=== PATIENT | female | born 1955 | race Caucasian/White ===

== ENCOUNTER 2020-03-07 13:30 | Outpatient (CLI) | payer OTHER, SELFPAY ==
--- NOTE | ~2020-03-07 | XR_ITS ---
EXAMINATION: XR chest 2V 03/07/2020 15:03 INDICATION: Shortness of breath. Hypertension. PROCEDURE: 2 view chest COMPARISON: 10/31/2005 FINDINGS: The lungs are clear. The cardiomediastinal silhouette is within normal limits. There are no pleural effusions. There is no pneumothorax suspected. IMPRESSION: 1: NO ACUTE CARDIOPULMONARY DISEASE. Reviewed, dictated and finalized at location A.
--- NOTE | ~2020-03-07 | US_ITS ---
EXAMINATION:US venous doppler LE BI INDICATION:Leg edema TECHNIQUE: Multiple grayscale, color flow and Doppler images of the lower extremity deep venous syste ms were obtained and reviewed. COMPARISON:No prior studies for comparison. FINDINGS: The common femoral, superficial femoral and popliteal veins demonstrate normal respiratory variation, augmentation and compressibility. Color flow is also seen within the posterior tibial, pe roneal, greater saphenous and profunda veins. IMPRESSION: 1: No lower extremity deep venous thrombosis. Reviewed, dictated and finalized at location A.
== END 2020-03-07 13:31 | disposition home or self-care (01) ==
PROVIDERS: Visit Provider Registered Nurse
DX: R06.02 Shortness of breath (principal); I10 Essential (primary) hypertension; R60.0 Localized edema
CPT/HCPCS: 71046; 93970

== ENCOUNTER 2021-05-19 13:01 | Emergency (ER) | payer OTHER, SELFPAY ==
--- NOTE | ~2021-05-19 | XR_ITS ---
EXAMINATION: XR chest 2V DATE: 05/19/2021 14:03 INDICATION: Shortness of breath. TECHNIQUE: Frontal and lateral views of the chest were obtained. COMPARISON: Chest 2 views 03/07/2020 FINDINGS: There is no pneumonia, pleural effusion, or pneumothorax. Cardiomegaly is noted. IMPRESSION: 1. Cardiomegaly. Reviewed, dictated and finalized at location B. IMPRESSION: 1. Cardiomegaly.
[2021-05-19 12:59] VITALS: BP 150/50; PULSE 57; RESP 20; TEMP 36.8; O2SAT 100
--- NOTE | 2021-05-19 13:07 | ECG_ITS ---
Measurements Intervals [place] Rate: 54 P: [place]: 0 QRS: 34 QRSD: 98 T: -3 QT: 477 QTc: 455 Interpretive Statements SINUS BRADYCARDIA MINIMAL Q WAVES- INFERIOR LEADS BASELINE ARTIFACT- I, II, III, AVR, AVL, AVF, V1-V6 BORDERLINE ECG Electronically Signed On 05-19-2021 13:58:55 CDT by Harsha Leblanc D.O.
--- NOTE | 2021-05-19 13:30 | ED.SOB ---
HPI - SOB/Dyspnea General Chief Complaint: Shortness of Breath/Dyspnea Stated Complaint: SOB/CHEST PRESSURE Time Seen by Provider: 05/19/21 13:28 Source: patient and EMS Mode of arrival: EMS Limitations: no limitations History of Present Illness HPI Narrative: The patient is a 66 yo male who presents for evaluation of dyspnea and leg swelling. Patient reports a history of hypertension, hyperlipidemia, states she has been diagnosed with double pneumonia and has recovered from that, did not require hospitalization. States that this was never diagnosed as Covid, was managed outpatient by her primary care physician. Patient states that she has had epigastric chest pain over the past 3 months as well as worsening shortness of breath over the past few days. She reports bilateral leg swelling without redness or bruising. She is not on any current anticoagulation. She denies recent fever, chills or rhinorrhea. Patient is not vaccinated for Covid. She states that she recently had an abnormal ALLYSON titer drawn her primary care physician and is waiting to follow-up with rheumatology. Related Data Home Medications Medication Instructions Recorded Confirmed atorvastatin 10 mg PO DAILY 05/19/21 05/19/21 escitalopram oxalate 20 mg PO DAILY 05/19/21 05/19/21 furosemide 20 mg PO DAILY 05/19/21 05/19/21 metoprolol succinate 50 mg PO DAILY 05/19/21 05/19/21 oxybutynin chloride 5 mg PO DAILY 05/19/21 05/19/21 potassium chloride 10 meq PO DAILY 05/19/21 05/19/21 Allergies Allergy/AdvReac Type Severity Reaction Status Date / Time Sulfa (Sulfonamide Allergy Mild RASH ALL Verified 05/19/21 13:16 Antibiotics) OVER Penicillins Allergy Unknown RASH ALL Verified 05/19/21 13:16 OVER Review of Systems Review of Systems: CONSTITUTIONAL: Denies fever, chills, or sweats. EYES: Denies visual changes, redness, or discharge. ENT: Denies rhinorrhea, congestion, sore throat, or otalgia. CARDIOVASCULAR: Reports lower chest pain, epigastric pain, denies palpitations, reports bilateral lower extremity edema RESPIRATORY: Denies cough, reports shortness of breath, worse with exertion GASTROINTESTINAL: Denies abdominal pain, nausea, vomiting, or diarrhea. GENITOURINARY: Denies dysuria or hematuria. SKIN: Denies rash or itching. MUSCULOSKELETAL: Denies back pain, joint pain, or myalgia. NEUROLOGIC: Denies headache, numbness, or weakness. [facility] Social History Social History Gender identity (if verbalized by the patient): Female Exam Narrative: GENERAL: Awake, alert, conversant HEAD: Normocephalic, atraumatic. EYES: PERRLA and EOMI. ENT: Nares clear, no rhinorrhea or epistaxis. Mucous membranes moist. NECK: Supple. CHEST: No respiratory distress, breathing even and non labored, no crackles HEART: Regular rate, sinus rhythm ABDOMEN:Non distended, non tender EXTREMITIES: Normal range of motion. Bilateral pitting edema, 1+ to the mid shins, no calf pain or erythema bilaterally SKIN: Warm, dry, no rash. NEURO:No focal deficits. Alert and oriented x3 Course Vital Signs Vital signs: Vital Signs Temperature 36.8 C 05/19/21 12:59 Pulse Rate 57 L 05/19/21 12:59 Respiratory Rate 20 05/19/21 12:59 Blood Pressure 150/50 H 05/19/21 12:59 Pulse Oximetry 100 05/19/21 12:59 Temperature 36.8 C 05/19/21 12:59 Pulse Rate 52 L 05/19/21 15:42 Respiratory Rate 20 05/19/21 15:42 Blood Pressure 150/50 H 05/19/21 12:59 Pulse Oximetry 96 05/19/21 15:42 MDM - SOB/Dyspnea MDM Narrative Medical decision making narrative: Patient presenting for evaluation of shortness of breath that is resolved at the time of assessment. Patient also reporting bilateral edema and she was seen at a primary care physician's office and referred to our facility for DVT rule out. At this point, D-dimer is negative. BNP is mildly elevated but no pleural effusions or evidence of significant pulmonary edema on chest x-ray. No consolidating process or
[2021-05-19 14:15] LABS: INR 0.9; Prothrombin Time 12.5 Seconds (11.1-14.7)
[2021-05-19 14:32] LABS: Anion Gap 6 mmol/L (8-16); Blood Urea Nitrogen 19 mg/dL (7-17); Calcium 9.6 mg/dL (8.4-10.2); Carbon Dioxide 25 mmol/L (22-30); Chloride 106 mmol/L (98-107); Estimated CRCL calculation 60 ml/min; Estimated Glomerular Filt Rate > 60; Glucose 100 mg/dL (65-110); Potassium 3.3 mmol/L (3.4-5.0); Sodium 137 mmol/L (137-145)
[2021-05-19 14:33] VITALS: PULSE 50; RESP 10; O2SAT 97
[2021-05-19 14:41] LABS: Troponin I < 0.012 ng/mL (0.000-0.034)
[2021-05-19 14:56] LABS: NT Pro B Type Natriuretic Pept 713 pg/mL (5-100)
[2021-05-19 15:08] LABS: D Dimer 0.47 ug/mL (<0.48)
[2021-05-19 15:31] LABS: Basophils Absolute Auto 0.1 K/mm3 (0.0-0.1); Basophils Percent Auto 0.5 % (0.2-1.2); Eosinophils Absolute Auto 0.2 K/mm3 (0-0.3); Eosinophils Percent Auto 1.6 % (0-4.4); Hematocrit 34.8 % (37.0-47.0); Hemoglobin 10.9 g/dL (12.0-15.0); Immature Granulocyte Absolute 0.04 K/mm3 (0.00-0.031); Immature Granulocyte Percent A 0.3 % (0-0.5); Lymphocytes Absolute Auto 3.37 K/mm3 (0.9-3.2); Mean Corpuscular HGB Conc 31.3 g/dl (32-36); Mean Corpuscular Hemoglobin 27.9 pg (26-34); Mean Corpuscular Volume 89.2 fl (80-100); Monocytes Absolute Auto 0.8 K/mm3 (0.1-0.6); Monocytes Percent Auto 6.7 % (2.6-8.5); Neutrophils Absolute Auto 7.6 K/mm3 (1.3-6.7); Neutrophils Percent Auto 62.9 % (45.5-73.1); Platelet Count Result 223 k/mm3 (150-375); Red Cell Distribution Width 13.6 % (11.5-14.5); White Blood Count 12.1 K/mm3 (4.5-10.0)
[2021-05-19 15:42] VITALS: PULSE 52; RESP 20; O2SAT 96
== END 2021-05-19 16:33 | disposition home or self-care (01) ==
PROVIDERS: Emergency Medicine; Emergency Provider Emergency Medicine
DX: R60.9 Edema, unspecified (principal); R06.00 Dyspnea, unspecified
CPT/HCPCS: 36415; 71046; 80048; 83880; 84484; 85025; 85380; 85610; 85730; 93005; 99284

== ENCOUNTER 2021-10-11 14:36 | Emergency (ER) | payer MEDICARE, SELFPAY ==
[2021-10-11] VITALS (9 sets, daily range): BP systolic 117–148; BP diastolic 52–86; PULSE 64–77; RESP 18–24; TEMP 37; O2SAT 95–98
--- NOTE | ~2021-10-11 | XR_ITS ---
EXAMINATION: XR chest 1V portable INDICATION: Shortness of breath, COVID 19 positive TECHNIQUE: Portable AP chest at 1520 hours COMPARISON: 05/19/2021 FINDINGS: There are airspace opacities throughout all lung zones. Cardiomegaly is noted. There is no pleural effusion or pneumothorax. IMPRESSION: 1. Diffuse lung disease, consistent with COVID 19 pneumonia. 2. Cardiomegaly. 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
--- NOTE | ~2021-10-11 | CT_ITS ---
EXAMINATION: CTA chest PE protocol DATE: 10/11/2021 18:16 INDICATION: Shortness of breath TECHNIQUE: Computed tomography angiography (CTA) of the chest was performed with 100 mL Omnipaque-350 intravenous contrast timed to evaluate the pulmonary arteries. Coronal maximum intensity projection 3D-reconstructions were created by the technologist. The dose-length product (DLP) was 718.53 mGy-cm. Automated exposure control and iterative reconstruction technique were employed. COMPARISON: None. FINDINGS: The pulmonary arteries are moderately well-opacified. No pulmonary embolus is identified. T here are groundglass opacities scattered throughout all lung zones. No pleural effusion or pneumothor ax is identified. There is mild mediastinal and bilateral hilar lymphadenopathy. Cardiomegaly is note d. There is calcified coronary artery atherosclerosis. There is a small sliding hiatal hernia. There is moderate thoracic spondylosis. IMPRESSION: 1. No pulmonary embolus identified. 2. Diffuse lung disease, consistent with COVID 19 pneumonia. 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
[2021-10-11 15:25] LABS: Basophils Percent Auto 0.2 % (0.2-1.2); Hematocrit 35.7 % (37.0-47.0); Hemoglobin 11.6 g/dL (12.0-15.0); Immature Granulocyte Absolute 0.02 K/mm3 (0.00-0.031); Immature Granulocyte Percent A 0.4 % (0-0.5); Lymphocytes Percent Auto 37.8 % (18.3-44.2); Mean Corpuscular HGB Conc 32.5 g/dl (32-36); Mean Corpuscular Hemoglobin 27.9 pg (26-34); Mean Corpuscular Volume 85.8 fl (80-100); Mean Platelet Volume 9.4 fl (7.4-10.4); Monocytes Absolute Auto 0.5 K/mm3 (0.1-0.6); Monocytes Percent Auto 9.4 % (2.6-8.5); Neutrophils Absolute Auto 2.6 K/mm3 (1.3-6.7); Neutrophils Percent Auto 52.2 % (45.5-73.1); Platelet Count Result 157 k/mm3 (150-375); Red Blood Count 4.16 M/mm3 (4.2-5.4); Red Cell Distribution Width 14.8 % (11.5-14.5)
[2021-10-11 15:35] LABS: Alanine Aminotransferase 19 U/L (4-35); Albumin Level 4.1 g/dL (3.5-5.1); Alkaline Phosphatase 69 U/L (38-126); Anion Gap 8 mmol/L (8-16); Aspartate Amino Transferase 34 U/L (14-36); Bilirubin,Total 1.3 mg/dL (0.2-1.3); Blood Urea Nitrogen 24 mg/dL (7-17); Calcium 8.8 mg/dL (8.4-10.2); Carbon Dioxide 23 mmol/L (22-30); Chloride 101 mmol/L (98-107); Estimated CRCL calculation 46 ml/min; Estimated Glomerular Filt Rate 45; Glucose 111 mg/dL (65-110); Potassium 4.3 mmol/L (3.4-5.0); Sodium 132 mmol/L (137-145)
[2021-10-11] MEDS: SODIUM CHLORIDE 0.9% IV 1,000 ML 999 ML IV CONT ×2 (15:50→18:30)
[2021-10-11 17:03] LABS: Add Urine Microscopic? NO; Appearance Urine Clear (Clear); Bilirubin Urine Negative (Negative); Blood Urine Negative (Negative); Color Urine Yellow (Yellow); Glucose Urine UA Negative (Negative); Ketones Urine Negative (Negative); Leukocyte Esterase Ur Negative LEU/UL (Negative); Nitrate Urine Negative (Negative); Protein Urine Negative (Negative); Specific Grav Ur 1.016 (1.001-1.035); Urobilinogen Urine Negative mg/dL (<2.0)
[2021-10-11 17:08] LABS: Lactic Acid Reflex 0.7 mmol/L (0.7-2.1)
[2021-10-11 17:30] LABS: D Dimer 0.49 ug/mL (<0.48)
[2021-10-11 18:11] LABS: Procalcitonin 0.2 ng/mL
--- NOTE | 2021-10-11 19:20 | PC.NURSE ---
Assumed care of pt at this time. Pt ambulated to bathroom in no obvious distress. Updated on POC.
--- NOTE | 2021-10-11 19:20 | PC.NURSE ---
Report given to ARTEMIO Ribeiro
--- NOTE | 2021-10-11 20:01 | ED.GENADULT ---
HPI - General Adult General Chief complaint: Upper Respiratory Infection Stated complaint: COVID Time Seen by Provider: 10/11/21 14:57 Source: patient and RN notes reviewed Mode of arrival: ambulatory Limitations: no limitations History of Present Illness HPI narrative: Patient is a 66-year-old female sent over from primary care PE mask for COVID symptoms patient was diagnosed with COVID the prior day was having follow-up today had repeat chest radiograph showing pneumonia was referred to the emergency department given that she kept falling asleep and there was concern for hypoxemia on arrival patient is not hypoxemic on room air she complains of fatigue and COVID symptoms denies chest pain notes short of breath lives at home with family. Patient was not vaccinated Related Data Home Medications Medication Instructions Recorded Confirmed atorvastatin 10 mg PO DAILY 05/19/21 05/19/21 escitalopram oxalate 20 mg PO DAILY 05/19/21 05/19/21 furosemide 20 mg PO DAILY 05/19/21 05/19/21 metoprolol succinate 50 mg PO DAILY 05/19/21 05/19/21 oxybutynin chloride 5 mg PO DAILY 05/19/21 05/19/21 potassium chloride 10 meq PO DAILY 05/19/21 05/19/21 Allergies Allergy/AdvReac Type Severity Reaction Status Date / Time Sulfa (Sulfonamide Allergy Mild RASH ALL Verified 10/11/21 14:42 Antibiotics) OVER Penicillins Allergy Unknown RASH ALL Verified 10/11/21 14:42 OVER Review of Systems Review of Systems: All systems reviewed & are unremarkable except as noted in HPI and below PMFSH Past Medical History Medical History (Updated 10/11/21 @ 20:39 by Misha Bloom PA-C) Hypertension Social History Social History (Updated 10/11/21 @ 20:36 by Misha Bloom PA-C) Smoking status: Never smoker Gender identity (if verbalized by the patient): Female Exam Narrative: GENERAL: ill-appearing, well-nourished, and in no acute distress. HEAD: Normocephalic, atraumatic. EYES: PERRLA and EOMI. ENT: Nares clear, no rhinorrhea or epistaxis. Mucous membranes moist. Oropharynx without tonsillar hypertrophy exudate or other lesions. NECK: Supple. No adenopathy or masses. CHEST: Clear to auscultation. No respiratory distress. Slight crackles in the lung bases no wheezing HEART: Regular rate and rhythm. No murmur heard. Normal peripheral pulses. ABDOMEN: Soft, nontender, nondistended, normal active bowel sounds. EXTREMITIES: Normal range of motion. No edema. SKIN: Warm, dry, no rash. NEURO: No focal deficits. Alert and oriented x3. Cranial nerves II through XII grossly intact. Normal speech and gait PSYCH: Normal mood and affect. Course Course Emergency Course: Patient was able to ambulate without becoming hypoxic she upon return to the room also maintains an oxygenation of 95% on room air there is no tachycardia she is afebrile nontoxic-appearing without emesis she will be discharged home with outpatient follow-up given strict indications for return she is aware of case findings treatment plan and diagnosis Vital Signs Vital signs: Vital Signs Temperature 98.6 F 10/11/21 14:46 Pulse Rate 77 10/11/21 14:46 Respiratory Rate 22 H 10/11/21 14:46 Blood Pressure 148/60 H 10/11/21 14:46 Pulse Oximetry 98 10/11/21 14:46 Temperature 98.6 F 10/11/21 14:46 Pulse Rate 71 10/11/21 19:25 Respiratory Rate 20 10/11/21 19:25 Blood Pressure 128/66 10/11/21 19:25 Pulse Oximetry 97 10/11/21 19:25 Medical Decision Making MDM Narrative Medical decision making narrative: Patient in the room nondistressed aware of case findings treatment plan diagnosis CTA did not reveal any pulmonary embolism there was some COVID-pneumonia she otherwise does not have other high risk changes she was hydrated she has been able to maintain normal oxygenation and will be discharged home given strict indications for return Vital Signs Vital Signs: Vital Signs Temperature 98.6 F 10/11/21 14:46 Pulse Rate 77 10/11
--- NOTE | 2021-10-11 20:20 | PC.NURSE ---
Pt walked in virgen with pulse ox. Pt Spo2 96% during walk. Pt did have coughing fit where pt Spo2 dropped to 90%. Pt was able to recover to 96% after sitting down on bed. EDP made aware.
== END 2021-10-11 21:40 | disposition home or self-care (01) ==
PROVIDERS: Emergency Medicine Emergency Medical Services; Emergency Provider Emergency Medicine
DX: U07.1 COVID-19 (principal); J12.82 Pneumonia due to coronavirus disease 2019; I10 Essential (primary) hypertension
CPT/HCPCS: 36415; 71045; 71275; 80053; 81003; 83605; 84145; 85025; 85380; 96361; 96374; 99284; J1100; J7030; Q9967

== ENCOUNTER 2022-02-14 17:22 | Emergency (ER) | payer MEDICARE, SELFPAY ==
[2022-02-14 17:31] VITALS: BP 142/93; PULSE 91; RESP 20; TEMP 37; O2SAT 100
[2022-02-14 18:53] LABS: Appearance Urine Clear (Clear); Bilirubin Urine Negative (Negative); Blood Urine 1+ (Negative); Color Urine Yellow (Yellow); Glucose Urine UA Negative (Negative); Ketones Urine Negative (Negative); Leukocyte Esterase Ur 1+ LEU/UL (Negative); Nitrate Urine Negative (Negative); Protein Urine Negative (Negative); Specific Grav Ur 1.015 (1.001-1.035); Urobilinogen Urine 0.2 mg/dL (<2.0)
[2022-02-14 18:57] LABS: Bacteria Urine Trace /hpf; Mucus Urine Rare /lpf; RBC Urine 0-2 /hpf (0-2); Squamous Epithelial Cell Urine Few /hpf (Few)
[2022-02-14 19:00] LABS: Add Urine Microscopic? YES
--- NOTE | 2022-02-14 19:19 | ED.FEMALEGU ---
HPI - Female Genitourinary General Chief complaint: Vaginal Bleeding <Lore Zafar PA-C - Last Filed: 02/15/22 02:21> Stated complaint: vaginal bleeding <Lore Zafar PA-C - Last Filed: 02/15/22 02:21> Time Seen by Provider: 02/14/22 18:27 <Lore Zafar PA-C - Last Filed: 02/15/22 02:21> History of Present Illness HPI Narrative: Patient is a 67-year-old female with a history of hysterectomy 70s here for evaluation of bleeding in the toilet tissue when she wipes. Patient states for the past 2 days she has noted bright red blood per tissue, and noted drips in the toilet bowl. Patient denies any blood mixed in her stool, pain with defecation, constipation, diarrhea, abdominal pain, dysuria, hematuria. She did not she has some very mild left low back pain that resolved with Tylenol. Patient has never had a colonoscopy, she has taken two FOBT screening tests in the past decade, one of which has resulted positive, but she did not have follow-up on this test. Does note an intentional 20 pound weight loss with the keto diet, but denies night sweats, history of malignancy. <ED Veliz Last Filed: 02/15/22 02:21> Related Data Home medications: Home Medications Medication Instructions Recorded Confirmed atorvastatin 10 mg PO DAILY 05/19/21 05/19/21 escitalopram oxalate 20 mg PO DAILY 05/19/21 05/19/21 furosemide 20 mg PO DAILY 05/19/21 05/19/21 metoprolol succinate 50 mg PO DAILY 05/19/21 05/19/21 oxybutynin chloride 5 mg PO DAILY 05/19/21 05/19/21 potassium chloride 10 meq PO DAILY 05/19/21 05/19/21 <Lore Zafar PA-C - Last Filed: 02/15/22 02:21> Allergies/Adverse reactions: Allergies Allergy/AdvReac Type Severity Reaction Status Date / Time Sulfa (Sulfonamide Allergy Mild RASH ALL Verified 02/14/22 18:30 Antibiotics) OVER Penicillins Allergy Unknown RASH ALL Verified 02/14/22 18:30 OVER <Lore Zafar PA-C - Last Filed: 02/15/22 02:21> Review of Systems Review of Systems: Gen: Denies fevers or chills Eyes: Denies eye pain or visual change ENT: Denies congestion Respiratory: Denies shortness of breath or cough CV: Denies chest pain or palpitations GI: Denies abdominal pain nausea, emesis or diarrhea : Reports bleeding on toilet tissue. Denies burning, urgency, frequency or hematuria Musculoskeletal: Denies back pain or muscle pain Neuro: Denies numbness, tingling, weakness or focal weakness Skin: Denies rash Except as documented, all other systems reviewed and negative <Lore Zafar PA-C - Last Filed: 02/15/22 02:21> All systems reviewed & are unremarkable except as noted in HPI and below <Lore Zafar PA-C - Last Filed: 02/15/22 02:21> [facility] Past Medical History Medical History: Medical History Hypertension <Lore Zafar PA-C - Last Filed: 02/15/22 02:21> Social History Social History: Social History Smoking status: Never smoker Gender identity (if verbalized by the patient): Female <Lore Zafar PA-C - Last Filed: 02/15/22 02:21> Exam Narrative: APPEARANCE: No acute distress, nontoxic, resting in bed EYES: EOMI HEENT: Normocephalic, atraumatic, OMM RESPIRATORY: No respiratory distress Clear to auscultation bilaterally with no rhonchi wheezing or rales. CARDIOVASCULAR: Regular rate and rhythm without murmurs rubs or gallops. ABDOMINAL: Soft, nontender, nondistended, no rebound or guarding MUSCULOSKELETAl: No midline tenderness to palpation along CT or L-spine. No paraspinal muscle tenderness. No CVA tenderness. Moves all extremities. No clubbing, cyanosis or edema. 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 Hemoccult negative. No external hemorrhoid. No blood noted in vaginal vault. NEURO: Awake and alert. Following commands, speech
[2022-02-14 19:32] LABS: Basophils Absolute Auto 0.1 K/mm3 (0.0-0.1); Basophils Percent Auto 0.6 % (0.2-1.2); Eosinophils Absolute Auto 0.3 K/mm3 (0-0.3); Eosinophils Percent Auto 2.2 % (0-4.4); Hematocrit 35.9 % (37.0-47.0); Hemoglobin 11.3 g/dL (12.0-15.0); Immature Granulocyte Absolute 0.03 K/mm3 (0.00-0.031); Immature Granulocyte Percent A 0.3 % (0-0.5); Lymphocytes Absolute Auto 3.68 K/mm3 (0.9-3.2); Lymphocytes Percent Auto 32.7 % (18.3-44.2); Mean Corpuscular HGB Conc 31.5 g/dl (32-36); Mean Corpuscular Hemoglobin 28.3 pg (26-34); Mean Corpuscular Volume 89.8 fl (80-100); Mean Platelet Volume 9.6 fl (7.4-10.4); Monocytes Absolute Auto 0.9 K/mm3 (0.1-0.6); Monocytes Percent Auto 7.8 % (2.6-8.5); Neutrophils Absolute Auto 6.3 K/mm3 (1.3-6.7); Neutrophils Percent Auto 56.4 % (45.5-73.1); Platelet Count Result 235 k/mm3 (150-375); Red Cell Distribution Width 13.9 % (11.5-14.5); White Blood Count 11.3 K/mm3 (4.5-10.0)
[2022-02-14 19:49] LABS: INR 1.1
[2022-02-14 20:25] LABS: Alanine Aminotransferase 16 U/L (6-35); Albumin Level 4.3 g/dL (3.5-5.1); Alkaline Phosphatase 81 U/L (38-126); Anion Gap 10 mmol/L (8-16); Aspartate Amino Transferase 30 U/L (14-36); Bilirubin,Total 0.8 mg/dL (0.2-1.3); Blood Urea Nitrogen 44 mg/dL (7-17); Calcium 9.5 mg/dL (8.4-10.2); Carbon Dioxide 25 mmol/L (22-30); Chloride 104 mmol/L (98-107); Estimated CRCL calculation 34 ml/min; Estimated Glomerular Filt Rate 32; Glucose 110 mg/dL (65-110); Potassium 4.9 mmol/L (3.4-5.0); Sodium 139 mmol/L (137-145)
[2022-02-14 21:34] VITALS: BP 137/73; PULSE 72; RESP 18; O2SAT 99
== END 2022-02-14 21:38 | disposition home or self-care (01) ==
PROVIDERS: Emergency Medicine; Physician Assistant; Emergency Provider Emergency Medicine; PCP Student in an Organized Health Care Education/Training Program
DX: N39.0 Urinary tract infection, site not specified (principal); I10 Essential (primary) hypertension; Z90.710 Acquired absence of both cervix and uterus
CPT/HCPCS: 36415; 80053; 81001; 85025; 85610; 85730; 87077; 87086; 87186; 99283

== ENCOUNTER → 2023-09-24 12:21 | Outpatient (CLI) | payer OTHER, SELFPAY ==
--- NOTE | ~2023-09-24 | MM_ITS ---
EXAMINATION: MM screening hong BI w karen HISTORY: Screening mammogram TECHNIQUE: Craniocaudal and mediolateral oblique 3-D tomosynthesis images were obtained and synthetic 2-D images were generated. CAD analysis was submitted and interpreted. COMPARISON: No prior mammogram is available for comparison at this institution. BREAST PARENCHYMAL COMPOSITION: The breasts are almost entirely fatty. FINDINGS: Occasional bilateral benign calcifications. There is no evidence of suspicious mass, calcif ication, or architectural distortion to suggest malignancy in either breast. There has been no suspic ious interval change. IMPRESSION: 1. No mammographic evidence of malignancy. 2. Recommend routine screening mammography in one year. 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
== END ==
PROVIDERS: PCP Student in an Organized Health Care Education/Training Program; Visit Provider Student in an Organized Health Care Education/Training Program
DX: Z12.31 Encounter for screening mammogram for malignant neoplasm of breast (principal)
CPT/HCPCS: 77063; 77067

== ENCOUNTER 2024-01-03 10:36 | Emergency (ER) | payer MEDICARE, SELFPAY ==
[2024-01-03] VITALS (11 sets, daily range): BP systolic 141–176; BP diastolic 75–92; PULSE 72–105; RESP 14–19; TEMP 36.7–36.8; O2SAT 97–100
--- NOTE | ~2024-01-03 | CT_ITS ---
EXAMINATION: CT brain wo con DATE: 01/03/2024 13:36 INDICATION: Headache with confusion TECHNIQUE: Computed tomography (CT) of the head was performed without intravenous contrast. Sagittal and coronal reconstructions were performed. The mA was adjusted according to patient size. Iterative reconstruction technique was employed. The dose-length product was 681.00 mGy-cm. COMPARISON: None FINDINGS: No acute intracranial hemorrhage, acute infarction or abnormal extra axial fluid collection. There is mild scattered white matter hypoattenuation consistent with chronic small vessel ischemic disease. S ymmetric prominence of the sulci and and subarachnoid spaces overlying the convexities consistent wit h mild age-appropriate diffuse cerebral volume loss. Ventricles are normal and symmetric. No mass/mas s effect. Right mastoid effusion. Changes of bilateral intraocular lens replacement. Mild mucosal thi ckening the left ethmoid sinus and small mucous retention cyst in the right sphenoid sinus. IMPRESSION: 1. No acute intracranial process. 2. Right mastoid effusion. Reviewed, dictated and finalized at location A.
--- NOTE | ~2024-01-03 | XR_ITS ---
XR chest 2V DATE: 01/03/2024 11:01 INDICATION: Shortness of breath and cough for several weeks TECHNIQUE: 2 views COMPARISON: 10/11/2021 CTA chest and 10/11/2021 portable AP chest and not available from the archive at this time FINDINGS: Heart size is within normal range. Is aortic calcification and unfolding. No hilar or media stinal enlargement. No pulmonary infiltrate or consolidation, pleural effusion or pulmonary vascular congestion or pneumo thorax is detected. Included skeletal structures are unremarkable. IMPRESSION: No active cardiac pulmonary disease Aortic atherosclerosis Reviewed, dictated and finalized at location B.
--- NOTE | 2024-01-03 10:39 | ECG_ITS ---
Measurements Intervals [place] Rate: 87 P: 22 MI: 205 QRS: 45 QRSD: 96 T: 70 QT: 385 QTc: 466 Interpretive Statements SINUS RHYTHM NONSPECIFIC ST & T-WAVE ABNORMALITY ABNORMAL ECG COMPARED TO ECG 05/19/2021 13:13:45 INCREASED HEART RATE, NO OTHER SIGNIFICANT DIFFERENCE Electronically Signed On 01-03-2024 12:34:16 CDT by Moo Longo M.D.
[2024-01-03] MEDS: ASPIRIN 81 MG CHEWABLE TABLET 324 MG PO (10:49)
[2024-01-03 10:57] LABS: Basophils Absolute Auto 0.1 K/mm3 (0.0-0.1); Basophils Percent Auto 0.4 % (0.2-1.2); Eosinophils Absolute Auto 0.2 K/mm3 (0-0.3); Eosinophils Percent Auto 1.5 % (0-4.4); Hematocrit 37.8 % (37.0-47.0); Hemoglobin 11.8 g/dL (12.0-15.0); Immature Granulocyte Absolute 0.05 K/mm3 (0.00-0.031); Immature Granulocyte Percent A 0.4 % (0-0.5); Lymphocytes Absolute Auto 2.98 K/mm3 (0.9-3.2); Lymphocytes Percent Auto 24.9 % (18.3-44.2); Mean Corpuscular HGB Conc 31.2 g/dl (32-36); Mean Corpuscular Hemoglobin 27.2 pg (26-34); Mean Corpuscular Volume 87.1 fl (80-100); Mean Platelet Volume 9.7 fl (7.4-10.4); Monocytes Absolute Auto 0.6 K/mm3 (0.1-0.6); Monocytes Percent Auto 5.2 % (2.6-8.5); Neutrophils Absolute Auto 8.1 K/mm3 (1.3-6.7); Neutrophils Percent Auto 67.6 % (45.5-73.1); Platelet Count Result 210 k/mm3 (150-375); Red Blood Count 4.34 M/mm3 (4.2-5.4); Red Cell Distribution Width 14.4 % (11.5-14.5)
[2024-01-03 11:07] LABS: INR 0.9; Prothrombin Time 12.7 Seconds (11.1-14.7)
[2024-01-03 11:10] LABS: Lipase 86 U/L (23-300)
[2024-01-03 11:11] LABS: Partial Thromboplastin Time 28.4 Seconds (22.3-36.8)
[2024-01-03 11:15] LABS: Alanine Aminotransferase 20 U/L (6-35); Albumin Level 4.1 g/dL (3.5-5.1); Alkaline Phosphatase 86 U/L (38-126); Anion Gap 9 mmol/L (4-12); Aspartate Amino Transferase 23 U/L (14-36); Blood Urea Nitrogen 22 mg/dL (7-17); Calcium 9.2 mg/dL (8.4-10.2); Carbon Dioxide 25 mmol/L (22-30); Chloride 105 mmol/L (98-107); Estimated CRCL calculation 58 ml/min; Estimated Glomerular Filt Rate > 60; Glucose 128 mg/dL (65-110); Potassium 3.8 mmol/L (3.4-5.0); Sodium 139 mmol/L (137-145)
[2024-01-03 11:23] LABS: Troponin I < 0.012 ng/mL (0.000-0.034)
[2024-01-03] MEDS: IPRATROPIUM 0.5 MG/ALBUTEROL SULFATE 2.5 MG AMPUL.NEB 3 ML 12 ML INHALATION (13:40)
[2024-01-03] MEDS: dexAMETHasone SOD PHOS INJ 10 MG/ML 1 ML VIAL IV PUSH (13:55)
[2024-01-03] MEDS: MAGNESIUM SULF 2 GM/WATER 50ML 2 GM/50 ML BAG IVPB (13:55)
--- NOTE | 2024-01-03 13:56 | ED.GENADULT ---
HPI - General Adult General Chief complaint: Shortness of Breath/Dyspnea Stated complaint: sob Time Seen by Provider: 01/03/24 12:56 Limitations: intoxication History of Present Illness HPI narrative: This is a 68-year-old female presenting with shortness of breath. She says she has had a cough for about 9 weeks. her primary care physician is treated with a course of antibiotics and started her on breathing treatments which she believes has started to help. Today while she was at work, she started eating lunch and she developed a headache in the back her head. She then became very flushed, anxious, and had shortness breath, and sharp chest pain. this all resolved without intervention. All symptoms have since resolved she is resting comfortably in bed. She is concerned she may have had a stroke Related Data Home Medications Medication Instructions Recorded Confirmed atorvastatin 10 mg tablet 10 mg PO DAILY 05/19/21 05/19/21 escitalopram oxalate 20 mg tablet 20 mg PO DAILY 05/19/21 05/19/21 furosemide 20 mg tablet 20 mg PO DAILY 05/19/21 05/19/21 metoprolol succinate 50 mg 50 mg PO DAILY 05/19/21 05/19/21 tablet,extended release 24 hr oxybutynin chloride 5 mg 5 mg PO DAILY 05/19/21 05/19/21 tablet,extended release 24 hr potassium chloride 10 mEq 10 meq PO DAILY 05/19/21 05/19/21 tablet,extended release Allergies Allergy/AdvReac Type Severity Reaction Status Date / Time Sulfa (Sulfonamide Allergy Mild RASH ALL Verified 02/14/22 18:30 Antibiotics) OVER Penicillins Allergy Unknown RASH ALL Verified 02/14/22 18:30 OVER [facility] Past Medical History Medical History Asthma Hypertension Social History Social History Smoking status: Never smoker Gender identity (if verbalized by the patient): Female Exam Narrative: APPEARANCE: No apparent distress. Head: atraumatic. EYES: EOMI, NOSE: Atraumatic NECK: Trachea midline RESPIRATORY: speaking in full sentences, scattered wheezing in all cristobal CARDIOVASCULAR: RRR, no peripheral edema ABDOMINAL: Non-distended MUSCULOSKELETAl: No obvious deformities NEURO: Alert. Cranial nerves 2-12 grossly intact. Sensation light touch, motor function cerebellar function intact for 4 extremities. Gait exam was normal. NIH 0 SKIN:: Warm, dry. Normal color PSYCHIATRIC: Normal affect Course Vital Signs Vital signs: Vital Signs Temperature 98.1 F 01/03/24 10:39 Pulse Rate 94 01/03/24 10:39 Respiratory Rate 18 01/03/24 10:39 Blood Pressure 167/78 H 01/03/24 10:39 Pulse Oximetry 97 01/03/24 10:39 Oxygen Delivery Room Air 01/03/24 10:39 Temperature 98.1 F 01/03/24 10:39 Pulse Rate 79 01/03/24 15:00 Respiratory Rate 14 01/03/24 15:00 Blood Pressure 176/92 H 01/03/24 13:15 Pulse Oximetry 100 01/03/24 15:00 Oxygen Delivery Room Air 01/03/24 13:06 Medical Decision Making MDM Narrative Medical decision making narrative: -Course: This is a 68-year-old female presenting with shortness of breath and then a short period of blurry vision/flushing/chest pain/ shortness of breath that resolved without intervention. On exam the patient was wheezy and was given a breathing treatment. Her neurologic exam is normal and she has an NIH of 0. No vision changes. Patient's workup here including CT head, laboratory studies troponin EKG and chest x-ray were unremarkable. On re-evaluation the patient feels better And is asymptomatic. At this time there is an unknown etiology of her episode. Presentation is not consistent with TIA/CVA. We discussed admission versus discharge patient is comfortable being discharged to follow up with her primary care physician. patient would like a note stating she can return to work. Given return precautions. -DDX includes but is not limited to: asthma exacerbation, anxiety attack, TIA,
--- NOTE | 2024-01-03 14:06 | ECG_ITS ---
Measurements Intervals [place] Rate: 83 P: 16 MS: 198 QRS: 32 QRSD: 98 T: 53 QT: 410 QTc: 482 Interpretive Statements SINUS RHYTHM WITH OCCASIONAL SUPRAVENTRICULAR PREMATURE COMPLEXES NONSPECIFIC T-WAVE ABNORMALITY COMPARED TO ECG 01/03/2024 10:42:09 NO SIGNIFICANT CHANGES Electronically Signed On 01-04-2024 13:18:55 CDT by Antonella Arellano M.D.
[2024-01-03 14:29] LABS: Troponin I < 0.012 ng/mL (0.000-0.034)
[2024-01-03 14:44] LABS: Influenza A QL RT-PCR Negative (Negative); Influenza B QL RT-PCR Negative (Negative); RSV RNA, RT-PCR Negative (Negative); SARS-CoV-2 RNA PCR Negative (Negative)
== END 2024-01-03 16:23 | disposition home or self-care (01) ==
PROVIDERS: Emergency Medicine; Emergency Provider Emergency Medicine; PCP Student in an Organized Health Care Education/Training Program
DX: R07.89 Other chest pain (principal); R23.2 Flushing; R06.00 Dyspnea, unspecified; I10 Essential (primary) hypertension; J45.909 Unspecified asthma, uncomplicated; Z20.822 Contact with and (suspected) exposure to COVID-19
CPT/HCPCS: 36415; 70450; 71046; 80053; 83690; 84484; 85025; 85610; 85730; 87637; 93005; 94640; 96365; 96366; 96375; 99284; A9270; J1100; J3475

== ENCOUNTER 2024-09-14 05:39 | Emergency (ER) | payer MEDICARE, SELFPAY ==
--- NOTE | ~2024-09-14 | XR_ITS ---
XR chest 2V Ordering provider: Carlos Alberto Ching III, DO History: 69 years Female with . cough . Comparison: January 03, 2024 FINDINGS: MEDIASTINUM: The cardiac silhouette is not enlarged. LUNGS: No infiltrates, effusions or pneumothorax. OTHER: No free air under the diaphragm. Degenerative changes of the spine. IMPRESSION: No acute cardiopulmonary pathology. Reviewed, dictated and finalized at location [facility]
[2024-09-14 05:48] VITALS: BP 170/55; PULSE 73; RESP 16; TEMP 36.6; O2SAT 96
[2024-09-14 05:57] VITALS: RESP 18; O2SAT 98
[2024-09-14 06:54] VITALS: BP 154/62; PULSE 63; RESP 18; O2SAT 98
--- NOTE | 2024-09-14 07:28 | ED_ITS ---
HPI - General Adult General Chief complaint: Unspecified Stated complaint: I hurt everywhere i feel sick Time Seen by Provider: 09/14/24 07:11 History of Present Illness HPI narrative: Pt presents with aches all over and tightness in neck and mild cough. Pt denies fever. Pt has some dysuria. Pt deniew vomiting. Pt has mild MACHUCA. Related Data Home Medications ?Medication ?Instructions ?Recorded ?Confirmed ?Last Taken ?Type atorvastatin 10 mg tablet 10 mg PO DAILY 05/19/21 05/19/21 Unknown History escitalopram oxalate 20 mg tablet 20 mg PO DAILY 05/19/21 05/19/21 Unknown History furosemide 20 mg tablet 20 mg PO DAILY 05/19/21 05/19/21 Unknown History metoprolol succinate 50 mg 50 mg PO DAILY 05/19/21 05/19/21 Unknown History tablet,extended release 24 hr oxybutynin chloride 5 mg 5 mg PO DAILY 05/19/21 05/19/21 Unknown History tablet,extended release 24 hr potassium chloride 10 mEq 10 meq PO DAILY 05/19/21 05/19/21 Unknown History tablet,extended release Allergies Allergy/AdvReac Type Severity Reaction Status Date / Time Sulfa (Sulfonamide Allergy Mild RASH ALL Verified 09/14/24 08:20 Antibiotics) OVER Penicillins Allergy Unknown RASH ALL Verified 09/14/24 08:20 OVER Review of Systems 2 Review of Systems: All systems reviewed & are unremarkable except as noted in HPI and below PMFSH Past Medical History Medical History Asthma Hypertension Social History Social History Smoking status: Never smoker Gender identity (if verbalized by the patient): Female Exam 2 Const: General: cooperative, healthy appearing and no acute distress HENMT: Head: normal to inspection Mouth: Yes Normal oral and palatal mucosa present Throat: posterior oropharynx normal Neck: Neck: normal visual inspection, no lymphadenopathy and no meningeal signs Resp: Effort & Inspection: normal respiratory effort Auscultation: clear to auscultation bilaterally Cardio: Rate: regular rate Rhythm: regular rhythm GI: GI Palp: No abdominal tenderness Auscultation: normal bowel sounds Skin: General skin exam: normal color and no rashes or lesions noted Neuro: General: patient oriented x3, moves all extremities and no focal motor deficits Cranial nerves: Yes CN's II-XII intact bilaterally Extrem: General: normal to inspection and full ROM Psych: Appearance: grossly normal Mental Status: mental status grossly normal Speech and movement: Normal speech and movement present Affect: n ormal affect Attitude: cooperative Thought process: Normal thought process present Course Vital Signs Vital signs: Vital Signs Temperature 97.8 F 09/14/24 05:48 Pulse Rate 73 09/14/24 05:48 Respiratory Rate 16 09/14/24 05:48 Blood Pressure 170/55 H 09/14/24 05:48 Pulse Oximetry 96 09/14/24 05:48 Oxygen Delivery Room Air 09/14/24 05:48 Temperature 97.8 F 09/14/24 05:48 Pulse Rate 60 09/14/24 09:15 Respiratory Rate 15 09/14/24 09:15 Blood Pressure 140/67 09/14/24 09:15 Pulse Oximetry 97 09/14/24 09:15 Oxygen Delivery Room Air 09/14/24 05:48 Medical Decision Making [facility] Narrative Medical decision making narrative: Pt presents with body aches and some neck tightness. will check some labs and covid flu and cxr and ua. pt has uti swabs and labs ok. home on antibiotics. Vital Signs Vital Signs: Vital Signs Temperature 97.8 F 09/14/24 05:48 Pulse Rate 73 09/14/24 05:48 Respiratory Rate 16 09/14/24 05:48 Blood Pressure 170/55 H 09/14/24 05:48 Pulse Oximetry 96 09/14/24 05:48 Oxygen Delivery Room Air 09/14/24 05:48 Temperature 97.8 F 09/14/24 05:48 Pulse Rate 60 09/14/24 09:15 Respiratory Rate 15 09/14/24 09:15 Blood Pressure 140/67 09/14/24 09:15 Pulse Oximetry 97 09/14/24 09:15 Oxygen Delivery Room Air 09/14/24 05:48 Lab Data 09/14/24 07:40 09/14/24 07:39 Labs: Lab Results 09/14/24 09/14/24 09/14/24 Range/Units 07:39 07:40 08:59 WBC 8.1 (4.5-10.0) K/mm3 RBC 4.11 L (4.2-5.4) M/mm3 Hgb 11.5 L (12.0-15.0) g/dL Hct 36.0 L (37.0-47.0) % MCV 87.6 (80-100) fl MCH 28.0 (26-34) pg MCHC 31.9 L (32-36) g/dl RDW 14.2 (11.5-14.5) % Plt Count 194 (150-375) k/mm3 MPV 9.7 (7.4-10.4) fl Immature Gran % (Auto) 0.1 (0-0.5) % Neut % (Auto) 52.4 (45.5-73.1) % Lymph % (Auto) 34.6 (18.3-44.2) % Rush % (Auto) 9.8 H (2.6-8.5) % Eos % (Auto) 2.5 (0-4.4) % Baso % (Auto) 0.6 (0.2-1.2) % Lymph # (Auto) 2.79 (0.9-3.2) K/mm3 Rush # (Auto) 0.8 H (0.1-0.6) K/mm3 Eos # (Auto) 0.2 (0-0.3) K/mm3 Baso # (Auto) 0.1 (0.0-0.1) K/mm3 Abs Immat Gran (auto) 0.01 (0.00-0.031) K/mm3 Absolute Neuts (auto) 4.2 (1.3-6.7) K/mm3 Absolute Nucleated RBC 0.000 (0.0-0.012) K/mm3 Nucleated RBC % 0.0 (0.0-0.2) % PT 14.6 (11.1-14.7) Seconds INR 1.1 APTT 25.7 (22.3-36.8) Seconds Sodium 142 (137-145) mmol/L Potassium 4.4 (3.4-5.0) mmol/L Chloride 110 H (98-107) mmol/L Carbon Dioxide 27 (22-30) mmol/L Anion Gap 5 (4-12) mmol/L BUN 17 (7-17) mg/dL Creatinine 1.10 H (0.7-1.0) mg/dL Estim Creat Clear Calc 47 ml/min Estimated GFR 49 L (59 - ) Glucose 102 (65-110) mg/dL Lactic Acid 0.7 (0.7-2.0) mmol/L Calcium 9.5 (8.4-10.2) mg/dL Total Bilirubin 1.3 (0.2-1.3) mg/dL AST 31 (14-36) U/L ALT 22 (6-35) U/L Alkaline Phosphatase 77 (38-126) U/L C-Reactive Protein 2.0 H (<1.0) mg/dL Total Protein 7.0 (6.3-8.2) g/dL Albumin 4.2 (3.5-5.1) g/dL Urine Color Dark yellow (Yellow) Urine Appearance Cloudy H (Clear) Urine pH 5.5 (5.0-9.0) Ur Specific [place] 1.034 (1.001-1.035) Urine Protein Trace (Negative) mg/dL Urine Glucose (UA) Negative (Negative) mg/dL Urine Ketones Trace H (Negative) mg/dL Ur Blood (Man) Negative (Negative) Urine Nitrate Negative (Negative) Urine Bilirubin Negative (Negative) Urine Urobilinogen 1.0 (<2.0) mg/dL Add Ur Microanalysis Reviewed Leukocyte Esterase Rfl 2+ H (Negative) MAILE/UL Urine RBC 0-2 (0-2) /hpf Urine WBC 21-50 H (0-3) /hpf Ur Squamous Epith Cells Moderate (Few) /hpf Ur Transition Epith Cell Few H (None Seen) /hpf Urine Bacteria Rare /hpf Urine Casts 6-10 Hyaline Casts Present (None) /lpf Urine Mucus Present /lpf Influenza A (RT-PCR) Negative (Negative) Influenza B (RT-PCR) Negative (Negative) SARS-CoV-2 RNA (RT-PCR) Negative (Negative) Discharge Plan Discharge Clinical Impression: Acute UTI Patient Disposition: Home, Self-Care Condition: Stable Instructions: Antibiotic Form, Urinary Tract Infection in Women (DC) Patient Language: Slovenian Prescriptions: New nitrofurantoin monohyd/m-cryst [Macrobid] 100 mg capsule 100 mg PO Q12H 5 Days Qty: 10 0RF Rx Instructions: must administer with a meal/food No Action albuterol sulfate 90 mcg/actuation HFA aerosol inhaler 2 puff inhalation QID PRN (Reason: shortness of breath or wheezing) Qty: 8.5 0RF benzonatate 200 mg capsule 200 mg PO ONCE Qty: 7 0RF nitrofurantoin monohyd/m-cryst [Macrobid] 100 mg capsule 100 mg PO Q12H 5 Days Qty: 10 0RF Rx Instructions: must administer with a meal/food metoprolol succinate 50 mg tablet extended release 24 hr 50 mg PO DAILY furosemide 20 mg tablet 20 mg PO DAILY escitalopram oxalate 20 mg tablet 20 mg PO DAILY atorvastatin 10 mg tablet 10 mg PO DAILY potassium chloride 10 mEq tablet extended release 10 meq PO DAILY oxybutynin chloride 5 mg tablet extended release 24hr 5 mg PO DAILY Follow-up/Referrals: Heri,DO Sami [Primary Care Provider] -
[2024-09-14 07:48] LABS: Basophils Absolute Auto 0.1 K/mm3 (0.0-0.1); Basophils Percent Auto 0.6 % (0.2-1.2); Eosinophils Absolute Auto 0.2 K/mm3 (0-0.3); Eosinophils Percent Auto 2.5 % (0-4.4); Hemoglobin 11.5 g/dL (12.0-15.0); Immature Granulocyte Absolute 0.01 K/mm3 (0.00-0.031); Immature Granulocyte Percent A 0.1 % (0-0.5); Lymphocytes Absolute Auto 2.79 K/mm3 (0.9-3.2); Lymphocytes Percent Auto 34.6 % (18.3-44.2); Mean Corpuscular HGB Conc 31.9 g/dl (32-36); Mean Corpuscular Volume 87.6 fl (80-100); Mean Platelet Volume 9.7 fl (7.4-10.4); Monocytes Absolute Auto 0.8 K/mm3 (0.1-0.6); Monocytes Percent Auto 9.8 % (2.6-8.5); Neutrophils Absolute Auto 4.2 K/mm3 (1.3-6.7); Neutrophils Percent Auto 52.4 % (45.5-73.1); Platelet Count Result 194 k/mm3 (150-375); Red Blood Count 4.11 M/mm3 (4.2-5.4); Red Cell Distribution Width 14.2 % (11.5-14.5); White Blood Count 8.1 K/mm3 (4.5-10.0)
[2024-09-14 07:57] LABS: Lactic Acid Reflex 0.7 mmol/L (0.7-2.0)
[2024-09-14 08:01] LABS: Alanine Aminotransferase 22 U/L (6-35); Albumin Level 4.2 g/dL (3.5-5.1); Alkaline Phosphatase 77 U/L (38-126); Anion Gap 5 mmol/L (4-12); Aspartate Amino Transferase 31 U/L (14-36); Bilirubin,Total 1.3 mg/dL (0.2-1.3); Blood Urea Nitrogen 17 mg/dL (7-17); Calcium 9.5 mg/dL (8.4-10.2); Carbon Dioxide 27 mmol/L (22-30); Chloride 110 mmol/L (98-107); Estimated CRCL calculation 47 ml/min; Estimated Glomerular Filt Rate 49; Glucose 102 mg/dL (65-110); Potassium 4.4 mmol/L (3.4-5.0); Sodium 142 mmol/L (137-145)
[2024-09-14 08:24] LABS: Influenza A QL RT-PCR Negative (Negative); Influenza B QL RT-PCR Negative (Negative); SARS-CoV-2 RNA PCR Negative (Negative)
[2024-09-14 08:26] LABS: INR 1.1; Prothrombin Time 14.6 Seconds (11.1-14.7)
[2024-09-14 08:29] LABS: Partial Thromboplastin Time 25.7 Seconds (22.3-36.8)
[2024-09-14 09:15] VITALS: BP 140/67; PULSE 60; RESP 15; O2SAT 97
[2024-09-14 09:15] LABS: Add Urine Microscopic? YES; Appearance Urine Cloudy (Clear); Bacteria Urine Rare /hpf; Bilirubin Urine Negative (Negative); Blood Urine Negative (Negative); Color Urine Dark Yellow (Yellow); Glucose Urine UA Negative (Negative); Hyaline Casts Urine Present /lpf; Ketones Urine Trace mg/dL (Negative); Leukocyte Esterase Ur 2+ LEU/UL (Negative); Mucus Urine Present /lpf; Need Manual Microscopic Reviewed; Nitrate Urine Negative (Negative); Protein Urine Trace mg/dL (Negative); RBC Urine 0-2 /hpf (0-2); Specific Grav Ur 1.034 (1.001-1.035); Squamous Epithelial Cell Urine Moderate /hpf (Few); WBC Urine 21-50 /hpf (0-3); pH Urine 5.5 (5.0-9.0)
[2024-09-14 09:16] LABS: Transitional Epi Cells Urine Few /hpf (None Seen)
--- OUTSIDE RECORDS SUMMARY | 2024-09-19 12:12 | XMS_ITS | Encounter Summary ---
Author Organization [facility] Address [facility]. [place], [place] [address] [place] [id number] Care Team Providers Care Anodizing Line Operator Name Role Phone Sami Gimenez DO Primary Care Provider + Reason for Visit * Reason Onset Date Comments Information 07/27/2024 Encounter Details Date Type Department Care Team (Late st Contact Info) Description 07/27/2024 Telephone [facility] Family & Internal Medicine [facility] [address] [place] [address] Sami Gimenez DO [address] [place] [id number] Information Social History Tobacco Use Types Packs/Day Years Used Date Smoking Tobacco: Former Cigarettes 0.5 12 0 09/30/1964 - 09/30/1976 Passive Smoke Exposure: Never Smokeless Tobacco: Never Alcohol Use Standard Drinks/Week Comments Not Currently 0 (1 standard drink = 0.6 oz pur e alcohol) [address] on some Sundays [facility] Utilities Answer Date Recorded In the past 12 months has e electric, gas, oil, or water company threatened to shut off services in your home? No 02/08/2024 Humiliation, Afraid, Rape, and Kick questionnair e Answer Date Recorded Within the last year, have y ou been afraid of your partner or ex-partner? No 02/08/2024 Within the last year, have y ou been humiliated or emotionally abused in other ways by your partner or ex-partner? No Within the last year, have y ou been kicked, hit, slapped, or otherwise physically hurt by your partner or ex-partner? No 02/08/2024 Within the last year, have y ou been raped or forced to have any kind of sexual activity by your partner or ex-partner? No 02/08/2024 AUDIT-C Answer Date Recorded Frequency of Alcohol Consumption 2-3 times a wee k 10/29/2019 Average Number of Drinks 1 or 2 020 Frequency of Binge Drinking Never 10/02 Overall Financial Resource Strain (CARDIA) Answe r Date Recorded How hard is it for you to pa y for the very basics like food, housing, medical care, and heating? Not hard at all 02/08/2024 PHQ-2 Answer Date Recorded Patient Health Questionnaire-2 Score 1 11/18/2023 Hunger Vital Sign Answer Date Recorded Within the past 12 months, y ou worried that your food would run out before you got the money to buy more. Never true 02/08/20 24 Within the past 12 months, t he food you bought just didn't last and you didn't have money to get more. Never true 02/08/2024 PRAPARE - Transportation Answer Date Re corded In the past 12 months, has l ack of transportation kept you from medical appointments or from getting medications? No 01/28 In the past 12 months, has l ack of transportation kept you from meetings, work, or from getting things needed for daily living? No 02/08/2024 Housing Stability Vital Sign Answer Sen e Recorded In the last 12 months, was t here a time when you were not able to pay the mortgage or rent on time? No 02/08/2024 In the past 12 months, how m any times have you moved where you were living? 1 02/08/2024 At any time in the past 12 m [facility], were you homeless or living in a prison (including now)? 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 Answer Date of Assessment Author Status No 02/08/2024 12:30 AM CDT Christa Hodgson RN Active * Do you have serious difficulty walking or climbing stairs? Answer Date of Assessment Author Status No 02/08/2024 12:30 AM CDT Christa Hodgson RN Active * Do you have difficulty dressing or bathing? Answer Date of Assessment Author Status No 02/08/2024 12:30 AM CDT Christa Hodgson RN Active * Because of a physical, mental, or emotional condition, do you have difficulty doing errands alone such as visiting a doctor's office or shopping? Answer Date of Assessment Author Status No 02/08/2024 12:30 AM CDT Christa Hodgson RN Active documented as of this encounter Mental Status * Because of a physical, mental, or emotional condition, do you have serious difficulty concentrating, remembering, or making decisions? Answer Entry Date Author Status No 02/08/2024 12:30 AM CDT Christa Hodgson RN Active documented in this encounter Progress Notes * Saloni Nguyen MA - 07/27/2024 4:33 PM CDT Pt is aware, and thanks Dr. Gimenez. * Sami Gimenez DO - 07/27/2024 4:28 PM CDTAddended by: SAMI GIMENEZ on: 07/27/2024 04:28 PM Modules accepted: Orders * Sami Gimenez DO - 07/27/2024 4:28 PM CDT Sent medication; keep scheduled appointment. * Saloni Nguyen MA - 07/27/2024 4:17 PM CDT Pt began experiencing onset of cough on Saturday, which worsened and she developed chills. She went to [facility] today. Negative for COVID, flu and strep. She c/o continued SOB and barking cough, but she is using her nebulizer and inhaler. She was prescribed tesslon perles, nasal spray and a codeine cough syrup. [facility] is backordered on the cough syrup. Pt called the Urgent Care back and asked them to resend the rx toanother pharmacy-they told her they cannot because it is controlled. [facility] cannot transfer original prescription. [facility]. She called and they said they have it in stock. Codeine/Guaifenesin 10-100mg/5mL q4h PRN x 3 days * Winter Espinosa - 07/27/2024 1:16 PM CDT Pt called in stating went to due to sickness. Pt asking for call back. Please advise. documented in this encounter Plan of Treatment Upcoming Encounters Date Type Department Care Team (Late st Contact Info) Description 10/09/2024 9:30 AM INSTRUMENT REPAIR SUPERVISOR Office Visit [facility] [phone] Carlos Farris MD [facility] [address] [place] [address] 11/02/2024 10:20 AM INSTRUMENT REPAIR SUPERVISOR Office Visit [facility] Family & Internal Medicine - [address] [phone] Sami Gimenez DO [address] [place] [id number] documented as of this encounter Goals Goal Patient Goal Type Associated Problems Recent Progress Patient-Stated? Author Patient will return to prior living situation and remain independent in ADLs upon discharge from hospital Lifestyle Sylvia Carvajal RN documented as of this encounter Visit Diagnoses Diagnosis Acute sinusitis, recurrence not specified, unspecified location- Primary documented in this encounter Additional Health Concerns Assessment Noted Time PHQ-9 Depression Total Score: 0 10/11/19 10:50 AM INSTRUMENT REPAIR SUPERVISOR documented as of this encounter Care Teams Anodizing Line Operator Relationship Specialty Start Date End Date Sami Gimenez DO [address] [place] [id number] PCP - General FAMILY PRACTICE 12/24/19 documented as of this encounter
--- OUTSIDE RECORDS SUMMARY | 2024-09-19 12:12 | XMS_ITS | Clinical Summary ---
Author Organization [facility] Address [facility]. [place], [place] [address] [place] [id number] Care Team Providers Care Scheduler Conveyor Name Role Phone Sami Liriano Nicole AGUIAR Primary Care Provider + Allergies Active Allergy Reactions Criticality Noted Date Comments Chocolate Hives 11/20/2023 Penicillins Rash Low 10/29/2019 Sulfa Antibiotics Rash Low 10/29/2019 Medications acetaminophen 325 MG tablet Take 2 tablets (650 mg total) by mouth every 6 (six) hours as needed for Pain. Active albuterol sulfate HFA 108 (90 Base) MCG/ACT inhalerIndication s:Wheezing Inhale 2 puffs into the lungs every 4 (four) hours as needed for Wheezing or Shortness of breath. 18 g 2 023 Active escitalopram (LEXAPRO) 20 MG tabletIndications :Current mild episode of major depressive disorder without prior episode ([facility]) TAKE 1 TABLET BY MOUTH EVERY DAY 90 tablet 1 023 Active Additional Information Patient taking differently: 20 mg Oral Daily, Reported on 07/30/2024 atorvastatin (LIPITOR) 10 MG tabletIndications :Mixed hyperlipidemia take 1 tablet by mouth every day at night 90 tablet 024 Active Additional Information Patient taking differently: 10 mg Oral Daily, Reported on 07/30/2024 albuterol (PROVENTIL) (2.5 MG/3ML) 0.083% nebulizer solutionIndicatio ns:Mucopurulent chronic bronchitis ([facility]),Chronic bronchitis, unspecified chronic bronchitis type ([facility]),Bronchit is,Wheezing Take 3 mLs (2.5 mg total) by nebulization every 6 (six) hours as needed for Wheezing. 360 mL 024 Active ipratropium-albut quyen (DUONEB) 0.5-2.5 (3) MG/3ML Solution Take 3 mLs by nebulization. Active magnesium oxide (MAG-OX) 400 (240 Mg) MG tablet Take 1 tablet (400 mg total) by mouth 2 (two) times daily. Active potassium chloride CR (K-TAB) 10 MEQ Tab CR tabletIndications :Bilateral lower extremity edema Take 1 tablet (10 mEq total) by mouth daily. 90 tablet 024 Active tiZANidine (ZANAFLEX) 2 MG tabletIndications :Muscle spasm TAKE 1 TABLET(2 MG) BY MOUTH EVERY 6 HOURS NEEDED 20 tablet 024 Active traMADol (ULTRAM) 50 MG tabletIndications :Acute Pain < 7 Day Supply,Chronic Pain Take 1 tablet (50 mg total) by mouth every 6 (six) hours as needed for Pain. Indications: Acute Pain < 7 Day Supply, Chronic Pain 28 tablet 024 Active hydrOXYzine (ATARAX) 25 MG tabletIndications :Itching Take 1 tablet (25 mg total) by mouth 3 (three) times daily as needed for Itching. 90 tablet 2 024 Active metFORMIN ER (GLUCOPHAGE-XR) 500 MG 24 hr tabletIndications :Type 2 diabetes mellitus without complication, without long-term current use of insulin ([facility]) take 1 tablet by mouth every day with breakfast 90 tablet 024 Active spironolactone (ALDACTONE) 25 MG tabletIndications :Hypertension associated with type 2 diabetes mellitus ([facility]),Chronic diastolic congestive heart failure ([facility]) Take 1 tablet (25 mg total) by mouth daily. Active COMPRESSION STOCKINGS, DME,Indications:L ocalized edema APPLY IN THE MORNING AND REMOVE IN THE EVENING. KNEE HIGH MEDIUM COMPRESSION DX: EDEMA 1 Package 1 Active torsemide (DEMADEX) 20 MG tabletIndications :Acute on chronic heart failure with preserved ejection fraction ([facility]CC) Take 2 tablets (40 mg total) by mouth 2 (two) times daily. 120 tablet 3 Active lisinopril (PRINIVIL) 20 MG tabletIndications :Hypertension TAKE 1 TABLET(20 MG) BY MOUTH DAILY 90 tablet Active guaiFENesin-codei ne (GUAIFENESIN AC) 100-10 MG/5ML syrupIndications: Cough Take 5-10 mLs by mouth every 6 (six) hours as needed for Cough. Indications: Cough Can cause drowsiness. 180 mL Active benzonatate (TESSALON) 100 MG capsule take 1 capsule by mouth every 8 hours as needed Active Fluticasone-Umecl idin-Vilant (TRELEGY ELLIPTA) 200-62.5-25 MCG/ACT AEROSOL POWDER, BREATH ACTIVATEDIndicati ons:Mucopurulent chronic bronchitis ([facility]) Inhale 1 puff into the lungs daily. 60 each 2 Active azithromycin (ZITHROMAX) 250 MG tabletIndications :Mucopurulent chronic bronchitis ([facility]CC) Take 2 tabs daily for one day, then take 1 tab daily 6 tablet Active tirzepatide (MOUNJARO) 2.5 MG/0.5ML injectionIndicati ons:Type 2 diabetes mellitus without complication, without long-term current use of insulin ([facility]),Stage 3a chronic kidney disease ([facility]),Hyperten dandre associated with type 2 diabetes mellitus ([facility]),Chronic heart failure with preserved ejection fraction ([facility]) ADMINISTER 2.5 MG UNDER THE SKIN EVERY 7 DAYS FOR DIABETES 2 mL 1 Active tirzepatide (MOUNJARO) 2.5 MG/0.5ML injectionIndicati ons:Diabetes Mellitus Inject 2.5 mg into the skin every 7 days. Indications: Diabetes 2 mL 024 2023 Discontinued Active Problems Problem Noted Date Diagnosed Date CHF (congestive heart failure) ([facility]) 02/07/2024 Body mass index (BMI) 45.0-49.9, adult ([facility]) 11/18/2023 Current moderate episode of major depressive disorder without prior episode ([facility]) 11/18/2023 Hx of adenomatous colonic polyps 10/03/2023 Family hx of colon cancer 10/03/2023 Morbid (severe) obesity due to excess calories ([facility]) 11/30/2022 Generalized osteoarthritis of multiple sites Inflammatory arthritis 04/19/2022 Urinary tract infection 04/19/2022 BMI 45.0-49.9, adult ([facility]) 2 Hyperlipidemia associated wi th type 2 diabetes mellitus ([facility]) 07/31/2021 [place] positive 06/16/2021 Stage 3a chronic kidney disease ([facility] ) 06/16/2021 Severe obstructive sleep apnea 06/16/2021 Pharyngoesophageal dysphagia 04/19/2020 Overview (04/19/2020): Added automatically from request for surgery [id number] Overactive bladder 03/03/2020 Depression 03/03/2020 Hypertension associated with type 2 diabetes mellitus ([facility]) 11/08/2019 Arthritis of left knee 11/08/2019 Resolved Problems Problem Noted Date Diagnosed Date Resolved Date Screening for colon cancer 10/03/2023 0 10/07/2023 Screening for colon cancer 10/03/2023 0 11/25/2023 Counseling on health promoti on and disease prevention 04/19/2022 04/23/2022 Positive colorectal cancer s creening using Cologuard test 04/19/2020 01/28/2024 Overview (04/19/2020): Added automatically from request for surgery [id number] Alopecia 11/08/2019 04/30/2024 Encounters Date Type Department Care Team Description 08/12/2024 Telephone [facility], [address] [address] Mikayla Casarez RN Results 07/30/2024 10:20 AM CDT Office Visit [facility] [address] [phone] Sami Liriano DO Diabetes (3 month ); Cough (The patient has had a congestion for 6 days.) 07/30/2024 Travel 07/27/2024 Telephone [facility] [address] [phone] Sami Liriano DO Information 07/06/2024 12:30 PM CDT Office Visit [facility], [address] [address] Carlos Farris MD Follow Up (2 month) 07/06/2024 Telephone [facility], [address] [address] Ashley Gaitan CMA Medication Information ([facility] 07/06/2024 Telephone [facility], [address] [address] Carlos Farris MD Orders 07/06/2024 Orders Only [facility], [address] [address] Carlos Farris MD 07/06/2024 Travel from Last 3 Months Immunizations Name Administration Dates Next Due Dtap 06/30/2011 Dtap (Acel-Immune) 06/30/2011 Pneumococcal (Pneumovax 23) 09/19/2021 Pneumococcal (Prevnar 13) 09/05/2020 Family History Medical History Relation Comments Alcohol Abuse Brother Cancer Brother prostate Prostate Cancer Brother Alcohol Abuse Father Alzheimers Father Heart Attack Father Heart Disease Father Alzheimers Maternal Grandmother Alzheimers Mother Colon Cancer Paternal Aunt Heart Disease Paternal Grandfather Alcohol Abuse Sister 1 Mental Health Sister 2 Diabetes Son Hypertension Son Stroke Son Relation Status Comments Brother Father Maternal Grandmother Mother Paternal Aunt Paternal Grandfather Sister 1 Sister 2 Son Social History Tobacco Use Types Packs/Day Years Used Date Smoking Tobacco: Former Cigarettes 0.5 12 0 09/30/1964 - 09/30/1976 Passive Smoke Exposure: Never Smokeless Tobacco: Never Tobacco Cessation:Counseling Given: Not Answered Alcohol Use Standard Drinks/Week Comments Not Currently 0 (1 standard drink = 0.6 oz pur e alcohol) 2 cocktails on some Sundays [facility] Utilities Answer Date Recorded In the past 12 months has e [employer], gas, oil, or water [employer] threatened to shut off services in your [...] any time in the past 12 m [facility], were you homeless or living in a long-term (including now)? 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 Not on file Not on file Not on franck e Last Filed Vital Signs Vital Sign Reading Time Taken Comments Blood Pressure 138/88 07/30/2024 10:29 AM CDT Pulse 89 07/30/2024 10:29 AM CDT Temperature 36.6 ??C (97.9 ??F) 07/30/2024 1 0:29 AM CDT Respiratory Rate 16 07/30/2024 10:2 9 AM CDT Oxygen Saturation 96% 07/30/2024 10: 29 AM CDT Inhaled Oxygen Concentration - - Weight 112.3 kg (247 lb 9.6 oz) 024 10:29 AM CDT Height 152.4 cm (5') 07/30/2024 10:29 AM CDT Body Mass Index 48.36 07/30/2024 10:29 AM CDT Plan of Treatment Upcoming Encounters Date Type Department Care Team (Late st Contact Info) Description 10/09/2024 9:30 AM SPECIMEN ACCESSIONER Office Visit [facility] [phone] Carlos Farris MD [facility] [address] [place] [address] 11/02/2024 10:20 AM SPECIMEN ACCESSIONER Office Visit [facility] - [place] [address] [place] [phone] Sami Liriano DO [facility] [place] [address] Health Maintenance Due Date Last Done Comments Annual Medicare Wellness Visit 06/23/2022 06/22/2021 Diabetes: Retinopathy Eye Exam 04/26/2023 04/26/2022 Colorectal Cancer Screening Colonoscopy (10 Years) 11/20/2024 11/20/2023, 04/27/2020, 04/27/2020 Lipid Panel 11/27/2024 11/28/2023, 03/0 11/2022, 08/07/2021, Additional history exists Hemoglobin A1C 01/27/2025 07/30/2024, 10/31, 07/26/2023, Additional history exists Zoster Vaccines (1 of 2) 02/02/2025 Pos tponed from 2003 (Going to Outside Clinic) COVID-19 Vaccine ( - 2023- season) 2025 Postponed from 05/31/2024 (Patient Refused) RSV Immunization or 60+ Years (1 - Risk 60-74 years 1-dose series) 07/30/2025 Postponed fro m 2013 (Patient Refused) Mammogram Screening 09/24/2025 09/24/2023, DTaP, Tdap and Td Vaccines (3 - Tdap) 10/29/2028 06/30/2011, 06/30/2011 Postponed from 06/30/2021 (Per Provider Recommendation) Influenza Adult (#1) 2099 Postpon ed from 06/30/2024 (Patient Refused) Dexa Scan (General) Completed 02/28/2021 Pneumococcal Vaccine: 65+ Years Completed 09/19/2021, 09/05/2020 Hepatitis C Completed 04/19/2022 Meningococcal Vaccine Aged Out No brandon flex eligible based on patient's age to complete this topic RSV Immunizations Under 20 Months Aged Out No longer eligible based on patient's age to complete this topic Goals Goal Patient Goal Type Associated Problems Recent Progress Patient-Stated? Author Patient will return to prior living situation and remain independent in ADLs upon discharge from hospital Sylvia Chávez RN Medical Devices Implanted Type Area Candy Vendor Device Identifier Shelf Expiration Date Model / Serial / Lot Knee Shoulder Procedures Procedure Name Priority Date/Time Associated Diagnosis Comments BASIC METABOLIC PANEL Routine 07/30/2024 11:49 AM CDT Type 2 diabetes mellitus without complication, without long-term current use of insulin ([facility]/HCC HHS/HCC) VENIPUNC ARM DRAW Routine 07/30/2024 10: 57 AM CDT Type 2 diabetes mellitus without complication, without long-term current use of insulin (CMS/HCC HHS/HCC) COLLECT.CAPILLARY (FNGR,HEEL,EAR) Routine 07/30/2024 10:30 AM CDT Type 2 diabetes mellitus without complication, without long-term current use of insulin (CMS/HCC HHS/HCC) HEMOGLOBIN, GLYCOSYLATED Routine 07/30/2024 Type 2 diabetes mellitus without complication, without long-term current use of insulin (CMS/HCC HHS/HCC) LIPID PANEL Routine 11/28/2023 3:02 PM SPECIMEN ACCESSIONER Type 2 diabetes mellitus with other circulatory complication, without long-term current use of insulin (CMS/HCC HHS/HCC) Stage 3a chronic kidney disease (CMS/HCC HHS/HCC) Hyperlipidemia associated with type 2 diabetes mellitus (CMS/HCC HHS/HCC) Hypertension associated with type 2 diabetes mellitus (CMS/HCC HHS/HCC) MAMMOGRAM GENERIC (SCAN ORDER) 09/24/2023 DIABETIC RETINOPATHY EXAM (NEGATIVE)(SCAN ORDER) Routine 04/26/2022 HEPATITIS C ANTIBODY Routine 04/19/2022 9:39 AM CDT Need for hepatitis C screening test BONE DENSITY GENERIC (SCAN ORDER) 02/28/2021 COLONOSCOPY/EGD GENERIC (SCAN ORDER) Routine 04/27/2020 from Last 3 Months or Most Recently Relevant to Health Maintenance Results * (ABNORMAL) BASIC METABOLIC PANEL (07/30/2024 11:49 AM CDT) SODIUM S/P/B 143 136 - 145 MMOL/L 07/30/2024 7:[address] [facility] POTASSIUM S/P/B 3.9 3.5 - 5.1 MMOL/L 07/30/2024 7:38 PM [facility], DEPUTY CHLORIDE S/P/B 104 98 - 107 MMOL/L 07/30/2024 7:38 PM T [facility] CO2 29.6 21 - 32 MMOL/L 07/30/2024 7:38 PM T [facility], DEPUTY GLUCOSE 109(H) 70 - 99 MG/DL 07/30/2024 7:[address] [facility] BUN 22(H) 7 - 18 MG/DL 07/30/2024 7:[address] [facility] CREATININE S/P/B 1.21(H) 0.55 - 1.02 MG/DL 07/30/2024 7:38 PM [facility], DEPUTY CALCIUM S/P/B 9.4 8.4 - 10.5 MG/DL 07/30/2024 7:[address] [facility] ANION GAP 9.4 5 - 15 MMOL/L 07/30/2024 7:[address] [facility] Comment:REFERENCE RANGE NOT ESTABLISHED OSMOLALITY (CALC) 300 MOSM/KG 024 7:38 PM T [facility] Comment:REFERENCE RANGE NOT ESTABLISHED GFR ESTIMATE 48(L) >90 ML/MIN/1. 73 M2 07/30/2024 7:[address] [facility] GFR NOTES GFR REFERENCE S: 07/30/2024 7:[address] [facility] Comment: THE ESTIMATED GFR IS CALCULATED USING THE 2020 CKD-EPI EQUATION. THE FOLLOWING CATEGORIES FOR GRADING RENAL FUNCTION ARE RECOMMENDED BY THE INTERNATIONAL SOCIETY OF NEPHROLOGY (KDIGO 2012 CLINICAL PRACTICE GUIDELINE). G1,NORMAL OR HIGH: >89 ml/min/1.73 m2 G2,MILDLY DECREASED: 60-89 ml/min/1.73 m2 G3A,MILDLY TO MODERATELY DECREASED: 45-59 ml/min/1.73 m2 G3B,MODERATELY TO SEVERELY DECREASED: 30-44 ml/min/1.73 m2 G4,SEVERELY DECREASED: 15-29 ml/min/1.73 m2 G5,KIDNEY FAILURE: <15 ml/min/1.73 m2 07/30/2024 11:4 9 AM CDT Sami Liriano DO LABORATORY Final Re sult [facility] [address] [place] [address], * HEMOGLOBIN, GLYCOSYLATED (07/30/2024) HGB A1C 6.1 % [facility] 07/30/2024 Sami Liriano DO LABORATORY Final Re sult Performing Organization Address City/[facility]/ZIP Co de Phone Number [facility] [address] [place] [address], * LIPID PANEL (11/28/2023 3:02 PM SPECIMEN ACCESSIONER) CHOLESTEROL 164 <200 MG/DL 11/28/2023 8:19 PM SPECIMEN ACCESSIONER [facility] TRIGLYCERIDES 115 <150 MG/DL 11/28/2023 8:19 PM SPECIMEN ACCESSIONER [facility] HDL 67 >40 MG/DL 11/28/2023 8:19 PM SPECIMEN ACCESSIONER [facility] LDL-C 74 <100 MG/DL 11/28/2023 8:19 PM SPECIMEN ACCESSIONER [facility] VLDL CALCULATION 23 5 - 28 MG/DL 11/28/2023 8:19 PM SPECIMEN ACCESSIONER [facility] CHOL/HDL RATIO 2.4 0.0 - 4.0 11/28/2023 8:19 PM SPECIMEN ACCESSIONER [facility] LDL/HDL 1.1 0.41 - 2.13 11/28/2023 8:19 PM SPECIMEN ACCESSIONER [facility] NON HDL CHOLESTEROL 97 <140 MG/DL 11/28/2023 8:19 PM SPECIMEN ACCESSIONER [facility] 11/28/2023 3:02 PM SPECIMEN ACCESSIONER Sami Liriano DO LABORATORY Final Re sult Performing Organization Address City/[facility]/ZIP Co de Phone Number [facility] [address] [place] [address], [place] [phone] * MAMMOGRAM GENERIC (09/24/2023) Anatomical Region Laterality Modality Other 09/24/2023 [facility] Scanned SCANNING Final Resu lt * DIABETIC RETINOPATHY EXAM (NEGATIVE)(SCAN) (04/26/2022) Documents Scanned SCANNING Final Result Performing Organization Address [facility] de Phone Number [facility] ON[facility] * HEPATITIS C AB ([facility] ONLY) (04/19/2022 9:39 AM CDT) HEPATITIS C AB NON-REACTI VE NON-REACT CHELE 04/19/2022 6:57 PM CDT [facility] Comment: ANTIBODIES TO HCV NOT DETECTED. DOES NOT EXCLUDE THE POSSIBILITY OF EXPOSURE TO HCV. 04/19/2022 9:39 AM CDT Sami Liriano DO LABORATORY Final Re sult Performing Organization Address City/[facility] Co de Phone Number [facility] [address] [place] [address], [place] [phone] * BONE DENSITY GENERIC (02/28/2021) Anatomical Region Laterality Modality Other 02/28/2021 Narrative 02/28/2021 Ordered by an unspecified provider. us Documents Scanned SCANNING Final Result * COLONOSCOPY/EGD (04/27/2020) us Documents Scanned SCANNING Final Result [facility] from Last 3 Months or Most Recently Relevant to Health Maintenance Insurance Advance Directives * Full Code (Latest Code Status on File) Date Activated Date Inactivated Comments 02/07/2024 11:19 PM 02/12/2024 4:08 PM Care Teams Scheduler Conveyor Relationship Specialty Start Date End Date Sami Liriano DO [address] [place] [address] PCP - General FAMILY PRACTICE 12/24/19
--- OUTSIDE RECORDS SUMMARY | 2024-09-19 12:12 | XMS_ITS | Encounter Summary ---
Author Organization [facility] Address [facility]. [place], [place] [address] [place] [id number] Care Team Providers Care Milk Pickup Driver Name Role Phone Sami Liriano DO Primary Care Provider + Reason for Referral * Procedure (Routine) - Authorized Specialty Diagnoses / Procedures Referred By Shereen t Referred To Contact Diagnoses Mucopurulent chronic bronchitis ([facility]) Procedures Complete PFT (pre/post Matheus, Lung Vol, Diff Capacity) (42411, 56384, 01887, 29134) Sami Liriano DO [address] [place] [address] Phone: tel: fax: [address] [address] Phone: tel: fax: Referral ID Status Reason Start Date Expiration Date V isits Requested Visits Authorized [id number] Authorized 07/30/2024 08/30/2025 1 1 Reason for Visit * Reason Comments Diabetes 3 month Cough The patient has had a congestion for 6 days. Encounter Details Date Type Department Care Team (Late st Contact Info) Description 07/30/2024 10:20 AM CDT Office Visit [facility] Family & Internal Medicine [id number] [place] [address] Sami Liriano, [address] [place] [address] Diabetes (3 month ); Cough (The patient has had a congestion for 6 days.) Social History Tobacco Use Types Packs/Day Years Used Date Smoking Tobacco: Former Cigarettes 0.5 12 0 09/30/1964 - 09/30/1976 Passive Smoke Exposure: Never Smokeless Tobacco: Never Alcohol Use Standard Drinks/Week Comments Not Currently 0 (1 standard drink = 0.6 oz pur e alcohol) 2 cocktails on some Sundays [facility] [employer] Answer Date Recorded In the past 12 months has e [employer], gas, oil, or water Poken threatened to shut off services in your [...] the money to buy more. Never true 05/11/20 24 Within the past 12 months, t [...] any time in the past 12 m [facility], were you homeless or living in a fci (including now)? 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 Answer Date of Assessment Author Status No 02/08/2024 12:30 AM Christa Jensen RN Active * Do you have serious difficulty walking or climbing stairs? Answer Date of Assessment Author Status No 02/08/2024 12:30 AM Christa Jensen RN Active * Do you have difficulty dressing or bathing? Answer Date of Assessment Author Status No 02/08/2024 12:30 AM Christa Jensen RN Active * Because of a physical, mental, or emotional condition, do you have difficulty doing errands alone such as visiting a doctor's office or shopping? Answer Date of Assessment Author Status No 02/08/2024 12:30 AM Christa Jensen RN Active documented as of this encounter Mental Status * Because of a physical, mental, or emotional condition, do you have serious difficulty concentrating, remembering, or making decisions? Answer Entry Date Author Status No 02/08/2024 12:30 AM Christa Jensen RN Active documented in this encounter Progress Notes * Sami Liriano, DO - 07/30/2024 10:20 AM CDT Images from the original note were not included. GENERAL OFFICE VISIT Encounter Date: 07/30/2024 Chief Complaint: 69-year-old female presents for Diabetes (3 month ) and Cough (The patient has had a congestion for6 days.) HPI: Pt presents for cough. Patient states symptoms have been present for 6 days. Symptoms include cough, fatigue, SOB, & chills for one night. Pertinent negatives include Fevers and Myalgias. We prescribed pt albuterol & Duoneb previously as well as Tessalon perles and Cheratussin. Pt is using Breztri twice daily. Patient has Type 2 Diabetes. Patient has had diabetes for less than 1 year. Medications include metformin ER. BS logs range: 100-120. Pt's last eye exam was 04/26/22. Pt's weight is not improving. Current symptoms include none. HGB A1C Date Value Ref Range Status 07/30/2024 6.1 % Final 11/18/2023 6.1 % Final 07/26/2023 6.1 % Final 11/30/2022 5.9 % Final MICROALBUMIN (U) Date Value Ref Range Status 11/28/2023 15.8 <20 MG/L Final 11/30/2022 3.8 <20 MG/L Final Patient presents for follow-up on HLD. Patient has had HLD for multiple years. Current medications include atorvastatin. Current side effects include none. Patient does not need labs drawn today, butwill in the near future. Patient presents for follow-up on essential hypertension. Patient has had hypertension for multipleyears. Current medications include Lisinopril and torsemide and spironolactone. Patient's blood pressure is not well controlled at this time. No side effects noted from medications. Concurrent conditions include Diabetes Mellitus, Hyperlipidemia and Chronic Kidney Disease 3a. Review of Systems Constitutional: Negative for fever. Respiratory: See HPI Cardiovascular: Negative for chest pain. Gastrointestinal: Negative for abdominal pain. Musculoskeletal: Negative for myalgias. Psychiatric/Behavioral: Stable Patient Active Problem List Diagnosis Hypertension associated with type 2 diabetes mellitus ([facility]) Arthritis of left knee Overactive bladder Depression Pharyngoesophageal dysphagia ALLYSON positive Stage 3a chronic kidney disease ([facility]) Severe obstructive sleep apnea Hyperlipidemia associated with type 2 diabetes mellitus ([facility]) BMI 45.0-49.9, adult ([facility]) Generalized osteoarthritis of multiple sites Inflammatory arthritis Urinary tract infection Morbid (severe) obesity due to excess calories ([facility]) Hx of adenomatous colonic polyps Family hx of colon cancer Body mass index (BMI) 45.0-49.9, adult ([facility]) Current moderate episode of major depressive disorder without prior episode ([facility]) CHF (congestive heart failure) ([facility]) Past Medical History: Diagnosis Date Anxiety disorder, unspecified Arthritis Arthritis of left knee 11/08/2019 Depression Diabetes mellitus ([facility]) GERD (gastroesophageal reflux disease) Hypertension Overactive bladder Positive colorectal cancer screening using Cologuard test 04/19/2020 Added automatically from request for surgery [id number] Past Surgical History: Procedure Laterality Date ANKLE SURGERY left SECTION COLONOSCOPY N/A 04/27/2020 COLONOSCOPY WITH BIOPSY X 3 performed by Joel Keenan MD at [facility] OR COLONOSCOPY N/A 11/20/2023 Colonoscopy with Polypectomies performed by Joel Keenan MD at [facility] OR EGD EYE SURGERY FRACTURE SURGERY HERNIA REPAIR HYSTERECTOMY JOINT REPLACEMENT SHOULDER SURG PROC UNLISTED right TONSILLECTOMY TOTAL KNEE ARTHROPLASTY right Family History Problem Relation Name Age of Onset Alzheimers Mother Heart Attack Father Elvin Sargent Heart Disease Father Elvin Sargent Alzheimers Father Elvin Sargent Alcohol Abuse Father Elvin Sargent Prostate Cancer Brother Joel Sargent Alcohol Abuse Brother Joel Sargent Cancer Brother Joel Sargent prostate Colon Cancer Paternal Aunt Alzheimers Maternal Grandmother Heart Disease Paternal Grandfather Alcohol Abuse Sister Isabel Sargent Diabetes Son Crispin Sargent Hypertension Son Crispin Sargent Stroke Son Crispin Sargent Mental Health Sister Myah Sargent Social History Socioeconomic History Marital status: Spouse name: Not on file Number of children: 2 Years of education: Not on file Highest education level: Not on file Occupational History 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 Tobacco Use Smoking status: Former Current packs/day: 0.00 Average packs/day: 0.5 packs/day for 12.0 years (6.0 ttl pk-yrs) Types: Cigarettes Start date: 09/30/1964 Quit date: 09/30/1976 Years since quittin.8 Passive exposure: Never Smokeless tobacco: Never Vaping Use Vaping status: Never Used Substance and Sexual Activity Alcohol use: Not Currently Comment: 2 cocktails on some Sundays Drug use: Never Sexual activity: Not Currently Other Topics Concern Service No Blood Transfusions No Caffeine Concern Yes Comment: 2 cups Occupational Exposure Not Asked Hobby Hazards Not Asked Sleep Concern Not Asked Stress Concern Not Asked Weight Concern Not Asked Special Diet Yes Comment: low nithin and low carb Back Care Not Asked Exercise No Bike Helmet Not Asked Seat Belt Not Asked Self-Exams Not Asked Wheelchair Not Asked Walker Not Asked Upper extremity braces/slings Not Asked Lower extermity braces/slings Not Asked Self Care Not Asked Social History Narrative Not on file Social Drivers of Health Financial Resource Strain: Low Risk (02/08/2024) Overall Financial Resource Strain (CARDIA) Difficulty of Paying Living Expenses: Not hard at all Food Insecurity: No Food Insecurity (02/08/2024) Hunger Vital Sign Worried About Running Out of Food in the Last Year: Never true Ran Out of Food in the Last Year: Never true Transportation Needs: No Transportation Needs (02/08/2024) PRAPARE - Transportation Lack of Transportation (Medical): No Lack of Transportation (Non-Medical): No Physical Activity: Not on file Stress: Not on file Social Connections: Not on file Intimate Partner Violence: Not At Risk (02/08/2024) Humiliation, Afraid, Rape, and Kick questionnaire Fear of Current or Ex-Partner: No Emotionally Abused: No Physically Abused: No Sexually Abused: No Housing Stability: Low Risk (02/08/2024) Housing Stability Vital Sign Unable to Pay for Housing in the Last Year: No Number of Times Moved in the Last Year: 1 Homeless in the Last Year: No Immunization History Administered Date(s) Administered Dtap 06/30/2011 Dtap (Acel-Immune) 06/30/2011 Pneumococcal (Pneumovax 23) 09/19/2021 Pneumococcal (Prevnar 13) 09/05/2020 Current Outpatient Medications Medication Sig Dispense Refill acetaminophen 325 MG tablet Take 2 tablets (650 mg total) by mouth every 6 (six) hours as needed for Pain. albuterol (PROVENTIL) (2.5 MG/3ML) 0.083% nebulizer solution Take 3 mLs (2.5 mg total) by nebulization every 6 (six) hours as needed for Wheezing. 360 mL 0 albuterol sulfate HFA 108 (90 Base) MCG/ACT inhaler Inhale 2 puffs into the lungs every 4 (four) hours as needed for Wheezing or Shortness of breath. 18 g 2 atorvastatin (LIPITOR) 10 MG tablet take 1 tablet by mouth every day at night (Patient taking differently: Take 1 tablet (10 mg total) by mouth daily.) 90 tablet 0 azithromycin (ZITHROMAX) 250 MG tablet Take 2 tabs daily for one day, then take 1 tab daily 6 tablet 0 benzonatate (TESSALON) 100 MG capsule take 1 capsule by mouth every 8 hours as needed COMPRESSION STOCKINGS, DME, APPLY IN THE MORNING AND REMOVE IN THE EVENING. KNEE HIGH MEDIUM COMPRESSION DX: EDEMA 1 Package 1 escitalopram (LEXAPRO) 20 MG tablet TAKE 1 TABLET BY MOUTH EVERY DAY (Patient taking differently: Take 1 tablet (20 mg total) by mouth daily.) 90 tablet 1 Tjxkibsguhg-Umbjjeccl-Efgwhf (TRELEGY ELLIPTA) 200-62.5-25 MCG/ACT AEROSOL POWDER, BREATH ACTIVATEDInhale 1 puff into the lungs daily. 60 each 2 guaiFENesin-codeine (GUAIFENESIN AC) 100-10 MG/5ML syrup Take 5-10 mLs by mouth every 6 (six) hoursas needed for Cough. Indications: Cough Can cause drowsiness. 180 mL 0 hydrOXYzine (ATARAX) 25 MG tablet Take 1 tablet (25 mg total) by mouth 3 (three) times daily as needed for Itching. 90 tablet 2 ipratropium-albuterol (DUONEB) 0.5-2.5 (3) MG/3ML Solution Take 3 mLs by nebulization. lisinopril (PRINIVIL) 20 MG tablet TAKE 1 TABLET(20 MG) BY MOUTH DAILY 90 tablet 0 magnesium oxide (MAG-OX) 400 (240 Mg) MG tablet Take 1 tablet (400 mg total) by mouth 2 (two) timesdaily. metFORMIN ER (GLUCOPHAGE-XR) 500 MG 24 hr tablet take 1 tablet by mouth every day with breakfast 90tablet 0 potassium chloride CR (K-TAB) 10 MEQ Tab CR tablet Take 1 tablet (10 mEq total) by mouth daily. 90 tablet 0 spironolactone (ALDACTONE) 25 MG tablet Take 1 tablet (25 mg total) by mouth daily. tirzepatide (MOUNJARO) 2.5 MG/0.5ML injection Inject 2.5 mg into the skin every 7 days. Indications: Diabetes 2 mL 0 tiZANidine (ZANAFLEX) 2 MG tablet TAKE 1 TABLET(2 MG) BY MOUTH EVERY 6 HOURS NEEDED 20 tablet 0 torsemide (DEMADEX) 20 MG tablet Take 2 tablets (40 mg total) by mouth 2 (two) times daily. 120 tablet 3 traMADol (ULTRAM) 50 MG tablet Take 1 tablet (50 mg total) by mouth every 6 (six) hours as needed for Pain. Indications: Acute Pain < 7 Day Supply, Chronic Pain 28 tablet 0 No current facility-administered medications for this visit. Current Outpatient Medications on File Prior to Visit Medication Sig acetaminophen 325 MG tablet Take 2 tablets (650 mg total) by mouth every 6 (six) hours as needed for Pain. albuterol (PROVENTIL) (2.5 MG/3ML) 0.083% nebulizer solution Take 3 mLs (2.5 mg total) by nebulization every 6 (six) hours as needed for Wheezing. albuterol sulfate HFA 108 (90 Base) MCG/ACT inhaler Inhale 2 puffs into the lungs every 4 (four) hours as needed for Wheezing or Shortness of breath. atorvastatin (LIPITOR) 10 MG tablet take 1 tablet by mouth every day at night (Patient taking differently: Take 1 tablet (10 mg total) by mouth daily.) benzonatate (TESSALON) 100 MG capsule take 1 capsule by mouth every 8 hours as needed COMPRESSION STOCKINGS, DME, APPLY IN THE MORNING AND REMOVE IN THE EVENING. KNEE HIGH MEDIUM COMPRESSION DX: EDEMA escitalopram (LEXAPRO) 20 MG tablet TAKE 1 TABLET BY MOUTH EVERY DAY (Patient taking differently: Take 1 tablet (20 mg total) by mouth daily.) guaiFENesin-codeine (GUAIFENESIN AC) 100-10 MG/5ML syrup Take 5-10 mLs by mouth every 6 (six) hoursas needed for Cough. Indications: Cough Can cause drowsiness. hydrOXYzine (ATARAX) 25 MG tablet Take 1 tablet (25 mg total) by mouth 3 (three) times daily as needed for Itching. ipratropium-albuterol (DUONEB) 0.5-2.5 (3) MG/3ML Solution Take 3 mLs by nebulization. lisinopril (PRINIVIL) 20 MG tablet TAKE 1 TABLET(20 MG) BY MOUTH DAILY magnesium oxide (MAG-OX) 400 (240 Mg) MG tablet Take 1 tablet (400 mg total) by mouth 2 (two) timesdaily. metFORMIN ER (GLUCOPHAGE-XR) 500 MG 24 hr tablet take 1 tablet by mouth every day with breakfast potassium chloride CR (K-TAB) 10 MEQ Tab CR tablet Take 1 tablet (10 mEq total) by mouth daily. spironolactone (ALDACTONE) 25 MG tablet Take 1 tablet (25 mg total) by mouth daily. tiZANidine (ZANAFLEX) 2 MG tablet TAKE 1 TABLET(2 MG) BY MOUTH EVERY 6 HOURS NEEDED torsemide (DEMADEX) 20 MG tablet Take 2 tablets (40 mg total) by mouth 2 (two) times daily. traMADol (ULTRAM) 50 MG tablet Take 1 tablet (50 mg total) by mouth every 6 (six) hours as needed for Pain. Indications: Acute Pain < 7 Day Supply, Chronic Pain No current facility-administered medications on file prior to visit. Review of patient's allergies indicates: Allergen Reactions Chocolate Hives Penicillins Rash Sulfa Antibiotics Rash Objective: Filed Vitals: 07/30/24 1029 BP: 138/88 Pulse: 89 Resp: 16 Temp: 97.9 ??F (36.6 ??C) TempSrc: Skin SpO2: 96% Weight: 112.3 kg (247 lb 9.6 oz) Height: 1.524 m (5') Physical Exam Vitals and nursing note reviewed. HENT: Head: Normocephalic and atraumatic. Right Ear: External ear normal. Left Ear: External ear normal. Eyes: General: No scleral icterus. Conjunctiva/sclera: Conjunctivae normal. Cardiovascular: Rate and Rhythm: Normal rate and regular rhythm. Heart sounds: Normal heart sounds. No murmur heard. No friction rub. No gallop. Pulmonary: Effort: Pulmonary effort is normal. Breath sounds: Wheezing present. Abdominal: Palpations: Abdomen is soft. Tenderness: There is no abdominal tenderness. Musculoskeletal: Cervical back: Neck supple. Lymphadenopathy: Cervical: No cervical adenopathy. Skin: General: Skin is warm and dry. Findings: No rash. Neurological: Mental Status: She is alert. Mental status is at baseline. Psychiatric: Mood and Affect: Mood and affect normal. Assessment & Plan: Jolly Deal was seen today for diabetes and cough. Diagnoses and all orders for this visit: Type 2 diabetes mellitus without complication, without long-term current use of insulin ([facility]) - HEMOGLOBIN, GLYCOSYLATED - COLLECT.CAPILLARY (FNGR,HEEL,EAR) - BASIC METABOLIC PANEL; Future - VENIPUNC ARM DRAW - tirzepatide (MOUNJARO) 2.5 MG/0.5ML injection; Inject 2.5 mg into the skin every 7 days. Indications: Diabetes Mucopurulent chronic bronchitis ([facility]) - Complete PFT (pre/post [place], Lung Vol, Diff Capacity) (90863, 52572, 23661, 06131); Future - Ghddnolpesn-Wdqjrcqzy-Sxvlxw (TRELEGY ELLIPTA) 200-62.5-25 MCG/ACT AEROSOL POWDER, BREATH ACTIVATED; Inhale 1 puff into the lungs daily. - azithromycin (ZITHROMAX) 250 MG tablet; Take 2 tabs daily for one day, then take 1 tab daily Stage 3a chronic kidney disease ([facility] HHS/HCC) - tirzepatide (MOUNJARO) 2.5 MG/0.5ML injection; Inject 2.5 mg into the skin every 7 days. Indications: Diabetes Hypertension associated with type 2 diabetes mellitus ([facility] HHS/HCC) - tirzepatide (MOUNJARO) 2.5 MG/0.5ML injection; Inject 2.5 mg into the skin every 7 days. Indications: Diabetes Chronic heart failure with preserved ejection fraction ([facility]) - tirzepatide (MOUNJARO) 2.5 MG/0.5ML injection; Inject 2.5 mg into the skin every 7 days. Indications: Diabetes Discussion/Summary: Will send out Mounjaro; discussed side effect profile. Pt has multiple co- morbidities that would benefit from use of Mounjaro and is limited on metformin dosing due to CKD. No FH MEN2 or medullary thyroid carcinoma. Will change Breztri to Trelegy; will order PFT and recommend f/u with pulmonology with this (is already scheduled for sleep medicine issue). Will also send out z-pack. Will courtesy order BMP for pt for cardiology. Will have pt f/u in 3 months or sooner if needed. Pt v/u. Sami Liriano DO [employer] documented in this encounter Plan of Treatment Upcoming Encounters Date Type Department Care Team (Late st Contact Info) Description 10/09/2024 9:30 AM MANAGER [employer]ING Office Visit [facility] [address] Carlos Farris MD [facility] [address] [place] [address] 11/02/2024 10:20 AM MANAGER [employer]ING Office Visit [facility] Family & Internal Medicine - [id number] [place] [address] Sami Liriano DO [address] [place] [address] Scheduled Orders Name Type Priority Associated Diagnoses Orde r Schedule Complete PFT (pre/post Matheus, Lung Vol, Diff Capacity) (74414, 06139, 78262, 46128) PFT Routine Mucopurulent chronic bronchitis ([facility]) Expected: 07/30/2024, Expires: 07/30/2025 documented as of this encounter Goals Goal Patient Goal Type Associated Problems Recent Progress Patient-Stated? Author Patient will return to prior living situation and remain independent in ADLs upon discharge from hospital Lifestyle No Sylvia Ventura RN documented as of this encounter Procedures Procedure Name Priority Date/Time Associated Diagnosis Comments BASIC METABOLIC PANEL Routine 07/30/2024 11:49 AM CDT Type 2 diabetes mellitus without complication, without long-term current use of insulin ([facility]) VENIPUNC ARM DRAW Routine 07/30/2024 10: 57 AM CDT Type 2 diabetes mellitus without complication, without long-term current use of insulin ([facility] HHS/HCC) COLLECT.CAPILLARY (FNGR,HEEL,EAR) Routine 07/30/2024 10:30 AM CDT Type 2 diabetes mellitus without complication, without long-term current use of insulin ([facility]/HCC) HEMOGLOBIN, GLYCOSYLATED Routine 07/30/2024 Type 2 diabetes mellitus without complication, without long-term current use of insulin ([facility]) documented in this encounter Results * (ABNORMAL) BASIC METABOLIC PANEL (07/30/2024 11:49 AM CDT) SODIUM S/P/B 143 136 - 145 MMOL/L 07/30/2024 7:38 PM CDT -[facility] POTASSIUM S/P/B 3.9 3.5 - 5.1 MMOL/L 07/30/2024 7:38 PM T [facility] CHLORIDE S/P/B 104 98 - 107 MMOL/L 07/30/2024 7:38 PM [facility] CO2 29.6 21 - 32 MMOL/L 07/30/2024 7:38 PM [facility] GLUCOSE 109(H) 70 - 99 MG/DL 07/30/2024 7:38 PM T [facility] BUN 22(H) 7 - 18 MG/DL 07/30/2024 7:38 PM [facility] CREATININE S/P/B 1.21(H) 0.55 - 1.02 MG/DL 07/30/2024 7:38 PM [facility] CALCIUM S/P/B 9.4 8.4 - 10.5 MG/DL 07/30/2024 7:38 PM [facility] ANION GAP 9.4 5 - 15 MMOL/L 07/30/2024 7:38 PM [facility] Comment:REFERENCE RANGE NOT ESTABLISHED OSMOLALITY (CALC) 300 MOSM/KG 024 7:38 PM [facility] Comment:REFERENCE RANGE NOT ESTABLISHED GFR ESTIMATE 48(L) >90 ML/MIN/1. 73 M2 07/30/2024 7:38 PM [facility] GFR NOTES GFR REFERENCE S: 07/30/2024 7:38 PM T [facility] Comment: THE ESTIMATED GFR IS CALCULATED [...] ml/min/1.73 m2 07/30/2024 11:4 9 AM CDT us Sami Liriano DO LABORATORY Final Re sult Performing Organization Address City/[facility] Co de Phone Number [facility] [address] [place] [address], [place] [phone] * HEMOGLOBIN, GLYCOSYLATED (07/30/2024) HGB A1C 6.1 % [facility] 07/30/2024 us Sami Liriano DO LABORATORY Final Re sult Performing Organization Address [facility] de Phone Number [facility] [address] [place] [address], [place] documented in this encounter Visit Diagnoses Diagnosis Type 2 diabetes mellitus without complication, without long-term current use of insulin ([facility])- Primary Mucopurulent chronic bronchitis ([facility]) Mucopurulent chronic bronchitis Stage 3a chronic kidney disease ([facility]) Hypertension associated with type 2 diabetes mellitus ([facility]) Chronic heart failure with preserved ejection fraction ([facility]) documented in this encounter Additional Health Concerns Assessment Noted Time PHQ-9 Depression Total Score: 0 10/11/19 22 10:50 AM MANAGER [employer] documented as of this encounter Care Teams Milk Pickup Driver Relationship Specialty Start Date End Date Sami Liriano DO [address] [place] [address] PCP - General FAMILY PRACTICE 12/24/19 documented as of this encounter
--- OUTSIDE RECORDS SUMMARY | 2024-09-19 12:12 | XMS_ITS | Encounter Summary ---
Author Organization [facility] Address [facility]. [place], [place] [address] [place] [id number] Care Team Providers Care Assembler For Puller Over Hand Name Role Phone Sami Liriano Nicole AGUIAR Primary Care Provider + Encounter Details Date Type Department Care Team (Latest Contact Info) Description 07/30/2024 Travel Social History Tobacco Use Types Packs/Day Years Used Date Smoking Tobacco: Former Cigarettes 0.5 12 0 09/30/1964 - 09/30/1976 Passive Smoke Exposure: Never Smokeless Tobacco: Never Alcohol Use Standard Drinks/Week Comments Not Currently 0 (1 standard drink = 0.6 oz pur e alcohol) 2 cocktails on some Sundays [facility] Utilities Answer Date Recorded In the past 12 months has e electric, gas, oil, or water [employer] threatened to shut off services in your [...] any time in the past [address] [facility], were you homeless or living in a half-way (including now)? 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 Not on file Not on franck e documented as of this encounter Functional Status * Are you deaf or do you have serious difficulty hearing Answer Date of Assessment Author Status No 02/08/2024 12:30 AM CDT TreversinChrista cagle RN Active * Are you blind or [...] Jensen RN Active documented in this encounter Plan of Treatment Upcoming Encounters Date Type Department Care Team (Late st Contact Info) Description 10/09/2024 9:30 AM CURRICULUM DIRECTOR Office Visit [facility] [phone] Carlos Farris MD [facility] [address] [facility] [place] [address] 11/02/2024 10:20 AM CURRICULUM DIRECTOR Office Visit [facility] Family & Internal Medicine - [address] [phone] Sami Liriano DO [address] [place] [address] documented as of this encounter Goals Goal Patient Goal Type Associated Problems Recent Progress Patient-Stated? Author Patient will return to prior living situation and remain independent in ADLs upon discharge from hospital Lifestyle No Sylvia Ventura RN documented as of this encounter Visit Diagnoses Not on filedocumented in this encounter Additional Health Concerns Assessment Noted Time PHQ-9 Depression Total Score: 0 10/11/19 22 10:50 AM CURRICULUM DIRECTOR documented as of this encounter Care Teams Assembler For Puller Over Hand Relationship Specialty Start Date End Date Sami Liriano DO [address] [place] [id number] PCP - General FAMILY PRACTICE 12/24/19 documented as of this encounter
--- OUTSIDE RECORDS SUMMARY | 2024-09-19 12:12 | XMS_ITS | Encounter Summary ---
Author Organization [facility] Address [facility] [place] [address] [place] [address] Care Team Providers Care Flight Kitchen Manager Name Role Phone Sami Liriano Primary Care Provider + Reason for Visit * Reason Onset Date Comments Results 08/12/2024 Encounter Details Date Type Department Care Team (Late st Contact Info) Description 08/12/[address] [phone] Mikayla aCsarez, [place] [address] Results Social History Tobacco Use Types Packs/Day Years Used Date Smoking Tobacco: Former Cigarettes 0.5 12 0 09/30/1964 - 09/30/1976 Passive Smoke Exposure: Never Smokeless Tobacco: Never Alcohol Use Standard Drinks/Week Comments Not Currently 0 (1 standard drink = 0.6 oz pur e alcohol) 2 cocktails on some Sundays [facility] Utilities Answer Date Recorded In [...] any time in the past 12 m [facility], were you homeless or living in a detention (including now)? 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 Answer Date of Assessment Author Status No 02/08/2024 12:30 AM Christa Jensen RN Active * Do you have serious difficulty walking or climbing stairs? Answer Date of Assessment Author Status No 02/08/2024 12:30 AM CDChrista Montaño RN Active * Do you have difficulty [...] documented in this encounter Progress Notes * Mikayla Casarez RN - 09/01/2024 10:52 AM CST Received a VM from patient. She state she is unable to answer her [tarun during the day. But states she has lost 12 pounds on her own. She states she is doing Great. That the diuretics are working. KER DUMP GROUNDS * Mikayla Casarez RN - 08/20/2024 9:31 AM CST Called patient. Left message for pt to return my call. Office number and extension provided. KER DUMP GROUNDS * Mikayla Casarez RN - 08/18/2024 2:03 PM CST Received a return call from pt. Urinating frequently. Swelling unchanged. She states some days, sheloses wt. But states other days, she gains it back. Today swelling is not bad. She states she has not gained any wt. In the last couple of days. Overall pt thinks the increased dose is working. KER DUMP GROUNDS * Mikayla Casarez RN - 08/18/2024 12:19 PM CST Called pt. Left messages for her to return my call. Office number and extension provided. KER DUMP GROUNDS * Mikayla Casarez RN - 08/13/2024 1:36 PM CST Called pt. Left message for pt to return my call. Office number and extension provided. KER DUMP GROUNDS * Mikayla Casarez RN - 08/12/2024 3:22 PM CST Images from the original note were not included. MD Mikayla Austin RN Labs have been reviewed. Can you ask her how her swelling is doing on the higher dose of torsemide. Called pt. Left message for pt to return my call. Office number and extension provided. KER DUMP GROUNDS documented in this encounter Plan of Treatment Upcoming Encounters Date Type Department Care Team (Late st Contact Info) Description 10/09/2024 9:30 AM CHECKER DUMP GROUNDS Office Visit [facility] [phone] Carlos Farris [facility] [address] [place] [address] 11/02/2024 10:20 AM CHECKER DUMP GROUNDS Office Visit [facility] Family & Internal Medicine - [address] [place] [phone] Sami Liriano DO [address] [place] [address] documented as of this encounter Goals Goal [...] Total Score: 0 10/11/19 22 10:50 AM CHECKER DUMP GROUNDS documented as of this encounter Care Teams Flight Kitchen Manager Relationship Specialty Start Date End Date Sami Liriano DO [address] [place] [id number] PCP - General FAMILY PRACTICE 12/24/19 documented as of this encounter
--- OUTSIDE RECORDS SUMMARY | 2024-09-19 12:13 | XMS_ITS | Encounter Summary ---
Author Organization [facility] Address [facility]. [place], [place] [id number] [place] [id number] Care Team Providers Care Vp Of Marketing Name Role Phone Sami Liriano DO Primary Care Provider + Reason for Visit * Reason Comments TCM The patient presents for tcm visit. The patient is c/o itching and decreased urine output. Encounter Details Date Type Department Care Team (Late st Contact Info) Description 02/17/2024 10:40 AM CDT Office Visit [facility] Family & Internal Medicine [address] [address] Sami Liriano DO [address] [place] [address] [id number] TCM (The patient presents for tcm visit. The patient is c/o itching and decreased urine output. ) Social History Tobacco Use Types Packs/Day Years Used Date Smoking Tobacco: Former Cigarettes 0.5 12 0 09/30/1964 - 09/30/1976 Passive Smoke Exposure: Never Smokeless Tobacco: Never Alcohol Use Standard Drinks/Week Comments Not Currently 0 (1 standard drink = 0.6 oz pur e alcohol) 2 cocktails on some Sundays [facility] Utilities Answer Date Recorded In the past 12 months has th e electric, gas, oil, or water company [...] any time in the past 12 m [facility], were you homeless or living in a care home (including now)? 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 Not on file Not on franck e documented as of this encounter Last Filed Vital Signs Vital Sign Reading Time Taken Comments Blood Pressure 118/52 02/17/2024 11:04 AM CDT Pulse 54 02/17/2024 11:04 AM CDT Temperature 36.4 ??C (97.5 ??F) 02/17/2024 1 1:04 AM CDT Respiratory Rate 16 02/17/2024 11:0 4 AM CDT Oxygen Saturation 97% 02/17/2024 11: 04 AM CDT Inhaled Oxygen Concentration - - Weight 112.1 kg (247 lb 1.6 oz) 024 11:04 AM CDT Height 152.4 cm (5') 02/17/2024 11:04 AM CDT Body Mass Index 48.26 02/17/2024 11:04 AM CDT documented in this encounter Functional [...] in this encounter Progress Notes * Sami Liriano DO - 02/17/2024 10:40 AM CDT Images from the original note were not included. GENERAL OFFICE VISIT Encounter Date: 02/17/2024 Chief Complaint: 69-year-old female presents for TCM (The patient presents for tcm visit. The patient is c/o itchingand decreased urine output. ) History of Present Illness: Transitional Care Note: Pt was admitted on: 02/07/24 Pt was discharged on: 02/12/24 Admit Diagnosis: HFpEF exacerbation, rash Discharge Diagnosis: See above Initial Nursing contact: See telephone encounter on: not performed Discharge note from Vianey Yang DO was reviewed Per their summary: Jolly Sargent is a 68-year-old female with past medical history of HFpEF, diabetes, hypertension, presents to the ER with shortness of breath and lower extremity edema. Patient was seen by her footwear machinery instructor today and directed to the ER. She has been taking 80 mg of Lasix in the morning, 80 mg in the afternoon, and 40 mg at night recently but still has shortness of breath and edema and low urine output. She has had some left-sided chest pain near her breast that lasted 20 minutes. No other chest pain. No fevers, chills, nausea, vomiting, dizziness etc. She has lower extremity edema in bothlegs. She was given 20 mg IV Lasix in the ER and I was asked to admit her. O2 sats currently stableon room air. Hospital Course: CHF exacerbation proBNP 141 Had preserved EF in 2020 Repeat echo EF 60-65%, mild LVH Worsening symptoms despite uptitrating outpatient Lasix IV Lasix 40 mg twice daily Telemetry Cardiology consulted Monitor weight/intake/output/labs Received IV lasix Switched to PO torsemide Clinically improved. Ok for discharge per cardiology Lower extremity swelling Suspect from CHF Dopplers negative for DVT Stopped amlodipine in case this is contributing to edema Improving with diuretics Lower extremity rash Appears somewhat eczematous/psoriatic in nature May need outpatient Derm workup Started on levaquin for possible cellulitis, will switch to keflex Suspect dermatitis more so than infectious etiology. Trial more potent steroid ointment. Advised patient to not scratch her legs as it will likely worsen the rash Outpatient follow up with PCP, recommend dermatology eval as well Hypokalemia Replete and monitor BOONE versus CKD 3 Creatinine 1.14 Was 1.09-1.2 earlier this year Cr trended up to 1.4. IV lasix held Monitor BMP. Switched to PO diuretic, will need outpatient BMP after d/c with PCP or card Mild normocytic anemia Hb 11.7 Monitor Transfuse as needed to keep hemoglobin greater than 7 Type II NIDDM With dyslipidemia Hold metformin Continue statin SSI/hypoglycemic protocol Hypertension BP up to 194/85 in ER Monitor with diuresis Amlodipine and HCTZ discontinued per card Lisinopril dose increased Spironolactone added Anxiety/depression No acute issues Resume home meds Since Discharge: Jolly has been doing adequate. Pt has diffuse itching and has redness on both legs. Pt does not appear to be taking Keflex anymore. Pt is also urinating less and noting increased swelling in both legs. No other new symptoms. Weight is improved by 5 lbs from exam on 02/07/24. No other new symptoms. ROS: Review of Systems Constitutional: Negative for fever and malaise/fatigue. Respiratory: Negative for shortness of breath. Cardiovascular: Positive for leg swelling. Negative for chest pain. Medications: Current Outpatient Medications: acetaminophen 325 MG tablet, Take 2 tablets (650 mg total) by mouth every 6 (six) hours as needed for Pain., Disp: , Rfl: albuterol (PROVENTIL) (2.5 MG/3ML) 0.083% nebulizer solution, Take 3 mLs (2.5 mg total) by nebulization every 6 (six) hours as needed for Wheezing., Disp: 360 mL, Rfl: 0 albuterol sulfate HFA 108 (90 Base) MCG/ACT inhaler, Inhale 2 puffs into the lungs every 4 (four) hours as needed for Wheezing or Shortness of breath., Disp: 18 g, Rfl: 2 atorvastatin (LIPITOR) 10 MG tablet, take 1 tablet by mouth every day at night (Patient taking differently: Take 1 tablet (10 mg total) by mouth daily.), Disp: 90 tablet, Rfl: 0 Mhuqtnv-Nnhcwijapmg-Ddcrvmysvh (BREZTRI AEROSPHERE) 160-9-4.8 MCG/ACT Aerosol, Inhale 2 Inhalationsinto the lungs 2 (two) times a day., Disp: 10.7 g, Rfl: 2 escitalopram (LEXAPRO) 20 MG tablet, TAKE 1 TABLET BY MOUTH EVERY DAY (Patient taking differently: Take 1 tablet (20 mg total) by mouth daily.), Disp: 90 tablet, Rfl: 1 hydrOXYzine (ATARAX) 25 MG tablet, Take 1 tablet (25 mg total) by mouth 3 (three) times daily as needed for Itching. Do not take with Benadryl., Disp: 30 tablet, Rfl: 0 ipratropium-albuterol (DUONEB) 0.5-2.5 (3) MG/3ML Solution, Take 3 mLs by nebulization., Disp: , Rfl: lisinopril (PRINIVIL) 20 MG tablet, Take 1 tablet (20 mg total) by mouth daily for 30 days., Disp: 30 tablet, Rfl: 0 magnesium oxide (MAG-OX) 400 (240 Mg) MG tablet, Take 1 tablet (400 mg total) by mouth 2 (two) times daily., Disp: , Rfl: metFORMIN ER (GLUCOPHAGE-XR) 500 MG 24 hr tablet, take 1 tablet by mouth every day with breakfast, Disp: 90 tablet, Rfl: 0 NEBULIZER DEVICE, DME,, Take 1 Device by nebulization every 6 (six) hours as needed., Disp: 1 Device, Rfl: 0 NEBULIZER/TUBING/MOUTHPIECE KIT, DME,, 1 kit by Other route every 6 (six) hours as needed., Disp: 1kit, Rfl: 0 potassium chloride CR (K-TAB) 10 MEQ Tab CR tablet, TAKE ONE TABLET DAILY Patient must be seen for further refills (Patient taking differently: Take 1 tablet (10 mEq total) by mouth daily.), Disp: 30tablet, Rfl: 0 predniSONE (DELTASONE) 20 MG tablet, Take 3 tablets for three days, then take 2 tablets for three days, then take 1 tablet for three days, Disp: 18 tablet, Rfl: 0 spironolactone (ALDACTONE) 25 MG tablet, Take 0.5 tablets (12.5 mg total) by mouth daily for 30 days., Disp: 15 tablet, Rfl: 0 tiZANidine (ZANAFLEX) 2 MG tablet, TAKE 1 TABLET(2 MG) BY MOUTH EVERY 6 HOURS NEEDED (Patient taking differently: Take 1 tablet (2 mg total) by mouth every 6 (six) hours as needed (spasms).), Disp: 20 tablet, Rfl: 0 torsemide (DEMADEX) 20 MG tablet, Take 2 tablets (40 mg total) by mouth daily., Disp: 60 tablet, Rfl: 2 traMADol (ULTRAM) 50 MG tablet, Take 1 tablet (50 mg total) by mouth every 6 (six) hours as needed for Pain. Indications: Chronic Pain, Disp: 60 tablet, Rfl: 0 triamcinolone (KENALOG) 0.5 % ointment, Apply topically 2 (two) times daily for 7 days., Disp: 15 g, Rfl: 0 Current Outpatient Medications on File Prior to [...] tablet (10 mg total) by mouth daily.) Jbymvwm-Jdbsqpotgzv-Cmohhjvwld (BREZTRI AEROSPHERE) 160-9-4.8 MCG/ACT Aerosol Inhale 2 Inhalations into the lungs 2 (two) times a day. escitalopram (LEXAPRO) 20 MG tablet TAKE 1 TABLET BY MOUTH EVERY DAY (Patient taking differently: Take 1 tablet (20 mg total) by mouth daily.) ipratropium-albuterol (DUONEB) 0.5-2.5 (3) MG/3ML Solution Take 3 mLs by nebulization. lisinopril (PRINIVIL) 20 MG tablet Take 1 tablet (20 mg total) by mouth daily for 30 days. magnesium oxide (MAG-OX) 400 (240 Mg) MG tablet Take 1 tablet (400 mg total) by mouth 2 (two) timesdaily. metFORMIN ER (GLUCOPHAGE-XR) 500 MG 24 hr tablet take 1 tablet by mouth every day with breakfast NEBULIZER DEVICE, DME, Take 1 Device by nebulization every 6 (six) hours as needed. NEBULIZER/TUBING/MOUTHPIECE KIT, DME, 1 kit by Other route every 6 (six) hours as needed. potassium chloride CR (K-TAB) 10 MEQ Tab CR tablet TAKE ONE TABLET DAILY Patient must be seen for further refills (Patient taking differently: Take 1 tablet (10 mEq total) by mouth daily.) spironolactone (ALDACTONE) 25 MG tablet Take 0.5 tablets (12.5 mg total) by mouth daily for 30 days. tiZANidine (ZANAFLEX) 2 MG tablet TAKE 1 TABLET(2 MG) BY MOUTH EVERY 6 HOURS NEEDED (Patient taking differently: Take 1 tablet (2 mg total) by mouth every 6 (six) hours as needed (spasms).) traMADol (ULTRAM) 50 MG tablet Take 1 tablet (50 mg total) by mouth every 6 (six) hours as needed for Pain. Indications: Chronic Pain triamcinolone (KENALOG) 0.5 % ointment Apply topically 2 (two) times daily for 7 days. No current facility-administered medications on file prior to visit. Review of patient's allergies indicates: Allergen Reactions Chocolate Hives Penicillins Rash Sulfa Antibiotics Rash Patient Active Problem List Diagnosis Alopecia Hypertension associated with type 2 diabetes mellitus ([facility]) Arthritis of left knee Overactive bladder Depression Pharyngoesophageal dysphagia ALLYSON positive Stage 3a chronic kidney disease ([facility]) Severe obstructive sleep apnea Hyperlipidemia associated with type 2 diabetes mellitus ([facility]) BMI 45.0-49.9, adult ([facility]) Generalized osteoarthritis of multiple sites Inflammatory arthritis Urinary tract infection Morbid (severe) obesity due to excess calories ([facility]) Hx of adenomatous colonic polyps Family hx of colon cancer Body mass index (BMI) 45.0-49.9, adult ([facility]) Current moderate episode of major depressive disorder without prior episode ([facility]) CHF (congestive heart failure) ([facility]) Past Medical History: Diagnosis Date Anxiety disorder, unspecified Arthritis Arthritis of left knee 11/08/2019 Depression Diabetes mellitus ([facility]) GERD (gastroesophageal reflux disease) Hypertension Overactive bladder Positive colorectal cancer screening using Cologuard test 04/19/2020 Added automatically from request for surgery [id number] Past Surgical History: Procedure Laterality Date ANKLE SURGERY left SECTION COLONOSCOPY N/A 04/27/2020 COLONOSCOPY WITH BIOPSY X 3 performed by Joel Keenan MD at [facility] OR COLONOSCOPY N/A 11/20/2023 Colonoscopy with Polypectomies performed by Joel Keenan MD at 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 Tobacco Use Smoking status: Former Current packs/day: 0.00 Average packs/day: 0.5 packs/day for 12.0 years (6.0 ttl pk-yrs) Types: Cigarettes Start date: 09/30/1964 Quit date: 09/30/1976 Years since quittin.4 Passive exposure: Never Smokeless tobacco: Never Vaping Use Vaping status: Never Used Substance and Sexual Activity Alcohol use: Not Currently Comment: 2 cocktails on some Sundays Drug use: Never Sexual activity: Not Currently Other Topics Concern Service No Blood Transfusions No Caffeine Concern Yes Comment: 2 cups Special Diet Yes Comment: low nithin and low carb Exercise No Social Determinants of Health Financial Resource Strain: Low Risk [...] (Medical): No Lack of Transportation (Non-Medical): No Intimate Partner Violence: Not At Risk (02/08/2024) Humiliation, Afraid, Rape, and Kick questionnaire Fear of Current or Ex-Partner: No Emotionally Abused: No Physically Abused: No Sexually Abused: No Housing Stability: Low Risk (02/08/2024) Housing Stability Vital Sign Unable to Pay for Housing in the Last Year: No Number of Times Moved in the Last Year: 1 Homeless in the Last Year: No Family History Problem Relation Name Age of [...] Crispin Sargent Mental Health Sister Myah Sargent Family Status Relation Name Status Mother Father Elvin Sargent Brother Joel Sargent (Not Specified) PAunt (Not Specified) MGM (Not Specified) PGF (Not Specified) Sister Isabel Sargent (Not Specified) Son Crispin Sargent (Not Specified) Sister Myah Sargent (Not Specified) No partnership data on file Objective: Filed Vitals: 02/17/24 1104 BP: 118/52 Pulse: (!) 54 Resp: 16 Temp: 97.5 ??F (36.4 ??C) TempSrc: Skin SpO2: 97% Weight: 112.1 kg (247 lb 1.6 oz) Height: 1.524 m (5') Physical Exam Vitals and nursing note reviewed. Constitutional: Appearance: She is well-developed. HENT: Head: Normocephalic and atraumatic. Right Ear: External ear normal. Left Ear: External ear normal. Eyes: Conjunctiva/sclera: Conjunctivae normal. Cardiovascular: Rate and Rhythm: Normal rate and regular rhythm. Heart sounds: Normal heart sounds. No murmur heard. No friction rub. No gallop. Pulmonary: Effort: Pulmonary effort is normal. Breath sounds: Normal breath sounds. Abdominal: Palpations: Abdomen is soft. Tenderness: There is no abdominal tenderness. Musculoskeletal: Cervical back: Neck supple. Right lower leg: Edema present. Left lower leg: Edema present. Comments: 1+ pitting edema B/L Skin: General: Skin is warm and dry. Comments: Notable erythema of the B/L LE's, no significant warmth, more consistent with dermatitis than cellulitis Neurological: General: No focal deficit present. Mental Status: She is alert. Psychiatric: Mood and Affect: Mood normal. Assessment & Plan: Jolly Deal was seen today for tcm. Diagnoses and all orders for this visit: Acute on chronic heart failure with preserved ejection fraction ([facility]) - COMPREHENSIVE METABOLIC PANEL; Future - CBC W/DIFF AUTOMATED; Future - VENIPUNC ARM DRAW - MAGNESIUM; Future - torsemide (DEMADEX) 20 MG tablet; Take 2 tablets (40 mg total) by mouth daily. - MAGNESIUM - CBC W/DIFF AUTOMATED - COMPREHENSIVE METABOLIC PANEL Contact dermatitis, unspecified contact dermatitis type, unspecified trigger - hydrOXYzine (ATARAX) 25 MG tablet; Take 1 tablet (25 mg total) by mouth 3 (three) times daily as needed for Itching. Do not take with Benadryl. - predniSONE (DELTASONE) 20 MG tablet; Take 3 tablets for three days, then take 2 tablets for threedays, then take 1 tablet for three days BOONE (acute kidney injury) ([facility]) Hypertension associated with type 2 diabetes mellitus ([facility]) Discussion & Summary: 1. Medications/DME - See orders. Recommended decreased Benadryl use. Monitor for HF symptoms closely. Call back sooner if worsening. 2. Lab/Diagnostics - See orders. 3. Education - Current treatment discussed and patient education given as appropriate. 4. Referrals - F/u with cardiology as scheduled later this week 5. RTC - 9 day(s) I personally spent a total of 37 minutes on the day of the encounter. This includes rjca-ze-rimw and ity-bury-rj-face time I provided on the day of the encounter & excludes time spent performing separately reportable services. Sami Liriano DO documented in this encounter Plan of Treatment Upcoming Encounters Date Type Department Care Team (Late st Contact Info) Description 10/09/2024 9:30 AM PURSE SEINER Office Visit [facility] [address] Carlos Farris MD [facility] [address] [place] [address] 11/02/2024 10:20 AM PURSE SEINER Office Visit [facility] Family & Internal Medicine - [place] [address] [place] [address] Sami Liriano DO [address] [place] [address] documented as of this encounter Goals Goal Patient Goal Type Associated Problems Recent Progress Patient-Stated? Author Patient will return to prior living situation and remain independent in ADLs upon discharge from hospital Lifestyle Sylvia Carvajal RN documented as of this encounter Procedures Procedure Name Priority Date/Time Associated Diagnosis Comments COMPREHENSIVE METABOLIC PANEL Routine 02/17/2024 11:48 AM CDT Acute on chronic heart failure with preserved ejection fraction (CMS/HCC HHS/HCC) CBC W/DIFF AUTOMATED Routine 02/17/2024 11:48 AM CDT Acute on chronic heart failure with preserved ejection fraction (CMS/HCC HHS/HCC) MAGNESIUM Routine 02/17/2024 11:48 AM CDT Acute on chronic heart failure with preserved ejection fraction (CMS/HCC HHS/HCC) VENIPUNC ARM DRAW Routine 02/17/2024 11: 35 AM CDT Acute on chronic heart failure with preserved ejection fraction (CMS/HCC HHS/HCC) documented in this encounter Results * (ABNORMAL) MAGNESIUM (02/17/2024 11:48 AM CDT) MAGNESIUM 2.5(H) 1.8 - 2.4 MG/DL 02/17/2024 7:42 PM CDT [facility] 02/17/2024 11:4 8 AM CDT Sami Liriano DO LABORATORY Final Re sult -[facility] [address] [place] [address], * (ABNORMAL) CBC W/DIFF AUTOMATED (02/17/2024 11:48 AM CDT) [facility] WBC 13.12(H) 4.00 - 10.80 x10'3/uL 02/17/2024 7:28 PM CDT [facility] RBC 4.43 4.10 - 5.40 x10'6/uL 02/17/2024 7:28 PM CDT [facility] HGB 12.2 12.0 - 16.0 G/DL 02/17/2024 7:28 PM CDT [facility] HCT 38.4 36.0 - 47.0 % 02/17/2024 7:28 PM CDT [facility] MCV 86.7 78.0 - 100.0 FL 02/17/2024 7:28 PM CDT [facility] MCH 27.5 27.0 - 31.0 PG 02/17/2024 7:28 PM CDT [facility] MCHC 31.8(L) 33.0 - 36.0 G/DL 02/17/2024 7:28 PM CDT [facility] RDW 14.7(H) 11.5 - 14.5 % 02/17/2024 7:28 PM CDT [facility] PLT 293 150 - 350 x10'3/uL 02/17/2024 7:28 PM CDT [facility] MPV 10.8(H) 7.4 - 10.4 FL 02/17/2024 7:28 PM T [facility] DIFFERENTIAL TYPE AUTOMATED DIFFERENTIAL 02/17/2024 7:29 PM T [facility] NEUTROPHILS % 56.7 % 02/17/2024 7:29 PM CDT [facility] LYMPHOCYTES % 28.3 % 02/17/2024 7:29 PM CDT [facility] MONOCYTES % 8.2 % 02/17/2024 7:29 PM CDT [facility] EOSINOPHILS % 6.0 % 02/17/2024 7:29 PM CDT [facility] BASOPHILS % 0.6 % 02/17/2024 7:29 PM CDT [facility] IMMATURE GRANS % 0.2 % 02/17/2024 7:29 PM CDT [facility] ABS. NEUTROPHILS 7.43 1.60 - 8.30 x10'3/uL 02/17/2024 7:29 PM CDT [facility] ABS. LYMPHOCYTES 3.71 0.80 - 4.70 x10'3/uL 02/17/2024 7:29 PM CDT [facility] ABS. MONOCYTES 1.08 0.00 - 1.50 x10'3/uL 02/17/2024 7:29 PM CDT [facility] ABS. EOSINOPHILS 0.79(H) 0.00 - 0.40 x10'3/uL 02/17/2024 7:29 PM CDT [facility] ABS. BASOPHILS 0.08 0.00 - 0.20 x10'3/uL 02/17/2024 7:29 PM CDT [facility] ABS. IMMATURE GRANULOCYTES 0.03 0.00 - 0.03 x10'3/uL 02/17/2024 7:29 PM CDT [facility] 02/17/2024 11:4 8 AM CDT us Sami Liriano DO LABORATORY Final Re sult [facility] [address] [place] [address], [place] [phone] * (ABNORMAL) COMPREHENSIVE METABOLIC PANEL (02/17/2024 11:48 AM CDT) SODIUM S/P/B 138 136 - 145 MMOL/L 02/17/2024 7:42 PM CDT [facility] POTASSIUM S/P/B 5.0 3.5 - 5.1 MMOL/L 02/17/2024 7:42 PM CDT [facility] CHLORIDE S/P/B 101 98 - 107 MMOL/L 02/17/2024 7:42 PM CDT [facility] CO2 25.9 21 - 32 MMOL/L 02/17/2024 7:42 PM CDT [facility] GLUCOSE 122(H) 70 - 99 MG/DL 02/17/2024 7:42 PM CDT [facility] BUN 47(H) 7 - 18 MG/DL 02/17/2024 7:42 PM T [facility] CREATININE S/P/B 2.24(H) 0.55 - 1.02 MG/DL 02/17/2024 7:42 PM T [facility] CALCIUM S/P/B 9.8 8.4 - 10.5 MG/DL 02/17/2024 7:42 PM CDT [facility] BILIRUBIN TOTAL S/P/B 1.0 0.2 - 1.0 MG/DL 02/17/2024 7:42 PM T [facility] ALKALINE PHOSPHATASE S/P/B 90 55 - 142 U/L 02/17/2024 7:42 PM CDT [facility] AST 24 15 - 37 U/L 02/17/2024 7:42 PM CDT [facility] ALT 28 14 - 59 U/L 02/17/2024 7:42 PM CDT [facility] TOTAL PROTEIN S/P/B 7.5 6.4 - 8.2 G/DL 02/17/2024 7:42 PM T [facility] ALBUMIN S/P/B 4.3 3.4 - 5.0 G/DL 02/17/2024 7:42 PM T [facility] ANION GAP 11.1 5 - 15 MMOL/L 02/17/2024 7:42 PM CDT [facility] Comment:REFERENCE RANGE NOT ESTABLISHED OSMOLALITY (CALC) 300 MOSM/KG 024 7:42 PM CDT [facility] Comment:REFERENCE RANGE NOT ESTABLISHED GFR ESTIMATE 23(L) >90 ML/MIN/1. 73 M2 02/17/2024 7:42 PM CDT [facility] GFR NOTES GFR REFERENCE S: 02/17/2024 7:42 PM CDT [facility] Comment: THE ESTIMATED GFR [...] ml/min/1.73 m2 G5,KIDNEY FAILURE: <15 ml/min/1.73 m2 02/17/2024 11:4 8 AM CDT us Sami Liriano DO LABORATORY Final Re sult [facility] [address] [place] [address], [place] [phone] documented in this encounter Visit Diagnoses Diagnosis Acute on chronic heart failure with preserved ejection fraction ([facility] HHS/HCC)- Primary Contact dermatitis, unspecified contact dermatitis type, unspecified trigger BOONE (acute kidney injury) ([facility]) Acute kidney failure, unspecified Hypertension associated with type 2 diabetes mellitus ([facility]) documented in this encounter Additional Health Concerns Assessment Noted Time PHQ-9 Depression Total Score: 0 10/11/19 22 10:50 AM PURSE SEINER documented as of this encounter Care Teams Vp Of Marketing Relationship Specialty Start Date End Date Sami Liriano DO [facility] [place] [address] PCP - General FAMILY PRACTICE 12/24/19 documented as of this encounter
--- OUTSIDE RECORDS SUMMARY | 2024-09-19 12:13 | XMS_ITS | Encounter Summary ---
Author Organization [facility] Address [facility]. [place], [place] [address] [place] [address] Care Team Providers Care Lube Man Name Role Phone Sami Liriano DO Primary Care Provider + Encounter Details Date Type Department Care Team (Late st Contact Info) Description 2024 MyChart Message Enc [facility] Medical Group Family & Internal Medicine [id number] [place] [address] Sami Liriano DO [facility] [place] [address] Return to work. Social History Tobacco Use Types Packs/Day Years Used Date Smoking Tobacco: Former Cigarettes 0.5 12 0 09/30/1964 - 09/30/1976 Passive Smoke Exposure: Never Smokeless Tobacco: Never Alcohol Use Standard Drinks/Week Comments Not Currently 0 (1 standard drink = 0.6 oz pur e alcohol) 2 cocktails on some Sundays [facility] Utilities Answer Date Recorded In the past [...] any time in the past 12 m [facility], were you homeless or living in a correction (including now)? 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 documented in this encounter Plan of Treatment Upcoming Encounters Date Type Department Care Team (Late st Contact Info) Description 10/09/2024 9:30 AM CLERICAL METHODS ANALYST Office Visit [facility] [phone] Carlos Farris MD [facility] [address] [place] [address] 11/02/2024 10:20 AM CLERICAL METHODS ANALYST Office Visit [facility] Medical Group Family & Internal Medicine - [address] [phone] Sami Liriano DO [address] [place] [address] documented as of this encounter Goals Goal [...] Total Score: 0 10/11/19 22 10:50 AM CLERICAL METHODS ANALYST documented as of this encounter Care Teams Lube Man Relationship Specialty Start Date End Date Sami Liriano DO [address] [place] [address] PCP - General FAMILY PRACTICE 12/24/19 documented as of this encounter
--- OUTSIDE RECORDS SUMMARY | 2024-09-19 12:13 | XMS_ITS | Encounter Summary ---
Author Organization [facility] Address [facility]. [place], [place] [id number] [place] [address] Care Team Providers Care Moisture Tester Name Role Phone Sami Liriaon DO Primary Care Provider + Reason for Visit * Reason Onset Date Comments Medication 03/31/2024 Encounter Details Date Type Department Care Team (Late st Contact Info) Description 03/31/2024 Telephone [facility] Medical Group Family & Internal Medicine [facility] [address] [place] [address] Sami Liriano DO [address] [place] [address] Medication Social History Tobacco Use Types Packs/Day Years Used Date Smoking Tobacco: Former Cigarettes 0.5 12 0 09/30/1964 - 09/30/1976 Passive Smoke Exposure: Never Smokeless Tobacco: Never Alcohol Use Standard Drinks/Week Comments Not Currently 0 (1 standard drink = 0.6 oz pur e alcohol) 2 cocktails on some Sundays [facility] Utilities Answer Date Recorded In the [...] any time in the past 12 m [facility], were you homeless or living in a usp (including now)? No 02/08/2024 Comments No Sex and Gender Information Value Date Recorded Sex Assigned at Not on file Legal Sex Female 12:43 PM MISSILE CONTROL PILOT Gender Identity Female 12/18/2021 6:31 AM CDT [...] Progress Notes * Sami Liriano DO - 03/31/2024 3:09 PM CDT Will try prednisone this time; don't suspect allergy to medication. Will need to further assess at next OV. * Sami Liriano DO - 03/31/2024 3:09 PM CDT ----- Message from Brooke Romeo sent at 03/31/2024 2:56 PM CDT ----- Regarding: FW: itching Contact: Please advise. ----- Message ----- From: Jolly Sargent Sent: 03/31/2024 2:49 PM CDT To: John Vera Nurse Subject: itching Good afternoon I do not understand why I continue to have this inching. First it was my leg when they were red and swollen, then a few weeks ago it went to my hands and arms, they did not turn red. The meds you sent me took it away. Now 2 weeks later my hands are inching again. I am scratching again. Could I be allergic to one of my meds? Why would it start now? Could you please order the same as last time. Or whatever because it's getting worst again and my appointment on Thank You for your time. Toyin Sargent documented in this encounter Plan of Treatment Upcoming Encounters Date Type Department Care Team (Late st Contact Info) Description 10/09/2024 9:30 AM MISSILE CONTROL PILOT Office Visit [facility]-[address] [phone] Carlos Farris MD [facility] [address] [place] [address] 11/02/2024 10:20 AM MISSILE CONTROL PILOT Office Visit [facility] Medical Group Family & Internal Medicine - [address] [phone] Sami Liriano DO [address] [place] [address] documented as of this encounter Goals Goal Patient Goal Type Associated Problems Recent Progress Patient-Stated? Author Patient will return to prior living situation and remain independent in ADLs upon discharge from hospital Lifestyle Sylvia Carvajal, RN documented as of this encounter Visit Diagnoses Diagnosis Itching of both hands- Primary documented in this encounter Additional Health Concerns Assessment Noted Time PHQ-9 Depression Total Score: 0 10/11/19 22 10:50 AM MISSILE CONTROL PILOT documented as of this encounter Care Teams Moisture Tester Relationship Specialty Start Date End Date Sami Lirinao DO [address] [place] [address] PCP - General FAMILY PRACTICE 12/24/19 documented as of this encounter
--- OUTSIDE RECORDS SUMMARY | 2024-09-19 12:13 | XMS_ITS | Encounter Summary ---
Author Organization [facility] Address [facility] [address] [place] [address] Care Team Providers Care Field Assessor Name Role Phone Sami Liriano Primary Care Provider + Reason for Visit * Reason Onset Date Comments Called To Cancel Office Appt. 03/06/2024 Encounter Details Date Type Department Care Team (Late st Contact Info) Description 03/06/2024 Telephone [facility] Medical [facility] Orthopedic & Sports Medicine - [place] [address] [place], [place] [address] [phone] Manuelito Marcelino PA [address] [place] [address] Called To Cancel Office Appt. Social History Tobacco Use Types Packs/Day Years Used Date Smoking Tobacco: Former Cigarettes 0.5 12 0 09/30/1964 - 09/30/1976 Passive Smoke Exposure: Never Smokeless Tobacco: Never Alcohol Use Standard Drinks/Week Comments Not Currently 0 (1 standard drink = 0.6 oz pur e alcohol) 2 cocktails on some Sundays [facility] Utilities Answer Date Recorded In the [...] time in the past [address] [facility], were you homeless or living in a long-term (including now)? No 02/08/2024 Comments No Sex and Gender Information Value Date Recorded Sex Assigned at Not on file Legal Sex Female 12:43 PM LINE STAKER Gender Identity Female 12/18/2021 6:31 AM CDT [...] documented in this encounter Progress Notes * Smita Arechiga RN - 03/06/2024 9:20 AM CDT Thank you for the information. * Cherelle Paz MA - 03/06/2024 9:03 AM CDT Patient called in and stated she had an appointment with Manuelito this morning and her sister (who is handicapped) had just fallen, and would not be able to make the appointment in time and needs to takecare of this situation first. I offered to reschedule appointment, however, patient wanted to call back in. I informed her she can call when she is ready and hoped her and her sister well. She thanked me and we ended phone call. Appointment has been cancelled. documented in this encounter Plan of Treatment Upcoming Encounters Date Type Department Care Team (Late st Contact Info) Description 10/09/2024 9:30 AM LINE STAKER Office Visit [facility]-[address] [phone] Carlos Farris MD [address] [facility] [address] [facility] [place] [address] 11/02/2024 10:20 AM LINE STAKER Office Visit [facility] Medical Group Family & Internal Medicine - [address] [phone] Sami Liriano DO [address] [place] [address] documented as of this encounter Goals Goal Patient Goal Type Associated Problems Recent Progress Patient-Stated? Author Patient will return to prior living situation and remain independent in ADLs upon discharge from hospital Lifestyle No Sylvia Ventura, RN documented as of this encounter Visit Diagnoses Not on filedocumented in this encounter Additional Health Concerns Assessment Noted Time PHQ-9 Depression Total Score: 0 10/11/19 22 10:50 AM LINE STAKER documented as of this encounter Care Teams Field Assessor Relationship Specialty Start Date End Date Sami Liriano DO [address] [place] [address] PCP - General FAMILY PRACTICE 12/24/19 documented as of this encounter
--- OUTSIDE RECORDS SUMMARY | 2024-09-19 12:13 | XMS_ITS | Encounter Summary ---
Author Organization [facility] Address [facility] [place], [place] [address] [place] [address] Care Team Providers Care Planning Supervisor Name Role Phone Sami Liriano Nicole AGUIAR Primary Care Provider + Encounter Details Date Type Department Care Team (Latest Contact Info) Description 02/17/2024 Travel Social History Tobacco Use Types Packs/Day Years Used Date Smoking Tobacco: Former Cigarettes 0.5 12 0 09/30/1964 - 09/30/1976 Passive Smoke Exposure: Never Smokeless Tobacco: Never Alcohol Use Standard Drinks/Week Comments Not Currently 0 (1 standard drink = 0.6 oz pur e alcohol) 2 cocktails on some Sundays [facility] Utilities Answer Date Recorded In the past 12 months has e electric, gas, oil, or water [employer] threatened to shut off services in your [...] were you homeless or living in a chcf (including now)? 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 Not on [...] st Contact Info) Description 10/09/2024 9:30 AM MEDICAL TRANSCRIPTION SUPERVISOR Office Visit [facility]-[address] [phone] Carlos Farris MD [facility] Suite [facility] [place] [address] 11/02/2024 10:20 AM MEDICAL TRANSCRIPTION SUPERVISOR Office Visit [facility] Medical Group Family & Internal Medicine - [address] [phone] Sami Liriano DO [address] [place] [address] documented as of this encounter Goals Goal [...] Total Score: 0 10/11/19 22 10:50 AM MEDICAL TRANSCRIPTION SUPERVISOR documented as of this encounter Care Teams Planning Supervisor Relationship Specialty Start Date End Date Sami Liriano DO [address] [place] [address] PCP - General FAMILY PRACTICE 12/24/19 documented as of this encounter
--- OUTSIDE RECORDS SUMMARY | 2024-09-19 12:13 | XMS_ITS | Encounter Summary ---
Author Organization [facility] Address [facility] [facility]. [place], [place] [address] [place] [address] Care Team Providers Care Fire Investigation Manager Name Role Phone Sami Liriano DO Primary Care Provider + Reason for Visit * Reason Onset Date Comments Results 03/09/2024 Encounter Details Date Type Department Care Team (Late st Contact Info) Description 03/09/2024 Telephone [facility] Medical Group Family & Internal Medicine [facility] [address] [place] [address] Sami Liriano DO [address] [place] [address] Results Social History Tobacco Use Types Packs/Day Years Used Date Smoking Tobacco: Former Cigarettes 0.5 12 0 09/30/1964 - 09/30/1976 Passive Smoke Exposure: Never Smokeless Tobacco: Never Alcohol Use Standard Drinks/Week Comments Not Currently 0 (1 standard drink = 0.6 oz pur e alcohol) 2 cocktails on some Sundays [facility] Utilities Answer Date Recorded In the past [...] any time in the past 12 m [facility], were you homeless or living in a nursing home (including now)? 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 The patient v/u. Lab orders placed. ----- Message from Sami Liriano DO sent at 03/05/2024 3:42 PM CDT ----- Kidney function stable. Recommend repeat CBC, CMP, and magnesium in 2 weeks to ensure stability. Can likely decrease checks after this assuming continued stability. documented in this encounter Plan of Treatment Upcoming Encounters Date Type Department Care Team (Late st Contact Info) Description 10/09/2024 9:30 AM LABOR CREW SUPERVISOR Office Visit [facility]-[address] [phone] Carlos Farris MD Three [facility] [address] [place] [address] 11/02/2024 10:20 AM LABOR CREW SUPERVISOR Office Visit [facility] Medical Group Family & Internal Medicine - [address] [phone] Sami Liriano DO [address] [place] [phone] documented as of this encounter Goals Goal Patient Goal Type Associated Problems Recent Progress Patient-Stated? Author Patient will return to prior living situation and remain independent in ADLs upon discharge from hospital Lifestyle No Sylvia Ventura, RN documented as of this encounter Results * MAGNESIUM (03/24/2024 10:56 AM CDT) MAGNESIUM 2.0 1.8 - 2.4 MG/DL 03/24/2024 3:47 PM CDT [facility] 03/24/2024 10:5 6 AM CDT Sami Liriano DO LABORATORY Final Re sult [facility] [address] [place] [address], [place] [phone] * (ABNORMAL) COMPREHENSIVE METABOLIC PANEL (03/24/2024 10:56 AM CDT) SODIUM S/P/B 142 136 - 145 MMOL/L 03/24/2024 3:47 PM CDT [facility] POTASSIUM S/P/B 4.6 3.5 - 5.1 MMOL/L 03/24/2024 3:47 PM CDT [facility] CHLORIDE S/P/B 105 98 - 107 MMOL/L 03/24/2024 3:47 PM CDT [facility] CO2 28.0 21 - 32 MMOL/L 03/24/2024 3:47 PM CDT [facility] GLUCOSE 118(H) 70 - 99 MG/DL 03/24/2024 3:47 PM CDT [facility] BUN 34(H) 7 - 18 MG/DL 03/24/2024 3:47 PM CDT [facility] CREATININE S/P/B 1.35(H) 0.55 - 1.02 MG/DL 03/24/2024 3:47 PM T [facility] CALCIUM S/P/B 9.3 8.4 - 10.5 MG/DL 03/24/2024 3:47 PM CDT [facility] BILIRUBIN TOTAL S/P/B 1.7(H) 0.2 - 1.0 MG/DL 03/24/2024 3:47 PM CDT [facility] ALKALINE PHOSPHATASE S/P/B 85 55 - 142 U/L 03/24/2024 3:47 PM CDT [facility] AST 15 15 - 37 U/L 03/24/2024 3:47 PM CDT [facility] ALT 21 14 - 59 U/L 03/24/2024 3:47 PM CDT [facility] TOTAL PROTEIN S/P/B 7.3 6.4 - 8.2 G/DL 03/24/2024 3:47 PM CDT [facility] ALBUMIN S/P/B 4.0 3.4 - 5.0 G/DL 03/24/2024 3:47 PM T [facility] ANION GAP 9.0 5 - 15 MMOL/L 03/24/2024 3:47 PM CDT [facility] Comment:REFERENCE RANGE NOT ESTABLISHED OSMOLALITY (CALC) 303 MOSM/KG 024 3:47 PM CDT [facility] Comment:REFERENCE RANGE NOT ESTABLISHED GFR ESTIMATE 42(L) >90 ML/MIN/1. 73 M2 03/24/2024 3:47 PM CDT [facility] GFR NOTES GFR REFERENCE S: 03/24/2024 3:47 PM CDT [facility] Comment: THE ESTIMATED GFR IS CALCULATED [...] ml/min/1.73 m2 G5,KIDNEY FAILURE: <15 ml/min/1.73 m2 03/24/2024 10:5 6 AM CDT Sami Liriano DO LABORATORY Final Re sult [facility] [address] [place] [address], * (ABNORMAL) CBC W/DIFF AUTOMATED (03/24/2024 10:56 AM CDT) WBC 10.07 4.00 - 10.80 x10'3/uL 03/24/2024 3:00 PM CDT [facility] RBC 4.55 4.10 - 5.40 x10'6/uL 03/24/2024 3:00 PM CDT [facility] HGB 12.8 12.0 - 16.0 G/DL 03/24/2024 3:00 PM CDT [facility] HCT 39.0 36.0 - 47.0 % 03/24/2024 3:00 PM CDT [facility] MCV 85.7 78.0 - 100.0 FL 03/24/2024 3:00 PM CDT -[facility] MCH 28.1 27.0 - 31.0 PG 03/24/2024 3:00 PM CDT [facility] MCHC 32.8(L) 33.0 - 36.0 G/DL 03/24/2024 3:00 PM CDT [facility] RDW 14.5 11.5 - 14.5 % 03/24/2024 3:00 PM CDT [facility] 274 150 - 350 x10'3/uL 03/24/2024 3:00 PM CDT [facility] MPV 10.0 7.4 - 10.4 FL 03/24/2024 3:00 PM CDT [facility] DIFFERENTIAL TYPE AUTOMATED DIFFERENTIAL 03/24/2024 3:00 PM CDT [facility] NEUTROPHILS % 54.7 % 03/24/2024 3:00 PM CDT [facility] LYMPHOCYTES % 35.0 % 03/24/2024 3:00 PM CDT [facility] MONOCYTES % 8.2 % 03/24/2024 3:00 PM CDT [facility] EOSINOPHILS % 1.6 % 03/24/2024 3:00 PM CDT [facility] BASOPHILS % 0.3 % 03/24/2024 3:00 PM CDT [facility] IMMATURE GRANS % 0.2 % 03/24/2024 3:00 PM CDT [facility] ABS. NEUTROPHILS 5.51 1.60 - 8.30 x10'3/uL 03/24/2024 3:00 PM CDT [facility] ABS. LYMPHOCYTES 3.52 0.80 - 4.70 x10'3/uL 03/24/2024 3:00 PM CDT [facility] ABS. MONOCYTES 0.83 0.00 - 1.50 x10'3/uL 03/24/2024 3:00 PM CDT [facility] ABS. EOSINOPHILS 0.16 0.00 - 0.40 x10'3/uL 03/24/2024 3:00 PM CDT [facility] ABS. BASOPHILS 0.03 0.00 - 0.20 x10'3/uL 03/24/2024 3:00 PM CDT [facility] ABS. IMMATURE GRANULOCYTES 0.02 0.00 - 0.03 x10'3/uL 03/24/2024 3:00 PM CDT -[facility] 03/24/2024 10:5 6 AM CDT Sami Liriano DO LABORATORY Final Re sult [facility] [address] [place] [address], documented in this encounter Visit Diagnoses Diagnosis Renal failure- Primary Renal failure, unspecified Acute on chronic heart failure with preserved ejection fraction ([facility] HHS/HCC) Acute heart failure, unspecified heart failure type ([facility] HHS/[facility]) documented in this encounter Additional Health Concerns Assessment Noted Time PHQ-9 Depression Total Score: 0 10/11/19 22 10:50 AM LABOR CREW SUPERVISOR documented as of this encounter Care Teams Fire Investigation Manager Relationship Specialty Start Date End Date Sami Liriano DO [address] [place] [address] PCP - General FAMILY PRACTICE 12/24/19 documented as of this encounter
--- OUTSIDE RECORDS SUMMARY | 2024-09-19 12:13 | XMS_ITS | Encounter Summary ---
Author Organization [facility] Address [facility]. [place], [place] [address] [place] [id number] Care Team Providers Care Freelance Graphic Designer Name Role Phone Sami Liriano Primary Care Provider + Reason for Visit * Reason Comments Lipids 2 month follow up Encounter Details Date Type Department Care Team (Late st Contact Info) Description 05/04/2024 12:00 PM CDT [facility] [address] [facility] [place] [address] [place], [place] [phone] Blaire Obrien FNP 3 [facility] [address] [place], [place] [phone] Lipids (2 month follow up) Social History Tobacco Use Types Packs/Day Years Used Date Smoking Tobacco: Former Cigarettes 0.5 12 0 09/30/1964 - 09/30/1976 Passive Smoke Exposure: Never Smokeless Tobacco: Never Alcohol Use Standard Drinks/Week Comments Not Currently 0 (1 standard drink = 0.6 oz pur e alcohol) 2 cocktails on some Sundays [facility] Utilities Answer Date Recorded In the [...] any time in the past 12 m [facility], were you homeless or living in a snf (including now)? 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 on file Not on file Not on franck e documented as of this encounter Last Filed Vital Signs Vital Sign Reading Time Taken Comments Blood Pressure 154/68 05/04/2024 11:52 AM CDT Pulse 87 05/04/2024 11:52 AM CDT Temperature - - Respiratory Rate - - Oxygen Saturation 95% 05/04/2024 11:52 AM CDT Inhaled Oxygen Concentration - - Weight 109.8 kg (242 lb) 05/04/2024 11:52 AM CDT Height 152.4 cm (5') 05/04/2024 11:52 AM CDT Body Mass Index 47.26 05/04/2024 11:52 AM CDT documented in this encounter Functional [...] Assessment Author Status No 02/08/2024 12:30 AM SEANT Christa Hodgson RN Active * Do you [...] Date Author Status No 02/08/2024 12:30 AM SEANT Christa Hodgson RN Active documented in this encounter Progress Notes * QUETA Ramos - 05/04/2024 12:00 PM CDT Images from the original note were not included. [place], [place] [address] Cardiology Consult PCP: Sami Liriano DO Cardiac Problem List HTN HFpEF HLD Former Smoker Interval History She is presenting today for 2-month follow up. She continues to report dyspnea on exertion and lower extremity edema worse as the day goes on. She gets short of breath walking less than 300 feet. Sheonly occasionally uses inhalers and has not had PFTs as previously ordered by PCP. She states she is no longer using the Breztri daily. She denies any chest discomfort dizziness, lightheadedness, sync ope, near syncope, PND, orthopnea. Blood pressures at home running 140s to 150s/60s. Her primary complaints in addition to shortness of breath include tremors that started after hospitalization in January as well as itchy rash bilateral anterior shins left greater than right and bilateral fingertips. This started during her hospitalization in January 2024. History Ms. Jolly Sargent is a pleasant 69-year-old female w/ aforementioned PMH. Patient was seen in clinic for initial evaluation on 02/07/2024. Patient presents for evaluation of heart failure. She has been seeing her primary care physician for lower extremity edema and shortness of breath. She has been titrated on Lasix with some improvement initially. However since she has noticed worsening lower extremity edema shortness of breath and weight gain. She has also noticed decreased urine output. States in the past she has been incontinent for many years and has to change her diapers 4-7 times per day. She late December noticed that she was no longer urinating. She went to the ER. They gave her IV Lasix with good output. They did check a postvoid residual and she had postvoid residual 150. They put in Natarajan catheter and had her follow-up with urology. She saw urology and was told that her bladder was emptying fine. Her Natarajan was taken out. She her Lasix was increased to80 in the morning 80 in the afternoon 40 in the evening. Despite this higher dose urine output remains poor. She has not urinated since 4 this morning. Only urinates about once a day. Weight is up abo ut 4 pounds in the past 5 days. She was sent to the ER for admission for HF exacerbation. 02/21/24 patient was last in the office to see Dr. Farris posthospitalization. Since discharge her weight increased by 5 mg and her UOP decreased. Her torsemide was increased to 40 mg QD. She had labwork completed, which showed a Cr up to 2.24. States that since then she continues to have some lower extremity edema. Her weight is stable at 247 lbs. She does say that she is dizzy if she takes all her medication at once. Plan was to repeat her labs. Past Medical History: Diagnosis Date Anxiety disorder, unspecified Arthritis Arthritis of left knee 11/08/2019 Depression Diabetes mellitus ([facility]) GERD (gastroesophageal reflux disease) Hypertension Overactive bladder Positive colorectal cancer screening using Cologuard test 04/19/2020 Added automatically from request for surgery [id number] Past Surgical History: Procedure Laterality Date ANKLE SURGERY left SECTION COLONOSCOPY N/A 04/27/2020 COLONOSCOPY WITH BIOPSY X 3 performed by Joel Keenan MD at [facility] OR COLONOSCOPY N/A 11/20/2023 Colonoscopy with Polypectomies performed by Joel Keenan MD at [facility] OR EGD EYE SURGERY FRACTURE SURGERY HERNIA REPAIR HYSTERECTOMY JOINT REPLACEMENT SHOULDER SURG PROC UNLISTED right TONSILLECTOMY TOTAL KNEE ARTHROPLASTY right Social History Tobacco Use Smoking status: Former Current packs/day: 0.00 Average packs/day: 0.5 packs/day for 12.0 years (6.0 ttl pk-yrs) Types: Cigarettes Start date: 09/30/1964 Quit date: 09/30/1976 Years since quittin.6 Passive exposure: Never Smokeless tobacco: Never Vaping Use Vaping status: Never Used Substance Use Topics Alcohol use: Not Currently Comment: 2 cocktails on some Sundays Drug use: Never Family History Problem Relation Name Age of Onset Alzheimers Mother Heart Attack Father Elvin Sargent Heart Disease Father Elvin Sargent Alzheimers Father Elivn Sargent Alcohol Abuse Father Elvin Sargent Prostate Cancer Brother Joel Sargent Alcohol Abuse Brother Joel Sargent Cancer Brother Joel Sargent prostate Colon Cancer Paternal Aunt Alzheimers Maternal Grandmother Heart Disease Paternal Grandfather Alcohol Abuse Sister Isabel Sargent Diabetes Son Crispin Sargent Hypertension Son Crispin Sargent Stroke Son Crispin Sargent Mental Health Sister Myah Sargent Prior to Admission medications Medication Sig Start Date End Date Taking? Authorizing Provider acetaminophen 325 MG tablet Take 2 tablets (650 mg total) by mouth every 6 (six) hours as needed for Pain. Doc Pre[facility] Abstract albuterol (PROVENTIL) (2.5 MG/3ML) 0.083% nebulizer solution Take 3 mLs (2.5 mg total) by nebulization every 6 (six) hours as needed for Wheezing. 12/06/23 Sami Liriano DO albuterol sulfate HFA 108 (90 Base) MCG/ACT inhaler Inhale 2 puffs into the lungs every 4 (four) hours as needed for Wheezing or Shortness of breath. 07/26/23 Sami Liriano DO atorvastatin (LIPITOR) 10 MG tablet take 1 tablet by mouth every day at night Patient taking differently: Take 1 tablet (10 mg total) by mouth daily. 10/21/23 Sami Liriano DO Dppjxci-Rrgqgcokgpg-Ylibrzvrlm (BREZTRI AEROSPHERE) 160-9-4.8 MCG/ACT Aerosol Inhale 2 Inhalations into the lungs 2 (two) times a day. 12/12/23 JENNIFER Davila escitalopram (LEXAPRO) 20 MG tablet TAKE 1 TABLET BY MOUTH EVERY DAY Patient taking differently: Take 1 tablet (20 mg total) by mouth daily. 08/28/23 Sami Liriano DO hydrOXYzine (ATARAX) 25 MG tablet Take 1 tablet (25 mg total) by mouth 3 (three) times daily as needed for Itching. 04/22/24 Sami Liriano DO ipratropium-albuterol (DUONEB) 0.5-2.5 (3) MG/3ML Solution Take 3 mLs by nebulization. 12/06/23 Default History Genericprovider lisinopril (PRINIVIL) 20 MG tablet TAKE 1 TABLET(20 MG) BY MOUTH DAILY 03/25/24 Vianey Yang, magnesium oxide (MAG-OX) 400 (240 Mg) MG tablet Take 1 tablet (400 mg total) by mouth 2 (two) timesdaily. Default History Genericprovider metFORMIN ER (GLUCOPHAGE-XR) 500 MG 24 hr tablet take 1 tablet by mouth every day with breakfast 04/30/24 Sami Liriano, DO NEBULIZER DEVICE, DME, Take 1 Device by nebulization every 6 (six) hours as needed. 11/18/23 Margarita Liriano, DO NEBULIZER/TUBING/MOUTHPIECE KIT, DME, 1 kit by Other route every 6 (six) hours as needed. 11/18/23 Sami Liriano, DO potassium chloride CR (K-TAB) 10 MEQ Tab CR tablet Take 1 tablet (10 mEq total) by mouth daily. 03/02/24 Sami Liriano, DO predniSONE (DELTASONE) 20 MG tablet Take 3 tablets for three days, then take 2 tablets for three days, then take 1 tablet for three days 03/31/24 Sami Liriano, DO spironolactone (ALDACTONE) 25 MG tablet TAKE 1/2 TABLET(12.5 MG) BY MOUTH DAILY 03/11/24 Sami Liriano, DO tiZANidine (ZANAFLEX) 2 MG tablet TAKE 1 TABLET(2 MG) BY MOUTH EVERY 6 HOURS NEEDED 04/06/24 Sami Liriano, DO torsemide (DEMADEX) 20 MG tablet Take 2 tablets (40 mg total) by mouth daily. 02/17/24 Sami Liriano, DO traMADol (ULTRAM) 50 MG tablet Take 1 tablet (50 mg total) by mouth every 6 (six) hours as needed for Pain. Indications: Acute Pain < 7 Day Supply, Chronic Pain 04/22/24 Sami Liriano DO Review of patient's allergies indicates: Allergen Reactions Chocolate Hives Penicillins Rash Sulfa Antibiotics Rash Review of Systems: A 14 point ROS was completed and was negative except as per HPI. Physical Exam Filed Vitals: 05/04/24 1152 BP: (!) 154/68 Pulse: 87 SpO2: 95% Weight: 109.8 kg (242 lb) Height: 1.524 m (5') Body mass index is 47.26 kg/m??. Physical Exam: General: NAD, Appears Normal Stated Age,morbidly obese HEENT: PEERL, EOMI, MMM NECK: No JVD CVS: RRR, no MRG Resp: CTAB ABD: Soft, NT, ND, +BS Ext: No CC ,Trace edema, rash b/l anterior shins w/ scratch devlin. Neuro: Bilateral Upper and lower extremity tremors Psych: Normal Affect Diagnostic Data Lab Results Component Value Date/Time WBC 10.07 03/24/2024 10:56 AM HGB 12.8 03/24/2024 10:56 AM HCT 39.0 03/24/2024 10:56 AM PLT 274 03/24/2024 10:56 AM NA 142 03/24/2024 10:56 AM CL 105 03/24/2024 10:56 AM K 4.6 03/24/2024 10:56 AM GLU 118 (H) 03/24/2024 10:56 AM BUN 34 (H) 03/24/2024 10:56 AM CR 1.35 (H) 03/24/2024 10:56 AM CA 9.3 03/24/2024 10:56 AM MAGNESIUM 2.0 03/24/2024 10:56 AM AST 15 03/24/2024 10:56 AM ALT 21 03/24/2024 10:56 AM ALB 4.0 03/24/2024 10:56 AM Lab Results Component Value Date CHOL 164 11/28/2023 TRI 115 11/28/2023 HDL 67 11/28/2023 LDL 150 (H) 09/05/2020 HGBA1C 6.1 11/18/2023 TSH 0.947 11/28/2023 EK01/28/2024: Sr, PVC, nonspecific T wave changes Transthoracic Echocardiogram TTE 01/2024 Left ventricle is normal in size and systolic function Estimated EF of 60-65% Right ventricle is normal in size and systolic function Mild to moderate pulmonic regurgitation Unable to reliably quantitate pulmonary systolic pressure. TTE 2020 The left ventricular size is normal. Estimated left ventricular ejection fraction is 65-70%. Mild concentric left ventricular hypertrophy. Left ventricular diastolic function is normal. Wall motion appears normal in all segments. The right ventricular size is normal. The left atrial size is mildly enlarged. Right atrial size is normal. Unable to reliably quantitate pulmonary systolic pressure. Systemic veins are normal. No evidence of aortic valve stenosis. No evidence of aortic valve regurgitation. Mild mitral regurgitation. Mild pulmonic regurgitation. A trace of tricuspid regurgitation. Stress Test RegSpect 2020: Clinically negative. Electrocardiographically negative treadmill test for ischemia. Normal myocardial perfusion SPECT imaging. Stress images only. Normal wall motion with an ejection fraction of 76%. Holter Left Heart Catherization Assessment/Plan HFpEF HLD HTN BOONE Former Smoker HFpEF: hospitalized in January 2024, Echocardiogram with EF 60 to 65%. She is on Aldactone 12.5 mg oncedaily for goal-directed medical therapy. She will continue torsemide 40 mg QD. Continue with low-sodium diet, daily weight and educated her on signs and symptoms for which to call. Continues to have SORTO/swelling. Lungs clear on exam. Plan as below. Hyperlipidemia she will continue her atorvastatin 10 mg QD. 11/28/2023 3:02 PM LIPID PANEL FLOWSHEET CHOLESTEROL 164 TRIGLYCERIDES 115 HDL 67 NON HDL CHOLESTEROL 97 LDL 74. BOONE on CKD: 01/2024 creatinine up to 2.24 improved. Last labs 03/24/24Creatinine 1.35 (around he baseline) BUN 34, GFR 42, potassium 4.6. CTM Hypertension: BP running high at home 140-160/60s. Goal < 130/80 or below. she is on Aldactone 12.5 mg daily, and lisinopril 20 mg daily. We may have to adjust her antihypertensive regimen if her Cr remains elevated. Plan as below. Rash: she had allergy to sulfa. Timing starting when lasix/torsemide started. She is volume up right now so will try to increase her spironolactone. May have to consider ethacrynic acid if the futureif persists. Follow with PCP for rash treatments. Consider derm referral to confirm drug reaction as source. Tremors: will defer to PCP on work up/treatment. Could consider propranolol which would also help with BP control. Excessive sweating: w/o exertional symptoms. Could be side effect of SSRI. Will defer to primary. Increase spironolactone to 25 mg daily for BP control and edema/SORTO. Repeat BMP in 1 week as she has hx of BOONE/borderline high K+. Recommend completing the PFTs ordered by PCP for pulm work up as shedoes have some response to SOB w/ albuterol. If BP better control and swelling improves w/ increasespironlactone consider de-escalating torsemide dose. Follow-up: 1 month, unless otherwise needed sooner. Thank you for allowing me to participate in the care of this patient. Please reach out with any questions. QUETA Ramos I personally spent a total of 45 minutes on the day of the encounter. This includes qrrn-dx-gfpr and fvm-hbhk-oa-face time I provided on the day of the encounter & excludes time spent performing separately reportable services. Portions of this note were dictated using [employer] speech recognition software. Occasional wrong wordor sound-alike substitutions may have occurred due to the inherent limitations of voice recognition software. Please read the chart carefully and recognize, using context, where the substitutions may have occurred. documented in this encounter Plan of Treatment Upcoming Encounters Date Type Department Care Team (Late st Contact Info) Description 10/09/2024 9:30 AM MED CARE MANAGER Office Visit [facility] [phone] Carlos Farris MD [facility] [address] [place] [address] 11/02/2024 10:20 AM MED CARE MANAGER Office Visit [facility] Family & Internal Medicine - [address] [phone] Sami Liriano DO [address] [place] [phone] documented as of this encounter Goals Goal Patient Goal Type Associated Problems Recent Progress Patient-Stated? Author Patient will return to prior living situation and remain independent in ADLs upon discharge from hospital Lifestyle Sylvia Carvajal, RN documented as of this encounter Visit Diagnoses Diagnosis Chronic diastolic congestive heart failure ([facility])- Primary Chronic diastolic heart failure Acute heart failure, unspecified heart failure type ([facility]) Essential (primary) hypertension Unspecified essential hypertension Dyslipidemia Other and unspecified hyperlipidemia Morbid obesity ([facility]) Morbid obesity Rash Rash and other nonspecific skin eruption documented in this encounter Additional Health Concerns Assessment Noted Time PHQ-9 Depression Total Score: 0 10/11/19 22 10:50 AM MED CARE MANAGER documented as of this encounter Care Teams Freelance Graphic Designer Relationship Specialty Start Date End Date Sami Liriano DO [address] [place] [phone] PCP - General FAMILY PRACTICE 12/24/19 documented as of this encounter
--- OUTSIDE RECORDS SUMMARY | 2024-09-19 12:13 | XMS_ITS | Encounter Summary ---
Author Organization [facility] Address [facility]. [place], [place] [address] [place] [id number] Care Team Providers Care Underwater Roboticist Name Role Phone Sami Liriano Primary Care Provider + Reason for Visit * Reason Onset Date Comments Orders 07/06/2024 Encounter Details Date Type Department Care Team (Late st Contact Info) Description 07/06/2024 Telephone [facility] [place] [address] [place], [place] [phone] Carlos Farris MD [facility] [address] [place] [address] Orders Social History Tobacco Use Types Packs/Day Years [...] any time in the past [address] [facility], were you homeless or living in a alf (including now)? 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 Not on file Not [...] Date Author Status No 02/08/2024 12:30 AM CDChrista Montaño RN Active documented in this encounter Plan of Treatment Upcoming Encounters Date Type Department Care Team (Late st Contact Info) Description 10/09/2024 9:30 AM BUSINESS DEVELOPMENT SPECIALIST Office Visit [facility] [phone] Carlos Farris MD [facility] [address] [place] [address] 11/02/2024 10:20 AM BUSINESS DEVELOPMENT SPECIALIST Office Visit [facility] Family & Internal Medicine - [address] [phone] Sami Liriano DO [address] [place] [address] documented as of this encounter Goals Goal [...] Total Score: 0 10/11/19 22 10:50 AM BUSINESS DEVELOPMENT SPECIALIST documented as of this encounter Care Teams Underwater Roboticist Relationship Specialty Start Date End Date Sami Liriano DO [address] [place] [phone] PCP - General FAMILY PRACTICE 12/24/19 documented as of this encounter
--- OUTSIDE RECORDS SUMMARY | 2024-09-19 12:13 | XMS_ITS | Encounter Summary ---
Author Organization [facility] Address [facility]. [place], [place] [address] [place] [address] Care Team Providers Care Bobbin Doffer Name Role Phone Sami Liriano DO Primary Care Provider + Reason for Visit * Reason Comments CHF The patient is feeli ng so much better. BLE swelling is better. Rash is resolving. Encounter Details Date Type Department Care Team (Late st Contact Info) Description 02/27/2024 8:20 AM CDT Office Visit [facility] Family & Internal Medicine [id number] [place] [address] Sami Liriano DO [facility] [place] [address] CHF (The patient is feeling so much better. BLE swelling is better. Rash is resolving. ) Social History Tobacco Use Types Packs/Day Years Used Date Smoking Tobacco: Former Cigarettes 0.5 12 0 09/30/1964 - 09/30/1976 Passive Smoke Exposure: Never Smokeless Tobacco: Never Tobacco Cessation:Counseling Given: Not Answered Alcohol Use Standard Drinks/Week Comments Not Currently 0 (1 standard drink = 0.6 oz pur e alcohol) 2 cocktails on some Sundays [facility] Utilities Answer Date Recorded [...] any time in the past 12 m [facility], were you homeless or living in a halfway (including now)? 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 Not on file Not on franck e documented as of this encounter Last Filed Vital Signs Vital Sign Reading Time Taken Comments Blood Pressure 128/76 02/27/2024 8:35 AM CDT Pulse 89 02/27/2024 8:35 AM CDT Temperature 36.3 ??C (97.3 ??F) 02/27/2024 8:35 AM CD T Respiratory Rate 16 02/27/2024 8:35 AM CDT Oxygen Saturation 98% 02/27/2024 8:35 AM CDT Inhaled Oxygen Concentration - - Weight 109.6 kg (241 lb 9.6 oz) 02/27/2024 8:35 AM CDT Height 152.4 cm (5') 02/27/2024 8:35 AM CDT Body Mass Index 47.18 02/27/2024 8:35 AM CDT documented in this encounter Functional [...] Hodgson RN Active documented in this encounter Patient Instructions * Patient Instructions* Sami Liriano DO - 02/27/2024 8:20 AM CDT Try lisinopril in the evening to see if this helps with side effects. If this does not, you can tryspironolactone as well. If that doesn't work, you can try torsemide in the evening as well. documented in this encounter Progress Notes * Sami Liriano DO - 02/27/2024 8:20 AM CDT Images from the original note were not included. GENERAL OFFICE VISIT Encounter Date: 02/27/2024 Chief Complaint: 69-year-old female presents for CHF (The patient is feeling so much better. BLE swelling is better.Rash is resolving. ) History of Present Illness: Pt presents for f/u on CHF and rash. Rash is resolving. Swelling in both legs are improved, although improved notably since last OV. Pt is asking if she is able to take her medications at different times. She notes some issues with focus. Pt has had issues with her kidney function on our previous check, but this improved with further diuresis when it was repeated 4 days later on 02/21/24. Pt needs to repeat labs today. No other issues today. ROS: Review of Systems Constitutional: Negative for fever and malaise/fatigue. Respiratory: Negative for shortness of breath. Cardiovascular: Positive for leg swelling. Negative for chest pain. Genitourinary: Negative for dysuria. Musculoskeletal: Negative for falls. Medications: Current Outpatient Medications on File Prior to [...] tablet (10 mg total) by mouth daily.) Bimqskq-Zobwronnrhr-Unytlkprck (BREZTRI AEROSPHERE) 160-9-4.8 MCG/ACT Aerosol Inhale 2 [...] every 6 (six) hours as needed (spasms).) torsemide (DEMADEX) 20 MG tablet Take 2 tablets (40 mg total) by mouth daily. traMADol (ULTRAM) 50 MG tablet Take 1 tablet (50 mg total) by mouth every 6 (six) hours as needed for Pain. Indications: Chronic Pain No current facility-administered medications on file prior to visit. Review of patient's allergies indicates: Allergen Reactions Chocolate Hives Penicillins Rash Sulfa Antibiotics Rash Patient Active Problem List Diagnosis Alopecia Hypertension associated with type 2 diabetes mellitus ([facility]) Arthritis of left knee Overactive bladder Depression Pharyngoesophageal dysphagia ALLYSON positive Stage 3a chronic kidney disease ([facility]) Severe obstructive sleep apnea Hyperlipidemia associated with type 2 diabetes mellitus ([facility]) BMI 45.0-49.9, adult ([facility]) Generalized osteoarthritis of multiple sites Inflammatory arthritis Urinary tract infection Morbid (severe) obesity due to excess calories ([facility]) Hx of adenomatous colonic polyps Family hx of colon cancer Body mass index (BMI) 45.0-49.9, adult ([facility]) Current moderate episode of major depressive disorder without prior episode ([facility]) CHF (congestive heart failure) ([facility]) Past Medical History: Diagnosis Date Anxiety disorder, unspecified Arthritis Arthritis of left knee 11/08/2019 Depression Diabetes mellitus ([facility]) GERD (gastroesophageal reflux disease) Hypertension Overactive bladder Positive colorectal cancer screening using Cologuard test 04/19/2020 Added automatically from request for surgery [id number] Past Surgical History: Procedure Laterality Date ANKLE SURGERY left SECTION COLONOSCOPY N/A 04/27/2020 COLONOSCOPY WITH BIOPSY X 3 performed by Joel Keenan MD at [facility] OR COLONOSCOPY N/A 11/20/2023 Colonoscopy with Polypectomies performed by Joel Keenan MD at [facility] OR EGD EYE SURGERY FRACTURE SURGERY HERNIA REPAIR HYSTERECTOMY JOINT REPLACEMENT SHOULDER SURG PROC UNLISTED right TONSILLECTOMY TOTAL KNEE ARTHROPLASTY right Social History Socioeconomic History Marital status: Number of children: 2 Occupational History 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 Right lower leg: No edema. Comments: Mild, non-pitting edema in RLE Skin: General: Skin is warm and dry. Comments: Erythema resolved Neurological: General: No focal deficit present. Mental Status: She is alert. Psychiatric: Mood and Affect: Mood normal. Assessment & Plan: Jolly Deal was seen today for chf. Diagnoses and all orders for this visit: BOONE (acute kidney injury) ([facility]) - MAGNESIUM; Future - COMPREHENSIVE METABOLIC PANEL; Future - VENIPUNC ARM DRAW Acute on chronic heart failure with preserved ejection fraction ([facility]) - CBC W/DIFF AUTOMATED; Future Contact dermatitis, unspecified contact dermatitis type, unspecified trigger - CBC W/DIFF AUTOMATED; Future Discussion & Summary: Repeat labs as per above today. Continue on current doses of all chronic meds as prescribed. Continue f/u with cardiology as recommended. Will have pt f/u in 1 month or sooner if needed. Pt v/u. Sami Liriano DO documented in this encounter Plan of Treatment Upcoming Encounters Date Type Department Care Team (Late st Contact Info) Description 10/09/2024 9:30 AM DIE DRAWING CHECKER Office Visit [facility] [address] Carlos Farris MD [facility] [address] [place] [address] 11/02/2024 10:20 AM DIE DRAWING CHECKER Office Visit [facility] Family & Internal Medicine - [id number] [place] [address] Heri Sami [address] [place] [address] documented as of this encounter Goals Goal Patient Goal Type Associated Problems Recent Progress Patient-Stated? Author Patient will return to prior living situation and remain independent in ADLs upon discharge from hospital Lifestyle Sylvia Carvajal RN documented as of this encounter Procedures Procedure Name Priority Date/Time Associated Diagnosis Comments COMPREHENSIVE METABOLIC PANEL Routine 02/27/2024 9:25 AM CDT BOONE (acute kidney injury) ([facility]) CBC W/DIFF AUTOMATED Routine 02/27/2024 9:25 AM CDT Acute on chronic heart failure with preserved ejection fraction ([facility]) Contact dermatitis, unspecified contact dermatitis type, unspecified trigger MAGNESIUM Routine 02/27/2024 9:25 AM CDT BOONE (acute kidney injury) ([facility]) VENIPUNC ARM DRAW Routine 02/27/2024 9:0 6 AM CDT BOONE (acute kidney injury) ([facility]) documented in this encounter Results * (ABNORMAL) CBC W/DIFF AUTOMATED (02/27/2024 9:25 AM CDT) WBC 14.60(H) 4.00 - 10.80 x10'3/uL 02/27/2024 2:15 PM CDT [facility] RBC 4.76 4.10 - 5.40 x10'6/uL 02/27/2024 2:15 PM CDT [facility] HGB 13.1 12.0 - 16.0 G/DL 02/27/2024 2:15 PM CDT [facility] HCT 41.3 36.0 - 47.0 % 02/27/2024 2:15 PM CDT [facility] MCV 86.8 78.0 - 100.0 FL 02/27/2024 2:15 PM CDT [facility] MCH 27.5 27.0 - 31.0 PG 02/27/2024 2:15 PM CDT [facility] MCHC 31.7(L) 33.0 - 36.0 G/DL 02/27/2024 2:15 PM CDT [facility] RDW 14.3 11.5 - 14.5 % 02/27/2024 2:15 PM CDT [facility] PLT 257 150 - 350 x10'3/uL 02/27/2024 2:15 PM CDT [facility] MPV 10.3 7.4 - 10.4 FL 02/27/2024 2:15 PM CDT [facility] DIFFERENTIAL TYPE AUTOMATED DIFFERENTIAL 02/27/2024 2:15 PM CDT [facility] NEUTROPHILS % 60.9 % 02/27/2024 2:15 PM CDT [facility] LYMPHOCYTES % 30.3 % 02/27/2024 2:15 PM CDT [facility] MONOCYTES % 7.1 % 02/27/2024 2:15 PM CDT [facility] EOSINOPHILS % 1.2 % 02/27/2024 2:15 PM CDT [facility] BASOPHILS % 0.3 % 02/27/2024 2:15 PM CDT [facility] IMMATURE GRANS % 0.2 % 02/27/2024 2:15 PM CDT [facility] ABS. NEUTROPHILS 8.89(H) 1.60 - 8.30 x10'3/uL 02/27/2024 2:15 PM CDT [facility] ABS. LYMPHOCYTES 4.43 0.80 - 4.70 x10'3/uL 02/27/2024 2:15 PM CDT [facility] ABS. MONOCYTES 1.04 0.00 - 1.50 x10'3/uL 02/27/2024 2:15 PM CDT [facility] ABS. EOSINOPHILS 0.17 0.00 - 0.40 x10'3/uL 02/27/2024 2:15 PM CDT [facility] ABS. BASOPHILS 0.04 0.00 - 0.20 x10'3/uL 02/27/2024 2:15 PM CDT [facility] ABS. IMMATURE GRANULOCYTES 0.03 0.00 - 0.03 x10'3/uL 02/27/2024 2:15 PM CDT [facility] 02/27/2024 9:25 AM CDT us Sami Liriano DO LABORATORY Final Re sult [facility] [address] [place] [address], * (ABNORMAL) COMPREHENSIVE METABOLIC PANEL (02/27/2024 9:25 AM CDT) SODIUM S/P/B 142 136 - 145 MMOL/L 02/27/2024 5:33 PM CDT [facility] POTASSIUM S/P/B 4.4 3.5 - 5.1 MMOL/L 02/27/2024 5:33 PM CDT [facility] CHLORIDE S/P/B 103 98 - 107 MMOL/L 02/27/2024 5:33 PM CDT [facility] CO2 31.1 21 - 32 MMOL/L 02/27/2024 5:33 PM CDT [facility] GLUCOSE 119(H) 70 - 99 MG/DL 02/27/2024 5:33 PM CDT [facility] BUN 43(H) 7 - 18 MG/DL 02/27/2024 5:33 PM CDT [facility] CREATININE S/P/B 1.37(H) 0.55 - 1.02 MG/DL 02/27/2024 5:33 PM CDT [facility] CALCIUM S/P/B 9.9 8.4 - 10.5 MG/DL 02/27/2024 5:33 PM CDT -[facility] BILIRUBIN TOTAL S/P/B 1.1(H) 0.2 - 1.0 MG/DL 02/27/2024 5:33 PM CDT [facility] ALKALINE PHOSPHATASE S/P/B 97 55 - 142 U/L 02/27/2024 5:33 PM CDT [facility] AST 17 15 - 37 U/L 02/27/2024 5:33 PM T [facility] ALT 26 14 - 59 U/L 02/27/2024 5:33 PM T [facility] TOTAL PROTEIN S/P/B 7.8 6.4 - 8.2 G/DL 02/27/2024 5:33 PM T [facility] ALBUMIN S/P/B 4.4 3.4 - 5.0 G/DL 02/27/2024 5:33 PM CDT [facility] ANION GAP 7.9 5 - 15 MMOL/L 02/27/2024 5:33 PM T [facility] Comment:REFERENCE RANGE NOT ESTABLISHED OSMOLALITY (CALC) 306 MOSM/KG 024 5:33 PM T [facility] Comment:REFERENCE RANGE NOT ESTABLISHED GFR ESTIMATE 41(L) >90 ML/MIN/1. 73 M2 02/27/2024 5:33 PM T [facility] GFR NOTES GFR REFERENCE S: 02/27/2024 5:33 PM T [facility] Comment: THE ESTIMATED GFR IS CALCULATED [...] ml/min/1.73 m2 G5,KIDNEY FAILURE: <15 ml/min/1.73 m2 02/27/2024 9:25 AM CDT Sami Liriano DO LABORATORY Final Re sult Performing Organization Address City/[facility]/ZIP Co de Phone Number [facility] [address] [place] [address], [place] [phone] * MAGNESIUM (02/27/2024 9:25 AM CDT) MAGNESIUM 2.4 1.8 - 2.4 MG/DL 02/27/2024 5:33 PM CDT [facility] 02/27/2024 9:25 AM CDT Sami Liriano DO LABORATORY Final Re sult Performing Organization Address City/[facility] Co de Phone Number [address] [place] [address], [place] [phone] documented in this encounter Visit Diagnoses Diagnosis BOONE (acute kidney injury) ([facility])- Primary Acute kidney failure, unspecified Acute on chronic heart failure with preserved ejection fraction ([facility]) Contact dermatitis, unspecified contact dermatitis type, unspecified trigger documented in this encounter Additional Health Concerns Assessment Noted Time PHQ-9 Depression Total Score: 0 10/11/19 22 10:50 AM DIE DRAWING CHECKER documented as of this encounter Care Teams Bobbin Doffer Relationship Specialty Start Date End Date Sami Liriano DO [address] [place] [address] PCP - General FAMILY PRACTICE 12/24/19 documented as of this encounter
--- OUTSIDE RECORDS SUMMARY | 2024-09-19 12:13 | XMS_ITS | Encounter Summary ---
Author Organization [facility] Address [facility]. [place], [place] [address] [place] [address] Care Team Providers Care Senior Product Development Engineer Name Role Phone Sami Liriano Nicole AGUIAR Primary Care Provider + Encounter Details Date Type Department Care Team (Late st Contact Info) Description 05/04/2024 Orders Only [place] [facility] [facility] [address] [place], [place] [phone] Blaire Obrien FNP [address] [facility] [address] [place], [place] [id number] Social History Tobacco Use Types Packs/Day Years Used Date Smoking Tobacco: Former Cigarettes 0.5 12 0 09/30/1964 - 09/30/1976 Passive Smoke Exposure: Never Smokeless Tobacco: Never Alcohol Use Standard Drinks/Week Comments Not Currently 0 (1 standard drink = 0.6 oz pur e alcohol) 2 cocktails on some Sundays [facility] Utilities Answer Date Recorded In the past [...] any time in the past 12 m [facility], were you homeless or living in a retirement (including now)? 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 file Not [...] Hodgson RN Active documented in this encounter Plan of Treatment Upcoming Encounters Date Type Department Care Team (Late st Contact Info) Description 10/09/2024 9:30 AM BALANCE WHEEL FACER Office Visit [facility] [phone] Carlos Farris MD [facility] [address] [facility] [place] [address] 11/02/2024 10:20 AM BALANCE WHEEL FACER Office Visit [facility] Family & Internal Medicine - [address] [phone] Sami Liriano DO [address] [place] [address] Scheduled Orders Name Type Priority Associated Diagnoses Orde r Schedule BASIC METABOLIC PANEL Lab Routine Hypertension associated with type 2 diabetes mellitus ([facility]) Expected: 05/04/2024, Expires: 05/04/2025 documented as of this encounter Goals Goal Patient Goal Type Associated Problems Recent Progress Patient-Stated? Author Patient will return to prior living situation and remain independent in ADLs upon discharge from hospital Lifestyle No Sylvia Ventura, RN documented as of this encounter Visit Diagnoses Diagnosis Hypertension associated with type 2 diabetes mellitus ([facility] Primary documented in this encounter Additional Health Concerns Assessment Noted Time PHQ-9 Depression Total Score: 0 10/11/19 22 10:50 AM BALANCE WHEEL FACER documented as of this encounter Care Teams Senior Product Development Engineer Relationship Specialty Start Date End Date Sami Liriano DO [address] [place] [address] PCP - General FAMILY PRACTICE 12/24/19 documented as of this encounter
--- OUTSIDE RECORDS SUMMARY | 2024-09-19 12:13 | XMS_ITS | Encounter Summary ---
Author Organization [facility] Address [facility]. [place], [place] [id number] [place] [id number] Care Team Providers Care Heavy Line Technician Name Role Phone Sami Liriano Nicole AGUIAR Primary Care Provider + Reason for Referral * (Routine) - New Request Specialty Diagnoses / Procedures Referred By Shereen benton Referred To Contact Procedures PT eval and treat Vianey Yang DO [address] [place] [address] Phone: tel: fax: Referral ID Status Reason Start Date Expiration Date V isits Requested Visits Authorized [id number] New Request 02/11/2024 02/10/2025 1 1 * Imaging (Urgent) - Pending Review Specialty Diagnoses / Procedures Referred By Shereen benton Referred To Contact RADIOLOGY Procedures USE ECHOCARDIOGRAM W CON USE ECHOCARDIOGRAM [place] [address] Phone: tel: [phone] fax: Referral ID Status Reason Start Date Expiration Date V isits Requested Visits Authorized [id number] Pending Review 02/07/2024 02/06/2025 1 1 * Imaging (Emergency) - New Request Specialty Diagnoses / Procedures Referred By Contac t Referred To Contact RADIOLOGY Procedures USV COLETTE DUPLEX LOW EXT HAN Dillon Her MD,PHD [address] [place] [id number] Phone: tel: fax: Referral ID Status Reason Start Date Expiration Date V isits Requested Visits Authorized [id number] New Request 02/07/2024 02/06/2025 1 1 * Imaging (Emergency) - New Request Specialty Diagnoses / Procedures Referred By Contac t Referred To Contact RADIOLOGY Procedures CTA CHEST PE PROTOCOL Dillon Her MD,PHD [address] [place] [address] Phone: tel: fax: Referral ID Status Reason Start Date Expiration Date V isits Requested Visits Authorized [id number] New Request 02/07/2024 02/06/2025 1 1 Reason for Visit * Reason Comments Shortness Of Breath Edema * Auth/Cert (Routine) Specialty Diagnoses / Procedures Referred By Contac t Referred To Contact Diagnoses Shortness of breath CHF (congestive heart failure) ([facility]/HCC HHS/HCC) Dependent edema Procedures NONE [place] [address] Phone: tel: [phone] fax: Referral ID Status Reason Start Date Expiration Date Visits Re quested Visits Authorized [id number] 1 1 Encounter Details Date Type Department Care Team (Late st Contact Info) Description 02/07/2024 3:16 PM CDT - 02/12/2024 2:08 PM CDT Hospital Encounter [facility] Telemetry [address] [place], [place] [id number] Dillon Her MD,PHD [address] [place] [phone] Winter Ch MD [address] [place], [place] [address] [phone] (Work) Sury Finch, DO 1 [facility] [place] [address] Vianey Yang, DO [address] [place] [id number] Shortness Of Breath ; Edema Discharge Disposition: Home or Self Care (Routine Discharge) Social History Tobacco Use Types Packs/Day Years Used Date Smoking Tobacco: Former Cigarettes 0.5 12 0 09/30/1964 - 09/30/1976 Passive Smoke Exposure: Never Smokeless Tobacco: Never Alcohol Use Standard Drinks/Week Comments Not Currently 0 (1 standard drink = 0.6 oz pur e alcohol) 2 cocktails on some Sundays [facility] [employer] Answer Date Recorded In the past 12 [...] any time in the past 12 m [facility], were you homeless or living in a assisted (including now)? 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6 oz) 02/12/2024 3:36 AM CDT Height 152.4 cm (5') 02/08/2024 12:36 AM CDT Body Mass Index 47.97 02/08/2024 12:36 AM CDT documented in this encounter Functional Status * Question Answer Date of Assessment Author Status Do you have serious difficulty walking or climbing stairs? No 02/08/2024 12:30 AM CDT Christa Hodgson RN Act julia * Question Answer Date of Assessment Author Status Do you have difficulty dressing or bathing? No 02/08/2024 12:30 AM CDT Christa Hodgson RN Active Because of a physical, mental, or emotional condition, do you have difficulty doing errands alone such as visiting a doctor's office or shopping? No 02/08/2024 12:30 AM CDT Christa Hodgson RN Acti ve * Are you deaf or do you [...] AM SEANT Christa Hodgson RN Active documented as of this encounter Mental Status * Question Answer Entry Date Author Status Because of a physical, mental, or emotional condition, do you have serious difficulty concentrating, remembering, or making decisions? No 02/08/2024 12:30 AM CDT Christa Hodgson RN Active * Because of a physical, mental, or emotional condition, do you have serious difficulty concentrating, remembering, or making decisions? Answer Entry Date Author Status No 02/08/2024 12:30 AM CDT Christa Hodgson RN Active documented in this encounter Discharge Summaries * Vianey Romeo DO Trey - 02/12/2024 12:54 PM CDT Images from the original note were not included. Hospitalist Discharge Summary Patient ID: Hair Sargent. female. 1955. Admit date: 02/07/2024 3:16 PM Discharge date: 02/12/2024 Admitting Physician: Winter Ch MD Primary Care Physician: Sami Liriano DO Discharge Physician: Vianey Yang DO Primary Diagnoses: CHF exacerbation Lower extremity rash Admission Condition: fair Discharged Condition: Stable Code Status: Full Code Chief Complaint: Chief Complaint Patient presents with Shortness Of Breath Edema Reason for hospitalization: CHF HPI per admitting physician: Hair Sargent is a 68-year-old female with past medical history of HFpEF, diabetes, hypertension, presents to the ER with shortness of breath and lower extremity edema. Patient was seen by her signal operator linguist today and directed to the ER. She has been taking 80 mg of Lasix in the morning, 80 mg inthe afternoon, and 40 mg at night recently but still has shortness of breath and edema and low urine output. She has had some left-sided chest pain near her breast that lasted 20 minutes. No other chest pain. No fevers, chills, nausea, vomiting, dizziness etc. She has lower extremity edema in both legs. She was given 20 mg IV Lasix in the ER and I was asked to admit her. O2 sats currently stable on room air. Hospital Course: CHF exacerbation proBNP [...] Anxiety/depression No acute issues Resume home meds DVT prophylaxis: Heparin subq Code status: Full code Discharge plan discussed with patient Discharge Exam: Filed Vitals: 02/11/24 2310 02/12/24 0336 02/12/24 0752 02/12/24 1147 BP: 120/49 111/56 126/52 120/52 Pulse: 71 68 71 72 Resp: 18 20 18 Temp: 97.9 ??F (36.6 ??C) 98.2 ??F (36.8 ??C) 98.2 ??F (36.8 ??C) TempSrc: Oral Oral Oral Oral SpO2: 94% 93% 95% 92% Weight: 111.4 kg (245 lb 9.6 oz) Height: -GENERAL: No acute distress, Well nourished -HEAD: Normocephalic, Atraumatic -EYES: Extraocular movements intact -LUNGS: Effort normal. Clear to auscultation bilaterally -CVS: Regular rate and rhythm, S1 and S2 normal -ABDOMEN: Soft, Non tender, Non distended -EXT: + Trace LE edema, CLAUDIA wraps in place -NEURO: Awake, alert, oriented, No gross neuro deficits Consults: cardiology Significant Diagnostic Studies: Recent Labs Lab 02/07/24 1526 02/08/24 0957 02/10/24 1001 02/11/24 0646 02/12/24 0529 WBC 10.71 8.87 10.75 8.91 9.61 RBC 4.33 4.82 4.70 4.22 4.55 HGB 11.7* 13.0 12.7 11.5* 12.2 HCT 36.9* 41.2 40.9 35.9* 38.1 MCV 85.2 85.5 87.0 85.1 83.7 MCH 27.0 27.0 27.0 27.3 26.8* MCHC 31.7* 31.6* 31.1* 32.0 32.0 PLT 239 249 266 236 262 RDW 14.1 14.2 14.6* 14.5 14.6* MPV 9.8 10.0 9.9 9.8 10.1 PERNEU 62.6 58.7 56.8 50.5 49.9 PERLYM 26.3 30.9 31.5 35.6 36.8 PERMON 8.1 7.0 8.7 10.0 8.1 NEUC 6.71 5.21 6.11 4.50 4.79 L[facility] 2.82 2.74 3.39 3.17 3.54 MONOC 0.87* 0.62 0.94* 0.89* 0.78 EOSC 0.20 0.20 0.21 0.28 0.39* BASOC 0.07 0.07 0.06 0.05 0.08 DTYPE AUTOMATED DIFFERENTIAL AUTOMATED DIFFERENTIAL AUTOMATED DIFFERENTIAL AUTOMATED DIFFERENTIAL AUTOMATED DIFFERENTIAL Recent Labs Lab 02/07/24 1526 02/08/24 0957 02/09/24 1205 02/10/24 1001 02/11/24 0646 02/12/24 0529 NA 139 138 138 136 137 137 K 3.3* 3.8 3.3* 4.0 3.8 4.0 CL 106 104 102 103 104 103 CO2 29.9 28.2 29.2 26.3 27.5 27.4 AGAP 3.1* 5.8 6.8 6.7 5.5 6.6 BUN 25* 18 20* 28* 31* 34* CR 1.14* 1.15* 1.20* 1.40* 1.36* 1.41* BUNCREATININ 21.9 15.7 16.7 20.0 22.8 24.1 GLU 131* 158* 122* 133* 122* 126* CA 9.4 9.6 9.8 10.0 9.6 10.0 TP 7.5 -- -- -- -- -- ALB 3.7 -- -- -- -- -- TBIL 0.9 -- -- -- -- -- ALKP 93 -- -- -- -- -- AST 23 -- -- -- -- -- ALT 25 -- -- -- -- -- No results for input(s): CHOL , TRI , HDL , LDL , HGBA1C , TSH in the last 168 hours. No results for input(s): APTT , INR , PTT in the last 168 hours. Recent Labs Lab 02/07/24 1526 02/07/24 1801 TROP 9 10 No results for input(s): LACTICACID , PROCT in the last 168 hours. No results for input(s): PH , PCO2 , PO2 , E5OCSVMAIPKQ , BICARBWB , BASEDEFICIT , BASEEXCESS in the last 168 hours. No results found for this or any previous visit. Radiology Reports : USV COLETTE DUPLEX LOW EXT HAN Result Date: 02/10/2024 VENOUS DUPLEX IMAGING BILATERAL LOWER EXTREMITY VASCULAR LAB Pat.Name: HAIR SARGENT Pat.ID: [id number] .Date: 02/08/2024 : [id number], Colten wing Exam Time: 6:02:00 PM Study Type:KATIE VS Venous Duplex Legs HAN Height: 60 in Age: 5 1955,68Y Sex: F Sonogrphr: Moo Briceno RVT Pat. Stat.:Inpatient History / Clinical:Evaluate for DVT. Hypertension, GERD, Sleep Apnea, Renal Insufficiency Procedures: Horan scale, Color Doppler imaging, Doppler Spectral Analysis Race:W ++++++++++++++++++++++++++++++++++++ SUMMARY: ++++++++++++++++++++++++++++++++++++ Right leg: There are NO apparent, deep or superficial vein, ACUTE character venous filling defects visualized in the femoral, popliteal, deep calf or proximal saphenous veins. Resting venous flow is normal phasic proximally. No valve reflux with compression maneuvers is detected in the femoral and popliteal veins. Left leg: There are NO apparent, deep or superficial vein, ACUTE character venous filling defectsvisualized in the femoral, popliteal, deep calf or proximal saphenous veins. Resting venous flow isnormal phasic proximally. No valve reflux with compression maneuvers is detected in the femoral andpopliteal veins. CONCLUSION: Normal study bilateral lower extremity, with no evidence of acute deepor superficial vein thrombosis. There is no significant reflux detected. <Electronic Signature> 02/10/2024 08:36 PM Gordo Rodriguez M.D. USE ECHOCARDIOGRAM W CON Result Date: 02/09/2024 Echocardiography Report Pat.Name: HAIR SARGENT Pat.ID: [id number] St.Date: 02/08/2024 Refer.MD: WINTER CH H Exam Time: 12:54:00 PM Study Type:ECHO WITH CARDIAC DOPPLER COMP Height: 60 in Weight: 250 lb BSA: 2.05 m2 Age: 5 1955,68Y Sex: F BP: 140/63 HR: 77 bpm Sonogrphr: Karen Fisher [facility] Pat. Stat.:Inpatient Room: [facility] Reason for Study:CHF History / Clinical:Hypertension, GERD, Sleep Apnea, Renal Insufficiency, LE edma; PMH- Obese, HTN, xtob, CKD3, MOR-CPAP, Le edema- ondiuretics, prior BLEV @ [facility] 03/07/20 negative Procedures: 2D, M-mode, Doppler, Color Flow, Definity was used to enhance endocardial definition. Race: W ++++++++++++++++++++++++++++++++++++ SUMMARY: ++++++++++++++++++++++++++++++++++++ Left ventricle is normal in size and systolic function Estimated EF of 60-65% Right ventricle is normal in size and systolic function Mild to moderate pulmonic regurgitation Unable to reliably quantitate pulmonary systolic pressure. ++++++++++++++++++++++++++++++++++++ FINDINGS: ++++++++++++++++++++++++++++++++++++ LV: The left ventricular size is normal. Theleft ventricular systolic function is normal. Estimated left ventricular ejection fraction is 60-65%. Mild concentric left ventricular hypertrophy. Left ventricular diastolic function is normal. WM: Wall motion appears normal in all segments. LVOT: The left ventricular outflow tract size is normal.RV: The right ventricular size is normal. Right ventricular systolic function is normal. IVS: No evidence of ventricular septal defect. LA: The left atrial volume is normal ( less than 34 ml/M2). RA:Right atrial size is normal. IAS: Atrial septum appears intact. MIGUEL: No evidence of pericardial effusion. Prominent pericardial fat pad visualized. AO: Normal aortic root. PA: Estimated right atrialpressure of 3 mmHg. Unable to reliably quantitate pulmonary systolic pressure. SVn: Systemic veinsare normal. AV: The aortic valve is trileaflet. No evidence of aortic valve stenosis. No evidence of aortic valve regurgitation. MV: Structurally normal mitral valve. Mild mitral regurgitation. No evidence of mitral stenosis. PV: No evidence of pulmonic valve stenosis. Mild to moderate pulmonic regurgitation. TV: Structurally normal tricuspid valve. A trace of tricuspid regurgitation. No evidenceof tricuspid valve stenosis. ++++++++++++++++++++++++++++++++++++ MEASUREMENTS: ++++++++++++++++++++ ++++++++++++++++ DOPPLER LVOT LVOTpkPG 4 mmHg LVOTmnPG 2 mmHg LVOTpkVel 106 cm/s (70-110)+ LVOT SV 71 ml LVOT TVI 22.6 cm Pulmonary Veins PVnpkVeld 28.7 cm/s PVnVs/Vd 1.5 PVnpkVels 43.1 cm/s PVn A Dur 144 msec AV Forward Flow AV TVI 25.6 cm AV pkPG 7 mmHg AV pkVel 130 cm/s (100-170)+ Area (TVI) 2.77 cm2 (3-5)* AV mnPG 4 mmHg Area (Kurtis) 2.56 cm2 (3-5)* MV Forward Flow MV DeTm 225 msec MV pkE 70.2cm/s (60-130) MV E/A 0.7 MV pkA 94.3 cm/s PV Forward Flow PV pkVel 142 cm/s (60-90)+* PV AC 79 msec PV pkPG 8 mmHg PV Regurg Flow PV pkVel 107 cm/s TV Forward Flow TV pkE 35.6 cm/s Lat E' Lat e 8.49 cm/s Lat E/E' Lat E/e 8.3 Med E' Med e 5.98 cm/s Med E/E' Med E/e 11.7 Aortic Valve Aortic Valve Ar 1.35 Aortic Valve Ve 0.82 PV Antegrade Flow Acceleration Sl 1363 cm/s2 PV Regurgitant Flow Peak Gradient ( 5 mmHg Right Atrium Yang's Disk 20 Right Ventricle Right Ventricle 14.8 cm/s 2D Left Ventricle LVIDd 4.37 cm (3.6-5.2) LV ESV 22.7 ml LVIDs 2.65 cm (2.3-3.9) LV ESV 22.4 ml LngAxd 7.21 cmLVESV BP 22.8 ml LngAxd 7.17 cm LV EF 59.4 % LV EDV 55.9 ml LV EF 70 % LV EDV 74.5 ml LV EF BP 64.8% LVEDV BP 64.7 ml LV SV 33.2 ml LngAxs 5.77 cm LV SV 52.2 ml LngAxs 5.96 cm LV SV BP 41.9 ml LVPWLVPWd 1.26 cm Right Ventricle RVIDd 3.33 cm (2.6-4.3) Right Ventricle 34.6 mm Right Ventricle 35.6 mm Right and Left 0.762 Major [place] 64.5 mm Ventricular Septum IVSd 1.18 cm Left Atrium LA VOLBP 37.1 ml Aorta Ao Rtd 3.6 cm LVOT LVOT 2 cm LVOTArea 3.14 cm2 Ratios IVS LA Biplane LAVol I BP 18.1 ml/m2 RA Single Plane Right Atrium MO 16 mm Right Atrium Sy 41.3 ml Right Atrium Sy 48.6 mm Right AtriumSy 20.1 ml/m2 Right Atrium Sy 15.8 cm2 MMODE Ratios LA/Ao 1.14 (0.87-1.1)* Left Atrium LAIDs 4.1 cmTA Tricuspid Annul 21.9 mm <Electronic Signature> 02/09/2024 10:47 AM Ismael Lincoln M.D. CTA CHEST PE PROTOCOL Result Date: 02/07/2024 EXAMINATION: CTA chest pulmonary embolism HISTORY: Shortness of breath. Lower extremity swelling. Concern for pulmonary embolus. COMPARISON: Chest x-ray 02/07/2024. TECHNIQUE: Axial CT images of the chest after the uneventful intravenous administration of 80 mL of Isovue-370 given through the right a ntecubital fossa. Sagittal and coronal reformatted image sets with thick section reformatted post processed 3-D/MIP images according to the pulmonary embolus protocol. A dose lowering technique was used for this procedure, which may include, but is not limited to, dose reduction technique, automated exposure control, the use of degenerative reconstruction, and ALARA/image gently techniques. FINDINGS: Vascular: The main pulmonary artery is normal caliber. There is slightly suboptimal opacification of the pulmonary arteries. No definite pulmonary thromboembolic disease is identified. No evidence of right heart strain. There is atherosclerotic vascular disease. The aorta is normal caliber. There are coronary artery calcifications. Chest: The heart size is borderline. No pericardial effusion.There is no mediastinal or hilar lymphadenopathy. There is a small sliding hiatal hernia. No axillary lymphadenopathy. No acute appearing extrathoracic soft tissue abnormalities. There is mild bilateral dependent atelectasis within the lungs. No evidence of pneumonia, pleural effusion, or pneumothorax. No visible acute pulmonary abnormalities. Upper abdomen: No visible acute findings within the partially imaged upper abdomen. There is a small splenule. Osseous: There are multilevel degenerativechanges within the spine. No acute osseous abnormalities are identified. IMPRESSION: 1. No evidence of pulmonary thromboembolic disease. 2. No acute findings. 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: [id number] : 1955 Requested By: XOCHILT GEIGER Order Number: [id number] Reading MD: Kj Abel Measurements Intervals [place] Rate: 79 P: 75 HI: 193 QRS: 28 QRSD: 96 T: 56 QT: 398 QTc: 458 Interpretive Statements SINUS RHYTHM NONSPECIFIC T-WAVE ABNORMALITY Compared to ECG 01/28/2024 12:24:58 Ventricular premature complex(es) no longer present T- wave abnormality still present Other ischemic changes, notSTEMI Preliminary EKG Interpretation by QUETA Callaway XR CHEST PORTABLE Result Date: 02/07/2024 EXAM: XR CHEST PORTABLE DATE: 02/07/2024 1531 hours Comparison 01/28/2024 INDICATION: Dyspnea TECHNIQUE: One view FINDINGS: Upper normal heart size. Normal pulmonary vessel size. The lungs are clear. No pleural effusion. Normal appearance of the bones. IMPRESSION: Borderline heart size and clear lungs. Referred By: Interpreted By: Florin Cobos MD, 02/07/2024 4:15 PM ECG 12 lead Result Date: 01/30/2024 [facility] 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 Comparison: November 18, 2023 Technique: Upright AP view of the chest Findings: Heart size normal. Proximal airways unremarkable. No suspicious pulmonary lesion, pneumothorax, or pleural effusion. =====IMPRESSION:===== No acute findings.. Poor inspiration limits exam. Ordered By: NATALY ESPINOSA Interpreted By: [place], 01/28/2024 1:44 PM Discharge Medications: Medication List START taking these medications Morning Afternoon Evening Bedtime As Needed lisinopril 20 MG tablet Commonly known as: PRINIVIL Take 1 tablet (20 mg total) by mouth daily for 30 days. Last time this was given: 20 mg on February 12, 2024 9:49 AM Signed by: Dr. Vianey Yang Last time this was given: February 12, 2024 9:49 AM spironolactone 25 MG tablet Commonly known as: ALDACTONE Take 0.5 tablets (12.5 mg total) by mouth daily for 30 days. Last time this was given: 12.5 mg on February 12, 2024 9:49 AM Signed by: Dr. Vianey Yang Last time this was given: February 12, 2024 9:49 AM torsemide 20 MG tablet Commonly known as: DEMADEX Start taking on: February 13, 2024 Take 1 tablet (20 mg total) by mouth daily for 30 days. Last time this was given: 20 mg on February 12, 2024 9:49 AM Signed by: Dr. Vianey Yang Last time this was given: February 12, 2024 9:49 AM triamcinolone 0.5 % ointment Commonly known as: KENALOG Apply topically 2 (two) times daily for 7 days. Last time this was given: February 12, 2024 9:51 AM Signed by: Dr. Vianey Yang Last time this was given: February 12, 2024 9:51 AM CONTINUE taking these medications Morning Afternoon Evening Bedtime As Needed acetaminophen 325 MG tablet Commonly known as: TYLENOL Take 2 tablets (650 mg total) by mouth every 6 (six) hours as needed for Pain. atorvastatin 10 MG tablet Commonly known as: LIPITOR take 1 tablet by mouth every day at night Last time this was given: 10 mg on February 12, 2024 9:49 AM Signed by: Dr. Sami Liriano Last time this was given: February 12, 2024 9:49 AM escitalopram 20 MG tablet Commonly known as: LEXAPRO TAKE 1 TABLET BY MOUTH EVERY DAY Last time this was given: 20 mg on February 12, 2024 9:49 AM Signed by: Dr. Sami Liriano Last time this was given: February 12, 2024 9:49 AM magnesium oxide 400 (240 Mg) MG tablet Commonly known as: MAG-OX Take 1 tablet (400 mg total) by mouth 2 (two) times daily. Last time this was given: 400 mg on February 12, 2024 9:49 AM Last time this was given: February 12, 2024 9:49 AM metFORMIN ER 500 MG 24 hr tablet Commonly known as: GLUCOPHAGE-XR take 1 tablet by mouth every day with breakfast Signed by: Dr. Sami Liriano NEBULIZER DEVICE (DME) Take 1 Device by nebulization every 6 (six) hours as needed. Signed by: Dr. Sami Liriano NEBULIZER/TUBING/MOUTHPIECE KIT (DME) 1 kit by Other route every 6 (six) hours as needed. Signed by: Dr. Sami Liriano potassium chloride CR 10 MEQ Tbcr tablet Commonly known as: K-TAB TAKE ONE TABLET DAILY Patient must be seen for further refills Last time this was given: 10 mEq on February 12, 2024 9:49 AM Signed by: Dr. Sami Liriano Last time this was given: February 12, 2024 9:49 AM tiZANidine 2 MG tablet Commonly known as: ZANAFLEX TAKE 1 TABLET(2 MG) BY MOUTH EVERY 6 HOURS NEEDED Signed by: Dr. Sami Liriano traMADol 50 MG tablet Commonly known as: ULTRAM Take 1 tablet (50 mg total) by mouth every 6 (six) hours as needed for Pain. Indications: Chronic Pain Last time this was given: 50 mg on February 09, 2024 1:35 AM Signed by: Dr. Sami Liriano Last time this was given: February 09, 2024 1:35 AM STOP taking these medications amLODIPine 5 MG tablet Commonly known as: NORVASC furosemide 40 MG tablet Commonly known as: LASIX hydroCHLOROthiazide 25 MG tablet Commonly known as: HYDRODIURIL ASK your doctor about these medications Morning Afternoon Evening Bedtime As Needed * albuterol sulfate HFA 108 (90 Base) MCG/ACT inhaler Inhale 2 puffs into the lungs every 4 (four) hours as needed for Wheezing or Shortness of breath. You are not taking this medication. If you have questions about this medication, ask the prescribing provider: Dr. Sami Liriano. Signed by: Dr. Sami Liriano * albuterol (2.5 MG/3ML) 0.083% nebulizer solution Commonly known as: PROVENTIL Take 3 mLs (2.5 mg total) by nebulization every 6 (six) hours as needed for Wheezing. You are not taking this medication. If you have questions about this medication, ask the prescribing provider: Dr. Sami Liriano. Signed by: Dr. Sami Liriano Breztri Aerosphere 160-9-4.8 MCG/ACT Aero Inhale 2 Inhalations into the lungs 2 (two) times a day. You are not taking this medication. If you have questions about this medication, ask the prescribing provider: Barb Sexton. Signed by: Barb Sexton Generic drug: Zgiospf-Kgikrqmvgpk-Tcuzorjghb ipratropium-albuterol 0.5-2.5 (3) MG/3ML Soln Commonly known as: DUONEB Take 3 mLs by nebulization. You are not taking this medication. If you have questions about this medication, ask the prescribing provider. * This list has 2 medication(s) that are the same as other medications prescribed for you. Read thedirections carefully, and ask your doctor or other care provider to review them with you. Disposition: Home with self care Patient Instructions: Follow-up appointments: PCP, card Time Spent on Discharge: more than 30 minutes Signed: VIANEY YANG DO documented in this encounter Medications at Time of Discharge acetaminophen 325 MG tablet Take 2 tablets (650 mg total) by mouth every 6 (six) hours as needed for Pain. albuterol (PROVENTIL) (2.5 MG/3ML) 0.083% nebulizer solutionIndications :Mucopurulent chronic bronchitis ([facility]),Chronic bronchitis, unspecified chronic bronchitis type ([facility]),Bronchitis ,Wheezing Take 3 mLs (2.5 mg total) by nebulization every 6 (six) hours as needed for Wheezing. 360 mL 4 albuterol sulfate HFA 108 (90 Base) MCG/ACT inhalerIndications: Wheezing Inhale 2 puffs into the lungs every 4 (four) hours as needed for Wheezing or Shortness of breath. 18 g 2 3 atorvastatin (LIPITOR) 10 MG tabletIndications:M ixed hyperlipidemia take 1 tablet by mouth every day at night 90 tablet 4 escitalopram (LEXAPRO) 20 MG tabletIndications:C urrent mild episode of major depressive disorder without prior episode ([facility]) TAKE 1 TABLET BY MOUTH EVERY DAY 90 tablet 1 3 ipratropium-albuter ol (DUONEB) 0.5-2.5 (3) MG/3ML Solution Take 3 mLs by nebulization. 4 magnesium oxide (MAG-OX) 400 (240 Mg) MG tablet Take 1 tablet (400 mg total) by mouth 2 (two) times daily. Budeson-Glycopyrrol -Formoterol (BREZTRI AEROSPHERE) 160-9-4.8 MCG/ACT AerosolIndications: Mucopurulent chronic bronchitis ([facility]) Inhale 2 Inhalations into the lungs 2 (two) times a day. 10.7 g 2 4 07/30/20 24 lisinopril (PRINIVIL) 20 MG tablet Take 1 tablet (20 mg total) by mouth daily for 30 days. 30 tablet 4 03/18/20 24 metFORMIN ER (GLUCOPHAGE-XR) 500 MG 24 hr tabletIndications:T ype 2 diabetes mellitus without complication, without long-term current use of insulin ([facility]) take 1 tablet by mouth every day with breakfast 90 tablet 4 04/30/20 24 NEBULIZER DEVICE, DME,Indications:Muc opurulent chronic bronchitis ([facility]) Take 1 Device by nebulization every 6 (six) hours as needed. 1 Device 4 07/06/20 24 NEBULIZER/TUBING/MO UTHPIECE KIT, DME,Indications:Muc opurulent chronic bronchitis ([facility]) 1 kit by Other route every 6 (six) hours as needed. 1 kit 4 07/06/20 24 potassium chloride CR (K-TAB) 10 MEQ Tab CR tabletIndications:B ilateral lower extremity edema TAKE ONE TABLET DAILY Patient must be seen for further refills 30 tablet 2 03/02/20 24 spironolactone (ALDACTONE) 25 MG tablet Take 0.5 tablets (12.5 mg total) by mouth daily for 30 days. 15 tablet 4 03/11/20 24 tiZANidine (ZANAFLEX) 2 MG tabletIndications:M uscle spasm TAKE 1 TABLET(2 MG) BY MOUTH EVERY 6 HOURS NEEDED 20 tablet 4 04/06/20 24 torsemide (DEMADEX) 20 MG tablet Take 1 tablet (20 mg total) by mouth daily for 30 days. 30 tablet 4 02/17/20 24 traMADol (ULTRAM) 50 MG tabletIndications:C hronic Pain Take 1 tablet (50 mg total) by mouth every 6 (six) hours as needed for Pain. Indications: Chronic Pain 60 tablet 2 04/22/20 24 triamcinolone (KENALOG) 0.5 % ointment Apply topically 2 (two) times daily for 7 days. 15 g 4 02/19/20 documented as of this encounter Progress Notes * Vianey Yang DO - 02/12/2024 2:08 PM CDT Request for Documentation Clarification Hair Arredondo ; VISIT [id number] Query Response Sent: 02/14/24 11:14 CDT From: Vianey Yang DO Query question: Please clarify the diagnosis of ACUTE KIDNEY INJURY (BOONE) as documented in this record Provider response: Clinically undetermined Original Query Sent: 02/14/24 09:18 CDT From: aDvid Bob RN, CCDS To: Vianey Yang DO By submitting this query, we are seeking further clarification of documentation to accurately reflect all conditions that you monitored, evaluated, treated, or that may have extended the hospitalization or utilization of additional resources for care. Chart review has indicated your clinical opinion is needed regarding the following diagnosis. Your response serves as your authenticated entry to the Legal Medical Record. The fact that a question isasked does not imply that any particular diagnosis is desired or expected. Please clarify the diagnosis of ACUTE KIDNEY INJURY (BOONE) as documented in this record * ACUTE KIDNEY INJURY (BOONE), as evidenced by * ACUTE KIDNEY INJURY (BOONE), Ruled Out * Clinically undetermined * Other Clinical Information H&P by Winter James at 02/08/2024 00:05 68-year-old female with past medical history of HFpEF, diabetes, hypertension, presents to the ER with shortness of breath and lower extremity edema She has been taking 80 mg of Lasix in the morning, 80 mg in the afternoon, and 40 mg at night BOONE versus CKD 3 Creatinine 1.14. Was 1.09-1.2 earlier this year Monitor with diuresis PROGRESS by Vianey Camilo at 02/10/2024 12:25 Monitor with diuresis, trending up possible transition to PO lasix tomorrow Disch Summ by Vianey Camilo at 02/12/2024 12:54 BOONE versus CKD 3 Monitor BMP. Switched to PO diuretic, will need outpatient BMP after d/c with PCP or card CREATININE: 02/06 1.14, 02/08 1.20, 02/09 1.40, 02/11 1.41 GFR's: 02/06 52, 02/08 49, 02/09 40, 02/11 40 * Sylvia Ventura RN - 02/12/2024 1:04 PM CDT 02/12/24 1304 Discharge Planning Living Arrangements Family members Support Systems Family members Type of Residence Private residence Assistance Needed No Patient expects to be discharged to: Home or Self care no new needs IV Infusion at discharge No DME Needed at Discharge No Patient to discharge to home today, family member will provide transportation home, no further discharge needs. * Ricky Rosales RN - 02/12/2024 12:38 AM CDT Problem: Fluid Volume - Imbalance Goal: Absence of imbalanced fluid volume signs and symptoms Outcome: Progressing Problem: Venous Thromboembolism - Risk of Goal: Absence of venous thromboembolism Outcome: Progressing Problem: Safety Goal: Patient will be injury free during hospitalization Description: Assess and monitor vitals signs, neurological status including level of consciousness and orientation. Assess patient's risk for falls and implement fall prevention plan of care and interventions per hospital policy. Ensure arm band on, uncluttered walking paths in room, adequate room lighting, call light and overbed table within reach, bed in low position, wheels locked, side rails up per policy, and non-skid footwear provided. Outcome: Progressing Problem: Daily Care Goal: Daily care needs are met Description: Assess and monitor ability to perform self care and identify potential discharge needs. Outcome: Progressing Problem: Reduced risk for falls/injury Goal: Reduced Risk of Dizziness/Vertigo/Balance Outcome: Progressing Goal: Reduced Risk of Polypharmacy Outcome: Progressing Problem: Discharge Planning Goal: Knowledge of discharge plan Outcome: Progressing Problem: Activity Intolerance Goal: Improved activity tolerance Outcome: Progressing Goal: Able to participate in acute rehabilitation Outcome: Progressing Goal: Able to perform prescribed physical activity Outcome: Progressing Problem: Pain - Acute Goal: Achieve acceptable pain level Outcome: Progressing Problem: Tissue Perfusion - Cardiopulmonary, Altered Goal: Absence of chest pain Outcome: Progressing Problem: Venous Thromboembolism - Risk of Goal: Absence of venous thromboembolism Outcome: Progressing Problem: Discharge Planning Goal: Knowledge of discharge instructions Outcome: Progressing Problem: Cardiac Output - Decreased Goal: Cardiac output within specified parameters Outcome: Progressing Problem: Fluid Volume - Excess Goal: Absence of fluid overload signs and symptoms Outcome: Progressing Goal: Electrolytes within specified parameters Outcome: Progressing Problem: Gas Exchange - Impaired Goal: Adequate oxygenation Outcome: Progressing Problem: Reduced risk for falls/injury Goal: Reduced Risk for Falls/Injury Outcome: Progressing Goal: Reduced Risk of Confusion (Acute vs Chronic) Outcome: Progressing Goal: Reduced Risk of Symptomatic Depression Outcome: Progressing Goal: Reduced Risk of Altered Elimination Outcome: Progressing Goal: Reduced Risk of Dizziness/Vertigo/Balance Outcome: Progressing Goal: Reduced Risk of Polypharmacy Outcome: Progressing Problem: Pain Goal: Patient's pain/discomfort is manageable Description: Assess and monitor patient's pain using appropriate pain scale. Collaborate with interdisciplinary team and initiate plan and interventions as ordered. Re-assess patient's pain level 30 - 60 minutes after pain management intervention. Outcome: Progressing Problem: Safety Goal: Patient will be injury free during hospitalization Description: Assess and monitor vitals signs, neurological status including level of consciousness and orientation. Assess patient's risk for falls and implement fall prevention plan of care and interventions per hospital policy. Ensure arm band on, uncluttered walking paths in room, adequate room lighting, call light and overbed table within reach, bed in low position, wheels locked, side rails up per policy, and non-skid footwear provided. Outcome: Progressing Problem: Daily Care Goal: Daily care needs are met Description: Assess and monitor ability to perform self care and identify potential discharge needs. Outcome: Progressing Problem: Psychosocial Needs Goal: Demonstrates ability to cope with hospitalization/illness Description: Assess and monitor patients ability to cope with his/her illness. Outcome: Progressing Goal: Collaborate with patient/family/caregiver to identify patient specific goals for this hospitalization Outcome: Progressing Problem: Discharge Barriers Goal: Patient's discharge needs are met Description: Collaborate with interdisciplinary team and initiate plans and interventions as needed. Outcome: Progressing * Niya Mario RN-LP - 02/11/2024 1:49 PM CDTSummary: Patient Care Plan Problem: Fluid Volume - Imbalance Goal: Absence of imbalanced fluid volume signs and symptoms Outcome: Progressing Problem: Venous Thromboembolism - Risk of Goal: Absence of venous thromboembolism Outcome: Progressing Problem: Safety Goal: Patient will be injury free during hospitalization Description: Assess and monitor vitals signs, neurological status including level of consciousness and orientation. Assess patient's risk for falls and implement fall prevention plan of care and interventions per hospital policy. Ensure arm band on, uncluttered walking paths in room, adequate room lighting, call light and overbed table within reach, bed in low position, wheels locked, side rails up per policy, and non-skid footwear provided. Outcome: Progressing Problem: Daily Care Goal: Daily care needs are met Description: Assess and monitor ability to perform self care and identify potential discharge needs. Outcome: Progressing Problem: Reduced risk for falls/injury Goal: Reduced Risk of Polypharmacy Outcome: Progressing Problem: Discharge Planning Goal: Knowledge of discharge plan Outcome: Progressing Problem: Activity Intolerance Goal: Improved activity tolerance Outcome: Progressing Goal: Able to participate in acute rehabilitation Outcome: Progressing Goal: Able to perform prescribed physical activity Outcome: Progressing Problem: Pain - Acute Goal: Achieve acceptable pain level Outcome: Progressing Problem: Venous Thromboembolism - Risk of Goal: Absence of venous thromboembolism Outcome: Progressing Problem: Reduced risk for falls/injury Goal: Reduced Risk for Falls/Injury Outcome: Progressing Problem: Pain Goal: Patient's pain/discomfort is manageable Description: Assess and monitor patient's pain using appropriate pain scale. Collaborate with interdisciplinary team and initiate plan and interventions as ordered. Re-assess patient's pain level 30 - 60 minutes after pain management intervention. Outcome: Progressing Problem: Safety Goal: Patient will be injury free during hospitalization Description: Assess and monitor vitals signs, neurological status including level of consciousness and orientation. Assess patient's risk for falls and implement fall prevention plan of care and interventions per hospital policy. Ensure arm band on, uncluttered walking paths in room, adequate room lighting, call light and overbed table within reach, bed in low position, wheels locked, side rails up per policy, and non-skid footwear provided. Outcome: Progressing Problem: Daily Care Goal: Daily care needs are met Description: Assess and monitor ability to perform self care and identify potential discharge needs. Outcome: Progressing Problem: Psychosocial Needs Goal: Demonstrates ability to cope with hospitalization/illness Description: Assess and monitor patients ability to cope with his/her illness. Outcome: Progressing Goal: Collaborate with patient/family/caregiver to identify patient specific goals for this hospitalization Outcome: Progressing Problem: Discharge Barriers Goal: Patient's discharge needs are met Description: Collaborate with interdisciplinary team and initiate plans and interventions as needed. Outcome: Progressing * Tessa Rainey, PT - 02/11/2024 11:14 AM CDT 02/11/24 1000 Therapy Visit Ordering Provider Trey PT Evaluation Completed on 02/11/24 Subjective Room 454: RN cleared pt for PT eval. Pt is in chair, agreeable. Denies pain at this time. Reason for admission CHF Relevant Comorbidities/ Personal Factors to PT OA, GERD, HTN, anx/dep, DM Verified Two Patient Identifiers Yes Patient consents to therapy Yes Acute Inpatient PT Time Calculation PT Start Time 1005 PT Stop Time 1016 PT Time Calculation (min) 11 min Precautions Weight Bearing Status Full weight bearing General Precautions Fall Risk PPE Used Gloves Instructed on Precautions Yes;Verbalizes understanding Home Living Type of Home House Home Layout Two level Home Accessibility 5+ Steps to enter;Unilateral rail Home Equipment Straight cane (stair lift) Home Living Comments sister has walkers Prior Function Level of [place] Independent with ADLs;Independent with functional transfers;Independent with ambulation;Independent with homemaking with ambulation Device used at baseline None Baseline Ambulation Distance/Assistance limited community Fall History Yes Reason for fall slipped Most recent fall last week How many falls in the past year? 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 Pain Pain No Activity Tolerance Endurance Tolerates 10 - 20 min activity with rests Endurance Quality Fair Limiting Factors to Endurance Shortness of breath Cognition Overall Cognitive Status WFL Orientation Level Oriented X4 Overall Extremity Assessment Lower Extremity good to fair strength bilateral LEs TRANSFERS Stand Pivot Transfers Independent Sit to Stand Independent Gait Gait Assistance Independent Assistive Device None Distance Ambulated (ft) 125 ft Pattern WFL Weight Bearing Status Weight bearing as tolerated Stairs Stair Management Assistance Modified independence Stair Management Technique One rail R;Alternating pattern;Step to pattern;Forward;Sideways Number of Stairs 6 Balance Sitting - Static Independent Sitting - Dynamic Independent Standing - Static Independent Standing - Dynamic Independent Assessment Personal Factors/Comorbidities Impacting Care 3-4 personal factors/comorbidities Examination of Body Systems Moderate (3 or more Elements) Objectives of Body Systems Decreased LE strength;Decreased endurance Clinical Presentation of Patient Evolving and changing characteristics Complexity Level of Evaluation Moderate Prognosis Fair;Good PT Assess/Eval Other (Comment) Pt is a 68 YO female admitted d/t CHF. Prior to admission and today in therapy, pt is indep with mobility without a device. Feel that pt is at or near baseline LOF and does not require skilled PT services at this time. Pt is safe to DC to home. Patient/Family Training Transfer Training x Gait Training x Stair Climbing x Precautions x Other (Comment) good insight Discharge Recommendation PT Recommendation Home independently;No skilled PT PT Equipment Recommended No DME Needed No Skilled PT At baseline function Plan Progress Discontinue PT If this is the last treatment note,it will serve as the discharge summary Yes End of Session End of Session Safety Call light within reach;Nursing aware of session Interdisciplinary Collaboration RN, OT, RNCM * Sylvia Ventura RN - 02/11/2024 8:55 AM CDT 02/11/24 0855 Forms First Important Message from Medicare ([facility]) Signed Copy delivered * Carlos Farris MD - 02/11/2024 8:31 AM CDT Images from the original note were not included. [place], [place] [address] Cardiology Consult PCP: Sami Liriano, Cardiac Problem List HTN HF HLD Former Smoker Interval History This morning she says she is having a lot of itching on her legs. Weight is down to 240 [address] Cr. Downtrending. History Ms. Hair Sargent is a 68-year-old female. Patient was seen in clinic for initial [...] the ER for admission for HF exacerbation. Past Medical History: Diagnosis Date Anxiety disorder, unspecified Arthritis Arthritis of left knee 11/08/2019 Depression Diabetes mellitus ([facility]) GERD (gastroesophageal reflux disease) Hypertension Overactive bladder Positive colorectal cancer screening using Cologuard test 04/19/2020 Added automatically from request for surgery [id number] Past Surgical History: Procedure Laterality Date ANKLE SURGERY left SECTION COLONOSCOPY N/A 04/27/2020 COLONOSCOPY WITH BIOPSY X 3 performed by Joel Keenan MD at [facility] OR COLONOSCOPY N/A 11/20/2023 Colonoscopy with Polypectomies performed by Joel Keenan MD at [facility] OR EGD EYE SURGERY FRACTURE SURGERY HERNIA REPAIR HYSTERECTOMY JOINT REPLACEMENT SHOULDER SURG PROC UNLISTED right TONSILLECTOMY TOTAL KNEE ARTHROPLASTY right Social History Tobacco Use Smoking status: Former Current packs/day: 0.00 Average packs/day: 0.5 packs/day for 12.0 years (6.0 ttl pk-yrs) Types: Cigarettes Start date: 09/30/1964 Quit date: 09/30/1976 Years since quittin.3 Passive exposure: Never Smokeless tobacco: Never Vaping [...] Crispin Sargent [facility] Sister Myah Sargent atorvastatin 10 mg Oral Daily cephALEXin 500 mg Oral 4 times per day escitalopram 20 mg Oral Daily heparin (porcine) 5,000 Units Subcutaneous 2 times per day hydrocortisone Topical BID insulin lispro 0-14 Units Subcutaneous TID AC And insulin lispro 0-7 Units Subcutaneous Nightly at bedtime lisinopril 20 mg Oral Daily magnesium oxide 400 mg Oral BID potassium chloride CR 10 mEq Oral Daily spironolactone 12.5 mg Oral Daily acetaminophen, dextrose 10 % bolus, diphenhydrAMINE, docusate sodium, glucagon, glucose, HYDROmorphone, ipratropium-albuterol, naLOXone, ondansetron, polyethylene glycol, tiZANidine, traMADol Prior to Admission medications Medication Sig Start Date End Date Taking? Authorizing Provider amLODIPine (NORVASC) 5 MG tablet TAKE 1 TABLET(5 MG) BY MOUTH DAILY 12/12/23 Yes JENNIFER Davila atorvastatin (LIPITOR) 10 MG tablet take 1 tablet by mouth every day at night Patient taking differently: Take 1 tablet (10 mg total) by mouth daily. 10/21/23 Yes Sami Liriano DO escitalopram (LEXAPRO) 20 MG tablet TAKE 1 TABLET BY MOUTH EVERY DAY Patient taking differently: Take 1 tablet (20 mg total) by mouth daily. 08/28/23 Yes Sami Liriano DO furosemide (LASIX) 40 MG tablet Take 2 tabs in the AM and 1 tab in the PM Patient taking differently: Take 1-2 tablets (40-80 mg total) by mouth 3 (three) times daily. Takes80 mg by mouth in the morning, 80 mg by mouth in the afternoon, and 40 mg by mouth in the evening. 02/03/24 Yes Sami Liriano DO hydroCHLOROthiazide (HYDRODIURIL) 25 MG tablet take 1 tablet by mouth every day in the morning Patient taking differently: Take 1 tablet (25 mg total) by mouth every morning. 10/21/23 Yes Margarita Liriano DO magnesium oxide (MAG-OX) 400 (240 Mg) MG tablet Take 1 tablet (400 mg total) by mouth 2 (two) timesdaily. Yes Default History Genericprovider metFORMIN ER (GLUCOPHAGE-XR) 500 MG 24 hr tablet take 1 tablet by mouth every day with breakfast 01/28/24 Yes Sami Liriano DO potassium chloride CR (K-TAB) 10 MEQ Tab CR tablet TAKE ONE TABLET DAILY Patient must be seen for further refills Patient taking differently: Take 1 tablet (10 mEq total) by mouth daily. 09/25/22 Yes Sami Liriano DO acetaminophen 325 MG tablet Take 2 tablets (650 mg total) by mouth every 6 (six) hours as needed for Pain. Doc [facility] Abstract albuterol (PROVENTIL) (2.5 MG/3ML) 0.083% nebulizer solution Take 3 mLs (2.5 mg total) by nebulization every 6 (six) hours as needed for Wheezing. Patient not taking: Reported on 02/07/2024 12/06/23 Sami Liriano DO albuterol sulfate HFA 108 (90 Base) MCG/ACT inhaler Inhale 2 puffs into the lungs every 4 (four) hours as needed for Wheezing or Shortness of breath. Patient not taking: Reported on 02/07/2024 07/26/23 Sami Liriano DO Gawjlax-Vetwrrfnrso-Ocuspnqbev (BREZTRI AEROSPHERE) 160-9-4.8 MCG/ACT Aerosol Inhale 2 Inhalations into the lungs 2 (two) times a day. Patient not taking: Reported on 02/07/2024 12/12/23 JENNIFER Davila ipratropium-albuterol (DUONEB) 0.5-2.5 (3) MG/3ML Solution Take 3 mLs by nebulization. Patient not taking: Reported on 02/07/2024 12/06/23 Default History Genericprovider NEBULIZER DEVICE, DME, Take 1 Device by nebulization every 6 (six) hours as needed. 11/18/23 Margarita Liriano, DO NEBULIZER/TUBING/MOUTHPIECE KIT, DME, 1 kit by Other route every 6 (six) hours as needed. 11/18/23 Sami Liriano, DO tiZANidine (ZANAFLEX) 2 MG tablet TAKE 1 TABLET(2 MG) BY MOUTH EVERY 6 HOURS NEEDED Patient taking differently: Take 1 tablet (2 mg total) by mouth every 6 (six) hours as needed (spasms). 01/21/24 Sami Liriano DO traMADol (ULTRAM) 50 MG tablet Take 1 tablet (50 mg total) by mouth every 6 (six) hours as needed for Pain. Indications: Chronic Pain 07/03/22 Sami Liriano DO Review of patient's allergies indicates: Allergen Reactions Chocolate Hives Penicillins Rash Sulfa Antibiotics Rash Review of Systems: A 14 point ROS was completed and was negative except as per HPI. Physical Exam Filed Vitals: 02/10/24 1927 02/10/24 2319 02/11/24 0356 02/11/24 0743 BP: (!) 140/61 97/73 105/41 122/57 Pulse: 74 70 62 63 Resp: 18 20 18 Temp: 98.1 ??F (36.7 ??C) 97.9 ??F (36.6 ??C) 97.3 ??F (36.3 ??C) 97.9 ??F (36.6 ??C) TempSrc: Oral Oral Oral Oral SpO2: 93% 100% 98% 98% Weight: 109.2 kg (240 lb 11.9 oz) Height: Body mass index is 47.02 kg/m??. Physical Exam: General: NAD, Appears Normal Stated Age HEENT: PEERL, EOMI, MMM NECK: No JVD CVS: RRR, no MRG Resp: CTAB ABD: Soft, NT, ND, +BS Ext: No CC ,Trace edema Neuro: Non Focal Psych: Normal Affect Diagnostic Data Lab Results Component Value Date/Time WBC 8.91 02/11/2024 06:46 AM HGB 11.5 (L) 02/11/2024 06:46 AM HCT 35.9 (L) 02/11/2024 06:46 AM PLT 236 02/11/2024 06:46 AM NA 137 02/11/2024 06:46 AM CL 104 02/11/2024 06:46 AM K 3.8 02/11/2024 06:46 AM GLU 122 (H) 02/11/2024 06:46 AM BUN 31 (H) 02/11/2024 06:46 AM CR 1.36 (H) 02/11/2024 06:46 AM CA 9.6 02/11/2024 06:46 AM MAGNESIUM 2.4 02/07/2024 06:01 PM AST 23 02/07/2024 03:26 PM ALT 25 02/07/2024 03:26 PM ALB 3.7 02/07/2024 03:26 PM Lab Results Component Value Date CHOL 164 [...] of tricuspid regurgitation. Stress Test RegSpect 2020: Stress conclusion: 1. Clinically negative. 2. Electrocardiographically negative treadmill test for ischemia. 3. Fair exercise capacity. 4. [place]o Treadmill Score is not applicable, which indicates indeterminate risk. 5. Blood pressure response was normal. 6. Scintigraphic images to follow. 7. As patient complained of shortness of breath, treadmill speed was lowered , lexican injected. Then treadmill stopped due to dyspnea,weakness. Perfusion conclusion: 1. Good study quality. No motion correction was applied to images. Breast attenuation is noted. Prone imaging was performed. 2. Normal myocardial perfusion SPECT imaging. Stress images only . 3. Normal wall motion with an ejection fraction of 76%. 4. Stress test with myocardial perfusion imaging shows overall low risk for a cardiac event. Holter Left Heart Catherization Assessment/Plan HFpEF HLD HTN Former Smoker In regards to her HFpEF she is reaching euvolemia. Weight is down from 250 to 240 pounds. Echocardiogram this admission with EF 60 to 65%. She is on Aldactone 12.5 mg once daily for goal-directed medical therapy. Will start torsdemide 20 mg Po QD. In regards to her hyperlipidemia she will continue her atorvastatin. Regards to her hypertension she is on Aldactone 12.5 mg daily, and lisinopril 20 mg daily. Dispo: recommend monitoring on orals for one day, can likely dc tomorrow. Thank you for allowing me to participate in the care of this patient. Please reach out with any questions. Carlos Farris MD Portions of this note were dictated using [employer] speech recognition software. Occasional wrong wordor sound-alike substitutions may have occurred due to the inherent limitations of voice recognition software. Please read the chart carefully and recognize, using context, where the substitutions may have occurred. * Vianey Yang, DO - 02/11/2024 7:53 AM CDT Hospitalist Daily Progress Note Subjective No acute events overnight. Patient having persistent itching bilateral lower legs. She tried putting warm water on it with no improvement. VSS. Objective Filed Vitals: 02/10/24 1927 02/10/24 2319 02/11/24 0356 02/11/24 0743 BP: (!) 140/61 97/73 105/41 122/57 Pulse: 74 70 62 63 Resp: 18 20 18 Temp: 98.1 ??F (36.7 ??C) 97.9 ??F (36.6 ??C) 97.3 ??F (36.3 ??C) 97.9 ??F (36.6 ??C) TempSrc: Oral Oral Oral Oral SpO2: 93% 100% 98% 98% Weight: 109.2 kg (240 lb 11.9 oz) Height: Intake/Output 24H Total: Intake/Output Summary (Last 24 hours) at 02/11/2024 0757 Last data filed at 02/11/2024 0356 Gross per 24 hour Intake -- Output 1700 ml Net -1700 ml Physical Exam: General: No acute distress, breathing comfortably on room air. Eyes: Extraocular movements intact ENT: Neck supple, Septum is midline. Lungs: Diminished breath sounds Cardiovascular: Regular rate rhythm Abdomen: Soft, nondistended, Nontender Extremities: + lower extremity edema. Neurological: Alert, awake, oriented Skin: Macupapular rash bilateral lower extremities > left Medications atorvastatin 10 mg Oral Daily cephALEXin 500 mg Oral 4 times per day escitalopram 20 mg Oral Daily heparin (porcine) 5,000 Units Subcutaneous 2 times per day hydrocortisone Topical BID insulin lispro 0-14 Units Subcutaneous TID AC And insulin lispro 0-7 Units Subcutaneous Nightly at bedtime lisinopril 20 mg Oral Daily magnesium oxide 400 mg Oral BID potassium chloride CR 10 mEq Oral Daily spironolactone 12.5 mg Oral Daily acetaminophen, dextrose 10 % bolus, diphenhydrAMINE, docusate sodium, glucagon, glucose, HYDROmorphone, ipratropium-albuterol, naLOXone, ondansetron, polyethylene glycol, tiZANidine, traMADol Labs, Imaging, Other Studies Recent Labs Lab 02/07/24 1526 02/08/24 0957 02/10/24 1001 02/11/24 0646 WBC 10.71 8.87 10.75 8.91 RBC 4.33 4.82 4.70 4.22 HGB 11.7* 13.0 12.7 11.5* HCT 36.9* 41.2 40.9 35.9* MCV 85.2 85.5 87.0 85.1 MCH 27.0 27.0 27.0 27.3 MCHC 31.7* 31.6* 31.1* 32.0 PLT 239 249 266 236 RDW 14.1 14.2 14.6* 14.5 MPV 9.8 10.0 9.9 9.8 PERNEU 62.6 58.7 56.8 50.5 PERLYM 26.3 30.9 31.5 35.6 PERMON 8.1 7.0 8.7 10.0 NEUC 6.71 5.21 6.11 4.50 LYMC 2.82 2.74 3.39 3.17 MONOC 0.87* 0.62 0.94* 0.89* EOSC 0.20 0.20 0.21 0.28 BASOC 0.07 0.07 0.06 0.05 DTYPE AUTOMATED DIFFERENTIAL AUTOMATED DIFFERENTIAL AUTOMATED DIFFERENTIAL AUTOMATED DIFFERENTIAL Recent Labs Lab 02/07/24 1526 02/08/24 0957 02/09/24 1205 02/10/24 1001 02/11/24 0646 NA 139 138 138 136 137 K 3.3* 3.8 3.3* 4.0 3.8 CL 106 104 102 103 104 CO2 29.9 28.2 29.2 26.3 27.5 AGAP 3.1* 5.8 6.8 6.7 5.5 BUN 25* 18 20* 28* 31* CR 1.14* 1.15* 1.20* 1.40* 1.36* BUNCREATININ 21.9 15.7 16.7 20.0 22.8 GLU 131* 158* 122* 133* 122* CA 9.4 9.6 9.8 10.0 9.6 TP 7.5 -- -- -- -- ALB 3.7 -- -- -- -- TBIL 0.9 -- -- -- -- ALKP 93 -- -- -- -- AST 23 -- -- -- -- ALT 25 -- -- -- -- No results for input(s): CHOL , TRI , HDL , LDL , HGBA1C , TSH in the last 168 hours. No results for input(s): APTT , INR , PTT in the last 168 hours. Recent Labs Lab 02/07/24 1526 02/07/24 1801 TROP 9 10 No results for input(s): LACTICACID , PROCT in the last 168 hours. No results for input(s): PH , PCO2 , PO2 , [id number] , BICARBWB , BASEDEFICIT , BASEEXCESS in the last 168 hours. No results found for this or any previous visit. Imaging USE ECHOCARDIOGRAM W CON Result Date: 02/09/2024 Echocardiography Report Pat.Name: HAIR SARGENT Pat.ID: [id number] St.Date: 02/08/2024 Refer.MD: WINTER CH H Exam Time: 12:54:00 PM Study Type:ECHO WITH CARDIAC DOPPLER COMP Height: 60 in Weight: 250 lb BSA: 2.05 m2 Age: 5 1955,68Y Sex: F BP: 140/63 HR: 77 bpm Sonogrphr: Karen Fisher RDCS Pat. Stat.:Inpatient Room: [facility] Reason for Study:CHF History / Clinical:Hypertension, GERD, Sleep Apnea, Renal Insufficiency, LE edma; PMH- Obese, HTN, xtob, CKD3, MOR-CPAP, Le edema- ondiuretics, prior BLEV @ [facility] 03/07/20 negative Procedures: 2D, M-mode, Doppler, Color Flow, Definity was used to enhance endocardial definition. Race: W ++++++++++++++++++++++++++++++++++++ SUMMARY: ++++++++++++++++++++++++++++++++++++ Left ventricle is normal in size and systolic function Estimated EF of 60-65% Right ventricle is normal in size and systolic function Mild to moderate pulmonic regurgitation Unable to reliably quantitate pulmonary systolic pressure. ++++++++++++++++++++++++++++++++++++ FINDINGS: ++++++++++++++++++++++++++++++++++++ LV: The left ventricular size is normal. Theleft ventricular systolic function is normal. Estimated left ventricular ejection fraction is 60-65%. Mild concentric left ventricular hypertrophy. Left ventricular diastolic function is normal. WM:Wall motion appears normal in all segments. LVOT: The left ventricular outflow tract size is normal. RV: The right ventricular size is normal. Right ventricular systolic function is normal. IVS: No evidence of ventricular septal defect. LA: The left atrial volume is normal ( less than 34 ml/M2). RA: Right atrial size is normal. IAS: Atrial septum appears intact. MIGUEL: No evidence of pericardial effusion. Prominent pericardial fat pad visualized. AO: Normal aortic root. PA: Estimated right atrial pressure of 3 mmHg. Unable to reliably quantitate pulmonary systolic pressure. SVn: Systemic veinsare normal. AV: The aortic valve is trileaflet. No evidence of aortic valve stenosis. No evidence of aortic valve regurgitation. MV: Structurally normal mitral valve. Mild mitral regurgitation. No evidence of mitral stenosis. PV: No evidence of pulmonic valve stenosis. Mild to moderate pulmonic regurgitation. TV: Structurally normal tricuspid valve. A trace of tricuspid regurgitation. No evidenceof tricuspid valve stenosis. ++++++++++++++++++++++++++++++++++++ MEASUREMENTS: ++++++++++++++++++++ ++++++++++++++++ DOPPLER LVOT LVOTpkPG 4 mmHg LVOTmnPG 2 mmHg LVOTpkVel 106 cm/s (70-110)+ LVOT SV 71 ml LVOT TVI 22.6 cm Pulmonary Veins PVnpkVeld 28.7 cm/s PVnVs/Vd 1.5 PVnpkVels 43.1 cm/s PVn A Dur 144 msec AV Forward Flow AV TVI 25.6 cm AV pkPG 7 mmHg AV pkVel 130 cm/s (100-170)+ Area (TVI) 2.77 cm2 (3-5)* AV mnPG 4 mmHg Area (Kurtis) 2.56 cm2 (3-5)* MV Forward Flow MV DeTm 225 msec MV pkE 70.2cm/s (60-130) MV E/A 0.7 MV pkA 94.3 cm/s PV Forward Flow PV pkVel 142 cm/s (60-90)+* PV AC 79 msec PV pkPG 8 mmHg PV Regurg Flow PV pkVel 107 cm/s TV Forward Flow TV pkE 35.6 cm/s Lat E' Lat e 8.49cm/s Lat E/E' Lat E/e 8.3 Med E' Med e 5.98 cm/s Med E/E' Med E/e 11.7 Aortic Valve Aortic Valve Ar1.35 Aortic Valve Ve 0.82 PV Antegrade Flow Acceleration Sl 1363 cm/s2 PV Regurgitant Flow Peak Gradient ( 5 mmHg Right Atrium Yang's Disk 20 Right Ventricle Right Ventricle 14.8 cm/s 2D Left Ventricle LVIDd 4.37 cm (3.6-5.2) LV ESV 22.7 ml LVIDs 2.65 cm (2.3-3.9) LV ESV 22.4 ml LngAxd 7.21 cmLVESV BP 22.8 ml LngAxd 7.17 cm LV EF 59.4 % LV EDV 55.9 ml LV EF 70 % LV EDV 74.5 ml LV EF BP 64.8 % LVEDV BP 64.7 ml LV SV 33.2 ml LngAxs 5.77 cm LV SV 52.2 ml LngAxs 5.96 cm LV SV BP 41.9 ml LVPWLVPWd 1.26 cm Right Ventricle RVIDd 3.33 cm (2.6-4.3) Right Ventricle 34.6 mm Right Ventricle 35.6 mm Right and Left 0.762 Major [place] 64.5 mm Ventricular Septum IVSd 1.18 cm Left Atrium LA VOLBP 37.1 ml Aorta Ao Rtd 3.6 cm LVOT LVOT 2 cm LVOTArea 3.14 cm2 Ratios IVS LA Biplane LAVol I BP 18.1 ml/m2 RA Single Plane Right Atrium MO 16 mm Right Atrium Sy 41.3 ml Right Atrium Sy 48.6 mm Right Atrium Sy 20.1 ml/m2 Right Atrium Sy 15.8 cm2 MMODE Ratios LA/Ao 1.14 (0.87-1.1)* Left Atrium LAIDs 4.1 cm TA Tricuspid Annul 21.9 mm <Electronic Signature> 02/09/2024 10:47 AM Ismael Lincoln M.D. USV COLETTE DUPLEX LOW EXT HAN Result Date: 02/08/2024 VENOUS DUPLEX IMAGING BILATERAL LOWER EXTREMITY VASCULAR LAB Pat.Name: HAIR SARGENT Pat.ID: [id number] St.Date: 02/08/2024 Refer.: [id number], Colten wing Exam Time: 6:02:00 PM Study Type:KATIE VS Venous Duplex Legs HAN Height: 60 in Age: 5 1955,68Y Sex: F Sonogrphr: Moo Briceno RVT Pat. Stat.:Inpatient History / Clinical:Evaluate for DVT. Hypertension, GERD, Sleep Apnea, Renal Insufficiency Procedures: Horan scale, Color Doppler imaging, Doppler Spectral Analysis Race:W ++++++++++++++++++++++++++++++++++++ SUMMARY: ++++++++++++++++++++++++++++++++++++ Right leg: There are NO apparent, deep or superficial vein, ACUTE character venous filling defects visualized in the femoral, popliteal, deep calf or proximal saphenous veins. Resting venous flow is normal phasic proximally. No valve reflux with compression maneuvers is detected in the femoral and popliteal veins. Left leg: There are NO apparent, deep or superficial vein, ACUTE character venous filling defectsvisualized in the femoral, popliteal, deep calf or proximal saphenous veins. Resting venous flow isnormal phasic proximally. No valve reflux with compression maneuvers is detected in the femoral andpopliteal veins. CONCLUSION: Unsigned Gordo Rodriguez M.D. CTA CHEST PE PROTOCOL Result Date: 02/07/2024 EXAMINATION: CTA chest pulmonary embolism HISTORY: Shortness of breath. Lower extremity swelling. Concern for pulmonary embolus. COMPARISON: Chest x-ray 02/07/2024. TECHNIQUE: Axial CT images of the chest after the uneventful intravenous administration of 80 mL of Isovue-370 given through the right a ntecubital fossa. Sagittal and coronal reformatted image sets with thick section reformatted post processed 3-D/MIP images according to the pulmonary embolus protocol. A dose lowering technique was used for this procedure, which may include, but is not limited to, dose reduction technique, automated exposure control, the use of degenerative reconstruction, and ALARA/image gently techniques. FINDINGS: Vascular: The main pulmonary artery is normal caliber. There is slightly suboptimal opacification of the pulmonary arteries. No definite pulmonary thromboembolic disease is identified. No evidence of right heart strain. There is atherosclerotic vascular disease. The aorta is normal caliber. There are coronary artery calcifications. Chest: The heart size is borderline. No pericardial effusion.There is no mediastinal or hilar lymphadenopathy. There is a small sliding hiatal hernia. No axillary lymphadenopathy. No acute appearing extrathoracic soft tissue abnormalities. There is mild bilateral dependent atelectasis within the lungs. No evidence of pneumonia, pleural effusion, or pneumothorax. No visible acute pulmonary abnormalities. Upper abdomen: No visible acute findings within the partially imaged upper abdomen. There is a small splenule. Osseous: There are multilevel degenerativechanges within the spine. No acute osseous abnormalities are identified. IMPRESSION: 1. No evidence of pulmonary thromboembolic disease. 2. No acute findings. 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1955 Requested By: CASSANDRA HUBBARD Order Number: [id number] Reading MD: Kj Abel Measurements Intervals [place] Rate: 67 P: 73 HI: 202 QRS: 26 QRSD: 97 T: 65 QT: 428 QTc: 453 Interpretive Statements SINUSRHYTHM NONSPECIFIC T-WAVE ABNORMALITY Compared to ECG 02/07/2024 15:32:15 No significant changes Other ischemic changes, not STEMI Preliminary EKG Interpretation by Xochilt BROWN Electronicallysigned by Kj Abel at 02-07-2024 18:59:20 CDT ECG 12 lead Result Date: 02/07/2024 [facility] [address] Test Date: 2024-02-07 Pat Name: HAIR SARGENT Department: 41 Room: INPR Gender: Female 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: [id number] : 1955 Requested By: XOCHILT Pinto Number: [id number] Reading MD: Kj Abel Measurements Intervals [place] Rate: 79 P: 75 HI: 193 QRS: 28 QRSD: 96 T: 56 QT: 398 QTc: 458 Interpretive Statements SINUS RHYTHM NONSPECIFIC T-WAVE ABNORMALITY Compared to ECG 01/28/2024 12:24:58 Ventricular premature complex(es) no longer present T- wave abnormality still present Other ischemic changes, notSTEMI Preliminary EKG Interpretation by QUETA Callaway XR CHEST PORTABLE Result Date: 02/07/2024 EXAM: XR CHEST PORTABLE DATE: 02/07/2024 1531 hours Comparison 01/28/2024 INDICATION: Dyspnea TECHNIQUE: One view FINDINGS: Upper normal heart size. Normal pulmonary vessel size. The lungs are clear. No pleural effusion. Normal appearance of the bones. IMPRESSION: Borderline heart size and clear lungs. 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 Comparison: November 18, 2023 Technique: Upright AP view of the chest Findings: Heart size normal. Proximal airways unremarkable. No suspicious pulmonary lesion, pneumothorax, or pleural effusion. =====IMPRESSION:===== No acute findings.. Poor inspiration limits exam. 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: [id number] : 1955 Requested By: XOCHILT GEIGER Order Number: [id number] Reading MD: Kj Abel Measurements Intervals [place] Rate: 79 P: 75 HI: 193 QRS: 28 QRSD: 96 T: 56 QT: 398 QTc: 458 Interpretive Statements SINUS RHYTHM NONSPECIFIC T-WAVE ABNORMALITY Compared to ECG 01/28/2024 12:24:58 Ventricular premature complex(es) no longer present T-wave abnormality still present Other ischemic changes, not STEMI Preliminary EKG Interpretation by QUETA Callaway ECG 12 lead Narrative [facility] [place] [address] [facility] Test Date: 2024-02-07 Pat Name: HAIR [facility] Department: 41 Room: INPR 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: Female 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1955 Requested By: CASSANDRA HUBBARD Order Number: [id number] Reading MD: Kj Abel Measurements Intervals [place] Rate: 67 P: 73 HI: 202 QRS: 26 QRSD: 97 T: 65 QT: 428 QTc: 453 Interpretive Statements SINUS RHYTHM NONSPECIFIC T-WAVE ABNORMALITY Compared to ECG 02/07/2024 15:32:15 No significant changes Other ischemic changes, not STEMI Preliminary EKG Interpretation by Xochilt Geiger PA Assessment & Plan CHF exacerbation proBNP 141 Had preserved EF in 2020 Repeat echo pending Worsening symptoms despite uptitrating outpatient Lasix IV Lasix 40 mg twice daily Telemetry Cardiology consulted Monitor weight/intake/output/labs Cr trending up, IV lasix stopped Switched to PO torsemide, possible discharge in 24 hours Lower extremity swelling Suspect from CHF Dopplers [...] as it will likely worsen the rash Hypokalemia Replete and monitor BOONE versus CKD 3 Creatinine 1.14 Was 1.09-1.2 earlier this year Cr trended up to 1.4. IV lasix held Monitor BMP Mild normocytic anemia Hb 11.7 Monitor Transfuse as needed to keep hemoglobin greater than 7 Type II NIDDM With dyslipidemia Hold metformin Continue statin SSI/hypoglycemic protocol Hypertension BP up to 194/85 in ER Monitor with diuresis Hold home HCTZ with IV lasix Amlodipine discontinued Lisinopril dose increased Coreg and spironolactone added Anxiety/depression No acute issues Resume home meds DVT prophylaxis: Heparin subq Code status: Full code VIANEY YANG DO 02/11/2024 7:53 AM * Ricky Rosales RN - 02/11/2024 3:26 AM CDTSummary: PO benadryl given as available Problem: Fluid Volume - Imbalance Goal: Absence of imbalanced fluid volume signs and symptoms Outcome: Progressing Problem: Venous Thromboembolism - Risk of Goal: Absence of venous thromboembolism Outcome: Progressing Problem: Safety Goal: Patient will be injury free during hospitalization Description: Assess and monitor vitals signs, neurological status including level of consciousness and orientation. Assess patient's risk for falls and implement fall prevention plan of care and interventions per hospital policy. Ensure arm band on, uncluttered walking paths in room, adequate room lighting, call light and overbed table within reach, bed in low position, wheels locked, side rails up per policy, and non-skid footwear provided. Outcome: Progressing Problem: Daily Care Goal: Daily care needs are met Description: Assess and monitor ability to perform self care and identify potential discharge needs. Outcome: Progressing Problem: Reduced risk for falls/injury Goal: Reduced Risk of Dizziness/Vertigo/Balance Outcome: Progressing Goal: Reduced Risk of Polypharmacy Outcome: Progressing Problem: Discharge Planning Goal: Knowledge of discharge plan Outcome: Progressing Problem: Activity Intolerance Goal: Improved activity tolerance Outcome: Progressing Goal: Able to participate in acute rehabilitation Outcome: Progressing Goal: Able to perform prescribed physical activity Outcome: Progressing Problem: Pain - Acute Goal: Achieve acceptable pain level Outcome: Progressing Problem: Tissue Perfusion - Cardiopulmonary, Altered Goal: Absence of chest pain Outcome: Progressing Problem: Venous Thromboembolism - Risk of Goal: Absence of venous thromboembolism Outcome: Progressing Problem: Discharge Planning Goal: Knowledge of discharge instructions Outcome: Progressing Problem: Cardiac Output - Decreased Goal: Cardiac output within specified parameters Outcome: Progressing Problem: Fluid Volume - Excess Goal: Absence of fluid overload signs and symptoms Outcome: Progressing Goal: Electrolytes within specified parameters Outcome: Progressing Problem: Gas Exchange - Impaired Goal: Adequate oxygenation Outcome: Progressing Problem: Reduced risk for falls/injury Goal: Reduced Risk for Falls/Injury Outcome: Progressing Goal: Reduced Risk of Confusion (Acute vs Chronic) Outcome: Progressing Goal: Reduced Risk of Symptomatic Depression Outcome: Progressing Goal: Reduced Risk of Altered Elimination Outcome: Progressing Goal: Reduced Risk of Dizziness/Vertigo/Balance Outcome: Progressing Goal: Reduced Risk of Polypharmacy Outcome: Progressing Problem: Pain Goal: Patient's pain/discomfort is manageable Description: Assess and monitor patient's pain using appropriate pain scale. Collaborate with interdisciplinary team and initiate plan and interventions as ordered. Re-assess patient's pain level 30 - 60 minutes after pain management intervention. Outcome: Progressing Problem: Safety Goal: Patient will be injury free during hospitalization Description: Assess and monitor vitals signs, neurological status including level of consciousness and orientation. Assess patient's risk for falls and implement fall prevention plan of care and interventions per hospital policy. Ensure arm band on, uncluttered walking paths in room, adequate room lighting, call light and overbed table within reach, bed in low position, wheels locked, side rails up per policy, and non-skid footwear provided. Outcome: Progressing Problem: Daily Care Goal: Daily care needs are met Description: Assess and monitor ability to perform self care and identify potential discharge needs. Outcome: Progressing Problem: Psychosocial Needs Goal: Demonstrates ability to cope with hospitalization/illness Description: Assess and monitor patients ability to cope with his/her illness. Outcome: Progressing Goal: Collaborate with patient/family/caregiver to identify patient specific goals for this hospitalization Outcome: Progressing Problem: Discharge Barriers Goal: Patient's discharge needs are met Description: Collaborate with interdisciplinary team and initiate plans and interventions as needed. Outcome: Progressing * Tenzin Orozco RN - 02/10/2024 6:20 PM CDT Problem: Fluid Volume - Imbalance Goal: Absence of imbalanced fluid volume signs and symptoms Outcome: Progressing Problem: Venous Thromboembolism - Risk of Goal: Absence of venous thromboembolism Outcome: Progressing Problem: Safety Goal: Patient will be injury free during hospitalization Description: Assess and monitor vitals signs, neurological status including level of consciousness and orientation. Assess patient's risk for falls and implement fall prevention plan of care and interventions per hospital policy. Ensure arm band on, uncluttered walking paths in room, adequate room lighting, call light and overbed table within reach, bed in low position, wheels locked, side rails up per policy, and non-skid footwear provided. Outcome: Progressing Problem: Daily Care Goal: Daily care needs are met Description: Assess and monitor ability to perform self care and identify potential discharge needs. Outcome: Progressing Problem: Reduced risk for falls/injury Goal: Reduced Risk of Dizziness/Vertigo/Balance Outcome: Progressing Goal: Reduced Risk of Polypharmacy Outcome: Progressing * Alfonzo Godinez MD - 02/10/2024 11:28 AM CDT Medical Necessity Recommendation Patient Name: Hair Sargent Admit Date:02/07/2024 Age/Gender: 68-year-old/female Attending Physician: Vianey Yang DO Physician Advisor: ALFONZO GODINEZ MD Current admit order: Observation Type of review: SLR Recommendation Summary 02/10/2024 : inpatient Recommendations for 02/10/2024 ?? Supporting Clinical Factors: See rationale ?? The Attending Physician Concern: 68 yo with acute chf exarcerbation ?? Rationale: ??? Pt with acute CHF exarc and Tachypnea??that persists despite observation care ( RR more than 18) ??? Pt failed OP up titration of oral lasix ??? Creat slowly increasing daily with diuresis ?? Plan of Care Includes: Iv lasix 4 bid Echo Doppler Cardio consult Monitor labs * Sylvia Ventura RN - 02/10/2024 11:09 AM CDT 02/10/24 1105 Referral Data Source of Information Patient Patient Information Primary Caregiver Self Current living Situation Family members Type of Residence Private residence Support System Immediate family Are you employed? Not Employed Baseline ADL's Functional Status Independent Behavior Oriented;Cooperative Communication Talks;Understands speaking;Understands Latvian DC screening tool This is a screening tool it does not take the place of a physical or occupational therapy evaluation. The screening is to screen the patient for what services and destination would be beneficial for patient for next level of care Conversation with the patient/family Will the patient be returning to prior living situation with no new identified needs? Yes Based on the screening the DC plan for consideration is: Patient expects to be discharged to: Home or Self care no new needs NCM performed bedside interview: spoke with patient, verified and address Support: family Home: lives with mentally handicapped sister, plans to return home after discharge, various other family members are caring for sister while patient is hospitalized Ambulation: Independent prior to admission DME products: none Medical Devices: none ADLs: Independent prior to admission. Transport Home: family Skin/Bladder/Bowel: No deficits A/O: A&O x4 Communication: No deficits Home Health: none Occupation: none Pharmacy: [facility] Concerns: none PCP/Insurance [facility] Discharge needs: Care Coordination Team will provide discharge planning as needed, and will re-evaluate based on recommendations and treatment course. * Carlos Farris MD - 02/10/2024 8:36 AM CDT Images from the original note were not included. [place], [place] [address] Cardiology Consult PCP: Sami Liriano, Cardiac Problem List HTN HF HLD Former Smoker Interval History This morning she says she is doing very well. Her edema has improved. Shortness of breath has improved. Labs pending. Weight 242 lbs. History Ms. Hair Sargent is a 68-year-old female. Patient was seen in clinic for initial [...] the ER for admission for HF exacerbation. Past Medical History: Diagnosis Date Anxiety disorder, unspecified Arthritis Arthritis of left knee 11/08/2019 Depression Diabetes mellitus ([facility]/HCC HHS/HCC) GERD (gastroesophageal reflux disease) Hypertension Overactive bladder Positive colorectal cancer screening using Cologuard test 04/19/2020 Added automatically from request for surgery [id number] Past Surgical History: Procedure Laterality Date ANKLE SURGERY left SECTION COLONOSCOPY N/A 04/27/2020 COLONOSCOPY WITH BIOPSY X 3 performed by Joel Keenan MD at [facility] OR COLONOSCOPY N/A 11/20/2023 Colonoscopy with Polypectomies performed by Joel Keenan MD at [facility] OR EGD EYE SURGERY FRACTURE SURGERY HERNIA REPAIR HYSTERECTOMY JOINT REPLACEMENT SHOULDER SURG PROC UNLISTED right TONSILLECTOMY TOTAL KNEE ARTHROPLASTY right Social History Tobacco Use Smoking status: Former Current packs/day: 0.00 Average packs/day: 0.5 packs/day for 12.0 years (6.0 ttl pk-yrs) Types: Cigarettes Start date: 09/30/1964 Quit date: 09/30/1976 Years since quittin.3 Passive exposure: Never Smokeless tobacco: Never Vaping [...] [facility] Sister Myah Sargent atorvastatin 10 mg Oral Daily carvedilol 3.125 mg Oral BID escitalopram 20 mg Oral Daily furosemide 40 mg Intravenous BID heparin (porcine) 5,000 Units Subcutaneous 2 times per day hydrocortisone Topical BID insulin lispro 0-14 Units Subcutaneous TID AC And insulin lispro 0-7 Units Subcutaneous Nightly at bedtime levoFLOXacin 500 mg Oral Daily lisinopril 20 mg Oral Daily magnesium oxide 400 mg Oral BID potassium chloride CR 10 mEq Oral Daily acetaminophen, dextrose 10 % bolus, diphenhydrAMINE, docusate sodium, glucagon, glucose, HYDROmorphone, ipratropium-albuterol, naLOXone, ondansetron, polyethylene glycol, tiZANidine, traMADol Prior to Admission medications Medication Sig Start Date End Date Taking? Authorizing Provider amLODIPine (NORVASC) 5 MG tablet TAKE 1 TABLET(5 MG) BY MOUTH DAILY 12/12/23 Yes JENNIFER Davila atorvastatin (LIPITOR) 10 MG tablet take 1 tablet by mouth every day at night Patient taking differently: Take 1 tablet (10 mg total) by mouth daily. 10/21/23 Yes Sami Liriano DO escitalopram (LEXAPRO) 20 MG tablet TAKE 1 TABLET BY MOUTH EVERY DAY Patient taking differently: Take 1 tablet (20 mg total) by mouth daily. 08/28/23 Yes Sami Liriano DO furosemide (LASIX) 40 MG tablet Take 2 tabs in the AM and 1 tab in the PM Patient taking differently: Take 1-2 tablets (40-80 mg total) by mouth 3 (three) times daily. Takes80 mg by mouth in the morning, 80 mg by mouth in the afternoon, and 40 mg by mouth in the evening. 02/03/24 Yes Sami Liriano DO hydroCHLOROthiazide (HYDRODIURIL) 25 MG tablet take 1 tablet by mouth every day in the morning Patient taking differently: Take 1 tablet (25 mg total) by mouth every morning. 10/21/23 Yes Margarita Liriano DO magnesium oxide (MAG-OX) 400 (240 Mg) MG tablet Take 1 tablet (400 mg total) by mouth 2 (two) timesdaily. Yes Default History Genericprovider metFORMIN ER (GLUCOPHAGE-XR) 500 MG 24 hr tablet take 1 tablet by mouth every day with breakfast 01/28/24 Yes Sami Liriano DO potassium chloride CR (K-TAB) 10 MEQ Tab CR tablet TAKE ONE TABLET DAILY Patient must be seen for further refills Patient taking differently: Take 1 tablet (10 mEq total) by mouth daily. 09/25/22 Yes Sami Liriano DO acetaminophen 325 MG tablet Take 2 tablets (650 mg total) by mouth every 6 (six) hours as needed for Pain. Doc Prevea Abstract albuterol (PROVENTIL) (2.5 MG/3ML) 0.083% nebulizer solution Take 3 mLs (2.5 mg total) by nebulization every 6 (six) hours as needed for Wheezing. Patient not taking: Reported on 02/07/2024 12/06/23 Sami Liriano DO albuterol sulfate HFA 108 (90 Base) MCG/ACT inhaler Inhale 2 puffs into the lungs every 4 (four) hours as needed for Wheezing or Shortness of breath. Patient not taking: Reported on 02/07/2024 07/26/23 Sami Liriano DO Ifawgpj-Tqkgbyatfhd-Ncatlaqhof (BREZTRI AEROSPHERE) 160-9-4.8 MCG/ACT Aerosol Inhale 2 Inhalations into the lungs 2 (two) times a day. Patient not taking: Reported on 02/07/2024 12/12/23 JENNIFER Davila ipratropium-albuterol (DUONEB) 0.5-2.5 (3) MG/3ML Solution Take 3 mLs by nebulization. Patient not taking: Reported on 02/07/2024 12/06/23 Default History Genericprovider NEBULIZER DEVICE, DME, Take 1 Device by nebulization every 6 (six) hours as needed. 11/18/23 Margarita Liriano DO NEBULIZER/TUBING/MOUTHPIECE KIT, DME, 1 kit by Other route every 6 (six) hours as needed. 11/18/23 Sami Liriano DO tiZANidine (ZANAFLEX) 2 MG tablet TAKE 1 TABLET(2 MG) BY MOUTH EVERY 6 HOURS NEEDED Patient taking differently: Take 1 tablet (2 mg total) by mouth every 6 (six) hours as needed (spasms). 01/21/24 Sami Liriano DO traMADol (ULTRAM) 50 MG tablet Take 1 tablet (50 mg total) by mouth every 6 (six) hours as needed for Pain. Indications: Chronic Pain 07/03/22 Sami Liriano DO Review of patient's allergies indicates: Allergen Reactions Chocolate Hives Penicillins Rash Sulfa Antibiotics Rash Review of Systems: A 14 point ROS was completed and was negative except as per HPI. Physical Exam Filed Vitals: 02/09/24 1547 02/09/24202802/09/24 2300 02/10/24 0421 BP: 127/54 (!) 104/35 132/53 (!) 148/84 Pulse: 76 71 67 88 Resp: 20 16 18 18 Temp: 97.9 ??F (36.6 ??C) 98 ??F (36.7 ??C) 97.8 ??F (36.6 ??C) 98 ??F (36.7 ??C) TempSrc: Oral Oral Oral Oral SpO2: 98% 100% 100% 99% Weight: 110 kg (242 lb 8.1 oz) Height: Body mass index is 47.36 kg/m??. Physical Exam: General: NAD, Appears Normal Stated Age HEENT: PEERL, EOMI, MMM NECK: No JVD CVS: RRR, no MRG Resp: CTAB ABD: Soft, NT, ND, +BS Ext: No CC ,Trace edema Neuro: Non Focal Psych: Normal Affect Diagnostic Data Lab Results Component Value Date/Time WBC 8.87 02/08/2024 09:57 AM HGB 13.0 02/08/2024 09:57 AM HCT 41.2 02/08/2024 09:57 AM PLT 249 02/08/2024 09:57 AM NA 138 02/09/2024 12:05 PM CL 102 02/09/2024 12:05 PM K 3.3 (L) 02/09/2024 12:05 PM GLU 122 (H) 02/09/2024 12:05 PM BUN 20 (H) 02/09/2024 12:05 PM CR 1.20 (H) 02/09/2024 12:05 PM CA 9.8 02/09/2024 12:05 PM MAGNESIUM 2.4 02/07/2024 06:01 PM AST 23 02/07/2024 03:26 PM ALT 25 02/07/2024 03:26 PM ALB 3.7 02/07/2024 03:26 PM Lab Results Component Value Date CHOL 164 [...] of tricuspid regurgitation. Stress Test RegSpect 2020: Stress conclusion: 1. Clinically negative. 2. Electrocardiographically negative treadmill test for ischemia. 3. Fair exercise capacity. 4. [place] Treadmill Score is not applicable, which indicates indeterminate risk. 5. Blood pressure response was normal. 6. Scintigraphic images to follow. 7. As patient complained of shortness of breath, treadmill speed was lowered , lexican injected. Then treadmill stopped due to dyspnea,weakness. Perfusion conclusion: 1. Good study quality. No motion correction was applied to images. Breast attenuation is noted. Prone imaging was performed. 2. Normal myocardial perfusion SPECT imaging. Stress images only . 3. Normal wall motion with an ejection fraction of 76%. 4. Stress test with myocardial perfusion imaging shows overall low risk for a cardiac event. Holter Left Heart Catherization Assessment/Plan HFpEF HLD HTN Former Smoker In regards to her HFpEF she is reaching euvolemia. Weight is down from 250 to 242 pounds. Echocardiogram this admission with EF 60 to 65%. She is currently on IV diuretics. Awaiting labs from today for medication titration. Likely can be transition to orals tomorrow. Will add Aldactone 12.5 mg oncedaily for goal- directed medical therapy In regards to her hyperlipidemia she will continue her atorvastatin. Regards to her hypertension she will start Aldactone 12.5 mg daily. She will continue lisinopril 20mg daily. We will go ahead and discontinue Coreg. Thank you for allowing me to participate in the care of this patient. Please reach out with any questions. Carlos Farris MD Portions of this note were dictated using [employer] speech recognition software. Occasional wrong wordor sound-alike substitutions may have occurred due to the inherent limitations of voice recognition software. Please read the chart carefully and recognize, using context, where the substitutions may have occurred. * Vianey Yang, - 02/10/2024 8:34 AM CDT Hospitalist Daily Progress Note Subjective No acute events overnight. Sitting up the chair. She is feeling a lot better. Breathing and leg swelling improving. Having worsening itching/redness to her left leg Objective Filed Vitals: 02/09/24 1547 02/09/24202802/09/24 2300 02/10/24 0421 BP: 127/54 (!) 104/35 132/53 (!) 148/84 Pulse: 76 71 67 88 Resp: 20 16 18 18 Temp: 97.9 ??F (36.6 ??C) 98 ??F (36.7 ??C) 97.8 ??F (36.6 ??C) 98 ??F (36.7 ??C) TempSrc: Oral Oral Oral Oral SpO2: 98% 100% 100% 99% Weight: 110 kg (242 lb 8.1 oz) Height: Intake/Output 24H Total: Intake/Output Summary (Last 24 hours) at 02/10/2024 0834 Last data filed at 02/10/2024 0248 Gross per 24 hour Intake 240 ml Output 1400 ml Net -1160 ml Physical Exam: General: No acute distress, breathing comfortably on room air. Eyes: Extraocular movements intact ENT: Neck supple, Septum is midline. Lungs: Diminished breath sounds Cardiovascular: Regular rate rhythm Abdomen: Soft, nondistended, Nontender Extremities: + lower extremity edema. Neurological: Alert, awake, oriented Skin: Macupapular rash bilateral lower extremities > left Medications atorvastatin 10 mg Oral Daily carvedilol 3.125 mg Oral BID escitalopram 20 mg Oral Daily furosemide 40 mg Intravenous BID heparin (porcine) 5,000 Units Subcutaneous 2 times per day hydrocortisone Topical BID insulin lispro 0-14 Units Subcutaneous TID AC And insulin lispro 0-7 Units Subcutaneous Nightly at bedtime levoFLOXacin 500 mg Oral Daily lisinopril 20 mg Oral Daily magnesium oxide 400 mg Oral BID potassium chloride CR 10 mEq Oral Daily acetaminophen, dextrose 10 % bolus, diphenhydrAMINE, docusate sodium, glucagon, glucose, HYDROmorphone, ipratropium-albuterol, naLOXone, ondansetron, polyethylene glycol, tiZANidine, traMADol Labs, Imaging, Other Studies Recent Labs Lab 02/07/24 1526 02/08/24 0957 WBC 10.71 8.87 RBC 4.33 4.82 HGB 11.7* 13.0 HCT 36.9* 41.2 MCV 85.2 85.5 MCH 27.0 27.0 MCHC 31.7* 31.6* PLT 239 249 RDW 14.1 14.2 MPV 9.8 10.0 PERNEU 62.6 58.7 PERLYM 26.3 30.9 PERMON 8.1 7.0 NEUC 6.71 5.21 LYMC 2.82 2.74 MONOC 0.87* 0.62 EOSC 0.20 0.20 BASOC 0.07 0.07 DTYPE AUTOMATED DIFFERENTIAL AUTOMATED DIFFERENTIAL Recent Labs Lab 02/07/24 1526 02/08/24 0957 02/09/24 1205 NA 139 138 138 K 3.3* 3.8 3.3* CL 106 104 102 CO2 29.9 28.2 29.2 AGAP 3.1* 5.8 6.8 BUN 25* 18 20* CR 1.14* 1.15* 1.20* BUNCREATININ 21.9 15.7 16.7 GLU 131* 158* 122* CA 9.4 9.6 9.8 TP 7.5 -- -- ALB 3.7 -- -- TBIL 0.9 -- -- ALKP 93 -- -- AST 23 -- -- ALT 25 -- -- No results for input(s): CHOL , TRI , HDL , LDL , HGBA1C , TSH in the last 168 hours. No results for input(s): APTT , INR , PTT in the last 168 hours. Recent Labs Lab 02/07/24 1526 02/07/24 1801 TROP 9 10 No results for input(s): LACTICACID , PROCT in the last 168 hours. No results for input(s): PH , PCO2 , PO2 , J4AEREHOWMYE , BICARBWB , BASEDEFICIT , BASEEXCESS in the last 168 hours. No results found for this or any previous visit. Imaging USE ECHOCARDIOGRAM W CON Result Date: 02/09/2024 Echocardiography Report Pat.Name: DAYAN HAIR L Pat.ID: [id number] St.Date: 02/08/2024 Refer.MD: WINTER CH H Exam Time: 12:54:00 PM Study Type:ECHO WITH CARDIAC DOPPLER COMP Height: 60 in Weight: 250 lb BSA: 2.05 m2 Age: 5 1955,68Y Sex: F BP: 140/63 HR: 77 bpm Sonogrphr: Karen Fisher [facility] Pat. Stat.:Inpatient Room: [facility] Reason for Study:CHF History / Clinical:Hypertension,GERD, Sleep Apnea, Renal Insufficiency, LE edma; PMH- Obese, HTN, xtob, CKD3, MOR-CPAP, Le edema- on diuretics, prior BLEV @ [facility] 03/07/20 negative Procedures: 2D, M-mode, Doppler, Color Flow, Definity was used to enhance endocardial definition. Race: W ++++++++++++++++++++++++++++++++++++ SUMMARY: ++++++++++++++++++++++++++++++++++++ Left ventricle is normal in size and systolic function Estimated EF of 60-65% Right ventricle is normal in size and systolic function Mild to moderate pulmonic regurgitation Unable to reliably quantitate pulmonary systolic pressure. ++++++++++++++++++++++++++++++++++++ FINDINGS: ++++++++++++++++++++++++++++++++++++ LV: The left ventricular size is normal. The left ventricular systolic function is normal. Estimated left ventricular ejection fraction is 60-65%. Mild concentric left ventricular hypertrophy. Left ventricular diastolic function is normal. WM:Wall motion appears normal in all segments. LVOT: The left ventricular outflow tract size is normal. RV: The right ventricular size is normal. Right ventricular systolic function is normal. IVS: No evidence of ventricular septal defect. LA: The left atrial volume is normal ( less than 34 ml/M2). RA: Right atrial size is normal. IAS: Atrial septum appears intact. MIGUEL: No evidence of pericardial effusion. Prominent pericardial fat pad visualized. AO: Normal aortic root. PA: Estimated right atrial pressure of 3 mmHg. Unable to reliably quantitate pulmonary systolic pressure. SVn: Systemic veinsare normal. AV: The aortic valve is trileaflet. No evidence of aortic valve stenosis. No evidence of aortic valve regurgitation. MV: Structurally normal mitral valve. Mild mitral regurgitation. No evidence of mitral stenosis. PV: No evidence of pulmonic valve stenosis. Mild to moderate pulmonic regurgitation. TV: Structurally normal tricuspid valve. A trace of tricuspid regurgitation. No evidenceof tricuspid valve stenosis. ++++++++++++++++++++++++++++++++++++ MEASUREMENTS: ++++++++++++++++++++ ++++++++++++++++ DOPPLER LVOT LVOTpkPG 4 mmHg LVOTmnPG 2 mmHg LVOTpkVel 106 cm/s (70-110)+ LVOT SV71 ml LVOT TVI 22.6 cm Pulmonary Veins PVnpkVeld 28.7 cm/s PVnVs/Vd 1.5 PVnpkVels 43.1 cm/s PVn A Dur 144 msec AV Forward Flow AV TVI 25.6 cm AV pkPG 7 mmHg AV pkVel 130 cm/s (100-170)+ Area (TVI) 2.77 cm2 (3-5)* AV mnPG 4 mmHg Area (Kurtis) 2.56 cm2 (3-5)* MV Forward Flow MV DeTm 225 msec MV pkE 70.2cm/s (60-130) MV E/A 0.7 MV pkA 94.3 cm/s PV Forward Flow PV pkVel 142 cm/s (60-90)+* PV AC 79 msecPV pkPG 8 mmHg PV Regurg Flow PV pkVel 107 cm/s TV Forward Flow TV pkE 35.6 cm/s Lat E' Lat e 8.49cm/s Lat E/E' Lat E/e 8.3 Med E' Med e 5.98 cm/s Med E/E' Med E/e 11.7 Aortic Valve Aortic Valve Ar1.35 Aortic Valve Ve 0.82 PV Antegrade Flow Acceleration Sl 1363 cm/s2 PV Regurgitant Flow Peak Gradient ( 5 mmHg Right Atrium Yang's Disk 20 Right Ventricle Right Ventricle 14.8 cm/s 2D Left Ventricle LVIDd 4.37 cm (3.6-5.2) LV ESV 22.7 ml LVIDs 2.65 cm (2.3-3.9) LV ESV 22.4 ml LngAxd 7.21 cmLVESV BP 22.8 ml LngAxd 7.17 cm LV EF 59.4 % LV EDV 55.9 ml LV EF 70 % LV EDV 74.5 ml LV EF BP 64.8 % LVEDV BP 64.7 ml LV SV 33.2 ml LngAxs 5.77 cm LV SV 52.2 ml LngAxs 5.96 cm LV SV BP 41.9 ml LVPW LVPWd 1.26 cm Right Ventricle RVIDd 3.33 cm (2.6-4.3) Right Ventricle 34.6 mm Right Ventricle 35.6mm Right and Left 0.762 Major [place] 64.5 mm Ventricular Septum IVSd 1.18 cm Left Atrium LA VOLBP 37.1 ml Aorta Ao Rtd 3.6 cm LVOT LVOT 2 cm LVOTArea 3.14 cm2 Ratios IVS LA Biplane LAVol I BP 18.1 ml/m2 RA Single Plane Right Atrium MO 16 mm Right Atrium Sy 41.3 ml Right Atrium Sy 48.6 mm Right Atrium Sy 20.1 ml/m2 Right Atrium Sy 15.8 cm2 MMODE Ratios LA/Ao 1.14 (0.87-1.1)* Left Atrium LAIDs 4.1 cm TA Tricuspid Annul 21.9 mm <Electronic Signature> 02/09/2024 10:47 AM Ismael Lincoln M.D. USV COLETTE DUPLEX LOW EXT HAN Result Date: 02/08/2024 VENOUS DUPLEX IMAGING BILATERAL LOWER EXTREMITY VASCULAR LAB Pat.Name: HAIR SARGENT Pat.ID: [id number] St.Date: 02/08/2024 Refer.: [id number], Colten wing Exam Time: 6:02:00 PM Study Type:KATIE VS Venous Duplex Legs HAN Height: 60 in Age: 5 1955,68Y Sex: F Sonogrphr: Moo Briceno RVT Pat. Stat.:Inpatient History / Clinical:Evaluate for DVT. Hypertension, GERD, Sleep Apnea,Renal Insufficiency Procedures: Horan scale, Color Doppler imaging, Doppler Spectral Analysis Race: W ++++++++++++++++++++++++++++++++++++ SUMMARY: ++++++++++++++++++++++++++++++++++++ Right leg: There are NO apparent, deep or superficial vein, ACUTE character venous filling defects visualized in the femoral, popliteal, deep calf or proximal saphenous veins. Resting venous flow is normal phasic proximally. No valve reflux with compression maneuvers is detected in the femoral and popliteal veins.Left leg: There are NO apparent, deep or superficial vein, ACUTE character venous filling defects visualized in the femoral, popliteal, deep calf or proximal saphenous veins. Resting venous flow is normal phasic proximally. No valve reflux with compression maneuvers is detected in the femoral and popliteal veins. CONCLUSION: Unsigned Gordo Rodriguez M.D. CTA CHEST PE PROTOCOL Result Date: 02/07/2024 EXAMINATION: CTA chest pulmonary embolism HISTORY: Shortness of breath. Lower extremity swelling. Concern for pulmonary embolus. COMPARISON: Chest x-ray 02/07/2024. TECHNIQUE: Axial CT images of the chest after the uneventful intravenous administration of 80 mL of Isovue-370 given through the right a ntecubital fossa. Sagittal and coronal reformatted image sets with thick section reformatted post processed 3-D/MIP images according to the pulmonary embolus protocol. A dose lowering technique was used for this procedure, which may include, but is not limited to, dose reduction technique, automated exposure control, the use of degenerative reconstruction, and ALARA/image gently techniques. FINDINGS: Vascular: The main pulmonary artery is normal caliber. There is slightly suboptimal opacification of the pulmonary arteries. No definite pulmonary thromboembolic disease is identified. No evidence of right heart strain. There is atherosclerotic vascular disease. The aorta is normal caliber. There are coronary artery calcifications. Chest: The heart size is borderline. No pericardial effusion.There is no mediastinal or hilar lymphadenopathy. There is a small sliding hiatal hernia. No axillary lymphadenopathy. No acute appearing extrathoracic soft tissue abnormalities. There is mild bilateral dependent atelectasis within the lungs. No evidence of pneumonia, pleural effusion, or pneumothorax. No visible acute pulmonary abnormalities. Upper abdomen: No visible acute findings within the partially imaged upper abdomen. There is a small splenule. Osseous: There are multilevel degenerativechanges within the spine. No acute osseous abnormalities are identified. IMPRESSION: 1. No evidence of pulmonary thromboembolic disease. 2. No acute findings. 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1955 Requested By: CASSANDRA HUBBARD Order Number: [id number] Reading MD: Kj Abel Measurements Intervals [place] Rate: 67 P: 73 HI: 202 QRS: 26 QRSD: 97 T: 65 QT: 428 QTc: 453 Interpretive Statements SINUS RHYTHM NONSPECIFIC T-WAVE ABNORMALITY Compared to ECG 02/07/2024 15:32:15 No significant changes Other ischemic changes, not STEMI Preliminary EKG Interpretation by Xochilt BROWN ECG 12 lead Result Date: 02/07/2024 [facility] [address] Test Date: 2024-02-07 [facility] Department: 41 Room: INHI Gender: Female 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: [id number] : 1955 Requested By: XOCHILT GEIGER Order Number: [id number] Reading MD: Kj Abel Measurements Intervals [place] Rate: 79 P: 75 HI: 193 QRS: 28 QRSD: 96 T: 56 QT: 398 QTc: 458 Interpretive Statements SINUS RHYTHM NONSPECIFIC T-WAVE ABNORMALITY Compared to ECG 01/28/2024 12:24:58 Ventricular premature complex(es) no longer present T- wave abnormality still present Other ischemic changes, not STEMI Preliminary EKG Interpretation by QUETA Callaway Electronically signed by Kj Fox 02-07-2024 16:37:15 CDT XR CHEST PORTABLE Result Date: 02/07/2024 EXAM: XR CHEST PORTABLE DATE: 02/07/2024 1531 hours Comparison 01/28/2024 INDICATION: Dyspnea TECHNIQUE: One view FINDINGS: Upper normal heart size. Normal pulmonary vessel size. The lungs are clear. No pleural effusion. Normal appearance of the bones. IMPRESSION: Borderline heart size and clear lungs. Referred By: Interpreted By: Florin Cobos MD, 02/07/2024 4:15 PM ECG 12 lead Result Date: 01/30/2024 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 Comparison: November 18, 2023 Technique: Upright AP view of the chest Findings: Heart size normal. Proximal airways unremarkable. No suspicious pulmonary lesion, pneumothorax, or pleural effusion. =====IMPRESSION:===== No acute findings.. Poor inspiration limits exam. Ordered By: NATALY ESPINOSA Interpreted By: [place], 01/28/2024 1:44 PM EKG: Results for orders placed or performed during the hospital encounter of 02/07/24 [address] 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1955 Requested By: CASSANDRA HUBBARD Order Number: [id number] Reading MD: Kj Abel Measurements Intervals [place] Rate: 67 P: 73 HI: 202 QRS: 26 QRSD: 97 T: 65 QT: 428 QTc: 453 Interpretive Statements SINUS RHYTHM NONSPECIFIC T-WAVE ABNORMALITY Compared to ECG 02/07/2024 15:32:15 No significant changes Other ischemic changes, not STEMI Preliminary EKG Interpretation by Xochilt Geiger PA Assessment & Plan CHF exacerbation proBNP 141 Had preserved EF in 2020 Repeat echo pending Worsening symptoms despite uptitrating outpatient Lasix IV Lasix 40 mg twice daily Telemetry Cardiology consulted Monitor weight/intake/output/labs Possible transition to PO lasix tomorrow Lower extremity swelling Suspect from CHF but cannot rule out DVT Dopplers pending Consider stopping amlodipine in case this is contributing to edema Lower extremity rash Appears somewhat eczematous/psoriatic in nature Topical hydrocortisone Might improve with diuresis and improved leg edema May need outpatient Derm workup Started on levaquin for possible cellulitis, will switch to keflex. Suspect dermatitis more so thaninfectious etiology Hypokalemia Replete and monitor BOONE versus CKD 3 Creatinine 1.14 Was 1.09-1.2 earlier this year Monitor with diuresis, trending up possible transition to PO lasix tomorrow Mild normocytic anemia Hb 11.7 Monitor Transfuse as needed to keep hemoglobin greater than 7 Type II NIDDM With dyslipidemia Hold metformin Continue statin SSI/hypoglycemic protocol Hypertension BP up to 194/85 in ER Monitor with diuresis Hold home HCTZ with IV lasix Amlodipine discontinued Lisinopril dose increased Coreg and spironolactone added Anxiety/depression No acute issues Resume home meds DVT prophylaxis: Heparin subq Code status: Full code VIANEY YANG DO 02/10/2024 8:34 AM * Jina Ayala RN - 02/10/2024 4:06 AM CDT Problem: Fluid Volume - Imbalance Goal: Absence of imbalanced fluid volume signs and symptoms Outcome: Progressing Problem: Venous Thromboembolism - Risk of Goal: Absence of venous thromboembolism Outcome: Progressing Problem: Safety Goal: Patient will be injury free during hospitalization Description: Assess and monitor vitals signs, neurological status including level of consciousness and orientation. Assess patient's risk for falls and implement fall prevention plan of care and interventions per hospital policy. Ensure arm band on, uncluttered walking paths in room, adequate room lighting, call light and overbed table within reach, bed in low position, wheels locked, side rails up per policy, and non-skid footwear provided. Outcome: Progressing Problem: Daily Care Goal: Daily care needs are met Description: Assess and monitor ability to perform self care and identify potential discharge needs. Outcome: Progressing Problem: Reduced risk for falls/injury Goal: Reduced Risk of Dizziness/Vertigo/Balance Outcome: Progressing Goal: Reduced Risk of Polypharmacy Outcome: Progressing * Fanny Gonzalez RN - 02/09/2024 4:53 PM CDT Problem: Fluid Volume - Imbalance Goal: Absence of imbalanced fluid volume signs and symptoms Outcome: Progressing Problem: Venous Thromboembolism - Risk of Goal: Absence of venous thromboembolism Outcome: Progressing Problem: Safety Goal: Patient will be injury free during hospitalization Description: Assess and monitor vitals signs, neurological status including level of consciousness and orientation. Assess patient's risk for falls and implement fall prevention plan of care and interventions per hospital policy. Ensure arm band on, uncluttered walking paths in room, adequate room lighting, call light and overbed table within reach, bed in low position, wheels locked, side rails up per policy, and non-skid footwear provided. Outcome: Progressing Problem: Safety Goal: Patient will be injury free during hospitalization Description: Assess and monitor vitals signs, neurological status including level of consciousness and orientation. Assess patient's risk for falls and implement fall prevention plan of care and interventions per hospital policy. Ensure arm band on, uncluttered walking paths in room, adequate room lighting, call light and overbed table within reach, bed in low position, wheels locked, side rails up per policy, and non-skid footwear provided. Outcome: Progressing Problem: Daily Care Goal: Daily care needs are met Description: Assess and monitor ability to perform self care and identify potential discharge needs. Outcome: Progressing Problem: Reduced risk for falls/injury Goal: Reduced Risk of Dizziness/Vertigo/Balance Outcome: Progressing Goal: Reduced Risk of Polypharmacy Outcome: Progressing * Sury Finch DO - 02/09/2024 2:51 PM CDT Hospitalist Daily Progress Note Subjective Feeling better today, getting diuressed. Objective Filed Vitals: 02/09/24 0028 02/09/24 0506 02/09/24 0826 02/09/24 1208 BP: 128/60 (!) 143/90 (!) 153/63 (!) 142/64 Pulse: 77 80 77 78 Resp: Temp: 98.2 ??F (36.8 ??C) 98.4 ??F (36.9 ??C) 98.1 ??F (36.7 ??C) 98.4 ??F (36.9 ??C) TempSrc: Oral Oral Oral Oral SpO2: 95% 98% 98% 94% Weight: 110.3 kg (243 lb 2.7 oz) Height: Physical Exam: -GENERAL: No acute distress, Well nourished -HEAD: Normocephalic, Atraumatic -EYES: Extraocular movements intact -LUNGS: Effort normal, Clear to auscultation bilaterally, No wheezes, No crackles, No ronchi -CVS: Regular rate and rhythm, S1 and S2 normal -ABDOMEN: Soft, Non tender, Non distended -EXT: No edema -NEURO: Awake, alert, oriented, No gross neuro deficits -SKIN: No significant rashes Intake/Output 24H Total: Intake/Output Summary (Last 24 hours) at 02/09/2024 1451 Last data filed at 02/09/2024 0500 Gross per 24 hour Intake 480 ml Output 2400 ml Net -1920 ml Medication atorvastatin 10 mg Oral Daily carvedilol 3.125 mg Oral BID escitalopram 20 mg Oral Daily furosemide 40 mg Intravenous BID heparin (porcine) 5,000 Units Subcutaneous 2 times per day hydrocortisone Topical BID insulin lispro 0-14 Units Subcutaneous TID AC And insulin lispro 0-7 Units Subcutaneous Nightly at bedtime levoFLOXacin 500 mg Oral Daily [START ON 02/10/2024] lisinopril 20 mg Oral Daily magnesium oxide 400 mg Oral BID potassium chloride CR 10 mEq Oral Daily PRN Meds: acetaminophen, dextrose 10 % bolus, diphenhydrAMINE, docusate sodium, glucagon, glucose, HYDROmorphone, ipratropium-albuterol, naLOXone, ondansetron, polyethylene glycol, tiZANidine, traMADol Labs: Recent Labs Lab 02/07/24 1526 02/08/24 0957 WBC 10.71 8.87 RBC 4.33 4.82 HGB 11.7* 13.0 HCT 36.9* 41.2 MCV 85.2 85.5 MCH 27.0 27.0 MCHC 31.7* 31.6* PLT 239 249 RDW 14.1 14.2 MPV 9.8 10.0 PERNEU 62.6 58.7 PERLYM 26.3 30.9 PERMON 8.1 7.0 NEUC 6.71 5.21 LYMC 2.82 2.74 MONOC 0.87* 0.62 EOSC 0.20 0.20 BASOC 0.07 0.07 DTYPE AUTOMATED DIFFERENTIAL AUTOMATED DIFFERENTIAL Recent Labs Lab 02/07/24 1526 02/08/24 0957 02/09/24 1205 NA 139 138 138 K 3.3* 3.8 3.3* CL 106 104 102 CO2 29.9 28.2 29.2 AGAP 3.1* 5.8 6.8 BUN 25* 18 20* CR 1.14* 1.15* 1.20* BUNCREATININ 21.9 15.7 16.7 GLU 131* 158* 122* CA 9.4 9.6 9.8 TP 7.5 -- -- ALB 3.7 -- -- TBIL 0.9 -- -- ALKP 93 -- -- AST 23 -- -- ALT 25 -- -- No results for input(s): CHOL , TRI , HDL , LDL , HGBA1C , TSH in the last 168 hours. No results for input(s): APTT , INR , PTT in the last 168 hours. Recent Labs Lab 02/07/24 1526 02/07/24 1801 TROP 9 10 No results for input(s): LACTICACID , PROCT in the last 168 hours. No results for input(s): PH , PCO2 , PO2 , [id number] , BICARBWB , BASEDEFICIT , BASEEXCESS in the last 168 hours. No results found for this or any previous visit. X-Ray No results found. Assessment/Plan: CHF (congestive heart failure) ([facility]) CHF exacerbation proBNP 141 Had preserved EF in 2020 Repeat echo pending Worsening symptoms despite uptitrating outpatient Lasix IV Lasix 40 mg twice daily Telemetry Cardiology consult appreciated Monitor weight/intake/output/labs Lower extremity swelling Suspect from CHF but cannot rule out DVT Dopplers pending Consider stopping amlodipine in case this is contributing to edema Lower extremity rash Appears somewhat eczematous/psoriatic in nature Topical hydrocortisone Might improve with diuresis and improved leg edema Monitor May need outpatient Derm workup Hypokalemia K3.3 Replaced in ER Check mag Monitor Telemetry BOONE versus CKD 3 Creatinine 1.14 Was 1.09-1.2 earlier this year Monitor with diuresis Mild normocytic anemia Hb 11.7 Monitor Transfuse as needed to keep hemoglobin greater than 7 Type II NIDDM With dyslipidemia Hold metformin Continue statin SSI/hypoglycemic protocol Hypertension BP up to 194/85 in ER Monitor with diuresis Continue amlodipine for now-consider DC if lower extremity edema persists Hold home HCTZ with IV lasix Sury Finch DO 02/09/2024 2:51 PM * Koki Anaya PA-C - 02/09/2024 11:49 AM CDT Cardiology Progress Note Reason for follow up: CHF Primary Log Grader: Brenton Tele:SR 80s Assessment/Plan: SNOMED CT(R) 1. Shortness of breath DYSPNEA 2. Dependent edema DEPENDENT EDEMA 1. Acute HFpEF: Echo with normal LV systolic function. Good response to IV diuresis. Continue for now. Add Coreg for BP control. Increase lisinopril. 2. Essential hypertension: elevated today. Add Coreg today. Increase lisinopril 3. Cellulitis: Management per others Plan: -Start Coreg, increase lisinopril -Continue IV diuresis Subjective: Feeling better. Notes legs itch. Swelling improving. No CP. SOB improved. Review of Systems Constitutional: Negative for malaise/fatigue. Respiratory: Negative for cough, sputum production and shortness of breath. Cardiovascular: Positive for leg swelling. Negative for chest pain and palpitations. Skin: Positive for rash. Endo/Heme/Allergies: Does not bruise/bleed easily. atorvastatin 10 mg Oral Daily carvedilol 3.125 mg Oral BID escitalopram 20 mg Oral Daily furosemide 40 mg Intravenous BID heparin (porcine) 5,000 Units Subcutaneous 2 times per day hydrocortisone Topical BID insulin lispro 0-14 Units Subcutaneous TID AC And insulin lispro 0-7 Units Subcutaneous Nightly at bedtime levoFLOXacin 500 mg Oral Daily [START ON 02/10/2024] lisinopril 20 mg Oral Daily magnesium oxide 400 mg Oral BID potassium chloride CR 10 mEq Oral Daily acetaminophen, dextrose 10 % bolus, docusate sodium, glucagon, glucose, HYDROmorphone, ipratropium-albuterol, naLOXone, ondansetron, polyethylene glycol, tiZANidine, traMADol Allergies Allergen Reactions Chocolate Hives Penicillins Rash Sulfa Antibiotics Rash Objective: Blood pressure (!) 153/63, pulse 77, temperature 98.1 ??F (36.7 ??C), temperature source Oral, resp. rate 24, height 1.524 m (5'), weight 110.3 kg (243 lb 2.7 oz), SpO2 98%. Physical Exam Constitutional: General: She is not in acute distress. Appearance: She is well-developed. She is not diaphoretic. HENT: Head: Normocephalic and atraumatic. Eyes: Conjunctiva/sclera: Conjunctivae normal. Pupils: Pupils are equal, round, and reactive to light. Neck: Vascular: No JVD. Cardiovascular: Rate and Rhythm: Normal rate and regular rhythm. Heart sounds: Normal heart sounds. No murmur heard. No friction rub. No gallop. Pulmonary: Effort: Pulmonary effort is normal. No respiratory distress. Breath sounds: Normal breath sounds. No rales. Abdominal: General: There is no distension. Musculoskeletal: General: No tenderness. Cervical back: Normal range of motion and neck supple. Right lower leg: Edema present. Left lower leg: Edema present. Skin: General: Skin is warm and dry. Findings: Erythema and rash present. Neurological: Mental Status: She is alert and oriented to person, place, and time. Psychiatric: Behavior: Behavior normal. Labs: Recent Labs Lab 02/07/24 1526 02/08/24 0957 WBC 10.71 8.87 RBC 4.33 4.82 HGB 11.7* 13.0 HCT 36.9* 41.2 MCV 85.2 85.5 MCH 27.0 27.0 MCHC 31.7* 31.6* PLT 239 249 RDW 14.1 14.2 MPV 9.8 10.0 PERNEU 62.6 58.7 PERLYM 26.3 30.9 PERMON 8.1 7.0 NEUC 6.71 5.21 LYMC 2.82 2.74 MONOC 0.87* 0.62 EOSC 0.20 0.20 BASOC 0.07 0.07 DTYPE AUTOMATED DIFFERENTIAL AUTOMATED DIFFERENTIAL Recent Labs Lab 02/07/24 1526 02/08/24 0957 NA 139 138 K 3.3* 3.8 CL 106 104 CO2 29.9 28.2 AGAP 3.1* 5.8 BUN 25* 18 CR 1.14* 1.15* BUNCREATININ 21.9 15.7 GLU 131* 158* CA 9.4 9.6 TP 7.5 -- ALB 3.7 -- TBIL 0.9 -- ALKP 93 -- AST 23 -- ALT 25 -- No results for input(s): APTT , INR , PTT in the last 168 hours. Recent Labs Lab 02/07/24 1526 02/08/24 0957 NA 139 138 K 3.3* 3.8 CL 106 104 CO2 29.9 28.2 BUN 25* 18 CR 1.14* 1.15* CA 9.4 9.6 GLU 131* 158* AGAP 3.1* 5.8 TP 7.5 -- ALB 3.7 -- ALT 25 -- WBC 10.71 8.87 HGB 11.7* 13.0 PLT 239 249 Invalid input(s): TROPONIN No results found for this visit on 02/07/24 (from the past 8736 hour(s)). No results found for this visit on 02/07/24 (from the past 8736 hour(s)). 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 : 1955 Requested By: XOCHILT GEIGER Order Number: [id number] Reading MD: Kj Abel Measurements Intervals [place] Rate: 79 P: 75 HI: 193 QRS: 28 QRSD: 96 T: 56 QT: 398 QTc: 458 Interpretive Statements SINUS RHYTHM NONSPECIFIC T-WAVE ABNORMALITY Compared to ECG 01/28/2024 12:24:58 Ventricular premature complex(es) no longer present T-wave abnormality still present Other ischemic changes, not STEMI Preliminary EKG Interpretation by QUETA Callaway ECG 12 lead Narrative [place] [place] [address] [facility] Test Date: 2024-02-07 Pat Name: HAIR SAREGNT Department: 41 Room: [facility] Gender: Female 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1955 Requested By: CASSANDRA HUBBARD Order Number: [id number] Reading MD: Kj Abel Measurements Intervals [place] Rate: 67 P: 73 HI: 202 QRS: 26 QRSD: 97 T: 65 QT: 428 QTc: 453 Interpretive Statements SINUS RHYTHM NONSPECIFIC T-WAVE ABNORMALITY Compared to ECG 02/07/2024 15:32:15 No significant changes Other ischemic changes, not STEMI Preliminary EKG Interpretation by Xochilt BROWN I spent 35 minutes today reviewing the patient's medical record, obtaining history, performing an exam, ordering medications, tests, and/or procedures, documenting in the medical record, referring and/or communicating with other health care providers, counseling and educating the patient and family, reviewing and communicating test results, and coordinating care. KOKI ANAYA PA-C Cosigned by Amanda Nicholson MD at 02/15/2024 7:30 AM CDT * Jina Ayala RN - 02/09/2024 3:48 AM CDT Problem: Fluid Volume - Imbalance Goal: Absence of imbalanced fluid volume signs and symptoms Outcome: Progressing Problem: Venous Thromboembolism - Risk of Goal: Absence of venous thromboembolism Outcome: Progressing * Sury Finch DO - 02/08/2024 10:47 PM CDT Hospitalist Daily Progress Note Subjective Has some sob this morning Objective Filed Vitals: 02/08/24 0737 02/08/24 1122 02/08/24 1715 02/08/24 1927 BP: (!) 146/66 (!) 140/63 133/57 134/57 Pulse: 68 73 73 75 Resp: 18 18 20 18 Temp: 98 ??F (36.7 ??C) 97.9 ??F (36.6 ??C) 98.6 ??F (37 ??C) 98.1 ??F (36.7 ??C) TempSrc: Oral Oral Oral SpO2: 90% 91% 90% 95% Weight: Height: Physical Exam: -GENERAL: No acute distress, Well nourished -HEAD: Normocephalic, Atraumatic -EYES: Extraocular movements intact -LUNGS: Effort normal, Clear to auscultation bilaterally, No wheezes, No crackles, No ronchi -CVS: Regular rate and rhythm, S1 and S2 normal -ABDOMEN: Soft, Non tender, Non distended -EXT: No edema -NEURO: Awake, alert, oriented, No gross neuro deficits -SKIN: No significant rashes Intake/Output 24H Total: Intake/Output Summary (Last 24 hours) at 02/08/2024 2247 Last data filed at 02/08/2024 2200 Gross per 24 hour Intake 240 ml Output 4000 ml Net -3760 ml Medication atorvastatin 10 mg Oral Daily escitalopram 20 mg Oral Daily furosemide 40 mg Intravenous BID heparin (porcine) 5,000 Units Subcutaneous 2 times per day hydrocortisone Topical BID insulin lispro 0-14 Units Subcutaneous TID AC And insulin lispro 0-7 Units Subcutaneous Nightly at bedtime levoFLOXacin 500 mg Oral Daily [START ON 02/09/2024] lisinopril 10 mg Oral Daily magnesium oxide 400 mg Oral BID potassium chloride CR 10 mEq Oral Daily PRN Meds: acetaminophen, dextrose 10 % bolus, docusate sodium, glucagon, glucose, HYDROmorphone, ipratropium-albuterol, naLOXone, ondansetron, polyethylene glycol, tiZANidine, traMADol Labs: Recent Labs Lab 02/07/24 1526 02/08/24 0957 WBC 10.71 8.87 RBC 4.33 4.82 HGB 11.7* 13.0 HCT 36.9* 41.2 MCV 85.2 85.5 MCH 27.0 27.0 MCHC 31.7* 31.6* PLT 239 249 RDW 14.1 14.2 MPV 9.8 10.0 PERNEU 62.6 58.7 PERLYM 26.3 30.9 PERMON 8.1 7.0 NEUC 6.71 5.21 LYMC 2.82 2.74 MONOC 0.87* 0.62 EOSC 0.20 0.20 BASOC 0.07 0.07 DTYPE AUTOMATED DIFFERENTIAL AUTOMATED DIFFERENTIAL Recent Labs Lab 02/07/24 1526 02/08/24 0957 NA 139 138 K 3.3* 3.8 CL 106 104 CO2 29.9 28.2 AGAP 3.1* 5.8 BUN 25* 18 CR 1.14* 1.15* BUNCREATININ 21.9 15.7 GLU 131* 158* CA 9.4 9.6 TP 7.5 -- ALB 3.7 -- TBIL 0.9 -- ALKP 93 -- AST 23 -- ALT 25 -- No results for input(s): CHOL , TRI , HDL , LDL , HGBA1C , TSH in the last 168 hours. No results for input(s): APTT , INR , PTT in the last 168 hours. Recent Labs Lab 02/07/24 1526 02/07/24 1801 TROP 9 10 No results for input(s): LACTICACID , PROCT in the last 168 hours. No results for input(s): PH , PCO2 , PO2 , [id number] , BICARBWB , BASEDEFICIT , BASEEXCESS in the last 168 hours. No results found for this or any previous visit. X-Ray No results found. Assessment/Plan: CHF (congestive heart failure) ([facility]) CHF exacerbation proBNP 141 Had preserved EF in 2020 Repeat echo pending Worsening symptoms despite uptitrating outpatient Lasix IV Lasix 40 mg twice daily Telemetry Cardiology consult appreciated Monitor weight/intake/output/labs Lower extremity swelling Suspect from CHF but cannot rule out DVT Dopplers pending Consider stopping amlodipine in case this is contributing to edema Lower extremity rash Appears somewhat eczematous/psoriatic in nature Topical hydrocortisone Might improve with diuresis and improved leg edema Monitor May need outpatient Derm workup Hypokalemia K3.3 Replaced in ER Check mag Monitor Telemetry BOONE versus CKD 3 Creatinine 1.14 Was 1.09-1.2 earlier this year Monitor with diuresis Mild normocytic anemia Hb 11.7 Monitor Transfuse as needed to keep hemoglobin greater than 7 Type II NIDDM With dyslipidemia Hold metformin Continue statin SSI/hypoglycemic protocol Hypertension BP up to 194/85 in ER Monitor with diuresis Continue amlodipine for now-consider DC if lower extremity edema persists Hold home HCTZ with IV lasix Sury Finch DO 02/08/2024 10:47 PM * Lenny Wadsworth RN - 02/08/2024 6:01 PM CDT Problem: Fluid Volume - Imbalance Goal: Absence of imbalanced fluid volume signs and symptoms Outcome: Progressing Problem: Venous Thromboembolism - Risk of Goal: Absence of venous thromboembolism Outcome: Progressing * Amanda Nicholson MD - 02/08/2024 1:38 PM CDT Subjective Patient admitted for weight gain and fluid retention. States that with all of the IV Lasix she is getting she is still does not appear to be having any diuretic response. Not in any distress. Denies shortness of breath. Objective Filed Vitals: 02/07/24 2031 02/08/24 0036 02/08/24 0737 02/08/24 1122 BP: (!) 188/77 (!) 165/64 (!) 146/66 (!) 140/63 Pulse: 92 69 68 73 Resp: 18 18 18 18 Temp: 97.9 ??F (36.6 ??C) 98 ??F (36.7 ??C) 97.9 ??F (36.6 ??C) TempSrc: Oral Oral Oral SpO2: 90% 91% Weight: 113.6 kg (250 lb 7.1 oz) Height: 1.524 m (5') Review of Systems Constitutional: Negative for fever, malaise/fatigue and weight loss. Weight gain may be 10 to 15 pounds. Eyes: Negative for blurred vision. Respiratory: Negative for cough and shortness of breath. Cardiovascular: Positive for leg swelling. Negative for chest pain and claudication. Gastrointestinal: Negative for heartburn. Genitourinary: Negative for frequency. Musculoskeletal: Positive for back pain and myalgias. Negative for joint pain. Skin: Negative for rash. Neurological: Negative for dizziness and headaches. Endo/Heme/Allergies: Does not bruise/bleed easily. Psychiatric/Behavioral: Negative for depression. Physical Exam: Physical Exam Constitutional: General: She is not in acute distress. Appearance: She is obese. Cardiovascular: Rate and Rhythm: Normal rate and regular rhythm. Heart sounds: No murmur heard. No friction rub. Pulmonary: Effort: Pulmonary effort is normal. No respiratory distress. Breath sounds: Normal breath sounds. No wheezing. Abdominal: General: Bowel sounds are normal. There is distension. Musculoskeletal: Right lower leg: Edema present. Left lower leg: Edema present. Skin: General: Skin is warm and dry. Neurological: Mental Status: She is oriented to person, place, and time. Recent Labs Lab 02/07/24 1526 02/08/24 0957 WBC 10.71 8.87 RBC 4.33 4.82 HGB 11.7* 13.0 HCT 36.9* 41.2 MCV 85.2 85.5 MCH 27.0 27.0 MCHC 31.7* 31.6* PLT 239 249 RDW 14.1 14.2 MPV 9.8 10.0 PERNEU 62.6 58.7 PERLYM 26.3 30.9 PERMON 8.1 7.0 NEUC 6.71 5.21 LYMC 2.82 2.74 MONOC 0.87* 0.62 EOSC 0.20 0.20 BASOC 0.07 0.07 DTYPE AUTOMATED DIFFERENTIAL AUTOMATED DIFFERENTIAL Recent Labs Lab 02/07/24 1526 02/08/24 0957 NA 139 138 K 3.3* 3.8 CL 106 104 CO2 29.9 28.2 AGAP 3.1* 5.8 BUN 25* 18 CR 1.14* 1.15* BUNCREATININ 21.9 15.7 GLU 131* 158* CA 9.4 9.6 TP 7.5 -- ALB 3.7 -- TBIL 0.9 -- ALKP 93 -- AST 23 -- ALT 25 -- EKG: Sinus rhythm. Imaging: Chest x-ray is clear. Assessment 1. Fluid overload. Etiology is unclear. Likely diastolic dysfunction though echo not completed yet. Not responding very well to IV Lasix yet. Patient does have swelling in both legs and abdominal distention. Patient is on amlodipine . 2. Essential hypertension. On amlodipine. 3. Cellulitis. Left lower extremity is Retter and warmer than the both lower extremities appear quite warm. Patient is being started on treatment for cellulitis today. Plan Discontinue amlodipine. Add patient will be started on lisinopril. Continue with IV Lasix . Waiting on echocardiogram. Further management will depend on findings of her echocardiogram. AMANDA NICHOLSON MD * Chirsta Hodgson RN - 02/08/2024 2:50 AM CDT Problem: Fluid Volume - Imbalance Goal: Absence of imbalanced fluid volume signs and symptoms Outcome: Progressing Problem: Venous Thromboembolism - Risk of Goal: Absence of venous thromboembolism Outcome: Progressing documented in this encounter H&P Notes * Winter Ch MD - 02/07/2024 11:10 PM CDT ATTENDING: WINTER CH MD PRIMARY CARE PROVIDER: Sami Liriano DO CC: SOB, leg swelling HPI: Patient seen and evaluated by this provider. History obtained via chart review, discussion with ER physician, patient, and review of outside records from cardiology notes, previous labs etc. Hair Sargent is a 68-year-old female with past medical history of HFpEF, diabetes, hypertension, presents to the ER with shortness of breath and lower extremity edema. Patient was seen by her signal operator linguist today and directed to the ER. She has been taking 80 mg of Lasix in the morning, 80 mg inthe afternoon, and 40 mg at night recently but still has shortness of breath and edema and low urine output. She has had some left-sided chest pain near her breast that lasted 20 minutes. No other chest pain. No fevers, chills, nausea, vomiting, dizziness etc. She has lower extremity edema in both legs. She was given 20 mg IV Lasix in the ER and I was asked to admit her. O2 sats currently stable on room air. Allergy Review of patient's allergies indicates: Allergen Reactions Chocolate Hives Penicillins Rash Sulfa Antibiotics Rash Medication list (Not in a hospital admission) No current facility-administered medications on file prior to encounter. Current Outpatient Medications on File Prior to Encounter Medication Sig Dispense Refill amLODIPine (NORVASC) 5 MG tablet TAKE 1 TABLET(5 MG) BY MOUTH DAILY 90 tablet 0 atorvastatin (LIPITOR) 10 MG tablet take 1 tablet by mouth every day at night (Patient taking differently: Take 1 tablet (10 mg total) by mouth daily.) 90 tablet 0 escitalopram (LEXAPRO) 20 MG tablet TAKE 1 TABLET BY MOUTH EVERY DAY (Patient taking differently: Take 1 tablet (20 mg total) by mouth daily.) 90 tablet 1 furosemide (LASIX) 40 MG tablet Take 2 tabs in the AM and 1 tab in the PM (Patient taking differently: Take 1-2 tablets (40-80 mg total) by mouth 3 (three) times daily. Takes 80 mg by mouth in the morning, 80 mg by mouth in the afternoon, and 40 mg by mouth in the evening.) 90 tablet 2 hydroCHLOROthiazide (HYDRODIURIL) 25 MG tablet take 1 tablet by mouth every day in the morning (Patient taking differently: Take 1 tablet (25 mg total) by mouth every morning.) 90 tablet 0 magnesium oxide (MAG-OX) 400 [...] tablet (10 mEq total) by mouth daily.) 30 tablet 0 acetaminophen 325 MG tablet Take 2 tablets (650 mg total) by mouth every 6 (six) hours as needed for Pain. albuterol (PROVENTIL) (2.5 MG/3ML) 0.083% nebulizer solution Take 3 mLs (2.5 mg total) by nebulization every 6 (six) hours as needed for Wheezing. (Patient not taking: Reported on 02/07/2024) 360 mL 0 albuterol sulfate HFA 108 (90 Base) MCG/ACT inhaler Inhale 2 puffs into the lungs every 4 (four) hours as needed for Wheezing or Shortness of breath. (Patient not taking: Reported on 02/07/2024) 18 g 2 Polsbov-Tvfobbjsmyt-Fglqbxsmcq (BREZTRI AEROSPHERE) 160-9-4.8 MCG/ACT Aerosol Inhale 2 Inhalations into the lungs 2 (two) times a day. (Patient not taking: Reported on 02/07/2024) 10.7 g 2 ipratropium-albuterol (DUONEB) 0.5-2.5 (3) MG/3ML Solution Take 3 mLs by nebulization. (Patient nottaking: Reported on 02/07/2024) NEBULIZER DEVICE, DME, Take 1 Device by nebulization every 6 (six) hours as needed. 1 Device 0 NEBULIZER/TUBING/MOUTHPIECE KIT, DME, 1 kit by Other route every 6 (six) hours as needed. 1 kit 0 tiZANidine (ZANAFLEX) 2 MG tablet TAKE 1 TABLET(2 MG) BY MOUTH EVERY 6 HOURS NEEDED (Patient taking differently: Take 1 tablet (2 mg total) by mouth every 6 (six) hours as needed (spasms).) 20 tablet 0 traMADol (ULTRAM) 50 MG tablet Take 1 tablet (50 mg total) by mouth every 6 (six) hours as needed for Pain. Indications: Chronic Pain 60 tablet 0 Past Medical History Past Medical History: Diagnosis Date Anxiety disorder, unspecified Arthritis Arthritis of left knee 11/08/2019 Depression Diabetes mellitus ([facility]) GERD (gastroesophageal reflux disease) Hypertension Overactive bladder Positive colorectal cancer screening using Cologuard test 04/19/2020 Added automatically from request for surgery [id number] Past Surgical History: Procedure Laterality Date ANKLE SURGERY left SECTION COLONOSCOPY N/A 04/27/2020 COLONOSCOPY WITH BIOPSY X 3 performed by Joel Keenan MD at [facility] OR COLONOSCOPY N/A 11/20/2023 Colonoscopy with Polypectomies performed by Joel Keenan MD at [facility] OR EGD EYE SURGERY FRACTURE SURGERY HERNIA REPAIR HYSTERECTOMY JOINT REPLACEMENT SHOULDER SURG PROC UNLISTED right TONSILLECTOMY TOTAL KNEE ARTHROPLASTY right Social History Social History Socioeconomic History Marital status: Number of children: 2 Occupational History 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 Tobacco Use Smoking status: Former Current packs/day: 0.00 Average packs/day: 0.5 packs/day for 12.0 years (6.0 ttl pk-yrs) Types: Cigarettes Start date: 09/30/1964 Quit date: 09/30/1976 Years since quittin.3 Passive exposure: Never Smokeless tobacco: Never Vaping Use Vaping status: Never Used Substance and Sexual Activity Alcohol use: Not Currently Comment: 2 cocktails on some Sundays Drug use: Never Sexual activity: Not Currently Other Topics Concern Service No Blood Transfusions No Caffeine Concern Yes Comment: 2 cups Special Diet Yes Comment: low nithin and low carb Exercise No Family History Family History Problem Relation Name Age of [...] Crispin Sargent Mental Health Sister Myah Sargent ROS: A 10 point review of systems was taken and pertinent positives and negatives as per HPI. All othersnegative save as noted in HPI. PHYSICAL EXAM: No intake or output data in the 24 hours ending 02/08/24 0002 Patient Vitals for the past 24 hrs: BP Temp Temp src Pulse Resp SpO2 Height 02/07/24 2031 (!) 188/77 -- -- 92 18 -- -- 02/07/24 1446 (!) 194/85 -- -- -- -- -- -- 02/07/24 1443 -- 97.5 ??F (36.4 ??C) Temporal 96 18 100 % 1.524 m (5') Intake/Output :[id number]@ Constitutional: Obese. Mildly ill-appearing. Breathing comfortably on room air HENT: Normocephalic, Atraumatic, Bilateral external ears normal, Oropharynx moist, No oral exudates, Nose normal. Eyes: PERRL, EOMI, Conjunctiva normal, No discharge. Neck- Normal range of motion, No stridor. Respiratory: Faint bibasilar crackles but mostly clear. Nonlabored at rest cardiovascular: S1, S2 present, regular rate and rhythm. No murmurs, rubs, or gallops. 2+ pedal edema. GI: Bowel sounds normal, Soft, No tenderness or guarding, No masses, No pulsatile masses. Musculoskeletal: Intact distal pulses, 2+ edema, No tenderness, No cyanosis, No clubbing. Integument: Scaly maculopapular rash scattered on legs Neurologic: Alert & oriented x 3, Cranial nerves II-XII grossly intact. Normal motor function, Normal sensory function, No focal deficits noted. Psychiatric: Affect normal, Judgment normal, Mood normal Labs: Recent Labs Lab 02/07/24 1526 WBC 10.71 RBC 4.33 HGB 11.7* HCT 36.9* MCV 85.2 MCH 27.0 MCHC 31.7* PLT 239 RDW 14.1 MPV 9.8 PERNEU 62.6 PERLYM 26.3 PERMON 8.1 NEUC 6.71 LYMC 2.82 MONOC 0.87* EOSC 0.20 BASOC 0.07 DTYPE AUTOMATED DIFFERENTIAL Recent Labs Lab 02/07/24 1526 NA 139 K 3.3* CL 106 CO2 29.9 AGAP 3.1* BUN 25* CR 1.14* BUNCREATININ 21.9 GLU 131* CA 9.4 TP 7.5 ALB 3.7 TBIL 0.9 ALKP 93 AST 23 ALT 25 No results for input(s): CHOL , TRI , HDL , LDL , HGBA1C , TSH in the last 168 hours. No results for input(s): APTT , INR , PTT in the last 168 hours. Recent Labs Lab 02/07/24 1526 02/07/24 1801 TROP 9 10 No results for input(s): LACTICACID , PROCT in the last 168 hours. No results for input(s): PH , PCO2 , PO2 , [id number] , BICARBWB , BASEDEFICIT , BASEEXCESS in the last 168 hours. No results found for this or any previous visit. 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: [id number] : 1955 Requested By: XOCHILT GEIGER Order Number: [id number] Reading MD: Kj Abel Measurements Intervals [place] Rate: 79 P: 75 HI: 193 QRS: 28 QRSD: 96 T: 56 QT: 398 QTc: 458 Interpretive Statements SINUS RHYTHM NONSPECIFIC T-WAVE ABNORMALITY Compared to ECG 01/28/2024 12:24:58 Ventricular premature complex(es) no longer present T-wave abnormality still present Other ischemic changes, not STEMI Preliminary EKG Interpretation by QUETA Callaway ECG 12 lead Narrative [place] Test Date: 2024-02-07 Pat Name: HAIR SARGENT Department: 41 Room: [facility] Gender: Female 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1955 Requested By: CASSANDRA HUBBARD Order Number: [id number] Reading MD: Kj Abel Measurements Intervals [place] Rate: 67 P: 73 HI: 202 QRS: 26 QRSD: 97 T: 65 QT: 428 QTc: 453 Interpretive Statements SINUS RHYTHM NONSPECIFIC T-WAVE ABNORMALITY Compared to ECG 02/07/2024 15:32:15 No significant changes Other ischemic changes, not STEMI Preliminary EKG Interpretation by Xochilt Geiger PA CTA chest 02/07/2024 Vascular: The main pulmonary artery is normal caliber. There is slightly suboptimal opacification of the pulmonary arteries. No definite pulmonary thromboembolic disease is identified. No evidence of right heart strain. There is atherosclerotic vascular disease. The aorta is normal caliber. There are coronary artery calcifications. Chest: The heart size is borderline. No pericardial effusion. There is no mediastinal or hilar lymphadenopathy. There is a small sliding hiatal hernia. No axillary lymphadenopathy. No acute appearingextrathoracic soft tissue abnormalities. There is mild bilateral dependent atelectasis within the lungs. No evidence of pneumonia, pleural effusion, or pneumothorax. No visible acute pulmonary abnormalities. Upper abdomen: No visible acute findings within the partially imaged upper abdomen. There is a small splenule. Osseous: There are multilevel degenerative changes within the spine. No acute osseous abnormalitiesare identified. Impression: IMPRESSION: 1. No evidence of pulmonary thromboembolic disease. 2. No acute findings. CXR 02/07/2024 Borderline heart size and clear lungs. ~~~~ Echo 06/2021 The left ventricular size is normal. Estimated [...] pulmonic regurgitation. A trace of tricuspid regurgitation. Assessment & Plan Hair Sargent is a 68-year-old female with PMH of anxiety/depression, diabetes, hypertension, GERD, is being admitted for CHF exacerbation . I am concerned patient will clinically deteriorate without hospitalization and intervention as described below. I will admit to provide appropriate level of care and treatment to patient as well ascontinued evaluation. CHF exacerbation proBNP 141 Had preserved EF in 2020 Repeat echo pending Worsening symptoms despite uptitrating outpatient Lasix IV Lasix 40 mg twice daily Telemetry Cardiology consult appreciated Monitor weight/intake/output/labs Lower extremity swelling Suspect from CHF but cannot rule out DVT Dopplers pending Consider stopping amlodipine in case this is contributing to edema Lower extremity rash Appears somewhat eczematous/psoriatic in nature Topical hydrocortisone Might improve with diuresis and improved leg edema Monitor May need outpatient Derm workup Hypokalemia K3.3 Replaced in ER Check mag Monitor Telemetry BOONE versus CKD 3 Creatinine 1.14 Was 1.09-1.2 earlier this year Monitor with diuresis Mild normocytic anemia Hb 11.7 Monitor Transfuse as needed to keep hemoglobin greater than 7 Type II NIDDM With dyslipidemia Hold metformin Continue statin SSI/hypoglycemic protocol Hypertension BP up to 194/85 in ER Monitor with diuresis Continue amlodipine for now-consider DC if lower extremity edema persists Hold home HCTZ with IV lasix Anxiety/depression No acute issues Resume home meds - DVT prophylaxis: sc heparin - Diet : diabetic -IVF: none - CODE:full -POA: none, Sons are points of contact The above plan of care was discussed with the patient in detail. An opportunity was provided for the patient/MPoA to ask questions regarding the hospital stay and plan of care. All questions were answered. The patient/MPoA understands and agrees. The patient was informed to ask the RN to contact meif any further questions or concerns. I have seen and examined the patient independently and anticipate patient will require a less than 2 midnight stay for observation. This note was dictated with the use of [employer] dictation software and was proofread to the best of my ability. If you have questions or find errors, please contact me via clinical communications. Thank you. ADVANCED CARE PLAN 02/07/24: 16 minutes was spent in advanced care planning. Patient told me she does not want to be kept alive long-term on life support. However short-term if there is hope she would like to undergo CPR, defibrillation, short-term intubation etc. She voices concern that she would never want to be a burden to her family. Will keep full code for now. WINTER CH MD 02/08/2024 12:02 AM documented in this encounter ED Notes * Dillon Her MD,PHD - 02/07/2024 9:01 PM CDT EMERGENCY DEPARTMENT ENCOUNTER Chief Complaint Chief Complaint Patient presents with Shortness Of Breath Edema History of Present Illness 68-year-old female presenting to the emergency department with shortness of breath and lower extremity swelling. Patient has had shortness of breath for approximately 1 year after an illness from COVID. She intermittently since then has lower extremity edema and fluctuating weight. Her edema has been more constant for the last 3 weeks. The left leg is worse than the right. She saw her signal operator linguist in clinic today who recommended she come to the emergency department to beadmitted to the hospital. This is the patient's third emergency department visit for similar symptoms. 3 weeks ago she was evaluated at [facility] and states she had a CT of her chest at that time. She was evaluated little joan 2 weeks ago at [facility] in [place]. She reports relatively unremarkable evaluations of both of those visits. Physical Exam Filed Vitals: 02/07/24 1443 02/07/24 1446 02/07/242030 BP: (!) 194/85 (!) 188/77 Pulse: 96 92 Resp: 18 18 Temp: 97.5 ??F (36.4 ??C) TempSrc: Temporal SpO2: 100% Height: 1.524 m (5') CONSTITUTIONAL: Patient is awake, alert, in no acute distress, conversant HEAD AND FACE: Normocephalic, atraumatic EYES: Normal sclera, extraocular motions grossly normal NECK: Supple, no obvious asymmetry CARDIOVASCULAR: Regular rate and rhythm RESPIRATORY: No respiratory distress or tachypnea, no wheezing or crackles ABDOMEN: Soft, nontender, nondistended, NEUROLOGIC: GCS 15, CN2-12 grossly intact, moves all extremities EXTREMITIES: Warm, pitting edema, left greater than right Diagnostic Studies / Procedures ELECTROCARDIOGRAMS: EKG, TIME 1753 Rate 67, normal sinus rhythm, no ectopy, normal intervals, normal axis, no ST elevations Interpretation by me: no acute ischemic changes Rhythm strip interpreted by me: Rate 67, normal sinus rhythm, no ectopy LABORATORY STUDIES: Results for orders placed or performed during the hospital encounter of 02/07/24 CBC W/DIFF AUTOMATED Result Value Ref Range WBC 10.71 4.5 - 11.0 x10'3/uL RBC 4.33 4.20 - 5.40 x10'6/uL HGB 11.7 (L) 12.0 - 16.0 G/DL HCT 36.9 (L) 38.0 - 48.0 % MCV 85.2 81.0 - 99.0 FL MCH 27.0 27.0 - 31.0 PG MCHC 31.7 (L) 32.0 - 36.0 G/DL RDW 14.1 11.5 - 14.5 % PLT 239 130 - 400 x10'3/uL MPV 9.8 9.3 - 12.2 FL DIFFERENTIAL TYPE AUTOMATED DIFFERENTIAL NEUTROPHILS 62.6 % LYMPHOCYTES 26.3 % MONOCYTES 8.1 % EOSINOPHILS 1.9 % BASOPHILS 0.7 % IMMATURE GRANS 0.4 % ABS. NEUTROPHILS 6.71 1.80 - 7.70 x10'3/uL ABS. LYMPHOCYTES 2.82 1.00 - 4.80 x10'3/uL ABS. MONOCYTES 0.87 (H) 0.24 - 0.86 x10'3/uL ABS. EOSINOPHILS 0.20 0.04 - 0.36 x10'3/uL ABS. BASOPHILS 0.07 0.01 - 0.08 x10'3/uL ABS. IMMATURE GRANULOCYTES 0.04 0.00 - 0.49 x10'3/uL COMPREHENSIVE METABOLIC PANEL Result Value Ref Range GLUCOSE 131 (H) 70 - 99 MG/DL BUN 25 (H) 7 - 18 MG/DL CREATININE S/P/B 1.14 (H) 0.55 - 1.02 MG/DL SODIUM S/P/B 139 136 - 145 MMOL/L POTASSIUM S/P/B 3.3 (L) 3.5 - 5.1 MMOL/L CHLORIDE S/P/B 106 100 - 108 MMOL/L CO2 29.9 21 - 32 MMOL/L CALCIUM S/P/B 9.4 8.5 - 10.1 MG/DL BILIRUBIN TOTAL S/P/B 0.9 0.2 - 1.2 MG/DL TOTAL PROTEIN S/P/B 7.5 6.4 - 8.2 G/DL ALBUMIN S/P/B 3.7 3.4 - 5.0 G/DL AST 23 15 - 37 U/L ALT 25 14 - 55 U/L ALKALINE PHOSPHATASE S/P/B 93 50 - 136 U/L ANION GAP 3.1 (L) 5 - 15 MMOL/L BUN CREATININE RATIO 21.9 6 - 26 A/G RATIO 1.0 1.0 - 2.0 RATIO GFR ESTIMATE 52 (L) >90 ML/MIN/1.73 M2 TROPONIN, QUANT Result Value Ref Range TROPONIN I HIGH SENSITIVITY 9 <54 ng/L TROPONIN, QUANT Result Value Ref Range TROPONIN I HIGH SENSITIVITY 10 <54 ng/L PRO-BRAIN NATRIURETIC PEPTIDE Result Value Ref Range PRO-B TYPE NATRIURETIC PEPTIDE 141 (H) <125 PG/ML IMAGING STUDIES XR CHEST PORTABLE Final Result by User, [id number] (02/06 325) EXAM: XR CHEST PORTABLE DATE: 02/07/2024 1531 hours Comparison 01/28/2024 INDICATION: Dyspnea TECHNIQUE: One view FINDINGS: Upper normal heart size. Normal pulmonary vessel size. The lungs are clear. No pleural effusion. Normal appearance of the bones. IMPRESSION: Borderline heart size and clear lungs. Referred By: Interpreted By: Florin Cobos MD, 02/07/2024 4:15 PM CTA CHEST PE PROTOCOL (Results Pending) USV COLETTE DUPLEX LOW EXT HAN (Results Pending) ED Course / Medical Decision Making Patient presenting with a chief complaint of shortness of breath and lower extremity edema The patient has multiple chronic illnesses impacting their care and general health, including hypertension, type 2 diabetes mellitus I reviewed the patient's labs, which are significant for borderline renal dysfunction and mild hypokalemia and hyperglycemia on CMP. A BNP is borderline elevated at 141. 2 high-sensitivity opponent 2hours apart not elevated without significant delta. A CBC is notable for borderline normocytic anemia. I reviewed the radiologist's interpretation of the patient's radiologic diagnostics which is significant for borderline heart size and clear lungs. I have additionally ordered a CTA of the chest to evaluate for pulmonary embolism and a venous duplex of the bilateral lower extremities to evaluate for deep venous thrombosis. I independently reviewed the patient's EKG, my interpretation is above. I additionally interpreted the patient's rhythm strip, as above I interpreted the patient's pulse oximeter at rest, which is 100% on room air, which is normal and determined that this patient is not hypoxic I reviewed old medical records. Dr. Farris indicated that she would like the patient admitted. Medication management: Potassium chloride is administered orally and intravenously for repletion of mild hypokalemia Lasix is administered as recommended by the patient's signal operator linguist and her clinic note for diuresisin the setting of suspected CHF I discussed the patient with the admitting provider, discussing the emergency department managementof the patient deciding to and requesting admission Clinical Impression Shortness of breath (Primary) Dependent edema Disposition: Admission to hospitalist for further evaluation and treatment Dillon Her MD,PHD 02/07/242114 * Terra Penaloza RN - 02/07/2024 2:45 PM CDT Pt arrives to the ER from signal operator linguist office for increase sob and swelling to lower extremities. Pt states doctor states I'm in heart failure . Pt reports already on 200mg of lasix at home. Denies any pain documented in this encounter Plan of Treatment Upcoming Encounters Date Type Department Care Team (Late st Contact Info) Description 10/09/2024 9:30 AM CUT IN STATION OPERATOR Office Visit [facility] [phone] Carlos Farris MD [address] [place] [address] 11/02/2024 10:20 AM CUT IN STATION OPERATOR Office Visit [facility] - [address] [phone] [place] [address] [place] [address] [phone] documented as of this encounter Goals Goal Patient Goal Type Associated Problems Recent Progress Patient-Stated? Author Patient will return to prior living situation and remain independent in ADLs upon discharge from hospital Lifestyle No Sylvia Ventura RN documented as of this encounter Procedures Procedure Name Priority Date/Time Associated Diagnosis Comments POCT GLUCOSE - KATZ DOCKED DEVICE Routine 02/12/2024 11:45 AM CDT POCT GLUCOSE - KATZ DOCKED DEVICE Routine 02/12/2024 5:32 AM CDT BASIC METABOLIC PANEL Routine 02/12/2024 5:29 AM CDT CBC W/DIFF AUTOMATED Routine 02/12/2024 5:29 AM CDT POCT GLUCOSE - KATZ DOCKED DEVICE Routine 02/11/2024 7:54 PM CDT POCT GLUCOSE - KATZ DOCKED DEVICE Routine 02/11/2024 3:08 PM CDT POCT GLUCOSE - KATZ DOCKED DEVICE Routine 02/11/2024 11:43 AM CDT BASIC METABOLIC PANEL Routine 02/11/2024 6:46 AM CDT CBC W/DIFF AUTOMATED Routine 02/11/2024 6:46 AM CDT POCT GLUCOSE - KATZ DOCKED DEVICE Routine 02/11/2024 5:49 AM CDT POCT GLUCOSE - KATZ DOCKED DEVICE Routine 02/10/2024 7:28 PM CDT POCT GLUCOSE - KATZ DOCKED DEVICE Routine 02/10/2024 4:16 PM CDT POCT GLUCOSE - KATZ DOCKED DEVICE Routine 02/10/2024 11:16 AM CDT BASIC METABOLIC PANEL Routine 02/10/2024 10:01 AM CDT CBC W/DIFF AUTOMATED Routine 02/10/2024 10:01 AM CDT POCT GLUCOSE - KATZ DOCKED DEVICE Routine 02/10/2024 6:33 AM CDT POCT GLUCOSE - KATZ DOCKED DEVICE Routine 02/09/2024 7:20 PM CDT POCT GLUCOSE - KATZ DOCKED DEVICE Routine 02/09/2024 3:50 PM CDT POCT GLUCOSE - KATZ DOCKED DEVICE Routine 02/09/2024 12:05 PM CDT BASIC METABOLIC PANEL Routine 02/09/2024 12:05 PM CDT POCT GLUCOSE - KATZ DOCKED DEVICE Routine 02/09/2024 6:14 AM CDT USV COLETTE DUPLEX LOW EXT HAN STAT 02/08/2024 8:17 PM CDT POCT GLUCOSE - KATZ DOCKED DEVICE Routine 02/08/2024 7:39 PM CDT POCT GLUCOSE - KATZ DOCKED DEVICE Routine 02/08/2024 5:17 PM CDT USE ECHOCARDIOGRAM W CON Today 02/08/2024 1:37 PM CDT POCT GLUCOSE - KATZ DOCKED DEVICE Routine 02/08/2024 11:22 AM CDT BASIC METABOLIC PANEL Routine 02/08/2024 9:57 AM CDT CBC W/DIFF AUTOMATED Routine 02/08/2024 9:57 AM CDT POCT GLUCOSE - KATZ DOCKED DEVICE Routine 02/08/2024 5:46 AM CDT POCT GLUCOSE - KATZ DOCKED DEVICE Routine 02/08/2024 12:26 AM CDT CTA CHEST PE PROTOCOL STAT 02/07/2024 9:33 PM CDT TROPONIN, QUANT STAT 02/07/2024 6:01 PM CDT MAGNESIUM Routine 02/07/2024 6:01 PM CDT ECG 12-LEAD STAT 02/07/2024 5:53 PM CDT XR CHEST PORTABLE STAT 02/07/2024 4:0 4 PM CDT ECG 12-LEAD STAT 02/07/2024 3:32 PM CDT PRO-BRAIN NATRIURETIC PEPTIDE STAT 02/07/2024 3:26 PM CDT COMPREHENSIVE METABOLIC PANEL STAT 02/07/2024 3:26 PM CDT CBC W/DIFF AUTOMATED STAT 02/07/2024 3:26 PM CDT TROPONIN, QUANT STAT 02/07/2024 3:26 PM CDT documented in this encounter Results * (ABNORMAL) POCT glucose (02/12/2024 11:45 AM CDT) GLUCOSE POC 112(H) 70 - 99 mg/dL 02/12/2024 12:08 PM CDT [facility] 02/12/2024 11:4 5 AM CDT Vianey Yang DO POCT ORDERABLES - DEVICE Final Result Performing Organization Address City/[facility]/ZIP Co de Phone Number [facility] [address] [place] [address], [place] [phone] * (ABNORMAL) POCT glucose (02/12/2024 5:32 AM CDT) GLUCOSE POC 134(H) 70 - 99 mg/dL 02/12/2024 5:43 AM CDT [facility] 02/12/2024 5:32 AM CDT Vianey Yang DO POCT ORDERABLES - DEVICE Final Result Performing Organization Address [facility] [[email or web address]] Co de Phone Number [facility] [address] [place] [address], [place] [phone] * (ABNORMAL) CBC W/DIFF AUTOMATED (02/12/2024 5:29 AM CDT) WBC 9.61 4.5 - 11.0 x10'3/uL 02/12/2024 6:35 AM CDT [facility] RBC 4.55 4.20 - 5.40 x10'6/uL 02/12/2024 6:35 AM CDT [facility] HGB 12.2 12.0 - 16.0 G/DL 02/12/2024 6:35 AM CDT [facility] HCT 38.1 38.0 - 48.0 % 02/12/2024 6:35 AM CDT [facility] MCV 83.7 81.0 - 99.0 FL 02/12/2024 6:35 AM CDT [facility] MCH 26.8(L) 27.0 - 31.0 PG 02/12/2024 6:35 AM CDT [facility] MCHC 32.0 32.0 - 36.0 G/DL 02/12/2024 6:35 AM CDT [facility] RDW 14.6(H) 11.5 - 14.5 % 02/12/2024 6:35 AM CDT [facility] PLT 262 130 - 400 x10'3/uL 02/12/2024 6:35 AM CDT [facility] MPV 10.1 9.3 - 12.2 FL 02/12/2024 6:35 AM CDT [facility] DIFFERENTIAL TYPE AUTOMATED DIFFERENTIAL 02/12/2024 6:35 AM CDT [facility] NEUTROPHILS % 49.9 % 02/12/2024 6:35 AM T [facility] LYMPHOCYTES % 36.8 % 02/12/2024 6:35 AM T [facility] MONOCYTES % 8.1 % 02/12/2024 6:35 AM CDT [facility] EOSINOPHILS 4.1 % 02/12/2024 6:35 AM CDT [facility] BASOPHILS 0.8 % 02/12/2024 6:35 AM CDT [facility] IMMATURE GRANS % 0.3 % 02/12/20 6:35 AM CDT [facility] ABS. NEUTROPHILS 4.79 1.80 - 7.70 x10'3/uL 02/12/2024 6:35 AM CDT [facility] ABS. LYMPHOCYTES 3.54 1.00 - 4.80 x10'3/uL 02/12/2024 6:35 AM CDT [facility] ABS. MONOCYTES 0.78 0.24 - 0.86 x10'3/uL 02/12/2024 6:35 AM CDT [facility] ABS. EOSINOPHILS 0.39(H) 0.04 - 0.36 x10'3/uL 02/12/2024 6:35 AM CDT [facility] ABS. BASOPHILS 0.08 0.01 - 0.08 x10'3/uL 02/12/2024 6:35 AM CDT [facility] ABS. IMMATURE GRANULOCYTES 0.03 0.00 - 0.49 x10'3/uL 02/12/2024 6:35 AM CDT [facility] 02/12/2024 5:29 AM CDT us Vianey Yang DO LABORATORY Final Res ult [facility] [address] [place] [address], [place] [phone] * (ABNORMAL) BASIC METABOLIC PANEL (02/12/2024 5:29 AM CDT) GLUCOSE 126(H) 70 - 99 MG/DL 02/12/2024 6:42 AM CDT [facility] BUN 34(H) 7 - 18 MG/DL 02/12/2024 6:42 AM CDT [facility] [facility] CREATININE S/P/B 1.41(H) 0.55 - 1.02 MG/DL 02/12/2024 6:42 AM CDT [facility] SODIUM S/P/B 137 136 - 145 MMOL/L 02/12/2024 6:42 AM CDT [facility] POTASSIUM S/P/B 4.0 3.5 - 5.1 MMOL/L 02/12/2024 6:42 AM CDT [facility] CHLORIDE S/P/B 103 100 - 108 MMOL/L 02/12/2024 6:42 AM CDT [facility] CO2 27.4 21 - 32 MMOL/L 02/12/2024 6:42 AM CDT [facility] CALCIUM S/P/B 10.0 8.5 - 10.1 MG/DL 02/12/2024 6:42 AM CDT [facility] ANION GAP 6.6 5 - 15 MMOL/L 02/12/2024 6:42 AM CDT [facility] BUN CREATININE RATIO 24.1 6 - 26 02/12/2024 6:42 AM T [facility] GFR ESTIMATE 40(L) >90 ML/MIN/1.7 3 M2 02/12/2024 6:42 AM CDT [facility] Comment: NOTE: eGFR is not calculated for patients <18 years of age. This is an estimated GFR calculation using the new CKD EPI creatinine equation without race and so does not require a correction factor for race. This estimated GFR should not be used for calculating drug doses. 02/12/2024 5:29 AM CDT Vianey Yang DO LABORATORY Final Res ult [facility] [address] [place] [address], * (ABNORMAL) POCT glucose (02/11/2024 7:54 PM CDT) [facility] Signature GLUCOSE POC 124(H) 70 - 99 mg/dL 02/11/2024 8:20 PM CDT [facility] 02/11/2024 7:54 PM CDT us Vianey Yang DO POCT ORDERABLES - DEVICE Final Result Performing Organization Address City/[facility]/ZIP Co de Phone Number [facility] [address] [place] [address], [place] [phone] * (ABNORMAL) POCT glucose (02/11/2024 3:08 PM CDT) GLUCOSE POC 160(H) 70 - 99 mg/dL 02/11/2024 4:12 PM CDT [facility] 02/11/2024 3:08 PM CDT us Vianey Yang DO POCT ORDERABLES - DEVICE Final Result Performing Organization Address [facility] [[email or web address]] Co de Phone Number [facility] [address] [place] [address], [place] [phone] * (ABNORMAL) POCT glucose (02/11/2024 11:43 AM CDT) GLUCOSE POC 130(H) 70 - 99 mg/dL 02/11/2024 12:01 PM CDT [facility] 02/11/2024 11:4 3 AM CDT us Vianey Yang DO POCT ORDERABLES - DEVICE Final Result Performing Organization Address City/[facility]/ZIP Co de Phone Number [facility] [address] [place] [address], [place] [phone] * (ABNORMAL) CBC W/DIFF AUTOMATED (02/11/2024 6:46 AM CDT) WBC 8.91 4.5 - 11.0 x10'3/uL 02/11/2024 7:18 AM CDT [facility] RBC 4.22 4.20 - 5.40 x10'6/uL 02/11/2024 7:18 AM CDT [facility] HGB 11.5(L) 12.0 - 16.0 G/DL 02/11/2024 7:18 AM CDT [facility] HCT 35.9(L) 38.0 - 48.0 % 02/11/2024 7:18 AM CDT [facility] MCV 85.1 81.0 - 99.0 FL 02/11/2024 7:18 AM CDT [facility] MCH 27.3 27.0 - 31.0 PG 02/11/2024 7:18 AM CDT [facility] MCHC 32.0 32.0 - 36.0 G/DL 02/11/2024 7:18 AM CDT [facility] RDW 14.5 11.5 - 14.5 % 02/11/2024 7:18 AM CDT [facility] PLT 236 130 - 400 x10'3/uL 02/11/2024 7:18 AM CDT [facility] MPV 9.8 9.3 - 12.2 FL 02/11/2024 7:18 AM CDT [facility] DIFFERENTIAL TYPE AUTOMATED DIFFERENTIAL 02/11/2024 7:18 AM CDT [facility] NEUTROPHILS % 50.5 % 02/11/2024 7:18 AM CDT [facility] LYMPHOCYTES % 35.6 % 02/11/2024 7:18 AM CDT [facility] MONOCYTES % 10.0 % 02/11/2024 7:18 AM CDT [facility] EOSINOPHILS 3.1 % 02/11/2024 7:18 AM CDT [facility] BASOPHILS 0.6 % 02/11/2024 7:18 AM CDT [facility] IMMATURE GRANS % 0.2 % 02/11/20 7:18 AM CDT [facility] ABS. NEUTROPHILS 4.50 1.80 - 7.70 x10'3/uL 02/11/2024 7:18 AM CDT [facility] ABS. LYMPHOCYTES 3.17 1.00 - 4.80 x10'3/uL 02/11/2024 7:18 AM CDT [facility] ABS. MONOCYTES 0.89(H) 0.24 - 0.86 x10'3/uL 02/11/2024 7:18 AM CDT [facility] ABS. EOSINOPHILS 0.28 0.04 - 0.36 x10'3/uL 02/11/2024 7:18 AM CDT [facility] ABS. BASOPHILS 0.05 0.01 - 0.08 x10'3/uL 02/11/2024 7:18 AM CDT [facility] ABS. IMMATURE GRANULOCYTES 0.02 0.00 - 0.49 x10'3/uL 02/11/2024 7:18 AM CDT [facility] 02/11/2024 6:46 AM CDT us Vianey Yang DO LABORATORY Final Res ult [facility] [address] [place] [address], * (ABNORMAL) BASIC METABOLIC PANEL (02/11/2024 6:46 AM CDT) Pathologist [facility] GLUCOSE 122(H) 70 - 99 MG/DL 02/11/2024 7:33 AM CDT [facility] BUN 31(H) 7 - 18 MG/DL 02/11/2024 7:33 AM T [facility] CREATININE S/P/B 1.36(H) 0.55 - 1.02 MG/DL 02/11/2024 7:33 AM T [facility] SODIUM S/P/B 137 136 - 145 MMOL/L 02/11/2024 7:33 AM T [facility] POTASSIUM S/P/B 3.8 3.5 - 5.1 MMOL/L 02/11/2024 7:33 AM T [facility] CHLORIDE S/P/B 104 100 - 108 MMOL/L 02/11/2024 7:33 AM T [facility] CO2 27.5 21 - 32 MMOL/L 02/11/2024 7:33 AM [facility] CALCIUM S/P/B 9.6 8.5 - 10.1 MG/DL 02/11/2024 7:33 AM T [facility] ANION GAP 5.5 5 - 15 MMOL/L 02/11/2024 7:33 AM T [facility] BUN CREATININE RATIO 22.8 6 - 26 02/11/2024 7:33 AM T [facility] GFR ESTIMATE 42(L) >90 ML/MIN/1.7 3 M2 02/11/2024 7:33 AM T [facility] Comment: NOTE: eGFR is not calculated for patients <18 years of age. This is an estimated GFR calculation using the new CKD EPI creatinine equation without race and so does not require a correction factor for race. This estimated GFR should not be used for calculating drug doses. 02/11/2024 6:46 AM CDT Vianey Yang DO LABORATORY Final Res ult Performing Organization Address [facility] [[email or web address]] Co de Phone Number [facility] [address] [place] [address], [place] [phone] * (ABNORMAL) POCT glucose (02/11/2024 5:49 AM CDT) GLUCOSE POC 134(H) 70 - 99 mg/dL 02/11/2024 5:50 AM CDT [facility] 02/11/2024 5:49 AM CDT us Vianey Yang DO POCT ORDERABLES - DEVICE Final Result Performing Organization Address [facility] [[email or web address]] Co de Phone Number [facility] [address] [place] [address], [place] [phone] * (ABNORMAL) POCT glucose (02/10/2024 7:28 PM CDT) GLUCOSE POC 147(H) 70 - 99 mg/dL 02/10/2024 8:07 PM CDT [facility] 02/10/2024 7:28 PM CDT us Vianey Yang DO POCT ORDERABLES - DEVICE Final Result Performing Organization Address City/[facility] [[email or web address]] Co de Phone Number [facility] [address] [place] [address], [place] [phone] * (ABNORMAL) POCT glucose (02/10/2024 4:16 PM CDT) GLUCOSE POC 117(H) 70 - 99 mg/dL 02/10/2024 4:20 PM CDT [facility] 02/10/2024 4:16 PM CDT Vianey Yang DO POCT ORDERABLES - DEVICE Final Result Performing Organization Address City/[facility]/ZIP Co de Phone Number [facility] [address] [place] [address], [place] [phone] * POCT glucose (02/10/2024 11:16 AM CDT) GLUCOSE POC 98 70 - 99 mg/dL 02/10/2024 12:05 PM CDT [facility] 02/10/2024 11:1 6 AM CDT Vianey Yang DO POCT ORDERABLES - DEVICE Final Result Performing Organization Address [facility]/ZIP Co de Phone Number [facility] [address] [place] [address], [place] [phone] * (ABNORMAL) CBC W/DIFF AUTOMATED (02/10/2024 10:01 AM CDT) WBC 10.75 4.5 - 11.0 x10'3/uL 02/10/2024 10:10 AM CDT [facility] RBC 4.70 4.20 - 5.40 x10'6/uL 02/10/2024 10:10 AM CDT [facility] HGB 12.7 12.0 - 16.0 G/DL 02/10/2024 10:10 AM CDT [facility] HCT 40.9 38.0 - 48.0 % 02/10/2024 10:10 AM CDT [facility] MCV 87.0 81.0 - 99.0 FL 02/10/2024 10:10 AM CDT [facility] MCH 27.0 27.0 - 31.0 PG 02/10/2024 10:10 AM CDT [facility] MCHC 31.1(L) 32.0 - 36.0 G/DL 02/10/2024 10:10 AM CDT [facility] RDW 14.6(H) 11.5 - 14.5 % 02/10/2024 10:10 AM CDT [facility] PLT 266 130 - 400 x10'3/uL 02/10/2024 10:10 AM T [facility] MPV 9.9 9.3 - 12.2 FL 02/10/2024 10:10 AM T [facility] DIFFERENTIAL TYPE AUTOMATED DIFFERENTIAL 02/10/2024 10:10 AM T [facility] NEUTROPHILS % 56.8 % 02/10/2024 10:10 AM T [facility] LYMPHOCYTES % 31.5 % 02/10/2024 10:10 AM T [facility] MONOCYTES % 8.7 % 02/10/2024 10:10 AM T [facility] EOSINOPHILS 2.0 % 02/10/2024 10:10 AM T [facility] BASOPHILS 0.6 % 02/10/2024 10:10 AM T [facility] IMMATURE GRANS % 0.4 % 02/10/20 10:10 AM T [facility] ABS. NEUTROPHILS 6.11 1.80 - 7.70 x10'3/uL 02/10/2024 10:10 AM T [facility] ABS. LYMPHOCYTES 3.39 1.00 - 4.80 x10'3/uL 02/10/2024 10:10 AM T [facility] ABS. MONOCYTES 0.94(H) 0.24 - 0.86 x10'3/uL 02/10/2024 10:10 AM CDT [facility] ABS. EOSINOPHILS 0.21 0.04 - 0.36 x10'3/uL 02/10/2024 10:10 AM CDT [facility] ABS. BASOPHILS 0.06 0.01 - 0.08 x10'3/uL 02/10/2024 10:10 AM CDT [facility] ABS. IMMATURE GRANULOCYTES 0.04 0.00 - 0.49 x10'3/uL 02/10/2024 10:10 AM CDT [facility] 02/10/2024 10:0 1 AM CDT us Vianey Yang DO LABORATORY Final Res ult [facility] [address] [place] [address], * (ABNORMAL) BASIC METABOLIC PANEL (02/10/2024 10:01 AM CDT) GLUCOSE 133(H) 70 - 99 MG/DL 02/10/2024 10:37 AM CDT [facility] BUN 28(H) 7 - 18 MG/DL 02/10/2024 10:37 AM CDT [facility] CREATININE S/P/B 1.40(H) 0.55 - 1.02 MG/DL 02/10/2024 10:37 AM CDT [facility] SODIUM S/P/B 136 136 - 145 MMOL/L 02/10/2024 10:37 AM CDT [facility] POTASSIUM S/P/B 4.0 3.5 - 5.1 MMOL/L 02/10/2024 10:37 AM CDT [facility] CHLORIDE S/P/B 103 100 - 108 MMOL/L 02/10/2024 10:37 AM CDT [facility] CO2 26.3 21 - 32 MMOL/L 02/10/2024 10:37 AM CDT [facility] CALCIUM S/P/B 10.0 8.5 - 10.1 MG/DL 02/10/2024 10:37 AM CDT [facility] ANION GAP 6.7 5 - 15 MMOL/L 02/10/2024 10:37 AM CDT [facility] BUN CREATININE RATIO 20.0 6 - 26 02/10/2024 10:37 AM CDT [facility] GFR ESTIMATE 40(L) >90 ML/MIN/1.7 3 M2 02/10/2024 10:37 AM CDT [facility] Comment: NOTE: eGFR is not calculated for patients <18 years of age. This is an estimated GFR calculation using the new CKD EPI creatinine equation without race and so does not require a correction factor for race. This estimated GFR should not be used for calculating drug doses. 02/10/2024 10:0 1 AM CDT Vianey Yang DO LABORATORY Final Res ult [facility] [address] [place] [address], [place] [phone] * (ABNORMAL) POCT glucose (02/10/2024 6:33 AM CDT) [facility] Signature GLUCOSE POC 124(H) 70 - 99 mg/dL 02/10/2024 6:52 AM CDT [facility] 02/10/2024 6:33 AM CDT us Vianey Yang DO POCT ORDERABLES - DEVICE Final Result [facility] [address] [place] [address], * (ABNORMAL) POCT glucose (02/09/2024 7:20 PM CDT) GLUCOSE POC 148(H) 70 - 99 mg/dL 02/09/2024 7:23 PM CDT [facility] 02/09/2024 7:20 PM CDT Saulkat Finch DO POCT ORDERABLES - DEVICE Final R esult Performing Organization Address City/[facility]/ZIP Co de Phone Number [address] [address], * (ABNORMAL) POCT glucose (02/09/2024 3:50 PM CDT) GLUCOSE POC 102(H) 70 - 99 mg/dL 02/09/2024 4:26 PM CDT [facility] 02/09/2024 3:50 PM CDT Saulkat Finch DO POCT ORDERABLES - DEVICE Final R esult Performing Organization Address City/[facility]/ZIP Co de Phone Number [address] [address], [place] [phone] * (ABNORMAL) POCT glucose (02/09/2024 12:05 PM CDT) GLUCOSE POC 117(H) 70 - 99 mg/dL 02/09/2024 12:53 PM CDT [facility] 02/09/2024 12:0 5 PM CDT Saulkat Finch DO POCT ORDERABLES - DEVICE Final R esult [facility] [address] [place] [address], * (ABNORMAL) BASIC METABOLIC PANEL (02/09/2024 12:05 PM CDT) [facility] GLUCOSE 122(H) 70 - 99 MG/DL 02/09/2024 12:32 PM CDT [facility] BUN 20(H) 7 - 18 MG/DL 02/09/2024 12:32 PM CDT [facility] CREATININE S/P/B 1.20(H) 0.55 - 1.02 MG/DL 02/09/2024 12:32 PM CDT [facility] SODIUM S/P/B 138 136 - 145 MMOL/L 02/09/2024 12:32 PM CDT [facility] POTASSIUM S/P/B 3.3(L) 3.5 - 5.1 MMOL/L 02/09/2024 12:32 PM CDT [facility] CHLORIDE S/P/B 102 100 - 108 MMOL/L 02/09/2024 12:32 PM CDT [facility] CO2 29.2 21 - 32 MMOL/L 02/09/2024 12:32 PM CDT [facility] CALCIUM S/P/B 9.8 8.5 - 10.1 MG/DL 02/09/2024 12:32 PM CDT [facility] ANION GAP 6.8 5 - 15 MMOL/L 02/09/2024 12:32 PM CDT [facility] BUN CREATININE RATIO 16.7 6 - 26 02/09/2024 12:32 PM CDT [facility] GFR ESTIMATE 49(L) >90 ML/MIN/1.7 3 M2 02/09/2024 12:32 PM CDT [facility] Comment: NOTE: eGFR is not calculated for patients <18 years of age. This is an estimated GFR calculation using the new CKD EPI creatinine equation without race and so does not require a correction factor for race. This estimated GFR should not be used for calculating drug doses. 02/09/2024 12:0 5 PM CDT Koki Anaya PA-C LABORATORY Final Res ult Performing Organization Address [facility] de Phone Number [facility] [address] [place] [address], * (ABNORMAL) POCT glucose (02/09/2024 6:14 AM CDT) [facility] GLUCOSE POC 131(H) 70 - 99 mg/dL 02/09/2024 6:17 AM CDT [facility] 02/09/2024 6:14 AM CDT Sury Finch DO POCT ORDERABLES - DEVICE Final R esult Performing Organization Address [facility] de Phone Number [address] [address], * USV COLETTE DUPLEX LOW EXT HAN (02/08/2024 8:17 PM CDT) Anatomical Region Laterality Modality Extremity Vascular Ultraso und 02/08/2024 6:02 PM CDT Narrative 02/10/2024 8:36 PM CDT ?VENOUS DUPLEX IMAGING ?BILATERAL LOWER EXTREMITY ? VASCULAR LAB Pat.Name: ??HAIR SARGENT ?Pat.ID: ?[id number] ? St.Date: ?? 02/08/2024 ? Refer.MD: ??[id number], Colten wing Exam Time: 6:02:00 PM ? Study Type:KATIE VS Venous Duplex Legs HAN Height: ?60 in ?Age: ??1955,68Y ? Sex: ? F ? Sonogrphr: Moo Briceno RVT ?? Pat. Stat.:Inpatient ? History / Clinical:Evaluate for DVT. Hypertension, GERD, Sleep Apnea, Renal Insufficiency Procedures: Horan scale, Color Doppler imaging, Doppler Spectral Analysis Race: ?W ? ++++++++++++++++++++++++++++++++++++ SUMMARY: ++++++++++++++++++++++++++++++++++++ Right leg: ??There are NO apparent, deep or superficial vein, ACUTE character venous filling defects visualized in the femoral, popliteal, deep calf or proximal saphenous veins. Resting venous flow is normal phasic proximally. ??No valve reflux with compression maneuvers is detected in the femoral and popliteal veins. Left leg: ??There are NO apparent, deep or superficial vein, ACUTE character ??venous filling defects visualized in the femoral, popliteal, deep calf or proximal saphenous veins. ? Resting venous flow is normal phasic proximally. ??No valve reflux with compression maneuvers is detected in the femoral and popliteal veins. CONCLUSION: Normal study bilateral lower extremity, with no evidence of acute deep or superficial vein thrombosis. ?? There is no significant reflux detected. ? <Electronic Signature> 02/10/2024 08:36 PM Gordo Rodriguez M.D. Procedure Note Gordo Rodriguez MD - 02/10/2024 VENOUS DUPLEX IMAGING BILATERAL LOWER EXTREMITY VASCULAR LAB Pat.Name: HAIR SARGENT Pat.ID: [id number] .Date: 02/08/2024 Lian.: [id number], Colten wing Exam Time: 6:02:00 PM Study Type:KATIE VS Venous Duplex Legs HAN Height: 60 in Age: 5 1955,68Y Sex: F Sonogrphr: Moo Briceno RVT Pat. Stat.:Inpatient History / Clinical:Evaluate for DVT. Hypertension, GERD, Sleep Apnea, Renal Insufficiency Procedures: Horan scale, Color Doppler imaging, Doppler Spectral Analysis Race: W ++++++++++++++++++++++++++++++++++++ SUMMARY: ++++++++++++++++++++++++++++++++++++ Right leg: There are NO apparent, deep or superficial vein, ACUTE character venous filling defects visualized in the femoral, popliteal, deep calf or proximal saphenous veins. Resting venous flow is normal phasic proximally. No valve reflux with compression maneuvers is detected in the femoral and popliteal veins. Left leg: There are NO apparent, deep or superficial vein, ACUTE character venous filling defects visualized in the femoral, popliteal, deep calf or proximal saphenous veins. Resting venous flow is normal phasic proximally. No valve reflux with compression maneuvers is detected in the femoral and popliteal veins. CONCLUSION: Normal study bilateral lower extremity, with no evidence of acute deep or superficial vein thrombosis. There is no significant reflux detected. <Electronic Signature> 02/10/2024 08:36 PM Gordo Rodriguez M.D. Dillon Her MD,PHD VAS Final Resu lt * (ABNORMAL) POCT glucose (02/08/2024 7:39 PM CDT) GLUCOSE POC 142(H) 70 - 99 mg/dL 02/08/2024 7:41 PM CDT [facility] 02/08/2024 7:39 PM CDT [facility] POCT ORDERABLES - DEVICE Final R esult Performing Organization Address City/[facility] [[email or web address]] [place] [address], * (ABNORMAL) POCT glucose (02/08/2024 5:17 PM CDT) GLUCOSE POC 138(H) 70 - 99 mg/dL 02/08/2024 5:47 PM CDT [facility] 02/08/2024 5:17 PM CDT Saulkat Sanfordan DO POCT ORDERABLES - DEVICE Final R esult Performing Organization Address City/[facility] [[email or web address]] Co de Phone Number [address] [address], * USE ECHOCARDIOGRAM W CON (02/08/2024 1:37 PM CDT) Anatomical Region Laterality Modality NA Echocardiogram 02/08/2024 12:5 4 PM CDT Narrative 02/09/2024 10:47 AM CDT ?Echocardiography Report Pat.Name: ??HAIR SARGENT L ?Pat.ID: ?[id number] ? St.Date: ?? 02/08/2024 ? Refer.MD: ??WINTER CH H ? Exam Time: 12:54:00 PM ? Study Type:ECHO WITH CARDIAC DOPPLER COMP Height: ?60 in ? Weight: ?250 lb ? BSA: ? 2.05 m2 ?Age: ??1955,68Y ? Sex: ? F ? BP: ?140/63 ? HR: ?77 bpm ?Sonogrphr: Karen Fisher RDCS ?? Pat. Stat.:Inpatient ? Room: ?454 ? Reason for Study:CHF ? History / Clinical:Hypertension, GERD, Sleep Apnea, Renal Insufficiency, LE edma; PMH- Obese, HTN, xtob, CKD3, MOR-CPAP, Le edema- on diuretics, prior BLEV @ [facility] 03/07/20 negative Procedures: 2D, M-mode, Doppler, Color Flow, Definity was used to enhance endocardial definition. Race: ?W ? ++++++++++++++++++++++++++++++++++++ SUMMARY: ++++++++++++++++++++++++++++++++++++ Left ventricle is normal in size and systolic function Estimated EF of 60-65% Right ventricle is normal in size and systolic function Mild to moderate pulmonic regurgitation Unable to reliably quantitate pulmonary systolic pressure. ++++++++++++++++++++++++++++++++++++ FINDINGS: ++++++++++++++++++++++++++++++++++++ LV: ? The left ventricular size is normal. The left ventricular ?systolic function is normal. Estimated left ventricular ?ejection fraction is 60-65%. Mild concentric left ?ventricular hypertrophy. Left ventricular diastolic function ?is normal. WM: ? Wall motion appears normal in all segments. LVOT: ? The left ventricular outflow tract size is normal. RV: ? The right ventricular size is normal. Right ventricular ?systolic function is normal. IVS: ?No evidence of ventricular septal defect. LA: ? The left atrial volume is normal ( less than 34 ml/M2). RA: ? Right atrial size is normal. IAS: ?Atrial septum appears intact. MIGUEL: ? No evidence of pericardial effusion. Prominent pericardial ?fat pad visualized. AO: ? Normal aortic root. PA: ? Estimated right atrial pressure of 3 mmHg. Unable to ?reliably quantitate pulmonary systolic pressure. SVn: ?Systemic veins are normal. AV: ? The aortic valve is trileaflet. No evidence of aortic valve ?stenosis. No evidence of aortic valve regurgitation. MV: ? Structurally normal mitral valve. Mild mitral regurgitation. ?No evidence of mitral stenosis. PV: ? No evidence of pulmonic valve stenosis. Mild to moderate ?pulmonic regurgitation. TV: ? Structurally normal tricuspid valve. A trace of tricuspid ?regurgitation. No evidence of tricuspid valve stenosis. ++++++++++++++++++++++++++++++++++++ MEASUREMENTS: ++++++++++++++++++++++++++++++++++++ ?DOPPLER LVOT ?? LVOTpkPG ? 4 mmHg ?LVOTmnPG ? 2 mmHg LVOTpkVel ?106 cm/s (70-110)+ LVOT SV ? 71 ml ?? LVOT TVI ?22.6 cm ? Pulmonary Veins ?? PVnpkVeld ? 28.7 cm/s ?PVnVs/Vd ? 1.5 ? PVnpkVels ? 43.1 cm/s ?PVn A Dur ?144 msec AV Forward Flow AV TVI ?25.6 cm ?AV pkPG ?7 mmHg AV pkVel ? 130 cm/s (100-170)+ Area (TVI) ?2.77 cm2 ??(3-5)* AV mnPG ?4 mmHg ?Area (Kurtis) ?2.56 cm2 ??(3- 5)* MV Forward Flow MV DeTm ?225 msec ?MV pkE ?70.2 cm/s (60- 130) MV E/A ? 0.7 ? MV pkA ?94.3 cm/s PV Forward Flow PV pkVel ? 142 cm/s (60-90)+* PV AC ? 79 msec PV pkPG ?8 mmHg ? PV Regurg Flow PV pkVel ? 107 cm/s ? TV Forward Flow TV pkE ?35.6 cm/s ? Lat E' ?? Lat e ? 8.49 cm/s ? Lat E/E' ?? Lat E/e ?8.3 ? Med E' ?? Med e ? 5.98 cm/s ? Med E/E' ?? Med E/e ? 11.7 ? Aortic Valve ?? Aortic Valve Ar ??1.35 ?Aortic Valve Ve ??0.82 ? PV Antegrade Flow Acceleration Sl ??1363 cm/s2 ? PV Regurgitant Flow Peak Gradient ( ? 5 mmHg ? Right Atrium ?? Yang's Disk ? 20 ? Right Ventricle ?? Right Ventricle ??14.8 cm/s ?2D Left Ventricle ?? LVIDd ? 4.37 cm ?? (3.6-5.2) LV ESV ?22.7 ml ?? LVIDs ? 2.65 cm ?? (2.3-3.9) LV ESV ?22.4 ml ?? LngAxd ?7.21 cm ?LVESV BP ?22.8 ml ?? LngAxd ?7.17 cm ?LV EF ? 59.4 % ?? LV EDV ?55.9 ml ?LV EF ? 70 % ?? LV EDV ?74.5 ml ?LV EF BP ?64.8 % ?? LVEDV BP ?64.7 ml ?LV SV ? 33.2 ml ?? LngAxs ?5.77 cm ?LV SV ? 52.2 ml ?? LngAxs ?5.96 cm ?LV SV BP ?41.9 ml ?? LVPW ?? LVPWd ? 1.26 cm ? Right Ventricle ?? RVIDd ? 3.33 cm ?? (2.6-4.3) Right Ventricle ??34.6 mm ?? Right Ventricle ??35.6 mm ? Right and Left ??0.762 ? [place] ?64.5 mm ? Ventricular Septum ?? IVSd ?1.18 cm ? Left Atrium ?? LA VOLBP ?37.1 ml ? Aorta ?? Ao Rtd ? 3.6 cm ? LVOT ?? LVOT ? 2 cm ?LVOTArea ?3.14 cm2 Ratios ?? IVS LA Biplane LAVol I BP ?18.1 ml/m2 ? RA Single Plane Right Atrium MO ?16 mm ? Right Atrium Sy ??41.3 ml ?? Right Atrium Sy ??48.6 mm ? Right Atrium Sy ??20.1 ml/m2 Right Atrium Sy ??15.8 cm2 ?MMODE Ratios ?? LA/Ao ? 1.14 ?(0.87-1.1)* Left Atrium ?? LAIDs ?4.1 cm ? TA ?? Tricuspid Annul ??21.9 mm ? <Electronic Signature> 02/09/2024 10:47 AM Ismael Lincoln M.D. Procedure Note Ismael Lincoln MD - 02/09/2024 Echocardiography Report Pat.Name: HAIR SARGENT Pat.ID: [id number] .Date: 02/08/2024 Refer.MD: WINTER CH H Exam Time: 12:54:00 PM Study Type:ECHO WITH CARDIAC DOPPLER COMP Height: 60 in Weight: 250 lb BSA: 2.05 m2 Age: 5 1955,68Y Sex: F BP: 140/63 HR: 77 bpm Sonogrphr: Karen Fisher JEAN Pat. Stat.:Inpatient Room: [facility] Reason for Study:CHF History / Clinical:Hypertension, GERD, Sleep Apnea, Renal Insufficiency, LE edma; PMH- Obese, HTN, xtob, CKD3, MOR-CPAP, Le edema- on diuretics, prior BLEV @ [facility] 03/07/20 negative Procedures: 2D, M-mode, Doppler, Color Flow, Definity was used to enhance endocardial definition. Race: W ++++++++++++++++++++++++++++++++++++ SUMMARY: ++++++++++++++++++++++++++++++++++++ Left ventricle is normal in size and systolic function Estimated EF of 60-65% Right ventricle is normal in size and systolic function Mild to moderate pulmonic regurgitation Unable to reliably quantitate pulmonary systolic pressure. ++++++++++++++++++++++++++++++++++++ FINDINGS: ++++++++++++++++++++++++++++++++++++ LV: The left ventricular size is normal. The left ventricular systolic function is normal. Estimated left ventricular ejection fraction is 60-65%. Mild concentric left ventricular hypertrophy. Left ventricular diastolic function is normal. WM: Wall motion appears normal in all segments. LVOT: The left ventricular outflow tract size is normal. RV: The right ventricular size is normal. Right ventricular systolic function is normal. IVS: No evidence of ventricular septal defect. LA: The left atrial volume is normal ( less than 34 ml/M2). RA: Right atrial size is normal. IAS: Atrial septum appears intact. MIGUEL: No evidence of pericardial effusion. Prominent pericardial fat pad visualized. AO: Normal aortic root. PA: Estimated right atrial pressure of 3 mmHg. Unable to reliably quantitate pulmonary systolic pressure. SVn: Systemic veins are normal. AV: The aortic valve is trileaflet. No evidence of aortic valve stenosis. No evidence of aortic valve regurgitation. MV: Structurally normal mitral valve. Mild mitral regurgitation. No evidence of mitral stenosis. PV: No evidence of pulmonic valve stenosis. Mild to moderate pulmonic regurgitation. TV: Structurally normal tricuspid valve. A trace of tricuspid regurgitation. No evidence of tricuspid valve stenosis. ++++++++++++++++++++++++++++++++++++ MEASUREMENTS: ++++++++++++++++++++++++++++++++++++ DOPPLER LVOT LVOTpkPG 4 mmHg LVOTmnPG 2 mmHg LVOTpkVel 106 cm/s (70-110)+ LVOT SV 71 ml LVOT TVI 22.6 cm Pulmonary Veins PVnpkVeld 28.7 cm/s PVnVs/Vd 1.5 PVnpkVels 43.1 cm/s PVn A Dur 144 msec AV Forward Flow AV TVI 25.6 cm AV pkPG 7 mmHg AV pkVel 130 cm/s (100-170)+ Area (TVI) 2.77 cm2 (3-5)* AV mnPG 4 mmHg Area (Kurtis) 2.56 cm2 (3-5)* MV Forward Flow MV DeTm 225 msec MV pkE 70.2 cm/s (60-130) MV E/A 0.7 MV pkA 94.3 cm/s PV Forward Flow PV pkVel 142 cm/s (60-90)+* PV AC 79 msec PV pkPG 8 mmHg PV Regurg Flow PV pkVel 107 cm/s TV Forward Flow TV pkE 35.6 cm/s Lat E' Lat e 8.49 cm/s Lat E/E' Lat E/e 8.3 Med E' Med e 5.98 cm/s Med E/E' Med E/e 11.7 Aortic Valve Aortic Valve Ar 1.35 Aortic Valve Ve 0.82 PV Antegrade Flow Acceleration Sl 1363 cm/s2 PV Regurgitant Flow Peak Gradient ( 5 mmHg Right Atrium Yang's Disk 20 Right Ventricle Right Ventricle 14.8 cm/s 2D Left Ventricle LVIDd 4.37 cm (3.6-5.2) LV ESV 22.7 ml LVIDs 2.65 cm (2.3-3.9) LV ESV 22.4 ml LngAxd 7.21 cm LVESV BP 22.8 ml LngAxd 7.17 cm LV EF 59.4 % LV EDV 55.9 ml LV EF 70 % LV EDV 74.5 ml LV EF BP 64.8 % LVEDV BP 64.7 ml LV SV 33.2 ml LngAxs 5.77 cm LV SV 52.2 ml LngAxs 5.96 cm LV SV BP 41.9 ml LVPW LVPWd 1.26 cm Right Ventricle RVIDd 3.33 cm (2.6-4.3) Right Ventricle 34.6 mm Right Ventricle 35.6 mm Right and Left 0.762 [place] 64.5 mm Ventricular Septum IVSd 1.18 cm Left Atrium LA VOLBP 37.1 ml Aorta Ao Rtd 3.6 cm LVOT LVOT 2 cm LVOTArea 3.14 cm2 Ratios IVS LA Biplane LAVol I BP 18.1 ml/m2 RA Single Plane Right Atrium MO 16 mm Right Atrium Sy 41.3 ml Right Atrium Sy 48.6 mm Right Atrium Sy 20.1 ml/m2 Right Atrium Sy 15.8 cm2 MMODE Ratios LA/Ao 1.14 (0.87-1.1)* Left Atrium LAIDs 4.1 cm TA Tricuspid Annul 21.9 mm <Electronic Signature> 02/09/2024 10:47 AM Ismael Lincoln M.D. Winter Ch MD ECHO Final Re sult * (ABNORMAL) POCT glucose (02/08/2024 11:22 AM CDT) GLUCOSE POC 131(H) 70 - 99 mg/dL 02/08/2024 12:09 PM CDT [facility] 02/08/2024 11:2 2 AM CDT Sury Finch DO POCT ORDERABLES - DEVICE Final R esult [facility] [address] [address], [place] [phone] * (ABNORMAL) BASIC METABOLIC PANEL (02/08/2024 9:57 AM CDT) GLUCOSE 158(H) 70 - 99 MG/DL 02/08/2024 10:54 AM CDT [facility] BUN 18 7 - 18 MG/DL 02/08/2024 10:54 AM CDT [facility] CREATININE S/P/B 1.15(H) 0.55 - 1.02 MG/DL 02/08/2024 10:54 AM CDT [facility] SODIUM S/P/B 138 136 - 145 MMOL/L 02/08/2024 10:54 AM CDT [facility] POTASSIUM S/P/B 3.8 3.5 - 5.1 MMOL/L 02/08/2024 10:54 AM CDT [facility] CHLORIDE S/P/B 104 100 - 108 MMOL/L 02/08/2024 10:54 AM CDT [facility] CO2 28.2 21 - 32 MMOL/L 02/08/2024 10:54 AM CDT [facility] CALCIUM S/P/B 9.6 8.5 - 10.1 MG/DL 02/08/2024 10:54 AM CDT [facility] ANION GAP 5.8 5 - 15 MMOL/L 02/08/2024 10:54 AM CDT [facility] BUN CREATININE RATIO 15.7 6 - 26 02/08/2024 10:54 AM CDT [facility] GFR ESTIMATE 51(L) >90 ML/MIN/1.7 3 M2 02/08/2024 10:54 AM CDT [facility] Comment: NOTE: eGFR is not calculated for patients <18 years of age. This is an estimated GFR calculation using the new CKD EPI creatinine equation without race and so does not require a correction factor for race. This estimated GFR should not be used for calculating drug doses. 02/08/2024 9:57 AM CDT Winter Ch MD LABORATORY Final Re sult [facility] [address] [place] [address], [place] [phone] * (ABNORMAL) CBC W/DIFF AUTOMATED (02/08/2024 9:57 AM CDT) WBC 8.87 4.5 - 11.0 x10'3/uL 02/08/2024 10:39 AM CDT [facility] RBC 4.82 4.20 - 5.40 x10'6/uL 02/08/2024 10:39 AM CDT [facility] HGB 13.0 12.0 - 16.0 G/DL 02/08/2024 10:39 AM CDT [facility] HCT 41.2 38.0 - 48.0 % 02/08/2024 10:39 AM CDT [facility] MCV 85.5 81.0 - 99.0 FL 02/08/2024 10:39 AM CDT [facility] MCH 27.0 27.0 - 31.0 PG 02/08/2024 10:39 AM CDT [facility] MCHC 31.6(L) 32.0 - 36.0 G/DL 02/08/2024 10:39 AM CDT [facility] RDW 14.2 11.5 - 14.5 % 02/08/2024 10:39 AM CDT [facility] PLT 249 130 - 400 x10'3/uL 02/08/2024 10:39 AM T [facility] MPV 10.0 9.3 - 12.2 FL 02/08/2024 10:39 AM [facility] DIFFERENTIAL TYPE AUTOMATED DIFFERENTIAL 02/08/2024 10:39 AM T [facility] NEUTROPHILS % 58.7 % 02/08/2024 10:39 AM T [facility] LYMPHOCYTES % 30.9 % 02/08/2024 10:39 AM CDT [facility] MONOCYTES % 7.0 % 02/08/2024 10:39 AM CDT [facility] EOSINOPHILS 2.3 % 02/08/2024 10:39 AM CDT [facility] BASOPHILS 0.8 % 02/08/2024 10:39 AM T [facility] IMMATURE GRANS % 0.3 % 02/08/20 10:39 AM CDT [facility] ABS. NEUTROPHILS 5.21 1.80 - 7.70 x10'3/uL 02/08/2024 10:39 AM CDT [facility] ABS. LYMPHOCYTES 2.74 1.00 - 4.80 x10'3/uL 02/08/2024 10:39 AM CDT [facility] ABS. MONOCYTES 0.62 0.24 - 0.86 x10'3/uL 02/08/2024 10:39 AM CDT [facility] ABS. EOSINOPHILS 0.20 0.04 - 0.36 x10'3/uL 02/08/2024 10:39 AM CDT [facility] ABS. BASOPHILS 0.07 0.01 - 0.08 x10'3/uL 02/08/2024 10:39 AM CDT [facility] ABS. IMMATURE GRANULOCYTES 0.03 0.00 - 0.49 x10'3/uL 02/08/2024 10:39 AM CDT [facility] 02/08/2024 9:57 AM CDT Winter Ch MD LABORATORY Final Re sult [facility] [address] [place] [address], [place] [phone] * (ABNORMAL) POCT glucose (02/08/2024 5:46 AM CDT) GLUCOSE POC 142(H) 70 - 99 mg/dL 02/08/2024 5:47 AM CDT [facility] 02/08/2024 5:46 AM CDT Sury Finch DO POCT ORDERABLES - DEVICE Final R esult Performing Organization Address City/[facility] [[email or web address]] Co de Phone Number [facility] [address] [place] [phone], * (ABNORMAL) POCT glucose (02/08/2024 12:26 AM CDT) GLUCOSE POC 146(H) 70 - 99 mg/dL 02/08/2024 1:08 AM CDT [facility] 02/08/2024 12:2 6 AM CDT Winter Ch MD POCT ORDERABLES - DEVICE Final Result Performing Organization Address [facility] [[email or web address]] Co de Phone Number [facility] [address] [place] [phone], * CTA CHEST PE PROTOCOL (02/07/2024 9:33 PM CDT) Anatomical Region Laterality Modality Chest Computed Tomogra phy 02/07/2024 9:44 PM CDT Impressions 02/07/2024 10:09 PM CDT IMPRESSION: 1. ??No evidence of pulmonary thromboembolic disease. 2. ??No acute findings. Referred By: ?? Interpreted By: Justin Gimenez DO, 02/07/2024 9:44 PM Narrative 02/07/2024 10:09 PM CDT EXAMINATION: CTA chest pulmonary embolism HISTORY: Shortness of breath. ??Lower extremity swelling. ??Concern for pulmonary embolus. COMPARISON: Chest x-ray 02/07/2024. TECHNIQUE: Axial CT images of the chest after the uneventful intravenous administration of 80 mL of Isovue-370 given through the right antecubital fossa. ??Sagittal and coronal reformatted image sets with thick section reformatted post processed 3-D/MIP images according to the pulmonary embolus protocol. A dose lowering technique was used for this procedure, which may include, but is not limited to, dose reduction technique, automated exposure control, the use of degenerative reconstruction, and ALARA/image gently techniques. FINDINGS: Vascular: The main pulmonary artery is normal caliber. ??There is slightly suboptimal opacification of the pulmonary arteries. ??No definite pulmonary thromboembolic disease is identified. ??No evidence of right heart strain. ??There is atherosclerotic vascular disease. ??The aorta is normal caliber. ??There are coronary artery calcifications. Chest: The heart size is borderline. ??No pericardial effusion. ??There is no mediastinal or hilar lymphadenopathy. ??There is a small sliding hiatal hernia. ??No axillary lymphadenopathy. ??No acute appearing extrathoracic soft tissue abnormalities. There is mild bilateral dependent atelectasis within the lungs. ??No evidence of pneumonia, pleural effusion, or pneumothorax. ??No visible acute pulmonary abnormalities. Upper abdomen: No visible acute findings within the partially imaged upper abdomen. ??There is a small splenule. Osseous: There are multilevel degenerative changes within the spine. ??No acute osseous abnormalities are identified. Procedure Note Justin Gimenez DO - 02/07/2024 EXAMINATION: CTA chest pulmonary embolism HISTORY: Shortness of breath. Lower extremity swelling. Concern for pulmonaryembolus. COMPARISON: Chest x-ray 02/07/2024. TECHNIQUE: Axial CT images of the chest after the uneventful intravenousadministration of 80 mL of Isovue-370 given through the right antecubitalfossa. Sagittal and coronal reformatted image sets with thick sectionreformatted post processed 3-D/MIP images according to the pulmonaryembolus protocol. A dose lowering technique was used for this procedure, which may include,but is not limited to, dose reduction technique, automated exposurecontrol, the use of degenerative reconstruction, and ALARA/image gentlytechniques. FINDINGS: Vascular: The main pulmonary artery is normal caliber. There is slightlysuboptimal opacification of the pulmonary arteries. No definite pulmonarythromboembolic disease is identified. No evidence of right heart strain.There is atherosclerotic vascular disease. The aorta is normal caliber.There are coronary artery calcifications. Chest: The heart size is borderline. No pericardial effusion. There isno mediastinal or hilar lymphadenopathy. There is a small sliding hiatalhernia. No axillary lymphadenopathy. No acute appearing extrathoracicsoft tissue abnormalities. There is mild bilateral dependent atelectasis within the lungs. Noevidence of pneumonia, pleural effusion, or pneumothorax. No visibleacute pulmonary abnormalities. Upper abdomen: No visible acute findings within the partially imaged upperabdomen. There is a small splenule. Osseous: There are multilevel degenerative changes within the spine. Noacute osseous abnormalities are identified. IMPRESSION: 1. No evidence of pulmonary thromboembolic disease. 2. No acute findings. Referred By: Interpreted By: Justin Gimenez DO, 02/07/2024 9:44 PM Dillon Her MD,PHD CT Final Resu lt * MAGNESIUM (02/07/2024 6:01 PM CDT) Pathologist [facility] MAGNESIUM 2.4 1.8 - 2.4 MG/DL 02/07/2024 11:35 PM CDT [facility] Comment:SLIGHT HEMOLYSIS, RE SULT MAY BE AFFECTED. 02/07/2024 6:01 PM CDT Winter Ch MD LABORATORY Final Re sult [facility] [address] [address], [place] [phone] * TROPONIN, QUANT (02/07/2024 6:01 PM CDT) Pathologist [facility] TROPONIN I HIGH SENSITIVITY 10 <54 ng/L 02/07/2024 6:50 PM CDT [facility] Comment: HIGH DOSES OF BIOTIN, TROPONIN-SPECIFIC AUTOANTIBODIES, AND ANTIBODY THERAPY CONTAINING HAMA MAY INTERFERE WITH THIS TEST RESULT. CORRELATION TO CLINICAL HISTORY AND PRESENTATION RECOMMENDED. 02/07/2024 6:01 PM CDT Xochilt BRONW LABORATORY Final Resu lt [facility] [address] [place] [address], * ECG 12 lead (02/07/2024 5:53 PM CDT) 02/07/2024 5:53 PM CDT Narrative [facility] ([place] - 02/07/2024 6:59 PM CDT [facility] ? [address] [place] ? Test Date: ?2024-02-07 Pat Name: ? HAIR SARGENT ?Department: ?? 41 ? Room: ? INPR Gender: ? Female ? 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 : ?1955 ? Requested By: CASSANDRA HUBBARD Order Number: [id number] ? Reading MD: ?? Kj Abel ? Measurements Intervals ?[place] ? Rate: ? 67 ? P: ?73 HI: ? 202 ?QRS: ?26 QRSD: ? 97 ? T: ?65 QT: ? 428 ? QTc: ?453 ? Interpretive Statements SINUS RHYTHM NONSPECIFIC T-WAVE ABNORMALITY Compared to ECG 02/07/2024 15:32:15 No significant changes Other ischemic changes, not STEMI Preliminary EKG Interpretation by Xochilt BROWN Procedure Note Kj Abel MD - 02/07/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1955 Requested By: CASSANDRA HUBBARD Order Number: [id number] Reading MD: Kj Abel Measurements Intervals [place] Rate: 67 P: 73 HI: 202 QRS: 26 QRSD: 97 T: 65 QT: 428 QTc: 453 Interpretive Statements SINUS RHYTHM NONSPECIFIC T-WAVE ABNORMALITY Compared to ECG 02/07/2024 15:32:15 No significant changes Other ischemic changes, not STEMI Preliminary EKG Interpretation by Xochilt BROWN us Dillon Her MD,PHD ECG ORDERABLES Final Resu lt [facility] * XR CHEST PORTABLE (02/07/2024 4:04 PM CDT) Anatomical Region Laterality Modality Chest Radiographic Jody ging 02/07/2024 4:15 PM CDT Impressions 02/07/2024 4:17 PM CDT IMPRESSION: Borderline heart size and clear lungs. Referred By: ?? Interpreted By: Florin Cobos MD, 02/07/2024 4:15 PM Narrative 02/07/2024 4:17 PM CDT EXAM: XR CHEST PORTABLE DATE: 02/07/2024 ?? 1531 hours Comparison 01/28/2024 INDICATION: Dyspnea TECHNIQUE: One view FINDINGS: Upper normal heart size. ??Normal pulmonary vessel size. ??The lungs are clear. ??No pleural effusion. ??Normal appearance of the bones. Procedure Note lForin Cobos MD - 02/07/2024 EXAM: XR CHEST PORTABLE DATE: 02/07/2024 1531 hours Comparison 01/28/2024 INDICATION: Dyspnea TECHNIQUE: One view FINDINGS: Upper normal heart size. Normal pulmonary vessel size. Thelungs are clear. No pleural effusion. Normal appearance of the bones. IMPRESSION: Borderline heart size and clear lungs. Referred By: Interpreted By: Florin Cobos MD, 02/07/2024 4:15 PM us Xochilt BROWN [facility] Final Resu lt * ECG 12 lead (02/07/2024 3:32 PM CDT) 02/07/2024 3:32 PM CDT Narrative [facility] ([place] - 02/07/2024 4:37 PM CDT ?[place] ? [address] [place] ? Test Date: ?2024-02-07 Pat Name: ? HAIR SARGENT ?Department: ?? 41 ? Room: ? INPR Gender: ? Female ? 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 [id number] : ?1955 ? Requested By: XOCHILT GEIGER Order Number: [id number] ? Reading MD: ?? Kj Abel ? Measurements Intervals ?[place] ? Rate: ? 79 ? P: ?75 HI: ? 193 ?QRS: ?28 QRSD: ? 96 ? T: ?56 QT: ? 398 ? QTc: ?458 ? Interpretive Statements SINUS RHYTHM NONSPECIFIC T-WAVE ABNORMALITY Compared to ECG 01/28/2024 12:24:58 Ventricular premature complex(es) no longer present T-wave abnormality still present Other ischemic changes, not STEMI Preliminary EKG Interpretation by QUETA Callaway Procedure Note Kj Abel MD - 02/07/[address] Test Date: 2024-02-07 Pat Name: HAIR SARGENT Department: 41 Room: [facility] Gender: Female 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: [id number] : 1955 Requested By: XOCHILT GEIGER Order Number: [id number] Reading MD: Kj Abel Measurements Intervals [place] Rate: 79 P: 75 HI: 193 QRS: 28 QRSD: 96 T: 56 QT: 398 QTc: 458 Interpretive Statements SINUS RHYTHM NONSPECIFIC T-WAVE ABNORMALITY Compared to ECG 01/28/2024 12:24:58 Ventricular premature complex(es) no longer present T-wave abnormality still present Other ischemic changes, not STEMI Preliminary EKG Interpretation by QUETA Callaway us Xochilt BROWN ECG ORDERABLES Final Resu lt [facility] ([place]) [place] * (ABNORMAL) PRO-BRAIN NATRIURETIC PEPTIDE (02/07/2024 3:26 PM CDT) PRO-B TYPE NATRIURETIC PEPTIDE 141(H) <125 PG/ML 02/07/2024 4:01 PM CDT [facility] Comment: CUT POINTS ESTABLISHED BY [employer] ON NT PROBNP (ICON) STUDY (2006). AGE INDEPENDENT: <300 PG/ML HAS A 99% NEGATIVE PREDICTIVE VALUE FOR EXCLUDING ACUTE CHF <50 YEARS: >450 PG/ML IS CONSISTENT WITH ACUTE CHF 50-75 YEARS: >900 PG/ML IS CONSISTENT WITH ACUTE CHF >75 YEARS: >1800 PG/ML IS CONSISTENT WITH ACUTE CHF IN PATIENTS WITH RENAL INSUFFICIENCY (GFR <60), >1200 PG/ML YIELDS A DIAGNOSTIC SENSITIVITY AND SPECIFICITY OF 89% AND 72% FOR ACUTE CHF. 02/07/2024 3:26 PM CDT Xochilt BROWN LABORATORY Final Resu lt Performing Organization Address [facility] [[email or web address]] Co de Phone Number [facility] [address] [place] [address], [place] [phone] * TROPONIN, QUANT (02/07/2024 3:26 PM CDT) TROPONIN I HIGH SENSITIVITY 9 <54 ng/L 02/07/2024 4:01 PM CDT [facility] Comment: HIGH DOSES OF BIOTIN, TROPONIN-SPECIFIC AUTOANTIBODIES, AND ANTIBODY THERAPY CONTAINING HAMA MAY INTERFERE WITH THIS TEST RESULT. CORRELATION TO CLINICAL HISTORY AND PRESENTATION RECOMMENDED. 02/07/2024 3:26 PM CDT Xochilt BROWN LABORATORY Final Resu lt Performing Organization Address City/[facility]/ZIP Co de Phone Number [facility] [address] [place] [address], [place] [phone] * (ABNORMAL) COMPREHENSIVE METABOLIC PANEL (02/07/2024 3:26 PM CDT) [facility] GLUCOSE 131(H) 70 - 99 MG/DL 02/07/2024 4:01 PM CDT [facility] BUN 25(H) 7 - 18 MG/DL 02/07/2024 4:01 PM CDT [facility] CREATININE S/P/B 1.14(H) 0.55 - 1.02 MG/DL 02/07/2024 4:01 PM CDT [facility] SODIUM S/P/B 139 136 - 145 MMOL/L 02/07/2024 4:01 PM CDT [facility] POTASSIUM S/P/B 3.3(L) 3.5 - 5.1 MMOL/L 02/07/2024 4:01 PM CDT [facility] CHLORIDE S/P/B 106 100 - 108 MMOL/L 02/07/2024 4:01 PM CDT [facility] CO2 29.9 21 - 32 MMOL/L 02/07/2024 4:01 PM CDT [facility] CALCIUM S/P/B 9.4 8.5 - 10.1 MG/DL 02/07/2024 4:01 PM T [facility] BILIRUBIN TOTAL S/P/B 0.9 0.2 - 1.2 MG/DL 02/07/2024 4:01 PM T [facility] Comment: THIS ASSAY IS NOT RECOMMENDED FOR PATIENTS UNDERGOING TREATMENT WITH ELTROMBOPAG DUE TO THE POTENTIAL FOR FALSELY ELEVATED RESULTS. TOTAL PROTEIN S/P/B 7.5 6.4 - 8.2 G/DL 02/07/2024 4:01 PM CDT [facility] ALBUMIN S/P/B 3.7 3.4 - 5.0 G/DL 02/07/2024 4:01 PM CDT [facility] AST 23 15 - 37 U/L 02/07/2024 4:01 PM CDT [facility] ALT 25 14 - 55 U/L 02/07/2024 4:01 PM CDT [facility] ALKALINE PHOSPHATASE S/P/B 93 50 - 136 U/L 02/07/2024 4:01 PM CDT [facility] ANION GAP 3.1(L) 5 - 15 MMOL/L 02/07/2024 4:01 PM CDT [facility] BUN CREATININE RATIO 21.9 6 - 26 02/07/2024 4:01 PM T [facility] A/G RATIO 1.0 1.0 - 2.0 RATIO 02/07/2024 4:01 PM T [facility] GFR ESTIMATE 52(L) >90 ML/MIN/1.7 3 M2 02/07/2024 4:01 PM CDT [facility] Comment: NOTE: eGFR is not calculated for patients <18 years of age. This is an estimated GFR calculation using the new CKD EPI creatinine equation without race and so does not require a correction factor for race. This estimated GFR should not be used for calculating drug doses. 02/07/2024 3:26 PM CDT us Xochilt BROWN LABORATORY Final Resu lt [facility] [address] [place] [address], [place] [phone] * (ABNORMAL) CBC W/DIFF AUTOMATED (02/07/2024 3:26 PM CDT) WBC 10.71 4.5 - 11.0 x10'3/uL 02/07/2024 3:44 PM CDT [facility] RBC 4.33 4.20 - 5.40 x10'6/uL 02/07/2024 3:44 PM CDT [facility] HGB 11.7(L) 12.0 - 16.0 G/DL 02/07/2024 3:44 PM CDT [facility] HCT 36.9(L) 38.0 - 48.0 % 02/07/2024 3:44 PM CDT [facility] MCV 85.2 81.0 - 99.0 FL 02/07/2024 3:44 PM CDT [facility] MCH 27.0 27.0 - 31.0 PG 02/07/2024 3:44 PM CDT [facility] MCHC 31.7(L) 32.0 - 36.0 G/DL 02/07/2024 3:44 PM CDT [facility] RDW 14.1 11.5 - 14.5 % 02/07/2024 3:44 PM CDT [facility] PLT 239 130 - 400 x10'3/uL 02/07/2024 3:44 PM CDT [facility] MPV 9.8 9.3 - 12.2 FL 02/07/2024 3:44 PM CDT [facility] DIFFERENTIAL TYPE AUTOMATED DIFFERENTIAL 02/07/2024 3:44 PM CDT [facility] NEUTROPHILS % 62.6 % 02/07/2024 3:44 PM CDT [facility] LYMPHOCYTES % 26.3 % 02/07/2024 3:44 PM CDT [facility] MONOCYTES % 8.1 % 02/07/2024 3:44 PM CDT [facility] EOSINOPHILS 1.9 % 02/07/2024 3:44 PM CDT [facility] BASOPHILS 0.7 % 02/07/2024 3:44 PM CDT [facility] IMMATURE GRANS % 0.4 % 02/07/20 3:44 PM CDT [facility] ABS. NEUTROPHILS 6.71 1.80 - 7.70 x10'3/uL 02/07/2024 3:44 PM CDT [facility] ABS. LYMPHOCYTES 2.82 1.00 - 4.80 x10'3/uL 02/07/2024 3:44 PM CDT [facility] ABS. MONOCYTES 0.87(H) 0.24 - 0.86 x10'3/uL 02/07/2024 3:44 PM CDT [facility] ABS. EOSINOPHILS 0.20 0.04 - 0.36 x10'3/uL 02/07/2024 3:44 PM CDT [facility] ABS. BASOPHILS 0.07 0.01 - 0.08 x10'3/uL 02/07/2024 3:44 PM CDT [facility] ABS. IMMATURE GRANULOCYTES 0.04 0.00 - 0.49 x10'3/uL 02/07/2024 3:44 PM CDT [facility] 02/07/2024 3:26 PM CDT us Xochilt BROWN LABORATORY Final Resu lt [facility] [address] [place] [address], documented in this encounter Visit Diagnoses Diagnosis CHF (congestive heart failure) ([facility])- Primary Congestive heart failure, unspecified Shortness of breath Dependent edema Edema documented in this encounter Admitting Diagnoses Diagnosis CHF (congestive heart failure) ([facility]) Congestive heart failure, unspecified documented in this encounter Administered Medications Inactive Administered Medications - up to 3 most recent administrations Medication Order MAR Action Action Date Dose Rate Site absorbase ointment Topical, As needed, Itching, Starting on Sat02/11/24 at 1158, Until Sat02/12/24 at 1608 Given 02/11/2024 5:38 PM CDT Given 02/11/2024 12:52 PM CDT acetaminophen (TYLENOL) tablet 650 mg 650 mg, Oral, Every 4 hours PRN, Mild pain (Scale 1 - 3), Headaches, Fever, Discomfort, Starting on Sat02/07/24 at 2318, Until Sat02/12/24 at 1608, Maximum dose of acetaminophen is 4000 mg from all sources in 24 hours. amLODIPine (NORVASC) tablet 5 mg 5 mg, Oral, Daily, First dose on Sat02/08/24 at 0900, Until Discontinued Given 02/08/2024 9:30 AM CDT 5 mg atorvastatin (LIPITOR) tablet 10 mg 10 mg, Oral, Daily, First dose on Sat02/08/24 at 0900, Until Discontinued Given 02/12/2024 9:49 AM CDT 10 mg Given 02/11/2024 9:25 AM CDT 10 mg Given 02/10/2024 8:12 AM CDT 10 mg carvedilol (COREG) tablet 3.125 mg 3.125 mg, Oral, 2 times daily, First dose on Sat02/09/24 at 1215, Until Discontinued, Take with meal or snack Given 02/10/2024 8:12 AM CDT 3.125 mg Given 02/09/2024 8:31 PM CDT 3.125 mg Given 02/09/2024 1:10 PM CDT 3.125 mg cephALEXin (KEFLEX) capsule 500 mg 500 mg, Oral, Every 6 hours scheduled (4 times per day), 8 doses, First dose on Sat02/11/24 at 0000, Last dose on Sat02/12/24 at 1800 Given 02/12/2024 11:53 AM CDT 500 mg Given 02/12/2024 6:04 AM CDT 500 mg Given 02/12/2024 12:04 AM CDT 500 mg dextrose 10 % bolus infusion 125-250 mL 125-250 mL, Intravenous, Administer over 15 Minutes, As needed, Low Blood Sugar, Starting on Sat02/07/24 at 2319, Until Sat02/12/24 at 1608, If patient is verbally responsive and NPO or unable to swallow: Blood glucose less than 50 mg/dL - give 250 mL (25 g) and repeat until blood glucose reaches 70 mg/dL Blood glucose 50-69 mg/dL - give 125 mL (12.5 g) and repeat until blood glucose reaches 70 mg/dL If patient is verbally Unresponsive and NPO or unable to swallow: Blood glucose less than 70 mg/dL - give 250 mL (25 g), repeat until blood glucose reaches 70 mg/dL diphenhydrAMINE (BENADRYL) capsule 25 mg 25 mg, Oral, Every 6 hours PRN, Itching, Starting on Sat02/09/24 at 1240, Until Sat02/11/24 at 0903 Given 02/11/2024 2:14 AM CDT 25 mg Given 02/10/2024 8:07 PM CDT 25 mg Given 02/10/2024 8:13 AM CDT 25 mg docusate sodium (COLACE) capsule 100 mg 100 mg, Oral, 2 times daily PRN, Constipation, Starting on Sat02/07/24 at 2318, Until Sat02/12/24 at 1608 escitalopram (LEXAPRO) tablet 20 mg 20 mg, Oral, Daily, First dose on Sat02/08/24 at 0900, Until Discontinued Given 02/12/2024 9:49 AM CDT 20 mg Given 02/11/2024 9:25 AM CDT 20 mg Given 02/10/2024 8:12 AM CDT 20 mg furosemide (LASIX) injection 20 mg 20 mg, Intravenous, Once, 1 dose, On Sat02/07/24 at 2115, Administer IV push 20-40mg/min. Given 02/07/2024 9:40 PM CDT 20 mg furosemide (LASIX) injection 40 mg 40 mg, Intravenous, 2 times daily, First dose on Sat02/07/24 at 2330, Until Discontinued, Administer IV push 20-40mg/min. Given 02/10/2024 8:12 AM CDT 40 mg Given 02/09/2024 8:31 PM CDT 40 mg Given 02/09/2024 8:34 AM CDT 40 mg glucagon injection 1 mg 1 mg, Intramuscular, Once as needed, Other, Low blood sugar, 1 dose, Starting on Sat02/07/24 at 2319, Until Sat02/12/24 at 1608, If patient is verbally UNresponsive and no IV access with blood glucose less than 70 mg/dL. Do NOT repeat administration. glucose oral gel 32-64 mL 32-64 mL (15-30 g of dextrose), Oral, As needed, Low blood sugar, Starting on Sat02/07/24 at 2319, Until Sat02/12/24 at 1608, If patient is verbally responsive and taking thickened liquids or oral medications: Blood glucose less than 50 mg/dL - give 30 g of dextrose; repeat until blood glucose reaches 70 mg/dL Blood glucose 50-69 mg/dL - give 15 g of dextrose; repeat until blood glucose reaches 70 mg/dL 32 mL of glucose gel = 15 g of dextrose heparin (porcine) injection 5,000 Units 5,000 Units, Subcutaneous, Every 12 hours scheduled (2 times per day), First dose on Sat02/07/24 at 2330, Until Discontinued Given 02/12/2024 9:50 AM CDT 5,000 Units Left Lower Abdomen Given 02/11/2024 8:13 PM CDT 5,000 Units L eft Lower Abdomen Given 02/11/2024 9:26 AM CDT 5,000 Units L eft Lower Abdomen hydrocortisone (CORTIZONE) 0.5 % cream Topical, 2 times daily, First dose on Sat02/08/24 at 0015, Until Discontinued, Apply topically to affected area(s) 2 times daily Given 02/10/2024 8:14 AM CDT Given 02/09/2024 7:27 PM CDT Given 02/09/2024 8:35 AM CDT HYDROmorphone (DILAUDID) injection 0.2 mg 0.2 mg, Intravenous, Every 2 hours PRN, Severe pain (Scale 8 - 10), Starting on Sat02/07/24 at 2319, Until Sat02/12/24 at 1608, Administer slowly over at least 2-3 minutes. hydrOXYzine (ATARAX) tablet 25 mg 25 mg, Oral, 3 times daily PRN, Itching, Starting on Sat02/11/24 at 0903, Until Sat02/12/24 at 1608 Given 02/12/2024 6:08 AM CDT 25 mg Given 02/11/2024 6:35 PM CDT 25 mg insulin lispro (HUMALOG) injection 0-14 Units 0-14 Units, Subcutaneous, 3 times daily before meals, First dose on Sat02/08/24 at 0700, Until Discontinued, Blood Glucose (SENSITIVE Dosing): [Less than 70:? Initiate Hypoglycemia Standing Orders] [71-140: 0 units] [141-180: 2 units] [181-220: 4 units] [221-260: 6 units] [261-300: 8 units] [301-350: 10 units] [351-400: 12 units] [Greater than 400: 14 units and Call Physician] Given 02/11/2024 4:06 PM CDT 2 Units Right Lower Abdomen Given 02/08/2024 6:44 AM CDT 2 Units Le ft Lower Abdomen insulin lispro (HUMALOG) injection 0-7 Units 0-7 Units, Subcutaneous, Nightly at bedtime, First dose on Sat02/07/24 at 2330, Until Discontinued, Blood Glucose (SENSITIVE Dosing): [Less than 70:? Initiate Hypoglycemia Standing Orders] [71-180: ? 0 units] [181-220:? 2 units] [221-260:? 3 units] [261-300:? 4 units] [301-350:? 5 units] [351-400:? 6 units] [Greater than 400:? 7 units and Call Physician] iopamidol (ISOVUE-370) 76 % injection 80 mL 80 mL, Intravenous, IMG once as needed, Contrast, 1 dose, Starting on Sat02/07/24 at 2133, Until Sat02/07/24 at 2134 Given 02/07/2024 9:34 PM CDT 80 mLs Ri ght Arm levoFLOXacin (LEVAQUIN) tablet 500 mg 500 mg, Oral, Daily, First dose on Sat02/08/24 at 1115, Until Discontinued Given 02/10/2024 8:16 AM CDT 500 mg Given 02/09/2024 8:34 AM CDT 500 mg Given 02/08/2024 12:00 PM CDT 500 mg lisinopril (PRINIVIL) tablet 10 mg 10 mg, Oral, Daily, First dose on Sat02/09/24 at 0900, Until Discontinued Given 02/09/2024 8:34 AM CDT 10 mg lisinopril (PRINIVIL) tablet 20 mg 20 mg, Oral, Daily, First dose (after last modification) on Sat02/10/24 at 0900, Until Discontinued Given 02/12/2024 9:49 AM CDT 20 mg Given 02/11/2024 9:25 AM CDT 20 mg Given 02/10/2024 8:13 AM CDT 20 mg magnesium oxide (MAG-OX) tablet 400 mg 400 mg, Oral, 2 times daily, First dose on Sat02/07/24 at 2330, Until Discontinued Given 02/12/2024 9:49 AM CDT 400 mg Given 02/11/2024 8:13 PM CDT 400 mg Given 02/11/2024 9:25 AM CDT 400 mg naLOXone (NARCAN) injection 0.4 mg 0.4 mg, Intravenous, As needed, Opioid reversal, Starting on Sat02/07/24 at 2318, Until Sat02/12/24 at 1608 ondansetron (ZOFRAN) injection 4 mg 4 mg, Intravenous, Every 6 hours PRN, Nausea, Vomiting, Starting on Sat02/07/24 at 2318, Until Sat02/12/24 at 1608, IV push over 2-5 minutes. perflutren lipid microsphere (DEFINITY) injection 2 mL 2 mL, Intravenous, IMG once as needed, Contrast, 1 dose, Starting on 02/08/24 at 1338, Until 02/08/24 at 1338, Administer over 30-60 seconds. Follow with 10 mL saline flush. Given 02/08/2024 1:38 PM CDT 2 mLs polyethylene glycol (GLYCOLAX) packet 17 g 17 g, Oral, Daily as needed, Constipation, Starting on Sat02/07/24 at 2318, Until Sat02/12/24 at 1608 potassium chloride 40 mEq in sodium chloride 0.9 % 500 mL IV Infusion 40 mEq, Intravenous, Administer over 240 Minutes, Once, 1 dose, On Sat02/07/24 at 2115, MAX rate in peripheral line of 10 mEq per hour. New Bag 02/07/2024 9:41 PM CDT 40 mE q 125 mL/hr potassium chloride CR (K-TAB) tablet 10 mEq 10 mEq, Oral, Daily, First dose on Sat02/08/24 at 0900, Until Discontinued, TAKE ONE TABLET DAILY Patient must be seen for further refills Do not break, chew, or crush. Given 02/12/2024 9:49 AM CDT 10 mEq Given 02/11/2024 9:27 AM CDT 10 mEq Given 02/10/2024 8:12 AM CDT 10 mEq potassium chloride CR (K-TAB) tablet 40 mEq 40 mEq, Oral, Once, 1 dose, On Sat02/07/24 at 2115, Do not break, chew, or crush. Given 02/07/2024 9:41 PM CDT 40 mE q potassium chloride CR (K-TAB) tablet 40 mEq 40 mEq, Oral, Once, 1 dose, On Sat02/09/24 at 1300, Do not break, chew, or crush. Given 02/09/2024 1:10 PM CDT 40 mE q spironolactone (ALDACTONE) Split tab 12.5 mg 12.5 mg, Oral, Daily, First dose on Sat02/10/24 at 0900, Until Discontinued, HAZARDOUS MEDICATION: wear single chemotherapy approved gloves. Do not open or split. If crushing, use approved closed-system crushing device for hazardous medications. Given 02/12/2024 9:49 AM CDT 12.5 mg Given 02/11/2024 9:25 AM CDT 12.5 mg Given 02/10/2024 9:43 AM CDT 12.5 mg torsemide (DEMADEX) tablet 20 mg 20 mg, Oral, Daily, First dose on Sat02/11/24 at 0900, Until Discontinued Given 02/12/2024 9:49 AM CDT 20 mg Given 02/11/2024 10:01 AM CDT 20 mg traMADol (ULTRAM) tablet 50 mg 50 mg, Oral, Every 6 hours PRN, Moderate pain (Scale 4 - 7), Starting on Sat02/07/24 at 2317, Until Sat02/12/24 at 1608Indications:Chronic Pain Given 02/09/2024 1:35 AM CDT 50 mg triamcinolone (KENALOG) 0.5 % ointment Topical, 2 times daily, First dose on Sat02/11/24 at 0930, Until Discontinued Given 02/12/2024 9:51 AM CDT Given 02/11/2024 8:13 PM CDT Given 02/11/2024 10:01 AM CDT documented in this encounter Active and Recently Administered Medications Times are shown in CDT. Scheduled Medication Order 02/10/2024 02/11/2024 02/12/2024 atorvastatin (LIPITOR) tablet 10 mg 10 mg, Oral, Daily, First dose on Sat02/08/24 at 0900, Until Discontinued 811 (Given - Provider: Tenzin Orozco RN) 0925 (Given - Provider: BORA Helton) 0949 (Given - Provider: BORA Helton) carvedilol (COREG) tablet 3.125 mg (CANCELED) 3.125 mg, Oral, 2 times daily, First dose on Sat02/09/24 at 1215, Until Discontinued, Take with meal or snack 811 (Given - Provider: Tenzin Orozco RN) cephALEXin (KEFLEX) capsule 500 mg 500 mg, Oral, Every 6 hours scheduled (4 times per day), 8 doses, First dose on Sat02/11/24 at 0000, Last dose on Sat02/12/24 at 1800 2355 (Given - Provider: Ricky Rosales RN) 0557 (Given - Provider: Ricky Rosales RN)1227 (Given - Provider: BORA Helton)1831 (Given - Provider: BORA Helton) 0004 (Given - Provider: Ricky Rosales RN)0604 (Given - Provider: Ricky Rosales RN)1153 (Given - Provider: BORA Helton) escitalopram (LEXAPRO) tablet 20 mg 20 mg, Oral, Daily, First dose on Sat02/08/24 at 0900, Until Discontinued 811 (Given - Provider: Tenzin Orozco RN) 0925 (Given - Provider: BORA Helton) 0949 (Given - Provider: Niya Mario RN-CHARANJIT) furosemide (LASIX) injection 40 mg (CANCELED) 40 mg, Intravenous, 2 times daily, First dose on Sat02/07/24 at 2330, Until Discontinued, Administer IV push 20-40mg/min. 0812 (Given - Provider: Tenzin Orozco RN) heparin (porcine) injection 5,000 Units(Linked Group 1) 5,000 Units, Subcutaneous, Every 12 hours scheduled (2 times per day), First dose on Sat02/07/24 at 2330, Until Discontinued 811 (Given - Provider: Tenzin Orozco RN)2006 (Given - Provider: Ricky Rosales RN) 925 (Given - Provider: Niya Mario RN-CHARANJIT)2012 (Given - Provider: Ricky Rosales RN) 09 (Given - Provider: BORA Helton) hydrocortisone (CORTIZONE) 0.5 % cream (CANCELED) Topical, 2 times daily, First dose on Sat02/08/24 at 0015, Until Discontinued, Apply topically to affected area(s) 2 times daily 813 (Given - Provider: Tenzin Orozco RN)2010 (Not Given - Provider: Ricky Rosales RN - Reason: Patient/family declined) 942 (Not Given - Provider: BORA Helton - Reason: Medication Discontinued) insulin lispro (HUMALOG) injection 0-14 Units(Linked Group 2) 0-14 Units, Subcutaneous, 3 times daily before meals, First dose on Sat02/08/24 at 0700, Until Discontinued, Blood Glucose (SENSITIVE Dosing): [Less than 70:? Initiate Hypoglycemia Standing Orders] [71-140: 0 units] [141-180: 2 units] [181-220: 4 units] [221-260: 6 units] [261-300: 8 units] [301-350: 10 units] [351-400: 12 units] [Greater than 400: 14 units and Call Physician] 0634 (Not Given - Provider: Jina Ayala RN - Reason: Order parameters not met - Comment: accucheck 124)1235 (Not Given - Provider: Tenizn Orozco RN - Reason: Order parameters not met)1642 (Not Given - Provider: Tenzin Orozco RN - Reason: Order parameters not met) 0557 (Not Given - Provider: Ricky Rosales RN - Reason: Order parameters not met)1214 (Not Given - Provider: BORA Helton - Reason: Order parameters not met - Comment: Blood glucose 130)1606 (Given - Provider: Niya Mario RN-CHARANJIT) 0604 (Not Given - Provider: Ricky Rosales RN - Reason: Order parameters not met)1153 (Not Given - Provider: BORA Helton - Reason: Order parameters not met - Comment: Blood glucose 112.)1600 (Canceled Entry - Provider: Automatic Discharge Provider - Comment: Automatically canceled at discontinue of medication order) insulin lispro (HUMALOG) injection 0-7 Units(Linked Group 2) 0-7 Units, Subcutaneous, Nightly at bedtime, First dose on Sat02/07/24 at 2330, Until Discontinued, Blood Glucose (SENSITIVE Dosing): [Less than 70:? Initiate Hypoglycemia Standing Orders] [71-180: ? 0 units] [181-220:? 2 units] [221-260:? 3 units] [261-300:? 4 units] [301-350:? 5 units] [351-400:? 6 units] [Greater than 400:? 7 units and Call Physician] 2010 (Not Given - Provider: Ricky Rosales RN - Reason: Order parameters not met) 2004 (Not Given - Provider: Ricky Rosales RN - Reason: Order parameters not met) levoFLOXacin (LEVAQUIN) tablet 500 mg (CANCELED) 500 mg, Oral, Daily, First dose on Sat02/08/24 at 1115, Until Discontinued 0816 (Given - Provider: Tenzin Orozco RN) lisinopril (PRINIVIL) tablet 20 mg 20 mg, Oral, Daily, First dose (after last modification) on Sat02/10/24 at 0900, Until Discontinued 0813 (Given - Provider: Tenzin Orozco RN) 924 (Given - Provider: BORA Helton) 0949 (Given - Provider: BORA Helton) magnesium oxide (MAG-OX) tablet 400 mg 400 mg, Oral, 2 times daily, First dose on Sat02/07/24 at 2330, Until Discontinued 811 (Given - Provider: Tenzin Orozco RN)2006 (Given - Provider: Ricky Rosales RN) 924 (Given - Provider: BORA Helton)2012 (Given - Provider: Ricky Rosales RN) 49 (Given - Provider: BORA Helton) potassium chloride CR (K-TAB) tablet 10 mEq 10 mEq, Oral, Daily, First dose on Sat02/08/24 at 0900, Until Discontinued, TAKE ONE TABLET DAILY Patient must be seen for further refills Do not break, chew, or crush. 811 (Given - Provider: Tenzin Orozco RN) 926 (Given - Provider: BORA Helton) 0949 (Given - Provider: BORA Helton) spironolactone (ALDACTONE) Split tab 12.5 mg 12.5 mg, Oral, Daily, First dose on Sat02/10/24 at 0900, Until Discontinued, HAZARDOUS MEDICATION: wear single chemotherapy approved gloves. Do not open or split. If crushing, use approved closed-system crushing device for hazardous medications. 0943 (Given - Provider: Tenzin Orozco RN) 924 (Given - Provider: BORA Helton) 0949 (Given - Provider: BORA Helton) torsemide (DEMADEX) tablet 20 mg 20 mg, Oral, Daily, First dose on Sat02/11/24 at 0900, Until Discontinued 100 (Given - Provider: BORA Helton) 0949 (Given - Provider: BORA Helton) triamcinolone (KENALOG) 0.5 % ointment Topical, 2 times daily, First dose on Sat02/11/24 at 0930, Until Discontinued 1001 (Given - Provider: BORA Helton)2012 (Given - Provider: Ricky Rosales RN) 0951 (Given - Provider: BORA Helton) PRN Medication Order 02/10/2024 02/11/2024 02/12/2024 absorbase ointment Topical, As needed, Itching, Starting on Sat02/11/24 at 1158, Until Sat02/12/24 at 1608 1252 (Given - Provider: BORA Helton)1738 (Given - Provider: BORA Helton) acetaminophen (TYLENOL) tablet 650 mg 650 mg, Oral, Every 4 hours PRN, Mild pain (Scale 1 - 3), Headaches, Fever, Discomfort, Starting on Sat02/07/24 at 2318, Until Sat02/12/24 at 1608, Maximum dose of acetaminophen is 4000 mg from all sources in 24 hours. dextrose 10 % bolus infusion 125-250 mL 125-250 mL, Intravenous, Administer over 15 Minutes, As needed, Low Blood Sugar, Starting on Sat02/07/24 at 2319, Until Sat02/12/24 at 1608, If patient is verbally responsive and NPO or unable to swallow: Blood glucose less than 50 mg/dL - give 250 mL (25 g) and repeat until blood glucose reaches 70 mg/dL Blood glucose 50-69 mg/dL - give 125 mL (12.5 g) and repeat until blood glucose reaches 70 mg/dL If patient is verbally Unresponsive and NPO or unable to swallow: Blood glucose less than 70 mg/dL - give 250 mL (25 g), repeat until blood glucose reaches 70 mg/dL diphenhydrAMINE (BENADRYL) capsule 25 mg (CANCELED) 25 mg, Oral, Every 6 hours PRN, Itching, Starting on Sat02/09/24 at 1240, Until Sat02/11/24 at 0903 0813 (Given - Provider: Tenzin Orozco RN)2006 (Given - Provider: Ricky Rosales RN) 0214 (Given - Provider: Ricky Rosales RN) docusate sodium (COLACE) capsule 100 mg 100 mg, Oral, 2 times daily PRN, Constipation, Starting on Sat02/07/24 at 2318, Until Sat02/12/24 at 1608 glucagon injection 1 mg 1 mg, Intramuscular, Once as needed, Other, Low blood sugar, 1 dose, Starting on Sat02/07/24 at 2319, Until Sat02/12/24 at 1608, If patient is verbally UNresponsive and no IV access with blood glucose less than 70 mg/dL. Do NOT repeat administration. glucose oral gel 32-64 mL 32-64 mL (15-30 g of dextrose), Oral, As needed, Low blood sugar, Starting on Sat02/07/24 at 2319, Until Sat02/12/24 at 1608, If patient is verbally responsive and taking thickened liquids or oral medications: Blood glucose less than 50 mg/dL - give 30 g of dextrose; repeat until blood glucose reaches 70 mg/dL Blood glucose 50-69 mg/dL - give 15 g of dextrose; repeat until blood glucose reaches 70 mg/dL 32 mL of glucose gel = 15 g of dextrose HYDROmorphone (DILAUDID) injection 0.2 mg 0.2 mg, Intravenous, Every 2 hours PRN, Severe pain (Scale 8 - 10), Starting on Sat02/07/24 at 2319, Until Sat02/12/24 at 1608, Administer slowly over at least 2-3 minutes. hydrOXYzine (ATARAX) tablet 25 mg 25 mg, Oral, 3 times daily PRN, Itching, Starting on Sat02/11/24 at 0903, Until Sat02/12/24 at 1608 1835 (Given - Provider: Niya Mario RN-) 0608 (Given - Provider: Ricky Rosales RN) ipratropium-albuterol (DUONEB) 0.5-2.5 (3) MG/3ML nebulizer solution 3 mL 3 mL, Nebulization, Every 6 hours PRN, Shortness of breath, Starting on Sat02/07/24 at 2318, Until Sat02/12/24 at 1608 naLOXone (NARCAN) injection 0.4 mg 0.4 mg, Intravenous, As needed, Opioid reversal, Starting on Sat02/07/24 at 2318, Until Sat02/12/24 at 1608 ondansetron (ZOFRAN) injection 4 mg 4 mg, Intravenous, Every 6 hours PRN, Nausea, Vomiting, Starting on Sat02/07/24 at 2318, Until Sat02/12/24 at 1608, IV push over 2-5 minutes. polyethylene glycol (GLYCOLAX) packet 17 g 17 g, Oral, Daily as needed, Constipation, Starting on Sat02/07/24 at 2318, Until Sat02/12/24 at 1608 tiZANidine (ZANAFLEX) tablet 2 mg 2 mg, Oral, Every 6 hours PRN, spasms, Starting on Sat02/07/24 at 2317, Until Sat02/12/24 at 1608 traMADol (ULTRAM) tablet 50 mg 50 mg, Oral, Every 6 hours PRN, Moderate pain (Scale 4 - 7), Starting on Sat02/07/24 at 2317, Until Sat02/12/24 at 1608 Linked Groups Order Group 1: heparin (porcine) injection 5,000 UnitsJump to med 5,000 Units, Subcutaneous, Every 12 hours scheduled (2 times per day), First dose on Sat02/07/24 at 2330, Until Discontinued And Moderate Risk for VTE (COMPLETED) Group 2: insulin lispro (HUMALOG) injection 0-14 UnitsJump to med 0-14 Units, Subcutaneous, 3 times daily before meals, First dose on Sat02/08/24 at 0700, Until Discontinued, Blood Glucose (SENSITIVE Dosing): [Less than 70:? Initiate Hypoglycemia Standing Orders] [71-140: 0 units] [141-180: 2 units] [181-220: 4 units] [221-260: 6 units] [261-300: 8 units] [301-350: 10 units] [351-400: 12 units] [Greater than 400: 14 units and Call Physician] And insulin lispro (HUMALOG) injection 0-7 UnitsJump to med 0-7 Units, Subcutaneous, Nightly at bedtime, First dose on Sat02/07/24 at 2330, Until Discontinued, Blood Glucose (SENSITIVE Dosing): [Less than 70:? Initiate Hypoglycemia Standing Orders] [71-180: ? 0 units] [181-220:? 2 units] [221-260:? 3 units] [261-300:? 4 units] [301-350:? 5 units] [351- 400:? 6 units] [Greater than 400:? 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
--- OUTSIDE RECORDS SUMMARY | 2024-09-19 12:13 | XMS_ITS | Encounter Summary ---
Author Organization [facility] Address [facility]. [place], [place] [id number] [place] [id number] Care Team Providers Care Adoption Agent Name Role Phone Sami Liriano DO Primary Care Provider + Reason for Visit * Reason Onset Date Comments Question 04/22/2024 Encounter Details Date Type Department Care Team (Late st Contact Info) Description 04/22/2024 Telephone [facility] Family & Internal Medicine [facility] [address] [place] [address] Sami Liriano DO [address] [place] [id number] Question Social History Tobacco Use Types Packs/Day Years Used Date Smoking Tobacco: Former Cigarettes 0.5 12 0 09/30/1964 - 09/30/1976 Passive Smoke Exposure: Never Smokeless Tobacco: Never Alcohol Use Standard Drinks/Week Comments Not Currently 0 (1 standard drink = 0.6 oz pur e alcohol) 2 cocktails on some Sundays [facility] Utilities Answer Date Recorded In the [...] any time in the past 12 m [facility], were you homeless or living in a [place] health care facility (including now)? 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 Sent. documented in this encounter Plan of Treatment Upcoming Encounters Date Type Department Care Team (Late st Contact Info) Description 10/09/2024 9:30 AM ASSEMBLY LINE LEADER Office Visit [facility] [phone] Carlos Farris MD [facility] [address] [place] [address] 11/02/2024 10:20 AM ASSEMBLY LINE LEADER Office Visit [facility] Family & Internal Medicine - [address] [phone] Sami Liriano DO [address] [place] [phone] documented as of this encounter Goals Goal Patient Goal Type Associated Problems Recent Progress Patient-Stated? 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
--- OUTSIDE RECORDS SUMMARY | 2024-09-19 12:13 | XMS_ITS | Encounter Summary ---
Author Organization [facility] Address Formerly [facility]. [place], [place] [id number] [place] [address] Care Team Providers Care Disaster Recovery Manager Name Role Phone Sami Liriano DO Primary Care Provider + Encounter Details Date Type Department Care Team (Late st Contact Info) Description 03/31/2024 [facility] Message Enc [facility] Medical Group Family & Internal Medicine [id number] [place] [phone] Sami Liriano DO [address] [place], [place] [phone] itching Social History Tobacco Use Types Packs/Day Years Used Date Smoking Tobacco: Former Cigarettes 0.5 12 0 09/30/1964 - 09/30/1976 Passive Smoke Exposure: Never Smokeless Tobacco: Never Alcohol Use Standard Drinks/Week Comments Not Currently 0 (1 standard drink = 0.6 oz pur e alcohol) 2 cocktails on some Sundays [facility] Utilities Answer Date Recorded In the [...] on file Legal Sex Female 12:43 PM CHECK AIRMAN Gender Identity Female 12/18/2021 6:31 AM CDT Sexual Orientation Straight 01/15/2022 6: 11 AM CDT 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 Not on file Not [...] st Contact Info) Description 10/09/2024 9:30 AM CHECK AIRMAN Office Visit [facility] [phone] Carlos Farris MD [facility] [address] [place] [address] 11/02/2024 10:20 AM CHECK AIRMAN Office Visit [facility] Medical Group Family & Internal Medicine - [address] [phone] Sami Liriano, [address] [place] [address] documented as of this encounter Goals Goal [...] Total Score: 0 10/11/19 22 10:50 AM CHECK AIRMAN documented as of this encounter Care Teams Disaster Recovery Manager Relationship Specialty Start Date End Date Sami Liriano DO [address] [place] [address] [phone] PCP - General FAMILY PRACTICE 12/24/19 documented as of this encounter
--- OUTSIDE RECORDS SUMMARY | 2024-09-19 12:13 | XMS_ITS | Encounter Summary ---
Author Organization [facility] Address [address] [place] [address]. [place], [place] [id number] [place] [address] Care Team Providers Care Beauty Culturist Name Role Phone Romeojen Sami Nicole AGUIAR Primary Care Provider + Reason for Referral * Consultation (Routine) - New Request Specialty Diagnoses / Procedures Referred By Shereen benton Referred To Contact SLEEP & RESPIRATORY CARE Diagnoses MOR (obstructive sleep apnea) Procedures OFFICE/OUTPATIENT NEW LOW MDM 30-44 MINUTES OFFICE/OUTPT VISIT,NEW,LEVL IV OFFICE/OUTPT VISIT,NEW,LEVL V OFFICE/OUTPT VISIT,EST,LEVL III OFFICE/OUTPT VISIT,EST,LEVL IV OFFICE/OUTPT VISIT,EST,LEVL V Carlos Farris MD [facility] [address] [place], [place] [address] Phone: tel: fax: Referral ID Status Reason Start Date Expiration Date Visits Requested Visits Authorized [id number] New Request Specialty Services 07/06/2024 07/06/2025 1 1 Scheduling Instructions Eli Olson MD [phone] (FAX) [facility] Reason for Visit * Reason Comments Follow Up 2 month Encounter Details Date Type Department Care Team ([facility] Contact Info) Description 07/06/2024 12:30 PM CDT [facility] [address] [place] [address] Carlos Farris MD [facility] [address] [place] [address] Follow Up (2 month) Social History Tobacco Use Types Packs/Day Years Used Date Smoking Tobacco: Former Cigarettes 0.5 12 0 09/30/1964 - 09/30/1976 Passive Smoke Exposure: Never Smokeless Tobacco: Never Alcohol Use Standard Drinks/Week Comments Not Currently 0 (1 standard drink = 0.6 oz pur e alcohol) 2 cocktails on some Sundays [facility] Utilities Answer Date Recorded In the past 12 months has e [employer], gas, oil, or water [employer] threatened to shut off services in your [...] any time in the past 12 m [facility], were you homeless or living in a [facility] (including now)? 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 Not on file Not on franck e documented as of this encounter Last Filed Vital Signs Vital Sign Reading Time Taken Comments Blood Pressure 142/66 07/06/2024 12:42 PM CDT Pulse 72 07/06/2024 12:42 PM CDT Temperature - - Respiratory Rate - - Oxygen Saturation 98% 07/06/2024 12:42 PM CDT Inhaled Oxygen Concentration - - Weight 113.9 kg (251 lb) 07/06/2024 12:42 PM CDT Height 152.4 cm (5') 07/06/2024 12:42 PM CDT Body Mass Index 49.02 07/06/2024 12:42 PM CDT documented in this encounter Functional Status [...] documented in this encounter Progress Notes * Carlos Farris MD - 07/06/2024 12:30 PM CDT Images from the original note were not included. [place], [place] [address] Cardiology Consult PCP: Sami Liriano DO Cardiac Problem List HTN HFpEF HLD Former Smoker Interval History Patient presents today 07/06/2024 for a follow-up. Since patient was last seen states she is doing well. She is tolerating her medication well. No hospitalizations. Patient denies any chest pain, pnd,orthopnea, fatigue,decreased appetite, palpitations, light headedness, dizziness, syncope. She continues to have ROSEMARY and SOB. Her weight is up almost 10 lbs. 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 History Ms. Jolly Sargent is a pleasant [...] once. Plan was to repeat her labs. She is presenting today 04/2024 for 2-month follow up. She continues to report dyspnea on exertion and lower extremity edema worse as the day goes on. She gets short of breath walking less than 300 feet. She only occasionally uses inhalers and has not had PFTs as previously ordered by PCP. She states she is no longer using the Breztri daily. She denies any chest discomfort dizziness, lightheadedness, syncope, near syncope, PND, orthopnea. Blood pressures at home running 140s to 150s/60s. Her primary complaints in addition to shortness of breath include tremors that started after hospitalization in January as well as itchy rash bilateral anterior shins left greater than right and bilateral fingertips. This started during her hospitalization in January 2024. Her aldactone was increased to 25 mg QD. Repeat BMP was ordered, but not completed. Past Medical History: Diagnosis Date Anxiety disorder, unspecified Arthritis Arthritis of left knee 11/08/2019 Depression Diabetes mellitus ([facility]) GERD (gastroesophageal reflux disease) Hypertension Overactive bladder Positive colorectal cancer screening using Cologuard test 04/19/2020 Added automatically from request for surgery [id number] Past Surgical History: Procedure Laterality Date ANKLE SURGERY left SECTION COLONOSCOPY N/A 04/27/2020 COLONOSCOPY WITH BIOPSY X 3 performed by Joel Keenan MD at [facility] OR COLONOSCOPY N/A 11/20/2023 Colonoscopy with Polypectomies performed by Joel Keenan MD at [facility] OR EGD EYE SURGERY FRACTURE SURGERY HERNIA REPAIR HYSTERECTOMY JOINT REPLACEMENT SHOULDER SURG PROC UNLISTED right TONSILLECTOMY TOTAL KNEE ARTHROPLASTY right Social History Tobacco Use Smoking status: Former Current packs/day: 0.00 Average packs/day: 0.5 packs/day for 12.0 years (6.0 ttl pk-yrs) Types: Cigarettes Start date: 09/30/1964 Quit date: 09/30/1976 Years since quittin.7 Passive exposure: Never Smokeless tobacco: Never Vaping [...] Start Date End Date Taking? Authorizing Provider spironolactone (ALDACTONE) 25 MG tablet Take 1 tablet (25 mg total) by mouth daily. 07/06/24 Yes Carlos Farris MD torsemide 40 MG Tab Take 40 mg by mouth 2 (two) times daily for 30 days. 07/06/24 08/05/24 Yes MD Adenike acetaminophen 325 MG tablet Take 2 tablets [...] by mouth daily. 10/21/23 Sami Liriano DO Igfnwmq-Yksekncyqsh-Lxnnsbmxrt (BREZTRI AEROSPHERE) 160-9-4.8 MCG/ACT Aerosol Inhale 2 [...] mouth every day with breakfast 04/30/24 Sami Liriano DO potassium chloride CR (K-TAB) 10 MEQ Tab CR tablet Take 1 tablet (10 mEq total) by mouth daily. 03/02/24 Sami Liriano DO tiZANidine (ZANAFLEX) 2 MG tablet TAKE 1 TABLET(2 MG) BY MOUTH EVERY 6 HOURS NEEDED 04/06/24 Sami Liriano DO traMADol (ULTRAM) 50 MG [...] as per HPI. Physical Exam Filed Vitals: 07/06/24 1242 BP: (!) 142/66 Pulse: 72 SpO2: 98% Weight: 113.9 kg (251 lb) Height: 1.524 m (5') Body mass index is 49.02 kg/m??. Physical Exam: General: NAD, Appears Normal Stated Age,morbidly obese HEENT: PEERL, EOMI, MMM NECK: No JVD CVS: RRR, no MRG Resp: CTAB ABD: Soft, NT, ND, +BS Ext: No CC ,1+ edema Neuro: Bilateral Upper and lower extremity tremors [...] mildly enlarged. Right atrial size is normal. Mild mitral regurgitation. Mild pulmonic regurgitation. A trace of tricuspid regurgitation. Unable to reliably quantitate pulmonary systolic pressure. Stress Test RegSpect 2020: Clinically negative. Electrocardiographically negative treadmill test for ischemia. Normal myocardial perfusion SPECT imaging. Stress images only. Normal wall motion with an ejection fraction of 76%. Holter Left Heart Catherization Assessment/Plan HFpEF HLD HTN BOONE Former Smoker OMR HFpEF: hospitalized in January 2024, Echocardiogram with EF 60 to 65%. She is on Aldactone 25 mg once daily for goal-directed medical therapy. Increase torsemide to 40 mg BID. BMP in 1 week. Consider farziga at our next visit. Prior ROSEMARY dopplers negative. Will prescribe compression stockings as a component of her ROSEMARY is likely 2/2 venous insufficiency. Hyperlipidemia she will continue her atorvastatin 10 mg QD. Most recent LDL was 74. Repeat lipid panel annually. Hypertension: Goal BP < 130/80 or below. She will continue Aldactone 25 mg daily, and nhzltpwuuq28 mg daily. Has h/o MOR. not on CPAP. Will refer to sleep medicine. Follow-up: 3 months Thank you for allowing me to participate in the care of this patient. Please reach out with any questions. Carlos Farris MD Portions of this note were dictated using Traity speech recognition software. Occasional wrong wordor sound-alike substitutions may have occurred due to the inherent limitations of voice recognition software. Please read the chart carefully and recognize, using context, where the substitutions may have occurred. documented in this encounter Plan of Treatment Upcoming Encounters Date Type Department Care Team (Late st Contact Info) Description 10/09/2024 9:30 AM CITIZENSHIP INSTRUCTOR Office Visit [facility] [address] Carlos Farris MD [facility] [address] [place] [address] 11/02/2024 10:20 AM CITIZENSHIP INSTRUCTOR Office Visit [facility] Medical Group Family & Internal Medicine - [address] [phone] Sami Liriano DO [address] [place] [address] Scheduled Orders Name Type Priority Associated Diagnoses Orde r Schedule BASIC METABOLIC PANEL Lab Routine Acute on chronic heart failure with preserved ejection fraction ([facility]) Expected: 07/06/2024, Expires: 07/06/2025 Scheduled Referrals Name Type Priority Associated Diagnoses Orde r Schedule Ambulatory referral to Pulmonology/Sleep and Respiratory Care Referral Routine MOR (obstructive sleep apnea) Ordered: 07/06/2024 documented as of this encounter Goals Goal Patient Goal Type Associated Problems Recent Progress Patient-Stated? Author Patient will return to prior living situation and remain independent in ADLs upon discharge from hospital Lifestyle Sylvia Carvajal, ARTEMIO documented as of this encounter Visit Diagnoses Diagnosis Localized edema- Primary Edema Acute on chronic heart failure with preserved ejection fraction ([facility]) Hypertension associated with type 2 diabetes mellitus ([facility]) Chronic diastolic congestive heart failure ([facility]) Chronic diastolic heart failure Dyslipidemia Other and unspecified hyperlipidemia MOR (obstructive sleep apnea) Obstructive sleep apnea (adult) (pediatric) documented in this encounter Additional Health Concerns Assessment Noted Time PHQ-9 Depression Total Score: 0 10/11/19 22 10:50 AM CITIZENSHIP INSTRUCTOR documented as of this encounter Care Teams Beauty Culturist Relationship Specialty Start Date End Date Sami Liriano DO [address] [place] [address] PCP - General FAMILY PRACTICE 12/24/19 documented as of this encounter
--- OUTSIDE RECORDS SUMMARY | 2024-09-19 12:13 | XMS_ITS | Encounter Summary ---
Author Organization [facility] Address [facility] [place], [place] [address] [place] [address] Care Team Providers Care Directional Bore Operator Name Role Phone Sami Liriano Primary Care Provider + Reason for Visit * Reason Onset Date Comments Lab Order 02/11/2024 Bmp Encounter Details Date Type Department Care Team (Late st Contact Info) Description 02/11/2024 Telephone [facility], [address] [place], [place] [phone] Carlos Farris MD [facility] [address] [place] [address] Lab Order (Bmp ) Social History Tobacco Use Types Packs/Day Years Used Date Smoking Tobacco: Former Cigarettes 0.5 12 0 09/30/1964 - 09/30/1976 Passive Smoke Exposure: Never Smokeless Tobacco: Never Alcohol Use Standard Drinks/Week Comments Not Currently 0 (1 standard drink = 0.6 oz pur e alcohol) 2 cocktails on some Sundays [facility] Utilities Answer Date Recorded In the [...] any time in the past 12 m [facility], were you homeless or living in a skilled nursing (including now)? 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 Not on file [...] Author Status No 02/08/2024 12:30 AM CDT Chritsa Hodgson RN Active * Do you have [...] documented in this encounter Progress Notes * Melita Tenorio - 02/11/2024 10:11 AM CDT ----- Message from Carlos Farris MD sent at 02/11/2024 9:23 AM CDT ----- BMP 1 week F/u in [place] next week documented in this encounter Plan of Treatment Upcoming Encounters Date Type Department Care Team (Late st Contact Info) Description 10/09/2024 9:30 AM CELL TOWER CLIMBER Office Visit [facility] [address] Carlos Farris MD [address] [facility] [address] [place] [address] 11/02/2024 10:20 AM CELL TOWER CLIMBER Office Visit [facility] Medical Group Family & Internal Medicine - [place] [address] [place] [address] Sami Liriano DO [address] [place] [address] documented as of this encounter Goals Goal [...] Total Score: 0 10/11/19 22 10:50 AM CELL TOWER CLIMBER documented as of this encounter Care Teams Directional Bore Operator Relationship Specialty Start Date End Date Sami Liriano DO [address] [place] [address] PCP - General FAMILY PRACTICE 12/24/19 documented as of this encounter
--- OUTSIDE RECORDS SUMMARY | 2024-09-19 12:13 | XMS_ITS | Encounter Summary ---
Author Organization [facility] Address [facility]. [place], [place] [address] [place] [address] Care Team Providers Care Pillow Agent Name Role Phone Sami Liriano DO Primary Care Provider + Encounter Details Date Type Department Care Team (Late st Contact Info) Description 03/24/2024 10:20 AM CDT Laboratory Only [facility] Family & Internal [facility] [address] [place] [address] Sami Liriano DO [facility] [place], [place] [id number] Social History Tobacco Use Types Packs/Day Years Used Date Smoking Tobacco: Former Cigarettes 0.5 12 0 09/30/1964 - 09/30/1976 Passive Smoke Exposure: Never Smokeless Tobacco: Never Alcohol Use Standard Drinks/Week Comments Not Currently 0 (1 standard drink = 0.6 oz pur e alcohol) 2 cocktails on some Sundays [facility] Utilities Answer Date Recorded In [...] any time in the past 12 m [facility], were you homeless or living in a skilled nursing (including now)? No 02/08/2024 Comments No Sex and Gender Information Value Date Recorded Sex Assigned at Not on file Legal Sex Female 12:43 PM COMMERCIAL LOAN COLLECTION OFFICER Gender Identity Female 12/18/2021 6:31 AM CDT [...] st Contact Info) Description 10/09/2024 9:30 AM COMMERCIAL LOAN COLLECTION OFFICER Office Visit [facility] [phone] Carlos Farris MD [facility] Suite [facility] [place] [address] 11/02/2024 10:20 AM COMMERCIAL LOAN COLLECTION OFFICER Office Visit [facility] Medical Group Family & Internal Medicine - [address] [phone] Sami Liriano, [address] [place] [address] documented as of this encounter Goals Goal Patient Goal Type Associated Problems Recent Progress Patient-Stated? Author Patient will return to prior living situation and remain independent in ADLs upon discharge from hospital Sylvia Chávez RN documented as of this encounter Procedures Procedure Name Priority Date/Time Associated Diagnosis Comments VENIPUNC ARM DRAW Routine 03/24/2024 10: 57 AM CDT Acute on chronic heart failure with preserved ejection fraction (CMS/HCC HHS/HCC) Acute heart failure, unspecified heart failure type (CMS/HCC HHS/HCC) Renal failure COMPREHENSIVE METABOLIC PANEL Routine 03/24/2024 10:56 AM CDT Acute on chronic heart failure with preserved ejection fraction (CMS/HCC HHS/HCC) Acute heart failure, unspecified heart failure type (CMS/HCC HHS/HCC) Renal failure CBC W/DIFF AUTOMATED Routine 03/24/2024 10:56 AM CDT Acute on chronic heart failure with preserved ejection fraction (CMS/HCC HHS/HCC) Acute heart failure, unspecified heart failure type (CMS/HCC HHS/HCC) Renal failure MAGNESIUM Routine 03/24/2024 10:56 AM CDT Acute on chronic heart failure with preserved ejection fraction (CMS/HCC HHS/HCC) Acute heart failure, unspecified heart failure type (CMS/HCC HHS/HCC) Renal failure documented in this encounter Results * (ABNORMAL) CBC W/DIFF AUTOMATED (03/24/2024 10:56 AM CDT) WBC 10.07 4.00 - 10.80 x10'3/uL 03/24/2024 3:00 PM CDT [facility] RBC 4.55 4.10 - 5.40 x10'6/uL 03/24/2024 3:00 PM CDT [facility] HGB 12.8 12.0 - 16.0 G/DL 03/24/2024 3:00 PM CDT [facility] HCT 39.0 36.0 - 47.0 % 03/24/2024 3:00 PM CDT [facility] MCV 85.7 78.0 - 100.0 FL 03/24/2024 3:00 PM CDT [facility] MCH 28.1 27.0 - 31.0 PG 03/24/2024 3:00 PM CDT [facility] MCHC 32.8(L) 33.0 - 36.0 G/DL 03/24/2024 3:00 PM CDT [facility] RDW 14.5 11.5 - 14.5 % 03/24/2024 3:00 PM CDT [facility] PLT 274 150 - 350 x10'3/uL 03/24/2024 3:00 PM CDT [facility] MPV 10.0 7.4 - 10.4 FL 03/24/2024 3:00 PM CDT [facility] DIFFERENTIAL TYPE AUTOMATED DIFFERENTIAL 03/24/2024 3:00 PM CDT [facility] NEUTROPHILS % 54.7 % 03/24/2024 3:00 PM CDT [facility] LYMPHOCYTES % 35.0 % 03/24/2024 3:00 PM CDT [facility] MONOCYTES % 8.2 % 03/24/2024 3:00 PM CDT [facility] EOSINOPHILS % 1.6 % 03/24/2024 3:00 PM CDT [facility] BASOPHILS % 0.3 % 03/24/2024 3:00 PM CDT [facility] IMMATURE GRANS % 0.2 % 03/24/2024 3:00 PM CDT [facility] ABS. NEUTROPHILS 5.51 1.60 - 8.30 x10'3/uL 03/24/2024 3:00 PM CDT [facility] ABS. LYMPHOCYTES 3.52 0.80 - 4.70 x10'3/uL 03/24/2024 3:00 PM CDT [facility] ABS. MONOCYTES 0.83 0.00 - 1.50 x10'3/uL 03/24/2024 3:00 PM CDT [facility] ABS. EOSINOPHILS 0.16 0.00 - 0.40 x10'3/uL 03/24/2024 3:00 PM CDT [facility] ABS. BASOPHILS 0.03 0.00 - 0.20 x10'3/uL 03/24/2024 3:00 PM CDT [facility] ABS. IMMATURE GRANULOCYTES 0.02 0.00 - 0.03 x10'3/uL 03/24/2024 3:00 PM CDT [facility] 03/24/2024 10:5 6 AM CDT Sami Liriano DO LABORATORY Final Re sult [facility] [address] [place] [address], * (ABNORMAL) COMPREHENSIVE METABOLIC PANEL (03/24/2024 10:56 AM CDT) Pathologist [facility] SODIUM S/P/B 142 136 - 145 MMOL/L 03/24/2024 3:47 PM CDT [facility] POTASSIUM S/P/B 4.6 3.5 - 5.1 MMOL/L 03/24/2024 3:47 PM CDT [facility] CHLORIDE S/P/B 105 98 - 107 MMOL/L 03/24/2024 3:47 PM CDT [facility] CO2 28.0 21 - 32 MMOL/L 03/24/2024 3:47 PM CDT [facility] GLUCOSE 118(H) 70 - 99 MG/DL 03/24/2024 3:47 PM CDT [facility] BUN 34(H) 7 - 18 MG/DL 03/24/2024 3:47 PM CDT [facility] CREATININE S/P/B 1.35(H) 0.55 - 1.02 MG/DL 03/24/2024 3:47 PM CDT [facility] CALCIUM S/P/B 9.3 8.4 - 10.5 MG/DL 03/24/2024 3:47 PM CDT [facility] BILIRUBIN TOTAL S/P/B 1.7(H) 0.2 - 1.0 MG/DL 03/24/2024 3:47 PM CDT [facility] ALKALINE PHOSPHATASE S/P/B 85 55 - 142 U/L 03/24/2024 3:47 PM CDT [facility] AST 15 15 - 37 U/L 03/24/2024 3:47 PM CDT [facility] ALT 21 14 - 59 U/L 03/24/2024 3:47 PM CDT [facility] TOTAL PROTEIN S/P/B 7.3 6.4 - 8.2 G/DL 03/24/2024 3:47 PM CDT [facility] ALBUMIN S/P/B 4.0 3.4 - 5.0 G/DL 03/24/2024 3:47 PM CDT [facility] ANION GAP 9.0 5 - 15 MMOL/L 03/24/2024 3:47 PM T [facility] Comment:REFERENCE RANGE NOT ESTABLISHED OSMOLALITY (CALC) 303 MOSM/KG 024 3:47 PM CDT [facility] Comment:REFERENCE RANGE NOT ESTABLISHED GFR ESTIMATE 42(L) >90 ML/MIN/1. 73 M2 03/24/2024 3:47 PM CDT [facility] GFR NOTES GFR REFERENCE S: 03/24/2024 3:47 PM T [facility] Comment: THE ESTIMATED GFR IS CALCULATED USING [...] LABORATORY Final Re sult Performing Organization Address City/[facility]/ZIP Co de Phone Number [facility] [address] [place] [address], [place] [phone] * MAGNESIUM (03/24/2024 10:56 AM CDT) MAGNESIUM 2.0 1.8 - 2.4 MG/DL 03/24/2024 3:47 PM CDT [facility] 03/24/2024 10:5 6 AM CDT Sami Liriano DO LABORATORY Final Re sult Performing Organization Address City/[facility]/ZIP Co de Phone Number [place] [id number] [place] [address], [place] [phone] documented in this encounter Visit Diagnoses Diagnosis Acute on chronic heart failure with preserved ejection fraction ([facility] HHS/HCC) Acute heart failure, unspecified heart failure type ([facility] HHS/[facility]) Renal failure Renal failure, unspecified documented in this encounter Additional Health Concerns Assessment Noted Time PHQ-9 Depression Total Score: 0 10/11/19 22 10:50 AM COMMERCIAL LOAN COLLECTION OFFICER documented as of this encounter Care Teams Pillow Agent Relationship Specialty Start Date End Date Sami Liriano DO [address] [place] [address] PCP - General FAMILY PRACTICE 12/24/19 documented as of this encounter
--- OUTSIDE RECORDS SUMMARY | 2024-09-19 12:13 | XMS_ITS | Encounter Summary ---
Author Organization [facility] Address [facility] [place] [address] [place] [address] Care Team Providers Care Damage Appraiser Name Role Phone Sami Liriano Primary Care Provider + Encounter Details Date Type Department Care Team (Latest Contact Info) Description 02/21/2024 7:54 AM T - 02/21/2024 11:59 PM [facility] Hospital Encounter [facility] [address] [place] [address] Carlos Farris MD [facility] Suite [facility] [place], [place] [phone] Discharge Disposition: Home or Self Care (Routine Discharge) Social History Tobacco Use Types Packs/Day Years Used Date Smoking Tobacco: Former Cigarettes 0.5 12 0 09/30/1964 - 09/30/1976 Passive Smoke Exposure: Never Smokeless Tobacco: Never Alcohol Use Standard Drinks/Week Comments Not Currently 0 (1 standard drink = 0.6 oz pur e alcohol) 2 cocktails on some Sundays [facility] Utilities Answer Date Recorded In the [...] any time in the past 12 m [facility], were you homeless or living in a fpc (including now)? 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 albuterol (PROVENTIL) (2.5 MG/3ML) 0.083% nebulizer solutionIndications :Mucopurulent chronic bronchitis ([facility]),Chronic bronchitis, unspecified chronic bronchitis type ([facility]),Bronchitis ,Wheezing Take 3 mLs (2.5 mg total) by nebulization every 6 (six) hours as needed for Wheezing. 360 mL albuterol sulfate HFA 108 (90 Base) MCG/ACT [...] of major depressive disorder without prior episode ([facility]) TAKE 1 TABLET BY MOUTH EVERY DAY 90 tablet 1 3 ipratropium-albuter ol (DUONEB) 0.5-2.5 (3) MG/3ML Solution Take 3 mLs by nebulization. 4 magnesium oxide (MAG-OX) 400 (240 Mg) MG tablet Take 1 tablet (400 mg total) by mouth 2 (two) times daily. Budeson-Glycopyrrol -Formoterol (BREZTRI AEROSPHERE) 160-9-4.8 MCG/ACT AerosolIndications: Mucopurulent chronic bronchitis ([facility]) Inhale 2 Inhalations into the lungs 2 (two) times a day. 10.7 g 2 4 07/30/20 24 hydrOXYzine (ATARAX) 25 MG tabletIndications:C ontact dermatitis, unspecified contact dermatitis type, unspecified trigger Take 1 tablet (25 mg total) by mouth 3 (three) times daily as needed for Itching. Do not take with Benadryl. 30 tablet 4 02/27/20 24 lisinopril (PRINIVIL) 20 MG tablet Take 1 tablet (20 mg total) by mouth daily for 30 days. 30 tablet 4 03/18/20 24 metFORMIN ER (GLUCOPHAGE-XR) 500 MG 24 hr tabletIndications:T ype 2 diabetes mellitus without complication, without long-term current use of insulin ([facility]) take 1 tablet by mouth every day with breakfast 90 tablet 4 04/30/20 24 NEBULIZER DEVICE, DME,Indications:Muc opurulent chronic bronchitis ([facility]) Take 1 Device by nebulization every 6 (six) hours as needed. 1 Device 4 07/06/20 24 NEBULIZER/TUBING/MO UTHPIECE KIT, DME,Indications:Muc opurulent chronic bronchitis ([facility] HHS/HCC) 1 kit by Other route every 6 (six) hours as needed. 1 kit 4 07/06/20 24 potassium chloride CR (K-TAB) 10 MEQ Tab CR tabletIndications:B ilateral lower extremity edema TAKE ONE TABLET DAILY Patient must be seen for further refills 30 tablet 2 03/02/20 24 predniSONE (DELTASONE) 20 MG tabletIndications:C ontact dermatitis, unspecified contact dermatitis type, unspecified trigger Take 3 tablets for three days, then take 2 tablets for three days, then take 1 tablet for three days 18 tablet 4 02/27/20 24 spironolactone (ALDACTONE) 25 MG tablet Take 0.5 tablets (12.5 mg total) by mouth daily for 30 days. 15 tablet 4 03/11/20 24 tiZANidine (ZANAFLEX) 2 MG tabletIndications:M uscle spasm TAKE 1 TABLET(2 MG) BY MOUTH EVERY 6 HOURS NEEDED 20 tablet 4 04/06/20 24 torsemide (DEMADEX) 20 MG tabletIndications:A cute on chronic heart failure with preserved ejection fraction ([facility] HHS/HCC) Take 2 tablets (40 mg total) by mouth daily. 60 tablet 2 4 07/06/20 24 traMADol (ULTRAM) 50 MG tabletIndications:C hronic Pain Take 1 tablet (50 mg total) by mouth every 6 (six) hours as needed for Pain. Indications: Chronic Pain 60 tablet 2 04/22/20 24 documented as of this encounter Plan of Treatment Upcoming Encounters Date Type Department Care Team (Late st Contact Info) Description 10/09/2024 9:30 AM SENIOR MANAGER ASSET PROTECTION Office Visit [facility] [phone] Carlos Farris MD [facility] [address] [place] [address] 11/02/2024 10:20 AM SENIOR MANAGER ASSET PROTECTION Office Visit [facility] Group Family & Internal Medicine [facility] [address] [place] [address] Sami Liriano DO [address] [place] [address] documented as of this encounter Goals Goal Patient Goal Type Associated Problems Recent Progress Patient-Stated? Author Patient will return to prior living situation and remain independent in ADLs upon discharge from hospital Lifestyle Sylvia Carvajal RN documented as of this encounter Procedures Procedure Name Priority Date/Time Associated Diagnosis Comments BASIC METABOLIC PANEL Routine 02/21/2024 2:55 PM CDT documented in this encounter Results * (ABNORMAL) BASIC METABOLIC PANEL (02/21/2024 2:55 PM CDT) SODIUM S/P/B 140 136 - 145 MMOL/L 02/22/2024 8:17 AM CDT [facility] POTASSIUM S/P/B 4.2 3.5 - 5.1 MMOL/L 02/22/2024 8:17 AM CDT [facility] CHLORIDE S/P/B 110(H) 98 - 107 MMOL/L 02/22/2024 8:17 AM CDT [facility] CO2 23.9 21.0 - 32.0 MMOL/L 02/22/2024 8:17 AM CDT [facility] GLUCOSE 146(H) 74 - 106 MG/DL 02/22/2024 8:17 AM CDT [facility] BUN 28(H) 7 - 18 MG/DL 02/22/2024 8:17 AM CDT [facility] CREATININE S/P/B 1.26(H) 0.55 - 1.02 MG/DL 02/22/2024 8:17 AM CDT [facility] CALCIUM S/P/B 9.2 8.5 - 10.1 MG/DL 02/22/2024 8:17 AM CDT [facility] ANION GAP 6.1 5.0 - 15.0 MMOL/L 02/22/2024 8:17 AM CDT [facility] OSMOLALITY (CALC) 298 MOSM/KG 024 8:17 AM CDT [facility] Comment:REFERENCE RANGE NOT ESTABLISHED GFR ESTIMATE 46(L) >90 ML/MIN/1. 73 M2 02/22/2024 8:17 AM CDT [facility] GFR NOTES GFR REFERENCE S: 02/22/2024 8:17 AM CDT [facility] Comment: THE ESTIMATED GFR IS CALCULATED USING [...] ml/min/1.73 m2 G5,KIDNEY FAILURE: <15 ml/min/1.73 m2 02/21/2024 2:55 PM CDT us Carlos Farris MD LABORATORY Final Resul t [facility] [address] [place] [address], [id number] documented in this encounter Visit Diagnoses Not on filedocumented in this encounter Additional Health Concerns Assessment Noted Time PHQ-9 Depression Total Score: 0 10/11/19 22 10:50 AM SENIOR MANAGER ASSET PROTECTION documented as of this encounter Care Teams Damage Appraiser Relationship Specialty Start Date End Date Sami Liriano DO [address] [place] [address] PCP - General FAMILY PRACTICE 12/24/19 documented as of this encounter
--- OUTSIDE RECORDS SUMMARY | 2024-09-19 12:13 | XMS_ITS | Encounter Summary ---
Author Organization [facility] Address [facility]. [place], [place] [address] [place] [address] Care Team Providers Care Nuclear Medicine Physician Name Role Phone Sami Liriano Primary Care Provider + Reason for Visit * Reason Onset Date Comments Medication Information 07/06/2024 Insurance will not cover soaan Encounter Details Date Type Department Care Team (Late st Contact Info) Description 07/06/2024 Telephone [facility] [address] Ashley Gaitan, DIRECTOR OF INFECTION CONTROL Medication Information (Insurance will not cover soaanz) Social History Tobacco Use Types Packs/Day Years Used Date Smoking Tobacco: Former Cigarettes 0.5 12 0 09/30/1964 - 09/30/1976 Passive Smoke Exposure: Never Smokeless Tobacco: Never Alcohol Use Standard Drinks/Week Comments Not Currently 0 (1 standard drink = 0.6 oz pur e alcohol) 2 cocktails on some Sundays [facility] Utilities Answer Date Recorded In the past [...] on file Legal Sex Female 12:43 PM BOILER REPAIR SUPERVISOR Gender Identity Female 12/18/2021 6:31 AM CDT Sexual Orientation Straight 01/15/2022 6: 11 AM CDT 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 Insurance ill not cover Medicine changed to torsemide 20mg 2 tablet twice a day for 90days, per provider. ki documented in this encounter Plan of Treatment Upcoming Encounters Date Type Department Care Team (Late st Contact Info) Description 10/09/2024 9:30 AM BOILER REPAIR SUPERVISOR Office Visit [facility] [phone] Carlos Farris MD [facility] [address] [place] [address] 11/02/2024 10:20 AM BOILER REPAIR SUPERVISOR Office Visit [facility] Group Family & Internal Medicine [address] [address] Sami Liriano DO [address] [place] [address] documented as of this encounter Goals Goal Patient Goal Type Associated Problems Recent Progress Patient-Stated? Author Patient will return to prior living situation and remain independent in ADLs upon discharge from hospital Lifestyle No Sylvia Ventura, RN documented as of this encounter Visit Diagnoses Diagnosis Acute on chronic heart failure with preserved ejection fraction (CMS/HCC HHS/HCC) documented in this encounter Additional Health Concerns Assessment Noted Time PHQ-9 Depression Total Score: 0 10/11/19 22 10:50 AM BOILER REPAIR SUPERVISOR documented as of this encounter Care Teams Nuclear Medicine Physician Relationship Specialty Start Date End Date Sami Liriano DO [address] [place] [address] PCP - General FAMILY PRACTICE 12/24/19 documented as of this encounter
--- OUTSIDE RECORDS SUMMARY | 2024-09-19 12:13 | XMS_ITS | Encounter Summary ---
Author Organization [facility] Address [facility]6 [facility]. [place], [place] [address] [place] [address] Care Team Providers Care Chucking Machine Operator Name Role Phone Sami Liriano Nicole AGUIAR Primary Care Provider + Encounter Details Date Type Department Care Team (Latest Contact Info) Description 02/21/2024 Travel Social History Tobacco Use Types Packs/Day Years Used Date Smoking Tobacco: Former Cigarettes 0.5 12 0 09/30/1964 - 09/30/1976 Passive Smoke Exposure: Never Smokeless Tobacco: Never Alcohol Use Standard Drinks/Week Comments Not Currently 0 (1 standard drink = 0.6 oz pur e alcohol) 2 cocktails on some Sundays [facility] Utilities Answer Date Recorded In the past 12 months has e electric, gas, oil, or water [employer] threatened to shut off services in your [...] were you homeless or living in a mcc (including now)? 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 on file Not [...] st Contact Info) Description 10/09/2024 9:30 AM CLIENT SERVICES SPECIALIST Office Visit [facility] [phone] Carlos Farris MD [facility] Suite [facility] [place] [address] 11/02/2024 10:20 AM CLIENT SERVICES SPECIALIST Office Visit [facility] Family & Internal Medicine - [address] [phone] Sami Liriano DO [address] [place] [address] documented as of this encounter Goals Goal [...] Total Score: 0 10/11/19 22 10:50 AM CLIENT SERVICES SPECIALIST documented as of this encounter Care Teams Chucking Machine Operator Relationship Specialty Start Date End Date Sami Liriano DO [address] [place] [address] PCP - General FAMILY PRACTICE 12/24/19 documented as of this encounter
--- OUTSIDE RECORDS SUMMARY | 2024-09-19 12:13 | XMS_ITS | Encounter Summary ---
Author Organization [facility] Address [facility]. [place], [place] [address] [place] [address] Care Team Providers Care Feather Mixer Name Role Phone Sami Liriano Nicole AGUIAR Primary Care Provider + Encounter Details Date Type Department Care Team (Latest Contact Info) Description 03/24/2024 Travel Social History Tobacco Use Types Packs/Day Years Used Date Smoking Tobacco: Former Cigarettes 0.5 12 0 09/30/1964 - 09/30/1976 Passive Smoke Exposure: Never Smokeless Tobacco: Never Alcohol Use Standard Drinks/Week Comments Not Currently 0 (1 standard drink = 0.6 oz pur e alcohol) 2 cocktails on some Sundays [facility] Utilities Answer Date Recorded In the past 12 months has e electric, gas, oil, or water [employer] threatened to shut off services in your [...] any time in the past 12 m [facility], were you homeless or living in a nursing home (including now)? No 02/08/2024 Comments No Sex and Gender Information Value Date Recorded Sex Assigned at Not on file Legal Sex Female 12:43 PM MILK TRUCK DRIVER Gender Identity Female 12/18/2021 6:31 AM CDT [...] st Contact Info) Description 10/09/2024 9:30 AM MILK TRUCK DRIVER Office Visit [facility]-[address] [phone] Carlos Farris MD [facility] Suite [facility] [place] [address] 11/02/2024 10:20 AM MILK TRUCK DRIVER Office Visit [facility] Family & Internal Medicine - [address] [phone] Sami Liriano DO [address] [place] [address] documented as of this encounter Goals Goal [...] Total Score: 0 10/11/19 22 10:50 AM MILK TRUCK DRIVER documented as of this encounter Care Teams Feather Mixer Relationship Specialty Start Date End Date Sami Liriano DO [address] [place] [address] PCP - General FAMILY PRACTICE 12/24/19 documented as of this encounter
--- OUTSIDE RECORDS SUMMARY | 2024-09-19 12:13 | XMS_ITS | Encounter Summary ---
Author Organization [facility] Address [facility]. [place], [place] [address] [place] [address] Care Team Providers Care Manager Equipment Name Role Phone Sami Liriano Primary Care Provider + Encounter Details Date Type Department Care Team (Late st Contact Info) Description 07/06/2024 Orders Only [facility], [place] [address] [place], [place] [phone] Carlos Farris MD Three [facility] [address] [place], [place] [phone] Social History Tobacco Use Types Packs/Day Years Used Date Smoking Tobacco: Former Cigarettes 0.5 12 0 09/30/1964 - 09/30/1976 Passive Smoke Exposure: Never Smokeless Tobacco: Never Alcohol Use Standard Drinks/Week Comments Not Currently 0 (1 standard drink = 0.6 oz pur e alcohol) 2 cocktails on some Sundays [facility] Utilities Answer Date Recorded In the [...] time in the past [address] [facility], were you homeless or living in a chcf (including now)? 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 Not on file [...] Contact Info) Description 10/09/2024 9:30 AM SENIOR BI ARCHITECT Office Visit [facility] [phone] Carlos Farris MD [facility] [address] [place] [address] 11/02/2024 10:20 AM SENIOR BI ARCHITECT Office Visit [facility] Medical Group Family & Internal Medicine - [address] [phone] Sami Liriano DO [address] [place] [address] documented as of this encounter Goals Goal [...] Score: 0 10/11/19 22 10:50 AM SENIOR BI ARCHITECT documented as of this encounter Care Teams Manager Equipment Relationship Specialty Start Date End Date Sami Liriano DO [address] [place] [address] PCP - General FAMILY PRACTICE 12/24/19 documented as of this encounter
--- OUTSIDE RECORDS SUMMARY | 2024-09-19 12:13 | XMS_ITS | Encounter Summary ---
Author Organization [facility] Address [facility]. [place], [place] [address] [place] [address] Care Team Providers Care Office Services Coordinator Name Role Phone Sami Liriano Primary Care Provider + Reason for Visit * Reason Comments CHF Hospital follow up Encounter Details Date Type Department Care Team (Latest Contact Info) Description 02/21/2024 2:30 PM CDT Office Visit [facility] [phone] Carlos Farris MD [facility] [address] [place] [address] CHF (Hospital follow up) Social History Tobacco Use Types Packs/Day Years Used Date Smoking Tobacco: Former Cigarettes 0.5 12 0 09/30/1964 - 09/30/1976 Passive Smoke Exposure: Never Smokeless Tobacco: Never Alcohol Use Standard Drinks/Week Comments Not Currently 0 (1 standard drink = 0.6 oz pur e alcohol) 2 cocktails on some Sundays [facility] Utilities Answer Date Recorded In the [...] in the past 12 m [facility], were you homeless or living in a halfway (including now)? 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 [facility] [place], [place] [address] Cardiology Consult PCP: Sami Liriano, Cardiac Problem List HTN HFpEF HLD Former Smoker Interval History Since discharge her weight increased by 5 [...] she takes all her medication at once. History Ms. Jolly Sargent is a 69-year-old female. Patient was seen in clinic for [...] of left knee 11/08/2019 Depression Diabetes mellitus ([facility]) GERD (gastroesophageal reflux disease) Hypertension Overactive bladder Positive colorectal cancer screening using Cologuard test 04/19/2020 Added automatically from request for surgery [id number] Past Surgical History: Procedure Laterality Date ANKLE SURGERY left SECTION COLONOSCOPY N/A 04/27/2020 COLONOSCOPY WITH BIOPSY X 3 performed by Joel Keenan MD at [facility] OR COLONOSCOPY N/A 11/20/2023 Colonoscopy with Polypectomies performed by Joel Keenan MD at [facility] OR EGD EYE SURGERY FRACTURE SURGERY HERNIA [...] hours as needed for Wheezing. 12/06/23 Sami Liriano, DO albuterol sulfate HFA 108 (90 Base) MCG/ACT inhaler Inhale 2 puffs into the lungs every 4 (four) hours as needed for Wheezing or Shortness of breath. 07/26/23 Sami Liriano DO atorvastatin (LIPITOR) 10 MG tablet take 1 tablet by mouth every day at night Patient taking differently: Take 1 tablet (10 mg total) by mouth daily. 10/21/23 Sami Liriano DO Sedajos-Lahrwoatcdy-Vhckrqqnfa (BREZTRI AEROSPHERE) 160-9-4.8 MCG/ACT Aerosol Inhale 2 [...] for Itching. Do not take with Benadryl. 02/17/24 02/27/24 Sami Liriano DO ipratropium-albuterol (DUONEB) 0.5-2.5 (3) MG/3ML Solution Take 3 mLs by nebulization. 12/06/23 Default History Genericprovider lisinopril (PRINIVIL) 20 MG tablet Take 1 tablet (20 mg total) by mouth daily for 30 days. 02/12/24 03/13/24 Vianey Yang, magnesium oxide (MAG-OX) 400 (240 Mg) MG tablet Take 1 tablet (400 mg total) by mouth 2 (two) timesdaily. Default History Genericprovider metFORMIN ER (GLUCOPHAGE-XR) 500 MG 24 hr tablet take 1 tablet by mouth every day with breakfast 01/28/24 Sami Liriano DO NEBULIZER DEVICE, DME, Take 1 Device by nebulization every 6 (six) hours as needed. 11/18/23 Margarita Liriano DO NEBULIZER/TUBING/MOUTHPIECE KIT, DME, 1 kit by Other route every 6 (six) hours as needed. 11/18/23 Sami Liriano DO potassium chloride CR (K-TAB) 10 MEQ Tab CR tablet TAKE ONE TABLET DAILY Patient must be seen for further refills Patient taking differently: Take 1 tablet (10 mEq total) by mouth daily. 09/25/22 Sami Liriano DO predniSONE (DELTASONE) 20 MG tablet Take 3 tablets for three days, then take 2 tablets for three days, then take 1 tablet for three days 02/17/24 Sami Liriano DO spironolactone (ALDACTONE) 25 MG tablet Take 0.5 tablets (12.5 mg total) by mouth daily for 30 days. 02/12/24 03/13/24 Vianey Yang DO tiZANidine (ZANAFLEX) 2 MG tablet TAKE 1 TABLET(2 MG) BY MOUTH EVERY 6 HOURS NEEDED Patient taking differently: Take 1 tablet (2 mg total) by mouth every 6 (six) hours as needed (spasms). 01/21/24 Sami Liriano DO torsemide (DEMADEX) 20 MG tablet Take 2 tablets (40 mg total) by mouth daily. 02/17/24 Sami Liriano DO traMADol (ULTRAM) 50 MG [...] as per HPI. Physical Exam Filed Vitals: 02/21/24 1432 BP: 138/70 Pulse: 72 SpO2: 95% Weight: 112 kg (247 lb) Height: 1.524 m (5') Body mass index is 48.24 kg/m??. Physical Exam: General: NAD, Appears Normal Stated Age HEENT: PEERL, EOMI, MMM NECK: No JVD CVS: RRR, no MRG Resp: CTAB ABD: Soft, NT, ND, +BS Ext: No CC ,Trace edema Neuro: Non Focal Psych: Normal Affect Diagnostic Data Lab Results Component Value Date/Time WBC 13.12 (H) 02/17/2024 11:48 AM HGB 12.2 02/17/2024 11:48 AM HCT 38.4 02/17/2024 11:48 AM PLT 293 02/17/2024 11:48 AM NA 138 02/17/2024 11:48 AM CL 101 02/17/2024 11:48 AM K 5.0 02/17/2024 11:48 AM GLU 122 (H) 02/17/2024 11:48 AM BUN 47 (H) 02/17/2024 11:48 AM CR 2.24 (H) 02/17/2024 11:48 AM CA 9.8 02/17/2024 11:48 AM MAGNESIUM 2.5 (H) 02/17/2024 11:48 AM AST 24 02/17/2024 11:48 AM ALT 28 02/17/2024 11:48 AM ALB 4.3 02/17/2024 11:48 AM Lab Results Component Value Date CHOL [...] Assessment/Plan HFpEF HLD HTN BOONE Former Smoker In regards to her HFpEF, she appears volume overloaded. Her Weight is up to 247, was 240 on discharge. Echocardiogram with EF 60 to 65%. She is on Aldactone 12.5 mg once daily for goal-directed medical therapy. She will continue torsemide 40 mg QD. Her labs from 02/16 showed a Cr of 2.24, which is asignificant increase. Her torsemide was increased on the same day her labs were done. We will repeat a BMP today prior to making any changes to her medication regimen. In regards to her hyperlipidemia she will continue her atorvastatin 10 mg QD. Regards to her hypertension she is on Aldactone 12.5 mg daily, and lisinopril 20 mg daily. We may have to adjust her antihypertensive regimen if her Cr remains elevated. Follow-up: 1 month Thank you for allowing me to participate in the care of this patient. Please reach out with any questions. Carlos Farris MD Portions of this note were dictated using [employer] speech recognition software. Occasional wrong wordor sound-alike substitutions may have occurred due to the inherent limitations of voice recognition software. Please read the chart carefully and recognize, using context, where the substitutions may have occurred. documented in this encounter Plan of Treatment Upcoming Encounters Date Type Department Care Team (Late st Contact Info) Description 10/09/2024 9:30 AM JOINT FILLER Office Visit [facility] [phone] Carlos Farris MD Three [facility] [address] [place] [address] 11/02/2024 10:20 AM JOINT FILLER Office Visit [facility] Medical Group Family & Internal Medicine - [address] [phone] Sami Liriano DO [address] [place] [address] documented as of this encounter Goals Goal Patient Goal Type Associated Problems Recent Progress Patient-Stated? Author Patient will return to prior living situation and remain independent in ADLs upon discharge from hospital Lifestyle Sylvia Carvajal RN documented as of this encounter Visit Diagnoses Diagnosis Acute heart failure, unspecified heart failure type ([facility]/HCC [facility])- Primary Essential (primary) hypertension Unspecified essential hypertension Dyslipidemia Other and unspecified hyperlipidemia documented in this encounter Additional Health Concerns Assessment Noted Time PHQ-9 Depression Total Score: 0 10/11/19 22 10:50 AM JOINT FILLER documented as of this encounter Care Teams Office Services Coordinator Relationship Specialty Start Date End Date Sami Liriano DO [address] [place] [address] PCP - General FAMILY PRACTICE 12/24/19 documented as of this encounter
--- OUTSIDE RECORDS SUMMARY | 2024-09-19 12:13 | XMS_ITS | Encounter Summary ---
Author Organization [facility] Address [facility]. [place], [place] [address] [place] [address] Care Team Providers Care Endoscope Technician Name Role Phone Sami Liriano DO Primary Care Provider + Reason for Visit * Reason Onset Date Comments Quality Gap Closure 06/15/2024 Record Request 06/15/2024 Encounter Details Date Type Department Care Team (Late st Contact Info) Description 06/15/2024 Telephone [facility] Medical [facility] Family & Internal Medicine [phone] [place] [address] Sami Liriano DO [address] [place] [phone] Quality Gap Closure; Record Request Social History Tobacco Use Types Packs/Day Years Used Date Smoking Tobacco: Former Cigarettes 0.5 12 0 09/30/1964 - 09/30/1976 Passive Smoke Exposure: Never Smokeless Tobacco: Never Alcohol Use Standard Drinks/Week Comments Not Currently 0 (1 standard drink = 0.6 oz pur e alcohol) 2 cocktails on some Sundays [facility] Utilities Answer Date Recorded In the [...] time in the past 12 m [facility], were you homeless or living in a fci (including now)? 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 on file Not [...] documented in this encounter Progress Notes * Yumiko Ayers MA - 06/15/2024 3:05 PM CDT Checking with [facility] for a recent DM eye exam report Requesting a 2nd time on 07/30/2024 Requesting a 3rd time on 08/31/2024 EMS DESIGN ENGINEER documented in this encounter Plan of Treatment Upcoming Encounters Date Type Department Care Team (Late st Contact Info) Description 10/09/2024 9:30 AM SYSTEMS DESIGN ENGINEER Office Visit [facility] [phone] Carlos Farris MD Three [facility] [address] [place] [address] 11/02/2024 10:20 AM SYSTEMS DESIGN ENGINEER Office Visit [facility] Medical Group Family & Internal Medicine - [address] [phone] Sami Liriano DO [address] [place] [address] documented as of this encounter Goals Goal [...] Total Score: 0 10/11/19 22 10:50 AM SYSTEMS DESIGN ENGINEER documented as of this encounter Care Teams Endoscope Technician Relationship Specialty Start Date End Date Sami Liriano DO [address] [place] [address] PCP - General FAMILY PRACTICE 12/24/19 documented as of this encounter
--- OUTSIDE RECORDS SUMMARY | 2024-09-19 12:13 | XMS_ITS | Encounter Summary ---
Author Organization [facility] Address [facility] [place], [place] [address] [place] [address] Care Team Providers Care Offset Lithographic Press Setter Name Role Phone Sami Liriano DO Primary Care Provider + Reason for Visit * Reason Onset Date Comments Results 02/20/2024 Encounter Details Date Type Department Care Team (Late st Contact Info) Description 02/20/2024 Telephone [facility] Medical Group Family & Internal Medicine [address] [place] [address] Sami Liriano DO [address] [place] [address] Results Social History Tobacco Use Types Packs/Day Years Used Date Smoking Tobacco: Former Cigarettes 0.5 12 0 09/30/1964 - 09/30/1976 Passive Smoke Exposure: Never Smokeless Tobacco: Never Alcohol Use Standard Drinks/Week Comments Not Currently 0 (1 standard drink = 0.6 oz pur e alcohol) 2 cocktails on some Sundays [facility] Utilities Answer Date Recorded In the [...] time in the past 12 m [facility], were you homeless or living in a long term (including now)? 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 * Brooke Lema MA - 02/20/2024 11:59 AM CDT LMOM for r/c ----- Message from Sami Liriano DO sent at 02/19/2024 4:24 PM CDT ----- Magnesium is mildly elevated; can stop any supplementation. Kidney function is decreased, may be related to diuretic. Has pt's symptoms improved at all since we saw her? WBC is elevated, but may be related to hospitalization. Inquire if pt has been having any fevers, body aches, or chills. documented in this encounter Plan of Treatment Upcoming Encounters Date Type Department Care Team (Late st Contact Info) Description 10/09/2024 9:30 AM QUALITY SYSTEMS SPECIALIST Office Visit [facility] [phone] Carlos Farris MD [facility] [address] [place] [address] 11/02/2024 10:20 AM QUALITY SYSTEMS SPECIALIST Office Visit [facility] Medical Group Family & Internal Medicine - [address] [phone] Sami Liriano DO [address] [place] [address] documented as of this encounter Goals Goal [...] Total Score: 0 10/11/19 22 10:50 AM QUALITY SYSTEMS SPECIALIST documented as of this encounter Care Teams Offset Lithographic Press Setter Relationship Specialty Start Date End Date Sami Liriano DO [address] [place] [address] [phone] PCP - General FAMILY PRACTICE 12/24/19 documented as of this encounter
--- OUTSIDE RECORDS SUMMARY | 2024-09-19 12:13 | XMS_ITS | Encounter Summary ---
Author Organization [facility] Address [facility]6 [facility]. [place], [place] [address] [place] [address] Care Team Providers Care Sand Shoveler Name Role Phone Sami Liriano Primary Care Provider + Reason for Visit * Reason Onset Date Comments Lab Results 02/27/2024 Encounter Details Date Type Department Care Team (Late st Contact Info) Description 02/27/[address] [phone] Shannan Moran turning sander operator Results Social History Tobacco Use Types Packs/Day [...] Recorded In the past 12 months has [employer], gas, oil, or water [employer] threatened to shut off services in your [...] on file Legal Sex Female 12:43 PM EDGING CATCHER Gender Identity Female 12/18/2021 6:31 AM CDT Sexual Orientation Straight 01/15/2022 6: 11 AM CDT 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 ARTEMIO Paris Secretary2 hours ago (2:33 PM) Please schedule follow up appt - 2 months. Thanks! Received above Scheduled for 05/04/24 with PREVENTIVE MEDICINE PHYSICIAN * Shannan Moran RN - 03/04/2024 2:33 PM CDT If her symptoms have improved can move out her appointment to [address] Above message from Dr. Farris. Message to the real estate legal secretary. * Shannan Moran RN - 02/27/2024 2:56 PM CDT Creatinine is better potassium is normal 4.2 chloride is a little elevated glucose is little elevated 146 recommend she discuss with her PCP. Please find out how her weight is doing as well as edema. Above message from Balire CABRERA. [employer] message sent to the patient with the above information. 03/04/24 - I informed the patient of the above information from Blaire CABRERA. The patient verbalized understanding. She is taking Torsemide 40mg daily and Spirfonolactone 12.5mg daily. The patient lost 12# and swelling is gone since her last appt with Dr. Ruano. The patient had no further questions. Message to Dr. Farris. documented in this encounter Plan of Treatment Upcoming Encounters Date Type Department Care Team (Late st Contact Info) Description 10/09/2024 9:30 AM EDGING CATCHER Office Visit [facility] [phone] Carlos Farris MD [facility] [address] [place] [address] 11/02/2024 10:20 AM EDGING CATCHER Office Visit [facility] Medical Group Family & Internal Medicine - [address] [phone] Sami Liriano DO [address] [place] [address] documented as of this encounter Goals Goal [...] Total Score: 0 10/11/19 22 10:50 AM EDGING CATCHER documented as of this encounter Care Teams Sand Shoveler Relationship Specialty Start Date End Date Sami Liriano DO [address] [place] [address] PCP - General FAMILY PRACTICE 12/24/19 documented as of this encounter
--- OUTSIDE RECORDS SUMMARY | 2024-09-19 12:13 | XMS_ITS | Encounter Summary ---
Author Organization [facility] Address [facility]. [place], [place] [address] [place] [address] Care Team Providers Care Information Systems Architect Name Role Phone Sami Liriano Primary Care Provider + Encounter Details Date Type Department Care Team (Late st Contact Info) Description 02/21/2024 10:40 AM CDT Laboratory Only [facility] Medical Group Family & Internal Medicine [address] [phone] Carlos Farris MD [facility] [address] [place] [phone] Social History Tobacco Use Types Packs/Day Years Used Date Smoking Tobacco: Former Cigarettes 0.5 12 0 09/30/1964 - 09/30/1976 Passive Smoke Exposure: Never Smokeless Tobacco: Never Alcohol Use Standard Drinks/Week Comments Not Currently 0 (1 standard drink = 0.6 oz pur e alcohol) 2 cocktails on some Sundays [facility] Utilities Answer Date Recorded In the [...] in the past 12 m [facility], were you homeless or living in a long term (including now)? 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 Farris for BMP documented in this encounter Plan of Treatment Upcoming Encounters Date Type Department Care Team (Late st Contact Info) Description 10/09/2024 9:30 AM LATIN AMERICAN STUDIES DIRECTOR Office Visit [facility] [phone] Carlos Fraris MD [facility] [address] [place] [address] 11/02/2024 10:20 AM LATIN AMERICAN STUDIES DIRECTOR Office Visit [facility] Medical Group Family & Internal Medicine [address] [phone] Sami Liriano DO [address] [place] [address] documented as of this encounter Goals Goal Patient Goal Type Associated Problems Recent Progress Patient-Stated? Author Patient will return to prior living situation and remain independent in ADLs upon discharge from hospital Lifestyle No Sylvia Ventura RN documented as of this encounter Procedures Procedure Name Priority Date/Time Associated Diagnosis Comments VENIPUNC ARM DRAW Routine 02/21/2024 3:05 PM CDT Acute heart failure, unspecified heart failure type (CMS/HCC HHS/HCC) documented in this encounter Visit Diagnoses Diagnosis Acute heart failure, unspecified heart failure type (CMS/[facility] HHS/HCC) documented in this encounter Additional Health Concerns Assessment Noted Time PHQ-9 Depression Total Score: 0 10/11/19 10:50 AM LATIN AMERICAN STUDIES DIRECTOR documented as of this encounter Care Teams Information Systems Architect Relationship Specialty Start Date End Date Sami Liriano DO [address] [place] [address] PCP - General FAMILY PRACTICE 12/24/19 documented as of this encounter
--- OUTSIDE RECORDS SUMMARY | 2024-09-19 12:13 | XMS_ITS | Encounter Summary ---
Author Organization [facility] Address [facility]6 [facility]. [place], [place] [address] [place] [address] Care Team Providers Care Motor Hotel Manager Name Role Phone Sami Liriano DO Primary Care Provider + Reason for Visit * Reason Onset Date Comments Medication Request 03/13/2024 Encounter Details Date Type Department Care Team (Late st Contact Info) Description 03/13/2024 Telephone [facility] Medical Group Family & Internal Medicine [facility] [address] [place] [address] Sami Liriano DO [address] [place] [address] Medication Request Social History Tobacco Use Types Packs/Day Years Used Date Smoking Tobacco: Former Cigarettes 0.5 12 0 09/30/1964 - 09/30/1976 Passive Smoke Exposure: Never Smokeless Tobacco: Never Alcohol Use Standard Drinks/Week Comments Not Currently 0 (1 standard drink = 0.6 oz pur e alcohol) 2 [address]tails on some Sundays [facility] Utilities Answer Date Recorded In [...] any time in the past 12 m [facility], were you homeless or living in a fci (including now)? 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 * Estephania Do MA - 03/13/2024 3:37 PM CDT Tried calling the patient to get more information about preferred cream however no answer. Looking further in the patients chart kenalog was prescribed 02/12/24 by Vianey Yang DO. Dose radha will be sent per pcp. * Sami Liriano DO - 03/13/2024 2:25 PM CDT If pt has been given Medrol dose pack, can send this. Pended. Let us know if this was a cream instead, and if she knows the cream what kind it is. * Brooke Hidalgo - 03/13/2024 1:00 PM CDT Patient has extreme itching on her arms and hands for 1 week now. In the past, you have given steroids. Can you send a new script to [facility] . documented in this encounter Plan of Treatment Upcoming Encounters Date Type Department Care Team (Late st Contact Info) Description 10/09/2024 9:30 AM INDIAN NANNY Office Visit [facility] [phone] Carlos Farris MD [facility] [address] [place] [address] 11/02/2024 10:20 AM INDIAN NANNY Office Visit [facility] Medical Group Family & Internal Medicine - [address] [phone] Sami Liriano DO [address] [place] [address] documented as of this encounter Goals Goal [...] Total Score: 0 10/11/19 22 10:50 AM INDIAN NANNY documented as of this encounter Care Teams Motor Hotel Manager Relationship Specialty Start Date End Date Sami Liriano DO [address] [place] [address] PCP - General FAMILY PRACTICE 12/24/19 documented as of this encounter
--- OUTSIDE RECORDS SUMMARY | 2024-09-19 12:13 | XMS_ITS | Encounter Summary ---
Author Organization [facility] Address [facility]. [place], [place] [address] [place] [address] Care Team Providers Care Auto Suspension And Steering Mechanic Name Role Phone Sami Liriano Primary Care Provider + Reason for Visit * Reason Onset Date Comments Follow Up Call 02/07/2024 HALIMA 02/06-02/12/24 Encounter Details Date Type Department Care Team (Latest Contact Info) Description 02/13/2024 Hospital Follow-up Call [facility] [place] [address] Alicia Elkins LPN Follow Up Call (HALIMA 02/06-02/12/24) Social History Tobacco Use Types Packs/Day Years Used Date Smoking Tobacco: Former Cigarettes 0.5 12 0 09/30/1964 - 09/30/1976 Passive Smoke Exposure: Never Smokeless Tobacco: Never Alcohol Use Standard Drinks/Week Comments Not Currently 0 (1 standard drink = 0.6 oz pur e alcohol) 2 cocktails on some Sundays [facility] Utilities Answer Date Recorded In the [...] any time in the past 12 m [facility], were you homeless or living in a residential (including now)? 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 file Not [...] st Contact Info) Description 10/09/2024 9:30 AM TELEPHONE CLAIMS REPRESENTATIVE Office Visit [facility] [phone] Carlos Farris MD [facility] Suite [facility] [place] [address] 11/02/2024 10:20 AM TELEPHONE CLAIMS REPRESENTATIVE Office Visit [facility] Medical Group Family & Internal Medicine - [address] [phone] Sami Liriano, [address] [place] [address] documented as of this encounter Goals [...] Total Score: 0 10/11/19 22 10:50 AM TELEPHONE CLAIMS REPRESENTATIVE documented as of this encounter Care Teams Auto Suspension And Steering Mechanic Relationship Specialty Start Date End Date Sami Liriano DO [address] [place] [address] PCP - General FAMILY PRACTICE 12/24/19 documented as of this encounter
--- OUTSIDE RECORDS SUMMARY | 2024-09-19 12:13 | XMS_ITS | Encounter Summary ---
Author Organization [facility] Address [facility] [place]6 [facility]. [place], [place] [address] [place] [address] Care Team Providers Care Special Education Supervisor Name Role Phone Sami Liriano Nicole AGUIAR Primary Care Provider + Encounter Details Date Type Department Care Team (Latest Contact Info) Description 07/06/2024 Travel Social History Tobacco Use Types Packs/Day Years Used Date Smoking Tobacco: Former Cigarettes 0.5 12 0 09/30/1964 - 09/30/1976 Passive Smoke Exposure: Never Smokeless Tobacco: Never Alcohol Use Standard Drinks/Week Comments Not Currently 0 (1 standard drink = 0.6 oz pur e alcohol) 2 cocktails on some Sundays [facility] Utilities Answer Date Recorded In the past 12 months has e electric, gas, oil, or water [employer] threatened to shut off services in your [...] time in the past 12 m [facility], were you homeless or living in a jail (including now)? 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 file [...] st Contact Info) Description 10/09/2024 9:30 AM ROUGH ROUNDER MACHINE Office Visit [facility]-[address] [phone] Carlos Farris MD [facility] Suite [facility] [place] [address] 11/02/2024 10:20 AM ROUGH ROUNDER MACHINE Office Visit [facility] Medical Group Family & Internal Medicine - [address] [phone] Sami Liriano DO [address] [place] [address] documented as of this encounter Goals Goal [...] Total Score: 0 10/11/19 22 10:50 AM ROUGH ROUNDER MACHINE documented as of this encounter Care Teams Special Education Supervisor Relationship Specialty Start Date End Date Sami Liriano DO [address] [place] [address] PCP - General FAMILY PRACTICE 12/24/19 documented as of this encounter
--- OUTSIDE RECORDS SUMMARY | 2024-09-19 12:13 | XMS_ITS | Encounter Summary ---
Author Organization [facility] Address [facility]6 [facility]. [place], [place] [address] [place] [address] Care Team Providers Care General Science Teacher Name Role Phone Sami Liriano Nicole AGUIAR Primary Care Provider + Encounter Details Date Type Department Care Team (Latest Contact Info) Description 02/27/2024 Travel Social History Tobacco Use Types Packs/Day Years Used Date Smoking Tobacco: Former Cigarettes 0.5 12 0 09/30/1964 - 09/30/1976 Passive Smoke Exposure: Never Smokeless Tobacco: Never Alcohol Use Standard Drinks/Week Comments Not Currently 0 (1 standard drink = 0.6 oz pur e alcohol) 2 cocktails on some Sundays [facility] Utilities Answer Date Recorded In the past 12 months has e electric, gas, oil, or water [employer] threatened to shut off services in your [...] any time in the past 12 m [facility], were you homeless or living in a jail (including now)? 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 file Not [...] st Contact Info) Description 10/09/2024 9:30 AM AREA DEVELOPMENT CONSULTANT Office Visit [facility]-[address] [phone] Carlos Farris MD [facility] Suite [facility] [place] [address] 11/02/2024 10:20 AM AREA DEVELOPMENT CONSULTANT Office Visit [facility] Medical Group Family & Internal Medicine - [address] [phone] Sami Liriano DO [address] [place] [address] documented as of this encounter Goals Goal [...] Total Score: 0 10/11/19 22 10:50 AM AREA DEVELOPMENT CONSULTANT documented as of this encounter Care Teams General Science Teacher Relationship Specialty Start Date End Date Sami Liriano DO [address] [place] [address] PCP - General FAMILY PRACTICE 12/24/19 documented as of this encounter
--- OUTSIDE RECORDS SUMMARY | 2024-09-19 12:13 | XMS_ITS | Encounter Summary ---
Author Organization [facility] Address [facility]6 [facility]. [place], [place] [address] [place] [address] Care Team Providers Care Company Truck Driver Name Role Phone Sami Liriano Nicole AGUIAR Primary Care Provider + Encounter Details Date Type Department Care Team (Latest Contact Info) Description 05/04/2024 Travel Social History Tobacco Use Types Packs/Day Years Used Date Smoking Tobacco: Former Cigarettes 0.5 12 0 09/30/1964 - 09/30/1976 Passive Smoke Exposure: Never Smokeless Tobacco: Never Alcohol Use Standard Drinks/Week Comments Not Currently 0 (1 standard drink = 0.6 oz pur e alcohol) 2 cocktails on some Sundays [facility] Utilities Answer Date Recorded In the past 12 months has e electric, gas, oil, or water [employer] threatened to shut off services in your [...] time in the past 12 m [facility], were you homeless or living in a intermediate (including now)? 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 Medical Group Family & Internal Medicine - [address] [phone] Sami Liriano DO [address] [place] [address] documented as of this encounter Goals Goal [...] Total Score: 0 10/11/19 22 10:50 AM ADVANCED QUALITY ENGINEER documented as of this encounter Care Teams Company Truck Driver Relationship Specialty Start Date End Date Sami Liriano DO [address] [place] [address] PCP - General FAMILY PRACTICE 12/24/19 documented as of this encounter
--- OUTSIDE RECORDS SUMMARY | 2024-09-19 12:13 | XMS_ITS | Encounter Summary ---
Author Organization [facility] Address [facility]6 [facility]. [place], [place] [address] [place] [address] Care Team Providers Care Tank Stave Assembler Name Role Phone Sami Liriano DO Primary Care Provider + Reason for Visit * Reason Onset Date Comments Medication 06/15/2024 Encounter Details Date Type Department Care Team (Late st Contact Info) Description 06/15/2024 Telephone [facility] Medical Group Family & Internal Medicine [facility] [address] [place] [address] Sami iLriano DO [address] [place] [address] Medication Social History Tobacco Use Types Packs/Day Years Used Date Smoking Tobacco: Former Cigarettes 0.5 12 0 09/30/1964 - 09/30/1976 Passive Smoke Exposure: Never Smokeless Tobacco: Never Alcohol Use Standard Drinks/Week Comments Not Currently 0 (1 standard drink = 0.6 oz pur e alcohol) 2 cocktails on some Sundays [facility] Utilities Answer Date Recorded In the [...] on file Legal Sex Female 12:43 PM CORPORATE COMPLIANCE OFFICER Gender Identity Female 12/18/2021 6:31 AM CDT Sexual Orientation Straight 01/15/2022 6: 11 AM CDT 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 Opportunity given for all questions to be answered, no further needs voiced at this time. LL-06/16/24 * Brooke Hidalgo - 06/16/2024 10:16 AM CDT Patient called to report a negative home COVID test. * Deb Varela RN - 06/15/2024 12:23 PM CDT Patient notified and verbalized understanding. She said she will go pick one up and call this office back with results. RX sent. Patient is aware to take the test first. Opportunity given for all questions to be answered, no further needs voiced at this time. LL-06/15/24 * Sami Liriano DO - 06/15/2024 12:03 PM CDT Can do a z-pack, but recommend doing a home COVID test as well. Needs to be seen if not improving. Pended. * Shabana Pendleton - 06/15/2024 9:25 AM CDT Pt says she has heavy cough again since last . No fever, patricia. Thinks this is a sinus infection, would like something called to pharmacy. Pharmacy [facility] in [place]. documented in this encounter Plan of Treatment Upcoming Encounters Date Type Department Care Team (Late st Contact Info) Description 10/09/2024 9:30 AM CORPORATE COMPLIANCE OFFICER Office Visit [facility]-[address] [phone] Carlos Farris MD Three [facility] Bl Suite [facility][note 2]0 [place] [address] 11/02/2024 10:20 AM CORPORATE COMPLIANCE OFFICER Office Visit [facility] Medical Group Family & Internal Medicine - [address] [phone] Sami Liriano DO [address] [place] [address] documented as of this encounter Goals Goal Patient Goal Type Associated Problems Recent Progress Patient-Stated? Author Patient will return to prior living situation and remain independent in ADLs upon discharge from hospital Lifestyle No Sylvia Ventura RN documented as of this encounter Visit Diagnoses Diagnosis Acute sinus infection- Primary Acute sinusitis, unspecified documented in this encounter Additional Health Concerns Assessment Noted Time PHQ-9 Depression Total Score: 0 10/11/19 22 10:50 AM CORPORATE COMPLIANCE OFFICER documented as of this encounter Care Teams Tank Stave Assembler Relationship Specialty Start Date End Date Sami Liriano DO [address] [place] [address] PCP - General FAMILY PRACTICE 12/24/19 documented as of this encounter
--- OUTSIDE RECORDS SUMMARY | 2024-09-19 12:13 | XMS_ITS | Encounter Summary ---
Author Organization [facility] Address [facility]6 [facility]. [place], [place] [address] [place] [address] Care Team Providers Care Vp Software Engineering Name Role Phone Tracy Gimenez DO Primary Care Provider + Reason for Visit * Reason Onset Date Comments Medication Request 03/02/2024 Encounter Details Date Type Department Care Team (Late st Contact Info) Description 03/02/2024 Telephone [facility] Medical Group Family & Internal Medicine [facility] [address] [place] [phone] Tracy Gimenez DO [address] [place] [address] Medication Request Social History Tobacco Use Types Packs/Day Years Used Date Smoking Tobacco: Former Cigarettes 0.5 12 0 09/30/1964 - 09/30/1976 Passive Smoke Exposure: Never Smokeless Tobacco: Never Alcohol Use Standard Drinks/Week Comments Not Currently 0 (1 standard drink = 0.6 oz pur e alcohol) 2 cocktails on some Sundays [facility] Utilities Answer Date Recorded In [...] on file Legal Sex Female 12:43 PM PYTHON WEB DEVELOPER Gender Identity Female 12/18/2021 6:31 AM CDT Sexual Orientation Straight 01/15/2022 6: 11 AM CDT 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 Not on file [...] in this encounter Progress Notes * Brooke Hernández MA - 03/02/2024 2:30 PM CDTAddended by: BROOKE HERNÁNDEZ on: 03/02/2024 02:30 PM Modules accepted: Orders * Winter Espinosa - 03/02/2024 12:21 PM CDT Refill request received from Patient Medication: potassium chloride CR (K-TAB) 10 MEQ Tab CR tablet Pharmacy: [id number] - [place] - [address] Last visit with TRACY GIMENEZ in FAMILY PRACTICE was on: 02/27/2024 in [place] Future Appointments Date Time Provider Department Center 03/06/2024 10:20 AM KEVIN Kat [facility] 04/22/2024 7:20 AM [id number] documented in this encounter Plan of Treatment Upcoming Encounters Date Type Department Care Team (Late st Contact Info) Description 10/09/2024 9:30 AM PYTHON WEB DEVELOPER Office Visit [facility]-[address] [phone] Carlos Farris MD [facility] [address] [place] [address] 11/02/2024 10:20 AM PYTHON WEB DEVELOPER Office Visit [facility] Medical Group Family & Internal Medicine - [address] [phone] Tracy Gimenez DO [address] [place] [address] documented as of this encounter Goals Goal Patient Goal Type Associated Problems Recent Progress Patient-Stated? Author Patient will return to prior living situation and remain independent in ADLs upon discharge from hospital Lifestyle No Sylvia Ventura RN documented as of this encounter Visit Diagnoses Diagnosis Bilateral lower extremity edema Edema documented in this encounter Additional Health Concerns Assessment Noted Time PHQ-9 Depression Total Score: 0 10/11/19 10:50 AM PYTHON WEB DEVELOPER documented as of this encounter Care Teams Vp Software Engineering Relationship Specialty Start Date End Date Tracy Gimenez DO [address] [place] [address] PCP - General FAMILY PRACTICE 12/24/19 documented as of this encounter
--- OUTSIDE RECORDS SUMMARY | 2024-09-19 12:14 | XMS_ITS | Encounter Summary ---
Author Organization [facility] Address [address] [place] [address]. [place], [place] [address] [place] [address] Care Team Providers Care Rug Dyer Name Role Phone Sami Liriano DO Primary Care Provider + Reason for Visit * Reason Onset Date Comments Information 01/28/2024 Encounter Details Date Type Department Care Team (Late st Contact Info) Description 01/28/2024 Telephone [facility] Medical Group Family & Internal Medicine [place] [address] [place] [phone] Sami Liriano DO [address] [place] [address] Information Social History Tobacco Use Types Packs/Day Years Used Date Smoking Tobacco: Former Cigarettes 0.5 12 0 09/30/1964 - 09/30/1976 Passive Smoke Exposure: Never Smokeless Tobacco: Never Alcohol Use Standard Drinks/Week Comments Not Currently 0 (1 standard drink = 0.6 oz pur e alcohol) 2 cocktails on some Sundays [facility] Answer Date Recorded Frequency of Alcohol Consumption 2-3 times a wee k 10/29/2019 Average Number of Drinks 1 or 2 020 Frequency of Binge Drinking Never 10/02 PHQ-2 Answer Date Recorded Patient Health Questionnaire-2 Score 1 11/18/2023 Comments No Sex and Gender Information Value Date Recorded Sex Assigned at Not on file Legal Sex Female 12:43 PM ACADEMIC HOSPITALIST Gender Identity Female 12/18/2021 6:31 AM CDT Sexual Orientation Straight 01/15/2022 6: 11 AM CDT 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 Made multiple calls to their office and to pt on 01/29/2024. Called patieient back on 01/30/2024 to verify she was scheduled. Had to LMOM. The patient is to make a f/u with pcp after seeing urology * Winter Espinosa - 01/28/2024 3:31 PM CDT PT called in stated went to [facility] and is being released. Pt states doctor in [place] is going to increase on her Lasix. documented in this encounter Plan of Treatment Upcoming Encounters Date Type Department Care Team (Late st Contact Info) Description 10/09/2024 9:30 AM ACADEMIC HOSPITALIST Office Visit [facility]-[address] [phone] Carlos Farris MD Three [facility] [address] [place] [address] 11/02/2024 10:20 AM ACADEMIC HOSPITALIST Office Visit [facility] Medical Group Family & Internal Medicine - [address] [phone] Sami Liriano DO [address] [place] [address] documented as of this encounter Visit Diagnoses Not on filedocumented in this encounter Additional Health Concerns Assessment Noted Time PHQ-9 Depression Total Score: 0 10/11/19 22 10:50 AM ACADEMIC HOSPITALIST documented as of this encounter Care Teams Rug Dyer Relationship Specialty Start Date End Date Sami Liriano DO [address] [place] [address] PCP - General FAMILY PRACTICE 12/24/19 documented as of this encounter
--- OUTSIDE RECORDS SUMMARY | 2024-09-19 12:14 | XMS_ITS | Encounter Summary ---
Author Organization [facility] Address [address] [place] [address]. [place], [place] [id number] [place] [address] Care Team Providers Care Psychologist Industrial Organizational Name Role Phone Sami Liriano DO Primary Care Provider + Reason for Visit * Reason Onset Date Comments Medication 12/09/2023 Encounter Details Date Type Department Care Team (Late st Contact Info) Description 12/09/2023 Telephone [facility] Family & Internal Medicine [id number] [place] [address] Sami Liriano DO [address] [place] [address] Medication Social History Tobacco Use Types [...] on file Legal Sex Female 12:43 PM DUMP TRUCK OPERATOR Gender Identity Female 12/18/2021 6:31 AM CDT Sexual Orientation Straight 01/15/2022 6: 11 AM CDT 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 Not on file Not on franck e documented as of this encounter Progress Notes * Janiya Walter, RTR - 12/09/2023 8:35 AM CDT PA not needed for Albuterol Neb-already covered by plan documented in this encounter Plan of Treatment Upcoming Encounters Date Type Department Care Team (Late st Contact Info) Description 10/09/2024 9:30 AM DUMP TRUCK OPERATOR Office Visit [facility] [phone] Carlos Farris MD Three [facility] [address] [place] [address] 11/02/2024 10:20 AM DUMP TRUCK OPERATOR Office Visit [facility] Family & Internal Medicine - [address] [phone] Sami Liriano DO [address] [place] [address] documented as of this encounter Visit Diagnoses Not on filedocumented in this encounter Additional Health Concerns Assessment Noted Time PHQ-9 Depression Total Score: 0 10/11/19 22 10:50 AM DUMP TRUCK OPERATOR documented as of this encounter Care Teams Psychologist Industrial Organizational Relationship Specialty Start Date End Date Sami Liriano DO [address] [place] [address] PCP - General FAMILY PRACTICE 12/24/19 documented as of this encounter
--- OUTSIDE RECORDS SUMMARY | 2024-09-19 12:14 | XMS_ITS | Encounter Summary ---
Author Organization [facility] Address [address] [place] [address]. [place], [place] [id number] [place] [address] Care Team Providers Care Tricot Knitter Name Role Phone Sami Liriano DO Primary Care Provider + Reason for Referral * Consultation/Treatment (Urgent) - Authorized Specialty Diagnoses / Procedures Referred By Shereen benton Referred To Contact UROLOGY Diagnoses Leg swelling Stage 3a chronic kidney disease (CMS/HCC HHS/HCC) Anuria Renal failure Procedures OFFICE/OUTPATIENT NEW LOW MDM 30-44 MINUTES OFFICE/OUTPT VISIT,NEW,LEVL IV OFFICE/OUTPT VISIT,NEW,LEVL V OFFICE/OUTPT VISIT,EST,LEVL III OFFICE/OUTPT VISIT,EST,LEVL IV OFFICE/OUTPT VISIT,EST,LEVL V Sami Liriano DO [address] [place] [address] Phone: tel: fax: Elvin Acuna MD [address] [place] [address] Phone: tel: fax: Referral ID Status Reason Start Date Expiration Date Visits Requested Visits Authorized [id number] Authorized Specialty Services 01/31/2024 02/28/2025 99 99 Reason for Visit * Reason Onset Date Comments ER F/U 01/29/2024 Encounter Details Date Type Department Care Team (Late st Contact Info) Description 01/29/2024 Telephone [facility] Family & Internal Medicine - [place] [address] [place] [address] JaeldarellSami DO [address] [place] [address] ER F/U Social History Tobacco Use Types Packs/Day Years [...] on file Legal Sex Female 12:43 PM DISASTER RECOVERY ANALYST Gender Identity Female 12/18/2021 6:31 AM CDT Sexual Orientation Straight 01/15/2022 6: 11 AM CDT 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 This is not acceptable per PCP given the patient's situation. I called [facility] of [facility] and spoke with Mayi who is able to schedule patient for 01/31/2024 at 10am at their [place] location. PCP wants to insure pt is not taking oxybutynin any more. Spoke with patient and she is not taking the medication at this time. The patient agreed to urologyappt and scheduled f/u with pcp on 02/03/2024. [facility] [place] [id number] * Winter Espinosa - 01/30/2024 9:32 AM CDT PT called in stated spoke with someone from urology but still would like a call back to discuss some things. * Brooke Lema MA - 01/29/2024 10:37 AM CDT The patient called and states the ER sent her home with a catheter. The patient called the office for a return to work note and follow up appt. PCP was advised and states patient need referral to urology stat. Call urology of [facility] and spoke to Hanna. Information was faxed to [phone]. The nursing staff at their office will triage and schedule patient today or tomorrow. The patient was advisedof this call and plan. The patient will return call to the office if she has not heard from them by2pm and if/when she is scheduled. documented in this encounter Plan of Treatment Upcoming Encounters Date Type Department Care Team (Late st Contact Info) Description 10/09/2024 9:30 AM DISASTER RECOVERY ANALYST Office Visit [facility] [phone] Carlos Farris MD Three [facility] [address] [facility] [address] [place] [address] 11/02/2024 10:20 AM DISASTER RECOVERY ANALYST Office Visit [facility] Family & Internal Medicine - [address] [phone] Sami Liriano DO [address] [place] [address] Scheduled Referrals Name Type Priority Associated Diagnoses Orde r Schedule Ambulatory referral to Urology (OTHER) Referral Routine Leg swelling Stage 3a chronic kidney disease ([facility]) Anuria Renal failure Ordered: 01/29/2024 documented as of this encounter Visit Diagnoses Diagnosis Leg swelling- Primary Swelling of limb Stage 3a chronic kidney disease ([facility]) Anuria Oliguria and anuria Renal failure Renal failure, unspecified documented in this encounter Additional Health Concerns Assessment Noted Time PHQ-9 Depression Total Score: 0 10/11/19 22 10:50 AM DISASTER RECOVERY ANALYST documented as of this encounter Care Teams Tricot Knitter Relationship Specialty Start Date End Date Sami Liriano DO [address] [place] [address] PCP - General FAMILY PRACTICE 12/24/19 documented as of this encounter
--- OUTSIDE RECORDS SUMMARY | 2024-09-19 12:14 | XMS_ITS | Encounter Summary ---
Author Organization [facility] Address [address] [place] [address]. [place], [place] [address] [place] [address] Care Team Providers Care Physical Therapy Assistant Name Role Phone Sami Liriano DO Primary Care Provider + Reason for Visit * Reason Comments Hypertension consult Shortness Of Breath Edema * Consultation (Urgent) - Authorized Specialty Diagnoses / Procedures Referred By Contact Referred To Contact CARDIOLOGY / Cardiology Diagnoses Leg swelling Shortness of breath Stage 3a chronic kidney disease ([facility]) Hypertension associated with type 2 diabetes mellitus ([facility]) Procedures OFFICE/OUTPATIENT NEW LOW MDM 30-44 MINUTES OFFICE/OUTPT VISIT,NEW,LEVL IV OFFICE/OUTPT VISIT,NEW,LEVL V OFFICE/OUTPT VISIT,EST,LEVL III OFFICE/OUTPT VISIT,EST,LEVL IV OFFICE/OUTPT VISIT,EST,LEVL V Sami Liriano DO [address] [place] [address] Phone: tel: fax: [facility] [address] Phone: tel: fax: Referral ID Status Reason Start Date Expiration Date Visits Requested Visits Authorized [id number] Authorized Specialty Services 02/03/2024 03/04/2025 99 99 Encounter Details Date Type Department Care Team (Latest Contact Info) Description 02/07/2024 1:45 PM CDT Office Visit [facility] [address] Carlos Farris MD Three [facility] [address] [place] [address] Hypertension (consult); Shortness Of Breath ; Edema Social History Tobacco Use Types Packs/Day Years Used Date Smoking Tobacco: Former Cigarettes 0.5 12 0 09/30/1964 - 09/30/1976 Passive Smoke Exposure: Never Smokeless Tobacco: Never Alcohol Use Standard Drinks/Week Comments Not Currently 0 (1 standard drink = 0.6 oz pur e alcohol) 2 cocktails on some Sundays [facility] Utilities Answer Date Recorded In the past 12 months has e [place], gas, oil, or water [employer] threatened to shut off services in your [...] time in the past 12 m [facility], were you homeless or living in a usp (including now)? 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 [place], [place] [address] Cardiology Consult PCP: Sami Liriano DO Cardiac Problem List HTN HF HLD Former Smoker Home Medications: atorvastatin 10 mg daily, Amlodipine 5 mg daily, hydrochlorothiazide 25 mg daily let, lisinopril 40 mg daily,Lasix 40 mg daily, K chlor 10 mill equivalents daily Consult Reason: HF History Ms. Jolly Sargent is a 68-year-old female. Patient presents for evaluation of heart failure. She has been seeing her primary care physician for lower extremity edema and shortness of breath. She has been titrated on Lasix with some improvement initially. However since she has noticed worsening lower extremity edema shortness of breath and weight gain. She has also noticed decreased urine output. States in the past she has been incontinentfor many years and has to change her diapers 4-7 times per day. She late December noticed that she wasno longer urinating. She went to the ER. They gave her IV Lasix with good output. They did check a postvoid residual and she had postvoid residual 150. They put in Natarajan catheter and had her follow-up with urology. She saw urology and was told that her bladder was emptying fine. Her Natarajan was takenout. She her Lasix was increased to 80 in the morning 80 in the afternoon 40 in the evening. Despite this higher dose urine output remains poor. She has not urinated since 4 this morning. Only urinates about once a day. Weight is up about 4 pounds in the past 5 days. Patient denies any chest pain, pnd, decreased appetite, palpitations, light headedness, dizziness, syncope. Past Medical History: Diagnosis Date Anxiety disorder, unspecified Arthritis Arthritis of left knee 11/08/2019 Depression Diabetes mellitus ([facility]) GERD (gastroesophageal reflux disease) Hypertension Overactive bladder Positive colorectal cancer screening using Cologuard test 04/19/2020 Added automatically from request for surgery [id number] Past Surgical History: Procedure Laterality Date ANKLE SURGERY left SECTION COLONOSCOPY N/A 04/27/2020 COLONOSCOPY WITH BIOPSY X 3 performed by Joel Keenan MD at [facility] OR COLONOSCOPY N/A 11/20/2023 Colonoscopy with Polypectomies performed by Joel Keenan MD at [facility] OR [facility] EYE SURGERY FRACTURE SURGERY HERNIA REPAIR HYSTERECTOMY [...] Authorizing Provider acetaminophen 325 MG tablet Take 1 tablet (325 mg total) by mouth. Take 2 in the am and 2 tabs in the pm and 1 PRN Yes Doc Prevea Abstract albuterol (PROVENTIL) (2.5 MG/3ML) 0.083% nebulizer solution Take 3 mLs (2.5 mg total) by nebulization every 6 (six) hours as needed for Wheezing. 12/06/23 Yes Sami Liriano DO albuterol sulfate HFA 108 (90 Base) MCG/ACT inhaler Inhale 2 puffs into the lungs every 4 (four) hours as needed for Wheezing or Shortness of breath. 07/26/23 Yes Sami Liriano DO amLODIPine (NORVASC) 5 MG tablet TAKE 1 TABLET(5 MG) BY MOUTH DAILY 12/12/23 Yes JENNIFER Davila atorvastatin (LIPITOR) 10 MG tablet take 1 tablet by mouth every day at night 10/21/23 Yes Sami PLuchtefeld, DO Yssvjrb-Eggqlyzwwpb-Cnhhxbgcsg (BREZTRI AEROSPHERE) 160-9-4.8 MCG/ACT Aerosol Inhale 2 Inhalations into the lungs 2 (two) times a day. 12/12/23 Yes JENNIFER Davila escitalopram (LEXAPRO) 20 MG tablet TAKE 1 TABLET BY MOUTH EVERY DAY 08/28/23 Yes Sami Liriano DO furosemide (LASIX) 40 MG tablet Take 2 tabs in the AM and 1 tab in the PM Patient taking differently: 80mg in AM 80mg in afternoon 80mg in the evening 02/03/24 Yes Sami Liriano DO hydroCHLOROthiazide (HYDRODIURIL) 25 MG tablet take 1 tablet by mouth every day in the morning 10/21/23 Yes Sami Liriano DO ipratropium-albuterol (DUONEB) 0.5-2.5 (3) MG/3ML Solution 12/06/23 Yes Default History Genericprovider lisinopril (PRINIVIL) 40 MG tablet TAKE ONE TABLET BY MOUTH DAILY AT 9AM 06/01/22 Yes Sami Liriano DO metFORMIN ER (GLUCOPHAGE-XR) 500 MG 24 hr tablet take 1 tablet by mouth every day with breakfast 01/28/24 Yes Sami Liriano, DO NEBULIZER DEVICE, DME, Take 1 Device by nebulization every 6 (six) hours as needed. 11/18/23 Yes Sami Liriano, DO NEBULIZER/TUBING/MOUTHPIECE KIT, DME, 1 kit by Other route every 6 (six) hours as needed. 11/18/23 Yes Sami Liriano DO potassium chloride CR (K-TAB) 10 MEQ Tab CR tablet TAKE ONE TABLET DAILY Patient must be seen for further refills 09/25/22 Yes Sami Liriano DO tiZANidine (ZANAFLEX) 2 MG tablet TAKE 1 TABLET(2 MG) BY MOUTH EVERY 6 HOURS NEEDED 01/21/24 Yes Sami Liriano DO traMADol (ULTRAM) 50 MG tablet Take 1 tablet (50 mg total) by mouth every 6 (six) hours as needed for Pain. Indications: Chronic Pain 07/03/22 Yes Sami Liriano DO Review of patient's allergies indicates: Allergen Reactions Chocolate Hives Penicillins Rash Sulfa Antibiotics Rash Review of Systems: A 14 point ROS was completed and was negative except as per HPI. Physical Exam Filed Vitals: 02/07/24 1356 Weight: 114.7 kg (252 lb 14.4 oz) Height: 1.524 m (5') Body mass index is 49.39 kg/m??. Physical Exam: General: NAD, Appears Normal Stated Age HEENT: PEERL, EOMI, MMM NECK: No JVD CVS: RRR, no MRG Resp: + rales ABD: Soft, NT, ND, +BS Ext: No CC ,2+ bilateral pitting edema Neuro: Non Focal Psych: Normal Affect Diagnostic Data Lab Results Component Value Date/Time WBC 11.14 (H) 01/28/2024 12:32 PM HGB 11.7 (L) 01/28/2024 12:32 PM HCT 36.1 01/28/2024 12:32 PM PLT 231 01/28/2024 12:32 PM NA 138 01/28/2024 12:32 PM CL 102 01/28/2024 12:32 PM K 3.7 01/28/2024 12:32 PM GLU 134 (H) 01/28/2024 12:32 PM BUN 15 01/28/2024 12:32 PM CR 1.09 (H) 01/28/2024 12:32 PM CA 9.2 01/28/2024 12:32 PM AST 23 01/28/2024 12:32 PM ALT 30 01/28/2024 12:32 PM ALB 3.7 01/28/2024 12:32 PM Lab Results Component Value Date CHOL 164 11/28/2023 TRI 115 11/28/2023 HDL 67 11/28/2023 LDL 150 (H) 09/05/2020 HGBA1C 6.1 11/18/2023 TSH 0.947 11/28/2023 EK01/28/2024: Sr, PVC, nonspecific T wave changes Transthoracic Echocardiogram TTE 2020 The left ventricular size is [...] cardiac event. Holter Left Heart Catherization Assessment/Plan HF HLD HTN Former Smoker Is presenting with heart failure and volume overload. She continues to gain weight despite escalating oral diuretics. Her UOP is also poor. Will admit her for IV diuretics and an echocardiogram. In regards to her hyperlipidemia she will continue her atorvastatin. Regards to her hypertension she will continue her current medications. Will medically optimize her while she is in the hospital. Follow-Up: 1 week post ED visit. Report given to HALIMA OSORIO Thank you for allowing me to participate in the care of this patient. Please reach out with any questions. Carlos Farris MD Portions of this note were dictated using [employer] speech recognition software. Occasional wrong wordor sound-alike substitutions may have occurred due to the inherent limitations of voice recognition software. Please read the chart carefully and recognize, using context, where the substitutions may have occurred. documented in this encounter Plan of Treatment Upcoming Encounters Date Type Department Care Team (Late st Contact Info) Description 10/09/2024 9:30 AM KITCHEN MANAGER Office Visit [facility] [address] Carlos Farris MD Three [facility] [address] [place] [address] 11/02/2024 10:20 AM KITCHEN MANAGER Office Visit [facility] Family & Internal Medicine - [phone] [place] [address] Sami Liriano DO [facility] [place] [address] documented as of this encounter Visit Diagnoses Diagnosis Dyslipidemia- Primary Other and unspecified hyperlipidemia Essential (primary) hypertension Unspecified essential hypertension Severe obstructive sleep apnea Obstructive sleep apnea (adult) (pediatric) Acute heart failure, unspecified heart failure type ([facility]/HCC) documented in this encounter Additional Health Concerns Assessment Noted Time PHQ-9 Depression Total Score: 0 10/11/19 22 10:50 AM KITCHEN MANAGER documented as of this encounter Care Teams Physical Therapy Assistant Relationship Specialty Start Date End Date Sami Liriano DO [address] [place] [address] PCP - General FAMILY PRACTICE 12/24/19 documented as of this encounter
--- OUTSIDE RECORDS SUMMARY | 2024-09-19 12:14 | XMS_ITS | Encounter Summary ---
Author Organization [facility] Address [address] [place] [address]. 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 Not on file Not on franck e documented as of this encounter Plan of Treatment Upcoming Encounters Date Type Department Care Team (Late st Contact Info) Description 10/09/2024 9:30 AM OXYGEN EQUIPMENT PREPARER Office Visit [facility] [address] Carlos Farris MD Three [facility] [address] [place] [address] 11/02/2024 10:20 AM OXYGEN EQUIPMENT PREPARER Office Visit [facility] Family & Internal Medicine - [address] [address] Sami Liriano DO [address] [place] [address] documented as of this encounter Visit Diagnoses Not on filedocumented in this encounter Additional Health Concerns Assessment Noted Time PHQ-9 Depression Total Score: 0 10/11/19 22 10:50 AM OXYGEN EQUIPMENT PREPARER documented as of this encounter Care Teams Production Control Clerk Relationship Specialty Start Date End Date Sami Liriano DO [address] [place] [address] PCP - General FAMILY PRACTICE 12/24/19 documented as of this encounter
--- OUTSIDE RECORDS SUMMARY | 2024-09-19 12:14 | XMS_ITS | Encounter Summary ---
Author Organization [facility] Address [facility]. [place], [place] [address] [place] [address] Care Team Providers Care Soils Technician Name Role Phone Sami Liriano DO Primary Care Provider + Reason for Visit * Reason Onset Date Comments Record Request 02/03/2024 Encounter Details Date Type Department Care Team (Late st Contact Info) Description 02/03/2024 Telephone [facility] Family & Internal Medicine [facility] [address] [place] [address] Sami Liriano DO [address] [place] [address] Record Request Social History Tobacco Use Types Packs/Day Years Used Date Smoking Tobacco: Former Cigarettes 0.5 12 0 09/30/1964 - 09/30/1976 Passive Smoke Exposure: Never Smokeless Tobacco: Never Alcohol Use Standard Drinks/Week Comments Not Currently 0 (1 standard drink = 0.6 oz pur e alcohol) 2 cocktails on some Sundays [facility] Utilities Answer Date Recorded In the [...] any time in the past 12 m [facility], were you homeless or living in a intermediate (including now)? 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 No 02/08/2024 12:30 AM CDT Christa Hodgson RN Active documented in this encounter Progress Notes * Andra Wells MA - 03/03/2024 9:56 AM CDT Office received and is in chart * Andra Wells MA - 02/03/2024 3:48 PM CDT I have faxed [facility] [place] [facility] for office note from last week documented in this encounter Plan of Treatment Upcoming Encounters Date Type Department Care Team (Late st Contact Info) Description 10/09/2024 9:30 AM FITTING ROOM ASSOCIATE Office Visit [facility] [phone] Carlos Farris MD Three [facility] [address] [facility] [place] [address] 11/02/2024 10:20 AM FITTING ROOM ASSOCIATE Office Visit [facility] Family & Internal Medicine - [address] [phone] [place] [address] [place] [address] documented as of this encounter Goals Goal [...] Total Score: 0 10/11/19 22 10:50 AM FITTING ROOM ASSOCIATE documented as of this encounter Care Teams Soils Technician Relationship Specialty Start Date End Date Sami Liriano DO [address] [place] [address] [phone] PCP - General FAMILY PRACTICE 12/24/19 documented as of this encounter
--- OUTSIDE RECORDS SUMMARY | 2024-09-19 12:14 | XMS_ITS | Encounter Summary ---
Author Organization [facility] Address [address] [place] [address]. [place], [place] [address] [place] [address] Care Team Providers Care Vehicle Mechanic Name Role Phone Sami Liriano Primary Care Provider + Reason for Visit * Reason Comments Cough Encounter Details Date Type Department Care Team (Late st Contact Info) Description 12/12/2023 10:20 AM CDT Office Visit [facility] Group Family & Internal Medicine [facility] [address] [place] [address] Barb Sexton APNP [facility] [place] [address] Cough Social History Tobacco Use Types Packs/Day Years [...] on file Legal Sex Female 12:43 PM LEASING MACHINE TENDER Gender Identity Female 12/18/2021 6:31 AM CDT Sexual Orientation Straight 01/15/2022 6: 11 AM CDT 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 Not on file Not on franck e documented as of this encounter Last Filed Vital Signs Vital Sign Reading Time Taken Comments Blood Pressure 158/76 12/12/2023 10:43 AM CDT Pulse 69 12/12/2023 10:22 AM CDT Temperature 36.7 ??C (98 ??F) 12/12/2023 10:22 AM CDT Respiratory Rate 18 12/12/2023 10:22 AM CDT Oxygen Saturation 96% 12/12/2023 10:22 AM CDT Inhaled Oxygen Concentration - - Weight 112.9 kg (249 lb) 12/12/2023 10:22 AM CDT Height 152.4 cm (5') 12/12/2023 10:22 AM CDT Body Mass Index 48.63 12/12/2023 10:22 AM CDT documented in this encounter Patient Instructions * Patient Instructions* JENNIFER Davila - 12/12/2023 10:20 AM CDT I want you to try to some over the counter either zyrtec or claritin for about 3-4 weeks If this is not helpful---try over the counter pepcid 20 mg twice daily. documented in this encounter Progress Notes * JENNIFER Davila - 12/12/2023 10:20 AM CDT Images from the original note were not included. [facility] FAMILY AND INTERNAL MEDICINE OFFICE VISIT Reason for Visit: Cough History of Present Illness: 68 yo female here today to follow up on her recent cough/bronchitis. Since her last visit with me 2weeks ago she states she is feeling better. She states that she is not coughing as much and she is for the most part breathing easier. She feels now that the congestion is centered more in her lower pharynx upper lung area. Cough is nonproductive. She does note that cough does worsen some at night as she lies down to go to bed. She does feel tired throughout the day. 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 Feels this is contributory to her fatigue. Denies any chest pain or shortness of breath. O2 sats today are 96 and she is not tachycardic. She is treated for hypertension, currently on lisinopril and hydrochlorothiazide both of which she has had today. She tolerates meds well, no bothersome side effects. ROS: Review of Systems Constitutional: Positive for malaise/fatigue. Negative for chills and fever. Respiratory: Positive for cough. Negative for shortness of breath. Cardiovascular: Negative for chest pain and palpitations. Gastrointestinal: Negative for abdominal pain, diarrhea, nausea and vomiting. Neurological: Negative for dizziness and headaches. Medications: Current Outpatient Medications: acetaminophen 325 MG tablet, Take 1 tablet (325 mg total) by mouth. Take 2 in the am and 2 tabs in the pm and 1 PRN, Disp: , Rfl: albuterol (PROVENTIL) (2.5 MG/3ML) 0.083% nebulizer solution, Take 3 mLs (2.5 mg total) by nebulization every 6 (six) hours as needed for Wheezing., Disp: 360 mL, Rfl: 0 albuterol sulfate HFA 108 (90 Base) MCG/ACT inhaler, Inhale 2 puffs into the lungs every 4 (four) hours as needed for Wheezing or Shortness of breath., Disp: 18 g, Rfl: 2 amLODIPine (NORVASC) 5 MG tablet, Take 1 tablet (5 mg total) by mouth daily., Disp: 30 tablet, Rfl:1 atorvastatin (LIPITOR) 10 MG tablet, take 1 tablet by mouth every day at night, Disp: 90 tablet, Rfl: 0 Ljjaowv-Gyvongiqpvx-Qhnzvdbfvm (BREZTRI AEROSPHERE) 160-9-4.8 MCG/ACT Aerosol, Inhale 2 Inhalationsinto the lungs 2 (two) times a day., Disp: 10.7 g, Rfl: 2 buPROPion XL (WELLBUTRIN XL) 150 MG 24 hr tablet, TAKE 2 TABLETS BY MOUTH EVERY DAY, Disp: 180 tablet, Rfl: 1 escitalopram (LEXAPRO) 20 MG tablet, TAKE 1 TABLET BY MOUTH EVERY DAY, Disp: 90 tablet, Rfl: 1 hydroCHLOROthiazide (HYDRODIURIL) 25 MG tablet, take 1 tablet by mouth every day in the morning, Disp: 90 tablet, Rfl: 0 ipratropium-albuterol (DUONEB) 0.5-2.5 (3) MG/3ML Solution, , Disp: , Rfl: lisinopril (PRINIVIL) 40 MG tablet, TAKE ONE TABLET BY MOUTH DAILY AT 9AM, Disp: 180 tablet, Rfl: 1 metFORMIN ER (GLUCOPHAGE-XR) 500 MG 24 hr tablet, TAKE 1 TABLET BY MOUTH EVERY DAY WITH BREAKFAST, Disp: 90 tablet, Rfl: 0 NEBULIZER DEVICE, DME,, Take 1 Device by nebulization every 6 (six) hours as needed., Disp: 1 Device, Rfl: 0 NEBULIZER/TUBING/MOUTHPIECE KIT, DME,, 1 kit by Other route every 6 (six) hours as needed., Disp: 1kit, Rfl: 0 oxybutynin XL (DITROPAN-XL) 5 MG 24 hr tablet, Take 1 tablet (5 mg total) by mouth daily., Disp: 90tablet, Rfl: 0 potassium chloride CR (K-TAB) 10 MEQ Tab CR tablet, TAKE ONE TABLET DAILY Patient must be seen for further refills, Disp: 30 tablet, Rfl: 0 traMADol (ULTRAM) 50 MG tablet, Take 1 tablet (50 mg total) by mouth every 6 (six) hours as needed for Pain. Indications: Chronic Pain, Disp: 60 tablet, Rfl: 0 guaiFENesin-codeine (CHERATUSSIN AC) 100-10 MG/5ML syrup, Take 5 mLs by mouth every 6 (six) hours as needed for Cough. Indications: Cough (Patient not taking: Reported on 12/12/2023), Disp: 118 mL, Rfl: 0 Allergies: Review of patient's allergies indicates: Allergen Reactions Chocolate Hives Penicillins Rash Sulfa Antibiotics Rash Medical History: Past Medical History: Diagnosis Date Anxiety disorder, unspecified Arthritis Arthritis of left knee 11/08/2019 Depression Diabetes mellitus ([facility]) GERD (gastroesophageal reflux disease) Hypertension Overactive bladder Surgical History: Past Surgical History: Procedure Laterality Date ANKLE SURGERY left SECTION COLONOSCOPY N/A 04/27/2020 COLONOSCOPY WITH BIOPSY X 3 performed by Joel Keenan MD at [facility] OR COLONOSCOPY N/A 11/20/2023 Colonoscopy with Polypectomies performed by Joel Keenan MD at [facility] OR [facility] EYE SURGERY FRACTURE SURGERY HERNIA REPAIR HYSTERECTOMY JOINT REPLACEMENT SHOULDER SURG PROC UNLISTED right TONSILLECTOMY TOTAL KNEE ARTHROPLASTY right Social History: Social History Socioeconomic History Marital status: Number of children: 2 Occupational History 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 Tobacco Use Smoking status: Former Packs/day: 0.50 Years: 12.00 Additional pack years: 0.00 Total pack years: 6.00 Types: Cigarettes Quit date: 09/30/1976 Years since quittin.2 Passive exposure: Never Smokeless tobacco: Never Vaping Use Vaping Use: Never used Substance and Sexual Activity Alcohol use: Not Currently Comment: 2 cocktails on some Sundays Drug use: Never Sexual activity: Not Currently Other Topics Concern Service No Blood Transfusions No Caffeine Concern Yes Comment: 2 cups Special Diet Yes Comment: low nithin and low carb Exercise No Family History: Family History Problem Relation Name Age of [...] Crispin Sargent Mental Health Sister Myah Sargent PE: Physical Exam Vitals and nursing note reviewed. HENT: Head: Normocephalic and atraumatic. Eyes: General: No scleral icterus. Conjunctiva/sclera: Conjunctivae normal. Neck: Trachea: No tracheal deviation. Cardiovascular: Rate and Rhythm: Normal rate and regular rhythm. Heart sounds: Normal heart sounds. Pulmonary: Effort: Pulmonary effort is normal. No respiratory distress. Breath sounds: No stridor. Rhonchi present. No wheezing. Comments: Rhonchi scattered over upper lungs Musculoskeletal: General: No deformity. Normal range of motion. Cervical back: Normal range of motion and neck supple. Skin: General: Skin is warm and dry. Findings: No erythema. Neurological: Mental Status: She is alert and oriented to person, place, and time. Gait: Gait is intact. Psychiatric: Mood and Affect: Mood and affect normal. Filed Vitals: 12/12/23 1022 12/12/23 1043 BP: (!) 160/78 (!) 158/76 Pulse: 69 Resp: 18 Temp: 98 ??F (36.7 ??C) TempSrc: Skin SpO2: 96% Weight: 112.9 kg (249 lb) Height: 1.524 m (5') Labs: Labs Reviewed Diagnoses/Impression: 1. Hypertension associated with type 2 diabetes mellitus (HHS/HCC) (CMS/HCC) amLODIPine (NORVASC) 5MG tablet 2. Mucopurulent chronic bronchitis (CMS/HCC HHS/HCC) Pahoykw-Xndlzbbkrzy-Teeiibtcrh (BREZTRI AEROSPHERE) 160-9-4.8 MCG/ACT Aerosol Recommendations and Plan: 1. Mucopurulent chronic bronchitis (CMS/HCC HHS/HCC) - Yqkxeue-Ssoglwluwey-Fokevhojvh (BREZTRI AEROSPHERE) 160-9-4.8 MCG/ACT Aerosol; Inhale 2 Inhalations into the lungs 2 (two) times a day. Dispense: 10.7 g; Refill: 2 Symptoms improving. Due to the ongoing drainage discussed with patient that I want her to try an antihistamine for 2 to 3 weeks and if this is not effective would like for her to try some bdbz-tri-eecehfr Pepcid 20 mg for couple of weeks. To see if maybe this helps with chronic cough. Would like tosee patient back in the office in about 4 to 6 weeks. 2. Hypertension associated with type 2 diabetes mellitus (HHS/HCC) (CMS/[facility]) - amLODIPine (NORVASC) 5 MG tablet; Take 1 tablet (5 mg total) by mouth daily. Dispense: 30 tablet;Refill: 1 Blood pressure has been elevated her last few visits in this office. I want her to monitor her blood pressure at home. In the meantime I did send over some amlodipine 5 mg for her to take once daily.Will reevaluate at follow-up appointment in 1 month. Orders Placed This Encounter ipratropium-albuterol (DUONEB) 0.5-2.5 (3) MG/3ML Solution Wunvbpc-Lfcmcijkpgy-Nxvtbdpmmi (BREZTRI AEROSPHERE) 160-9-4.8 MCG/ACT Aerosol amLODIPine (NORVASC) 5 MG tablet Cannot display discharge medications since this is not an admission. PCP: JENNIFER Davila 12/12/2023 documented in this encounter Plan of Treatment Upcoming Encounters Date Type Department Care Team (Late st Contact Info) Description 10/09/2024 9:30 AM LEASING MACHINE TENDER Office Visit [facility] [address] Carlos Farris MD [address] [facility] [address] [place] [address] 11/02/2024 10:20 AM LEASING MACHINE TENDER Office Visit [facility] Medical Group Family & Internal Medicine - [address] [phone] Sami Liriano DO [address] [place] [address] documented as of this encounter Visit Diagnoses Diagnosis Hypertension associated with type 2 diabetes mellitus ([facility] HHS/[facility])- Primary Mucopurulent chronic bronchitis ([facility]) Mucopurulent chronic bronchitis documented in this encounter Additional Health Concerns Assessment Noted Time PHQ-9 Depression Total Score: 0 10/11/19 22 10:50 AM LEASING MACHINE TENDER documented as of this encounter Care Teams Vehicle Mechanic Relationship Specialty Start Date End Date Sami Liriano DO [address] [place] [address] PCP - General FAMILY PRACTICE 12/24/19 documented as of this encounter
--- OUTSIDE RECORDS SUMMARY | 2024-09-19 12:14 | XMS_ITS | Encounter Summary ---
Author Organization [facility] Address [address] [place] [address]. [place], [place] [address] [place] [address] Care Team Providers Care Bender Machine Operator Name Role Phone Sami Liriano DO Primary Care Provider + Reason for Visit * Reason Onset Date Comments Lab Results 12/06/2023 Encounter Details Date Type Department Care Team (Late st Contact Info) Description 12/06/2023 Telephone [facility] Family & Internal Medicine [place] [id number] [place] [address] Sami Liriano DO [address] [place] [address] Lab Results Social History Tobacco Use Types Packs/Day [...] on file Legal Sex Female 12:43 PM BRICK BAKER Gender Identity Female 12/18/2021 6:31 AM CDT Sexual Orientation Straight 01/15/2022 6: 11 AM CDT 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 Will repeat in 1 month. K BAKER * Melanie Lance MA - 12/06/2023 10:29 AM CST ----- Message from Sami Liriano DO sent at 12/05/2023 9:32 PM BRICK BAKER ----- WBC is again mildly elevated, similar to previous but still elevated. However, if pt was still taking prednisone this may be why. If she was taking prednisone, we should recheck CBC in 1-2 months. Ifshe hadn't taken prednisone for over a week at that time, need to refer to hematology. Pt is low inVitamin D. Recommend 2000 IU supplementation daily. Other labs are still acceptable. Repeat other la bs in 1 year. K BAKER documented in this encounter Plan of Treatment Upcoming Encounters Date Type Department Care Team (Late st Contact Info) Description 10/09/2024 9:30 AM BRICK BAKER Office Visit [facility] [phone] Carlos Farris MD Three [facility] [address] [place] [address] 11/02/2024 10:20 AM BRICK BAKER Office Visit [facility] Group Family & Internal Medicine - [address] [phone] Sami Liriano DO [address] [place] [address] Scheduled Orders Name Type Priority Associated Diagnoses Orde r Schedule CBC W/DIFF AUTOMATED Lab Routine Elevated WBC count Expected: 01/06/2024, Expires: 12/05/2024 documented as of this encounter Visit Diagnoses Diagnosis Elevated WBC count- Primary Leukocytosis, unspecified Mucopurulent chronic bronchitis ([facility]/HCC [facility]/HCC) Mucopurulent chronic bronchitis documented in this encounter Additional Health Concerns Assessment Noted Time PHQ-9 Depression Total Score: 0 10/11/19 22 10:50 AM BRICK BAKER documented as of this encounter Care Teams Bender Machine Operator Relationship Specialty Start Date End Date Sami Liriano DO [address] [place] [address] PCP - General FAMILY PRACTICE 12/24/19 documented as of this encounter
--- OUTSIDE RECORDS SUMMARY | 2024-09-19 12:14 | XMS_ITS | Encounter Summary ---
Author Organization [facility] Address [address] [place] [address]. [place], [place] [address] [place] [address] Care Team Providers Care Onyx Chip Terrazzo Worker Name Role Phone Sami Liriano DO Primary Care Provider + Reason for Visit * Reason Onset Date Comments Health Maintenance Follow Up 02/06/2024 Encounter Details Date Type Department Care Team (Late st Contact Info) Description 02/06/[address] 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 She has not heard back from cardiology as of yet. This nurse called over to cardiology office and left message with Brooke Acosta at [phone] ext- [phone]. Will call patient back once this nurse speak to the office. Opportunity given forall questions to be answered, no further needs voiced at this time. LL-02/06/24 documented in this encounter Plan of Treatment Upcoming Encounters Date Type Department Care Team (Late st Contact Info) Description 10/09/2024 9:30 AM PITCHING COACH Office Visit [facility] [phone] Carlos Farris MD Three [facility] [address] [place] [address] 11/02/2024 10:20 AM PITCHING COACH Office Visit [facility] Family & Internal Medicine - [address] [phone] Sami Liriano DO [address] [place] [address] documented as of this encounter Visit Diagnoses Not on filedocumented in this encounter Additional Health Concerns Assessment Noted Time PHQ-9 Depression Total Score: 0 10/11/19 22 10:50 AM PITCHING COACH documented as of this encounter Care Teams Onyx Chip Terrazzo Worker Relationship Specialty Start Date End Date Sami Liriano DO [address] [place] [address] PCP - General FAMILY PRACTICE 12/24/19 documented as of this encounter
--- OUTSIDE RECORDS SUMMARY | 2024-09-19 12:14 | XMS_ITS | Encounter Summary ---
Author Organization [facility] Address [address] [place] [address]. [place], [place] [address] [place] [address] Care Team Providers Care Sales Closer Name Role Phone Sami Liriano DO Primary Care Provider + Reason for Visit * Reason Onset Date Comments Information 01/31/2024 Encounter Details Date Type Department Care Team (Late st Contact Info) Description 01/31/2024 Telephone [facility] Family & Internal Medicine [id number] [place] [address] Sami Liriano DO [address] [place] [address] Information Social History Tobacco Use Types [...] on file Legal Sex Female 12:43 PM MACHINE STUFFER AUTOMATIC Gender Identity Female 12/18/2021 6:31 AM CDT Sexual Orientation Straight 01/15/2022 6: 11 AM CDT 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 States was told to call and inform PCP after seeing them. documented in this encounter Plan of Treatment Upcoming Encounters Date Type Department Care Team (Late st Contact Info) Description 10/09/2024 9:30 AM MACHINE STUFFER AUTOMATIC Office Visit [facility] [phone] Carlos Farris MD Three [facility] [address] [place] [address] 11/02/2024 10:20 AM MACHINE STUFFER AUTOMATIC Office Visit [facility] Group Family & Internal Medicine - [address] [phone] Sami Liriano DO [address] [place] [address] documented as of this encounter Visit Diagnoses Not on filedocumented in this encounter Additional Health Concerns Assessment Noted Time PHQ-9 Depression Total Score: 0 10/11/19 22 10:50 AM MACHINE STUFFER AUTOMATIC documented as of this encounter Care Teams Sales Closer Relationship Specialty Start Date End Date Sami Liriano DO [address] [place] [address] PCP - General FAMILY PRACTICE 12/24/19 documented as of this encounter
--- OUTSIDE RECORDS SUMMARY | 2024-09-19 12:14 | XMS_ITS | Encounter Summary ---
Author Organization [facility] Address [facility]. [place], [place] [address] [place] [address] Care Team Providers Care Manufacturers Agent Name Role Phone Sami Liriano Nicole AGUIAR Primary Care Provider + Encounter Details Date Type Department Care Team (Latest Contact Info) Description 02/07/2024 Travel Social History Tobacco Use Types Packs/Day Years Used Date Smoking Tobacco: Former Cigarettes 0.5 12 0 09/30/1964 - 09/30/1976 Passive Smoke Exposure: Never Smokeless Tobacco: Never Alcohol Use Standard Drinks/Week Comments Not Currently 0 (1 standard drink = 0.6 oz pur e alcohol) 2 cocktails on some Sundays [facility] Utilities Answer Date Recorded In the past 12 months has e electric, gas, oil, or water [employer] threatened to shut off services in your [...] any time in the past 12 m [facility], were you homeless or living in a correction (including now)? 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 Not on file Not on franck e documented as of this encounter Plan of Treatment Upcoming Encounters Date Type Department Care Team (Late st Contact Info) Description 10/09/2024 9:30 AM ENTREPRENEURIAL FINANCE PROFESSOR Office Visit [facility] [phone] Carlos Farris MD [address] [facility] [address] [place] [address] 11/02/2024 10:20 AM ENTREPRENEURIAL FINANCE PROFESSOR Office Visit [facility] Group Family & Internal Medicine - [address] [phone] Sami Liriano DO [address] [place] [address] documented as of this encounter Visit Diagnoses Not on filedocumented in this encounter Additional Health Concerns Assessment Noted Time PHQ-9 Depression Total Score: 0 10/11/19 22 10:50 AM ENTREPRENEURIAL FINANCE PROFESSOR documented as of this encounter Care Teams Manufacturers Agent Relationship Specialty Start Date End Date Sami Liriano DO [address] [place] [address] PCP - General FAMILY PRACTICE 12/24/19 documented as of this encounter
--- OUTSIDE RECORDS SUMMARY | 2024-09-19 12:14 | XMS_ITS | Encounter Summary ---
Author Organization [facility] Address [address] [place] [address]. [place], [place] [address] [place] [address] Care Team Providers Care Pad Assembler Name Role Phone Sami Liriano Primary Care Provider + Encounter Details Date Type Department Care Team (Late st Contact Info) Description 12/20/2023 Orders Only [facility] Medical Group Orthopedic & Sports Medicine - [place] [address] [place] [address] Manuelito Marcelino PA [address] [place] [address] Social History Tobacco Use Types Packs/Day Years [...] on file Legal Sex Female 12:43 PM TRAINING ADMINISTRATOR Gender Identity Female 12/18/2021 6:31 AM CDT Sexual Orientation Straight 01/15/2022 6: 11 AM CDT 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 Not on file Not on franck e documented as of this encounter Plan of Treatment Upcoming Encounters Date Type Department Care Team (Late st Contact Info) Description 10/09/2024 9:30 AM TRAINING ADMINISTRATOR Office Visit [facility]-[address] [phone] Carlos Farris MD [address] [facility] [address] [place] [address] 11/02/2024 10:20 AM TRAINING ADMINISTRATOR Office Visit [facility] Medical Group Family & Internal Medicine - [address] [phone] Sami Liriano DO [address] [place] [address] Scheduled Orders Name Type Priority Associated Diagnoses Orde r Schedule XR KNEE RT 3V Imaging Routine Arthritis of knee Expected: 12/27/2023, Expires: 12/19/2024 documented as of this encounter Visit Diagnoses Diagnosis Arthritis of knee- Primary Unspecified arthropathy, lower leg documented in this encounter Additional Health Concerns Assessment Noted Time PHQ-9 Depression Total Score: 0 10/11/19 22 10:50 AM TRAINING ADMINISTRATOR documented as of this encounter Care Teams Pad Assembler Relationship Specialty Start Date End Date Sami Liriano DO [address] [place] [address] PCP - General FAMILY PRACTICE 12/24/19 documented as of this encounter
--- OUTSIDE RECORDS SUMMARY | 2024-09-19 12:14 | XMS_ITS | Encounter Summary ---
Author Organization [facility] Address [address] [place] [address]. 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 Gender Identity Female 12/18/2021 6:31 AM CDT Sexual Orientation Straight 01/15/2022 6: 11 AM CDT 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 Not on file Not on franck e documented as of this encounter Plan of Treatment Upcoming Encounters Date Type Department Care Team (Late st Contact Info) Description 10/09/2024 9:30 AM NUCLEAR DESIGN ENGINEER Office Visit [facility] [phone] Carlos Farris MD [address] [facility] [address] [place] [address] 11/02/2024 10:20 AM NUCLEAR DESIGN ENGINEER Office Visit [facility] Family & Internal Medicine - [address] [phone] Sami Liriano DO [address] [place] [address] documented as of this encounter Procedures Procedure Name Priority Date/Time Associated Diagnosis Comments CT GENERIC 01/03/2024 OUTSIDE PT/INR (SCAN ORDER) 01/03/2024 OUTSIDE LAB (SCAN ORDER) 01/03/2024 OUTSIDE LAB (SCAN ORDER) 01/03/2024 OUTSIDE LAB (SCAN ORDER) 01/03/2024 IMAGE GENERIC 01/03/2024 documented in this encounter Results * OUTSIDE PT/INR (SCAN ORDER) (01/03/2024) 01/03/2024 [facility] Scanned SCANNING Final Resu lt * OUTSIDE LAB (SCAN ORDER) (01/03/2024) 01/03/2024 [facility] Scanned SCANNING Final Resu lt * OUTSIDE LAB (SCAN ORDER) (01/03/2024) 01/03/2024 [facility] Scanned SCANNING Final Resu lt * OUTSIDE LAB (SCAN ORDER) (01/03/2024) 01/03/2024 [facility] Scanned SCANNING Final Resu lt * IMAGE GENERIC (01/03/2024) Anatomical Region Laterality Modality Other 01/03/2024 [facility] Scanned SCANNING Final Resu lt * CT GENERIC (01/03/2024) Anatomical Region Laterality Modality Other 01/03/2024 [facility] Scanned SCANNING Final Resu lt documented in this encounter Visit Diagnoses Not on filedocumented in this encounter Additional Health Concerns Assessment Noted Time PHQ-9 Depression Total Score: 0 10/11/19 22 10:50 AM NUCLEAR DESIGN ENGINEER documented as of this encounter Care Teams Typesetting Machine Tender Relationship Specialty Start Date End Date Sami Liriano DO [address] [place] [address] PCP - General FAMILY PRACTICE 12/24/19 documented as of this encounter
--- OUTSIDE RECORDS SUMMARY | 2024-09-19 12:14 | XMS_ITS | Encounter Summary ---
Author Organization [facility] Address [address] [place] [address]. [place], [place] [id number] [place] [address] Care Team Providers Care Life Enrichment Assistant Name Role Phone Sami Gimenez DO Primary Care Provider + Reason for Visit * Reason Onset Date Comments Medication Request 01/13/2024 Encounter Details Date Type Department Care Team (Late st Contact Info) Description 01/13/2024 Telephone [facility] Family & Internal Medicine [id number] [place] [phone] Sami Gimenez DO 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 * Brooke Hernández MA - 01/15/2024 11:12 AM CDT Ok to refill medication or would you like to eval in office? * Winter Espinosa - 01/13/2024 11:19 AM CDT Refill request received from Patient Medication: FUROSEMIDE 20 MG (pt states having swelling in legs recently did not have swelling over winter but came back as weather warmed up) Pharmacy: [id number] - [address] Last visit with SAMI GIMENEZ in FAMILY PRACTICE [facility] Future Appointments Date Time Provider Department Center 01/16/2024 10:20 AM Sami Gimenez DO [facility] [place] 03/06/2024 10:20 AM [facility] [place] [facility] documented in this encounter Plan of Treatment Upcoming Encounters Date Type Department Care Team (Late st Contact Info) Description 10/09/2024 9:30 AM ASSOCIATE BUYER Office Visit [facility] [phone] Carlos Farris MD [address] [facility] [address] [place] [address] 11/02/2024 10:20 AM ASSOCIATE BUYER Office Visit [facility] Family & Internal Medicine - [address] [phone] Sami Gimenez DO [address] [place] [address] documented as of this encounter Visit Diagnoses Diagnosis Localized swelling of both lower legs- Primary documented in this encounter Additional Health Concerns Assessment Noted Time PHQ-9 Depression Total Score: 0 10/11/19 10:50 AM ASSOCIATE BUYER documented as of this encounter Care Teams Life Enrichment Assistant Relationship Specialty Start Date End Date Sami Gimenez DO [address] [place] [address] PCP - General FAMILY PRACTICE 12/24/19 documented as of this encounter
--- OUTSIDE RECORDS SUMMARY | 2024-09-19 12:14 | XMS_ITS | Encounter Summary ---
Author Organization [facility] Address [address] [place] [address]. 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 She is having difficulty walking d/t heaviness in legs. She confirms she is still taking her furosemide and hctz, but hardly urinating at all despite drinking what pt states to be plenty of water. She denies any chest pain, but does have some SOB, but this is a chronic issue for her anyway. She reports approx 6 lbs weight gain since she last weighed herself 2 weeks ago. Discussed with Deb Varela RN. Pt is now scheduled tomorrow with PCP, but urged to go to ER if any worsening of sx. documented in this encounter Plan of Treatment Upcoming Encounters Date Type Department Care Team (Late st Contact Info) Description 10/09/2024 9:30 AM MINIBUS DRIVER Office Visit [facility] [phone] Carlos Farris MD [address] [facility] [address] [place] [address] 11/02/2024 10:20 AM MINIBUS DRIVER Office Visit [facility] Family & Internal Medicine - [place] [address] [place] [address] [place] [address] [place] [address] documented as of this encounter Visit Diagnoses Not on filedocumented in this encounter Additional Health Concerns Assessment Noted Time PHQ-9 Depression Total Score: 0 10/11/19 10:50 AM MINIBUS DRIVER documented as of this encounter Care Teams Vice President Of Product Marketing Relationship Specialty Start Date End Date Sami Liriano DO [address] [place] [address] PCP - General FAMILY PRACTICE 12/24/19 documented as of this encounter
--- OUTSIDE RECORDS SUMMARY | 2024-09-19 12:14 | XMS_ITS | Encounter Summary ---
Author Organization [facility] Address [address] [place] [address]. [place], [place] [id number] [place] [id number] Care Team Providers Care Physical Therapy Teacher Name Role Phone Sami Liriano Primary Care Provider + Reason for Visit * Reason Comments Leg Swelling Shortness Of Breath Encounter Details Date Type Department Care Team (Late st Contact Info) Description 01/28/2024 12:12 PM CDT - 01/28/2024 5:25 PM [address]T Emergency [facility] Emergency Room [address] [place] [address] Yousuf Urrutia MD [address] [place] [id number] Leg Swelling; Shortness Of Breath Discharge Disposition: Home or Self Care (Routine [...] on file Legal Sex Female 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 Gender Identity Female 12/18/2021 6:31 AM CDT Sexual Orientation Straight 01/15/2022 6: 11 AM CDT 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 Not on file Not on file Not on franck e documented as of this encounter Last Filed Vital Signs Vital Sign Reading Time Taken Comments Blood Pressure 171/85 01/28/2024 5:12 PM CDT Pulse 74 01/28/2024 1:00 PM CDT Temperature 36.4 ??C (97.6 ??F) 01/28/2024 1 2:15 PM CDT Respiratory Rate 18 01/28/2024 5:12 PM CDT Oxygen Saturation 96% 01/28/2024 1:00 PM CDT Inhaled Oxygen Concentration - - Weight 116.3 kg (256 lb 6.3 oz) 024 12:15 PM CDT Height 152.4 cm (5') 01/28/2024 12:15 PM CDT Body Mass Index 50.07 01/28/2024 12:15 PM CDT documented in this encounter Discharge Instructions * Attachments The following attachments cannot be sent through Care Everywhere. * Dependent Edema Discharge Instructions (Nigerien) documented in this encounter Medications at Time of Discharge acetaminophen 325 MG tablet Take 2 tablets (650 mg total) by mouth every 6 (six) hours as needed for Pain. albuterol (PROVENTIL) (2.5 MG/3ML) 0.083% nebulizer solutionIndications :Mucopurulent chronic bronchitis ([facility] HHS/HCC),Chronic bronchitis, unspecified chronic bronchitis type ([facility] HHS/[facility]),Bronchitis ,Wheezing Take 3 mLs (2.5 mg total) [...] of major depressive disorder without prior episode ([facility]/HCC) TAKE 1 TABLET BY MOUTH EVERY DAY 90 tablet 1 3 ipratropium-albuter ol (DUONEB) 0.5-2.5 (3) MG/3ML Solution Take 3 mLs by nebulization. 4 amLODIPine (NORVASC) 5 MG tabletIndications:H ypertension associated with type 2 diabetes mellitus (CMS/HCC HHS/HCC) TAKE 1 TABLET(5 MG) BY MOUTH DAILY 90 tablet 4 02/12/20 24 Budeson-Glycopyrrol -Formoterol (BREZTRI AEROSPHERE) 160-9-4.8 MCG/ACT AerosolIndications: Mucopurulent chronic bronchitis (CMS/HCC HHS/HCC) Inhale 2 Inhalations into the lungs 2 (two) times a day. 10.7 g 2 4 07/30/20 24 furosemide (LASIX) 20 MG tabletIndications:L ocalized swelling of both lower legs Take 2 tablets (40 mg total) by mouth daily for 30 days. 60 tablet 4 02/03/20 24 hydroCHLOROthiazide (HYDRODIURIL) 25 MG tabletIndications:H ypertension associated with type 2 diabetes mellitus (CMS/HCC HHS/HCC) take 1 tablet by mouth every day in the morning 90 tablet 4 02/12/20 24 lisinopril (PRINIVIL) 40 MG tabletIndications:E ssential hypertension TAKE ONE TABLET BY MOUTH DAILY AT 9AM 180 tablet 1 2 02/07/20 24 metFORMIN ER (GLUCOPHAGE-XR) 500 MG 24 hr tabletIndications:T ype 2 diabetes mellitus without complication, without long-term current use of insulin (CMS/HCC HHS/HCC) take 1 tablet by mouth every day with breakfast 90 tablet 4 04/30/20 24 NEBULIZER DEVICE, DME,Indications:Muc opurulent chronic bronchitis (CMS/[facility] HHS/HCC) Take 1 Device by nebulization every 6 (six) hours as needed. 1 Device 4 07/06/20 24 NEBULIZER/TUBING/MO UTHPIECE KIT, DME,Indications:Muc opurulent chronic bronchitis (CMS/HCC HHS/HCC) 1 kit by Other route every 6 (six) hours as needed. 1 kit 4 07/06/20 24 potassium chloride CR (K-TAB) 10 MEQ Tab CR tabletIndications:B ilateral lower extremity edema TAKE ONE TABLET DAILY Patient must be seen for further refills 30 tablet 2 03/02/20 24 tiZANidine (ZANAFLEX) 2 MG tabletIndications:M uscle spasm TAKE 1 TABLET(2 MG) BY MOUTH EVERY 6 HOURS NEEDED 20 tablet 4 04/06/20 24 traMADol (ULTRAM) 50 MG tabletIndications:C hronic Pain Take 1 tablet (50 mg total) by mouth every 6 (six) hours as needed for Pain. Indications: Chronic Pain 60 tablet 2 04/22/20 24 documented as of this encounter ED Notes * Yousuf Urrutia MD - 01/28/2024 12:42 PM CDTSummary: ED NOTE Chief Complaint Chief Complaint Patient presents with Leg Swelling Shortness Of Breath History of Present Illness Patient is a 68-year-old female with a past medical history of depression, diabetes, hypertension who presents with leg swelling and shortness of breath. Patient reports that she has had shortness ofbreath ever since 2021. Shortness of breath is no different today than any other day. Worse with ambulation. Present at rest. Has been present since 2021. Is not worse today than any other day she reports. Patient also reports leg swelling. She says that she has had leg swelling for the last few days. She says that over the last 24 hours she has gained 6 pounds. She has some pain in her legs uponambulation. Feels like a pressure in both legs. Nothing makes the symptoms better. Nothing makes them worse. She says that she has only had 1 episode of urination since 3 AM. She has no urge to urinate. Medical History ALLERGIES: Review of patient's allergies indicates: Allergen Reactions Chocolate Hives Penicillins Rash Sulfa Antibiotics Rash MEDICATIONS: Prior to Admission medications Medication Sig Start [...] every day at night 10/21/23 Yes Sami Montano DO Cbbmnbr-Uhgkbchhckg-Oipuzfoytl (BREZTRI AEROSPHERE) 160-9-4.8 MCG/ACT Aerosol Inhale 2 Inhalations into the lungs 2 (two) times a day. 12/12/23 Yes JENNIFER Davila escitalopram (LEXAPRO) 20 MG tablet TAKE 1 TABLET BY MOUTH EVERY DAY 08/28/23 Yes Sami Liriano DO furosemide (LASIX) 20 MG tablet Take 2 tablets (40 mg total) by mouth daily for 30 days. 01/28/24 02/27/24 Yes Yousuf Urrutia MD hydroCHLOROthiazide (HYDRODIURIL) 25 MG tablet take 1 tablet by mouth every day in the morning 10/21/23 Yes Sami Liriano DO ipratropium-albuterol (DUONEB) 0.5-2.5 (3) MG/3ML Solution 12/06/23 Yes Default History Genericprovider lisinopril (PRINIVIL) 40 MG tablet TAKE ONE TABLET BY MOUTH DAILY AT 9AM 06/01/22 Yes Sami Liriano DO potassium chloride CR (K-TAB) 10 MEQ Tab CR tablet TAKE ONE TABLET DAILY Patient must be seen for further refills 09/25/22 Yes Sami Liriano DO tiZANidine (ZANAFLEX) 2 MG tablet TAKE 1 TABLET(2 MG) BY MOUTH EVERY 6 HOURS NEEDED 01/21/24 Yes Sami Liriano DO metFORMIN ER (GLUCOPHAGE-XR) 500 MG 24 hr tablet take 1 tablet by mouth every day with breakfast 01/28/24 Sami Liriano, DO NEBULIZER DEVICE, DME, Take 1 Device by nebulization every 6 (six) hours as needed. 11/18/23 Margarita Liriano, DO NEBULIZER/TUBING/MOUTHPIECE KIT, DME, 1 kit by Other route every 6 (six) hours as needed. 11/18/23 Sami Liriano, DO traMADol (ULTRAM) 50 MG tablet Take 1 tablet (50 mg total) by mouth every 6 (six) hours as needed for Pain. Indications: Chronic Pain 07/03/22 Sami Liriano DO PAST MEDICAL HISTORY: Past Medical History: Diagnosis Date Anxiety disorder, unspecified Arthritis Arthritis of left knee 11/08/2019 Depression Diabetes mellitus ([facility]) GERD (gastroesophageal reflux disease) Hypertension Overactive bladder Positive colorectal cancer screening using Cologuard test 04/19/2020 Added automatically from request for surgery [id number] PAST SURGICAL HISTORY: Past Surgical History: Procedure Laterality Date ANKLE SURGERY left SECTION COLONOSCOPY N/A 04/27/2020 COLONOSCOPY WITH BIOPSY X 3 performed by Joel Keenan MD at [facility] OR COLONOSCOPY N/A 11/20/2023 Colonoscopy with Polypectomies performed by Joel Keenan MD at [facility] OR EGD EYE SURGERY FRACTURE SURGERY HERNIA REPAIR HYSTERECTOMY JOINT REPLACEMENT SHOULDER SURG PROC UNLISTED right TONSILLECTOMY TOTAL KNEE ARTHROPLASTY right FAMILY HISTORY: Family History Problem Relation Name Age of Onset Alzheimers Mother Heart Attack Father Elvin Roths Heart Disease Father Elvin Roths Alzheimers Father Elvin Roths Alcohol Abuse Father Elvin Roths Prostate Cancer Brother Joel Roths Alcohol Abuse Brother Joel Roths Cancer Brother Joel Sargent prostate Colon Cancer Paternal Aunt Alzheimers Maternal Grandmother Heart Disease Paternal Grandfather Alcohol Abuse Sister Isabel Sargent Diabetes Son Crispin Sargent Hypertension Son Crispin Sargent Stroke Son Crispin Sargent Mental Health Sister Myah Sargent SOCIAL HISTORY: Social History Tobacco Use Smoking status: Former Current packs/day: 0.00 Average packs/day: 0.5 packs/day for 12.0 years (6.0 ttl pk-yrs) Types: Cigarettes Start date: 09/30/1964 Quit date: 09/30/1976 Years since quittin.3 Passive exposure: Never Smokeless tobacco: Never Vaping Use Vaping status: Never Used Substance Use Topics Alcohol use: Not Currently Comment: 2 cocktails on some Sundays Drug use: Never Review of Systems Review of Systems Constitutional: Negative for activity change, chills and fever. HENT: Negative for congestion, rhinorrhea and sore throat. Eyes: Negative for redness. Respiratory: Positive for shortness of breath. Negative for cough. Cardiovascular: Negative for chest pain. Gastrointestinal: Negative for abdominal pain, diarrhea, nausea and vomiting. Endocrine: Negative for polyuria. Genitourinary: Negative for dysuria and frequency. Musculoskeletal: Negative for arthralgias. Skin: Negative for rash. Allergic/Immunologic: Negative for immunocompromised state. Neurological: Negative for dizziness and headaches. Hematological: Negative for adenopathy. Psychiatric/Behavioral: Negative for confusion. Physical Exam Filed Vitals: 01/28/24 1215 01/28/24 1300 01/28/24 1712 BP: (!) 143/77 (!) 171/85 Pulse: 83 74 Resp: 20 18 18 Temp: 97.6 ??F (36.4 ??C) TempSrc: Temporal SpO2: 95% 96% Weight: 116.3 kg (256 lb 6.3 oz) Height: 1.524 m (5') Physical Exam Constitutional: General: She is not in acute distress. Appearance: Normal appearance. HENT: Head: Normocephalic. Nose: Nose normal. Mouth/Throat: Mouth: Mucous membranes are moist. Pharynx: Oropharynx is clear. Eyes: Conjunctiva/sclera: Conjunctivae normal. Pupils: Pupils are equal, round, and reactive to light. Cardiovascular: Rate and Rhythm: Normal rate and regular rhythm. Heart sounds: No murmur heard. No gallop. Pulmonary: Effort: Pulmonary effort is normal. No respiratory distress. Breath sounds: No wheezing or rales. Abdominal: General: There is no distension. Tenderness: There is no abdominal tenderness. There is no guarding. Musculoskeletal: General: Swelling present. Cervical back: Neck supple. Comments: Bilateral lower extremity pitting edema that is mild Skin: General: Skin is warm and dry. Capillary Refill: Capillary refill takes less than 2 seconds. Neurological: Mental Status: She is alert and oriented to person, place, and time. Mental status is at baseline. Psychiatric: Mood and Affect: Mood normal. Diagnostic Studies / Procedures ELECTROCARDIOGRAMS: Results for orders placed or performed during the hospital encounter of 01/28/24 [address] 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 Rate 76. Rhythm normal sinus. [place] normal. Intervals DE 196. QRS 93. QTc 439.There are no clear ST segment changes concerning for DE. LABORATORY STUDIES: Results for orders placed or performed during the hospital encounter of 01/28/24 CBC W/DIFF AUTOMATED Result Value Ref Range WBC 11.14 (H) 4.4 - 11.0 x10'3/uL RBC 4.24 (L) 4.50 - 5.10 x10'6/uL HGB 11.7 (L) 12.3 - 15.3 G/DL HCT 36.1 35.9 - 44.6 % MCV 85.1 80.0 - 96.0 FL MCH 27.6 25.3 - 30.9 PG MCHC 32.4 31.0 - 34.1 G/DL RDW 14.4 12.4 - 15.1 % PLT 231 151 - 353 x10'3/uL MPV 9.9 9.6 - 12.0 FL RBC MORPHOLOGY NORMAL PLT MORPH. NORMAL WBC MORPHOLOGY NORMAL LYMPHOCYTES 27.7 15.8 - 45.0 % NEUTROPHILS 63.6 42.1 - 71.9 % MONOCYTES 6.2 5.7 - 12.5 % EOSINOPHILS 1.7 0.0 - 5.6 % BASOPHILS 0.4 0.0 - 1.3 % ABS. NEUTROPHILS 7.08 (H) 1.40 - 6.00 x10'3/uL IMMATURE GRANS 0.4 0.0 - 0.5 % ABS. LYMPHOCYTES 3.09 0.80 - 4.70 x10'3/uL COMPREHENSIVE METABOLIC PANEL Result Value Ref Range GLUCOSE 134 (H) 70 - 99 MG/DL BUN 15 7 - 18 MG/DL CREATININE S/P/B 1.09 (H) 0.55 - 1.02 MG/DL SODIUM S/P/B 138 136 - 145 MMOL/L POTASSIUM S/P/B 3.7 3.5 - 5.1 MMOL/L CHLORIDE S/P/B 102 100 - 108 MMOL/L CO2 28.1 21 - 32 MMOL/L CALCIUM S/P/B 9.2 8.5 - 10.1 MG/DL BILIRUBIN TOTAL S/P/B 1.1 0.2 - 1.2 MG/DL TOTAL PROTEIN S/P/B 7.2 6.4 - 8.2 G/DL ALBUMIN S/P/B 3.7 3.4 - 5.0 G/DL AST 23 15 - 37 U/L ALT 30 14 - 55 U/L ALKALINE PHOSPHATASE S/P/B 87 50 - 136 U/L ANION GAP 7.9 5 - 15 MMOL/L BUN CREATININE RATIO 13.8 6 - 26 A/G RATIO 1.1 1.0 - 2.0 RATIO GFR ESTIMATE 55 (L) >90 ML/MIN/1.73 M2 TROPONIN, QUANT Result Value Ref Range TROPONIN I HIGH SENSITIVITY 9 <51 ng/L PRO-BRAIN NATRIURETIC PEPTIDE Result Value Ref Range PRO-B TYPE NATRIURETIC PEPTIDE 176 (H) <125 PG/ML URINALYSIS WI REFLEX TO CULTURE Specimen: URINE, CLEAN CATCH Result Value Ref Range COLOR (U) YELLOW TRANSPARENCY CLEAR SPECIFIC GRAVITY (U) 1.015 1.000 - 1.030 U PH 5.5 5.0 - 9.0 LEUKOCYTES (U) NEGATIVE NEGATIVE NITRITES NEGATIVE NEGATIVE PROTEIN RANDOM (U) NEGATIVE NEGATIVE GLUCOSE (U) NEGATIVE NEGATIVE KETONES (U) NEGATIVE NEGATIVE BILIRUBIN (U) NEGATIVE NEGATIVE BLOOD (U) NEGATIVE NEGATIVE WBC/HPF NONE SEEN 0 - 5 /HPF RBC/HPF NONE SEEN 0 - 5 /HPF EPI/HPF FEW /HPF CULTURE & SENSITIVITY INDICATED? CULTURE IS NOT INDICATED IMAGING STUDIES XR CHEST PORTABLE Final Result by User, [id number] (01/27 0993) EXAMINATION: CHEST RADIOGRAPH SINGLE VIEW Exam date/time: 01/28/2024 12:56 PM Reason For Exam: shortness of breath Leg swelling. Comparison: November 18, 2023 Technique: Upright AP view of the chest Findings: Heart size normal. Proximal airways unremarkable. No suspicious pulmonary lesion, pneumothorax, or pleural effusion. =====IMPRESSION:===== No acute findings.. Poor inspiration limits exam. Ordered By: YOUSUF URRUTIA Interpreted By: [place], 01/28/2024 1:44 PM ED Course / Medical Decision Making Ddx: Heart failure, renal failure, liver failure, pneumonia, pneumothorax Patient is a 68-year-old female with a past medical history of depression, diabetes, hypertension who presents with leg swelling and shortness of breath. On arrival vitals remarkable for blood pressure of 143/77. On exam patient is mild bilateral lower extremity pitting edema. EKG was without ST segment changes concerning for DE. CBC was largely within norm limits. CMP was without BOONE. BUN was 15and creatinine of 1.09. Patient's troponin is negative. BNP is 176 which is indeterminate. It is unclear what is causing patient's swelling. She is on 20 mg of furosemide. She was given 20 mg IV and had good urine output. We will double her furosemide. Her postvoid residual is 150. For this reason Natarajan catheter was placed. Will start patient on tamsulosin. Urinalysis was sent UA was without findings of infection. Patient is on oxybutynin. We took her off oxybutynin and started her on tamsulosin. Patient was told to follow-up with urology for urinary retention. In the meantime we will go up on the Lasix for lower extremity swelling. We will have patient follow-up with PCP and return for new or worsening symptoms. Patient agreeable to plan and was discharged in good condition. Clinical Impression Urinary retention (Primary) Lower extremity edema Disposition: Discharge Yousuf Urrutia MD 01/31/24 0726 * Radha Christina RN - 01/28/2024 12:15 PM CDT Patient ambulatory to ED via self c/o increased bilateral leg swelling and shortness of breath since Tuesday 01/23. Hx CHF. Takes HCTZ and lasix. Patient reports decreased urine output as well. Was seen by PCP today and recommended to come to ED. PCP reports 6lb. Weight gain in last 2 weeks. Patient denies chest pain, cough, or other complaints. documented in this encounter Plan of Treatment Upcoming Encounters Date Type Department Care Team (Late st Contact Info) Description 10/09/2024 9:30 AM SOCIAL INSURANCE ANALYST Office Visit [facility]-[address] [phone] Carlos Farris MD [facility] [address] [place] [address] 11/02/2024 10:20 AM SOCIAL INSURANCE ANALYST Office Visit [facility] - [address] [phone] Sami Liriano DO [address] [place] [id number] documented as of this encounter Procedures Procedure Name Priority Date/Time Associated Diagnosis Comments URINALYSIS WI REFLEX TO CULTURE STAT 01/28/2024 4:20 PM CDT XR CHEST PORTABLE STAT 01/28/2024 1:0 2 PM CDT PRO-BRAIN NATRIURETIC PEPTIDE STAT 01/28/2024 12:32 PM CDT COMPREHENSIVE METABOLIC PANEL STAT 01/28/2024 12:32 PM CDT CBC W/DIFF AUTOMATED STAT 01/28/2024 12:32 PM CDT TROPONIN, QUANT STAT 01/28/2024 12:32 PM CDT ECG 12-LEAD Routine 01/28/2024 12:24 PM CDT documented in this encounter Results * URINALYSIS WI REFLEX TO CULTURE (01/28/2024 4:20 PM CDT) COLOR (U) YELLOW 01/28/2024 4:34 PM CDT [facility] TRANSPARENCY CLEAR 01/28/2024 4:34 PM CDT [facility] SPECIFIC GRAVITY (U) 1.015 1.000 - 1.030 01/28/2024 4:34 PM CDT [facility] U PH 5.5 5.0 - 9.0 01/28/2024 4:34 PM CDT [facility] LEUKOCYTES (U) NEGATIVE NEGATIVE 01/28/2024 4:34 PM CDT [facility] NITRITES NEGATIVE NEGATIVE 01/28/2024 4:34 PM CDT [facility] PROTEIN RANDOM (U) NEGATIVE NEGATIVE 01/28/2024 4:34 PM CDT [facility] GLUCOSE (U) NEGATIVE NEGATIVE 01/28/2024 4:34 PM CDT [facility] KETONES MG/DL (U) NEGATIVE NEGATIVE 01/28/2024 4:34 PM CDT [facility] BILIRUBIN (U) NEGATIVE NEGATIVE 01/28/2024 4:34 PM CDT [facility] BLOOD (U) NEGATIVE NEGATIVE 01/28/2024 4:34 PM CDT [facility] WBC/HPF NONE SEEN 0 - 5 /HPF 01/28/2024 4:34 PM CDT [facility] RBC/HPF NONE SEEN 0 - 5 /HPF 01/28/2024 4:34 PM CDT [facility] EPI/HPF FEW /HPF 01/28/2024 4:34 PM CDT [facility] CULTURE & SENSITIVITY INDICATED? CULTURE IS NOT INDICATED 01/28/2024 4:34 PM CDT [facility] URINE SPECIMEN OBTAINED BY CLEAN CATCH PROCEDURE / Unknown 01/28/2024 4:20 PM CDT Yousuf Urrutia MD URINE ORDERABLES Final Result [facility] [address] [place] [address], * XR CHEST PORTABLE (01/28/2024 1:02 PM CDT) Anatomical Region Laterality Modality Chest Radiographic Jody ging 01/28/2024 1:44 PM CDT Impressions 01/28/2024 1:45 PM CDT =====IMPRESSION:===== No acute findings.. Poor inspiration limits exam. Ordered By: YOUSUF URRUTIA Interpreted By: [place], 01/28/2024 1:44 PM Narrative 01/28/2024 1:45 PM CDT EXAMINATION: CHEST RADIOGRAPH SINGLE VIEW Exam date/time: 01/28/2024 12:56 PM Reason For Exam: ??shortness of breath ? Leg swelling. Comparison: November 18, 2023 Technique: Upright AP view of the chest Findings: ??Heart size normal. Proximal airways unremarkable. No suspicious pulmonary lesion, pneumothorax, or pleural effusion. Procedure Note Tereso Neves MD - 01/28/2024 EXAMINATION: CHEST RADIOGRAPH SINGLE VIEW Exam date/time: 01/28/2024 12:56 PM Reason For Exam: shortness of breath Leg swelling. Comparison: November 18, 2023 Technique: Upright AP view of the chest Findings: Heart size normal. Proximal airways unremarkable. No suspiciouspulmonary lesion, pneumothorax, or pleural effusion. =====IMPRESSION:===== No acute findings.. Poor inspiration limits exam. Ordered By: YOUSUF URRUTIA Interpreted By: [place], 01/28/2024 1:44 PM Yuosuf Urrutia MD GENERAL IMAGING Final R esult * (ABNORMAL) PRO-BRAIN NATRIURETIC PEPTIDE (01/28/2024 12:32 PM CDT) PRO-B TYPE NATRIURETIC PEPTIDE 176(H) <125 PG/ML 01/28/2024 1:05 PM CDT [facility] Comment: CUT POINTS ESTABLISHED BY [...] OF 89% AND 72% FOR ACUTE CHF. 01/28/2024 12:3 2 PM CDT Yousuf Urrutia MD LABORATORY Final R esult [facility] [address] [place] [address], * TROPONIN, QUANT (01/28/2024 12:32 PM CDT) TROPONIN I HIGH SENSITIVITY 9 <51 ng/L 01/28/2024 1:03 PM CDT [facility] Comment: HIGH DOSES OF BIOTIN, TROPONIN-SPECIFIC AUTOANTIBODIES, AND ANTIBODY THERAPY CONTAINING HAMA MAY INTERFERE WITH THIS TEST RESULT. CORRELATION TO CLINICAL HISTORY AND PRESENTATION RECOMMENDED. 01/28/2024 12:3 2 PM CDT us Yousuf Urrutia MD LABORATORY Final R esult [facility] [address] [place] [address], [place] [phone] * (ABNORMAL) COMPREHENSIVE METABOLIC PANEL (01/28/2024 12:32 PM CDT) Pathologist [facility] GLUCOSE 134(H) 70 - 99 MG/DL 01/28/2024 1:05 PM CDT [facility] BUN 15 7 - 18 MG/DL 01/28/2024 1:05 PM CDT [facility] CREATININE S/P/B 1.09(H) 0.55 - 1.02 MG/DL 01/28/2024 1:05 PM CDT [facility] SODIUM S/P/B 138 136 - 145 MMOL/L 01/28/2024 1:05 PM CDT [facility] POTASSIUM S/P/B 3.7 3.5 - 5.1 MMOL/L 01/28/2024 1:05 PM T [facility] CHLORIDE S/P/B 102 100 - 108 MMOL/L 01/28/2024 1:05 PM T [facility] CO2 28.1 21 - 32 MMOL/L 01/28/2024 1:05 PM T [facility] CALCIUM S/P/B 9.2 8.5 - 10.1 MG/DL 01/28/2024 1:05 PM CDT [facility] BILIRUBIN TOTAL S/P/B 1.1 0.2 - 1.2 MG/DL 01/28/2024 1:05 PM CDT [facility] TOTAL PROTEIN S/P/B 7.2 6.4 - 8.2 G/DL 01/28/2024 1:05 PM CDT [facility] ALBUMIN S/P/B 3.7 3.4 - 5.0 G/DL 01/28/2024 1:05 PM T [facility] AST 23 15 - 37 U/L 01/28/2024 1:05 PM T [facility] ALT 30 14 - 55 U/L 01/28/2024 1:05 PM T [facility] ALKALINE PHOSPHATASE S/P/B 87 50 - 136 U/L 01/28/2024 1:05 PM T [facility] ANION GAP 7.9 5 - 15 MMOL/L 01/28/2024 1:05 PM T [facility] BUN CREATININE RATIO 13.8 6 - 26 01/28/2024 1:05 PM T [facility] A/G RATIO 1.1 1.0 - 2.0 RATIO 01/28/2024 1:05 PM [facility] GFR ESTIMATE 55(L) >90 ML/MIN/1.7 3 M2 01/28/2024 1:05 PM T [facility] Comment: NOTE: eGFR is not calculated for patients <18 years of age. This is an estimated GFR calculation using the new CKD EPI creatinine equation without race and so does not require a correction factor for race. This estimated GFR should not be used for calculating drug doses. 01/28/2024 12:3 2 PM CDT us Yousuf Urrutia MD LABORATORY Final R esult [facility] [address] [place] [address], [place] [phone] * (ABNORMAL) CBC W/DIFF AUTOMATED (01/28/2024 12:32 PM CDT) WBC 11.14(H) 4.4 - 11.0 x10'3/uL 01/28/2024 12:50 PM CDT [facility] RBC 4.24(L) 4.50 - 5.10 x10'6/uL 01/28/2024 12:50 PM CDT [facility] HGB 11.7(L) 12.3 - 15.3 G/DL 01/28/2024 12:50 PM CDT [facility] HCT 36.1 35.9 - 44.6 % 01/28/2024 12:50 PM CDT [facility] MCV 85.1 80.0 - 96.0 FL 01/28/2024 12:50 PM CDT [facility] MCH 27.6 25.3 - 30.9 PG 01/28/2024 12:50 PM CDT [facility] MCHC 32.4 31.0 - 34.1 G/DL 01/28/2024 12:50 PM CDT [facility] RDW 14.4 12.4 - 15.1 % 01/28/2024 12:50 PM T [facility] PLT 231 151 - 353 x10'3/uL 01/28/2024 12:50 PM T [facility] MPV 9.9 9.6 - 12.0 FL 01/28/2024 12:50 PM CDT [facility] RBC MORPHOLOGY NORMAL 01/28/2024 12:50 PM CDT [facility] PLT MORPH. NORMAL 01/28/2024 12:50 PM T [facility] WBC MORPHOLOGY NORMAL 01/28/2024 12:50 PM CDT [facility] LYMPHOCYTES % 27.7 15.8 - 45.0 % 01/28/2024 12:50 PM CDT [facility] NEUTROPHILS % 63.6 42.1 - 71.9 % 01/28/2024 12:50 PM CDT [facility] MONOCYTES % 6.2 5.7 - 12.5 % 01/28/2024 12:50 PM CDT [facility] EOSINOPHILS 1.7 0.0 - 5.6 % 01/28/2024 12:50 PM CDT [facility] BASOPHILS 0.4 0.0 - 1.3 % 01/28/2024 12:50 PM CDT [facility] ABS. NEUTROPHILS 7.08(H) 1.40 - 6.00 x10'3/uL 01/28/2024 12:50 PM CDT [facility] IMMATURE GRANS % 0.4 0.0 - 0.5 % 01/28/2024 12:50 PM CDT [facility] ABS. LYMPHOCYTES 3.09 0.80 - 4.70 x10'3/uL 01/28/2024 12:50 PM CDT [facility] 01/28/2024 12:3 2 PM CDT Yousuf Urrutia MD LABORATORY Final R esult [facility] [address] [place] [address], * ECG 12 lead (01/28/2024 12:24 PM CDT) 01/28/2024 12:2 4 PM CDT Narrative [facility] RAD - 01/30/2024 9:51 PM CDT [facility] ? Test Date: ?2024-01-28 Pat Name: ? HAIR SHANDS ?Department: ?? 85 ? Room: ? EXAM 303 Gender: ? Female ? 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 TH : ?1955 ? Requested By: YOUSUF FRANCISCA Order Number: [id number] ? Reading MD: ?? Elvin Wood ? Measurements Intervals ?[place] ? Rate: ? 76 ? P: ?61 DE: ? 196 ?QRS: ?61 QRSD: ? 93 ? T: ?66 QT: ? 408 ? QTc: ?461 ? Interpretive Statements SINUS RHYTHM WITH OCCASIONAL VENTRICULAR PREMATURE COMPLEXES NONSPECIFIC T-WAVE ABNORMALITY No previous ECG available for comparison Procedure Note Elvin Wood MD - 01/30/2024 [facility] Test Date: 2024-01-28 Pat Name: HAIR SARGENT Department: 85 Room: EXAM 303 Gender: Female Supply Room Clerk: : 1955 Requested By: YOUSUF URRUTIA Order Number: [id number] Reading MD: Elvin Wood Measurements Intervals [place] Rate: 76 P: 61 DE: 196 QRS: 61 QRSD: 93 T: 66 QT: 408 QTc: 461 Interpretive Statements SINUS RHYTHM WITH OCCASIONAL VENTRICULAR PREMATURE COMPLEXES NONSPECIFIC T-WAVE ABNORMALITY No previous ECG available for comparison us Yousuf Urrutia MD ECG ORDERABLES Final R esult [facility] RAD documented in this encounter Visit Diagnoses Diagnosis Urinary retention- Primary Retention of urine, unspecified Lower extremity edema Edema Localized swelling of both lower legs documented in this encounter Administered Medications Inactive Administered Medications - up to 3 most recent administrations Medication Order MAR Action Action Date Dose Rate Site furosemide (LASIX) injection 20 mg 20 mg, Intravenous, Once, 1 dose, On Sat01/28/24 at 1345, Administer IV push 20-40mg/min. Given 01/28/2024 1:50 PM CDT 20 mg documented in this encounter Active and Recently Administered Medications Times are shown in CDT. Scheduled Medication Order 01/26/2024 01/27/2024 01/28/2024 furosemide (LASIX) injection 20 mg (COMPLETED) 20 mg, Intravenous, Once, 1 dose, On Sat01/28/24 at 1345, Administer IV push 20-40mg/min. 1350 (Given - Provid er: Kanwal Heath RN) documented in this encounter Additional Health Concerns Assessment Noted Time PHQ-9 Depression Total Score: 0 10/11/19 22 10:50 AM SOCIAL INSURANCE ANALYST documented as of this encounter Care Teams Physical Therapy Teacher Relationship Specialty Start Date End Date Sami Liriano DO [address] [place] [phone] PCP - General FAMILY PRACTICE 12/24/19 documented as of this encounter
--- OUTSIDE RECORDS SUMMARY | 2024-09-19 12:14 | XMS_ITS | Encounter Summary ---
Author Organization [facility] Address [facility] [place], [place] [address] [place] [address] Care Team Providers Care Sales Performance Analyst Name Role Phone Sami Liriano Primary Care Provider + Encounter Details Date Type Department Care Team (Latest Contact Info) Description 01/31/2024 Scan HEALTH INFO SRVCS Scanned, Doc Med Group Social History Tobacco Use Types Packs/Day Years Used Date Smoking Tobacco: Former Cigarettes 0.5 12 0 09/30/1964 - 09/30/1976 Passive Smoke Exposure: Never Smokeless Tobacco: Never Alcohol Use Standard Drinks/Week Comments Not Currently 0 (1 standard drink = 0.6 oz pur e alcohol) 2 cocktails on some Sundays [facility] deltamethodities Answer Date Recorded In the past [address] [facility] [employer], gas, oil, or water [place] threatened to shut off services in your [...] were you homeless or living in a senior living (including now)? 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 Not on file Not [...] st Contact Info) Description 10/09/2024 9:30 AM CIGARETTE AND FILTER CHIEF INSPECTOR Office Visit [facility] [phone] Carlos Farris MD [address] [facility] [address] [place] [address] 11/02/2024 10:20 AM CIGARETTE AND FILTER CHIEF INSPECTOR Office Visit [facility] Family & Internal Medicine - [address] [phone] Sami Liriano DO [address] [place] [address] documented as of this encounter Goals Goal Patient Goal Type Associated Problems Recent Progress Patient-Stated? Author Patient will return to prior living situation and remain independent in ADLs upon discharge from hospital Lifestyle No Sylvia Ventura, ARTEMIO documented as of this encounter Visit Diagnoses Not on filedocumented in this encounter Additional Health Concerns Assessment Noted Time PHQ-9 Depression Total Score: 0 10/11/19 22 10:50 AM CIGARETTE AND FILTER CHIEF INSPECTOR documented as of this encounter Care Teams Sales Performance Analyst Relationship Specialty Start Date End Date Sami Liriano DO [address] [place] [phone] PCP - General FAMILY PRACTICE 12/24/19 documented as of this encounter
--- OUTSIDE RECORDS SUMMARY | 2024-09-19 12:14 | XMS_ITS | Encounter Summary ---
Author Organization [facility] Address [address] [place] [address]. [place], [place] [address] [place] [address] Care Team Providers Care Junior Architect Name Role Phone Sami Liriano Primary Care Provider + Reason for Visit * Reason Onset Date Comments Medication 12/12/2023 Encounter Details Date Type Department Care Team (Late st Contact Info) Description 12/12/2023 Telephone [facility] Family & Internal Medicine [facility] [address] [place] [address] Barb Sexton APNP [facility] [place] [address] Medication Social History Tobacco Use Types [...] on file Legal Sex Female 12:43 PM DIGITAL MEDIA SALES CONSULTANT Gender Identity Female 12/18/2021 6:31 AM CDT Sexual Orientation Straight 01/15/2022 6: 11 AM CDT 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 * JENNIFER Davila - 12/12/2023 10:55 AM CDT Let patient know that I did review her blood pressure over the last couple of visits in office herewhich was noted to be elevated. I did send over 5 mg of amlodipine in addition to her lisinopril and hydrochlorothiazide. Would like for her to continue all 3 medications. Will reevaluate this in 1 month at her follow-up. documented in this encounter Plan of Treatment Upcoming Encounters Date Type Department Care Team (Late st Contact Info) Description 10/09/2024 9:30 AM DIGITAL MEDIA SALES CONSULTANT Office Visit [facility]-[address] [phone] Carlos Farris MD Three [facility] [address] [facility] [place] [address] 11/02/2024 10:20 AM DIGITAL MEDIA SALES CONSULTANT Office Visit [facility] Family & Internal Medicine - [address] [phone] Sami Liriano DO [address] [place] [address] documented as of this encounter Visit Diagnoses Not on filedocumented in this encounter Additional Health Concerns Assessment Noted Time PHQ-9 Depression Total Score: 0 10/11/19 10:50 AM DIGITAL MEDIA SALES CONSULTANT documented as of this encounter Care Teams Junior Architect Relationship Specialty Start Date End Date Sami Liriano DO [address] [place], [place] [phone] PCP - General FAMILY PRACTICE 12/24/19 documented as of this encounter
--- OUTSIDE RECORDS SUMMARY | 2024-09-19 12:14 | XMS_ITS | Encounter Summary ---
Author Organization [facility] Address [address] [place] [address]. 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 Not on file Not on franck e documented as of this encounter Plan of Treatment Upcoming Encounters Date Type Department Care Team (Late st Contact Info) Description 10/09/2024 9:30 AM MERCERIZING RANGE CONTROLLER Office Visit [facility] [phone] Carlos Farris MD Three [facility] [address] [place] [address] 11/02/2024 10:20 AM MERCERIZING RANGE CONTROLLER Office Visit [facility] Family & Internal Medicine - [address] [phone] Sami Liriano DO [address] [place] [address] documented as of this encounter Visit Diagnoses Not on filedocumented in this encounter Additional Health Concerns Assessment Noted Time PHQ-9 Depression Total Score: 0 10/11/19 22 10:50 AM MERCERIZING RANGE CONTROLLER documented as of this encounter Care Teams Waiver Analyst Relationship Specialty Start Date End Date Sami Liriano DO [address] [place] [phone] PCP - General FAMILY PRACTICE 12/24/19 documented as of this encounter
--- OUTSIDE RECORDS SUMMARY | 2024-09-19 12:14 | XMS_ITS | Encounter Summary ---
Author Organization [facility] Address [address] [place] [address]. 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 Not on file Not on franck e documented as of this encounter Plan of Treatment Upcoming Encounters Date Type Department Care Team (Late st Contact Info) Description 10/09/2024 9:30 AM COMMUNICATIONS BILLING ANALYST Office Visit [facility] [phone] Carlos Farris MD Three [facility] [address] [place] [address] 11/02/2024 10:20 AM COMMUNICATIONS BILLING ANALYST Office Visit [facility] Family & Internal Medicine - [address] [phone] Sami Liriano DO [address] [place] [address] documented as of this encounter Visit Diagnoses Not on filedocumented in this encounter Additional Health Concerns Assessment Noted Time PHQ-9 Depression Total Score: 0 10/11/19 22 10:50 AM COMMUNICATIONS BILLING ANALYST documented as of this encounter Care Teams Flask Carrier Relationship Specialty Start Date End Date Sami Liriano DO [address] [place] [phone] PCP - General FAMILY PRACTICE 12/24/19 documented as of this encounter
--- OUTSIDE RECORDS SUMMARY | 2024-09-19 12:14 | XMS_ITS | Encounter Summary ---
Author Organization [facility] Address [facility] [place] [address] [place] [address] Care Team Providers Care Community Health Director Name Role Phone Sami Liriano Primary Care Provider + Reason for Visit * Reason Onset Date Comments Results 12/03/2023 Encounter Details Date Type Department Care Team (Late st Contact Info) Description 12/03/2023 Telephone [facility] Multispecialty Care - [facility] [address] [facility] [place] [phone] Joel Keenan MD 3 [facility] [address] [place] [address] Results Social History Tobacco Use Types Packs/Day [...] on file Legal Sex Female 12:43 PM INSPECTOR METAL CAN Gender Identity Female 12/18/2021 6:31 AM CDT Sexual Orientation Straight 01/15/2022 6: 11 AM CDT 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 These have no cancer potential. Repeat colonoscopy in 7 to 10 years. ECTOR METAL CAN ECTOR METAL CAN documented in this encounter Plan of Treatment Upcoming Encounters Date Type Department Care Team (Late st Contact Info) Description 10/09/2024 9:30 AM INSPECTOR METAL CAN Office Visit [facility]-[address] [phone] Carlos Farris MD Three [facility] [address] [place] [address] 11/02/2024 10:20 AM INSPECTOR METAL CAN Office Visit [facility] Family & Internal Medicine - [address] [phone] Sami Liriano DO [address] [place] [address] documented as of this encounter Visit Diagnoses Not on filedocumented in this encounter Additional Health Concerns Assessment Noted Time PHQ-9 Depression Total Score: 0 10/11/19 22 10:50 AM INSPECTOR METAL CAN documented as of this encounter Care Teams Community Health Director Relationship Specialty Start Date End Date Sami Liriano DO [address] [place] [address] PCP - General FAMILY PRACTICE 12/24/19 documented as of this encounter
--- OUTSIDE RECORDS SUMMARY | 2024-09-19 12:14 | XMS_ITS | Encounter Summary ---
Author Organization [facility] Address [address] [place] [address]. [place] [id number] [place], [place] [id number] Care Team Providers Care Licensed Electrician Name Role Phone Sami Liriano DO Primary Care Provider + Reason for Visit * Reason Comments Edema Encounter Details Date Type Department Care Team (Late st Contact Info) Description 01/28/2024 10:40 AM CDT Office Visit [facility] Family & Internal Medicine [address] [phone] Sami Liriano DO [address] [place] [id number] Edema Social History Tobacco Use Types [...] on file Legal Sex Female 12:43 PM SOIL CHEMIST Gender Identity Female 12/18/2021 6:31 AM CDT Sexual Orientation Straight 01/15/2022 6: 11 AM CDT 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 Not on file Not on franck e documented as of this encounter Last Filed Vital Signs Vital Sign Reading Time Taken Comments Blood Pressure 144/72 01/28/2024 11:30 AM CDT Pulse 75 01/28/2024 10:52 AM CDT Temperature 36.2 ??C (97.2 ??F) 01/28/2024 10:52 AM C DT Respiratory Rate 20 01/28/2024 10:52 AM CDT Oxygen Saturation 97% 01/28/2024 10:52 AM CDT Inhaled Oxygen Concentration - - Weight 115.9 kg (255 lb 8 oz) 01/28/2024 10:52 A M CDT Height 152.4 cm (5') 01/28/2024 10:52 AM CDT Body Mass Index 49.9 01/28/2024 10:52 AM CDT documented in this encounter Progress Notes * Sami Liriano, - 01/28/2024 10:40 AM CDT Images from the original note were not included. GENERAL OFFICE VISIT Encounter Date: 01/28/2024 Chief Complaint: 68-year-old female presents for Edema HPI: Pt presents for edema. She noted swelling since Saturday, in her whole body. Pt has noted heaviness in legs with walking. She also is taking her HCTZ and furosemide but is not urinating frequently, maybe one time daily (she uses adult diapers). Pt has SOB and has gained about 6 lbs in the previous 2 weeks. She notes pain all over as well. Pt had been to ER on 01/03/24 at [place] and was found tohave hypomagnesemia, but she did not follow-up specifically for this issue. Review of Systems Constitutional: Negative for fever. Respiratory: Positive for shortness of breath. See HPI Cardiovascular: Positive for leg swelling. Negative for chest pain. Musculoskeletal: Positive for myalgias. Patient Active Problem List Diagnosis Alopecia Hypertension associated with type 2 diabetes mellitus ([facility]/HCC) Arthritis of left knee Overactive bladder Depression Pharyngoesophageal dysphagia ALLYSON positive Stage 3a chronic kidney disease ([facility]) Severe obstructive sleep apnea Hyperlipidemia associated with type 2 diabetes mellitus ([facility]) BMI 45.0-49.9, adult ([facility]) Generalized osteoarthritis of multiple sites Inflammatory arthritis Urinary tract infection Morbid (severe) obesity due to excess calories ([facility]) Hx of adenomatous colonic polyps Family hx of colon cancer Body mass index (BMI) 45.0-49.9, adult ([facility]) Current moderate episode of major depressive disorder without prior episode ([facility]) Past Medical History: Diagnosis Date Anxiety disorder, unspecified Arthritis Arthritis of left knee 11/08/2019 Depression Diabetes mellitus ([facility]) GERD (gastroesophageal reflux disease) Hypertension Overactive bladder Positive colorectal cancer screening using Cologuard test 04/19/2020 Added automatically from request for surgery [id number] Past Surgical History: Procedure Laterality Date ANKLE SURGERY left SECTION COLONOSCOPY N/A 04/27/2020 COLONOSCOPY WITH BIOPSY X 3 performed by Joel Keenan MD at [facility] OR COLONOSCOPY N/A 11/20/2023 Colonoscopy with Polypectomies performed by Joel Keenan MD at [facility] OR EGD EYE SURGERY FRACTURE SURGERY [...] Diabetes Son Crispin Sargent Hypertension Son Crispin Roths Stroke Son Crispin Sargent Mental Health Sister Myah Sargent Social History Socioeconomic History Marital status: Spouse name: Not on file Number of children: 2 Years of education: Not on file Highest education level: Not on file Occupational History 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 Tobacco Use Smoking status: Former Current packs/day: [...] Social History Narrative Not on file Social Determinants of Health Financial Resource Strain: Not on file Food Insecurity: Not on file Transportation Needs: Not on file Physical Activity: Not on file Stress: Not on file Social Connections: Not on file Intimate Partner Violence: Not on file Housing Stability: Not on file Immunization History Administered Date(s) Administered Dtap 06/30/2011 Dtap (Acel-Immune) 06/30/2011 Pneumococcal (Pneumovax 23) 09/19/2021 Pneumococcal (Prevnar 13) 09/05/2020 Current Outpatient Medications Medication Sig Dispense Refill acetaminophen 325 MG tablet Take 1 tablet (325 mg total) by mouth. Take 2 in the am and 2 tabs in the pm and 1 PRN albuterol (PROVENTIL) (2.5 MG/3ML) 0.083% nebulizer solution Take 3 mLs (2.5 mg total) by nebulization every 6 (six) hours as needed for Wheezing. 360 mL 0 albuterol sulfate HFA 108 (90 Base) MCG/ACT inhaler Inhale 2 puffs into the lungs every 4 (four) hours as needed for Wheezing or Shortness of breath. 18 g 2 amLODIPine (NORVASC) 5 MG tablet TAKE 1 TABLET(5 MG) BY MOUTH DAILY 90 tablet 0 atorvastatin (LIPITOR) 10 MG tablet take 1 tablet by mouth every day at night 90 tablet 0 Kktgory-Cexiftildcg-Moivqzdpzk (BREZTRI AEROSPHERE) 160-9-4.8 MCG/ACT Aerosol Inhale 2 Inhalations into the lungs 2 (two) times a day. 10.7 g 2 escitalopram (LEXAPRO) 20 MG tablet TAKE 1 TABLET BY MOUTH EVERY DAY 90 tablet 1 furosemide (LASIX) 20 MG tablet Take 1 tablet (20 mg total) by mouth daily. 90 tablet 0 hydroCHLOROthiazide (HYDRODIURIL) 25 MG tablet take 1 tablet by mouth every day in the morning 90 tablet 0 ipratropium-albuterol (DUONEB) 0.5-2.5 (3) MG/3ML Solution lisinopril (PRINIVIL) 40 MG tablet TAKE ONE TABLET BY MOUTH DAILY AT 9AM 180 tablet 1 metFORMIN ER (GLUCOPHAGE-XR) 500 MG 24 hr tablet TAKE 1 TABLET BY MOUTH EVERY DAY WITH BREAKFAST 90tablet 0 NEBULIZER DEVICE, DME, Take 1 Device by nebulization every 6 (six) hours as needed. 1 Device 0 NEBULIZER/TUBING/MOUTHPIECE KIT, DME, 1 kit by Other route every 6 (six) hours as needed. 1 kit 0 oxybutynin XL (DITROPAN-XL) 5 MG 24 hr tablet Take 1 tablet (5 mg total) by mouth daily. 90 tablet 0 potassium chloride CR (K-TAB) 10 MEQ Tab CR tablet TAKE ONE TABLET DAILY Patient must be seen for further refills 30 tablet 0 tiZANidine (ZANAFLEX) 2 MG tablet TAKE 1 TABLET(2 MG) BY MOUTH EVERY 6 HOURS NEEDED 20 tablet 0 traMADol (ULTRAM) 50 MG tablet Take 1 tablet (50 mg total) by mouth every 6 (six) hours as needed for Pain. Indications: Chronic Pain 60 tablet 0 buPROPion XL (WELLBUTRIN XL) 150 MG 24 hr tablet TAKE 2 TABLETS BY MOUTH EVERY DAY (Patient not taking: Reported on 01/28/2024) 180 tablet 1 guaiFENesin-codeine (CHERATUSSIN AC) 100-10 MG/5ML syrup Take 5 mLs by mouth every 6 (six) hours asneeded for Cough. Indications: Cough (Patient not taking: Reported on 12/12/2023) 118 mL 0 No current facility-administered medications for this visit. Current Outpatient Medications on File Prior to Visit Medication Sig acetaminophen 325 MG tablet Take 1 tablet (325 mg total) by mouth. Take 2 in the am and 2 tabs in the pm and 1 PRN albuterol (PROVENTIL) (2.5 MG/3ML) 0.083% nebulizer solution Take 3 mLs (2.5 mg total) by nebulization every 6 (six) hours as needed for Wheezing. albuterol sulfate HFA 108 (90 Base) MCG/ACT inhaler Inhale 2 puffs into the lungs every 4 (four) hours as needed for Wheezing or Shortness of breath. amLODIPine (NORVASC) 5 MG tablet TAKE 1 TABLET(5 MG) BY MOUTH DAILY atorvastatin (LIPITOR) 10 MG tablet take 1 tablet by mouth every day at night Ekrtueq-Dwdummfzbfq-Kivtqiavpi (BREZTRI AEROSPHERE) 160-9-4.8 MCG/ACT Aerosol Inhale 2 Inhalations into the lungs 2 (two) times a day. escitalopram (LEXAPRO) 20 MG tablet TAKE 1 TABLET BY MOUTH EVERY DAY furosemide (LASIX) 20 MG tablet Take 1 tablet (20 mg total) by mouth daily. hydroCHLOROthiazide (HYDRODIURIL) 25 MG tablet take 1 tablet by mouth every day in the morning ipratropium-albuterol (DUONEB) 0.5-2.5 (3) MG/3ML Solution lisinopril (PRINIVIL) 40 MG tablet TAKE ONE TABLET BY MOUTH DAILY AT 9AM metFORMIN ER (GLUCOPHAGE-XR) 500 MG 24 hr tablet TAKE 1 TABLET BY MOUTH EVERY DAY WITH BREAKFAST NEBULIZER DEVICE, DME, Take 1 Device by nebulization every 6 (six) hours as needed. NEBULIZER/TUBING/MOUTHPIECE KIT, DME, 1 kit by Other route every 6 (six) hours as needed. oxybutynin XL (DITROPAN-XL) 5 MG 24 hr tablet Take 1 tablet (5 mg total) by mouth daily. potassium chloride CR (K-TAB) 10 MEQ Tab CR tablet TAKE ONE TABLET DAILY Patient must be seen for further refills tiZANidine (ZANAFLEX) 2 MG tablet TAKE 1 TABLET(2 MG) BY MOUTH EVERY 6 HOURS NEEDED traMADol (ULTRAM) 50 MG tablet Take 1 tablet (50 mg total) by mouth every 6 (six) hours as needed for Pain. Indications: Chronic Pain buPROPion XL (WELLBUTRIN XL) 150 MG 24 hr tablet TAKE 2 TABLETS BY MOUTH EVERY DAY (Patient not taking: Reported on 01/28/2024) guaiFENesin-codeine (CHERATUSSIN AC) 100-10 MG/5ML syrup Take 5 mLs by mouth every 6 (six) hours asneeded for Cough. Indications: Cough (Patient not taking: Reported on 12/12/2023) No current facility-administered medications on file prior to visit. Review of patient's allergies indicates: Allergen Reactions Chocolate Hives Penicillins Rash Sulfa Antibiotics Rash Objective: Filed Vitals: 01/28/24 1052 01/28/24 1130 BP: (!) 169/71 (!) 144/72 Pulse: 75 Resp: 20 Temp: 97.2 ??F (36.2 ??C) SpO2: 97% Weight: 115.9 kg (255 lb 8 oz) Height: 1.524 m (5') Physical Exam Vitals and nursing note reviewed. HENT: Head: Normocephalic and atraumatic. Right Ear: External ear normal. Left Ear: External ear normal. Eyes: Conjunctiva/sclera: Conjunctivae normal. Cardiovascular: Rate and Rhythm: Normal rate and regular rhythm. Pulmonary: Effort: Pulmonary effort is normal. Musculoskeletal: Comments: Swelling noted in hands and B/L LE's with 2+ pitting edema Neurological: General: No focal deficit present. Mental Status: She is alert. Psychiatric: Comments: Anxious Assessment & Plan: Jolly Deal was seen today for edema. Diagnoses and all orders for this visit: Leg swelling Shortness of breath Discussion/Summary: Noted patient that given presentation of shortness of breath, swelling all over, notably decreased urination despite frequent hydration and diuretic use, and weight gain can be suggestive of acute renal failure and/or acute congestive heart failure. Discussed risk and benefits of different treatment approaches today. After discussion of risk and benefits, patient will go by her personal vehicle to [facility] for further evaluation. Report called over by Deb Varela RN. Will follow-up depending upon results of this evaluation and likely admission. Patient verbalized understanding. Sami Liriano DO documented in this encounter Plan of Treatment Upcoming Encounters Date Type Department Care Team (Late st Contact Info) Description 10/09/2024 9:30 AM SOIL CHEMIST Office Visit [facility] [phone] Carlos Farris MD [facility] [address] [place] [address] 11/02/2024 10:20 AM SOIL CHEMIST Office Visit [facility] Family & Internal Medicine - [address] [phone] Sami Liriano DO [address] [place] [id number] documented as of this encounter Visit Diagnoses Diagnosis Leg swelling- Primary Swelling of limb Shortness of breath documented in this encounter Additional Health Concerns Assessment Noted Time PHQ-9 Depression Total Score: 0 10/11/19 22 10:50 AM SOIL CHEMIST documented as of this encounter Care Teams Licensed Electrician Relationship Specialty Start Date End Date Sami Liriano DO [address] [place] [id number] PCP - General FAMILY PRACTICE 12/24/19 documented as of this encounter
--- OUTSIDE RECORDS SUMMARY | 2024-09-19 12:14 | XMS_ITS | Encounter Summary ---
Author Organization [facility] Address [address] [place] [address]. [place], [place] [address] [place] [address] Care Team Providers Care Cane Weigher Helper Name Role Phone Sami Liriano DO Primary Care Provider + Reason for Referral * Consultation (Urgent) - Authorized Specialty Diagnoses / Procedures Referred By Contact Referred To Contact CARDIOLOGY / Cardiology Diagnoses Leg swelling Shortness of breath Stage 3a chronic kidney disease ([facility]) Hypertension associated with type 2 diabetes mellitus ([facility]) Procedures OFFICE/OUTPATIENT NEW LOW MDM 30-44 MINUTES OFFICE/OUTPT VISIT,NEW,LEVL IV OFFICE/OUTPT VISIT,NEW,LEVL V OFFICE/OUTPT VISIT,EST,LEVL III OFFICE/OUTPT VISIT,EST,LEVL IV OFFICE/OUTPT VISIT,EST,LEVL V Sami Liriano DO [address] [place] [address] Phone: tel: fax: [facility] [address] Phone: tel: fax: Referral ID Status Reason Start Date Expiration Date Visits Requested Visits Authorized [id number] Authorized Specialty Services 02/03/2024 03/04/2025 99 99 Reason for Visit * Reason Comments Urinary Concern The patient saw Keiko olivera. The patient is not happy with the urologist she saw. The patient has MRI ordered. The patient is confused about her visit and what to do. Encounter Details Date Type Department Care Team (Late st Contact Info) Description 02/03/2024 10:40 AM CDT Office Visit [facility] Family & Internal Medicine [address] [phone] Sami Liriano, [address] [place] [address] Urinary Concern (The patient saw Urology. The patient is not happy with the urologist she saw. The patient has MRI ordered. The patient is confused about her visit and what to do. 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 Not on file Not on franck e documented as of this encounter Last Filed Vital Signs Vital Sign Reading Time Taken Comments Blood Pressure 154/70 02/03/2024 10:54 AM CDT Pulse 74 02/03/2024 10:54 AM CDT Temperature 36.6 ??C (97.9 ??F) 02/03/2024 1 0:54 AM CDT Respiratory Rate 16 02/03/2024 10:5 4 AM CDT Oxygen Saturation 98% 02/03/2024 10: 54 AM CDT Inhaled Oxygen Concentration - - Weight 113.2 kg (249 lb 9.6 oz) 024 10:54 AM CDT Height 152.4 cm (5') 02/03/2024 10:54 AM CDT Body Mass Index 48.75 02/03/2024 10:54 AM CDT documented in this encounter Progress Notes * Sami Liriano, DO - 02/03/2024 10:40 AM CDT Images from the original note were not included. GENERAL OFFICE VISIT Encounter Date: 02/03/2024 Chief Complaint: 68-year-old female presents for Urinary Concern (The patient saw Urology. The patient is not happy with the urologist she saw. The patient has MRI ordered. The patient is confused about her visit andwhat to do. ) HPI: Pt presents for ER follow-up. Pt was seen on 01/28/24 per our recommendation. Pt had labs drawn that were mostly unremarkable, showing better kidney function than typical for her and a BNP that was less than 300. Urine was negative for protein. She is currently taking 40 mg BID for her symptoms. Ptwas given a catheter and sent home. Pt did see urology since last OV. Per pt, they did not believe this was a bladder issue and removed her catheter. They referred to cardiology and order an MRI of either the pelvis or abdomen. Pt will see them again in 2 weeks. Pt is urinating more but not at her baseline. Her breathing and swelling have improved, although both are still present. Pt has lost 7 lbs since last OV. No other new symptoms. Review of Systems Constitutional: Negative for fever. Respiratory: Positive for shortness of breath. See HPI Cardiovascular: Positive for leg swelling. Negative for chest pain. Musculoskeletal: Positive for myalgias. Patient Active Problem List Diagnosis Alopecia Hypertension associated with type 2 diabetes mellitus ([facility]) Arthritis of left knee Overactive bladder Depression Pharyngoesophageal dysphagia ALLYSON positive Stage 3a chronic kidney disease ([facility]) Severe obstructive sleep apnea Hyperlipidemia associated with type 2 diabetes mellitus ([facility]) BMI 45.0-49.9, adult ([facility]) Generalized osteoarthritis of multiple sites Inflammatory arthritis Urinary tract infection Morbid (severe) obesity due to excess calories ([facility]) Hx of adenomatous colonic polyps Family hx of colon cancer Body mass index (BMI) 45.0-49.9, adult ([facility]) Current moderate episode of major depressive disorder without prior episode ([facility]) Past Medical History: Diagnosis Date Anxiety disorder, unspecified Arthritis Arthritis of left knee 11/08/2019 Depression Diabetes mellitus ([facility]) GERD (gastroesophageal reflux disease) Hypertension Overactive bladder Positive colorectal cancer screening using Cologuard test 04/19/2020 Added automatically from request for surgery [id number] Past Surgical History: Procedure Laterality Date ANKLE SURGERY left SECTION COLONOSCOPY N/A 04/27/2020 COLONOSCOPY WITH BIOPSY X 3 performed by Joel Keenan MD at [facility] OR COLONOSCOPY N/A 11/20/2023 Colonoscopy with Polypectomies performed by Joel Keenan MD at [facility] OR EGD EYE SURGERY FRACTURE SURGERY HERNIA REPAIR HYSTERECTOMY JOINT REPLACEMENT SHOULDER SURG PROC UNLISTED right TONSILLECTOMY TOTAL KNEE ARTHROPLASTY right Family History Problem Relation Name Age of Onset Alzheimers Mother Heart Attack Father Elvin Roths Heart Disease Father Elvin Roths Alzheimers Father Elvin Roths Alcohol Abuse Father Elvin Roths Prostate Cancer Brother Joel Shands Alcohol Abuse Brother Joel Shands Cancer Brother Joel Sargent prostate Colon Cancer [...] level: Not on file Occupational History 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 10.7 g 2 escitalopram (LEXAPRO) 20 MG tablet TAKE 1 TABLET BY MOUTH EVERY DAY 90 tablet 1 furosemide (LASIX) 40 MG tablet Take 2 tabs in the AM and 1 tab in the PM 90 tablet 2 hydroCHLOROthiazide (HYDRODIURIL) 25 MG tablet take 1 tablet by mouth every day in the morning 90 tablet 0 ipratropium-albuterol (DUONEB) 0.5-2.5 (3) MG/3ML Solution lisinopril (PRINIVIL) 40 MG tablet TAKE ONE TABLET BY MOUTH DAILY AT 9AM 180 tablet 1 metFORMIN ER (GLUCOPHAGE-XR) 500 MG 24 hr tablet take 1 tablet by mouth every day with breakfast 90tablet 0 NEBULIZER DEVICE, DME, Take 1 Device by nebulization every 6 (six) hours as needed. 1 Device 0 NEBULIZER/TUBING/MOUTHPIECE KIT, DME, 1 kit by Other route every 6 (six) hours as needed. 1 kit 0 potassium chloride CR (K-TAB) 10 MEQ [...] Pain. Indications: Chronic Pain 60 tablet 0 No current facility-administered medications for [...] tablet by mouth every day at night Ixhgogk-Slgydpakzdu-Lwpbrsypyn (BREZTRI AEROSPHERE) 160-9-4.8 MCG/ACT Aerosol Inhale 2 Inhalations into the lungs 2 (two) times a day. escitalopram (LEXAPRO) 20 MG tablet TAKE 1 TABLET BY MOUTH EVERY DAY hydroCHLOROthiazide (HYDRODIURIL) 25 MG tablet take 1 [...] Rash Sulfa Antibiotics Rash Objective: Filed Vitals: 02/03/24 1054 BP: (!) 154/70 Pulse: 74 Resp: 16 Temp: 97.9 ??F (36.6 ??C) TempSrc: Skin SpO2: 98% Weight: 113.2 kg (249 lb 9.6 oz) Height: 1.524 m (5') Physical Exam Vitals and nursing note reviewed. HENT: Head: Normocephalic and atraumatic. Right Ear: External ear normal. Left Ear: External ear normal. Eyes: Conjunctiva/sclera: Conjunctivae normal. Cardiovascular: Rate and Rhythm: Normal rate and regular rhythm. Pulmonary: Effort: Pulmonary effort is normal. Breath sounds: Normal breath sounds. Abdominal: Palpations: Abdomen is soft. Tenderness: There is no abdominal tenderness. Musculoskeletal: Comments: B/L LE swelling, improved from previous but still present Skin: General: Skin is warm and dry. Findings: No rash. Neurological: General: No focal deficit present. Mental Status: She is alert. Assessment & Plan: Jolly Deal was seen today for urinary concern. Diagnoses and all orders for this visit: Leg swelling - furosemide (LASIX) 40 MG tablet; Take 2 tabs in the AM and 1 tab in the PM - Ambulatory referral to Cardiology, Adult ([facility]) - USE ECHOCARDIOGRAM; Future - COMPREHENSIVE METABOLIC PANEL; Future - PRO-BRAIN NATRIURETIC PEPTIDE; Future - CBC W/DIFF AUTOMATED; Future - MAGNESIUM; Future Shortness of breath - Ambulatory referral to Cardiology, Adult ([facility]) - USE ECHOCARDIOGRAM; Future - COMPREHENSIVE METABOLIC PANEL; Future - PRO-BRAIN NATRIURETIC PEPTIDE; Future - CBC W/DIFF AUTOMATED; Future - MAGNESIUM; Future Stage 3a chronic kidney disease ([facility]) - Ambulatory referral to Cardiology, Adult ([facility]) - COMPREHENSIVE METABOLIC PANEL; Future - PRO-BRAIN NATRIURETIC PEPTIDE; Future - CBC W/DIFF AUTOMATED; Future - MAGNESIUM; Future Hypertension associated with type 2 diabetes mellitus ([facility]) - Ambulatory referral to Cardiology, Adult ([facility]) - COMPREHENSIVE METABOLIC PANEL; Future - PRO-BRAIN NATRIURETIC PEPTIDE; Future - CBC W/DIFF AUTOMATED; Future - MAGNESIUM; Future Discussion/Summary: Will increase furosemide again today. With urology ruling out urological etiology of symptoms and with stable kidney function without protein in urine, cardiac etiology is most likely of symptoms. Will request records from urology and follow-up with urology as requested. Will order labs to be done next week. Will order echocardiogram and place referral to cardiology. Will have patient follow-up later this month as scheduled and sooner if needed. Patient verbalized understanding. Sami Liriano DO documented in this encounter Plan of Treatment Upcoming Encounters Date Type Department Care Team (Late st Contact Info) Description 10/09/2024 9:30 AM INFANT CHILDCARE PROVIDER Office Visit [facility] [phone] Carlos Farris MD [facility] [address] [facility] [place] [address] 11/02/2024 10:20 AM INFANT CHILDCARE PROVIDER Office Visit [facility] Family & Internal Medicine - [address] [phone] Sami Liriano DO [address] [place] [address] Scheduled Orders Name Type Priority Associated Diagnoses Orde r Schedule COMPREHENSIVE METABOLIC PANEL Lab Routine Leg swelling Shortness of breath Stage 3a chronic kidney disease (CMS/HCC HHS/HCC) Hypertension associated with type 2 diabetes mellitus ([facility]) Expected: 02/03/2024, Expires: 02/02/2025 PRO-BRAIN NATRIURETIC PEPTIDE Lab Routine Leg swelling Shortness of breath Stage 3a chronic kidney disease (CMS/HCC HHS/HCC) Hypertension associated with type 2 diabetes mellitus (CMS/HCC HHS/HCC) Expected: 02/03/2024, Expires: 02/02/2025 CBC W/DIFF AUTOMATED Lab Routine Leg swelling Shortness of breath Stage 3a chronic kidney disease (CMS/HCC HHS/HCC) Hypertension associated with type 2 diabetes mellitus (CMS/HCC HHS/HCC) Expected: 02/03/2024, Expires: 02/02/2025 MAGNESIUM Lab Routine Leg swelling Shortness of breath Stage 3a chronic kidney disease (CMS/HCC HHS/HCC) Hypertension associated with type 2 diabetes mellitus (CMS/HCC HHS/HCC) Expected: 02/03/2024, Expires: 02/02/2025 Scheduled Referrals Name Type Priority Associated Diagnoses Orde r Schedule Ambulatory referral to Cardiology, Adult ([facility]) Referral Routine Leg swelling Shortness of breath Stage 3a chronic kidney disease ([facility]CC) Hypertension associated with type 2 diabetes mellitus ([facility]) Ordered: 02/03/2024 documented as of this encounter Visit Diagnoses Diagnosis Leg swelling- Primary Swelling of limb Shortness of breath Stage 3a chronic kidney disease ([facility]CC) Hypertension associated with type 2 diabetes mellitus ([facility]) documented in this encounter Additional Health Concerns Assessment Noted Time PHQ-9 Depression Total Score: 0 10/11/19 22 10:50 AM INFANT CHILDCARE PROVIDER documented as of this encounter Care Teams Cane Weigher Helper Relationship Specialty Start Date End Date Sami Liriano DO [address] [place] [address] PCP - General FAMILY PRACTICE 12/24/19 documented as of this encounter
--- OUTSIDE RECORDS SUMMARY | 2024-09-19 12:14 | XMS_ITS | Encounter Summary ---
Author Organization [facility] Address [facility]. 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 Not on file Not on franck e documented as of this encounter Progress Notes * TAN Jara - 02/04/2024 3:40 PM CDT Left message to schedule cardiology consult per Dr Liriano documented in this encounter Plan of Treatment Upcoming Encounters Date Type Department Care Team (Late st Contact Info) Description 10/09/2024 9:30 AM BRUSH LOADER AND HANDLE ATTACHER Office Visit [facility] [phone] Carlos Farris MD [facility] [address] [place] [address] 11/02/2024 10:20 AM BRUSH LOADER AND HANDLE ATTACHER Office Visit [facility] Family & Internal Medicine - [address] [phone] Sami Liriano DO [address] [place] [address] documented as of this encounter Visit Diagnoses Not on filedocumented in this encounter Additional Health Concerns Assessment Noted Time PHQ-9 Depression Total Score: 0 10/11/19 22 10:50 AM BRUSH LOADER AND HANDLE ATTACHER documented as of this encounter Care Teams Quality Supervisor Relationship Specialty Start Date End Date Sami Liriano DO [address] [place] [phone] PCP - General FAMILY PRACTICE 12/24/19 documented as of this encounter
--- OUTSIDE RECORDS SUMMARY | 2024-09-19 12:14 | XMS_ITS | Encounter Summary ---
Author Organization [facility] Address [address] [place] [address]. 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 Not on file Not on franck e documented as of this encounter Plan of Treatment Upcoming Encounters Date Type Department Care Team (Late st Contact Info) Description 10/09/2024 9:30 AM AFTER SCHOOL COUNSELOR Office Visit [facility] [address] [place] [address] Carlos Farris MD [address] [facility] [address] [place] [address] 11/02/2024 10:20 AM AFTER SCHOOL COUNSELOR Office Visit [facility] Family & Internal Medicine - [address] [phone] Sami Liriano DO [address] [place] [address] documented as of this encounter Procedures Procedure Name Priority Date/Time Associated Diagnosis Comments OUTSIDE LAB COVID-19 (SCAN ORDER) Routine 01/03/2024 documented in this encounter Results * OUTSIDE LAB COVID-19 (01/03/2024) CORONAVIRUS SARS COV 2 PCR (RESP) NOT DETECTED NOT DETECTED HS ONBASE 01/03/2024 us Doc Med Group Scanned SCANNING Final Resu lt HS ONBASE documented in this encounter Visit Diagnoses Not on filedocumented in this encounter Additional Health Concerns Assessment Noted Time PHQ-9 Depression Total Score: 0 10/11/19 22 10:50 AM AFTER SCHOOL COUNSELOR documented as of this encounter Care Teams Oil Sales And Service Rep Relationship Specialty Start Date End Date Sami Liriano DO [address] [place] [phone] PCP - General FAMILY PRACTICE 12/24/19 documented as of this encounter
--- OUTSIDE RECORDS SUMMARY | 2024-09-19 12:15 | XMS_ITS | Encounter Summary ---
Author Organization [facility] Address [facility] [place], [place] [address] [place] [address] Care Team Providers Care Manager Produce Name Role Phone Sami Liriano Primary Care Provider + Encounter Details Date Type Department Care Team (Latest Contact Info) Description 09/09/2023 Travel Social History Tobacco Use Types Packs/Day Years Used Date Smoking Tobacco: Former Cigarettes 1 1976 Passive Smoke Exposure: Never Smokeless Tobacco: Never Alcohol Use Standard Drinks/Week Comments Yes 0 (1 standard drink = 0.6 oz pur e alcohol) 2 cocktails on some Sundays AUDIT-C Answer Date Recorded Frequency of Alcohol Consumption 2-3 times a wee k 10/29/2019 Average Number of Drinks 1 or 2 020 Frequency of Binge Drinking Never 10/02 PHQ-2 Answer Date Recorded Patient Health Questionnaire-2 Score 0 12/19/2022 Comments No Sex and Gender Information Value Date Recorded Sex Assigned at Not on file Legal Sex Female 12:43 PM PHARMACEUTICAL PLANT OPERATOR Gender Identity Female 12/18/2021 6:31 AM CDT Sexual Orientation Straight 01/15/2022 6: 11 AM CDT 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 Not on file Not on franck e documented as of this encounter Plan of Treatment Upcoming Encounters Date Type Department Care Team (Late st Contact Info) Description 10/09/2024 9:30 AM PHARMACEUTICAL PLANT OPERATOR Office Visit [facility] [phone] Carlos Farris MD [address] [facility] [address] [place] [address] 11/02/2024 10:20 AM PHARMACEUTICAL PLANT OPERATOR Office Visit [facility] Family & Internal Medicine - [address] [phone] Sami Liriano DO [address] [place] [address] documented as of this encounter Visit Diagnoses Not on filedocumented in this encounter Additional Health Concerns Assessment Noted Time PHQ-9 Depression Total Score: 0 10/11/19 22 10:50 AM PHARMACEUTICAL PLANT OPERATOR documented as of this encounter Care Teams Manager Produce Relationship Specialty Start Date End Date Sami Liriano DO [address] [place] [address] PCP - General FAMILY PRACTICE 12/24/19 documented as of this encounter
--- OUTSIDE RECORDS SUMMARY | 2024-09-19 12:15 | XMS_ITS | Encounter Summary ---
Author Organization [facility] Address [address] [place] [address]. [place], [place] [phone] [place] [address] Care Team Providers Care Extension Worker Name Role Phone Sami Liriano DO Primary Care Provider + Encounter Details Date Type Department Care Team (Late st Contact Info) Description 09/26/2023 [id number] Message Enc 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 Family & Internal Medicine - [address] [phone] Sami Liriano DO [address] [place] [address] documented as of this encounter Visit Diagnoses Not on filedocumented in this encounter Additional Health Concerns Infection Onset Date Last Indicated Resolved Time COVID-19 Rule Out 11/01/2023 11/01/2023 11/01/2023 2:42 PM VISITOR SERVICES SPECIALIST Assessment Noted Time PHQ-9 Depression Total Score: 0 10/11/19 22 10:50 AM VISITOR SERVICES SPECIALIST documented as of this encounter Care Teams Extension Worker Relationship Specialty Start Date End Date Sami Liriano DO [address] [place] [phone] PCP - General FAMILY PRACTICE 12/24/19 documented as of this encounter
--- OUTSIDE RECORDS SUMMARY | 2024-09-19 12:15 | XMS_ITS | Encounter Summary ---
Author Organization [facility] Address [facility]6 [facility]. [place], [place] [address] [place] [address] Care Team Providers Care Tour Bus Driver Name Role Phone RomeofroylanNatalie lozoyachary Nicole AGUIAR Primary Care Provider + Reason for Visit * Reason Onset Date Comments Prior Authorization 10/18/2023 Colonoscopy- [id number] Encounter Details Date Type Department Care Team (Late st Contact Info) Description 10/18/2023 Telephone [facility] Medical Group Multispecialty Care - [facility] 3 [facility], [address] [place] [phone] Puma Keenan MD 3 [facility] [address] [place] [address] Prior Authorization (Colonoscopy-[id number]) Social History Tobacco Use Types Packs/Day Years [...] on file Legal Sex Female 12:43 PM FAMILY HELPER Gender Identity Female 12/18/2021 6:31 AM CDT Sexual Orientation Straight 01/15/2022 6: 11 AM CDT 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 Not on file Not on franck e documented as of this encounter Progress Notes * Yissel Hawk MA - 10/18/2023 11:42 AM CST Fri Oct 18, 2023 12:43:11 PM EST JOLLY SARGENT [address] [place] [place] [address] ID:[id number] Referring Provider: PUMA KEENAN 3 [facility] [address], [place] [id number] TIN:[id number] Servicing Facility: [address] [address] Ph:[phone] TIN:[id number] Servicing Provider: PUMA KEENAN 3 [facility] [address], [place] [address] Ph:[phone] TIN:[id number] Category: Health Services Review Service: Surgical Facility: Off [facility] Certification: Initial Requested Dates: Nov 20, 2023 - February 18, 2024 Diagnosis codes: 1. Z12.11 Encounter for screening for malignant neoplasm of colon 2. Z86.010 Personal history of colonic polyps Requested Services: 1. 24479: REMOVAL OF POLYPS OR GROWTHS OF LARGE BOWEL USING AN ENDOSCOPE WITH MECHANICAL SNARE Status: CERTIFIED Servicing Provider:PUMA KEENAN; TIN:[id number]; [place] [address] 1 2. 93017: BIOPSY OF LARGE BOWEL USING A FLEXIBLE ENDOSCOPE Status: CERTIFIED Servicing Provider:PUMA KEENAN; TIN:[id number]; [place] [address] 1 3. 56183: DIAGNOSTIC EXAM OF LARGE BOWEL USING A FLEXIBLE ENDOSCOPE Status: CERTIFIED Servicing Provider:PUMA KEENAN; TIN:[id number]; [place] [address] 1 Status: APPROVED Authorization #: [id number] Message: Payment is based on member eligibility, medical necessity review, where applicable and [facility] provider contractual agreement. Authorization does not guarantee payment. History 4. Certified3. Data Sent2. Data Requested1. LY HELPER documented in this encounter Plan of Treatment Upcoming Encounters Date Type Department Care Team (Late st Contact Info) Description 10/09/2024 9:30 AM FAMILY HELPER Office Visit [facility] [phone] Carlos Farris MD Three [facility] [address] [place] [address] 11/02/2024 10:20 AM FAMILY HELPER Office Visit [facility] Medical Group Family & Internal Medicine - [address] [phone] [place] [address] [place] [address] documented as of this encounter Visit Diagnoses Not on filedocumented in this encounter Additional Health Concerns Assessment Noted Time PHQ-9 Depression Total Score: 0 10/11/19 22 10:50 AM FAMILY HELPER documented as of this encounter Care Teams Tour Bus Driver Relationship Specialty Start Date End Date Sami Liriano DO [address] [place] [address] PCP - General FAMILY PRACTICE 12/24/19 documented as of this encounter
--- OUTSIDE RECORDS SUMMARY | 2024-09-19 12:15 | XMS_ITS | Encounter Summary ---
Author Organization [facility] Address [facility]6 [facility]. [place], [place] [address] [place] [address] Care Team Providers Care R[employer]her [employer]chant [employer] Name Role Phone Sami Liriano Primary Care Provider + Encounter Details Date Type Department Care Team (Late st Contact Info) Description 11/18/2023 Orders Only [facility] Day [facility] [address] [place] [address] Joel Keenan MD [address] [place] [phone] Social History Tobacco Use Types Packs/Day Years [...] on file Legal Sex Female 12:43 PM SPINNER FRAME Gender Identity Female 12/18/2021 6:31 AM CDT Sexual Orientation Straight 01/15/2022 6: 11 AM CDT 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 Not on file Not on franck e documented as of this encounter Plan of Treatment Upcoming Encounters Date Type Department Care Team (Late st Contact Info) Description 10/09/2024 9:30 AM SPINNER FRAME Office Visit [facility]-[address] [phone] Carlos Farris MD [address] [facility] [address] [place] [address] 11/02/2024 10:20 AM SPINNER FRAME Office Visit [facility] Medical Group Family & Internal Medicine - [address] [phone] Sami Liriano DO [address] [place] [address] documented as of this encounter Visit Diagnoses Not on filedocumented in this encounter Additional Health Concerns Assessment Noted Time PHQ-9 Depression Total Score: 0 10/11/19 10:50 AM SPINNER FRAME documented as of this encounter Care Teams [employer] Relationship Specialty Start Date End Date Sami Liriano DO [address] [place] [address] PCP - General FAMILY PRACTICE 12/24/19 documented as of this encounter
--- OUTSIDE RECORDS SUMMARY | 2024-09-19 12:15 | XMS_ITS | Encounter Summary ---
Author Organization [facility] Address [address] [place] [address]. [place], [place] [id number] [place] [address] Care Team Providers Care Hearing Impaired Teacher Name Role Phone Sami Liriano DO Primary Care Provider + Reason for Visit * Reason Comments Hypertension 3 months Encounter Details Date Type Department Care Team (Late st Contact Info) Description 07/26/2023 9:40 AM CDT Office Visit [facility] Medical Group Family & Internal Medicine [place] [id number] [place] [address] Sami Liriano DO [address] [place] [address] Hypertension (3 months) Social History Tobacco Use Types Packs/Day Years Used Date Smoking Tobacco: Former Cigarettes 1 1976 Passive Smoke Exposure: Never Smokeless Tobacco: Never Tobacco Cessation:Counseling Given: Not Answered Alcohol Use Standard Drinks/Week Comments Yes 0 [...] on file Legal Sex Female 12:43 PM CUSTOM DRESSMAKER Gender Identity Female 12/18/2021 6:31 AM CDT Sexual Orientation Straight 01/15/2022 6: 11 AM CDT 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 Not on file Not on franck e documented as of this encounter Last Filed Vital Signs Vital Sign Reading Time Taken Comments Blood Pressure 138/76 07/26/2023 10:00 AM CDT Pulse 90 07/26/2023 10:00 AM CDT Temperature 36.6 ??C (97.9 ??F) 07/26/2023 1 0:00 AM CDT Respiratory Rate 16 07/26/2023 10:0 0 AM CDT Oxygen Saturation 98% 07/26/2023 10: 00 AM CDT Inhaled Oxygen Concentration - - Weight 112.9 kg (248 lb 14.4 oz) 2022 10:00 AM CDT Height 152.4 cm (5') 07/26/2023 10:00 AM CDT Body Mass Index 48.61 07/26/2023 10:00 AM CDT documented in this encounter Progress Notes * Sami Liriano, - 07/26/2023 9:40 AM CDT Images from the original note were not included. GENERAL OFFICE VISIT Encounter Date: 07/26/2023 Chief Complaint: 68-year-old female presents for Hypertension (3 months) HPI: Pt presents for f/u on bronchitis. Pt was started on prednisone and doxycycline. She feels about the same but no worse. Pt will have a CT scan and PFT the same day in October. Patient presents for follow-up on essential hypertension. Patient has had hypertension for multipleyears. Current medications include Lisinopril and Chlorthalidone. Patient's blood pressure is well controlled at this time. No side effects noted from medications. Concurrent conditions include Diabetes Mellitus, Hyperlipidemia and Chronic Kidney Disease 3a. Patient has Type 2 Diabetes. Patient has had diabetes for less than 1 year. Medications include metformin ER. BS logs range: 100-120. Pt's last eye exam was 04/26/22. Patient's weight has gone down 7 lbs. Current symptoms include none. Patient presents for follow-up on HLD. Patient has had HLD for multiple years. Current medications include atorvastatin. Current side effects include none. Patient does not need labs drawn today. Pt has her colonoscopy scheduled for next year. Review of Systems Constitutional: Negative for fever. Respiratory: See HPI Cardiovascular: Negative for chest pain. Gastrointestinal: Negative for abdominal pain. Musculoskeletal: Negative for myalgias. Patient Active Problem List Diagnosis Alopecia Hypertension associated with type 2 diabetes mellitus ([facility]/HCC) ([facility]) Arthritis of left knee GERD (gastroesophageal reflux disease) Overactive bladder Depression Pharyngoesophageal dysphagia Positive colorectal cancer screening using Cologuard test ALLYSON positive Stage 3a chronic kidney disease ([facility]) Severe obstructive sleep apnea Hyperlipidemia associated with type 2 diabetes mellitus ([facility]/HCC) ([facility]) BMI 45.0-49.9, adult ([facility]) Current mild episode of major depressive disorder without prior episode ([facility]) Generalized osteoarthritis of multiple sites Inflammatory arthritis Urinary tract infection Morbid (severe) obesity due to excess calories ([facility]) Past Medical History: Diagnosis Date Arthritis Arthritis of left knee 11/08/2019 Depression GERD (gastroesophageal reflux disease) Hypertension Overactive bladder Past Surgical History: Procedure Laterality Date ANKLE SURGERY left SECTION COLONOSCOPY N/A 04/27/2020 COLONOSCOPY WITH BIOPSY X 3 performed by Joel Keenan MD at 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 18 g 2 acetaminophen 325 MG tablet Take 1 tablet (325 mg total) by mouth. Take 2 in the am and 2 tabs in the pm and 1 PRN atorvastatin (LIPITOR) 10 MG tablet TAKE 1 TABLET BY MOUTH EVERY DAY AT NIGHT 90 tablet 0 Blood Glucose Monitoring Suppl (ONE TOUCH ULTRA 2) w/Device Kit Check blood sugar once daily in AM when fasting 1 kit 0 buPROPion XL (WELLBUTRIN XL) 150 MG 24 hr tablet TAKE 2 TABLETS BY MOUTH EVERY DAY 180 tablet 0 doxycycline hyclate (VIBRAMYCIN) 100 MG capsule Take 1 capsule (100 mg total) by mouth 2 (two) times daily for 10 days. 20 capsule 0 escitalopram (LEXAPRO) 20 MG tablet TAKE 1 TABLET BY MOUTH EVERY DAY 90 tablet 1 Glucose Blood test strip Check blood sugar once daily in AM when fasting 100 strip 11 hydroCHLOROthiazide (HYDRODIURIL) 25 MG tablet TAKE 1 TABLET BY MOUTH EVERY DAY IN THE MORNING 90 tablet 0 Lancets (ONETOUCH ULTRASOFT) lancets Check blood sugar once daily in AM when fasting 1 each 11 lisinopril (PRINIVIL) 40 MG tablet TAKE ONE TABLET BY MOUTH DAILY AT 9AM 180 tablet 1 metFORMIN ER (GLUCOPHAGE-XR) 500 MG 24 hr tablet TAKE 1 TABLET BY MOUTH EVERY DAY WITH BREAKFAST 90tablet 0 OMEPRAZOLE 40 MG capsule TAKE ONE CAPSULE BY MOUTH DAILY AT 9AM 90 capsule 0 oxybutynin XL (DITROPAN-XL) 5 MG 24 hr tablet TAKE 1 TABLET BY MOUTH EVERY DAY 90 tablet 0 potassium chloride CR (K-TAB) 10 MEQ Tab CR tablet TAKE ONE TABLET DAILY Patient must be seen for further refills 30 tablet 0 predniSONE (DELTASONE) 20 MG tablet Take 3 tablets for three days, then take 2 tablets for three days, then take 1 tablet for three days 18 tablet 0 traMADol (ULTRAM) 50 MG tablet [...] tabs in the pm and 1 PRN atorvastatin (LIPITOR) 10 MG tablet TAKE 1 TABLET BY MOUTH EVERY DAY AT NIGHT Blood Glucose Monitoring Suppl (ONE TOUCH ULTRA 2) w/Device Kit Check blood sugar once daily in AM when fasting buPROPion XL (WELLBUTRIN XL) 150 MG 24 hr tablet TAKE 2 TABLETS BY MOUTH EVERY DAY doxycycline hyclate (VIBRAMYCIN) 100 MG capsule Take 1 capsule (100 mg total) by mouth 2 (two) times daily for 10 days. escitalopram (LEXAPRO) 20 MG tablet TAKE 1 TABLET BY MOUTH EVERY DAY Glucose Blood test strip Check blood sugar once daily in AM when fasting hydroCHLOROthiazide (HYDRODIURIL) 25 MG tablet TAKE 1 TABLET BY MOUTH EVERY DAY IN THE MORNING Lancets (ONETOUCH ULTRASOFT) lancets Check blood sugar once daily in AM when fasting lisinopril (PRINIVIL) 40 MG tablet TAKE ONE TABLET BY MOUTH DAILY AT 9AM metFORMIN ER (GLUCOPHAGE-XR) 500 MG 24 hr tablet TAKE 1 TABLET BY MOUTH EVERY DAY WITH BREAKFAST OMEPRAZOLE 40 MG capsule TAKE ONE CAPSULE BY MOUTH DAILY AT 9AM oxybutynin XL (DITROPAN-XL) 5 MG 24 hr tablet TAKE 1 TABLET BY MOUTH EVERY DAY potassium chloride CR (K-TAB) 10 MEQ Tab CR tablet TAKE ONE TABLET DAILY Patient must be seen for further refills predniSONE (DELTASONE) 20 MG tablet Take 3 tablets for three days, then take 2 tablets for three days, then take 1 tablet for three days traMADol (ULTRAM) 50 MG tablet Take 1 tablet (50 mg total) by mouth every 6 (six) hours as needed for Pain. Indications: Chronic Pain No current facility-administered medications on file prior to visit. Review of patient's allergies indicates: Allergen Reactions Penicillins Rash Sulfa Antibiotics Rash Objective: Filed Vitals: 07/26/23 1000 BP: 138/76 Pulse: 90 Resp: 16 Temp: 97.9 ??F (36.6 ??C) TempSrc: Skin SpO2: 98% Weight: 112.9 kg (248 lb 14.4 oz) Height: 1.524 m (5') Physical Exam Vitals and nursing note reviewed. HENT: Head: Normocephalic and atraumatic. Right Ear: External ear normal. Left Ear: External ear normal. Eyes: General: No scleral icterus. Conjunctiva/sclera: Conjunctivae normal. Cardiovascular: Rate and Rhythm: Normal rate and regular rhythm. Heart sounds: Normal heart sounds. No murmur heard. No friction rub. No gallop. Pulmonary: Effort: Pulmonary effort is normal. Comments: Breath sounds unchanged from last OV Abdominal: Palpations: Abdomen is soft. Tenderness: There is no abdominal tenderness. Musculoskeletal: Cervical back: Neck supple. Lymphadenopathy: Cervical: No cervical adenopathy. Skin: General: Skin is warm and dry. Findings: No rash. Neurological: Mental Status: She is alert. Mental status is at baseline. Psychiatric: Mood and Affect: Mood and affect normal. Assessment & Plan: Jolly was seen today for hypertension. Diagnoses and all orders for this visit: Type 2 diabetes mellitus with other circulatory complication, without long-term current use of insulin ([facility]) - HEMOGLOBIN, GLYCOSYLATED - COLLECT.CAPILLARY (FNGR,HEEL,EAR) Mucopurulent chronic bronchitis (HHS/HCC) ([facility]/HCC) Wheezing - albuterol sulfate HFA 108 (90 Base) MCG/ACT inhaler; Inhale 2 puffs into the lungs every 4 (four)hours as needed for Wheezing or Shortness of breath. Hypertension associated with type 2 diabetes mellitus ([facility]HS/HCC) (CMS/HCC) Hyperlipidemia associated with type 2 diabetes mellitus ([facility]HS/HCC) (CMS/HCC) Discussion/Summary: Continue chronic medications as prescribed; stable today. Obtain testing as scheduled. Call back ifnot improving. Obtain flu shot when improved. Will have pt f/u in 3 months or sooner if needed. Pt v/u. Sami Liriano, DO documented in this encounter Plan of Treatment Upcoming Encounters Date Type Department Care Team (Late st Contact Info) Description 10/09/2024 9:30 AM CUSTOM DRESSMAKER Office Visit [facility]-[address] [phone] Carlos Farris MD [address] [facility] [address] [place] [address] 11/02/2024 10:20 AM CUSTOM DRESSMAKER Office Visit [facility] Family & Internal Medicine - [address] [phone] Sami Liriano DO [address] [place] [phone] documented as of this encounter Procedures Procedure Name Priority Date/Time Associated Diagnosis Comments COLLECT.CAPILLARY (FNGR,HEEL,EAR) Routine 07/26/2023 9:56 AM CDT Type 2 diabetes mellitus with other circulatory complication, without long-term current use of insulin ([facility]) HEMOGLOBIN, GLYCOSYLATED Routine 07/26/2023 Type 2 diabetes mellitus with other circulatory complication, without long-term current use of insulin ([facility]) documented in this encounter Results * HEMOGLOBIN, GLYCOSYLATED (07/26/2023) HGB A1C 6.1 % [facility] 07/26/2023 us Sami Liriano DO LABORATORY Final Re sult [facility] [address] [place] [address], documented in this encounter Visit Diagnoses Diagnosis Type 2 diabetes mellitus with other circulatory complication, without long-term current use of insulin ([facility]/HCC HHS/HCC)- Primary Mucopurulent chronic bronchitis (CMS/HCC HHS/HCC) Mucopurulent chronic bronchitis Wheezing Hypertension associated with type 2 diabetes mellitus (CMS/HCC HHS/HCC) Hyperlipidemia associated with type 2 diabetes mellitus (CMS/HCC HHS/HCC) documented in this encounter Additional Health Concerns Assessment Noted Time PHQ-9 Depression Total Score: 0 10/11/19 22 10:50 AM CUSTOM DRESSMAKER documented as of this encounter Care Teams Hearing Impaired Teacher Relationship Specialty Start Date End Date Sami Liriano DO [address] [place] [id number] PCP - General FAMILY PRACTICE 12/24/19 documented as of this encounter
--- OUTSIDE RECORDS SUMMARY | 2024-09-19 12:15 | XMS_ITS | Encounter Summary ---
Author Organization [facility] Address [facility]. [place], [place] [address] [place] [address] Care Team Providers Care Ecology Professor Name Role Phone Sami Liriano DO Primary Care Provider + Reason for Visit * Reason Onset Date Comments Refill Request 11/04/2023 Request Note (Return To Work) 11/04/2023 Encounter Details Date Type Department Care Team (Late st Contact Info) Description 11/04/2023 Telephone [facility] Family & Internal Medicine [facility] [address] [place] [address] Sami Liriano DO [facility] [place] [address] Refill Request; Request Note (Return To Work) Social History Tobacco Use Types Packs/Day Years [...] on file Legal Sex Female 12:43 PM LABEL SEWER Gender Identity Female 12/18/2021 6:31 AM CDT Sexual Orientation Straight 01/15/2022 6: 11 AM CDT 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 Rounder also not to mix this with any other sedating medications. L SEWER * James Siddiqui MA - 11/12/2023 1:25 PM CST Pt updating on condition: she is still c/o of cough that won't let up. She says it has improved somewhat, SOB still present, still quacking when she coughs. Her PFT and CT that were scheduled for Saturday, but pt had to cancel d/t this heavy coughing. She is still using the codeine cough syrup, which has helped her to sleep at night. She has just a little bit left, probably around 3 nights left. [employer] do not work for her. Her rib pain has subsided, she is still getting muscle spasms in her back. MyChart response or detailed vm message will suffice if responding. L SEWER L SEWER * Melanie Lance MA - 11/12/2023 12:27 PM CST Lm 11/12/23 tn L SEWER * James Siddiqui MA - 11/07/2023 12:52 PM CSTAddended by: JAMES SIDDIQUI on: 11/07/2023 12:52 PM Modules accepted: Orders L SEWER * James Siddiqui MA - 11/07/2023 12:52 PM CST LMOM with this info. Also, work note printed. Sent [employer] message to pt with these details and asked if she needs me to send/fax this letter somewhere. L SEWER * JENNIFER Davila - 11/07/2023 11:27 AM CST Let's send over 2 mg of tizanidine to see if this is helpful, One PO TID PRN, #20, no refills Also---are the tessalon perles helpful and if so---does she need a refill. And let her know she is very welcome L SEWER * JENNIFER Davila - 11/06/2023 10:38 AM CST Does she feel ready to return I can send over a muscle relaxer, but she will only be able to take this at night as can cause drowsiness. Has she had a muscle relaxer and if so, which one? L SEWER * James Siddiqui MA - 11/06/2023 9:35 AM CST Pt called for update on the back spasms and ribcage pain she is having d/t the heavy coughing. Is there a muscle relaxer she could get to take at night so she can sleep? Latha cordero Pt returned to work 11/05/23. Her employer is requiring a doctor's note to be back at work. Can pt have note with return date 11/05/23 (yesterday) or does Nathan recommend she not be back at work yet? 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 L SEWER L SEWER * James Siddiqui MA - 11/04/2023 9:46 AM CST I called pt to see if she would be willing to use a [employer] or some other chain if I am able to find in stock. Pt requested [employer] in [place]. Will call to see if they have any, and pt is willing to drive somewhere else if she needs to. Pt c/o still heavy coughing, rib cage in front and both sides hurting and lower back muscle spasms from all the coughing. Pt said she did have a low-grade fever on Saturday (100 degrees) that resolved after taking Tylenol. Called [facility] in [place], they have in stock. Can you resend? L SEWER * James Siddiqui MA - 11/04/2023 9:41 AM CST I called pt's pharmacy to see if any other locations have in stock; pharmacist confirmed there is no local [facility] that has any in stock at current time. L SEWER * Janiya Walter RTSascha - 11/04/2023 9:22 AM CST Message from pharmacy: Guaidensin-codeune 100-10 mg/5 ml oral solution is on backorder L SEWER documented in this encounter Plan of Treatment Upcoming Encounters Date Type Department Care Team (Late st Contact Info) Description 10/09/2024 9:30 AM LABEL SEWER Office Visit [facility] [phone] Carlos Farris MD [address] [facility] [address] [place] [address] 11/02/2024 10:20 AM LABEL SEWER Office Visit [facility] Family & Internal Medicine - [address] [phone] Sami Liriano DO [address] [place] [address] documented as of this encounter Visit Diagnoses Diagnosis Muscle spasm- Primary Spasm of muscle Bronchitis Bronchitis, not specified as acute or chronic documented in this encounter Additional Health Concerns Assessment Noted Time PHQ-9 Depression Total Score: 0 10/11/19 22 10:50 AM LABEL SEWER documented as of this encounter Care Teams Ecology Professor Relationship Specialty Start Date End Date Sami Liriano DO [address] [place] [address] PCP - General FAMILY PRACTICE 12/24/19 documented as of this encounter
--- OUTSIDE RECORDS SUMMARY | 2024-09-19 12:15 | XMS_ITS | Encounter Summary ---
Author Organization [facility] Address [facility]. 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 file Not on franck e documented as of this encounter Plan of Treatment Upcoming Encounters Date Type Department Care Team (Late Contact Info) Description 10/09/2024 9:30 AM KENO WRITER / RUNNER Office Visit [facility] [address] Carlos Farris MD [address] [facility] [address] [place] [address] 11/02/2024 10:20 AM KENO WRITER / RUNNER Office Visit [facility] Family & Internal Medicine - [address] [phone] Sami Liriano DO [address] [place] [address] documented as of this encounter Visit Diagnoses Not on filedocumented in this encounter Additional Health Concerns Assessment Noted Time PHQ-9 Depression Total Score: 0 10/11/19 22 10:50 AM KENO WRITER / RUNNER documented as of this encounter Care Teams Rn Family Relationship Specialty Start Date End Date Sami Liriano DO [address] [place] [address] PCP - General FAMILY PRACTICE 12/24/19 documented as of this encounter
--- OUTSIDE RECORDS SUMMARY | 2024-09-19 12:15 | XMS_ITS | Encounter Summary ---
Author Organization [facility] Address [address] [place] [address]. [place], [place] [address] [place] [address] Care Team Providers Care Destination Sign Repairer Name Role Phone Sami Liriano DO Primary Care Provider + Reason for Visit * Reason Onset Date Comments Medication Request 10/22/2023 Encounter Details Date Type Department Care Team (Late st Contact Info) Description 10/22/2023 Telephone [facility] Family & Internal Medicine [facility] [address] [place] [address] Sami Liriano DO [facility] [place] [address] Medication Request Social History Tobacco [...] on file Legal Sex Female 12:43 PM EXCEPTIONAL CHILDREN TEACHER Gender Identity Female 12/18/2021 6:31 AM CDT Sexual Orientation Straight 01/15/2022 6: 11 AM CDT 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 The patient v/u and agreed to discuss at appt. PTIONAL CHILDREN TEACHER * Brooke Lema MA - 10/23/2023 3:08 PM CST LMOM for patient to return call. PTIONAL CHILDREN TEACHER * Sami Liriano DO - 10/22/2023 2:29 PM CST I'd recommend keeping OV and discussing then; her insurance would not cover a switch to Mounjaro without very specific criteria being met. These have to be documented in an OV to be covered. PTIONAL CHILDREN TEACHER * Winter Espinosa - 10/22/2023 11:51 AM CST Pt is asking if she can switch from metformin to mounjaro as she is not feeling improvement on metformin. Please advise. PTIONAL CHILDREN TEACHER documented in this encounter Plan of Treatment Upcoming Encounters Date Type Department Care Team (Late st Contact Info) Description 10/09/2024 9:30 AM EXCEPTIONAL CHILDREN TEACHER Office Visit [facility] [address] Carlos Farris MD [facility] [address] [facility] [place] [address] 11/02/2024 10:20 AM EXCEPTIONAL CHILDREN TEACHER Office Visit [facility] Medical Group Family & Internal Medicine - [place] [address] [place] [address] Sami Liriano DO [address] [place] [address] documented as of this encounter Visit Diagnoses Not on filedocumented in this encounter Additional Health Concerns Assessment Noted Time PHQ-9 Depression Total Score: 0 10/11/19 22 10:50 AM EXCEPTIONAL CHILDREN TEACHER documented as of this encounter Care Teams Destination Sign Repairer Relationship Specialty Start Date End Date Sami Liriano DO [address] [place] [address] PCP - General FAMILY PRACTICE 12/24/19 documented as of this encounter
--- OUTSIDE RECORDS SUMMARY | 2024-09-19 12:15 | XMS_ITS | Encounter Summary ---
Author Organization [facility] Address [address] [place] [address]. 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 Not on file Not on franck e documented as of this encounter Plan of Treatment Upcoming Encounters Date Type Department Care Team ([facility] Contact Info) Description 10/09/2024 9:30 AM CHEMIST INTERNSHIP Office Visit [facility] [address] [place] [address] Carlos Farris MD [address] [facility] [address] [place] [address] 11/02/2024 10:20 AM CHEMIST INTERNSHIP Office Visit [facility] Family & Internal Medicine - [place] [address] [place] [address] Sami iLriano DO [address] [place] [address] documented as of this encounter Procedures Procedure Name Priority Date/Time Associated Diagnosis Comments MAMMOGRAM GENERIC (SCAN ORDER) 09/24/2023 documented in this encounter Results * MAMMOGRAM GENERIC (09/24/2023) Anatomical Region Laterality Modality Other 09/24/2023 us Doc Med Group Scanned SCANNING Final Resu lt documented in this encounter Visit Diagnoses Not on filedocumented in this encounter Additional Health Concerns Infection Onset Date Last Indicated Resolved Time COVID-19 Rule Out 11/01/2023 11/01/2023 11/01/2023 2:42 PM CHEMIST INTERNSHIP Assessment Noted Time PHQ-9 Depression Total Score: 0 10/11/19 22 10:50 AM CHEMIST INTERNSHIP documented as of this encounter Care Teams Metal Fence Erector Relationship Specialty Start Date End Date Sami Liriano DO [address] [place] [address] PCP - General FAMILY PRACTICE 12/24/19 documented as of this encounter
--- OUTSIDE RECORDS SUMMARY | 2024-09-19 12:15 | XMS_ITS | Encounter Summary ---
Author Organization [facility] Address [facility]. [place], [place] [address] [place] [address] Care Team Providers Care Retail Sales Lead Name Role Phone Sami Liriano Nicole AGUIAR Primary Care Provider + Reason for Referral * Surgical (Routine) - New Request Specialty Diagnoses / Procedures Referred By Shereen benton Referred To Contact Diagnoses Gastroesophageal reflux disease without esophagitis Screening for colon cancer Hx of adenomatous colonic polyps Family hx of colon cancer Procedures Case request operating room: COLONOSCOPY DIAGNOSTIC WITH/WITHOUT SPECIMEN BRUSH/WASH Joel Keenan MD [address] [place] [address] [place] [address] Phone: tel: fax: Referral ID Status Reason Start Date Expiration Date V isits Requested Visits Authorized [id number] New Request 10/03/2023 10/03/2024 1 1 ARINE OPERATOR Encounter Details Date Type Department Care Team (Late st Contact Info) Description 10/03/2023 Orders Only [facility] Multispecialty Care - 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 Not on file Not on franck e documented as of this encounter Plan of Treatment Upcoming Encounters Date Type Department Care Team (Late st Contact Info) Description 10/09/2024 9:30 AM SUBMARINE OPERATOR Office Visit [facility]-[address] [address] aCrlos Farris MD [facility] [address] [place] [address] 11/02/2024 10:20 AM SUBMARINE OPERATOR Office Visit [facility] Group Family & Internal Medicine - [address] [address] Sami Liriano DO [address] [place] [address] Scheduled Orders Name Type Priority Associated Diagnoses Orde r Schedule Case request operating room: COLONOSCOPY DIAGNOSTIC WITH/WITHOUT SPECIMEN BRUSH/WASH Case Request Routine Gastroesophageal reflux disease without esophagitis Screening for colon cancer Hx of adenomatous colonic polyps Family hx of colon cancer Ordered: 10/03/2023 documented as of this encounter Visit Diagnoses Diagnosis Gastroesophageal reflux disease without esophagitis- Primary Esophageal reflux Screening for colon cancer Special screening for malignant neoplasms, colon Hx of adenomatous colonic polyps Personal history of colonic polyps Family hx of colon cancer Family history of malignant neoplasm of gastrointestinal tract documented in this encounter Additional Health Concerns Infection Onset Date Last Indicated Resolved Time COVID-19 Rule Out 11/01/2023 11/01/2023 11/01/2023 2:42 PM SUBMARINE OPERATOR Assessment Noted Time PHQ-9 Depression Total Score: 0 10/11/19 10:50 AM SUBMARINE OPERATOR documented as of this encounter Care Teams Retail Sales Lead Relationship Specialty Start Date End Date Sami Liriano DO [address] [place] [address] PCP - General FAMILY PRACTICE 12/24/19 documented as of this encounter
--- OUTSIDE RECORDS SUMMARY | 2024-09-19 12:15 | XMS_ITS | Encounter Summary ---
Author Organization [facility] Address [address] [facility]. [place], [place] [address] [place] [phone] Care Team Providers Care Alodize Machine Helper Name Role Phone Tracy Gimenez DO Primary Care Provider + Reason for Visit * Reason Comments Diabetes 3 month follow up. Cough The patient states s he is still coughing and wheezing. 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 Encounter Details Date Type Department Care Team (Late st Contact Info) Description 11/18/2023 11:40 AM MANAGED CARE SPECIALIST Office Visit [facility] Family & Internal Medicine [address] [phone] Tracy Gimenez DO [address] [place] [address] Diabetes (3 month follow up. ); Cough (The patient states she is still coughing and wheezing. 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 Not on file Not on file Not on franck e documented as of this encounter Last Filed Vital Signs Vital Sign Reading Time Taken Comments Blood Pressure 146/84 11/18/2023 11:44 AM MANAGED CARE SPECIALIST Pulse 97 11/18/2023 11:44 AM MANAGED CARE SPECIALIST Temperature 36.6 ??C (97.9 ??F) 11/18/2023 1 1:44 AM MANAGED CARE SPECIALIST Respiratory Rate 20 11/18/2023 11:4 4 AM MANAGED CARE SPECIALIST Oxygen Saturation 98% 11/18/2023 12: 11 PM MANAGED CARE SPECIALIST Inhaled Oxygen Concentration - - Weight 114.3 kg (251 lb 14.4 oz) 2023 11:44 AM MANAGED CARE SPECIALIST Height 152.4 cm (5') 11/18/2023 11:44 AM MANAGED CARE SPECIALIST Body Mass Index 49.2 11/18/2023 11:44 AM MANAGED CARE SPECIALIST documented in this encounter Progress Notes * Tracy Gimenez, DO - 11/18/2023 11:40 AM CST Images from the original note were not included. GENERAL OFFICE VISIT Encounter Date: 11/18/2023 Chief Complaint: 68-year-old female presents for Diabetes (3 month follow up. ) and Cough (The patient states she isstill coughing and wheezing. 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 ) HPI: Pt presents for f/u on bronchitis, this time from 11/01/23. This was evaluated by Barb Sexton PATIENT SERVICES COORDINATOR on that date. Pt was given prednisone and doxycycline. She feels has very notable cough today with O2 around 91% between frequent coughing on initial check. She is not on Advair as she ran out; she isunsure if albuterol is helping. We had already ordered CT and PFT but these were cancelled due to he r being acutely ill. Patient presents for follow-up on HLD. Patient has had HLD for multiple years. Current medications include atorvastatin. Current side effects include none. Patient does not need labs drawn today, butwill in the near future. Patient presents for follow-up on essential hypertension. Patient has had hypertension for multipleyears. Current medications include Lisinopril and HCTZ. Patient's blood pressure is not well controlled at this time. No side effects noted from medications. Concurrent conditions include Diabetes Mellitus, Hyperlipidemia and Chronic Kidney Disease 3a. Patient has Type 2 Diabetes. Patient has had diabetes for less than 1 year. Medications include metformin ER. BS logs range: 100-120. Pt's last eye exam was 04/26/22. Patient's weight has gone up 3 lbs. Current symptoms include none. HGB A1C Date Value Ref Range Status 11/18/2023 6.1 % Final 07/26/2023 6.1 % Final 11/30/2022 5.9 % Final 04/19/2022 5.8 % Final MICROALBUMIN (U) Date Value Ref Range Status 11/30/2022 3.8 <20 MG/L Final 08/07/2021 6.7 <20 MG/L Final Patient presents for major depressive disorder. Pt has had this for multiple years. Concurrent psychiatric conditions include none. Pt is currently taking Lexapro and Wellbutrin. Pt does not see counseling. Pt's symptoms are well controlled. Patient would like to continue current medications as prescribed. Review of Systems Constitutional: Negative for fever. Respiratory: See HPI Cardiovascular: Negative for chest pain. Gastrointestinal: Negative for abdominal pain. Musculoskeletal: Negative for myalgias. Psychiatric/Behavioral: See HPI Patient Active Problem List Diagnosis Alopecia Hypertension associated with type 2 diabetes mellitus (HHS/HCC) ([facility]) Arthritis of left knee GERD (gastroesophageal reflux disease) Overactive bladder Depression Pharyngoesophageal dysphagia Positive colorectal cancer screening using Cologuard test ALLYSON positive Stage 3a chronic kidney disease ([facility]) Severe obstructive sleep apnea Hyperlipidemia associated with type 2 diabetes mellitus (HHS/HCC) ([facility]) BMI 45.0-49.9, adult ([facility]) Current mild episode of major depressive disorder without prior episode ([facility]) Generalized osteoarthritis of multiple sites Inflammatory arthritis Urinary tract infection Morbid (severe) obesity due to excess calories ([facility]) Hx of adenomatous colonic polyps Family hx of colon cancer Body mass index (BMI) 45.0-49.9, adult ([facility]) Current moderate episode of major depressive disorder without prior episode ([facility]) Past Medical History: Diagnosis Date Anxiety disorder, unspecified Arthritis Arthritis of left knee 11/08/2019 Depression Diabetes mellitus ([facility]/HCC) ([facility]) GERD (gastroesophageal reflux disease) Hypertension Overactive bladder Past Surgical History: Procedure Laterality Date ANKLE SURGERY left SECTION COLONOSCOPY N/A 04/27/2020 COLONOSCOPY WITH BIOPSY X 3 performed by Joel Keenan MD at [facility] OR EGD EYE SURGERY FRACTURE SURGERY HERNIA [...] Not on file Occupational History 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 18 g 2 atorvastatin (LIPITOR) 10 MG tablet take 1 tablet by mouth every day at night 90 tablet 0 Aisjneo-Lobmxtobism-Klaygsyxtv (BREZTRI AEROSPHERE) 160-9-4.8 MCG/ACT Aerosol Inhale 2 Inhalations into the lungs 2 (two) times a day. 10.7 g 2 buPROPion XL (WELLBUTRIN XL) 150 MG 24 hr tablet TAKE 2 TABLETS BY MOUTH EVERY DAY 180 tablet 1 escitalopram (LEXAPRO) 20 MG tablet TAKE 1 TABLET BY MOUTH EVERY DAY 90 tablet 1 guaiFENesin-codeine (CHERATUSSIN AC) 100-10 MG/5ML syrup Take 5 mLs by mouth every 6 (six) hours asneeded for Cough. Indications: Cough 118 mL 0 hydroCHLOROthiazide (HYDRODIURIL) 25 MG tablet take 1 tablet by mouth every day in the morning 90 tablet 0 ipratropium-albuterol (DUONEB) 0.5-2.5 (3) MG/3ML Solution Take 3 mLs by nebulization every 6 (six)hours as needed. 360 mL 0 lisinopril (PRINIVIL) 40 MG tablet TAKE ONE [...] seen for further refills 30 tablet 0 [START ON 11/19/2023] predniSONE (DELTASONE) 20 MG tablet Take 3 tablets for three days, then take 2tablets for three days, then take 1 tablet [...] in the pm and 1 PRN albuterol sulfate HFA 108 (90 Base) MCG/ACT inhaler Inhale 2 puffs into the lungs every 4 (four) hours as needed for Wheezing or Shortness of breath. atorvastatin (LIPITOR) 10 MG tablet take 1 tablet by mouth every day at night buPROPion XL (WELLBUTRIN XL) 150 MG 24 hr tablet TAKE 2 TABLETS BY MOUTH EVERY DAY escitalopram (LEXAPRO) 20 MG tablet TAKE 1 TABLET BY MOUTH EVERY DAY guaiFENesin-codeine (CHERATUSSIN AC) 100-10 MG/5ML syrup Take 5 mLs by mouth every 6 (six) hours asneeded for Cough. Indications: Cough hydroCHLOROthiazide (HYDRODIURIL) 25 MG tablet take 1 tablet by mouth every day in the morning lisinopril (PRINIVIL) 40 MG tablet TAKE ONE TABLET BY MOUTH DAILY AT 9AM metFORMIN ER (GLUCOPHAGE-XR) 500 MG 24 hr tablet TAKE 1 TABLET BY MOUTH EVERY DAY WITH BREAKFAST oxybutynin XL (DITROPAN-XL) 5 MG 24 hr tablet Take 1 tablet (5 mg total) by mouth daily. potassium chloride CR (K-TAB) 10 MEQ Tab CR tablet TAKE ONE TABLET DAILY Patient must be seen for further refills traMADol (ULTRAM) 50 MG tablet Take 1 tablet (50 mg total) by mouth every 6 (six) hours as needed for Pain. Indications: Chronic Pain No current facility-administered medications on file prior to visit. Review of patient's allergies indicates: Allergen Reactions Penicillins Rash Sulfa Antibiotics Rash Objective: Filed Vitals: 11/18/23 1144 11/18/23 1211 BP: (!) 146/84 Pulse: 97 Resp: 20 Temp: 97.9 ??F (36.6 ??C) TempSrc: Skin SpO2: 91% 98% Weight: 114.3 kg (251 lb 14.4 oz) Height: 1.524 m (5') [...] Pulmonary: Effort: Pulmonary effort is normal. Comments: Inspiratory and expiratory wheezing noted in all cristobal, no other noted abnormalities Abdominal: Palpations: Abdomen is soft. Tenderness: There is no abdominal tenderness. Musculoskeletal: Cervical back: Neck supple. Lymphadenopathy: Cervical: No cervical adenopathy. Skin: General: Skin is warm and dry. Findings: No rash. Neurological: Mental Status: She is alert. Mental status is at baseline. Psychiatric: Mood and Affect: Mood and affect normal. Assessment & Plan: Jolly was seen today for diabetes and cough. Diagnoses and all orders for this visit: Mucopurulent chronic bronchitis (HHS/HCC) ([facility]/HCC) - Lfwjgog-Hfqugewyafx-Wjobpsyafa (BREZTRI AEROSPHERE) 160-9-4.8 MCG/ACT Aerosol; Inhale 2 Inhalations into the lungs 2 (two) times a day. - ipratropium-albuterol (DUONEB) 0.5-2.5 (3) MG/3ML Solution; Take 3 mLs by nebulization every 6 (six) hours as needed. - NEBULIZER DEVICE, DME,; Take 1 Device by nebulization every 6 (six) hours as needed. - NEBULIZER/TUBING/MOUTHPIECE KIT, DME,; 1 kit by Other route every 6 (six) hours as needed. Type 2 diabetes mellitus with other circulatory complication, without long-term current use of insulin ([facility] - HEMOGLOBIN, GLYCOSYLATED - COLLECT.CAPILLARY (FNGR,HEEL,EAR) - VITAMIN D, 25 OH; Future - ALBUMIN URINE RANDOM; Future - CBC W/DIFF AUTOMATED; Future - COMPREHENSIVE METABOLIC PANEL; Future - TSH W/REFLEX; Future - LIPID PANEL; Future Bronchitis - XR CHEST PA+LAT; Future - predniSONE (DELTASONE) 20 MG tablet; Take 3 tablets for three days, then take 2 tablets for threedays, then take 1 tablet for three days - methylPREDNISolone acetate (DEPO-Medrol) injection 80 mg Morbid (severe) obesity due to excess calories ([facility]) Body mass index (BMI) 45.0-49.9, adult ([facility]) Stage 3a chronic kidney disease ([facility]) - VITAMIN D, 25 OH; Future - ALBUMIN URINE RANDOM; Future - CBC W/DIFF AUTOMATED; Future - COMPREHENSIVE METABOLIC PANEL; Future - TSH W/REFLEX; Future - LIPID PANEL; Future Vitamin D deficiency - VITAMIN D, 25 OH; Future Hyperlipidemia associated with type 2 diabetes mellitus (HHS/HCC) ([facility] - VITAMIN D, 25 OH; Future - ALBUMIN URINE RANDOM; Future - CBC W/DIFF AUTOMATED; Future - COMPREHENSIVE METABOLIC PANEL; Future - TSH W/REFLEX; Future - LIPID PANEL; Future Hypertension associated with type 2 diabetes mellitus (HHS/HCC) ([facility] - VITAMIN D, 25 OH; Future - ALBUMIN URINE RANDOM; Future - CBC W/DIFF AUTOMATED; Future - COMPREHENSIVE METABOLIC PANEL; Future - TSH W/REFLEX; Future - LIPID PANEL; Future Current moderate episode of major depressive disorder without prior episode ([facility]) Discussion/Summary: Will order CXR today. Will give Depomedrol injection today and have pt start prednisone tomorrow. Will also increase Advair dual therapy to triple therapy with Breztri. Will also send out nebulizer and Duonebs given acute symptoms. Noted red flag symptoms and importance of going to ER if they present. Continue current meds for T2DM, HLD, and MDD; stable today. Recommend lifestyle changes for T2DM, obesity, HLD, and HTN; pt has associated obesity with T2DM, HLD, and HTN. Will recheck BP at next OV; may be elevated today due to very frequent coughing. Will order labs as per above to be done at next OV. Will have pt f/u in 1 week with one of my colleagues as I will be out of the office next week. Pt v/u. I personally spent a total of 48 minutes on the day of the encounter. This includes dfbg-ef-rnoi and hdj-apti-gx-face time I provided on the day of the encounter & excludes time spent performing separately reportable services. Tracy Gimenez DO GED CARE SPECIALIST documented in this encounter Plan of Treatment Upcoming Encounters Date Type Department Care Team (Late st Contact Info) Description 10/09/2024 9:30 AM MANAGED CARE SPECIALIST Office Visit [facility] [phone] Carlos Farris MD [facility] [address] [place] [phone] 11/02/2024 10:20 AM MANAGED CARE SPECIALIST Office Visit [facility] Family & Internal Medicine - [address] [phone] Tracy Gimenez DO [address] [place] [phone] documented as of this encounter Procedures Procedure Name Priority Date/Time Associated Diagnosis Comments COLLECT.CAPILLARY (FNGR,HEEL,EAR) Routine 11/18/2023 11:33 AM MANAGED CARE SPECIALIST Type 2 diabetes mellitus with other circulatory complication, without long-term current use of insulin ([facility]) HEMOGLOBIN, GLYCOSYLATED Routine 11/18/2023 Type 2 diabetes mellitus with other circulatory complication, without long-term current use of insulin ([facility]) documented in this encounter Results * LIPID PANEL (11/28/2023 3:02 PM MANAGED CARE SPECIALIST) CHOLESTEROL 164 <200 MG/DL 11/28/2023 8:19 PM MANAGED CARE SPECIALIST [facility] TRIGLYCERIDES 115 <150 MG/DL 11/28/2023 8:19 PM [facility] HDL 67 >40 MG/DL 11/28/2023 8:19 PM MANAGED CARE SPECIALIST [facility] LDL-C 74 <100 MG/DL 11/28/2023 8:19 PM MANAGED CARE SPECIALIST [facility] VLDL CALCULATION 23 5 - 28 MG/DL 11/28/2023 8:19 PM MANAGED CARE SPECIALIST [facility] CHOL/HDL RATIO 2.4 0.0 - 4.0 11/28/2023 8:19 PM MANAGED CARE SPECIALIST [facility] LDL/HDL 1.1 0.41 - 2.13 11/28/2023 8:19 PM MANAGED CARE SPECIALIST [facility] NON HDL CHOLESTEROL 97 <140 MG/DL 11/28/2023 8:19 PM MANAGED CARE SPECIALIST [facility] 11/28/2023 3:02 PM MANAGED CARE SPECIALIST Tracy Gimenez DO LABORATORY Final Re sult [facility] [address] [place] [address], [place] [phone] * TSH W/REFLEX (11/28/2023 3:02 PM MANAGED CARE SPECIALIST) TSH 0.947 0.358 - 3.740 uIU/ML 11/28/2023 8:19 PM MANAGED CARE SPECIALIST [facility] 11/28/2023 3:02 PM MANAGED CARE SPECIALIST Tracy Gimenez DO LABORATORY Final Re sult [facility] [address] [place] [address], [place] [phone] * (ABNORMAL) COMPREHENSIVE METABOLIC PANEL (11/28/2023 3:02 PM MANAGED CARE SPECIALIST) [facility] Signature SODIUM S/P/B 145 136 - 145 MMOL/L 11/28/2023 8:19 PM [facility] POTASSIUM S/P/B 4.0 3.5 - 5.1 MMOL/L 11/28/2023 8:19 PM [facility] CHLORIDE S/P/B 107 98 - 107 MMOL/L 11/28/2023 8:19 PM [facility] CO2 29.3 21 - 32 MMOL/L 11/28/2023 8:19 PM [facility] GLUCOSE 131(H) 70 - 99 MG/DL 11/28/2023 8:19 PM [facility] BUN 21(H) 7 - 18 MG/DL 11/28/2023 8:19 PM [facility] CREATININE S/P/B 1.24(H) 0.55 - 1.02 MG/DL 11/28/2023 8:19 PM [facility] CALCIUM S/P/B 9.1 8.4 - 10.5 MG/DL 11/28/2023 8:19 PM [facility] BILIRUBIN TOTAL S/P/B 0.7 0.2 - 1.0 MG/DL 11/28/2023 8:19 PM [facility] ALKALINE PHOSPHATASE S/P/B 90 55 - 142 U/L 11/28/2023 8:19 PM [facility] AST 12(L) 15 - 37 U/L 11/28/2023 8:19 PM [facility] ALT 20 14 - 59 U/L 11/28/2023 8:19 PM [facility] TOTAL PROTEIN S/P/B 7.0 6.4 - 8.2 G/DL 11/28/2023 8:19 PM [facility] ER MINE ALBUMIN S/P/B 3.9 3.4 - 5.0 G/DL 11/28/2023 8:19 PM MANAGED CARE SPECIALIST [facility] ANION GAP 8.7 5 - 15 MMOL/L 11/28/2023 8:19 PM MANAGED CARE SPECIALIST [facility] Comment:REFERENCE RANGE NOT ESTABLISHED OSMOLALITY (CALC) 305 MOSM/KG 024 8:19 PM MANAGED CARE SPECIALIST [facility] Comment:REFERENCE RANGE NOT ESTABLISHED GFR ESTIMATE 47(L) >90 ML/MIN/1. 73 M2 11/28/2023 8:19 PM MANAGED CARE SPECIALIST [facility] GFR NOTES GFR REFERENCE S: 11/28/2023 8:19 PM MANAGED CARE SPECIALIST [facility] Comment: THE ESTIMATED GFR IS CALCULATED USING [...] ml/min/1.73 m2 G5,KIDNEY FAILURE: <15 ml/min/1.73 m2 11/28/2023 3:02 PM MANAGED CARE SPECIALIST us Tracy Gimenez DO LABORATORY Final Re sult [facility] [address] [place] [address], * (ABNORMAL) CBC W/DIFF AUTOMATED (11/28/2023 3:02 PM MANAGED CARE SPECIALIST) WBC 13.65(H) 4.00 - 10.80 x10'3/uL 11/28/2023 7:34 PM MANAGED CARE SPECIALIST [facility] RBC 4.41 4.10 - 5.40 x10'6/uL 11/28/2023 7:34 PM [facility] HGB 11.9(L) 12.0 - 16.0 G/DL 11/28/2023 7:34 PM [facility] HCT 37.7 36.0 - 47.0 % 11/28/2023 7:34 PM [facility] MCV 85.5 78.0 - 100.0 FL 11/28/2023 7:34 PM [facility] MCH 27.0 27.0 - 31.0 PG 11/28/2023 7:34 PM [facility] MCHC 31.6(L) 33.0 - 36.0 G/DL 11/28/2023 7:34 PM [facility] RDW 14.1 11.5 - 14.5 % 11/28/2023 7:34 PM [facility] PLT 273 150 - 350 x10'3/uL 11/28/2023 7:34 PM [facility] MPV 9.8 7.4 - 10.4 FL 11/28/2023 7:34 PM [facility] DIFFERENTIAL TYPE AUTOMATED DIFFERENTIAL 11/28/2023 7:34 PM [facility] NEUTROPHILS % 71.8 % 11/28/2023 7:34 PM [facility] LYMPHOCYTES % 21.8 % 11/28/2023 7:34 PM [facility] MONOCYTES % 5.6 % 11/28/2023 7:34 PM [facility] EOSINOPHILS % 0.1 % 11/28/2023 7:34 PM [facility] BASOPHILS % 0.1 % 11/28/2023 7:34 PM [facility] IMMATURE GRANS % 0.6 % 11/28/2023 7:34 PM [facility] ABS. NEUTROPHILS 9.79(H) 1.60 - 8.30 x10'3/uL 11/28/2023 7:34 PM MANAGED CARE SPECIALIST [facility] ABS. LYMPHOCYTES 2.98 0.80 - 4.70 x10'3/uL 11/28/2023 7:34 PM MANAGED CARE SPECIALIST [facility] ABS. MONOCYTES 0.77 0.00 - 1.50 x10'3/uL 11/28/2023 7:34 PM MANAGED CARE SPECIALIST [facility] ABS. EOSINOPHILS 0.02 0.00 - 0.40 x10'3/uL 11/28/2023 7:34 PM MANAGED CARE SPECIALIST [facility] ABS. BASOPHILS 0.01 0.00 - 0.20 x10'3/uL 11/28/2023 7:34 PM MANAGED CARE SPECIALIST [facility] ABS. IMMATURE GRANULOCYTES 0.08(H) 0.00 - 0.03 x10'3/uL 11/28/2023 7:34 PM MANAGED CARE SPECIALIST [facility] 11/28/2023 3:02 PM MANAGED CARE SPECIALIST Tracy Gimenez DO LABORATORY Final Re sult [facility] [address] [place] [address], * ALBUMIN URINE RANDOM (11/28/2023 3:02 PM MANAGED CARE SPECIALIST) MICROALBUMIN (U) 15.8 <20 MG/L 11/28/19 7:44 PM MANAGED CARE SPECIALIST [facility] CREATININE RANDOM (U) 135.8 MG/DL 11/28/2023 7:44 PM MANAGED CARE SPECIALIST [facility] ALBUMIN/CREAT RATIO 11.6 <30 MG/G 11/28/2023 7:44 PM MANAGED CARE SPECIALIST [facility] URINE SPECIMEN / Unknown 11/28/2023 3:02 PM MANAGED CARE SPECIALIST Tracy Gimenez DO URINE ORDERABLES Final R esult Performing Organization Address [facility] de Phone Number [facility] [address] [place] [address], [place] [phone] * (ABNORMAL) VITAMIN D, 25 OH (11/28/2023 3:02 PM MANAGED CARE SPECIALIST) VITAMIN D 25 HYDROXY TOTAL S/P/B 26.0(L) 30 - 100 NG/ML 11/28/2023 8:19 PM MANAGED CARE SPECIALIST [facility] Comment: ? DEFICIENT ??<20 ?INSUFFICIENT 20-30 ?SUFFICIENT 30-100 11/28/2023 3:02 PM MANAGED CARE SPECIALIST Tracy Gimneez DO LABORATORY Final Re sult Performing Organization Address [facility] de Phone Number [address] [address], * XR CHEST PA+LAT (11/18/2023 12:05 PM MANAGED CARE SPECIALIST) Anatomical Region Laterality Modality Chest Radiographic Jody ging 11/18/2023 3:41 PM MANAGED CARE SPECIALIST Impressions 11/18/2023 3:41 PM MANAGED CARE SPECIALIST IMPRESSION: Negative chest Ordered By: TRACY GIMENEZ Interpreted By: Bola Hood MD, 11/18/2023 3:41 PM Narrative 11/18/2023 3:41 PM MANAGED CARE SPECIALIST 2 VIEWS OF THE CHEST Clinical history: Bronchitis Comparison: November 01, 2023 2 views of the chest demonstrate the cardiac silhouette to be normal in size and appears stable. The pulmonary vessels are normally distributed. The Lungs are clear. No consolidations or effusions are seen. Procedure Note Bola Hood MD - 11/18/2023 2 VIEWS OF THE CHEST Clinical history: Bronchitis Comparison: November 01, 2023 2 views of the chest demonstrate the cardiac silhouette to be normal insize and appears stable. The pulmonary vessels are normally distributed.The Lungs are clear. No consolidations or effusions are seen. IMPRESSION: Negative chest Ordered By: TRACY GIMENEZ Interpreted By: Bola Hood MD, 11/18/2023 3:41 PM Tracy Gimenez DO GENERAL IMAGING Final Re sult * HEMOGLOBIN, GLYCOSYLATED (11/18/2023) HGB A1C 6.1 % [facility] 11/18/2023 Tracy Gimenez DO LABORATORY Final Re sult [facility] [address] [place] [address], documented in this encounter Visit Diagnoses Diagnosis Mucopurulent chronic bronchitis ([facility])- Primary Mucopurulent chronic bronchitis Type 2 diabetes mellitus with other circulatory complication, without long-term current use of insulin ([facility]) Bronchitis Bronchitis, not specified as acute or chronic Morbid (severe) obesity due to excess calories ([facility]) Body mass index (BMI) 45.0-49.9, adult ([facility]) Stage 3a chronic kidney disease ([facility]) Vitamin D deficiency Unspecified vitamin D deficiency Hyperlipidemia associated with type 2 diabetes mellitus ([facility]) Hypertension associated with type 2 diabetes mellitus ([facility]) Current moderate episode of major depressive disorder without prior episode ([facility]) documented in this encounter Administered Medications Inactive Administered Medications - up to 3 most recent administrations Medication Order MAR Action Action Date Dose Rate Site methylPREDNISolone acetate (DEPO-Medrol) injection 80 mg 80 mg, Intramuscular, Once, 1 dose, On 11/18/23 at 1215, [place] WellIndications:Bronchit is Given 11/18/2023 1:29 PM MANAGED CARE SPECIALIST 80 mg Right Dorsal Gluteal documented in this encounter Additional Health Concerns Assessment Noted Time PHQ-9 Depression Total Score: 0 10/11/19 22 10:50 AM MANAGED CARE SPECIALIST documented as of this encounter Care Teams Alodize Machine Helper Relationship Specialty Start Date End Date Tracy Gimenez DO [address] [place] [address] PCP - General FAMILY PRACTICE 12/24/19 documented as of this encounter
--- OUTSIDE RECORDS SUMMARY | 2024-09-19 12:15 | XMS_ITS | Encounter Summary ---
Author Organization [facility] Address [facility]. [place], [place] [address] [place] [address] Care Team Providers Care Water Superintendent Name Role Phone RomeofroylanSami lozoya Nicole AGUIAR Primary Care Provider + Reason for Visit * Auth/Cert (Routine) Specialty Diagnoses / Procedures Referred By Shereen t Referred To Contact Diagnoses Gastroesophageal reflux disease without esophagitis Screening for colon cancer Hx of adenomatous colonic polyps Family hx of colon cancer Screening colonoscopy Procedures COLONOSCOPY,DIAGNOSTIC COLONOSCOPY DIAGNOSTIC WITH/WITHOUT SPECIMEN BRUSH/WASH Joel Keenan MD [address] [place] [address] Phone: tel: fax: Referral ID Status Reason Start Date Expiration Date Visits Re quested Visits Authorized [id number] 1 1 Encounter Details Date Type Department Care Team (Late st Contact Info) Description 11/20/2023 12:07 PM PIPING SUPERVISOR Anesthesia Event [facility] [address] [place] [address] Aga Holly CRNA [address] [facility], [address] [place] [address] Eliecer Mcginnis CRNA [address] [place] [address] Anesthesia Record Procedure Summary Procedure Name Responsible Anesthesiologist Anesthesia Start Time Anesthesia Stop Time Colonoscopy with Polypectomies Aga Holly CRNA 11/20/23 1207 11/20/23 1235 Events Date Time Event Comment 11/20/2023 1047 1047 AN DIRECTOR SALES Prepped 1207 An Start Patient ID and consent checked and patient reassessed. 1207 An Start Data 1207 AN Immediate Reassess The pa tient was reevaluated immediately before sedation or regional anesthesia. 1207 Face Mask Applied 1207 Anesthesia Ready 1208 An Start Data 1212 An Induction The patient was reevaluated immediately before moderate or deep sedation use and before anesthesia induction. 1234 Face Mask Removed 1234 an stop data 1235 Post Anesthetic Care Handoff I completed my handoff to the receiving nurse during which we: 1. Identified the patient 2. Identified the responsible provider 3. Reviewed the pertinent medical history 4. Discussed the surgical course 5. Reviewed intra-op anesthesia management and issues during anesthesia 6. Set expectations for post-procedure period 7. Allowed opportunity for questions and acknowledgement of understanding. 1235 An Stop Meds Name Total albuterol 108 mcg/act inhaler 4 puff lidocaine (PF) (XYLOCAINE) 1% injection 50 mg propofol (DIPRIVAN) 200 mg/20 mL injecti on 250 mg lactated ringers infusion 400 mL * Agents Name O2 * Blood No blood administrations on file. Lines, Drains, and Airways Type Details Placement Removal Peripheral IV Placement Date: 11/20/23; Placement Time: 1028; Placed Outside of This Facility?: No; Size: 22 G; Orientation: Right; Location: Antecubital; Site Prep: Chlorhexidine; Inserted By: Charu pool/Gabi; Insertion attempts: 2; Patient Tolerance: Tolerated well; Removal Date: 11/20/23; Removal Time: 1301; Removal Reason: Patient Discharged 11/20/23 1028 by Arlen Ashley RN 11/20/23 1301 by Jane Gudino RN Supraglottic Airway Placement Date: 11/20/23; Placement Time: 1047; Airway Device: Facemask; Removal Date: 11/20/23; Removal Time: 1234 11/20/23 1047 by Aga Holly CRNA 11/20/23 1234 by Aga Holly CRNA documented in this encounter Social History Tobacco Use Types Packs/Day Years [...] on file Legal Sex Female 12:43 PM PIPING SUPERVISOR Gender Identity Female 12/18/2021 6:31 AM CDT Sexual Orientation Straight 01/15/2022 6: 11 AM CDT 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 Not on file Not on franck e documented as of this encounter OR Notes * Anesthesia Postprocedure Evaluation - Aga Holly CRNA - 11/20/2023 12:36 PM CST Anesthesia Post-op Note Jolly Sargent Procedure(s): Colonoscopy with Polypectomies Anesthesia type: MAC Vitals: 11/20/23 1010 BP: (!) 187/78 Vitals: 11/20/23 1007 Pulse: 87 Vitals: 11/20/23 1007 Resp: 18 Vitals: 11/20/23 1007 Temp: 36.5 ??C Vitals: 11/20/23 1007 SpO2: 95% Patient Location: Phase II/Outpatient Level of Consciousness: awake, alert and oriented Pain Management: adequate analgesia Airway Patency: patent Respiratory Status: acceptable Cardiovascular Status: acceptable Post-Op Nausea: none Postoperative Hydration: euvolemic There were no known notable events for this encounter. NG SUPERVISOR * Anesthesia Preprocedure Evaluation - Aga Holly CRNA - 11/07/2023 9:38 AM CST Anesthesia ROS/MED History Reviewed: Patient summary , Nursing notes , Family history anesthesia, Anesthesia history , Medications , Images/Studies Pre-Anesthetic State: alert, awake and responds appropriately Pulmonary neg pulmonary ROS (+) recent URI (states bben treated for weeks for persistent URI. Dry productive cough) Cardiovascular (+) hypertension, hyperlipidemia Neuro/Psych (+) depression Substance Use (+) alcohol use GI/Hepatic/Renal (+) GERD Endo/Other (+) diabetes mellitus, (type 2), obese, (Morbid) GENERAL COMMENTS 07/17/21 The left ventricular size is normal. Estimated [...] pulmonic regurgitation. A trace of tricuspid regurgitation. Poor exersice tolerance. Does not climb stairs. Able to walk 1/2 block, but develops SOB with minimal exertion NPO Status: Physical Evaluation Airway Mallampati: III TM Distance: >3 FB Neck ROM: normal Dental No notable dental history Pulmonary Pulmonary exam normal (+) rhonchi (RUL), decreased breath sounds, (diminished bilaterally) Cardiovascular Rhythm: regular Rate: normal Cardiovascular exam normal STOP-Bang Assessment: Anesthesia Plan ASA 3 Intravenous Induction Anesthesia type: MAC Plan for Airway: nasal cannula/simple face mask Plan for Post-op Pain Plan: as per surgeon Informed Consent Anesthetic plan and risks discussed with patient of whom consent was obtained. Consent of blood products not discussed. . NG SUPERVISOR NG SUPERVISOR NG SUPERVISOR NG SUPERVISOR NG SUPERVISOR documented in this encounter Plan of Treatment Upcoming Encounters Date Type Department Care Team (Late st Contact Info) Description 10/09/2024 9:30 AM PIPING SUPERVISOR Office Visit [facility] [place] [phone] Carlos Farris MD [facility] [address] [place] [address] 11/02/2024 10:20 AM PIPING SUPERVISOR Office Visit [facility] Family & Internal Medicine - [place] [address] [place] [address] Sami Liriano, [address] [place] [address] documented as of this encounter Visit Diagnoses Not on filedocumented in this encounter Administered Medications Inactive Administered Medications - up to 3 most recent administrations Medication Order MAR Action Action Date Dose Rate Site albuterol sulfate HFA 108 (90 Base) MCG/ACT inhaler Inhalation, PRN, Starting on Sat11/20/23 at 1150, Until Sat11/20/23 at 1235, Anesthesia Intra-Op Given 11/20/2023 12:00 PM PIPING SUPERVISOR 2 puffs Given 11/20/2023 11:50 AM PIPING SUPERVISOR 2 puffs lactated ringers infusion at 10 mL/hr, Intravenous, Continuous, Starting on Sat11/20/23 at 1015, Until Sat11/20/23 at 1525, Infuse at TKO rate, Pre-Op Continued by Anesthesia 11/20/2023 12:07 PM PIPING SUPERVISOR 10 mL/hr New Bag 11/20/2023 10:29 AM PIPING SUPERVISOR 10 mL/hr lidocaine (PF) (XYLOCAINE) 1 % injection Intravenous, PRN, Starting on Sat11/20/23 at 1212, Until Sat11/20/23 at 1235, Anesthesia Intra-Op Given 11/20/2023 12:12 PM PIPING SUPERVISOR 50 mg propofol (DIPRIVAN) IV bolus Intravenous, PRN, Starting on Sat11/20/23 at 1212, Until Sat11/20/23 at 1235, Anesthesia Intra-Op Given 11/20/2023 12:28 PM PIPING SUPERVISOR 50 mg Given 11/20/2023 12:23 PM PIPING SUPERVISOR 50 mg Given 11/20/2023 12:20 PM PIPING SUPERVISOR 50 mg documented in this encounter Additional Health Concerns Assessment Noted Time PHQ-9 Depression Total Score: 0 10/11/19 22 10:50 AM PIPING SUPERVISOR documented as of this encounter Care Teams Water Superintendent Relationship Specialty Start Date End Date Sami Liriano DO [address] [place] [address] PCP - General FAMILY PRACTICE 12/24/19 documented as of this encounter
--- OUTSIDE RECORDS SUMMARY | 2024-09-19 12:15 | XMS_ITS | Encounter Summary ---
Author Organization [facility] Address [facility]. [place], [place] [address] [place] [address] Care Team Providers Care Beekeeper Name Role Phone Sami Liriano DO Primary Care Provider + Reason for Visit * Reason Comments New Patient Referral colon mohini morin * Consultation/Treatment (Routine) - Closed Specialty Diagnoses / Procedures Referred By Shereen benton Referred To Contact GASTROENTEROLOGY Diagnoses Screening for malignant neoplasm of colon Sami Liriano DO [address] [place] [address] Phone: tel: fax: [facility] - [address], [address] [place] [address] Phone: tel: fax: Referral ID Status Reason Start Date Expiration Date V isits Requested Visits Authorized [id number] Closed Consultation 09/17/2023 03/29/2024 6 6 Encounter Details Date Type Department Care Team (Latest Contact Info) Description 09/27/2023 3:00 PM BEEF BONER Office Visit [facility] Medical [facility] [address] [phone] Sami Liriano DO [address] [place] [address] Saloni Wood NP [address] [place] [address] New Patient (Referral colon screening ) Social History Tobacco Use Types Packs/Day Years Used Date Smoking Tobacco: Former Cigarettes 1 1976 Passive Smoke Exposure: Never Smokeless Tobacco: Never Tobacco Cessation:Counseling Given: No Alcohol Use Standard Drinks/Week Comments Yes 0 [...] on file Legal Sex Female 12:43 PM BEEF BONER Gender Identity Female 12/18/2021 6:31 AM CDT Sexual Orientation Straight 01/15/2022 6: 11 AM CDT 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 Not on file Not on franck e documented as of this encounter Last Filed Vital Signs Vital Sign Reading Time Taken Comments Blood Pressure 136/78 09/27/2023 2:42 PM BEEF BONER Pulse 70 09/27/2023 2:42 PM BEEF BONER Temperature 36.7 ??C (98 ??F) 09/27/2023 2:42 PM BEEF BONER Respiratory Rate 20 09/27/2023 2:42 PM BEEF BONER Oxygen Saturation 96% 09/27/2023 2:42 PM BEEF BONER Inhaled Oxygen Concentration - - Weight 112.5 kg (248 lb) 09/27/2023 2:42 PM BEEF BONER Height 152.4 cm (5') 09/27/2023 2:42 PM BEEF BONER Body Mass Index 48.43 09/27/2023 2:42 PM BEEF BONER documented in this encounter Patient Instructions * Attachments The following attachments cannot be sent through Care Everywhere. * Acid reflux and GERD in adults (Icelandic) documented in this encounter Progress Notes * Saloni Wood NP - 09/27/2023 3:00 PM CST Images from the original note were not included. GASTROENTEROLOGY CONSULT 09/27/2023 2:45 PM Reason for Visit: New Patient (Referral colon screening ) History of Present Illness: Jolly Sargent is a 68-year-old female who presents today for a screening colonoscopy consultation.H/O positive Cologurad in 2019, f/u colonoscopy revealed multiple colon polyps, one of which was adenomatous the remaining were hyperplastic. Due to the vol of colon polyps, was recommended repeating a colonoscopy in one yr, patient is overdue. PCP Dr. Liriano. Drinks Activia daily to promote bowel health. Has a BM 1-2 times daily, stool is soft and formed. Denies melena, hematochezia, diarrhea, constipation, abdominal pain, or N/V. H/O GERD, has weaned off prescribed Omeprazole. Reports infrequent heartburn, likely diet related but denies dysphagia or epigastric pain. Appetite appropriate. No unexplained weight loss No hx of hepatitis infection NSAID/Anticoagulant use: Tylenol daily for pain Past Medical History: Diagnosis Date Arthritis Arthritis of left knee 11/08/2019 Depression GERD (gastroesophageal reflux disease) Hypertension Overactive bladder Past Surgical History: Procedure Laterality Date ANKLE SURGERY left SECTION COLONOSCOPY N/A 04/27/2020 COLONOSCOPY WITH BIOPSY X 3 performed by Joel Keenan MD at [facility] OR EGD HERNIA REPAIR SHOULDER SURG PROC UNLISTED right TONSILLECTOMY TOTAL KNEE ARTHROPLASTY right Family History Problem Relation Name Age of Onset Alzheimers Mother Heart Attack Father Heart Disease Father Alzheimers Father Colon Cancer Paternal Aunt Alzheimers Maternal Grandmother Heart Disease Paternal Grandfather Social History Tobacco Use Smoking status: Former Packs/day: 1.00 Years: 12.00 Additional pack years: 0.00 Total pack years: 12.00 Types: Cigarettes Quit date: 1976 Years since quittin.0 Passive exposure: Never Smokeless tobacco: Never Vaping Use Vaping Use: Never used Substance Use Topics Alcohol use: Yes Comment: 2 cocktails on some Sundays Drug use: Never Outpatient Medications Marked as Taking for the 09/27/23 encounter (Office Visit) with Saloni Wood NP Medication Sig Dispense Refill acetaminophen 325 MG [...] g 2 atorvastatin (LIPITOR) 10 MG tablet TAKE 1 TABLET BY MOUTH EVERY DAY AT NIGHT 90 tablet 0 Blood Glucose Monitoring Suppl (ONE TOUCH ULTRA 2) w/Device Kit Check blood sugar once daily in AM when fasting 1 kit 0 buPROPion XL (WELLBUTRIN XL) 150 MG 24 hr tablet TAKE 2 TABLETS BY MOUTH EVERY DAY 180 tablet 1 cefdinir (OMNICEF) 300 MG Cap capsule Take 1 capsule (300 mg total) by mouth 2 (two) times daily. 20 capsule 0 escitalopram (LEXAPRO) 20 MG tablet TAKE 1 TABLET BY MOUTH EVERY DAY 90 tablet 1 fluticasone-salmeterol (ADVAIR DISKUS) 250-50 MCG/ACT inhaler Inhale 1 puff into the lungs 2 (two) times daily. 60 each 2 Glucose Blood test strip Check blood sugar [...] MOUTH EVERY DAY WITH BREAKFAST 90tablet 0 potassium chloride CR (K-TAB) 10 MEQ Tab CR tablet TAKE ONE TABLET DAILY Patient must be seen for further refills 30 tablet 0 Allergies Allergen Reactions Penicillins Rash Sulfa Antibiotics Rash REVIEW OF SYSTEMS: Review of Systems Constitutional: Negative for fatigue and fever. Respiratory: Negative for shortness of breath. Cardiovascular: Negative for leg swelling. Gastrointestinal: Per HPI Musculoskeletal: Negative for joint swelling. Skin: Negative for rash. Neurological: Negative for dizziness and headaches. Psychiatric/Behavioral: The patient is not nervous/anxious. PHYSICAL EXAM: There were no vitals filed for this visit. Wt Readings from Last 1 Encounters: 09/09/23 111.5 kg (245 lb 14.4 oz) Physical Exam Vitals reviewed. Constitutional: Appearance: Normal appearance. Cardiovascular: Rate and Rhythm: Normal rate and regular rhythm. Pulmonary: Breath sounds: Normal breath sounds. No wheezing. Abdominal: General: Bowel sounds are normal. There is no distension. Palpations: Abdomen is soft. There is no mass. Tenderness: There is no abdominal tenderness. There is no guarding or rebound. Hernia: No hernia is present. Musculoskeletal: Right lower leg: No edema. Left lower leg: No edema. Skin: General: Skin is warm and dry. Findings: No rash. Neurological: Mental Status: She is alert and oriented to person, place, and time. Psychiatric: Mood and Affect: Mood normal. Behavior: Behavior normal. Labs: Lab Results Component Value Date WBC 11.88 (H) 11/30/2022 RBC 4.12 11/30/2022 HGB 11.4 (L) 11/30/2022 HCT 36.3 11/30/2022 RDW 14.0 11/30/2022 PLT 224 11/30/2022 NA 139 11/30/2022 K 4.6 11/30/2022 CL 104 11/30/2022 AGAP 10.5 11/30/2022 GLU 93 11/30/2022 BUN 38 (H) 11/30/2022 CR 1.24 (H) 11/30/2022 GFRNON 32 (L) 01/17/2022 GFR 37 (L) 01/17/2022 CA 9.2 11/30/2022 ALB 4.3 11/30/2022 ALT 22 11/30/2022 AST 21 11/30/2022 ALKP 87 11/30/2022 Imaging: None Endoscopies: 04/27/2020 EGD and Colonoscopy by Dr. Keenan Essentially negative upper endoscopy but given symptoms patient was dilated to 54 Mal[place]ian Savary dilator. Multiple colon polyps removed (one serrated adenoma, remaining polyps were hyperplastic). Cecal polyp was very difficult to reach but was completely removed. Plan: Repeat colonoscopy is recommended in 1 year. Assessment There are no diagnoses linked to this encounter. Recommendations/Plan: Schedule Screening Colonoscopy with h/o colon polyps Golytely prep prescribed Recommend OTC famotidine 20 mg 1-2 times daily as needed for intermittent heartburn/GERD symptoms. May need to resume daily Omeprazole if symptoms become more persistent or not controlled with an H2 johana Anti-reflux measures discussed. Maintaining a healthy weight can reduce symptoms. Reviewed dietary modifications such as avoiding food triggers (often spicy foods, fatty or fried foods, chocolate, caffeine and/or carbonated beverages). Recommend patient elevate head of bed if experiencing nocturnal laryngeal symptoms. It is recommended to consume 20-35 grams of fiber per day and at least 64 ounces/2 liters of water per day. All questions answered More recommendations to follow endoscopic evaluation Risks/Benefits/Options: Risks, benefits and alternatives of the procedure(s) were discussed which can include but are not limited to: discomfort, missing lesions, allergic or adverse reaction to the sedation, perforation ofthe bowel or upper GI tract which may require hospitalization and surgery, bleeding, infection, aspiration. All questions were answered, patient is in agreement to proceed as planned. Orders placed this encounter: No orders of the defined types were placed in this encounter. Saloni Wood NP Gastroenterology BONER documented in this encounter Plan of Treatment Upcoming Encounters Date Type Department Care Team (Late st Contact Info) Description 10/09/2024 9:30 AM BEEF BONER Office Visit [facility] [phone] Carlos Farris MD Three [facility] [address] [place] [address] 11/02/2024 10:20 AM BEEF BONER Office Visit [facility] Family & Internal Medicine - [address] [phone] Sami Liriano DO [address] [place] [address] documented as of this encounter Visit Diagnoses [...] Total Score: 0 10/11/19 22 10:50 AM BEEF BONER documented as of this encounter Care Teams Beekeeper Relationship Specialty Start Date End Date Sami Liriano DO [address] [place] [address] PCP - General FAMILY PRACTICE 12/24/19 documented as of this encounter
--- OUTSIDE RECORDS SUMMARY | 2024-09-19 12:15 | XMS_ITS | Encounter Summary ---
Author Organization [facility] Address [address] [place] [address]. 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 Family & Internal Medicine - [address] [phone] Sami Liriano DO [address] [place] [address] documented as of this encounter Visit Diagnoses Not on filedocumented in this encounter Additional Health Concerns Assessment Noted Time PHQ-9 Depression Total Score: 0 10/11/19 22 10:50 AM DEMOLITION HAMMER OPERATOR documented as of this encounter Care Teams Fruit Receiver Relationship Specialty Start Date End Date Sami Liriano DO [address] [place] [address] PCP - General FAMILY PRACTICE 12/24/19 documented as of this encounter
--- OUTSIDE RECORDS SUMMARY | 2024-09-19 12:15 | XMS_ITS | Encounter Summary ---
Author Organization [facility] Address [facility] 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 Not on file Not on franck e documented as of this encounter Plan of Treatment Upcoming Encounters Date Type Department Care Team (Late st Contact Info) Description 10/09/2024 9:30 AM PLASTIC DUPLICATOR Office Visit [facility] [phone] Carlos Farris MD [address] [facility] [address] [place] [address] 11/02/2024 10:20 AM PLASTIC DUPLICATOR Office Visit [facility] Family & Internal Medicine - [address] [phone] Sami Liriano DO [address] [place] [address] documented as of this encounter Visit Diagnoses Not on filedocumented in this encounter Additional Health Concerns Assessment Noted Time PHQ-9 Depression Total Score: 0 10/11/19 22 10:50 AM PLASTIC DUPLICATOR documented as of this encounter Care Teams Emr Specialist Relationship Specialty Start Date End Date Sami Liriano DO [address] [place] [address] PCP - General FAMILY PRACTICE 12/24/19 documented as of this encounter
--- OUTSIDE RECORDS SUMMARY | 2024-09-19 12:15 | XMS_ITS | Encounter Summary ---
Author Organization [facility] Address [address] [place] [address]. [place], [place] [address] [place] [address] Care Team Providers Care Postbed Stitcher Name Role Phone Sami Liriano Primary Care Provider + Reason for Visit * Reason Comments Cough 1 week follow up Hypertension Encounter Details Date Type Department Care Team (Late st Contact Info) Description 11/28/2023 3:20 PM MICROSYSTEMS ENGINEER Office Visit [facility] Family & Internal Medicine [id number] [place] [address] Barb Sexton APNP [facility] [place], [place] [id number] Cough (1 week follow up ); Hypertension Social History Tobacco Use Types Packs/Day Years [...] on file Legal Sex Female 12:43 PM MICROSYSTEMS ENGINEER Gender Identity Female 12/18/2021 6:31 AM CDT Sexual Orientation Straight 01/15/2022 6: 11 AM CDT 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 Not on file Not on franck e documented as of this encounter Last Filed Vital Signs Vital Sign Reading Time Taken Comments Blood Pressure 144/80 11/28/2023 4:05 PM MICROSYSTEMS ENGINEER Pulse 77 11/28/2023 3:10 PM MICROSYSTEMS ENGINEER Temperature 35.9 ??C (96.7 ??F) 11/28/2023 3:10 PM CS T Respiratory Rate 18 11/28/2023 3:10 PM MICROSYSTEMS ENGINEER Oxygen Saturation 97% 11/28/2023 3:10 PM MICROSYSTEMS ENGINEER Inhaled Oxygen Concentration - - Weight 112.9 kg (248 lb 12.8 oz) 11/28/2023 3:10 PM MICROSYSTEMS ENGINEER Height 152.4 cm (5') 11/28/2023 3:10 PM MICROSYSTEMS ENGINEER Body Mass Index 48.59 11/28/2023 3:10 PM MICROSYSTEMS ENGINEER documented in this encounter Progress Notes * JENNIFER Davila - 11/28/2023 3:20 PM CST Images from the original note were not included. [facility] FAMILY AND INTERNAL MEDICINE OFFICE VISIT Reason for Visit: Cough (1 week follow up ) and Hypertension History of Present Illness: 68 yo female here today to follow up on her cough and HTN. Cough/bronchitis - She feels overall her symptoms are improving---she was started on a new inhaler (Breztri). She just picked this up from her pharmacy and started on it yesterday---she states just after one day---she states she feels her symptoms have improved. Her PCP ordered a nebulizer last week and she has not received this from her pharmacy last week. O2 Sat to day is 97% and she is not tachycardic. She is using OTC Mucinex. She has used Cheratussin at night for cough. She has 2 days of her current prescription of prednisone left. PFT's have been ordered but not performed yet. HTN - BP remains a little elevated---but improved from last week. She takes her meds as ordered. She is also here today for some routine labs (that have already been ordered per her PCP). She would like to have these done before leaving the office today. ROS: Review of Systems Constitutional: Negative for chills, fever and malaise/fatigue. Respiratory: Positive for cough and shortness of breath. Cardiovascular: Negative for chest pain and palpitations. Gastrointestinal: Negative for abdominal pain, diarrhea, nausea and vomiting. Neurological: Negative for dizziness and headaches. Medications: Current Outpatient Medications: acetaminophen 325 MG tablet, Take 1 tablet (325 mg total) by mouth. Take 2 in the am and 2 tabs in the pm and 1 PRN, Disp: , Rfl: albuterol sulfate HFA 108 (90 Base) MCG/ACT inhaler, Inhale 2 puffs into the lungs every 4 (four) hours as needed for Wheezing or Shortness of breath., Disp: 18 g, Rfl: 2 atorvastatin (LIPITOR) 10 MG tablet, take 1 tablet by mouth every day at night, Disp: 90 tablet, Rfl: 0 Mazkwzz-Vvxudeilbgz-Ayphwrfcez (BREZTRI AEROSPHERE) 160-9-4.8 MCG/ACT Aerosol, Inhale 2 Inhalationsinto the lungs 2 (two) times a day., Disp: 10.7 g, Rfl: 2 buPROPion XL (WELLBUTRIN XL) 150 MG 24 hr tablet, TAKE 2 TABLETS BY MOUTH EVERY DAY, Disp: 180 tablet, Rfl: 1 escitalopram (LEXAPRO) 20 MG tablet, TAKE 1 TABLET BY MOUTH EVERY DAY, Disp: 90 tablet, Rfl: 1 guaiFENesin-codeine (CHERATUSSIN AC) 100-10 MG/5ML syrup, Take 5 mLs by mouth every 6 (six) hours as needed for Cough. Indications: Cough, Disp: 118 mL, Rfl: 0 hydroCHLOROthiazide (HYDRODIURIL) 25 MG tablet, take 1 tablet by mouth every day in the morning, Disp: 90 tablet, Rfl: 0 ipratropium-albuterol (DUONEB) 0.5-2.5 (3) MG/3ML Solution, Take 3 mLs by nebulization every 6 (six) hours as needed., Disp: 360 mL, Rfl: 0 lisinopril (PRINIVIL) 40 MG tablet, TAKE ONE [...] further refills, Disp: 30 tablet, Rfl: 0 predniSONE (DELTASONE) 20 MG tablet, Take 3 tablets for three days, then take 2 tablets for three days, then take 1 tablet for three days, Disp: 18 tablet, Rfl: 0 traMADol (ULTRAM) 50 MG tablet, Take 1 tablet (50 mg total) by mouth every 6 (six) hours as needed for Pain. Indications: Chronic Pain, Disp: 60 tablet, Rfl: 0 Allergies: Review of patient's allergies indicates: Allergen Reactions Chocolate Hives Penicillins Rash Sulfa Antibiotics Rash Medical History: Past Medical History: Diagnosis Date Anxiety disorder, unspecified Arthritis Arthritis of left knee 11/08/2019 Depression Diabetes mellitus ([facility]/HCC) ([facility]/HCC) GERD (gastroesophageal reflux disease) Hypertension Overactive bladder Surgical History: Past Surgical History: Procedure Laterality Date ANKLE SURGERY left SECTION COLONOSCOPY N/A 04/27/2020 COLONOSCOPY WITH BIOPSY X 3 performed by Joel Keenan MD at [facility] OR COLONOSCOPY N/A 11/20/2023 Colonoscopy with Polypectomies performed by Joel Keenan MD at [facility] OR EGD EYE SURGERY FRACTURE SURGERY HERNIA REPAIR HYSTERECTOMY JOINT REPLACEMENT SHOULDER SURG PROC UNLISTED right TONSILLECTOMY TOTAL KNEE ARTHROPLASTY right Social History: Social History Socioeconomic History Marital status: Number of children: 2 Occupational History 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 Breath sounds: Normal breath sounds. No stridor. No wheezing. Comments: Coarse breath sounds and rhonchi noted bilaterally, upper lungs Musculoskeletal: General: No deformity. Normal range of motion. Cervical back: Normal range of motion and neck supple. Skin: General: Skin is warm and dry. Findings: No erythema. Neurological: Mental Status: She is alert and oriented to person, place, and time. Gait: Gait is intact. Psychiatric: Mood and Affect: Mood and affect normal. Filed Vitals: 11/28/23 1510 11/28/23 1605 BP: (!) 144/88 (!) 144/80 Pulse: 77 Resp: 18 Temp: 96.7 ??F (35.9 ??C) TempSrc: Skin SpO2: 97% Weight: 112.9 kg (248 lb 12.8 oz) Height: 1.524 m (5') Labs: Labs Reviewed Diagnoses/Impression: 1. Chronic bronchitis, unspecified chronic bronchitis type (HHS/HCC) (CMS/HCC) 2. Type 2 diabetes mellitus with other circulatory complication, without long- term current use of insulin (CMS/HCC) VENIPUNC ARM DRAW 3. Stage 3a chronic kidney disease ([facility]/HCC) VENIPUNC ARM DRAW 4. Hyperlipidemia associated with type 2 diabetes mellitus (HHS/HCC) ([facility]) VENIPUNC ARM DRAW 5. Hypertension associated with type 2 diabetes mellitus (HHS/HCC) ([facility]) VENIPUNC ARM DRAW 6. Vitamin D deficiency VENIPUNC ARM DRAW Recommendations and Plan: 1. Type 2 diabetes mellitus with other circulatory complication, without long- term current use of insulin ([facility]) - LIPID PANEL - TSH W/REFLEX - COMPREHENSIVE METABOLIC PANEL - CBC W/DIFF AUTOMATED - ALBUMIN URINE RANDOM - VITAMIN D, 25 OH - VENIPUNC ARM DRAW 2. Stage 3a chronic kidney disease ([facility]) - LIPID PANEL - TSH W/REFLEX - COMPREHENSIVE METABOLIC PANEL - CBC W/DIFF AUTOMATED - ALBUMIN URINE RANDOM - VITAMIN D, 25 OH - VENIPUNC ARM DRAW 3. Hyperlipidemia associated with type 2 diabetes mellitus (HHS/HCC) ([facility]) - LIPID PANEL - TSH W/REFLEX - COMPREHENSIVE METABOLIC PANEL - CBC W/DIFF AUTOMATED - ALBUMIN URINE RANDOM - VITAMIN D, 25 OH - VENIPUNC ARM DRAW 4. Hypertension associated with type 2 diabetes mellitus (HHS/HCC) ([facility]) - LIPID PANEL - TSH W/REFLEX - COMPREHENSIVE METABOLIC PANEL - CBC W/DIFF AUTOMATED - ALBUMIN URINE RANDOM - VITAMIN D, 25 OH - VENIPUNC ARM DRAW Blood pressure remains a little elevated but improved from last week. For now, we will have her to continue meds as ordered. Will have her follow-up in about 1 to 2 weeks and reeval at that time. 5. Vitamin D deficiency - VITAMIN D, 25 OH - VENIPUNC ARM DRAW 6. Chronic bronchitis, unspecified chronic bronchitis type ([facility]/HCC) ([facility]) Symptoms suggestive of chronic bronchitis. Given that she has only been on her new steroid inhaler for about 1 day, would like to see her back in about 1 to 2 weeks to see if her symptoms continue toimprove. Will check on nebulizer and get this ordered and sent to patient as well. Orders Placed This Encounter VENIPUNC ARM DRAW Cannot display discharge medications since this is not an admission. PCP: JENNIFER Davila 11/28/2023 Cosigned by Sami Liriano DO at 12/03/2023 1:16 PM MICROSYSTEMS ENGINEER OSYSTEMS ENGINEER OSYSTEMS ENGINEER documented in this encounter Plan of Treatment Upcoming Encounters Date Type Department Care Team (Late st Contact Info) Description 10/09/2024 9:30 AM MICROSYSTEMS ENGINEER Office Visit [facility] [phone] Carlos Farris MD [facility] [address] [place] [address] 11/02/2024 10:20 AM MICROSYSTEMS ENGINEER Office Visit [facility] Family & Internal Medicine - [address] [phone] Sami Liriano DO [address] [place] [address] documented as of this encounter Procedures Procedure Name Priority Date/Time Associated Diagnosis Comments VENIPUNC ARM DRAW Routine 11/28/2023 3:4 6 PM MICROSYSTEMS ENGINEER Type 2 diabetes mellitus with other circulatory complication, without long-term current use of insulin ([facility]/HCC HHS/HCC) Stage 3a chronic kidney disease ([facility]/HCC HHS/HCC) Hyperlipidemia associated with type 2 diabetes mellitus ([facility]/HCC HHS/HCC) Hypertension associated with type 2 diabetes mellitus ([facility]/HCC HHS/HCC) Vitamin D deficiency TSH W/REFLEX Routine 11/28/2023 3:02 PM MICROSYSTEMS ENGINEER Type 2 diabetes mellitus with other circulatory complication, without long-term current use of insulin (CMS/HCC HHS/HCC) Stage 3a chronic kidney disease (CMS/HCC HHS/HCC) Hyperlipidemia associated with type 2 diabetes mellitus (CMS/HCC HHS/HCC) Hypertension associated with type 2 diabetes mellitus (CMS/HCC HHS/HCC) ALBUMIN URINE RANDOM W/CREATININE Routine 11/28/2023 3:02 PM MICROSYSTEMS ENGINEER Type 2 diabetes mellitus with other circulatory complication, without long-term current use of insulin (CMS/HCC HHS/HCC) Stage 3a chronic kidney disease (CMS/HCC HHS/HCC) Hyperlipidemia associated with type 2 diabetes mellitus (CMS/HCC HHS/HCC) Hypertension associated with type 2 diabetes mellitus (CMS/HCC HHS/HCC) COMPREHENSIVE METABOLIC PANEL Routine 11/28/2023 3:02 PM MICROSYSTEMS ENGINEER Type 2 diabetes mellitus with other circulatory complication, without long-term current use of insulin (CMS/HCC HHS/HCC) Stage 3a chronic kidney disease (CMS/HCC HHS/HCC) Hyperlipidemia associated with type 2 diabetes mellitus (CMS/HCC HHS/HCC) Hypertension associated with type 2 diabetes mellitus (CMS/HCC HHS/HCC) LIPID PANEL Routine 11/28/2023 3:02 PM MICROSYSTEMS ENGINEER Type 2 diabetes mellitus with other circulatory complication, without long-term current use of insulin (CMS/HCC HHS/HCC) Stage 3a chronic kidney disease (CMS/HCC HHS/HCC) Hyperlipidemia associated with type 2 diabetes mellitus (CMS/HCC HHS/HCC) Hypertension associated with type 2 diabetes mellitus (CMS/HCC HHS/HCC) CBC W/DIFF AUTOMATED Routine 11/28/2023 3:02 PM MICROSYSTEMS ENGINEER Type 2 diabetes mellitus with other circulatory complication, without long-term current use of insulin (CMS/HCC HHS/HCC) Stage 3a chronic kidney disease (CMS/HCC HHS/HCC) Hyperlipidemia associated with type 2 diabetes mellitus (CMS/HCC HHS/HCC) Hypertension associated with type 2 diabetes mellitus (CMS/HCC HHS/HCC) VITAMIN D, 25 OH Routine 11/28/2023 3:02 PM MICROSYSTEMS ENGINEER Type 2 diabetes mellitus with other circulatory complication, without long-term current use of insulin (CMS/HCC HHS/HCC) Stage 3a chronic kidney disease (CMS/HCC HHS/HCC) Vitamin D deficiency Hyperlipidemia associated with type 2 diabetes mellitus (CMS/HCC HHS/HCC) Hypertension associated with type 2 diabetes mellitus (CMS/HCC HHS/HCC) documented in this encounter Results * (ABNORMAL) VITAMIN D, 25 OH (11/28/2023 3:02 PM MICROSYSTEMS ENGINEER) VITAMIN D 25 HYDROXY TOTAL S/P/B 26.0(L) 30 - 100 NG/ML 11/28/2023 8:19 PM MICROSYSTEMS ENGINEER [facility] Comment: ? DEFICIENT ??<20 ?INSUFFICIENT 20-30 ?SUFFICIENT 30-100 11/28/2023 3:02 PM MICROSYSTEMS ENGINEER Sami Liriano DO LABORATORY Final Re sult Performing Organization Address [facility] de Phone Number [facility] [address] [place] [address], * ALBUMIN URINE RANDOM (11/28/2023 3:02 PM MICROSYSTEMS ENGINEER) Pathologist [facility] MICROALBUMIN (U) 15.8 <20 MG/L 11/28/19 7:44 PM MICROSYSTEMS ENGINEER [facility] CREATININE RANDOM (U) 135.8 MG/DL 11/28/2023 7:44 PM MICROSYSTEMS ENGINEER [facility] ALBUMIN/CREAT RATIO 11.6 <30 MG/G 11/28/2023 7:44 PM MICROSYSTEMS ENGINEER [facility] URINE SPECIMEN / Unknown 11/28/2023 3:02 PM MICROSYSTEMS ENGINEER Sami Liriano DO URINE ORDERABLES Final R esult Performing Organization Address [facility] Co de Phone Number [address] [address], * (ABNORMAL) CBC W/DIFF AUTOMATED (11/28/2023 3:02 PM MICROSYSTEMS ENGINEER) Pathologist [facility] WBC 13.65(H) 4.00 - 10.80 x10'3/uL 11/28/2023 7:34 PM MICROSYSTEMS ENGINEER [facility] RBC 4.41 4.10 - 5.40 x10'6/uL 11/28/2023 7:34 PM [facility] HGB 11.9(L) 12.0 - 16.0 G/DL 11/28/2023 7:34 PM [facility] HCT 37.7 36.0 - 47.0 % 11/28/2023 7:34 PM [facility] MCV 85.5 78.0 - 100.0 FL 11/28/2023 7:34 PM [facility] MCH 27.0 27.0 - 31.0 PG 11/28/2023 7:34 PM [facility] MCHC 31.6(L) 33.0 - 36.0 G/DL 11/28/2023 7:34 PM [facility] RDW 14.1 11.5 - 14.5 % 11/28/2023 7:34 PM [facility] PLT 273 150 - 350 x10'3/uL 11/28/2023 7:34 PM [facility] MPV 9.8 7.4 - 10.4 FL 11/28/2023 7:34 PM [facility] DIFFERENTIAL TYPE AUTOMATED DIFFERENTIAL 11/28/2023 7:34 PM [facility] NEUTROPHILS % 71.8 % 11/28/2023 7:34 PM [facility] LYMPHOCYTES % 21.8 % 11/28/2023 7:34 PM [facility] MONOCYTES % 5.6 % 11/28/2023 7:34 PM [facility] EOSINOPHILS % 0.1 % 11/28/2023 7:34 PM [facility] BASOPHILS % 0.1 % 11/28/2023 7:34 PM [facility] IMMATURE GRANS % 0.6 % 11/28/2023 7:34 PM [facility] ABS. NEUTROPHILS 9.79(H) 1.60 - 8.30 x10'3/uL 11/28/2023 7:34 PM MICROSYSTEMS ENGINEER [facility] ABS. LYMPHOCYTES 2.98 0.80 - 4.70 x10'3/uL 11/28/2023 7:34 PM MICROSYSTEMS ENGINEER [facility] ABS. MONOCYTES 0.77 0.00 - 1.50 x10'3/uL 11/28/2023 7:34 PM MICROSYSTEMS ENGINEER [facility] ABS. EOSINOPHILS 0.02 0.00 - 0.40 x10'3/uL 11/28/2023 7:34 PM MICROSYSTEMS ENGINEER [facility] ABS. BASOPHILS 0.01 0.00 - 0.20 x10'3/uL 11/28/2023 7:34 PM MICROSYSTEMS ENGINEER [facility] ABS. IMMATURE GRANULOCYTES 0.08(H) 0.00 - 0.03 x10'3/uL 11/28/2023 7:34 PM MICROSYSTEMS ENGINEER [facility] 11/28/2023 3:02 PM MICROSYSTEMS ENGINEER us Sami Liriano DO LABORATORY Final Re sult [facility] [address] [place] [address], [place] [phone] * (ABNORMAL) COMPREHENSIVE METABOLIC PANEL (11/28/2023 3:02 PM MICROSYSTEMS ENGINEER) [facility] SODIUM S/P/B 145 136 - 145 MMOL/L 11/28/2023 8:19 PM MICROSYSTEMS ENGINEER [facility] POTASSIUM S/P/B 4.0 3.5 - 5.1 MMOL/L 11/28/2023 8:19 PM [facility] CHLORIDE S/P/B 107 98 - 107 MMOL/L 11/28/2023 8:19 PM MICROSYSTEMS ENGINEER [facility] CO2 29.3 21 - 32 MMOL/L 11/28/2023 8:19 PM [facility] GLUCOSE 131(H) 70 - 99 MG/DL 11/28/2023 8:19 PM [facility] BUN 21(H) 7 - 18 MG/DL 11/28/2023 8:19 PM [facility] CREATININE S/P/B 1.24(H) 0.55 - 1.02 MG/DL 11/28/2023 8:19 PM [facility] CALCIUM S/P/B 9.1 8.4 - 10.5 MG/DL 11/28/2023 8:19 PM [facility] BILIRUBIN TOTAL S/P/B 0.7 0.2 - 1.0 MG/DL 11/28/2023 8:19 PM [facility] ALKALINE PHOSPHATASE S/P/B 90 55 - 142 U/L 11/28/2023 8:19 PM [facility] AST 12(L) 15 - 37 U/L 11/28/2023 8:19 PM [facility] ALT 20 14 - 59 U/L 11/28/2023 8:19 PM [facility] TOTAL PROTEIN S/P/B 7.0 6.4 - 8.2 G/DL 11/28/2023 8:19 PM [facility] ALBUMIN S/P/B 3.9 3.4 - 5.0 G/DL 11/28/2023 8:19 PM [facility] ANION GAP 8.7 5 - 15 MMOL/L 11/28/2023 8:19 PM [facility] Comment:REFERENCE RANGE NOT ESTABLISHED OSMOLALITY (CALC) 305 MOSM/KG 024 8:19 PM [facility] Comment:REFERENCE RANGE NOT ESTABLISHED GFR ESTIMATE 47(L) >90 ML/MIN/1. 73 M2 11/28/2023 8:19 PM [facility] GFR NOTES GFR REFERENCE S: 11/28/2023 8:19 PM [facility] Comment: THE ESTIMATED GFR IS CALCULATED USING [...] FAILURE: <15 ml/min/1.73 m2 11/28/2023 3:02 PM MICROSYSTEMS ENGINEER Sami Liriano LABORATORY Final Re sult Performing Organization Address [facility]/ZIP Co de Phone Number [facility] [address] [place] [address], [place] [phone] * TSH W/REFLEX (11/28/2023 3:02 PM MICROSYSTEMS ENGINEER) TSH 0.947 0.358 - 3.740 uIU/ML 11/28/2023 8:19 PM MICROSYSTEMS ENGINEER [facility] 11/28/2023 3:02 PM MICROSYSTEMS ENGINEER Sami Nicole Liriano LABORATORY Final Re sult Performing Organization Address [facility] Co de Phone Number [facility] [address] [place] [address], [place] [phone] * LIPID PANEL (11/28/2023 3:02 PM MICROSYSTEMS ENGINEER) CHOLESTEROL 164 <200 MG/DL 11/28/2023 8:19 PM MICROSYSTEMS ENGINEER [facility] TRIGLYCERIDES 115 <150 MG/DL 11/28/2023 8:19 PM MICROSYSTEMS ENGINEER [facility] HDL 67 >40 MG/DL 11/28/2023 8:19 PM MICROSYSTEMS ENGINEER [facility] [place] LDL-C 74 <100 MG/DL 11/28/2023 8:19 PM MICROSYSTEMS ENGINEER [facility], [place] VLDL CALCULATION 23 5 - 28 MG/DL 11/28/2023 8:19 PM MICROSYSTEMS ENGINEER [facility] [place] CHOL/HDL RATIO 2.4 0.0 - 4.0 11/28/2023 8:19 PM MICROSYSTEMS ENGINEER [facility] [place] LDL/HDL 1.1 0.41 - 2.13 11/28/2023 8:19 PM MICROSYSTEMS ENGINEER [facility] [place] NON HDL CHOLESTEROL 97 <140 MG/DL 11/28/2023 8:19 PM MICROSYSTEMS ENGINEER [facility] [place] 11/28/2023 3:02 PM MICROSYSTEMS ENGINEER us Sami Liriano DO LABORATORY Final Re sult [facility] [place] [address] [facility] [place] [address], documented in this encounter Visit Diagnoses Diagnosis Chronic bronchitis, unspecified chronic bronchitis type ([facility]/HCC)- Primary Type 2 diabetes mellitus with other circulatory complication, without long-term current use of insulin ([facility]) Stage 3a chronic kidney disease ([facility]/HCC) Hyperlipidemia associated with type 2 diabetes mellitus ([facility]/HCC) Hypertension associated with type 2 diabetes mellitus ([facility]/HCC) Vitamin D deficiency Unspecified vitamin D deficiency documented in this encounter Additional Health Concerns Assessment Noted Time PHQ-9 Depression Total Score: 0 10/11/19 22 10:50 AM MICROSYSTEMS ENGINEER documented as of this encounter Care Teams Postbed Stitcher Relationship Specialty Start Date End Date Sami Liriano DO [address] [place] [phone] PCP - General FAMILY PRACTICE 12/24/19 documented as of this encounter
--- OUTSIDE RECORDS SUMMARY | 2024-09-19 12:15 | XMS_ITS | Encounter Summary ---
Author Organization [facility] Address [address] [place] [address]. [place], [place] [id number] [place] [id number] Care Team Providers Care Linux Systems Engineer Name Role Phone Sami Liriano DO Primary Care Provider + Reason for Visit * Reason Onset Date Comments Orders 09/09/2023 Encounter Details Date Type Department Care Team (Late st Contact Info) Description 09/09/2023 Telephone [facility] Family & Internal Medicine [place] [phone] [place] [phone] Sami Lirinao DO [address] [place] [phone] Orders Social History Tobacco Use Types Packs/Day [...] on file Legal Sex Female 12:43 PM JAVA DEVELOPER ARCHITECT Gender Identity Female 12/18/2021 6:31 AM CDT Sexual Orientation Straight 01/15/2022 6: 11 AM CDT 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 Opportunity given for all questions to be answered, no furtherneeds voiced at this time. LL-09/09/23 DEVELOPER ARCHITECT * Sami Liriano DO - 09/09/2023 1:03 PM CST We could do one of our visits for UTI's. DEVELOPER ARCHITECT * Winter Espinosa - 09/09/2023 12:17 PM CST Pt believes she has uti wanting to give a sample and have it tested. DEVELOPER ARCHITECT documented in this encounter Plan of Treatment Upcoming Encounters Date Type Department Care Team (Late st Contact Info) Description 10/09/2024 9:30 AM JAVA DEVELOPER ARCHITECT Office Visit [facility] [phone] Carlos Farris MD [address] [facility] [address] [place] [phone] 11/02/2024 10:20 AM JAVA DEVELOPER ARCHITECT Office Visit [facility] Family & Internal Medicine - [address] [phone] Sami Liriano DO [address] [place] [phone] documented as of this encounter Visit Diagnoses Not on filedocumented in this encounter Additional Health Concerns Assessment Noted Time PHQ-9 Depression Total Score: 0 10/11/19 22 10:50 AM JAVA DEVELOPER ARCHITECT documented as of this encounter Care Teams Linux Systems Engineer Relationship Specialty Start Date End Date Sami Liriano DO [address] [place] [phone] PCP - General FAMILY PRACTICE 12/24/19 documented as of this encounter
--- OUTSIDE RECORDS SUMMARY | 2024-09-19 12:15 | XMS_ITS | Encounter Summary ---
Author Organization [facility] Address [facility] [facility]. [place], [place] [id number] [place] [address] Care Team Providers Care Disintegrator Feeder Name Role Phone Sami Liriano DO Primary Care Provider + Reason for Visit * Reason Comments Urinary Frequency Also has very painfu l urination All symptoms started on Saturday Encounter Details Date Type Department Care Team (Late st Contact Info) Description 09/09/2023 3:20 PM MIDDLEWARE SOLUTIONS ARCHITECT Office Visit 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 Not on file Not on file Not on franck e documented as of this encounter Last Filed Vital Signs Vital Sign Reading Time Taken Comments Blood Pressure 138/82 09/09/2023 3:20 PM MIDDLEWARE SOLUTIONS ARCHITECT Pulse 72 09/09/2023 3:20 PM MIDDLEWARE SOLUTIONS ARCHITECT Temperature 36.7 ??C (98 ??F) 09/09/2023 3:20 PM MIDDLEWARE SOLUTIONS ARCHITECT Respiratory Rate 16 09/09/2023 3:20 PM MIDDLEWARE SOLUTIONS ARCHITECT Oxygen Saturation 98% 09/09/2023 3:20 PM MIDDLEWARE SOLUTIONS ARCHITECT Inhaled Oxygen Concentration - - Weight 111.5 kg (245 lb 14.4 oz) 09/09/2023 3:20 PM MIDDLEWARE SOLUTIONS ARCHITECT Height 152.4 cm (5') 09/09/2023 3:20 PM MIDDLEWARE SOLUTIONS ARCHITECT Body Mass Index 48.02 09/09/2023 3:20 PM MIDDLEWARE SOLUTIONS ARCHITECT documented in this encounter Progress Notes * Sami Liriano, DO - 09/09/2023 3:20 PM CST Images from the original note were not included. GENERAL OFFICE VISIT Encounter Date: 09/09/2023 Chief Complaint: 68-year-old female presents for Urinary Frequency (Also has very painful urination /All symptoms started on Saturday) HPI: Pt presents for dysuria. It has been going on for about 3 days. There is urgency, frequency, and pain with urination. No gross hematuria. No abdominal pain or fevers. She took Azo, which helped some.No other symptoms. Review of Systems Constitutional: Negative for fever. Respiratory: Negative for shortness of breath. Gastrointestinal: Negative for abdominal pain. See HPI Genitourinary: See HPI Patient Active Problem List Diagnosis Alopecia Hypertension associated with type 2 diabetes mellitus (HHS/HCC) (CMS/HCC) Arthritis of left knee GERD (gastroesophageal reflux disease) Overactive bladder Depression Pharyngoesophageal dysphagia Positive colorectal cancer screening using Cologuard test ALLYSON positive Stage 3a chronic kidney disease (CMS/HCC) Severe obstructive sleep apnea Hyperlipidemia associated with type 2 diabetes mellitus (HHS/HCC) (CMS/HCC) BMI 45.0-49.9, adult ([facility]) Current mild episode of major depressive disorder without prior episode ([facility]) Generalized osteoarthritis of multiple sites Inflammatory arthritis Urinary tract infection Morbid (severe) obesity due to excess calories ([facility]) Past Medical History: Diagnosis Date Arthritis Arthritis of left knee 11/08/2019 Depression GERD (gastroesophageal reflux disease) Hypertension Overactive bladder Past Surgical History: Procedure Laterality Date ANKLE SURGERY left SECTION COLONOSCOPY N/A 04/27/2020 COLONOSCOPY WITH BIOPSY X 3 performed by Joel Keenan MD at [facility] OR EGD HERNIA REPAIR SHOULDER SURG PROC [...] level: Not on file Occupational History 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 atorvastatin (LIPITOR) 10 MG tablet TAKE 1 TABLET BY MOUTH EVERY DAY AT NIGHT Blood Glucose Monitoring Suppl (ONE TOUCH ULTRA 2) w/Device Kit Check blood sugar once daily in AM when fasting buPROPion XL (WELLBUTRIN XL) 150 MG 24 hr tablet TAKE 2 TABLETS BY MOUTH EVERY DAY escitalopram (LEXAPRO) 20 MG tablet TAKE 1 TABLET BY MOUTH EVERY DAY fluticasone-salmeterol (ADVAIR DISKUS) 250-50 MCG/ACT inhaler Inhale 1 puff into the lungs 2 (two) times daily. Glucose Blood test strip Check blood sugar once daily in AM when fasting hydroCHLOROthiazide (HYDRODIURIL) 25 MG tablet TAKE 1 TABLET BY MOUTH EVERY DAY IN THE MORNING Lancets (IEMOTOUCH ULTRASOFT) lancets Check blood sugar once daily [...] Rash Sulfa Antibiotics Rash Objective: Filed Vitals: 09/09/23 1520 BP: 138/82 Pulse: 72 Resp: 16 Temp: 98 ??F (36.7 ??C) TempSrc: Skin SpO2: 98% Weight: 111.5 kg (245 lb 14.4 oz) Height: 1.524 m (5') Physical Exam Vitals and nursing note reviewed. Constitutional: Appearance: She is not ill-appearing. HENT: Head: Normocephalic and atraumatic. Right Ear: External ear normal. Left Ear: External ear normal. Eyes: Conjunctiva/sclera: Conjunctivae normal. Cardiovascular: Rate and Rhythm: Normal rate and regular rhythm. Heart sounds: Normal heart sounds. No murmur heard. No friction rub. No gallop. Pulmonary: Effort: Pulmonary effort is normal. No respiratory distress. Breath sounds: Normal breath sounds. No wheezing or rales. Abdominal: Palpations: Abdomen is soft. Tenderness: There is no abdominal tenderness. Skin: General: Skin is warm and dry. Findings: No rash. Neurological: Mental Status: She is alert. Mental status is at baseline. Office Visit on 09/09/2023 Component Date Value Ref Range Status COLOR (U) 09/09/2023 DARK YELLOW YELLOW Final TRANSPARENCY 09/09/2023 CLOUDY (A) CLEAR Final GLUCOSE (U) 09/09/2023 NEGATIVE NEGATIVE MG/DL Final BILIRUBIN (U) 09/09/2023 NEGATIVE NEGATIVE Final KETONES (U) 09/09/2023 NEGATIVE NEGATIVE MG/DL Final SPECIFIC GRAVITY (U) 09/09/2023 1.020 1.001 - 1.035 Final BLOOD (U) 09/09/2023 NEGATIVE NEGATIVE Final U PH 09/09/2023 5.5 5.0 - 9.0 Final PROTEIN (U) 09/09/2023 NEGATIVE NEGATIVE mg/dL Final UROBILINOGEN 09/09/2023 0.2 0.2 - 1.0 EU/dL = mg/dL Final NITRITES 09/09/2023 NEGATIVE NEGATIVE MG/DL Final LEUKOCYTES (U) 09/09/2023 1+ (SMALL) (A) NEGATIVE Final Assessment & Plan: Jolly was seen today for urinary frequency. Diagnoses and all orders for this visit: Acute cystitis without hematuria Dysuria - URINALYSIS AUTO DIP - cefdinir (OMNICEF) 300 MG Cap capsule; Take 1 capsule (300 mg total) by mouth 2 (two) times daily. - CULTURE URINE; Future - CULTURE URINE Discussion/Summary: Will treat as per above given chronic conditions and allergies. Discussed side effect profile. Callback if not improving or worsens. Will have pt f/u with regular visits otherwise. Pt v/u. Sami Liriano DO LEWARE SOLUTIONS ARCHITECT documented in this encounter Plan of Treatment Upcoming Encounters Date Type Department Care Team (Late st Contact Info) Description 10/09/2024 9:30 AM MIDDLEWARE SOLUTIONS ARCHITECT Office Visit [facility]-[address] [phone] Carlos Farris MD [address] [facility] [address] [place] [address] 11/02/2024 10:20 AM MIDDLEWARE SOLUTIONS ARCHITECT Office Visit [facility] Family & Internal Medicine - [address] [phone] Sami Liriano DO [address] [place] [address] documented as of this encounter Procedures Procedure Name Priority Date/Time Associated Diagnosis Comments URINE BACTERIA CULTURE Routine 09/09/2023 4:33 PM MIDDLEWARE SOLUTIONS ARCHITECT Dysuria URINALYSIS AUTO DIP Routine 09/09/2023 Dysuria documented in this encounter Results * (ABNORMAL) CULTURE URINE (09/09/2023 4:33 PM MIDDLEWARE SOLUTIONS ARCHITECT) CULTURE RESULT (A) [email or web address] [place] Comment: ??CULTURE, URINE, ROUTINE ?Micro Number: ?[id number] ??Test Status: ? Final ??Specimen Source: ?? Urine ??Specimen Quality: ??Adequate ??Result: ?Greater than 100,000 CFU/mL of Klebsiella pneumoniae ? Greater than 100,000 CFU/mL of ? Group B Streptococcus isolated ? Beta-hemolytic streptococci are predictably ? susceptible to Penicillin and other beta-lactams. ? Susceptibility testing not routinely performed. ? Please contact the laboratory within 3 days if ? susceptibility testing is desired. ??Comment: ? Erythromycin and clindamycin are not recommended ? for treatment of urinary tract infections, ? but clindamycin may be useful for treatment of ? rectovaginal colonization or infection. ?K.pneumoniae ?INT ?? ALENA ?? AMOX/CLAVULANATE ? S ? 8 ?? AMP/SULBACTAM ?R ? >=32 ?? CEFAZOLIN ?NR ?<=4 2 ?? CEFEPIME ? S ? <=0.12 ?? CEFTAZIDIME ?S ? <=1 ?? CEFTRIAXONE ?S ? <=0.25 ?? CIPROFLOXACIN ?S ? <=0.06 ?? GENTAMICIN ? S ? <=1 ?? IMIPENEM ? S ? <=0.25 ?? LEVOFLOXACIN ? S ? <=0.12 ?? MEROPENEM ?S ? <=0.25 ?? NITROFURANTOIN ? R ? 128 ?? PIP/TAZOBACTAM ? S ? 8 ?? TRIMETHOPRIM/SULFA ? S ? <=20 S=Susceptible ??I=Intermediate ??R=Resistant ??* = Not Tested NR = Not Reported ??NN = See Therapy Comments THERAPY COMMENTS ?Note 1: ?For infections other than uncomplicated UTI ?caused by E. coli, K. pneumoniae or P. mirabilis: ?Cefazolin is resistant if ALENA > or = 8 mcg/mL. ?(Distinguishing susceptible versus intermediate ?for isolates with ALENA < or = 4 mcg/mL requires ?additional testing.) ?Note 2: ?For uncomplicated UTI caused by E. coli, ?K. pneumoniae or P. mirabilis: Cefazolin is ?susceptible if ALENA <32 mcg/mL and predicts ?susceptible to the oral agents cefaclor, cefdinir, ?cefpodoxime, cefprozil, cefuroxime, cephalexin ?and loracarbef. URINE SPECIMEN OBTAINED BY CLEAN CATCH PROCEDURE / Unknown 09/09/2023 4:33 PM MIDDLEWARE SOLUTIONS ARCHITECT 09/10/2023 12:39 AM MIDDLEWARE SOLUTIONS ARCHITECT Narrative Resulting Agency Comment Performing Organization Information: ?Site ID: ?Name: [email or web address] ?Address: [facility] [place] [address] ?Director: Bang Person us Sami Liriano DO MICROBIOLOGY - GENERAL O RDERABLES Final Result Performing Organization Address [facility]/ZIP Co de Phone Number [facility]-[address] [phone], * (ABNORMAL) URINALYSIS AUTO DIP (09/09/2023) COLOR (U) DARK YELLOW YELLOW [facility] TRANSPARENCY CLOUDY(A) CLEAR [facility] GLUCOSE (U) NEGATIVE NEGATIVE MG/DL [facility] BILIRUBIN (U) NEGATIVE NEGATIVE [facility] KETONES MG/DL (U) NEGATIVE NEGATIVE MG/DL [facility] SPECIFIC GRAVITY (U) 1.020 1.001 - 1.035 [facility] BLOOD (U) NEGATIVE NEGATIVE [facility] U PH 5.5 5.0 - 9.0 [facility] PROTEIN (U) NEGATIVE NEGATIVE mg/dL [facility] UROBILINOGEN 0.2 0.2 - 1.0 EU/dL = mg/dL [facility] NITRITES NEGATIVE NEGATIVE MG/DL [facility] LEUKOCYTES (U) 1+ (SMALL)(A) NEGATIVE [facility] URINE SPECIMEN OBTAINED BY CLEAN CATCH PROCEDURE / Unknown 09/09/2023 us Sami Liriano DO URINE ORDERABLES Final R esult Performing Organization Address City/[facility] [place] [address], documented in this encounter Visit Diagnoses Diagnosis Acute cystitis without hematuria- Primary Acute cystitis Dysuria documented in this encounter Additional Health Concerns Assessment Noted Time PHQ-9 Depression Total Score: 0 10/11/19 22 10:50 AM MIDDLEWARE SOLUTIONS ARCHITECT documented as of this encounter Care Teams Disintegrator Feeder Relationship Specialty Start Date End Date Sami Liriano DO [address] [place] [address] PCP - General FAMILY PRACTICE 12/24/19 documented as of this encounter
--- OUTSIDE RECORDS SUMMARY | 2024-09-19 12:15 | XMS_ITS | Encounter Summary ---
Author Organization [facility] Address [facility]. [place], [place] [address] [place] [address] Care Team Providers Care Matrix Plater Name Role Phone Sami Liriano Nicole AGUIAR Primary Care Provider + Reason for Visit * Auth/Cert (Routine) Specialty Diagnoses / Procedures Referred By Shereen t Referred To Contact Diagnoses Gastroesophageal reflux disease without esophagitis Screening for colon cancer Hx of adenomatous colonic polyps Family hx of colon cancer Screening colonoscopy Procedures COLONOSCOPY,DIAGNOSTIC COLONOSCOPY DIAGNOSTIC WITH/WITHOUT SPECIMEN BRUSH/WASH Puma Keenan MD [address] [address] Phone: tel: fax: Referral ID Status Reason Start Date Expiration Date Visits Re quested Visits Authorized [id number] 1 1 Encounter Details Date Type Department Care Team (Latest Contact Info) Description 11/20/2023 9:37 AM CORE PILER - 11/20/2023 1:24 PM [facility] Hospital Encounter [facility] [address] [place] [address] Puma Keenan MD [address] [phone] Discharge Disposition: Home or Self Care (Routine [...] on file Legal Sex Female 12:43 PM CORE PILER Gender Identity Female 12/18/2021 6:31 AM CDT Sexual Orientation Straight 01/15/2022 6: 11 AM CDT 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 Not on file Not on franck e documented as of this encounter Last Filed Vital Signs Vital Sign Reading Time Taken Comments Blood Pressure 151/57 11/20/2023 1:01 PM CORE PILER Pulse 75 11/20/2023 1:01 PM CORE PILER Temperature 36.6 ??C (97.8 ??F) 11/20/2023 1:01 PM CS T Respiratory Rate 16 11/20/2023 1:01 PM CORE PILER Oxygen Saturation 98% 11/20/2023 1:01 PM CORE PILER Inhaled Oxygen Concentration - - Weight 113.4 kg (250 lb) 11/06/2023 2:00 PM CORE PILER Height 152.4 cm (5') 11/06/2023 2:00 PM CORE PILER Body Mass Index 48.82 11/06/2023 2:00 PM CORE PILER documented in this encounter Discharge Instructions * Attachments The following attachments cannot be sent through Care Everywhere. * Colonoscopy Discharge Instructions (Nicaraguan) * Colon Polypectomy Discharge Instructions ([place]icaraguan) * Moderate Sedation in Adults Discharge Instructions ([place]icaraguan) documented in this encounter Medications at Time of Discharge acetaminophen 325 MG tablet Take 2 tablets (650 mg total) by mouth every 6 (six) hours as needed for Pain. albuterol sulfate HFA 108 (90 Base) MCG/ACT [...] of major depressive disorder without prior episode ([facility]/HCC) TAKE 1 TABLET BY MOUTH EVERY DAY 90 tablet 1 3 Budeson-Glycopyrrol -Formoterol (BREZTRI AEROSPHERE) 160-9-4.8 MCG/ACT AerosolIndications: Mucopurulent chronic bronchitis (CMS/HCC HHS/HCC) Inhale 2 Inhalations into the lungs 2 (two) times a day. 10.7 g 2 4 12/12/19 24 buPROPion XL (WELLBUTRIN XL) 150 MG 24 hr tabletIndications:C urrent moderate episode of major depressive disorder without prior episode (CMS/HCC HHS/HCC) TAKE 2 TABLETS BY MOUTH EVERY DAY 180 tablet 1 3 01/28/20 24 guaiFENesin-codeine (CHERATUSSIN AC) 100-10 MG/5ML syrupIndications:Co ugh Take 5 mLs by mouth every 6 (six) hours as needed for Cough. Indications: Cough 118 mL 4 01/28/20 24 hydroCHLOROthiazide (HYDRODIURIL) 25 MG tabletIndications:H ypertension associated with type 2 diabetes mellitus ([facility]/HCC HHS/HCC) take 1 tablet by mouth every day in the morning 90 tablet 4 02/12/20 24 ipratropium-albuter ol (DUONEB) 0.5-2.5 (3) MG/3ML SolutionIndications :Mucopurulent chronic bronchitis (CMS/HCC HHS/HCC) Take 3 mLs by nebulization every 6 (six) hours as needed. 360 mL 4 12/06/19 24 lisinopril (PRINIVIL) 40 MG tabletIndications:E ssential hypertension TAKE ONE TABLET BY MOUTH DAILY AT 9AM 180 tablet 1 2 02/07/20 24 metFORMIN ER (GLUCOPHAGE-XR) 500 MG 24 hr tabletIndications:T ype 2 diabetes mellitus without complication, without long-term current use of insulin (CMS/HCC HHS/HCC) TAKE 1 TABLET BY MOUTH EVERY DAY WITH BREAKFAST 90 tablet 3 01/28/20 24 NEBULIZER DEVICE, DME,Indications:Muc opurulent chronic bronchitis (CMS/HCC HHS/HCC) Take 1 Device by nebulization every 6 (six) hours as needed. 1 Device 4 07/06/20 24 NEBULIZER/TUBING/MO UTHPIECE KIT, DME,Indications:Muc opurulent chronic bronchitis (CMS/HCC HHS/HCC) 1 kit by Other route every 6 (six) hours as needed. 1 kit 4 07/06/20 24 oxybutynin XL (DITROPAN-XL) 5 MG 24 hr tabletIndications:O veractive bladder Take 1 tablet (5 mg total) by mouth daily. 90 tablet 4 01/28/20 24 potassium chloride CR (K-TAB) 10 MEQ Tab CR tabletIndications:B ilateral lower extremity edema TAKE ONE TABLET DAILY Patient must be seen for further refills 30 tablet 2 03/02/20 24 predniSONE (DELTASONE) 20 MG tabletIndications:B ronchitis Take 3 tablets for three days, then take 2 tablets for three days, then take 1 tablet for three days 18 tablet 4 12/12/19 24 tiZANidine (ZANAFLEX) 2 MG tabletIndications:M uscle spasm Take 1 tablet (2 mg total) by mouth every 6 (six) hours as needed. 20 tablet 4 01/21/20 24 traMADol (ULTRAM) 50 MG tabletIndications:C hronic Pain Take 1 tablet (50 mg total) by mouth every 6 (six) hours as needed for Pain. Indications: Chronic Pain 60 tablet 2 04/22/20 24 documented as of this encounter Progress Notes * Puma Keenan MD - 11/20/2023 1:24 PM CST Your colon polyps are benign hyperplastic polyps. These have no cancer potential. Repeat colonoscopy in 7 to 10 years. PILER * Arlen Ashley RN - 11/20/2023 10:17 AM CST Pt received a steroid injection on Saturday and has not started her inhalers or po steroids. Loose cough noted. Anesthesia personnel made aware. Chest xray clear. PILER documented in this encounter H&P Notes * Puma Keenan MD - 11/20/2023 12:00 PM CST GASTROENTEROLOGY H&P 11/20/2023 12:00 PM Reason for Consult: Screening colonoscopy History of Present Illness: Hair Sargent is a 68-year-old screening colonoscopy for history of polyps Review of systems: General: no fever, chills, malaise, fatigue, weight loss or gain. HEENT: no acute changes in vision or hearing Respiratory: no shortness of breath, cough, sputum production, hemoptysis Cardiovascular: no chest pain, palpitations, orthopnea Gastrointestinal: as per HPI Genitourinary: no dysuria, hematuria, incontinence Musculoskeletal: no extremity edema, myalgia. Neuro: no dizziness, headache, seizures Hematology: no easy bruising, bleeding Skin: no new skin rashes or lesions. Patient Active Problem List Diagnosis Alopecia Hypertension associated with type 2 diabetes mellitus (HHS/HCC) ([facility]) Arthritis of left knee GERD (gastroesophageal reflux disease) Overactive bladder Depression Pharyngoesophageal dysphagia Positive colorectal cancer screening using Cologuard test [place] positive Stage 3a chronic kidney disease ([facility]) Severe obstructive sleep apnea Hyperlipidemia associated with type 2 diabetes mellitus ([facility]/HCC) ([facility]) BMI 45.0-49.9, adult ([facility]) Current mild episode of major depressive disorder without prior episode ([facility]/HCC) Generalized osteoarthritis of multiple sites Inflammatory arthritis Urinary tract infection Morbid (severe) obesity due to excess calories ([facility]) Hx of adenomatous colonic polyps Family hx of colon cancer Body mass index (BMI) 45.0-49.9, adult ([facility]) Current moderate episode of major depressive disorder without prior episode ([facility]) Screening for colon cancer Past Medical History: Diagnosis Date Anxiety disorder, unspecified Arthritis Arthritis of left knee 11/08/2019 Depression Diabetes mellitus (HHS/HCC) ([facility]) GERD (gastroesophageal reflux disease) Hypertension Overactive bladder Past Surgical History: Procedure Laterality Date ANKLE SURGERY left SECTION COLONOSCOPY N/A 04/27/2020 COLONOSCOPY WITH BIOPSY X 3 performed by Puma Keenan MD at [facility] OR EGD EYE SURGERY FRACTURE SURGERY [...] Not on file Occupational History 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 Tobacco Use Smoking status: Former Packs/day: 0.50 [...] on file Housing Stability: Not on file Allergies Allergen Reactions Penicillins Rash Sulfa Antibiotics Rash PHYSICAL EXAM: Filed Vitals: 11/06/23 1400 11/20/23 1007 11/20/23 1010 BP: (!) 175/79 (!) 187/78 Pulse: 87 Resp: 18 Temp: 97.7 ??F (36.5 ??C) TempSrc: Tympanic SpO2: 95% Weight: 113.4 kg (250 lb) Height: 1.524 m (5') Wt Readings from Last 3 Encounters: 11/06/23 113.4 kg (250 lb) 11/18/23 114.3 kg (251 lb 14.4 oz) 11/01/23 111.1 kg (245 lb) General: pleasant, no distress Lungs: clear to auscultation bilaterally Heart: regular rate and rhythm, normal s1-s2 Abdomen: soft, non-tender, non-distended, bowel sounds normal, no palpable masses Neuro: Alert, oriented, cooperative Labs: No results for input(s): WBC , HGB , MCV , PLT , INR in the last 168 hours. No results for input(s): NA , K , CL , CO2 , BUN in the last 168 hours. Invalid input(s): CREATININE No results for input(s): AST , ALT , ALB in the last 168 hours. Invalid input(s): ALKPHOS , TBILI ? Assessment and Plan: Screening colonoscopy for history of polyps The procedural risks, benefits, alternatives were discussed fully with the patient, including the risks of complications of bleeding, infection, bowel injury or perforation, anesthesia related risks but not limited to the above. Post complication remedies could include hospitalization, antibiotics,surgery or even the remote possibility of . The patient verbalized understanding of the risks and wishes to proceed. Thank you for this consult. Please do not hesitate to contact us with further questions. PUMA KEENAN MD Voice recognition software utilized PILER documented in this encounter OR Notes * Op Note - Puma Keenan MD - 11/20/2023 12:34 PM CST [facility] OpNote Colonoscopy with Polypectomies Procedure Note Hair Sargent 11/20/2023 1039 Procedure(s) (LRB): Colonoscopy with Polypectomies (N/A) Surgeon(s): Puma Keenan MD Staff: Circulating Nurse 1: Sherrill Harrison RN Scrub Person 1: L Schallenberg, RN Anesthesia: Monitor Anesthesia Care RN PEDIATRIC: Aga Holly CRNA Pre-Op Diagnosis: Screening colonoscopy Post-Op Diagnosis: Several polyps. Procedure Description: Informed consent was obtained earlier. Patient was brought to the OR and placed in supine lateral decubitus position and sedated under MAC anesthesia. PCF 190 colonoscope was lubricated inserted into the rectum and advanced to the cecum. Cecum was identified by the ileocecal valve and the appendiceal orifice. Cecum looked normal. Ascending colon looked normal. In the transverse colon there was a subcentimeter polyp that was cold snared but no specimen recovered. Rest of the transverse descending and looked normal. In the rectosigmoid 2 subcentimeter polyps were cold snared removed and recovered. Retroflexion at the anal verge revealed mild hemorrhoids and scope withdrawn. Findings: Several polyps removed by cold snare as above. Plan: Check pathology. Repeat colonoscopy in about 5 years. Complications: None Estimated Blood Loss: None Specimens: Order Name Source Comment Collection Info Order Time PATHOLOGY COLON Collected By: Puma Keenan MD 11/20/2023 12:33 PM Release to patient System release Voice recognition software utilized. PUMA KEENAN MD Date: 11/20/2023 Time: 12:34 PM Voice recognition software utilized. PILER documented in this encounter Plan of Treatment Upcoming Encounters Date Type Department Care Team (Late st Contact Info) Description 10/09/2024 9:30 AM CORE PILER Office Visit [facility] [phone] Carlos Farris MD [address] [facility] [address] [place] [address] 11/02/2024 10:20 AM CORE PILER Office Visit [facility] Medical Group Family & Internal Medicine - [address] [phone] Sami Liriano DO [address] [place] [address] documented as of this encounter Procedures Procedure Name Priority Date/Time Associated Diagnosis Comments COLONOSCOPY FLX DX W/COLLJ SPEC WHEN PFRMD 11/20/2023 12:06 PM CORE PILER Gastroesophageal reflux disease without esophagitis Screening for colon cancer Hx of adenomatous colonic polyps Family hx of colon cancer PATHOLOGY Routine 11/20/2023 12:00 AM CORE PILER documented in this encounter Results * Pathology (11/20/2023 12:00 AM CORE PILER) PATHOLOGY [facility] ? Department of Laboratory Medicine ?[address] ?[place] [address] ? , extension [phone] ? Pathology Report ? Surgical Pathology Report Name: HAIR SARGENT ?Specimen #: [id number] Age: 5 1955 (Age: 68) ?Location: [facility] Sex: F ?Procedure Date: 11/20/2023 Hospital #: [id number] ?Date Received: 11/21/2023 Date Reported: 11/22/2023 Provider: PUMA KEENAN MD Source: A: Colon, sigmoid, polyp B: Rectum sigmoid, polyp Clinical History: Screening colonoscopy, gastroesophageal reflux disease without esophagitis. History of adenomatous colonic polyp. ??Family history of colon cancer. Gross Description: Received in two parts: A) Received in formalin, labeled with a patient label and as sigmoid polyp are two pieces of gallardo polypoid tissue, 0.2 and 0.5 cm. ??The specimen is entirely submitted in cassette A1. B) Received in formalin, labeled with a patient label and as rectosigmoid polyp is a 0.3 cm piece of gallardo polypoid tissue. ??The specimen is entirely submitted in cassette B1. Gross examination (when applicable), was performed at [facility], [address] [place] [address], [facility]. This case was interpreted and signed out at [facility], [address] [place] [address]. FINAL DIAGNOSIS: A. Sigmoid colon polyp, biopsy: ? Hyperplastic polyp. ? B. Rectosigmoid colon polyp, biopsy: ? Hyperplastic polyp. ? Electronically Signed Out ? CRISTINA BRAND MD [facility] TISSUE COLON STRUCTURE / Unknown 11/20/2023 12:36 PM CORE PILER Tissue specimen (specimen) COLON STRUCTURE / Unknown 11/20/2023 12:36 PM CORE PILER us Puma Keenan MD PATHOLOGY/CYTOLOGY ORDERABLES Fi nal Result [facility] [address] [place] [address], [id number] documented in this encounter Visit Diagnoses Diagnosis GERD (gastroesophageal reflux disease) Esophageal reflux Hx of adenomatous colonic polyps Personal history of colonic polyps Family hx of colon cancer Family history of malignant neoplasm of gastrointestinal tract documented in this encounter Admitting Diagnoses Diagnosis GERD (gastroesophageal reflux disease) Esophageal reflux Screening for colon cancer Special screening for malignant neoplasms, colon Hx of adenomatous colonic polyps Personal history of colonic polyps Family hx of colon cancer Family history of malignant neoplasm of gastrointestinal tract documented in this encounter Administered Medications Inactive Administered Medications - up to 3 most recent administrations Medication Order MAR Action Action Date Dose Rate Site lactated ringers infusion at 10 mL/hr, Intravenous, Continuous, Starting on Sat11/20/23 at 1015, Until Sat11/20/23 at 1525, Infuse at TKO rate, Pre-Op Continued by Anesthesia 11/20/2023 12:07 PM CORE PILER 10 mL/hr New Bag 11/20/2023 10:29 AM CORE PILER 10 mL/hr documented in this encounter Active and Recently Administered Medications Times are shown in CORE PILER. Continuous Medication Order 11/18/2023 11/19/2023 11/20/2023 lactated ringers infusion at 10 mL/hr, Intravenous, Continuous, Starting on Sat11/20/23 at 1015, Until Sat11/20/23 at 1525, Infuse at TKO rate, Pre-Op 1029 (New Bag - Prov ider: Arlen Ashley RN)1207 (Continued by Anesthesia - Provider: Aga Holly CRNA)1235 (Anesthesia Volume Adjustment - Provider: Aga Holly CRNA)1301 (Infusion Stop Time - Provider: Jane Gudino RN) documented in this encounter Additional Health Concerns Assessment Noted Time PHQ-9 Depression Total Score: 0 10/11/19 10:50 AM CORE PILER documented as of this encounter Care Teams Matrix Plater Relationship Specialty Start Date End Date Sami Liriano DO [address] [place] [address] PCP - General FAMILY PRACTICE 12/24/19 documented as of this encounter
--- OUTSIDE RECORDS SUMMARY | 2024-09-19 12:15 | XMS_ITS | Encounter Summary ---
Author Organization [facility] Address [address] [place] [address]. [place], [place] [address] [place] [address] Care Team Providers Care Office Clerk Assistant Name Role Phone Sami Liriano DO Primary Care Provider + Reason for Visit * Reason Onset Date Comments Question 08/20/2023 Encounter Details Date Type Department Care Team (Late st Contact Info) Description 08/20/2023 Telephone [facility] Family & Internal Medicine [id number] [place] [address] Sami Liriano DO 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 The chart has been updated to reflect the a1c on 07/26/2023. It was 6.1. TTED ATTORNEYS * Radha De Oliveira MA - 08/20/2023 3:51 PM CST Called/LM for patient to return call. Need to know where last A1C blood draw was done so that we can request copy of result. TTED ATTORNEYS documented in this encounter Plan of Treatment Upcoming Encounters Date Type Department Care Team (Late st Contact Info) Description 10/09/2024 9:30 AM ADMITTED ATTORNEYS Office Visit [facility] [phone] Carlos Farris MD [facility] [address] [place] [address] 11/02/2024 10:20 AM ADMITTED ATTORNEYS Office Visit [facility] Family & Internal Medicine - [address] [phone] Sami Liriano DO [address] [place] [address] documented as of this encounter Visit Diagnoses Not on filedocumented in this encounter Additional Health Concerns Assessment Noted Time PHQ-9 Depression Total Score: 0 10/11/19 22 10:50 AM ADMITTED ATTORNEYS documented as of this encounter Care Teams Office Clerk Assistant Relationship Specialty Start Date End Date Sami Liriano DO [address] [place] [address] PCP - General FAMILY PRACTICE 12/24/19 documented as of this encounter
--- OUTSIDE RECORDS SUMMARY | 2024-09-19 12:15 | XMS_ITS | Encounter Summary ---
Author Organization [facility] Address [facility] 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 Family & Internal Medicine [address] [phone] Sami Liriano DO [address] [place] [address] documented as of this encounter Visit Diagnoses Not on filedocumented in this encounter Additional Health Concerns Infection Onset Date Last Indicated Resolved Time COVID-19 Rule Out 11/01/2023 11/01/2023 11/01/2023 2:42 PM MANUFACTURER REPRESENTATIVE Assessment Noted Time PHQ-9 Depression Total Score: 0 10/11/19 22 10:50 AM MANUFACTURER REPRESENTATIVE documented as of this encounter Care Teams Substitute Crossing Guard Relationship Specialty Start Date End Date Sami Liriano DO [address] [place] [address] PCP - General FAMILY PRACTICE 12/24/19 documented as of this encounter
--- OUTSIDE RECORDS SUMMARY | 2024-09-19 12:15 | XMS_ITS | Encounter Summary ---
Author Organization [facility] Address [address] [place] [address]. [place], [place] [phone] [place] [address] Care Team Providers Care Fisher Eel Spear Name Role Phone Sami Liriano DO Primary Care Provider + Reason for Visit * Reason Onset Date Comments Advice 08/05/2023 Encounter Details Date Type Department Care Team (Late st Contact Info) Description 08/05/2023 Telephone [facility] Medical Group Family & Internal Medicine [phone] [place] [address] Sami Liriano DO [address] [place] [address] Advice Social History Tobacco Use Types Packs/Day Years [...] file Legal Sex Female 12:43 PM BALANCE WEIGHER Gender Identity Female 12/18/2021 6:31 AM CDT Sexual Orientation Straight 01/15/2022 6: 11 AM CDT 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 Opportunity given for all questions to be answered, no further needs voiced at this time. -08/08/23 NCE WEIGHER * Brooke Hidalgo - 08/07/2023 1:21 PM CST Patient called the office back and would like a returned phone call to [phone]. NCE WEIGHER * Deb Varela RN - 08/07/2023 9:52 AM CST Attempted to call the patient, was unable to reach them at this time. Left a message requesting a call back. -08/07/23 NCE WEIGHER * Sami Liriano DO - 08/05/2023 1:10 PM CST Will send out cefdinir. Will also send out Advair to see if this helps; let her know about using mouthwash after use to avoid oral thrush. NCE WEIGHER * Radha Oglesby MA - 08/05/2023 10:08 AM CST Patient states she has finished her antibiotic this morning and states she still has a cough and she is still not well. She was told to call PCP if this happens Allergic to sulfa and kimberly cordero #[phone] NCE WEIGHER documented in this encounter Plan of Treatment Upcoming Encounters Date Type Department Care Team (Late st Contact Info) Description 10/09/2024 9:30 AM BALANCE WEIGHER Office Visit [facility] [phone] Carlos Farris MD [address] [facility] [address] [place] [address] 11/02/2024 10:20 AM BALANCE WEIGHER Office Visit [facility] Medical Group Family & Internal Medicine - [address] [phone] Sami Liriano DO [address] [place] [address] documented as of this encounter Visit Diagnoses Diagnosis Acute cough- Primary Mucopurulent chronic bronchitis ([facility]) Mucopurulent chronic bronchitis documented in this encounter Additional Health Concerns Assessment Noted Time PHQ-9 Depression Total Score: 0 10/11/19 22 10:50 AM BALANCE WEIGHER documented as of this encounter Care Teams Fisher Eel Spear Relationship Specialty Start Date End Date Sami Liriano DO [address] [place] [address] PCP - General FAMILY PRACTICE 12/24/19 documented as of this encounter
--- OUTSIDE RECORDS SUMMARY | 2024-09-19 12:15 | XMS_ITS | Encounter Summary ---
Author Organization [facility] Address Formerly [facility] [place], [place] [address] [place] [address] Care Team Providers Care Direct Support Professional Home Health Name Role Phone Sami Liriano Nicole AGUIAR Primary Care Provider + Reason for Visit * Auth/Cert (Routine) Specialty Diagnoses / Procedures Referred By Shereen t Referred To Contact Diagnoses Gastroesophageal reflux disease without esophagitis Screening for colon cancer Hx of adenomatous colonic polyps Family hx of colon cancer Screening colonoscopy Procedures COLONOSCOPY,DIAGNOSTIC COLONOSCOPY DIAGNOSTIC WITH/WITHOUT SPECIMEN BRUSH/WASH Puma Keenan MD [address] [place] [address] Phone: tel: fax: Referral ID Status Reason Start Date Expiration Date Visits Re quested Visits Authorized [id number] 1 1 Encounter Details Date Type Department Care Team (Late st Contact Info) Description 11/20/2023 10:39 AM STROKE COORDINATOR - 11/20/2023 11:00 AM STROKE COORDINATOR Surgery [facility] [address] [place] [address] Puma Keenan MD [address] [place] [address] [phone] Colonoscopy with Polypectomies Surgery Details Date/Time Status Location OR Service Patient Class Case Class Case Type Trauma Case? 11/20/2023 10:39 AM Posted [facility] OR Endo Gastroenterology Short Stay/Outpa tient Surgery No Panel 1 Procedure LRB Anes Op Region Wound Class Comments Colonoscopy with Polypectomies N/A Monitor Anesthesia Care Clean Contaminated Transverse Polyp (Cold Snare); Sigmoid Polyp (Cold Snare); Rectal-Sigmoid Polyp (Cold Snare) Surgeon Surgeon Role Service Panel Puma Keenan MD Primary Gastroenterology 1 documented in this encounter Social History Tobacco [...] on file Legal Sex Female 12:43 PM STROKE COORDINATOR Gender Identity Female 12/18/2021 6:31 AM CDT Sexual Orientation Straight 01/15/2022 6: 11 AM CDT 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 Not on file Not on franck e documented as of this encounter Last Filed Vital Signs Vital Sign Reading Time Taken Comments Blood Pressure 187/78 11/20/2023 10:10 AM STROKE COORDINATOR Pulse 87 11/20/2023 10:07 AM STROKE COORDINATOR Temperature 36.5 ??C (97.7 ??F) 11/20/2023 10:[address] Respiratory Rate 18 11/20/2023 10:07 AM STROKE COORDINATOR Oxygen Saturation 95% 11/20/2023 10:07 AM STROKE COORDINATOR Inhaled Oxygen Concentration - - Weight 113.4 kg (250 lb) 11/06/2023 2:00 PM STROKE COORDINATOR Height 152.4 cm (5') 11/06/2023 2:00 PM STROKE COORDINATOR Body Mass Index 48.82 11/06/2023 2:00 PM STROKE COORDINATOR documented in this encounter Discharge Instructions * Attachments The following attachments cannot be sent through Care Everywhere. * Colonoscopy Discharge Instructions (Gibraltarian) * Colon Polypectomy Discharge Instructions ([place]) * Moderate Sedation in Adults Discharge Instructions ([place]ralt[place]) documented in this encounter Medications at Time [...] of major depressive disorder without prior episode ([facility]/HCC) TAKE 1 TABLET BY MOUTH EVERY DAY 90 tablet 1 3 Budeson-Glycopyrrol -Formoterol (BREZTRI AEROSPHERE) 160-9-4.8 MCG/ACT AerosolIndications: Mucopurulent chronic bronchitis ([facility] HHS/HCC) Inhale 2 Inhalations into the lungs 2 (two) times a day. 10.7 g 2 4 12/12/19 24 buPROPion XL (WELLBUTRIN XL) 150 MG 24 hr tabletIndications:C urrent moderate episode of major depressive disorder without prior episode ([facility] HHS/HCC) TAKE 2 TABLETS BY MOUTH EVERY DAY 180 tablet 1 3 01/28/20 24 guaiFENesin-codeine (CHERATUSSIN AC) 100-10 MG/5ML syrupIndications:Co ugh Take 5 mLs by mouth every 6 (six) hours as needed for Cough. Indications: Cough 118 mL 4 01/28/20 24 hydroCHLOROthiazide (HYDRODIURIL) 25 MG tabletIndications:H ypertension associated with type 2 diabetes mellitus ([facility]/HCC HHS/HCC) take 1 tablet by mouth every day in the morning 90 tablet 4 02/12/20 24 ipratropium-albuter ol (DUONEB) 0.5-2.5 (3) MG/3ML SolutionIndications :Mucopurulent chronic bronchitis ([facility]/HCC HHS/HCC) Take 3 mLs by nebulization every 6 (six) hours as needed. 360 mL 4 12/06/19 24 lisinopril (PRINIVIL) 40 MG tabletIndications:E ssential hypertension TAKE ONE TABLET BY MOUTH DAILY AT 9AM 180 tablet 1 2 02/07/20 24 metFORMIN ER (GLUCOPHAGE-XR) 500 MG 24 hr tabletIndications:T ype 2 diabetes mellitus without complication, without long-term current use of insulin ([facility] HHS/HCC) TAKE 1 TABLET BY MOUTH EVERY DAY WITH BREAKFAST 90 tablet 3 01/28/20 24 NEBULIZER DEVICE, DME,Indications:Muc opurulent chronic bronchitis ([facility] HHS/HCC) Take 1 Device by nebulization every 6 (six) hours as needed. 1 Device 4 07/06/20 24 NEBULIZER/TUBING/MO UTHPIECE KIT, DME,Indications:Muc opurulent chronic bronchitis ([facility] HHS/HCC) 1 kit by Other route every [...] Repeat colonoscopy in 7 to 10 years. KE COORDINATOR * Arlen Ashley RN - 11/20/2023 10:17 AM CST Pt received a steroid injection on Saturday and has not started her inhalers or po steroids. Loose cough noted. Anesthesia personnel made aware. Chest xray clear. KE COORDINATOR documented in this encounter H&P Notes * [...] associated with type 2 diabetes mellitus (HHS/HCC) ([facility]) Arthritis of left knee GERD (gastroesophageal reflux disease) Overactive bladder Depression Pharyngoesophageal dysphagia Positive colorectal cancer screening using Cologuard test ALLYSON positive Stage 3a chronic kidney disease ([facility]) Severe obstructive sleep apnea Hyperlipidemia associated with type 2 diabetes mellitus (HHS/HCC) ([facility]) BMI 45.0-49.9, adult ([facility]) Current mild episode of major depressive disorder without prior episode ([facility]) Generalized osteoarthritis of multiple sites Inflammatory arthritis Urinary tract infection Morbid (severe) obesity due to excess calories ([facility]) Hx of adenomatous colonic polyps Family hx of colon cancer Body mass index (BMI) 45.0-49.9, adult ([facility]) Current moderate episode of major depressive disorder without prior episode ([facility]) Screening for colon cancer Past Medical History: Diagnosis Date Anxiety disorder, unspecified Arthritis Arthritis of left knee 11/08/2019 Depression Diabetes mellitus ([facility]/HCC) ([facility]) GERD (gastroesophageal reflux disease) Hypertension Overactive bladder Past Surgical History: Procedure Laterality Date ANKLE SURGERY left SECTION COLONOSCOPY N/A 04/27/2020 COLONOSCOPY WITH BIOPSY X 3 performed by Puma Keenan MD at [facility] OR D EYE SURGERY FRACTURE SURGERY HERNIA REPAIR HYSTERECTOMY [...] level: Not on file Occupational History 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 Tobacco Use Smoking status: Former Packs/day: 0.50 [...] PUMA KEENAN MD Voice recognition software utilized KE COORDINATOR documented in this encounter OR Notes * Op Note - Puma Keenan MD - 11/20/2023 12:34 PM CST [facility] OpNote Colonoscopy with Polypectomies Procedure Note Hair Sargent 11/20/2023 1039 Procedure(s) (LRB): Colonoscopy with Polypectomies (N/A) Surgeon(s): Puma Keenan MD Staff: Circulating Nurse 1: Sherrill Harrison RN Scrub Person 1: Amy Wheatley RN Anesthesia: Monitor Anesthesia Care PAYROLL BENEFITS CLERK: Aga Holly CRNA Pre-Op Diagnosis: Screening colonoscopy [...] Time: 12:34 PM Voice recognition software utilized. KE COORDINATOR documented in this encounter Plan of Treatment Upcoming Encounters Date Type Department Care Team (Late st Contact Info) Description 10/09/2024 9:30 AM STROKE COORDINATOR Office Visit [facility] [phone] [facility] [address] [place] [address] 11/02/2024 10:20 AM STROKE COORDINATOR Office Visit [facility] Medical Group Family & Internal Medicine [facility] [address] [place] [phone] Sami Liriano, [address] [place] [address] documented as of this encounter Procedures Procedure Name Priority Date/Time Associated Diagnosis Comments COLONOSCOPY FLX DX W/COLLJ SPEC WHEN PFRMD 11/20/2023 12:06 PM STROKE COORDINATOR Gastroesophageal reflux disease without esophagitis Screening for colon cancer Hx of adenomatous colonic polyps Family hx of colon cancer PATHOLOGY Routine 11/20/2023 12:00 AM STROKE COORDINATOR documented in this encounter Results * Pathology (11/20/2023 12:00 AM STROKE COORDINATOR) PATHOLOGY [facility] ? Department of Laboratory Medicine ?[address] [facility] ?[place] [address] ? , [facility] [id number] ? Pathology Report ? Surgical Pathology Report Name: SHANDS, HAIR L ?Specimen #: [id number] Age: 5 1955 (Age: 68) ?Location: [facility] Sex: F ?Procedure Date: 11/20/2023 Hospital #: [id number] ?Date Received: 11/21/2023 Date Reported: 11/22/2023 Provider: [...] Gross examination (when applicable), was performed at [facility], [address] [place] [address], [facility]. This case was interpreted and signed out at [facility], [address] [place] [address]. FINAL DIAGNOSIS: A. Sigmoid colon polyp, biopsy: ? Hyperplastic polyp. ? B. Rectosigmoid colon polyp, biopsy: ? Hyperplastic polyp. ? Electronically Signed Out ? CRISTINA BRAND MD [facility] TISSUE COLON STRUCTURE / Unknown 11/20/2023 12:36 PM STROKE COORDINATOR Tissue specimen (specimen) COLON STRUCTURE / Unknown 11/20/2023 12:36 PM STROKE COORDINATOR us Puma Keenan MD PATHOLOGY/CYTOLOGY ORDERABLES Fi nal Result [facility] [address] [place] [address], [place] [phone] [id number] documented in this encounter Visit Diagnoses Diagnosis GERD (gastroesophageal reflux disease) Esophageal reflux Hx of adenomatous colonic polyps Personal history of colonic polyps Family hx of colon cancer Family history of malignant neoplasm of gastrointestinal tract Gastroesophageal reflux disease without esophagitis Esophageal reflux Screening for colon cancer Special [...] Pre-Op Continued by Anesthesia 11/20/2023 12:07 PM STROKE COORDINATOR 10 mL/hr New Bag 11/20/2023 10:29 AM STROKE COORDINATOR 10 mL/hr documented in this encounter Active and Recently Administered Medications Times are shown in STROKE COORDINATOR. Continuous Medication Order 11/18/2023 11/19/2023 11/20/2023 lactated [...] Total Score: 0 10/11/19 22 10:50 AM STROKE COORDINATOR documented as of this encounter Care Teams Direct Support Professional Home Health Relationship Specialty Start Date End Date Sami Liriano DO [address] [place] [address] PCP - General FAMILY PRACTICE 12/24/19 documented as of this encounter
--- OUTSIDE RECORDS SUMMARY | 2024-09-19 12:15 | XMS_ITS | Encounter Summary ---
Author Organization [facility] Address [facility]. [place], [place] [id number] [place] [address] Care Team Providers Care Cloth Spreader Name Role Phone Sami Liriano Nicole AGUIAR Primary Care Provider + Encounter Details Date Type Department Care Team (Rach Contact Info) Description 08/30/2023 AB Tasty Message Enc [facility] Medical [facility] Family & Internal Medicine [address] [phone] [facility] A1C Social History Tobacco Use Types Packs/Day Years [...] on file Legal Sex Female 12:43 PM GATE SERVICES SUPERVISOR Gender Identity Female 12/18/2021 6:31 AM CDT Sexual Orientation Straight 01/15/2022 6: 11 AM CDT 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 Not on file Not on franck e documented as of this encounter Plan of Treatment Upcoming Encounters Date Type Department Care Team (Rach Contact Info) Description 10/09/2024 9:30 AM GATE SERVICES SUPERVISOR Office Visit [facility] [phone] Carlos Farris MD [facility] [address] [place] [address] 11/02/2024 10:20 AM GATE SERVICES SUPERVISOR Office Visit [facility] Medical Group Family & Internal Medicine - [address] [phone] Sami Liriano DO [address] [place] [address] documented as of this encounter Visit Diagnoses Not on filedocumented in this encounter Additional Health Concerns Infection Onset Date Last Indicated Resolved Time COVID-19 Rule Out 11/01/2023 11/01/2023 11/01/2023 2:42 PM GATE SERVICES SUPERVISOR Assessment Noted Time PHQ-9 Depression Total Score: 0 10/11/19 22 10:50 AM GATE SERVICES SUPERVISOR documented as of this encounter Care Teams Cloth Spreader Relationship Specialty Start Date End Date Sami Liriano DO [address] [place] [address] PCP - General FAMILY PRACTICE 12/24/19 documented as of this encounter
--- OUTSIDE RECORDS SUMMARY | 2024-09-19 12:15 | XMS_ITS | Encounter Summary ---
Author Organization [facility] Address [facility]. [place], [place] [address] [place] [address] Care Team Providers Care Barrel Rib Matting Machine Operator Name Role Phone Sami Liriano Primary Care Provider + Reason for Visit * Reason Comments URI/ENT Symptoms Dry cough, sore thro at, headache, fever, SOB, wheezing. Fever last night 101. Sx onset Saturday. At home COVID test negative today. Encounter Details Date Type Department Care Team (Late st Contact Info) Description 11/01/2023 1:20 PM EXECUTOR OF ESTATE Telemedicine [facility] Family & Internal Medicine - [address] [phone] Nathan Sexton APNP [facility] [place] [facility] [place], [place] [id number] URI/ENT Symptoms (Dry cough, sore throat, headache, fever, SOB, wheezing. Fever last night 101. Sx onset Saturday. 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 Not on file Not on franck e documented as of this encounter Last Filed Vital Signs Vital Sign Reading Time Taken Comments Blood Pressure - - Pulse 87 11/01/2023 2:50 PM EXECUTOR OF ESTATE Temperature 36.7 ??C (98 ??F) 11/01/2023 2:50 PM EXECUTOR OF ESTATE Respiratory Rate 24 11/01/2023 2:50 PM EXECUTOR OF ESTATE Oxygen Saturation 98% 11/01/2023 2:50 PM EXECUTOR OF ESTATE Inhaled Oxygen Concentration - - Weight 111.1 kg (245 lb) 11/01/2023 1:27 PM EXECUTOR OF ESTATE Height - - Body Mass Index 47.85 09/27/2023 2:42 PM EXECUTOR OF ESTATE documented in this encounter Progress Notes * JENNIFER Davila - 11/01/2023 1:20 PM CST Images from the original note were not included. [facility] FAMILY AND INTERNAL MEDICINE OFFICE VISIT I introduced and identified myself, received verbal consent from the patient to proceed with this video visit and made the patient aware that the same confidentiality and marketing information manager practices apply. The patient joined the video visit from Home. I completed the virtual visit from Office. The following clinical staff helped with this visit MA: Jayan . Total Time Spent in Minutes: 10 Reason for Visit: URI/ENT Symptoms (Dry cough, sore throat, headache, fever, SOB, wheezing. Fever last night 101. Sx onset Saturday. At home COVID test negative today.) History of Present Illness: 68 yo female presents today via VV with c/o cough, sore throat, fever (Tmax 101), wheezing. Symptoms started about 3 days ago. 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 She has treated at home with her inhaler but feels it is hard to breathe at times. She did take a home COVID test which returned negative. She denies any chest pain or GI symptoms. She has not specifically been exposed to COVID or flu she is aware of. I did have her come in for a CXR and was able to listen to her chest while in office. O2 Sat was 98% and no tachycardia noted. She was not afebrile in office today. ROS: Review of Systems Constitutional: Positive for chills, fever and malaise/fatigue. HENT: Positive for congestion, sinus pain and sore throat. Respiratory: Positive for cough and shortness of breath. Cardiovascular: Negative for chest pain and palpitations. Gastrointestinal: Negative for abdominal pain, diarrhea, nausea and vomiting. Musculoskeletal: Positive for myalgias. Neurological: Positive for headaches. Negative for dizziness. Medications: Current Outpatient Medications: acetaminophen 325 MG [...] at night, Disp: 90 tablet, Rfl: 0 benzonatate (TESSALON PERLES) 100 MG capsule, Take 1 capsule (100 mg total) by mouth 3 (three) times daily as needed for Cough., Disp: 20 capsule, Rfl: 0 Blood Glucose Monitoring Suppl (ONE TOUCH ULTRA 2) w/Device Kit, Check blood sugar once daily in AMwhen fasting, Disp: 1 kit, Rfl: 0 buPROPion XL (WELLBUTRIN XL) 150 MG 24 hr tablet, TAKE 2 TABLETS BY MOUTH EVERY DAY, Disp: 180 tablet, Rfl: 1 doxycycline hyclate (VIBRAMYCIN) 100 MG capsule, Take 1 capsule (100 mg total) by mouth 2 (two) times daily for 10 days., Disp: 20 capsule, Rfl: 0 escitalopram (LEXAPRO) 20 MG tablet, TAKE 1 TABLET BY MOUTH EVERY DAY, Disp: 90 tablet, Rfl: 1 fluticasone-salmeterol (ADVAIR DISKUS) 250-50 MCG/ACT inhaler, Inhale 1 puff into the lungs 2 (two)times daily., Disp: 60 each, Rfl: 2 Glucose Blood test strip, Check blood sugar once daily in AM when fasting, Disp: 100 strip, Rfl: 11 guaiFENesin-codeine (CHERATUSSIN AC) 100-10 MG/5ML syrup, Take 5 mLs by mouth every 6 (six) hours as needed for Cough. Indications: Cough, Disp: 118 mL, Rfl: 0 hydroCHLOROthiazide (HYDRODIURIL) 25 MG tablet, take 1 tablet by mouth every day in the morning, Disp: 90 tablet, Rfl: 0 Lancets (ONETOUCH ULTRASOFT) lancets, Check blood sugar once daily in AM when fasting, Disp: 1 each, Rfl: 11 lisinopril (PRINIVIL) 40 MG tablet, TAKE ONE TABLET BY MOUTH DAILY AT 9AM, Disp: 180 tablet, Rfl: 1 metFORMIN ER (GLUCOPHAGE-XR) 500 MG 24 hr tablet, TAKE 1 TABLET BY MOUTH EVERY DAY WITH BREAKFAST, Disp: 90 tablet, Rfl: 0 oxybutynin XL (DITROPAN-XL) 5 MG 24 hr tablet, Take 1 tablet (5 mg total) by mouth daily., Disp: 90tablet, Rfl: 0 potassium chloride CR (K-TAB) 10 MEQ Tab CR tablet, TAKE ONE TABLET DAILY Patient must be seen for further refills, Disp: 30 tablet, Rfl: 0 predniSONE (DELTASONE) 20 MG tablet, Take 1 tablet (20 mg total) by mouth daily for 10 days., Disp:10 tablet, Rfl: 0 traMADol (ULTRAM) 50 MG tablet, Take 1 tablet (50 mg total) by mouth every 6 (six) hours as needed for Pain. Indications: Chronic Pain, Disp: 60 tablet, Rfl: 0 Allergies: Review of patient's allergies indicates: Allergen Reactions Penicillins Rash Sulfa Antibiotics Rash Medical History: Past Medical History: Diagnosis Date Anxiety disorder, unspecified Arthritis Arthritis of left knee 11/08/2019 Depression GERD (gastroesophageal reflux disease) Hypertension Overactive bladder Surgical History: Past Surgical History: Procedure Laterality Date ANKLE SURGERY left SECTION COLONOSCOPY N/A 04/27/2020 COLONOSCOPY WITH BIOPSY X 3 performed by Joel Keenan MD at [facility] OR EGD HERNIA REPAIR SHOULDER SURG PROC UNLISTED right TONSILLECTOMY TOTAL KNEE ARTHROPLASTY right Social History: Social History Socioeconomic History Marital status: Number of children: 2 Occupational History 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 Neck: Trachea: No tracheal deviation. Pulmonary: Effort: Pulmonary effort is normal. Breath sounds: Wheezing and rhonchi present. Neurological: Mental Status: She is alert and oriented to person, place, and time. Gait: Gait is intact. Psychiatric: Mood and Affect: Mood and affect normal. Filed Vitals: 11/01/23 1327 11/01/23 1450 Pulse: 87 Resp: 24 Temp: 98 ??F (36.7 ??C) TempSrc: Skin SpO2: 98% Weight: 111.1 kg (245 lb) Labs: Labs Reviewed Diagnoses/Impression: 1. Acute cough CORONAVIRUS (COVID-19) INFLUENZA A & B ANTIGEN IA PANEL XR CHEST PA+LAT 2. Nonintractable headache, unspecified chronicity pattern, unspecified headache type CORONAVIRUS (COVID-19) INFLUENZA A & B ANTIGEN IA PANEL 3. Fever, unspecified fever cause CORONAVIRUS (COVID-19) INFLUENZA A & B ANTIGEN IA PANEL XR CHEST PA+LAT 4. Sore throat CORONAVIRUS (COVID-19) INFLUENZA A & B ANTIGEN IA PANEL 5. Bronchitis guaiFENesin-codeine (CHERATUSSIN AC) 100-10 MG/5ML syrup benzonatate (TESSALON PERLES) 100 MG capsule predniSONE (DELTASONE) 20 MG tablet doxycycline hyclate (VIBRAMYCIN) 100 MG capsule Recommendations and Plan: 1. Acute cough - CORONAVIRUS (COVID-19) INFLUENZA A & B ANTIGEN IA PANEL - XR CHEST PA+LAT; Future 2. Nonintractable headache, unspecified chronicity pattern, unspecified headache type - CORONAVIRUS (COVID-19) INFLUENZA A & B ANTIGEN IA PANEL 3. Fever, unspecified fever cause - CORONAVIRUS (COVID-19) INFLUENZA A & B ANTIGEN IA PANEL - XR CHEST PA+LAT; Future 4. Sore throat - CORONAVIRUS (COVID-19) INFLUENZA A & B ANTIGEN IA PANEL 5. Bronchitis - guaiFENesin-codeine (CHERATUSSIN AC) 100-10 MG/5ML syrup; Take 5 mLs by mouth every 6 (six) hoursas needed for Cough. Indications: Cough Dispense: 118 mL; Refill: 0 - benzonatate (TESSALON PERLES) 100 MG capsule; Take 1 capsule (100 mg total) by mouth 3 (three) times daily as needed for Cough. Dispense: 20 capsule; Refill: 0 - predniSONE (DELTASONE) 20 MG tablet; Take 1 tablet (20 mg total) by mouth daily for 10 days. Dispense: 10 tablet; Refill: 0 - doxycycline hyclate (VIBRAMYCIN) 100 MG capsule; Take 1 capsule (100 mg total) by mouth 2 (two) times daily for 10 days. Dispense: 20 capsule; Refill: 0 X-ray unremarkable. Patient noted to have scattered rhonchi upon auscultation in exam room today. Symptoms suggestive of bronchitis. Patient has an inhaler already at home she will use on an as-needed basis. I sent her over an antibiotic, cough meds as well as a steroid. We discussed the risk, benefits and side effects associated with these medications. She is reminded not to mix the Cheratussin with any other sedating medications. If no improvement in her symptoms by early next week she is to let us know. We discussed danger signs and when she is to seek emergency care over the weekend. I personally spent a total of 32 minutes on the day of the encounter. This includes ewcd-[id number]-aorn and svk-chvn-[id number]-face time I provided on the day of the encounter & excludes time spent performing separately reportable services. Orders Placed This Encounter XR CHEST PA+LAT guaiFENesin-codeine (CHERATUSSIN AC) 100-10 MG/5ML syrup benzonatate (TESSALON PERLES) 100 MG capsule predniSONE (DELTASONE) 20 MG tablet doxycycline hyclate (VIBRAMYCIN) 100 MG capsule CORONAVIRUS (COVID-19) INFLUENZA A & B ANTIGEN IA PANEL Cannot display discharge medications since this is not an admission. PCP: JENNIFER Davila 11/01/2023 UTOR OF ESTATE documented in this encounter Plan of Treatment Upcoming Encounters Date Type Department Care Team (Late st Contact Info) Description 10/09/2024 9:30 AM EXECUTOR OF ESTATE Office Visit [facility] [phone] Carlos Farris MD [facility] [address] [place] [address] 11/02/2024 10:20 AM EXECUTOR OF ESTATE Office Visit [facility] Family & Internal Medicine - [address] [phone] Sami Liriano DO [address] [place] [phone] documented as of this encounter Procedures Procedure Name Priority Date/Time Associated Diagnosis Comments CORONAVIRUS (COVID-19) INFLUENZA A & B ANTIGEN IA PANEL Routine 11/01/2023 Acute cough Nonintractable headache, unspecified chronicity pattern, unspecified headache type Fever, unspecified fever cause Sore throat documented in this encounter Results * XR CHEST PA+LAT (11/01/2023 2:57 PM EXECUTOR OF ESTATE) Anatomical Region Laterality Modality Chest Radiographic Jody ging 11/01/2023 3:09 PM EXECUTOR OF ESTATE Impressions 11/01/2023 3:10 PM EXECUTOR OF ESTATE IMPRESSION: Stable chest, no acute findings. Ordered By: NATHAN SEXTON Interpreted By: Bola Hood MD, 11/01/2023 3:09 PM Narrative 11/01/2023 3:10 PM EXECUTOR OF ESTATE 2 VIEWS OF THE CHEST Clinical history: Cough Comparison: April 25, 2023 2 views of the chest demonstrate the cardiac silhouette to be normal in size and appears stable. The pulmonary vessels are normally distributed. The Lungs are clear. No consolidations or effusions are seen. Procedure Note Bola Hood MD - 11/01/2023 2 VIEWS OF THE CHEST Clinical history: Cough Comparison: April 25, 2023 2 views of the chest demonstrate the cardiac silhouette to be normal insize and appears stable. The pulmonary vessels are normally distributed.The Lungs are clear. No consolidations or effusions are seen. IMPRESSION: Stable chest, no acute findings. Ordered By: NATHAN SEXTON Interpreted By: Bola Hood MD, 11/01/2023 3:09 PM [facility] Final Resul t * CORONAVIRUS (COVID-19) INFLUENZA A & B ANTIGEN IA PANEL (11/01/2023) CORONAVIRUS ANTIGEN IA NEGATIVE NEGATIVE [facility] INFLUENZA A NEGATIVE NEGATIVE [facility] INFLUENZA B NEGATIVE NEGATIVE [facility] Internal Control: VALID VALID [facility] NASAL STRUCTURE / Unknown 11/01/2023 [facility] - GENERAL ORDE RABLES Final Result [facility] [address] [place] [address], documented in this encounter Visit Diagnoses Diagnosis Acute cough- Primary Nonintractable headache, unspecified chronicity pattern, unspecified headache type Fever, unspecified fever cause Sore throat Acute pharyngitis Bronchitis Bronchitis, not specified as acute or chronic documented in this encounter Additional Health Concerns Infection Onset Date Last Indicated Resolved Time COVID-19 Rule Out 11/01/2023 11/01/2023 11/01/2023 2:42 PM EXECUTOR OF ESTATE Assessment Noted Time PHQ-9 Depression Total Score: 0 10/11/19 22 10:50 AM EXECUTOR OF ESTATE documented as of this encounter Care Teams Barrel Rib Matting Machine Operator Relationship Specialty Start Date End Date Sami Liriano DO [address] [place] [phone] PCP - General FAMILY PRACTICE 12/24/19 documented as of this encounter
--- OUTSIDE RECORDS SUMMARY | 2024-09-19 12:15 | XMS_ITS | Encounter Summary ---
Author Organization [facility] Address [address] [place] [address]. 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 Not on file Not on franck e documented as of this encounter Plan of Treatment Upcoming Encounters Date Type Department Care Team (Late st Contact Info) Description 10/09/2024 9:30 AM SUPERINTENDENT TRANSMISSION Office Visit [facility] [phone] Carlos Farris MD [facility] [address] [place] [address] 11/02/2024 10:20 AM SUPERINTENDENT TRANSMISSION Office Visit [facility] Family & Internal Medicine - [address] [phone] Sami Liriano DO [address] [place] [address] documented as of this encounter Visit Diagnoses Not on filedocumented in this encounter Additional Health Concerns Assessment Noted Time PHQ-9 Depression Total Score: 0 10/11/19 22 10:50 AM SUPERINTENDENT TRANSMISSION documented as of this encounter Care Teams Key Account Coordinator Relationship Specialty Start Date End Date Sami Liriano DO [address] [place] [address] PCP - General FAMILY PRACTICE 12/24/19 documented as of this encounter
--- OUTSIDE RECORDS SUMMARY | 2024-09-19 12:15 | XMS_ITS | Encounter Summary ---
Author Organization [facility] Address [address] [place] [address]. [place], [place] [address] [place] [address] Care Team Providers Care Gage Maker Name Role Phone Sami Liriano DO Primary Care Provider + Reason for Visit * Reason Onset Date Comments Quality Gap Closure 09/18/2023 Encounter Details Date Type Department Care Team (Late st Contact Info) Description 09/18/2023 Patient Outreach [facility] Family & Internal Medicine [phone] [place] [phone] Sami Liriano DO [address] [place] [address] [phone] Quality Gap Closure Social History Tobacco Use Types Packs/Day Years [...] on file Legal Sex Female 12:43 PM ABRASIVE WATER JET CUTTER OPERATOR Gender Identity Female 12/18/2021 6:31 AM CDT Sexual Orientation Straight 01/15/2022 6: 11 AM CDT 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 If you need to contact me directly- my number is [phone]. Preventive Screenings: Breast Cancer Screening: Pending Completion Notes: ordered Colorectal Cancer Screening: Pending Completion Notes: scheduled for 09/27/2023 Diabetic Eye Exam: Up to Date Notes: 04/26/2024 Falls Risk Screening: Up to Date Notes: Tobacco Cessation: N/A Notes: Labs: BMP/CMP: Up to Date Notes: Hemoglobin A1c: Up to Date Notes: Lipid: Up to Date Notes: Urine Albumin-Creatinine Ratio: Up to Date Notes: Immunizations: Influenza: Needs Follow Up Notes: Pneumococcal: Up to Date Notes: Shingles: Needs Follow Up Notes: SIVE WATER JET CUTTER OPERATOR documented in this encounter Plan of Treatment Upcoming Encounters Date Type Department Care Team (Late st Contact Info) Description 10/09/2024 9:30 AM ABRASIVE WATER JET CUTTER OPERATOR Office Visit [facility] [phone] Carlos Farris MD [address] [facility] [address] [place] [address] 11/02/2024 10:20 AM ABRASIVE WATER JET CUTTER OPERATOR Office Visit [facility] Family & Internal Medicine - [address] [phone] Sami Liriano DO [address] [place] [address] documented as of this encounter Visit Diagnoses Not on filedocumented in this encounter Additional Health Concerns Assessment Noted Time PHQ-9 Depression Total Score: 0 01/12/20 22 10:50 AM ABRASIVE WATER JET CUTTER OPERATOR documented as of this encounter Care Teams Gage Maker Relationship Specialty Start Date End Date Sami Liriano DO [address] [place] [phone] PCP - General FAMILY PRACTICE 12/24/19 documented as of this encounter
--- OUTSIDE RECORDS SUMMARY | 2024-09-19 12:15 | XMS_ITS | Encounter Summary ---
Author Organization [facility] Address [address] [place] [address]. 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 Not on file Not on franck e documented as of this encounter Plan of Treatment Upcoming Encounters Date Type Department Care Team (Late st Contact Info) Description 10/09/2024 9:30 AM DELI COOK Office Visit [facility] [phone] Carlos Farris MD [facility] [address] [place] [address] 11/02/2024 10:20 AM DELI COOK Office Visit [facility] Family & Internal Medicine - [address] [phone] [place] [address] [place] [address] documented as of this encounter Visit Diagnoses Not on filedocumented in this encounter Additional Health Concerns Assessment Noted Time PHQ-9 Depression Total Score: 0 10/11/19 22 10:50 AM DELI COOK documented as of this encounter Care Teams Fine Wire Drawer Relationship Specialty Start Date End Date Sami Liriano DO [address] [place] [address] PCP - General FAMILY PRACTICE 12/24/19 documented as of this encounter
--- OUTSIDE RECORDS SUMMARY | 2024-09-19 12:15 | XMS_ITS | Encounter Summary ---
Author Organization [facility] System Address [address] [place] [address]. [place], [place] [address] [place] [address] Care Team Providers Care Telecommunications Project Manager Name Role Phone Sami Liriano DO Primary Care Provider + Encounter Details Date Type Department Care Team (Latest Contact Info) Description 07/24/2023 - 07/24/2023 11:59 PM CDT Hospital Encounter [facility] [address] [facility] [place] [place] [address] Sami Liriano DO [address] [place] [address] Discharge Disposition: Home or Self Care (Routine [...] on file Legal Sex Female 12:43 PM CERTIFIED PUBLIC ACCOUNTANT Gender Identity Female 12/18/2021 6:31 AM CDT Sexual Orientation Straight 01/15/2022 6: 11 AM CDT 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 albuterol sulfate HFA 108 (90 Base) MCG/ACT inhalerIndications:W heezing Inhale 2 puffs into the lungs every 4 (four) hours as needed for Wheezing or Shortness of breath. 18 g 2 04/10/2023 3 atorvastatin (LIPITOR) 10 MG tabletIndications:Mi xed hyperlipidemia TAKE 1 TABLET BY MOUTH EVERY DAY AT NIGHT 90 tablet 02/11/2023 4 Blood Glucose Monitoring Suppl (ONE TOUCH ULTRA 2) w/Device KitIndications:Type 2 diabetes mellitus without complication, without long-term current use of insulin ([facility] HHS/HCC) Check blood sugar once daily in AM when fasting 1 kit 08/07/2021 4 buPROPion XL (WELLBUTRIN XL) 150 MG 24 hr tabletIndications:Cu rrent moderate episode of major depressive disorder without prior episode (CMS/HCC HHS/HCC) TAKE 2 TABLETS BY MOUTH EVERY DAY 180 tablet 02/11/2023 3 doxycycline hyclate (VIBRAMYCIN) 100 MG capsuleIndications:M ucopurulent chronic bronchitis (CMS/HCC HHS/HCC) Take 1 capsule (100 mg total) by mouth 2 (two) times daily for 10 days. 20 capsule 07/24/2023 3 escitalopram (LEXAPRO) 20 MG tabletIndications:Cu rrent mild episode of major depressive disorder without prior episode ([facility]/HCC) TAKE 1 TABLET BY MOUTH EVERY DAY 90 tablet 1 02/11/2023 3 Glucose Blood test stripIndications:Typ e 2 diabetes mellitus without complication, without long-term current use of insulin ([facility]/HCC HHS/HCC) Check blood sugar once daily in AM when fasting 100 strip 11 08/07/2021 4 hydroCHLOROthiazide (HYDRODIURIL) 25 MG tabletIndications:Hy pertension associated with type 2 diabetes mellitus (CMS/HCC HHS/HCC) TAKE 1 TABLET BY MOUTH EVERY DAY IN THE MORNING 90 tablet 02/11/2023 4 Lancets (ONETOUCH ULTRASOFT) lancetsIndications:T ype 2 diabetes mellitus without complication, without long-term current use of insulin ([facility]) Check blood sugar once daily in AM when fasting 1 each 11 08/07/2021 4 lisinopril (PRINIVIL) 40 MG tabletIndications:Es sential hypertension TAKE ONE TABLET BY MOUTH DAILY AT 9AM 180 tablet 1 06/01/2022 4 metFORMIN ER (GLUCOPHAGE-XR) 500 MG 24 hr tabletIndications:Ty pe 2 diabetes mellitus without complication, without long-term current use of insulin ([facility]) TAKE 1 TABLET BY MOUTH EVERY DAY WITH BREAKFAST 90 tablet 07/01/2023 4 OMEPRAZOLE 40 MG capsuleIndications:G astroesophageal reflux disease without esophagitis TAKE ONE CAPSULE BY MOUTH DAILY AT 9AM 90 capsule 02/15/2022 3 oxybutynin XL (DITROPAN-XL) 5 MG 24 hr tabletIndications:Ov eractive bladder TAKE 1 TABLET BY MOUTH EVERY DAY 90 tablet 12/31/2022 4 potassium chloride CR (K-TAB) 10 MEQ Tab CR tabletIndications:Bi lateral lower extremity edema TAKE ONE TABLET DAILY Patient must be seen for further refills 30 tablet 09/25/2022 4 predniSONE (DELTASONE) 20 MG tabletIndications:Mu copurulent chronic bronchitis ([facility]) Take 3 tablets for three days, then take 2 tablets for three days, then take 1 tablet for three days 18 tablet 07/24/2023 3 traMADol (ULTRAM) 50 MG tabletIndications:Ch ronic Pain Take 1 tablet (50 mg total) by mouth every 6 (six) hours as needed for Pain. Indications: Chronic Pain 60 tablet 07/03/2022 4 documented as of this encounter Plan of Treatment Upcoming Encounters Date Type Department Care Team (Late st Contact Info) Description 10/09/2024 9:30 AM CERTIFIED PUBLIC ACCOUNTANT Office Visit [facility] [address] Carlos Farris MD Three [facility] [address] [place] [address] 11/02/2024 10:20 AM CERTIFIED PUBLIC ACCOUNTANT Office Visit [facility] Family & Internal Medicine - [place] [address] [place] [address] Sami Liriano DO [address] [place] [address] documented as of this encounter Visit Diagnoses Not on filedocumented in this encounter Additional Health Concerns Infection Onset Date Last Indicated Resolved Time COVID-19 Rule Out 07/24/2023 07/24/2023 07/24/2023 11:49 AM CDT COVID-19 Rule Out 07/24/2023 07/24/2023 07/25/2023 4:22 PM CDT Assessment Noted Time PHQ-9 Depression Total Score: 0 10/11/19 10:50 AM CERTIFIED PUBLIC ACCOUNTANT documented as of this encounter Care Teams Telecommunications Project Manager Relationship Specialty Start Date End Date Sami Liriano DO [address] [place] [address] PCP - General FAMILY PRACTICE 12/24/19 documented as of this encounter
--- OUTSIDE RECORDS SUMMARY | 2024-09-19 12:15 | XMS_ITS | Encounter Summary ---
Author Organization [facility] Address [address] [place] [address]. [place], [place] [id number] [place] [address] Care Team Providers Care Stripping Machine Operator Name Role Phone Sami Gimenez DO Primary Care Provider + Reason for Visit * Reason Onset Date Comments Medication Request 07/25/2023 Encounter Details Date Type Department Care Team (Late st Contact Info) Description 07/25/2023 Telephone [facility] Family & Internal Medicine [facility] [address] [place] [address] Sami Gimenez DO [facility] [place] [address] Medication Request Social History Tobacco [...] on file Legal Sex Female 12:43 PM 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 * Winter Espinosa - 07/25/2023 10:42 AM CDT Refill request received from Patient Medication: albuterol sulfate HFA 108 (90 Base) MCG/ACT inhaler Pharmacy: [facility] [place], [place] Last visit with SAMI GIMENEZ in FAMILY PRACTICE was on: 07/24/2023 in [facility] Future Appointments Date Time Provider Department Center 07/26/2023 9:40 AM Sami Gimenez DO [facility]MRVL [facility] 09/27/2023 3:00 PM Saloni Wood [facility] documented in this encounter Plan of Treatment Upcoming Encounters Date Type Department Care Team (Late st Contact Info) Description 10/09/2024 9:30 AM VICE PRESIDENT OF NEWS Office Visit [facility] [phone] Carlos Farris MD [facility] [address] [place] [address] 11/02/2024 10:20 AM VICE PRESIDENT OF NEWS Office Visit [facility] Family & Internal Medicine - [address] [phone] Sami Gimenez DO [address] [place] [address] documented as of this encounter Visit Diagnoses Not on filedocumented in this encounter Additional Health Concerns Infection Onset Date Last Indicated Resolved Time COVID-19 Rule Out 07/24/2023 07/24/2023 07/25/2023 4:22 PM CDT Assessment Noted Time PHQ-9 Depression Total Score: 0 10/11/19 10:50 AM VICE PRESIDENT OF NEWS documented as of this encounter Care Teams Stripping Machine Operator Relationship Specialty Start Date End Date Sami Gimenez DO [address] [place] [address] PCP - General FAMILY PRACTICE 12/24/19 documented as of this encounter
--- OUTSIDE RECORDS SUMMARY | 2024-09-19 12:15 | XMS_ITS | Encounter Summary ---
Author Organization [facility] Address [address] [place] [address]. 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 [address] [place] [address] 11/02/2024 10:20 AM MANAGING DIRECTOR ATLAS Office Visit [facility] Family & Internal Medicine - [address] [address] Sami Liriano DO [address] [place] [address] documented as of this encounter Visit Diagnoses Not on filedocumented in this encounter Additional Health Concerns Assessment Noted Time PHQ-9 Depression Total Score: 0 10/11/19 22 10:50 AM MANAGING DIRECTOR ATLAS documented as of this encounter Care Teams Disaster Recovery Manager Relationship Specialty Start Date End Date Sami Liriano DO [address] [place] [address] PCP - General FAMILY PRACTICE 12/24/19 documented as of this encounter
--- OUTSIDE RECORDS SUMMARY | 2024-09-19 12:15 | XMS_ITS | Encounter Summary ---
Author Organization [facility] Address [address] [place] [address]. [place], [place] [address] [place] [address] Care Team Providers Care Major League Baseball Umpire Name Role Phone Sami Liriano DO Primary Care Provider + Reason for Visit * Reason Onset Date Comments Error 09/18/2023 Encounter Details Date Type Department Care Team (Late st Contact Info) Description 09/18/2023 Patient Outreach [facility] Family & Internal Medicine [place] [address] [place] [address] Sami Liriano DO [address] [place] [address] Error Social History Tobacco Use Types Packs/Day Years [...] on file Legal Sex Female 12:43 PM LEASE ANALYST Gender Identity Female 12/18/2021 6:31 AM CDT Sexual Orientation Straight 01/15/2022 6: 11 AM CDT 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 [address] [place] [address] 11/02/2024 10:20 AM LEASE ANALYST Office Visit [facility] Family & Internal Medicine - [address] [address] Sami Liriano DO [address] [place] [address] documented as of this encounter Visit Diagnoses Not on filedocumented in this encounter Additional Health Concerns Assessment Noted Time PHQ-9 Depression Total Score: 0 10/11/19 22 10:50 AM LEASE ANALYST documented as of this encounter Care Teams Major League Baseball Umpire Relationship Specialty Start Date End Date Sami Liriano DO [address] [place] [address] PCP - General FAMILY PRACTICE 12/24/19 documented as of this encounter
--- OUTSIDE RECORDS SUMMARY | 2024-09-19 12:16 | XMS_ITS | Encounter Summary ---
Author Organization [facility] Address [address] [place] [address]. [place], [place] [address] [place] [address] Care Team Providers Care Celluloid Trimmer Name Role Phone Sami Liriano DO Primary Care Provider + Reason for Visit * Reason Onset Date Comments Sinus Problem 04/18/2023 Advice 04/18/2023 Encounter Details Date Type Department Care Team (Late st Contact Info) Description 04/18/2023 Telephone [facility] Family & Internal Medicine [place] [id number] [place] [address] Sami Liriano DO [facility] [place] [place] [address] Sinus Problem; Advice Social History Tobacco Use Types Packs/Day [...] on file Legal Sex Female 12:43 PM TRANSLATIONAL SPECIALIST Gender Identity Female 12/18/2021 6:31 AM CDT Sexual Orientation Straight 01/15/2022 6: 11 AM CDT 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 Gave red flag s/s to monitor for. Opportunity given for all questions to be answered, no further needs voiced at this time. LL-04/18/23 * Iris Nicole - 04/18/2023 11:13 AM CDT Jolly called in, she is still having sinus issues after taking a z-radha, she is asking for someone to give her a call back for advice. documented in this encounter Plan of Treatment Upcoming Encounters Date Type Department Care Team (Late st Contact Info) Description 10/09/2024 9:30 AM TRANSLATIONAL SPECIALIST Office Visit [facility] [phone] Carlos Farris MD Three [facility] [address] [place] [address] 11/02/2024 10:20 AM TRANSLATIONAL SPECIALIST Office Visit [facility] Family & Internal Medicine - [address] [phone] Sami Liriano DO [address] [place] [address] documented as of this encounter Visit Diagnoses Not on filedocumented in this encounter Additional Health Concerns Assessment Noted Time PHQ-9 Depression Total Score: 0 10/11/19 10:50 AM TRANSLATIONAL SPECIALIST documented as of this encounter Care Teams Celluloid Trimmer Relationship Specialty Start Date End Date Sami Liriano DO [address] [place] [address] PCP - General FAMILY PRACTICE 12/24/19 documented as of this encounter
--- OUTSIDE RECORDS SUMMARY | 2024-09-19 12:16 | XMS_ITS | Encounter Summary ---
Author Organization [facility] Address [facility], [id number] [facility] 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 file Not on franck e documented as of this encounter Plan of Treatment Upcoming Encounters Date Type Department Care Team (Late st Contact Info) Description 10/09/2024 9:30 AM INDUSTRIAL TRAINER Office Visit [facility] [address] Carlos Farris MD [address] [facility] [address] [place] [address] 11/02/2024 10:20 AM INDUSTRIAL TRAINER Office Visit [facility] Family & Internal Medicine - [address] [phone] Sami Liriano DO [address] [place] [address] documented as of this encounter Visit Diagnoses Not on filedocumented in this encounter Additional Health Concerns Infection Onset Date Last Indicated Resolved Time COVID-19 Rule Out 07/24/2023 07/24/2023 07/24/2023 11:49 AM CDT COVID-19 Rule Out 07/24/2023 07/24/2023 07/25/2023 4:22 PM CDT Assessment Noted Time PHQ-9 Depression Total Score: 0 10/11/19 10:50 AM INDUSTRIAL TRAINER documented as of this encounter Care Teams Control Electrician Relationship Specialty Start Date End Date Sami Liriano DO [address] [place] [address] PCP - General FAMILY PRACTICE 12/24/19 documented as of this encounter
--- OUTSIDE RECORDS SUMMARY | 2024-09-19 12:16 | XMS_ITS | Encounter Summary ---
Author Organization [facility] Address [facility]. [place], [place] [id number] [place] [address] Care Team Providers Care Burlap Spreader Name Role Phone Sami Liriano DO Primary Care Provider + Reason for Visit * Reason Comments Cough Cough, fatigue and h eadache. The symptoms started on Saturday. Encounter Details Date Type Department Care Team (Late st Contact Info) Description 07/24/2023 10:40 AM CDT Office Visit [facility] Family & Internal Medicine [address] [phone] Sami Liriano DO [address] [place] [address] [phone] Cough (Cough, fatigue and headache. The symptoms started on Saturday. 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 Not on file Not on franck e documented as of this encounter Last Filed Vital Signs Vital Sign Reading Time Taken Comments Blood Pressure 124/74 07/24/2023 10:50 AM CDT Pulse 83 07/24/2023 10:50 AM CDT Temperature 36.2 ??C (97.2 ??F) 07/24/2023 10:50 AM C DT Respiratory Rate 24 07/24/2023 10:50 AM CDT Oxygen Saturation 98% 07/24/2023 10:50 AM CDT Inhaled Oxygen Concentration - - Weight 113 kg (249 lb 1.6 oz) 07/24/2023 10:50 A M CDT Height 152.4 cm (5') 07/24/2023 10:50 AM CDT Body Mass Index 48.65 07/24/2023 10:50 AM CDT documented in this encounter Progress Notes * Sami Liriano, - 07/24/2023 10:40 AM CDT Images from the original note were not included. GENERAL OFFICE VISIT Encounter Date: 07/24/2023 Chief Complaint: 68-year-old female presents for Cough (Cough, fatigue and headache. The symptoms started on Saturday.) HPI: Patient states symptoms have been present for 3 days. Symptoms include headache (notably severe initially but then improved), cough, wheezing, and fatigue. Pertinent negatives include Abdominal Pain,N/V, Fevers, Chills, Chest Pain, SOB, Myalgias, and Rash. Patient has no sick contacts. OTC medications tried include none. Pt has been using albuterol as prescribed. Pt has had multiple episodes of pneumonia and bronchitis since having COVID in 2021. Review of Systems Constitutional: Positive for fatigue. Negative for chills and fever. HENT: See HPI Respiratory: Positive for cough. Negative for shortness of breath. Cardiovascular: Negative for chest pain. Gastrointestinal: Negative for abdominal pain. Neurological: Positive for headaches. Patient Active Problem List Diagnosis Alopecia Hypertension associated with type 2 diabetes mellitus ([facility]) ([facility]) Arthritis of left knee GERD (gastroesophageal reflux disease) Overactive bladder Depression Pharyngoesophageal dysphagia Positive colorectal cancer screening using Cologuard test [place] positive Stage 3a chronic kidney disease ([facility]) Severe obstructive sleep apnea Hyperlipidemia associated with type 2 diabetes mellitus ([facility]/HCC) ([facility]) BMI 45.0-49.9, adult ([facility]) Current mild episode of major depressive disorder without prior episode ([facility]) Generalized osteoarthritis of multiple sites Inflammatory arthritis Urinary tract infection Morbid (severe) obesity due to excess calories ([facility]) Past Medical History: Diagnosis Date Arthritis Arthritis of left knee 11/08/2019 Depression GERD (gastroesophageal reflux disease) Hypertension Overactive bladder Past Surgical History: Procedure Laterality Date ANKLE SURGERY left SECTION COLONOSCOPY N/A 04/27/2020 COLONOSCOPY WITH BIOPSY X 3 performed by Joel Keenan MD at [facility] OR EGD HERNIA REPAIR SHOULDER SURG PROC [...] level: Not on file Occupational History 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 20 capsule 0 predniSONE (DELTASONE) 20 MG tablet Take 3 tablets for three days, then take 2 tablets for three days, then take 1 tablet for three days 18 tablet 0 acetaminophen 325 MG tablet Take 1 tablet [...] BY MOUTH EVERY DAY 180 tablet 0 escitalopram (LEXAPRO) 20 MG tablet [...] Rash Sulfa Antibiotics Rash Objective: Filed Vitals: 07/24/23 1050 BP: 124/74 Pulse: 83 Resp: 24 Temp: 97.2 ??F (36.2 ??C) TempSrc: Skin SpO2: 98% Weight: 113 kg (249 lb 1.6 oz) Height: 1.524 m (5') Physical Exam Vitals and nursing note reviewed. Constitutional: Comments: Coughing frequently during exam HENT: Head: Normocephalic and atraumatic. Right Ear: Tympanic membrane, ear canal and external ear normal. Left Ear: Ear canal and external ear normal. Ears: Comments: Possible left TM scarring Nose: Nose normal. Eyes: General: No scleral icterus. Conjunctiva/sclera: Conjunctivae normal. Cardiovascular: Rate and Rhythm: Normal rate and regular rhythm. Heart sounds: Normal heart sounds. No murmur heard. No friction rub. No gallop. Pulmonary: Effort: Pulmonary effort is normal. No respiratory distress. Breath sounds: No stridor. Wheezing present. No rales. Abdominal: Palpations: Abdomen is soft. Tenderness: There is no abdominal tenderness. Musculoskeletal: Cervical back: Neck supple. Lymphadenopathy: Cervical: No cervical adenopathy. Skin: General: Skin is warm and dry. Findings: No rash. Neurological: Mental Status: She is alert. Mental status is at baseline. Psychiatric: Mood and Affect: Mood and affect normal. Office Visit on 07/24/2023 Component Date Value Ref Range Status CORONAVIRUS ANTIGEN IA 07/24/2023 NEGATIVE NEGATIVE Final INFLUENZA A 07/24/2023 NEGATIVE NEGATIVE Final INFLUENZA B 07/24/2023 NEGATIVE NEGATIVE Final Internal Control: 07/24/2023 VALID (A) VALID Final Assessment & Plan: Jolly was seen today for cough. Diagnoses and all orders for this visit: Mucopurulent chronic bronchitis ([facility]/HCC) ([facility]) - Complete PFT (pre/post [place], Lung Vol, Diff Capacity) (37903, 41458, 15588, 02810); Future - CT CHEST WO CON; Future - doxycycline hyclate (VIBRAMYCIN) 100 MG capsule; Take 1 capsule (100 mg total) by mouth 2 (two) times daily for 10 days. - predniSONE (DELTASONE) 20 MG tablet; Take 3 tablets for three days, then take 2 tablets for threedays, then take 1 tablet for three days Acute cough - CORONAVIRUS (COVID 19) PCR; Future - CORONAVIRUS (COVID-19) INFLUENZA A & B ANTIGEN IA PANEL - CORONAVIRUS (COVID 19) PCR Discussion/Summary: For acute symptoms, will treat with doxycycline and prednisone. Discussed side effect profile. Given multiple episodes of similar symptoms since 2021, will order PFT and CT of chest to evaluate for chronic disease that was not noted on previous CXR from 04/25/23 when she had similar presentation. Pt is already scheduled for f/u in 2 days, so instructed her to keep this appointment. Pt v/u. Sami Liriano DO documented in this encounter Plan of Treatment Upcoming Encounters Date Type Department Care Team (Late st Contact Info) Description 10/09/2024 9:30 AM CABLE PULLER Office Visit [facility] [phone] Carlos Farris MD [facility] [address] [place] [address] 11/02/2024 10:20 AM CABLE PULLER Office Visit [facility] Family & Internal Medicine - [address] [phone] Sami Liriano DO [address] [place] [phone] documented as of this encounter Procedures Procedure Name Priority Date/Time Associated Diagnosis Comments CORONAVIRUS (COVID 19) PCR Routine 07/24/2023 1:54 PM CDT Acute cough CORONAVIRUS (COVID-19) INFLUENZA A & B ANTIGEN IA PANEL Routine 07/24/2023 Acute cough documented in this encounter Results * CORONAVIRUS (COVID 19) PCR (07/24/2023 1:54 PM CDT) SPEC DESCRIPTION NASAL 07/24/20 1:54 PM CDT [facility] ([facility] CORONAVIRUS SARS COV 2 PCR (RESP) NEGATIVE NEGATIVE 07/25/2023 4:22 PM CDT [facility] Comment: THE SARS-CoV-2 TEST HAS BEEN AUTHORIZED BY THE FDA UNDER AN EUA FOR USE BY AUTHORIZED LABORATORIES. PERFORMED BY NUCLEIC ACID AMPLIFICATION PCR NASOPHARYNGEAL SWAB / Unknown 07/24/2023 1:54 PM CDT us Sami Liriano DO MICROBIOLOGY - GENERAL O RDERABLES Final Result Performing Organization Address City/[facility]/ZIP Co de Phone Number [facility] [address] [facility] [place] [address], * (ABNORMAL) CORONAVIRUS (COVID-19) INFLUENZA A & B ANTIGEN IA PANEL (07/24/2023) CORONAVIRUS ANTIGEN IA NEGATIVE NEGATIVE [facility] INFLUENZA A NEGATIVE NEGATIVE [facility] INFLUENZA B NEGATIVE NEGATIVE [facility] Internal Control: VALID(A) VALID [facility] NASAL STRUCTURE / Unknown 07/24/2023 us Sami Liriano DO MICROBIOLOGY - GENERAL O RDERABLES Final Result Performing Organization Address [facility] Co de Phone Number [facility] [address] [place] [address], documented in this encounter Visit Diagnoses Diagnosis Mucopurulent chronic bronchitis ([facility])- Primary Mucopurulent chronic bronchitis Acute cough documented in this encounter Additional Health Concerns Infection Onset Date Last Indicated Resolved Time COVID-19 Rule Out 07/24/2023 07/24/2023 07/24/2023 11:49 AM CDT COVID-19 Rule Out 07/24/2023 07/24/2023 07/25/2023 4:22 PM CDT Assessment Noted Time PHQ-9 Depression Total Score: 0 10/11/19 10:50 AM CABLE PULLER documented as of this encounter Care Teams Burlap Spreader Relationship Specialty Start Date End Date Sami Liriano DO [address] [place] [address] PCP - General FAMILY PRACTICE 12/24/19 documented as of this encounter
--- OUTSIDE RECORDS SUMMARY | 2024-09-19 12:16 | XMS_ITS | Encounter Summary ---
Author Organization [facility] Address [address] [place] [address]. 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 Not on file Not on franck e documented as of this encounter Plan of Treatment Upcoming Encounters Date Type Department Care Team (Late Contact Info) Description 10/09/2024 9:30 AM WATER SYSTEM OPERATOR Office Visit [facility] [place] [phone] Carlos Farris MD [facility] [address] [place] [address] 11/02/2024 10:20 AM WATER SYSTEM OPERATOR Office Visit [facility] Family & Internal Medicine - [address] [phone] Sami Liriano DO [address] [place] [address] documented as of this encounter Visit Diagnoses Not on filedocumented in this encounter Additional Health Concerns Assessment Noted Time PHQ-9 Depression Total Score: 0 10/11/19 22 10:50 AM WATER SYSTEM OPERATOR documented as of this encounter Care Teams Biology Specialist Relationship Specialty Start Date End Date Sami Liriano DO [address] [place] [phone] PCP - General FAMILY PRACTICE 12/24/19 documented as of this encounter
--- OUTSIDE RECORDS SUMMARY | 2024-09-19 12:16 | XMS_ITS | Encounter Summary ---
Author Organization [facility] Address [address] [place] [address]. [place], [place] [phone] [place] [address] Care Team Providers Care Machine Sizer Name Role Phone Sami Liriano DO Primary Care Provider + Reason for Visit * Reason Onset Date Comments Pre-visit Gap Closure 04/17/2023 Encounter Details Date Type Department Care Team (Late st Contact Info) Description 04/17/2023 Patient Outreach [facility] Family & Internal Medicine [address] [phone] Sami Liriano DO [address] [place] [address] [phone] Pre-visit Gap Closure Social History Tobacco Use Types [...] on file Legal Sex Female 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 Gender Identity Female 12/18/2021 6:31 AM CDT Sexual Orientation Straight 01/15/2022 6: 11 AM CDT 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 Not on file Not on franck e documented as of this encounter Progress Notes * Rafael Garces - 04/17/2023 3:38 PM CDT Preventive Screenings: Breast Cancer Screening: MyChart Notes: Colorectal Cancer Screening: Up to Date Notes: 04/27/2020 Diabetic Eye Exam: N/A Notes: Falls Risk Screening: Up to Date Notes: 12/19/2022 Tobacco Cessation: N/A Notes: Labs: BMP/CMP: N/A Notes: Hemoglobin A1c: N/A Notes: Lipid: N/A Notes: Urine Albumin-Creatinine Ratio: N/A Notes: Immunizations: Pneumococcal: Up to Date Notes: Shingles: Needs Follow Up Notes: documented in this encounter Plan of Treatment Upcoming Encounters Date Type Department Care Team (Late st Contact Info) Description 10/09/2024 9:30 AM PIERCING 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 Office Visit [facility] [phone] Carlos Farris MD [facility] [address] [place] [address] 11/02/2024 10:20 AM PIERCING 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 Office Visit [facility] Family & Internal Medicine - [place] [address] [place] [phone] Sami Liriano DO [address] [place] [phone] documented as of this encounter Visit Diagnoses Not on filedocumented in this encounter Additional Health Concerns Assessment Noted Time PHQ-9 Depression Total Score: 0 10/11/19 10:50 AM PIERCING 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 documented as of this encounter Care Teams Machine Sizer Relationship Specialty Start Date End Date Sami Liriano DO NPI: [id number] [place] [address] PCP - General FAMILY PRACTICE 12/24/19 documented as of this encounter
--- OUTSIDE RECORDS SUMMARY | 2024-09-19 12:16 | XMS_ITS | Encounter Summary ---
Author Organization [facility] Address [address] [facility]. [place], [place] [address] [place] [id number] Care Team Providers Care Agency Sales Management Assistant Name Role Phone Sami Liriano DO Primary Care Provider + Reason for Visit * Reason Comments Respiratory Symptoms The patient states she has black mold in her house. She states her house has been spayed but not cleaned. She has had a cough, loss of voice, fatigue and shortness of breath. The patient has been on z-pack and albuterol which has not helped. Sleep Problem The patient states s he had a sleep study about 1 year ago and is wanting to have c-pap ordered. Encounter Details Date Type Department Care Team (Late st Contact Info) Description 04/19/2023 11:00 AM CDT Office Visit [facility] Family & Internal Medicine - [place] [address] [place] [address] Sami Liriano DO [address] [place] [address] Respiratory Symptoms (The patient states she has black mold in her house. She states her house has been spayed but not cleaned. She has had a cough, loss of voice, fatigue and shortness of breath. The patient has been on z-pack and albuterol which has not helped. ); Sleep Problem (The patient states she had a sleep study about 1 year ago and is wanting to have c-pap ordered. 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 Not on file Not on franck e documented as of this encounter Last Filed Vital Signs Vital Sign Reading Time Taken Comments Blood Pressure 136/74 04/19/2023 11:06 AM CDT Pulse 78 04/19/2023 11:06 AM CDT Temperature 36.2 ??C (97.1 ??F) 04/19/2023 11:06 AM C DT Respiratory Rate 20 04/19/2023 11:06 AM CDT Oxygen Saturation 97% 04/19/2023 11:06 AM CDT Inhaled Oxygen Concentration - - Weight 110 kg (242 lb 8 oz) 04/19/2023 11:06 AM CDT Height 152.4 cm (5') 04/19/2023 11:06 AM CDT Body Mass Index 47.36 04/19/2023 11:06 AM CDT documented in this encounter Progress Notes * Sami Liriano, - 04/19/2023 11:00 AM CDT GENERAL OFFICE VISIT Encounter Date: 04/19/2023 Chief Complaint: 68-year-old female presents for Respiratory Symptoms (The patient states she has black mold in her house. She states her house has been spayed but not cleaned. She has had a cough, loss of voice, fatigue and shortness of breath. The patient has been on z-pack and albuterol which has not helped. ) and Sleep Problem (The patient states she had a sleep study about 1 year ago and is wanting to have c- pap ordered. ) HPI: Patient states symptoms have been present for 14 days. Symptoms include fatigue, cough, loss of voice, and shortness of breath. Pertinent negatives include Fevers, Chills, and Myalgias. Patient has asister with a sore throat. OTC medications tried include Zyrtec. Pt was seen 9 days ago and given albuterol and azithromycin; albuterol has helped. Pt states she had black mold in her water system. Pt is needing a CPAP ordered. She has known MOR, but pt did not want it last year. She needs this again as she benefited from using someone else's CPAP. Pt's sleep study was done on 07/01/21 which was abnormal with AHI >40. . Review of Systems Constitutional: Negative for fever. HENT: See HPI Respiratory: See HPI Cardiovascular: Negative for chest pain. Musculoskeletal: Negative for myalgias. Patient Active Problem List Diagnosis Alopecia Hypertension associated with type 2 diabetes mellitus ([facility]) Arthritis of left knee GERD (gastroesophageal reflux disease) Overactive bladder Depression Pharyngoesophageal dysphagia Positive colorectal cancer screening using Cologuard test ALLYSON positive Stage 3a chronic kidney disease ([facility]) Severe obstructive sleep apnea Hyperlipidemia associated with type 2 diabetes mellitus ([facility]) BMI 45.0-49.9, adult ([facility]) Current mild episode of major depressive disorder without prior episode ([facility]) Generalized osteoarthritis of multiple sites Inflammatory arthritis Urinary tract infection Morbid (severe) obesity due to excess calories ([facility]) Past Medical History: Diagnosis Date Arthritis Arthritis of left knee 11/08/2019 Depression GERD (gastroesophageal reflux disease) Hypertension Overactive bladder Past Surgical History: Procedure Laterality Date ANKLE SURGERY left SECTION COLONOSCOPY N/A 04/27/2020 COLONOSCOPY WITH BIOPSY X 3 performed by Joel Keenan MD at [facility] OR EGD HERNIA REPAIR SHOULDER SURG [...] level: Not on file Occupational History 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 18 g 2 Blood Glucose Monitoring Suppl (ONE TOUCH ULTRA 2) w/Device Kit Check blood sugar once daily in AM when fasting 1 kit 0 buPROPion XL (WELLBUTRIN XL) 150 MG 24 hr tablet TAKE 2 TABLETS BY MOUTH EVERY DAY 180 tablet 0 cefdinir (OMNICEF) 300 MG Cap capsule Take [...] ER (GLUCOPHAGE-XR) 500 MG 24 hr tablet Take 1 tablet (500 mg total) by mouth daily with breakfast. 90 tablet 0 OMEPRAZOLE 40 MG capsule TAKE ONE [...] Pain. Indications: Chronic Pain 60 tablet 0 atorvastatin (LIPITOR) 10 MG tablet TAKE 1 TABLET BY MOUTH EVERY DAY AT NIGHT (Patient not taking: Reported on 04/19/2023) 90 tablet 0 No current facility-administered medications for [...] needed for Wheezing or Shortness of breath. Blood Glucose Monitoring Suppl (ONE TOUCH ULTRA [...] ER (GLUCOPHAGE-XR) 500 MG 24 hr tablet Take 1 tablet (500 mg total) by mouth daily with breakfast. OMEPRAZOLE 40 MG capsule TAKE ONE CAPSULE [...] as needed for Pain. Indications: Chronic Pain atorvastatin (LIPITOR) 10 MG tablet TAKE 1 TABLET BY MOUTH EVERY DAY AT NIGHT (Patient not taking: Reported on 04/19/2023) No current facility-administered medications on file prior to visit. Review of patient's allergies indicates: Allergen Reactions Penicillins Rash Sulfa Antibiotics Rash Objective: Filed Vitals: 04/19/23 1106 BP: 136/74 Pulse: 78 Resp: 20 Temp: 97.1 ??F (36.2 ??C) TempSrc: Skin SpO2: 97% Weight: 110 kg (242 lb 8 oz) Height: 5' (1.524 m) Physical Exam Vitals and nursing note reviewed. HENT: Head: Normocephalic and atraumatic. Right Ear: Tympanic membrane, ear canal and external ear normal. Left Ear: Tympanic membrane, ear canal and external ear normal. Mouth/Throat: Pharynx: No oropharyngeal exudate. Eyes: General: No scleral icterus. Conjunctiva/sclera: Conjunctivae normal. Cardiovascular: Rate and Rhythm: Normal rate and regular rhythm. Heart sounds: Normal heart sounds. No murmur heard. No friction rub. No gallop. Pulmonary: Effort: Pulmonary effort is normal. Comments: Breath sounds decreased but present Abdominal: Palpations: Abdomen is soft. Tenderness: There is no abdominal tenderness. Musculoskeletal: Cervical back: Neck supple. Lymphadenopathy: Cervical: No cervical adenopathy. Skin: General: Skin is warm and dry. Findings: No rash. Neurological: Mental Status: She is alert and oriented to person, place, and time. Psychiatric: Mood and Affect: Mood and affect normal. Assessment & Plan: Jolly was seen today for respiratory symptoms and sleep problem. Diagnoses and all orders for this visit: Bronchitis - predniSONE (DELTASONE) 20 MG tablet; Take 3 tablets for three days, then take 2 tablets for threedays, then take 1 tablet for three days - cefdinir (OMNICEF) 300 MG Cap capsule; Take 1 capsule (300 mg total) by mouth 2 (two) times daily. MOR (obstructive sleep apnea) Discussion/Summary: We will treat as per above; reactive bronchitis versus infectious etiology. Continue albuterol and other [id number] medications that she is already taking. Will order CPAP today; patient has MOR already noted on previous sleep study and is willing to use CPAP at this time. Follow-up with regularly scheduled appointment next week. Patient verbalized understanding. Sami Liriano DO documented in this encounter Plan of Treatment Upcoming Encounters Date Type Department Care Team (Late st Contact Info) Description 10/09/2024 9:30 AM GRAIN SCOOPER Office Visit [facility] [phone] Carlos Farris MD Three [facility] [address] [place] [address] 11/02/2024 10:20 AM GRAIN SCOOPER Office Visit [facility] Family & Internal Medicine - [address] [phone] Sami Liriano DO [address] [place] [address] documented as of this encounter Visit Diagnoses Diagnosis Bronchitis- Primary Bronchitis, not specified as acute or chronic MOR (obstructive sleep apnea) Obstructive sleep apnea (adult) (pediatric) documented in this encounter Additional Health Concerns Assessment Noted Time PHQ-9 Depression Total Score: 0 10/11/19 10:50 AM GRAIN SCOOPER documented as of this encounter Care Teams Agency Sales Management Assistant Relationship Specialty Start Date End Date Sami Liriano DO [address] [place] [address] PCP - General FAMILY PRACTICE 12/24/19 documented as of this encounter
--- OUTSIDE RECORDS SUMMARY | 2024-09-19 12:16 | XMS_ITS | Encounter Summary ---
Author Organization [facility] Address [facility] [facility]. [place], [place] [address] [place] [id number] Care Team Providers Care Special Education Math Teacher Name Role Phone Sami Liriano Primary Care Provider + Encounter Details Date Type Department Care Team (Late st Contact Info) Description 12/18/2022 Orders Only [facility] Orthopedic & Sports Medicine - [place] [address] [place] [address] Manuelito Marcelino PA [address] [place] [address] Social History Tobacco Use Types Packs/Day Years Used Date Smoking Tobacco: Former Cigarettes 1 1976 Smokeless Tobacco: Never Alcohol Use Standard Drinks/Week [...] on file Legal Sex Female 12:43 PM PHOTO OPTICS TECHNICIAN Gender Identity Female 12/18/2021 6:31 AM CDT Sexual Orientation Straight 01/15/2022 6: 11 AM CDT 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 Not on file Not on franck e documented as of this encounter Plan of Treatment Upcoming Encounters Date Type Department Care Team (Late st Contact Info) Description 10/09/2024 9:30 AM PHOTO OPTICS TECHNICIAN Office Visit [facility] [phone] Carlos Farris MD [address] [facility] [address] [place] [address] 11/02/2024 10:20 AM PHOTO OPTICS TECHNICIAN Office Visit [facility] Family & Internal Medicine - [address] [phone] [place] [address] [place] [phone] Scheduled Orders Name Type Priority Associated Diagnoses Orde r Schedule XR KNEE LT 3V Imaging Routine Left knee pain, unspecified chronicity Expected: 12/19/2022, Expires: 12/19/2023 documented as of this encounter Visit Diagnoses Diagnosis Left knee pain, unspecified chronicity- Primary documented in this encounter Additional Health Concerns Assessment Noted Time PHQ-9 Depression Total Score: 0 10/11/19 22 10:50 AM PHOTO OPTICS TECHNICIAN documented as of this encounter Care Teams Special Education Math Teacher Relationship Specialty Start Date End Date Sami Liriano DO [address] [place] [id number] PCP - General FAMILY PRACTICE 12/24/19 documented as of this encounter
--- OUTSIDE RECORDS SUMMARY | 2024-09-19 12:16 | XMS_ITS | Encounter Summary ---
Author Organization [facility] Address Pending sale to [facility] [facility]. 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 Not on file Not on franck e documented as of this encounter Plan of Treatment Upcoming Encounters Date Type Department Care Team (Late st Contact Info) Description 10/09/2024 9:30 AM INTERNAL COMMUNICATIONS MANAGER Office Visit [facility] [phone] Carlos Farris MD [address] [facility] [address] [place] [address] 11/02/2024 10:20 AM INTERNAL COMMUNICATIONS MANAGER Office Visit [facility] Family & Internal Medicine - [address] [phone] Sami Liriano DO [address] [place] [phone] documented as of this encounter Visit Diagnoses Not on filedocumented in this encounter Additional Health Concerns Assessment Noted Time PHQ-9 Depression Total Score: 0 10/11/19 22 10:50 AM INTERNAL COMMUNICATIONS MANAGER documented as of this encounter Care Teams Claims Manager Relationship Specialty Start Date End Date Sami Liriano DO [address] [place] [phone] PCP - General FAMILY PRACTICE 12/24/19 documented as of this encounter
--- OUTSIDE RECORDS SUMMARY | 2024-09-19 12:16 | XMS_ITS | Encounter Summary ---
Author Organization [facility] Address [facility]. [place], [place] [address] [place] [address] Care Team Providers Care Pharmacy Operations Coordinator Name Role Phone Sami Gimenez DO Primary Care Provider + Reason for Referral * Consultation/Treatment (Routine) - Closed Specialty Diagnoses / Procedures Referred By Shereen benton Referred To Contact GASTROENTEROLOGY Diagnoses Screening for malignant neoplasm of colon Sami Gimenez DO [address] [place] [address] Phone: tel: fax: [facility] - [address], [address] [place] [address] Phone: tel: fax: Referral ID Status Reason Start Date Expiration Date V isits Requested Visits Authorized [id number] Closed Consultation 09/17/2023 03/29/2024 6 6 Reason for Visit * Reason Comments Diabetes 6 month follow up Xray/ultrasound Order CXR Encounter Details Date Type Department Care Team (Late st Contact Info) Description 04/25/2023 11:40 AM CDT Office Visit [facility] Family & Internal Medicine - [place] [address] [place] [address] Sami Gimenez DO [address] [place] [address] Diabetes (6 month follow up ); Xray/ultrasound Order (CXR ) Social History Tobacco Use Types Packs/Day [...] on file Legal Sex Female 12:43 PM HOMICIDE SQUAD COMMANDING OFFICER Gender Identity Female 12/18/2021 6:31 AM CDT Sexual Orientation Straight 01/15/2022 6: 11 AM CDT 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 file Not on franck e documented as of this encounter Last Filed Vital Signs Vital Sign Reading Time Taken Comments Blood Pressure 122/70 04/25/2023 11:58 AM CDT Pulse 70 04/25/2023 11:58 AM CDT Temperature 36.3 ??C (97.4 ??F) 04/25/2023 1 1:58 AM CDT Respiratory Rate 16 04/25/2023 11:5 8 AM CDT Oxygen Saturation 97% 04/25/2023 11: 58 AM CDT Inhaled Oxygen Concentration - - Weight 109.2 kg (240 lb 12.8 oz) 2022 11:58 AM CDT Height 152.4 cm (5') 04/25/2023 11:58 AM CDT Body Mass Index 47.03 04/25/2023 11:58 AM CDT documented in this encounter Progress Notes * Sami Gimenez DO - 04/25/2023 11:40 AM CDT Images from the original note were not included. GENERAL OFFICE VISIT Encounter Date: 04/25/2023 Chief Complaint: 68-year-old female presents for Diabetes (6 month follow up ) and Xray/ultrasound Order (CXR ) HPI: Pt presents for f/u on bronchitis. Pt was started on prednisone and cefdinir. She feels she is about 75% better. She is finishing the medications at this time. Patient has Type 2 Diabetes. Patient has had diabetes for less than 1 year. Medications include metformin ER. BS logs range: 100-120. Pt's last eye exam was 04/26/22. Patient's weight has gone down 7 lbs. Current symptoms include none. Patient presents for follow-up on essential hypertension. Patient has had hypertension for multipleyears. Current medications include Lisinopril and Chlorthalidone. Patient's blood pressure is well controlled at this time. No side effects noted from medications. Concurrent conditions include Diabetes Mellitus, Hyperlipidemia and Chronic Kidney Disease 3a. Patient presents for follow-up on HLD. Patient has had HLD for multiple years. Current medications include atorvastatin. Current side effects include none. Patient does not need labs drawn today. Pt is due for colonoscopy; will refer today. Review of Systems Constitutional: Negative for fever and unexpected weight change. HENT: See HPI Respiratory: See HPI Cardiovascular: Negative for chest pain. Gastrointestinal: Negative for abdominal pain. Musculoskeletal: Negative for myalgias. Skin: Negative for rash. Psychiatric/Behavioral: Negative for depression. Patient Active Problem List Diagnosis Alopecia Hypertension associated with type 2 diabetes mellitus (HHS/HCC) ([facility]) Arthritis of left knee GERD (gastroesophageal reflux disease) Overactive bladder Depression Pharyngoesophageal dysphagia Positive colorectal cancer screening using Cologuard test ALLYSON positive Stage 3a chronic kidney disease ([facility]) Severe obstructive sleep apnea Hyperlipidemia associated with type 2 diabetes mellitus (HHS/HCC) ([facility]) BMI 45.0-49.9, adult ([facility]) Current mild episode of major depressive disorder without prior episode ([facility]) Generalized osteoarthritis of multiple sites Inflammatory arthritis Urinary tract infection Morbid (severe) obesity due to excess calories ([facility]) Past Medical History: Diagnosis Date Arthritis Arthritis of left knee 11/08/2019 Depression GERD (gastroesophageal reflux disease) Hypertension Overactive bladder Past Surgical History: Procedure Laterality Date ANKLE SURGERY left SECTION COLONOSCOPY N/A 04/27/2020 COLONOSCOPY WITH BIOPSY X 3 performed by Joel Keenan MD at [facility] OR [place] HERNIA REPAIR SHOULDER SURG PROC UNLISTED right [...] level: Not on file Occupational History 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 Comments: Breath sounds improved from last OV Abdominal: Palpations: Abdomen is [...] Jolly was seen today for diabetes and xray/ultrasound order. Diagnoses and all orders for this visit: Bronchitis - XR CHEST PA+LAT; Future Type 2 diabetes mellitus without complication, without long-term current use of insulin (HHS/HCC) ([facility]) - HEMOGLOBIN, GLYCOSYLATED - COLLECT.CAPILLARY (FNGR,HEEL,EAR) Encounter for screening mammogram for breast cancer - SCREENING W SHIN HAN DIGI; Future Screening for malignant neoplasm of colon - Ambulatory referral to Gastroenterology ( [place]) Hyperlipidemia associated with type 2 diabetes mellitus (HHS/HCC) ([facility]) Hypertension associated with type 2 diabetes mellitus (HHS/HCC) ([facility]) Stage 3a chronic kidney disease ([facility]) Discussion/Summary: Continue chronic medications as prescribed; stable today. Continue weight loss. Complete abx/prednisone as prescribed; improved from last OV. Will order CXR to rule out other pathology. Will refer for colonoscopy and mammogram today. Will have pt f/u in 3 months or sooner if needed. Pt v/u. Sami Gimenez DO documented in this encounter Plan of Treatment Upcoming Encounters Date Type Department Care Team (Late st Contact Info) Description 10/09/2024 9:30 AM HOMICIDE SQUAD COMMANDING OFFICER Office Visit [facility] [phone] Carlos Farris MD [address] [facility] [address] [facility] [place] [address] 11/02/2024 10:20 AM HOMICIDE SQUAD COMMANDING OFFICER Office Visit [facility] Family & Internal Medicine - [address] [phone] Sami Gimenez DO [address] [place] [address] Scheduled Orders Name Type Priority Associated Diagnoses Orde r Schedule HEMOGLOBIN, GLYCOSYLATED Lab Routine Type 2 diabetes mellitus without complication, without long-term current use of insulin ([facility]) Ordered: 04/25/2023 Scheduled Referrals Name Type Priority Associated Diagnoses Orde r Schedule Ambulatory referral to Gastroenterology ([facility] [place]) Referral Routine Screening for malignant neoplasm of colon Ordered: 04/25/2023 documented as of this encounter Procedures Procedure Name Priority Date/Time Associated Diagnosis Comments COLLECT.CAPILLARY (FNGR,HEEL,EAR) Routine 04/25/2023 11:47 AM CDT Type 2 diabetes mellitus without complication, without long-term current use of insulin ([facility]) documented in this encounter Results * XR CHEST PA+LAT (04/25/2023 12:29 PM CDT) Anatomical Region Laterality Modality Chest Radiographic Jody ging 04/25/2023 1:09 PM CDT Impressions 04/25/2023 1:10 PM CDT IMPRESSION: No radiographic evidence of active chest disease. Ordered By: SAMI GIMENEZ Interpreted By: Favian Day MD, 04/25/2023 1:09 PM Narrative 04/25/2023 1:10 PM CDT Examination: XR CHEST PA+LAT Exam time: 04/25/2023 12:20 PM Clinical history: Shortness of breath. Cough for 2 weeks. Comparison: 10/19/2021 PA and lateral chest Technique: Upright PA and lateral views Findings: Cardiac silhouette and pulmonary vasculature are within normal limits. Lungs appear clear. No evidence of pleural effusion. No evidence of significant bronchial wall thickening. Overall, no radiographic evidence of active chest disease. Procedure Note Favian Day MD - 04/25/2023 Examination: XR CHEST PA+LAT Exam time: 04/25/2023 12:20 PM Clinical history: Shortness of breath. Cough for 2 weeks. Comparison: 10/19/2021 PA and lateral chest Technique: Upright PA and lateral views Findings: Cardiac silhouette and pulmonary vasculature are within normallimits. Lungs appear clear. No evidence of pleural effusion. No evidenceof significant bronchial wall thickening. Overall, no radiographicevidence of active chest disease. IMPRESSION: No radiographic evidence of active chest disease. Ordered By: SAMI GIMENEZ Interpreted By: Favian Day MD, 04/25/2023 1:09 PM Sami Gimenez DO GENERAL IMAGING Final Re sult documented in this encounter Visit Diagnoses Diagnosis Bronchitis- Primary Bronchitis, not specified as acute or chronic Type 2 diabetes mellitus without complication, without long-term current use of insulin ([facility]) Encounter for screening mammogram for breast cancer Screening for malignant neoplasm of colon Hyperlipidemia associated with type 2 diabetes mellitus ([facility]) Hypertension associated with type 2 diabetes mellitus ([facility]) Stage 3a chronic kidney disease ([facility]) documented in this encounter Additional Health Concerns Assessment Noted Time PHQ-9 Depression Total Score: 0 10/11/19 22 10:50 AM HOMICIDE SQUAD COMMANDING OFFICER documented as of this encounter Care Teams Pharmacy Operations Coordinator Relationship Specialty Start Date End Date Sami Gimenez DO [address] [place] [address] PCP - General FAMILY PRACTICE 12/24/19 documented as of this encounter
--- OUTSIDE RECORDS SUMMARY | 2024-09-19 12:16 | XMS_ITS | Encounter Summary ---
Author Organization [facility] Address [address] [place] [address]. [place], [place] [address] [place] [address] Care Team Providers Care Rn Community Health Name Role Phone Sami Liriano DO Primary Care Provider + Reason for Referral * Consultation (Urgent) - Closed Specialty Diagnoses / Procedures Referred By Shereen t Referred To Contact PULMONARY DISEASE Diagnoses Obstructive sleep apnea Procedures OFFICE/OUTPT VISIT,NEW,LEVL III OFFICE/OUTPT VISIT,NEW,LEVL IV OFFICE/OUTPT VISIT,NEW,LEVL V OFFICE/OUTPT VISIT,EST,LEVL III OFFICE/OUTPT VISIT,EST,LEVL IV OFFICE/OUTPT VISIT,EST,LEVL V Sami Liriano DO [address] [place] [address] Phone: tel: fax: Sami Pinto MD [address] [place] [address] Phone: tel: fax: Referral ID Status Reason Start Date Expiration Date V isits Requested Visits Authorized [id number] Closed Specialty Services 02/26/2023 03/28/2024 1 1 Scheduling Instructions Pt. 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 No / Unsure 02/04/2023 8:48 AM CDT documented as of this encounter Progress Notes * Maria Elena Jackson MA - 02/26/2023 2:40 PM CDT ----- Message from Evelin Lakhani sent at 02/26/2023 1:41 PM CDT ----- Dr Millie Alvarez will be seeing Jolly on 03/08 and we are needing her Essence referral.Her diagnosiscode is G47.33. Please send me a message when completed. Jenn Nolan documented in this encounter Plan of Treatment Upcoming Encounters Date Type Department Care Team (Late st Contact Info) Description 10/09/2024 9:30 AM VEGETABLE FARMWORKER Office Visit [facility]-[address] [phone] Carlos Farris MD [address] [facility] [address] [place] [address] 11/02/2024 10:20 AM VEGETABLE FARMWORKER Office Visit [facility] Family & Internal Medicine - [address] [phone] Sami Liriano DO [address] [place] [address] Scheduled Referrals Name Type Priority Associated Diagnoses Orde r Schedule Ambulatory referral to Pulmonology (OTHER) Referral Routine Obstructive sleep apnea Ordered: 02/26/2023 documented as of this encounter Visit Diagnoses Diagnosis Obstructive sleep apnea- Primary Obstructive sleep apnea (adult) (pediatric) documented in this encounter Additional Health Concerns Assessment Noted Time PHQ-9 Depression Total Score: 0 10/11/19 10:50 AM VEGETABLE FARMWORKER documented as of this encounter Care Teams Rn Community Health Relationship Specialty Start Date End Date Sami Liriano DO [address] [place] [address] PCP - General FAMILY PRACTICE 12/24/19 documented as of this encounter
--- OUTSIDE RECORDS SUMMARY | 2024-09-19 12:16 | XMS_ITS | Encounter Summary ---
Author Organization [facility] Address [facility]. 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 No / Unsure 12/19/2022 2:23 PM CDT documented as of this encounter Plan of Treatment Upcoming Encounters Date Type Department Care Team (Late st Contact Info) Description 10/09/2024 9:30 AM BIOLOGY FACULTY MEMBER Office Visit [facility]-[address] [phone] Carlos Farris MD [address] [facility] [address] [place] [address] 11/02/2024 10:20 AM BIOLOGY FACULTY MEMBER Office Visit [facility] Family & Internal Medicine - [address] [phone] Sami Liriano DO [address] [place] [address] documented as of this encounter Visit Diagnoses Not on filedocumented in this encounter Additional Health Concerns Assessment Noted Time PHQ-9 Depression Total Score: 0 10/11/19 22 10:50 AM BIOLOGY FACULTY MEMBER documented as of this encounter Care Teams Clay Structure Builder And Servicer Relationship Specialty Start Date End Date Sami Liriano DO [address] [place] [address] PCP - General FAMILY PRACTICE 12/24/19 documented as of this encounter
--- OUTSIDE RECORDS SUMMARY | 2024-09-19 12:16 | XMS_ITS | Encounter Summary ---
Author Organization [facility] Address [facility] 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 No / Unsure 02/04/2023 8:48 AM CDT documented as of this encounter Plan of Treatment Upcoming Encounters Date Type Department Care Team (Late st Contact Info) Description 10/09/2024 9:30 AM PROCESSING TECHNICIAN Office Visit [facility]-[address] [phone] Carlos Farris MD [address] [facility] [address] [place] [address] 11/02/2024 10:20 AM PROCESSING TECHNICIAN Office Visit [facility] Family & Internal Medicine - [address] [phone] Sami Liriano DO [address] [place] [address] documented as of this encounter Visit Diagnoses Not on filedocumented in this encounter Additional Health Concerns Assessment Noted Time PHQ-9 Depression Total Score: 0 10/11/19 22 10:50 AM PROCESSING TECHNICIAN documented as of this encounter Care Teams Shactor Relationship Specialty Start Date End Date Sami Liriano DO [address] [place] [address] PCP - General FAMILY PRACTICE 12/24/19 documented as of this encounter
--- OUTSIDE RECORDS SUMMARY | 2024-09-19 12:16 | XMS_ITS | Encounter Summary ---
Author Organization [facility] Address [address] [place] [address]. [place], [place] [address] [place] [address] Care Team Providers Care Electronics Tech Name Role Phone Sami Liriano DO Primary Care Provider + Reason for Visit * Reason Onset Date Comments Results 12/04/2022 Encounter Details Date Type Department Care Team (Late st Contact Info) Description 12/04/2022 Telephone [facility] Family & Internal Medicine [place] [phone] [place] [phone] Sami Liriano DO [address] [place] [address] Results Social History Tobacco Use Types [...] Drinking Never 10/02 PHQ-2 Answer Date Recorded PHQ-2 Score - If the patient scores above 3, please move on to questions 3-9 0 10/11/2021 Comments No Sex and Gender Information Value Date Recorded Sex Assigned at Not on file Legal Sex Female 12:43 PM DIRECTOR OF BANDS Gender Identity Female 12/18/2021 6:31 AM CDT Sexual Orientation Straight 01/15/2022 6: 11 AM CDT 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 The patient v/u and did not have questions at this time. ----- Message from Sami Liriano DO sent at 12/02/2022 1:11 PM DIRECTOR OF BANDS ----- Pt is low in Vitamin D. Recommend 2000 IU supplementation daily. Pt's WBC count and Hgb are slightly off with other labs being WNL; would repeat at next OV to ensure resolution. Other labs are stableand can be repeated in 1 year. CTOR OF BANDS CTOR OF BANDS documented in this encounter Plan of Treatment Upcoming Encounters Date Type Department Care Team (Late st Contact Info) Description 10/09/2024 9:30 AM DIRECTOR OF BANDS Office Visit [facility]-[address] [phone] Carlos Farris MD [address] [facility] [address] [place] [address] 11/02/2024 10:20 AM DIRECTOR OF BANDS Office Visit [facility] Family & Internal Medicine - [address] [phone] Sami Liriano DO [address] [place] [address] documented as of this encounter Visit Diagnoses Not on filedocumented in this encounter Additional Health Concerns Assessment Noted Time PHQ-9 Depression Total Score: 0 10/11/19 10:50 AM DIRECTOR OF BANDS documented as of this encounter Care Teams Electronics Tech Relationship Specialty Start Date End Date Sami Liriano DO [address] [place] [address] PCP - General FAMILY PRACTICE 12/24/19 documented as of this encounter
--- OUTSIDE RECORDS SUMMARY | 2024-09-19 12:16 | XMS_ITS | Encounter Summary ---
Author Organization [facility] Address [facility]. [place], [place] [address] [place] [id number] Care Team Providers Care Zoology Technical Officer Name Role Phone Sami Liriano DO Primary Care Provider + Reason for Referral * Imaging (Routine) - Closed Specialty Diagnoses / Procedures Referred By Shereen benton Referred To Contact RADIOLOGY Diagnoses Arthritis of knee Procedures OUS GUIDE NEEDLE PLCMT ORTHO Manuelito Marcelino PA [address] [place] [address] Phone: tel: fax: Referral ID Status Reason Start Date Expiration Date Visits Re quested Visits Authorized [id number] Closed 12/19/2022 01/19/2024 1 1 Reason for Visit * Reason Comments New Patient Lt knee * Consultation (Routine) - Closed Specialty Diagnoses / Procedures Referred By Shereen benton Referred To Contact ORTHOPAEDICS Diagnoses Left knee pain Procedures OFFICE/OUTPT VISIT,NEW,LEVL III OFFICE/OUTPT VISIT,NEW,LEVL IV OFFICE/OUTPT VISIT,NEW,LEVL V OFFICE/OUTPT VISIT,EST,LEVL III OFFICE/OUTPT VISIT,EST,LEVL IV OFFICE/OUTPT VISIT,EST,LEVL V Sami Liriano DO [address] [place] [address] Phone: tel: fax: Manuelito Marcelino PA [address] [place] [address] Phone: tel: fax: Referral ID Status Reason Start Date Expiration Date V isits Requested Visits Authorized [id number] Closed Specialty Services 12/14/2022 07/30/2023 6 6 Encounter Details Date Type Department Care Team (Late st Contact Info) Description 12/19/2022 3:00 PM CDT Office Visit [facility] Orthopedic & Sports Medicine - [place] [address] [place] [address] Manuelito Marcelino PA [address] [place] [address] New Patient (Lt knee) Social History Tobacco Use Types Packs/Day Years Used Date Smoking Tobacco: Former Cigarettes 1 1976 Smokeless Tobacco: Never Tobacco Cessation:Counseling Given: No [...] on file Legal Sex Female 12:43 PM DETECTIVE Gender Identity Female 12/18/2021 6:31 AM CDT Sexual Orientation Straight 01/15/2022 6: 11 AM CDT 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 No / Unsure 12/19/2022 2:23 PM CDT documented as of this encounter Last Filed Vital Signs Vital Sign Reading Time Taken Comments Blood Pressure 147/64 12/19/2022 2:41 PM CDT Pulse 69 12/19/2022 2:39 PM CDT Temperature 36.9 ??C (98.5 ??F) 12/19/2022 2:39 PM CD T Respiratory Rate - - Oxygen Saturation 99% 12/19/2022 2:39 PM CDT Inhaled Oxygen Concentration - - Weight 112 kg (247 lb) 12/19/2022 2:39 PM CDT Height 152.4 cm (5') 12/19/2022 2:39 PM CDT Body Mass Index 48.24 12/19/2022 2:39 PM CDT documented in this encounter Progress Notes * KEVIN Kat - 12/19/2022 3:00 PM CDT Images from the original note were not included. Office Visit Reason for Visit: New Patient (Lt knee) History of Present Illness: ODIN Jolly Sargent presents for left knee pain. She is an extremely pleasant 67-year-old female. Shepresents today as follow-up from seeing Ree Granados few years ago. She tells me that since that time her left knee is steadily gotten worse. She has had increasing problems with her knee for a long time. She hurts predominantly medially in her knee. She says that long ambulation bothers her knee. She says that stairs bother her knee. She says that she has not able to do most of the activities that she would like to do because of her extensive knee pain. 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 She has had injections in the past which have 1 lasted a few days. Her BMI today is 48.24. She has worked on weight loss in the past though none of this has lasted. She has a medical history significant for GERD and hypertension. She does not smoke. She is most interested in a knee replacement today. Assessment: Left knee osteoarthritis BMI 48.24 Recommendations and Plan: New Patient (Lt knee) We discussed her x-ray images. We talked about treatment options for knee arthritis. We discussed her BMI as a barrier to knee replacement. High BMI predisposes her to multiple complications after knee replacement including periprosthetic joint infection. A BMI of under 40 is what is currently recom mended. We talked about that weight goal today. She inquired about corticosteroid injections. I am in agreement and we proceeded with this. F/u as needed. I injected the left knee through a superolateral approach today. Patient was positioned supine. 3 cc of 2% lidocaine and 40 mg of Kenalog was used. A 25- gauge needle was used. The ultrasound was usedfor imaging and guidance into the knee joint. Sterile technique was used. All images today were captured of the left knee. They have been counseled to look out for signs and symptoms of infection such as as significant pain, swelling, redness, fever over 100, and difficulty moving the affected area. They know to call if they develop these problems. ROS: ROS PE: Physical Exam Constitutional: she appears well-developed and well-nourished. HENT: Head: Normocephalic and atraumatic Eyes: EOM are normal. Neck: Neck Supple Skin: Warm and dry Pulmonary/Chest: Effort normal. No respiratory distress. Neurological: she is alert and attentive. Speech is clear, coherent, and not pressured. Psychiatric: she has a normal mood and affect. Ortho: They walk with a antalgic gait. She uses a cane. She is tender palpation at the medial aspect of her left knee joint line. Also somewhat tender at the right knee medial joint line. Her knee range of motion on the left side is full extension to about 100 degrees of flexion somewhat limited by pain. Her right knee range of motion is from 0 to extension to about 110-120 flexion that is somewhat limited by body habitus. She has 4 out of 5 strength knee flexion extension bilaterally. Ankles dorsiflexion and plantarflexion are intact distally. Imaging: OUS GUIDE NEEDLE PLCMT ORTHO This report does not contain a radiologist's interpretation. Please review associated procedure and/or operative report. Medications: Outpatient Medications Marked as Taking for the 12/19/22 encounter (Office Visit) with KEVIN Kat Medication Sig Dispense Refill ??? acetaminophen 325 MG tablet Take 1 tablet (325 mg total) by mouth. Take 2 in the am and 2 tabs in the pm and 1 PRN ??? atorvastatin (LIPITOR) 10 MG tablet TAKE 1 TABLET BY MOUTH EVERY DAY AT NIGHT 90 tablet 0 ??? Blood Glucose Monitoring Suppl (ONE TOUCH ULTRA 2) w/Device Kit Check blood sugar once daily Kassi when fasting 1 kit 0 ??? buPROPion XL (WELLBUTRIN XL) 150 MG 24 hr tablet Take 1 tablet daily for one week, then take 2 tablets daily 60 tablet 0 ??? escitalopram (LEXAPRO) 20 MG tablet Take 1 tablet (20 mg total) by mouth daily. 90 tablet 1 ??? Glucose Blood test strip Check blood sugar once daily in AM when fasting 100 strip 11 ??? hydroCHLOROthiazide (HYDRODIURIL) 25 MG tablet Take 1 tablet (25 mg total) by mouth every morning. 30 tablet 2 ??? Lancets (ONETOUCH ULTRASOFT) lancets Check blood sugar once daily in AM when fasting 1 each 11 ??? lisinopril (PRINIVIL) 40 MG tablet TAKE ONE TABLET BY MOUTH DAILY AT 9AM 180 tablet 1 ??? metFORMIN ER (GLUCOPHAGE-XR) 500 MG 24 hr tablet Take 1 tablet (500 mg total) by mouth daily with breakfast. 90 tablet 0 ??? OMEPRAZOLE 40 MG capsule TAKE ONE CAPSULE BY MOUTH DAILY AT 9AM 90 capsule 0 ??? oxybutynin XL (DITROPAN-XL) 5 MG 24 hr tablet TAKE 1 TABLET BY MOUTH EVERY DAY 30 tablet 0 ??? potassium chloride CR (K-TAB) 10 MEQ Tab CR tablet TAKE ONE TABLET DAILY Patient must be seen for further refills 30 tablet 0 ??? traMADol (ULTRAM) 50 MG tablet Take 1 tablet (50 mg total) by mouth every 6 (six) hours as needed for Pain. Indications: Chronic Pain 60 tablet 0 Allergies: Allergies Allergen Reactions ??? Penicillins Rash ??? Sulfa Antibiotics Rash Medical History: Past Medical History: Diagnosis Date ??? Arthritis ??? Arthritis of left knee 11/08/2019 ??? Depression ??? GERD (gastroesophageal reflux disease) ??? Hypertension ??? Overactive bladder Surgical History: Past Surgical History: Procedure Laterality Date ??? ANKLE SURGERY left ??? SECTION ??? COLONOSCOPY N/A 04/27/2020 COLONOSCOPY WITH BIOPSY X 3 performed by Joel Keenan MD at [facility] OR ??? EGD ??? HERNIA REPAIR ??? SHOULDER SURG PROC UNLISTED right ??? TONSILLECTOMY ??? TOTAL KNEE ARTHROPLASTY right Social History: Social History Tobacco Use ??? Smoking status: Former Packs/day: 1.00 Years: 12.00 Pack years: 12.00 Types: Cigarettes Quit date: 1976 Years since quittin.2 ??? Smokeless tobacco: Never Vaping Use ??? Vaping Use: Never used Substance Use Topics ??? Alcohol use: Yes Comment: 2 cocktails on some Sundays ??? Drug use: Never Family History: Family History Problem Relation Name Age of Onset ??? Alzheimers Mother ??? Heart Attack Father ??? Heart Disease Father ??? Alzheimers Father ??? Alzheimers Maternal Grandmother ??? Heart Disease Paternal Grandfather VITALS: Vitals: 12/19/22 1439 12/19/22 1441 Patient Position: Sitting Sitting BP Location: Right arm Right arm Cuff size: Adult Large Adult Large BP: (!) 148/75 (!) 147/64 Pulse: 69 Estimated BMI Today: Estimated body mass index is 48.24 kg/m?? as calculated from the following: Height as of this encounter: 5' (1.524 m). Weight as of this encounter: 112 kg (247 lb). Portions of this note were dictated using [employer] speech recognition software. Occasional wrong wordor sound-alike substitutions may have occurred due to the inherent limitations of voice recognition software. Please read the chart carefully and recognize, using context, where the substitutions may have occurred. Procedures KEVIN PATTON 12/19/2022 documented in this encounter Plan of Treatment Upcoming Encounters Date Type Department Care Team (Late st Contact Info) Description 10/09/2024 9:30 AM DETECTIVE Office Visit [facility] [phone] Carlos Farris MD [address] [facility] [address] [place] [address] 11/02/2024 10:20 AM DETECTIVE Office Visit [facility] Medical Group Family & Internal Medicine - [address] [phone] Sami Liriano DO [address] [place] [address] Scheduled Orders Name Type Priority Associated Diagnoses Orde r Schedule ARTHROCENTESIS MAJOR JOINT W/ ULTRASOUND GUIDANCE Procedures Routine Arthritis of knee Ordered: 12/21/2022 documented as of this encounter Results * OUS GUIDE NEEDLE PLCMT ORTHO (12/19/2022 3:15 PM CDT) Anatomical Region Laterality Modality Ultrasound 12/19/2022 3:13 PM CDT Narrative 12/19/2022 3:13 PM CDT This report does not contain a radiologist's interpretation. Please review associated procedure and/or operative report. Procedure Note , Generic Conversion, MD - 12/19/2022 This report does not contain a radiologist's interpretation. Please review associated procedure and/or operative report. Manuelito BROWN ULTRASOUND Final Result documented in this encounter Visit Diagnoses Diagnosis Arthritis of knee- Primary Unspecified arthropathy, lower leg documented in this encounter Administered Medications Inactive Administered Medications - up to 3 most recent administrations Medication Order MAR Action Action Date Dose Rate Site lidocaine (XYLOCAINE) 2 % injection 3 mL 3 mL, Intra-articular, Once, 1 dose, On Sat12/21/22 at 0815Indications:Arthritis of knee Given 12/21/2022 7:57 AM CDT 3 mLs Left Knee triamcinolone acetonide (KENALOG-40) injection 40 mg 40 mg, Intra-articular, Once, 1 dose, On Sat12/21/22 at 0815, Stephenke WellIndications:Arthritis of knee Given 12/21/2022 7:57 AM CDT 40 mg Left Knee documented in this encounter Additional Health Concerns Assessment Noted Time PHQ-9 Depression Total Score: 0 10/11/19 22 10:50 AM DETECTIVE documented as of this encounter Care Teams Zoology Technical Officer Relationship Specialty Start Date End Date Sami Liriano DO [address] [place] [address] PCP - General FAMILY PRACTICE 12/24/19 documented as of this encounter
--- OUTSIDE RECORDS SUMMARY | 2024-09-19 12:16 | XMS_ITS | Encounter Summary ---
Author Organization [facility] Address [address] [place] [address]. [place], [place] [address] [place] [address] Care Team Providers Care Drafter Geophysical Name Role Phone Sami Liriano DO Primary Care Provider + Reason for Visit * Reason Onset Date Comments Knee Pain 03/19/2023 Encounter Details Date Type Department Care Team (Late st Contact Info) Description 03/19/2023 Telephone [facility] Medical [facility] Family & Internal Medicine [facility] [address] [place] [phone] Sami Liriano DO [facility] [place] [address] Knee Pain Social History Tobacco Use Types Packs/Day Years [...] on file 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 * Martha Carrion MA - 03/22/2023 12:44 PM CDT Patient informed of options. She states her last knee injection was less than 3 months ago, so she is unable to do yet. She also declined the prednisone therapy because she has finally gotten her blood sugars under control and would rather deal with the pain than have her glucose uncontrolled. Patient thank you for the suggestions. * Sami Liriano DO - 03/20/2023 3:57 PM CDT Pt has seen orthopedics for this previously and had an injection; if they could get her in sooner to consider repeating that, she could go down that route. I could try sending out an oral steroid, but she will have to watch her blood sugars closely if we do that. Med pended if she wishes to go thatroute. * Brooke Lema MA - 03/20/2023 3:43 PM CDT Please advise if you would like to prescribe medication or evaluate in office. * Iris Nicole - 03/19/2023 1:21 PM CDT Toyin called in, she needs a knee replacement but hasn't been scheduled because she needs to lose weight. She has been taking Tylenol and when it gets bad she takes Toradol. She woke up today in a lot of pain and was in tears. She wants to know if there is anything stronger she can take? documented in this encounter Plan of Treatment Upcoming Encounters Date Type Department Care Team (Late st Contact Info) Description 10/09/2024 9:30 AM FLIGHT TEST SHOP MECHANIC Office Visit [facility] [phone] Carlos Farris MD [address] [facility] [address] [facility] [place] [address] 11/02/2024 10:20 AM FLIGHT TEST SHOP MECHANIC Office Visit [facility] Medical Group Family & Internal Medicine - [address] [phone] Sami Liriano DO [address] [place] [address] documented as of this encounter Visit Diagnoses Not on filedocumented in this encounter Additional Health Concerns Assessment Noted Time PHQ-9 Depression Total Score: 0 10/11/19 22 10:50 AM FLIGHT TEST SHOP MECHANIC documented as of this encounter Care Teams Drafter Geophysical Relationship Specialty Start Date End Date Sami Liriano DO [address] [place] [phone] PCP - General FAMILY PRACTICE 12/24/19 documented as of this encounter
--- OUTSIDE RECORDS SUMMARY | 2024-09-19 12:16 | XMS_ITS | Encounter Summary ---
Author Organization [facility] Address [facility]. [place], [place] [address] [place] [address] Care Team Providers Care Bioinformatics Support Specialist Name Role Phone Sami Liriano Primary Care Provider + Reason for Visit * Reason Comments Allergies The patient states s he has mold in her house and they are repairing the house and it is making her sick. Encounter Details Date Type Department Care Team (Late st Contact Info) Description 04/10/2023 11:00 AM CDT Telemedicine [facility] Medical [facility] Family & Internal Medicine - [id number] [place] [address] Koki Wilson FNP [address] [place] [address] Allergies (The patient states she has mold in her house and they are repairing the house and it is making her sick. 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 Not on file Not on franck e documented as of this encounter Patient Instructions * Patient Instructions* QUETA Houser - 04/10/2023 11:00 AM CDT Continue your current medications as prescribed and start the antibiotic as we discussed As we discussed, you can start a daily antihistamine to help with your congestion and allergy symptoms Make sure you keep yourself hydrated by drinking plenty of water Call for any questions or concerns Follow-up routinely or sooner if needed, especially if your symptoms worsen documented in this encounter Progress Notes * QUETA Houser - 04/10/2023 11:00 AM CDTSummary: URI sxs, mold exposure Office Progress Note Reason for Visit: Allergies (The patient states she has mold in her house and they are repairing the house and it is making her sick. ) I introduced and identified myself, received verbal consent from the patient to proceed with this video visit and made the patient aware that the same confidentiality and chief information security officer practices apply. The patient joined the video visit from Home. I completed the virtual visit from Home. [facility] helped with this visit MA: Brooke Lema . Total Time Spent in Minutes: 7 History of Present Illness: Toyin presents via virtual visit for URI symptoms She has had a cough, congestion, wheezing and hoarseness for over a week. She had water damage in her house and they are treating it for molds right now. She feels like this has caused an exacerbation of her symptoms. She denies any fever, body aches, or chills. She has been using Benadryl at nightto help with her symptoms and sleep. She would also like a refill of her albuterol inhaler that sheuses for her chronic shortness of breath and wheezing. Has had hx of multiple episodes of pneumonia and she does not want to get to that. ROS: Review of Systems Constitutional: Negative for chills, diaphoresis, fever, malaise/fatigue and weight loss. HENT: Positive for congestion. Negative for ear discharge, ear pain, hearing loss, nosebleeds, sinus pain, sore throat and tinnitus. Eyes: Negative for blurred vision, double vision, photophobia, pain, discharge and redness. Respiratory: Positive for cough, shortness of breath and wheezing. Negative for hemoptysis, sputum production and stridor. Cardiovascular: Negative for chest pain, palpitations, orthopnea, claudication, leg swelling and PND. Gastrointestinal: Negative for abdominal pain, blood in stool, constipation, diarrhea, heartburn, melena, nausea and vomiting. Genitourinary: Negative for dysuria, flank pain, frequency, hematuria and urgency. Musculoskeletal: Negative for back pain, falls, joint pain, myalgias and neck pain. Skin: Negative for itching and rash. Neurological: Negative for dizziness, tingling, tremors, sensory change, speech change, focal weakness, seizures, loss of consciousness, weakness and headaches. Endo/Heme/Allergies: Negative for environmental allergies and polydipsia. Does not bruise/bleed easily. Psychiatric/Behavioral: Negative for depression, hallucinations, memory loss, substance abuse and suicidal ideas. The patient is not nervous/anxious and does not have insomnia. Medications: Current Outpatient Medications on File Prior to Visit Medication Sig acetaminophen 325 MG tablet Take 1 tablet (325 mg total) by mouth. Take 2 in the am and 2 tabs in the pm and 1 PRN Blood Glucose Monitoring Suppl (ONE TOUCH ULTRA [...] AT NIGHT (Patient not taking: Reported on 04/10/2023) No current facility-administered medications on file prior to visit. Allergies: Review of patient's allergies indicates: Allergen Reactions Penicillins Rash Sulfa Antibiotics Rash Medical History: Past Medical History: Diagnosis Date Arthritis Arthritis of left knee 11/08/2019 Depression GERD (gastroesophageal reflux disease) Hypertension Overactive bladder Surgical History: Past Surgical History: Procedure Laterality Date ANKLE SURGERY left SECTION COLONOSCOPY N/A 04/27/2020 COLONOSCOPY WITH BIOPSY X 3 performed by Joel Keenan MD at [facility] OR EGD HERNIA REPAIR SHOULDER SURG PROC UNLISTED right TONSILLECTOMY TOTAL KNEE ARTHROPLASTY right Social History: Social History Socioeconomic History Marital status: Number of children: 2 Occupational History 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 Appearance: Normal appearance. She is well-developed and well-groomed. She is not ill-appearing. HENT: Head: Normocephalic and atraumatic. Right Ear: Hearing and external ear normal. Left Ear: Hearing and external ear normal. Nose: Nose normal. Mouth/Throat: Lips: [place]. Mouth: Mucous membranes are moist. Eyes: General: Lids are normal. Vision grossly intact. Gaze aligned appropriately. Extraocular Movements: Extraocular movements intact. Conjunctiva/sclera: Conjunctivae normal. Pulmonary: Effort: Pulmonary effort is normal. No tachypnea, bradypnea, accessory muscle usage, prolonged expiration, respiratory distress or retractions. Comments: Able to talk in complete, full sentences without any appearance of shortness of breath ordifficulty catching her breath Musculoskeletal: Cervical back: Full passive range of motion without pain and normal range of motion. Neurological: Mental Status: She is alert and oriented to person, place, and time. Psychiatric: Attention and Perception: Attention and perception normal. Mood and Affect: Mood and affect normal. Speech: Speech normal. Behavior: Behavior normal. Behavior is cooperative. Thought Content: Thought content normal. Cognition and Memory: Cognition and memory normal. Judgment: Judgment normal. There were no vitals filed for this visit. Diagnoses/Impression: 1. Acute non-recurrent frontal sinusitis azithromycin (ZITHROMAX Z-JAVY) 250 MG tablet 2. Wheezing albuterol sulfate HFA 108 (90 Base) MCG/ACT inhaler Recommendations and Plan: 1. Acute non-recurrent frontal sinusitis - azithromycin (ZITHROMAX Z-JAVY) 250 MG tablet; Take 2 tablets (500 mg total) by mouth daily for 1 day, THEN 1 tablet (250 mg total) daily for 4 days. Dispense: 6 tablet; Refill: 0 Advised to take medication as prescribed and to call for any issues or concerns We discussed starting a daily cknl-stc-[id number] antihistamine to help with her congestion Advised to follow-up routinely or sooner if needed, especially if her symptoms do not improve over the next 10 days, sooner for any new or worsening symptoms 2. Wheezing - albuterol sulfate HFA 108 (90 Base) MCG/ACT inhaler; Inhale 2 puffs into the lungs every 4 (four)hours as needed for Wheezing or Shortness of breath. Dispense: 18 g; Refill: 2 Advised to take medication as prescribed Routine follow-up advised, sooner if needed Orders Placed This Encounter albuterol sulfate HFA 108 (90 Base) MCG/ACT inhaler azithromycin (ZITHROMAX Z-JAVY) 250 MG tablet Cannot display discharge medications since this is not an admission. PCP: QUETA ZAYAS 04/10/2023 documented in this encounter Plan of Treatment Upcoming Encounters Date Type Department Care Team (Late st Contact Info) Description 10/09/2024 9:30 AM DRAINLAYER Office Visit [facility] [address] Carlos Farris MD [address] [facility] [address] [facility] [place] [address] 11/02/2024 10:20 AM DRAINLAYER Office Visit [facility] Medical Group Family & Internal Medicine - [address] [address] Sami Liriano DO [address] [place] [address] documented as of this encounter Visit Diagnoses Diagnosis Acute non-recurrent frontal sinusitis- Primary Wheezing documented in this encounter Additional Health Concerns Assessment Noted Time PHQ-9 Depression Total Score: 0 10/11/19 22 10:50 AM DRAINLAYER documented as of this encounter Care Teams Bioinformatics Support Specialist Relationship Specialty Start Date End Date Sami Liriano DO [address] [place] [phone] PCP - General FAMILY PRACTICE 12/24/19 documented as of this encounter
--- OUTSIDE RECORDS SUMMARY | 2024-09-19 12:16 | XMS_ITS | Encounter Summary ---
Author Organization [facility] Address [address] [place] [address]. [place], [place] [address] [place] [address] Care Team Providers Care Core Inspector Name Role Phone Sami Liriano Primary Care Provider + Reason for Visit * Reason Comments Vomiting For 4 days Fatigue 2 negative home covi d tests Encounter Details Date Type Department Care Team (Late st Contact Info) Description 02/04/2023 9:20 AM CDT Telemedicine [facility] Medical [facility] Family & Internal Medicine [id number] [place] [address] Barb Sexton APNP [facility] [place], [place] [phone] Vomiting (For 4 days ); Fatigue (2 negative home covid tests) Social History Tobacco Use Types Packs/Day Years [...] on file Legal Sex Female 12:43 PM SALES PERSON Gender Identity Female 12/18/2021 6:31 AM CDT [...] encounter Progress Notes * JENNIFER Davila - 02/04/2023 9:20 AM CDT Images from the original note were not included. [facility] FAMILY AND INTERNAL MEDICINE OFFICE VISIT I introduced and identified myself, received verbal consent from the patient to proceed with this video visit and made the patient aware that the same confidentiality and information broker practices apply. The patient joined the video visit from Home. I completed the virtual visit from Home. [facility] helped with this visit MA: Radha . Total Time Spent in Minutes: 20 Reason for Visit: Vomiting (For 4 days ) and Fatigue (2 negative home covid tests) History of Present Illness: 67 yo female presents today with c/o vomiting, diarrhea and fever that started last . Last episode of vomiting/diarrhea was Saturday evening. She developed a cough on Saturday. All of her symptoms started to improve yesterday and she states she feels much better this morning. 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 She took 2 COVID tests at home both negative. Sister liver with her and she does not have symptoms. She is needing a note to return to work. She did not feel like coming to office today for COVID testing and will take another COVID test at home today. ROS: Review of Systems Constitutional: Positive for chills, fever and malaise/fatigue. HENT: Negative for congestion, sinus pain and sore throat. Respiratory: Positive for cough. Negative for shortness of breath. Cardiovascular: Negative for chest pain and palpitations. Gastrointestinal: Positive for diarrhea, nausea and vomiting. Negative for abdominal pain. Neurological: Negative for dizziness and headaches. Medications: Current Outpatient Medications: acetaminophen 325 MG tablet, Take 1 tablet (325 mg total) by mouth. Take 2 in the am and 2 tabs in the pm and 1 PRN, Disp: , Rfl: albuterol sulfate HFA 108 (90 Base) MCG/ACT inhaler, , Disp: , Rfl: atorvastatin (LIPITOR) 10 MG tablet, TAKE 1 TABLET BY MOUTH EVERY DAY AT NIGHT, Disp: 90 tablet, Rfl: 0 benzonatate (TESSALON [...] MOUTH EVERY DAY, Disp: 180 tablet, Rfl: 0 escitalopram (LEXAPRO) 20 MG tablet, Take 1 tablet (20 mg total) by mouth daily., Disp: 90 tablet, Rfl: 1 Glucose Blood test strip, Check blood sugar once daily in AM when fasting, Disp: 100 strip, Rfl: 11 hydroCHLOROthiazide (HYDRODIURIL) 25 MG tablet, Take 1 tablet (25 mg total) by mouth every morning., Disp: 30 tablet, Rfl: 2 Lancets (ONETOUCH ULTRASOFT) lancets, Check blood sugar once daily in AM when fasting, Disp: 1 each, Rfl: 11 lisinopril (PRINIVIL) 40 MG tablet, TAKE ONE TABLET BY MOUTH DAILY AT 9AM, Disp: 180 tablet, Rfl: 1 metFORMIN ER (GLUCOPHAGE-XR) 500 MG 24 hr tablet, Take 1 tablet (500 mg total) by mouth daily with breakfast., Disp: 90 tablet, Rfl: 0 OMEPRAZOLE 40 MG capsule, TAKE ONE CAPSULE BY MOUTH DAILY AT 9AM, Disp: 90 capsule, Rfl: 0 oxybutynin XL (DITROPAN-XL) 5 MG 24 hr tablet, TAKE 1 TABLET BY MOUTH EVERY DAY, Disp: 90 tablet, Rfl: 0 potassium chloride CR (K-TAB) 10 [...] 3 performed by Joel Keenan MD at [facility] OR EGD HERNIA REPAIR SHOULDER SURG PROC UNLISTED right TONSILLECTOMY TOTAL KNEE ARTHROPLASTY right Social History: Social History Socioeconomic History Marital status: Number of children: 2 Occupational History 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 No respiratory distress. Neurological: Mental Status: She is alert and oriented to person, place, and time. There were no vitals filed for this visit. Labs: Labs Reviewed Diagnoses/Impression: 1. Acute cough benzonatate (TESSALON PERLES) 100 MG capsule 2. Viral gastroenteritis Recommendations and Plan: 1. Acute cough - benzonatate (TESSALON PERLES) 100 MG capsule; Take 1 capsule (100 mg total) by mouth 3 (three) times daily as needed for Cough. Dispense: 20 capsule; Refill: 0 Symptoms suggestive of a viral illness. Home COVID test x2 negative. Patient unable to come to the office today for COVID testing however will take a third COVID test at home today. We will let me know if results are positive. Suggested that she stay off of work today and again tomorrow with plansto return on Saturday. Advance diet as tolerated. No danger signs noted. She will let us know if symptoms do not continue to improve. 2. Viral gastroenteritis Symptoms resolved. She will advance diet as tolerated. She will let us know if symptoms change or worsen Orders Placed This Encounter benzonatate (TESSALON PERLES) 100 MG capsule Cannot display discharge medications since this is not an admission. PCP: JENNIFER Davila 02/04/2023 documented in this encounter Plan of Treatment Upcoming Encounters Date Type Department Care Team (Late st Contact Info) Description 10/09/2024 9:30 AM SALES PERSON Office Visit [facility]-[address] [phone] Carlos Farris MD [facility] [address] [place] [address] 11/02/2024 10:20 AM SALES PERSON Office Visit [facility] Family & Internal Medicine - [address] [address] Sami Liriano DO [address] [place] [address] documented as of this encounter Visit Diagnoses Diagnosis Acute cough- Primary Viral gastroenteritis Intestinal infection due to other organism, not elsewhere classified documented in this encounter Additional Health Concerns Assessment Noted Time PHQ-9 Depression Total Score: 0 10/11/19 22 10:50 AM SALES PERSON documented as of this encounter Care Teams Core Inspector Relationship Specialty Start Date End Date Sami Liriano DO [address] [place] [address] PCP - General FAMILY PRACTICE 12/24/19 documented as of this encounter
--- OUTSIDE RECORDS SUMMARY | 2024-09-19 12:16 | XMS_ITS | Encounter Summary ---
Author Organization [facility] Address [facility]. 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 Not on file Not on franck e documented as of this encounter Plan of Treatment Upcoming Encounters Date Type Department Care Team (Late st Contact Info) Description 10/09/2024 9:30 AM CARBIDE GRINDER Office Visit [facility] [phone] Carlos Farris MD [address] [facility] [address] [place] [address] 11/02/2024 10:20 AM CARBIDE GRINDER Office Visit [facility] Medical [facility] Family & Internal Medicine - [address] [phone] Sami Liriano DO [address] [place] [address] documented as of this encounter Visit Diagnoses Not on filedocumented in this encounter Additional Health Concerns Assessment Noted Time PHQ-9 Depression Total Score: 0 10/11/19 22 10:50 AM CARBIDE GRINDER documented as of this encounter Care Teams Director Software Quality Assurance Relationship Specialty Start Date End Date Sami Liriano DO [address] [place] [address] PCP - General FAMILY PRACTICE 12/24/19 documented as of this encounter
--- OUTSIDE RECORDS SUMMARY | 2024-09-19 12:16 | XMS_ITS | Encounter Summary ---
Author Organization [facility] Address [facility]. 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 Gender Identity Female 12/18/2021 6:31 AM CDT Sexual Orientation Straight 01/15/2022 6: 11 AM CDT 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 Not on file Not on franck e documented as of this encounter Plan of Treatment Upcoming Encounters Date Type Department Care Team (Late st Contact Info) Description 10/09/2024 9:30 AM OPTICAL ENGINEERING MANAGER Office Visit [facility]-[address] [address] Carlos Farris MD [address] [facility] [address] [place] [address] 11/02/2024 10:20 AM OPTICAL ENGINEERING MANAGER Office Visit [facility] Medical Group Family & Internal Medicine - [address] [address] Sami Liriano DO [address] [place] [address] documented as of this encounter Visit Diagnoses Not on filedocumented in this encounter Additional Health Concerns Infection Onset Date Last Indicated Resolved Time COVID-19 Rule Out 07/24/2023 07/24/2023 07/24/2023 11:49 AM CDT COVID-19 Rule Out 07/24/2023 07/24/2023 07/25/2023 4:22 PM CDT COVID-19 Rule Out 11/01/2023 11/01/2023 11/01/2023 2:42 PM OPTICAL ENGINEERING MANAGER Assessment Noted Time PHQ-9 Depression Total Score: 0 10/11/19 22 10:50 AM OPTICAL ENGINEERING MANAGER documented as of this encounter Care Teams Seed Analyst Relationship Specialty Start Date End Date Sami Liriano DO [address] [place] [address] PCP - General FAMILY PRACTICE 12/24/19 documented as of this encounter
--- OUTSIDE RECORDS SUMMARY | 2024-09-19 12:17 | XMS_ITS | Encounter Summary ---
Author Organization [facility] Address [address] [place] [address]. [place], [place] [address] [place] [address] Care Team Providers Care Maintenance Service Dispatcher Name Role Phone RomeoSami li Nicole AGUIAR Primary Care Provider + Encounter Details Date Type Department Care Team (Latest Contact Info) Description 06/27/2022 - 06/27/2022 11:59 PM CDT Hospital Encounter [facility] [address] [facility] [place] [place] [address] [place] [address] Koki Wilson, QUETA [address] [place] [address] Discharge Disposition: Home or Self [...] on file Legal Sex Female 12:43 PM STENOTYPE OPERATOR Gender Identity Female 12/18/2021 6:31 AM CDT Sexual Orientation Straight 01/15/2022 6: 11 AM CDT 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 Unable to assess 06/27/2022 9:19 AM CDT documented as of this encounter Medications at Time of Discharge acetaminophen 325 MG tablet Take 2 tablets (650 mg total) by mouth every 6 (six) hours as needed for Pain. albuterol sulfate HFA 108 (90 Base) MCG/ACT inhaler 10/11/2021 3 atorvastatin (LIPITOR) 10 MG tabletIndications:Mi xed hyperlipidemia Take 1 tablet (10 mg total) by mouth nightly. 90 tablet 1 06/01/2022 3 Blood Glucose Monitoring Suppl (ONE TOUCH ULTRA 2) w/Device KitIndications:Type 2 diabetes mellitus without complication, without long-term current use of insulin ([facility]) Check blood sugar once daily in AM when fasting 1 kit 08/07/2021 4 chlorthalidone (HYGROTEN) 25 MG tabletIndications:Es sential hypertension Take 1 tablet (25 mg total) by mouth daily. 90 tablet 1 04/19/2022 3 escitalopram (LEXAPRO) 20 MG tabletIndications:Cu rrent mild episode of major depressive disorder without prior episode ([facility]) Take 1 tablet (20 mg total) by mouth daily. 90 tablet 1 06/01/2022 3 Glucose Blood test stripIndications:Typ e 2 diabetes mellitus without complication, without long-term current use of insulin ([facility]) Check blood sugar once daily in AM when fasting 100 strip 11 08/07/2021 4 Lancets (ONETOUCH ULTRASOFT) lancetsIndications:T ype 2 diabetes mellitus without complication, without long-term current use of insulin ([facility]) Check blood sugar once daily in AM when fasting 1 each 11 08/07/2021 4 lisinopril (PRINIVIL) 40 MG tabletIndications:Es sential hypertension TAKE ONE TABLET BY MOUTH DAILY AT 9AM 180 tablet 1 06/01/2022 4 OMEPRAZOLE 40 MG capsuleIndications:G astroesophageal reflux disease without esophagitis TAKE ONE CAPSULE BY MOUTH DAILY AT 9AM 90 capsule 02/15/2022 3 oxybutynin XL (DITROPAN-XL) 5 MG 24 hr tabletIndications:Ov eractive bladder Take 1 tablet (5 mg total) by mouth daily. 90 tablet 1 06/05/2022 3 potassium chloride CR 10 MEQ Tab CR tabletIndications:Bi lateral lower extremity edema TAKE 2 TABLETS BY MOUTH DAILY FOR 2 WEEKS, THEN RESUME ONE TABLET DAILY 90 tablet 1 03/26/2022 2 traMADol 50 MG tabletIndications:Ch ronic Pain Take 1 tablet (50 mg total) by mouth every 6 (six) hours as needed for Pain. Indications: Chronic Pain 60 tablet 09/15/2021 2 documented as of this encounter Plan of Treatment Upcoming Encounters Date Type Department Care Team (Late st Contact Info) Description 10/09/2024 9:30 AM STENOTYPE OPERATOR Office Visit [facility] [phone] Carlos Farris MD [facility] [address] [place] [address] 11/02/2024 10:20 AM STENOTYPE OPERATOR Office Visit [facility] Family & Internal Medicine - [address] [phone] Sami Liriano DO [address] [place] [address] documented as of this encounter Visit Diagnoses Not on filedocumented in this encounter Additional Health Concerns Infection Onset Date Last Indicated Resolved Time COVID-19 Rule Out 06/27/2022 06/27/2022 06/27/2022 2:35 PM CDT Assessment Noted Time PHQ-9 Depression Total Score: 0 10/11/19 10:50 AM STENOTYPE OPERATOR documented as of this encounter Care Teams Maintenance Service Dispatcher Relationship Specialty Start Date End Date Sami Liriano DO [address] [place] [address] PCP - General FAMILY PRACTICE 12/24/19 documented as of this encounter
--- OUTSIDE RECORDS SUMMARY | 2024-09-19 12:17 | XMS_ITS | Encounter Summary ---
Author Organization [facility] Address [address] [place] [address]. [place], [place] [address] [place] [address] Care Team Providers Care Recovery Agent Name Role Phone Sami Liriano DO Primary Care Provider + Reason for Visit * Reason Onset Date Comments Strep Throat 10/26/2022 Encounter Details Date Type Department Care Team (Late st Contact Info) Description 10/26/2022 Telephone [facility] Family & Internal Medicine [facility] [address] [place] [address] Sami Liriano DO [facility] [place] [address] Strep Throat Social History Tobacco Use Types Packs/Day Years [...] on file Legal Sex Female 12:43 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 She states she is starting to feel better. This nurse explained thatif symptoms worsen, call this office back. Patient verbalized understanding. Opportunity given for all questions to be answered, no further needs voiced at this time. LL-11/01/22 ER ADJUSTER * Deb Varela RN - 10/29/2022 3:01 PM CST Patient stated that she is starting to feel better. Patient will call back to the office if anything changes. Opportunity given for all questions to be answered, no further needs voiced at this time. LL-10/29/22 ER ADJUSTER * Sami Liriano DO - 10/26/2022 9:56 AM CST Give it more time; that is an appropriate medication. ER ADJUSTER * Maria Del Rosario Bianchi - 10/26/2022 9:25 AM CST Patient went to [facility] on Saturday and is diagnosed with Strep. They prescribed her cephalexin. Patient states that she is not getting any better. She has no voice, he can not eat or drink. Does pt need to give the medication a few more days to start working or what is your recommendation. ER ADJUSTER documented in this encounter Plan of Treatment Upcoming Encounters Date Type Department Care Team (Late st Contact Info) Description 10/09/2024 9:30 AM HAMMER ADJUSTER Office Visit [facility] [phone] Carols Farris MD [address] [facility] [address] [place] [address] 11/02/2024 10:20 AM HAMMER ADJUSTER Office Visit [facility] Family & Internal Medicine - [address] [phone] Sami Liriano DO [address] [place] [address] documented as of this encounter Visit Diagnoses Not on filedocumented in this encounter Additional Health Concerns Assessment Noted Time PHQ-9 Depression Total Score: 0 10/11/19 22 10:50 AM HAMMER ADJUSTER documented as of this encounter Care Teams Recovery Agent Relationship Specialty Start Date End Date Sami Liriano DO [address] [place] [address] PCP - General FAMILY PRACTICE 12/24/19 documented as of this encounter
--- OUTSIDE RECORDS SUMMARY | 2024-09-19 12:17 | XMS_ITS | Encounter Summary ---
Author Organization [facility] Address [address] [place] [address]. [place], [place] [address] [place] [address] Care Team Providers Care Longwall Shearer Operator Name Role Phone Sami Liriano DO Primary Care Provider + Reason for Visit * Reason Onset Date Comments Question 11/30/2022 Encounter Details Date Type Department Care Team (Late st Contact Info) Description 11/30/2022 Telephone [facility] Family & Internal Medicine [address] [place] [address] Sami Liriano DO [facility] [place] [address] Question Social History Tobacco Use [...] file Legal Sex Female 12:43 PM NUCLEAR POWER REACTOR OPERATOR Gender Identity Female 12/18/2021 6:31 AM CDT Sexual Orientation Straight 01/15/2022 6: 11 AM CDT 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 No / Unsure 12/19/2022 2:23 PM CDT documented as of this encounter Progress Notes * Brooke Lema MA - 11/30/2022 11:23 AM CST Spoke with Gisell at [facility]. She informed me they have reached out to the patient 4 times and never vd call back. Called patient and LMOM informing her she can contact [place] [facility] at [phone]. Informed patient to r/c to our office with questions or concerns. EAR POWER REACTOR OPERATOR * Sami Liriano DO - 11/30/2022 11:08 AM CST Pt had a CPAP ordered around April 26, 2023 from [facility]. Pt states she has never heard back from them nor do I see any follow-up paperwork. Can we look into this further? EAR POWER REACTOR OPERATOR documented in this encounter Plan of Treatment Upcoming Encounters Date Type Department Care Team (Late st Contact Info) Description 10/09/2024 9:30 AM NUCLEAR POWER REACTOR OPERATOR Office Visit [facility] [phone] Carlos Farris MD [address] [facility] [address] [place] [address] 11/02/2024 10:20 AM NUCLEAR POWER REACTOR OPERATOR Office Visit [facility] Group Family & Internal Medicine - [address] [phone] Sami Liriano DO [address] [place] [address] documented as of this encounter Visit Diagnoses Not on filedocumented in this encounter Additional Health Concerns Assessment Noted Time PHQ-9 Depression Total Score: 0 10/11/19 22 10:50 AM NUCLEAR POWER REACTOR OPERATOR documented as of this encounter Care Teams Longwall Shearer Operator Relationship Specialty Start Date End Date Sami Liriano DO [address] [place] [address] PCP - General FAMILY PRACTICE 12/24/19 documented as of this encounter
--- OUTSIDE RECORDS SUMMARY | 2024-09-19 12:17 | XMS_ITS | Encounter Summary ---
Author Organization [facility] Address [address] [place] [address]. 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 No / Unsure 04/19/2022 7:46 AM CDT documented as of this encounter Plan of Treatment Upcoming Encounters Date Type Department Care Team (Late st Contact Info) Description 10/09/2024 9:30 AM ATTACHER Office Visit [facility] [phone] Carlos Farris MD [address] [facility] [address] [place] [address] 11/02/2024 10:20 AM ATTACHER Office Visit [facility] Family & Internal Medicine - [address] [phone] Sami Liriano DO [address] [place] [address] documented as of this encounter Procedures Procedure Name Priority Date/Time Associated Diagnosis Comments VASCULAR LAB GENERIC (SCAN ORDER) 04/30/2022 documented in this encounter Results * VASCULAR LAB GENERIC (04/30/2022) 04/30/2022 Narrative 04/30/2022 Ordered by an unspecified provider. us Documents Scanned SCANNING Final Result documented in this encounter Visit Diagnoses Not on filedocumented in this encounter Additional Health Concerns Assessment Noted Time PHQ-9 Depression Total Score: 0 10/11/19 22 10:50 AM ATTACHER documented as of this encounter Care Teams Grain Inspector Relationship Specialty Start Date End Date Sami Liriano DO [address] [place] [address] PCP - General FAMILY PRACTICE 12/24/19 documented as of this encounter
--- OUTSIDE RECORDS SUMMARY | 2024-09-19 12:17 | XMS_ITS | Encounter Summary ---
Author Organization [facility] Address [address] [place] [address]. [place], [place] [address] [place] [address] Care Team Providers Care Photolith Operator Name Role Phone Sami Liriano DO Primary Care Provider + Reason for Referral * Consultation (Routine) - Closed Specialty Diagnoses / Procedures Referred By Shereen benton Referred To Contact ORTHOPAEDICS Diagnoses Left knee pain Procedures OFFICE/OUTPT VISIT,NEW,LEVL III OFFICE/OUTPT VISIT,NEW,LEVL IV OFFICE/OUTPT VISIT,NEW,LEVL V OFFICE/OUTPT VISIT,EST,LEVL III OFFICE/OUTPT VISIT,EST,LEVL IV OFFICE/OUTPT VISIT,EST,LEVL V Sami Liriano DO [address] [place] [address] Phone: tel: fax: Manuelito Marcelino PA [address] [place] [address] Phone: tel: fax: Referral ID Status Reason Start Date Expiration Date V isits Requested Visits Authorized [id number] Closed Specialty Services 12/14/2022 07/30/2023 6 6 Scheduling Instructions Please send to [facility]. Patient would like to stay local. 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 Fax sent over to request ER records. Pt advised to get the disc imaging from [facility] BUMPER * Brooke Lema MA - 11/12/2022 10:04 AM CST Ortho referral placed for [facility] per previous task. Patient will need disc of images to take to ortho appt. Also LMOM to see which ER the patient went to to request records. BUMPER * Shabana Pendleton - 11/12/2022 9:03 AM CST She is asking about the referral that was suppose to be sent to Orthopedics. I do not see one. Please let her know, she went to ER yesterday for her knee. . BUMPER documented in this encounter Plan of Treatment Upcoming Encounters Date Type Department Care Team (Late st Contact Info) Description 10/09/2024 9:30 AM BODY BUMPER Office Visit [facility] [phone] Carlos Farris MD Three [facility] [address] [place] [address] 11/02/2024 10:20 AM BODY BUMPER Office Visit [facility] Medical Group Family & Internal Medicine - [address] [phone] Sami Liriano DO [address] [place] [address] Scheduled Referrals Name Type Priority Associated Diagnoses Orde r Schedule Ambulatory referral to Orthopedics (OTHER) Referral Routine Left knee pain Ordered: 11/12/2022 documented as of this encounter Visit Diagnoses Diagnosis Left knee pain- Primary Pain in joint, lower leg documented in this encounter Additional Health Concerns Assessment Noted Time PHQ-9 Depression Total Score: 0 10/11/19 22 10:50 AM BODY BUMPER documented as of this encounter Care Teams Photolith Operator Relationship Specialty Start Date End Date Sami Liriano DO [address] [place] [address] PCP - General FAMILY PRACTICE 12/24/19 documented as of this encounter
--- OUTSIDE RECORDS SUMMARY | 2024-09-19 12:17 | XMS_ITS | Encounter Summary ---
Author Organization [facility] Address [address] [facility]. [place], [place] [address] [place] [address] Care Team Providers Care Analysis Evaluator Name Role Phone Sami Liriano Primary Care Provider + Reason for Visit * Reason Comments URI Possible sinus infec tion x2 days. Patient states she had double pneumonia in September and january. Sx include drainage, dry cough, sinus cavitiy pain. Patient tested at home for covid and both were negative. The patient her upper teeth hurt as well Encounter Details Date Type Department Care Team (Late st Contact Info) Description 06/27/2022 12:20 PM CDT Telemedicine [facility] Medical Group Family & Internal Medicine - [address] [phone] Koki Wilson FNP [address] [place] [address] [phone] URI (Possible sinus infection x2 days. Patient states she had double pneumonia in September and january. Sx include drainage, dry cough, sinus cavitiy pain. Patient tested at home for covid and both were negative. 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 Unable to assess 06/27/2022 9:19 AM CDT documented as of this encounter Patient Instructions * Patient Instructions* QUETA Houser - 06/27/2022 12:20 PM CDT Come up to the office for influenza and COVID testing as we discussed. Continue to use your nwyk-emo-yiueogs medication as needed for symptom relief Increase your water intake and rest Maintain social isolation/quarantine for 5 days after your symptoms started, as we discussed Call for any further issues or concerns Follow-up in 1 week if your symptoms do not improve, sooner for any new or worsening symptoms documented in this encounter Progress Notes * QUETA Houser - 06/27/2022 12:20 PM CDTSummary: sinus symptoms Office Progress Note Reason for Visit: URI (Possible sinus infection x2 days. Patient states she had double pneumonia in September and january. Sx include drainage, dry cough, sinus cavitiy pain. Patient tested at home for covid and both were negative. The patient her upper teeth hurt as well ) I introduced and identified myself, received verbal consent from the patient to proceed with this video visit and made the patient aware that the same confidentiality and information systems security analyst practices apply. The patient joined the video visit from Home. I completed the virtual visit from Home. [facility] helped with this visit MA: pramod deng. Total Time Spent in Minutes: 10 History of Present Illness: Toyin presents via virtual visit for c/o URI symptoms. Has had non productive cough, sinus drainage, sinus pain, congestion, teeth pain for the last couple days. She did take two at home covid test that were negative, with the last one being done today. 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 She did not have any covid vaccines. ROS: Review of Systems Constitutional: Negative for chills, diaphoresis, fever, malaise/fatigue and weight loss. HENT: Positive for congestion and sinus pain. Negative for ear discharge, ear pain, hearing loss, nosebleeds, sore throat and tinnitus. Eyes: Negative for blurred vision, double vision, photophobia, pain, discharge and redness. Respiratory: Positive for cough. Negative for hemoptysis, sputum production, shortness of breath, wheezing and stridor. Cardiovascular: Negative for chest pain, [...] on File Prior to Visit Medication Sig ??? acetaminophen 325 MG tablet Take 325 mg by mouth. Take 2 in the am and 2 tabs in the pm and 1 PRN ??? albuterol sulfate HFA 108 (90 Base) MCG/ACT inhaler FOUR TIMES DAILY ??? atorvastatin (LIPITOR) 10 MG tablet Take 1 tablet (10 mg total) by mouth nightly. ??? Blood Glucose Monitoring Suppl (ONE TOUCH ULTRA 2) w/Device Kit Check blood sugar once daily Kassi when fasting ??? chlorthalidone (HYGROTEN) 25 MG tablet Take 1 tablet (25 mg total) by mouth daily. ??? escitalopram (LEXAPRO) 20 MG tablet Take 1 tablet (20 mg total) by mouth daily. ??? Glucose Blood test strip Check blood sugar once daily in AM when fasting ??? Lancets (ONETOUCH ULTRASOFT) lancets Check blood sugar once daily in AM when fasting ??? lisinopril (PRINIVIL) 40 MG tablet TAKE ONE TABLET BY MOUTH DAILY AT 9AM ??? OMEPRAZOLE 40 MG capsule TAKE ONE CAPSULE BY MOUTH DAILY AT 9AM ??? oxybutynin XL (DITROPAN-XL) 5 MG 24 hr tablet Take 1 tablet (5 mg total) by mouth daily. ??? potassium chloride CR 10 MEQ Tab CR tablet TAKE 2 TABLETS BY MOUTH DAILY FOR 2 WEEKS, THEN RESUME ONE TABLET DAILY ??? traMADol 50 MG tablet Take 1 tablet (50 mg total) by mouth every 6 (six) hours as needed for Pain. Indications: Chronic Pain No current facility-administered medications on file prior to visit. Allergies: Allergies Allergen Reactions ??? Penicillins Rash [...] 3 performed by Joel Keenan MD at [facility] OR ??? EGD ??? HERNIA REPAIR ??? SHOULDER SURG PROC UNLISTED right ??? TONSILLECTOMY ??? TOTAL KNEE ARTHROPLASTY right Social History: Social History Socioeconomic History ??? Marital status: ??? Number of children: 2 Occupational History ??? 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 Smoking status: Former Smoker Packs/day: 1.00 Years: 12.00 Pack years: 12.00 Types: Cigarettes Quit date: 1976 Years since quittin.7 ??? Smokeless tobacco: Never Used Vaping Use ??? Vaping Use: Never used Substance and Sexual Activity ??? Alcohol use: Yes Comment: 2 cocktails on some Sundays ??? Drug use: Never ??? Sexual activity: Not Currently Other Topics Concern ??? Service No ??? Blood Transfusions No ??? Caffeine Concern Yes Comment: 2 cups ??? Special Diet Yes Comment: low nithin and low carb ??? Exercise No Family History: Family History Problem Relation Name Age of Onset ??? Alzheimers Mother ??? Heart Attack Father ??? Heart Disease Father ??? Alzheimers Father ??? Alzheimers Maternal Grandmother ??? Heart Disease Paternal Grandfather PE: Physical Exam Constitutional: General: She is not in acute distress. Appearance: Normal appearance. She is well-developed and well-groomed. She is not ill-appearing. HENT: Head: Normocephalic and atraumatic. Right Ear: Hearing and external ear normal. Left Ear: Hearing and external ear normal. Nose: Nose normal. Mouth/Throat: Lips: [place]. Mouth: Mucous membranes are moist. Eyes: General: Lids are normal. Vision grossly intact. Gaze aligned appropriately. Extraocular Movements: Extraocular movements intact. Conjunctiva/sclera: Conjunctivae normal. Pulmonary: Effort: Pulmonary effort is normal. No tachypnea, bradypnea, accessory muscle usage, prolonged expiration, respiratory distress or retractions. Musculoskeletal: Cervical back: Full passive range of [...] Cognition and memory normal. Judgment: Judgment normal. Recent Results (from the past 168 hour(s)) CORONAVIRUS (COVID-19) INFLUENZA A & B ANTIGEN IA PANEL Collection Time: 06/27/22 12:00 AM Specimen: NASAL Result Value Ref Range CORONAVIRUS ANTIGEN IA NEGATIVE NEGATIVE INFLUENZA A NEGATIVE NEGATIVE INFLUENZA B NEGATIVE NEGATIVE Internal Control: VALID VALID CORONAVIRUS (COVID 19) PCR ([facility]) Collection Time: 06/27/22 2:34 PM Specimen: NASOPHARYNGEAL SWAB Result Value Ref Range Spec. Description NASAL CORONAVIRUS SARS COV 2 PCR (RESP) NEGATIVE NEGATIVE FIRST TEST NO EMPLOYED IN HEALTHCARE NO SYMPTOMATIC DEFINED BY CDC YES DATE OF SYMPTOM ONSET 20220625 HOSPITALIZATION STATUS NO PATIENT IN ICU NO RESIDENT OF [facility] NO There were no vitals filed for this visit. Diagnoses/Impression: 1. Sinus headache CORONAVIRUS (COVID-19) INFLUENZA A & B ANTIGEN IA PANEL CORONAVIRUS (COVID 19) PCR ([facility]) 2. Sinus congestion CORONAVIRUS (COVID-19) INFLUENZA A & B ANTIGEN IA PANEL CORONAVIRUS (COVID 19) PCR ([facility]) 3. COVID-19 vaccine series not completed CORONAVIRUS (COVID-19) INFLUENZA A & B ANTIGEN IA PANEL CORONAVIRUS (COVID 19) PCR ([facility]) 4. Acute cough CORONAVIRUS (COVID-19) INFLUENZA A & B ANTIGEN IA PANEL CORONAVIRUS (COVID 19) PCR ([facility]) Recommendations and Plan: 1. Sinus headache - CORONAVIRUS (COVID-19) INFLUENZA A & B ANTIGEN IA PANEL - CORONAVIRUS (COVID 19) PCR ([facility]); Future 2. Sinus congestion - CORONAVIRUS (COVID-19) INFLUENZA A & B ANTIGEN IA PANEL - CORONAVIRUS (COVID 19) PCR ([facility]); Future 3. COVID-19 vaccine series not completed - CORONAVIRUS (COVID-19) INFLUENZA A & B ANTIGEN IA PANEL - CORONAVIRUS (COVID 19) PCR ([facility]); Future 4. Acute cough - CORONAVIRUS (COVID-19) INFLUENZA A & B ANTIGEN IA PANEL - CORONAVIRUS (COVID 19) PCR ([facility]); Future - she is coming up for covid and influenza testing today. -Advised to maintain social isolation/quarantine for 5 just finished up with my last patient just finished up with my last patient days after symptoms started unless both her test come back negative. -Discussed maintaining hydration, rest and advised to continue to use over the counter medications for symptom relief. -If symptoms do not improve over the next week or if she develops any new or worsening symptoms, she was advised to call into the office. Orders Placed This Encounter ? ? CORONAVIRUS (COVID-19) INFLUENZA A & B ANTIGEN IA PANEL ??? CORONAVIRUS (COVID 19) PCR ([facility]) Cannot display discharge medications since this is not an admission. PCP: QUETA ZAYAS 06/27/2022 * QUETA Houser - 06/27/2022 12:20 PM CDT Covid pcr is negative. documented in this encounter Plan of Treatment Upcoming Encounters Date Type Department Care Team (Late st Contact Info) Description 10/09/2024 9:30 AM FINGERPRINT CLASSIFIER Office Visit [facility] [address] Carlos Farris MD Three [facility] [address] [place] [address] 11/02/2024 10:20 AM FINGERPRINT CLASSIFIER Office Visit [facility] Medical Group Family & Internal Medicine - [address] [phone] Sami Liriano DO [address] [place] [address] documented as of this encounter Procedures Procedure Name Priority Date/Time Associated Diagnosis Comments CORONAVIRUS (COVID 19) PCR Routine 06/27/2022 2:34 PM CDT Sinus headache Sinus congestion COVID-19 vaccine series not completed Acute cough CORONAVIRUS (COVID-19) INFLUENZA A & B ANTIGEN IA PANEL Routine 06/27/2022 Sinus headache Sinus congestion COVID-19 vaccine series not completed Acute cough documented in this encounter Results * CORONAVIRUS (COVID 19) PCR ([facility]) (06/27/2022 2:34 PM CDT) SPEC DESCRIPTION NASAL 06/27/20 2:34 PM CDT [facility] CORONAVIRUS SARS COV 2 PCR (RESP) NEGATIVE NEGATIVE 06/28/2022 3:41 PM CDT [facility] Comment: THE SARS-CoV-2 TEST HAS BEEN AUTHORIZED BY THE FDA UNDER AN EUA FOR USE BY AUTHORIZED LABORATORIES. PERFORMED BY NUCLEIC ACID AMPLIFICATION PCR FIRST TEST NO 06/27/2022 2:34 PM CDT [facility] EMPLOYED IN HEALTHCARE NO 06/27/2022 2:34 PM CDT [facility] SYMPTOMATIC DEFINED BY CDC YES 06/27/2022 2:34 PM CDT [facility] DATE OF SYMPTOM ONSET 2022062506/27/2022 2:34 PM CDT [facility] HOSPITALIZATION STATUS NO 06/27/2022 2:34 PM CDT [facility] PATIENT IN ICU NO 06/27/2022 2:34 PM CDT [facility] RESIDENT OF [facility] NO 06/27/2022 2:34 PM CDT [facility] NASOPHARYNGEAL SWAB / Unknown 06/27/2022 2:34 PM CDT Koki Wilson [facility] MICROBIOLOG[facility] - GENERAL ORDERAB LES Final Result [facility] [address] [place] [address], * CORONAVIRUS (COVID-19) INFLUENZA A & B ANTIGEN IA PANEL (06/27/2022) CORONAVIRUS ANTIGEN IA NEGATIVE NEGATIVE [facility] INFLUENZA A NEGATIVE NEGATIVE [facility] INFLUENZA B NEGATIVE NEGATIVE [facility] Internal Control: VALID VALID [facility] NASAL STRUCTURE / Unknown 06/27/2022 [facility] MICROBIOLOGY - GENERAL ORDERAB LES Final Result Performing Organization Address City/[facility]/ZIP Co de Phone Number [facility] [address] [place] [address], [place] documented in this encounter Visit Diagnoses Diagnosis Sinus headache- Primary Headache Sinus congestion Other diseases of nasal cavity and sinuses COVID-19 vaccine series not completed Acute cough documented in this encounter Additional Health Concerns Infection Onset Date Last Indicated Resolved Time COVID-19 Rule Out 06/27/2022 06/27/2022 06/27/2022 2:35 PM CDT Assessment Noted Time PHQ-9 Depression Total Score: 0 10/11/19 22 10:50 AM FINGERPRINT CLASSIFIER documented as of this encounter Care Teams Analysis Evaluator Relationship Specialty Start Date End Date Sami Liriano DO [address] [place] [phone] PCP - General FAMILY PRACTICE 12/24/19 documented as of this encounter
--- OUTSIDE RECORDS SUMMARY | 2024-09-19 12:17 | XMS_ITS | Encounter Summary ---
Author Organization [facility] Address [facility]. [place], [place] [address] [place] [address] Care Team Providers Care Fundraiser Name Role Phone Sami Liriano Primary Care Provider + Encounter Details Date Type Department Care Team (Latest Contact Info) Description 06/27/2022 Travel Social History Tobacco Use Types Packs/Day [...] on file Legal Sex Female 12:43 PM COOKING CASING AND DRYING SUPERVISOR Gender Identity Female 12/18/2021 6:31 AM [...] st Contact Info) Description 10/09/2024 9:30 AM COOKING CASING AND DRYING SUPERVISOR Office Visit [facility] [phone] Carlos Farris MD [address] [facility] [address] [place] [address] 11/02/2024 10:20 AM COOKING CASING AND DRYING SUPERVISOR Office Visit [facility] Medical Group Family & Internal Medicine - [address] [phone] Sami Liriano DO [address] [place] [address] documented as of this encounter Visit Diagnoses Not on filedocumented in this encounter Additional Health Concerns Infection Onset Date Last Indicated Resolved Time COVID-19 Rule Out 06/27/2022 06/27/2022 06/27/2022 2:35 PM CDT Assessment Noted Time PHQ-9 Depression Total Score: 0 10/11/19 22 10:50 AM COOKING CASING AND DRYING SUPERVISOR documented as of this encounter Care Teams Fundraiser Relationship Specialty Start Date End Date Sami Liriano DO [address] [place] [address] PCP - General FAMILY PRACTICE 12/24/19 documented as of this encounter
--- OUTSIDE RECORDS SUMMARY | 2024-09-19 12:17 | XMS_ITS | Encounter Summary ---
Author Organization [facility] Address [address] [place] [address]. 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 Not on file [...] st Contact Info) Description 10/09/2024 9:30 AM APPAREL MANAGER Office Visit [facility] [phone] Carlos Farris MD Three [facility] [address] [place] [address] 11/02/2024 10:20 AM APPAREL MANAGER Office Visit [facility] Medical Group Family & Internal Medicine - [address] [phone] Sami Liriano DO [address] [place] [address] documented as of this encounter Visit Diagnoses Not on filedocumented in this encounter Additional Health Concerns Infection Onset Date Last Indicated Resolved Time COVID-19 Rule Out 07/24/2023 07/24/2023 07/24/2023 11:49 AM CDT COVID-19 Rule Out 07/24/2023 07/24/2023 07/25/2023 4:22 PM CDT COVID-19 Rule Out 11/01/2023 11/01/2023 11/01/2023 2:42 PM APPAREL MANAGER Assessment Noted Time PHQ-9 Depression Total Score: 0 10/11/19 22 10:50 AM APPAREL MANAGER documented as of this encounter Care Teams Sales Property Manager Relationship Specialty Start Date End Date Sami Liriano DO [address] [place] [address] PCP - General FAMILY PRACTICE 12/24/19 documented as of this encounter
--- OUTSIDE RECORDS SUMMARY | 2024-09-19 12:17 | XMS_ITS | Encounter Summary ---
Author Organization [facility] Address [address] [place] [address]. [place], [place] [address] [place] [address] Care Team Providers Care Media Librarian Name Role Phone Sami Liriano DO Primary Care Provider + Reason for Visit * Reason Onset Date Comments Referral 10/22/2022 Encounter Details Date Type Department Care Team (Late st Contact Info) Description 10/22/2022 Telephone [facility] Medical Group Family & Internal Medicine [place] [phone] [place] [address] Sami Liriano DO [facility] [place] [address] Referral Social History Tobacco Use Types Packs/Day [...] on file Legal Sex Female 12:43 PM CALF SKINNER Gender Identity Female 12/18/2021 6:31 AM CDT Sexual Orientation Straight 01/15/2022 6: 11 AM CDT 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 SKINNER * Sami Liriano DO - 10/22/2022 11:45 AM CST None of them do that, so if pt needs somewhere near our office then can do [facility]. Pt should get her CD with the images from us if she does this so that way she can bring the CD with her to the consultation. . SKINNER * Radha Oglesby MA - 10/22/2022 10:38 AM CST Patient is asking for a orthopedic referral for left knee pain. Patient states it has been bone on bone for years and she fell over the holidays and has increased pain since then. If [facility] has an ortho that comes to the [place] or [place] office she would like that please, Cb#[phone] SKINNER documented in this encounter Plan of Treatment Upcoming Encounters Date Type Department Care Team (Late st Contact Info) Description 10/09/2024 9:30 AM CALF SKINNER Office Visit [facility] [phone] Carlos Farris MD [address] [facility] [address] [facility] [place] [address] 11/02/2024 10:20 AM CALF SKINNER Office Visit [facility] Medical Group Family & Internal Medicine - [place] [address] [place] [phone] Sami Liriano DO [address] [place] [address] documented as of this encounter Visit Diagnoses Not on filedocumented in this encounter Additional Health Concerns Assessment Noted Time PHQ-9 Depression Total Score: 0 10/11/19 22 10:50 AM CALF SKINNER documented as of this encounter Care Teams Media Librarian Relationship Specialty Start Date End Date Sami Liriano DO [address] [place] [address] PCP - General FAMILY PRACTICE 12/24/19 documented as of this encounter
--- OUTSIDE RECORDS SUMMARY | 2024-09-19 12:17 | XMS_ITS | Encounter Summary ---
Author Organization [facility] Address [address] [place] [address]. 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 Not on franck e documented as of this encounter Plan of Treatment Upcoming Encounters Date Type Department Care Team (Late st Contact Info) Description 10/09/2024 9:30 AM VETERINARIAN HELPER Office Visit [facility] [phone] Carlos Farris MD [facility] [address] [place] [address] 11/02/2024 10:20 AM VETERINARIAN HELPER Office Visit [facility] Medical Group Family & Internal Medicine - [address] [phone] Sami Liriano DO [address] [place] [address] documented as of this encounter Visit Diagnoses Not on filedocumented in this encounter Additional Health Concerns Assessment Noted Time PHQ-9 Depression Total Score: 0 10/11/19 22 10:50 AM VETERINARIAN HELPER documented as of this encounter Care Teams Light Coil Winder Relationship Specialty Start Date End Date Sami Liriano DO [address] [place] [address] PCP - General FAMILY PRACTICE 12/24/19 documented as of this encounter
--- OUTSIDE RECORDS SUMMARY | 2024-09-19 12:17 | XMS_ITS | Encounter Summary ---
Author Organization [facility] Address [address] [place] [address]. [place], [place] [phone] [place] [phone] Care Team Providers Care Publications Designer Name Role Phone Sami Liriano DO Primary Care Provider + Reason for Visit * Reason Comments Diabetes 3 month follow up. Encounter Details Date Type Department Care Team (Late st Contact Info) Description 11/30/2022 10:20 AM SPANISH INTERPRETER Office Visit [facility] Family & Internal Medicine [id number] [place] [address] Sami Liriano DO [address] [place] [address] [phone] Diabetes (3 month follow up. 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 Not on file Not on franck e documented as of this encounter Last Filed Vital Signs Vital Sign Reading Time Taken Comments Blood Pressure 160/86 11/30/2022 11:14 AM SPANISH INTERPRETER Pulse 71 11/30/2022 9:54 AM SPANISH INTERPRETER Temperature 36.5 ??C (97.7 ??F) 11/30/2022 9:54 AM CS T Respiratory Rate 16 11/30/2022 9:54 AM SPANISH INTERPRETER Oxygen Saturation 97% 11/30/2022 9:54 AM SPANISH INTERPRETER Inhaled Oxygen Concentration - - Weight 111.4 kg (245 lb 9.6 oz) 11/30/2022 9:54 AM SPANISH INTERPRETER Height 153.7 cm (5' 0.5 ) 11/30/2022 9:54 AM SPANISH INTERPRETER Body Mass Index 47.18 11/30/2022 9:54 AM SPANISH INTERPRETER documented in this encounter Patient Instructions * Patient Instructions* Sami Liriano DO - 11/30/2022 10:20 AM SPANISH INTERPRETER Hold atorvastatin for one week to see if this helps with your pain. ISH INTERPRETER documented in this encounter Progress Notes * Song Hayes MA - 11/30/2022 10:20 AM CSTAddended by: SONG HAYES on: 11/30/2022 01:44 PM Modules accepted: Orders ISH INTERPRETER * Sami Liriano DO - 11/30/2022 10:20 AM CST Images from the original note were not included. GENERAL OFFICE VISIT Encounter Date: 11/30/2022 Chief Complaint: 67-year-old female presents for Diabetes (3 month follow up. ) HPI: Patient presents for follow-up on HLD. Patient has had HLD for multiple years. Current medications include atorvastatin. Current side effects include none. Patient does need labs drawn today. Patient has Type 2 Diabetes. Patient has had diabetes for less than 1 year. Medications include metformin ER. BS logs range: 100-120. Pt's last eye exam was 04/26/22. Patient's weight has gone up 12 lbs. Current symptoms include none. Patient presents for follow-up on essential hypertension. Patient has had hypertension for multipleyears. Current medications include Lisinopril and Chlorthalidone. Patient's blood pressure is not well controlled at this time. No side effects noted from medications. Concurrent conditions include Diabetes Mellitus, Hyperlipidemia and Chronic Kidney Disease 3a. Pt has knee pain. She states she will wake up in the middle of the night screaming in pain. She will have kristin horses as well. Pt has been referred to pul for MOR. She still has not heard back from [facility] on her CPAP. The order was sent on 04/26/22. ?? Review of Systems Constitutional: Negative for fever. Respiratory: Negative for shortness of breath. See HPI Cardiovascular: Negative for chest pain. Gastrointestinal: Negative for abdominal pain, nausea and vomiting. Psychiatric/Behavioral: See HPI Patient Active Problem List Diagnosis ??? Alopecia ??? Hypertension associated with type 2 diabetes mellitus (CMS/HCC) ??? Arthritis of left knee ??? GERD (gastroesophageal reflux disease) ??? Overactive bladder ??? Depression ??? Pharyngoesophageal dysphagia ??? Positive colorectal cancer screening using Cologuard test ??? ALLYSON positive ??? Stage 3a chronic kidney disease (CMS/HCC) ??? Severe obstructive sleep apnea ??? Hyperlipidemia associated with type 2 diabetes mellitus (CMS/HCC) ??? BMI 45.0-49.9, adult (CMS/HCC) ??? Current mild episode of major depressive disorder without prior episode (CMS/HCC) ??? Generalized osteoarthritis of multiple sites ??? Inflammatory arthritis ??? Urinary tract infection ??? Morbid (severe) obesity due to excess calories (CMS/HCC) Past Medical History: Diagnosis Date ??? Arthritis ??? Arthritis of left knee 11/08/2019 ??? Depression ??? GERD (gastroesophageal reflux disease) ??? Hypertension ??? Overactive bladder Past Surgical History: Procedure Laterality Date ??? ANKLE SURGERY left ??? SECTION ??? COLONOSCOPY N/A 04/27/2020 COLONOSCOPY WITH BIOPSY X 3 performed by Joel Keenan MD at [facility] OR ??? EGD ??? HERNIA REPAIR ??? SHOULDER SURG PROC UNLISTED right ??? TONSILLECTOMY ??? TOTAL KNEE ARTHROPLASTY right Family History Problem Relation Name Age of Onset ??? Alzheimers Mother ??? Heart Attack Father ??? Heart Disease Father ??? Alzheimers Father ??? Alzheimers Maternal Grandmother ??? Heart Disease Paternal Grandfather Social History Socioeconomic History ??? Marital status: Spouse name: Not on file ??? Number of children: 2 ??? Years of education: Not on file ??? Highest education level: Not on file Occupational History ??? 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 Smoking status: Former Packs/day: 1.00 Years: 12.00 Pack years: 12.00 Types: Cigarettes Quit date: 1976 Years since quittin.1 ??? Smokeless tobacco: Never Vaping Use ??? Vaping Use: Never used Substance and Sexual Activity ??? Alcohol use: Yes Comment: 2 cocktails on some Sundays ??? Drug use: Never ??? Sexual activity: Not Currently Other Topics Concern ??? Service No ??? Blood Transfusions No ??? Caffeine Concern Yes Comment: 2 cups ??? Occupational Exposure Not Asked ??? Hobby Hazards Not Asked ??? Sleep Concern Not Asked ??? Stress Concern Not Asked ??? Weight Concern Not Asked ??? Special Diet Yes Comment: low nithin and low carb ??? Back Care Not Asked ??? Exercise No ??? Bike Helmet Not Asked ??? Seat Belt Not Asked ??? Self-Exams Not Asked ??? Wheelchair Not Asked ??? Walker Not Asked ??? Upper extremity braces/slings Not Asked ??? Lower extermity braces/slings Not Asked ??? Self Care Not Asked Social History Narrative ??? Not on file Social Determinants of Health Financial Resource Strain: Not on file Food Insecurity: Not on file Transportation Needs: Not on file Physical Activity: Not on file Stress: Not on file Social Connections: Not on file Intimate Partner Violence: Not on file Housing Stability: Not on file Immunization History Administered Date(s) Administered ??? Dtap 06/30/2011 ??? Dtap (Acel-Immune) 06/30/2011 ??? Pneumococcal (Pneumovax 23) 09/19/2021 ??? Pneumococcal (Prevnar 13) 09/05/2020 Current Outpatient Medications Medication Sig Dispense Refill ??? acetaminophen 325 MG tablet Take 325 mg by mouth. Take 2 in the am and 2 tabs in the pm and 1 PRN ??? albuterol sulfate HFA 108 (90 Base) MCG/ACT inhaler FOUR TIMES DAILY ??? atorvastatin (LIPITOR) 10 MG tablet Take 1 tablet (10 mg total) by mouth nightly. 90 tablet 1 ??? Blood Glucose Monitoring Suppl (ONE TOUCH [...] every morning. 30 tablet 2 ??? Lancets ([employer]TOUCH ULTRASOFT) lancets Check blood sugar once daily in AM when fasting 1 each 11 ??? lisinopril (PRINIVIL) 40 MG tablet TAKE ONE TABLET BY MOUTH DAILY AT 9AM 180 tablet 1 ??? metFORMIN ER (GLUCOPHAGE-XR) 500 MG 24 hr tablet TAKE 1 TABLET BY MOUTH DAILY WITH BREAKFAST. PATIENT MUST BE SEEN FOR FURTHER REFILLS 30 tablet 0 ??? OMEPRAZOLE 40 MG capsule [...] sugar once daily Kassi when fasting ??? escitalopram (LEXAPRO) 20 MG tablet Take 1 tablet (20 mg total) by mouth daily. ??? Glucose Blood test strip Check blood sugar once daily in AM when fasting ??? Lancets (ONETOUCH ULTRASOFT) lancets Check blood sugar once daily in AM when fasting ??? lisinopril (PRINIVIL) 40 MG tablet TAKE ONE TABLET BY MOUTH DAILY AT 9AM ??? metFORMIN ER (GLUCOPHAGE-XR) 500 MG 24 hr tablet TAKE 1 TABLET BY MOUTH DAILY WITH BREAKFAST. PATIENT MUST BE SEEN FOR FURTHER REFILLS ??? OMEPRAZOLE 40 MG capsule TAKE ONE CAPSULE BY MOUTH DAILY AT 9AM ??? oxybutynin XL (DITROPAN-XL) 5 MG 24 hr tablet TAKE 1 TABLET BY MOUTH EVERY DAY ??? potassium chloride CR (K-TAB) 10 MEQ Tab CR tablet TAKE ONE TABLET DAILY Patient must be seen for further refills ??? traMADol (ULTRAM) 50 MG tablet Take 1 tablet (50 mg total) by mouth every 6 (six) hours as needed for Pain. Indications: Chronic Pain No current facility-administered medications on file prior to visit. Allergies Allergen Reactions ??? Penicillins Rash ??? Sulfa Antibiotics Rash Objective: Filed Vitals: 11/30/22 0954 11/30/22 1114 BP: (!) 172/81 (!) 160/86 Pulse: 71 Resp: 16 Temp: 97.7 ??F (36.5 ??C) TempSrc: Skin SpO2: 97% Weight: 111.4 kg (245 lb 9.6 oz) Height: 5' 0.5 (1.537 m) Physical Exam Vitals and nursing note [...] oriented to person, place, and time. Psychiatric: Comments: Mood is down Assessment & Plan: Jolly was seen today for diabetes. Diagnoses and all orders for this visit: Type 2 diabetes mellitus with other circulatory complication, without long-term current use of insulin ([facility]) - A1C (BACK OFFICE) - COLLECT.CAPILLARY (FNGR,HEEL,EAR) - CBC W/DIFF AUTOMATED; Future - LIPID PANEL; Future - TSH W/REFLEX; Future - VITAMIN D, 25 OH; Future - COMPREHENSIVE METABOLIC PANEL; Future - ALBUMIN URINE RANDOM; Future - CK (CPK); Future Hypertension associated with type 2 diabetes mellitus ([facility]) - hydroCHLOROthiazide (HYDRODIURIL) 25 MG tablet; Take 1 tablet (25 mg total) by mouth every morning. Hyperlipidemia associated with type 2 diabetes mellitus ([facility]) Morbid (severe) obesity due to excess calories ([facility]) Current moderate episode of major depressive disorder without prior episode ([facility]) - buPROPion XL (WELLBUTRIN XL) 150 MG 24 hr tablet; Take 1 tablet daily for one week, then take 2 tablets daily Stage 3a chronic kidney disease ([facility]) Chronic pain of left knee MOR (obstructive sleep apnea) Screening for lipid disorders - CBC W/DIFF AUTOMATED; Future - LIPID PANEL; Future - TSH W/REFLEX; Future - VITAMIN D, 25 OH; Future - COMPREHENSIVE METABOLIC PANEL; Future - ALBUMIN URINE RANDOM; Future - CK (CPK); Future Screening for endocrine, metabolic and immunity disorder - CBC W/DIFF AUTOMATED; Future - LIPID PANEL; Future - TSH W/REFLEX; Future - VITAMIN D, 25 OH; Future - COMPREHENSIVE METABOLIC PANEL; Future - ALBUMIN URINE RANDOM; Future - CK (CPK); Future Annual physical exam - CBC W/DIFF AUTOMATED; Future - LIPID PANEL; Future - TSH W/REFLEX; Future - VITAMIN D, 25 OH; Future - COMPREHENSIVE METABOLIC PANEL; Future - ALBUMIN URINE RANDOM; Future - CK (CPK); Future Vitamin D deficiency - VITAMIN D, 25 OH; Future Discussion/Summary: Will switch chlorthalidone back to HCTZ to see if this helps her symptoms of BP and swelling. Recommend weight loss; pt has concomitant HTN, T2DM, and HLD. Continue metformin for diabetes and recommend lifestyle changes; A1c is stable. Will add Wellbutrin to help with depressive symptoms today; discussed side effects. No personal history of seizures. Hold atorvastatin for one week to see if this helps with pains and kristin horses. Will have pt f/u in 1.5-2 months for reassessment. Pt v/u. Sami Liriano DO ISH INTERPRETER documented in this encounter Plan of Treatment Upcoming Encounters Date Type Department Care Team (Late st Contact Info) Description 10/09/2024 9:30 AM SPANISH INTERPRETER Office Visit [facility] [phone] Carlos Farris MD [facility] [address] [place] [id number] 11/02/2024 10:20 AM SPANISH INTERPRETER Office Visit [facility] Family & Internal Medicine - [address] [phone] Sami Liriano DO [address] [place] [phone] documented as of this encounter Procedures Procedure Name Priority Date/Time Associated Diagnosis Comments VENIPUNC ARM DRAW Routine 11/30/2022 1:4 4 PM SPANISH INTERPRETER Type 2 diabetes mellitus with other circulatory complication, without long-term current use of insulin ([facility]) Screening for lipid disorders Screening for endocrine, metabolic and immunity disorder Vitamin D deficiency TSH W/REFLEX Routine 11/30/2022 1:42 PM SPANISH INTERPRETER Type 2 diabetes mellitus with other circulatory complication, without long-term current use of insulin ([facility]) Screening for lipid disorders Screening for endocrine, metabolic and immunity disorder Annual physical exam ALBUMIN URINE RANDOM W/CREATININE Routine 11/30/2022 1:42 PM SPANISH INTERPRETER Type 2 diabetes mellitus with other circulatory complication, without long-term current use of insulin ([facility]) Screening for lipid disorders Screening for endocrine, metabolic and immunity disorder Annual physical exam COMPREHENSIVE METABOLIC PANEL Routine 11/30/2022 1:42 PM SPANISH INTERPRETER Type 2 diabetes mellitus with other circulatory complication, without long-term current use of insulin ([facility]) Screening for lipid disorders Screening for endocrine, metabolic and immunity disorder Annual physical exam LIPID PANEL Routine 11/30/2022 1:42 PM SPANISH INTERPRETER Type 2 diabetes mellitus with other circulatory complication, without long-term current use of insulin ([facility]) Screening for lipid disorders Screening for endocrine, metabolic and immunity disorder Annual physical exam CBC W/DIFF AUTOMATED Routine 11/30/2022 1:42 PM SPANISH INTERPRETER Type 2 diabetes mellitus with other circulatory complication, without long-term current use of insulin ([facility]) Screening for lipid disorders Screening for endocrine, metabolic and immunity disorder Annual physical exam VITAMIN D, 25 OH Routine 11/30/2022 1:42 PM SPANISH INTERPRETER Type 2 diabetes mellitus with other circulatory complication, without long-term current use of insulin ([facility]) Screening for lipid disorders Screening for endocrine, metabolic and immunity disorder Annual physical exam Vitamin D deficiency CK (CPK) Routine 11/30/2022 1:42 PM SPANISH INTERPRETER Type 2 diabetes mellitus with other circulatory complication, without long-term current use of insulin ([facility]) Screening for lipid disorders Screening for endocrine, metabolic and immunity disorder Annual physical exam COLLECT.CAPILLARY (FNGR,HEEL,EAR) Routine 11/30/2022 9:56 AM SPANISH INTERPRETER Type 2 diabetes mellitus with other circulatory complication, without long-term current use of insulin ([facility] HHS/HCC) HEMOGLOBIN, GLYCOSYLATED Routine 11/30/2022 Type 2 diabetes mellitus with other circulatory complication, without long-term current use of insulin ([facility] HHS/HCC) documented in this encounter Results * CK (CPK) (11/30/2022 1:42 PM SPANISH INTERPRETER) Pathologist [facility] CPK 131 26 - 192 U/L 11/30/2022 8:01 PM SPANISH INTERPRETER [facility] 11/30/2022 1:42 PM SPANISH INTERPRETER Sami Liriano DO LABORATORY Final Re sult Performing Organization Address [facility] de Phone Number [facility] [address] [place] [address], [place] [phone] * ALBUMIN URINE RANDOM (11/30/2022 1:42 PM SPANISH INTERPRETER) [facility] MICROALBUMIN (U) 3.8 <20 MG/L 12/01/19 8:14 PM SPANISH INTERPRETER [facility] CREATININE RANDOM (U) 57.0 MG/DL 11/30/2022 8:14 PM SPANISH INTERPRETER [facility] MICROALB/CREAT 6.7 <30 MG/G 11/30/2022 8:14 PM SPANISH INTERPRETER [facility] URINE SPECIMEN / Unknown 11/30/2022 1:42 PM SPANISH INTERPRETER Sami Liriano DO URINE ORDERABLES Final R esult Performing Organization Address [facility]/ZIP Co de Phone Number [facility] [address] [place] [address], [place] [phone] * (ABNORMAL) COMPREHENSIVE METABOLIC PANEL (11/30/2022 1:42 PM SPANISH INTERPRETER) Pathologist [facility] SODIUM S/P/B 139 136 - 145 MMOL/L 11/30/2022 8:42 PM [facility] POTASSIUM S/P/B 4.6 3.5 - 5.1 MMOL/L 11/30/2022 8:42 PM [facility] CHLORIDE S/P/B 104 98 - 107 MMOL/L 11/30/2022 8:42 PM [facility] CO2 24.5 21 - 32 MMOL/L 11/30/2022 8:42 PM [facility] GLUCOSE 93 70 - 99 MG/DL 11/30/2022 8:42 PM [facility] BUN 38(H) 7 - 18 MG/DL 11/30/2022 8:42 PM [facility] CREATININE S/P/B 1.24(H) 0.55 - 1.02 MG/DL 11/30/2022 8:42 PM [facility] CALCIUM S/P/B 9.2 8.4 - 10.5 MG/DL 11/30/2022 8:42 PM [facility] BILIRUBIN TOTAL S/P/B 0.8 0.2 - 1.0 MG/DL 11/30/2022 8:42 PM [facility] ALKALINE PHOSPHATASE S/P/B 87 55 - 142 U/L 11/30/2022 8:42 PM [facility] AST 21 15 - 37 U/L 11/30/2022 8:42 PM [facility] ALT 22 14 - 59 U/L 11/30/2022 8:42 PM [facility] TOTAL PROTEIN S/P/B 7.6 6.4 - 8.2 G/DL 11/30/2022 8:42 PM [facility] ALBUMIN S/P/B 4.3 3.4 - 5.0 G/DL 11/30/2022 8:42 PM [facility] ANION GAP 10.5 5 - 15 MMOL/L 11/30/2022 8:42 PM SPANISH INTERPRETER [facility] Comment:REFERENCE RANGE NOT ESTABLISHED OSMOLALITY (CALC) 297 MOSM/KG 023 8:42 PM SPANISH INTERPRETER [facility] [place] Comment:REFERENCE RANGE NOT ESTABLISHED GFR ESTIMATE 47(L) >90 ML/MIN/1. 73 M2 11/30/2022 8:42 PM SPANISH INTERPRETER [facility] GFR NOTES GFR REFERENCE S: 11/30/2022 8:42 PM SPANISH INTERPRETER [facility] Comment: THE ESTIMATED GFR IS CALCULATED [...] ml/min/1.73 m2 G5,KIDNEY FAILURE: <15 ml/min/1.73 m2 11/30/2022 1:42 PM SPANISH INTERPRETER Sami Liriano DO LABORATORY Final Re sult [facility] [address] [place] [address], * (ABNORMAL) VITAMIN D, 25 OH (11/30/2022 1:42 PM SPANISH INTERPRETER) VITAMIN D 25 HYDROXY TOTAL S/P/B 29.1(L) 30 - 100 NG/ML 11/30/2022 8:42 PM SPANISH INTERPRETER [facility] [place] Comment: ? DEFICIENT ??<20 ?INSUFFICIENT 20-30 ?SUFFICIENT 30-100 11/30/2022 1:42 PM SPANISH INTERPRETER Sami Liriano DO LABORATORY Final Re sult Performing Organization Address [facility]/ZIP Co de Phone Number [facility] [place] [address] [place] [address], [place] [phone] * TSH W/REFLEX (11/30/2022 1:42 PM SPANISH INTERPRETER) TSH 2.998 0.358 - 3.740 uIU/ML 11/30/2022 8:42 PM SPANISH INTERPRETER [facility] 11/30/2022 1:42 PM SPANISH INTERPRETER Sami Liriano LABORATORY Final Re sult Performing Organization Address [facility] Co de Phone Number [facility] [address] [place] [address], [place] [phone] * LIPID PANEL (11/30/2022 1:42 PM SPANISH INTERPRETER) CHOLESTEROL 152 <200 MG/DL 11/30/2022 8:42 PM SPANISH INTERPRETER [facility] TRIGLYCERIDES 117 <150 MG/DL 11/30/2022 8:42 PM SPANISH INTERPRETER [facility] HDL 53 >40 MG/DL 11/30/2022 8:42 PM SPANISH INTERPRETER [facility] LDL-C 76 <100 MG/DL 11/30/2022 8:42 PM SPANISH INTERPRETER [facility] VLDL CALCULATION 23 5 - 28 MG/DL 11/30/2022 8:42 PM SPANISH INTERPRETER [facility] CHOL/HDL RATIO 2.9 0.0 - 4.0 11/30/2022 8:42 PM SPANISH INTERPRETER [facility] LDL/HDL 1.4 0.41 - 2.13 11/30/2022 8:42 PM SPANISH INTERPRETER [facility] NON HDL CHOLESTEROL 99 <140 MG/DL 11/30/2022 8:42 PM SPANISH INTERPRETER [facility] 11/30/2022 1:42 PM SPANISH INTERPRETER Sami Liriano DO LABORATORY Final Re sult [facility] [address] [place] [address], * (ABNORMAL) CBC W/DIFF AUTOMATED (11/30/2022 1:42 PM SPANISH INTERPRETER) WBC 11.88(H) 4.00 - 10.80 x10'3/uL 11/30/2022 7:37 PM SPANISH INTERPRETER [facility] RBC 4.12 4.10 - 5.40 x10'6/uL 11/30/2022 7:37 PM SPANISH INTERPRETER [facility] HGB 11.4(L) 12.0 - 16.0 G/DL 11/30/2022 7:37 PM [facility] HCT 36.3 36.0 - 47.0 % 11/30/2022 7:37 PM SPANISH INTERPRETER [facility] MCV 88.1 78.0 - 100.0 FL 11/30/2022 7:37 PM SPANISH INTERPRETER [facility] MCH 27.7 27.0 - 31.0 PG 11/30/2022 7:37 PM SPANISH INTERPRETER [facility] MCHC 31.4(L) 33.0 - 36.0 G/DL 11/30/2022 7:37 PM [facility] RDW 14.0 11.5 - 14.5 % 11/30/2022 7:37 PM SPANISH INTERPRETER [facility] PLT 224 150 - 350 x10'3/uL 11/30/2022 7:37 PM [facility] MPV 10.4 7.4 - 10.4 FL 11/30/2022 7:37 PM [facility] DIFFERENTIAL TYPE AUTOMATED DIFFERENTIAL 11/30/2022 7:38 PM [facility] NEUTROPHILS % 61.8 % 11/30/2022 7:38 PM [facility] LYMPHOCYTES % 29.8 % 11/30/2022 7:38 PM [facility] MONOCYTES % 5.9 % 11/30/2022 7:38 PM [facility] EOSINOPHILS % 2.1 % 11/30/2022 7:38 PM [facility] BASOPHILS % 0.3 % 11/30/2022 7:38 PM [facility] IMMATURE GRANS % 0.1 % 11/30/2022 7:38 PM [facility] ABS. NEUTROPHILS 7.34 1.60 - 8.30 x10'3/uL 11/30/2022 7:38 PM [facility] ABS. LYMPHOCYTES 3.54 0.80 - 4.70 x10'3/uL 11/30/2022 7:38 PM [facility] ABS. MONOCYTES 0.70 0.00 - 1.50 x10'3/uL 11/30/2022 7:38 PM [facility] ABS. EOSINOPHILS 0.25 0.00 - 0.40 x10'3/uL 11/30/2022 7:38 PM [facility] ABS. BASOPHILS 0.04 0.00 - 0.20 x10'3/uL 11/30/2022 7:38 PM [facility] ABS. IMMATURE GRANULOCYTES 0.01 0.00 - 0.03 x10'3/uL 11/30/2022 7:38 PM [facility] 11/30/2022 1:42 PM SPANISH INTERPRETER us Sami Liriano DO LABORATORY Final Re sult [facility] [place] [address] [facility] [place] [address], [place] [phone] * A1C (BACK OFFICE) (11/30/2022) HGB A1C 5.9 % [facility] 11/30/2022 us Sami Liriano DO LABORATORY Final Re sult Performing Organization Address City/[facility]/ZIP Co de Phone Number [place] [facility] [address] [place] [address], documented in this encounter Visit Diagnoses Diagnosis Type 2 diabetes mellitus with other circulatory complication, without long-term current use of insulin ([facility])- Primary Hypertension associated with type 2 diabetes mellitus ([facility]) Hyperlipidemia associated with type 2 diabetes mellitus ([facility]) Morbid (severe) obesity due to excess calories ([facility]) Current moderate episode of major depressive disorder without prior episode ([facility]) Stage 3a chronic kidney disease ([facility]) Chronic pain of left knee Pain in joint, lower leg MOR (obstructive sleep apnea) Obstructive sleep apnea (adult) (pediatric) Screening for lipid disorders Screening for endocrine, metabolic and immunity disorder Annual physical exam Routine general medical examination at a health care facility Vitamin D deficiency Unspecified vitamin D deficiency documented in this encounter Additional Health Concerns Assessment Noted Time PHQ-9 Depression Total Score: 0 10/11/19 22 10:50 AM SPANISH INTERPRETER documented as of this encounter Care Teams Publications Designer Relationship Specialty Start Date End Date Sami Liriano DO [address] [place] [address] PCP - General FAMILY PRACTICE 12/24/19 documented as of this encounter
--- OUTSIDE RECORDS SUMMARY | 2024-09-19 12:17 | XMS_ITS | Encounter Summary ---
Author Organization [facility] Address [address] [place] [address]. [place], [place] [address] [place] [address] Care Team Providers Care Mat Linker Name Role Phone Sami Liriano DO Primary Care Provider + Reason for Visit * Reason Onset Date Comments Results 06/28/2022 Encounter Details Date Type Department Care Team (Late st Contact Info) Description 06/28/2022 Telephone [facility] Family & Internal Medicine [place] [address] [place] [phone] Sami Liriano DO [address] [place] [address] Results Social History Tobacco Use Types [...] on file Legal Sex Female 12:43 PM GENERAL LABOR Gender Identity Female 12/18/2021 6:31 AM CDT Sexual Orientation Straight 01/15/2022 6: 11 AM CDT 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 Unable to assess 06/27/2022 9:19 AM CDT documented as of this encounter Progress Notes * Radha Oglesby MA - 06/28/2022 4:37 PM CDT Patient notified and v/u * Radha Oglesby MA - 06/28/2022 4:36 PM CDT ----- Message from QUETA Houser sent at 06/28/2022 11:16 AM CDT ----- Covid pcr is negative. documented in this encounter Plan of Treatment Upcoming Encounters Date Type Department Care Team (Late st Contact Info) Description 10/09/2024 9:30 AM GENERAL LABOR Office Visit [facility] [phone] Carlos Farris MD [facility] [address] [facility] [place] [address] 11/02/2024 10:20 AM GENERAL LABOR Office Visit [facility] Family & Internal Medicine - [address] [phone] Sami Liriano DO [address] [place] [address] documented as of this encounter Visit Diagnoses Not on filedocumented in this encounter Additional Health Concerns Assessment Noted Time PHQ-9 Depression Total Score: 0 10/11/19 10:50 AM GENERAL LABOR documented as of this encounter Care Teams Mat Linker Relationship Specialty Start Date End Date Sami Liriano DO [address] [place] [address] PCP - General FAMILY PRACTICE 12/24/19 documented as of this encounter
--- OUTSIDE RECORDS SUMMARY | 2024-09-19 12:17 | XMS_ITS | Encounter Summary ---
Author Organization [facility] Address [address] [place] [address]. [place], [place] [address] [place] [address] Care Team Providers Care Manager Art Name Role Phone Sami Liriano DO Primary Care Provider + Reason for Referral * Consultation (Routine) - Closed Specialty Diagnoses / Procedures Referred By Contac t Referred To Contact SLEEP & RESPIRATORY [facility]ARE Diagnoses Shortness of breath Procedures OFFICE/OUTPT VISIT,NEW,LEVL III OFFICE/OUTPT VISIT,NEW,LEVL IV OFFICE/OUTPT VISIT,NEW,LEVL V OFFICE/OUTPT VISIT,EST,LEVL III OFFICE/OUTPT VISIT,EST,LEVL IV OFFICE/OUTPT VISIT,EST,LEVL V Sami Liriano DO [address] [place] [address] Phone: tel: fax: Sami Pinto MD [address] [place], [place] [address] Phone: tel: fax: Referral ID Status Reason Start Date Expiration Date V isits Requested Visits Authorized [id number] Closed Specialty Services 08/03/2022 09/03/2023 1 1 Scheduling Instructions Pt would like to have a provider in the [place] location. She does not want to go to [place]. CTOR OF ANALYTICS Reason for Visit * Reason Onset Date Comments Referral 08/02/2022 Encounter Details Date Type Department Care Team (Late st Contact Info) Description 08/02/2022 Telephone [facility] Family & Internal Medicine - [place] [address] [place] [phone] Sami Liriano DO [address] [place] [address] Referral Social History Tobacco Use Types Packs/Day Years Used Date Smoking Tobacco: Former Cigarettes 1 12 5 1976 Smokeless Tobacco: Never Alcohol Use Standard [...] Legal Sex Female 12:43 PM DIRECTOR OF ANALYTICS Gender Identity Female 12/18/2021 6:31 AM CDT Sexual Orientation Straight 01/15/2022 6: 11 AM CDT 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 (mentioed that in the notes to the referral team.) BB 08/06/2022 CTOR OF ANALYTICS CTOR OF ANALYTICS CTOR OF ANALYTICS * Melanie Lance MA - 08/03/2022 3:24 PM CDT Referral placed lm 08/03/22 tn * Sami Liriano DO - 08/02/2022 5:22 PM CDT OK to refer. Pt was referred to Dr. Pinto previously for MOR; she can be referred to Dr. Pinto or oneof the other [facility] pulmonologists. * Maria Del Rosario Bianchi - 08/02/2022 1:58 PM CDT Patient called in stating that she we were referring her to a museum assistant for SOB since having covid in September. I do not see a referral in her chart. Patient is wanting to know if you are still wanting to refer her if so she would like us to start on the referral. States no one in particular. documented in this encounter Plan of Treatment Upcoming Encounters Date Type Department Care Team (Late st Contact Info) Description 10/09/2024 9:30 AM DIRECTOR OF ANALYTICS Office Visit [facility]-[address] [phone] Carlos Farris MD [facility] [address] [place] [address] 11/02/2024 10:20 AM DIRECTOR OF ANALYTICS Office Visit [facility] Family & Internal Medicine - [address] [phone] Sami Liriano DO [address] [place] [address] Scheduled Referrals Name Type Priority Associated Diagnoses Orde r Schedule Ambulatory referral to Pulmonology ([facility]) Referral Routine Shortness of breath Ordered: 08/06/2022 documented as of this encounter Visit Diagnoses Diagnosis Shortness of breath- Primary documented in this encounter Additional Health Concerns Assessment Noted Time PHQ-9 Depression Total Score: 0 10/11/19 22 10:50 AM DIRECTOR OF ANALYTICS documented as of this encounter Care Teams Manager Art Relationship Specialty Start Date End Date Sami Liriano DO [address] [place] [address] PCP - General FAMILY PRACTICE 12/24/19 documented as of this encounter
--- OUTSIDE RECORDS SUMMARY | 2024-09-19 12:17 | XMS_ITS | Encounter Summary ---
Author Organization [facility] Address [address] [place] [address]. [place], [place] [phone] [place] [address] Care Team Providers Care Scheduler Name Role Phone Sami Gimenez DO Primary Care Provider + Reason for Visit * Reason Onset Date Comments Refill Request 06/01/2022 Encounter Details Date Type Department Care Team (Late st Contact Info) Description 06/01/[address] [facility] Family & Internal Medicine [facility] [address] [place] [address] Sami Gimenez DO 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 If pt needs oxybutynin again, that is fine. I do not see why it was discontinued specifically, so check with patient first. * Radha Oglesby MA - 06/01/2022 7:40 AM CDT Refill request received from Patient also asking for refills of metformin and oxybutynin which are not active in patients chart. Ok to restart these? Last visit with SAMI GIMENEZ in FAMILY PRACTICE was on: 04/19/2022 in [facility] Future Appointments Date Time Provider Department Center 07/24/2022 9:40 AM Sami Gimenez DO [id number] 09/14/2022 10:20 AM Sami Pinto MD [facility] [id number] [id number] - [place], [place] - [address] [facility] [address] [facility] - KEVIN Velásquez [address] [facility] 100 [address] [facility] 100 [place] [address] Current Outpatient Medications: ??? acetaminophen 325 MG tablet, Take 325 mg by mouth. Take 2 in the am and 2 tabs in the pm and 1 PRN, Disp: , Rfl: ??? albuterol sulfate HFA 108 (90 Base) MCG/ACT inhaler, FOUR TIMES DAILY, Disp: , Rfl: ??? atorvastatin (LIPITOR) 10 MG tablet, Take 1 tablet by mouth nightly., Disp: , Rfl: ??? Blood Glucose Monitoring Suppl (ONE TOUCH ULTRA 2) w/Device Kit, Check blood sugar once daily in AM when fasting, Disp: 1 kit, Rfl: 0 ??? chlorthalidone (HYGROTEN) 25 MG tablet, Take 1 tablet (25 mg total) by mouth daily., Disp: 90 tablet, Rfl: 1 ??? ESCITALOPRAM 20 MG tablet, TAKE 1 TABLET BY MOUTH EVERY DAY, Disp: 90 tablet, Rfl: 1 ??? Glucose Blood test strip, Check blood sugar once daily in AM when fasting, Disp: 100 strip, Rfl: 11 ??? Lancets (ONETOUCH ULTRASOFT) lancets, Check blood sugar once daily in AM when fasting, Disp: 1 each, Rfl: 11 ??? lisinopril (PRINIVIL) 40 MG tablet, TAKE ONE TABLET BY MOUTH DAILY AT 9AM, Disp: 180 tablet, Rfl: 1 ??? OMEPRAZOLE 40 MG capsule, TAKE ONE CAPSULE BY MOUTH DAILY AT 9AM, Disp: 90 capsule, Rfl: 0 ??? potassium chloride CR 10 MEQ Tab CR tablet, TAKE 2 TABLETS BY MOUTH DAILY FOR 2 WEEKS, THEN RESUME ONE TABLET DAILY, Disp: 90 tablet, Rfl: 1 ??? traMADol 50 MG tablet, Take 1 tablet (50 mg total) by mouth every 6 (six) hours as needed for Pain. Indications: Chronic Pain, Disp: 60 tablet, Rfl: 0 documented in this encounter Plan of Treatment Upcoming Encounters Date Type Department Care Team (Late st Contact Info) Description 10/09/2024 9:30 AM VISITOR SERVICES REPRESENTATIVE Office Visit [facility]-[address] [phone] Carlos Farris MD [facility] [address] [place] [address] 11/02/2024 10:20 AM VISITOR SERVICES REPRESENTATIVE Office Visit [facility] Family & Internal Medicine - [address] [phone] Sami Gimenez DO [address] [place] [address] documented as of this encounter Visit Diagnoses Diagnosis Mixed hyperlipidemia- Primary Current mild episode of major depressive disorder without prior episode (CMS/HCC) Essential hypertension Unspecified essential hypertension Overactive bladder Hypertonicity of bladder documented in this encounter Additional Health Concerns Assessment Noted Time PHQ-9 Depression Total Score: 0 10/11/19 22 10:50 AM VISITOR SERVICES REPRESENTATIVE documented as of this encounter Care Teams Scheduler Relationship Specialty Start Date End Date Sami Gimenez DO [address] [place] [address] PCP - General FAMILY PRACTICE 12/24/19 documented as of this encounter
--- OUTSIDE RECORDS SUMMARY | 2024-09-19 12:17 | XMS_ITS | Encounter Summary ---
Author Organization [facility] Address [address] [place] [address]. [place], [place] [address] [place] [address] Care Team Providers Care Digital Account Supervisor Name Role Phone Sami Liriano DO Primary Care Provider + Reason for Visit * Reason Onset Date Comments UTI 09/04/2022 Encounter Details Date Type Department Care Team (Late st Contact Info) Description 09/04/2022 Telephone [facility] Family & Internal Medicine [place] [phone] [place] [phone] Sami Liriano DO [facility] [place] [address] UTI Social History Tobacco Use Types Packs/Day Years [...] on file Legal Sex Female 12:43 PM ACIDIZER Gender Identity Female 12/18/2021 6:31 AM CDT Sexual Orientation Straight 01/15/2022 6: 11 AM CDT 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 May need to obtain testing if not improving. IZER * Poppy Alas - 09/04/2022 3:23 PM CST Patient has had uti symptoms for about a week. Has been taking azo to help. She now has less pain but urine is really cloudy and has odor. Wondering if we can call out anything for her. She is unableto get into drop off a u/a for us soon IZER documented in this encounter Plan of Treatment Upcoming Encounters Date Type Department Care Team (Late st Contact Info) Description 10/09/2024 9:30 AM ACIDIZER Office Visit [facility]-[address] [phone] Carlos Farirs MD [address] [facility] [address] [facility] [place] [address] 11/02/2024 10:20 AM ACIDIZER Office Visit [facility] Family & Internal Medicine - [address] [phone] Sami Liriano DO [address] [place] [address] documented as of this encounter Visit Diagnoses Diagnosis UTI symptoms- Primary documented in this encounter Additional Health Concerns Assessment Noted Time PHQ-9 Depression Total Score: 0 10/11/19 22 10:50 AM ACIDIZER documented as of this encounter Care Teams Digital Account Supervisor Relationship Specialty Start Date End Date Sami Liriano DO [address] [place] [address] PCP - General FAMILY PRACTICE 12/24/19 documented as of this encounter
--- OUTSIDE RECORDS SUMMARY | 2024-09-19 12:18 | XMS_ITS | Encounter Summary ---
Author Organization [facility] Address [id number]. [place], [place] [id number] [place] [address] Care Team Providers Care Supervisor Shrimp Pond Name Role Phone Sami Liriano DO Primary Care Provider + Reason for Referral * Consultation (Urgent) - Closed Specialty Diagnoses / Procedures Referred By Sheeren benton Referred To Contact OTOLARYNGOLOGY Diagnoses Severe obstructive sleep apnea Sami Liriano DO [address] [place] [address] Phone: tel: fax: Varghese Roa MD [address] [place] [address] Phone: tel: fax: Referral ID Status Reason Start Date Expiration Date Visits Re quested Visits Authorized [id number] Closed 01/16/2022 07/15/2022 6 6 Reason for Visit * Reason Comments Diabetes follow up Encounter Details Date Type Department Care Team (Late st Contact Info) Description 01/17/2022 9:40 AM CDT Office Visit [facility] Family & Internal Medicine - [place] [address] [place] [address] Sami Liriano DO [address] [place] [address] Diabetes (follow up ) Social History Tobacco Use Types Packs/Day Years Used Date Smoking Tobacco: Former Cigarettes 1 12 1976 Smokeless Tobacco: Never Alcohol Use Standard [...] on file Legal Sex Female 12:43 PM DENTAL LABORATORY TECHNICIAN APPRENTICE Gender Identity Female 12/18/2021 6:31 AM CDT Sexual Orientation Straight 01/15/2022 6: 11 AM CDT 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 No / Unsure 01/17/2022 9:42 AM CDT documented as of this encounter Last Filed Vital Signs Vital Sign Reading Time Taken Comments Blood Pressure 118/57 01/17/2022 9:43 AM CDT Pulse 78 01/17/2022 9:43 AM CDT Temperature 36.5 ??C (97.7 ??F) 01/17/2022 9:43 AM CD T Respiratory Rate 16 01/17/2022 9:43 AM CDT Oxygen Saturation 97% 01/17/2022 9:43 AM CDT Inhaled Oxygen Concentration - - Weight 108.5 kg (239 lb 3.2 oz) 01/17/2022 9:43 AM CDT Height 153.7 cm (5' 0.5 ) 01/17/2022 9:43 AM CDT Body Mass Index 45.95 01/17/2022 9:43 AM CDT documented in this encounter Progress Notes * Sami Liriano DO - 01/17/2022 9:40 AM CDT Images from the original note were not included. GENERAL OFFICE VISIT Encounter Date: 01/17/2022 Chief Complaint: 66-year-old female presents for Diabetes (follow up ) HPI: Patient presents for Diabetes follow-up. Patient has Type 2 Diabetes. Patient has had diabetes for less than 1 year. Medications include metformin ER. BS logs range: 100-120. Patient's weight has gone down 4 lbs. Current symptoms include none. Pt notes fatigue. Pt states she has sleep apnea, but she doesn't have a CPAP. She has not seen pulmor ENT as she was recommended to do by cardiology. Pt has CKD stage 3a and hypokalemia; Cr was elevated on recent check and needs to be rechecked. Patient presents for follow-up on essential hypertension. Patient has had hypertension for many years. Current medications include lisinopril and chlorthalidone. Pt's BP is well controlled. No side effects noted from medications. ?? Patient present for major depressive disorder. Pt was first diagnosed with this multiple years ago.Concurrent psychiatric conditions include none. Pt is currently taking escitalopram. Pt does see counseling. Pt's symptoms are well controlled. Patient would like to continue current medications as prescribed. Review of Systems Constitutional: Negative for fever. Respiratory: Negative for shortness of breath. See HPI Cardiovascular: Negative for chest pain. Gastrointestinal: Negative for abdominal pain, nausea and vomiting. Psychiatric/Behavioral: See HPI Patient Active Problem List Diagnosis ??? Alopecia ??? Essential hypertension ??? Arthritis of left knee ??? GERD (gastroesophageal reflux disease) ??? Overactive bladder ??? Depression ??? Pharyngoesophageal dysphagia ??? Positive colorectal cancer screening using Cologuard test ??? ALLYSON positive ??? Stage 3a chronic kidney disease (CMS/HCC) ??? Severe obstructive sleep apnea ??? Mixed hyperlipidemia ??? BMI 45.0-49.9, adult (CMS/HCC) ??? Current mild episode of major depressive disorder without prior episode (CMS/HCC) Past Medical History: Diagnosis Date ??? Arthritis ??? Arthritis of left knee 11/08/2019 ??? Depression ??? GERD (gastroesophageal reflux disease) ??? Hypertension ??? Overactive bladder Past Surgical History: Procedure Laterality Date ??? ANKLE SURGERY left ??? SECTION ??? COLONOSCOPY N/A 04/27/2020 COLONOSCOPY WITH BIOPSY X 3 performed by Joel Keenan MD at [facility] ??? EGD ??? HERNIA REPAIR ??? [...] Not on file Occupational History ??? 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 Smoking status: Former Smoker Packs/day: 1.00 Years: 12.00 Pack years: 12.00 Types: Cigarettes Quit date: 1976 Years since quittin.3 ??? Smokeless tobacco: Never Used Vaping Use [...] file Intimate Partner Violence: Not on file Immunization History Administered Date(s) Administered ??? Dtap 06/30/2011 ??? Dtap (Acel-Immune) 06/30/2011 ??? Pneumococcal (Pneumovax 23) 09/19/2021 ??? Pneumococcal (Prevnar 13) 09/05/2020 Current Outpatient Medications Medication Sig Dispense Refill ??? acetaminophen 325 MG tablet Take 325 mg by mouth. Take 2 in the am and 2 tabs in the pm and 1 PRN ??? Blood Glucose Monitoring Suppl (ONE TOUCH ULTRA 2) w/Device Kit Check blood sugar once daily Kassi when fasting 1 kit 0 ??? CHLORTHALIDONE 25 MG tablet TAKE 1 TABLET BY MOUTH EVERY DAY 90 tablet 1 ??? ESCITALOPRAM 20 MG tablet TAKE 1 TABLET BY MOUTH EVERY DAY 90 tablet 1 ??? Glucose Blood test strip Check blood sugar once daily in AM when fasting 100 strip 11 ??? Lancets (eSoftUCH ULTRASOFT) lancets Check blood sugar once daily in AM when fasting 1 each 11 ??? LISINOPRIL 40 MG tablet TAKE 1 TABLET BY MOUTH EVERY DAY 90 tablet 1 ??? metFORMIN ER 500 MG 24 hr tablet Take 1 tablet (500 mg total) by mouth daily with breakfast. 180 tablet 1 ??? potassium chloride CR 10 MEQ Tab CR tablet T2T PO D9 FOR 2 WEEKS, THEN RESUME TAKE ONE TABLET BY MOUTH DAILY AT 9AM 60 tablet 0 ??? traMADol 50 MG tablet Take 1 [...] in the pm and 1 PRN ??? Blood Glucose Monitoring Suppl (ONE TOUCH ULTRA 2) w/Device Kit Check blood sugar once daily Kassi when fasting ??? CHLORTHALIDONE 25 MG tablet TAKE 1 TABLET BY MOUTH EVERY DAY ??? ESCITALOPRAM 20 MG tablet TAKE 1 TABLET BY MOUTH EVERY DAY ??? Glucose Blood test strip Check blood sugar once daily in AM when fasting ??? Lancets (Power.comTOUCH ULTRASOFT) lancets Check blood sugar once daily in AM when fasting ??? LISINOPRIL 40 MG tablet TAKE 1 TABLET BY MOUTH EVERY DAY ??? metFORMIN ER 500 MG 24 hr tablet Take 1 tablet (500 mg total) by mouth daily with breakfast. ??? potassium chloride CR 10 MEQ Tab CR tablet T2T PO D9 FOR 2 WEEKS, THEN RESUME TAKE ONE TABLET BY MOUTH DAILY AT 9AM ??? traMADol 50 MG tablet Take 1 tablet (50 mg total) by mouth every 6 (six) hours as needed for Pain. Indications: Chronic Pain No current facility-administered medications on file prior to visit. Allergies Allergen Reactions ??? Penicillins Rash ??? Sulfa Antibiotics Rash Objective: Filed Vitals: 01/17/22 0943 BP: 118/57 Pulse: 78 Resp: 16 Temp: 97.7 ??F (36.5 ??C) TempSrc: Skin SpO2: 97% Weight: 108.5 kg (239 lb 3.2 oz) Height: 5' 0.5 (1.537 m) Physical [...] Neck supple. Right lower leg: No edema. Left lower leg: No edema. Skin: General: Skin is warm and dry. Findings: No rash. Neurological: Mental Status: She is alert and oriented to person, place, and time. Assessment & Plan: Jolly was seen today for diabetes. Diagnoses and all orders for this visit: Type 2 diabetes mellitus with stage 3a chronic kidney disease, without long-term current use of insulin ([facility]) - A1C (BACK OFFICE) - COLLECT.CAPILLARY (FNGR,HEEL,EAR) - COMPREHENSIVE METABOLIC PANEL; Future - VENIPUNC ARM DRAW - COMPREHENSIVE METABOLIC PANEL Stage 3a chronic kidney disease ([facility]) - COMPREHENSIVE METABOLIC PANEL; Future - VENIPUNC ARM DRAW - COMPREHENSIVE METABOLIC PANEL Severe obstructive sleep apnea - Ambulatory referral to ENT Mixed hyperlipidemia Essential hypertension BMI 45.0-49.9, adult ([facility]) Current mild episode of major depressive disorder without prior episode ([facility]) Discussion/Summary: Continue current meds for T2DM, MDD, HTN, and HLD; stable today. Continue weight loss. Will refer to ENT and order CPAP for pt today for sleep apnea. Will recheck kidney function as per above. Will have pt f/u in 3 months for reassessment. Pt v/u. Sami Liriano DO documented in this encounter Plan of Treatment Upcoming Encounters Date Type Department Care Team (Late st Contact Info) Description 10/09/2024 9:30 AM DENTAL LABORATORY TECHNICIAN APPRENTICE Office Visit [facility] [address] Carlos Farris MD [facility] [address] [place] [address] 11/02/2024 10:20 AM DENTAL LABORATORY TECHNICIAN APPRENTICE Office Visit [facility] Family & Internal Medicine - [address] [phone] Sami Liriano DO [address] [place] [address] Scheduled Referrals Name Type Priority Associated Diagnoses Orde r Schedule Ambulatory referral to ENT Referral Routine Severe obstructive sleep apnea Ordered: 01/17/2022 documented as of this encounter Procedures Procedure Name Priority Date/Time Associated Diagnosis Comments COMPREHENSIVE METABOLIC PANEL Routine 01/17/2022 10:50 AM CDT Type 2 diabetes mellitus with stage 3a chronic kidney disease, without long-term current use of insulin ([facility] HHS/HCC) Stage 3a chronic kidney disease ([facility]/HCC HHS/HCC) VENIPUNC ARM DRAW Routine 01/17/2022 10: 23 AM CDT Type 2 diabetes mellitus with stage 3a chronic kidney disease, without long-term current use of insulin ([facility]/HCC HHS/HCC) Stage 3a chronic kidney disease ([facility]/HCC HHS/HCC) COLLECT.CAPILLARY (FNGR,HEEL,EAR) Routine 01/17/2022 9:43 AM CDT Type 2 diabetes mellitus with stage 3a chronic kidney disease, without long-term current use of insulin ([facility]) HEMOGLOBIN, GLYCOSYLATED Routine 01/17/2022 Type 2 diabetes mellitus with stage 3a chronic kidney disease, without long-term current use of insulin ([facility]) documented in this encounter Results * (ABNORMAL) COMPREHENSIVE METABOLIC PANEL (01/17/2022 10:50 AM CDT) [facility] SODIUM S/P/B 140 136 - 145 MMOL/L 01/17/2022 2:07 PM CDT [facility] POTASSIUM S/P/B 5.1 3.5 - 5.1 MMOL/L 01/17/2022 2:07 PM CDT -[facility] CHLORIDE S/P/B 102 98 - 107 MMOL/L 01/17/2022 2:07 PM CDT [facility] CO2 29.2 21 - 32 MMOL/L 01/17/2022 2:07 PM CDT [facility] GLUCOSE 114(H) 70 - 99 MG/DL 01/17/2022 2:07 PM CDT [facility] BUN 49(H) 6 - 24 MG/DL 01/17/2022 2:07 PM CDT [facility] CREATININE S/P/B 1.64(H) 0.55 - 1.02 MG/DL 01/17/2022 2:07 PM CDT -[facility] CALCIUM S/P/B 9.5 8.4 - 10.5 MG/DL 01/17/2022 2:07 PM CDT [facility] BILIRUBIN TOTAL S/P/B 0.7 0.2 - 1.0 MG/DL 01/17/2022 2:07 PM T [facility] ALKALINE PHOSPHATASE S/P/B 84 55 - 142 U/L 01/17/2022 2:07 PM CDT [facility] AST 18 15 - 37 U/L 01/17/2022 2:07 PM CDT [facility] ALT 28 14 - 59 U/L 01/17/2022 2:07 PM T [facility] TOTAL PROTEIN S/P/B 7.1 6.4 - 8.2 G/DL 01/17/2022 2:07 PM T [facility] ALBUMIN S/P/B 3.9 3.4 - 5.0 G/DL 01/17/2022 2:07 PM T [facility] ANION GAP 8.8 5 - 15 MMOL/L 01/17/2022 2:07 PM T [facility] Comment:REFERENCE RANGE NOT ESTABLISHED OSMOLALITY (CALC) 304 MOSM/KG 01/17/2022 2:07 PM T [facility] Comment:REFERENCE RANGE NOT ESTABLISHED EGFR NON-AFR. AMER. 32(L) >90 ML/MIN/1 .73 M2 01/17/2022 2:07 PM T [facility] EGFR AFR. AMER. 37(L) >90 ML/MIN/1 .73 M2 01/17/2022 2:07 PM T [facility] GFR NOTES THE ESTIMATED GFR IS CALCULATED USING THE 2009 CKD-EPI EQUATION. THE FOLLOWING CATEGORIES FOR GRADING RENAL FUNCTION ARE RECOMMENDED BY THE INTERNATIONAL SOCIETY OF NEPHROLOGY (KDIGO 2012 CLINICAL PRACTICE GUIDELINE). 01/17/2022 2:07 PM T [facility] Comment: G1,NORMAL OR HIGH: >89 ml/min/1.73 m2 G2,MILDLY DECREASED: 60-89 ml/min/1.73 m2 G3A,MILDLY TO MODERATELY DECREASED: 45-59 ml/min/1.73 m2 G3B,MODERATELY TO SEVERELY DECREASED: 30-44 ml/min/1.73 m2 G4,SEVERELY DECREASED: 15-29 ml/min/1.73 m2 G5,KIDNEY FAILURE: <15 ml/min/1.73 m2 01/17/2022 10:5 0 AM CDT us Smai Liriano DO LABORATORY Final Re sult Performing Organization Address City/[facility]/ZIP Co de Phone Number [facility] [place] [address] [facility] [place] [address], [place] [phone] * A1C (BACK OFFICE) (01/17/2022) HGB A1C 5.7 % [facility] 01/17/2022 us Sami Elderlowellbrooke DO LABORATORY Final Re sult Performing Organization Address City/[facility] Co de Phone Number [facility] [address] [place] [address], documented in this encounter Visit Diagnoses Diagnosis Type 2 diabetes mellitus with stage 3a chronic kidney disease, without long-term current use of insulin ([facility] HHS/[facility])- Primary Stage 3a chronic kidney disease ([facility] HHS/HCC) Severe obstructive sleep apnea Obstructive sleep apnea (adult) (pediatric) Mixed hyperlipidemia Essential hypertension Unspecified essential hypertension BMI 45.0-49.9, adult ([facility] HHS/HCC) Body Mass Index 45.0-49.9, adult Current mild episode of major depressive disorder without prior episode ([facility]) documented in this encounter Additional Health Concerns Assessment Noted Time PHQ-9 Depression Total Score: 0 10/11/19 22 10:50 AM DENTAL LABORATORY TECHNICIAN APPRENTICE documented as of this encounter Care Teams Supervisor [place] Relationship Specialty Start Date End Date Sami Liriano DO [address] [place] [phone] PCP - General FAMILY PRACTICE 12/24/19 documented as of this encounter
--- OUTSIDE RECORDS SUMMARY | 2024-09-19 12:18 | XMS_ITS | Encounter Summary ---
Author Organization [facility] Address [address] [place] [address]. [place], [place] [id number] [place] [id number] Care Team Providers Care Drying Can Worker Name Role Phone Sami Liriano DO Primary Care Provider + Reason for Visit * Reason Onset Date Comments Vaginal Bleeding 2022 Encounter Details Date Type Department Care Team (Late st Contact Info) Description 2022 Telephone [facility] Family & Internal Medicine [facility] [address] [place] [address] Sami Liriano DO [facility] [place] [address] Vaginal Bleeding Social History Tobacco Use Types Packs/Day Years [...] on file 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 No / Unsure 01/17/2022 9:42 AM CDT documented as of this encounter Progress Notes * Melanie Lance MA - 2022 3:24 PM CDT Patient informed and agreed to go to ER. States she will go to [place]. * Sami Liriano DO - 2022 3:08 PM CDT Yes, needs to go to ER. * Melanie Lance MA - 2022 2:44 PM CDT Patient is having vaginal bleeding that started 02/12/22. States about a table spoon and is on the toilet paper when she wipes. Having some cramping in her abdomen and LBP. Informed her that she will most likely need to go to ER for evaluation but I would run this by you. documented in this encounter Plan of Treatment Upcoming Encounters Date Type Department Care Team (Late st Contact Info) Description 10/09/2024 9:30 AM CUSTOMER SUCCESS ADVOCATE Office Visit [facility] [address] Carlos Farris MD [facility] [address] [place] [address] 11/02/2024 10:20 AM CUSTOMER SUCCESS ADVOCATE Office Visit [facility] Group Family & Internal Medicine - [place] [address] [place] [address] Sami Liriano DO [address] [place] [address] documented as of this encounter Visit Diagnoses Not on filedocumented in this encounter Additional Health Concerns Assessment Noted Time PHQ-9 Depression Total Score: 0 10/11/19 22 10:50 AM CUSTOMER SUCCESS ADVOCATE documented as of this encounter Care Teams Drying Can Worker Relationship Specialty Start Date End Date Sami Liriano DO [address] [place] [phone] PCP - General FAMILY PRACTICE 12/24/19 documented as of this encounter
--- OUTSIDE RECORDS SUMMARY | 2024-09-19 12:18 | XMS_ITS | Encounter Summary ---
Author Organization [facility] Address [facility] [facility]. 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 No / Unsure 12/22/2021 10:02 AM CDT documented as of this encounter Medications at Time of Discharge acetaminophen 325 MG tablet Take 2 tablets (650 mg total) by mouth every 6 (six) hours as needed for Pain. albuterol sulfate HFA 108 (90 Base) MCG/ACT inhaler 10/11/2021 2 albuterol sulfate HFA 108 (90 Base) MCG/ACT inhaler 10/11/2021 3 atorvastatin (LIPITOR) 10 MG tablet Take 1 tablet by mouth nightly. 05/19/2021 2 benzonatate 100 MG capsuleIndications :Cough Take 1-2 capsules by mouth tid prn 40 capsule 10/06/2021 2 Blood Glucose Monitoring Suppl (ONE TOUCH ULTRA 2) w/Device KitIndications:Typ e 2 diabetes mellitus without complication, without long-term current use of insulin ([facility]) Check blood sugar once daily in AM when fasting 1 kit 08/07/2021 4 CHLORTHALIDONE 25 MG tabletIndications: Essential hypertension TAKE 1 TABLET BY MOUTH EVERY DAY 90 tablet 1 09/20/2021 2 ESCITALOPRAM 20 MG tabletIndications: Current mild episode of major depressive disorder without prior episode ([facility]) TAKE 1 TABLET BY MOUTH EVERY DAY 90 tablet 1 09/20/2021 2 FUROSEMIDE 20 MG tabletIndications: Essential hypertension TAKE ONE TABLET BY MOUTH DAILY AT 9AM 60 tablet 12/22/2021 2 Glucose Blood test stripIndications:T ype 2 diabetes mellitus without complication, without long-term current use of insulin ([facility]) Check blood sugar once daily in AM when fasting 100 strip 11 08/07/2021 4 Lancets (ONETOUCH ULTRASOFT) lancetsIndications :Type 2 diabetes mellitus without complication, without long-term current use of insulin ([facility]) Check blood sugar once daily in AM when fasting 1 each 08/07/2021 4 LISINOPRIL 40 MG tabletIndications: Essential hypertension TAKE 1 TABLET BY MOUTH EVERY DAY 90 tablet 1 09/20/2021 2 metFORMIN ER 500 MG 24 hr tabletIndications: Type 2 diabetes mellitus without complication, without long-term current use of insulin ([facility]) Take 1 tablet (500 mg total) by mouth daily with breakfast. 180 tablet 1 08/08/2021 2 OMEPRAZOLE 40 MG capsuleIndications :Gastroesophageal reflux disease without esophagitis TAKE ONE CAPSULE BY MOUTH DAILY AT 9AM 60 capsule 12/22/2021 2 potassium chloride CR 10 MEQ Tab CR tabletIndications: Bilateral lower extremity edema T2T PO D9 FOR 2 WEEKS, THEN RESUME TAKE ONE TABLET BY MOUTH DAILY AT 9AM 60 tablet 12/22/2021 2 traMADol 50 MG tabletIndications: Chronic Pain Take 1 tablet (50 mg total) by mouth every 6 (six) hours as needed for Pain. Indications: Chronic Pain 60 tablet 09/15/2021 2 documented as of this encounter Plan of Treatment Upcoming Encounters Date Type Department Care Team (Late st Contact Info) Description 10/09/2024 9:30 AM ATG JAVA DEVELOPER Office Visit [facility] [phone] Carlos Farris MD [facility] [address] [place] [address] 11/02/2024 10:20 AM ATG JAVA DEVELOPER Office Visit [facility] Family & Internal Medicine - [address] [phone] Sami Liriano DO [address] [place] [address] documented as of this encounter Procedures Procedure Name Priority Date/Time Associated Diagnosis Comments HC PROTHROMBIN TIME (PT)-90 Routine 12/22/2021 12:00 PM CDT documented in this encounter Results * LUPUS ANTICOAGULANT (12/22/2021 12:00 PM CDT) CARDIOLIPIN AB IGG <2.0 <20.0 GPL 2021 7:01 AM CDT [facility] ANTONINA LIZARRAGA Comment: U/mL Value ?Interpretation ----- ? < 20.0 ? Antibody not detected > or = 20.0 ?Antibody detected CARDIOLIPIN AB IGM 4.4 <20.0 MPL 2021 7:01 AM CDT [facility] ANTONINA LIZARRAGA Comment: U/mL Value ?Interpretation ----- ? < 20.0 ? Antibody not detected > or = 20.0 ?Antibody detected The antiphospholipid antibody syndrome (APS) is a clinical-pathologic correlation that includes a clinical event (e.g. arterial or venous thrombosis, morbidity) and persistent positive antiphospholipid antibodies (IgM or IgG LIONEL >40 MPL/GPL-U/mL, IgM or IgG anti-b2GPI antibodies or a lupus anticoagulant). ??International consensus guidelines for APS suggest waiting at least 12 weeks before retesting to confirm antibody persistence. The Systemic Lupus International Collaborating [facility] immunological classification criteria for systemic lupus erythematosus (SLE) include testing for isotype IgA, which has yet to be incorporated into APS criteria. Low level antiphospholipid antibodies may sometimes be detected in the setting of infection, drug therapy or aging. For additional information, please refer to http://education.[employer]/faq/BFL564 (This link is being provided for informational/ educational purposes only.) Test Performed by Jesse Vidales, [employer] [place], [address] [place], [place] Grzegorz Gomez M.D., Ph.D., Director of Laboratories , CLIA [id number] CARDIOLIPIN AB IGA 3.6 <20.0 APL 2021 7:01 AM CDT [facility] ANTONINA LIZARRAGA Comment: U/mL Value ?Interpretation ----- ? < 20.0 ? Antibody not detected > or = 20.0 ?Antibody detected LUPUS ANTICOAGULANT REPORT 12/27 8:10 PM CDT [facility] ANTONINA LIZARRAGA Comment: A Lupus Anticoagulant is not detected. Reference Range: ??Not Detected For additional information, please refer to http://[employer]/faq/AXN38p7 (This link is being provided for informational/ educational purposes only.) This interpretation is based on the following test results. PTT (LUPUS ANTICOAGULANT) 38 <=40 sec 12/27/2021 8:10 PM CDT [facility] ANTONINA LLSacha HEXAGONAL PHASE CONF REPORT 11/30 8:10 PM CDT [facility] ANTONINA LIZARRAGA Comment: Not indicated ADDITIONAL TESTING REPORT 2021 8:10 PM CDT [facility] ANTONINA LIZARRAGA Comment: Not indicated Test Performed by Happy Cos[facility]se [employer] [place], [address] [place], [place] Grzegorz Gomez M.D., Ph.D., Director of Laboratories , CLIA [id number] DRVVT SCREEN 33 <=45 sec 12/27/2021 8:10 PM CDT [facility] ANTONINA LIZARRAGA DRVVT REPORT 12/27/2021 8:10 PM CDT [facility] ANTONINA MERRITTY Comment: Additional testing is not indicated. DRVVT MIX INTERPRETATION REPORT 12/27/2021 8:10 PM CDT [facility] POLO-CHANTI LLY Comment: Not Indicated 12/22/2021 12:0 0 PM CDT Chris Bowen MD LABORATORY Final Result Performing Organization Address City/State/[facility] Co de Phone Number [facility] [address] [place] [address], [place] [phone] documented in this encounter Visit Diagnoses Not on filedocumented in this encounter Additional Health Concerns Assessment Noted Time PHQ-9 Depression Total Score: 0 10/11/19 22 10:50 AM ATG JAVA DEVELOPER documented as of this encounter Care Teams Slasher Runner Relationship Specialty Start Date End Date Sami Liriano DO [address] [place] [address] PCP - General FAMILY PRACTICE 12/24/19 documented as of this encounter
--- OUTSIDE RECORDS SUMMARY | 2024-09-19 12:18 | XMS_ITS | Encounter Summary ---
Author Organization [facility] Address Critical access hospital6 [facility]. 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 Not on [...] st Contact Info) Description 10/09/2024 9:30 AM SCREENING TECHNICIAN Office Visit [facility] [phone] Carlos Farris MD [address] [facility] [address] [place] [address] 11/02/2024 10:20 AM SCREENING TECHNICIAN Office Visit [facility] Group Family & Internal Medicine - [address] [phone] Sami Liriano DO [address] [place] [address] documented as of this encounter Visit Diagnoses Not on filedocumented in this encounter Additional Health Concerns Assessment Noted Time PHQ-9 Depression Total Score: 0 10/11/19 10:50 AM SCREENING TECHNICIAN documented as of this encounter Care Teams Juvenile Probation Officer Relationship Specialty Start Date End Date Sami Liriano DO [address] [place] [address] PCP - General FAMILY PRACTICE 12/24/19 documented as of this encounter
--- OUTSIDE RECORDS SUMMARY | 2024-09-19 12:18 | XMS_ITS | Encounter Summary ---
Author Organization [facility] Address [address] [place] [address]. [place], [place] [address] [place] [address] Care Team Providers Care Wastewater Treatment Supervisor Name Role Phone Sami Liriano DO Primary Care Provider + Reason for Visit * Reason Onset Date Comments Results 01/19/2022 Encounter Details Date Type Department Care Team (Late st Contact Info) Description 01/19/2022 Telephone [facility] Family & Internal Medicine [phone] [place] [phone] Sami Liriano DO [facility] [place] [address] Results Social History Tobacco Use Types [...] on file Legal Sex Female 12:43 PM HOME HEALTH CLINICAL LIAISON Gender Identity Female 12/18/2021 6:31 AM CDT [...] as of this encounter Progress Notes * Poppy Alas - 01/23/2022 9:29 AM CDT Patient informed. * Radha Oglesby MA - 01/19/2022 3:10 PM CDT lmtc 01/19/22 * Radha Oglesby MA - 01/19/2022 2:59 PM CDT ----- Message from Sami Liriano DO sent at 01/19/2022 1:13 PM CDT ----- Kidney function is improved from previous check; will recheck at next OV. documented in this encounter Plan of Treatment Upcoming Encounters Date Type Department Care Team (Late st Contact Info) Description 10/09/2024 9:30 AM HOME HEALTH CLINICAL LIAISON Office Visit [facility]-[address] [phone] Carlos Farris MD [facility] [address] [place] [address] 11/02/2024 10:20 AM HOME HEALTH CLINICAL LIAISON Office Visit [facility] Family & Internal Medicine - [address] [phone] [place] [address] [place] [address] documented as of this encounter Visit Diagnoses Not on filedocumented in this encounter Additional Health Concerns Assessment Noted Time PHQ-9 Depression Total Score: 0 10/11/19 22 10:50 AM HOME HEALTH CLINICAL LIAISON documented as of this encounter Care Teams Wastewater Treatment Supervisor Relationship Specialty Start Date End Date Sami Liriano DO [address] [place] [phone] PCP - General FAMILY PRACTICE 12/24/19 documented as of this encounter
--- OUTSIDE RECORDS SUMMARY | 2024-09-19 12:18 | XMS_ITS | Encounter Summary ---
Author Organization [facility] Address [address] [place] [address]. 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 [...] st Contact Info) Description 10/09/2024 9:30 AM SAWMILL TALLY CLERK Office Visit [facility]-[address] [phone] Carlos Farris MD [address] [facility] [address] [place] [address] 11/02/2024 10:20 AM SAWMILL TALLY CLERK Office Visit [facility] Family & Internal Medicine - [address] [phone] Sami Liriano DO [address] [place] [address] documented as of this encounter Procedures Procedure Name Priority Date/Time Associated Diagnosis Comments OUTSIDE LAB (SCAN ORDER) 2022 OUTSIDE LAB (SCAN ORDER) 2022 documented in this encounter Results * OUTSIDE LAB (SCAN) (2022) 2022 Narrative 2022 Ordered by an unspecified provider. us Documents Scanned SCANNING Final Result * OUTSIDE LAB (SCAN) (2022) 2022 Narrative 2022 Ordered by an unspecified provider. us Documents Scanned SCANNING Final Result documented in this encounter Visit Diagnoses Not on filedocumented in this encounter Additional Health Concerns Assessment Noted Time PHQ-9 Depression Total Score: 0 10/11/19 10:50 AM SAWMILL TALLY CLERK documented as of this encounter Care Teams Dairy Cattle Farm Worker Relationship Specialty Start Date End Date Sami Liriano DO [address] [place] [address] PCP - General FAMILY PRACTICE 12/24/19 documented as of this encounter
--- OUTSIDE RECORDS SUMMARY | 2024-09-19 12:18 | XMS_ITS | Encounter Summary ---
Author Organization [facility] Address [address] [place] [address]. 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 [address] [place] [address] 11/02/2024 10:20 AM INFRASTRUCTURE CONSULTANT Office Visit [facility] Family & Internal Medicine - [address] [phone] Saim Liriano DO [address] [place] [address] documented as of this encounter Visit Diagnoses Not on filedocumented in this encounter Additional Health Concerns Assessment Noted Time PHQ-9 Depression Total Score: 0 10/11/19 22 10:50 AM INFRASTRUCTURE CONSULTANT documented as of this encounter Care Teams Desizing Pad Operator Relationship Specialty Start Date End Date Sami Liriano DO [address] [place] [address] PCP - General FAMILY PRACTICE 12/24/19 documented as of this encounter
--- OUTSIDE RECORDS SUMMARY | 2024-09-19 12:18 | XMS_ITS | Encounter Summary ---
Author Organization [facility] Address [facility]. [place], [place] [address] [place] [address] Care Team Providers Care Commercial Energy Rater Name Role Phone Sami Liriano DO Primary Care Provider + Encounter Details Date Type Department Care Team (Latest Contact Info) Description 04/19/2022 - 04/19/2022 11:59 PM CDT Hospital Encounter [facility] [address] [place] [address] Sami Liriano DO [facility] [place] [address] Discharge Disposition: Home or Self [...] on file Legal Sex Female 12:43 PM ASSISTANT QUALITY MANAGER Gender Identity Female 12/18/2021 6:31 AM CDT Sexual Orientation Straight 01/15/2022 6: 11 AM CDT 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 05/19/2021 2 Blood Glucose Monitoring Suppl (ONE TOUCH ULTRA 2) w/Device KitIndications:Typ e 2 diabetes mellitus without complication, without long-term current use of insulin ([facility]) Check blood sugar once daily in AM when fasting 1 kit 08/07/2021 4 chlorthalidone (HYGROTEN) 25 MG tabletIndications: Essential hypertension Take 1 tablet (25 mg total) by mouth daily. 90 tablet 1 04/19/2022 3 ESCITALOPRAM 20 MG tabletIndications: Current mild episode of major depressive disorder without prior episode ([facility]) TAKE 1 TABLET BY MOUTH EVERY DAY 90 tablet 1 03/26/2022 2 Glucose Blood test stripIndications:T ype 2 diabetes mellitus without complication, without long-term current use of insulin ([facility]) Check blood sugar once daily in AM when fasting 100 strip 11 08/07/2021 4 Lancets (ONETOUCH ULTRASOFT) lancetsIndications :Type 2 diabetes mellitus without complication, without long-term current use of insulin ([facility]) Check blood sugar once daily in AM when fasting 1 each 11 08/07/2021 4 lisinopril (PRINIVIL) 40 MG tabletIndications: Essential hypertension TAKE ONE TABLET BY MOUTH DAILY AT 9AM 180 tablet 1 04/19/2022 2 OMEPRAZOLE 40 MG capsuleIndications :Gastroesophageal reflux disease without esophagitis TAKE ONE CAPSULE BY MOUTH DAILY AT 9AM 90 capsule 02/15/2022 3 potassium chloride CR 10 MEQ Tab CR tabletIndications: Bilateral lower extremity edema TAKE 2 TABLETS BY MOUTH DAILY FOR 2 WEEKS, THEN RESUME ONE TABLET DAILY 90 tablet 1 03/26/2022 2 traMADol 50 MG tabletIndications: Chronic Pain Take 1 tablet (50 mg total) by mouth every 6 (six) hours as needed for Pain. Indications: Chronic Pain 60 tablet 09/15/2021 2 documented as of this encounter Plan of Treatment Upcoming Encounters Date Type Department Care Team (Late st Contact Info) Description 10/09/2024 9:30 AM ASSISTANT QUALITY MANAGER Office Visit [facility] [phone] Carlos Farris MD [facility] [address] [place] [address] 11/02/2024 10:20 AM ASSISTANT QUALITY MANAGER Office Visit [facility] Family & Internal Medicine - [address] [phone] Sami Liriano DO [address] [place] [address] documented as of this encounter Visit Diagnoses Not on filedocumented in this encounter Additional Health Concerns Assessment Noted Time PHQ-9 Depression Total Score: 0 10/11/19 22 10:50 AM ASSISTANT QUALITY MANAGER documented as of this encounter Care Teams Commercial Energy Rater Relationship Specialty Start Date End Date Sami Liriano DO [address] [place] [address] PCP - General FAMILY PRACTICE 12/24/19 documented as of this encounter
--- OUTSIDE RECORDS SUMMARY | 2024-09-19 12:18 | XMS_ITS | Encounter Summary ---
Author Organization [facility] Address [address] [place] [address]. [place], [place] [address] [place] [address] Care Team Providers Care Fiber Technologist Name Role Phone Sami Liriano Primary Care Provider + Reason for Visit * Reason Comments Dilated Eye Exam (SCAN) Encounter Details Date Type Department Care Team ([facility] Contact Info) Description 04/26/2022 Scan HEALTH INFO SRVCS Scanned, Documents Dilated Eye Exam (SCAN) Social History Tobacco Use Types Packs/Day [...] on file Legal Sex Female 12:43 PM BOX REPAIRER Gender Identity Female 12/18/2021 6:31 AM CDT Sexual Orientation Straight 01/15/2022 6: 11 AM CDT 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 Not [...] st Contact Info) Description 10/09/2024 9:30 AM BOX REPAIRER Office Visit [facility]-[address] [phone] Carlos Farris MD [address] [facility] [address] [place] [address] 11/02/2024 10:20 AM BOX REPAIRER Office Visit [facility] Family & Internal Medicine - [address] [phone] Sami Liriano DO [address] [place] [address] documented as of this encounter Procedures Procedure Name Priority Date/Time Associated Diagnosis Comments DIABETIC RETINOPATHY EXAM (NEGATIVE)(SCAN ORDER) Routine 04/26/2022 documented in this encounter Results * DIABETIC RETINOPATHY EXAM (NEGATIVE)(SCAN) (04/26/2022) us Documents Scanned SCANNING Final Result [facility] documented in this encounter Visit Diagnoses Not on filedocumented in this encounter Additional Health Concerns Assessment Noted Time PHQ-9 Depression Total Score: 0 10/11/19 22 10:50 AM BOX REPAIRER documented as of this encounter Care Teams Fiber Technologist Relationship Specialty Start Date End Date Sami Liriano DO [address] [place] [address] PCP - General FAMILY PRACTICE 12/24/19 documented as of this encounter
--- OUTSIDE RECORDS SUMMARY | 2024-09-19 12:18 | XMS_ITS | Encounter Summary ---
Author Organization [facility] Address [address] [place] [address]. [place], [place] [address] [place] [address] Care Team Providers Care Manufacturing Tech Name Role Phone Sami Liriano DO Primary Care Provider + Reason for Visit * Reason Onset Date Comments Lab Results 04/23/2022 Encounter Details Date Type Department Care Team (Late st Contact Info) Description 04/23/2022 Telephone [facility] Family & Internal Medicine [facility] [address] [place] [address] Sami Liriano DO [facility] [place] [address] Lab Results Social History Tobacco Use [...] on file Legal Sex Female 12:43 PM PANEL GLUER Gender Identity Female 12/18/2021 6:31 AM CDT [...] Progress Notes * Deb Varela RN - 04/27/2022 12:00 PM CDT Patient notified and verbalized understanding. Opportunity given for all questions to be answered, no further needs voiced at this time. LL-04/27/22 * Radha Oglesby MA - 04/25/2022 3:13 PM CDT lmtc 04/25/22 * Deb Varela RN - 04/23/2022 5:13 PM CDT Attempted to call the patient, was unable to reach them at this time. Left a message requesting a call back. LL-04/23/22 * Deb Varela RN - 04/23/2022 5:11 PM CDT ----- Message from Sami Liriano DO sent at 04/22/2022 10:53 AM CDT ----- Results are all stable; can repeat with regular labs. documented in this encounter Plan of Treatment Upcoming Encounters Date Type Department Care Team (Late st Contact Info) Description 10/09/2024 9:30 AM PANEL GLUER Office Visit [facility] [place] [address] Carlos Farris MD [facility] [address] [place] [address] 11/02/2024 10:20 AM PANEL GLUER Office Visit [facility] Family & Internal Medicine - [address] [phone] Sami Liriano DO [address] [place] [address] documented as of this encounter Visit Diagnoses Not on filedocumented in this encounter Additional Health Concerns Assessment Noted Time PHQ-9 Depression Total Score: 0 10/11/19 22 10:50 AM PANEL GLUER documented as of this encounter Care Teams Manufacturing Tech Relationship Specialty Start Date End Date Sami Liriano DO [address] [place] [address] PCP - General FAMILY PRACTICE 12/24/19 documented as of this encounter
--- OUTSIDE RECORDS SUMMARY | 2024-09-19 12:18 | XMS_ITS | Encounter Summary ---
Author Organization [facility] Address [address] [place] [address]. [place], [place] [id number] [place] [address] Care Team Providers Care Boilermaker'S Assistant Name Role Phone Sami Akins DO Primary Care Provider + Reason for Visit * Reason Onset Date Comments Question 02/15/2022 Encounter Details Date Type Department Care Team (Late st Contact Info) Description 02/15/2022 Telephone [facility] Family & Internal Medicine [address] [place] [address] Sami Akins DO [facility] [place] [address] Question Social History Tobacco Use [...] on file Legal Sex Female 12:43 PM GEM STONE CUTTER Gender Identity Female 12/18/2021 6:31 AM CDT [...] of this encounter Progress Notes * Sami Akins DO - 02/15/2022 11:35 AM CDT Noted; thank you. * RT VeronicaR - 02/15/2022 9:11 AM CDT Patient called to say she went to the ER yesterday as requested. She was discharged with an UTI andgiven antibiotics, wanted Dr. akins to be notified documented in this encounter Plan of Treatment Upcoming Encounters Date Type Department Care Team (Late st Contact Info) Description 10/09/2024 9:30 AM GEM STONE CUTTER Office Visit [facility] [phone] Carlos Farris MD [facility] [address] [place] [address] 11/02/2024 10:20 AM GEM STONE CUTTER Office Visit [facility] Family & Internal Medicine - [address] [phone] Sami Akins DO [address] [place] [address] documented as of this encounter Visit Diagnoses Not on filedocumented in this encounter Additional Health Concerns Assessment Noted Time PHQ-9 Depression Total Score: 0 10/11/19 22 10:50 AM GEM STONE CUTTER documented as of this encounter Care Teams Boilermaker'S Assistant Relationship Specialty Start Date End Date Sami Akins DO [address] [place] [address] PCP - General FAMILY PRACTICE 12/24/19 documented as of this encounter
--- OUTSIDE RECORDS SUMMARY | 2024-09-19 12:18 | XMS_ITS | Encounter Summary ---
Author Organization [facility] Address [address] [place] [address]. [place], [place] [address] [place] [address] Care Team Providers Care Aircraft General Repair Mechanic Name Role Phone Sami Liriano DO Primary Care Provider + Reason for Visit * Reason Comments Diabetes Follow up Encounter Details Date Type Department Care Team (Late st Contact Info) Description 04/19/2022 8:20 AM CDT Office Visit [facility] Family & Internal Medicine [phone] [place] [address] Sami Liriano DO [facility] [place] [address] Diabetes (Follow up ) Social History Tobacco Use Types [...] on file Legal Sex Female 12:43 PM SECURITY SYSTEMS SPECIALIST Gender Identity Female 12/18/2021 6:31 AM CDT Sexual Orientation Straight 01/15/2022 6: 11 AM CDT 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 No / Unsure 04/19/2022 7:46 AM CDT documented as of this encounter Last Filed Vital Signs Vital Sign Reading Time Taken Comments Blood Pressure 130/60 04/19/2022 8:20 AM CDT Pulse 73 04/19/2022 8:20 AM CDT Temperature 36.8 ??C (98.3 ??F) 04/19/2022 8:20 AM CD T Respiratory Rate 16 04/19/2022 8:20 AM CDT Oxygen Saturation 96% 04/19/2022 8:20 AM CDT Inhaled Oxygen Concentration - - Weight 105.7 kg (233 lb 1.6 oz) 04/19/2022 8:20 AM CDT Height 153.7 cm (5' 0.5 ) 04/19/2022 8:20 AM CDT Body Mass Index 44.77 04/19/2022 8:20 AM CDT documented in this encounter Patient Instructions * Patient Instructions* Sami Liriano DO - 04/19/2022 8:20 AM CDT [facility] [phone] documented in this encounter Progress Notes * Sami Liriano DO - 04/19/2022 8:20 AM CDT Images from the original note were not included. GENERAL OFFICE VISIT Encounter Date: 04/19/2022 Chief Complaint: 67-year-old female presents for Diabetes (Follow up ) HPI: Patient has Type 2 Diabetes. Patient has had diabetes for less than 1 year. Medications include metformin ER. BS logs range: 100-120. Patient's weight has gone down 4 lbs. Current symptoms include none. Pt is noting some kristin horses in her toes. Patient presents for follow-up on essential hypertension. Patient has had hypertension for many years. Current medications include lisinopril and chlorthalidone. Pt's BP is well controlled. No side effects noted from medications. Pt does have CKD Pt was referred to ENT and had a CPAP ordered at last OV. Pt states she hasn't heard from either ofthese. ?? Review of Systems Constitutional: Negative for [...] depressive disorder without prior episode (CMS/HCC) ??? Counseling on health promotion and disease prevention ??? Generalized osteoarthritis of multiple sites ??? Inflammatory arthritis ??? Urinary tract infection Past Medical History: Diagnosis Date ??? Arthritis ??? Arthritis of left knee 11/08/2019 ??? Depression ??? GERD (gastroesophageal reflux disease) ??? Hypertension ??? Overactive bladder Past Surgical History: Procedure Laterality Date ??? ANKLE SURGERY left ??? SECTION ??? COLONOSCOPY N/A 04/27/2020 COLONOSCOPY WITH BIOPSY X 3 performed by Joel Keenan MD at [facility] OR ??? EGD ??? HERNIA REPAIR ??? [...] Not on file Occupational History ??? 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 Smoking status: Former Smoker Packs/day: 1.00 Years: 12.00 Pack years: 12.00 Types: Cigarettes Quit date: 1976 Years since quittin.5 ??? Smokeless tobacco: Never Used Vaping Use [...] tablet Take 1 tablet by mouth nightly. ??? Blood Glucose Monitoring Suppl (Quantcast ULTRA 2) w/Device Kit Check blood sugar once daily Kassi when fasting 1 kit 0 ??? chlorthalidone (HYGROTEN) 25 MG tablet Take 1 tablet (25 mg total) by mouth daily. 90 tablet 1 ??? ESCITALOPRAM 20 MG tablet TAKE 1 TABLET BY MOUTH EVERY DAY 90 tablet 1 ??? Glucose Blood test strip Check blood sugar once daily in AM when fasting 100 strip 11 ??? Lancets (ONETOUCH ULTRASOFT) lancets Check blood sugar once daily in AM when fasting 1 each 11 ??? LISINOPRIL 40 MG tablet TAKE 1 TABLET BY MOUTH EVERY DAY 90 tablet 1 ??? OMEPRAZOLE 40 MG capsule TAKE ONE CAPSULE BY MOUTH DAILY AT 9AM 90 capsule 0 ??? potassium chloride CR 10 MEQ Tab CR tablet TAKE 2 TABLETS BY MOUTH DAILY FOR 2 WEEKS, THEN RESUME ONE TABLET DAILY 90 tablet 1 ??? traMADol 50 MG tablet Take 1 [...] tablet Take 1 tablet by mouth nightly. ??? Blood Glucose Monitoring Suppl (ONE TOUCH ULTRA 2) w/Device Kit Check blood sugar once daily Kassi when fasting ??? chlorthalidone (HYGROTEN) 25 MG tablet Take 1 tablet (25 mg total) by mouth daily. ??? ESCITALOPRAM 20 MG tablet TAKE 1 TABLET BY MOUTH EVERY DAY ??? Glucose Blood test strip Check blood sugar once daily in AM when fasting ??? Lancets (ONETOUCH ULTRASOFT) lancets Check blood sugar once daily in AM when fasting ??? LISINOPRIL 40 MG tablet TAKE 1 TABLET BY MOUTH EVERY DAY ??? OMEPRAZOLE 40 MG capsule TAKE ONE CAPSULE BY MOUTH DAILY AT 9AM ??? potassium chloride CR 10 MEQ Tab [...] ??? Sulfa Antibiotics Rash Objective: Filed Vitals: 04/19/22 0820 BP: 130/60 Pulse: 73 Resp: 16 Temp: 98.3 ??F (36.8 ??C) TempSrc: Skin SpO2: 96% Weight: 105.7 kg (233 lb 1.6 oz) Height: 5' 0.5 (1.537 m) Physical [...] disease, without long-term current use of insulin ([facility]) - A1C (BACK OFFICE) - COLLECT.CAPILLARY (FNGR,HEEL,EAR) Essential hypertension Body mass index (BMI) 40.0-44.9, adult (CMS/HCC) Stage 3a chronic kidney disease (CMS/HCC) - COMPREHENSIVE METABOLIC PANEL; Future - VENIPUNC ARM DRAW - COMPREHENSIVE METABOLIC PANEL Severe obstructive sleep apnea Need for hepatitis C screening test - HEPATITIS C AB ([facility] ONLY); Future - HEPATITIS C AB ([facility] ONLY) Discussion/Summary: Continue current meds for HTN and CKD; will recheck labs today. Continue weight loss and will do trial without metformin. Given info for ENT and will resend CPAP order. Will have pt f/u in 3 months for reassessment. Pt v/u. Sami Liriano, DO documented in this encounter Plan of Treatment Upcoming Encounters Date Type Department Care Team (Late st Contact Info) Description 10/09/2024 9:30 AM SECURITY SYSTEMS SPECIALIST Office Visit [facility] [phone] Carlos Farris MD [address] [facility] [address] [place] [address] 11/02/2024 10:20 AM SECURITY SYSTEMS SPECIALIST Office Visit [facility] Family & Internal Medicine - [address] [phone] Sami Liriano DO [address] [place] [address] documented as of this encounter Procedures Procedure Name Priority Date/Time Associated Diagnosis Comments COMPREHENSIVE METABOLIC PANEL Routine 04/19/2022 9:39 AM CDT Stage 3a chronic kidney disease (CMS/HCC HHS/HCC) HEPATITIS C ANTIBODY Routine 04/19/2022 9:39 AM CDT Need for hepatitis C screening test VENIPUNC ARM DRAW Routine 04/19/2022 9:1 8 AM CDT Stage 3a chronic kidney disease (CMS/HCC HHS/HCC) COLLECT.CAPILLARY (FNGR,HEEL,EAR) Routine 04/19/2022 8:30 AM CDT Type 2 diabetes mellitus with stage 3a chronic kidney disease, without long-term current use of insulin (CMS/HCC HHS/HCC) HEMOGLOBIN, GLYCOSYLATED Routine 04/19/2022 Type 2 diabetes mellitus with stage 3a chronic kidney disease, without long-term current use of insulin (CMS/HCC HHS/HCC) documented in this encounter Results * HEPATITIS C AB ([facility] ONLY) (04/19/2022 9:39 AM CDT) HEPATITIS C AB NON-REACTI VE NON-REACT CHELE 04/19/2022 6:57 PM CDT [facility] Comment: ANTIBODIES TO HCV NOT DETECTED. DOES NOT EXCLUDE THE POSSIBILITY OF EXPOSURE TO HCV. 04/19/2022 9:39 AM CDT Sami Liriano DO LABORATORY Final Re sult [facility] [address] [place] [address], [phone] * (ABNORMAL) COMPREHENSIVE METABOLIC PANEL (04/19/2022 9:39 AM CDT) Pathologist [facility] SODIUM S/P/B 141 136 - 145 MMOL/L 04/19/2022 3:15 PM CDT [facility] POTASSIUM S/P/B 5.0 3.5 - 5.1 MMOL/L 04/19/2022 3:15 PM CDT [facility] CHLORIDE S/P/B 107 98 - 107 MMOL/L 04/19/2022 3:15 PM CDT [facility] CO2 23.0 21 - 32 MMOL/L 04/19/2022 3:15 PM CDT [facility] GLUCOSE 110(H) 70 - 99 MG/DL 04/19/2022 3:15 PM CDT [facility] BUN 38(H) 7 - 18 MG/DL 04/19/2022 3:15 PM CDT [facility] CREATININE S/P/B 1.65(H) 0.55 - 1.02 MG/DL 04/19/2022 3:15 PM CDT [facility] CALCIUM S/P/B 9.2 8.4 - 10.5 MG/DL 04/19/2022 3:15 PM CDT [facility] BILIRUBIN TOTAL S/P/B 0.8 0.2 - 1.0 MG/DL 04/19/2022 3:15 PM CD[address] [facility] ALKALINE PHOSPHATASE S/P/B 81 55 - 142 U/L 04/19/2022 3:15 PM CD[address] [facility] AST 18 15 - 37 U/L 04/19/2022 3:15 PM CD[address] [facility] ALT 25 14 - 59 U/L 04/19/2022 3:15 PM CD[address] [facility] TOTAL PROTEIN S/P/B 7.3 6.4 - 8.2 G/DL 04/19/2022 3:15 PM CD[address] [facility] ALBUMIN S/P/B 4.2 3.4 - 5.0 G/DL 04/19/2022 3:[address] [facility] ANION GAP 11.0 5 - 15 MMOL/L 04/19/2022 3:15 PM [address] [facility] Comment:REFERENCE RANGE NOT ESTABLISHED OSMOLALITY (CALC) 302 MOSM/KG 022 3:15 PM [address] [facility] Comment:REFERENCE RANGE NOT ESTABLISHED GFR ESTIMATE 33(L) >90 ML/MIN/1. 73 M2 04/19/2022 3:15 PM [address] [facility] GFR NOTES GFR REFERENCE S: 04/19/2022 3:15 PM [address] [facility] Comment: THE ESTIMATED GFR IS CALCULATED [...] ml/min/1.73 m2 G5,KIDNEY FAILURE: <15 ml/min/1.73 m2 04/19/2022 9:39 AM CDT us Sami Liriano DO LABORATORY Final Re sult Performing Organization Address City/[facility]/ZIP Co de Phone Number [facility] [place] [address] [facility] [place] [address], [place] [phone] * A1C (BACK OFFICE) (04/19/2022) HGB A1C 5.8 % [facility] 04/19/2022 us Sami Liriano DO LABORATORY Final Re sult Performing Organization Address City/[facility] Co de Phone Number [facility] [address] [place] [address], documented in this encounter Visit Diagnoses Diagnosis Type 2 diabetes mellitus with stage 3a chronic kidney disease, without long-term current use of insulin ([facility])- Primary Essential hypertension Unspecified essential hypertension Body mass index (BMI) 40.0-44.9, adult ([facility] HHS/HCC) Stage 3a chronic kidney disease ([facility]) Severe obstructive sleep apnea Obstructive sleep apnea (adult) (pediatric) Need for hepatitis C screening test Special screening examination for other specified viral diseases documented in this encounter Additional Health Concerns Assessment Noted Time PHQ-9 Depression Total Score: 0 10/11/19 22 10:50 AM SECURITY SYSTEMS SPECIALIST documented as of this encounter Care Teams Aircraft General Repair Mechanic Relationship Specialty Start Date End Date Sami Liriano DO [address] [place] [address] PCP - General FAMILY PRACTICE 12/24/19 documented as of this encounter
--- OUTSIDE RECORDS SUMMARY | 2024-09-19 12:18 | XMS_ITS | Encounter Summary ---
Author Organization [facility] Address [facility]. 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 Not on [...] st Contact Info) Description 10/09/2024 9:30 AM TOOLROOM MACHINIST Office Visit [facility] [phone] Carlos Farris MD [address] [facility] [address] [place] [address] 11/02/2024 10:20 AM TOOLROOM MACHINIST Office Visit [facility] Family & Internal Medicine - [address] [phone] Sami Liriano DO [address] [place] [address] documented as of this encounter Visit Diagnoses Not on filedocumented in this encounter Additional Health Concerns Assessment Noted Time PHQ-9 Depression Total Score: 0 10/11/19 10:50 AM TOOLROOM MACHINIST documented as of this encounter Care Teams Environmental Services Lead Relationship Specialty Start Date End Date Sami Liriano DO [address] [place] [address] PCP - General FAMILY PRACTICE 12/24/19 documented as of this encounter
--- OUTSIDE RECORDS SUMMARY | 2024-09-19 12:18 | XMS_ITS | Encounter Summary ---
Author Organization [facility] Address [address] [place] [address]. [place], [place] [address] [place] [address] Care Team Providers Care Passenger Rate Clerk Name Role Phone Sami Gimenez DO Primary Care Provider + Reason for Visit * Reason Onset Date Comments Refill Request 03/27/2022 Encounter Details Date Type Department Care Team (Late st Contact Info) Description 03/27/2022 Telephone [facility] Family & Internal Medicine [facility] [address] [place] [address] Sami Gimenez DO 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 Not on file Not on franck e documented as of this encounter Progress Notes * Radha Ogelsby MA - 03/27/2022 8:21 AM CDT Refill request received from Pharmacy Last visit with SAMI GIMENEZ in FAMILY PRACTICE was on: 01/17/2022 in [facility] Future Appointments Date Time Provider Department Center 04/19/2022 8:20 AM Sami Gimenez, DO [id number] - [place], [place] - [address] [facility] [address] [facility] - KEVIN Velásquez - [address] [facility] [address] [facility] [address] [place] [address] Current Outpatient Medications: ??? acetaminophen 325 MG tablet, Take 325 mg by mouth. Take 2 in the am and 2 tabs in the pm and 1 PRN, Disp: , Rfl: ??? Blood Glucose Monitoring Suppl (ONE TOUCH ULTRA 2) w/Device Kit, Check blood sugar once daily in AM when fasting, Disp: 1 kit, Rfl: 0 ??? CHLORTHALIDONE 25 MG tablet, TAKE 1 TABLET BY MOUTH EVERY DAY, Disp: 90 tablet, Rfl: 1 ??? ESCITALOPRAM 20 MG tablet, TAKE 1 TABLET BY MOUTH EVERY DAY, Disp: 90 tablet, Rfl: 1 ??? FUROSEMIDE 20 MG tablet, TAKE 1 TABLET BY MOUTH EVERY DAY, Disp: 90 tablet, Rfl: 1 ??? Glucose Blood test strip, Check blood sugar once daily in AM when fasting, Disp: 100 strip, Rfl: 11 ??? Lancets (ONETOUCH ULTRASOFT) lancets, Check blood sugar once daily in AM when fasting, Disp: 1 each, Rfl: 11 ??? LISINOPRIL 40 MG tablet, TAKE 1 TABLET BY MOUTH EVERY DAY, Disp: 90 tablet, Rfl: 1 ??? metFORMIN ER 500 MG 24 hr tablet, Take 1 tablet (500 mg total) by mouth daily with breakfast., Disp: 180 tablet, Rfl: 1 ??? OMEPRAZOLE [...] st Contact Info) Description 10/09/2024 9:30 AM BABY NURSE Office Visit [facility] [phone] Carlos Farris MD [facility] [address] [place] [address] 11/02/2024 10:20 AM BABY NURSE Office Visit [facility] Family & Internal Medicine - [address] [phone] Sami Gimenez DO [address] [place] [address] documented as of this encounter Visit Diagnoses Diagnosis Type 2 diabetes mellitus without complication, without long-term current use of insulin ([facility]) documented in this encounter Additional Health Concerns Assessment Noted Time PHQ-9 Depression Total Score: 0 10/11/19 22 10:50 AM BABY NURSE documented as of this encounter Care Teams Passenger Rate Clerk Relationship Specialty Start Date End Date Sami Gimenez DO [address] [place] [address] PCP - General FAMILY PRACTICE 12/24/19 documented as of this encounter
--- OUTSIDE RECORDS SUMMARY | 2024-09-19 12:19 | XMS_ITS | Encounter Summary ---
Author Organization [facility] Address [address] [place] [address]. [place], [place] [id number] [place] [address] Care Team Providers Care Artists' Model Name Role Phone Sami Liriano DO Primary Care Provider + Reason for Visit * Reason Onset Date Comments Results 10/23/2021 Encounter Details Date Type Department Care Team (Late st Contact Info) Description 10/23/2021 Telephone [facility] Family & Internal Medicine [place] [address] [place] [address] Sami Liriano DO [address] [place] [address] Results Social History Tobacco Use Types [...] file Legal Sex Female 12:43 PM MEDICAL COLLECTIONS Gender Identity Female 12/18/2021 6:31 AM CDT Sexual Orientation Straight 01/15/2022 6: 11 AM CDT 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 Yes 10/19/2021 1:15 PM MEDICAL COLLECTIONS documented as of this encounter Progress Notes * Melanie Lance MA - 10/23/2021 11:18 AM CST Patient informed. tn CAL COLLECTIONS * Melanie Lance MA - 10/23/2021 11:12 AM CST LM 10/23/21 tn CAL COLLECTIONS * Sami Liriano DO - 10/23/2021 10:14 AM CST If she doesn't worsen, don't need to repeat for now. Keep appointment and will reassess then. Thesesymptoms may take a while to go away; let us know if they worsen. CAL COLLECTIONS * Melanie Lance MA - 10/23/2021 9:40 AM CST Patient informed of results. She is wondering when she need to repeat this. States she is much better but her cough is still there and she is short of breath at times. She is using her inhaler daily and thinks this may be her new normal. CAL COLLECTIONS * Melanie Lance MA - 10/23/2021 9:39 AM CST ----- Message from Sami Liriano DO sent at 10/22/2021 6:57 PM MEDICAL COLLECTIONS ----- Chest XR shows significant improvement in COVID pneumonia. Continue current care. CAL COLLECTIONS documented in this encounter Plan of Treatment Upcoming Encounters Date Type Department Care Team (Late st Contact Info) Description 10/09/2024 9:30 AM MEDICAL COLLECTIONS Office Visit [facility] [address] Carlos Farris MD Three [facility] [address] [place] [address] 11/02/2024 10:20 AM MEDICAL COLLECTIONS Office Visit [facility] Family & Internal Medicine - [address] [phone] Sami Liriano DO [address] [place] [address] documented as of this encounter Visit Diagnoses Not on filedocumented in this encounter Additional Health Concerns Infection Onset Date Last Indicated Resolved Time COVID-19 Confirmed 10/11/2021 10/11/2021 12:35 AM MEDICAL COLLECTIONS Assessment Noted Time PHQ-9 Depression Total Score: 0 10/11/19 22 10:50 AM MEDICAL COLLECTIONS documented as of this encounter Care Teams Artists' Model Relationship Specialty Start Date End Date Sami Liriano DO [address] [place] [address] PCP - General FAMILY PRACTICE 12/24/19 documented as of this encounter
--- OUTSIDE RECORDS SUMMARY | 2024-09-19 12:19 | XMS_ITS | Encounter Summary ---
Author Organization [facility] Address [facility] [place], [place] [address] [place] [address] Care Team Providers Care Dye Colorist Dyer Name Role Phone Sami Liriano Primary Care Provider + Encounter Details Date Type Department Care Team (Latest Contact Info) Description 12/11/2021 Travel Social History Tobacco Use Types Packs/Day [...] on file Legal Sex Female 12:43 PM FINANCIAL SERVICES SALES REPRESENTATIVE Gender Identity Female 12/18/2021 6:31 AM [...] suspected to have Coronavirus/COVID-19? No / Unsure 12/11/2021 9:41 AM CDT documented as of this encounter Plan of Treatment Upcoming Encounters Date Type Department Care Team (Late st Contact Info) Description 10/09/2024 9:30 AM FINANCIAL SERVICES SALES REPRESENTATIVE Office Visit [facility] [address] Carlos Farris MD Three [facility] [address] [place] [address] 11/02/2024 10:20 AM FINANCIAL SERVICES SALES REPRESENTATIVE Office Visit [facility] Family & Internal Medicine - [address] [address] Sami Liriano DO [address] [place] [address] documented as of this encounter Visit Diagnoses Not on filedocumented in this encounter Additional Health Concerns Assessment Noted Time PHQ-9 Depression Total Score: 0 10/11/19 10:50 AM FINANCIAL SERVICES SALES REPRESENTATIVE documented as of this encounter Care Teams Dye Colorist Dyer Relationship Specialty Start Date End Date Sami Liriano DO [address] [place] [address] PCP - General FAMILY PRACTICE 12/24/19 documented as of this encounter
--- OUTSIDE RECORDS SUMMARY | 2024-09-19 12:19 | XMS_ITS | Encounter Summary ---
Author Organization [facility] Address [facility]. [place], [place] [address] [place] [address] Care Team Providers Care Blow Molder Name Role Phone Sami Liriano Primary Care Provider + Encounter Details Date Type Department Care Team (Latest Contact Info) Description 10/19/2021 Travel Social History Tobacco Use Types Packs/Day [...] on file Legal Sex Female 12:43 PM COSTUMED CHARACTER Gender Identity Female 12/18/2021 6:31 AM CDT [...] Coronavirus / COVID-19? Yes 10/19/2021 1:15 PM COSTUMED CHARACTER documented as of this encounter Plan of Treatment Upcoming Encounters Date Type Department Care Team (Late st Contact Info) Description 10/09/2024 9:30 AM COSTUMED CHARACTER Office Visit [facility]-[address] [phone] Carlos Farris MD Three [facility] [address] [place] [address] 11/02/2024 10:20 AM COSTUMED CHARACTER Office Visit [facility] Medical Group Family & Internal Medicine - [address] [phone] Sami Liriano DO [address] [place] [place] [address] documented as of this encounter Visit Diagnoses Not on filedocumented in this encounter Additional Health Concerns Infection Onset Date Last Indicated Resolved Time COVID-19 Confirmed 10/11/2021 10/11/2021 12:35 AM COSTUMED CHARACTER Assessment Noted Time PHQ-9 Depression Total Score: 0 10/11/19 22 10:50 AM COSTUMED CHARACTER documented as of this encounter Care Teams Blow Molder Relationship Specialty Start Date End Date Sami Liriano DO [address] [place] [address] PCP - General FAMILY PRACTICE 12/24/19 documented as of this encounter
--- OUTSIDE RECORDS SUMMARY | 2024-09-19 12:19 | XMS_ITS | Encounter Summary ---
Author Organization [facility] Address [address] [place] [address]. [place], [place] [address] [place] [address] Care Team Providers Care Unit Assistant Name Role Phone Sami Liriano DO Primary Care Provider + Reason for Visit * Reason Onset Date Comments Back Pain 10/19/2021 Encounter Details Date Type Department Care Team (Late st Contact Info) Description 10/19/2021 Telephone [facility] Family & Internal Medicine [facility] [address] [place] [address] Sami Liriano DO [facility] [place] [address] Back Pain Social History Tobacco Use Types Packs/Day [...] Legal Sex Female 12:43 PM DIRECTOR OF AUTOMATION Gender Identity Female 12/18/2021 6:31 AM CDT Sexual Orientation Straight 01/15/2022 6: 11 AM CDT 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 Yes 10/19/2021 1:15 PM DIRECTOR OF AUTOMATION documented as of this encounter Progress Notes * Radha Oglesby MA - 10/19/2021 1:57 PM CST Patient notified and v/u CTOR OF AUTOMATION * Sami Liriaon DO - 10/19/2021 12:12 PM CST Okay to do Flexeril 5 mg, 1-2 tabs TID prn pain, #30 tabs, no refills. CTOR OF AUTOMATION * EFRAIN Martin - 10/19/2021 9:12 AM CST Patient called to say she's having muscle spasms and wants something sent for her to help with this. Does not want to be seen. I informed her id send a message but cant guarantee anything. She wants a call back CTOR OF AUTOMATION documented in this encounter Plan of Treatment Upcoming Encounters Date Type Department Care Team (Late st Contact Info) Description 10/09/2024 9:30 AM DIRECTOR OF AUTOMATION Office Visit [facility]-[address] [phone] [facility] [address] [place] [address] 11/02/2024 10:20 AM DIRECTOR OF AUTOMATION Office Visit [facility] Group Family & Internal Medicine - [place] [address] [place] [address] Sami Liriano DO [address] [place] [address] documented as of this encounter Visit Diagnoses Diagnosis Muscle spasm- Primary Spasm of muscle documented in this encounter Additional Health Concerns Infection Onset Date Last Indicated Resolved Time COVID-19 Confirmed 10/11/2021 10/11/2021 2 12:35 AM DIRECTOR OF AUTOMATION Assessment Noted Time PHQ-9 Depression Total Score: 0 10/11/19 22 10:50 AM DIRECTOR OF AUTOMATION documented as of this encounter Care Teams Unit Assistant Relationship Specialty Start Date End Date Sami Liriano DO [address] [place] [address] PCP - General FAMILY PRACTICE 12/24/19 documented as of this encounter
--- OUTSIDE RECORDS SUMMARY | 2024-09-19 12:19 | XMS_ITS | Encounter Summary ---
Author Organization [facility] Address [facility] 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 [...] st Contact Info) Description 10/09/2024 9:30 AM STOCK CONTROL CLERK Office Visit [facility]-[address] [address] Carlos Farris MD Three [facility] [address] [place] [address] 11/02/2024 10:20 AM STOCK CONTROL CLERK Office Visit [facility] Medical Group Family & Internal Medicine - [address] [address] Sami Liriano DO [address] [place] [address] documented as of this encounter Visit Diagnoses Not on filedocumented in this encounter Additional Health Concerns Assessment Noted Time PHQ-9 Depression Total Score: 0 10/11/19 10:50 AM STOCK CONTROL CLERK documented as of this encounter Care Teams Recovery Coordinator Relationship Specialty Start Date End Date Sami Liriano DO [address] [place] [address] PCP - General FAMILY PRACTICE 12/24/19 documented as of this encounter
--- OUTSIDE RECORDS SUMMARY | 2024-09-19 12:19 | XMS_ITS | Encounter Summary ---
Author Organization [facility] Address [address] [place] [address]. [place], [place] [address] [place] [address] Care Team Providers Care Medical Superintendent Name Role Phone Sami Liriano DO Primary Care Provider + Reason for Visit * Reason Onset Date Comments Lab Order 12/14/2021 Encounter Details Date Type Department Care Team (Late st Contact Info) Description 12/14/2021 Telephone [facility] Medical Group Family & Internal Medicine [facility] [address] [place] [address] Sami Liriano DO [facility] [place] [address] Lab Order Social History Tobacco Use Types Packs/Day Years [...] on file 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 No / Unsure 12/22/2021 10:02 AM CDT documented as of this encounter Progress Notes * Poppy Alas - 12/14/2021 3:42 PM CDT [facility] calling about a missing order They need 3 pour off vials of plasma from [employer] with each vial having 1ML of plasma in it and then it needs frozen; it needs spun twice in beginning to make the plasma as clean as possible Callback to [facility] is [phone] you will want to call and talk it through not sure if I got all the steps documented in this encounter Plan of Treatment Upcoming Encounters Date Type Department Care Team (Late st Contact Info) Description 10/09/2024 9:30 AM ARMY SENIOR OFFICER Office Visit [facility]-[address] [phone] Carlos Farris MD Three [facility] [address] [place] [address] 11/02/2024 10:20 AM ARMY SENIOR OFFICER Office Visit [facility] Medical Group Family & Internal Medicine - [address] [phone] [place] [address] [place] [address] documented as of this encounter Visit Diagnoses Not on filedocumented in this encounter Additional Health Concerns Assessment Noted Time PHQ-9 Depression Total Score: 0 10/11/19 22 10:50 AM ARMY SENIOR OFFICER documented as of this encounter Care Teams Medical Superintendent Relationship Specialty Start Date End Date Sami Liriano DO [address] [place] [address] PCP - General FAMILY PRACTICE 12/24/19 documented as of this encounter
--- OUTSIDE RECORDS SUMMARY | 2024-09-19 12:19 | XMS_ITS | Encounter Summary ---
Author Organization [facility] Address [address] [place] [address]. [place], [place] [address] [place] [address] Care Team Providers Care Concrete Smoother Name Role Phone Sami Liriano DO Primary Care Provider + Reason for Visit * Reason Onset Date Comments Letter 10/31/2021 Encounter Details Date Type Department Care Team (Late st Contact Info) Description 10/31/2021 Telephone [facility] Family & Internal Medicine [place] [address] [place] [address] Sami Liriano DO [facility] [place] [address] Letter Social History Tobacco Use Types Packs/Day Years [...] on file Legal Sex Female 12:43 PM STENCIL CUTTER Gender Identity Female 12/18/2021 6:31 AM CDT Sexual Orientation Straight 01/15/2022 6: 11 AM CDT 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 Yes 10/19/2021 1:15 PM STENCIL CUTTER documented as of this encounter Progress Notes * Radha Oglesby MA - 11/01/2021 10:02 AM CST Letter done. CIL CUTTER * JENNIFER Davila - 11/01/2021 9:08 AM CST OK for letter CIL CUTTER * Poppy Alas - 10/31/2021 10:45 AM CST Patient needing return to work letter for Saturday11/21/21. Would like a letter and she can get thatoff mychart. CIL CUTTER documented in this encounter Plan of Treatment Upcoming Encounters Date Type Department Care Team (Late st Contact Info) Description 10/09/2024 9:30 AM STENCIL CUTTER Office Visit [facility]-[address] [address] Carlos Farris MD Three [facility] [address] [facility] [place] [address] 11/02/2024 10:20 AM STENCIL CUTTER Office Visit [facility] Group Family & Internal Medicine - [address] [address] Sami Liriano DO [address] [place] [address] documented as of this encounter Visit Diagnoses Not on filedocumented in this encounter Additional Health Concerns Infection Onset Date Last Indicated Resolved Time COVID-19 Confirmed 10/11/2021 10/11/2021 2 12:35 AM STENCIL CUTTER Assessment Noted Time PHQ-9 Depression Total Score: 0 10/11/19 22 10:50 AM STENCIL CUTTER documented as of this encounter Care Teams Concrete Smoother Relationship Specialty Start Date End Date Sami Liriano DO [address] [place] [address] PCP - General FAMILY PRACTICE 12/24/19 documented as of this encounter
--- OUTSIDE RECORDS SUMMARY | 2024-09-19 12:19 | XMS_ITS | Encounter Summary ---
Author Organization [facility] Address Formerly [facility]. [place], [place] [id number] [place] [address] Care Team Providers Care Head Trimmer Name Role Phone Sami Liriano Primary Care Provider + Encounter Details Date Type Department Care Team (Latest Contact Info) Description 12/11/2021 5:45 PM CDT - 12/11/2021 11:59 PM T Hospital Encounter [facility] [address] [place] [address] Chris Bowen MD [address] [place] [address] Discharge Disposition: Home or Self Care (Routine [...] on file Legal Sex Female 12:43 PM CLERK TELEGRAPH SERVICE Gender Identity Female 12/18/2021 6:31 AM CDT Sexual Orientation Straight 01/15/2022 6: 11 AM CDT 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 20 capsule 10/09/2021 2 CHLORTHALIDONE 25 MG tabletIndications: Essential hypertension TAKE 1 TABLET BY MOUTH EVERY DAY 90 tablet 1 09/20/2021 2 ESCITALOPRAM 20 MG tabletIndications: Current mild episode of major depressive disorder without prior episode ([facility]) TAKE 1 TABLET BY MOUTH EVERY DAY 90 tablet 1 09/20/2021 2 FUROSEMIDE 20 MG tabletIndications: Essential hypertension TAKE 1 TABLET BY MOUTH EVERY DAY 90 tablet 1 09/20/2021 2 Glucose Blood test stripIndications:T ype 2 diabetes mellitus without complication, without long-term current use of insulin ([facility]) Check blood sugar once daily in AM when fasting 100 strip 11 08/07/2021 4 Lancets (ONETOUCH ULTRASOFT) lancetsIndications :Type 2 diabetes mellitus without complication, without long-term current use of insulin ([facility]) Check blood sugar once daily in AM when fasting 1 each 11 08/07/2021 4 LISINOPRIL 40 MG tabletIndications: Essential hypertension TAKE 1 TABLET BY MOUTH EVERY DAY 90 tablet 1 09/20/2021 2 metFORMIN ER 500 MG 24 hr tabletIndications: Type 2 diabetes mellitus without complication, without long-term current use of insulin ([facility]) Take 1 tablet (500 mg total) by mouth daily with breakfast. 180 tablet 1 08/08/2021 2 OMEPRAZOLE 40 MG capsuleIndications :Gastroesophageal reflux disease without esophagitis TAKE 1 CAPSULE BY MOUTH EVERY DAY 90 capsule 1 09/20/2021 2 potassium chloride CR 10 MEQ Tab CR tabletIndications: Bilateral lower extremity edema TAKE 2 TABLETS BY MOUTH DAILY FOR 2 WEEKS, THEN RESUME ONE TABLET DAILY 90 tablet 1 08/08/2021 2 traMADol 50 MG tabletIndications: Chronic Pain Take 1 tablet (50 mg total) by mouth every 6 (six) hours as needed for Pain. Indications: Chronic Pain 60 tablet 09/15/2021 2 documented as of this encounter Plan of Treatment Upcoming Encounters Date Type Department Care Team (Late st Contact Info) Description 10/09/2024 9:30 AM CLERK TELEGRAPH SERVICE Office Visit [facility] [phone] Carlos Farris MD [facility] [address] [place] [address] 11/02/2024 10:20 AM CLERK TELEGRAPH SERVICE Office Visit [facility] Family & Internal Medicine - [address] [phone] Heri Sami P, DO [address] [place] [address] documented as of this encounter Procedures Procedure Name Priority Date/Time Associated Diagnosis Comments BOBJ DEVELOPER ANTIBODY Routine 12/11/2021 12:00 PM CDT MCGINNIS (SM) ANTIBODY Routine 12/11/2021 1 2:00 PM CDT SSB ANTIBODY Routine 12/11/2021 12:00 PM CDT SSA ANTIBODY Routine 12/11/2021 12:00 PM CDT HC ALLYSON SCREEN Routine 12/11/2021 12:00 PM CDT RHEUMATOID FACTOR, QUANT Routine 12/11/2021 12:00 PM CDT CYCLIC CITRULLINATED PEPTIDE (CCP)ANTIBODY(IGG) Routine 12/11/2021 12:00 PM CDT THYROID PEROXIDASE ANTIBODY Routine 12/11/2021 12:00 PM CDT COMPLEMENT C4 Routine 12/11/2021 12:00 PM CDT COMPLEMENT C3 Routine 12/11/2021 12:00 PM CDT HC URINALYSIS AUTO W/MICRO Routine 12/11/2021 12:00 PM CDT FREE T3 Routine 12/11/2021 12:00 PM CDT SED RATE, ERYTHROCYTE (ESR) Routine 12/11/2021 12:00 PM CDT COMPREHENSIVE METABOLIC PANEL Routine 12/11/2021 12:00 PM CDT C-REACTIVE PROTEIN Routine 12/11/2021 12 :00 PM CDT CBC W/DIFF AUTOMATED Routine 12/11/2021 12:00 PM CDT THYROXINE, FREE (FT4) Routine 12/11/2021 12:00 PM CDT THYROID STIM HORMONE TSH Routine 12/11/2021 12:00 PM CDT ANGIOTENSIN I ENZYME SERUM Routine 12/11/2021 12:00 PM CDT documented in this encounter Results * BOBJ DEVELOPER ANTIBODY (12/11/2021 12:00 PM CDT) BOBJ DEVELOPER (U1) AB S/P/B 1.7 0.0 - 4.9 U/mL 12/13/2021 1:19 PM CDT [facility] Comment: NEGATIVE: <5 U/mL EQUIVOCAL: 5 to 10 U/mL POSITIVE: >10 U/mL ?AUTOANTIBODIES TO BOBJ DEVELOPER ARE FOUND IN GREATER THAN 95% OF PATIENTS WITH MIXED CONNECTIVE TISSUE DISEASE (MCTD), BUT ARE ALSO SEEN IN SYSTEMIC LUPUS ERYTHEMATOUS (40%), RHEUMATOID ARTHRITIS (10%), SCLERODERMA SYNDROME (10%), AND RARELY IN DRUG INDUCED LUPUS AND SJOGREN'S SYNDROME. ABSENCE OF BOBJ DEVELOPER ANTIBODIES USUALLY RULES OUT MCTD. 12/11/2021 12:0 0 PM CDT Chris Bowen MD LABORATORY Final Result [facility] [address] [place] [phone], [phone] * SSB ANTIBODY (12/11/2021 12:00 PM CDT) SSB ANTIBODY 0.6 0.0 - 6.9 U/mL 12/13/2021 1:19 PM CDT [facility] Comment: NEGATIVE: <7 U/mL EQUIVOCAL: 7 to 10 u/mL POSITIVE: >10 U/mL ?? SSA AND/OR SSB AUTOANTIBODIES ARE DETECTED IN 60% TO 90% OF PATIENTS WITH SJOGREN'S SYNDROME AND IN 20% TO 40% OF PATIENTS WITH SYSTEMIC LUPUS ERYTHEMATOSUS. 12/11/2021 12:0 0 PM CDT us Chris Bowen MD LABORATORY Final Result Performing Organization Address City/[facility]/ZIP Co de Phone Number [facility] [address] [place] [address], [phone] * SSA ANTIBODY (12/11/2021 12:00 PM CDT) SSA ANTIBODY 0.5 0.0 - 6.9 U/mL 12/13/2021 1:19 PM CDT [facility] Comment: NEGATIVE: <7 U/mL EQUIVOCAL: 7 to 10 u/mL POSITIVE: >10 U/mL ?? SSA AND/OR SSB AUTOANTIBODIES ARE DETECTED IN 60% TO 90% OF PATIENTS WITH SJOGREN'S SYNDROME AND IN 20% TO 40% OF PATIENTS WITH SYSTEMIC LUPUS ERYTHEMATOSUS. 12/11/2021 12:0 0 PM CDT us Chris Bowen MD LABORATORY Final Result Performing Organization Address [facility] Co de Phone Number [facility] [address] [place] [address], [phone] * THYROID MICROSOMAL ANTIBODY (12/11/2021 12:00 PM CDT) ANTITHY PEROXID AB 6.0 IU/ML 12/12/2021 11:35 AM CDT [facility] Comment: NEGATIVE: < 25 IU/ML EQUIVOCAL: 25 to 35 IU/ML POSITIVE: > 35 IU/ML 12/11/2021 12:0 0 PM CDT us Chris Bowen MD LABORATORY Final Result Performing Organization Address City/[facility] Co de Phone Number [facility] [address] [place] [address], [phone] * RHEUMATOID FACTOR, QUANT (12/11/2021 12:00 PM CDT) RHEUMATOID FACTOR <10 <15 IU/ML 12/11/2021 7:24 PM CDT [facility] 12/11/2021 12:0 0 PM CDT us Chris Bowen MD LABORATORY Final Result Performing Organization Address City/[facility]/ZIP Co de Phone Number [facility] [address] [place] [address], [phone] * THYROXINE, FREE (FT4) (12/11/2021 12:00 PM CDT) FREE T4 1.10 0.76 - 1.46 NG/DL 12/11/2021 8:20 PM CDT [facility] 12/11/2021 12:0 0 PM CDT us Chris Bowen MD LABORATORY Final Result Performing Organization Address [facility] Co de Phone Number [facility] [address] [place] [address], [place] [phone] * FREE T3 (12/11/2021 12:00 PM CDT) FREE T3 2.7 2.2 - 3.9 PG/ML 12/11/2021 8:20 PM CDT [facility] 12/11/2021 12:0 0 PM CDT us Chris Bowen MD LABORATORY Final Result Performing Organization Address [facility]/ZIP Co de Phone Number [facility] [address] [place] [address], [place] [phone] * MCGINNIS (SM) ANTIBODY (12/11/2021 12:00 PM CDT) SM ANTIBODY 1.2 U/mL 12/13/2021 1:19 PM CDT [facility] Comment: NEGATIVE: <7 U/mL EQUIVOCAL: 7 to 10 u/mL POSITIVE: >10 U/mL Autoantibodies to Mcginnis (Sm) antigen are found in 30% of patients with systemic lupus erythematosus and are highly specific for this disease. 12/11/2021 12:0 0 PM CDT us Chris Bowen MD LABORATORY Final Result Performing Organization Address [facility]/ZIP Co de Phone Number [facility] [address] [place] [address], [phone] * THYROID STIM HORMONE, TSH (12/11/2021 12:00 PM CDT) Pathologist [facility] TSH 2.150 0.358 - 3.740 uIU/ML 12/11/2021 8:20 PM CDT [facility] 12/11/2021 12:0 0 PM CDT us Chris Bowen MD LABORATORY Final Result Performing Organization Address [facility]/ZIP Co de Phone Number [facility] [address] [place] [address], [phone] * (ABNORMAL) ANGIOTENSIN CONVERTING ENZYME, SERUM (12/11/2021 12:00 PM CDT) CLAUDIA S/P/B 5(L) 9 - 67 U/L 12/14/2021 8:21 PM CDT [facility] Comment: Test Performed by Jesse Vidales, [facility], [address] [place] [address] Grzegorz Gomez M.D., Ph.D., Director of Laboratories , [place] [id number] 12/11/2021 12:0 0 PM CDT us hCris Bowen MD LABORATORY Final Result [facility] [address] [place] [address], [place] [phone] * COMPLEMENT C3 (12/11/2021 12:00 PM CDT) COMPLEMENT C3 137.0 90.0 - 180.0 MG/DL 12/11/2021 8:20 PM CDT [facility] 12/11/2021 12:0 0 PM CDT us Chris Bowen MD LABORATORY Final Result Performing Organization Address City/[facility] Co de Phone Number [facility] [address] [place] [address], [place] [phone] * URINALYSIS (12/11/2021 12:00 PM CDT) COLOR (U) COLORLESS 12/11/2021 7:10 PM CDT [facility] TRANSPARENCY CLEAR 12/11/2021 7:10 PM CDT [facility] SPECIFIC GRAVITY (U) 1.010 1.002 - 1.035 12/11/2021 7:10 PM CDT [facility] U PH 5.0 5 - 8 12/11/2021 7:10 PM CDT [facility] PROTEIN (U) NEGATIVE NEGATIVE 12/11/2021 7:10 PM CDT [facility] URINE GLUCOSE NEGATIVE NEGATIVE MG/DL 12/11/2021 7:10 PM CDT [facility] KETONES MG/DL (U) NEGATIVE NEGATIVE 12/11/2021 7:10 PM CDT [facility] BILIRUBIN (U) NEGATIVE NEGATIVE 12/11/2021 7:10 PM CDT [facility] BLOOD (U) NEGATIVE NEGATIVE 12/11/2021 7:10 PM CDT [facility] NITRITES NEGATIVE NEGATIVE 12/11/2021 7:10 PM CDT [facility] UROBILINOGEN NORMAL 0 - 1 EU/DL 12/11/2021 7:10 PM CDT [facility] LEUKOCYTES (U) NEGATIVE NEGATIVE 12/11/2021 7:10 PM CDT [facility] RBC/HPF NONE 0 - 3 /HPF 12/11/2021 7:10 PM CDT [facility] WBC/HPF <1 0 - 6 /HPF 12/11/2021 7:10 PM CDT [facility] BACTERIA (U) NONE /HPF 12/11/2021 7:10 PM CDT [facility] SQUAMOUS EPITHELIALS <1 12/11/2021 7:10 PM CDT [facility] HYALINE CASTS 15 12/11/2021 7:10 PM CDT [facility] URINE SPECIMEN / Unknown 12/11/2021 12:00 PM CDT us Chris Bowen MD URINE ORDERABLES Final Result Performing Organization Address [facility] Co de Phone Number [facility] [address] [place] [address], [phone] * (ABNORMAL) C-REACTIVE PROTEIN (12/11/2021 12:00 PM CDT) C-REACTIVE PROTEIN 1.55(H) <0.80 mg/dL 12/11/2021 8:20 PM CDT [facility] 12/11/2021 12:0 0 PM CDT us Chris Bowen MD LABORATORY Final Result Performing Organization Address City/[facility]/ZIP Co de Phone Number [facility] [address] [place] [address], [phone] * CYCLIC CITRULLINATED PEPTIDE (CCP)ANTIBODY(IGG) (12/11/2021 12:00 PM CDT) [facility] CITRULLINE PEPTIDE ANTIBODY <16 <20 Units 12/16/2021 10:03 PM CDT [facility] Comment: Negative: ? <20 Weak Positive: ?20 - 39 Moderate Positive: ?40 - 59 Strong Positive: ?>59 Test Performed by Jesse Vidales, [facility], [address] [place] [address] Grzegorz Gomez M.D., Ph.D., Director of Laboratories , [facility] [id number] 12/11/2021 12:0 0 PM CDT Chris Bowen MD LABORATORY Final Result [facility] [address] [address], [place] [phone] * ANTINUCLEAR ANTIBODY WI RFX (12/11/2021 12:00 PM CDT) [facility] ALLYSON 0.2 12/13/2021 1:19 PM CDT [facility] Comment: NEGATIVE: <0.7 RATIO ALLYSON PROFILE AND TITER NOT PERFORMED THE ALLYSON SCREEN TESTS FOR THE FOLLOWING ANTIBODIES BY EIA: SSA1 (RO), SSB1 (LA), MCGINNIS, SCL70, JO1, CENTROMERE, BOBJ DEVELOPER HISTONE MUST BE ORDERED SEPARATELY DNA (DS) ANTIBODY 1.5 IU/ML 022 1:19 PM CDT [facility] Comment: NEGATIVE: <10 IU/mL EQUIVOCAL: 10 to 15 IU/mL POSITIVE: >15 IU/mL THIS QUANTITATIVE ASSAY IS CALIBRATED TO THE [employer]'S WO/80 STANDARD. THE LEVEL OF dsDNA AUTOANTIBODY GERERALLY CORRELATES WITH THE LEVEL OF DISEASE ACTIVITY IN SYSTEMIC LUPUS ERYTHMATOSUS 12/11/2021 12:0 0 PM CDT us Chris Bowen MD LABORATORY Final Result Performing Organization Address [facility]/ZIP Co de Phone Number [facility] [address] [place] [address], [phone] * COMPLEMENT C4 (12/11/2021 12:00 PM CDT) COMPLEMENT C4 38.5 10.0 - 40.0 MG/DL 12/11/2021 8:20 PM CDT [facility] 12/11/2021 12:0 0 PM CDT us Chris Bowen MD LABORATORY Final Result Performing Organization Address [facility] de Phone Number [facility] [address] [place] [address], [phone] * (ABNORMAL) SED RATE, ERYTHROCYTE (ESR,WSR) (12/11/2021 12:00 PM CDT) ESR 35(H) 0 - 20 MM/HR 12/11/2021 7:13 PM CDT [facility] 12/11/2021 12:0 0 PM CDT us Chris Bowen MD LABORATORY Final Result Performing Organization Address [facility] Co de Phone Number [facility] [address] [place] [address], [phone] * (ABNORMAL) COMPREHENSIVE METABOLIC PANEL (12/11/2021 12:00 PM CDT) SODIUM S/P/B 134(L) 136 - 145 MMOL/L 12/11/2021 8:20 PM CDT [facility] POTASSIUM S/P/B 4.6 3.5 - 5.1 MMOL/L 12/11/2021 8:20 PM CDT [facility] CHLORIDE S/P/B 101 98 - 107 MMOL/L 12/11/2021 8:20 PM CDT [facility] CO2 26.6 21.0 - 32.0 MMOL/L 12/11/2021 8:20 PM CDT [facility] GLUCOSE 101 74 - 106 MG/DL 12/11/2021 8:20 PM CDT [facility] BUN 49(H) 7 - 18 MG/DL 12/11/2021 8:20 PM CDT [facility] CREATININE S/P/B 1.95(H) 0.55 - 1.02 MG/DL 12/11/2021 8:20 PM CDT [facility] CALCIUM S/P/B 9.7 8.5 - 10.1 MG/DL 12/11/2021 8:20 PM CDT [facility] BILIRUBIN TOTAL S/P/B 1.1(H) 0.2 - 1.0 MG/DL 12/11/2021 8:20 PM CDT [facility] ALKALINE PHOSPHATASE S/P/B 96 55 - 142 U/L 12/11/2021 8:20 PM CDT [facility] AST 17 15 - 37 U/L 12/11/2021 8:20 PM CDT [facility] ALT 26 13 - 56 U/L 12/11/2021 8:20 PM CDT [facility] TOTAL PROTEIN S/P/B 7.8 6.4 - 8.2 G/DL 12/11/2021 8:20 PM CDT [facility] ALBUMIN S/P/B 4.4 3.4 - 5.0 G/DL 12/11/2021 8:20 PM CDT [facility] ANION GAP 6.4 5.0 - 15.0 MMOL/L 12/11/2021 8:20 PM CDT [facility] OSMOLALITY (CALC) 291 MOSM/KG 022 8:20 PM CDT [facility] Comment:REFERENCE RANGE NOT ESTABLISHED EGFR NON-AFR. AMER. 26(L) >90 ML/MIN/1. 73 M2 12/11/2021 8:20 PM CDT [facility] EGFR AFR. AMER. 30(L) >90 ML/MIN/1. 73 M2 12/11/2021 8:20 PM CDT [facility] GFR NOTES GFR REFERENCE S: 12/11/2021 8:20 PM CDT [facility] Comment: THE ESTIMATED GFR IS CALCULATED [...] ml/min/1.73 m2 G5,KIDNEY FAILURE: <15 ml/min/1.73 m2 12/11/2021 12:0 0 PM CDT Chris Bowen MD LABORATORY Final Result [facility] [address] [place] [phone], [phone] * (ABNORMAL) CBC W/DIFF AUTOMATED (12/11/2021 12:00 PM CDT) WBC 10.9(H) 4.0 - 10.8 x10'3/uL 12/11/2021 7:09 PM CDT [facility] RBC 4.28 4.10 - 5.40 x10'6/uL 12/11/2021 7:09 PM CDT [facility] HGB 12.5 12.0 - 16.0 G/DL 12/11/2021 7:09 PM CDT [facility] HCT 38.5 36.0 - 47.0 % 12/11/2021 7:09 PM CDT [facility] MCV 90.0 78.0 - 100.0 FL 12/11/2021 7:09 PM CDT [facility] MCH 29.2 27.0 - 31.0 PG 12/11/2021 7:09 PM CDT [facility] MCHC 32.5(L) 33.0 - 36.0 G/DL 12/11/2021 7:09 PM CDT [facility] RDW 14.3 11.5 - 14.5 % 12/11/2021 7:09 PM CDT [facility] PLT 303 150 - 350 x10'3/uL 12/11/2021 7:09 PM CDT [facility] MPV 10.6(H) 7.4 - 10.4 FL 12/11/2021 7:09 PM CDT [facility] ABS. NEUTROPHILS 5.77 1.60 - 8.30 x10'3/uL 12/11/2021 7:09 PM CDT [facility] ABS. LYMPHOCYTES 3.97 0.80 - 4.70 x10'3/uL 12/11/2021 7:09 PM CDT [facility] ABS. MONOCYTES 0.92 0.00 - 1.50 x10'3/uL 12/11/2021 7:09 PM CDT [facility] ABS. EOSINOPHILS 0.14 0.00 - 0.40 x10'3/uL 12/11/2021 7:09 PM CDT [facility] ABS. BASOPHILS 0.06 0.00 - 0.20 x10'3/uL 12/11/2021 7:09 PM CDT [facility] ABS. IMMATURE GRANULOCYTES 0.03 0.00 - 0.03 x10'3/uL 12/11/2021 7:09 PM CDT [facility] ABS. NUCLEATED RBC'S 0.00 0.0 x10'3/uL 12/11/2021 7:09 PM CDT [facility] 12/11/2021 12:0 0 PM CDT Chris Bowen MD LABORATORY Final Result [facility] [address] [place] [address], [phone] documented in this encounter Visit Diagnoses Not on filedocumented in this encounter Additional Health Concerns Assessment Noted Time PHQ-9 Depression Total Score: 0 10/11/19 22 10:50 AM CLERK TELEGRAPH SERVICE documented as of this encounter Care Teams Head Trimmer Relationship Specialty Start Date End Date Sami Liriano DO [address] [place] [id number] PCP - General FAMILY PRACTICE 12/24/19 documented as of this encounter
--- OUTSIDE RECORDS SUMMARY | 2024-09-19 12:19 | XMS_ITS | Encounter Summary ---
Author Organization [facility] Address [address] [place] [address]. 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 Yes 10/19/2021 1:15 PM WOMEN'S BASKETBALL COACH documented as of this encounter Plan of Treatment Upcoming Encounters Date Type Department Care Team (Late st Contact Info) Description 10/09/2024 9:30 AM WOMEN'S BASKETBALL COACH Office Visit [facility] [phone] Carlos Farris MD [address] [facility] [address] [place] [address] 11/02/2024 10:20 AM WOMEN'S BASKETBALL COACH Office Visit [facility] Family & Internal Medicine - [address] [phone] Sami Liriano DO [address] [place] [address] documented as of this encounter Visit Diagnoses Not on filedocumented in this encounter Additional Health Concerns Infection Onset Date Last Indicated Resolved Time COVID-19 Rule Out 10/11/2021 10/11/2021 10/12/2021 1:13 AM WOMEN'S BASKETBALL COACH COVID-19 Confirmed 10/11/2021 10/11/2021 12:35 AM WOMEN'S BASKETBALL COACH Assessment Noted Time PHQ-9 Depression Total Score: 0 10/11/19 22 10:50 AM WOMEN'S BASKETBALL COACH documented as of this encounter Care Teams Mold Chipper Relationship Specialty Start Date End Date Sami Liriano DO [address] [place] [phone] PCP - General FAMILY PRACTICE 12/24/19 documented as of this encounter
--- OUTSIDE RECORDS SUMMARY | 2024-09-19 12:19 | XMS_ITS | Encounter Summary ---
Author Organization [facility] Address [facility]. [place], [place] [address] [place] [address] Care Team Providers Care Gas Burner Operator Name Role Phone Sami Liriano DO Primary Care Provider + Reason for Referral * Consultation (Routine) - Closed Specialty Diagnoses / Procedures Referred By Shereen t Referred To Contact RHEUMATOLOGY Diagnoses ALLYSON positive Sami Liriano DO [address] [place] [address] Phone: tel: fax: Chris Bowen MD [address] [address] Phone: tel: fax: Referral ID Status Reason Start Date Expiration Date V isits Requested Visits Authorized [id number] Closed Specialty Services 11/01/2021 05/28/2022 6 6 R ASSEMBLER Reason for Visit * Reason Onset Date Comments Referral Request 11/14/2021 Encounter Details Date Type Department Care Team (Late st Contact Info) Description 11/14/2021 Telephone [facility] Family & Internal Medicine - [place] [address] [place] [phone] Sami Liriano DO [address] [place], [place] [phone] Referral Request Social History Tobacco Use Types Packs/Day [...] on file Legal Sex Female 12:43 PM LINER ASSEMBLER Gender Identity Female 12/18/2021 6:31 AM CDT [...] Coronavirus / COVID-19? Yes 10/19/2021 1:15 PM LINER ASSEMBLER documented as of this encounter Progress Notes * Martha Carrion MA - 11/14/2021 9:[address] Bowen's office to find out time of appointment, patient was rescheduled to 12/06/21, herappointment was at 9:00am Referral ordered. R ASSEMBLER * Maria Del Rosario [place] - 11/14/2021 8:21 AM CST Patient is needing a referral for Dr. Bowen. Appointment is scheduled for today. Fx: [phone] Dx: [phone] The office would like a call letting them know if the referral will be sent to them today since patient is scheduled for today. R ASSEMBLER documented in this encounter Plan of Treatment Upcoming Encounters Date Type Department Care Team (Late st Contact Info) Description 10/09/2024 9:30 AM LINER ASSEMBLER Office Visit [facility]-[address] [phone] Carlos Farris MD [address] [facility] [address] [place] [address] 11/02/2024 10:20 AM LINER ASSEMBLER Office Visit [facility] Medical Group Family & Internal Medicine - [address] [phone] Sami Liriano DO [address] [place] [address] Scheduled Referrals Name Type Priority Associated Diagnoses Orde r Schedule Ambulatory referral to Rheumatology Referral Routine ALLYSON positive Ordered: 11/14/2021 documented as of this encounter Visit Diagnoses Diagnosis ALLYSON positive- Primary Other and unspecified nonspecific immunological findings documented in this encounter Additional Health Concerns Assessment Noted Time PHQ-9 Depression Total Score: 0 10/11/19 22 10:50 AM LINER ASSEMBLER documented as of this encounter Care Teams Gas Burner Operator Relationship Specialty Start Date End Date Sami Liriano DO [address] [place] [address] PCP - General FAMILY PRACTICE 12/24/19 documented as of this encounter
--- OUTSIDE RECORDS SUMMARY | 2024-09-19 12:19 | XMS_ITS | Encounter Summary ---
Author Organization [facility] Address [address] [place] [address]. [place], [place] [address] [place] [address] Care Team Providers Care Environmental Marketer Name Role Phone Sami Gimenez DO Primary Care Provider + Reason for Visit * Reason Onset Date Comments Follow Up Call 10/16/2021 Encounter Details Date Type Department Care Team (Late st Contact Info) Description 10/16/2021 Telephone [facility] Medical Group Family & Internal Medicine [facility] [address] [place] [address] Sami Gimenez DO [facility] [place] [address] Follow Up Call Social History Tobacco Use Types Packs/Day Years [...] on file Legal Sex Female 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 Unable to assess 10/11/2021 1:32 PM FARMWORKER DIVERSIFIED CROPS documented as of this encounter Progress Notes * Radha Clinton MA - 10/16/2021 1:36 PM CSTAddended by: RADHA CLINTNO on: 10/16/2021 01:36 PM Modules accepted: Orders WORKER DIVERSIFIED CROPS * Radha Clinton MA - 10/16/2021 1:35 PM CST Patient notified and v/u WORKER DIVERSIFIED CROPS * Sami Gimenez DO - 10/16/2021 11:47 AM CST Do a repeat CXR in 1 week from ER exam; otherwise, continue current meds. WORKER DIVERSIFIED CROPS * Deb Varela RN - 10/16/2021 8:36 AM CST Patient called in stating she is feeling better. However, she is still SOB when ambulating around the house. Patient stated she is not as confused or in a brain fog anymore. Patient will complete her Zpack on 10/16/21 and her antibiotic on 10/19/21 for UTI. Patient did not qualify for the antibody t reatment related to patient being out of her 10- day window. Patient is wondering if there is anything else the provider recommends for her. This nurse advised patient to continue with current treatment plan. Increase fluids and continue to ambulate as tolerated while monitoring oxygen level. Patient verbalized understanding. Opportunity given for all questions to be answered, no further needs voiced at this time. Please advise Allergies- Penicillins, Sulfa antibiotics Pharmacy- [facility]-10/16/21 WORKER DIVERSIFIED CROPS WORKER DIVERSIFIED CROPS documented in this encounter Plan of Treatment Upcoming Encounters Date Type Department Care Team (Late st Contact Info) Description 10/09/2024 9:30 AM FARMWORKER DIVERSIFIED CROPS Office Visit [facility] [phone] Carlos Farris MD [address] [facility] [address] [place] [address] 11/02/2024 10:20 AM FARMWORKER DIVERSIFIED CROPS Office Visit [facility] Medical Group Family & Internal Medicine - [address] [phone] Sami Gimenez DO [address] [place] [address] documented as of this encounter Results * XR CHEST PA+LAT (10/19/2021 1:25 PM FARMWORKER DIVERSIFIED CROPS) Anatomical Region Laterality Modality Chest Radiographic Jody ging 10/19/2021 1:34 PM FARMWORKER DIVERSIFIED CROPS Impressions 10/19/2021 1:39 PM FARMWORKER DIVERSIFIED CROPS IMPRESSION: Interval near complete resolution of previously seen bilateral lung opacities consistent with resolving COVID pneumonia. Ordered By: SAMI GIMENEZ Interpreted By: Abner Zamora MD, 10/19/2021 1:34 PM Narrative 10/19/2021 1:39 PM FARMWORKER DIVERSIFIED CROPS EXAM DESCRIPTION: Chest 2 views EXAM TIME : 10/19/2021 1:16 PM COMPARISON FILM : 10/11/2021 INDICATION: Covid follow-up TECHNIQUE: ??Chest- 2 - views, 2 - images FINDINGS: Heart size upper normal. Mild tortuosity of the descending thoracic aorta. Interval near complete resolution of previously present bilateral interstitial and ill- defined left lung opacities with possibly just some minimal residual opacity in the retrocardiac region. No acute bony abnormality. Procedure Note Abner Zamora MD - 10/19/2021 EXAM DESCRIPTION: Chest 2 views EXAM TIME : 10/19/2021 1:16 PM COMPARISON FILM : 10/11/2021 INDICATION: Covid follow-up TECHNIQUE: Chest- 2 - views, 2 - images FINDINGS: Heart size upper normal. Mild tortuosity of the descending thoracic aorta.Interval near complete resolution of previously present bilateralinterstitial and ill- defined left lung opacities with possibly just someminimal residual opacity in the retrocardiac region. No acute bonyabnormality. IMPRESSION: Interval near complete resolution of previously seen bilaterallung opacities consistent with resolving COVID pneumonia. Ordered By: SAMI GIMENEZ Interpreted By: Abner Zamora MD, 10/19/2021 1:34 PM us Sami Gimenez DO GENERAL IMAGING Final Re sult documented in this encounter Visit Diagnoses Diagnosis Cough- Primary documented in this encounter Additional Health Concerns Infection Onset Date Last Indicated Resolved Time COVID-19 Confirmed 10/11/2021 10/11/2021 2 12:35 AM FARMWORKER DIVERSIFIED CROPS Assessment Noted Time PHQ-9 Depression Total Score: 0 10/11/19 22 10:50 AM FARMWORKER DIVERSIFIED CROPS documented as of this encounter Care Teams Environmental Marketer Relationship Specialty Start Date End Date Sami Gimenez DO [address] [place] [address] PCP - General FAMILY PRACTICE 12/24/19 documented as of this encounter
--- OUTSIDE RECORDS SUMMARY | 2024-09-19 12:20 | XMS_ITS | Encounter Summary ---
Author Organization [facility] Address [facility]. [place], [place] [address] [place] [address] Care Team Providers Care Calf Skinner Name Role Phone Sami Gimenez DO Primary Care Provider + Reason for Visit * Reason Comments COVID-19 positive at home indigo t , interested in monoclonal ab treatment Encounter Details Date Type Department Care Team (Late st Contact Info) Description 10/11/2021 12:00 PM CLIENT SALES AND SERVICE OFFICER Telemedicine [facility] Medical Group Family & Internal Medicine [address] [place] [address] Sami Gimenez DO [address] [place] [address] COVID-19 (positive at home test , interested in monoclonal ab treatment ) Social History Tobacco Use Types Packs/Day [...] file Legal Sex Female 12:43 PM CLIENT SALES AND SERVICE OFFICER Gender Identity Female 12/18/2021 6:31 AM [...] COVID-19? Unable to assess 10/11/2021 1:32 PM CLIENT SALES AND SERVICE OFFICER documented as of this encounter Progress Notes * Sami Gimenez, DO - 10/11/2021 12:00 PM CST Images from the original note were not included. GENERAL OFFICE VISIT Encounter Date: 10/11/2021 I introduced and identified myself, received verbal consent from the patient to proceed with this video visit and made the patient aware that the same confidentiality and supervisor telephone information practices apply. The patient joined the video visit from Home. I completed the virtual visit from Office. The following clinical staff helped with this visit MA: Radha Oglesby. Total Time Spent in Minutes: 23 Exam was changed to in person after initial virtual exam. Chief Complaint: 66-year-old female presents for COVID-19 (positive at home test , interested in monoclonal ab treatment ) HPI: Patient states symptoms have been present for 7 days. Symptoms include cough, body aches, chills, fever (103), diarrhea, generalized abdominal pain, chest tightness, and SOB. Pertinent negatives include Chest Pain. Patient has no sick contacts. OTC medications tried include Tylenol and ibuprofen. Pt had a positive home test on 10/05/21. We sent out Sunil rios. Patient presents for urinary symptoms. Symptoms began 2 days ago. Symptoms include sending a chill up her spine with urination that then leads to pain as well as urgency. Pt has taken Azo. We startedpt on cefdinir on 10/09/21. Telemedicine on 10/11/2021 Component Date Value Ref Range Status ??? CORONAVIRUS ANTIGEN IA 10/11/2021 NEGATIVE NEGATIVE Final ??? INFLUENZA A 10/11/2021 NEGATIVE NEGATIVE Final ??? INFLUENZA B 10/11/2021 NEGATIVE NEGATIVE Final ??? Internal Control: 10/11/2021 VALID VALID Final Review of Systems Patient Active Problem List Diagnosis ??? Alopecia ??? Essential hypertension ??? Arthritis of left knee ??? GERD (gastroesophageal reflux disease) ??? Overactive bladder ??? Depression ??? Pharyngoesophageal dysphagia ??? Positive colorectal cancer screening using Cologuard test ??? ALLYSON positive ??? Stage 3a chronic kidney disease (CMS/HCC) ??? MOR (obstructive sleep apnea) ??? Mixed hyperlipidemia Past Medical History: Diagnosis Date ??? Arthritis ??? Arthritis of left knee 11/08/2019 ??? Depression ??? GERD (gastroesophageal reflux disease) ??? Hypertension ??? Overactive bladder Past Surgical History: Procedure Laterality Date ??? ANKLE SURGERY left ??? SECTION ??? COLONOSCOPY N/A 04/27/2020 COLONOSCOPY WITH BIOPSY X 3 performed by Joel Keenan MD at [facility] OR ??? EGD ??? HERNIA REPAIR ??? [...] Not on file Occupational History ??? 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 Smoking status: Former Smoker Packs/day: 1.00 Years: 12.00 Pack years: 12.00 Types: Cigarettes Quit date: 1976 Years since quittin.0 ??? Smokeless tobacco: Never Used Vaping Use [...] Kassi when fasting 1 kit 0 ??? cefdinir 300 MG Cap capsule Take 1 capsule (300 mg total) by mouth 2 (two) times daily. 20 capsule 0 ??? CHLORTHALIDONE 25 MG tablet TAKE 1 TABLET BY MOUTH EVERY DAY 90 tablet 1 ??? ESCITALOPRAM 20 MG tablet TAKE 1 TABLET BY MOUTH EVERY DAY 90 tablet 1 ??? FUROSEMIDE 20 MG tablet TAKE 1 TABLET BY [...] daily with breakfast. 180 tablet 1 ??? OMEPRAZOLE 40 MG capsule TAKE 1 CAPSULE BY MOUTH EVERY DAY 90 capsule 1 ??? potassium chloride CR 10 MEQ Tab CR tablet TAKE 2 TABLETS BY MOUTH DAILY FOR 2 WEEKS, THEN RESUME ONE TABLET DAILY 90 tablet 1 ??? traMADol 50 MG tablet Take 1 tablet (50 mg total) by mouth every 6 (six) hours as needed for Pain. Indications: Chronic Pain 60 tablet 0 ??? benzonatate 100 MG capsule Take 1-2 capsules by mouth tid prn 40 capsule 0 No current facility-administered medications for this visit. Current Outpatient Medications on File Prior to Visit Medication Sig ??? acetaminophen 325 MG tablet Take 325 mg by mouth. Take 2 in the am and 2 tabs in the pm and 1 PRN ??? Blood Glucose Monitoring Suppl (ONE TOUCH ULTRA 2) w/Device Kit Check blood sugar once daily Kassi when fasting ??? cefdinir 300 MG Cap capsule Take 1 capsule (300 mg total) by mouth 2 (two) times daily. ??? CHLORTHALIDONE 25 MG tablet TAKE 1 TABLET BY MOUTH EVERY DAY ??? ESCITALOPRAM 20 MG tablet TAKE 1 TABLET BY MOUTH EVERY DAY ??? FUROSEMIDE 20 MG tablet TAKE 1 TABLET BY MOUTH EVERY DAY ??? Glucose Blood test strip Check blood sugar once daily in AM when fasting ??? Lancets (UniregistryTOUCH ULTRASOFT) lancets Check blood sugar once daily in AM when fasting ??? LISINOPRIL 40 MG tablet TAKE 1 TABLET BY MOUTH EVERY DAY ??? metFORMIN ER 500 MG 24 hr tablet Take 1 tablet (500 mg total) by mouth daily with breakfast. ??? OMEPRAZOLE 40 MG capsule TAKE 1 CAPSULE BY MOUTH EVERY DAY ??? potassium chloride CR 10 MEQ Tab CR tablet TAKE 2 TABLETS BY MOUTH DAILY FOR 2 WEEKS, THEN RESUME ONE TABLET DAILY ??? traMADol 50 MG tablet Take 1 tablet (50 mg total) by mouth every 6 (six) hours as needed for Pain. Indications: Chronic Pain ??? benzonatate 100 MG capsule Take 1-2 capsules by mouth tid prn No current facility-administered medications on file prior to visit. Allergies Allergen Reactions ??? Penicillins Rash ??? Sulfa Antibiotics Rash Objective: O2: 90% Physical Exam Vitals and nursing note reviewed. Constitutional: Comments: No acute distress but mildly ill-appearing HENT: Head: Normocephalic and atraumatic. Right Ear: External ear normal. Left Ear: External ear normal. Nose: Nose normal. Eyes: General: No scleral icterus. Conjunctiva/sclera: Conjunctivae normal. Pulmonary: Effort: Pulmonary effort is normal. Skin: General: Skin is dry. Findings: No rash. Neurological: Mental Status: She is oriented to person, place, and time. Psychiatric: Mood and Affect: Mood and affect normal. Assessment & Plan: Jolly was seen today for covid-19. Diagnoses and all orders for this visit: Fever - CORONAVIRUS (COVID-19) INFLUENZA A & B ANTIGEN IA PANEL - CORONAVIRUS (COVID 19) PCR ([facility]); Future - CORONAVIRUS (COVID 19) PCR ([facility]) Chills - CORONAVIRUS (COVID-19) INFLUENZA A & B ANTIGEN IA PANEL - CORONAVIRUS (COVID 19) PCR ([facility]); Future - CORONAVIRUS (COVID 19) PCR ([facility]) Cough - CORONAVIRUS (COVID-19) INFLUENZA A & B ANTIGEN IA PANEL - CORONAVIRUS (COVID 19) PCR ([facility]); Future - CORONAVIRUS (COVID 19) PCR ([facility]) Discussion/Summary: Will obtain CXR. Will send out z-pack as well to cover for pneumonia. Will try for monoclonal antibodies as well; pt is aware of risks and benefits and scarcity of this treatment at this time. Will await full results and dictate further treatment. Will likely need ER evaluation if worsening. Pt v/u. Addendum: After virtual visit, pt came in for XR and in-person evaluation. Pt was found to be falling asleep frequently during exam. Her O2 was 90%. Her CXR was read: XR CHEST PA+LAT Narrative: Examination: XR CHEST PA+LAT Exam time: 10/11/2021 1:37 PM Clinical history: Cough, Covid 19 positive Comparison: 05/25/2021 Technique: PA and lateral chest Findings: Heart size is at the upper limits of normal. Pulmonary vasculature unremarkable. Abnormalgroundglass opacities involving the mid and lower lung bilaterally left greater than right consistent with Covid 19 related pneumonia. No pleural effusion. No hyperinflation. Impression: IMPRESSION: 1) Abnormal groundglass opacities involving mid and lower lung bilaterally left greater than right consistent with Covid 19 related pneumonia. Ordered By: SAMI GIMENEZ Interpreted By: Jeramy Clifton MD, 10/11/2021 1:46 PM Given these findings and over all presentation, pt was sent via EMS to nearest hospital. I spent 40 minutes today reviewing the patient's medical record, obtaining history, performing an exam, ordering medications, tests, and/or procedures, documenting in the medical record, counseling and educating the patient/family/caregiver, reviewing and communicating test results and coordinationof care. Sami Gimenez DO NT SALES AND SERVICE OFFICER documented in this encounter Plan of Treatment Upcoming Encounters Date Type Department Care Team (Late st Contact Info) Description 10/09/2024 9:30 AM CLIENT SALES AND SERVICE OFFICER Office Visit [facility]-[address] [phone] Carlos Farris MD Three [facility] [address] [facility] [place] [address] 11/02/2024 10:20 AM CLIENT SALES AND SERVICE OFFICER Office Visit [facility] Medical Group Family & Internal Medicine - [address] [phone] Sami Gimenez DO [address] [place] [address] documented as of this encounter Procedures Procedure Name Priority Date/Time Associated Diagnosis Comments CORONAVIRUS (COVID 19) PCR Routine 10/11/2021 8:46 AM CLIENT SALES AND SERVICE OFFICER Fever, unspecified fever cause Chills Cough CORONAVIRUS (COVID-19) INFLUENZA A & B ANTIGEN IA PANEL Routine 10/11/2021 Fever, unspecified fever cause Chills Cough documented in this encounter Results * XR CHEST PA+LAT (10/11/2021 1:42 PM CLIENT SALES AND SERVICE OFFICER) Anatomical Region Laterality Modality Chest Radiographic Jody ging 10/11/2021 1:46 PM CLIENT SALES AND SERVICE OFFICER Impressions 10/11/2021 1:47 PM CLIENT SALES AND SERVICE OFFICER IMPRESSION: 1) Abnormal groundglass opacities involving mid and lower lung bilaterally left greater than right consistent with Covid 19 related pneumonia. Ordered By: SAMI GIMENEZ Interpreted By: Jeramy Clifton MD, 10/11/2021 1:46 PM Narrative 10/11/2021 1:47 PM CLIENT SALES AND SERVICE OFFICER Examination: XR CHEST PA+LAT Exam time: 10/11/2021 1:37 PM Clinical history: Cough, Covid 19 positive Comparison: 05/25/2021 Technique: PA and lateral chest Findings: Heart size is at the upper limits of normal. Pulmonary vasculature unremarkable. Abnormal groundglass opacities involving the mid and lower lung bilaterally left greater than right consistent with Covid 19 related pneumonia. No pleural effusion. No hyperinflation. Procedure Note Jeramy Clifton MD - 10/11/2021 Examination: XR CHEST PA+LAT Exam time: 10/11/2021 1:37 PM Clinical history: Cough, Covid 19 positive Comparison: 05/25/2021 Technique: PA and lateral chest Findings: Heart size is at the upper limits of normal. Pulmonaryvasculature unremarkable. Abnormal groundglass opacities involving the midand lower lung bilaterally left greater than right consistent with Covid19 related pneumonia. No pleural effusion. No hyperinflation. IMPRESSION: 1) Abnormal groundglass opacities involving mid and lower lung bilaterallyleft greater than right consistent with Covid 19 related pneumonia. Ordered By: SAMI GIMENEZ Interpreted By: Jeramy Clifton MD, 10/11/2021 1:46 PM us Sami Gimenez DO GENERAL IMAGING Final Re sult * (ABNORMAL) CORONAVIRUS (COVID 19) PCR ([facility]) (10/11/2021 8:46 AM CLIENT SALES AND SERVICE OFFICER) SPEC DESCRIPTION NASAL 10/11/19 8:47 AM CLIENT SALES AND SERVICE OFFICER [facility] CORONAVIRUS SARS COV 2 PCR (RESP) POSITIVE(AA ) NEGATIVE 10/12/2021 1:13 AM CLIENT SALES AND SERVICE OFFICER [facility] Comment: THE SARS-CoV-2 TEST HAS BEEN AUTHORIZED BY THE FDA UNDER AN EUA FOR USE BY AUTHORIZED LABORATORIES. PERFORMED BY NUCLEIC ACID AMPLIFICATION PCR FIRST TEST YES 10/11/2021 8:47 AM CLIENT SALES AND SERVICE OFFICER [facility] EMPLOYED IN HEALTHCARE NO 10/11/2021 8:47 AM [facility] SYMPTOMATIC DEFINED BY CDC YES 10/11/2021 8:47 AM [facility] DATE OF SYMPTOM ONSET 2021100510/11/2021 8:47 AM [facility] HOSPITALIZATION STATUS NO 10/11/2021 8:47 AM [facility] PATIENT IN ICU NO 10/11/2021 8:47 AM [facility] RESIDENT OF [facility] CARE NO 10/11/2021 8:47 AM [facility] NASOPHARYNGEAL SWAB / Unknown 10/11/2021 8:46 AM CLIENT SALES AND SERVICE OFFICER Sami Gimenez DO MICROBIOLOGY - GENERAL O RDERABLES Final Result [facility] [address] [place] [address], * CORONAVIRUS (COVID-19) INFLUENZA A & B ANTIGEN IA PANEL (10/11/2021) CORONAVIRUS ANTIGEN IA NEGATIVE NEGATIVE [facility] INFLUENZA A NEGATIVE NEGATIVE [facility] INFLUENZA B NEGATIVE NEGATIVE [facility] Internal Control: VALID VALID [facility] NASAL STRUCTURE / Unknown 10/11/2021 Sami Gimenez DO MICROBIOLOGY - GENERAL O RDERABLES Final Result [facility] [address] [place] [address], documented in this encounter Visit Diagnoses Diagnosis Fever, unspecified fever cause- Primary Chills Chills (without fever) Cough Acute cystitis without hematuria Acute cystitis documented in this encounter Additional Health Concerns Infection Onset Date Last Indicated Resolved Time COVID-19 Rule Out 10/11/2021 10/11/2021 10/12/2021 1:13 AM CLIENT SALES AND SERVICE OFFICER Assessment Noted Time PHQ-9 Depression Total Score: 0 10/11/19 10:50 AM CLIENT SALES AND SERVICE OFFICER documented as of this encounter Care Teams Calf Skinner Relationship Specialty Start Date End Date Sami Gimenez DO [address] [place] [address] PCP - General FAMILY PRACTICE 12/24/19 documented as of this encounter
--- OUTSIDE RECORDS SUMMARY | 2024-09-19 12:20 | XMS_ITS | Encounter Summary ---
Author Organization [facility] Address [address] [place] [address]. [place], [place] [address] [place] [address] Care Team Providers Care Stage Manager Name Role Phone Sami Liriano DO Primary Care Provider + Reason for Visit * Reason Onset Date Comments Results 10/12/2021 Encounter Details Date Type Department Care Team (Late st Contact Info) Description 10/12/2021 Telephone [facility] Medical Group Family & Internal Medicine [id number] [place] [address] Sami Liriano DO [address] [place] [address] Results Social History Tobacco Use Types [...] on file Legal Sex Female 12:43 PM BOAT RENTAL CLERK Gender Identity Female 12/18/2021 6:31 AM CDT Sexual Orientation Straight 01/15/2022 6: 11 AM CDT 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 Unable to assess 10/11/2021 1:32 PM BOAT RENTAL CLERK documented as of this encounter Progress Notes * Radha Oglesby MA - 10/13/2021 12:39 PM CST Patient notified and v/u RENTAL CLERK * Maria Del Rosario [place] - 10/13/2021 12:28 PM CST Patient is calling in states that she is wanting the antobody infusion. She is asking if we have anupdate on when she will be scheduled for that. RENTAL CLERK * Radha Oglesby MA - 10/12/2021 9:17 AM CST Patient notified and v/u RENTAL CLERK * Radha Oglesby MA - 10/12/2021 9:17 AM CST ----- Message from Sami Liriano DO sent at 10/12/2021 7:39 AM BOAT RENTAL CLERK ----- COVID PCR is negative; pt was sent to ER yesterday for this, so please reach out. RENTAL CLERK documented in this encounter Plan of Treatment Upcoming Encounters Date Type Department Care Team (Late st Contact Info) Description 10/09/2024 9:30 AM BOAT RENTAL CLERK Office Visit [facility]-[address] [phone] Carlos Farris MD [facility] [address] [place] [address] 11/02/2024 10:20 AM BOAT RENTAL CLERK Office Visit [facility] Medical Group Family & Internal Medicine - [address] [phone] Sami Liriano DO [address] [place] [address] documented as of this encounter Visit Diagnoses Not on filedocumented in this encounter Additional Health Concerns Infection Onset Date Last Indicated Resolved Time COVID-19 Rule Out 10/11/2021 10/11/2021 10/12/2021 1:13 AM BOAT RENTAL CLERK COVID-19 Confirmed 10/11/2021 10/11/2021 12:35 AM BOAT RENTAL CLERK Assessment Noted Time PHQ-9 Depression Total Score: 0 10/11/19 22 10:50 AM BOAT RENTAL CLERK documented as of this encounter Care Teams Stage Manager Relationship Specialty Start Date End Date Sami Liriano DO [address] [place] [address] PCP - General FAMILY PRACTICE 12/24/19 documented as of this encounter
--- OUTSIDE RECORDS SUMMARY | 2024-09-19 12:20 | XMS_ITS | Encounter Summary ---
Author Organization [facility] Address [address] [place] [address]. [place], [place] [address] [place] [address] Care Team Providers Care Network Specialist Name Role Phone Sami Liriano DO Primary Care Provider + Reason for Visit * Reason Onset Date Comments Results 09/25/2021 Encounter Details Date Type Department Care Team (Late st Contact Info) Description 09/25/2021 Telephone [facility] Family & Internal Medicine [phone] [place] [address] Sami Liriano DO [address] [place] [address] Results Social History Tobacco Use Types [...] 3, please move on to questions 3-9 1 06/22/2021 Comments No Sex and Gender Information Value Date Recorded Sex Assigned at Not on file Legal Sex Female 12:43 PM HYDRAULIC DESIGN ENGINEER Gender Identity Female 12/18/2021 6:31 AM CDT Sexual Orientation Straight 01/15/2022 6: 11 AM CDT 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 No / Unsure 09/19/2021 9:43 AM HYDRAULIC DESIGN ENGINEER documented as of this encounter Progress Notes * Radha Oglesby MA - 09/25/2021 10:46 AM CST Patient notified and v/u AULIC DESIGN ENGINEER * Radha Oglesby MA - 09/25/2021 10:46 AM CST ----- Message from Sami Liriano DO sent at 09/24/2021 10:05 PM HYDRAULIC DESIGN ENGINEER ----- Labs are notably improved. Please ensure pt has returned to only one potassium tab daily. Can recheck at next OV. AULIC DESIGN ENGINEER documented in this encounter Plan of Treatment Upcoming Encounters Date Type Department Care Team (Late st Contact Info) Description 10/09/2024 9:30 AM HYDRAULIC DESIGN ENGINEER Office Visit [facility] [phone] Carlos Farris MD [address] [facility] [address] [place] [address] 11/02/2024 10:20 AM HYDRAULIC DESIGN ENGINEER Office Visit [facility] Family & Internal Medicine - [address] [phone] Sami Liriano DO [address] [place] [address] documented as of this encounter Visit Diagnoses Not on filedocumented in this encounter Additional Health Concerns Assessment Noted Time PHQ-9 Depression Total Score: 5 06/22/20 21 10:07 AM CDT documented as of this encounter Care Teams Network Specialist Relationship Specialty Start Date End Date Sami Liriano DO [address] [place] [address] PCP - General FAMILY PRACTICE 12/24/19 documented as of this encounter
--- OUTSIDE RECORDS SUMMARY | 2024-09-19 12:20 | XMS_ITS | Encounter Summary ---
Author Organization [facility] Address [facility]. 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 No / Unsure 09/19/2021 9:43 AM CRABBING 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 documented as of this encounter Plan of Treatment Upcoming Encounters Date Type Department Care Team (Late st Contact Info) Description 10/09/2024 9:30 AM CRABBING 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 Office Visit [facility] [phone] Carlos Farris MD [address] [facility] [address] [place] [address] 11/02/2024 10:20 AM CRABBING 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 Office Visit [facility] Family & Internal Medicine - [address] [phone] Sami Liriano DO [address] [place] [address] documented as of this encounter Visit Diagnoses Not on filedocumented in this encounter Additional Health Concerns Assessment Noted Time PHQ-9 Depression Total Score: 5 06/22/20 21 10:07 AM CDT documented as of this encounter Care Teams Estimator Binding Relationship Specialty Start Date End Date Sami Liriano DO [address] [place] [address] PCP - General FAMILY PRACTICE 12/24/19 documented as of this encounter
--- OUTSIDE RECORDS SUMMARY | 2024-09-19 12:20 | XMS_ITS | Encounter Summary ---
Author Organization [facility] Address [address] [place] [address]. [place], [place] [address] [place] [address] Care Team Providers Care Flying Squad Salesperson Name Role Phone Sami Liriano DO Primary Care Provider + Reason for Visit * Reason Onset Date Comments Other 10/09/2021 Encounter Details Date Type Department Care Team (Late st Contact Info) Description 10/09/2021 Telephone [facility] Family & Internal Medicine [address] [place] [address] Sami Liriano DO [facility] [place] [address] Other Social History Tobacco Use Types Packs/Day Years [...] on file Legal Sex Female 12:43 PM HOLLOCK MAKER Gender Identity Female 12/18/2021 6:31 AM CDT [...] COVID-19? No / Unsure 09/19/2021 9:43 AM HOLLOCK MAKER documented as of this encounter Progress Notes * Deb Varela RN - 10/10/2021 4:25 PM CST Called and spoke with patient. She is scheduled for a VV on 10/11/21. Patient will also come in the morning to have offical covid test in order to have the infusion done. Opportunity given for all questions to be answered, no further needs voiced at this time. LL-10/10/21 OCK MAKER * Deb Varela RN - 10/10/2021 10:30 AM CST Attempted to call the patient, was unable to reach them at this time. Left a message requesting a call back. LL-10/10/21 OCK MAKER * Poppy Alas - 10/10/2021 10:19 AM CST Patient calling back in. She would like to do the antibodies infusion now. She feels pretty bad OCK MAKER * Deb Varela RN - 10/09/2021 1:30 PM CST Patient stated she has tolerated that medication in the past. Sent over to pharmacy. Opportunity given for all questions to be answered, no further needs voiced at this time. LL-10/09/21 OCK MAKER * Sami Liriano DO - 10/09/2021 1:15 PM CST Cefdinir pended; let us know if not improving. Pt has tolerated cefdinir in the past around 03/03/21. OCK MAKER * Deb Varela RN - 10/09/2021 12:55 PM CST Called and spoke with patient regarding antibody treatment. Patient declined treatment at this time. Advised patient to increase fluid intake, try OTC zinc, vit D and vit C. Make sure to increase ambulation around the house. Quarantine for 5 days or until symptoms subside. Patient also stated she is having increased urinary frequency and dysuria. Patient is wondering if PCP can start her on an antibiotic for possible UTI? Please advise Allergies- Penicillins, Sulf antibiotics Pharmacy- [facility]-10/09/21 OCK MAKER * Shabana Pendleton - 10/09/2021 10:53 AM CST Tested positive with covid Buffy. Morning, symptoms are getting worse. Fever at night, cold chills,coughing. . OCK MAKER documented in this encounter Plan of Treatment Upcoming Encounters Date Type Department Care Team (Late st Contact Info) Description 10/09/2024 9:30 AM HOLLOCK MAKER Office Visit [facility] [phone] Carlos Farris MD Three [facility] [address] [place] [address] 11/02/2024 10:20 AM HOLLOCK MAKER Office Visit [facility] Family & Internal Medicine - [address] [phone] Sami Liriano DO [address] [place] [address] documented as of this encounter Visit Diagnoses Diagnosis UTI (urinary tract infection)- Primary Urinary tract infection, site not specified documented in this encounter Additional Health Concerns Infection Onset Date Last Indicated Resolved Time COVID-19 Rule Out 10/06/2021 10/11/2021 10/11/2021 8:45 AM HOLLOCK MAKER Assessment Noted Time PHQ-9 Depression Total Score: 5 06/22/20 21 10:07 AM CDT documented as of this encounter Care Teams Flying Squad Salesperson Relationship Specialty Start Date End Date Sami Liriano DO [address] [place] [address] PCP - General FAMILY PRACTICE 12/24/19 documented as of this encounter
--- OUTSIDE RECORDS SUMMARY | 2024-09-19 12:20 | XMS_ITS | Encounter Summary ---
Author Organization [facility] Address [address] [place] [address]. [place], [place] [address] [place] [address] Care Team Providers Care Bridge Manager Name Role Phone Sami Liriano DO Primary Care Provider + Encounter Details Date Type Department Care Team (Latest Contact Info) Description 10/11/2021 - 10/11/2021 11:59 PM DEPOSIT REFUND CLERK Hospital Encounter [facility] [address] [place] [address] Sami Liriano DO [address] [place] [address] Discharge Disposition: Home or Self [...] on file Legal Sex Female 12:43 PM DEPOSIT REFUND CLERK Gender Identity Female 12/18/2021 6:31 AM CDT Sexual Orientation Straight 01/15/2022 6: 11 AM CDT 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 Unable to assess 10/11/2021 1:32 PM DEPOSIT REFUND CLERK documented as of this encounter Medications at Time of Discharge acetaminophen 325 MG tablet Take 2 tablets (650 mg total) by mouth every 6 (six) hours as needed for Pain. albuterol sulfate HFA 108 (90 Base) MCG/ACT inhaler 10/11/2021 2 albuterol sulfate HFA 108 (90 Base) MCG/ACT inhaler 10/11/2021 3 atorvastatin (LIPITOR) 10 MG tablet Take 1 tablet by mouth nightly. 05/19/2021 2 azithromycin (ZITHROMAX) 250 MG tabletIndications: Fever, unspecified fever cause,Chills,Cough Take 2 tabs the first day, then take 1 tab daily 6 tablet 10/11/2021 2 benzonatate 100 MG capsuleIndications :Cough Take 1-2 capsules by mouth tid prn 40 capsule 10/06/2021 2 Blood Glucose Monitoring Suppl (ONE TOUCH ULTRA 2) w/Device KitIndications:Typ e 2 diabetes mellitus without complication, without long-term current use of insulin ([facility]) Check blood sugar once daily [...] without prior episode ([facility]) TAKE 1 TABLET BY MOUTH EVERY DAY 90 tablet 1 09/20/2021 2 FUROSEMIDE 20 MG tabletIndications: Essential hypertension TAKE 1 TABLET BY MOUTH EVERY DAY 90 tablet 1 09/20/2021 2 Glucose Blood test stripIndications:T ype 2 diabetes mellitus without complication, without long-term current use of insulin ([facility]) Check blood sugar once daily in AM when fasting 100 strip 11 08/07/2021 4 Lancets (ONETOUCH ULTRASOFT) lancetsIndications :Type 2 diabetes mellitus without complication, without long-term current use of insulin ([facility]) Check blood sugar once daily in AM when fasting 1 each 11 08/07/2021 4 LISINOPRIL 40 MG tabletIndications: Essential hypertension TAKE 1 TABLET BY MOUTH EVERY DAY 90 tablet 1 09/20/2021 2 metFORMIN ER 500 MG 24 hr tabletIndications: Type 2 diabetes mellitus without complication, without long-term current use of insulin ([facility]) Take 1 tablet (500 mg [...] st Contact Info) Description 10/09/2024 9:30 AM DEPOSIT REFUND CLERK Office Visit [facility]-[address] [phone] Carlos Farris MD [facility] [address] [facility] [place] [address] 11/02/2024 10:20 AM DEPOSIT REFUND CLERK Office Visit [facility] Family & Internal Medicine - [place] [address] [place] [address] Sami Liriano DO [address] [place] [address] documented as of this encounter Visit Diagnoses Not on filedocumented in this encounter Additional Health Concerns Infection Onset Date Last Indicated Resolved Time COVID-19 Rule Out 10/06/2021 10/11/2021 10/11/2021 8:45 AM DEPOSIT REFUND CLERK COVID-19 Rule Out 10/11/2021 10/11/2021 10/12/2021 1:13 AM DEPOSIT REFUND CLERK Assessment Noted Time PHQ-9 Depression Total Score: 0 10/11/19 22 10:50 AM DEPOSIT REFUND CLERK documented as of this encounter Care Teams Bridge Manager Relationship Specialty Start Date End Date Sami Liriano DO [address] [place] [address] PCP - General FAMILY PRACTICE 12/24/19 documented as of this encounter
--- OUTSIDE RECORDS SUMMARY | 2024-09-19 12:20 | XMS_ITS | Encounter Summary ---
Author Organization [facility] Address [facility]. [place], [place] [address] [place] [address] Care Team Providers Care Manager Compliance Name Role Phone Sami Liriano Primary Care Provider + Encounter Details Date Type Department Care Team (Latest Contact Info) Description 10/11/2021 Travel Social History Tobacco Use Types Packs/Day [...] on file Legal Sex Female 12:43 PM ACID LEVELER Gender Identity Female 12/18/2021 6:31 AM CDT [...] COVID-19? Unable to assess 10/11/2021 1:32 PM ACID LEVELER documented as of this encounter Plan of Treatment Upcoming Encounters Date Type Department Care Team (Late st Contact Info) Description 10/09/2024 9:30 AM ACID LEVELER Office Visit [facility]-[address] [phone] Carlos Farris MD [address] [facility] [address] [place] [address] 11/02/2024 10:20 AM ACID LEVELER Office Visit [facility] Family & Internal Medicine - [address] [phone] Sami Liriano DO [address] [place] [address] documented as of this encounter Visit Diagnoses Not on filedocumented in this encounter Additional Health Concerns Infection Onset Date Last Indicated Resolved Time COVID-19 Rule Out 10/06/2021 10/11/2021 10/11/2021 8:45 AM ACID LEVELER COVID-19 Rule Out 10/11/2021 10/11/2021 10/12/2021 1:13 AM ACID LEVELER Assessment Noted Time PHQ-9 Depression Total Score: 0 10/11/19 22 10:50 AM ACID LEVELER documented as of this encounter Care Teams Manager Compliance Relationship Specialty Start Date End Date Sami Liriano DO [address] [place] [address] PCP - General FAMILY PRACTICE 12/24/19 documented as of this encounter
--- OUTSIDE RECORDS SUMMARY | 2024-09-19 12:20 | XMS_ITS | Encounter Summary ---
Author Organization [facility] Address [address] [place] [address]. 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 Yes 10/19/2021 1:15 PM SENIOR VICE PRESIDENT documented as of this encounter Plan of Treatment Upcoming Encounters Date Type Department Care Team (Late st Contact Info) Description 10/09/2024 9:30 AM SENIOR VICE PRESIDENT Office Visit [facility]-[address] [phone] Carlos Farris MD [address] [facility] [address] [place] [address] 11/02/2024 10:20 AM SENIOR VICE PRESIDENT Office Visit [facility] Family & Internal Medicine - [address] [phone] Sami Liriano DO [address] [place] [address] documented as of this encounter Procedures Procedure Name Priority Date/Time Associated Diagnosis Comments CT GENERIC 10/11/2021 IMAGE GENERIC 10/11/2021 documented in this encounter Results * IMAGE GENERIC (10/11/2021) Anatomical Region Laterality Modality Other 10/11/2021 Narrative 10/11/2021 Ordered by an unspecified provider. us Documents Scanned SCANNING Final Result * CT GENERIC (10/11/2021) Anatomical Region Laterality Modality Other 10/11/2021 Narrative 10/11/2021 Ordered by an unspecified provider. us Documents Scanned SCANNING Final Result documented in this encounter Visit Diagnoses Not on filedocumented in this encounter Additional Health Concerns Infection Onset Date Last Indicated Resolved Time COVID-19 Rule Out 10/06/2021 10/11/2021 10/11/2021 8:45 AM SENIOR VICE PRESIDENT COVID-19 Rule Out 10/11/2021 10/11/2021 10/12/2021 1:13 AM SENIOR VICE PRESIDENT COVID-19 Confirmed 10/11/2021 10/11/2021 12:35 AM SENIOR VICE PRESIDENT Assessment Noted Time PHQ-9 Depression Total Score: 0 10/11/19 22 10:50 AM SENIOR VICE PRESIDENT documented as of this encounter Care Teams Dental Assisting Instructor Relationship Specialty Start Date End Date Sami Liriano DO [address] [place] [address] PCP - General FAMILY PRACTICE 12/24/19 documented as of this encounter
--- OUTSIDE RECORDS SUMMARY | 2024-09-19 12:20 | XMS_ITS | Encounter Summary ---
Author Organization [facility] Address [address] [place] [address]. [place], [place] [address] [place] [address] Care Team Providers Care Ship'S Carpenter Name Role Phone Sami Liriano DO Primary Care Provider + Reason for Visit * Reason Onset Date Comments Advise 10/06/2021 Encounter Details Date Type Department Care Team (Late st Contact Info) Description 10/06/2021 Telephone [facility] Family & Internal Medicine [facility] [address] [place] [address] Sami Liriano DO 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 No / Unsure 09/19/2021 9:43 AM SERVICE ORDER CLERK documented as of this encounter Progress Notes * Radha Oglesby MA - 10/06/2021 3:42 PM CST Left detailed message , rx and order sent 10/06/21 ICE ORDER CLERK ICE ORDER CLERK * Sami Liriano DO - 10/06/2021 10:55 AM CST Noted; let's do an Charles confirmatory test. Tyelnol for fevers. Can do Tessalon Perles if she'd like. ICE ORDER CLERK * Maria Del Rosario York - 10/06/2021 10:41 AM CST Patient is wanting to inform us that on 10/04, she tested positive fr covid on an at home test. She is having sore throat, dry cough and 103 fever. ICE ORDER CLERK documented in this encounter Plan of Treatment Upcoming Encounters Date Type Department Care Team (Late st Contact Info) Description 10/09/2024 9:30 AM SERVICE ORDER CLERK Office Visit [facility]-[address] [phone] [facility] [address] [facility] [place] [address] 11/02/2024 10:20 AM SERVICE ORDER CLERK Office Visit [facility] Group Family & Internal Medicine - [address] [place] [address] Sami Liriano DO [address] [place] [address] Scheduled Orders Name Type Priority Associated Diagnoses Orde r Schedule EXTERNAL ORDER COVID19 Microbiology Routine Cough Sore throat Fever Expected: 10/06/2021, Expires: 10/06/2022 documented as of this encounter Visit Diagnoses Diagnosis Cough- Primary Sore throat Acute pharyngitis Fever Fever, unspecified documented in this encounter Additional Health Concerns Infection Onset Date Last Indicated Resolved Time COVID-19 Rule Out 10/06/2021 10/11/2021 10/11/2021 8:45 AM SERVICE ORDER CLERK Assessment Noted Time PHQ-9 Depression Total Score: 5 06/22/20 21 10:07 AM CDT documented as of this encounter Care Teams Ship'S Carpenter Relationship Specialty Start Date End Date Sami Liriano DO [address] [place] [address] PCP - General FAMILY PRACTICE 12/24/19 documented as of this encounter
--- OUTSIDE RECORDS SUMMARY | 2024-09-19 12:21 | XMS_ITS | Encounter Summary ---
Author Organization [facility] Address [address] [place] [address]. [place], [place] [id number] [place] [address] Care Team Providers Care Fan Installer Name Role Phone Sami Liriano DO Primary Care Provider + Reason for Visit * Reason Comments Follow Up 1 month after starti ng DM medication Encounter Details Date Type Department Care Team (Late st Contact Info) Description 09/19/2021 9:40 AM METER REPAIR SHOP SUPERVISOR Office Visit [facility] Medical Group Family & Internal Medicine [phone] [place] [address] Sami Liriano DO [address] [place] [address] [phone] Follow Up (1 month after starting DM medication) Social History Tobacco Use Types Packs/Day Years [...] on file Legal Sex Female 12:43 PM METER REPAIR SHOP SUPERVISOR Gender Identity Female 12/18/2021 6:31 AM [...] COVID-19? No / Unsure 09/19/2021 9:43 AM METER REPAIR SHOP SUPERVISOR documented as of this encounter Last Filed Vital Signs Vital Sign Reading Time Taken Comments Blood Pressure 124/60 09/19/2021 9:49 AM METER REPAIR SHOP SUPERVISOR Pulse 86 09/19/2021 9:49 AM METER REPAIR SHOP SUPERVISOR Temperature 36.7 ??C (98 ??F) 09/19/2021 9:49 AM METER REPAIR SHOP SUPERVISOR Respiratory Rate 16 09/19/2021 9:49 AM METER REPAIR SHOP SUPERVISOR Oxygen Saturation 98% 09/19/2021 9:49 AM METER REPAIR SHOP SUPERVISOR Inhaled Oxygen Concentration - - Weight 110.6 kg (243 lb 12.8 oz) 09/19/2021 9:49 AM METER REPAIR SHOP SUPERVISOR Height 153.7 cm (5' 0.5 ) 09/19/2021 9:49 AM METER REPAIR SHOP SUPERVISOR Body Mass Index 46.83 09/19/2021 9:49 AM METER REPAIR SHOP SUPERVISOR documented in this encounter Progress Notes * Sami Liriano, - 09/19/2021 9:40 AM CST Images from the original note were not included. GENERAL OFFICE VISIT Encounter Date: 09/19/2021 Chief Complaint: 66-year-old female presents for Follow Up (1 month after starting DM medication) HPI: Patient presents for Diabetes follow-up. Patient has Type 2 Diabetes. Patient has had diabetes for less than 1 year. Medications include metformin ER. BS logs range: 100-120. Patient's weight has gone down 5 lbs. Current symptoms include none. HGB A1C Date Value Ref Range Status 07/14/2021 7.1 (H) 3.80 - 5.60 % Final CHOLESTEROL Date Value Ref Range Status 08/07/2021 153 <200 MG/DL Final TRIGLYCERIDE Date Value Ref Range Status 08/07/2021 161 (H) <150 MG/DL Final HDL Date Value Ref Range Status 08/07/2021 47 >40 MG/DL Final LDL (CALCULATED) Date Value Ref Range Status 09/05/2020 150 (H) <100 MG/DL Final AST Date Value Ref Range Status 08/07/2021 21 15 - 37 U/L Final HGB Date Value Ref Range Status 08/07/2021 12.5 12.0 - 16.0 G/DL Final TSH Date Value Ref Range Status 08/07/2021 1.839 0.358 - 3.740 uIU/ML Final CREATININE S/P/B Date Value Ref Range Status 08/07/2021 1.35 (H) 0.55 - 1.02 MG/DL Final eGFR Afr. Amer. Date Value Ref Range Status 08/07/2021 47 (L) >90 ML/MIN/1.73 M2 Final MICROALBUMIN (U) Date Value Ref Range Status 08/07/2021 6.7 <20 MG/L Final Pt has CKD stage 3a and hypokalemia; she is needing this rechecked today. She stopped furosemide asit was only helping with swelling. Review of Systems Constitutional: Negative for fever. Respiratory: Negative for shortness of breath. Cardiovascular: Negative for chest pain. Gastrointestinal: Negative for abdominal pain, nausea and vomiting. Patient Active Problem List Diagnosis ??? Alopecia [...] 3 performed by Joel Keenan MD at [facility] OR ??? EGD ??? HERNIA [...] file Occupational History ??? 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 Smoking status: Former [...] AM when fasting 1 each 11 ??? metFORMIN ER 500 MG 24 hr [...] once daily in AM when fasting ??? metFORMIN ER 500 MG 24 hr [...] ??? Sulfa Antibiotics Rash Objective: Filed Vitals: 09/19/21 0949 BP: 124/60 Pulse: 86 Resp: 16 Temp: 98 ??F (36.7 ??C) TempSrc: Skin SpO2: 98% Weight: 110.6 kg (243 lb 12.8 oz) Height: 5' 0.5 (1.537 m) Physical [...] abdominal tenderness. Musculoskeletal: Cervical back: Neck supple. Skin: General: Skin is warm and dry. Neurological: Mental Status: She is alert and oriented to person, place, and time. Assessment & Plan: Jolly was seen today for follow up. Diagnoses and all orders for this visit: Type 2 diabetes mellitus without complication, without long-term current use of insulin ([facility]) Stage 3a chronic kidney disease ([facility]) - COMPREHENSIVE METABOLIC PANEL; Future - VENIPUNC ARM DRAW - CBC W/DIFF AUTOMATED; Future - CBC W/DIFF AUTOMATED - COMPREHENSIVE METABOLIC PANEL Hypokalemia - COMPREHENSIVE METABOLIC PANEL; Future - VENIPUNC ARM DRAW - CBC W/DIFF AUTOMATED; Future - CBC W/DIFF AUTOMATED - COMPREHENSIVE METABOLIC PANEL Need for prophylactic vaccination against Streptococcus pneumoniae (pneumococcus) - [74200] Pneumovax 23 (Pneumococcal) Discussion/Summary: Continue metformin. Will order labs as per above; continue furosemide cessation. Will give Pneumovax-23 today. Will have pt f/u in 3 months for reassessment. Pt v/u. Sami Liriano DO R REPAIR SHOP SUPERVISOR documented in this encounter Plan of Treatment Upcoming Encounters Date Type Department Care Team (Late st Contact Info) Description 10/09/2024 9:30 AM METER REPAIR SHOP SUPERVISOR Office Visit [facility] [phone] Carlos Farris MD [address] [facility] [address] [place] [address] 11/02/2024 10:20 AM METER REPAIR SHOP SUPERVISOR Office Visit [facility] Medical Group Family & Internal Medicine [phone] [place] [address] Sami Liriano DO [address] [place] [address] documented as of this encounter Procedures Procedure Name Priority Date/Time Associated Diagnosis Comments COMPREHENSIVE METABOLIC PANEL Routine 09/19/2021 10:26 AM METER REPAIR SHOP SUPERVISOR Stage 3a chronic kidney disease (CMS/HCC HHS/HCC) Hypokalemia CBC W/DIFF AUTOMATED Routine 09/19/2021 10:26 AM METER REPAIR SHOP SUPERVISOR Stage 3a chronic kidney disease (CMS/HCC HHS/HCC) Hypokalemia VENIPUNC ARM DRAW Routine 09/19/2021 10: 17 AM METER REPAIR SHOP SUPERVISOR Stage 3a chronic kidney disease (CMS/HCC HHS/HCC) Hypokalemia documented in this encounter Results * (ABNORMAL) CBC W/DIFF AUTOMATED (09/19/2021 10:26 AM METER REPAIR SHOP SUPERVISOR) [facility] WBC 10.2 4.0 - 10.8 x10'3/uL 09/19/2021 3:19 PM METER REPAIR SHOP SUPERVISOR [facility] RBC 4.30 4.10 - 5.40 x10'6/uL 09/19/2021 3:19 PM METER REPAIR SHOP SUPERVISOR [facility] HGB 12.2 12.0 - 16.0 G/DL 09/19/2021 3:19 PM METER REPAIR SHOP SUPERVISOR [facility] HCT 38.0 36.0 - 47.0 % 09/19/2021 3:19 PM METER REPAIR SHOP SUPERVISOR [facility] MCV 88.4 78.0 - 100.0 FL 09/19/2021 3:19 PM METER REPAIR SHOP SUPERVISOR [facility] MCH 28.4 27.0 - 31.0 PG 09/19/2021 3:19 PM [place] MCHC 32.1(L) 33.0 - 36.0 G/DL 09/19/2021 3:19 PM [place] RDW 14.5 11.5 - 14.5 % 09/19/2021 3:19 PM [place] PLT 261 150 - 350 x10'3/uL 09/19/2021 3:19 PM [place] MPV 10.2 7.4 - 10.4 FL 09/19/2021 3:19 PM [place] DIFFERENTIAL TYPE AUTOMATED DIFFERENTIAL 09/19/2021 3:20 PM [place] NEUTROPHILS % 63.8 % 09/19/2021 3:20 PM [place] LYMPHOCYTES % 28.2 % 09/19/2021 3:20 PM [place] MONOCYTES % 6.5 % 09/19/2021 3:20 PM [place] EOSINOPHILS % 1.1 % 09/19/2021 3:20 PM [place] BASOPHILS % 0.3 % 09/19/2021 3:20 PM [place] IMMATURE GRANS % 0.1 % 09/19/2021 3:20 PM [place] ABS. NEUTROPHILS 6.53 1.60 - 8.30 x10'3/uL 09/19/2021 3:20 PM [place] ABS. LYMPHOCYTES 2.88 0.80 - 4.70 x10'3/uL 09/19/2021 3:20 PM [place] ABS. MONOCYTES 0.66 0.00 - 1.50 x10'3/uL 09/19/2021 3:20 PM [place] ABS. EOSINOPHILS 0.11 0.00 - 0.40 x10'3/uL 09/19/2021 3:20 PM METER REPAIR SHOP SUPERVISOR [facility] ABS. BASOPHILS 0.03 0.00 - 0.20 x10'3/uL 09/19/2021 3:20 PM METER REPAIR SHOP SUPERVISOR [facility] ABS. IMMATURE GRANULOCYTES 0.01 0.00 - 0.03 x10'3/uL 09/19/2021 3:20 PM METER REPAIR SHOP SUPERVISOR [facility] 09/19/2021 10:2 6 AM METER REPAIR SHOP SUPERVISOR us Sami Liriano DO LABORATORY Final Re sult [facility] [address] [place] [address], * (ABNORMAL) COMPREHENSIVE METABOLIC PANEL (09/19/2021 10:26 AM METER REPAIR SHOP SUPERVISOR) SODIUM S/P/B 140 136 - 145 MMOL/L 09/19/2021 5:17 PM METER REPAIR SHOP SUPERVISOR [facility] POTASSIUM S/P/B 4.8 3.5 - 5.1 MMOL/L 09/19/2021 5:17 PM METER REPAIR SHOP SUPERVISOR [facility] CHLORIDE S/P/B 103 98 - 107 MMOL/L 09/19/2021 5:17 PM METER REPAIR SHOP SUPERVISOR [facility] CO2 25.8 21 - 32 MMOL/L 09/19/2021 5:17 PM METER REPAIR SHOP SUPERVISOR [facility] GLUCOSE 128(H) 70 - 99 MG/DL 09/19/2021 5:17 PM METER REPAIR SHOP SUPERVISOR [facility] BUN 34(H) 6 - 24 MG/DL 09/19/2021 5:17 PM METER REPAIR SHOP SUPERVISOR [facility] CREATININE S/P/B 1.21(H) 0.55 - 1.02 MG/DL 09/19/2021 5:17 PM METER REPAIR SHOP SUPERVISOR [facility] CALCIUM S/P/B 10.0 8.4 - 10.5 MG/DL 09/19/2021 5:17 PM [facility] [place] BILIRUBIN TOTAL S/P/B 0.9 0.2 - 1.0 MG/DL 09/19/2021 5:17 PM [place] ALKALINE PHOSPHATASE S/P/B 87 55 - 142 U/L 09/19/2021 5:17 PM [place] AST 15 15 - 37 U/L 09/19/2021 5:17 PM [place] ALT 25 14 - 59 U/L 09/19/2021 5:17 PM [place] TOTAL PROTEIN S/P/B 8.1 6.4 - 8.2 G/DL 09/19/2021 5:17 PM [place] ALBUMIN S/P/B 4.4 3.4 - 5.0 G/DL 09/19/2021 5:17 PM [facility] ANION GAP 11.2 5 - 15 MMOL/L 09/19/2021 5:17 PM [facility] Comment:REFERENCE RANGE NOT ESTABLISHED OSMOLALITY (CALC) 299 MOSM/KG 09/19/2021 5:17 PM [facility] Comment:REFERENCE RANGE NOT ESTABLISHED EGFR NON-AFR. AMER. 46(L) >90 ML/MIN/1 .73 M2 09/19/2021 5:17 PM [facility] EGFR AFR. AMER. 53(L) >90 ML/MIN/1 .73 M2 09/19/2021 5:17 PM [facility] GFR NOTES THE ESTIMATED GFR IS CALCULATED USING THE 2009 CKD-EPI EQUATION. THE FOLLOWING CATEGORIES FOR GRADING RENAL FUNCTION ARE RECOMMENDED BY THE INTERNATIONAL SOCIETY OF NEPHROLOGY (KDIGO 2012 CLINICAL PRACTICE GUIDELINE). 09/19/2021 5:17 PM [facility] Comment: G1,NORMAL OR HIGH: >89 ml/min/1.73 m2 G2,MILDLY DECREASED: 60-89 ml/min/1.73 m2 G3A,MILDLY TO MODERATELY DECREASED: 45-59 ml/min/1.73 m2 G3B,MODERATELY TO SEVERELY DECREASED: 30-44 ml/min/1.73 m2 G4,SEVERELY DECREASED: 15-29 ml/min/1.73 m2 G5,KIDNEY FAILURE: <15 ml/min/1.73 m2 09/19/2021 10:2 6 AM METER REPAIR SHOP SUPERVISOR Sami Liriano DO LABORATORY Final Re sult [facility] [address] [place] [address], documented in this encounter Visit Diagnoses Diagnosis Type 2 diabetes mellitus without complication, without long-term current use of insulin ([facility])- Primary Stage 3a chronic kidney disease ([facility]) Hypokalemia Hypopotassemia Need for prophylactic vaccination against Streptococcus pneumoniae (pneumococcus) Need for prophylactic vaccination against streptococcus pneumoniae (pneumococcus) documented in this encounter Additional Health Concerns Assessment Noted Time PHQ-9 Depression Total Score: 5 06/22/20 21 10:07 AM CDT documented as of this encounter Care Teams Fan Installer Relationship Specialty Start Date End Date Sami Liriano DO [address] [place] [phone] PCP - General FAMILY PRACTICE 12/24/19 documented as of this encounter
--- OUTSIDE RECORDS SUMMARY | 2024-09-19 12:21 | XMS_ITS | Encounter Summary ---
Author Organization [facility] Address [address] [place] [address]. [place], [place] [phone] [place] [address] Care Team Providers Care Toe Sewer Name Role Phone Sami Liriano DO Primary Care Provider + Reason for Visit * Reason Onset Date Comments Diarrhea 08/28/2021 Encounter Details Date Type Department Care Team (Late st Contact Info) Description 08/28/2021 Telephone [facility] Medical Group Family & Internal Medicine [phone] [place] [address] Sami Liriaon DO [facility] [place] [address] Diarrhea Social History Tobacco Use Types Packs/Day Years [...] file Legal Sex Female 12:43 PM GENERAL MAGISTRATE Gender Identity Female 12/18/2021 6:31 AM CDT [...] have Coronavirus / COVID-19? No / Unsure 08/07/2021 9:32 AM GENERAL MAGISTRATE documented as of this encounter Progress Notes * Radha Ogelsby MA - 08/28/2021 3:26 PM CST Patient notified and v/u RAL MAGISTRATE * Sami Liriano DO - 08/28/2021 9:26 AM CST I have had pts with this, yes. I actually recommend just Immodium OTC at this time; works very wellfor diarrhea. Ensure there is no blood. RAL MAGISTRATE * Maria Del Rosario [place] - 08/28/2021 9:13 AM CST Patient is asking if there is a virus going around. States that she has been vomiting and diarrhea for 3 days. The vomiting has pretty much stopped but she is still having the diarrhea. She is asking if we can call something out for the diarrhea. [facility] [place] [facility]. RAL MAGISTRATE documented in this encounter Plan of Treatment Upcoming Encounters Date Type Department Care Team (Late st Contact Info) Description 10/09/2024 9:30 AM GENERAL MAGISTRATE Office Visit [facility]-[address] [address] [facility] [address] [place] [address] 11/02/2024 10:20 AM GENERAL MAGISTRATE Office Visit [facility] Medical Group Family & Internal Medicine - [place] [address] [place] [address] Sami Liriano DO [address] [place] [phone] documented as of this encounter Visit Diagnoses Not on filedocumented in this encounter Additional Health Concerns Assessment Noted Time PHQ-9 Depression Total Score: 5 06/22/20 21 10:07 AM CDT documented as of this encounter Care Teams Toe Sewer Relationship Specialty Start Date End Date Sami Liriano DO [address] [place] [phone] PCP - General FAMILY PRACTICE 12/24/19 documented as of this encounter
--- OUTSIDE RECORDS SUMMARY | 2024-09-19 12:21 | XMS_ITS | Encounter Summary ---
Author Organization [facility] Address [address] [place] [address]. [place], [place] [phone] [place] [address] Care Team Providers Care Product Management Consultant Name Role Phone Sami Liriano DO Primary Care Provider + Reason for Visit * Reason Onset Date Comments Lab Results 07/19/2021 Encounter Details Date Type Department Care Team (Late st Contact Info) Description 07/19/2021 Telephone [facility] Medical Group Family & Internal Medicine [facility] [address] [place] [address] Sami Liriano DO [facility] [place] [address] Lab Results Social History Tobacco [...] on file Legal Sex Female 12:43 PM AVIATION SURVIVAL TECHNICIAN Gender Identity Female 12/18/2021 6:31 AM [...] have Coronavirus / COVID-19? No / Unsure 07/17/2021 7:34 AM CDT documented as of this encounter Progress Notes * Kelsi Marcus RRT - 07/19/2021 7:59 AM CDT Pt notified and v/u. F/U appt made. * Kelsi Marcus RRT - 07/19/2021 7:58 AM CDT ----- Message from Sami Liriano DO sent at 07/16/2021 11:16 AM CDT ----- Pt's A1c is now consistent with diabetes. Needs to schedule f/u to discuss. Do not use same day. documented in this encounter Plan of Treatment Upcoming Encounters Date Type Department Care Team (Late st Contact Info) Description 10/09/2024 9:30 AM AVIATION SURVIVAL TECHNICIAN Office Visit [facility]-[address] [phone] Carlos Farris MD [facility] [address] [facility] [place] [address] 11/02/2024 10:20 AM AVIATION SURVIVAL TECHNICIAN Office Visit [facility] Medical Group Family & Internal Medicine - [address] [phone] Sami Liriano DO [address] [place] [address] documented as of this encounter Visit Diagnoses Not on filedocumented in this encounter Additional Health Concerns Assessment Noted Time PHQ-9 Depression Total Score: 5 06/22/20 21 10:07 AM CDT documented as of this encounter Care Teams Product Management Consultant Relationship Specialty Start Date End Date Sami Liriano DO [address] [place] [address] PCP - General FAMILY PRACTICE 12/24/19 documented as of this encounter
--- OUTSIDE RECORDS SUMMARY | 2024-09-19 12:21 | XMS_ITS | Encounter Summary ---
Author Organization [facility] Address [facility]. [place], [place] [address] [place] [address] Care Team Providers Care Feedlot Manager Name Role Phone Sami Liriano DO Primary Care Provider + Reason for Visit * Reason Comments Follow Up Test Results: Echo, Venous Dup and Labs * Consultation (Routine) - Closed Specialty Diagnoses / Procedures Referred By Contac t Referred To Contact CARDIOLOGY / Cardiology Diagnoses Dyspnea on exertion Procedures OV Sami Liriano DO [address] [place] [address] Phone: tel: fax: Erik Dewitt MD 3 [facility] [address] [place] [phone] Phone: tel: fax: Referral ID Status Reason Start Date Expiration Date V isits Requested Visits Authorized [id number] Closed Specialty Services 06/15/2021 06/14/2022 6 6 Encounter Details Date Type Department Care Team (Latest Contact Info) Description 08/04/2021 10:45 AM CDT Office Visit [facility] [phone] Erik Dewitt MD 3 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 No / Unsure 08/07/2021 9:32 AM RESTAURANT WORKER documented as of this encounter Last Filed Vital Signs Vital Sign Reading Time Taken Comments Blood Pressure 164/82 08/04/2021 10:45 AM CDT pt has not taken her medications yet today Pulse 96 08/04/2021 10:45 AM CDT Temperature - - Respiratory Rate - - Oxygen Saturation 97% 08/04/2021 10: 45 AM CDT Inhaled Oxygen Concentration - - Weight 112.6 kg (248 lb 4.8 oz) 08/04/2021 10:45 AM CDT Height 153.7 cm (5' 0.5 ) 08/04/2021 10 :45 AM CDT Body Mass Index 47.69 08/04/2021 10:45 AM CDT documented in this encounter Progress Notes * Erik Dewitt MD - 08/04/2021 10:45 AM CDTAddended by: ERIK DEWITT on: 08/08/2021 10:03 AM Modules accepted: Level of Service AURANT WORKER * Erik Dewitt MD - 08/04/2021 10:45 AM CDT Reason for Visit: No chief complaint on file. History of Present Illness: This very nice 66-year-old patient of Dr. Liriano has a history of hypertension hyperlipidemia. She has been seen for shortness of breath and has been placed on diuretic therapy. She went a year ago when she came back she had a lot of edema and her blood pressure is markedly elevated. Over the next year her blood pressure came down but the edema did not get too much better. She has had increasing doses of diuretics which has had modest effect. She gets short of breath with mild physical exertion she has no orthopnea PND. No syncope. She has had a vague discomfort in the soft tissue of the right neck which does not seem to be exertional. She has had no chest pain. She tried regular support hose but simply cannot get them on her legs. She recently went to [facility] with shortnessof breath and the work-up was apparently negative. She was told that they suspected pulmonary embolism but she said she had a CAT scan and apparently was negative. Since last appointment she has been following a modified keto diet and has lost about 10 to 15 pounds. Better. She says her blood pressures are running in the 130s to 140s systolic range. She does have sleep apnea but has not been able to get the CPAP at this point. She does have the mask. She is trying to follow healthy lifestyle. She is only taking one diuretic and there is a little confusion about what exactly she is taking so we will find exactly what her medicines are now. Recommendations and Plan: Continue losing weight take your medicines and eating healthy diet will help her blood pressure. Target 130/80. I did not change her medicines today. Her renal function was off on her last blood workwith decreased GFR and I told her to drink water in the next before the next blood test. Recheck lipids and CMP in 6 months. Testing showed mild LVH left atrial large man which is due to hypertension. There is no evidence of ischemia on her stress test. She probably has some degree of asked HD and excellent risk factor control is recommended. Medications: Current Outpatient Medications: ??? acetaminophen 325 MG tablet, Take 325 mg by mouth. Take 2 in the am and 2 tabs in the pm and 1 PRN, Disp: , Rfl: ??? albuterol sulfate HFA 108 (90 Base) MCG/ACT inhaler, Inhale 2 puffs into the lungs every 4 (four) hours as needed. , Disp: , Rfl: ??? ATORVASTATIN 10 MG tablet, TAKE 1 TABLET BY MOUTH EVERYDAY AT BEDTIME, Disp: 90 tablet, Rfl: 1 ??? CHLORTHALIDONE 25 MG tablet, TAKE 1 TABLET BY MOUTH EVERY DAY, Disp: 90 tablet, Rfl: 1 ??? escitalopram 20 MG tablet, Take 20 mg by mouth daily., Disp: , Rfl: ??? furosemide 20 MG tablet, Take 3 tablets (60 mg total) by mouth daily., Disp: 180 tablet, Rfl: 3 ??? LISINOPRIL 40 MG tablet, TAKE 1 TABLET BY MOUTH EVERY DAY, Disp: 90 tablet, Rfl: 1 ??? OMEPRAZOLE 40 MG capsule, TAKE 1 CAPSULE BY MOUTH EVERY DAY, Disp: 90 capsule, Rfl: 1 ??? OXYBUTYNIN XL 5 MG 24 hr tablet, TAKE 1 TABLET BY MOUTH EVERY DAY, Disp: 90 tablet, Rfl: 1 ??? potassium chloride CR 10 MEQ Tab CR tablet, TAKE 1 TABLET BY MOUTH EVERY DAY, Disp: 90 tablet, Rfl: 1 ??? traMADol 50 MG tablet, Take 1 tablet (50 mg total) by mouth every 6 (six) hours as needed for Pain. Indications: Chronic Pain, Disp: 60 tablet, Rfl: 0 Allergies Allergen Reactions ??? Penicillins Rash ??? Sulfa Antibiotics Rash Past Medical History: Diagnosis Date ??? Arthritis ??? Arthritis of left knee 11/08/2019 ??? Depression ??? GERD (gastroesophageal reflux disease) ??? Hypertension ??? Overactive bladder Past Surgical History: Procedure Laterality Date ??? ANKLE SURGERY left ??? SECTION ??? COLONOSCOPY N/A 04/27/2020 COLONOSCOPY WITH BIOPSY X 3 performed by Joel Keenan MD at [facility] OR ??? EGD ??? HERNIA REPAIR ??? SHOULDER SURG PROC UNLISTED right ??? TONSILLECTOMY ??? TOTAL KNEE ARTHROPLASTY right Social History Tobacco Use ??? Smoking status: Former Smoker Packs/day: 1.00 Years: 12.00 Pack years: 12.00 Types: Cigarettes Quit date: 1976 Years since quittin.8 ??? Smokeless tobacco: Never Used Substance Use Topics ??? Alcohol use: Yes Comment: 2 cocktails on some Sundays ??? Drug use: Never Family History Problem Relation Name Age of Onset ??? Alzheimers Mother ??? Heart Attack Father ??? Heart Disease Father ??? Alzheimers Father ??? Alzheimers Maternal Grandmother ??? Heart Disease Paternal Grandfather Family Status Relation Name Status ??? Mother ??? Father ??? MGM (Not Specified) ??? 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 She moved back to this area to be closer to family. She has a sister who has mental disability age 7272 years old who lives with her the patient took care of her mother had Alzheimer's for 5 years and her mother . She smoked briefly as a young woman quit 45 years ago not a drinker no illicit drugs. 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 Review of Systems Respiratory not coughing or wheezing or exertional breathlessness she snores she gets sleepy duringthe day she had a negative sleep test 2 years ago. GI no melena or hematochezia she does have esophageal strictures and has had a couple of ablations done. 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 There were no vitals filed for this visit. There is no height or weight on file to calculate BMI. Cardiac Physical Exam Very nice woman overweight no distress Skin warm and dry Head normocephalic Eyes no icterus Ears no creases Mouth mask Neck no JVD or thyromegaly Lungs clear Card exam is regular no murmur gallop PMI not well palpated Abdomen no organomegaly no aneurysm Extremities 2+ edema no clubbing or cyanosis 1+ dorsalis pedis 2+ radial carotid pulses no carotid bruits Neuro no focal abn Mental status alert coherent cooperative gait normal ??10-18-21 u/s lower ext Normal study bilateral lower extremity, with no evidence of deep vein thrombosis. There is no significant reflux detected. ? Ref Range & Units 05/25/21 1031 SODIUM 136 - 145 MMOL/L 138 POTASSIUM 3.5 - 5.1 MMOL/L 3.5 CHLORIDE S/P/B 98 - 107 MMOL/L 101 CO2 21 - 32 MMOL/L 29.6 GLUCOSE 70 - 99 MG/DL 118High BUN 6 - 24 MG/DL 23 CREATININE S/P/B 0.55 - 1.02 MG/DL 1.02 CALCIUM 8.4 - 10.5 MG/DL 9.2 ANION GAP 5 - 15 MMOL/L 7.4 Comment: REFERENCE RANGE NOT ESTABLISHED OSMOLALITY (CALC) MOSM/KG 291 Comment: REFERENCE RANGE NOT ESTABLISHED eGFR Non-Afr. Amer. >90 ML/MIN/1.73 M2 56Low ?? 0911 ? GLUCOSE 65 - 99 mg/dL 125High Comment: ?Fasting reference interval ?? For someone without known diabetes, a glucose value between 100 and 125 mg/dL is consistent with prediabetes and should be confirmed with a follow-up test. ?? BUN 7 - 25 mg/dL 36High CREATININE S/P/B 0.50 - 0.99 mg/dL 1.39High Comment: For patients >49 years of age, the reference limit for Creatinine is approximately 13% higher for people identified as -Vincentian. ?? eGFR Non-Afr. Amer. > OR = 60 mL/min/1.73m2 39Low eGFR Afr. Amer. > OR = 60 mL/min/1.73m2 45Low BUN CREATININE RATIO 6 - 22 (calc) 26High SODIUM 135 - 146 mmol/L 135 POTASSIUM 3.5 - 5.3 mmol/L 4.8 CHLORIDE S/P/B 98 - 110 mmol/L 101 CO2 20 - 32 mmol/L 27 CALCIUM 8.6 - 10.4 mg/dL 9.9 TOTAL PROTEIN S/P/B 6.1 - 8.1 g/dL 7.5 ALBUMIN S/P/B 3.6 - 5.1 g/dL 4.4 GLOBULIN 1.9 - 3.7 g/dL (calc) 3.1 ALBUMIN GLOBULIN RATIO 1.0 - 2.5 (calc) 1.4 BILIRUBIN TOTAL S/P/B 0.2 - 1.2 mg/dL 1.2 ALKALINE PHOSPHATASE S/P/B 37 - 153 U/L 87 AST 10 - 35 U/L 16 ALT 6 - 29 U/L 17 ? Ref Range & Units 09/05/20 1400 CHOLESTEROL <200 MG/DL 227High TRIGLYCERIDE <150 MG/DL 150High HDL >40.0 MG/DL 47 LDL (CALCULATED) <100 MG/DL 150High NON HDL CHOLESTEROL <130 MG/DL 180High CHOL/HDL RATIO 0.0 - 4.5 4.8 ?? Ref Range & Units 09/05/20 1400 ?? TSH 0.358 - 3.74 uIU/ML 2.220 ? Ref Range & Units 12/15/20 0911 ALLYSON NEGATIVE POSITIVEAbnormal ? 2017 PSG positive for sleep apnea and 7 cm of CPAP was recommended. ??Stress conclusion: 1. Clinically negative. 2. Electrocardiographically negative treadmill test for ischemia. 3. Fair exercise capacity. 4. Campo Treadmill Score is not applicable, which indicates indeterminate risk. 5. Blood pressure response was normal. 6. Scintigraphic images to follow. 7. As patient complained of shortness of breath, treadmill speed was lowered , lexican injected. Then treadmill stopped due to dyspnea,weakness. ?? Perfusion conclusion: 1. Good study quality. No motion correction was applied to images. Breast attenuation is noted. Prone imaging was performed. 2. Normal myocardial perfusion SPECT imaging. Stress images only . 3. Normal wall motion with an ejection fraction of 76%. 4. Stress test with myocardial perfusion imaging shows overall low risk for a cardiac event. 12-30-20 renal a doppler- I no renal a stenosis 04-21-20 echo The left ventricular size is normal. Estimated left ventricular ejection fraction is >70%. Mild concentric left ventricular hypertrophy. Left ventricular diastolic function is abnormal (grade 1 - impaired relaxation). Wall motion appears normal in all segments. The right ventricular size is normal. The left atrial volume is normal ( less than 34 ml/M2). Right atrial size is normal. No evidence of pericardial effusion. Normal aortic root. Unable to reliably quantitate pulmonary systolic pressure. Inferior vena cava shows <50% collapse with respiration consistent with elevated right atrial pressure. No evidence of aortic valve stenosis. No evidence of aortic valve regurgitation. Trace mitral regurgitation. Mild pulmonic regurgitation. No evidence of tricuspid regurgitation. 07-17-21 echo The left ventricular size is normal. Estimated [...] pulmonic regurgitation. A trace of tricuspid regurgitation. 03-03-20 EKG SR,78 ,NONSPECIFIC T WAVE ABN. 03-18-20 linda doppler lower ext bilat - negative 02-05-15 lexiscan stress- no ischemia,ef 67 ?? 05-25-21 cxr - 2 view-normal Diagnoses/Impression: 1. Essential hypertension Chronic 2. Stage 3a chronic kidney disease (CMS/HCC) 3. MOR (obstructive sleep apnea) 4. ALLYSON positive 5. Mixed hyperlipidemia Referring Provider: No ref. 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 WORKER Office Visit [facility] [phone] Carlos Farris MD [facility] Suite [facility] [place] [address] 11/02/2024 10:20 AM RESTAURANT WORKER Office Visit [facility] Family & Internal Medicine - [address] [phone] Sami Liriano DO [address] [place] [address] documented as of this encounter Visit Diagnoses Diagnosis Essential hypertension- Primary Unspecified essential hypertension Stage 3a chronic kidney disease (CMS/HCC HHS/HCC) MOR (obstructive sleep apnea) Obstructive sleep apnea (adult) (pediatric) ALLYSON positive Other and unspecified nonspecific immunological findings Mixed hyperlipidemia documented in this encounter Additional Health Concerns Assessment Noted Time PHQ-9 Depression Total Score: 5 06/22/20 21 10:07 AM CDT documented as of this encounter Care Teams Feedlot Manager Relationship Specialty Start Date End Date Sami Liriano DO [address] [place] [phone] PCP - General FAMILY PRACTICE 12/24/19 documented as of this encounter
--- OUTSIDE RECORDS SUMMARY | 2024-09-19 12:21 | XMS_ITS | Encounter Summary ---
Author Organization [facility] Address [facility]6 [facility]. 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 No / Unsure 08/07/2021 9:32 AM SLUBBER FRAME CHANGER documented as of this encounter Plan of Treatment Upcoming Encounters Date Type Department Care Team (Late st Contact Info) Description 10/09/2024 9:30 AM SLUBBER FRAME CHANGER Office Visit [facility] [phone] Carlos Farris MD Three [facility] [address] [place] [address] 11/02/2024 10:20 AM SLUBBER FRAME CHANGER Office Visit [facility] Family & Internal Medicine - [address] [phone] Sami Liriano DO [address] [place] [phone] documented as of this encounter Visit Diagnoses Not on filedocumented in this encounter Additional Health Concerns Assessment Noted Time PHQ-9 Depression Total Score: 5 06/22/20 21 10:07 AM CDT documented as of this encounter Care Teams Market Risk Specialist Relationship Specialty Start Date End Date Sami Liriano DO [address] [place] [phone] PCP - General FAMILY PRACTICE 12/24/19 documented as of this encounter
--- OUTSIDE RECORDS SUMMARY | 2024-09-19 12:21 | XMS_ITS | Encounter Summary ---
Author Organization [facility] Address [address] [place] [address]. 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 Gender Identity Female 12/18/2021 6:31 AM [...] st Contact Info) Description 10/09/2024 9:30 AM SPECIAL EDUCATION TEACHER Office Visit [facility] [phone] Carlos Farris MD Three [facility] [address] [place] [address] 11/02/2024 10:20 AM SPECIAL EDUCATION TEACHER Office Visit [facility] Family & Internal Medicine - [address] [phone] Sami Liriano DO [address] [place] [address] documented as of this encounter Results * (ABNORMAL) PRO-BRAIN NATRIURETIC PEPTIDE (07/17/2021 8:31 AM CDT) PRO-B TYPE NATRIURETIC PEPTIDE 266(H) <125 PG/ML 07/17/2021 9:04 AM CDT [facility] Comment: CUT POINTS ESTABLISHED BY INTERNATIONAL [...] OF 89% AND 72% FOR ACUTE CHF. 07/17/2021 8:31 AM CDT us Erik Bowling MD LABORATORY Final Result [facility] [address] [place] [address], documented in this encounter Visit Diagnoses Diagnosis Sleep disturbances- Primary Sleep disturbance, unspecified Edema Shortness of breath HTN (hypertension) Unspecified essential hypertension documented in this encounter Additional Health Concerns Assessment Noted Time PHQ-9 Depression Total Score: 5 06/22/20 21 10:07 AM CDT documented as of this encounter Care Teams Military Lawyer Relationship Specialty Start Date End Date Sami Liriano DO [address] [place] [phone] PCP - General FAMILY PRACTICE 12/24/19 documented as of this encounter
--- OUTSIDE RECORDS SUMMARY | 2024-09-19 12:21 | XMS_ITS | Encounter Summary ---
Author Organization [facility] Address [facility] 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 No / Unsure 09/04/2021 10:27 AM DIRECTOR CLINICAL APPLICATIONS documented as of this encounter Plan of Treatment Upcoming Encounters Date Type Department Care Team (Late st Contact Info) Description 10/09/2024 9:30 AM DIRECTOR CLINICAL APPLICATIONS Office Visit [facility] [phone] Carlos Farris MD Three [facility] [address] [place] [address] 11/02/2024 10:20 AM DIRECTOR CLINICAL APPLICATIONS Office Visit [facility] Medical Group Family & Internal Medicine - [address] [phone] Sami Liriano DO [address] [place] [address] documented as of this encounter Visit Diagnoses Not on filedocumented in this encounter Additional Health Concerns Assessment Noted Time PHQ-9 Depression Total Score: 5 06/22/20 21 10:07 AM CDT documented as of this encounter Care Teams Environmental Resource Specialist Relationship Specialty Start Date End Date Sami Liriano DO [address] [place] [address] PCP - General FAMILY PRACTICE 12/24/19 documented as of this encounter
--- OUTSIDE RECORDS SUMMARY | 2024-09-19 12:21 | XMS_ITS | Encounter Summary ---
Author Organization [facility] Address [facility]6 [facility]. 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 No / Unsure 08/04/2021 9:58 AM CDT documented as of this encounter Plan of Treatment Upcoming Encounters Date Type Department Care Team (Late st Contact Info) Description 10/09/2024 9:30 AM GLASS DEPOSITION TENDER [facility] [phone] Carlos Farris MD Three [facility] [address] [place] [address] 11/02/2024 10:20 AM GLASS DEPOSITION TENDER Office Visit [facility] Medical [facility] Family & Internal Medicine - [address] [phone] Sami Liriano DO [address] [place] [address] documented as of this encounter Visit Diagnoses Not on filedocumented in this encounter Additional Health Concerns Assessment Noted Time PHQ-9 Depression Total Score: 5 06/22/20 21 10:07 AM CDT documented as of this encounter Care Teams Manager Of Product Relationship Specialty Start Date End Date Sami Liriano DO [address] [place] [phone] PCP - General FAMILY PRACTICE 12/24/19 documented as of this encounter
--- OUTSIDE RECORDS SUMMARY | 2024-09-19 12:21 | XMS_ITS | Encounter Summary ---
Author Organization [facility] Address [address] [place] [address]. [place], [place] [id number] [place] [address] Care Team Providers Care Director Of Sleep Name Role Phone Sami Gimenez DO Primary Care Provider + Reason for Visit * Reason Onset Date Comments Results 09/15/2021 Encounter Details Date Type Department Care Team (Late st Contact Info) Description 09/15/2021 Telephone [facility] Family & Internal Medicine [id number] [place] [address] Sami Gimenez DO [facility] [place] [address] Results Social History Tobacco Use [...] on file Legal Sex Female 12:43 PM CHILDBIRTH 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 No / Unsure 09/04/2021 10:27 AM CHILDBIRTH EDUCATOR documented as of this encounter Progress Notes * Radha Oglesby MA - 09/15/2021 3:30 PM CST Refill request received from Pharmacy Last visit with SAMI GIMENEZ in FAMILY PRACTICE was on: 08/07/2021 in [facility] Future Appointments Date Time Provider Department Center 09/19/2021 9:40 AM Sami Gimenez DO MGFMMRVL [facility] 12/05/2021 10:20 AM Sami Pinto MD MGPULSOF [facility] 02/16/2022 10:00 AM Erik Bowling MD MARYPCCL [facility] 02/16/2022 1:20 PM Sami Pinto MD MGPULSEV [id number] [id number] - [address] [address] Current Outpatient Medications: ??? acetaminophen 325 MG tablet, Take 325 mg by mouth. Take 2 in the am and 2 tabs in the pm and 1 PRN, Disp: , Rfl: ??? atorvastatin 10 MG tablet, Take 1 tablet (10 mg total) by mouth nightly at bedtime., Disp: 90 tablet, Rfl: 1 ??? Blood Glucose Monitoring Suppl (ONE TOUCH ULTRA 2) w/Device Kit, Check blood sugar once daily in AM when fasting, Disp: 1 kit, Rfl: 0 ??? CHLORTHALIDONE 25 MG tablet, TAKE 1 TABLET BY MOUTH EVERY DAY, Disp: 90 tablet, Rfl: 1 ??? ESCITALOPRAM 20 MG tablet, TAKE 1 TABLET BY MOUTH EVERY DAY, Disp: 90 tablet, Rfl: 1 ??? furosemide 20 MG tablet, Take 3 tablets (60 mg total) by mouth daily. (Patient taking differently: Take 20 mg by mouth daily. ), Disp: 180 tablet, Rfl: 3 ??? Glucose Blood test strip, Check blood sugar once daily in AM when fasting, Disp: 100 strip, Rfl: 11 ??? Lancets (ONETOUCH ULTRASOFT) lancets, Check blood sugar once daily in AM when fasting, Disp: 1 each, Rfl: 11 ??? lisinopril 40 MG tablet, Take 1 tablet (40 mg total) by mouth daily., Disp: 90 tablet, Rfl: 1 ??? metFORMIN ER 500 MG 24 hr tablet, Take 1 tablet (500 mg total) by mouth daily with breakfast., Disp: 180 tablet, Rfl: 1 ??? omeprazole 40 MG capsule, Take 1 capsule (40 mg total) by mouth daily., Disp: 90 capsule, Rfl: 1 ??? oxybutynin XL 5 MG 24 hr tablet, Take 1 tablet (5 mg total) by mouth daily., Disp: 90 tablet, Rfl: 1 ??? potassium chloride CR 10 MEQ Tab CR tablet, TAKE 2 TABLETS BY MOUTH DAILY FOR 2 WEEKS, THEN RESUME ONE TABLET DAILY, Disp: 90 tablet, Rfl: 1 ??? traMADol 50 MG tablet, Take 1 tablet (50 mg total) by mouth every 6 (six) hours as needed for Pain. Indications: Chronic Pain, Disp: 60 tablet, Rfl: 0 DBIRTH EDUCATOR documented in this encounter Plan of Treatment Upcoming Encounters Date Type Department Care Team (Late st Contact Info) Description 10/09/2024 9:30 AM CHILDBIRTH EDUCATOR Office Visit [facility] [phone] Carlos Farris MD [facility] [address] [place] [address] 11/02/2024 10:20 AM CHILDBIRTH EDUCATOR Office Visit [facility] Medical Group Family & Internal Medicine - [address] [phone] Sami Gimenez, [address] [place] [address] documented as of this encounter Visit Diagnoses Diagnosis Hyperlipidemia Other and unspecified hyperlipidemia Essential hypertension Unspecified essential hypertension Gastroesophageal reflux disease without esophagitis Esophageal reflux Overactive bladder Hypertonicity of bladder Arthritis of left knee Unspecified arthropathy, lower leg documented in this encounter Additional Health Concerns Assessment Noted Time PHQ-9 Depression Total Score: 5 06/22/20 21 10:07 AM CDT documented as of this encounter Care Teams Director Of Sleep Relationship Specialty Start Date End Date Sami Gimenez DO [address] [place] [address] PCP - General FAMILY PRACTICE 12/24/19 documented as of this encounter
--- OUTSIDE RECORDS SUMMARY | 2024-09-19 12:21 | XMS_ITS | Encounter Summary ---
Author Organization [facility] Address [address] [place] [address]. 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 Yes 10/19/2021 1:15 PM MECHANICAL PROCESS ENGINEER documented as of this encounter Plan of Treatment Upcoming Encounters Date Type Department Care Team (Late st Contact Info) Description 10/09/2024 9:30 AM MECHANICAL PROCESS ENGINEER Office Visit [facility] [address] Carlos Farris MD [facility] [address] [place] [address] 11/02/2024 10:20 AM MECHANICAL PROCESS ENGINEER Office Visit [facility] Medical Group Family & Internal Medicine - [address] [phone] Sami Liriano DO [address] [place] [address] documented as of this encounter Visit Diagnoses Not on filedocumented in this encounter Additional Health Concerns Infection Onset Date Last Indicated Resolved Time COVID-19 Rule Out 10/06/2021 10/11/2021 10/11/2021 8:45 AM MECHANICAL PROCESS ENGINEER COVID-19 Rule Out 10/11/2021 10/11/2021 10/12/2021 1:13 AM MECHANICAL PROCESS ENGINEER COVID-19 Confirmed 10/11/2021 10/11/2021 12:35 AM MECHANICAL PROCESS ENGINEER Assessment Noted Time PHQ-9 Depression Total Score: 5 06/22/20 21 10:07 AM CDT documented as of this encounter Care Teams Retail Seasonal Specialist Relationship Specialty Start Date End Date Sami Liriano DO [address] [place] [address] PCP - General FAMILY PRACTICE 12/24/19 documented as of this encounter
--- OUTSIDE RECORDS SUMMARY | 2024-09-19 12:21 | XMS_ITS | Encounter Summary ---
Author Organization [facility] Address [address] [place] [address]. [place], [place] [id number] [place] [address] Care Team Providers Care Gas Meter Prover Name Role Phone Sami Liriano DO Primary Care Provider + Reason for Visit * Reason Onset Date Comments Refill Request 08/16/2021 Encounter Details Date Type Department Care Team (Late st Contact Info) Description 08/16/2021 Telephone [facility] Medical Group Family & Internal Medicine [facility] [address] [place] [address] Sami Liriano DO [facility] [place], [place] [id number] Refill Request Social History Tobacco Use Types [...] file 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 No / Unsure 08/07/2021 9:32 AM AREA SALES MANAGER documented as of this encounter Progress Notes * Radha Oglesby MA - 08/16/2021 3:24 PM CST A user error has taken place: SALES MANAGER documented in this encounter Plan of Treatment Upcoming Encounters Date Type Department Care Team (Late st Contact Info) Description 10/09/2024 9:30 AM AREA SALES MANAGER Office Visit [facility] [phone] Carlos Farris MD [facility] [address] [place] [address] 11/02/2024 10:20 AM AREA SALES MANAGER Office Visit [facility] Medical Group Family & Internal Medicine - [address] [phone] Sami Liriano DO [address] [place] [address] documented as of this encounter Visit Diagnoses Not on filedocumented in this encounter Additional Health Concerns Assessment Noted Time PHQ-9 Depression Total Score: 5 06/22/20 21 10:07 AM CDT documented as of this encounter Care Teams Gas Meter Prover Relationship Specialty Start Date End Date Sami Liriano DO [address] [place] [address] PCP - General FAMILY PRACTICE 12/24/19 documented as of this encounter
--- OUTSIDE RECORDS SUMMARY | 2024-09-19 12:21 | XMS_ITS | Encounter Summary ---
Author Organization [facility] Address [facility]. [place], [place] [id number] [place] [id number] Care Team Providers Care Densitometer Reader Name Role Phone Sami Liriano DO Primary Care Provider + Reason for Referral * Consultation (Routine) - Closed Specialty Diagnoses / Procedures Referred By Contact Referred To Contact NUTRITION / ENDOCRINOLOGY Diagnoses Type 2 diabetes mellitus without complication, without long-term current use of insulin ([facility]) Sami Liriano DO [address] [place] [address] Phone: tel:[phone] fax:[phone] [facility] Diabetes [facility] Endocrinology - [address] [address] Phone: tel: fax: Referral ID Status Reason Start Date Expiration Date Visits Re quested Visits Authorized [id number] Closed 08/07/2021 09/07/2022 99 99 INED RAILWAY OPERATOR Reason for Visit * Reason Comments Results pt. here to follow mo p on test results Encounter Details Date Type Department Care Team (Late st Contact Info) Description 08/07/2021 9:20 AM INCLINED RAILWAY OPERATOR Office Visit [facility] Family [facility] Internal [facility] [place] [id number] [place] [id number] HeriSami, DO [address] [place] [address] Results (pt. 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 No / Unsure 08/07/2021 9:32 AM INCLINED RAILWAY OPERATOR documented as of this encounter Last Filed Vital Signs Vital Sign Reading Time Taken Comments Blood Pressure 134/58 08/07/2021 9:35 AM INCLINED RAILWAY OPERATOR Pulse 72 08/07/2021 9:35 AM INCLINED RAILWAY OPERATOR Temperature 36.6 ??C (97.9 ??F) 08/07/2021 9:35 AM CS T Respiratory Rate 16 08/07/2021 9:35 AM INCLINED RAILWAY OPERATOR Oxygen Saturation 96% 08/07/2021 9:35 AM INCLINED RAILWAY OPERATOR Inhaled Oxygen Concentration - - Weight 112.5 kg (248 lb) 08/07/2021 9:35 AM INCLINED RAILWAY OPERATOR Height 153.7 cm (5' 0.5 ) 08/07/2021 9:35 AM INCLINED RAILWAY OPERATOR Body Mass Index 47.64 08/07/2021 9:35 AM INCLINED RAILWAY OPERATOR documented in this encounter Patient Instructions * Patient Instructions* Sami Liriano, - 08/07/2021 9:20 AM INCLINED RAILWAY OPERATOR Images from the original note were not included. Patient Education Patient Education Diabetic Meal Planning About this topic Healthy eating is an important part of keeping your diabetes in control. A balanced diet along withyour diabetic drugs will help you control your blood sugar. The right portions of healthy foods mayhelp keep your sugar within your goal range. It may also help to lower or maintain your weight, manage cholesterol, the amount of fat in your blood, and blood pressure. What will the results be? Healthy eating may help you lower your blood sugar and keep it in a safe range. Keeping your blood sugar in a safe range may lower your chances for cable rigger problems from your diabetes. You may be less likely to have damage to your kidneys, heart, eyes, or nerves. What changes to diet are needed? Healthy eating means: ?? Eating a range of foods from all food groups. ?? Eating the right size portions. Read the nutrition facts on each food you eat. ?? Eating meals and snacks at the same time each day. Do not skip a meal or snack. Skipping meals may cause your blood sugar to go too low, especially if you are on drugs for your diabetes. Skipping meals can also cause you to eat too much at the next meal. Talk to your staff educator about making a personal meal plan for you. They can also help you eat the foods you like by modifying them to be healthier. Who should use this diet? This diet is helpful to people with high blood sugar or diabetes. What foods are good to eat? It is important to make a healthy meal. Eat a variety of different foods in the right portion. ?? Fill half of your plate with non-starchy vegetables. Non-starchy vegetables include: Broccoli, green beans, carrots, greens (mir, kale, mustard, turnip), onions, tomatoes, asparagus, beets, cauliflower, celery, and cucumber. Non-starchy vegetables are high in fiber and low in carbohydrates. These will help keep you full for longer without raising your blood sugar. ?? Fill 1/4 of your plate with carbohydrates. Try to choose whole grain options. Whole-grain products have more fiber which will make you feel full. Carbohydrates include: Bread, rice, pasta, and starchy vegetables. Starchy vegetables include beans, potatoes, acorn squash, butternut squash, corn, and peas. ?? Fill 1/4 of your plate with protein. Choose low-fat cuts of meat like boneless, skinless chickenbreast; pork loin; 90% lean beef; lean and skinless turkey meat; and fresh fish (not fried) such astuna, salmon, or mackerel. ?? Add a low-fat or non-fat dairy product like 8 ounces (240 mL) of 1% or skim milk or 6 ounces (180 mL) of low-fat yogurt. Eat the recommended serving. Milk and yogurt have carbohydrates which raiseyour blood sugar. ?? Add a small piece of fruit or 1/2 cup (120 grams) of frozen or canned fruit. Choose canned fruits in juice or water. Fruits include apples, bananas, peaches, pears, pineapple, plums, and oranges. Eat the recommended serving. Fruit has carbohydrates which can raise your blood sugar. ?? Include healthy fats in your meal like olive oil, canola oil, avocado, and nuts. Other good foods to include in your diet are: ?? Foods high in fiber. Adding fiber to your meals may help control your blood sugar and cholesterol levels. It may also help with weight loss and prevent belly problems. If you are younger than 50, it is recommended to get 25 to 38 grams per day. If you are older than 50, it is recommended to get 21 to 30 grams per day. Good sources of fiber include: ? Nuts and seeds ? Beans, peas, and other legumes ? Whole-grain products ? Fruits ? Vegetables ?? Smart snacks in the right portion. Do not go too long in between meals. Ask your dietitian when you should have a snack in between your meals. Snack on things like: ? Nuts ? Vegetables and low-fat dressing ? Light popcorn ? Low-fat cheese and crackers ? 1/2 sandwich What foods should be limited or avoided? You may need to limit the amount of some foods you eat and how often you eat them. Foods that should be limited include: ?? High fat or processed foods like: ? Quintana ? Sausage ? Hot dogs ? Whole-fat dairy products ? Potato chips ?? Foods high in sodium like: ? Canned soups ? Soy sauce and some salad dressings ? Cured meats ? Salted snack foods like pretzels ? Olives ?? Fats and oils like: ? Margarine ? Salad dressing ? Gravy ? Lard or shortening ?? Foods high in sugar like: ? Candy ? Cookies ? Cake ? Ice cream ? Table sugar ? Soda ? Juice drinks ?? Starches that are not whole grain like: ? White rice ? [place]serratian fries ? White pasta ? White bread ? Sugary cereals ? Baked goods, pastries, croissants ?? Beer, wine, and mixed drinks (alcohol). Drink alcohol in moderation (1 drink per day or less foradult women and 2 drinks per day or less for adult men). Drinking alcohol can cause fluctuations inyour blood sugar and interfere with how your diabetic drugs work. Talk to your doctor about how youcan safely include alcohol into your diet. What can be done to prevent this health problem? Some people have a higher chance of developing diabetes than others. This is a life-long problem. You can still lead a normal life. Diabetes can be managed through diet, exercise, and drugs. It is important to have support from your family and friends to help you with your goals. When do I need to call the doctor? ?? Blood sugar level is above 240 mg/dL for more than a day ?? Blood sugar level drops to less than 40 and does not respond to 15 grams of simple carbohydrate,like 4 glucose tablets or 1/2 cup (120 mL) of fruit juice ?? Trouble breathing ?? Very sleepy and trouble concentrating ?? Feeling very thirsty ?? Needing to urinate (pee) more than normal ?? Throw up more than once or have many loose stools ?? You are so sick you cannot eat or drink ?? Fever over 101??F (38??C) ?? Questions about your diet plan ?? You are not feeling better in 2 to 3 days or you are feeling worse Helpful tips ?? Plan ahead. Plan your meals and grocery list before going to the store. This will help you to choose foods that are good for you. ?? Pack a lunch. Take healthy meals and snacks with you to work. ?? Keep a food journal to help keep you on track. Take note of foods that keep your blood sugar in goal range. Also note foods and meals that raise or lower your blood sugar. There are apps for your phone that can help with this. ?? Visit a restaurant's website before eating out. You can see the menu options and nutritional facts. This way, you can see which items best fit into your diet plan. Call ahead if you have questions. Last Reviewed Date 2020-12-15 Consumer Information Use and Disclaimer This information is not specific medical advice and does not replace information you receive from your health care provider. This is only a brief summary of general information. It does NOT include all information about conditions, illnesses, injuries, tests, procedures, treatments, therapies, discharge instructions or life-style choices that may apply to you. You must talk with your health care provider for complete information about your health and treatment options. This information should not be used to decide whether or not to accept your health care provider???s advice, instructions or recommendations. Only your health care provider has the knowledge and training to provide advice that is right for you. Copyright Copyright ?? 2020 [employer]. and its affiliates and/or licensors. All rights reserved. Patient Education Patient Education Diabetes and Diet The Basics Written by the doctors and editors at [employer] Why is diet important in diabetes???--??Diet is important because it is part of diabetes treatment.Many people need to change what they eat and how much they eat to help treat their diabetes. It is important for people to treat their diabetes so that they: ?? Keep their blood sugar at or near a normal level ?? Prevent long-term problems, such as heart or kidney problems, that can happen in people with diabetes Changing your diet can also help treat obesity, high blood pressure, and high cholesterol. These conditions can affect people with diabetes and can lead to future problems, such as heart attacks or strokes. Who will work with me to change my diet???--??Your doctor or nurse will work with you to make a food plan to change your diet. They might also recommend that you work with a dietitian. A dietitian is an expert on food and eating. Do I need to eat at the same times every day???--??When and how often you should eat depends, in part, on the diabetes medicines you take. For example: ?? People who take about the same amount of insulin at the same time each day (called a fixed regimen ) should eat meals at the same times. This is also true for people who take pills that increase insulin levels, such as sulfonylureas. Eating meals at the same time every day helps prevent low blood sugar. ?? People who adjust the dose and timing of their insulin each day (called a flexible regimen ) donot always have to eat meals at the same time. That's because they can time their insulin dose for before they plan to eat, and also adjust the dose for how much they plan to eat. ?? People who take medicines that don't usually cause low blood sugar, such as metformin, don't have to eat meals at the same time every day. What do I need to think about when planning what to eat???--??Our bodies break down the food we eatinto small pieces called carbohydrates, proteins, and fats. When planning what to eat, people with diabetes need to think about: ?? Carbohydrates (or carbs ) - Carbohydrates, which are sugars that our bodies use for energy, canraise a person's blood sugar level. Your doctor, nurse, or dietitian will tell you how many carbohydrates you should eat at each meal or snack. Foods that have carbohydrates include: ? Bread, pasta, and rice ? Vegetables and fruits ? Dairy foods ? Foods and drinks with added sugar It is best to get your carbohydrates from fruits, vegetables, whole grains, and low-fat milk. It isbest to avoid drinks with added sugar, like soda, juices, and sports drinks. ?? Protein - Your doctor, nurse, or dietitian will tell you how much protein you should eat each day. It is best to eat lean meats, fish, eggs, beans, peas, soy products, nuts, and seeds. ?? Fats - The type of fat you eat is more important than the amount of fat. Saturated and trans fats can increase your risk for heart problems, like a heart attack. ? Foods that have saturated fats include meat, butter, cheese, and ice cream. ? Foods that have trans fats include processed food with partially hydrogenated oils on the ingredient list. This may include fried foods, store bought cookies, muffins, pies, and cakes. Monounsaturated and polyunsaturated fats are better for you. Foods with these types of fat include fish, avocado, olive oil, and nuts. ?? Calories - People need to eat a certain amount of calories each day to keep their weight the same. People who are overweight and want to lose weight need to eat fewer calories each day. ?? Fiber - Eating foods with a lot of fiber can help control a person's blood sugar level. Foods that have a lot of fiber include apples, green beans, peas, beans, lentils, nuts, oatmeal, and whole grains. ?? Salt - People who have high blood pressure should not eat foods that contain a lot of salt (alsocalled sodium). People with high blood pressure should also eat healthy foods, such as fruits, vegetables, and low-fat dairy foods. ?? Alcohol - Having more than 1 drink (for women) or 2 drinks (for men) a day can raise blood sugarlevels. Also, drinks that have fruit juice or soda in them can raise blood sugar levels. What can I do if I need to lose weight???--??If you need to lose weight, you can: ?? Exercise - Try to get at least 30 minutes of physical activity a day, most days of the week. Even gentle exercise, like walking, is good for your health. Some people with diabetes need to change their medicine dose before they exercise. They might also need to check their blood sugar levels before and after exercising. ?? Eat fewer calories - Your doctor, nurse, or dietitian can tell you how many calories you should eat each day in order to lose weight. If you are worried about your weight, size, or shape, talk with your doctor, nurse, or dietitian. They can help you make changes to improve your health. Can I eat the same foods as my family???--??Yes. You do not need to eat special foods if you have diabetes. You and your family can eat the same foods. Changing your diet is mostly about eating healthy foods and not eating too much. What are the other parts of diabetes treatment???--??Besides changing your diet, the other parts ofdiabetes treatment are: ?? Exercise ?? Medicines Some people with diabetes need to learn how to match their diet and exercise with their medicine dose. For example, people who use insulin might need to choose the dose of insulin they give themselves. To choose their dose, they need to think about: ?? What they plan to eat at the next meal ?? How much exercise they plan to do ?? What their blood sugar level is If the diet and exercise do not match the medicine dose, a person's blood sugar level can get too low or too high. Blood sugar levels that are too low or too high can cause problems. All topics are updated as new evidence becomes available and our peer review process is complete. This topic retrieved from [employer] on: May 18, 2021. Topic 02607 Version 7.0 Release: 29.4.2 - C29.229 ?2020??[employer] and/or its affiliates.??All rights reserved. Consumer Information Use and Disclaimer This information is not specific medical advice and does not replace information you receive from your health care provider. This is only a brief summary of general information. It does NOT include all information about conditions, illnesses, injuries, tests, procedures, treatments, therapies, discharge instructions or life-style choices that may apply to you. You must talk with your health care provider for complete information about your health and treatment options. This information should not be used to decide whether or not to accept your health care provider's advice, instructions or recommendations. Only your health care provider has the knowledge and training to provide advice that is right for you. The use of this information is governed by the [employer] End User License Agreement, available at https://www.[employer]ovit.[employer]/en/solutions/[employer]/about/arpita.The use of [employer] content is governed by the [employer] Terms of Use. ??2020 [employer]. All rights reserved. Copyright ?2020??[employer] and/or its affiliates.??All rights reserved. Patient Education Patient Education Type 2 Diabetes Discharge Instructions About this topic Type 2 diabetes is the most common type of diabetes. If you have this illness, your body does not make enough insulin or does not correctly use the insulin it does make. When you eat, your body breaks down all sugars and starches into glucose. Your body needs insulin to use glucose for energy. The insulin takes the glucose from your blood into your cells. If you do not have enough insulin, or your body does not use the insulin well, the glucose or sugar stays in your blood instead of going intoyour cells. This causes your blood sugar levels to be too high. Over time, this can damage your heart, nerves, eyes, kidneys, and other organs. What care is needed at home? Learn how to take care of your diabetes. ?? Ask your doctor what you need to do when you go home. Make sure you ask questions if you do not understand what the doctor says. This way you will know what you need to do. ?? Based on what diabetes drugs you take, you might need to check your blood sugar regularly at home. But not everyone with type 2 diabetes needs to do this. If you need to, your doctor will teach you how to check your blood sugar. Ask what the goal numbers are for your blood sugar. Keep a list of your blood sugar levels. This will help you learn what causes high or low readings and help you manage your diabetes. ?? Take your diabetes drugs as directed. Ask what to do if you miss a dose of your diabetes drugs. ?? Learn when, what, and how much to eat. ?? Be active. Walk, garden, or do something active for 30 minutes or more on most days of the week.This will also help you control your weight. Ask your doctor for proper food and exercise programs to follow. ?? Check your feet often. Look for blisters or sores. Always wear socks and shoes. Never walk barefoot, especially outdoors. Take special care around the pool and at the beach, as these surfaces may be extremely hot and burn your feet. Report any problems with your feet to your doctor. ?? Wear a medical ID. ?? Limit or avoid beer, wine, and mixed drinks (alcohol). ?? If you smoke, try to quit. Your doctor or nurse can help. ?? Talk with your doctor about if you need to check your blood sugar at home. ?? If you are overweight, ask your doctor if you would be a good candidate for bariatric surgery asthis can reverse diabetes in some cases. What follow-up care is needed? ?? Your doctor may ask you to make visits to the office to check on your progress. Be sure to keep these visits. What drugs may be needed? Diabetes drugs will help control your blood sugar. You may have more than one diabetes drug. Your doctor may order drugs for you to take by mouth or insulin as a shot. You will be trained on how to give insulin shots, if needed. Talk to your doctor about your diabetes drugs and what you need to do when you go home. Will physical activity be limited? ?? Being active can lower blood sugar and blood pressure. It can also help control weight. Be sure to check with your doctor before starting any exercise program. ?? Try to walk, bike, or swim every day. Start with 5 to 10 minutes each day. Work up to about 30 minutes most days. ?? Drink lots of water during workouts. What changes to diet are needed? Eating a healthy diet is important. This means you need to eat regularly throughout the day. You need to include a variety of foods such as fruits and vegetables, whole grains, nonfat dairy products,and lean meats. Do not eat too much food at one time and do not skip meals. Limit foods high in sugar like sweets, desserts, and fruit juices. Ask your doctor about what kind of diet is right for you. What problems could happen? ?? Heart, kidney, and nerve problems ?? Foot problems. Sores and infection may also happen. ?? Eye problems ?? Dangerously high blood sugar levels requiring emergency treatment ?? Severe infections Talk with your doctor often. Other drugs or care may be needed to treat or prevent these problems. When do I need to call the doctor? ?? You have signs of high blood sugar like you: ? Are more thirsty ? Are urinating more often ? Have new shortness of breath ? Have belly pain, an upset stomach, or are throwing up. ? Are more tired than normal ? Have a very dry mouth or a fruity breath odor ?? Signs of infection. These include a fever of 100.4??F (38??C) or higher, chills, or a wound thatwill not heal. ?? Blurred vision ?? Chest pain ?? Swelling in your legs ?? Change in color and odor of your feet ?? Blood sugar that remains high and does not respond to treatment Helpful tips Talk to your doctor about getting a flu shot and pneumonia shot. Teach Back: Helping You Understand The Teach Back Method helps you understand the information we are giving you. After you talk with the staff, tell them in your own words what you learned. This helps to make sure the staff has described each thing clearly. It also helps to explain things that may have been confusing. Before going home, make sure you can do these: ?? I can tell you about my condition. ?? I can tell you what I need to do to control my blood sugar. ?? I can tell you what I will do if I have signs of high blood sugar. Where can I learn more? Center for Disease Control and Prevention https://www.cdc.gov/diabetes/basics/type2.html International Diabetes Foundation https://www.idf.org/aboutdiabetes/hgdq-1-kdsfcguu.html [employer] https://www.[employer].Securens/contents/weru-4-jgefoczp-nryldztb-urhfep-dzp-basics Last Reviewed Date 2021-01-31 Consumer Information Use and Disclaimer This information is not specific medical advice and does not replace information you receive from your health care provider. This is only a brief summary of general information. It does NOT include all information about conditions, illnesses, injuries, tests, procedures, treatments, therapies, discharge instructions or life-style choices that may apply to you. You must talk with your health care provider for complete information about your health and treatment options. This information should not be used to decide whether or not to accept your health care provider???s advice, instructions or recommendations. Only your health care provider has the knowledge and training to provide advice that is right for you. Copyright Copyright ?? 2020 [employer]. and its affiliates and/or licensors. All rights reserved. INED RAILWAY OPERATOR documented in this encounter Progress Notes * Iwona Cohn MA - 08/07/2021 9:20 AM CSTAddended by: IWONA COHN on: 08/07/2021 10:28 AM Modules accepted: Orders INED RAILWAY OPERATOR * Sami Liriano DO - 08/07/2021 9:20 AM CST Images from the original note were not included. GENERAL OFFICE VISIT Encounter Date: 08/07/21 Chief Complaint: 66-year-old female presents for Results (pt. here to follow up on test results) HPI: Pt had recent labs. Hospital Outpatient Visit on 07/17/2021 Component Date Value Ref Range Status ? ? Pro-B TYPE NATRIURETIC PEPTIDE 07/17/2021 266* <125 PG/ML Final Comment: CUT POINTS ESTABLISHED BY INTERNATIONAL COLLABORATIVE [...] OF 89% AND 72% FOR ACUTE CHF. Laboratory Only on 07/14/2021 Component Date Value Ref Range Status ??? HGB A1C 07/14/2021 7.1* 3.80 - 5.60 % Final ??? ESTIMATED AVERAGE GLUCOSE 07/14/2021 157* 74 - 106 MG/DL Final ??? SODIUM 07/14/2021 141 136 - 145 MMOL/L Final ??? POTASSIUM 07/14/2021 3.4* 3.5 - 5.1 MMOL/L Final ??? CHLORIDE S/P/B 07/14/2021 104 98 - 107 MMOL/L Final ??? CO2 07/14/2021 27.2 21 - 32 MMOL/L Final ??? GLUCOSE 07/14/2021 124* 70 - 99 MG/DL Final ??? BUN 07/14/2021 36* 6 - 24 MG/DL Final ??? CREATININE S/P/B 07/14/2021 1.41* 0.55 - 1.02 MG/DL Final ??? CALCIUM 07/14/2021 8.8 8.4 - 10.5 MG/DL Final ??? ANION GAP 07/14/2021 9.8 5 - 15 MMOL/L Final REFERENCE RANGE NOT ESTABLISHED ??? OSMOLALITY (CALC) 07/14/2021 302 MOSM/KG Final REFERENCE RANGE NOT ESTABLISHED ? ? eGFR Non-Afr. Amer. 07/14/2021 38* >90 ML/MIN/1.73 M2 Final ? ? eGFR Afr. Amer. 07/14/2021 44* >90 ML/MIN/1.73 M2 Final ??? GFR NOTES 07/14/2021 Final Value:THE ESTIMATED GFR IS CALCULATED USING THE 2009 CKD-EPI EQUATION. THE FOLLOWING CATEGORIES FOR GRADING RENAL FUNCTION ARE RECOMMENDED BY THE INTERNATIONAL SOCIETY OF NEPHROLOGY (KDIGO 2012 CLINICAL PRACTICE GUIDELINE). Comment: G1,NORMAL OR HIGH: >89 ml/min/1.73 m2 G2,MILDLY DECREASED: 60-89 ml/min/1.73 m2 G3A,MILDLY TO MODERATELY DECREASED: 45-59 ml/min/1.73 m2 G3B,MODERATELY TO SEVERELY DECREASED: 30-44 ml/min/1.73 m2 G4,SEVERELY DECREASED: 15-29 ml/min/1.73 m2 G5,KIDNEY FAILURE: <15 ml/min/1.73 m2 ??? COLOR (U) 07/14/2021 YELLOW Final ??? TRANSPARENCY 07/14/2021 CLEAR CLEAR Final ??? Specific [place] (U) 07/14/2021 1.015 1.003 - 1.040 Final ??? U PH 07/14/2021 6.0 5.0 - 9.0 Final ??? PROTEIN (U) 07/14/2021 NEGATIVE NEGATIVE Final ??? URINE GLUCOSE 07/14/2021 NEGATIVE NEGATIVE Final ??? U KETONES 07/14/2021 NEGATIVE NEGATIVE Final ??? BILIRUBIN (U) 07/14/2021 NEGATIVE NEGATIVE Final ??? BLOOD 07/14/2021 NEGATIVE NEGATIVE Final ??? UROBILINOGEN 07/14/2021 0.2 0.0 - 2.0 EU/DL Final ??? NITRITES 07/14/2021 NEGATIVE NEGATIVE Final ??? LEUKOCYTE ESTERASE 07/14/2021 NEGATIVE NEGATIVE Final ??? REFLEX URINE CULTURE: 07/14/2021 CULTURE IS NOT INDICATED Final ??? RBC/HPF 07/14/2021 0-3 0 - 3 /HPF Final ??? WBC/HPF 07/14/2021 0-3 0 - 3 /HPF Final ??? EPI/HPF 07/14/2021 0-3 /HPF Final ??? BACTERIA (URINE) 07/14/2021 NONE SEEN NONE SEEN Final Pt's A1c is now consistent with diabetes. Pt's potassium was mildly low. Her kidney function is mildly decreased. Pt has had increases of furosemide which may be affecting these levels. She has neverbeen diagnosed with diabetes before. Review of Systems Constitutional: Negative for fever. Gastrointestinal: Negative for abdominal pain. Patient Active Problem List Diagnosis ??? Alopecia [...] 3 performed by Joel Keenan MD at [facility] OR ??? EGD ??? HERNIA REPAIR [...] file Occupational History ??? 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 Smoking status: Former Smoker Packs/day: 1.00 Years: 12.00 Pack years: 12.00 Types: Cigarettes Quit date: 1976 Years since quittin.8 ??? Smokeless tobacco: Never Used Vaping Use [...] Administered Date(s) Administered ??? Dtap 06/30/2011 ??? Pneumococcal (Prevnar 13) 09/05/2020 Current Outpatient Medications Medication Sig Dispense Refill ??? acetaminophen 325 MG tablet Take 325 mg by mouth. Take 2 in the am and 2 tabs in the pm and 1 PRN ??? ATORVASTATIN 10 MG tablet TAKE 1 TABLET BY MOUTH EVERYDAY AT BEDTIME 90 tablet 1 ??? Blood Glucose Monitoring Suppl (ONE TOUCH ULTRA 2) w/Device Kit Check blood sugar once daily Kassi when fasting 1 kit 0 ??? CHLORTHALIDONE 25 MG tablet TAKE 1 TABLET BY MOUTH EVERY DAY 90 tablet 1 ??? escitalopram 20 MG tablet Take 20 mg by mouth daily. ??? furosemide 20 MG tablet Take 3 tablets (60 mg total) by mouth daily. (Patient taking differently: Take 20 mg by mouth daily. ) 180 tablet 3 ??? Glucose Blood test strip Check blood sugar once daily in AM when fasting 100 strip 11 ??? Lancets (SafeNetTOUCH ULTRASOFT) lancets Check blood sugar once daily in AM when fasting 1 each 11 ??? LISINOPRIL 40 MG tablet TAKE 1 TABLET BY MOUTH EVERY DAY 90 tablet 1 ??? metFORMIN ER 500 MG 24 hr tablet Take 1 tablet (500 mg total) by mouth daily with breakfast. 30tablet 2 ??? OMEPRAZOLE 40 MG capsule TAKE 1 CAPSULE BY MOUTH EVERY DAY 90 capsule 1 ??? OXYBUTYNIN XL 5 MG 24 hr tablet TAKE 1 TABLET BY MOUTH EVERY DAY 90 tablet 1 ??? potassium chloride CR 10 MEQ Tab CR tablet TAKE 1 TABLET BY MOUTH EVERY DAY 90 tablet 1 ??? traMADol 50 MG [...] in the pm and 1 PRN ??? ATORVASTATIN 10 MG tablet TAKE 1 TABLET BY MOUTH EVERYDAY AT BEDTIME ??? CHLORTHALIDONE 25 MG tablet TAKE 1 TABLET BY MOUTH EVERY DAY ??? escitalopram 20 MG tablet Take 20 mg by mouth daily. ??? furosemide 20 MG tablet Take 3 tablets (60 mg total) by mouth daily. (Patient taking differently: Take 20 mg by mouth daily. ) ??? LISINOPRIL 40 MG tablet TAKE 1 TABLET BY MOUTH EVERY DAY ??? OMEPRAZOLE 40 MG capsule TAKE 1 CAPSULE BY MOUTH EVERY DAY ??? OXYBUTYNIN XL 5 MG 24 hr tablet TAKE 1 TABLET BY MOUTH EVERY DAY ??? potassium chloride CR 10 MEQ Tab CR tablet TAKE 1 TABLET BY MOUTH EVERY DAY ??? traMADol 50 MG tablet Take 1 tablet (50 mg total) by mouth every 6 (six) hours as needed for Pain. Indications: Chronic Pain No current facility-administered medications on file prior to visit. Allergies Allergen Reactions ??? Penicillins Rash ??? Sulfa Antibiotics Rash Objective: Filed Vitals: 08/07/21 0935 BP: 134/58 Pulse: 72 Resp: 16 Temp: 97.9 ??F (36.6 ??C) TempSrc: Temporal SpO2: 96% Weight: 112.5 kg (248 lb) Height: 5' 0.5 (1.537 m) Physical Exam [...] to person, place, and time. Psychiatric: Comments: Crying during exam Assessment & Plan: Jolly was seen today for results. Diagnoses and all orders for this visit: Type 2 diabetes mellitus without complication, without long-term current use of insulin ([facility]) - CBC W/DIFF AUTOMATED; Future - ALBUMIN URINE RANDOM; Future - Glucose Blood test strip; Check blood sugar once daily in AM when fasting - Blood Glucose Monitoring Suppl (ONE TOUCH ULTRA 2) w/Device Kit; Check blood sugar once daily in AM when fasting - Lancets (ONETOUCH ULTRASOFT) lancets; Check blood sugar once daily in AM when fasting - metFORMIN ER 500 MG 24 hr tablet; Take 1 tablet (500 mg total) by mouth daily with breakfast. - Ambulatory Referral to Dietitian/Nutrition Vitamin D deficiency - VITAMIN D, 25 OH; Future Screening for lipid disorders - LIPID PANEL; Future - CK (CPK); Future Screening for endocrine, metabolic and immunity disorder - CBC W/DIFF AUTOMATED; Future - TSH W/REFLEX; Future - COMPREHENSIVE METABOLIC PANEL; Future Discussion/Summary: Discussed new diagnosis in detail. Will start on Metformin and send a diabetic supplies. Will orderscreening labs. Consider decreasing furosemide if kidney function continues to be decreased as wellas potassium. Will have patient follow-up in 1 month for reassessment. Patient verbalized understanding. I spent 32 minutes today reviewing the patient's medical record, obtaining history, performing an exam, ordering medications, tests, and/or procedures, documenting in the medical record, referring and/or communicating with other health care providers, counseling and educating the patient/family/caregiver and reviewing and communicating test results. Sami Liriano DO INED RAILWAY OPERATOR documented in this encounter Plan of Treatment Upcoming Encounters Date Type Department Care Team (Late st Contact Info) Description 10/09/2024 9:30 AM INCLINED RAILWAY OPERATOR Office Visit [facility] [phone] Carlos Farris MD [facility] [address] [place] [address] 11/02/2024 10:20 AM INCLINED RAILWAY OPERATOR Office Visit [facility] Family & Internal Medicine [address] [phone] Sami Liriano DO [address] [place] [address] Scheduled Referrals Name Type Priority Associated Diagnoses Orde r Schedule Ambulatory Referral to Dietitian/Nutrition Referral Routine Type 2 diabetes mellitus without complication, without long-term current use of insulin ([facility]/HCC) Ordered: 08/07/2021 documented as of this encounter Procedures Procedure Name Priority Date/Time Associated Diagnosis Comments TSH W/REFLEX Routine 08/07/2021 10:28 AM INCLINED RAILWAY OPERATOR Screening for endocrine, metabolic and immunity disorder ALBUMIN URINE RANDOM W/CREATININE Routine 08/07/2021 10:28 AM INCLINED RAILWAY OPERATOR Type 2 diabetes mellitus without complication, without long-term current use of insulin ([facility]) COMPREHENSIVE METABOLIC PANEL Routine 08/07/2021 10:28 AM INCLINED RAILWAY OPERATOR Screening for endocrine, metabolic and immunity disorder LIPID PANEL Routine 08/07/2021 10:28 AM INCLINED RAILWAY OPERATOR Screening for lipid disorders CBC W/DIFF AUTOMATED Routine 08/07/2021 10:28 AM INCLINED RAILWAY OPERATOR Screening for endocrine, metabolic and immunity disorder Type 2 diabetes mellitus without complication, without long-term current use of insulin ([facility]) VITAMIN D, 25 OH Routine 08/07/2021 10:2 8 AM INCLINED RAILWAY OPERATOR Vitamin D deficiency CK (CPK) Routine 08/07/2021 10:28 AM INCLINED RAILWAY OPERATOR Screening for lipid disorders documented in this encounter Results * CK (CPK) (08/07/2021 10:28 AM INCLINED RAILWAY OPERATOR) CPK 182 26 - 192 U/L 08/07/2021 5:09 PM INCLINED RAILWAY OPERATOR [facility] 08/07/2021 10:2 8 AM INCLINED RAILWAY OPERATOR Sami Liriano DO LABORATORY Final Re sult Performing Organization Address [facility]/ZIP Co de Phone Number [facility] [address] [place] [address], * ALBUMIN URINE RANDOM (08/07/2021 10:28 AM INCLINED RAILWAY OPERATOR) MICROALBUMIN (U) 6.7 <20 MG/L 08/07/20 4:29 PM INCLINED RAILWAY OPERATOR [facility] CREATININE RANDOM (U) 33.6 MG/DL 08/07/2021 4:29 PM INCLINED RAILWAY OPERATOR [facility] MICROALB/CREAT 19.9 <30 MG/G 08/07/2021 4:29 PM INCLINED RAILWAY OPERATOR [facility] URINE SPECIMEN / Unknown 08/07/2021 10:28 AM INCLINED RAILWAY OPERATOR Sami Liriano DO URINE ORDERABLES Final R esult Performing Organization Address [facility] Co de Phone Number [address] [phone], * (ABNORMAL) COMPREHENSIVE METABOLIC PANEL (08/07/2021 10:28 AM INCLINED RAILWAY OPERATOR) SODIUM S/P/B 141 136 - 145 MMOL/L 08/07/2021 5:09 PM INCLINED RAILWAY OPERATOR [facility] POTASSIUM S/P/B 3.2(L) 3.5 - 5.1 MMOL/L 08/07/2021 5:09 PM INCLINED RAILWAY OPERATOR [facility] CHLORIDE S/P/B 101 98 - 107 MMOL/L 08/07/2021 5:09 PM INCLINED RAILWAY OPERATOR [facility] CO2 28.9 21 - 32 MMOL/L 08/07/2021 5:09 PM [facility] GLUCOSE 130(H) 70 - 99 MG/DL 08/07/2021 5:09 PM [facility] BUN 34(H) 6 - 24 MG/DL 08/07/2021 5:09 PM [facility] CREATININE S/P/B 1.35(H) 0.55 - 1.02 MG/DL 08/07/2021 5:09 PM [facility] CALCIUM S/P/B 9.6 8.4 - 10.5 MG/DL 08/07/2021 5:09 PM [facility] BILIRUBIN TOTAL S/P/B 1.1(H) 0.2 - 1.0 MG/DL 08/07/2021 5:09 PM [facility] ALKALINE PHOSPHATASE S/P/B 92 55 - 142 U/L 08/07/2021 5:09 PM [facility] AST 21 15 - 37 U/L 08/07/2021 5:09 PM [facility] ALT 34 14 - 59 U/L 08/07/2021 5:09 PM [facility] TOTAL PROTEIN S/P/B 8.0 6.4 - 8.2 G/DL 08/07/2021 5:09 PM [facility] ALBUMIN S/P/B 4.4 3.4 - 5.0 G/DL 08/07/2021 5:09 PM [facility] ANION GAP 11.1 5 - 15 MMOL/L 08/07/2021 5:09 PM [facility] Comment:REFERENCE RANGE NOT ESTABLISHED OSMOLALITY (CALC) 301 MOSM/KG 08/07/2021 5:09 PM [facility] Comment:REFERENCE RANGE NOT ESTABLISHED EGFR NON-AFR. AMER. 40(L) >90 ML/MIN/1 .73 M2 08/07/2021 5:09 PM [facility] EGFR AFR. AMER. 47(L) >90 ML/MIN/1 .73 M2 08/07/2021 5:09 PM [facility] GFR NOTES THE ESTIMATED GFR IS CALCULATED USING THE 2009 CKD-EPI EQUATION. THE FOLLOWING CATEGORIES FOR GRADING RENAL FUNCTION ARE RECOMMENDED BY THE INTERNATIONAL SOCIETY OF NEPHROLOGY (KDIGO 2012 CLINICAL PRACTICE GUIDELINE). 08/07/2021 5:09 PM [facility] Comment: G1,NORMAL OR HIGH: >89 ml/min/1.73 m2 G2,MILDLY DECREASED: 60-89 ml/min/1.73 m2 G3A,MILDLY TO MODERATELY DECREASED: 45-59 ml/min/1.73 m2 G3B,MODERATELY TO SEVERELY DECREASED: 30-44 ml/min/1.73 m2 G4,SEVERELY DECREASED: 15-29 ml/min/1.73 m2 G5,KIDNEY FAILURE: <15 ml/min/1.73 m2 08/07/2021 10:2 8 AM INCLINED RAILWAY OPERATOR Sami Liriano DO LABORATORY Final Re sult Performing Organization Address City/[facility]/ZIP Co de Phone Number [facility] [address] [place] [address], * VITAMIN D, 25 OH (08/07/2021 10:28 AM INCLINED RAILWAY OPERATOR) VITAMIN D 25 HYDROXY TOTAL S/P/B 20.7 20 - 50 NG/ML 08/07/2021 5:09 PM [facility] Comment: <10 ng/mL (Severe deficiency) 10 TO 19 ng/mL (Mild to Moderate deficiency) 20 TO 50 ng/mL (Optimum levels) 51 TO 80 ng/mL (Increased risk of hypercalciuria) >80 ng/mL (Toxicity possible) 08/07/2021 10:2 8 AM INCLINED RAILWAY OPERATOR Sami Liriano DO LABORATORY Final Re sult [facility] [place] [address] [place] [address], * TSH W/REFLEX (08/07/2021 10:28 AM INCLINED RAILWAY OPERATOR) TSH 1.839 0.358 - 3.740 uIU/ML 08/07/2021 5:09 PM INCLINED RAILWAY OPERATOR [facility] 08/07/2021 10:2 8 AM INCLINED RAILWAY OPERATOR Sami Liriano DO LABORATORY Final Re sult CARA KAMILA, [address] [address] [place] [address], * (ABNORMAL) LIPID PANEL (08/07/2021 10:28 AM INCLINED RAILWAY OPERATOR) CHOLESTEROL 153 <200 MG/DL 08/07/2021 5:09 PM INCLINED RAILWAY OPERATOR [facility] TRIGLYCERIDES 161(H) <150 MG/DL 08/07/2021 5:09 PM [facility] HDL 47 >40 MG/DL 08/07/2021 5:09 PM [facility] LDL-C 74 <100 MG/DL 08/07/2021 5:09 PM [facility] VLDL CALCULATION 32(H) 5 - 28 MG/DL 08/07/2021 5:09 PM [facility] CHOL/HDL RATIO 3.3 0.0 - 4.0 08/07/2021 5:09 PM [facility] LDL/HDL 1.6 0.41 - 2.13 08/07/2021 5:09 PM [facility] NON HDL CHOLESTEROL 106 <140 MG/DL 08/07/2021 5:09 PM [facility] 08/07/2021 10:2 8 AM INCLINED RAILWAY OPERATOR us Sami Liriano DO LABORATORY Final Re sult ALEAH TREVIÑO [place] [address] [facility] [place] [address], [place] [phone] * (ABNORMAL) CBC W/DIFF AUTOMATED (08/07/2021 10:28 AM INCLINED RAILWAY OPERATOR) WBC 12.0(H) 4.0 - 10.8 x10'3/uL 08/07/2021 2:21 PM INCLINED RAILWAY OPERATOR [facility] [place] RBC 4.42 4.10 - 5.40 x10'6/uL 08/07/2021 2:21 PM [facility] HGB 12.5 12.0 - 16.0 G/DL 08/07/2021 2:21 PM [facility] HCT 38.4 36.0 - 47.0 % 08/07/2021 2:21 PM INCLINED RAILWAY OPERATOR [facility] MCV 86.9 78.0 - 100.0 FL 08/07/2021 2:21 PM [facility] MCH 28.3 27.0 - 31.0 PG 08/07/2021 2:21 PM [facility] MCHC 32.6(L) 33.0 - 36.0 G/DL 08/07/2021 2:21 PM [facility] RDW 14.8(H) 11.5 - 14.5 % 08/07/2021 2:21 PM [facility] PLT 268 150 - 350 x10'3/uL 08/07/2021 2:21 PM [facility] MPV 10.4 7.4 - 10.4 FL 08/07/2021 2:21 PM [facility] DIFFERENTIAL TYPE AUTOMATED DIFFERENTIAL 08/07/2021 2:21 PM INCLINED RAILWAY OPERATOR [facility] NEUTROPHILS % 62.5 % 08/07/2021 2:21 PM INCLINED RAILWAY OPERATOR [facility] LYMPHOCYTES % 28.8 % 08/07/2021 2:21 PM INCLINED RAILWAY OPERATOR [facility] MONOCYTES % 6.8 % 08/07/2021 2:21 PM INCLINED RAILWAY OPERATOR [facility] EOSINOPHILS % 1.6 % 08/07/2021 2:21 PM INCLINED RAILWAY OPERATOR [facility] BASOPHILS % 0.3 % 08/07/2021 2:21 PM INCLINED RAILWAY OPERATOR [facility] ABS. NEUTROPHILS 7.49 1.60 - 8.30 x10'3/uL 08/07/2021 2:21 PM INCLINED RAILWAY OPERATOR [facility] ABS. LYMPHOCYTES 3.45 0.80 - 4.70 x10'3/uL 08/07/2021 2:21 PM INCLINED RAILWAY OPERATOR [facility] ABS. MONOCYTES 0.82 0.00 - 1.50 x10'3/uL 08/07/2021 2:21 PM INCLINED RAILWAY OPERATOR [facility] ABS. EOSINOPHILS 0.19 0.00 - 0.40 x10'3/uL 08/07/2021 2:21 PM INCLINED RAILWAY OPERATOR [facility] ABS. BASOPHILS 0.03 0.00 - 0.20 x10'3/uL 08/07/2021 2:21 PM INCLINED RAILWAY OPERATOR [facility] 08/07/2021 10:2 8 AM INCLINED RAILWAY OPERATOR us Sami Liriano DO LABORATORY Final Re sult [facility] [address] [place] [address], [place] [phone] documented in this encounter Visit Diagnoses Diagnosis Type 2 diabetes mellitus without complication, without long-term current use of insulin ([facility]/HCC)- Primary Vitamin D deficiency Unspecified vitamin D deficiency Screening for lipid disorders Screening for endocrine, metabolic and immunity disorder documented in this encounter Additional Health Concerns Assessment Noted Time PHQ-9 Depression Total Score: 5 06/22/20 21 10:07 AM CDT documented as of this encounter Care Teams Densitometer Reader Relationship Specialty Start Date End Date Sami Liriano DO [address] [place] [address] PCP - General FAMILY PRACTICE 12/24/19 documented as of this encounter
--- OUTSIDE RECORDS SUMMARY | 2024-09-19 12:21 | XMS_ITS | Encounter Summary ---
Author Organization [facility] Address [address] [place] [address]. [place], [place] [address] [place] [address] Care Team Providers Care Bending Roll Hand Name Role Phone Sami Liriano Primary Care Provider + Encounter Details Date Type Department Care Team (Late st Contact Info) Description 08/04/2021 Orders Only [facility] [place] [address] [place] [address] Erik Bowling MD [address] [facility] [address] [place] [address] Social History Tobacco Use Types [...] on file Legal Sex Female 12:43 PM BUNG DROPPER Gender Identity Female 12/18/2021 6:31 AM CDT Sexual Orientation Straight 01/15/2022 6: 11 AM CDT 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 No / Unsure 08/07/2021 9:32 AM BUNG DROPPER documented as of this encounter Plan of Treatment Upcoming Encounters Date Type Department Care Team (Late st Contact Info) Description 10/09/2024 9:30 AM BUNG DROPPER Office Visit [facility] [phone] Carlos Farris MD [facility] [address] [place] [address] 11/02/2024 10:20 AM BUNG DROPPER Office Visit [facility] Family & Internal Medicine - [address] [phone] Sami Liriano DO [address] [place] [address] documented as of this encounter Visit Diagnoses Diagnosis Essential hypertension- Primary Unspecified essential hypertension Mixed hyperlipidemia documented in this encounter Additional Health Concerns Assessment Noted Time PHQ-9 Depression Total Score: 5 06/22/20 21 10:07 AM CDT documented as of this encounter Care Teams Bending Roll Hand Relationship Specialty Start Date End Date Sami Liriano DO [address] [place] [id number] PCP - General FAMILY PRACTICE 12/24/19 documented as of this encounter
--- OUTSIDE RECORDS SUMMARY | 2024-09-19 12:21 | XMS_ITS | Encounter Summary ---
Author Organization [facility] Address [address] [place] [address]. [place], [place] [address] [place] [address] Care Team Providers Care County Engineer Name Role Phone Sami Liriano DO Primary Care Provider + Reason for Visit * Reason Onset Date Comments Pre-visit Gap Closure 07/31/2021 Encounter Details Date Type Department Care Team (Late st Contact Info) Description 07/31/2021 Telephone [facility] Family & Internal Medicine [phone] [place] [address] Sami Liriano DO [facility] [place], [place] [phone] Pre-visit Gap Closure Social History Tobacco Use [...] on file Legal Sex Female 12:43 PM SCROLL SAW OPERATOR Gender Identity Female 12/18/2021 6:31 AM [...] Progress Notes * Saba Mcginnis CMA - 07/31/2021 1:39 PM CDT Contacted patient for pre-visit gap closure. I am calling this patient as a patient advocate for the [employer]. My direct extension is [phone]. You can also reach me at: [phone] (MEENA) OR [phone] (JEVON) documented in this encounter Plan of Treatment Upcoming Encounters Date Type Department Care Team (Late st Contact Info) Description 10/09/2024 9:30 AM SCROLL SAW OPERATOR Office Visit [facility] [phone] Carlos Farris MD [facility] [address] [facility] [place] [address] 11/02/2024 10:20 AM SCROLL SAW OPERATOR Office Visit [facility] Family & Internal Medicine - [address] [phone] Sami Liriano DO [address] [place] [address] documented as of this encounter Visit Diagnoses Not on filedocumented in this encounter Additional Health Concerns Assessment Noted Time PHQ-9 Depression Total Score: 5 06/22/20 21 10:07 AM CDT documented as of this encounter Care Teams County Engineer Relationship Specialty Start Date End Date Sami Liriano DO [address] [place] [id number] PCP - General FAMILY PRACTICE 12/24/19 documented as of this encounter
--- OUTSIDE RECORDS SUMMARY | 2024-09-19 12:21 | XMS_ITS | Encounter Summary ---
Author Organization [facility] Address Critical access hospital6 [facility]. [place], [place] [address] [place] [address] Care Team Providers Care Quantitative Researcher Name Role Phone Sami Liriano Primary Care Provider + Encounter Details Date Type Department Care Team (Latest Contact Info) Description 07/17/2021 Travel Social History Tobacco Use Types Packs/Day [...] on file Legal Sex Female 12:43 PM HEAD OF PARTNER DEVELOPMENT Gender Identity Female 12/18/2021 6:31 AM CDT [...] st Contact Info) Description 10/09/2024 9:30 AM HEAD OF PARTNER DEVELOPMENT Office Visit [facility] [phone] Carlos Farris MD Three [facility] [address] [place] [address] 11/02/2024 10:20 AM HEAD OF PARTNER DEVELOPMENT Office Visit [facility] Family & Internal Medicine - [address] [phone] Sami Liriano DO [address] [place] [address] documented as of this encounter Visit Diagnoses Not on filedocumented in this encounter Additional Health Concerns Assessment Noted Time PHQ-9 Depression Total Score: 5 06/22/20 21 10:07 AM CDT documented as of this encounter Care Teams Quantitative Researcher Relationship Specialty Start Date End Date Sami Liriano DO [address] [place] [address] PCP - General FAMILY PRACTICE 12/24/19 documented as of this encounter
--- OUTSIDE RECORDS SUMMARY | 2024-09-19 12:21 | XMS_ITS | Encounter Summary ---
Author Organization [facility] Address Counts include 234 beds at the [facility]. [place], [place] [address] [place] [address] Care Team Providers Care Project Technician Name Role Phone Sami Liriano Primary Care Provider + Reason for Visit * Reason Onset Date Comments Appointment Request 08/15/2021 Encounter Details Date Type Department Care Team (Late st Contact Info) Description 08/15/2021 Telephone [facility] Diabetes and Endocrinology - [place] [address] [facility] [place] [address] Appointment Request Social History Tobacco Use Types Packs/Day [...] on file Legal Sex Female 12:43 PM PRUNER Gender Identity Female 12/18/2021 6:31 AM CDT Sexual Orientation Straight 01/15/2022 6: 11 AM CDT 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 No / Unsure 08/07/2021 9:32 AM PRUNER documented as of this encounter Progress Notes * Maude Siegel RD - 08/15/2021 10:24 AM CST Patient returned call and appt is scheduled. ER * Maude Siegel RD - 08/15/2021 9:04 AM CST Attempted 1st call to patient to schedule an appt to see the dietitian. No answer so vm was left. ER documented in this encounter Plan of Treatment Upcoming Encounters Date Type Department Care Team (Late st Contact Info) Description 10/09/2024 9:30 AM PRUNER Office Visit [facility] [phone] Carlos Farris MD Three [facility] [address] [place] [address] 11/02/2024 10:20 AM PRUNER Office Visit [facility] Family & Internal Medicine - [address] [phone] Sami Liriano DO [address] [place] [address] documented as of this encounter Visit Diagnoses Not on filedocumented in this encounter Additional Health Concerns Assessment Noted Time PHQ-9 Depression Total Score: 5 06/22/20 21 10:07 AM CDT documented as of this encounter Care Teams Project Technician Relationship Specialty Start Date End Date Sami Liriano DO [address] [place] [address] PCP - General FAMILY PRACTICE 12/24/19 documented as of this encounter
--- OUTSIDE RECORDS SUMMARY | 2024-09-19 12:21 | XMS_ITS | Encounter Summary ---
Author Organization [facility] Address [address] [place] [address]. [place], [place] [address] [place] [address] Care Team Providers Care Molding And Trim Installer Name Role Phone Sami Liriano DO Primary Care Provider + Reason for Visit * Reason Onset Date Comments Results 08/08/2021 Encounter Details Date Type Department Care Team (Late st Contact Info) Description 08/08/2021 Telephone [facility] Family & Internal Medicine [place] [address] [place] [address] Sami Liriano DO [address] [place] [address] Results Social History Tobacco Use Types [...] on file Legal Sex Female 12:43 PM CAFE ASSISTANT Gender Identity Female 12/18/2021 6:31 AM CDT [...] COVID-19? No / Unsure 08/07/2021 9:32 AM CAFE ASSISTANT documented as of this encounter Progress Notes * Radha Oglesby MA - 08/08/2021 12:19 PM CST Patient notified and v/u ASSISTANT * Radha Oglesby MA - 08/08/2021 12:15 PM CST ----- Message from Sami Liriano DO sent at 08/08/2021 7:28 AM CAFE ASSISTANT ----- Potassium is still a bit low; kidney function did improve mildly. If pt is taking only 20 mg of furosemide, can stop entirely. (If taking 60 mg daily, then go down to 20 mg). Also, increase potassiumto 2 tablets daily for 2 weeks. Few other nonspecific findings we will recheck at next OV. ASSISTANT documented in this encounter Plan of Treatment Upcoming Encounters Date Type Department Care Team (Late st Contact Info) Description 10/09/2024 9:30 AM CAFE ASSISTANT Office Visit [facility]-[address] [phone] Carlos Farris MD Three [facility] Suite [facility] [place] [address] 11/02/2024 10:20 AM CAFE ASSISTANT Office Visit [facility] Family & Internal Medicine - [address] [phone] [place] [address] [place] [address] documented as of this encounter Visit Diagnoses Diagnosis Overactive bladder Hypertonicity of bladder Hyperlipidemia Other and unspecified hyperlipidemia Essential hypertension Unspecified essential hypertension Type 2 diabetes mellitus without complication, without long-term current use of insulin ([facility]) Gastroesophageal reflux disease without esophagitis Esophageal reflux Bilateral lower extremity edema Edema documented in this encounter Additional Health Concerns Assessment Noted Time PHQ-9 Depression Total Score: 5 06/22/20 21 10:07 AM CDT documented as of this encounter Care Teams Molding And Trim Installer Relationship Specialty Start Date End Date Sami Liriano DO [address] [place] [address] PCP - General FAMILY PRACTICE 12/24/19 documented as of this encounter
--- OUTSIDE RECORDS SUMMARY | 2024-09-19 12:21 | XMS_ITS | Encounter Summary ---
Author Organization [facility] Address [facility] [place] [place], [place] [address] [place] [address] Care Team Providers Care Hand Cooper Helper Name Role Phone Sami Liriano Primary Care Provider + Reason for Visit * Reason Onset Date Comments Results 07/21/2021 Encounter Details Date Type Department Care Team (Late st Contact Info) Description 07/21/[address] [phone] Radha Hodgson, RN Results Social History Tobacco Use Types Packs/Day [...] on file Legal Sex Female 12:43 PM MICA SPREADER Gender Identity Female 12/18/2021 6:31 AM CDT [...] of this encounter Progress Notes * Radha Hodgson RN - 07/21/2021 4:04 PM CDT ----- Message from Maria L Bess APRN sent at 07/18/2021 12:03 PM CDT ----- Stress imaging normal no infarct or ischemia Echo overall stable EF 65-70 Mild valve regurgitation Called to inform pt of above. LM with my contact information. ARTEMIO Garcia documented in this encounter Plan of Treatment Upcoming Encounters Date Type Department Care Team (Late st Contact Info) Description 10/09/2024 9:30 AM MICA SPREADER Office Visit [facility]-[address] [phone] Carlos Farris MD Three [facility] Suite [facility] [place] [address] 11/02/2024 10:20 AM MICA SPREADER Office Visit [facility] Family & Internal Medicine - [address] [phone] Sami Liriano DO [address] [place] [address] documented as of this encounter Visit Diagnoses Not on filedocumented in this encounter Additional Health Concerns Assessment Noted Time PHQ-9 Depression Total Score: 5 06/22/20 21 10:07 AM CDT documented as of this encounter Care Teams Hand Cooper Helper Relationship Specialty Start Date End Date Sami Liriano DO [facility] [place] [address] PCP - General FAMILY PRACTICE 12/24/19 documented as of this encounter
--- OUTSIDE RECORDS SUMMARY | 2024-09-19 12:21 | XMS_ITS | Encounter Summary ---
Author Organization [facility] Address [facility]. [place], [place] [address] [place] [address] Care Team Providers Care Social Work Case Manager Name Role Phone Sami Liriano Primary Care Provider + Encounter Details Date Type Department Care Team (Latest Contact Info) Description 07/17/2021 7:35 AM CDT Hospital Encounter [facility] [address] [address] Erik Bowling MD 3 [facility] [address] [place] [address] Discharge Disposition: Home or Self Care (Routine [...] on file Legal Sex Female 12:43 PM RESEARCH STUDY ASSISTANT Gender Identity Female 12/18/2021 6:31 AM CDT Sexual Orientation Straight 01/15/2022 6: 11 AM CDT 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 02/20/2021 1 atorvastatin (LIPITOR) 10 MG tablet Take 1 tablet by mouth nightly. 05/19/2021 2 ATORVASTATIN 10 MG tabletIndications: Hyperlipidemia TAKE 1 TABLET BY MOUTH EVERYDAY AT BEDTIME 90 tablet 1 05/29/2021 1 CHLORTHALIDONE 25 MG tabletIndications: Essential hypertension TAKE 1 TABLET BY MOUTH EVERY DAY 90 tablet 1 03/03/2021 1 escitalopram 20 MG tablet Take 20 mg by mouth daily. 05/29/2020 1 furosemide 20 MG tabletIndications: Essential hypertension Take 3 tablets (60 mg total) by mouth daily. 180 tablet 3 06/14/2021 1 LISINOPRIL 40 MG tabletIndications: Essential hypertension TAKE 1 TABLET BY MOUTH EVERY DAY 90 tablet 1 04/18/2021 1 OMEPRAZOLE 40 MG capsuleIndications :Gastroesophageal reflux disease without esophagitis TAKE 1 CAPSULE BY MOUTH EVERY DAY 90 capsule 1 06/19/2021 1 OXYBUTYNIN XL 5 MG 24 hr tabletIndications: Overactive bladder TAKE 1 TABLET BY MOUTH EVERY DAY 90 tablet 1 05/24/2021 1 potassium chloride CR 10 MEQ Tab CR tabletIndications: Bilateral lower extremity edema TAKE 1 TABLET BY MOUTH EVERY DAY 90 tablet 1 01/24/2021 1 traMADol 50 MG tabletIndications: Chronic Pain Take 1 tablet (50 mg total) by mouth every 6 (six) hours as needed for Pain. Indications: Chronic Pain 60 tablet 03/01/2021 documented as of this encounter Plan of Treatment Upcoming Encounters Date Type Department Care Team (Late st Contact Info) Description 10/09/2024 9:30 AM RESEARCH STUDY ASSISTANT Office Visit [facility]-[address] [phone] Carlos Farris MD Three [facility] [address] [place] [address] 11/02/2024 10:20 AM RESEARCH STUDY ASSISTANT Office Visit [facility] Family & Internal Medicine - [address] [phone] Sami Liriano DO [address] [place] [address] documented as of this encounter Procedures Procedure Name Priority Date/Time Associated Diagnosis Comments PRO-BRAIN NATRIURETIC PEPTIDE Routine 07/17/2021 8:31 AM CDT Sleep disturbances Edema Shortness of breath HTN (hypertension) documented in this encounter Results * (ABNORMAL) PRO-BRAIN NATRIURETIC PEPTIDE (07/17/2021 8:31 AM CDT) PRO-B TYPE NATRIURETIC PEPTIDE 266(H) <125 PG/ML 07/17/2021 9:04 AM CDT [facility] Comment: CUT POINTS ESTABLISHED BY INTERNATIONAL [...] FOR ACUTE CHF. 07/17/2021 8:31 AM CDT Erik Bowling MD LABORATORY Final Result [facility] [address] [place] [address], documented in this encounter Visit Diagnoses Diagnosis Sleep disturbance Sleep disturbance, unspecified Edema SOB (shortness of breath) Shortness of breath High blood pressure Unspecified essential hypertension MOR (obstructive sleep apnea) Obstructive sleep apnea (adult) (pediatric) Sleep disturbances Sleep disturbance, unspecified Shortness of breath HTN (hypertension) Unspecified essential hypertension documented in this encounter Additional Health Concerns Assessment Noted Time PHQ-9 Depression Total Score: 5 06/22/20 21 10:07 AM CDT documented as of this encounter Care Teams Social Work Case Manager Relationship Specialty Start Date End Date Sami Liriano DO [address] [place] [address] PCP - General FAMILY PRACTICE 12/24/19 documented as of this encounter
--- OUTSIDE RECORDS SUMMARY | 2024-09-19 12:21 | XMS_ITS | Encounter Summary ---
Author Organization [facility] Address [facility]6 [facility]. [place], [place] [address] [place] [address] Care Team Providers Care 911 Emergency Dispatcher Name Role Phone Sami Liriano DO Primary Care Provider + Reason for Visit * Reason Comments Type 2 Diabetes * Consultation (Routine) - Closed Specialty Diagnoses / Procedures Referred By Contact Referred To Contact NUTRITION / ENDOCRINOLOGY Diagnoses Type 2 diabetes mellitus without complication, without long-term current use of insulin ([facility]) Sami Liriano DO [address] [place] [address] Phone: tel:[phone] fax:[phone] [facility] Diabetes and Endocrinology - [place] [address] Phone: tel: fax: Referral ID Status Reason Start Date Expiration Date Visits Re quested Visits Authorized [id number] Closed 08/07/2021 09/07/2022 99 [phone] Encounter Details Date Type Department Care Team (Late st Contact Info) Description 09/04/2021 11:00 AM CRAFT DEMONSTRATOR Office Visit [facility] Diabetes and Endocrinology - [place] Type 2 Diabetes Social History Tobacco Use Types Packs/Day Years [...] on file Legal Sex Female 12:43 PM CRAFT DEMONSTRATOR Gender Identity Female 12/18/2021 6:31 AM CDT Sexual Orientation Straight 01/15/2022 6: 11 AM CDT 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 No / Unsure 09/04/2021 10:27 AM CRAFT DEMONSTRATOR documented as of this encounter Progress Notes * Maude Siegel, RD - 09/04/2021 11:00 AM CST Images from the original note were not included. CLINICAL DIETITIAN OUTPATIENT MEDICAL NUTRITION THERAPY REPORT Patient: Jolly Sargent : 1955 Date of visit: 09/04/2021 Visit Start Time: 10:50 Visit End Time: 11:45 Total Visit Time: 55 minutes Units: 3 mnt units Physician diagnosis: 1. Uncontrolled type 2 diabetes mellitus with hyperglycemia ([facility]) NUTRITION ASSESSMENT CLIENT HISTORY Age: 66-year-old PMH: Past Medical History: Diagnosis Date ??? Arthritis ??? Arthritis of left knee 11/08/2019 ??? Depression ??? GERD (gastroesophageal reflux disease) ??? Hypertension ??? Overactive bladder Other/social Hx: Social History Tobacco Use ??? Smoking status: Former Smoker Packs/day: 1.00 Years: 12.00 Pack years: 12.00 Types: Cigarettes Quit date: 1976 Years since quittin.9 ??? Smokeless tobacco: Never Used Vaping Use ??? Vaping Use: Never used Substance Use Topics ??? Alcohol use: Yes Comment: 2 cocktails on some Sundays ??? Drug use: Never ANTHROPOMETRICS Height: Ht Readings from Last 1 Encounters: 08/07/21 5' 0.5 (1.537 m) cm Weight: Wt Readings from Last 1 Encounters: 08/07/21 112.5 kg (248 lb) kg BMI: 47.6 Social History Diet: Regular Weight concerns: Morbid obesity based on BMI of 47.6. Exercise: Pt. reported barriers: Knee pain-needs knee replacement. Subjective Pt stated she has made nutrition changes since finding out she has diabetes. Checking blood sugar several times/day and reported sugars are reported to be within recommended levels. Patient is currently not physically active due to knee issues, but does have the [employer] program. Discussing swimming or using the recumbent bike. Patient has been eating 3 meals a day and trying out some ketorecipes she has found. Patient has lost 12 pounds since making changes. Objective Nutrition Diagnosis: Altered nutrition related lab values related to endocrine dysfunction as evidenced by HgbA1C greater than 7%. Nutrition Recommendations for Patient: 1400 kcals/day with 150 grams of cho daily. 45 grams per meal and 1 snack a day of 15 grams of cho. Discussion / Summary Nutrition Intervention: Provided and discussed the following materials: Healthy Meal Planning by Nat, & Nat Snacklist. Educated patient on the importance of measuring serving sizes, counting all CHO eaten, spacing CHO between all meals and snacks, spacing meals and snacks at least 2-3 hours apart, eating more whole grains, decreasing intake of fat, increasing physical activity with a goal of 150 minutes weekly, eating at home more often, aiming for 10% weight loss if weight loss is needed, and label reading. Reviewed how to read foods labels and the importance of looking at serving size/total CHO listed. Reviewed serving sizes of foods with discussion of the effect of portion size on achieving CHO intake goals, BG goals, and wt. management goals. Recommended pt. measure or weigh foods / beverages or use appropriate techniques to estimate serving / portion size. Goals / Outcomes: HgbA1C level will be less than 7% or as recommended by physician. Meal / snack pattern will be consistent with recommendations. Pt. will aim to complete a minimum of 150 minutes of activity per week. Monitoring & Evaluation: Pt. encouraged to call RD if questions arise. Follow up as needed / desired. Maude Siegel RD 09/04/2021 T DEMONSTRATOR documented in this encounter Plan of Treatment Upcoming Encounters Date Type Department Care Team (Late st Contact Info) Description 10/09/2024 9:30 AM CRAFT DEMONSTRATOR Office Visit [facility]-[address] [phone] Carlos Farris MD [address] [facility] [address] [place] [address] 11/02/2024 10:20 AM CRAFT DEMONSTRATOR Office Visit [facility] Family & Internal Medicine - [address] [phone] Sami Liriano DO [address] [place] [address] documented as of this encounter Visit Diagnoses Diagnosis Uncontrolled type 2 diabetes mellitus with hyperglycemia ([facility])- Primary documented in this encounter Additional Health Concerns Assessment Noted Time PHQ-9 Depression Total Score: 5 06/22/20 21 10:07 AM CDT documented as of this encounter Care Teams 911 Emergency Dispatcher Relationship Specialty Start Date End Date Sami Liriano DO [address] [place] [address] PCP - General FAMILY PRACTICE 12/24/19 documented as of this encounter
--- OUTSIDE RECORDS SUMMARY | 2024-09-19 12:22 | XMS_ITS | Encounter Summary ---
Author Organization [facility] Address [facility]. [place], [place] [address] [place] [id number] Care Team Providers Care Electrostatic Painter Name Role Phone Heri Sami Rivera DO Primary Care Provider + Reason for Referral * Sleep Lab (Routine) - Closed Specialty Diagnoses / Procedures Referred By Shereen benton Referred To Contact Cardiology Diagnoses Sleep disturbance Edema SOB (shortness of breath) High blood pressure MOR (obstructive sleep apnea) Procedures Diagnostic PSG (00402, 59320) Erik Dewitt MD [address] [address] Phone: tel: fax: [facility] [address] [place] [address] Phone: tel: fax: Referral ID Status Reason Start Date Expiration Date Visits Re quested Visits Authorized [id number] Closed 06/16/2021 09/21/2021 1 1 Reason for Visit * Sleep Lab (Routine) - Closed Specialty Diagnoses / Procedures Referred By Shereen benton Referred To Contact Cardiology Diagnoses Sleep disturbance Edema SOB (shortness of breath) High blood pressure MOR (obstructive sleep apnea) Procedures Diagnostic PSG (09550, 06325) Erik Dewitt MD 3 [facility] [address] [place] [phone] Phone: tel: fax: [facility] [address] [place] [address] Phone: tel: fax: Referral ID Status Reason Start Date Expiration Date Visits Re quested Visits Authorized [id number] Closed 06/16/2021 09/21/2021 1 1 Encounter Details Date Type Department Care Team (Latest Contact Info) Description 07/01/2021 8:00 PM CDT - 07/01/2021 11:59 PM CDT Hospital Encounter [facility] [address] [place] [address] Erik Dewitt MD 3 [facility] [address] [place] [phone] Discharge Disposition: Home or Self Care [...] on file 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 No / Unsure 07/01/2021 7:58 PM CDT documented as of this encounter Medications [...] Pain. Indications: Chronic Pain 60 tablet 03/01/2021 1 documented as of this encounter Procedure Notes * Neto Shelby MD - 07/01/2021 8:00 PM CDTAssociated Order(s): POLYSOMNOGRAPHY 4 OR MORE PARAMETERS [facility]???[facility] O???[facility] NIGHT POLYSOMNOGRAM INTERPRETATION PATIENT NAME: JOLLY SARGENT DATE OF : 1955 DATE OF SERVICE: 07/01/2021 PATIENT TYPE: CLI Ordering Phy Exam Description ERIK DEWITT MD SL PSG 4+PARAMETERS W/CPAP ATTENDING PHYSICIAN: Neto Shelby MD REFERRING PHYSICIAN: ERIK DEWITT MD GENERAL INFORMATION Total Sleep Time: 356.5 minutes Sleep Efficiency Index: 75.3% Sleep Latency: 22.5 minutes REM Latency: 147.5 minutes Apnea-Hypopnea Index: 42.6 per hour Post Apnea-Hypopnea Index: 1.5 per hour on CPAP of 9 cm h2O Procedure: The overnight polysomnogram was an attended study using a multiple channel system including simultaneous monitoring and recording of electroencephalography (EEG), right and left electrooculography (EOC), submental electromyography (EOG), submental electromyography (EMG), EKG, oral/nasal a irflow, snoring, respiratory effort, oxygen saturations, right and left anterior tibialis electromyography, and body position. Sleep Architecture: During the diagnostic phase of the study, the patient slept for of 201.5 minutes during 240.5 minutes of recording time. Latency to sleep onset was 22.5 minutes with sleep efficiency of 83.8% and a REM latency of 147.5 minutes. Patient spent 5.0% (10.0 minutes) in stage N1, 64.3% (129.5 minutes) in stage N2, 0.0% (0.0 minutes) in Stage N3, 30.8% (62.0 minutes) in REM. The patie nt slept 10.7% of the time in supine position, 0.0% of the time in prone position, 40.0% of the time in left-sided position, and 49.4% of the time in right-sided position. There were 48 arousals, of which 28 were associated with respiratory events and 6 were spontaneous. Arousal index was 14.3 per hour. During the treatment phase of the study, the patient slept for of 155.0 minutes during 232.8 minutes of recording time. Latency to sleep onset was 19.0 minutes with sleep efficiency of 66.6%. Slow-wave sleep represented 0.0% of sleep time. REM sleep represented 0.0% of sleep time, with a REM latency of - minutes. Patient spent 11.9% (18.5 minutes) in stage N1, 88.1% (136.5 minutes) in stage N2, 0.0% (0.0 minutes) in Stage N3, 0.0% (0.0 minutes) in REM. The patient slept 34.8% of the time in supine position, 0.0% of the time in prone position, 0.0% of the time in left-sided position, and 65.2%of the time in right-sided position. There were 36 arousals, of which 7 were associated with respiratory events and 21 were spontaneous. Arousal index was 13.9 per hour. Limb Activity Summary: During the diagnostic phase of the study, the patient demonstrated a total of 57 leg movements during the night, of which 31 had the appearance of periodic limb movements. There were a total of 3 arousals associated with leg movements for an arousal index with leg movements of 0.9 per hour. The periodic limb movement index was 9.2 per hour. During the treatment phase of the study, the patient demonstrated a total of 41 leg movements during the night, of which 17 had the appearance of periodic limb movements. There were a total of 2 arousals associated with leg movements for an arousal index with leg movements of 0.8 per hour. The periodic limb movement index was 6.6 per hour. Cardiac Events Summary: The average heart rate was 56.2 beats per minute. Bradycardia was noted during this study. Respiratory Events Summary: During the diagnostic phase of the study, there were a total of 160 apneas and hypopneas, of which 10 were apneas. Of those apneas, 8 were Obstructive, 2 were Central and - were Mixed. There were an additional - respiratory event-related arousals. The overall AHI was 42.6 per hour and the overall RDI was 47.6 per hour. During non-supine sleep, the overall AHI was 39.0 per hour. During supine sleep, the overall AHI was 72.6 per hour. NREM AHI was 36.1 per hour and REMAHI was 57.1 per hour. During the treatment phase of the study, there were a total of 50 apneas and hypopneas, of which 5 were apneas. Of those apneas, 3 were Obstructive, 2 were Central and - were Mixed. There were an additional - respiratory event-related arousals. The overall AHI was 15.5 per hour and the overall RDI was 19.4 per hour. During non-supine sleep, the overall AHI was 12.5 per hour. During supine sleep, the overall AHI was 21.1 per hour. NREM AHI was 15.5 per hour and REM AHI was 0.0 per hour. Oxygen Saturation Summary: During the diagnostic phase of the test, the patient???s average saturation was 90.6% during REM and 92.9% during NREM. The patient???s lowest saturation was 76.0% during REM and 82.0% during NREM. Saturation was 90% or higher for 83.6% of the total sleep time. Saturationwas less than or equal to 88% for 8.3% of the total sleep time or 20.0 minutes. During the treatment phase of the test, the patient???s average saturation was - during REM and 93.6% during NREM. The patient???s lowest saturation was - during REM and 86.0% during NREM. Saturationwas 90% or higher for 98.8% of the total sleep time. Saturation was less than or equal to 88% for 0.1% of the total sleep time or 0.2 minutes. CPAP/BiLevel Therapy Summary: The patient underwent CPAP titration starting at 4 cm H2O, up to a maximum of 9 cm H2O. The patient slept for 40.0 minutes while on the optimal pressure of 9 cm H2O withan AHI of 1.5 per hour, arousal index of 9.0 per hour and minimum oxygen saturation of 90.0%. Assessment/Plan: Severe Obstructive Sleep Apnea. This patient was fully titrated in the allotted time during this study. I recommend initiation of CPAP at home set at 9.0 cm h2O with heated humidity.A one month follow up should be scheduled with the ordering physician to assess the benefit and tolerance of this therapy. This patient???s oxygen saturation was below 88.0% for 8.6% of the diagnostic segment of the study. Once PAP was initiated, oxygen saturation was below 88.0% for 0.1% and at the final pressure, the minimum saturation was 90.0%. Possible need to do additional testing with fullnight titration with possible supplemental oxygen addition if there are still significant desaturations when patient???s AHI is within normal limits should be considered. Also, bradycardia was noted during this study. The possibility of additional medical evaluation based on noted desaturations andbradycardia should be considered. The patient used a Respironics Dreamwear Wisp during the study. This patient should maintain a consistent sleep/wake schedule with adequate hours of sleep and avoid h azardous activities when sleepy. The patient should be cautioned about factors that may potentiallyexacerbate snoring and other sleep-related issues, such as POLE FRAMER MACHINE depressants, especially at bedtime. This document was electronically signed by: Neto Shelby M.D. on 07/05/2021 at 9:08 AM. documented in this encounter Plan of Treatment Upcoming Encounters Date Type Department Care Team (Late st Contact Info) Description 10/09/2024 9:30 AM BELT MAKER HELPER Office Visit [facility] [phone] Carlos Farris MD [facility] [address] [place] [address] 11/02/2024 10:20 AM BELT MAKER HELPER Office Visit [facility] Family & Internal Medicine - [address] [phone] Sami Liriano DO [address] [place] [address] documented as of this encounter Procedures Procedure Name Priority Date/Time Associated Diagnosis Comments POLYSOMNOGRAPHY 4 OR MORE PARAMETERS Routine 07/01/2021 8:00 PM CDT Sleep disturbance Edema SOB (shortness of breath) High blood pressure MOR (obstructive sleep apnea) documented in this encounter Results * Diagnostic PSG (19804, 60850) (07/01/2021 8:00 PM CDT) Narrative [facility] - 07/01/2021 8:00 PM CDT Neto Shelby MD ? 07/05/2021 ??2:[address] [facility] [place] NIGHT POLYSOMNOGRAM INTERPRETATION PATIENT NAME: JOLLY SARGENT DATE OF : 1955 DATE OF SERVICE: 07/01/2021 PATIENT TYPE: CLI Ordering Phy Exam Description ERIK DEWITT MD SL PSG 4+PARAMETERS W/CPAP ATTENDING PHYSICIAN: Neto Shelby MD REFERRING PHYSICIAN: ERIK DEWITT MD GENERAL INFORMATION Total Sleep Time: 356.5 minutes Sleep Efficiency Index: 75.3% Sleep Latency: 22.5 minutes REM Latency: 147.5 minutes Apnea-Hypopnea Index: 42.6 per hour ?? Post Apnea-Hypopnea Index: 1.5 per hour on CPAP of 9 cm h2O Procedure: The overnight polysomnogram was an attended study using a multiple channel system including simultaneous monitoring and recording of electroencephalography (EEG), right and left electrooculography (EOC), submental electromyography (EOG), submental electromyography (EMG), EKG, oral/nasal airflow, snoring, respiratory effort, oxygen saturations, right and left anterior tibialis electromyography, and body position. Sleep Architecture: During the diagnostic phase of the study, the patient slept for of 201.5 minutes during 240.5 minutes of recording time. Latency to sleep onset was 22.5 minutes with sleep efficiency of 83.8% and a REM latency of 147.5 minutes. Patient spent 5.0% (10.0 minutes) in stage N1, 64.3% (129.5 minutes) in stage N2, 0.0% (0.0 minutes) in Stage N3, 30.8% (62.0 minutes) in REM. The patient slept 10.7% of the time in supine position, 0.0% of the time in prone position, 40.0% of the time in left-sided position, and 49.4% of the time in right-sided position. There were 48 arousals, of which 28 were associated with respiratory events and 6 were spontaneous. Arousal index was 14.3 per hour. During the treatment phase of the study, the patient slept for of 155.0 minutes during 232.8 minutes of recording time. Latency to sleep onset was 19.0 minutes with sleep efficiency of 66.6%. Slow-wave sleep represented 0.0% of sleep time. REM sleep represented 0.0% of sleep time, with a REM latency of - minutes. Patient spent 11.9% (18.5 minutes) in stage N1, 88.1% (136.5 minutes) in stage N2, 0.0% (0.0 minutes) in Stage N3, 0.0% (0.0 minutes) in REM. The patient slept 34.8% of the time in supine position, 0.0% of the time in prone position, 0.0% of the time in left-sided position, and 65.2% of the time in right-sided position. There were 36 arousals, of which 7 were associated with respiratory events and 21 were spontaneous. Arousal index was 13.9 per hour. Limb Activity Summary: During the diagnostic phase of the study, the patient demonstrated a total of 57 leg movements during the night, of which 31 had the appearance of periodic limb movements. There were a total of 3 arousals associated with leg movements for an arousal index with leg movements of 0.9 per hour. The periodic limb movement index was 9.2 per hour. During the treatment phase of the study, the patient demonstrated a total of 41 leg movements during the night, of which 17 had the appearance of periodic limb movements. There were a total of 2 arousals associated with leg movements for an arousal index with leg movements of 0.8 per hour. The periodic limb movement index was 6.6 per hour. Cardiac Events Summary: The average heart rate was 56.2 beats per minute. Bradycardia was noted during this study. Respiratory Events Summary: During the diagnostic phase of the study, there were a total of 160 apneas and hypopneas, of which 10 were apneas. Of those apneas, 8 were Obstructive, 2 were Central and - were Mixed. There were an additional - respiratory event-related arousals. The overall AHI was 42.6 per hour and the overall RDI was 47.6 per hour. ??During non-supine sleep, the overall AHI was 39.0 per hour. ??During supine sleep, the overall AHI was 72.6 per hour. NREM AHI was 36.1 per hour and REM AHI was 57.1 per hour. During the treatment phase of the study, there were a total of 50 apneas and hypopneas, of which 5 were apneas. Of those apneas, 3 were Obstructive, 2 were Central and - were Mixed. There were an additional - respiratory event-related arousals. The overall AHI was 15.5 per hour and the overall RDI was 19.4 per hour. During non-supine sleep, the overall AHI was 12.5 per hour. During supine sleep, the overall AHI was 21.1 per hour. NREM AHI was 15.5 per hour and REM AHI was 0.0 per hour. Oxygen Saturation Summary: During the diagnostic phase of the test, the patient? s average saturation was 90.6% during REM and 92.9% during NREM. ??The patient? s lowest saturation was 76.0% during REM and 82.0% during NREM. Saturation was 90% or higher for 83.6% of the total sleep time. Saturation was less than or equal to 88% for 8.3% of the total sleep time or 20.0 minutes. During the treatment phase of the test, the patient? s average saturation was - during REM and 93.6% during NREM. ??The patient? s lowest saturation was - during REM and 86.0% during NREM. Saturation was 90% or higher for 98.8% of the total sleep time. Saturation was less than or equal to 88% for 0.1% of the total sleep time or 0.2 minutes. CPAP/BiLevel Therapy Summary: The patient underwent CPAP titration starting at 4 cm H2O, up to a maximum of 9 cm H2O. The patient slept for 40.0 minutes while on the optimal pressure of 9 cm H2O with an AHI of 1.5 per hour, arousal index of 9.0 per hour and minimum oxygen saturation of 90.0%. Assessment/Plan: Severe Obstructive Sleep Apnea. This patient was fully titrated in the allotted time during this study. I recommend initiation of CPAP at home set at 9.0 cm h2O with heated humidity. A one month follow up should be scheduled with the ordering physician to assess the benefit and tolerance of this therapy. This patient? s oxygen saturation was below 88.0% for 8.6% of the diagnostic segment of the study. Once PAP was initiated, oxygen saturation was below 88.0% for 0.1% and at the final pressure, the minimum saturation was 90.0%. Possible need to do additional testing with full night titration with possible supplemental oxygen addition if there are still significant desaturations when patient? s AHI is within normal limits should be considered. ??Also, bradycardia was noted during this study. The possibility of additional medical evaluation based on noted desaturations and bradycardia should be considered. The patient used a Respironics Dreamwear Wisp during the study. This patient should maintain a consistent sleep/wake schedule with adequate hours of sleep and avoid hazardous activities when sleepy. The patient should be cautioned about factors that may potentially exacerbate snoring and other sleep-related issues, such as POLE FRAMER MACHINE depressants, especially at bedtime. This document was electronically signed by: Neto Shelby M.D. on 07/05/2021 at 9:08 AM. us Erik Dewitt MD SLEEP [facility]ENTER ORDERABLES Final Result [facility] [address] [place] [address], documented in this encounter Visit Diagnoses Diagnosis Sleep disturbance Sleep disturbance, unspecified Edema SOB (shortness of breath) Shortness of breath High blood pressure Unspecified essential hypertension MOR (obstructive sleep apnea) Obstructive sleep apnea (adult) (pediatric) documented in this encounter Additional Health Concerns Assessment Noted Time PHQ-9 Depression Total Score: 5 06/22/20 21 10:07 AM CDT documented as of this encounter Care Teams Electrostatic Painter Relationship Specialty Start Date End Date Sami Liriano DO [address] [place] [phone] PCP - General FAMILY PRACTICE 12/24/19 documented as of this encounter
--- OUTSIDE RECORDS SUMMARY | 2024-09-19 12:22 | XMS_ITS | Encounter Summary ---
Author Organization [facility] Address [facility]. 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 No / Unsure 07/14/2021 9:37 AM CDT documented as of this encounter Progress Notes * Radha Hodgson RN - 07/07/2021 12:59 PM CDT ----- Message from Maria L Bess APRN sent at 07/05/2021 2:50 PM CDT ----- Sleep study shows severe MOR. I would refer to either ENT or pulm, her choice for CPAP management. Called to inform pt of above. LM with my contact information. 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 I called and left her a detailed message with the results and recommendations above. I asked pt to call back and let us know if it is ok to send the referral and whether she had a preference. Pt returned my call and would prefer [facility] pulm. I will ask Cristina to send referral. ARTEMIO Garcia documented in this encounter Plan of Treatment Upcoming Encounters Date Type Department Care Team (Late st Contact Info) Description 10/09/2024 9:30 AM CONSTRUCTION LABORER Office Visit [facility] [phone] Carlos Farris MD [facility] [place] [address] 11/02/2024 10:20 AM CONSTRUCTION LABORER Office Visit [facility] Family & Internal Medicine - [place] [address] [place] [address] Sami Liriano DO [address] [place] [address] documented as of this encounter Visit Diagnoses Not on filedocumented in this encounter Additional Health Concerns Assessment Noted Time PHQ-9 Depression Total Score: 5 06/22/20 21 10:07 AM CDT documented as of this encounter Care Teams Safety Coordinator Relationship Specialty Start Date End Date Sami Liriano DO [address] [place] [address] PCP - General FAMILY PRACTICE 12/24/19 documented as of this encounter
--- OUTSIDE RECORDS SUMMARY | 2024-09-19 12:22 | XMS_ITS | Encounter Summary ---
Author Organization [facility] Address [address] [place] [address]. 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 CH SALES AND SERVICE REPRESENTATIVE documented in this encounter Plan of Treatment Upcoming Encounters Date Type Department Care Team (Late st Contact Info) Description 10/09/2024 9:30 AM BRANCH SALES AND SERVICE REPRESENTATIVE Office Visit [facility] [phone] Carlos Farris MD [facility] [address] [place] [address] 11/02/2024 10:20 AM BRANCH SALES AND SERVICE REPRESENTATIVE Office Visit [facility] Family & Internal Medicine - [address] [phone] Sami Liriano DO [address] [place] [address] documented as of this encounter Procedures Procedure Name Priority Date/Time Associated Diagnosis Comments URINALYSIS WI REFLEX TO CULTURE Routine 07/14/2021 9:51 AM CDT Urine abnormality HEMOGLOBIN, GLYCOSYLATED Routine 07/14/2021 9:40 AM CDT Hyperglycemia BASIC METABOLIC PANEL Routine 07/14/2021 9:40 AM CDT Elevated serum creatinine VENIPUNC ARM DRAW Routine 07/14/2021 9:3 9 AM CDT Hyperglycemia Elevated serum creatinine documented in this encounter Results * URINALYSIS WI REFLEX TO CULTURE (07/14/2021 9:51 AM CDT) COLOR (U) YELLOW 07/14/2021 5:55 PM T [facility] TRANSPARENCY CLEAR CLEAR 07/14/2021 5:55 PM CDT [facility] SPECIFIC GRAVITY (U) 1.015 1.003 - 1.040 07/14/2021 5:55 PM CDT [facility] U PH 6.0 5.0 - 9.0 07/14/2021 5:55 PM CDT [facility] PROTEIN (U) NEGATIVE NEGATIVE 07/14/2021 5:55 PM T [facility] URINE GLUCOSE NEGATIVE NEGATIVE 07/14/2021 5:55 PM T [facility] KETONES MG/DL (U) NEGATIVE NEGATIVE 07/14/2021 5:55 PM T [facility] BILIRUBIN (U) NEGATIVE NEGATIVE 07/14/2021 5:55 PM T [facility] BLOOD (U) NEGATIVE NEGATIVE 07/14/2021 5:55 PM T [facility] UROBILINOGEN 0.2 0.0 - 2.0 EU/DL 07/14/2021 5:55 PM T [facility] NITRITES NEGATIVE NEGATIVE 07/14/2021 5:55 PM T [facility] LEUKOCYTES (U) NEGATIVE NEGATIVE 07/14/2021 5:55 PM CDT [facility] REFLEX URINE CULTURE: CULTURE IS NOT INDICATED 07/14/2021 5:55 PM CDT [facility] RBC/HPF 0-3 0 - 3 /HPF 07/14/2021 5:55 PM CDT [facility] WBC/HPF 0-3 0 - 3 /HPF 07/14/2021 5:55 PM CDT [facility] EPI/HPF 0-3 /HPF 07/14/2021 5:55 PM CDT [facility] BACTERIA (U) NONE SEEN NONE SEEN 07/14/2021 5:55 PM CDT [facility] URINE SPECIMEN OBTAINED BY CLEAN CATCH PROCEDURE / Unknown 07/14/2021 9:51 AM CDT Sami Liriano DO URINE ORDERABLES Final R esult Performing Organization Address [facility] Co de Phone Number [facility] [address] [place] [address], [place] [phone] * (ABNORMAL) HEMOGLOBIN, GLYCOSYLATED (07/14/2021 9:40 AM CDT) HGB A1C 7.1(H) 3.80 - 5.60 % 07/14/2021 5:59 PM CDT [facility] ESTIMATED AVG GLUCOSE 157(H) 74 - 106 MG/DL 07/14/2021 5:59 PM CDT [facility] 07/14/2021 9:40 AM CDT Sami Liriano DO LABORATORY Final Re sult Performing Organization Address [facility] Co de Phone Number [facility] [address] [place] [address], [place] [phone] * (ABNORMAL) BASIC METABOLIC PANEL (07/14/2021 9:40 AM CDT) SODIUM S/P/B 141 136 - 145 MMOL/L 07/14/2021 4:18 PM CDT [facility] POTASSIUM S/P/B 3.4(L) 3.5 - 5.1 MMOL/L 07/14/2021 4:18 PM CDT [facility] CHLORIDE S/P/B 104 98 - 107 MMOL/L 07/14/2021 4:18 PM [facility] CO2 27.2 21 - 32 MMOL/L 07/14/2021 4:18 PM [facility] GLUCOSE 124(H) 70 - 99 MG/DL 07/14/2021 4:18 PM [facility] BUN 36(H) 6 - 24 MG/DL 07/14/2021 4:18 PM [facility] CREATININE S/P/B 1.41(H) 0.55 - 1.02 MG/DL 07/14/2021 4:18 PM [facility] CALCIUM S/P/B 8.8 8.4 - 10.5 MG/DL 07/14/2021 4:18 PM [facility] ANION GAP 9.8 5 - 15 MMOL/L 07/14/2021 4:18 PM [facility] Comment:REFERENCE RANGE NOT ESTABLISHED OSMOLALITY (CALC) 302 MOSM/KG 07/14/2021 4:18 PM [facility] Comment:REFERENCE RANGE NOT ESTABLISHED EGFR NON-AFR. AMER. 38(L) >90 ML/MIN/1 .73 M2 07/14/2021 4:18 PM [facility] EGFR AFR. AMER. 44(L) >90 ML/MIN/1 .73 M2 07/14/2021 4:18 PM [facility] GFR NOTES THE ESTIMATED GFR IS CALCULATED USING THE 2009 CKD-EPI EQUATION. THE FOLLOWING CATEGORIES FOR GRADING RENAL FUNCTION ARE RECOMMENDED BY THE INTERNATIONAL SOCIETY OF NEPHROLOGY (KDIGO 2012 CLINICAL PRACTICE GUIDELINE). 07/14/2021 4:18 PM T [facility] Comment: G1,NORMAL OR HIGH: >89 ml/min/1.73 m2 G2,MILDLY DECREASED: 60-89 ml/min/1.73 m2 G3A,MILDLY TO MODERATELY DECREASED: 45-59 ml/min/1.73 m2 G3B,MODERATELY TO SEVERELY DECREASED: 30-44 ml/min/1.73 m2 G4,SEVERELY DECREASED: 15-29 ml/min/1.73 m2 G5,KIDNEY FAILURE: <15 ml/min/1.73 m2 07/14/2021 9:40 AM CDT Sami Liriano DO LABORATORY Final Re sult -[facility] [address] [place] [address], documented in this encounter Visit Diagnoses Diagnosis Hyperglycemia- Primary Other abnormal glucose Elevated serum creatinine Other nonspecific findings on examination of blood Urine abnormality Other nonspecific finding on examination of urine documented in this encounter Additional Health Concerns Assessment Noted Time PHQ-9 Depression Total Score: 5 06/22/20 21 10:07 AM CDT documented as of this encounter Care Teams Assembler Lay Ups Relationship Specialty Start Date End Date Sami Liriano DO [address] [place] [address] PCP - General FAMILY PRACTICE 12/24/19 documented as of this encounter
--- OUTSIDE RECORDS SUMMARY | 2024-09-19 12:22 | XMS_ITS | Encounter Summary ---
Author Organization [facility] Address [facility] 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 No / Unsure 06/22/2021 9:30 AM CDT documented as of this encounter Plan of Treatment Upcoming Encounters Date Type Department Care Team (Late st Contact Info) Description 10/09/2024 9:30 AM DERMATOLOGY TEACHER Office Visit [facility] [phone] Carlos Farris MD [address] [facility] [address] [place] [address] 11/02/2024 10:20 AM DERMATOLOGY TEACHER Office Visit [facility] Family & Internal Medicine - [address] [phone] Sami Liriano DO [address] [place] [phone] documented as of this encounter Procedures Procedure Name Priority Date/Time Associated Diagnosis Comments VENIPUNC ARM DRAW Routine 06/22/2021 9:4 1 AM CDT Routine general medical examination at a health care facility BASIC METABOLIC PANEL Routine 06/22/2021 9:41 AM CDT Routine general medical examination at a [facility] care facility documented in this encounter Results * (ABNORMAL) BASIC METABOLIC PANEL (06/22/2021 9:41 AM CDT) SODIUM S/P/B 141 136 - 145 MMOL/L 06/22/2021 3:18 PM CDT [facility] POTASSIUM S/P/B 3.6 3.5 - 5.1 MMOL/L 06/22/2021 3:18 PM CDT [facility] CHLORIDE S/P/B 103 98 - 107 MMOL/L 06/22/2021 3:18 PM CDT [facility] CO2 29.3 21 - 32 MMOL/L 06/22/2021 3:18 PM [facility] GLUCOSE 128(H) 70 - 99 MG/DL 06/22/2021 3:18 PM [facility] BUN 25(H) 6 - 24 MG/DL 06/22/2021 3:18 PM [facility] CREATININE S/P/B 1.15(H) 0.55 - 1.02 MG/DL 06/22/2021 3:18 PM [facility] CALCIUM S/P/B 9.6 8.4 - 10.5 MG/DL 06/22/2021 3:18 PM [facility] ANION GAP 8.7 5 - 15 MMOL/L 06/22/2021 3:18 PM [facility] Comment:REFERENCE RANGE NOT ESTABLISHED OSMOLALITY (CALC) 298 MOSM/KG 06/22/2021 3:18 PM [facility] Comment:REFERENCE RANGE NOT ESTABLISHED EGFR NON-AFR. AMER. 49(L) >90 ML/MIN/1 .73 M2 06/22/2021 3:18 PM [facility] EGFR AFR. AMER. 57(L) >90 ML/MIN/1 .73 M2 06/22/2021 3:18 PM [facility] GFR NOTES THE ESTIMATED GFR IS CALCULATED USING THE 2009 CKD-EPI EQUATION. THE FOLLOWING CATEGORIES FOR GRADING RENAL FUNCTION ARE RECOMMENDED BY THE INTERNATIONAL SOCIETY OF NEPHROLOGY (KDIGO 2012 CLINICAL PRACTICE GUIDELINE). 06/22/2021 3:18 PM [facility] Comment: G1,NORMAL OR HIGH: >89 ml/min/1.73 m2 G2,MILDLY DECREASED: 60-89 ml/min/1.73 m2 G3A,MILDLY TO MODERATELY DECREASED: 45-59 ml/min/1.73 m2 G3B,MODERATELY TO SEVERELY DECREASED: 30-44 ml/min/1.73 m2 G4,SEVERELY DECREASED: 15-29 ml/min/1.73 m2 G5,KIDNEY FAILURE: <15 ml/min/1.73 m2 06/22/2021 9:41 AM CDT us Sami Liriano DO LABORATORY Final Re sult [facility] [address] [place] [address], [place] [phone] documented in this encounter Visit Diagnoses Diagnosis Routine general medical examination at a health care facility- Primary documented in this encounter Additional Health Concerns Assessment Noted Time PHQ-9 Depression Total Score: 5 06/22/20 21 10:07 AM CDT documented as of this encounter Care Teams Warp Knitter Relationship Specialty Start Date End Date Sami Liriano DO [address] [place] [address] PCP - General FAMILY PRACTICE 12/24/19 documented as of this encounter
--- OUTSIDE RECORDS SUMMARY | 2024-09-19 12:22 | XMS_ITS | Encounter Summary ---
Author Organization [facility] Address [facility]. 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 Not on [...] st Contact Info) Description 10/09/2024 9:30 AM BLENDING SUPERVISOR Office Visit [facility] [phone] Carlos Farris MD Three [facility] [address] [place] [address] 11/02/2024 10:20 AM BLENDING SUPERVISOR Office Visit [facility] Family & Internal Medicine - [address] [phone] Sami Liriano DO [address] [place] [address] documented as of this encounter Visit Diagnoses Not on filedocumented in this encounter Additional Health Concerns Assessment Noted Time PHQ-9 Depression Total Score: 5 06/22/20 21 10:07 AM CDT documented as of this encounter Care Teams Accordion Maker Relationship Specialty Start Date End Date Sami Liriano DO [address] [place] [address] PCP - General FAMILY PRACTICE 12/24/19 documented as of this encounter
--- OUTSIDE RECORDS SUMMARY | 2024-09-19 12:22 | XMS_ITS | Encounter Summary ---
Author Organization [facility] Address [facility]. [place], [place] [address] [place] [address] Care Team Providers Care Backroom Associate Name Role Phone Sami Liriano Primary Care Provider + Encounter Details Date Type Department Care Team (Latest Contact Info) Description 07/01/2021 Travel Social History Tobacco Use Types Packs/Day [...] on file Legal Sex Female 12:43 PM PATIENT CARE Gender Identity Female 12/18/2021 6:31 AM CDT [...] st Contact Info) Description 10/09/2024 9:30 AM PATIENT CARE Office Visit [facility] [phone] Carlos Farris MD Three [facility] [address] [place] [address] 11/02/2024 10:20 AM PATIENT CARE Office Visit [facility] Family & Internal Medicine - [address] [phone] Sami Liriano DO [address] [place] [address] documented as of this encounter Visit Diagnoses Not on filedocumented in this encounter Additional Health Concerns Assessment Noted Time PHQ-9 Depression Total Score: 5 06/22/20 21 10:07 AM CDT documented as of this encounter Care Teams Backroom Associate Relationship Specialty Start Date End Date Sami Liriano DO [address] [place] [address] PCP - General FAMILY PRACTICE 12/24/19 documented as of this encounter
--- OUTSIDE RECORDS SUMMARY | 2024-09-19 12:22 | XMS_ITS | Encounter Summary ---
Author Organization [facility] Address [facility]. 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 file [...] st Contact Info) Description 10/09/2024 9:30 AM POULTRY AND FISH BUTCHER Office Visit [facility] [phone] Carlos Farris MD Three [facility] [address] [place] [address] 11/02/2024 10:20 AM POULTRY AND FISH BUTCHER Office Visit [facility] Family & Internal Medicine - [address] [phone] Sami Liriano DO [address] [place] [address] documented as of this encounter Visit Diagnoses Not on filedocumented in this encounter Additional Health Concerns Assessment Noted Time PHQ-9 Depression Total Score: 5 06/22/20 21 10:07 AM CDT documented as of this encounter Care Teams Sewing Machine Maintenance Mechanic Relationship Specialty Start Date End Date Sami Liriano DO [address] [place] [address] PCP - General FAMILY PRACTICE 12/24/19 documented as of this encounter
--- OUTSIDE RECORDS SUMMARY | 2024-09-19 12:22 | XMS_ITS | Encounter Summary ---
Author Organization [facility] Address [facility]. [place], [place] [address] [place] [address] Care Team Providers Care Room Service Food Service Attendant Name Role Phone Jaeldarell Sami Nicole AGUIAR Primary Care Provider + Reason for Referral * Imaging (Routine) - Closed Specialty Diagnoses / Procedures Referred By Shereen t Referred To Contact RADIOLOGY Diagnoses Sleep disturbance Edema SOB (shortness of breath) High blood pressure MOR (obstructive sleep apnea) Procedures USV VENOUS REFLUX LOW HAN Erik Bowling MD [address] [address] Phone: tel: fax: Referral ID Status Reason Start Date Expiration Date Visits Re quested Visits Authorized [id number] Closed 06/16/2021 07/17/2022 1 1 Reason for Visit * Imaging (Routine) - Closed Specialty Diagnoses / Procedures Referred By Shereen benton Referred To Contact RADIOLOGY Diagnoses Sleep disturbance Edema SOB (shortness of breath) High blood pressure MOR (obstructive sleep apnea) Procedures USV VENOUS REFLUX LOW HAN Erik Bowling MD 3 [facility] [address] [place] [address] Phone: tel: fax: Referral ID Status Reason Start Date Expiration Date Visits Re quested Visits Authorized [id number] Closed 06/16/2021 07/17/2022 1 1 Encounter Details Date Type Department Care Team (Latest Contact Info) Description 07/17/2021 7:36 AM CDT Hospital Encounter [facility] [address] [facility] [place] [address] Erik Bowling MD 3 [facility] [address] [place] [address] Discharge Disposition: Home or Self [...] on file Legal Sex Female 12:43 PM ANIMAL PHYSIOLOGIST Gender Identity Female 12/18/2021 6:31 AM CDT [...] 03/01/2021 1 documented as of this encounter Plan of Treatment Upcoming Encounters Date Type Department Care Team (Late st Contact Info) Description 10/09/2024 9:30 AM ANIMAL PHYSIOLOGIST Office Visit [facility] [phone] Carlos Farris MD [facility] [address] [place] [address] 11/02/2024 10:20 AM ANIMAL PHYSIOLOGIST Office Visit [facility] Family & Internal Medicine - [place] [address] [place] [phone] Sami Liriano P, DO [address] [place] [address] documented as of this encounter Procedures Procedure Name Priority Date/Time Associated Diagnosis Comments USV VENOUS REFLUX LOW HAN Routine 07/17/2021 8:23 AM CDT Sleep disturbance Edema SOB (shortness of breath) High blood pressure MOR (obstructive sleep apnea) documented in this encounter Results * USV VENOUS REFLUX LOW HAN (07/17/2021 8:23 AM CDT) Anatomical Region Laterality Modality Extremity Vascular Ultraso und 07/17/2021 7:47 AM CDT Narrative 07/17/2021 10:11 AM CDT ?VENOUS DUPLEX IMAGING ?BILATERAL LOWER EXTREMITY ? VASCULAR LAB Pat.Name: ??HAIR SARGENT ?Pat.ID: ?[id number] ? St.Date: ?? 07/17/2021 ?Refer.: ??Sami Liriano ? Exam Time: 7:47:00 AM ? Study Type:KATIE VS Venous Duplex Legs HAN Height: ?59in ?Age: ??1955,66Y ? Sex: ? FEMALE ?Sonogrphr: Eloy Ila, RVS ? Pat. Stat.:Outpatient ? History / Clinical: LE edma; PMH- Obese, HTN, xtob, CKD3, MOR-CPAP, Le edema- on diuretics, prior BLEV @ [facility] 03/07/20 negative Procedures: ??Horan scale, Color Doppler imaging, Doppler Spectral Analysis Race: ?W ? ++++++++++++++++++++++++++++++++++++ SUMMARY: ++++++++++++++++++++++++++++++++++++ The deep veins are patent bilaterally from groin to calf. ?? No reflux > 1 second duration is seen in the deep or superficial veins. ??Reflux measurements obtained with patient standing, tilt table. CONCLUSION: ?? Normal study bilateral lower extremity, with no evidence of deep vein thrombosis. ?? There is no significant reflux detected. ++++++++++++++++++++++++++++++++++++ FINDINGS: ++++++++++++++++++++++++++++++++++++ ++++++++++++++++++++++++++++++++++++ MEASUREMENTS: ++++++++++++++++++++++++++++++++++++ ?REFLUX Right CFV ?? CFV ?0 mm ?CFV ?0 sec Right Mid FV ?? Mid FV ? 0 mm ?Mid FV ? 0 sec Right Pop V ?? Pop V ?0 mm ?Pop V ?0 sec Right SFJ ?? GSV SFJ ?7.2 mm ?GSV SFJ ?0 sec Right Prox Thigh ?? GSV Prox Thigh ?? 4.2 mm ?GSV Prox Thigh ? 0 sec Right Dist Thigh/AK ?? GSV Dist Thigh/ ?? 4.7 mm ? GSV Dist Thigh/ ? 0 sec Right Mid ?? SSV Mid ?4.5 mm ?SSV Mid ?0 sec Right Prox Calf ?? GSV Prox Calf ?4 mm ?GSV Prox Calf ?0 sec Left CFV ?? CFV ?0 mm ?CFV ?0 sec Left Mid FV ?? Mid FV ? 0 mm ?Mid FV ? 0 sec Left Pop V ?? Pop V ?0 mm ?Pop V ?0 sec Left SFJ ?? GSV SFJ ?9.4 mm ?GSV SFJ ?0 sec Left Prox Thigh ?? GSV Prox Thigh ?? 9.6 mm ?GSV Prox Thigh ? 0 sec Left Dist Thigh/AK ?? GSV Dist Thigh/ ?? 3.3 mm ? GSV Dist Thigh/ ? 0 sec Left Prox Calf ?? GSV Prox Calf ?3.1 mm ?GSV Prox Calf ?0 sec Left Mid ?? SSV Mid ?5.8 mm ?SSV Mid ?0 sec ?DOPPLER Right Diameter ??0.42 cm ?Left Diameter ?? 0.96 cm ?? SFJ ?? Right SFJ Diame ??0.72 cm ? Left SFJ Diamet ??0.94 cm ?? Signed 07/17/2021 10:11 AM Crystal Ward M.D. Procedure Note Crystal Ward MD - 07/17/2021 VENOUS DUPLEX IMAGING BILATERAL LOWER EXTREMITY VASCULAR LAB Pat.Name: SHANTI SARGNETILA Romeo Pat.ID: [id number] .Date: 07/17/2021 Refer.MD: Sami Liriano Exam Time: 7:47:00 AM Study Type:KATIE VS Venous Duplex Legs HAN Height: 59in Age: 5 1955,66Y Sex: FEMALE Sonogrphr: Eloy Thorpe, RVKaleigh Pat. Stat.:Outpatient History / Clinical: LE edma; PMH- Obese, HTN, xtob, CKD3, MOR-CPAP, Le edema- on diuretics, prior BLEV @ [facility] 03/07/20 negative Procedures: Horan scale, Color Doppler imaging, Doppler Spectral Analysis Race: W ++++++++++++++++++++++++++++++++++++ SUMMARY: ++++++++++++++++++++++++++++++++++++ The deep veins are patent bilaterally from groin to calf. No reflux > 1 second duration is seen in the deep or superficial veins. Reflux measurements obtained with patient standing, tilt table. CONCLUSION: Normal study bilateral lower extremity, with no evidence of deep vein thrombosis. There is no significant reflux detected. ++++++++++++++++++++++++++++++++++++ FINDINGS: ++++++++++++++++++++++++++++++++++++ ++++++++++++++++++++++++++++++++++++ MEASUREMENTS: ++++++++++++++++++++++++++++++++++++ REFLUX Right CFV CFV 0 mm CFV 0 sec Right Mid FV Mid FV 0 mm Mid FV 0 sec Right Pop V Pop V 0 mm Pop V 0 sec Right SFJ GSV SFJ 7.2 mm GSV SFJ 0 sec Right Prox Thigh GSV Prox Thigh 4.2 mm GSV Prox Thigh 0 sec Right Dist Thigh/AK GSV Dist Thigh/ 4.7 mm GSV Dist Thigh/ 0 sec Right Mid SSV Mid 4.5 mm SSV Mid 0 sec Right Prox Calf GSV Prox Calf 4 mm GSV Prox Calf 0 sec Left CFV CFV 0 mm CFV 0 sec Left Mid FV Mid FV 0 mm Mid FV 0 sec Left Pop V Pop V 0 mm Pop V 0 sec Left SFJ GSV SFJ 9.4 mm GSV SFJ 0 sec Left Prox Thigh GSV Prox Thigh 9.6 mm GSV Prox Thigh 0 sec Left Dist Thigh/AK GSV Dist Thigh/ 3.3 mm GSV Dist Thigh/ 0 sec Left Prox Calf GSV Prox Calf 3.1 mm GSV Prox Calf 0 sec Left Mid SSV Mid 5.8 mm SSV Mid 0 sec DOPPLER Right Diameter 0.42 cm Left Diameter 0.96 cm SFJ Right SFJ Diame 0.72 cm Left SFJ Diamet 0.94 cm Signed 07/17/2021 10:11 AM Crystal Ward M.D. Erik Bowling MD [facility] Final Result documented in this encounter Visit [...] documented as of this encounter Care Teams Room Service Food Service Attendant Relationship Specialty Start Date End Date Sami Liriano DO [address] [place] [address] PCP - General FAMILY PRACTICE 12/24/19 documented as of this encounter
--- OUTSIDE RECORDS SUMMARY | 2024-09-19 12:22 | XMS_ITS | Encounter Summary ---
Author Organization [facility] Address [address] [place] [address]. 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 No / Unsure 06/22/2021 9:30 AM CDT documented as of this encounter Last Filed Vital Signs Vital Sign Reading Time Taken Comments Blood Pressure 132/68 06/22/2021 11:36 AM CDT Pulse 76 06/22/2021 11:36 AM CDT Temperature 36.4 ??C (97.6 ??F) 06/22/2021 1 1:36 AM CDT Respiratory Rate 18 06/22/2021 11:3 6 AM CDT Oxygen Saturation 98% 06/22/2021 11: 36 AM CDT Inhaled Oxygen Concentration - - Weight 113.4 kg (250 lb 1.6 oz) 021 11:36 AM CDT Height 153.7 cm (5' 0.5 ) 06/22/2021 11 :36 AM CDT Body Mass Index 48.04 06/22/2021 11:36 AM CDT documented in this encounter Patient Instructions * Patient Instructions* Chandu Varela RN - 06/22/2021 10:00 AM CDT PERSONALIZED PREVENTION PLAN FOR Jolly Rothlyndon These are your preventive care screenings with due dates. Health Maintenance Topic Date Due ??? Influenza Adult (1) 06/30/2021 ??? Pneumococcal ages 65 years and older (1 of 2 - PPSV23) 06/23/2021 (Originally 10/31/2020) ??? Zoster Vaccines (1 of 2) 06/22/2022 (Originally 2003) ??? COVID-19 Vaccine (1) 06/22/2022 (Originally 1965) ??? DTaP, Tdap and Td Vaccines (2 - Tdap) 10/29/2028 (Originally 06/30/2021) ??? Medicare Wellness Visit 06/23/2022 ??? Mammogram Screening 02/28/2023 ??? Colorectal Cancer Screening Colonoscopy (10 Years) 04/27/2030 ??? DEXA SCAN (GENERAL) Completed ??? MENINGOCOCCAL VACCINE Aged Out Recommended Covered Preventative Services Your PCP and clinical team will review the list below of recommended Medicare Part B Covered Preventative Services and follow up with you on future scheduling of any additional services Based on your responses to the Health Risk Assessment and appointment today, your provider recommends the following: ADVANCE DIRECTIVES The Basics Written by the doctors and editors at [facility] What are advance directives???--??Advance directives are legal documents that allow you to spell out ahead of time what of types medical care you would want if you ever became unable to speak for yourself. These documents can help ensure that you get the care you want even if you have an unexpectedserious illness or accident. The documents can also make things easier for the people who will need to make decisions for you if you ever become unable to make them for yourself. Are there different kinds of advance directives???--??Yes. The most useful kinds of advance directives are: ?? Health care proxy (also called the durable power of ip attorney for health care) - The health care proxy document allows you to choose someone to make medical decisions for you if you become unable to speak for yourself. The benefit of having this document is that it makes your choice of a decision-maker clear to your doctors and family members. When you choose a health care proxy, it is important to talk to the person you choose about the things that you do or don't want. That way your decision-maker knows what to do later on if he or she ever has to speak for you. ?? Living will - A living will is the document that tells health care providers what type of care you want if you become unable to speak for yourself. For instance, a living will allows you to recordin writing whether you would want a feeding tube put in if you had a serious illness or accident. ?? Do not resuscitate/do not intubate order (also called a DNR/DNI) - If you decide you do not wantyour heart restarted if it stops and you do not want a breathing tube put in if you stop breathing,you can ask for a DNR/DNI. This is a form that must be signed by a doctor. It tells all your healthcare providers that you have decided you do not want these treatments. Advance directives work best when they are part of a team effort that includes not only the person making the decisions, but also doctors, emergency health workers, and places like hospitals and nursing homes. The Physician Orders for Life Sustaining Treatment (POLST) is a form for people who already have a serious illness or are very weak and likely to need medical help. The POLST form spells out exactly what care should be given, and not given, based on your choices and wishes. It is signed by your doctor, and you can keep a copy at home to be used in the event of an emergency. A copy is also kept onfile at any hospital or other place where you might get medical care. Not every state has a POLST program. To find out if your state has one, you can go online to www.polst.org. How do I choose a health care proxy???--??Choose someone who: ?? You know and trust ?? Can separate his or her own wishes from your own ?? You know would carry out your wishes if that became necessary ?? Could be easily reached if he or she was needed ?? Could handle it if other family members or loved ones wanted you to get treated differently thanyou would want Some people choose a second person as an alternate proxy, in case their first choice cannot be reached at the time decisions need to be made. Who should have an advance directive???--??Advance directives are a good idea for anyone, but they are especially important if: ?? You are older than 65. ?? You have a serious life-threatening illness, such as advanced cancer, or end- stage heart or liver failure. ?? The person whom you would like as your health care proxy (decision-maker) is not a family memberor legally to you. If that is the case the person you would choose might not be allowed to make decisions for you. Unless there is a health care proxy, the law usually states that a person's closest family member has the right to make decisions for him or her. What kinds of decisions will I need to make???--??Your advance directives can have as much or as little detail as you want. But many people who have advance directives record their wishes about the following treatments: ?? Breathing tubes - If you stop breathing or are having a very hard time breathing, you can get attached to a machine that will help you breathe. For that to happen, you will have to be intubated. That means that a tube will be put down your throat and into your lungs. Then the tube will be connected to a breathing machine. When the tube is in place, you will not be able to talk, at least at first. Plus, you will probably be sedated, meaning that you are on medicines that make you sleep. Sometimes a breathing machine is needed only for a short time. For instance, some people need the breathing machine just while they recover from a lung infection. When deciding about a breathing tube, consider whether you would want it at all, want it only for a short time, or want it no matter what. Also, keep in mind that any time a breathing machine is used, it is hard to know for sure if and when it will be able to be disconnected. ?? Cardiopulmonary resuscitation (CPR) - If your heart stops beating suddenly, doctors might be able to restart it by pumping on your chest, putting in a breathing tube and pushing air into your lungs, giving you an electric shock (called defibrillation ), and/or giving you special medicines. Somepeople recover completely after having their heart restarted. Others have permanent brain damage from a lack of blood flow to the brain; this is most likely in people who have an advanced, serious illness. ?? Feeding tubes - If you become unable to eat, you can have a tube put into your stomach or intestines that can deliver nutrients. A feeding tube can keep a person's body going while he or she healsand gets strong. But it can also keep a person alive for a long time even if there is no chance theperson will recover. Can I change my mind???--??Yes. You can change your mind at any time. If you sign an advance directive and you decide you want a different kind of treatment or you no longer want the health care proxy you chose, all you have to do is tell your doctor or nurse about your new decision. If you want toname a new health care proxy or want to record new wishes, you can draw up new documents. How can I draw up an advance directive???--??The following table lists resources that can help you learn more about making your own advance directives (table 1). All topics are updated as new evidence becomes available and our peer review process is complete. This topic retrieved from [employer] on: Oct 07, 2018. Topic 42432 Version 11.0 table 1: Resources that can help you make advance directives ?? Address Phone number Website [address] Toll-free: [phone]) [facility] [ ] http://assets.[facility].org/external_sites/ caregiving/multimedia/EG_AdvanceDirectives.html Aging with Dignity (Five Wishes form) [address] [place] [address] Toll-free: [phone] [phone] [ ] www.agingwithdignity.org [employer]aringInfo ?? Toll-free: www.caringinfo.org [employer] [address] [place] [address] www.[employer].org EXERCISE As an older adult, regular physical activity is one of the most important things you can do for your health. It can prevent many of the health problems that seem to come with age. It also helps your muscles grow stronger so you can keep doing your day-to-day activities without becoming dependent onothers. Not doing any physical activity can be bad for you, no matter your age or health condition. Keep inmind, some physical activity is better than none at all. Your health benefits will also increase with the more physical activity that you do. If you're 65 years of age or older, are generally fit, and have no limiting health conditions you can follow these guidelines. For Important Health Benefits Older Adults Need at Least: 2 hours and 30 minutes ( 150 minutes) of moderate-intensity aerobic activity (i.e., brisk walking) every week and muscle-strengthening activities on 2 or more days a week that work all major muscle groups (legs, hips, back, abdomen, chest, shoulders, and arms). -or- 1 hour and 15 minutes (75 minutes) of vigorous-intensity aerobic activity (i.e., jogging or running) every week and muscle-strengthening activities on 2 or more days a week that work all major musclegroups (legs, hips, back, abdomen, chest, shoulders, and arms). -or- An equivalent mix of moderate- and vigorous-intensity aerobic activity and muscle-strengthening activities on 2 or more days a week that work all major muscle groups (legs, hips, back, abdomen, chest, shoulders, and arms). For Even Greater Health Benefits Older Adults Should Increase Their Activity to: 5 hours (300 minutes) each week of moderate-intensity aerobic activity and muscle-strengthening activities on 2 or more days a week that work all major muscle groups (legs, hips, back, abdomen, chest, shoulders, and arms). -or- 2 hours and 30 minutes (150 minutes) each week of vigorous-intensity aerobic activity and muscle-strengthening activities on 2 or more days a week that work all major muscle groups (legs, hips, back,abdomen, chest, shoulders, and arms). -or- An equivalent mix of moderate- and vigorous-intensity aerobic activity and muscle-strengthening activities on 2 or more days a week that work all major muscle groups (legs, hips, back, abdomen, chest, shoulders, and arms Aerobic activity - what counts? Aerobic activity or cardio gets you breathing harder and your heart beating faster. From pushing a fruit and vegetable parer, to taking a dance class, to biking to the store - all types of activities count. As long as you're doing them at a moderate or vigorous intensity for at least 10 minutes at a time. Even something as simple as walking is a great way to get the aerobic activity you need, as long as it's at a moderately intense pace. Intensity is how hard your body is working during aerobic activity. How do you know if you're doing moderate or vigorous aerobic activity? On a 10-point scale, where sitting is 0 and working as hard as you can is 10, moderate-intensity aerobic activity is a 5 or 6. It will make you breathe harder and your heart beat faster. You'll also notice that you'll be able to talk, but not sing the words to your favorite song. Vigorous-intensity activity is a 7 or 8 on this scale. Your heart rate will increase quite a bit and you'll be breathing hard enough so that you won't be able to say more than a few words without stopping to catch your breath. You can do moderate- or vigorous-intensity aerobic activity, or a mix of the two each week. Intensity is how hard your body is working during aerobic activity. A rule of thumb is that 1 minute of vigorous-intensity activity is about the same as 2 minutes of moderate-intensity activity. Everyone's fitness level is different. This means that walking may feel like a moderately intense activity to you, but for others, it may feel vigorous. It all depends on you - the shape you're in, what you feel comfortable doing, and your health condition. What's important is that you do physical activities that are right for you and your abilities. Muscle-strengthening activities - what counts? Besides aerobic activity, you need to do things to make your muscles stronger at least 2 days a week. These types of activities will help keep you from losing muscle as you get older. To gain health benefits, muscle-strengthening activities need to be done to the point where it's hard for you to do another repetition without help. A repetition is one complete movement of an activity, like lifting a weight or doing one sit-up. Try to do 8--12 repetitions per activity that count as 1 set. Try to do at least 1 set of muscle-strengthening activities, but to gain even more benefits, do 2 or 3 sets. There are many ways you can strengthen your muscles, whether it's at home or the gym. The activities you choose should work all the major muscle groups of your body (legs, hips, back, chest, abdomen,shoulders, and arms). You may want to try: ???Lifting weights ???Working with resistance bands ???Doing exercises that use your body weight for resistance (push ups, sit ups) ???Heavy gardening (digging, shoveling) ???Yoga Reference: http://www.cdc.gov/physicalactivity/everyone/guidelines/olderadults.html FALL RISK Guidelines to help you prevent falls: There are several steps you can take to decrease fall risk at home. One suggestion is to remove tripping hazards like throw rugs, loose wires, clutter or other objects from the floor. Installing hand-rails for stairs and turning on night lights between the bedroom and bathroom at night are other helpful suggestions. If you have fallen in the bathroom, use of grab bars near the toilet and a shower stool or bench may help prevent a fall in this part of the home. Taking extra time when getting up from a sitting or lying position before starting to walk is especially helpful to those who have dizziness triggered by change in body position. There are also some steps that can be taken to reduce fall risk outdoors. Wearing well-fitting shoes with good traction is important when walking on either the pavement or the lawn. Avoid high heels or shoes with very thick soles, especially if you have peripheral neuropathy. If you have problems with balance or leg pain, using a cane or walker can also be helpful. Finally, be aware of possible tripping hazards outdoors including uneven pavement and slipping hazards like wet ground or pavement. PAIN During your health risk assessment you complained of pain. Pain can be an unpleasant feeling that happens in any part of the body. It can be mild or very bad. You may feel this pain always or it may just come and go. It may be dull, sharp, or throbbing. Pain can last for a long time or a short time. Pain can cause upset stomach and throwing up. When you are in pain you may not feel hungry. You may feel nervous. Pain can be acute or chronic. Acute pain tells you there may be an injury and you need to take careof yourself. Chronic pain lasts for a long period of time. What are the causes? ?? Headache ?? Back problems ?? Arthritis ?? Muscle strain ?? Trauma, such as a blow to the body, fall, motor vehicle accident, or gunshot wound ?? Infection ?? Menstrual pain in women What are the main signs? Pain can be throbbing or shooting. Some people feel pain as dull and others as sharp. It may tingleor burn and shoot down an arm or leg. You may also notice that you are limited when moving a part of your body from pain. Sometimes, pain causes you to have muscle aches or spasms. Other people have headaches or are grouchy when in pain. Some people have loose stools when in pain. Some people have trouble sleeping when in pain. How does the doctor diagnose this health problem? Your doctor will ask you to talk about your pain. Tell the doctor: ?? How your pain feels. Is it dull, sharp, burning, stabbing, or cramping? ?? Where your pain is ?? What causes your pain ?? What makes your pain better or worse Your doctor may ask you to rate your pain. This means you would pick a number or picture that most closely describes your pain. The doctor may ask you to say what number your pain is between 0 and 10. Zero means you have no pain at all and 10 means you have the worst pain ever and you need [facility]. An exam will help your doctor find out where the pain is and what is causing it. Some simple blood tests may be done. This will help your doctor decide if any other tests are needed. How does the doctor treat this health problem? Mild drugs may be ordered to ease your pain. Sometimes, pain is a sign of some other problem in your body. In this case, drugs may not be ordered at all or only mild ones given. To treat mild to moderate pain: ?? Acetaminophen ?? Nonsteroidal anti-inflammatory drugs (NSAIDs) like aspirin or ibuprofen ?? NSAIDs in a cream form can be used on the skin where you feel the pain ?? Muscle relaxers may be used to loosen tight muscles To treat moderate to very bad pain: ?? Weak opioid drugs like codeine ?? Strong opioid drugs like morphine Ice, heat, rest, and elevating your painful body part may be used to ease pain and help with swelling from muscle pain. When Using Ice ?? Place an ice pack or a bag of frozen peas wrapped in a towel over the painful part. Never put ice right on the skin. Do not leave the ice on more than 10 to 15 minutes at a time. When Using Heat ?? Heat may be used later but not right away. Heat can make swelling worse. If your doctor tells you to use heat, put a heating pad on your painful part for no more than 20 minutes at a time. Never go to sleep with a heating pad on as this can cause garcia. Your doctor may suggest other types of pain control to help you. Some of these are massage, acupuncture, ocular care technician, and relaxation. What drugs may be needed? The doctor may order drugs to: ?? Help with pain and swelling ?? Relax tight muscles Take your drugs as ordered by your doctor. Some of these drugs can be habit forming and may cause side effects. What can be done to prevent this health problem? ?? The best thing you can do is talk to your doctor about any pain you have. Your doctor can help you make a plan to lower your pain. ?? Some causes of pain get better by staying active and working out. Your doctor may send you to a physical therapist to help you work on strength exercises and stretching. DENTAL CARE We recommend that you call your dentist of choice for an appointment to address your dental problems . Why is dental care important? There may be an even greater need to care for your teeth as you get older for the following reasons: ?? As you age, your mouth may make less saliva, which means that some of its natural cleansing action may be lost and it may become very acidic, causing more decay. ?? Medicines can also cause the mouth to be sawdust drier. ?? The gums shrink and expose new areas of teeth to possible infection or decay. ?? Dentures may not fit as well because of changes in the gums and the jawbones. ?? The risk of oral cancer is higher. Brushing Teeth can last a lifetime if they are looked after. The most effective thing you can do is brushingyour teeth. Effort them in the morning and again before going to bed at night. Use a soft brush and get a new brush every 6 months. Pay attention to the gum line when you brush. Also brushing the roofof the mouth and the tongue gently will help remove germs and prevent bad breath. Brushing after each meal is best. If you can only brush once a day, it is best to do it at bedtime. Electric toothbrushes can be very helpful if you have arthritis. Ask your dentist or dental hygienist to show you theproper way to brush your teeth. Flossing Flossing will remove germs and food particles from between the teeth and along the gum line where brushing doesn't always reach. Insert the floss between the teeth, using a gentle sawing motion. Movethe floss up and down the side of each tooth. Always use a new section of floss when you put it between the next pair of teeth. Toothpaste and mouthwash Use a toothpaste that has fluoride and is recommended by the [place] [employer]. Tartar-control toothpaste may be helpful. Rinsing with an alcohol- free antibacterial mouthwash can help reduce plaque. Regular dental checkups Yearly dental checkups are recommended, even if you have full dentures. During your checkup, your dentist will remove any plaque and check your teeth for cavities. Your dentist will also check your gums for infection or inflammation and the rest of your mouth for signs of cancer. If you have red or white spots or other sores in the mouth that do not go away within 2 weeks, see your dentist. Mouth sores that do not go away can be an early sign of oral cancer. Early detection of mouth cancer allows the best chance for survival. HEALTH STATUS Your Health Risk Assessment indicates you are feel you are not in good health. A healthy lifestyle helps keep the body fit and the mind alert. It helps protect you from disease, helps you fight disease, and helps prevent chronic disease (disease that doesn't go away) from getting worse. This is important as you get older and begin to notice twinges in muscles and joints and a decline in the strength and stamina you once took for granted. A healthy lifestyle includes good healthcare, good nutrition, weight control, recreation, and regular exercise. Avoid harmful substances and do what you can to keep safe. Another part of a healthy lifestyle is stay mentally active and socially involved. Good healthcare ?? Have a physical checkup every year. ?? If you have new symptoms, let us know right away. Don't wait until the next checkup. ?? Take medicines exactly as prescribed and keep your medicines in a safe place. Tell us if your medicine causes problems. Healthy diet and weight control ?? Eat 3 or 4 small, nutritious, low-fat, high-fiber meals a day. Include a variety of fruits, vegetables, and whole-grain foods. ?? Make sure you get enough calcium in your diet. Calcium, vitamin D, and exercise help prevent osteoporosis (bone thinning). ?? If you live alone, try eating with others when you can. That way you get a good meal and have company while you eat it. ?? Try to keep a healthy weight. If you eat more calories than your body uses for energy, it will be stored as fat and you ?? will gain weight. Recreation Recreation is not limited to sports and team events. It includes any activity that provides relaxation, interest, enjoyment, and exercise. Recreation provides an outlet for physical, mental, and social energy. It can give a sense of worth and achievement. It can help you stay healthy. Mental exercise and social involvement Mental and emotional health is as important as physical health. Keep in touch with friends and family. Stay as active as possible. Continue to learn and challenge yourself. Things you can do to stay mentally active are: ?? Learn something new, like a foreign language or musical instrument. ?? Play SCRABBLE or do crossword puzzles. If you cannot find people to play these games with you athome, you can play them with others on your computer through the Internet. ?? Join a games club--anything from card games to chess or checkers or lawn bowling. ?? Start a new hobby. ?? Go back to school. ?? Volunteer. ?? Read. ?? Keep up with world events. LIFE SITUATION Here is a list of local support services that may be able to help: [facility] Senior Helpline. 4 [phone] Caregiver Hotline [phone] [employer] [phone] SEAT BELT SAFETY Your Health Risk Assessment indicates you do not always wear your seat belt. Statistics show that seat belts save lives. Here are the top five reasons why wearing a safety belt can save your life. ?? Passengers in a vehicle who are not wearing a seat belt can become projectiles during an accident. Unbuckled passengers can very easily be ejected through the front, rear or side windows, resulting in . ?? Passengers in the rear seat of an automobile who use both lap and should safety belts are 44% more likely to survive in crash. The percentage increases to 73% for rear seat passengers in Vans or SUV vehicles. ?? [facility] residents every day in vehicle accidents. Over 75% of all automobile accidents reported across the [facility] resulted in a fatality or serious bodily harm. ?? Trucks are not immune. Each year there are thousands of fatalities of drivers of pickup trucks. Of those reported fatalities, more than 60% were not wearing a seat belt device. ?? Wearing a seat belt prevents passenger ejection during a severe accident that involves a rollover. The chances of surviving this type of accident increases 45% when wearing a proper safety restraint device. In pickup trucks, that number increases to 60%. documented in this encounter Progress Notes * Sami Liriano DO - 06/22/2021 10:00 AM CDT Medicare Annual Wellness Visit Chief Complaint: Jolly is an 66-year-old female here for an annual wellness visit. Patient Care Team: Sami Liriano DO as PCP - General (FAMILY PRACTICE) HEALTH RISK ASSESSMENT A Checklist for Medicare Wellness Annual Visit During the past 4 weeks, how much have you been bothered by emotional problems such as feeling anxious, depressed, irritable, sad or downhearted and blue?: Moderately During the past 4 weeks, has your physical and emotional health limited your social activities withfamily friends, neighbors or groups?: Moderately During the past 4 weeks, how much bodily pain have you generally had?: Mild pain During the past 4 weeks, was someone able to help you if you needed and wanted help? : Yes, as muchas I wanted During the past 4 weeks, what was the hardest physical activity you could do for atleast 2 minutes?: Moderate Can you get places out of walking distance without help?: Yes Can you shop for groceries or clothes without help : Yes Can you prepare your own meals?: Yes Can you do your own housework without help?: Yes Can you handle your own money without help?: Yes Do you need help eating, bathing, dressing, or getting around your home?: No During the past 4 weeks, how would you rate your general health?: Fair How have things been going for you during the past 4 weeks?: Good and bad Are you having difficulties driving your car? : No Do you always fasten your seatbeat when you are in a car?: No How often during the past 4 weeks have you been bothered by any of the following problems? Fall or dizzy when standing up : Never Sexual problems: Never Trouble eating well: Never Teeth or dentures: Often(working on getting dentures now) Problems using the telephone: Never Tired or fatigued: Seldom Are you a smoker?: No During the past 4 weeks, how many drinks of wine, beer or other alcoholic bevearges did you have?: 1 drink or less per week Do you exercise for about 20 minutes 3 or more days a week?: No, I usually do not exercise this much Have you been given any information to help you with the following: Hazards in your house that might hurt you?: Yes Keeping track of your medications?: Yes How often do you have trouble taking medicines the way you have been told to take them?: I always take them as prescribed How confident are you that you can control and manage most of your health problems?: Very confident FALL RISK Fall Risk One or more falls in the last year:: No Feels unsteady when walking:: No Worried about falling:: No SLUMS SLUMS Review 06/22/2021 SLUMS #1: Day 1 SLUMS #2: Year 1 SLUMS #3: State 1 SLUMS #4: Memory directive 0 SLUMS #5a: Money spent 1 SLUMS #5b: Money left 2 SLUMS #6: Animals 3 SLUMS #7: Object recall 3 SLUMS #8a: Numbers: 87 0 SLUMS #8b: Numbers: 649 1 SLUMS #8c: Numbers: 8537 1 SLUMS #9: Clock 4 SLUMS #10a: [place] 1 SLUMS #10b: Size 1 SLUMS #11: Story 0 SLUMS #11a: Female's Name 2 SLUMS #11b: Back to work 0 SLUMS #11c: Work type 2 SLUMS #11d: State 2 Calculated SLUMS Score 26 Scoring. HIGH SCHOOL EDUCATION: 27-30=Normal, 21-26= MNDC*, 1-20=Dementia. LESS THAN HIGH SCHOOL EDUCATION: 25-30=Normal, 20=24=MNCD*, 1-19=Dementia. * Mild Neurocognitive Disorder PHQ2/PHQ9 Over the last two weeks, how often have you been bothered by any of the following problems? 10/29/2019 12/07/2020 12/15/2020 06/22/2021 LITTLE INTEREST OR PLEASURE IN DOING THINGS 0-Not at All 1-Several Days 0-Not at All 0-Not at All FEELING DOWN, DEPRESSSED,OR HOPELESS 0-Not at All 2-More than half the days 2- More than half the days 1-Several Days PHQ2 DEPRESSION TOTAL SCORE 0 3 2 1 TROUBLE FALLING OR STAYING ASLEEP OR SLEEPING TOO MUCH 0-Not at All 0-Not at All 0-Not at All 1-Several Days FEELING TIRED OR HAVING LITTLE ENERGY 0-Not at All 3-Nearly every day 3-Nearly every day 1-Several Days POOR APPETITE OR OVEREATING 0-Not at All 3-Nearly every day 3-Nearly every day 1-Several Days FEELING BAD ABOUT YOURSELF 0-Not at All 2-More than half the days 2-More than half the days 1-Several Days TROUBLE CONCENTRATING ON THINGS 0-Not at All 3-Nearly every day 2-More than half the days 0-Not at All MOVING OR SPEAKING SO SLOWLY THAT OTHER PEOPLE COULD HAVE NOTICED 0-Not at All 1-Several Days 0-Notat All 0-Not at All THOUGHTS THAT YOU WOULD BE BETTER OFF 0-Not at All 1-Several Days 0-Not at All 0-Not at All DEPRESSION SCREENING TOTAL SCORE 0 16 12 5 IF YOU CHECKED OFF ANY PROBLEMS Not difficult at all Very difficult Not difficult at all Somewhat difficult The 10-year ASCVD risk score (Austin BARAKAT Jr., et al., 2013) is: 12.6% Values used to calculate the score: Age: 66 years Sex: Female Is Non- : No Diabetic: No Tobacco smoker: No Systolic Blood Pressure: 136 mmHg Is BP treated: Yes HDL Cholesterol: 47 MG/DL Total Cholesterol: 227 MG/DL HISTORY Past Medical History: Diagnosis Date ??? Arthritis ??? Arthritis of left knee 11/08/2019 ??? Depression ??? GERD (gastroesophageal reflux disease) ??? Hypertension ??? Overactive bladder Past Surgical History: Procedure Laterality Date ??? ANKLE SURGERY left ??? SECTION ??? COLONOSCOPY N/A 04/27/2020 COLONOSCOPY WITH BIOPSY X 3 performed by Joel Keenan MD at [facility] OR ??? EGD ??? HERNIA REPAIR [...] Not on file Occupational History ??? 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 Smoking status: Former Smoker Packs/day: 1.00 Years: 12.00 Pack years: 12.00 Types: Cigarettes Quit date: 1976 Years since quittin.7 ??? Smokeless tobacco: Never Used Substance Use Topics ??? Alcohol use: Yes Comment: 2 cocktails on some Sundays Current Outpatient Medications Medication Sig Dispense Refill ??? acetaminophen 325 MG tablet Take 325 mg by mouth. Take 2 in the am and 2 tabs in the pm and 1 PRN ??? albuterol sulfate HFA 108 (90 Base) MCG/ACT inhaler Inhale 2 puffs into the lungs every 4 (four) hours as needed. ??? ATORVASTATIN 10 MG tablet TAKE 1 TABLET BY MOUTH EVERYDAY AT BEDTIME 90 tablet 1 ??? CHLORTHALIDONE 25 MG tablet TAKE 1 TABLET BY MOUTH EVERY DAY (Patient taking differently: 2 (two) times a day. ) 90 tablet 1 ??? escitalopram 20 MG tablet Take 20 mg by mouth daily. ??? furosemide 20 MG tablet Take 3 tablets (60 mg total) by mouth daily. 180 tablet 3 ??? LISINOPRIL 40 MG tablet TAKE 1 [...] No current facility-administered medications for this visit. EXAM There were no vitals filed for this visit. Patient denies any problems with hearing. ASSESSMENT AND PLAN The patient's current medical problems were reviewed. The following health maintenance schedule was reviewed with the patient and provided in printed form in the after visit summary: Health Maintenance Topic Date Due ??? Influenza Adult (1) 06/30/2021 ??? Pneumococcal ages 65 years and older (1 of 2 - PPSV23) 06/23/2021 (Originally 10/31/2020) ??? Zoster Vaccines (1 of 2) 06/22/2022 (Originally 2003) ??? COVID-19 Vaccine (1) 06/22/2022 (Originally 1965) ??? DTaP, Tdap and Td Vaccines (2 - Tdap) 10/29/2028 (Originally 06/30/2021) ??? Medicare Wellness Visit 06/23/2022 ??? Mammogram Screening 02/28/2023 ??? Colorectal Cancer Screening Colonoscopy (10 Years) 04/27/2030 ??? DEXA SCAN (GENERAL) Completed ??? MENINGOCOCCAL VACCINE Aged Out The following list of Medicare Part B Covered Preventative Services and Identified Health Risks were discussed with the patient and will be reviewed with the patient???s PCP / care team for further follow up and scheduling. Based on Jolly's responses to the Health Risk Assessment, we disscussed the following risks. ADVANCE DIRECTIVE The patient was counseled and encouraged to create an Advance Directive. This will be further evaluated and addressed at a follow up visit. EXERCISE She is at risk for lack of exercise and has been provided with information to increase physical activity for the benefit of her well-being. FALL RISK She is at risk for falling and has been provided with information to reduce the risk of falling at home as well as outside the home. PAIN The patient was provided with information and appropriate referrals to address her pain problem. TEETH CONDITION The patient was given suggestions to contact her dentist. She was provided with information on recommended dental care and hygiene. UNSATISFACTORY HEALTH STATUS The patient was provided with suggestions to help her develop a healthy lifestyle. Specific health concerns will be addressed in detail at subsequent appointments. LIFE SITUATION The patient was provided with a directory of local support agencies where she can obtain assistance. In addition, she was offered councling. Patient stated she will call this office back if she would like to see someone. WEARING SEATBELT The patient reports that she does not use seatbelts regularly. She was counseled and provided with information regarding the importance of seatbelts. I reviewed all the information above with the patient and made screening recommendations based on my findings. CHANDU VARELA RN I reviewed the pateint's history, vitals from today, answers to the assessment and the services recommended by CHANDU VARELA RN. I agree with the findings and recommendations. Sami Liriano DO documented in this encounter Plan of Treatment Upcoming Encounters Date Type Department Care Team (Late st Contact Info) Description 10/09/2024 9:30 AM CAR SUPPLIER Office Visit [facility] [phone] Carlos Farris MD [address] [place] [address] 11/02/2024 10:20 AM CAR SUPPLIER Office Visit [facility] - [address] [id number] Sami Liriano DO [address] [place] [id number] documented as of this encounter Visit Diagnoses Diagnosis Routine general medical examination at a health care facility- Primary documented in this encounter Additional Health Concerns Assessment Noted Time PHQ-9 Depression Total Score: 5 06/22/20 21 10:07 AM CDT documented as of this encounter Care Teams Information Technology Technician Relationship Specialty Start Date End Date Sami Liriano DO [address] [place] [id number] PCP - General FAMILY PRACTICE 12/24/19 documented as of this encounter
--- OUTSIDE RECORDS SUMMARY | 2024-09-19 12:22 | XMS_ITS | Encounter Summary ---
Author Organization [facility] Address Formerly [facility] [place], [place] [id number] [place] [id number] Care Team Providers Care Labor Representative Name Role Phone RmoeofroylanSami lozoya Nicole AGUIAR Primary Care Provider + Reason for Referral * Procedure (Routine) - Closed Specialty Diagnoses / Procedures Referred By Shereen t Referred To Contact Diagnoses Edema SOB (shortness of breath) High blood pressure GERD (gastroesophageal reflux disease) Essential hypertension Procedures Stress test only, exercise [facility] [place] [address] Phone: tel: Referral ID Status Reason Start Date Expiration Date Visits Re quested Visits Authorized [id number] Closed 07/17/2021 08/17/2022 1 1 * Imaging (Routine) - Closed Specialty Diagnoses / Procedures Referred By Shereen benton Referred To Contact RADIOLOGY Diagnoses Sleep disturbance Edema SOB (shortness of breath) High blood pressure MOR (obstructive sleep apnea) Procedures NM EXER NUC STRESS TEST 2DAY NM EXER NUC STRESS TEST 1DAY Erik Bowling MD 3 [facility] [address] [place] [address] Phone: tel: fax: Referral ID Status Reason Start Date Expiration Date Visits Re quested Visits Authorized [id number] Closed 06/16/2021 07/17/2022 2 2 Reason for Visit * Imaging (Routine) - Closed Specialty Diagnoses / Procedures Referred By Shereen t Referred To Contact RADIOLOGY Diagnoses Sleep disturbance Edema SOB (shortness of breath) High blood pressure MOR (obstructive sleep apnea) Procedures USE ECHOCARDIOGRAM W CON USE ECHOCARDIOGRAM Erik Bowling MD 3 [facility] [address] [place] [id number] Phone: tel: fax: Referral ID Status Reason Start Date Expiration Date Visits Re quested Visits Authorized [id number] Closed 06/16/2021 07/17/2022 1 1 Encounter Details Date Type Department Care Team (Latest Contact Info) Description 07/17/2021 7:37 AM CDT - 07/17/2021 11:59 PM CDT Hospital Encounter [facility] [address] [facility] [place] [address] Erik Bowling MD [address] [address] Discharge Disposition: Home or Self Care [...] on file Legal Sex Female 12:43 PM KELP GATHERER Gender Identity Female 12/18/2021 6:31 AM CDT Sexual Orientation Straight 01/15/2022 6: 11 AM CDT 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 Not on file [...] st Contact Info) Description 10/09/2024 9:30 AM KELP GATHERER Office Visit [facility] [phone] Carlos Farris MD [address] [facility] [address] [place] [address] 11/02/2024 10:20 AM KELP GATHERER Office Visit [facility] - [address] [phone] Sami Liriano DO [address] [place] [address] documented as of this encounter Procedures Procedure Name Priority Date/Time Associated Diagnosis Comments NM EXER NUC STRESS TEST 2DAY Routine 07/17/2021 12:39 PM CDT Sleep disturbance Edema SOB (shortness of breath) High blood pressure MOR (obstructive sleep apnea) USE ECHOCARDIOGRAM W CON Routine 07/17/2021 10:11 AM CDT Sleep disturbance Edema SOB (shortness of breath) High blood pressure MOR (obstructive sleep apnea) STRESS TEST ONLY, EXERCISE Routine 07/17/2021 7:40 AM CDT Edema SOB (shortness of breath) High blood pressure GERD (gastroesophageal reflux disease) Essential hypertension documented in this encounter Results * NM EXER NUC STRESS TEST 2DAY (07/17/2021 12:39 PM CDT) Anatomical Region Laterality Modality Cardiac Nuclear Medicine 07/17/2021 10:4 9 AM CDT Narrative 07/17/2021 12:42 PM CDT ? Myocardial Perfusion Imaging ? Pat.Name: ??HAIR SARGENT ?Pat.ID: ?[id number] ? St.Date: ?? 07/17/2021 ?Refer.MD: ??Heri ? Exam Time: 10:49:00 AM ? Study Type:KATIE NC HT MUSCLE IMAGE SPECT MULTI Height: ?60in ?Weight: ?250lb ? BSA: ? 2.05 m2 ?Age: ??1955,66Y ? Sex: ? FEMALE ?Sonogrphr: Krystyna Merrill, PATENT COUNSEL ? Pat. Stat.:Outpatient ? Reason for Study: DOT clearance ? History / Clinical: Hypertension, GERD, Sleep Apnea, Renal Insufficiency Procedures: ??Nuclear Stress Test with Lexiscan Race: ?W ? Surgery: ?? Echocardiogram ? ++++++++++++++++++++++++++++++++++++ SUMMARY: ++++++++++++++++++++++++++++++++++++ Stress conclusion: 1. ? Clinically negative. 2. ? Electrocardiographically negative treadmill test for ischemia. 3. ? Fair exercise capacity. ?? 4. ? Campo Treadmill Score is not applicable, which indicates indeterminate risk. 5. ? Blood pressure response was normal. 6. ? Scintigraphic images to follow. 7. As patient complained of shortness of breath, treadmill speed was lowered , lexican ??injected. Then treadmill stopped due to dyspnea,weakness. Perfusion conclusion: 1. ??Good study quality. ??No motion correction was applied to images. Breast attenuation is noted. ??Prone imaging was performed. 2. ??Normal myocardial perfusion SPECT imaging. Stress images only . 3. ??Normal wall motion with an ejection fraction of 76%. 4. ??Stress test with myocardial perfusion imaging shows overall low risk for a cardiac event. ++++++++++++++++++++++++++++++++++++ FINDINGS: ++++++++++++++++++++++++++++++++++++ Protocol: Lexiscan 0.4mg was given as a rapid injection IV over a ?period ??of 10 seconds with the radiopharmaceutical injected ?at ??20 seconds. The images were processed using the standard ?SPECT ??technique. ??A gated study was performed on the stress ?images. Impression: SPECT images demonstrate normal perfusion of normal ?intensity. Heart Size: The left ventricle is normal. The end systolic volume is ?17ml. ??The end diastolic volume is 72ml. Transient Ischemic Dilatation: The TID is not appplicable.. ++++++++++++++++++++++++++++++++++++ STRESS: ++++++++++++++++++++++++++++++++++++ Baseline Vital Signs: ?Intervention ??Regadenoson with low level exercise ECG ?Normal sinus rhythm ? Peak Dose ??0.4 mg HR ? 62 ?Atropine 0 Rest BP ?133/74 ?Duration ?? 04:00 Stress Test Results: Max. HR ?104 ? Pred. Max. Heart Rate (100%) 152 ?? % Target: ??68 % ? Max BP ? 150/80 ?O2 Sat ? 100 % Max RPP ?[address]69 ? Symptoms and Complications: Terminated Protocol completed Symptoms ?? Shortness of breath, Dizziness, Leg fatigue, Nausea Complications None Other ?Patient was scheduled for a treadmill test but was unable to reach target heartrate, therefore test was switched to Lexiscan. Stress ECG Interp No significant changes Signed 07/17/2021 12:42 PM Erik Bowling M.D. Procedure Note Erik Bowling MD - 07/17/2021 Myocardial Perfusion Imaging Pat.Name: DAYAN HAIR L Pat.ID: [id number] St.Date: 07/17/2021 Refer.: Heri Exam Time: 10:49:00 AM Study Type:KATIE NC HT MUSCLE IMAGE SPECT MULTI Height: 60in Weight: 250lb BSA: 2.05 m2 Age: 5 1955,66Y Sex: FEMALE Sonogrphr: MARK Overton Pat. Stat.:Outpatient Reason for Study: DOT clearance History / Clinical: Hypertension, GERD, Sleep Apnea, Renal Insufficiency Procedures: Nuclear Stress Test with Lexiscan Race: W Surgery: Echocardiogram ++++++++++++++++++++++++++++++++++++ SUMMARY: ++++++++++++++++++++++++++++++++++++ Stress conclusion: 1. Clinically negative. 2. Electrocardiographically [...] overall low risk for a cardiac event. ++++++++++++++++++++++++++++++++++++ FINDINGS: ++++++++++++++++++++++++++++++++++++ Protocol: Lexiscan 0.4mg was given as a rapid injection IV over a period of 10 seconds with the radiopharmaceutical injected at 20 seconds. The images were processed using the standard SPECT technique. A gated study was performed on the stress images. Impression: SPECT images demonstrate normal perfusion of normal intensity. Heart Size: The left ventricle is normal. The end systolic volume is 17ml. The end diastolic volume is 72ml. Transient Ischemic Dilatation: The TID is not appplicable.. ++++++++++++++++++++++++++++++++++++ STRESS: ++++++++++++++++++++++++++++++++++++ Baseline Vital Signs: Intervention Regadenoson with low level exercise ECG Normal sinus rhythm Peak Dose 0.4 mg HR 62 Atropine 0 Rest BP 133/74 Duration 04:00 Stress Test Results: Max. HR 104 Pred. Max. Heart Rate (100%) 152 % Target: 68 % Max BP 150/80 O2 Sat 100 % Max RPP [id number] Symptoms and Complications: Terminated Protocol completed Symptoms Shortness of breath, Dizziness, Leg fatigue, Nausea Complications None Other Patient was scheduled for a treadmill test but was unable to reach target heartrate, therefore test was switched to Lexiscan. Stress ECG Interp No significant changes Signed 07/17/2021 12:42 PM Erik Bowling M.D. us Erik Bowling MD NUC MED Final Result * USE ECHOCARDIOGRAM W CON (07/17/2021 10:11 AM CDT) Anatomical Region Laterality Modality NA Echocardiogram 07/17/2021 9:18 AM CDT Narrative 07/17/2021 12:47 PM CDT ?Echocardiography Report Pat.Name: ??DAYAN, HAIR L ?Pat.ID: ?[id number] ? St.Date: ?? 07/17/2021 ? Refer.: ??[id number] RENATE Carrera ? EWDPROV ?EWDPROV Exam Time: 9:18:00 AM ? Study Type:ECHO WITH CARDIAC DOPPLER COMP Height: ?60in ?Weight: ?249.48lb ? BSA: ? 2.05 m2 ?Age: ??1955,66Y ? Sex: ? FEMALE ?BP: ?104/40 ? HR: ?51 bpm ?Sonogrphr: Susan Fragoso RDCS, RCS Pat. Stat.:Outpatient ? Reason for Study: Shortness of breath History / Clinical: LE edma; PMH- Obese, HTN, xtob, CKD3, MOR-CPAP, Le edema- on diuretics, prior BLEV @ [facility] 03/07/20 negative Procedures: ??2D, M-mode, Doppler, Color Flow, Definity was used to enhance endocardial definition., The study quality is technically difficult. Race: ?W ? ++++++++++++++++++++++++++++++++++++ SUMMARY: ++++++++++++++++++++++++++++++++++++ The left ventricular size is normal. Estimated [...] pulmonic regurgitation. A trace of tricuspid regurgitation. ++++++++++++++++++++++++++++++++++++ FINDINGS: ++++++++++++++++++++++++++++++++++++ LV: ? The left ventricular size is normal. Estimated left ?ventricular ??ejection fraction is 65-70%. Mild concentric ?left ??ventricular hypertrophy. Left ventricular diastolic ?function ??is normal. WM: ? Wall motion appears normal in all segments. LVOT: ? The left ventricular outflow tract size is normal. RV: ? The right ventricular size is normal. Right ventricular ?systolic ??function is normal. IVS: ?No evidence of ventricular septal defect. LA: ? The left atrial size is mildly enlarged. The left atrial ?volume ??is normal ( less than 34 ml/M2). RA: ? Right atrial size is normal. IAS: ?Atrial septum appears intact. MIGUEL: ? No evidence of pericardial effusion. Prominent pericardial ?fat ??pad visualized. AO: ? Normal aortic root. PA: ? Estimated right atrial pressure of 3 mmHg. Unable to ?reliably ??quantitate pulmonary systolic pressure. SVn: ?Systemic veins are normal. AV: ? The aortic valve is trileaflet. No evidence of aortic valve ?stenosis. ??No evidence of aortic valve regurgitation. MV: ? Mild mitral regurgitation. No evidence of mitral stenosis. PV: ? No evidence of pulmonic valve stenosis. Mild pulmonic ?regurgitation. TV: ? A trace of tricuspid regurgitation. No evidence of tricuspid ?valve ??stenosis. ++++++++++++++++++++++++++++++++++++ MEASUREMENTS: ++++++++++++++++++++++++++++++++++++ ?DOPPLER LVOT ?? LVOTpkPG ?5.23 mmHg ?LVOTmnPG ?3.67 mmHg LVOTpkVel ?114 cm/s (70-110)* LVOT CO ? 5.81 l/min LVOT TVI ?30.8 cm ? MV Forward Flow MV DeTm ?262 ms ?MV pkE ?95.9 cm/s (60-130) MVA P1/2t ?2.9 cm2 ??(4-6)* ?? MV pkA ? 109 cm/s MV P1/2t ?75.9 ms ?? (30-60)* MV SV ?179 ml ?? MV E/A ? 0.882 ? PV Regurg Flow PV pkVel ?95.8 cm/s ? TV Forward Flow TV pkE ?53.1 cm/s ? Lat E' ?? Lat e ? 11.2 cm/s ? Lat E/E' ?? Lat E/e ? 8.59 ? Med E' ?? Med e ? 13.7 cm/s ? Med E/E' ?? Med E/e ? 7.01 ? Left Ventricle ?? LV IVRT ? 95.3 ms ?Composite heart ?52 bpm Left Ventricula ?? 114 mmHg ? Mitral Annulus ?? PG mean ?0.428 mmHg ?VTI ?0.189 m ?? Mitral Valve ?? Decel Gaston ?388 cm/s2 ? Regurg Frac ? 38.3 % ?? HR ?53 bpm ? Mitral Valve A ?? 1.13 ? MV Regurgitant Flow Length ?0.33 cm ?Volume ?68.6 ml ?? Pulmonic Valve ?? AC ?99.5 ms ?Peak Velocity ?132 cm/s PG pk ? 6.97 mmHg ? PV Regurgitant Flow Peak Gradient ( ??3.67 mmHg ? Tricuspid Valve ?? TV Free Wall Sa ??10.9 cm/s ? HR ?56 bpm TV A pk Dilma ? 39.4 cm/s ?2D Left Ventricle ?? LV CI ? 1.66 l/min/m2 ?LV vol d MOD A2 ??4.82 cm ?? LVIDd ? 5.11 cm ?? (4.3-5.1)* LV vol d MOD A2 ??4.79 cm ?? LVIDs ? 3.68 cm ?? (2-4) ?LV vol d MOD A4 ??2.62 cm ?? LV%fs ? 27.9 % ?(25-46) ??LV vol d MOD A4 ??3.76 cm ?? LV CI ? 2.18 l/min/m2 ?LV vol d MOD A4 ?? 4.6 cm ?? LV CI ? 1.44 l/min/m2 ?LV vol d MOD A4 ??4.78 cm ?? LV CO ? 4.46 l/min ? LV vol d MOD A4 ??4.72 cm ?? LV CO ? 2.96 l/min ? LV vol d MOD A4 ??4.54 cm ?? LV CO BP ?3.74 l/min ? LV vol d MOD A4 ??4.12 cm ?? LV SV ? 99.2 ml ?LV vol d MOD A4 ??3.55 cm ?? LV SV ? 68.8 ml ?LV vol d MOD A4 ??3.01 cm ?? LV SV BP ?85 ml ?LV vol d MOD A4 ??2.17 cm ?? IVS %th ? 40.2 % ? LV vol d MOD A4 ??1.23 cm ?? IVSs ?1.53 cm ?LV vol d MOD A4 0.421 cm ?? Left Ventricle ?? 8.52 cm ? LV vol d MOD A4 ? 4 cm ?? Left Ventricle ?8.9 cm ? LV vol d MOD A4 ??4.24 cm ?? LVPW%th ? 56.7 % ? LV vol d MOD A4 ??4.48 cm ?? LVPWs ?1.6 cm ?LV vol d MOD A4 ??4.51 cm ?? LV Semi-major A ??3.76 cm ? LV vol d MOD A4 ??4.51 cm ?? Left Ventricle ?7.3 cm ? LV vol d MOD A4 ??4.51 cm ?? Left Ventricle ?? 7.12 cm ? LV vol d MOD A4 ??4.45 cm ?? Left Ventricle ?7.3 cm ? LV vol d MOD A4 ??4.57 cm ?? LV Trunc Semi-m ??5.14 cm ? LV vol s MOD A2 ??2.17 cm ?? LV Area will ?37.5 cm2 ? LV vol s MOD A2 ??2.26 cm ?? LV Area will ?33.9 cm2 ? LV vol s MOD A2 ??2.99 cm ?? LVA% ?52.5 % ? LV vol s MOD A2 ??3.05 cm ?? LVA% ?45.4 % ? LV vol s MOD A2 ??3.01 cm ?? LV Area sys ? 17.8 cm2 ? LV vol s MOD A2 ?? 2.9 cm ?? LV Area sys ? 18.5 cm2 ? LV vol s MOD A2 ??2.66 cm ?? LV EF ? 73.4 % ? LV vol s MOD A2 ??2.32 cm ?? LV EF ? 63.8 % ? LV vol s MOD A2 ??2.11 cm ?? LV EF BP ?69.5 % ? LV vol s MOD A2 ??1.84 cm ?? LV EDV ? 135 ml ?LV vol s MOD A2 ??1.36 cm ?? LV EDV ? 108 ml ?LV vol s MOD A2 0.693 cm ?? LVEDV BP ?59.6 ml/m2 ? LV vol s MOD A2 ??2.41 cm ?? LV ESV ?35.9 ml ?LV vol s MOD A2 ??2.53 cm ?? LV ESV ?39.1 ml ?LV vol s MOD A2 ??2.68 cm ?? LVESV BP ?18.2 ml/m2 ? LV vol s MOD A2 ??2.74 cm ?? LV Mass ? 1.33 g/cm ?LV vol s MOD A2 ??2.72 cm ?? Minor Wood (Rosalie ??3.56 cm ? LV vol s MOD A2 ??2.69 cm ?? Composite heart ?45 bpm ?LV vol s MOD A2 ??2.71 cm ?? Composite heart ?43 bpm ?LV vol s MOD A2 ??2.84 cm ?? Composite heart ?51 bpm ?LV vol s MOD A4 ??2.04 cm ?? Composite heart ?44 bpm ?LV vol s MOD A4 ??2.73 cm ?? Composite heart ?51 bpm ?LV vol s MOD A4 ??2.25 cm ?? LV vol d MOD A2 ??3.64 cm ? LV vol s MOD A4 ??2.37 cm ?? LV vol d MOD A2 ??4.22 cm ? LV vol s MOD A4 ??2.55 cm ?? LV vol d MOD A2 ??4.82 cm ? LV vol s MOD A4 ??2.76 cm ?? LV vol d MOD A2 ??5.06 cm ? LV vol s MOD A4 ??2.85 cm ?? LV vol d MOD A2 ??5.21 cm ? LV vol s MOD A4 ??2.73 cm ?? LV vol d MOD A2 ??5.24 cm ? LV vol s MOD A4 ??2.37 cm ?? LV vol d MOD A2 ??5.12 cm ? LV vol s MOD A4 ??2.01 cm ?? LV vol d MOD A2 ??4.85 cm ? LV vol s MOD A4 ??1.62 cm ?? LV vol d MOD A2 ??4.33 cm ? LV vol s MOD A4 ??1.02 cm ?? LV vol d MOD A2 ??3.58 cm ? LV vol s MOD A4 ??3.06 cm ?? LV vol d MOD A2 ??2.65 cm ? LV vol s MOD A4 ??3.24 cm ?? LV vol d MOD A2 ??1.51 cm ? LV vol s MOD A4 ??3.36 cm ?? LV vol d MOD A2 ??4.49 cm ? LV vol s MOD A4 ??3.42 cm ?? LV vol d MOD A2 ??4.61 cm ? LV vol s MOD A4 ??3.36 cm ?? LV vol d MOD A2 ??4.67 cm ? LV vol s MOD A4 ??2.97 cm ?? LV vol d MOD A2 ??4.76 cm ? LV vol s MOD A4 ??2.52 cm ?? LV vol d MOD A2 ??4.85 cm ? LV vol s MOD A4 ??2.25 cm ?? LV vol d MOD A2 ??4.85 cm ? LVPW ?? LVPWd ? 1.02 cm ? Left Atrium ?? LA VOLBP ?62.8 ml ?Major Wood (Sys ??6.14 cm ?? Yang Disk Nu ? 9 ?Major Wood (Sys ??5.76 cm ?? Ratios ?? IVS Ventricular Septum ?? IVSd ?1.09 cm ? Aorta ?? AO Ds ? 3.76 cm ? LV Area-Length Biplane LVEDV ?121 ml ?LVESV ? 38.4 ml ?? LV Area-Length Single Plane LVEDV ?141 ml ?LVESV ? 37 ml ?? LVEDV ?110 ml ?LVESV ? 40.9 ml ?? LVOT ?? LVOTArea ? 3.6 cm2 ? Cardiovascular ?? 2.14 cm ?? Mitral Valve ?? Orf Diam ?3.48 cm ? Right Atrium ?? Major Wood (Sys ??5.17 cm ? Yang Disk Nu ? 9 ? HR ?55 bpm ? RA Area-Length Single Plane Volume (Systole ??24.5 ml/m2 ? RA Single Plane RA sys Area ? 17.5 cm2 ? Volume (Systole ??47.1 ml ?? Right Ventricle ?? RVIDd ? 3.44 cm ?HR ?53 bpm Major Wood (Rosalie ??7.45 cm ? Minor Wood (Rosalie ??2.96 cm ?? RVOT ?? PG pk ? 3.92 mmHg ?Peak Velocity ? 99 cm/s TA ?? Cardiovascular ?? 3.11 cm ?MMODE Ratios ?? LA/Ao ? 1.61 ?(0.87-1.1)* Aorta ?? Ao Rt ? 2.98 cm ?? (zsc 0.4) Aortic Valve ?? AV sep ?1.82 cm ?? (1.5-2.6) PG pk ? 9.53 mmHg AC ?91.2 ms ?Peak Velocity ?154 cm/s HR ?53 bpm ? VTI ?0.397 m ?? PG mean ? 5.64 mmHg ?AV ET ?348 ms ?? Mean Velocity ?114 cm/s ?AV AC/ET ? 0.262 ? Left Atrium ?? LAIDs ?4.8 cm ?End Diastolic A ??0.62 ? AV Continuity Equation by Mean Velocity Orf Area ?2.97 cm2 ? AV Continuity Equation by Peak Velocity Orf Area ? 1.3 square centimeters/square meter Area ?2.67 cm2 AV Continuity Equation by Velocity Time Integral Orf Area ?1.36 square centimeters/square meter Area ?2.79 cm2 Left Ventricle ?? Heart Rate-Richard ?? 433 ms ? Composite HR fo ?53 bpm Composite heart ?53 bpm ? Pulmonary Veins ?? Pul Vn A Dur ? 120 ms ?Pul Vn sys Vmax ??46.9 cm/s Pul Vein Atrial ??32.9 cm/s ? Pul Vn sys/will ??1.53 ? Pul Vn Will Pk ?? 30.6 cm/s ? Tricuspid Valve ?? Tricuspid annul ??2.47 cm ? Vena Cava ?? IVC Diam ?0.92 cm ? Signed 07/17/2021 12:47 PM Erik Bowling M.D. Procedure Note Erik Bowling MD - 07/17/2021 Echocardiography Report Pat.Name: HAIR SARGENT Pat.ID: [id number] .Date: 07/17/2021 Refer.: [id number] RENATE Carrera EWDPROV EWDPROV Exam Time: 9:18:00 AM Study Type:ECHO WITH CARDIAC DOPPLER COMP Height: 60in Weight: 249.48lb BSA: 2.05 m2 Age: 5 1955,66Y Sex: FEMALE BP: 104/40 HR: 51 bpm Sonogrphr: Susan Fragoso [facility] Pat. Stat.:Outpatient Reason for Study: Shortness of breath History / Clinical: LE edma; PMH- Obese, HTN, xtob, CKD3, MOR-CPAP, Le edema- on diuretics, prior BLEV @ [facility] 03/07/20 negative Procedures: 2D, M-mode, Doppler, Color Flow, Definity was used to enhance endocardial definition., The study quality is technically difficult. Race: W ++++++++++++++++++++++++++++++++++++ SUMMARY: ++++++++++++++++++++++++++++++++++++ The left ventricular size is normal. Estimated [...] pulmonic regurgitation. A trace of tricuspid regurgitation. ++++++++++++++++++++++++++++++++++++ FINDINGS: ++++++++++++++++++++++++++++++++++++ LV: The left ventricular size is normal. Estimated [...] ventricular septal defect. LA: The left atrial size is mildly enlarged. The left atrial volume is normal ( [...] No evidence of aortic valve regurgitation. MV: Mild mitral regurgitation. No evidence of mitral stenosis. PV: No evidence of pulmonic valve stenosis. Mild pulmonic regurgitation. TV: A trace of tricuspid regurgitation. No evidence of tricuspid valve stenosis. ++++++++++++++++++++++++++++++++++++ MEASUREMENTS: ++++++++++++++++++++++++++++++++++++ DOPPLER LVOT LVOTpkPG 5.23 mmHg LVOTmnPG 3.67 mmHg LVOTpkVel 114 cm/s (70-110)* LVOT CO 5.81 l/min LVOT TVI 30.8 cm MV Forward Flow MV DeTm 262 ms MV pkE 95.9 cm/s (60-130) MVA P1/2t 2.9 cm2 (4-6)* MV pkA 109 cm/s MV P1/2t 75.9 ms (30-60)* MV SV 179 ml MV E/A 0.882 PV Regurg Flow PV pkVel 95.8 cm/s TV Forward Flow TV pkE 53.1 cm/s Lat E' Lat e 11.2 cm/s Lat E/E' Lat E/e 8.59 Med E' Med e 13.7 cm/s Med E/E' Med E/e 7.01 Left Ventricle LV IVRT 95.3 ms Composite heart 52 bpm Left Ventricula 114 mmHg Mitral Annulus PG mean 0.428 mmHg VTI 0.189 m Mitral Valve Decel Gaston 388 cm/s2 Regurg Frac 38.3 % HR 53 bpm Mitral Valve A 1.13 MV Regurgitant Flow Length 0.33 cm Volume 68.6 ml Pulmonic Valve AC 99.5 ms Peak Velocity 132 cm/s PG pk 6.97 mmHg PV Regurgitant Flow Peak Gradient ( 3.67 mmHg Tricuspid Valve TV Free Wall Sa 10.9 cm/s HR 56 bpm TV A pk Dilma 39.4 cm/s 2D Left Ventricle LV CI 1.66 l/min/m2 LV vol d MOD A2 4.82 cm LVIDd 5.11 cm (4.3-5.1)* LV vol d MOD A2 4.79 cm LVIDs 3.68 cm (2-4) LV vol d MOD A4 2.62 cm LV%fs 27.9 % (25-46) LV vol d MOD A4 3.76 cm LV CI 2.18 l/min/m2 LV vol d MOD A4 4.6 cm LV CI 1.44 l/min/m2 LV vol d MOD A4 4.78 cm LV CO 4.46 l/min LV vol d MOD A4 4.72 cm LV CO 2.96 l/min LV vol d MOD A4 4.54 cm LV CO BP 3.74 l/min LV vol d MOD A4 4.12 cm LV SV 99.2 ml LV vol d MOD A4 3.55 cm LV SV 68.8 ml LV vol d MOD A4 3.01 cm LV SV BP 85 ml LV vol d MOD A4 2.17 cm IVS %th 40.2 % LV vol d MOD A4 1.23 cm IVSs 1.53 cm LV vol d MOD A4 0.421 cm Left Ventricle 8.52 cm LV vol d MOD A4 4 cm Left Ventricle 8.9 cm LV vol d MOD A4 4.24 cm LVPW%th 56.7 % LV vol d MOD A4 4.48 cm LVPWs 1.6 cm LV vol d MOD A4 4.51 cm LV Semi-major A 3.76 cm LV vol d MOD A4 4.51 cm Left Ventricle 7.3 cm LV vol d MOD A4 4.51 cm Left Ventricle 7.12 cm LV vol d MOD A4 4.45 cm Left Ventricle 7.3 cm LV vol d MOD A4 4.57 cm LV Trunc Semi-m 5.14 cm LV vol s MOD A2 2.17 cm LV Area will 37.5 cm2 LV vol s MOD A2 2.26 cm LV Area will 33.9 cm2 LV vol s MOD A2 2.99 cm LVA% 52.5 % LV vol s MOD A2 3.05 cm LVA% 45.4 % LV vol s MOD A2 3.01 cm LV Area sys 17.8 cm2 LV vol s MOD A2 2.9 cm LV Area sys 18.5 cm2 LV vol s MOD A2 2.66 cm LV EF 73.4 % LV vol s MOD A2 2.32 cm LV EF 63.8 % LV vol s MOD A2 2.11 cm LV EF BP 69.5 % LV vol s MOD A2 1.84 cm LV EDV 135 ml LV vol s MOD A2 1.36 cm LV EDV 108 ml LV vol s MOD A2 0.693 cm LVEDV BP 59.6 ml/m2 LV vol s MOD A2 2.41 cm LV ESV 35.9 ml LV vol s MOD A2 2.53 cm LV ESV 39.1 ml LV vol s MOD A2 2.68 cm LVESV BP 18.2 ml/m2 LV vol s MOD A2 2.74 cm LV Mass 1.33 g/cm LV vol s MOD A2 2.72 cm Minor Wood (Rosalie 3.56 cm LV vol s MOD A2 2.69 cm Composite heart 45 bpm LV vol s MOD A2 2.71 cm Composite heart 43 bpm LV vol s MOD A2 2.84 cm Composite heart 51 bpm LV vol s MOD A4 2.04 cm Composite heart 44 bpm LV vol s MOD A4 2.73 cm Composite heart 51 bpm LV vol s MOD A4 2.25 cm LV vol d MOD A2 3.64 cm LV vol s MOD A4 2.37 cm LV vol d MOD A2 4.22 cm LV vol s MOD A4 2.55 cm LV vol d MOD A2 4.82 cm LV vol s MOD A4 2.76 cm LV vol d MOD A2 5.06 cm LV vol s MOD A4 2.85 cm LV vol d MOD A2 5.21 cm LV vol s MOD A4 2.73 cm LV vol d MOD A2 5.24 cm LV vol s MOD A4 2.37 cm LV vol d MOD A2 5.12 cm LV vol s MOD A4 2.01 cm LV vol d MOD A2 4.85 cm LV vol s MOD A4 1.62 cm LV vol d MOD A2 4.33 cm LV vol s MOD A4 1.02 cm LV vol d MOD A2 3.58 cm LV vol s MOD A4 3.06 cm LV vol d MOD A2 2.65 cm LV vol s MOD A4 3.24 cm LV vol d MOD A2 1.51 cm LV vol s MOD A4 3.36 cm LV vol d MOD A2 4.49 cm LV vol s MOD A4 3.42 cm LV vol d MOD A2 4.61 cm LV vol s MOD A4 3.36 cm LV vol d MOD A2 4.67 cm LV vol s MOD A4 2.97 cm LV vol d MOD A2 4.76 cm LV vol s MOD A4 2.52 cm LV vol d MOD A2 4.85 cm LV vol s MOD A4 2.25 cm LV vol d MOD A2 4.85 cm LVPW LVPWd 1.02 cm Left Atrium LA VOLBP 62.8 ml Major Wood (Sys 6.14 cm Yang Disk Nu 9 Major Wood (Sys 5.76 cm Ratios IVS Ventricular Septum IVSd 1.09 cm Aorta AO Ds 3.76 cm LV Area-Length Biplane LVEDV 121 ml LVESV 38.4 ml LV Area-Length Single Plane LVEDV 141 ml LVESV 37 ml LVEDV 110 ml LVESV 40.9 ml LVOT LVOTArea 3.6 cm2 Cardiovascular 2.14 cm Mitral Valve Orf Diam 3.48 cm Right Atrium Major Wood (Sys 5.17 cm Yang Disk Nu 9 HR 55 bpm RA Area-Length Single Plane Volume (Systole 24.5 ml/m2 RA Single Plane RA sys Area 17.5 cm2 Volume (Systole 47.1 ml Right Ventricle RVIDd 3.44 cm HR 53 bpm Major Wood (Rosalie 7.45 cm Minor Wood (Rosalie 2.96 cm RVOT PG pk 3.92 mmHg Peak Velocity 99 cm/s TA Cardiovascular 3.11 cm MMODE Ratios LA/Ao 1.61 (0.87-1.1)* Aorta Ao Rt 2.98 cm (zsc 0.4) Aortic Valve AV sep 1.82 cm (1.5-2.6) PG pk 9.53 mmHg AC 91.2 ms Peak Velocity 154 cm/s HR 53 bpm VTI 0.397 m PG mean 5.64 mmHg AV ET 348 ms Mean Velocity 114 cm/s AV AC/ET 0.262 Left Atrium LAIDs 4.8 cm End Diastolic A 0.62 AV Continuity Equation by Mean Velocity Orf Area 2.97 cm2 AV Continuity Equation by Peak Velocity Orf Area 1.3 square centimeters/square meter Area 2.67 cm2 AV Continuity Equation by Velocity Time Integral Orf Area 1.36 square centimeters/square meter Area 2.79 cm2 Left Ventricle Heart Rate-Richard 433 ms Composite HR fo 53 bpm Composite heart 53 bpm Pulmonary Veins Pul Vn A Dur 120 ms Pul Vn sys Vmax 46.9 cm/s Pul Vein Atrial 32.9 cm/s Pul Vn sys/will 1.53 Pul Vn Will Pk 30.6 cm/s Tricuspid Valve Tricuspid annul 2.47 cm Vena Cava IVC Diam 0.92 cm Signed 07/17/2021 12:47 PM Erik Bowling M.D. Erik Bowling MD ECHO Final Result documented in this encounter Visit Diagnoses Diagnosis SOB (shortness of breath)- Primary Shortness of breath Sleep disturbance Sleep disturbance, unspecified Edema High blood pressure Unspecified essential hypertension MOR (obstructive sleep apnea) Obstructive sleep apnea (adult) (pediatric) GERD (gastroesophageal reflux disease) Esophageal reflux Essential hypertension Unspecified essential hypertension documented in this encounter Administered Medications Inactive Administered Medications - up to 3 most recent administrations Medication Order MAR Action Action Date Dose Rate Site Generic Radiopharmaceutical 46.2 millicurie 46.2 millicurie, Intravenous, IMG once as needed, 46.2 mCi Tc99m Myoview, 1 dose, Starting on Sat07/17/21 at 1240, Until Sat07/17/21 at 1240 Given 07/17/2021 12:40 PM CDT 46.2 millicuries Right Arm perflutren lipid microsphere (DEFINITY) injection 2 mL 2 mL, Intravenous, IMG once as needed, Contrast, 1 dose, Starting on Sat07/17/21 at 0953, Until Sat07/17/21 at 0956, Administer over 30-60 seconds. Follow with 10 mL saline flush. Given 07/17/2021 9:56 AM CDT 2 mLs regadenoson (LEXISCAN) injection 0.4 mg 0.4 mg, Intravenous, Once, 1 dose, On Sat07/17/21 at 1130, Administer over 10 seconds Given 07/17/2021 10:41 AM CDT 0.4 mg documented in this encounter Additional Health Concerns Assessment Noted Time PHQ-9 Depression Total Score: 5 06/22/20 21 10:07 AM CDT documented as of this encounter Care Teams Labor Representative Relationship Specialty Start Date End Date Sami Liriano DO [address] [place] [address] PCP - General FAMILY PRACTICE 12/24/19 documented as of this encounter
--- OUTSIDE RECORDS SUMMARY | 2024-09-19 12:22 | XMS_ITS | Encounter Summary ---
Author Organization [facility] Address [address] [place] [address]. [place], [place] [address] [place] [address] Care Team Providers Care Door Slinger Name Role Phone Sami Liriano Primary Care Provider + Reason for Visit * Reason Comments Sleep Study (SCAN) Encounter Details Date Type Department Care Team ([facility] Contact Info) Description 07/01/2021 Scan HEALTH INFO SRVCS Scanned, Doc Med Group Sleep Study (SCAN) Social History Tobacco Use Types [...] on file Legal Sex Female 12:43 PM RN UNIT MANAGER Gender Identity Female 12/18/2021 6:31 AM [...] st Contact Info) Description 10/09/2024 9:30 AM RN UNIT MANAGER Office Visit [facility] [phone] Carlos Farris MD [address] [facility] [address] [place] [address] 11/02/2024 10:20 AM RN UNIT MANAGER Office Visit [facility] Medical Group Family & Internal Medicine - [address] [phone] Sami Liriano DO [address] [place] [address] documented as of this encounter Procedures Procedure Name Priority Date/Time Associated Diagnosis Comments SLEEP STUDY GENERIC (SCAN ORDER) 07/01/2021 SLEEP STUDY GENERIC (SCAN ORDER) 07/01/2021 documented in this encounter Results * SLEEP STUDY GENERIC (07/01/2021) 07/01/2021 us Doc Med Group Scanned SCANNING Final Resu lt * SLEEP STUDY GENERIC (07/01/2021) 07/01/2021 Narrative 07/01/2021 Ordered by an unspecified provider. us Documents Scanned SCANNING Final Result documented in this encounter Visit Diagnoses Not on filedocumented in this encounter Additional Health Concerns Infection Onset Date Last Indicated Resolved Time COVID-19 Rule Out 10/06/2021 10/11/2021 10/11/2021 8:45 AM RN UNIT MANAGER COVID-19 Rule Out 10/11/2021 10/11/2021 10/12/2021 1:13 AM RN UNIT MANAGER COVID-19 Confirmed 10/11/2021 10/11/2021 12:35 AM RN UNIT MANAGER Assessment Noted Time PHQ-9 Depression Total Score: 5 06/22/20 21 10:07 AM CDT documented as of this encounter Care Teams Door Slinger Relationship Specialty Start Date End Date Sami Liriano DO [address] [place] [address] PCP - General FAMILY PRACTICE 12/24/19 documented as of this encounter
--- OUTSIDE RECORDS SUMMARY | 2024-09-19 12:22 | XMS_ITS | Encounter Summary ---
Author Organization [facility] Address [address] [place] [address]. [place], [place] [address] [place] [address] Care Team Providers Care Organ Pipe Maker Metal Name Role Phone Sami Liriano DO Primary Care Provider + Reason for Visit * Reason Onset Date Comments Lab Results 06/23/2021 Encounter Details Date Type Department Care Team (Late st Contact Info) Description 06/23/2021 Telephone [facility] Medical Group Family & Internal Medicine [place] [id number] [place] [phone] Sami Liriano DO 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 No / Unsure 06/22/2021 9:30 AM CDT documented as of this encounter Progress Notes * Melanie Lance MA - 06/23/2021 11:20 AM CDT Patient contacted, order placed and appointment with the lab scheduled. tn * Melanie Lance MA - 06/23/2021 11:13 AM CDT ----- Message from Sami Liriano DO sent at 06/23/2021 9:07 AM CDT ----- Kidney function is decreased slightly; would like to recheck BMP in 2 weeks. If still trending downward, we will need to decrease her furosemide dose. documented in this encounter Plan of Treatment Upcoming Encounters Date Type Department Care Team (Late st Contact Info) Description 10/09/2024 9:30 AM CATHEAD OPERATOR Office Visit [facility]-[address] [phone] Carlos Farris MD [address] [facility] [address] [facility] [place] [address] 11/02/2024 10:20 AM CATHEAD OPERATOR Office Visit [facility] Medical Group Family & Internal Medicine - [address] [phone] Sami Liriano DO [address] [place] [address] documented as of this encounter Visit Diagnoses Diagnosis Elevated serum creatinine- Primary Other nonspecific findings on examination of blood documented in this encounter Additional Health Concerns Assessment Noted Time PHQ-9 Depression Total Score: 5 06/22/20 21 10:07 AM CDT documented as of this encounter Care Teams Organ Pipe Maker Metal Relationship Specialty Start Date End Date Sami Liriano DO [address] [place] [address] PCP - General FAMILY PRACTICE 12/24/19 documented as of this encounter
--- OUTSIDE RECORDS SUMMARY | 2024-09-19 12:22 | XMS_ITS | Encounter Summary ---
Author Organization [facility] Address [facility]. [place], [place] [address] [place] [address] Care Team Providers Care Vp Research Name Role Phone Sami Liriano DO Primary Care Provider + Reason for Referral * Consultation (Routine) - Closed Specialty Diagnoses / Procedures Referred By Shereen t Referred To Contact SLEEP & RESPIRATORY CARE Diagnoses MOR (obstructive sleep apnea) Erik Bowling MD [address] [facility] [address] [place] [address] Phone: tel: fax: Sami Pinto MD 3 [facility] [address] [place] [address] Phone: tel: fax: Referral ID Status Reason Start Date Expiration Date Visits Re quested Visits Authorized [id number] Closed 07/14/2021 08/14/2022 1 1 Encounter Details Date Type Department Care Team (Late st Contact Info) Description 07/14/2021 Orders Only [facility] [address] [facility] [address] [place], [place] [id number] Erik Bowling MD [address] [facility] [address] [place] [phone] Social History Tobacco Use Types Packs/Day Years [...] on file Legal Sex Female 12:43 PM PIPE OUT WORKER Gender Identity Female 12/18/2021 6:31 AM [...] st Contact Info) Description 10/09/2024 9:30 AM PIPE OUT WORKER Office Visit [facility]-[address] [phone] Carlos Farris MD [facility] [address] [facility] [place] [address] 11/02/2024 10:20 AM PIPE OUT WORKER Office Visit [facility] Medical Group Family & Internal Medicine - [address] [phone] Sami Liriano, [address] [place] [address] Scheduled Referrals Name Type Priority Associated Diagnoses Orde r Schedule Ambulatory referral to Pulmonology/Sleep and Respiratory Care Referral Routine MOR (obstructive sleep apnea) Ordered: 07/14/2021 documented as of this encounter Visit Diagnoses Diagnosis MOR (obstructive sleep apnea)- Primary Obstructive sleep apnea (adult) (pediatric) documented in this encounter Additional Health Concerns Assessment Noted Time PHQ-9 Depression Total Score: 5 06/22/20 21 10:07 AM CDT documented as of this encounter Care Teams Vp Research Relationship Specialty Start Date End Date Sami Liriano DO [address] [place] [address] PCP - General FAMILY PRACTICE 12/24/19 documented as of this encounter
--- OUTSIDE RECORDS SUMMARY | 2024-09-19 12:22 | XMS_ITS | Encounter Summary ---
Author Organization [facility] Address Critical access hospital6 [facility]. [place], [place] [address] [place] [address] Care Team Providers Care Video Poker Floorman Name Role Phone Sami Liriano Primary Care Provider + Encounter Details Date Type Department Care Team (Latest Contact Info) Description 07/10/2021 Travel Social History Tobacco Use Types Packs/Day [...] on file Legal Sex Female 12:43 PM TEST BORER HELPER Gender Identity Female 12/18/2021 6:31 AM [...] have Coronavirus / COVID-19? No / Unsure 07/10/2021 10:16 AM CDT documented as of this encounter Plan of Treatment Upcoming Encounters Date Type Department Care Team (Late st Contact Info) Description 10/09/2024 9:30 AM TEST BORER HELPER Office Visit [facility] [phone] Carlos Farris MD [address] [facility] [address] [place] [address] 11/02/2024 10:20 AM TEST BORER HELPER Office Visit [facility] Medical Group Family & Internal Medicine - [address] [phone] Sami Liriano DO [address] [place] [address] documented as of this encounter Visit Diagnoses Not on filedocumented in this encounter Additional Health Concerns Assessment Noted Time PHQ-9 Depression Total Score: 5 06/22/20 21 10:07 AM CDT documented as of this encounter Care Teams Video Poker Floorman Relationship Specialty Start Date End Date Sami Liriano DO [address] [place] [address] PCP - General FAMILY PRACTICE 12/24/19 documented as of this encounter
--- OUTSIDE RECORDS SUMMARY | 2024-09-19 12:22 | XMS_ITS | Encounter Summary ---
Author Organization [facility] Address [address] [place] [address]. [place], [place] [address] [place] [address] Care Team Providers Care 4 H Youth Development Specialist Name Role Phone Sami Liriano DO Primary Care Provider + Reason for Visit * Reason Onset Date Comments Pre Appt Labs 07/13/2021 Encounter Details Date Type Department Care Team (Late st Contact Info) Description 07/13/2021 Telephone [facility] Medical Group Family & Internal Medicine [facility] [address] [place] [phone] Sami Liriano DO [facility] [place] [address] Pre Appt Labs Social History Tobacco Use Types Packs/Day Years [...] on file Legal Sex Female 12:43 PM TROUBLE LINEMAN Gender Identity Female 12/18/2021 6:31 AM CDT [...] Notes * Sami Liriano DO - 07/14/2021 11:14 AM CDT That's fine; already ordered. * Maria Del Rosario York - 07/13/2021 2:56 PM CDT Patient is asking if we can add on a urinalysis for her labs tomorrow. There is one in there ordered by Dr. Bowling but not one that we have ordered. documented in this encounter Plan of Treatment Upcoming Encounters Date Type Department Care Team (Late st Contact Info) Description 10/09/2024 9:30 AM TROUBLE LINEMAN Office Visit [facility]-[address] [phone] Carlos Farris MD [address] [facility] [address] [facility] [place] [address] 11/02/2024 10:20 AM TROUBLE LINEMAN Office Visit [facility] Medical Group Family & Internal Medicine - [address] [phone] Sami Liriano DO [address] [place] [address] documented as of this encounter Visit Diagnoses Not on filedocumented in this encounter Additional Health Concerns Assessment Noted Time PHQ-9 Depression Total Score: 5 06/22/20 21 10:07 AM CDT documented as of this encounter Care Teams 4 H Youth Development Specialist Relationship Specialty Start Date End Date Sami Liriano DO [address] [place] [address] PCP - General FAMILY PRACTICE 12/24/19 documented as of this encounter
--- OUTSIDE RECORDS SUMMARY | 2024-09-19 12:23 | XMS_ITS | Encounter Summary ---
Author Organization [facility] Address [facility] [place], [place] [address] [place] [address] Care Team Providers Care Tail Sawyer Name Role Phone Sami Liriano Nicole AGUIAR Primary Care Provider + Reason for Visit * Reason Onset Date Comments Consult 06/12/2021 Encounter Details Date Type Department Care Team (Late st Contact Info) Description 06/12/2021 Telephone [place] [phone] Brooke Acosta, RMA Consult Social History Tobacco [...] 3, please move on to questions 3-9 2 12/15/2020 Comments No Sex and Gender Information Value Date Recorded Sex Assigned at Not on file Legal Sex Female 12:43 PM SOCIAL SCIENCES INSTRUCTOR Gender Identity Female 12/18/2021 6:31 AM [...] have Coronavirus / COVID-19? No / Unsure 05/25/2021 9:32 AM CDT documented as of this encounter Progress Notes * TAN Jara - 06/12/2021 2:31 PM CDT Returned call and left message on for patient to schedule cardiology consult per Dr Liriano documented in this encounter Plan of Treatment Upcoming Encounters Date Type Department Care Team (Late st Contact Info) Description 10/09/2024 9:30 AM SOCIAL SCIENCES INSTRUCTOR Office Visit [facility]-[address] [phone] Carlos Farris MD [facility] [address] [facility] [place] [address] 11/02/2024 10:20 AM SOCIAL SCIENCES INSTRUCTOR Office Visit [facility] Medical Group Family & Internal Medicine - [address] [phone] Sami Liriano DO [address] [place] [address] documented as of this encounter Visit Diagnoses Not on filedocumented in this encounter Additional Health Concerns Assessment Noted Time PHQ-9 Depression Total Score: 12 12/15/2 021 8:10 AM CDT documented as of this encounter Care Teams Tail Sawyer Relationship Specialty Start Date End Date Sami Liriano DO [address] [place] [address] PCP - General FAMILY PRACTICE 12/24/19 documented as of this encounter
--- OUTSIDE RECORDS SUMMARY | 2024-09-19 12:23 | XMS_ITS | Encounter Summary ---
Author Organization [facility] Address [address] [place] [address]. [place], [place] [address] [place] [address] Care Team Providers Care Area Cleaner Name Role Phone Sami Liriano DO Primary Care Provider + Reason for Visit * Reason Onset Date Comments Results 05/29/2021 Encounter Details Date Type Department Care Team (Late st Contact Info) Description 05/29/2021 Telephone [facility] Medical Group Family & Internal Medicine [place] [phone] [place] [phone] Sami Liriano DO [address] [place] [address] Results Social History Tobacco Use Types [...] on file Legal Sex Female 12:43 PM CUPOLA OPERATOR INSULATION Gender Identity Female 12/18/2021 6:31 AM CDT [...] Progress Notes * Radha Oglesby MA - 05/29/2021 12:05 PM CDT Patient notified and v/u * Radha Oglesby MA - 05/29/2021 12:05 PM CDT ----- Message from Sami Liriano DO sent at 05/28/2021 1:23 PM CDT ----- Negative documented in this encounter Plan of Treatment Upcoming Encounters Date Type Department Care Team (Late st Contact Info) Description 10/09/2024 9:30 AM CUPOLA OPERATOR INSULATION Office Visit [facility]-[address] [phone] Carlos Farris MD Three [facility] [address] [place] [address] 11/02/2024 10:20 AM CUPOLA OPERATOR INSULATION Office Visit [facility] Medical Group Family & Internal Medicine - [address] [phone] Sami Liriano DO [address] [place] [address] documented as of this encounter Visit Diagnoses Not on filedocumented in this encounter Additional Health Concerns Assessment Noted Time PHQ-9 Depression Total Score: 12 03/18/2 021 8:10 AM CDT documented as of this encounter Care Teams Area Cleaner Relationship Specialty Start Date End Date Sami Liriano DO [address] [place] [address] PCP - General FAMILY PRACTICE 12/24/19 documented as of this encounter
--- OUTSIDE RECORDS SUMMARY | 2024-09-19 12:23 | XMS_ITS | Encounter Summary ---
Author Organization [facility] Address [facility]6 [facility]. [place], [place] [address] [place] [address] Care Team Providers Care Spine Surgeon Name Role Phone Sami Liriano Primary Care Provider + Encounter Details Date Type Department Care Team (Latest Contact Info) Description 06/16/2021 Travel Social History Tobacco Use Types Packs/Day [...] on file Legal Sex Female 12:43 PM FRONT OFFICE MANAGER Gender Identity Female 12/18/2021 6:31 AM [...] have Coronavirus / COVID-19? No / Unsure 06/16/2021 10:34 AM CDT documented as of this encounter Plan of Treatment Upcoming Encounters Date Type Department Care Team (Late st Contact Info) Description 10/09/2024 9:30 AM FRONT OFFICE MANAGER Office Visit [facility]-[address] [phone] Carlos Farris MD Three [facility] [address] [place] [address] 11/02/2024 10:20 AM FRONT OFFICE MANAGER Office Visit [facility] Medical Group Family & Internal Medicine - [address] [phone] Sami Liriano DO [address] [place] [address] documented as of this encounter Visit Diagnoses Not on filedocumented in this encounter Additional Health Concerns Assessment Noted Time PHQ-9 Depression Total Score: 12 12/15/2 021 8:10 AM CDT documented as of this encounter Care Teams Spine Surgeon Relationship Specialty Start Date End Date Sami Liriano DO [address] [place] [address] PCP - General FAMILY PRACTICE 12/24/19 documented as of this encounter
--- OUTSIDE RECORDS SUMMARY | 2024-09-19 12:23 | XMS_ITS | Encounter Summary ---
Author Organization [facility] Address [facility]. 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 [address] [place] [address] 11/02/2024 10:20 AM AMMONIA TECHNICIAN Office Visit [facility] Medical Group Family & Internal Medicine - [address] [phone] Sami Liriano DO [address] [place] [address] documented as of this encounter Visit Diagnoses Not on filedocumented in this encounter Additional Health Concerns Infection Onset Date Last Indicated Resolved Time COVID-19 Rule Out 05/25/2021 05/25/2021 05/27/2021 4:08 AM CDT Assessment Noted Time PHQ-9 Depression Total Score: 12 12/15/ 021 8:10 AM CDT documented as of this encounter Care Teams Set Making Machine Operator Relationship Specialty Start Date End Date Sami Liriano DO [address] [place] [address] PCP - General FAMILY PRACTICE 12/24/19 documented as of this encounter
--- OUTSIDE RECORDS SUMMARY | 2024-09-19 12:23 | XMS_ITS | Encounter Summary ---
Author Organization [facility] Address Formerly [facility]6 [facility]. [place], [place] [address] [place] [address] Care Team Providers Care Auto Body Repair Estimator Name Role Phone Sami Liriano DO Primary Care Provider + Reason for Visit * Reason Comments Consult Dr. Liriano Breathing Problem SORTO * Consultation (Routine) - Closed Specialty Diagnoses / Procedures Referred By Shereen t Referred To Contact CARDIOLOGY / Cardiology Diagnoses Dyspnea on exertion Procedures OV Sami Liriano DO [address] [place] [address] Phone: tel: fax: Erik Bowling MD 3 [facility] [address] [place] [phone] Phone: tel: fax: Referral ID Status Reason Start Date Expiration Date V isits Requested Visits Authorized [id number] Closed Specialty Services 06/15/2021 06/14/2022 6 6 Encounter Details Date Type Department Care Team (Latest Contact Info) Description 06/16/2021 10:30 AM CDT Office Visit [facility] [phone] Erik Bowling MD 3 [facility] [address] [place] [phone] Consult (Dr. 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 No / Unsure 06/16/2021 10:34 AM CDT documented as of this encounter Last Filed Vital Signs Vital Sign Reading Time Taken Comments Blood Pressure 136/70 06/16/2021 10:40 AM CDT Pulse 70 06/16/2021 10:40 AM CDT Temperature - - Respiratory Rate - - Oxygen Saturation 97% 06/16/2021 10: 40 AM CDT Inhaled Oxygen Concentration - - Weight 114.4 kg (252 lb 3.2 oz) 021 10:40 AM CDT Height 152.4 cm (5') 06/16/2021 10:40 AM CDT Body Mass Index 49.25 06/16/2021 10:40 AM CDT documented in this encounter Progress Notes * TAN Perez - 06/16/2021 10:30 AM CDTAddended by: LAWSON COOPER on: 06/16/2021 11:22 AM Modules accepted: Orders * Erik Bowling MD - 06/16/2021 10:30 AM CDT Reason for Visit: Consult (Dr. Liriano) and Breathing Problem (SORTO) History of Present Illness: This very nice [...] on her legs. She recently went to [facility] with shortnessof breath and the work-up was apparently negative. She was told that they suspected pulmonary embolism but she said she had a CAT scan and apparently was negative. Recommendations and Plan: This patient has edema which may be multifactorial. I will check a venous reflux study, repeat the echo to look for pulmonary hypertension. Check a perfusion stress test to look for CAD as a cause ofher breathlessness. I will order a sleep test as she may well have sleep apnea. I will also order urinalysis to look for protein in the urine. She will follow-up with me after testing. I recommended that she consider getting zippered support hose as she cannot get regular support hose. Watch the sodium intake, avoid nonsteroidal anti- inflammatories. I did not change treatment at the present time.I do not see definite evidence of physical exam of CHF but she is treated with diuretic therapy already. The patient told me she had a negative sleep test in the past and x-ray was positive and she was placed on CPAP for sleep apnea. Medications: Current Outpatient Medications: ??? acetaminophen 325 MG tablet, Take 325 mg by mouth. Take 2 in the am and 2 tabs in the pm and 1 PRN, Disp: , Rfl: ??? albuterol sulfate HFA 108 (90 Base) MCG/ACT inhaler, , Disp: , Rfl: ??? ATORVASTATIN 10 MG tablet, TAKE 1 TABLET BY MOUTH EVERYDAY AT BEDTIME, Disp: 90 tablet, Rfl: 1 ??? CHLORTHALIDONE 25 MG tablet, TAKE 1 TABLET BY MOUTH EVERY DAY (Patient taking differently: 2 (two) times a day. ), Disp: 90 tablet, Rfl: 1 ??? escitalopram 20 MG tablet, Take 20 mg by mouth daily., Disp: , Rfl: ??? furosemide 20 MG tablet, Take 3 tablets (60 mg total) by mouth daily., Disp: 180 tablet, Rfl: 3 ??? LISINOPRIL 40 MG tablet, TAKE 1 TABLET BY MOUTH EVERY DAY, Disp: 90 tablet, Rfl: 1 ??? omeprazole 40 MG capsule, Take 1 capsule (40 mg total) by mouth daily., Disp: 90 capsule, Rfl: 1 ??? OXYBUTYNIN XL 5 MG 24 hr tablet, TAKE 1 TABLET BY MOUTH EVERY DAY, Disp: 90 tablet, Rfl: 1 ??? potassium chloride CR 10 MEQ Tab CR tablet, TAKE 1 TABLET BY MOUTH EVERY DAY, Disp: 90 tablet, Rfl: 1 ??? tiotropium 2.5 MCG/ACT inhaler (SPIRIVA RESPIMAT), Inhale 2 puffs into the lungs daily. Please provide assembled., Disp: , Rfl: ??? traMADol 50 MG tablet, Take 1 [...] 3 performed by Joel Keenan MD at [facility] OR ??? EGD ??? HERNIA REPAIR ??? SHOULDER SURG PROC UNLISTED right ??? TONSILLECTOMY ??? TOTAL KNEE ARTHROPLASTY right Social History Tobacco Use ??? Smoking status: Former Smoker Packs/day: 1.00 Years: 12.00 Pack years: 12.00 Types: Cigarettes Quit date: 1976 Years since quittin.7 ??? Smokeless tobacco: Never Used Substance Use Topics ??? Alcohol use: Not Currently Comment: 2 cocktails on some Sundays ??? Drug use: Never Family History Problem Relation Name Age of Onset ??? Alzheimers Mother ??? Heart Attack Father ??? Heart Disease Father ??? Alzheimers Father ??? Alzheimers Maternal Grandmother ??? Heart Disease Paternal Grandfather Family Status Relation Name Status ??? Mother ??? Father ??? MGM (Not Specified) ??? PGF (Not Specified) Social grew up in [place] was moved to [place] for many years work for [employer].She [...] drinker no illicit drugs. 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 Review of Systems General overweight trouble losing weight appears fatigued tired all the time Skin she flushes in the heat and she sweats a lot and he Eyes good eyesight ENT no sinus problems Respiratory not coughing or wheezing or exertional breathlessness she snores she gets sleepy duringthe day she had a negative sleep test 2 years ago. GI no melena or hematochezia she does have esophageal strictures and has had a couple of ablations done. She swallows pretty well right now no hematuria dysuria positive nocturia x4-5 STAFF ATTORNEY no history of preeclampsia or gestational diabetes, postmenopausal Vascular leg swelling no history of blood clot positive ;she does get hands turning blue and cold suggesting Raynaud's. No clot Occasion neuro no history of stroke or TIA ;her hands go to sleep Psych she was treated for depression after her dad . She is under a lot of stress but does not feel particularly depressed. Musculoskeletal previous right knee replacement. Her left knee has a lot of pain and disability shecannot walk up steps Vitals: 06/16/21 1040 BP: 136/70 Pulse: 70 Body mass index is 49.25 kg/m??. Cardiac Physical Exam Very nice woman overweight [...] Mental status alert coherent cooperative gait normal Ref Range & Units 05/25/21 1031 SODIUM [...] ESTABLISHED eGFR Non-Afr. Amer. >90 ML/MIN/1.73 M2 56 / 0911 GLUCOSE 65 - 99 mg/dL 125High Comment: [...] approximately 13% higher for people identified as -Filipino. ?? eGFR Non-Afr. Amer. > OR = [...] 16 ALT 6 - 29 U/L 17 Ref Range & Units 09/05/20 1400 CHOLESTEROL <200 MG/DL 227High TRIGLYCERIDE <150 MG/DL 150High HDL >40.0 MG/DL 47 LDL (CALCULATED) <100 MG/DL 150High NON HDL CHOLESTEROL <130 MG/DL 180High CHOL/HDL RATIO 0.0 - 4.5 4.8 Ref Range & Units 09/05/20 1400 TSH 0.358 - 3.74 uIU/ML 2.220 Ref Range & Units 12/15/20 0911 ALLYSON NEGATIVE POSITIVEAbnormal 2016 PSG positive for sleep apnea and 7 cm of CPAP was recommended. 12-30-20 renal a doppler- I no renal [...] pulmonic regurgitation. No evidence of tricuspid regurgitation. 03-03-20 EKG SR,78 ,NONSPECIFIC T WAVE ABN. [id number] linda doppler lower ext bilat - negative 02-05-15 lexiscan stress- no ischemia,ef 67 05-25-21 cxr - 2 view-normal Diagnoses/Impression: 1. Dyspnea on exertion 2. Essential hypertension Chronic 3. Mixed hyperlipidemia 4. Overactive bladder Chronic 5. Gastroesophageal reflux disease, unspecified whether esophagitis present Chronic 6. Current mild episode of major depressive disorder without prior episode ([facility]/HCC) Chronic 7. Arthritis of left knee Chronic 8. ALLYSON positive 9. Stage 3a chronic kidney disease ([facility]) Referring Provider: Sami Liriano DO PCP: Sami Liriano DO documented in this encounter Plan of Treatment Upcoming Encounters Date Type Department Care Team (Late st Contact Info) Description 10/09/2024 9:30 AM AUTOMOBILE RENTAL CLERK Office Visit [facility] [phone] Carlos Farris MD [facility] [address] [place] [address] 11/02/2024 10:20 AM AUTOMOBILE RENTAL CLERK Office Visit [facility] Family & Internal Medicine - [address] [phone] Sami Liriano DO [address] [place] [address] documented as of this encounter Visit Diagnoses Diagnosis Dyspnea on exertion- Primary Other dyspnea and respiratory abnormality Essential hypertension Unspecified essential hypertension Mixed hyperlipidemia Overactive bladder Hypertonicity of bladder Gastroesophageal reflux disease, unspecified whether esophagitis present Current mild episode of major depressive disorder without prior episode ([facility]) Arthritis of left knee Unspecified arthropathy, lower leg ALLYSON positive Other and unspecified nonspecific immunological findings Stage 3a chronic kidney disease ([facility]) documented in this encounter Additional Health Concerns Assessment Noted Time PHQ-9 Depression Total Score: 12 12/15/2 021 8:10 AM CDT documented as of this encounter Care Teams Auto Body Repair Estimator Relationship Specialty Start Date End Date Sami Liriano DO [address] [place] [phone] PCP - General FAMILY PRACTICE 12/24/19 documented as of this encounter
--- OUTSIDE RECORDS SUMMARY | 2024-09-19 12:23 | XMS_ITS | Encounter Summary ---
Author Organization [facility] Address [address] [place] [address]. 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 05/29/2020 1 furosemide 20 MG tabletIndications: Essential hypertension Take 2 tablets (40 mg total) by mouth daily. 180 tablet 3 05/25/2021 1 LISINOPRIL 40 MG tabletIndications: Essential hypertension TAKE 1 TABLET BY MOUTH EVERY DAY 90 tablet 1 04/18/2021 1 omeprazole 40 MG capsuleIndications :Gastroesophageal reflux disease without esophagitis Take 1 capsule (40 mg total) by mouth daily. 90 capsule 1 12/15/2020 1 OXYBUTYNIN XL 5 MG 24 hr tabletIndications: Overactive bladder TAKE 1 TABLET BY MOUTH EVERY DAY 90 tablet 1 05/24/2021 1 potassium chloride CR 10 MEQ Tab CR tabletIndications: Bilateral lower extremity edema TAKE 1 TABLET BY MOUTH EVERY DAY 90 tablet 1 01/24/2021 1 tiotropium 2.5 MCG/ACT inhaler (SPIRIVA RESPIMAT) Inhale 2 puffs into the lungs daily. Please provide assembled. 1 traMADol 50 MG tabletIndications: Chronic Pain Take 1 tablet (50 mg total) by mouth every 6 (six) hours as needed for Pain. Indications: Chronic Pain 60 tablet 03/01/2021 documented as of this encounter Plan of Treatment Upcoming Encounters Date Type Department Care Team (Late st Contact Info) Description 10/09/2024 9:30 AM SALES STRATEGY MANAGER Office Visit [facility] [phone] Carlos Farris MD [facility] [address] [place] [address] 11/02/2024 10:20 AM SALES STRATEGY MANAGER Office Visit [facility] Family & Internal Medicine - [address] [phone] Sami Liriano DO [address] [place] [address] documented as of this encounter Visit Diagnoses Not on filedocumented in this encounter Additional Health Concerns Infection Onset Date Last Indicated Resolved Time COVID-19 Rule Out 05/25/2021 05/25/2021 05/27/2021 4:08 AM CDT Assessment Noted Time PHQ-9 Depression Total Score: 12 12/15/2 021 8:10 AM CDT documented as of this encounter Care Teams Procurement Inspector Relationship Specialty Start Date End Date Sami Liriano DO [address] [place] [address] PCP - General FAMILY PRACTICE 12/24/19 documented as of this encounter
--- OUTSIDE RECORDS SUMMARY | 2024-09-19 12:23 | XMS_ITS | Encounter Summary ---
Author Organization [facility] Address [address] [place] [address]. 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 Gender Identity Female 12/18/2021 6:31 AM CDT Sexual Orientation Straight 01/15/2022 6: 11 AM CDT 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 Not on file [...] Contact Info) Description 10/09/2024 9:30 AM CERTIFIED WELDING INSPECTOR Office Visit [facility] [phone] Carlos Farris MD [facility] [address] [place] [address] 11/02/2024 10:20 AM CERTIFIED WELDING INSPECTOR Office Visit [facility] Family & Internal Medicine - [address] [phone] Sami Liriano DO [address] [place] [address] documented as of this encounter Procedures Procedure Name Priority Date/Time Associated Diagnosis Comments CORONAVIRUS (COVID 19) PCR Routine 05/25/2021 8:02 PM CDT Dyspnea on exertion documented in this encounter Results * CORONAVIRUS (COVID 19) PCR ([facility]) (05/25/2021 8:02 PM CDT) SPEC DESCRIPTION NASAL 05/25/20 8:02 PM CDT [facility] CORONAVIRUS SARS COV 2 PCR (RESP) NEGATIVE NEGATIVE 05/27/2021 4:07 AM CDT [facility] Comment: THE SARS-CoV-2 TEST HAS BEEN AUTHORIZED BY THE FDA UNDER AN EUA FOR USE BY AUTHORIZED LABORATORIES. PERFORMED BY NUCLEIC ACID AMPLIFICATION PCR FIRST TEST YES 05/25/2021 8:02 PM CDT [facility] EMPLOYED IN HEALTHCARE NO 05/25/2021 8:02 PM CDT [facility] SYMPTOMATIC DEFINED BY CDC YES 05/25/2021 8:02 PM CDT [facility] DATE OF SYMPTOM ONSET 2021051105/25/2021 8:02 PM CDT [facility] HOSPITALIZATION STATUS NO 05/25/2021 8:02 PM CDT [facility] PATIENT IN ICU NO 05/25/2021 8:02 PM CDT [facility] RESIDENT OF [facility] NO 05/25/2021 8:02 PM CDT [facility] NASOPHARYNGEAL SWAB / Unknown 05/25/2021 8:02 PM CDT Sami Liriano DO MICROBIOLOGY - GENERAL O RDERABLES Final Result Performing Organization Address City/State/[facility] Co de Phone Number [facility] [address] [place] [address], documented in this encounter Visit Diagnoses Diagnosis Dyspnea on exertion Other dyspnea and respiratory abnormality documented in this encounter Additional Health Concerns Infection Onset Date Last Indicated Resolved Time COVID-19 Rule Out 05/25/2021 05/25/2021 05/27/2021 4:08 AM CDT Assessment Noted Time PHQ-9 Depression Total Score: 12 12/15/2 021 8:10 AM CDT documented as of this encounter Care Teams Vascular Neurologist Relationship Specialty Start Date End Date Sami Liriano DO [address] [place] [address] PCP - General FAMILY PRACTICE 12/24/19 documented as of this encounter
--- OUTSIDE RECORDS SUMMARY | 2024-09-19 12:23 | XMS_ITS | Encounter Summary ---
Author Organization [facility] Address [address] [place] [address]. 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 Patient asked about covid PCR/AB test results. Patient informed still in process. * Shabana Pendleton - 05/26/2021 12:45 PM CDT She returned call and is waiting for call back * Radha Oglesby MA - 05/26/2021 12:39 PM CDT lmtc 05/26/21 * Radha Oglesby MA - 05/26/2021 12:39 PM CDT ----- Message from Sami Liriano DO sent at 05/25/2021 9:33 PM CDT ----- No notable findings on CXR. Continue with plan discussed in office. documented in this encounter Plan of Treatment Upcoming Encounters Date Type Department Care Team (Late st Contact Info) Description 10/09/2024 9:30 AM COIL PLACER Office Visit [facility]-[address] [phone] Carlos Farris MD [facility] [address] [place] [address] 11/02/2024 10:20 AM COIL PLACER Office Visit [facility] Family & Internal Medicine - [address] [phone] Sami Liriano DO [address] [place] [address] documented as of this encounter Visit Diagnoses Not on filedocumented in this encounter Additional Health Concerns Infection Onset Date Last Indicated Resolved Time COVID-19 Rule Out 05/25/2021 05/25/2021 05/27/2021 4:08 AM CDT Assessment Noted Time PHQ-9 Depression Total Score: 12 12/15/ 021 8:10 AM CDT documented as of this encounter Care Teams Missile Inspector Relationship Specialty Start Date End Date Sami Liriano DO [address] [place] [address] PCP - General FAMILY PRACTICE 12/24/19 documented as of this encounter
--- OUTSIDE RECORDS SUMMARY | 2024-09-19 12:23 | XMS_ITS | Encounter Summary ---
Author Organization [facility] Address [facility]. [place], [place] [address] [place] [address] Care Team Providers Care Hub Cutter Name Role Phone RomeofroylanSami lozoya Nicole AGUIAR Primary Care Provider + Reason for Referral * Imaging (Routine) - Closed Specialty Diagnoses / Procedures Referred By Shereen benton Referred To Contact RADIOLOGY Diagnoses Sleep disturbance Edema SOB (shortness of breath) High blood pressure MOR (obstructive sleep apnea) Procedures NM EXER NUC STRESS TEST 2DAY NM EXER NUC STRESS TEST 1DAY Cecilio Dewitt MD [address] [address] Phone: tel: fax: Referral ID Status Reason Start Date Expiration Date Visits Re quested Visits Authorized [id number] Closed 06/16/2021 07/17/2022 2 2 * Sleep Lab (Routine) - Closed Specialty Diagnoses / Procedures Referred By Shereen benton Referred To Contact Cardiology Diagnoses Sleep disturbance Edema SOB (shortness of breath) High blood pressure MOR (obstructive sleep apnea) Procedures Diagnostic PSG (40914, 25364) Cecilio Dewitt MD 3 [facility] [address] [place] [address] Phone: tel: fax: [facility] ld [address] [place] [address] Phone: tel: fax: Referral ID Status Reason Start Date Expiration Date Visits Re quested Visits Authorized [id number] Closed 06/16/2021 09/21/2021 1 1 * Imaging (Routine) - Closed Specialty Diagnoses / Procedures Referred By Contac t Referred To Contact RADIOLOGY Diagnoses Sleep disturbance Edema SOB (shortness of breath) High blood pressure MOR (obstructive sleep apnea) Procedures USV VENOUS REFLUX LOW HAN Cecilio Dewitt MD 3 [facility] [address] [place] [address] Phone: tel: fax: Referral ID Status Reason Start Date Expiration Date Visits Re quested Visits Authorized [id number] Closed 06/16/2021 07/17/2022 1 1 Encounter Details Date Type Department Care Team (Late st Contact Info) Description 06/16/2021 Orders Only [facility] THREE [facility], [address] [address] Cecilio Dewitt MD [address] [phone] Social History Tobacco Use Types Packs/Day [...] on file Legal Sex Female 12:43 PM MAC DEVELOPER Gender Identity Female 12/18/2021 6:31 AM [...] st Contact Info) Description 10/09/2024 9:30 AM MAC DEVELOPER Office Visit [facility] [phone] Carlos Farris MD [facility] [address] [place] [address] 11/02/2024 10:20 AM MAC DEVELOPER Office Visit [facility] Family & Internal Medicine [address] [phone] Sami Liriano DO [address] [place], [place] [phone] documented as of this encounter Results * NM EXER NUC STRESS TEST 2DAY (07/17/2021 12:39 PM CDT) Anatomical Region Laterality Modality Cardiac Nuclear Medicine 07/17/2021 10:4 9 AM CDT Narrative 07/17/2021 12:42 PM CDT ? Myocardial Perfusion Imaging ? Pat.Name: ??DAYAN, HAIR L ?Pat.ID: ?[id number] ? St.Date: ?? 07/17/2021 ?Refer.MD: ??Heri ? Exam Time: 10:49:00 AM ? Study Type:KATIE NC HT MUSCLE IMAGE SPECT MULTI Height: ?60in ?Weight: ?250lb ? BSA: ? 2.05 m2 ?Age: ??1955,66Y ? Sex: ? FEMALE ?Sonogrphr: Krystyna Merrill, TERRAZZO FINISHER ? Pat. Stat.:Outpatient ? Reason for Study: [...] ?O2 Sat ? 100 % Max RPP ?23835 ? Symptoms and Complications: Terminated Protocol completed Symptoms ?? Shortness of breath, Dizziness, Leg fatigue, Nausea Complications None Other ?Patient was scheduled for a treadmill test but was unable to reach target heartrate, therefore test was switched to Lexiscan. Stress ECG Interp No significant changes Signed 07/17/2021 12:42 PM Cecilio Dewitt M.D. Procedure Note Cecilio Dewitt MD - 07/17/2021 Myocardial Perfusion Imaging Pat.Name: HAIR SARGENT Pat.ID: [id number] .Date: 07/17/2021 Refer.MD: Heri Exam Time: 10:49:00 AM Study Type:KATIE [...] 150/80 O2 Sat 100 % Max RPP 73511 Symptoms and Complications: Terminated Protocol completed Symptoms Shortness of breath, Dizziness, Leg fatigue, Nausea Complications None Other Patient was scheduled for a treadmill test but was unable to reach target heartrate, therefore test was switched to Lexiscan. Stress ECG Interp No significant changes Signed 07/17/2021 12:42 PM Cecilio Dewitt M.D. us Cecilio Dewitt MD NUC MED Final Result * USV VENOUS REFLUX LOW HAN (07/17/2021 8:23 AM CDT) Anatomical Region Laterality Modality Extremity Vascular Ultraso und 07/17/2021 7:47 AM CDT Narrative 07/17/2021 10:11 AM CDT ?VENOUS DUPLEX IMAGING ?BILATERAL LOWER EXTREMITY ? VASCULAR LAB Pat.Name: ??HAIR SARGENT ?Pat.ID: ?[id number] ? St.Date: ?? 07/17/2021 ?Refer.: ??Sami Liriano [...] IMAGING BILATERAL LOWER EXTREMITY VASCULAR LAB Pat.Name: LEOBARDOHAIR Farris Pat.ID: [id number] .Date: 07/17/2021 Refer.MD: Sami Liriano Exam Time: 7:47:00 AM Study Type:KATIE VS Venous Duplex Legs HAN Height: 59in Age: 5 1955,66Y Sex: FEMALE Sonogrphr: Eloy Thorpe, ALENA Pat. Stat.:Outpatient History / Clinical: LE edma; [...] Signed 07/17/2021 10:11 AM Crystal Ward M.D. Cecilio Dewitt MD [facility] Final Result * Diagnostic PSG (39968, 53298) (07/01/2021 8:00 PM CDT) Narrative [facility] - 07/01/2021 8:00 PM CDT Neto Shelby MD ? 07/05/2021 ??2:38 PM [facility] O? [place] SPLI NIGHT POLYSOMNOGRAM INTERPRETATION PATIENT NAME: HAIR SARGENT DATE OF : 1955 DATE OF SERVICE: 07/01/2021 PATIENT TYPE: CLI Ordering Phy Exam Description CECILIO DEWITT MD SL PSG 4+PARAMETERS W/CPAP ATTENDING PHYSICIAN: Neto Shelby MD REFERRING PHYSICIAN: CECILIO DEWITT MD GENERAL INFORMATION Total Sleep Time: [...] snoring and other sleep-related issues, such as HACK SAW OPERATOR depressants, especially at bedtime. This document was electronically signed by: Neto Shelby M.D. on 07/05/2021 at 9:08 AM. us Cecilio Dewitt MD SLEEP CENTER ORDERABLES Final Result [facility] [address] [place] [address], [place] [phone] documented in this encounter Visit Diagnoses Diagnosis Sleep disturbance- Primary Sleep disturbance, unspecified Edema SOB (shortness of breath) Shortness of breath High blood pressure Unspecified essential hypertension MOR (obstructive sleep apnea) Obstructive sleep apnea (adult) (pediatric) Sleep disturbance Sleep disturbance, unspecified Edema SOB (shortness of breath) Shortness of breath High blood pressure Unspecified essential hypertension MOR (obstructive sleep apnea) Obstructive sleep apnea (adult) (pediatric) Sleep disturbance Sleep disturbance, unspecified Edema SOB (shortness of breath) Shortness of breath High blood pressure Unspecified essential hypertension MOR (obstructive sleep apnea) Obstructive sleep apnea (adult) (pediatric) documented in this encounter Additional Health Concerns Assessment Noted Time PHQ-9 Depression Total Score: 12 021 8:10 AM CDT documented as of this encounter Care Teams Hub Cutter Relationship Specialty Start Date End Date Sami Liriano DO [address] [place] [address] PCP - General FAMILY PRACTICE 12/24/19 documented as of this encounter
--- OUTSIDE RECORDS SUMMARY | 2024-09-19 12:23 | XMS_ITS | Encounter Summary ---
Author Organization [facility] Address [facility]. [place], [place] [address] [place] [address] Care Team Providers Care Information Services Assistant Name Role Phone Sami Liriano Primary Care Provider + Encounter Details Date Type Department Care Team (Latest Contact Info) Description 06/14/2021 Travel Social History Tobacco Use Types Packs/Day [...] on file Legal Sex Female 12:43 PM LOAN BROKER Gender Identity Female 12/18/2021 6:31 AM CDT [...] have Coronavirus / COVID-19? No / Unsure 06/14/2021 9:25 AM CDT documented as of this encounter Plan of Treatment Upcoming Encounters Date Type Department Care Team (Late st Contact Info) Description 10/09/2024 9:30 AM LOAN BROKER Office Visit [facility] [phone] Carlos Farris MD Three [facility] [address] [place] [address] 11/02/2024 10:20 AM LOAN BROKER Office Visit [facility] Family & Internal Medicine - [address] [phone] Sami Liriano DO [address] [place] [address] documented as of this encounter Visit Diagnoses Not on filedocumented in this encounter Additional Health Concerns Assessment Noted Time PHQ-9 Depression Total Score: 12 12/15/2 021 8:10 AM CDT documented as of this encounter Care Teams Information Services Assistant Relationship Specialty Start Date End Date Sami Liriano DO [address] [place] [address] PCP - General FAMILY PRACTICE 12/24/19 documented as of this encounter
--- OUTSIDE RECORDS SUMMARY | 2024-09-19 12:23 | XMS_ITS | Encounter Summary ---
Author Organization [facility] Address [address] [place] [address]. [place], [place] [phone] [place] [address] Care Team Providers Care Can Runner Name Role Phone Sami Liriano DO Primary Care Provider + Reason for Visit * Reason Onset Date Comments Follow Up Call 05/19/2021 Encounter Details Date Type Department Care Team (Late st Contact Info) Description 05/19/2021 Telephone [facility] Family & Internal Medicine [facility] [address] [place] [phone] Sami Liriano DO [facility]1 [place], [place] [phone] Follow Up Call Social History Tobacco Use [...] on file Legal Sex 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 No / Unsure 05/18/2021 11:52 AM CDT documented as of this encounter Progress Notes * Deb Varela RN - 05/19/2021 12:30 PM CDT noted * Delores Abreu - 05/19/2021 11:29 AM CDT Patient called back in stating that she is currently at an urgent care right now. They are going todo an EKG and a chest x ray. * Deb Varela RN - 05/19/2021 11:19 AM CDT Attempted to call the patient, was unable to reach them at this time. Left a message requesting a call back. LL-05/19/21 * Deb Varela RN - 05/19/2021 11:18 AM CDT Please ensure she did go tomorrow. Call only if no evidence that she did go. ----- Message ----- From: Deb Varela RN Sent: 05/18/2021 2:53 PM CDT To: Sami Liriano, DO ----- Message from Deb Varela RN sent at 05/18/2021 2:53 PM CDT ----- Just thought you should know. Let me know if you would like me to do anything else. documented in this encounter Plan of Treatment Upcoming Encounters Date Type Department Care Team (Late st Contact Info) Description 10/09/2024 9:30 AM ELECTRICAL SYSTEMS DESIGN ENGINEER Office Visit [facility] [phone] Carlos Farris MD [address] [facility] [address] [place] [address] 11/02/2024 10:20 AM ELECTRICAL SYSTEMS DESIGN ENGINEER Office Visit [facility] Family & Internal Medicine - [address] [phone] Sami Liriano DO [address] [place] [address] documented as of this encounter Visit Diagnoses Not on filedocumented in this encounter Additional Health Concerns Assessment Noted Time PHQ-9 Depression Total Score: 12 2 021 8:10 AM CDT documented as of this encounter Care Teams Can Runner Relationship Specialty Start Date End Date Sami Liriano DO [address] [place] [address] PCP - General FAMILY PRACTICE 12/24/19 documented as of this encounter
--- OUTSIDE RECORDS SUMMARY | 2024-09-19 12:23 | XMS_ITS | Encounter Summary ---
Author Organization [facility] Address [facility]6 [facility]. 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 Gender Identity Female 12/18/2021 6:31 AM CDT [...] st Contact Info) Description 10/09/2024 9:30 AM MARINE FIRE FIGHTER Office Visit [facility] [phone] Carlos Farris MD Three [facility] [address] [place] [address] 11/02/2024 10:20 AM MARINE FIRE FIGHTER Office Visit [facility] Family & Internal Medicine - [address] [phone] Sami Liriano DO [address] [place] [address] documented as of this encounter Procedures Procedure Name Priority Date/Time Associated Diagnosis Comments IMAGE GENERIC 05/19/2021 documented in this encounter Results * IMAGE GENERIC (05/19/2021) Anatomical Region Laterality Modality Other 05/19/2021 Narrative 05/19/2021 Ordered by an unspecified provider. us Documents Scanned SCANNING Final Result documented in this encounter Visit Diagnoses Not on filedocumented in this encounter Additional Health Concerns Infection Onset Date Last Indicated Resolved Time COVID-19 Rule Out 05/25/2021 05/25/2021 05/27/2021 4:08 AM CDT Assessment Noted Time PHQ-9 Depression Total Score: 12 12/15/2 021 8:10 AM CDT documented as of this encounter Care Teams Spa Host Relationship Specialty Start Date End Date Sami Liriano DO [address] [place] [phone] PCP - General FAMILY PRACTICE 12/24/19 documented as of this encounter
--- OUTSIDE RECORDS SUMMARY | 2024-09-19 12:23 | XMS_ITS | Encounter Summary ---
Author Organization [facility] Address [address] [place] [address]. [place], [place] [address] [place] [address] Care Team Providers Care Centrifuge Separator Operator Name Role Phone Sami Liriano DO Primary Care Provider + Reason for Visit * Reason Onset Date Comments Appointment Request 05/30/2021 SOLUTION MIXER Cardiolog y Consult Encounter Details Date Type Department Care Team (Late st Contact Info) Description 05/30/2021 Telephone [facility] THREE [address] [phone] Sami Liriano DO [address] [place] [address] Appointment Request (SOLUTION MIXER Cardiology Consult) Social History Tobacco Use Types Packs/Day Years [...] on file 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 Sami Liriano (x1) documented in this encounter Plan of Treatment Upcoming Encounters Date Type Department Care Team (Late st Contact Info) Description 10/09/2024 9:30 AM PAINTER AND DECORATOR Office Visit [facility] [phone] Carlos Farris MD Three [facility] [address] [place] [address] 11/02/2024 10:20 AM PAINTER AND DECORATOR Office Visit [facility] Family & Internal Medicine - [address] [phone] Sami Liriano DO [address] [place] [address] documented as of this encounter Visit Diagnoses Not on filedocumented in this encounter Additional Health Concerns Assessment Noted Time PHQ-9 Depression Total Score: 12 021 8:10 AM CDT documented as of this encounter Care Teams Centrifuge Separator Operator Relationship Specialty Start Date End Date Sami Liriano DO [address] [place] [address] PCP - General FAMILY PRACTICE 12/24/19 documented as of this encounter
--- OUTSIDE RECORDS SUMMARY | 2024-09-19 12:23 | XMS_ITS | Encounter Summary ---
Author Organization [facility] Address [address] [place] [address]. [place], [place] [address] [place] [address] Care Team Providers Care Fondant Machine Operator Name Role Phone Sami Liriano DO Primary Care Provider + Reason for Visit * Reason Onset Date Comments Results 05/29/2021 Covid Encounter Details Date Type Department Care Team (Late st Contact Info) Description 05/29/2021 Telephone [facility] Family & Internal Medicine [facility] [address] [place] [phone] Sami Liriano DO [facility] [place] [address] Results (Covid) Social History Tobacco Use Types Packs/Day Years [...] on file Legal Sex Female 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 * Kelsi Marcus RRT - 05/29/2021 8:55 AM CDT Pt notified PCR was negative and pending results on the antibodies test. She wants to know if she can go back to work now? * Kelsi Marcus RRT - 05/29/2021 8:55 AM CDT ----- Message from Sami Liriano DO sent at 05/28/2021 1:23 PM CDT ----- Negative documented in this encounter Plan of Treatment Upcoming Encounters Date Type Department Care Team (Late st Contact Info) Description 10/09/2024 9:30 AM EVENT COORDINATOR MARKETING AND SALES Office Visit [facility] [phone] Carlos Farris MD [facility] [address] [place] [address] 11/02/2024 10:20 AM EVENT COORDINATOR MARKETING AND SALES Office Visit [facility] Family & Internal Medicine - [address] [phone] Sami Liriano DO [address] [place] [address] documented as of this encounter Visit Diagnoses Not on filedocumented in this encounter Additional Health Concerns Assessment Noted Time PHQ-9 Depression Total Score: 12 12/15/ 021 8:10 AM CDT documented as of this encounter Care Teams Fondant Machine Operator Relationship Specialty Start Date End Date Sami Liriano DO [address] [place] [address] PCP - General FAMILY PRACTICE 12/24/19 documented as of this encounter
--- OUTSIDE RECORDS SUMMARY | 2024-09-19 12:23 | XMS_ITS | Encounter Summary ---
Author Organization [facility] Address [address] [place] [address]. [place], [place] [address] [place] [address] Care Team Providers Care Group Segment Consultant Name Role Phone Sami Liriano DO Primary Care Provider + Reason for Visit * Reason Onset Date Comments Lab Results 05/31/2021 Encounter Details Date Type Department Care Team (Late st Contact Info) Description 05/31/2021 Telephone [facility] Family & Internal Medicine [facility] [address] [place] [phone] Sami Liriano DO [facility] [place] [address] Lab Results Social History Tobacco [...] on file Legal Sex Female 12:43 PM BI SPECIALIST Gender Identity Female 12/18/2021 6:31 AM [...] Progress Notes * Melanie Lance MA - 05/31/2021 12:53 PM CDT Patient contacted,informed of results. Appt scheduled tn * Melanie Lance MA - 05/31/2021 12:50 PM CDT ----- Message from Sami Liriano DO sent at 05/30/2021 8:03 AM CDT ----- No evidence of previous COVID infection or protection. Other lab looks okay. F/u in office as was recommended (2 weeks, don't see that she's scheduled). documented in this encounter Plan of Treatment Upcoming Encounters Date Type Department Care Team (Late st Contact Info) Description 10/09/2024 9:30 AM BI SPECIALIST Office Visit [facility]-[address] [phone] Carlos Farris MD Three [facility] [address] Suite [facility] [place] [address] 11/02/2024 10:20 AM BI SPECIALIST Office Visit [facility] Family & Internal Medicine - [address] [phone] Sami Liriano DO [address] [place] [address] documented as of this encounter Visit Diagnoses Not on filedocumented in this encounter Additional Health Concerns Assessment Noted Time PHQ-9 Depression Total Score: 12 021 8:10 AM CDT documented as of this encounter Care Teams Group Segment Consultant Relationship Specialty Start Date End Date Sami Liriano DO [address] [place] [address] PCP - General FAMILY PRACTICE 12/24/19 documented as of this encounter
--- OUTSIDE RECORDS SUMMARY | 2024-09-19 12:23 | XMS_ITS | Encounter Summary ---
Author Organization [facility] Address [facility]. [place], [place] [id number] [place] [id number] Care Team Providers Care Nurse Monitoring Name Role Phone Tracy Gimenez DO Primary Care Provider + Reason for Referral * Consultation (Routine) - Closed Specialty Diagnoses / Procedures Referred By Contleydi t Referred To Contact CARDIOLOGY / Cardiology Diagnoses Dyspnea on exertion Procedures OV Tracy Gimenez DO [address] [place] [address] Phone: tel: fax: Erik Bowling MD [address] [place] [phone] Phone: tel: fax: Referral ID Status Reason Start Date Expiration Date V isits Requested Visits Authorized [id number] Closed Specialty Services 06/15/2021 06/14/2022 6 6 Reason for Visit * Reason Comments Follow Up [facility] Encounter Details Date Type Department Care Team (Late st Contact Info) Description 05/25/2021 9:40 AM CDT Office Visit [facility] Family & Internal Medicine 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 Gender Identity Female 12/18/2021 6:31 AM CDT [...] Sign Reading Time Taken Comments Blood Pressure 126/60 05/25/2021 9:43 AM CDT Pulse 59 05/25/2021 9:43 AM CDT Temperature 36.7 ??C (98.1 ??F) 05/25/2021 9:43 AM CD T Respiratory Rate 18 05/25/2021 9:43 AM CDT Oxygen Saturation 96% 05/25/2021 9:43 AM CDT Inhaled Oxygen Concentration - - Weight 113.2 kg (249 lb 8 oz) 05/25/2021 9:43 AM CDT Height 152.4 cm (5') 05/25/2021 9:43 AM CDT Body Mass Index 48.73 05/25/2021 9:43 AM CDT documented in this encounter Progress Notes * Tracy Gimenez DO - 05/25/2021 9:40 AM CDT Images from the original note were not included. GENERAL OFFICE VISIT Encounter Date: 05/25/2021 Chief Complaint: 66-year-old female presents for Follow Up ([facility] ) HPI: Pt presents for ER follow-up. Of note, full records are not available at time of writing. Pt went to ER on 05/19/21. Pt had been recommended to go to ER on 05/18/21 for diaphoresis and pitting edema.She told ER she went for pneumonia. They did EKGs and blood tests which didn't show any acute pathology. She also had a negative D-Dimer. She was given furosemide at my direction to see if this improved her symptoms. Pt does have a headache as well. She states she has more issues when she is walking in situations when it did not before. It's worse in the heat, but it is not as bad when it's colder. She also notes she has lost her taste; this seems to have occurred in the past month. She notes she feels some improvement today. She has lost about 5 lbs over the course of a week. Chlorthalidone was also increased, which is being used predominantly to treat her HTN. Review of Systems Constitutional: Negative for fever. Respiratory: See HPI Cardiovascular: See HPI Gastrointestinal: Negative for abdominal pain. Patient Active Problem List Diagnosis ??? Alopecia ??? Essential hypertension ??? Arthritis of left knee ??? GERD (gastroesophageal reflux disease) ??? Overactive bladder ??? Depression ??? Pharyngoesophageal dysphagia ??? Positive colorectal cancer screening using Cologuard test Past Medical History: Diagnosis Date ??? Arthritis ??? Arthritis of left knee 11/08/2019 ??? Depression ??? GERD (gastroesophageal reflux disease) ??? Hypertension ??? Overactive bladder Past Surgical History: Procedure Laterality Date ??? ANKLE SURGERY left ??? SECTION ??? COLONOSCOPY N/A 04/27/2020 COLONOSCOPY WITH BIOPSY X 3 performed by Joel Keenan MD at [facility] OR ??? EGD ??? HERNIA REPAIR ??? [...] Not on file ??? Number of children: Not on file ??? Years of education: Not on file ??? Highest education level: Not on file Occupational History ??? 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 Smoking status: Former Smoker Packs/day: 1.00 Years: 12.00 Pack years: 12.00 Types: Cigarettes Quit date: 1976 Years since quittin.6 ??? Smokeless tobacco: Never Used Substance and Sexual Activity ??? Alcohol use: Not Currently Comment: 2 cocktails on some Sundays ??? Drug use: Never ??? Sexual activity: Not on file Other Topics Concern ??? Not on file Social History Narrative ??? Not on file Social Determinants of Health Financial Resource Strain: ??? Difficulty of Paying Living Expenses: Food Insecurity: ??? Worried About Running Out of Food in the Last Year: ??? Ran Out of Food in the Last Year: Transportation Needs: ??? Lack of Transportation (Medical): ??? Lack of Transportation (Non-Medical): Physical Activity: ??? Days of Exercise per Week: ??? Minutes of Exercise per Session: Stress: ??? Feeling of Stress : Social Connections: ??? Frequency of Communication with Friends and Family: ??? Frequency of Social Gatherings with Friends and Family: ??? Attends Temple Services: ??? Active Member of Clubs or Organizations: ??? Attends Club or Organization Meetings: ??? Marital Status: Intimate Partner Violence: ??? Fear of Current or Ex-Partner: ??? Emotionally Abused: ??? Physically Abused: ??? Sexually Abused: Immunization History Administered Date(s) Administered ??? Dtap 06/30/2011 ??? Pneumococcal (Prevnar 13) 09/05/2020 Current Outpatient Medications Medication Sig Dispense Refill ??? acetaminophen 325 MG tablet Take 325 mg by mouth. Take 2 in the am and 2 tabs in the pm and 1 PRN ??? albuterol sulfate HFA 108 (90 Base) MCG/ACT inhaler ??? ATORVASTATIN 10 MG tablet TAKE 1 TABLET BY MOUTH EVERYDAY AT BEDTIME 90 tablet 1 ??? CHLORTHALIDONE 25 MG tablet TAKE 1 TABLET BY MOUTH EVERY DAY (Patient taking differently: 2 (two) times a day. ) 90 tablet 1 ??? escitalopram 20 MG tablet Take 20 mg by mouth daily. ??? furosemide 20 MG tablet Take 2 tablets (40 mg total) by mouth daily. 180 tablet 3 ??? LISINOPRIL 40 MG tablet TAKE 1 TABLET BY MOUTH EVERY DAY 90 tablet 1 ??? OXYBUTYNIN XL 5 MG 24 hr tablet TAKE 1 TABLET BY MOUTH EVERY DAY 90 tablet 1 ??? potassium chloride CR 10 MEQ Tab CR tablet TAKE 1 TABLET BY MOUTH EVERY DAY 90 tablet 1 ??? tiotropium 2.5 MCG/ACT inhaler (SPIRIVA RESPIMAT) Inhale 2 puffs into the lungs daily. Please provide assembled. ??? traMADol 50 MG tablet Take 1 tablet (50 mg total) by mouth every 6 (six) hours as needed for Pain. Indications: Chronic Pain 60 tablet 0 ??? omeprazole 40 MG capsule Take 1 capsule (40 mg total) by mouth daily. 90 capsule 1 No current facility-administered medications for this visit. Current Outpatient Medications on File Prior to Visit Medication Sig ??? acetaminophen 325 MG tablet Take 325 mg by mouth. Take 2 in the am and 2 tabs in the pm and 1 PRN ??? albuterol sulfate HFA 108 (90 Base) MCG/ACT inhaler ??? ATORVASTATIN 10 MG tablet TAKE 1 TABLET BY MOUTH EVERYDAY AT BEDTIME ??? CHLORTHALIDONE 25 MG tablet TAKE 1 TABLET BY MOUTH EVERY DAY (Patient taking differently: 2 (two) times a day. ) ??? escitalopram 20 MG tablet Take 20 mg by mouth daily. ??? furosemide 20 MG tablet Take 2 tablets (40 mg total) by mouth daily. ??? LISINOPRIL 40 MG tablet TAKE 1 TABLET BY MOUTH EVERY DAY ??? OXYBUTYNIN XL 5 MG 24 hr tablet TAKE 1 TABLET BY MOUTH EVERY DAY ??? potassium chloride CR 10 MEQ Tab CR tablet TAKE 1 TABLET BY MOUTH EVERY DAY ??? tiotropium 2.5 MCG/ACT inhaler (SPIRIVA RESPIMAT) Inhale 2 puffs into the lungs daily. Please provide assembled. ??? traMADol 50 MG tablet Take 1 tablet (50 mg total) by mouth every 6 (six) hours as needed for Pain. Indications: Chronic Pain ??? omeprazole 40 MG capsule Take 1 capsule (40 mg total) by mouth daily. No current facility-administered medications on file prior to visit. Allergies Allergen Reactions ??? Penicillins Rash ??? Sulfa Antibiotics Rash Objective: Filed Vitals: 05/25/21 0943 BP: 126/60 Pulse: 59 Resp: 18 Temp: 98.1 ??F (36.7 ??C) TempSrc: Skin SpO2: 96% Weight: 113.2 kg (249 lb 8 oz) Height: 5' (1.524 m) Physical Exam Constitutional: She is oriented to person, place, and time. Overweight, no acute distress HENT: Head: Normocephalic and atraumatic. Right Ear: External ear normal. Left Ear: External ear normal. Eyes: Conjunctivae are normal. No scleral icterus. Cardiovascular: Normal rate, regular rhythm and normal heart sounds. Exam reveals no gallop and no friction rub. No murmur heard. Pulmonary/Chest: Effort normal. Mild crackles B/L Abdominal: Soft. There is no abdominal tenderness. Musculoskeletal: General: No edema. Cervical back: Neck supple. Neurological: She is alert and oriented to person, place, and time. Skin: Skin is warm and dry. No rash noted. Psychiatric: Mood and affect normal. Nursing note and vitals reviewed. Assessment & Plan: Jolly was seen today for follow up. Diagnoses and all orders for this visit: Dyspnea on exertion - Ambulatory referral to Cardiology, Adult ([facility]) - CORONAVIRUS (COVID 19) PCR ([facility]); Future - XR CHEST PA+LAT; Future Essential hypertension - BASIC METABOLIC PANEL; Future - VENIPUNC ARM DRAW Loss of taste - SARS-COV-2 ANTIBODY (IGG), SPIKE, SEMI-QUANTITATIVE; Future Discussion/Summary: Concern for heart related issue versus Covid related issue versus rheumatological issue. Will request records from [facility]. Continue increased doses of furosemide and chlorthalidone. Will order testing as per above given patient's atypical timing of symptoms. Will order chest x-ray as well. Will re trena to cardiology given symptoms. Follow-up with rheumatology as scheduled. Will have patient follow-up in 2 weeks for reassessment. Patient verbalized understanding. I spent 30 minutes today reviewing the patient's medical record, obtaining history, performing an exam, ordering medications, tests, and/or procedures, documenting in the medical record, referring and/or communicating with other health care providers and counseling and educating the patient/family/caregiver. Tracy Gimenez DO Addendum 06/14/21 2235: Clarified diagnoses with note about chlorthalidone added to HPI. 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 Office Visit [facility] Family & Internal Medicine - [address] [phone] Tracy Gimenez DO [address] [place] [address] Scheduled Referrals Name Type Priority Associated Diagnoses Orde r Schedule Ambulatory referral to Cardiology, Adult ([facility]) Referral Routine Dyspnea on exertion Ordered: 05/25/2021 documented as of this encounter Procedures Procedure Name Priority Date/Time Associated Diagnosis Comments SARS-COV-2 TOTAL ANTIBODY, SPIKE, SEMI-QUANTITATIVE Routine 05/25/2021 10:32 AM CDT Loss of taste BASIC METABOLIC PANEL Routine 05/25/2021 10:31 AM CDT Essential hypertension VENIPUNC ARM DRAW Routine 05/25/2021 10: 21 AM CDT Essential hypertension documented in this encounter Results * CORONAVIRUS (COVID 19) PCR ([facility]) (05/25/2021 8:02 PM CDT) SPEC DESCRIPTION NASAL 05/25/20 8:02 PM CDT [facility] CORONAVIRUS SARS COV 2 PCR (RESP) NEGATIVE NEGATIVE 05/27/2021 4:07 AM CDT [facility] Comment: THE SARS-CoV-2 TEST HAS BEEN AUTHORIZED BY THE FDA UNDER AN EUA FOR USE BY AUTHORIZED LABORATORIES. PERFORMED BY NUCLEIC ACID AMPLIFICATION PCR FIRST TEST YES 05/25/2021 8:02 PM CDT [facility] EMPLOYED IN HEALTHCARE NO 05/25/2021 8:02 PM CDT [facility] SYMPTOMATIC DEFINED BY CDC YES 05/25/2021 8:02 PM CDT [facility] DATE OF SYMPTOM ONSET [id number]/25/2021 8:02 PM CDT [facility] HOSPITALIZATION STATUS NO 05/25/2021 8:02 PM CDT [facility] PATIENT IN ICU NO 05/25/2021 8:02 PM CDT [facility] RESIDENT OF [facility] C[facility] NO 05/25/2021 8:02 PM CDT [facility] NASOPHARYNGEAL SWAB / Unknown 05/25/2021 8:02 PM CDT us Tracy Gimenez DO MICROBIOLOGY - GENERAL O RDERABLES Final Result [facility] [address] [place] [address], * XR CHEST PA+LAT (05/25/2021 10:43 AM CDT) Anatomical Region Laterality Modality Chest Radiographic Jody ging 05/25/2021 10:4 5 AM CDT Impressions 05/25/2021 10:46 AM CDT IMPRESSION: No active chest disease Referred By: TRACY GIMENEZ Interpreted By: Abner Zamora MD, 05/25/2021 10:45 AM Narrative 05/25/2021 10:46 AM CDT EXAM DESCRIPTION: Chest 2 views EXAM TIME : 05/25/2021 10:29 AM COMPARISON FILM : 03/01/2021 INDICATION: Dyspnea on exertion. TECHNIQUE: ??Chest- 2 - views, 2 - images FINDINGS: Heart and mediastinum are within normal limits. Lungs clear of active disease. No consolidation, CHF or effusions. No acute bony abnormality. Procedure Note Abner Zamora MD - 05/25/2021 EXAM DESCRIPTION: Chest 2 views EXAM TIME : 05/25/2021 10:29 AM COMPARISON FILM : 03/01/2021 INDICATION: Dyspnea on exertion. TECHNIQUE: Chest- 2 - views, 2 - images FINDINGS: Heart and mediastinum are within normal limits. Lungs clear of activedisease. No consolidation, CHF or effusions. No acute bony abnormality. IMPRESSION: No active chest disease Referred By: TRACY GIMENEZ Interpreted By: Abner Zamora MD, 05/25/2021 10:45 AM Tracy Gimenez DO GENERAL IMAGING Final Re sult * SARS-COV-2 ANTIBODY (IGG), SPIKE, SEMI-QUANTITATIVE (05/25/2021 10:32 AM CDT) COVID 19 AB IgG SPIKE,SEMI QN <1.00 <1.00 Index 05/29/2021 4:22 PM CDT [email or web address] ANTONINA LIZARRAGA Comment: INDEX ?INTERPRETATION ----- ? <1.00 ?Negative > or = 1.00 ?Positive This test is intended to help identify individuals with antibodies to SARS-CoV-2 (COVID-19). The results of this semi-quantitative test should not be interpreted as an indication or degree of immunity or protection from reinfection. A test result that is 1.00 or more (Positive) means antibodies to SARS-CoV-2 were detected in the blood sample by the test. This could mean that the individual may have an immune response to a recent or prior infection with SARS-CoV-2. Positive results may occur after COVID-19 vaccination, but the clinical significance of a positive antibody result for individuals that have received a COVID-19 vaccine is unknown, and the performance of the test has not been established in COVID-19 vaccinees. False positive results for the test may occur due to cross-reactivity from pre-existing antibodies or other possible causes. A test result that is less than 1.00 (Negative) means that antibodies were not detected in the blood sample by the test. This could mean that the individual has not been previously infected with SARS-CoV-2. The clinical significance of a negative antibody result for individuals that have received a COVID-19 vaccine is unknown. The performance of the test has not been established in COVID-19 vaccinees. False negative results for the test may occur if the individual's antibodies have not reached a sufficient level for the test to be able to detect them. Antibodies can take up to two to three weeks (sometimes longer) to develop after someone is infected. ??How long antibodies to SARS-CoV-2 last after infection is not known. This test should not be used to diagnose an active SARS-CoV-2 infection. If an active infection is suspected, direct molecular or antigen testing for SARS -CoV-2 is recommended. Please review the Fact Sheets available for healthcare providers and patients using the following websites: https://www.Bonaverde.com/home/Covid-19/HCP/ antibody/fact-sheet9 https://www.[employer]de.Zango/home/Covid-19/ Patients/antibody/fact-sheet9 Healthcare Providers: For additional information please refer to http://education.Tintri.Zango/ faq/YHG685(This link is being provided for informational/educational purposes only.) This test has been authorized by the FDA under an Emergency Use Authorization(EUA)for use by authorized laboratories. The FDA authorized labeling is available on the [employer] website: www.[place]onaverde. com/Covid19. Test Performed by [facility] [facility], [address] [place] [address] Grzegorz Gomez M.D., Ph.D., Director of Laboratories , [place] [id number] FIRST TEST YES 05/25/2021 10:32 AM CDT [facility] MONTOYA EMPLOYED IN HEALTHCARE NO 05/25/2021 10:32 AM CDT NITHYA [place]TO[place]FIELD SYMPTOMATIC DEFINED BY CDC YES 05/25/2021 10:32 AM CDT [facility] MACKENZIE DATE OF SYMPTOM ONSET [id number]/25/2021 10:32 AM CDT MINE MACKENZIE HOSPITALIZATION STATUS NO 05/25/2021 10:32 AM CDT HETAL TREVIÑO MINE PATIENT IN ICU NO 05/25/2021 10:32 AM CDT CARA TREVIÑO LEADORE RESIDENT OF [facility] NO 05/25/2021 10:32 AM CDT HETAL TREVIÑO MINE UNKNOWN 06/26/2021 3:57 PM CDT [facility] PATIENT'S RACE WHITE OR CAU 05/25/2021 10:32 AM CDT [facility] KAMILA LEADORE ETHNICITY NOT OF HISP 05/25/2021 10:32 AM CDT [facility] SOURCE (QST) UNKNOWN 06/26/2021 3:57 PM CDT [facility] 05/25/2021 10:3 2 AM CDT us Tracy Gimenez DO LABORATORY Final Re sult [facility] TEJ[facility] [address] [place] [address], [employer] [address] [place], [place] , [place] [phone] * (ABNORMAL) BASIC METABOLIC PANEL (05/25/2021 10:31 AM CDT) [facility] SODIUM S/P/B 138 136 - 145 MMOL/L 05/25/2021 9:58 PM CDT [facility] POTASSIUM S/P/B 3.5 3.5 - 5.1 MMOL/L 05/25/2021 9:58 PM CDT [facility] CHLORIDE S/P/B 101 98 - 107 MMOL/L 05/25/2021 9:58 PM CDT [facility] CO2 29.6 21 - 32 MMOL/L 05/25/2021 9:58 PM CDT [facility] GLUCOSE 118(H) 70 - 99 MG/DL 05/25/2021 9:58 PM CDT [facility] BUN 23 6 - 24 MG/DL 05/25/2021 9:58 PM CDT [facility] CREATININE S/P/B 1.02 0.55 - 1.02 MG/DL 05/25/2021 9:58 PM CDT [facility] CALCIUM S/P/B 9.2 8.4 - 10.5 MG/DL 05/25/2021 9:58 PM CDT [facility] ANION GAP 7.4 5 - 15 MMOL/L 05/25/2021 9:58 PM CDT [facility] Comment:REFERENCE RANGE NOT ESTABLISHED OSMOLALITY (CALC) 291 MOSM/KG 05/25/2021 9:58 PM CDT [facility] Comment:REFERENCE RANGE NOT ESTABLISHED EGFR NON-AFR. AMER. 56(L) >90 ML/MIN/1 .73 M2 05/25/2021 9:58 PM CDT [facility] EGFR AFR. AMER. 65(L) >90 ML/MIN/1 .73 M2 05/25/2021 9:58 PM CDT [facility] NITHYA TREVIÑOFIELD GFR NOTES THE ESTIMATED GFR IS CALCULATED USING THE 2009 CKD-EPI EQUATION. THE FOLLOWING CATEGORIES FOR GRADING RENAL FUNCTION ARE RECOMMENDED BY THE INTERNATIONAL SOCIETY OF NEPHROLOGY (KDIGO 2012 CLINICAL PRACTICE GUIDELINE). 05/25/2021 9:58 PM CDT [facility] Comment: G1,NORMAL OR HIGH: >89 ml/min/1.73 m2 G2,MILDLY DECREASED: 60-89 ml/min/1.73 m2 G3A,MILDLY TO MODERATELY DECREASED: 45-59 ml/min/1.73 m2 G3B,MODERATELY TO SEVERELY DECREASED: 30-44 ml/min/1.73 m2 G4,SEVERELY DECREASED: 15-29 ml/min/1.73 m2 G5,KIDNEY FAILURE: <15 ml/min/1.73 m2 05/25/2021 10:3 1 AM CDT Tracy Gimenez DO LABORATORY Final Re sult [facility] [address] [facility] [place] [address], documented in this encounter Visit Diagnoses Diagnosis Dyspnea on exertion- Primary Other dyspnea and respiratory abnormality Essential hypertension Unspecified essential hypertension Loss of taste Disturbances of sensation of smell and taste documented in this encounter Additional Health Concerns Infection Onset Date Last Indicated Resolved Time COVID-19 Rule Out 05/25/2021 05/25/2021 05/27/2021 4:08 AM CDT Assessment Noted Time PHQ-9 Depression Total Score: 12 12/15/ 021 8:10 AM CDT documented as of this encounter Care Teams Nurse Monitoring Relationship Specialty Start Date End Date Tracy Gimenez DO [address] [place] [address] PCP - General FAMILY PRACTICE 12/24/19 documented as of this encounter
--- OUTSIDE RECORDS SUMMARY | 2024-09-19 12:23 | XMS_ITS | Encounter Summary ---
Author Organization [facility] Address [address] [place] [address]. [place], [place] [address] [place] [address] Care Team Providers Care Rental Car Porter Name Role Phone Sami Liriano DO Primary Care Provider + Reason for Visit * Reason Comments Breathing Problem pili er follow u p Edema Encounter Details Date Type Department Care Team (Late st Contact Info) Description 06/14/2021 10:20 AM CDT Office Visit [facility] Family & Internal Medicine [address] [phone] Sami Liriano DO [address] [place] [address] [phone] Breathing Problem (addison er follow up ); Edema Social History Tobacco Use Types Packs/Day [...] on file Legal Sex Female 12:43 PM COMPENSATION AND BENEFITS MANAGER Gender Identity Female 12/18/2021 6:31 AM [...] Sign Reading Time Taken Comments Blood Pressure 130/66 06/14/2021 10:05 AM CDT Pulse 56 06/14/2021 10:05 AM CDT Temperature 36.8 ??C (98.2 ??F) 06/14/2021 1 0:05 AM CDT Respiratory Rate 18 06/14/2021 10:0 5 AM CDT Oxygen Saturation 97% 06/14/2021 10: 05 AM CDT Inhaled Oxygen Concentration - - Weight 113.5 kg (250 lb 4.8 oz) 021 10:05 AM CDT Height 152.4 cm (5') 06/14/2021 10:05 AM CDT Body Mass Index 48.88 06/14/2021 10:05 AM CDT documented in this encounter Progress Notes * Sami Liriano, DO - 06/14/2021 10:20 AM CDT Images from the original note were not included. GENERAL OFFICE VISIT Encounter Date: 06/14/21 Chief Complaint: 66-year-old female presents for Breathing Problem (addison er follow up ) and Edema HPI: Pt presents for short term follow-up for breathing issues. We continued increased diuretics for her dyspnea. We also referred to cardiology. Since then, she has had a chance to see cardiology. Pt still some fluid in her legs still. Her breathing is better atthis time. Pt will see rheumatology in October. Her BP is still controlled today. Review of Systems Constitutional: Negative for fever. [...] 3 performed by Joel Keenan MD at [facility] OR ??? EGD ??? HERNIA [...] Not on file Occupational History ??? 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 Smoking status: Former Smoker Packs/day: 1.00 Years: 12.00 Pack years: 12.00 Types: Cigarettes Quit date: 1976 Years since quittin.7 ??? Smokeless tobacco: Never Used Substance and [...] Gatherings with Friends and Family: ??? Attends Restorationist Services: ??? Active Member of Clubs or [...] MOUTH EVERY DAY 90 tablet 1 ??? omeprazole 40 MG capsule Take 1 capsule (40 mg total) by mouth daily. 90 capsule 1 ??? OXYBUTYNIN XL 5 [...] Take 20 mg by mouth daily. ??? LISINOPRIL 40 MG tablet TAKE 1 TABLET BY MOUTH EVERY DAY ??? omeprazole 40 MG capsule Take 1 capsule (40 mg total) by mouth daily. ??? OXYBUTYNIN XL 5 MG 24 hr [...] ??? Sulfa Antibiotics Rash Objective: Filed Vitals: 06/14/21 1005 BP: 130/66 Pulse: 56 Resp: 18 Temp: 98.2 ??F (36.8 ??C) TempSrc: Skin SpO2: 97% Weight: 113.5 kg (250 lb 4.8 oz) Height: 5' (1.524 m) Physical Exam Constitutional: She is well-developed, well-nourished, and in no distress. HENT: Head: Normocephalic and atraumatic. Right Ear: External ear normal. Left Ear: External ear normal. Eyes: Conjunctivae are normal. Cardiovascular: Normal rate, regular rhythm and normal heart sounds. Exam reveals no gallop and no friction rub. No murmur heard. Pulmonary/Chest: Effort normal and breath sounds normal. No respiratory distress. She has no wheezes. She has no rales. Abdominal: Soft. There is no abdominal tenderness. Musculoskeletal: Comments: Mild pitting edema B/L Nursing note and vitals reviewed. Assessment & Plan: Jolly was seen today for breathing problem and edema. Diagnoses and all orders for this visit: Dyspnea on exertion - BASIC METABOLIC PANEL; Future Essential hypertension - furosemide 20 MG tablet; Take 3 tablets (60 mg total) by mouth daily. Positive ALLYSON (antinuclear antibody) Discussion/Summary: We will increase furosemide to 60 mg daily. Schedule with cardiology whenever able. Will have patient obtain a BMP in 1 week and follow-up in 1 month. Continue with scheduled rheumatology visit. Patient verbalized understanding. Sami Liriano DO documented in this encounter Plan of Treatment Upcoming Encounters Date Type Department Care Team (Late st Contact Info) Description 10/09/2024 9:30 AM COMPENSATION AND BENEFITS MANAGER Office Visit [facility] [phone] Carlos Farris MD Three [facility] [address] [place] [address] 11/02/2024 10:20 AM COMPENSATION AND BENEFITS MANAGER Office Visit [facility] Family & Internal Medicine - [address] [phone] Sami Liriano DO [facility] [place] [address] documented as of this encounter Visit Diagnoses Diagnosis Dyspnea on exertion- Primary Other dyspnea and respiratory abnormality Essential hypertension Unspecified essential hypertension Positive ALLYSON (antinuclear antibody) Other and unspecified nonspecific immunological findings documented in this encounter Additional Health Concerns Assessment Noted Time PHQ-9 Depression Total Score: 12 12/15/2 021 8:10 AM CDT documented as of this encounter Care Teams Rental Car Porter Relationship Specialty Start Date End Date Sami Liriano DO [address] [place] [address] PCP - General FAMILY PRACTICE 12/24/19 documented as of this encounter
--- OUTSIDE RECORDS SUMMARY | 2024-09-19 12:23 | XMS_ITS | Encounter Summary ---
Author Organization [facility] Address [facility] [place], [place] [address] [place] [address] Care Team Providers Care Outreach Rep Name Role Phone Sami Liriano Primary Care Provider + Reason for Visit * Reason Onset Date Comments Consult 06/09/2021 Encounter Details Date Type Department Care Team (Late st Contact Info) Description 06/09/2021 Telephone [place] [phone] Brooke Acosta, RMA Consult Social History Tobacco [...] on file Legal Sex Female 12:43 PM WEDDING CONSULTANT Gender Identity Female 12/18/2021 6:31 AM [...] encounter Progress Notes * TAN Jara - 06/09/2021 2:19 PM CDT Left message on vm for patient to schedule cardiology consult per Dr Atif Liriano - x2. Will send letter to patient to contact our office for appointment. documented in this encounter Plan of Treatment Upcoming Encounters Date Type Department Care Team (Late st Contact Info) Description 10/09/2024 9:30 AM WEDDING CONSULTANT Office Visit [facility] [phone] Carlos Farris MD [facility] [address] [place] [address] 11/02/2024 10:20 AM WEDDING CONSULTANT Office Visit [facility] Family & Internal Medicine - [address] [phone] Sami Liriano DO [address] [place] [address] documented as of this encounter Visit Diagnoses Not on filedocumented in this encounter Additional Health Concerns Assessment Noted Time PHQ-9 Depression Total Score: 12 12/15/2 021 8:10 AM CDT documented as of this encounter Care Teams Outreach Rep Relationship Specialty Start Date End Date Sami Liriano DO [address] [place] [address] PCP - General FAMILY PRACTICE 12/24/19 documented as of this encounter
--- OUTSIDE RECORDS SUMMARY | 2024-09-19 12:24 | XMS_ITS | Encounter Summary ---
Author Organization [facility] Address [address] [place] [address]. 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 No / Unsure 03/03/2021 9:00 AM CDT documented as of this encounter Plan of Treatment Upcoming Encounters Date Type Department Care Team (Late st Contact Info) Description 10/09/2024 9:30 AM SHIP FITTER Office Visit [facility] [phone] Carlos Farris MD Three [facility] [address] [place] [address] 11/02/2024 10:20 AM SHIP FITTER Office Visit [facility] Group Family & Internal Medicine - [address] [phone] Sami Liriano DO [address] [place] [address] documented as of this encounter Visit Diagnoses Not on filedocumented in this encounter Additional Health Concerns Assessment Noted Time PHQ-9 Depression Total Score: 12 12/15/ 021 8:10 AM CDT documented as of this encounter Care Teams Train Crew Member Relationship Specialty Start Date End Date Sami Liriano DO [address] [place] [address] PCP - General FAMILY PRACTICE 12/24/19 documented as of this encounter
--- OUTSIDE RECORDS SUMMARY | 2024-09-19 12:24 | XMS_ITS | Encounter Summary ---
Author Organization [facility] Address [facility]. [place], [place] [address] [place] [address] Care Team Providers Care Franchise Development Manager Name Role Phone Sami Liriano Primary Care Provider + Encounter Details Date Type Department Care Team (Latest Contact Info) Description 12/12/2020 Travel Social History Tobacco Use Types Packs/Day [...] 10/02 PHQ-2 Answer Date Recorded PHQ-2 Score 3 12/07/2020 Comments No Sex and Gender Information Value Date Recorded Sex Assigned at Not on file Legal Sex Female 12:43 PM PHOTOGRAPHER MODEL Gender Identity Female 12/18/2021 6:31 AM CDT Sexual Orientation Straight 01/15/2022 6: 11 AM CDT 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 No / Unsure 12/12/2020 8:55 AM CDT documented as of this encounter Plan of Treatment Upcoming Encounters Date Type Department Care Team (Late st Contact Info) Description 10/09/2024 9:30 AM PHOTOGRAPHER MODEL Office Visit [facility] [phone] Carlos Farris MD Three [facility] [address] [place] [address] 11/02/2024 10:20 AM PHOTOGRAPHER MODEL Office Visit [facility] Family & Internal Medicine - [address] [address] Sami Liriano DO [address] [place] [address] documented as of this encounter Visit Diagnoses Not on filedocumented in this encounter Additional Health Concerns Assessment Noted Time PHQ-9 Depression Total Score: 16 021 10:04 AM PHOTOGRAPHER MODEL documented as of this encounter Care Teams Franchise Development Manager Relationship Specialty Start Date End Date Sami Liriano DO [address] [place] [address] PCP - General FAMILY PRACTICE 12/24/19 documented as of this encounter
--- OUTSIDE RECORDS SUMMARY | 2024-09-19 12:24 | XMS_ITS | Encounter Summary ---
Author Organization [facility] Address [facility]. [place], [place] [address] [place] [address] Care Team Providers Care Vmware Systems Administrator Name Role Phone Sami Liriano DO Primary Care Provider + Reason for Referral * Consultation (Routine) - Closed Specialty Diagnoses / Procedures Referred By Contleydi t Referred To Contact RHEUMATOLOGY Diagnoses Positive ALLYSON (antinuclear antibody) Sami Liriano DO [address] [place] [address] Phone: tel: fax: Chris Bwoen MD [address] [address] Phone: tel: fax: Referral ID Status Reason Start Date Expiration Date V isits Requested Visits Authorized [id number] Closed Specialty Services 04/19/2021 05/19/2022 99 99 Reason for Visit * Reason Onset Date Comments Referral Request 04/19/2021 Encounter Details Date Type Department Care Team (Late st Contact Info) Description 04/19/2021 Telephone [facility] Family & Internal Medicine [facility] [address] [place] [address] Sami Liriano DO [address] [place] [address] Referral Request Social History Tobacco Use Types Packs/Day Years Used Date Smoking Tobacco: Former Cigarettes 1 12 1976 Smokeless Tobacco: Never Alcohol Use Standard Drinks/Week Comments Not Currently 0 (1 standard drink = 0.6 oz pur e alcohol) 2 cocktails on some Sundays AUDIT-C Answer Date Recorded Frequency of Alcohol Consumption 2-3 times a mary lou k 10/29/2019 Average Number of Drinks 1 or 2 020 Frequency of Binge Drinking Never 10/02 PHQ-2 Answer Date Recorded PHQ-2 Score - If the patient scores above 3, please move on to questions 3-9 2 12/15/2020 Comments No Sex and Gender Information Value Date Recorded Sex Assigned at Not on file Legal Sex Female 12:43 PM DRYER AND WASHER MECHANIC Gender Identity Female 12/18/2021 6:31 AM CDT Sexual Orientation Straight 01/15/2022 6: 11 AM CDT 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 Informed we could place a new referral but not sure how soon she will be able to get in. * Poppy Alas - 04/19/2021 10:41 AM CDT Patient asking for another referral to rheumatology because her current can't reschedule until July. documented in this encounter Plan of Treatment Upcoming Encounters Date Type Department Care Team (Late st Contact Info) Description 10/09/2024 9:30 AM DRYER AND WASHER MECHANIC Office Visit [facility]-[address] [phone] Carlos Farris MD [facility] [address] [place] [id number] 11/02/2024 10:20 AM DRYER AND WASHER MECHANIC Office Visit [facility] Family & Internal Medicine - [address] [phone] Sami Liriano DO [address] [place] [address] Scheduled Referrals Name Type Priority Associated Diagnoses Orde r Schedule Ambulatory referral to Rheumatology Referral Routine Positive ALLYSON (antinuclear antibody) Ordered: 04/19/2021 documented as of this encounter Visit Diagnoses Diagnosis Positive ALLYSON (antinuclear antibody)- Primary Other and unspecified nonspecific immunological findings documented in this encounter Additional Health Concerns Assessment Noted Time PHQ-9 Depression Total Score: 12 12/15/ 021 8:10 AM CDT documented as of this encounter Care Teams Vmware Systems Administrator Relationship Specialty Start Date End Date Sami Liriano DO [address] [place] [address] PCP - General FAMILY PRACTICE 12/24/19 documented as of this encounter
--- OUTSIDE RECORDS SUMMARY | 2024-09-19 12:24 | XMS_ITS | Encounter Summary ---
Author Organization [facility] Address [address] [place] [address]. [place], [place] [address] [place] [address] Care Team Providers Care Education Department Chair Name Role Phone Sami Liriano DO Primary Care Provider + Reason for Visit * Reason Onset Date Comments Lab Order 12/20/2020 Encounter Details Date Type Department Care Team (Late st Contact Info) Description 12/20/2020 Telephone [facility] Family & Internal Medicine [facility] [address] [place] [address] Sami Liriano DO [facility] [place] [address] Lab Order Social History Tobacco [...] on file Legal Sex Female 12:43 PM FORENSIC SOCIAL WORKER Gender Identity Female 12/18/2021 6:31 AM [...] have Coronavirus / COVID-19? No / Unsure 12/15/2020 7:49 AM CDT documented as of this encounter Progress Notes * Melanie Lance MA - 12/22/2020 2:01 PM CDT Spoke with Renetta at [employer] and added on a1c. tn * Sami Liriano DO - 12/20/2020 3:43 PM CDT Can we add on an A1c? [facility] documented in this encounter Plan of Treatment Upcoming Encounters Date Type Department Care Team (Late st Contact Info) Description 10/09/2024 9:30 AM FORENSIC SOCIAL WORKER Office Visit [facility]-[address] [phone] Carlos Farris MD Three [facility] [address] [place] [address] 11/02/2024 10:20 AM FORENSIC SOCIAL WORKER Office Visit [facility] Group Family & Internal Medicine - [address] [phone] Sami Liriano DO [address] [place] [address] Scheduled Orders Name Type Priority Associated Diagnoses Orde r Schedule HEMOGLOBIN, GLYCOSYLATED Lab Routine Hyperglycemia Expected: 12/22/2020, Expires: 12/20/2021 documented as of this encounter Visit Diagnoses Diagnosis Hyperglycemia- Primary Other abnormal glucose documented in this encounter Additional Health Concerns Assessment Noted Time PHQ-9 Depression Total Score: 12 12/15/ 021 8:10 AM CDT documented as of this encounter Care Teams Education Department Chair Relationship Specialty Start Date End Date Sami Liriano DO [address] [place] [address] PCP - General FAMILY PRACTICE 12/24/19 documented as of this encounter
--- OUTSIDE RECORDS SUMMARY | 2024-09-19 12:24 | XMS_ITS | Encounter Summary ---
Author Organization [facility] Address [address] [place] [address]. [place], [place] [address] [place] [address] Care Team Providers Care Religion Department Chair Name Role Phone Sami Liriano DO Primary Care Provider + Reason for Referral * Consultation (Routine) - Closed Specialty Diagnoses / Procedures Referred By Shereen t Referred To Contact NEUROLOGY Diagnoses Acute nonintractable headache, unspecified headache type Numbness and tingling of both upper extremities Numbness and tingling of both lower extremities Sami Liriano DO [address] [place] [address] Phone: tel: fax: Jonathon Gauthier MD Phone: tel: fax: Referral ID Status Reason Start Date Expiration Date V isits Requested Visits Authorized [id number] Closed Specialty Services 02/08/2021 03/11/2022 99 99 Reason for Visit * Reason Onset Date Comments Problem 02/08/2021 Encounter Details Date Type Department Care Team (Late st Contact Info) Description 02/08/2021 Telephone [facility] Family & Internal Medicine [facility] [address] [place] [address] Sami Liriano DO [address] [place] [address] Problem Social History Tobacco Use Types Packs/Day Years [...] on file Legal Sex Female 12:43 PM DOCK GRADER Gender Identity Female 12/18/2021 6:31 AM CDT Sexual Orientation Straight 01/15/2022 6: 11 AM CDT 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 Can see either Dr. Gauthier, or could see one of our neurologists who are in [place]. * Poppy Alas - 02/08/2021 10:30 AM CDT Patient needs a new neurologist because dr. correa won't be taking new patients. documented in this encounter Plan of Treatment Upcoming Encounters Date Type Department Care Team (Late st Contact Info) Description 10/09/2024 9:30 AM DOCK GRADER Office Visit [facility] [address] [place] [phone] Carlos Farris MD Three [facility] [address] [place] [address] 11/02/2024 10:20 AM DOCK GRADER Office Visit [facility] Family & Internal Medicine - [address] [phone] [place] [address] [place] [address] Scheduled Referrals Name Type Priority Associated Diagnoses Orde r Schedule Ambulatory referral to Neurology (OTHER) Referral Routine Acute nonintractable headache, unspecified headache type Numbness and tingling of both upper extremities Numbness and tingling of both lower extremities Ordered: 02/08/2021 documented as of this encounter Visit Diagnoses Diagnosis Acute nonintractable headache, unspecified headache type- Primary Essential hypertension Unspecified essential hypertension Overactive bladder Hypertonicity of bladder Numbness and tingling of both upper extremities Numbness and tingling of both lower extremities documented in this encounter Additional Health Concerns Assessment Noted Time PHQ-9 Depression Total Score: 12 0318/2 021 8:10 AM CDT documented as of this encounter Care Teams Religion Department Chair Relationship Specialty Start Date End Date Sami Liriano DO [address] [place] [address] PCP - General FAMILY PRACTICE 12/24/19 documented as of this encounter
--- OUTSIDE RECORDS SUMMARY | 2024-09-19 12:24 | XMS_ITS | Encounter Summary ---
Author Organization [facility] Address [facility]. 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 [address] [place] [address] 11/02/2024 10:20 AM READING AIDE Office Visit [facility] Medical Group Family & Internal Medicine - [address] [phone] Sami Liriano DO [address] [place] [address] documented as of this encounter Visit Diagnoses Not on filedocumented in this encounter Additional Health Concerns Assessment Noted Time PHQ-9 Depression Total Score: 12 12/15/2 021 8:10 AM CDT documented as of this encounter Care Teams Chemical Pathologist Relationship Specialty Start Date End Date Sami Liriano DO [address] [place] [address] PCP - General FAMILY PRACTICE 12/24/19 documented as of this encounter
--- OUTSIDE RECORDS SUMMARY | 2024-09-19 12:24 | XMS_ITS | Encounter Summary ---
Author Organization [facility] Address [facility]6 [facility]. [place], [place] [id number] [place] [id number] Care Team Providers Care Head Swamper Name Role Phone Sami Liriano Primary Care Provider + Encounter Details Date Type Department Care Team (Latest Contact Info) Description 12/30/2020 Travel Social History Tobacco Use Types Packs/Day [...] on file Legal Sex Female 12:43 PM CARBON PRINTER Gender Identity Female 12/18/2021 6:31 AM CDT [...] have Coronavirus / COVID-19? No / Unsure 12/30/2020 6:36 AM CDT documented as of this encounter Plan of Treatment Upcoming Encounters Date Type Department Care Team (Late st Contact Info) Description 10/09/2024 9:30 AM CARBON PRINTER Office Visit [facility] [phone] Carlos Farris MD [facility] [address] [place] [address] 11/02/2024 10:20 AM CARBON PRINTER Office Visit [facility] Family & Internal Medicine - [address] [phone] Sami Liriano DO [address] [place] [address] documented as of this encounter Visit Diagnoses Not on filedocumented in this encounter Additional Health Concerns Assessment Noted Time PHQ-9 Depression Total Score: 12 12/15/2 021 8:10 AM CDT documented as of this encounter Care Teams Head Swamper Relationship Specialty Start Date End Date Sami Liriano DO [address] [place] [phone] PCP - General FAMILY PRACTICE 12/24/19 documented as of this encounter
--- OUTSIDE RECORDS SUMMARY | 2024-09-19 12:24 | XMS_ITS | Encounter Summary ---
Author Organization [facility] Address [address] [place] [address]. [place], [place] [address] [place] [address] Care Team Providers Care Warehouse Team Member Name Role Phone Sami Liriano DO Primary Care Provider + Reason for Referral * Imaging (Routine) - Closed Specialty Diagnoses / Procedures Referred By Shereen benton Referred To Contact RADIOLOGY Diagnoses Resistant hypertension Procedures USV ABD PEL OR RETRO DUPLEX COMP Sami Liriano DO [address] [place] [address] Phone: tel: fax: Referral ID Status Reason Start Date Expiration Date Visits Re quested Visits Authorized [id number] Closed 12/15/2020 01/15/2022 1 1 Reason for Visit * Imaging (Routine) - Closed Specialty Diagnoses / Procedures Referred By Shereen benton Referred To Contact RADIOLOGY Diagnoses Resistant hypertension Procedures USV ABD PEL OR RETRO DUPLEX COMP Sami Liriano DO [address] [place] [address] Phone: tel: fax: Referral ID Status Reason Start Date Expiration Date Visits Re quested Visits Authorized [id number] Closed 12/15/2020 01/15/2022 1 1 Encounter Details Date Type Department Care Team (Latest Contact Info) Description 12/30/2020 6:38 AM CDT - 12/30/2020 11:59 PM CDT Hospital Encounter [facility] [address] [place] [address] Sami Liriano, [address] [place] [address] Discharge Disposition: Home or Self Care (Routine [...] on file Legal 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 amLODIPine 5 MG tabletIndications: Essential hypertension Take 1 tablet (5 mg total) by mouth daily. 30 tablet 2 12/15/2020 1 ATORVASTATIN 10 MG tabletIndications: Hyperlipidemia TAKE 1 TABLET BY MOUTH EVERYDAY AT BEDTIME 90 tablet 1 12/07/2020 1 chlorthalidone 25 MG tabletIndications: Essential hypertension Take 1 tablet (25 mg total) by mouth daily. 30 tablet 2 12/07/2020 1 escitalopram 20 MG tablet Take 20 mg by mouth daily. 05/29/2020 1 FUROSEMIDE 20 MG tabletIndications: Essential hypertension TAKE 1 TABLET BY MOUTH EVERY DAY 90 tablet 3 12/26/2020 1 lisinopril 40 MG tabletIndications: Essential hypertension Take 1 tablet (40 mg total) by mouth daily. 90 tablet 1 10/27/2020 1 omeprazole 40 MG capsuleIndications :Gastroesophageal reflux disease without esophagitis Take 1 capsule (40 mg total) by mouth daily. 90 capsule 1 12/15/2020 1 potassium chloride CR 10 MEQ Tab CR tabletIndications: Bilateral lower extremity edema TAKE 1 TABLET BY MOUTH EVERY DAY 90 tablet 1 10/17/2020 1 tolterodine LA 4 MG 24 hr capsule Take 4 mg by mouth daily. 09/07/2019 1 traMADol 50 MG tabletIndications: Chronic Pain Take 1 tablet (50 mg total) by mouth every 6 (six) hours as needed for Pain. Indications: Chronic Pain 60 tablet 09/05/2020 1 documented as of this encounter Progress Notes * Sami Liriano DO - 12/30/2020 7:00 AM CDT Findings do not show any signs of significant renal artery stenosis (what we were primarily evaluating given her difficult to control BP). There was some evidence of chronic kidney disease on the ultrasound, but we are treating this with our other treatment modalities (like BP control). I'd like tosee her in 1 month for reassessment in office. documented in this encounter Plan of Treatment Upcoming Encounters Date Type Department Care Team (Late st Contact Info) Description 10/09/2024 9:30 AM ANESTHESIA ASSOCIATE Office Visit [facility] [phone] Carlos Farris MD [facility] [address] [place] [address] 11/02/2024 10:20 AM ANESTHESIA ASSOCIATE Office Visit [facility] Family & Internal Medicine [facility] [address] [place] [address] Heri Sami Rivera, [address] [place] [address] documented as of this encounter Procedures Procedure Name Priority Date/Time Associated Diagnosis Comments USV ABD PEL OR RETRO DUPLEX COMP Routine 12/30/2020 7:18 AM CDT Resistant hypertension documented in this encounter Results * USV ABD PEL OR RETRO DUPLEX COMP (12/30/2020 7:18 AM CDT) Anatomical Region Laterality Modality NA Vascular Ultraso und 12/30/2020 6:53 AM CDT Narrative 12/31/2020 4:27 PM CDT ?RENAL-MESENTERIC DUPLEX IMAGING ? VASCULAR LAB Pat.Name: ??JOLLY SARGENT ?Pat.ID: ?[id number] ? St.Date: ?? 12/30/2020 ?Exam Time: 6:53:00 AM ? Study Type:KATIE VS Renal Mesenteric Duplex HAN Height: ?59in ?Age: ??1955,65Y ? Sex: ? FEMALE ? Sonogrphr: Eloy Thorpe, RVS ?Pat. Stat.:Outpatient ? History / Clinical:HTN; PMH- Obese, HTN, xtob, no prior Procedures: Horan scale, Color Doppler imaging, Doppler Spectral Analysis Race: ?W ? ++++++++++++++++++++++++++++++++++++ SUMMARY: ++++++++++++++++++++++++++++++++++++ Jaswant Renal artery Stenosis Criteria: ? < 60% = PSV >180 with RAR <3.5; ? >60% = PSV >180 with RAR >3.5; ? (RI >.80 = abnormal, kidney dz.) *Limited views due to body habitus Right renal artery no evident narrowing, limited views, normal velocity, with RAR 2.03 . ??RI 0.78, with kidney length within normal range. Left renal artery no evident narrowing, limited views, normal velocity, with RAR 1.33 . ??RI 0.83, with kidney length within normal range. Renal veins are patent bilaterally. ??Aorta limited views, triphasic. Low, <40 degree, Doppler measurement angle, which significantly decreases the velocity calculations obtained. CONCLUSION: ? Bilateral renal artery stenosis <60% with good kidney preservation on the right and parenchymal disease on the left. ++++++++++++++++++++++++++++++++++++ FINDINGS: ++++++++++++++++++++++++++++++++++++ ++++++++++++++++++++++++++++++++++++ MEASUREMENTS: ++++++++++++++++++++++++++++++++++++ ? AO-ILIAC Left Kidney ?? Kidney Size ? 11.5 cm ? Right Kidney ?? Kidney Size ? 12.2 cm ?RENAL ART Right Origin ?? Origin PSV ? 132 cm/s ? Right Prox ?? Prox PSV ? 149 cm/s ? Right Mid ?? Mid PSV ?189 cm/s ? Right Distal ?? Distal PSV ? 141 cm/s ? Right RAR ?? RAR PSV ? 2.03 ? Left Origin ?? Origin PSV ? 107 cm/s ? Left Prox ?? Prox PSV ? 124 cm/s ? Left Mid ?? Mid PSV ? 79.8 cm/s ? Left Distal ?? Distal PSV ?89.2 cm/s ? Left RAR ?? RAR PSV ? 1.33 ?PARENCHYMA Left Lower Pole Segmental Artery ?? Lower Pole Segm ??0.83 ? Left Upper Pole Segmental Artery ?? Upper Pole Segm ??0.81 ? Right Lower Pole Segmental Artery ?? Lower Pole Segm ??0.72 ? Right Upper Pole Segmental Artery ?? Upper Pole Segm ??0.78 ?DOPPLER Supra AO ?? Supra AO PSV ?93 cm/s ? Signed 12/31/2020 04:27 PM Elvin Cabral M.D. Procedure Note Elvin Cabral MD - 12/31/2020 RENAL-MESENTERIC DUPLEX IMAGING VASCULAR LAB Pat.Name: JOLLY SARGENT Pat.ID: [id number] .Date: 12/30/2020 Exam Time: 6:53:00 AM Study Type:KATIE VS Renal Mesenteric Duplex HAN Height: 59in Age: 5 1955,65Y Sex: FEMALE Sonogrphr: ALENA Stark Pat. Stat.:Outpatient History / Clinical:HTN; PMH- Obese, HTN, xtob, no prior Procedures: Horan scale, Color Doppler imaging, Doppler Spectral Analysis Race: W ++++++++++++++++++++++++++++++++++++ SUMMARY: ++++++++++++++++++++++++++++++++++++ Jaswant Renal artery Stenosis Criteria: < 60% = PSV >180 with RAR <3.5; >60% = PSV >180 with RAR >3.5; (RI >.80 = abnormal, kidney dz.) *Limited views due to body habitus Right renal artery no evident narrowing, limited views, normal velocity, with RAR 2.03 . RI 0.78, with kidney length within normal range. Left renal artery no evident narrowing, limited views, normal velocity, with RAR 1.33 . RI 0.83, with kidney length within normal range. Renal veins are patent bilaterally. Aorta limited views, triphasic. Low, <40 degree, Doppler measurement angle, which significantly decreases the velocity calculations obtained. CONCLUSION: Bilateral renal artery stenosis <60% with good kidney preservation on the right and parenchymal disease on the left. ++++++++++++++++++++++++++++++++++++ FINDINGS: ++++++++++++++++++++++++++++++++++++ ++++++++++++++++++++++++++++++++++++ MEASUREMENTS: ++++++++++++++++++++++++++++++++++++ AO-ILIAC Left Kidney Kidney Size 11.5 cm Right Kidney Kidney Size 12.2 cm RENAL ART Right Origin Origin PSV 132 cm/s Right Prox Prox PSV 149 cm/s Right Mid Mid PSV 189 cm/s Right Distal Distal PSV 141 cm/s Right RAR RAR PSV 2.03 Left Origin Origin PSV 107 cm/s Left Prox Prox PSV 124 cm/s Left Mid Mid PSV 79.8 cm/s Left Distal Distal PSV 89.2 cm/s Left RAR RAR PSV 1.33 PARENCHYMA Left Lower Pole Segmental Artery Lower Pole Segm 0.83 Left Upper Pole Segmental Artery Upper Pole Segm 0.81 Right Lower Pole Segmental Artery Lower Pole Segm 0.72 Right Upper Pole Segmental Artery Upper Pole Segm 0.78 DOPPLER Supra AO Supra AO PSV 93 cm/s Signed 12/31/2020 04:27 PM Elvin Cabral M.D. us Sami Liriano DO VASC Final Re sult documented in this encounter Visit Diagnoses Diagnosis Resistant hypertension documented in this encounter Additional Health Concerns Assessment Noted Time PHQ-9 Depression Total Score: 12 12/15/ 021 8:10 AM CDT documented as of this encounter Care Teams Warehouse Team Member Relationship Specialty Start Date End Date Sami Liriano DO [address] [place] [phone] PCP - General FAMILY PRACTICE 12/24/19 documented as of this encounter
--- OUTSIDE RECORDS SUMMARY | 2024-09-19 12:24 | XMS_ITS | Encounter Summary ---
Author Organization [facility] Address [facility]. 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 Gender Identity Female 12/18/2021 6:31 AM [...] st Contact Info) Description 10/09/2024 9:30 AM WEAVING INSTRUCTOR Office Visit [facility] [phone] Carlos Farris MD [facility] [address] [place] [address] 11/02/2024 10:20 AM WEAVING INSTRUCTOR Office Visit [facility] Family & Internal Medicine - [address] [phone] Sami Liriano DO [address] [place] [address] documented as of this encounter Visit Diagnoses Not on filedocumented in this encounter Additional Health Concerns Assessment Noted Time PHQ-9 Depression Total Score: 12 12/15/2 021 8:10 AM CDT documented as of this encounter Care Teams Maintenance Job Titles Relationship Specialty Start Date End Date Sami Liriano DO [address] [place] [address] PCP - General FAMILY PRACTICE 12/24/19 documented as of this encounter
--- OUTSIDE RECORDS SUMMARY | 2024-09-19 12:24 | XMS_ITS | Encounter Summary ---
Author Organization [facility] Address [facility] [place], [place] [address] [place] [address] Care Team Providers Care Olive Packer Name Role Phone Sami Liriano DO Primary Care Provider + Reason for Referral * Consultation (Routine) - Closed Specialty Diagnoses / Procedures Referred By Shereen benton Referred To Contact NEUROLOGY Diagnoses Tremors of nervous system Sami Liriano DO [address] [place] [address] Phone: tel: fax: Roberto Prabhakar MD [address] [place] [address] Phone: tel: fax: Referral ID Status Reason Start Date Expiration Date V isits Requested Visits Authorized [id number] Closed Specialty Services 12/15/2020 01/15/2022 99 99 * Imaging (Routine) - Closed Specialty Diagnoses / Procedures Referred By Shereen benton Referred To Contact RADIOLOGY Diagnoses Resistant hypertension Procedures USV ABD PEL OR RETRO DUPLEX COMP Sami Liriano DO [address] [place] [address] Phone: tel: fax: Referral ID Status Reason Start Date Expiration Date Visits Re quested Visits Authorized [id number] Closed 12/15/2020 01/15/2022 1 1 Reason for Visit * Reason Comments Blood Pressure running high Encounter Details Date Type Department Care Team (Late st Contact Info) Description 12/15/2020 8:00 AM CDT Office Visit [facility] Family & Internal Medicine [facility] [address] [place] [address] Sami Liriano DO [address] [place] [address] Blood Pressure (running high) Social History Tobacco Use Types Packs/Day Years [...] on file 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 No / Unsure 12/15/2020 7:49 AM CDT documented as of this encounter Last Filed Vital Signs Vital Sign Reading Time Taken Comments Blood Pressure 138/76 12/15/2020 8:59 AM CDT Pulse 72 12/15/2020 8:13 AM CDT Temperature 36.6 ??C (97.8 ??F) 12/15/2020 8:13 AM CD T Respiratory Rate 18 12/15/2020 8:13 AM CDT Oxygen Saturation 97% 12/15/2020 8:13 AM CDT Inhaled Oxygen Concentration - - Weight 113.4 kg (250 lb) 12/15/2020 8:13 AM CDT Height 152.4 cm (5') 12/15/2020 8:13 AM CDT Body Mass Index 48.82 12/15/2020 8:13 AM CDT documented in this encounter Progress Notes * Sami Liriano, DO - 12/15/2020 8:00 AM CDT Images from the original note were not included. GENERAL OFFICE VISIT Encounter Date: 12/15/2020 Chief Complaint: 65-year-old female presents for Blood Pressure (running high) HPI: Pt presents for short term follow-up. At last visit, Pt states approximately 2-3 days ago, she was made spaghetti with tomato sauce. She noted swellingin both her arms and legs. We had recommended that she watch her salt and keep an idea for her. Shedid not have any swelling, wheezing, or new shortness of breath immediately following consumption of the spaghetti and tomato. Pt is only taking lisinopril 20 mg as opposed to 40 mg or any other BP meds. We added both chlorthalidone and amlodipine at most recent visit and BP check. Pt took amlodipine and lisinopril and chlorthalidone. Pt had some swelling in hands that has actually not improved sincelast visit. Her swelling in her legs hasn't worsened notably. Pt has noted multiple episodes of tremors. She will have it on both hands. She will also notice it in her upper lip, which will also cause it to go numb. It is both resting and with action. She also noted a metal taste in her mouth. She has a hx of GERD and takes omeprazole 20 mg for this. She denies use of other GERD agents. Review of Systems Constitutional: Negative for fever. Cardiovascular: See HPI Gastrointestinal: See HPI Neurological: See HPI Patient Active Problem List Diagnosis [...] performed by Joel Keenan MD at [facility] OR ??? EGD ??? HERNIA [...] on file Occupational History ??? 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 Financial resource strain: Not on file ??? Food insecurity Worry: Not on file Inability: Not on file ??? Transportation needs Medical: Not on file Non-medical: Not on file Tobacco Use ??? Smoking status: Former Smoker Packs/day: 1.00 Years: 12.00 Pack years: 12.00 Types: Cigarettes Quit date: 1977 Years since quittin.2 ??? Smokeless tobacco: Never Used Substance and Sexual Activity ??? Alcohol use: Not Currently Frequency: 2-3 times a week Drinks per session: 1 or 2 Binge frequency: Never Comment: 2 cocktails on some Sundays ??? Drug use: Never ??? Sexual activity: Not on file Lifestyle ??? Physical activity Days per week: Not on file Minutes per session: Not on file ??? Stress: Not on file Relationships ??? Social connections Talks on phone: Not on file Gets together: Not on file Attends advent service: Not on file Active member of club or organization: Not on file Attends meetings of clubs or organizations: Not on file Relationship status: Not on file ??? Intimate partner violence Fear of current or ex partner: Not on file Emotionally abused: Not on file Physically abused: Not on file Forced sexual activity: Not on file Other Topics Concern ??? Not on file Social History Narrative ??? Not on file Immunization History Administered Date(s) Administered ??? Dtap 06/30/2011 ??? Pneumococcal (Prevnar 13) 09/05/2020 Current Outpatient Medications Medication Sig Dispense Refill ??? acetaminophen 325 MG tablet Take 325 mg by mouth. Take 2 in the am and 2 tabs in the pm and 1 PRN ??? amLODIPine 5 MG tablet Take 1 tablet (5 mg total) by mouth daily. 30 tablet 2 ??? ATORVASTATIN 10 MG tablet TAKE 1 TABLET BY MOUTH EVERYDAY AT BEDTIME 90 tablet 1 ??? chlorthalidone 25 MG tablet Take 1 tablet (25 mg total) by mouth daily. 30 tablet 2 ??? escitalopram 20 MG tablet Take 20 mg by mouth daily. ??? furosemide 20 MG tablet Take 1 tablet (20 mg total) by mouth daily. 30 tablet 2 ??? lisinopril 40 MG tablet Take 1 tablet (40 mg total) by mouth daily. 90 tablet 1 ??? omeprazole 40 MG capsule Take 1 capsule (40 mg total) by mouth daily. 90 capsule 1 ??? potassium chloride CR 10 MEQ Tab CR tablet TAKE 1 TABLET BY MOUTH EVERY DAY 90 tablet 1 ??? tolterodine LA 4 MG 24 hr capsule Take 4 mg by mouth daily. ??? traMADol 50 MG tablet Take 1 [...] TABLET BY MOUTH EVERYDAY AT BEDTIME ??? chlorthalidone 25 MG tablet Take 1 tablet (25 mg total) by mouth daily. ??? escitalopram 20 MG tablet Take 20 mg by mouth daily. ??? furosemide 20 MG tablet Take 1 tablet (20 mg total) by mouth daily. ??? lisinopril 40 MG tablet Take 1 tablet (40 mg total) by mouth daily. ??? potassium chloride CR 10 MEQ Tab CR tablet TAKE 1 TABLET BY MOUTH EVERY DAY ??? tolterodine LA 4 MG 24 hr capsule Take 4 mg by mouth daily. ??? traMADol 50 MG tablet Take 1 tablet (50 mg total) by mouth every 6 (six) hours as needed for Pain. Indications: Chronic Pain No current facility-administered medications on file prior to visit. Allergies Allergen Reactions ??? Penicillins Rash ??? Sulfa Antibiotics Rash Objective: Filed Vitals: 12/15/20 0813 12/15/20 0859 BP: (!) 158/72 138/76 Pulse: 72 Resp: 18 Temp: 97.8 ??F (36.6 ??C) TempSrc: Skin SpO2: 97% Weight: 113.4 kg (250 lb) Height: 5' (1.524 m) Physical Exam Constitutional: Obese HENT: Head: Normocephalic and atraumatic. Right Ear: External ear normal. Left Ear: External ear normal. Eyes: Conjunctivae are normal. No scleral icterus. Neck: Neck supple. Cardiovascular: Normal rate, regular rhythm and normal heart sounds. Exam reveals no gallop and no friction rub. No murmur heard. Pulmonary/Chest: Effort normal and breath sounds normal. No respiratory distress. She has no wheezes. She has no rales. Abdominal: Soft. Bowel sounds are normal. There is no abdominal tenderness. Musculoskeletal: Comments: Minimal swelling in B/L LE's, similar to previous. Swelling noted on UE's. Skin: Skin is warm and dry. No rash noted. Nursing note and vitals reviewed. Assessment & Plan: Hair was seen today for blood pressure. Diagnoses and all orders for this visit: Essential hypertension - COMPREHENSIVE METABOLIC PANEL; Future - COMPREHENSIVE METABOLIC PANEL - amLODIPine 5 MG tablet; Take 1 tablet (5 mg total) by mouth daily. Polyarthralgia - ALLYSON IFA SCREEN WI RFX TO TITER/CASCADE ([facility] ONLY); Future - RHEUMATOID FACTOR, QUANT; Future - ALLYSON IFA SCREEN WI RFX TO TITER/CASCADE ([facility] ONLY) - RHEUMATOID FACTOR, QUANT Resistant hypertension - USV ABD PEL OR RETRO DUPLEX COMP; Future Tremors of nervous system - Ambulatory referral to Neurology (OTHER) Gastroesophageal reflux disease without esophagitis - omeprazole 40 MG capsule; Take 1 capsule (40 mg total) by mouth daily. Discussion/Summary: Hypertension is not improving as expected with multiple agents being added on without expected improvement in control. Will increase amlodipine from 2.5 to 5 mg daily. Will order ultrasound to evaluate for renal artery stenosis. Will order rheumatological studies as per above. Will refer to neurology for questionable tremors. Will increase omeprazole to 40 mg daily. Will have patient follow-up in1 to 2 months in office and next week for blood pressure recheck. Patient verbalized understanding. I spent 41 minutes today reviewing the patient's medical record, obtaining history, performing an exam, ordering medications, tests, and/or procedures, documenting in the medical record, counseling and educating the patient/family/caregiver and reviewing and communicating test results. Sami Liriano DO * Sami Liriano DO - 12/15/2020 8:00 AM CDT Patient's glucose is elevated, but we were unable to add on an A1c. We will need to check this in the near future. Patient's kidney function is decreased from her baseline; this may be related to multiple different factors including new medications and increased blood pressure levels. We will recheck this as well. Patient has positive rheumatological studies, so she will need to follow-up with rheumatology. Please refer accordingly. I would like patient to obtain a BMP and A1c in 1 week from now. Please order accordingly. documented in this encounter Plan of Treatment Upcoming Encounters Date Type Department Care Team (Late st Contact Info) Description 10/09/2024 9:30 AM JOURNEYMAN PAINTER Office Visit [facility] [phone] Carlos Farris MD [facility] [address] [place] [address] 11/02/2024 10:20 AM JOURNEYMAN PAINTER Office Visit [facility] Family & Internal Medicine - [address] [phone] Sami Liriano P, DO [address] [place] [address] Scheduled Referrals Name Type Priority Associated Diagnoses Orde r Schedule Ambulatory referral to Neurology (OTHER) Referral Routine Tremors of nervous system Ordered: 12/15/2020 documented as of this encounter Procedures Procedure Name Priority Date/Time Associated Diagnosis Comments ALLYSON IFA SCREEN WI RFX TO TITER/CASCADE Routine 12/15/2020 9:11 AM CDT Polyarthralgia RHEUMATOID FACTOR, QUANT Routine 12/15/2020 9:11 AM CDT Polyarthralgia HEMOGLOBIN, GLYCOSYLATED Routine 12/15/2020 9:11 AM CDT COMPREHENSIVE METABOLIC PANEL Routine 12/15/2020 9:11 AM CDT Essential hypertension documented in this encounter Results * USV ABD PEL OR RETRO DUPLEX COMP (12/30/2020 7:18 AM CDT) Anatomical Region Laterality Modality NA Vascular Ultraso und 12/30/2020 6:53 AM CDT Narrative 12/31/2020 4:27 PM CDT ?RENAL-MESENTERIC DUPLEX IMAGING ? VASCULAR LAB Pat.Name: ??HAIR SARGENT ?Pat.ID: ?[id number] ? St.Date: ?? 12/30/2020 ?Exam Time: 6:53:00 [...] 12/31/2020 RENAL-MESENTERIC DUPLEX IMAGING VASCULAR LAB Pat.Name: HAIR SARGENT Pat.ID: [id number] .Date: 12/30/2020 Exam Time: 6:53:00 AM Study [...] Signed 12/31/2020 04:27 PM Elvin Cabral M.D. Sami Liriano US VASC Final Re sult * HEMOGLOBIN, GLYCOSYLATED (12/15/2020 9:11 AM CDT) HGB A1C TNP % of total Hgb [facility] Comment: TEST NOT PERFORMED The specimen type required for the add-on test was not originally collected. 12/15/2020 9:11 AM CDT 12/15/2020 9:12 AM CDT Sami Liriano DO LABORATORY Final Re sult Performing Organization Address City/[facility] Co de Phone Number [facility] [address] [place] [address] * RHEUMATOID FACTOR, QUANT (12/15/2020 9:11 AM CDT) Pathologist [facility] RHEUMATOID FACTOR <14 <14 IU/mL [facility] 12/15/2020 9:11 AM CDT 12/15/2020 9:12 AM CDT Samidania Liriano DO LABORATORY Final Re sult Performing Organization Address [facility] Co de Phone Number [facility] [address] [place] [address] * (ABNORMAL) ALLYSON IFA SCREEN WI RFX TO TITER/CASCADE ([facility] ONLY) (12/15/2020 9:11 AM CDT) ALLYSON POSITIVE(A) NEGATIVE [facility] Comment: ALLYSON IFA is a first line screen for detecting the presence of up to approximately 150 autoantibodies in various autoimmune diseases. A positive ALLYSON IFA result is suggestive of autoimmune disease and reflexes to titer, pattern and the 3 tiered Multiplex 11 Antibody [place]. Testing in the [place] stops at the first positive result, and does not preclude additional positive results. Further laboratory testing may be considered if clinically indicated. For additional information, please refer to http://education.Ezakus/faq/UBI842 (This link is being provided for informational/ educational purposes only.) ?? ALLYSON TITER 1:80(H) titer [facility] Comment: A low level ALLYSON titer may be present in pre-clinical autoimmune diseases and normal individuals. ?Reference Range ?<1:40 ?Negative ?1:40-1:80 ?Low Antibody Level ?>1:80 ?Elevated Antibody Level ALLYSON PATTERN Nuclear, Speckled(A) [facility] Comment: Speckled pattern is associated with mixed connective tissue disease (MCTD), systemic lupus erythematosus (SLE), Sjogren's syndrome, dermatomyositis, and systemic sclerosis/polymyositis overlap. AC-2,4,5,29: Speckled International Consensus on ALLYSON Patterns (https://doi.org/10.1515/uhbx-0603-8436) ALLYSON TITER 1:320(H) titer [facility] Comment: ?Reference Range ?<1:40 ?Negative ?1:40-1:80 ?Low Antibody Level ?>1:80 ?Elevated Antibody Level ALLYSON PATTERN Nuclear, Discrete Nuclear Dots(A) [facility] Comment: Nuclear dots (6-20 in number per cell) pattern is seen in primary biliary cholangitis (PBC), polymyositis/dermatomyositis, and other systemic autoimmune rheumatic diseases. AC-6,7: Discrete Nuclear Dots International Consensus on ALLYSON Patterns (https://doi.org/10.1515/eonf-2731-5724) DNA (DS) ANTIBODY 1 IU/mL [facility] Comment: ? IU/mL ? Interpretation ? < or = 4 ?Negative ? 5-9 ? Indeterminate ? > or = 10 ?? Positive SM ANTIBODY <1.0 NEG <1.0 NEG AI [facility] SM/ATOMIC PHYSICS TEACHER AB S/P/B <1.0 NEG <1.0 NEG [facility] ATOMIC PHYSICS TEACHER (U1) AB S/P/B <1.0 NEG <1.0 NEG AI [facility] CHROMATIN (NUCLEOSOMAL)AB <1.0 NEG <1.0 NEG AI [facility] SSA ANTIBODY <1.0 NEG <1.0 NEG AI [facility] SSB ANTIBODY <1.0 NEG <1.0 NEG AI [facility] SCL 70 S/P/B <1.0 NEG <1.0 NEG AI [facility] ROSLYN-1 ANTIBODY <1.0 NEG <1.0 NEG [facility] CENTROMERE B AB S/P/B <1.0 NEG <1.0 NEG AI [facility] RIBOSOMAL P ANTIBODY <1.0 NEG <1.0 NEG AI [facility] Comment: The [place] does not rule out autoimmune disease characterized by other autoantibody specificities such as rheumatoid arthritis, autoimmune hepatitis, primary biliary cirrhosis, autoimmune thyroiditis, Moultrie's disease, pernicious anemia, autoimmune neuropathies, vasculitis, celiac disease and bullous disease. Please contact your local [facility] laboratory if you are interested in additional testing. INTERPRETATION [facility] Comment: All three negative tiers indicate the absence of detectable antibodies to component analytes consisting of double stranded DNA (dsDNA), chromatin, ribonucleoprotein (ATOMIC PHYSICS TEACHER), Mcginnis/ATOMIC PHYSICS TEACHER (Sm/ATOMIC PHYSICS TEACHER), Mcginnis (Sm), SS-A, SS-B, [place]-1, Scl-70, centromere B and ribosomal P. A negative result should be interpreted in the context of the clinical and laboratory findings. 12/15/2020 9:11 AM CDT 12/15/2020 9:12 AM CDT Sami Liriano DO LABORATORY Final Re sult [facility] [address] [place] [address] * (ABNORMAL) COMPREHENSIVE METABOLIC PANEL (12/15/2020 9:11 AM CDT) Pathologist [facility] GLUCOSE 125(H) 65 - 99 mg/dL [facility] Comment: ? Fasting reference interval For someone without known diabetes, a glucose value between 100 and 125 mg/dL is consistent with prediabetes and should be confirmed with a follow-up test. BUN 36(H) 7 - 25 mg/dL [facility] CREATININE S/P/B 1.39(H) 0.50 - 0.99 mg/dL [facility] Comment: For patients >49 years of age, the reference limit for Creatinine is approximately 13% higher for people identified as -Iraqi. EGFR NON-AFR. AMER. 39(L) > OR = 60 mL/min/1. 73m2 [facility] EGFR AFR. AMER. 45(L) > OR = 60 mL/min/1. 73m2 [facility] BUN CREATININE RATIO 26(H) 6 - 22 (calc) [facility] SODIUM S/P/B 135 135 - 146 mmol/L [facility] POTASSIUM S/P/B 4.8 3.5 - 5.3 mmol/L [facility] CHLORIDE S/P/B 101 98 - 110 mmol/L [facility] CO2 27 20 - 32 mmol/L [facility] CALCIUM S/P/B 9.9 8.6 - 10.4 mg/dL [facility] TOTAL PROTEIN S/P/B 7.5 6.1 - 8.1 g/dL [facility] ALBUMIN S/P/B 4.4 3.6 - 5.1 g/dL [facility] GLOBULIN 3.1 1.9 - 3.7 g/dL (calc) [facility] ALBUMIN/GLOBULIN RATIO 1.4 1.0 - 2.5 (calc) [facility] BILIRUBIN TOTAL S/P/B 1.2 0.2 - 1.2 mg/dL [facility] ALKALINE PHOSPHATASE S/P/B 87 37 - 153 U/L [facility] AST 16 10 - 35 U/L [facility] ALT 17 6 - 29 U/L [facility] 12/15/2020 9:11 AM CDT 12/15/2020 9:12 AM CDT Sami Liriano DO LABORATORY Final Re sult [facility] [address] [place] [address] documented in this encounter Visit Diagnoses Diagnosis Essential hypertension- Primary Unspecified essential hypertension Polyarthralgia Pain in joint, multiple sites Resistant hypertension Tremors of nervous system Abnormal involuntary movements Gastroesophageal reflux disease without esophagitis Esophageal reflux Resistant hypertension documented in this encounter Additional Health Concerns Assessment Noted Time PHQ-9 Depression Total Score: 12 021 8:10 AM CDT documented as of this encounter Care Teams Olive Packer Relationship Specialty Start Date End Date Sami Liriano DO [address] [place] [address] PCP - General FAMILY PRACTICE 12/24/19 documented as of this encounter
--- OUTSIDE RECORDS SUMMARY | 2024-09-19 12:24 | XMS_ITS | Encounter Summary ---
Author Organization [facility] Address [address] [place] [address]. [place], [place] [address] [place] [address] Care Team Providers Care Orthopedically Impaired Teacher Name Role Phone Sami Liriano DO Primary Care Provider + Reason for Visit * Reason Onset Date Comments Medication Request 03/03/2021 Encounter Details Date Type Department Care Team (Late st Contact Info) Description 03/03/2021 Telephone [facility] Family & Internal Medicine [facility] [address] [place] [address] Sami Liriano DO [facility] [place] [address] Medication Request Social History Tobacco [...] on file 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 No / Unsure 03/03/2021 9:00 AM CDT documented as of this encounter Progress Notes * Melanie Lance MA - 03/03/2021 2:22 PM CDT Patient contacted and informed tn * Sami Liriano DO - 03/03/2021 9:57 AM CDT Last rocephin shot today; will start cefdinir which she should complete over 7 days. * Delores Abreu - 03/03/2021 9:01 AM CDT Patient came into the office for her 3rd shot of rocephin but is asking if she needs to come in on Saturday or what she needs to do? documented in this encounter Plan of Treatment Upcoming Encounters Date Type Department Care Team (Late st Contact Info) Description 10/09/2024 9:30 AM PATIENTS TRANSPORTER Office Visit [facility]-[address] [phone] [facility] [place] [address] 11/02/2024 10:20 AM PATIENTS TRANSPORTER Office Visit [facility] Family & Internal Medicine - [address] [phone] Sami Liriano DO [address] [place] [address] documented as of this encounter Visit Diagnoses Diagnosis Pneumonia of both lower lobes due to infectious organism- Primary documented in this encounter Additional Health Concerns Assessment Noted Time PHQ-9 Depression Total Score: 12 12/15/ 021 8:10 AM CDT documented as of this encounter Care Teams Orthopedically Impaired Teacher Relationship Specialty Start Date End Date Sami Liriano DO [facility] [place] [address] PCP - General FAMILY PRACTICE 12/24/19 documented as of this encounter
--- OUTSIDE RECORDS SUMMARY | 2024-09-19 12:24 | XMS_ITS | Encounter Summary ---
Author Organization [facility] Address [facility]. 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 No / Unsure 12/12/2020 8:55 AM CDT documented as of this encounter Last Filed Vital Signs Vital Sign Reading Time Taken Comments Blood Pressure 170/76 12/12/2020 9:12 AM CDT Pulse - - Temperature - - Respiratory Rate - - Oxygen Saturation - - Inhaled Oxygen Concentration - - Weight - - Height - - Body Mass Index - - documented in this encounter Progress Notes * Sami Liriano DO - 12/12/2020 9:00 AM CDT Will add amlodipine; will have pt f/u later this week. May need further work-up for secondary hypertension depending upon improvement. documented in this encounter Plan of Treatment Upcoming Encounters Date Type Department Care Team (Late st Contact Info) Description 10/09/2024 9:30 AM MANUFACTURING COORDINATOR Office Visit [facility] [phone] Carols Farris MD [facility] [address] [place] [address] 11/02/2024 10:20 AM MANUFACTURING COORDINATOR Office Visit [facility] Family & Internal Medicine - [address] [phone] Sami Liriano DO [address] [place] [address] documented as of this encounter Visit Diagnoses Diagnosis Essential hypertension- Primary Unspecified essential hypertension documented in this encounter Additional Health Concerns Assessment Noted Time PHQ-9 Depression Total Score: 16 021 10:04 AM MANUFACTURING COORDINATOR documented as of this encounter Care Teams Change Of Address Clerk Relationship Specialty Start Date End Date Sami Liriano DO [address] [place] [address] PCP - General FAMILY PRACTICE 12/24/19 documented as of this encounter
--- OUTSIDE RECORDS SUMMARY | 2024-09-19 12:24 | XMS_ITS | Encounter Summary ---
Author Organization [facility] Address [facility]. [place], [place] [address] [place] [address] Care Team Providers Care Primary Care Coordinator Name Role Phone Sami Liriano Primary Care Provider + Encounter Details Date Type Department Care Team (Latest Contact Info) Description 12/07/2020 Travel Social History Tobacco Use Types Packs/Day [...] on file Legal Sex Female 12:43 PM MFT Gender Identity Female 12/18/2021 6:31 AM CDT [...] have Coronavirus / COVID-19? No / Unsure 12/07/2020 9:46 AM MFT documented as of this encounter Plan of Treatment Upcoming Encounters Date Type Department Care Team (Late st Contact Info) Description 10/09/2024 9:30 AM MFT Office Visit [facility] [phone] Carlos Farris MD [facility] [address] [place] [address] 11/02/2024 10:20 AM MFT Office Visit [facility] Family & Internal Medicine - [address] [phone] Sami Liriano DO [address] [place] [address] documented as of this encounter Visit Diagnoses Not on filedocumented in this encounter Additional Health Concerns Assessment Noted Time PHQ-9 Depression Total Score: 16 021 10:04 AM MFT documented as of this encounter Care Teams Primary Care Coordinator Relationship Specialty Start Date End Date Sami Liriano DO [address] [place] [address] PCP - General FAMILY PRACTICE 12/24/19 documented as of this encounter
--- OUTSIDE RECORDS SUMMARY | 2024-09-19 12:24 | XMS_ITS | Encounter Summary ---
Author Organization [facility] Address [facility]. 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 Gender Identity Female 12/18/2021 6:31 AM CDT Sexual Orientation Straight 01/15/2022 6: 11 AM CDT 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 Not on [...] st Contact Info) Description 10/09/2024 9:30 AM MINING ANALYST Office Visit [facility] [phone] Carlos Farris MD [address] [facility] [address] [place] [address] 11/02/2024 10:20 AM MINING ANALYST Office Visit [facility] Family & Internal Medicine - [address] [phone] Sami Liriano DO [address] [place] [address] documented as of this encounter Procedures Procedure Name Priority Date/Time Associated Diagnosis Comments BONE DENSITY GENERIC (SCAN ORDER) 02/28/2021 MAMMOGRAM GENERIC (SCAN ORDER) 02/28/2021 documented in this encounter Results * BONE DENSITY GENERIC (02/28/2021) Anatomical Region Laterality Modality Other 02/28/2021 Narrative 02/28/2021 Ordered by an unspecified provider. us Documents Scanned SCANNING Final Result * MAMMOGRAM GENERIC (02/28/2021) Anatomical Region Laterality Modality Other [...] documented as of this encounter Care Teams Salesperson Women'S Hats Relationship Specialty Start Date End Date Sami Liriano DO [address] [place] [address] [phone] PCP - General FAMILY PRACTICE 12/24/19 documented as of this encounter
--- OUTSIDE RECORDS SUMMARY | 2024-09-19 12:24 | XMS_ITS | Encounter Summary ---
Author Organization [facility] Address [facility]. [place], [place] [address] [place] [address] Care Team Providers Care Corn Popper Name Role Phone Sami Liriano DO Primary Care Provider + Reason for Referral * Consultation (Routine) - Closed Specialty Diagnoses / Procedures Referred By Shereen t Referred To Contact RHEUMATOLOGY Diagnoses Positive ALLYSON (antinuclear antibody) Sami Liriano DO [address] [place] [address] Phone: tel: fax: [place] [address] [place] [address] Phone: tel: fax: Referral ID Status Reason Start Date Expiration Date V isits Requested Visits Authorized [id number] Closed Specialty Services 12/26/2020 01/25/2022 100 100 Reason for Visit * Reason Onset Date Comments Lab Results 12/26/2020 Encounter Details Date Type Department Care Team (Late st Contact Info) Description 12/26/2020 Telephone [facility] Family & Internal Medicine [facility] [address] [place] [phone] Sami Liriano DO [address] [place], [place] [phone] Lab Results Social History Tobacco Use Types [...] on file Legal Sex Female 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 All other information was relayed by Dr Liriano. * Melanie Lance MA - 12/26/2020 10:45 AM CDT ----- Message from Sami Liriano DO sent at 12/25/2020 11:04 AM CDT ----- Patient's glucose is elevated, but we were [...] st Contact Info) Description 10/09/2024 9:30 AM RESPIRATORY TECH Office Visit [facility]-[address] [phone] Carlos Farris MD [facility] [address] [place] [address] 11/02/2024 10:20 AM RESPIRATORY TECH Office Visit [facility] Family & Internal Medicine - [address] [phone] Sami Liriano DO [address] [place] [address] Scheduled Referrals Name Type Priority Associated Diagnoses Orde r Schedule Ambulatory referral to Rheumatology Referral Routine Positive ALLYSON (antinuclear antibody) Ordered: 12/26/2020 documented as of this encounter Visit Diagnoses Diagnosis Elevated serum creatinine- Primary Other nonspecific findings on examination of blood Positive ALLYSON (antinuclear antibody) Other and unspecified nonspecific immunological findings documented in this encounter Additional Health Concerns Assessment Noted Time PHQ-9 Depression Total Score: 12 12/15/ 021 8:10 AM CDT documented as of this encounter Care Teams Corn Popper Relationship Specialty Start Date End Date Sami Liriano DO [address] [place] [address] PCP - General FAMILY PRACTICE 12/24/19 documented as of this encounter
--- OUTSIDE RECORDS SUMMARY | 2024-09-19 12:24 | XMS_ITS | Encounter Summary ---
Author Organization [facility] Address [facility]. 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 Not on [...] st Contact Info) Description 10/09/2024 9:30 AM LITIGATION SPECIALIST Office Visit [facility] [phone] Carlos Farris MD Three [facility] [address] [place] [address] 11/02/2024 10:20 AM LITIGATION SPECIALIST Office Visit [facility] Family & Internal Medicine - [address] [phone] Sami Liriano DO [address] [place] [address] documented as of this encounter Visit Diagnoses Not on filedocumented in this encounter Additional Health Concerns Assessment Noted Time PHQ-9 Depression Total Score: 12 12/15/2 021 8:10 AM CDT documented as of this encounter Care Teams Site Promotion Agent Relationship Specialty Start Date End Date Sami Liriano DO [address] [place] [address] PCP - General FAMILY PRACTICE 12/24/19 documented as of this encounter
--- OUTSIDE RECORDS SUMMARY | 2024-09-19 12:24 | XMS_ITS | Encounter Summary ---
Author Organization [facility] Address [address] [place] [address]. [place], [place] [address] [place] [address] Care Team Providers Care Plastic Welding Machine Operator Name Role Phone Sami Liriano DO Primary Care Provider + Reason for Visit * Reason Onset Date Comments Follow Up Call 02/21/2021 Encounter Details Date Type Department Care Team (Late st Contact Info) Description 02/21/2021 Telephone [facility] Family & Internal Medicine [facility] [address] [place] [address] Sami Liriano DO [facility] [place] [address] Follow Up Call Social History [...] on file Legal Sex Female 12:43 PM TITLE MANAGER Gender Identity Female 12/18/2021 6:31 AM CDT Sexual Orientation Straight 01/15/2022 6: 11 AM CDT 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 Patient was rx'ed albuterol inhaler, cough syrup, levaquin and prednisone. Patient had covid swab 2 weeks ago which was negative. Patient wanted to schedule a follow up appointment. appt scheduled. * Deb Varela RN - 02/21/2021 12:19 PM CDT Attempted to call the patient, was unable to reach them at this time. Left a message requesting a call back. -02/21/21 * Delores Abreu - 02/21/2021 9:52 AM CDT Patient called in asking to speak to a clinical steam flattener about her urgent care visit at [facility] in [place]. documented in this encounter Plan of Treatment Upcoming Encounters Date Type Department Care Team (Late st Contact Info) Description 10/09/2024 9:30 AM TITLE MANAGER Office Visit [facility]-[address] [phone] Carlos Farris MD [facility] [address] [place] [address] 11/02/2024 10:20 AM TITLE MANAGER Office Visit [facility] Family & Internal Medicine - [address] [phone] Sami Liriano DO [address] [place] [address] documented as of this encounter Visit Diagnoses Not on filedocumented in this encounter Additional Health Concerns Assessment Noted Time PHQ-9 Depression Total Score: 12 12/15/ 021 8:10 AM CDT documented as of this encounter Care Teams Plastic Welding Machine Operator Relationship Specialty Start Date End Date Sami Liriano DO [address] [place] [address] PCP - General FAMILY PRACTICE 12/24/19 documented as of this encounter
--- OUTSIDE RECORDS SUMMARY | 2024-09-19 12:24 | XMS_ITS | Encounter Summary ---
Author Organization [facility] Address [address] [place] [address]. [place], [place] [address] [place] [address] Care Team Providers Care Parks Recreation Coordinator Name Role Phone Sami Liriano DO Primary Care Provider + Reason for Visit * Reason Comments Face started saturday morni ng Hypertension Headache Encounter Details Date Type Department Care Team (Late st Contact Info) Description 12/07/2020 10:00 AM TOBACCO PRIZER Office Visit [facility] Family & Internal Medicine [address] [phone] Sami Liriano DO [address] [place] [address] Face (started saturday morning ); Hypertension; Headache Social History Tobacco Use Types Packs/Day Years Used Date Smoking Tobacco: Former Cigarettes 1976 Smokeless Tobacco: Never Alcohol Use Standard [...] on file Legal Sex Female 12:43 PM TOBACCO PRIZER Gender Identity Female 12/18/2021 6:31 AM CDT Sexual Orientation Straight 01/15/2022 6: 11 AM CDT 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 No / Unsure 12/07/2020 9:46 AM TOBACCO PRIZER documented as of this encounter Last Filed Vital Signs Vital Sign Reading Time Taken Comments Blood Pressure 166/76 12/07/2020 10:02 AM TOBACCO PRIZER Pulse 89 12/07/2020 10:02 AM TOBACCO PRIZER Temperature 36.5 ??C (97.7 ??F) 12/07/2020 10:[address] Respiratory Rate 16 12/07/2020 10:02 AM TOBACCO PRIZER Oxygen Saturation 97% 12/07/2020 10:02 AM TOBACCO PRIZER Inhaled Oxygen Concentration - - Weight 112.5 kg (248 lb) 12/07/2020 10:02 AM TOBACCO PRIZER Height 152.4 cm (5') 12/07/2020 10:02 AM TOBACCO PRIZER Body Mass Index 48.43 12/07/2020 10:02 AM TOBACCO PRIZER documented in this encounter Patient Instructions * Patient Instructions* Sami Liriano DO - 12/07/2020 10:00 AM TOBACCO PRIZER Take 40 mg of lisinopril daily. Also start taking chlorthalidone 25 mg daily; we have sent this to your pharmacy. Come back in blood pressure check next week Saturday or Saturday. CCO PRIZER documented in this encounter Progress Notes * Sami Liriano DO - 12/07/2020 10:00 AM CST Images from the original note were not included. GENERAL OFFICE VISIT Encounter Date: 12/07/2020 Chief Complaint: 65-year-old female presents for Face (started saturday morning ), Hypertension, and Headache HPI: Pt states approximately 2-3 days ago, she was made spaghetti with tomato sauce. She noted swelling in both her arms and legs. We had recommended that she watch her salt and keep an idea for her. She did not have any swelling, wheezing, or new shortness of breath immediately following consumption ofthe spaghetti and tomato. Pt is only taking lisinopril 20 mg as opposed to 40 mg or any other BP meds. Review of Systems Constitutional: Negative for fever. Cardiovascular: See HPI Neurological: Positive for headaches. Patient Active Problem List Diagnosis ??? Alopecia [...] 3 performed by Joel Keenan MD at [facility] OR ??? EGD ??? HERNIA REPAIR [...] Not on file Occupational History ??? 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 Financial resource strain: Not [...] and Sexual Activity ??? Alcohol use: Yes Frequency: 2-3 times a week Drinks per [...] file Gets together: Not on file Attends mormon service: Not on file Active member of [...] 1 TABLET BY MOUTH EVERYDAY AT BEDTIME 30 tablet 1 ??? chlorthalidone 25 MG tablet [...] mouth daily. 90 tablet 1 ??? omeprazole 20 MG capsule TAKE 1 CAPSULE BY MOUTH EVERY DAY BEFORE A MEAL ??? potassium chloride CR 10 MEQ Tab [...] TABLET BY MOUTH EVERYDAY AT BEDTIME ??? escitalopram 20 MG tablet Take 20 mg by mouth daily. ??? furosemide 20 MG tablet Take 1 tablet (20 mg total) by mouth daily. ??? lisinopril 40 MG tablet Take 1 tablet (40 mg total) by mouth daily. ??? omeprazole 20 MG capsule TAKE 1 CAPSULE BY MOUTH EVERY DAY BEFORE A MEAL ??? potassium chloride CR 10 MEQ Tab [...] ??? Sulfa Antibiotics Rash Objective: Filed Vitals: 12/07/20 1002 BP: (!) 166/76 Pulse: 89 Resp: 16 Temp: 97.7 ??F (36.5 ??C) TempSrc: Skin SpO2: 97% Weight: 112.5 kg (248 lb) Height: 5' (1.524 m) Physical Exam [...] tenderness. Musculoskeletal: Comments: Minimal swelling in B/L LE's Skin: Skin is warm and dry. No rash noted. Nursing note and vitals reviewed. Assessment & Plan: Jolly was seen today for face, hypertension and headache. Diagnoses and all orders for this visit: Essential hypertension - chlorthalidone 25 MG tablet; Take 1 tablet (25 mg total) by mouth daily. Swelling of both upper extremities Swelling of both lower extremities Acute nonintractable headache, unspecified headache type Discussion/Summary: Suspect that the symptoms are related to high salt intake and lack of blood pressure control. Instructed patient to take 40 mg of lisinopril daily as opposed to 20 mg. Also added chlorthalidone to her regimen today. Will have patient follow-up for blood pressure recheck next week. Recommended low salt intake and to monitor for symptoms. If symptoms are improved by next week, can return to work atthat time. Patient verbalized understanding. Sami Liriano DO CCO PRIZER documented in this encounter Plan of Treatment Upcoming Encounters Date Type Department Care Team (Late st Contact Info) Description 10/09/2024 9:30 AM TOBACCO PRIZER Office Visit [facility]-[address] [phone] Carlos Farris MD [facility] [address] [place] [address] 11/02/2024 10:20 AM TOBACCO PRIZER Office Visit [facility] Family & Internal Medicine - [address] [phone] Sami Liriano DO [address] [place] [address] documented as of this encounter Visit Diagnoses Diagnosis Essential hypertension- Primary Unspecified essential hypertension Swelling of both upper extremities Swelling of both lower extremities Acute nonintractable headache, unspecified headache type documented in this encounter Additional Health Concerns Assessment Noted Time PHQ-9 Depression Total Score: 16 021 10:04 AM TOBACCO PRIZER documented as of this encounter Care Teams Parks Recreation Coordinator Relationship Specialty Start Date End Date Sami Liriano DO [address] [place] [address] PCP - General FAMILY PRACTICE 12/24/19 documented as of this encounter
--- OUTSIDE RECORDS SUMMARY | 2024-09-19 12:24 | XMS_ITS | Encounter Summary ---
Author Organization [facility] Address [address] [place] [address]. [place], [place] [address] [place] [address] Care Team Providers Care Insolvency Consultant Name Role Phone Sami Gimenez DO Primary Care Provider + Reason for Visit * Reason Comments Pneumonia follow up diagnosed at [facility] on 02/20/21 Encounter Details Date Type Department Care Team (Late st Contact Info) Description 03/01/2021 8:00 AM CDT Office Visit [facility] Family & Internal Medicine [address] [phone] Sami Gimenez DO [address] [place] [address] [phone] Pneumonia (follow up diagnosed at [facility] on 02/20/21) Social History Tobacco Use Types Packs/Day Years [...] on file Legal Sex Female 12:43 PM MERGERS AND ACQUISITIONS ASSOCIATE Gender Identity Female 12/18/2021 6:31 AM CDT Sexual Orientation Straight 01/15/2022 6: 11 AM CDT 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 No / Unsure 03/01/2021 7:36 AM CDT documented as of this encounter Last Filed Vital Signs Vital Sign Reading Time Taken Comments Blood Pressure 122/60 03/01/2021 7:44 AM CDT Pulse 77 03/01/2021 7:44 AM CDT Temperature 36.8 ??C (98.2 ??F) 03/01/2021 7:44 AM CD T Respiratory Rate 20 03/01/2021 7:44 AM CDT Oxygen Saturation 95% 03/01/2021 7:44 AM CDT Inhaled Oxygen Concentration - - Weight 112.9 kg (248 lb 14.4 oz) 03/01/2021 7:44 AM CDT Height 152.4 cm (5') 03/01/2021 7:44 AM CDT Body Mass Index 48.61 03/01/2021 7:44 AM CDT documented in this encounter Progress Notes * Sami Gimenez, DO - 03/01/2021 8:00 AM CDT Images from the original note were not included. GENERAL OFFICE VISIT Encounter Date: 03/01/2021 Chief Complaint: 66-year-old female presents for Pneumonia (follow up diagnosed at [facility] on 02/20/21) HPI: Pt presents for follow-up after urgent care evaluation. Pt was apparently diagnosed with pneumonia on 02/20/21. She states it started about 3 weeks. Pt ws prescribed albuterol, Virtussin, Levaquin, and prednisone per our records. She finished the antibiotics and prednisone already and is still having symptoms. She was negative for COVID on rapid and PCR testing. She is drinking water. She is reducing her activity. Pt has been given Rocephin in the past without complication. Pt has hx of urinary incontinence. She is on Detrol LA. It is working well, but she is having difficult with paying. Pt has hx of knee arthritis that is non-operable. She is doing well on tramadol and would like to continue it. She has not refilled it for some time. Review of Systems Constitutional: Negative for fever. HENT: See HPI Respiratory: See HPI Cardiovascular: Negative for chest pain. Genitourinary: See HPI Musculoskeletal: See HPI Patient Active Problem List Diagnosis [...] 3 performed by Joel Keenan MD at [facility] OR ??? EGD ??? HERNIA REPAIR [...] file Occupational History ??? 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 Smoking status: Former Smoker Packs/day: 1.00 Years: 12.00 Pack years: 12.00 Types: Cigarettes Quit date: 1976 Years since quittin.4 ??? Smokeless tobacco: Never Used Substance and [...] Gatherings with Friends and Family: ??? Attends Orthodox Services: ??? Active Member of Clubs or [...] HFA 108 (90 Base) MCG/ACT inhaler ??? amLODIPine 5 MG tablet Take 1 tablet (5 mg total) by mouth daily. 90 tablet 1 ??? ATORVASTATIN 10 MG tablet TAKE 1 TABLET BY MOUTH EVERYDAY AT BEDTIME 90 tablet 1 ??? chlorthalidone 25 MG tablet Take 1 tablet (25 mg total) by mouth daily. 30 tablet 2 ??? doxycycline hyclate 100 MG capsule Take 1 capsule (100 mg total) by mouth 2 (two) times daily for 10 days. 20 capsule 0 ??? escitalopram 20 MG tablet Take 20 mg by mouth daily. ??? FUROSEMIDE 20 MG tablet TAKE 1 TABLET BY MOUTH EVERY DAY 90 tablet 3 ??? lisinopril 40 MG tablet Take 1 tablet (40 mg total) by mouth daily. 90 tablet 1 ??? omeprazole 40 MG capsule Take 1 capsule (40 mg total) by mouth daily. 90 capsule 1 ??? oxybutynin XL 5 MG 24 hr tablet Take 1 tablet (5 mg total) by mouth daily. 30 tablet 2 ??? potassium chloride CR 10 MEQ Tab CR tablet TAKE 1 TABLET BY MOUTH EVERY DAY 90 tablet 1 ??? predniSONE 20 MG tablet Take 3 tabs daily for three days, then take 2 tabs daily for three days, then take 1 tab daily for three days 18 tablet 0 ??? tiotropium 2.5 MCG/ACT inhaler (SPIRIVA RESPIMAT) Inhale 2 puffs into the lungs daily. Please provide assembled. ??? traMADol 50 MG tablet Take 1 tablet (50 mg total) by mouth every 6 (six) hours as needed for Pain. Indications: Chronic Pain 60 tablet 0 ??? VIRTUSSIN A/C 100-10 MG/5ML syrup Take 5-10 mLs by mouth every 6 (six) hours as needed for Cough. Indications: Cough 180 mL 0 No current facility-administered medications for this visit. Current Outpatient Medications on File Prior to Visit Medication Sig ??? acetaminophen 325 MG tablet Take 325 mg by mouth. Take 2 in the am and 2 tabs in the pm and 1 PRN ??? albuterol sulfate HFA 108 (90 Base) MCG/ACT inhaler ??? amLODIPine 5 MG tablet Take 1 tablet (5 mg total) by mouth daily. ??? ATORVASTATIN 10 MG tablet TAKE 1 TABLET BY MOUTH EVERYDAY AT BEDTIME ??? chlorthalidone 25 MG tablet Take 1 tablet (25 mg total) by mouth daily. ??? escitalopram 20 MG tablet Take 20 mg by mouth daily. ??? FUROSEMIDE 20 MG tablet TAKE 1 TABLET BY MOUTH EVERY DAY ??? lisinopril 40 MG tablet Take 1 tablet (40 mg total) by mouth daily. ??? omeprazole 40 MG capsule Take 1 capsule (40 mg total) by mouth daily. ??? potassium chloride CR 10 MEQ Tab CR tablet TAKE 1 TABLET BY MOUTH EVERY DAY ??? tiotropium 2.5 MCG/ACT inhaler (SPIRIVA RESPIMAT) Inhale 2 puffs into the lungs daily. Please provide assembled. No current facility-administered medications on file prior to visit. Allergies Allergen Reactions ??? Penicillins Rash ??? Sulfa Antibiotics Rash Objective: Filed Vitals: 03/01/21 0744 BP: 122/60 Pulse: 77 Resp: 20 Temp: 98.2 ??F (36.8 ??C) TempSrc: Skin SpO2: 95% Weight: 112.9 kg (248 lb 14.4 oz) Height: 5' (1.524 m) Physical Exam Constitutional: She is oriented to person, place, and time and well-developed, well-nourished, and in no distress. HENT: Head: Normocephalic and atraumatic. Right Ear: External ear normal. Left Ear: External ear normal. Eyes: Conjunctivae are normal. No scleral icterus. Cardiovascular: Normal rate, regular rhythm and normal heart sounds. Exam reveals no gallop and no friction rub. No murmur heard. Pulmonary/Chest: Effort normal. No respiratory distress. She has wheezes. Abdominal: Soft. Bowel sounds are normal. There is no abdominal tenderness. Musculoskeletal: General: No edema. Cervical back: Neck supple. Neurological: She is alert and oriented to person, place, and time. Skin: Skin is warm and dry. No rash noted. Psychiatric: Mood and affect normal. Nursing note and vitals reviewed. XR CHEST PA+LAT Narrative: Examination: XR CHEST PA+LAT Exam time: 03/01/2021 8:36 AM Clinical history: Cough for one month Comparison: No prior exam Technique: Upright PA and lateral views Findings: Cardiac mediastinal silhouette and pulmonary vasculature are within normal limits. Lungs appear clear. No evidence of pleural effusion. Overall, no radiographic evidence of active chest disease. Impression: IMPRESSION: No radiographic evidence of active chest disease. Referred By: SAMI GIMENEZ Interpreted By: Favian Day MD, 03/01/2021 9:00 AM Assessment & Plan: Jolly was seen today for pneumonia. Diagnoses and all orders for this visit: Pneumonia of both lower lobes due to infectious organism - XR CHEST PA+LAT; Future - VIRTUSSIN A/C 100-10 MG/5ML syrup; Take 5-10 mLs by mouth every 6 (six) hours as needed for Cough. Indications: Cough - cefTRIAXone (ROCEPHIN) injection 1 g - doxycycline hyclate 100 MG capsule; Take 1 capsule (100 mg total) by mouth 2 (two) times daily for 10 days. - Discontinue: ipratropium-albuterol (DUONEB) 0.5-2.5 (3) MG/3ML nebulizer solution 3 mL - predniSONE 20 MG tablet; Take 3 tabs daily for three days, then take 2 tabs daily for three days,then take 1 tab daily for three days Bronchitis Arthritis of left knee - traMADol 50 MG tablet; Take 1 tablet (50 mg total) by mouth every 6 (six) hours as needed for Pain. Indications: Chronic Pain Overactive bladder - oxybutynin XL 5 MG 24 hr tablet; Take 1 tablet (5 mg total) by mouth daily. Discussion/Summary: We will have patient take doxycycline, prednisone, and you Rocephin injection today. She will do a Rocephin injection tomorrow as well and likely oral third- generation cephalosporin following this. She has done well with Rocephin in the past without complication. X-ray does not show any notable pathology the patient has significant wheezing on examination. Will treat for community-acquired pneumonia as well as symptoms of bronchitis. Will have patient use Spiriva Respimat at home as well as albuterol. Will refill tramadol today. Will switch to oxybutynin given cost of Detrol LA. Will determine follow-up based upon patient's improvement in symptoms. Patient verbalized understanding. I spent 35 minutes today reviewing the patient's medical record, obtaining history, performing an exam, ordering medications, tests, and/or procedures, documenting in the medical record, counseling and educating the patient/family/caregiver, reviewing and communicating test results and coordinationof care. Sami Gimenez DO documented in this encounter Plan of Treatment Upcoming Encounters Date Type Department Care Team (Late st Contact Info) Description 10/09/2024 9:30 AM MERGERS AND ACQUISITIONS ASSOCIATE Office Visit [facility] [phone] Carlos Farris MD [facility] [address] [facility] [place] [address] 11/02/2024 10:20 AM MERGERS AND ACQUISITIONS ASSOCIATE Office Visit [facility] Family & Internal Medicine - [address] [phone] Sami Gimenez DO [address] [place] [address] documented as of this encounter Results * XR CHEST PA+LAT (03/01/2021 8:41 AM CDT) Anatomical Region Laterality Modality Chest Radiographic Jody ging 03/01/2021 9:00 AM CDT Impressions 03/01/2021 9:03 AM CDT IMPRESSION: No radiographic evidence of active chest disease. Referred By: SAMI GIMENEZ Interpreted By: Favian Day MD, 03/01/2021 9:00 AM Narrative 03/01/2021 9:03 AM CDT Examination: XR CHEST PA+LAT Exam time: 03/01/2021 8:36 AM Clinical history: Cough for one month Comparison: No prior exam Technique: Upright PA and lateral views Findings: Cardiac mediastinal silhouette and pulmonary vasculature are within normal limits. Lungs appear clear. No evidence of pleural effusion. Overall, no radiographic evidence of active chest disease. Procedure Note Favian Day MD - 03/01/2021 Examination: XR CHEST PA+LAT Exam time: 03/01/2021 8:36 AM Clinical history: Cough for one month Comparison: No prior exam Technique: Upright PA and lateral views Findings: Cardiac mediastinal silhouette and pulmonary vasculature arewithin normal limits. Lungs appear clear. No evidence of pleural effusion.Overall, no radiographic evidence of active chest disease. IMPRESSION: No radiographic evidence of active chest disease. Referred By: SAMI GIMENEZ Interpreted By: Favian Day MD, 03/01/2021 9:00 AM Sami Gimenez DO GENERAL IMAGING Final Re sult documented in this encounter Visit Diagnoses Diagnosis Pneumonia of both lower lobes due to infectious organism- Primary Bronchitis Bronchitis, not specified as acute or chronic Arthritis of left knee Unspecified arthropathy, lower leg Overactive bladder Hypertonicity of bladder documented in this encounter Administered Medications Inactive Administered Medications - up to 3 most recent administrations Medication Order MAR Action Action Date Dose Rate Site cefTRIAXone (ROCEPHIN) injection 1 g 1 g, Intramuscular, Once, 1 dose, On Sat03/01/21 at 0900, Reconstitute with 2.1 mL normal saline, sterile water for injection, or 1% lidocaine to obtain a final concentration of 350 mg/mL.Indications:Pneumoni a of both lower lobes due to infectious organism Given 03/01/2021 8:45 AM CDT 1 g Right Dorsal Gluteal documented in this encounter Additional Health Concerns Assessment Noted Time PHQ-9 Depression Total Score: 12 021 8:10 AM CDT documented as of this encounter Care Teams Insolvency Consultant Relationship Specialty Start Date End Date Sami Gimenez DO [address] [place] [address] PCP - General FAMILY PRACTICE 12/24/19 documented as of this encounter
--- OUTSIDE RECORDS SUMMARY | 2024-09-19 12:24 | XMS_ITS | Encounter Summary ---
Author Organization [facility] Address [address] [place] [address]. [place], [place] [address] [place] [address] Care Team Providers Care Produce Production Team Member Name Role Phone Sami Liriano DO Primary Care Provider + Reason for Visit * Reason Onset Date Comments Edema 12/05/2020 Encounter Details Date Type Department Care Team (Late st Contact Info) Description 12/05/2020 Nurse Triage 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 No further recommendations at this time. ANDING OFFICER HOMICIDE SQUAD * Deb Varela RN - 12/06/2020 12:12 PM CST Patient Called back stating swelling had gone down in bilt lower extremities. Patient did state that she still has some swelling in her hands and this AM- blood pressure [id number]. Patient felt dizzywith slight headache. After taking morning medication patient B/P returned to 130/78 (her normal rang). All other symptoms subsided as well. 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 Scheduled for 12/06/20 at 10 am. LL-12/06/20 ANDING OFFICER HOMICIDE SQUAD * Delores Abreu - 12/06/2020 10:21 AM CST Patient called back in asking to speak to you. I advised her that you would call her back. ANDING OFFICER HOMICIDE SQUAD * Deb Varela RN - 12/05/2020 9:07 AM CST Patient called in with c/o swelling in hands and feet whe she woke u this AM. Patient stated she made homemade spaghetti with canned tomatos last night for dinner. Patient denies SOB, facal or throatswelling. Patient stated my legs and hands just feel tight and bloated . Patient advised to increase fluides related to high salt content in canned tomatoes. Increase ambulation as tolerated and to elevate legs and feet when resting. Also, advised patient to call back of swelling becomes worse,red or painful to touch. Opportunity given for all questions to be answered, no further needs voiced at this time. LL-12/05/20 ANDING OFFICER HOMICIDE SQUAD documented in this encounter Plan of Treatment Upcoming Encounters Date Type Department Care Team (Late st Contact Info) Description 10/09/2024 9:30 AM COMMANDING OFFICER HOMICIDE SQUAD Office Visit [facility] [phone] Carlos Farris MD [address] [facility] [address] [place] [address] 11/02/2024 10:20 AM COMMANDING OFFICER HOMICIDE SQUAD Office Visit [facility] Group Family & Internal Medicine - [address] [phone] Sami Liriano DO [address] [place] [address] documented as of this encounter Visit Diagnoses Not on filedocumented in this encounter Additional Health Concerns Assessment Noted Time PHQ-9 Depression Total Score: 0 10/29/19 20 11:04 AM COMMANDING OFFICER HOMICIDE SQUAD documented as of this encounter Care Teams Produce Production Team Member Relationship Specialty Start Date End Date Sami Liriano DO [address] [place] [address] PCP - General FAMILY PRACTICE 12/24/19 documented as of this encounter
--- OUTSIDE RECORDS SUMMARY | 2024-09-19 12:24 | XMS_ITS | Encounter Summary ---
Author Organization [facility] Address [address] [place] [address]. [place], [place] [address] [place] [address] Care Team Providers Care Senior Data Architect Name Role Phone Sami Liriano DO Primary Care Provider + Reason for Visit * Reason Onset Date Comments Follow Up Call 03/14/2021 Encounter Details Date Type Department Care Team (Late st Contact Info) Description 03/14/2021 Telephone [facility] Family & Internal Medicine [facility] [address] [place] [address] Sami Liriano DO 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 No / Unsure 03/03/2021 9:00 AM CDT documented as of this encounter Progress Notes * Radha Oglesby MA - 03/16/2021 5:48 PM CDT Patient notified and v/u * Christel Bean RN - 03/14/2021 3:18 PM CDT Left message for patient to call * Sami Liriano DO - 03/14/2021 1:09 PM CDT It can be difficult to say how long exactly, but as long as she's continuing to improve I'd continue to monitor. Coughs can last even after infection is cleared for several weeks. * Delores Abreu - 03/14/2021 10:25 AM CDT Patient called in stating that she is feeling better but still has a cough and fatigue. She is asking how long this will go on? documented in this encounter Plan of Treatment Upcoming Encounters Date Type Department Care Team (Late st Contact Info) Description 10/09/2024 9:30 AM TITLE SPECIALIST Office Visit [facility] [phone] Carlos Farris MD [facility] [address] [place] [address] 11/02/2024 10:20 AM TITLE SPECIALIST Office Visit [facility] Group Family & Internal Medicine - [address] [phone] Sami Liriano DO [address] [place] [address] documented as of this encounter Visit Diagnoses Not on filedocumented in this encounter Additional Health Concerns Assessment Noted Time PHQ-9 Depression Total Score: 12 021 8:10 AM CDT documented as of this encounter Care Teams Senior Data Architect Relationship Specialty Start Date End Date Sami Liriano DO [address] [place] [address] PCP - General FAMILY PRACTICE 12/24/19 documented as of this encounter
--- OUTSIDE RECORDS SUMMARY | 2024-09-19 12:24 | XMS_ITS | Encounter Summary ---
Author Organization [facility] Address [facility]. [place], [place] [address] [place] [address] Care Team Providers Care Automation Controls Engineer Name Role Phone Sami Liriano Primary Care Provider + Reason for Visit * Reason Comments Allied Health Visit rocephin injection Encounter Details Date Type Department Care Team (Latest Contact Info) Description 03/02/2021 8:40 AM CDT Allied Health/Nurse Visit [facility] Group Family & Internal Medicine [address] [phone] Allied Health Visit (rocephin injection) Social History Tobacco Use Types Packs/Day Years [...] on file Legal Sex Female 12:43 PM SCIENCE WRITER Gender Identity Female 12/18/2021 6:31 AM CDT Sexual Orientation Straight 01/15/2022 6: 11 AM CDT 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 No / Unsure 03/02/2021 8:26 AM CDT documented as of this encounter Plan of Treatment Upcoming Encounters Date Type Department Care Team (Late st Contact Info) Description 10/09/2024 9:30 AM SCIENCE WRITER Office Visit [facility] [phone] Carlos Farris MD [address] [facility] [address] [place] [address] 11/02/2024 10:20 AM SCIENCE WRITER Office Visit [facility] Medical Group Family & Internal Medicine - [address] [phone] Sami Liriano DO [address] [place] [address] documented as of this encounter Visit Diagnoses Diagnosis Pneumonia of both lower lobes due to infectious organism- Primary documented in this encounter Administered Medications Inactive Administered Medications - up to 3 most recent administrations Medication Order MAR Action Action Date Dose Rate Site cefTRIAXone (ROCEPHIN) injection 1 g 1 g, Intramuscular, Once, 1 dose, On Sana 03/02/21 at 0900, Reconstitute with 2.1 mL normal saline, sterile water for injection, or 1% lidocaine to obtain a final concentration of 350 mg/mL.Indications:Pneumoni a of both lower lobes due to infectious organism Given 03/02/2021 8:38 AM CDT 1 g Left Upper Outer Quadrant documented in this encounter Additional Health Concerns Assessment Noted Time PHQ-9 Depression Total Score: 12 12/15/2 021 8:10 AM CDT documented as of this encounter Care Teams Automation Controls Engineer Relationship Specialty Start Date End Date Sami Liriano DO [address] [place] [address] PCP - General FAMILY PRACTICE 12/24/19 documented as of this encounter
--- OUTSIDE RECORDS SUMMARY | 2024-09-19 12:24 | XMS_ITS | Encounter Summary ---
Author Organization [facility] Address [facility]. [place], [place] [address] [place] [address] Care Team Providers Care Paper Cone Machine Operator Name Role Phone Sami Liriano Primary Care Provider + Encounter Details Date Type Department Care Team (Latest Contact Info) Description 03/01/2021 Travel Social History Tobacco Use Types Packs/Day [...] on file Legal Sex Female 12:43 PM MARRIAGE COUNSELOR MINISTER Gender Identity Female 12/18/2021 6:31 AM CDT [...] st Contact Info) Description 10/09/2024 9:30 AM MARRIAGE COUNSELOR MINISTER Office Visit [facility] [phone] Carlos Farris MD [address] [facility] [address] [place] [address] 11/02/2024 10:20 AM MARRIAGE COUNSELOR MINISTER Office Visit [facility] Family & Internal Medicine - [address] [phone] Sami Liriano DO [address] [place] [address] documented as of this encounter Visit Diagnoses Not on filedocumented in this encounter Additional Health Concerns Assessment Noted Time PHQ-9 Depression Total Score: 12 12/15/2 021 8:10 AM CDT documented as of this encounter Care Teams Paper Cone Machine Operator Relationship Specialty Start Date End Date Sami Liriano DO [address] [place] [address] PCP - General FAMILY PRACTICE 12/24/19 documented as of this encounter
--- OUTSIDE RECORDS SUMMARY | 2024-09-19 12:24 | XMS_ITS | Encounter Summary ---
Author Organization [facility] Address [facility]. 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 No / Unsure 05/18/2021 11:52 AM CDT documented as of this encounter Last Filed Vital Signs Vital Sign Reading Time Taken Comments Blood Pressure 128/62 05/18/2021 12:08 PM CDT Pulse 63 05/18/2021 12:08 PM CDT Temperature - - Respiratory Rate - - Oxygen Saturation 98% 05/18/2021 12:08 PM CDT Inhaled Oxygen Concentration - - Weight 115.2 kg (254 lb) 05/18/2021 12:08 PM CDT Height - - Body Mass Index 49.61 03/01/2021 7:44 AM CDT documented in this encounter Progress Notes * Melanie Lance MA - 05/18/2021 12:40 PM CDT Patient c/o feeling like her bp is elevated and some shortness of breath. She also c/o some dizziness and edema all over. She has noticed some weight gain as well. * Deb Varela RN - 05/18/2021 12:40 PM CDT Patient came into office for blood pressure check. Blood pressure was 128/62 pulse 66. Patient was slightly diaphoretic, +2 pitting edema on bilateral extremities. Lung sounds clear upon auscultationwith demised sounds in right lower lobe. No available appointments. Advised patient to go to ED forfurther evaluation. 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 Advised against going back to work. However, patient stated she had too. Opportunity given for all questions to be answered, no further needs voiced at this time. LL-05/18/21 * Sami Liriano DO - 05/18/2021 12:40 PM CDT Please ensure she did go tomorrow. Call only if no evidence that she did go. documented in this encounter Plan of Treatment Upcoming Encounters Date Type Department Care Team (Late st Contact Info) Description 10/09/2024 9:30 AM LADLE CLEANER Office Visit [facility] [phone] Carlos Farris MD [facility] [address] [place] [address] 11/02/2024 10:20 AM LADLE CLEANER Office Visit [facility] Medical Group Family & Internal Medicine - [address] [phone] Sami Liriano DO [address] [place] [address] documented as of this encounter Visit Diagnoses Diagnosis Hypertension- Primary Unspecified essential hypertension documented in this encounter Additional Health Concerns Assessment Noted Time PHQ-9 Depression Total Score: 12 12/15/ 021 8:10 AM CDT documented as of this encounter Care Teams Pediatric Dietician Relationship Specialty Start Date End Date Sami Liriano DO [address] [place] [address] PCP - General FAMILY PRACTICE 12/24/19 documented as of this encounter
--- OUTSIDE RECORDS SUMMARY | 2024-09-19 12:24 | XMS_ITS | Encounter Summary ---
Author Organization [facility] Address [address] [place] [address]. [place], [place] [address] [place] [address] Care Team Providers Care Toolmaker Name Role Phone Sami Liriano DO Primary Care Provider + Reason for Visit * Reason Onset Date Comments Results 01/02/2021 Encounter Details Date Type Department Care Team (Late st Contact Info) Description 01/02/2021 Telephone [facility] Medical Group Family & Internal Medicine [id number] [place] [address] Sami Liriano DO [facility] [place] [address] Results Social History Tobacco Use [...] on file Legal Sex Female 12:43 PM PERSONAL FINANCIAL ADVISOR Gender Identity Female 12/18/2021 6:31 AM CDT Sexual Orientation Straight 01/15/2022 6: 11 AM CDT Occupation Industry Job Start Date Job End Date [employer] Not on file Not on file Not on franck e COVID-19 Exposure Response Date Recorded In the last month, have you been in contact with someone who was confirmed or suspected to have Coronavirus / COVID-19? No / Unsure 12/30/2020 6:36 AM CDT documented as of this encounter Progress Notes * Radha Oglesby MA - 01/02/2021 2:51 PM CDT Patient notified and v/u * Radha Oglesby MA - 01/02/2021 2:51 PM CDT ----- Message from Sami Liriano DO sent at 01/02/2021 9:45 AM CDT ----- Findings do not show any signs of [...] st Contact Info) Description 10/09/2024 9:30 AM PERSONAL FINANCIAL ADVISOR Office Visit [facility]-[address] [phone] Carlos Farris MD [facility] [address] [place] [address] 11/02/2024 10:20 AM PERSONAL FINANCIAL ADVISOR Office Visit [facility] Medical Group Family & Internal Medicine - [address] [phone] Sami Liriano DO [address] [place] [address] documented as of this encounter Visit Diagnoses Not on filedocumented in this encounter Additional Health Concerns Assessment Noted Time PHQ-9 Depression Total Score: 12 12/15/ 021 8:10 AM CDT documented as of this encounter Care Teams Toolmaker Relationship Specialty Start Date End Date Sami Liriano DO [address] [place] [address] PCP - General FAMILY PRACTICE 12/24/19 documented as of this encounter
--- OUTSIDE RECORDS SUMMARY | 2024-09-19 12:24 | XMS_ITS | Encounter Summary ---
Author Organization [facility] Address [facility]. 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 Not [...] Contact Info) Description 10/09/2024 9:30 AM LOAN AUDITOR Office Visit [facility] [phone] Carlos Farris MD [facility] [address] [place] [address] 11/02/2024 10:20 AM LOAN AUDITOR Office Visit [facility] Medical Group Family & Internal Medicine - [address] [phone] Sami Liriano DO [address] [place] [address] documented as of this encounter Visit Diagnoses Not on filedocumented in this encounter Additional Health Concerns Assessment Noted Time PHQ-9 Depression Total Score: 12 12/15/2 021 8:10 AM CDT documented as of this encounter Care Teams Retail Coordinator Relationship Specialty Start Date End Date Sami Liriano DO [address] [place] [address] PCP - General FAMILY PRACTICE 12/24/19 documented as of this encounter
--- OUTSIDE RECORDS SUMMARY | 2024-09-19 12:24 | XMS_ITS | Encounter Summary ---
Author Organization [facility] Address [facility]. [place], [place] [address] [place] [address] Care Team Providers Care Epic Anesthesia Analyst Name Role Phone Sami Liriano Nicole AGUIAR Primary Care Provider + Reason for Visit * Reason Comments Allied Health Visit rocephin injection Encounter Details Date Type Department Care Team (Latest Contact Info) Description 03/03/2021 9:00 AM CDT Allied Health/Nurse Visit [facility] Medical [facility] Family & Internal Medicine [address] [phone] Allied Health Visit (rocephin injection) [...] on file Legal Sex Female 12:43 PM CONTINUOUS DRYOUT OPERATOR HELPER Gender Identity Female 12/18/2021 6:31 AM CDT Sexual Orientation Straight 01/15/2022 6: 11 AM CDT 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 Not on file [...] st Contact Info) Description 10/09/2024 9:30 AM CONTINUOUS DRYOUT OPERATOR HELPER Office Visit [facility] [phone] Carlos Farris MD [address] [facility] [address] [place] [address] 11/02/2024 10:20 AM CONTINUOUS DRYOUT OPERATOR HELPER Office Visit [facility] Medical [facility] Family & Internal Medicine - [address] [phone] Sami Liriano DO [address] [place] [address] documented as of this encounter Visit Diagnoses Diagnosis Pneumonia of both lower lobes due to infectious organism- Primary documented in this encounter Administered Medications Inactive Administered Medications - up to 3 most recent administrations Medication Order MAR Action Action Date Dose Rate Site cefTRIAXone (ROCEPHIN) injection 1 g 1 g, Intramuscular, Once, 1 dose, On Sat03/03/21 at 0930, Reconstitute with 2.1 mL normal saline, sterile water for injection, or 1% lidocaine to obtain a final concentration of 350 mg/mL.Indications:Pneumoni a of both lower lobes due to infectious organism Given 03/03/2021 9:15 AM CDT 1 g Right Upper Outer Quadrant documented in this encounter Additional Health Concerns Assessment Noted Time PHQ-9 Depression Total Score: 12 12/15/ 021 8:10 AM CDT documented as of this encounter Care Teams Epic Anesthesia Analyst Relationship Specialty Start Date End Date Sami Liriano DO [address] [place] [address] PCP - General FAMILY PRACTICE 12/24/19 documented as of this encounter
--- OUTSIDE RECORDS SUMMARY | 2024-09-19 12:25 | XMS_ITS | Encounter Summary ---
Author Organization [facility] Address [facility]. [place], [place] [id number] [place] [phone] Care Team Providers Care Secretarial Teacher Name Role Phone Sami Liriano Primary Care Provider + Reason for Visit * Auth/Cert Specialty Diagnoses / Procedures Referred By Shereen benton Referred To Contact Diagnoses Pharyngoesophageal dysphagia Positive colorectal cancer screening using Cologuard test dysphagia, positive cologuard Procedures COLONOSCOPY DIAGNOSTIC WITH/WITHOUT SPECIMEN BRUSH/WASH EGD DX WITH BRUSH/WASH Referral ID Status Reason Start Date Expiration Date Visits Re quested Visits Authorized [id number] 1 1 Encounter Details Date Type Department Care Team (Latest Contact Info) Description 04/27/2020 8:24 AM CDT - 04/27/2020 12:20 PM CDT Hospital Encounter [facility] [address] [place] [address] Puma Keenan MD [address] [address] Discharge Disposition: Home or Self Care (Routine Discharge) Social History Tobacco Use Types Packs/Day Years Used Date Smoking Tobacco: Former Cigarettes 1 12 1976 Smokeless Tobacco: Never Alcohol Use Standard Drinks/Week Comments Yes 0 (1 standard drink = 0.6 oz pur e alcohol) AUDIT-C Answer Date Recorded Frequency of Alcohol Consumption 2-3 times a wee k 10/29/2019 Average Number of Drinks 1 or 2 020 Frequency of Binge Drinking Never 10/02 PHQ-2 Answer Date Recorded PHQ-2 Score 0 10/29/2019 Comments No Sex and Gender Information Value Date Recorded Sex Assigned at Not on file Legal Sex Female 12:43 PM SERVICE REPRESENTATIVE Gender Identity Female 12/18/2021 6:31 AM CDT Sexual Orientation Straight 01/15/2022 6: 11 AM CDT COVID-19 Exposure Response Date Recorded In the last month, have you been in contact with someone who was confirmed or suspected to have Coronavirus / COVID-19? No / Unsure 04/27/2020 8:23 AM CDT documented as of this encounter Last Filed Vital Signs Vital Sign Reading Time Taken Comments Blood Pressure 145/60 04/27/2020 12:00 PM CDT Pulse 63 04/27/2020 12:00 PM CDT Temperature 36.7 ??C (98 ??F) 04/27/2020 11:45 AM CDT Respiratory Rate 18 04/27/2020 12:00 PM CDT Oxygen Saturation 97% 04/27/2020 12:00 PM CDT Inhaled Oxygen Concentration - - Weight 113.4 kg (250 lb) 04/27/2020 8:49 AM CDT Height 152.4 cm (5') 04/27/2020 8:49 AM CDT Body Mass Index 48.82 04/27/2020 8:49 AM CDT documented in this encounter Discharge Instructions * Discharge Instructions* Lavinia Cintron RN - 04/27/2020 12:12 PM CDT Anesthesia general information Everyone recovers form surgery differently. Your recovery depends on the type of surgery performed,your age, level of activity before the surgery, and your overall health. To help the recovery process and for your safety, we recommend: ??? Have a family member of friend stay with you the first 24 hours after surgery. ??? Don't drive or drink alcohol or sign legal documents the first 24 hours after surgery. ??? Don't use heavy machinery, or operate power tools while taking pain medications. ??? Don't smoke-smoking increases your chance of of lung infections after surgery and decreases blood-flow slowing the healing process. ??? Don't skip meals- doing so may make you feel dizzy, shaky or anxious. ??? Decrease caffeine consumption- caffeine can make you feel anxious and nervous. ??? Take all medications as prescribed by your doctor. ??? Wash your hands often to avoid germs that cause infections. ??? Wear comfortable, loose fitting clothing that does not place pressure on your incision. * Attachments The following attachments cannot be sent through Care Everywhere. * Upper GI Endoscopy Discharge Instructions (Montenegrin) * Colonoscopy Discharge Instructions (Montenegrin) * Soft Diet (Montenegrin) documented in this encounter Medications at Time of Discharge acetaminophen 325 MG tablet Take 2 tablets (650 mg total) by mouth every 6 (six) hours as needed for Pain. buPROPion SR 150 MG 12 hr tablet 12/14/2019 0 METOPROLOL SUCCINATE ER 50 MG 24 hr tabletIndications: Essential hypertension TAKE 1 TABLET BY MOUTH EVERY DAY 30 tablet 04/12/2020 0 Na sulfate-K sulfate-Mg sulfate (SUPREP BOWEL PREP KIT) 17.5-3.13-1.6 GM/177ML SolutionIndication s:Positive colorectal cancer screening using Cologuard test Take 177 mLs by mouth every 12 (twelve) hours. Take as directed by instruction sheet. 2 Bottle 04/15/2020 0 omeprazole 20 MG capsule TAKE 1 CAPSULE BY MOUTH EVERY DAY BEFORE A MEAL 08/24/2019 1 potassium chloride CR 10 MEQ tabletIndications: Bilateral lower extremity edema Take one tablet by mouth once daily 90 tablet 1 03/11/2020 1 tolterodine LA 4 MG 24 hr capsule Take 4 mg by mouth daily. 09/07/2019 1 documented as of this encounter Progress Notes * Puma Keenan MD - 04/27/2020 12:20 PM CDT All your colon polyps are benign, but repeat colon in 1 year because you had many polyps documented in this encounter H&P Notes * Puma Keenan MD - 04/27/2020 10:30 AM CDT HISTORY AND PHYSICAL INTERVAL NOTE: I have reviewed Jolly Sargent History & Physical which was performed within the past 30 days. After examining Jolly Sargent, no change has occurred in the patient's condition since the H&P was completed. Informed Consent Discussion: Potential benefits, risks, and side effects of the patient's procedure/surgery; the likelihood of the patient achieving his or her goals; and any potential problems that might occur during recuperation were discussed with the patient/family/personal outside sales representative. Reasonable alternatives to the patient's proposed procedure/surgery including benefits, risks, and side effects related to the alternatives and the risks related to not receiving the proposed care were also discussed with the patient/family/personal outside sales representative. Questions were answered and the patient/family/personal outside sales representative verbalized understanding and desires to proceed. Source Note - Jenn Cortes NP - 04/15/2020 2:40 PM CDT Images from the original note were not included. Gastroenterology Initial Visit Reason for Visit: Consult For Colonoscopy (no past colonoscopy, had positive cologuard, she states she did see some blood on tissue when she would wipe ever since December) History of Present Illness: Jolly Sargent is a 65-year-old female being seen in clinic for referral by Sami Liriano DO for diagnostic colonoscopy. Bowel habits are 2-3 times per day. Soft and formed. No constipation or diarrhea, no hematochezia or melena. No weight loss. Blood on tissue everyday. No blood on stool has been going on since before Uses activia No nausea, vomiting, +dysphagia, no abdominal pain,+ heart burn or acid reflux. Appropriate appetite. Prior abdominal surgeries: , lap, Hysterectomy. No colonoscopies in the past. No prior h/o hepatitis, no prior tattoos, no prior blood transfusions, no drug use, + 1 drink a month ETOH use, and no smoking. No family history of GI/Colon Cancer. Sister and brother had colon polyps. NSAID/Blood thinner use: None ROS: Review of Systems Constitutional: Negative for chills, fever and malaise/fatigue. Negative for decreased appetite HENT: Negative for sore throat. Eyes: Glasses and has cataract on left. Respiratory: Negative for shortness of breath. Cardiovascular: Positive for leg swelling (bilateral in both calves and feet. takes diuretic. ). Negative for chest pain. Has echo scheduled next week due to leg swelling. Has been getting BP meds changed. Gastrointestinal: Refer to HPI. Musculoskeletal: Negative for joint pain. Endo/Heme/Allergies: Does not bruise/bleed easily. Psychiatric/Behavioral: Negative for depression. The patient is nervous/anxious (Loss of parents and care for handicap sister. ). Medications: Current Outpatient Medications: ??? acetaminophen 325 MG tablet, Take 325 mg by mouth. Take 2 in the am and 2 tabs in the pm and 1 PRN, Disp: , Rfl: ??? buPROPion SR 150 MG 12 hr tablet, , Disp: , Rfl: ??? lisinopril 40 MG tablet, Take 1 tablet (40 mg total) by mouth daily., Disp: 90 tablet, Rfl: 1 ??? METOPROLOL SUCCINATE ER 50 MG 24 hr tablet, TAKE 1 TABLET BY MOUTH EVERY DAY, Disp: 30 tablet, Rfl: 0 ??? Na sulfate-K sulfate-Mg sulfate (SUPREP BOWEL PREP KIT) 17.5-3.13-1.6 GM/177ML Solution, Take 177 mLs by mouth every 12 (twelve) hours. Take as directed by instruction sheet., Disp: 2 Bottle, Rfl: 0 ??? omeprazole 20 MG capsule, TAKE 1 CAPSULE BY MOUTH EVERY DAY BEFORE A MEAL, Disp: , Rfl: ??? potassium chloride CR 10 MEQ tablet, Take one tablet by mouth once daily, Disp: 90 tablet, Rfl:1 ??? tolterodine LA 4 MG 24 hr capsule, Take 4 mg by mouth daily., Disp: , Rfl: ??? furosemide 20 MG tablet, Take one tablet once daily for 3 days, Disp: 90 tablet, Rfl: 1 ??? HYDROCHLOROTHIAZIDE 25 MG tablet, TAKE 1 TABLET BY MOUTH EVERY DAY IN THE MORNING, Disp: 30 tablet, Rfl: 1 Allergies: Allergies Allergen Reactions ??? Penicillins Rash ??? Sulfa Antibiotics Rash Medical History: Past Medical History: Diagnosis Date ??? Arthritis ??? Arthritis of left knee 11/08/2019 ??? Depression ??? GERD (gastroesophageal reflux disease) ??? Hypertension ??? Overactive bladder Surgical History: Past Surgical History: Procedure Laterality Date ??? ANKLE SURGERY left ??? SECTION ??? EGD ??? HERNIA REPAIR ??? SHOULDER SURG PROC UNLISTED right ??? TONSILLECTOMY ??? TOTAL KNEE ARTHROPLASTY right Social History: Social History Tobacco Use ??? Smoking status: Former Smoker Packs/day: 1.00 Years: 12.00 Pack years: 12.00 Types: Cigarettes Last attempt to quit: 1977 Years since quittin.5 ??? Smokeless tobacco: Never Used Substance Use Topics ??? Alcohol use: Yes Frequency: 2-3 times a week Drinks per session: 1 or 2 Binge frequency: Never ??? Drug use: Never Family History: Family History Problem Relation Name Age of Onset ??? Alzheimers Mother ??? Heart Attack Father ??? Heart Disease Father ??? Alzheimers Father ??? Alzheimers Maternal Grandmother ??? Heart Disease Paternal Grandfather PE: Filed Vitals: 04/15/20 1501 BP: 142/76 Pulse: 68 Resp: 20 SpO2: 96% Weight: 115.2 kg (254 lb) Physical Exam Constitutional: She appears well-developed. Cardiovascular: Normal rate and regular rhythm. Pulmonary/Chest: Breath sounds normal. No respiratory distress. Abdominal: Soft. Bowel sounds are normal. She exhibits no mass. There is no tenderness. There is norebound and no guarding. No hernia. Abdomen is large with pannus nontender to palpate all quadrants as well as epigastric region. Musculoskeletal: She exhibits no edema. Neurological: She is alert. Skin: Skin is warm and dry. Labs Reviewed: Lab Results Component Value Date WBC 10.6 03/03/2020 RBC 4.77 03/03/2020 HGB 13.1 03/03/2020 HCT 42.3 03/03/2020 RDW 14.6 (H) 03/03/2020 PLT 244 03/03/2020 NA 139 03/18/2020 K 4.5 03/18/2020 CL 106 03/18/2020 AGAP 6.3 03/18/2020 GLU 118 (H) 03/18/2020 BUN 19 (H) 03/18/2020 CR 0.98 03/18/2020 GFRNON 60 (L) 03/18/2020 GFR 69 (L) 03/18/2020 CA 9.2 03/18/2020 ALB 4.1 03/03/2020 ALT 24 03/03/2020 AST 18 03/03/2020 ALKP 102 03/03/2020 Endoscopic Results Reviewed: Colonoscopy never performed. 04/17/[address] Eric Valencia Findings: In the lower third of the esophagus a mid esophageal ring was present. In the antrum, moderate chronic superficial patchy gastritis was seen. The gastritis had the following findings erythematous, and ulcerative. There was no mucosal bleeding. The duodenum was examined and no abnormalities were seen. Bougie dilation Morrison size 54 Egyptian used. 11/26/2019+ Cologuard Diagnoses/Impression: Positive colorectal cancer screening using cologuard test (primary encounter diagnosis) Pharyngoesophageal dysphagia Brbpr (bright red blood per rectum) 1. Moderate colon cancer risk: Positive Cologuard test on 11/26/2019. Patient has blood on toilet tissue for approximately 8 months, has never had a colonoscopy in the past. She does have both siblings with colon polyps reported. We will proceed with diagnostic colonoscopy based on positive Cologuard test. 2. Pharyngoesophageal dysphagia: Patient has had difficulty with food getting caught just below thethroat and proximal esophagus. This has been something is been going on for several years patient had a esophageal ring with a dilation with a 54 Egyptian Morrison on 04/17/2019 which did improve her condition. However she continues to still have some dysphagia progressively over time. Patient does take omeprazole 20 mg daily and does occasionally at least once or twice a week take twice a day. To control heartburn and reflux symptoms. Will perform diagnostic EGD with possible dilation due to dysphagia. 3. Comorbid Conditions: HTN, arthritis, depression, overactive bladder Recommendations and Plan: ?? Schedule EGD and Colonoscopy at [facility] ?? Suprep split prep ?? It is recommended to consume 20-35 grams of fiber per day and at least 64 ounces/2 liters of water per day. ?? All questions answered ?? More recommendations to follow endoscopic evaluation Orders placed this encounter: Orders Placed This Encounter ??? Na sulfate-K sulfate-Mg sulfate (SUPREP BOWEL PREP KIT) 17.5-3.13-1.6 GM/177ML Solution Risks/Benefits/Options: Patient presented with risks (can include but are not limited to: discomfort, missing lesions, allergic or adverse reaction to the sedation, perforation of the bowel or upper GI tract which may require hospitalization and surgery, bleeding, infection, aspiration), benefits, and alternatives to the procedure(s) and are in agreement to proceed as planned. Jenn Cortes NP 04/15/2020 documented in this encounter OR Notes * Op Note - Puma Keenan MD - 04/27/2020 11:31 AM CDT [facility] OpNote COLONOSCOPY WITH BIOPSY X 3 , EGD DX WITH DILATATION Procedure Note Jolly Romeo Arie 04/27/2020 0949 Procedure(s) (LRB): COLONOSCOPY WITH BIOPSY X 3 (N/A) EGD DX WITH DILATATION (N/A) Surgeon(s): Puma Keenan MD Staff: Circulating Nurse 1: Denisha Solano RN Anesthesia: Monitor Anesthesia Care STAPLE CUTTER: Eliecer Mcginnis CRNA Pre-Op Diagnosis: dysphagia, positive cologuard Post-Op Diagnosis: Dysphagia. Multiple colon polyps removed. Procedure Description: Informed consent was obtained earlier. Patient was brought to the OR and placed in supine lateral decubitus position and sedated under MAC anesthesia. EGD was bougie dilation. GIF 190 gastroscope was lubricated inserted into the hypopharynx and advanced by direct technique. Upper middle and distal esophagus essentially looks normal. No obvious strictures are seen. Stomach distended well. Retroflexed views of the cardia fundus angularis revealed no abnormalities. Antrum looked normal. The first and second parts of duodenum was normal. Scope was withdrawn into the distal stomach. A guidewire was then threaded through the scope and the soft tip was left in the stomach and the scope was withdrawn by one-to-one approximation of. Afterward a 54 Egyptian savory dilator was threaded over the wire well lubricated inserted for single pass which was well-tolerated. Colonoscopy snare polypectomies. CF 190 colonoscope was lubricated inserted into the rectum and advanced to the cecum. Bowel prep was excellent. Cecum was identified by the ileocecal valve and the appendiceal orifice. I ran out of scope and the cecum was very difficult to reach. However intubation was successful and there was a polyp located close to the appendiceal orifice. Using a #10 snare it was encircled at the base and using a combination of cut and coag was completely transected and retrieved. No attempt was made to put a clip on it because it was very difficult to reach. Polyp was dragged out with the scope. The remaining portions of the ascending colon was examined to be normal. Tra nsverse colon normal. Descending normal. Sigmoid colon there was a polyp that was hot snared. Likewise in the rectum 2 more small polyps were hot snared and retrieved. Findings: Essentially negative upper endoscopy but given symptoms patient was dilated to 54 Egyptian Savary dilator. Multiple colon polyps removed. Cecal polyp was very difficult to reach but was completely removed. Plan: Check pathology. Repeat colonoscopy is recommended in 1 year. Complications: none Estimated Blood Loss: * No values recorded between 04/27/2020 10:50 AM and 04/27/2020 11:31 AM * Specimens: Order Name Source Comment Collection Info Order Time PATHOLOGY COLON Collected By: Puma Keenan MD 04/27/2020 11:29 AM Voice recognition software utilized. PUMA KEENAN MD Date: 04/27/2020 Time: 11:31 AM Voice recognition software utilized. documented in this encounter Plan of Treatment Upcoming Encounters Date Type Department Care Team (Late st Contact Info) Description 10/09/2024 9:30 AM SERVICE REPRESENTATIVE Office Visit [facility] [phone] Carlos Farris MD [address] [address] [place] [address] 11/02/2024 10:20 AM SERVICE REPRESENTATIVE Office Visit [facility] Family & Internal Medicine - [address] [phone] Sami Liriano DO [address] [place] [address] documented as of this encounter Procedures Procedure Name Priority Date/Time Associated Diagnosis Comments PATHOLOGY Routine 04/27/2020 11:19 AM CDT EGD DX WITH BRUSH/WASH 04/27/2020 10:35 AM CDT Pharyngoesophagea l dysphagia Positive colorectal cancer screening using Cologuard test Special Needs 0900 COLONOSCOPY DIAGNOSTIC WITH/WITHOUT SPECIMEN BRUSH/WASH 04/27/2020 10:35 AM CDT Pharyngoesophagea l dysphagia Positive colorectal cancer screening using Cologuard test Special Needs 0900 documented in this encounter Results * Pathology (04/27/2020 11:19 AM CDT) Tissue specimen (specimen) COLON STRUCTURE / Unknown 04/27/2020 11:19 AM CDT Tissue specimen (specimen) COLON STRUCTURE / Unknown 04/27/2020 11:25 AM CDT Tissue specimen (specimen) COLON STRUCTURE / Unknown 04/27/2020 11:29 AM CDT Narrative [facility] - 04/28/2020 1:27 PM CDT [id number] Date of Service: ??04/27/2020 Preoperative Diagnosis: ??Dysphagia, positive Cologuard GROSS DESCRIPTION: ??The specimen is received in formalin in three contains on 04/27/2020. The first container is labeled with the patient's name and cecal polyp. ?? The specimen consists of a single pink-gallardo ovoid fragment of tissue measuring 1 cm x 0.6 x 0.2. ??The resected margin is inked. ??It is bisected and submitted entirely in block A. The second container is labeled with the patient's name and sigmoid polyp. ??The specimen consists of a single gallardo ovoid fragment of tissue measuring 0.2 cm in greatest dimension. ??It is inked and submitted entirely in block B. The third container is labeled with the patient's name and rectal polyp. The specimen consists of two pink-gallardo ovoid fragments of tissue measuring 0.3 up to 0.5 cm in greatest dimension. ??The polyps are inked and submitted entirely in block C. CPT Code: ??10152 x3 D: ??04/27/2020 02:52 PM #[id number] T: ??04/27/2020 03:05 PM /NTS A copy of this report has been sent to: [facility] PATSY [id number] MICROSCOPIC DIAGNOSIS: I. ??Rectal polyp: - Benign flat ??serrated adenoma. - No dysplasia present. II. ??Sigmoid colon polyp: - Hyperplastic polyp. III. ??Polyp from rectum: ?? - Hyperplastic polyp showing coagulation artifact. ? MICROSCOPIC DESCRIPTION: Block A (rectal polyp) Reveal sections of a flat serrated adenoma. ?? The colonic glands are serrated in shape and lined by columnar cell with mucinous cytoplasm. ??The serration involves the deep portions of the crypts. ??No dysplasia present. ?? Block B (sigmoid colon) reveals sections of hyperplastic polyp. ??The colonic glands are focally serrated and lined by benign columnar cell. ??No dysplasia present. Block C (rectal polyp) reveals sections of hyperplastic polyp. ??The colonic glands are focally serrated and lined by benign columnar cell. ?? The polyp shows coagulation artifact. ?? Site: ??[facility] D: ??04/28/2020 11:35 AM #[id number] T: ??04/28/2020 12:03 PM /NTS Puma Keenan MD PATHOLOGY/CYTOLOGY ORDERABLES Fi nal Result [facility] [address] [place] [address], documented in this encounter Visit Diagnoses Diagnosis Pharyngoesophageal dysphagia Dysphagia, pharyngoesophageal phase Positive colorectal cancer screening using Cologuard test documented in this encounter Admitting Diagnoses Diagnosis Pharyngoesophageal dysphagia Dysphagia, pharyngoesophageal phase Positive colorectal cancer screening using Cologuard test documented in this encounter Administered Medications Inactive Administered Medications - up to 3 most recent administrations Medication Order MAR Action Action Date Dose Rate Site lactated ringers infusion at 10 mL/hr, Intravenous, Continuous, Starting on Sat04/27/20 at 0845, Until Sat04/27/20 at 1432, Infuse at TKO rate, Pre-Op New Bag 04/27/2020 9:09 AM CDT 10 mL/hr ondansetron (ZOFRAN) injection 4 mg 4 mg, Intravenous, Once, 1 dose, On Sat04/27/20 at 1045, On admission, Pre-Op Given 04/27/2020 10:21 AM CDT 4 mg documented in this encounter Active and Recently Administered Medications Times are shown in CDT. Scheduled Medication Order 04/25/2020 04/26/2020 04/27/2020 ondansetron (ZOFRAN) injection 4 mg (COMPLETED) 4 mg, Intravenous, Once, 1 dose, On Sat04/27/20 at 1045, On admission, Pre-Op 1021 (Given - Provid er: Maira Mirza RN) Continuous Medication Order 04/25/2020 04/26/2020 04/27/2020 lactated ringers infusion at 10 mL/hr, Intravenous, Continuous, Starting on Sat04/27/20 at 0845, Until Sat04/27/20 at 1432, Infuse at TKO rate, Pre-Op 0909 (New Bag - Prov ider: Maira Mirza RN)1147 (Infusion Stop Time - Provider: Maira Mirza RN) documented in this encounter Additional Health Concerns Assessment Noted Time PHQ-9 Depression Total Score: 0 10/29/19 11:04 AM SERVICE REPRESENTATIVE documented as of this encounter Care Teams Secretarial Teacher Relationship Specialty Start Date End Date Sami Liriano DO [address] [place] [id number] PCP - General FAMILY PRACTICE 12/24/19 documented as of this encounter
--- OUTSIDE RECORDS SUMMARY | 2024-09-19 12:25 | XMS_ITS | Encounter Summary ---
Author Organization [facility] Address [address] [place] [address]. [place], [place] [phone] [place] [id number] Care Team Providers Care Knowledge Manager Name Role Phone Sami Liriano Primary Care Provider + Encounter Details Date Type Department Care Team (Latest Contact Info) Description 04/27/2020 Travel Social History Tobacco Use Types Packs/Day [...] file Legal Sex Female 12:43 PM CELL TESTER Gender Identity Female 12/18/2021 6:31 AM CDT [...] Contact Info) Description 10/09/2024 9:30 AM CELL TESTER Office Visit [facility] [phone] Carlos Farris MD [facility] [address] [place] [address] 11/02/2024 10:20 AM CELL TESTER Office Visit [facility] Family & Internal Medicine - [address] [phone] Sami Liriano DO [address] [place] [address] documented as of this encounter Visit Diagnoses Not on filedocumented in this encounter Additional Health Concerns Assessment Noted Time PHQ-9 Depression Total Score: 0 10/29/19 20 11:04 AM CELL TESTER documented as of this encounter Care Teams Knowledge Manager Relationship Specialty Start Date End Date Sami Liriano DO [address] [place] [id number] PCP - General FAMILY PRACTICE 12/24/19 documented as of this encounter
--- OUTSIDE RECORDS SUMMARY | 2024-09-19 12:25 | XMS_ITS | Encounter Summary ---
Author Organization [facility] Address [facility]. 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 [address] [place] [address] Phone: tel: fax: Referral ID Status Reason Start Date Expiration Date Visits Re quested Visits Authorized [id number] Closed 09/05/2020 10/06/2021 99 99 NESS CONTINUITY DIRECTOR Reason for Visit * Reason Comments Hypertension follow up Encounter Details Date Type Department Care Team (Late st Contact Info) Description 09/05/2020 1:20 PM BUSINESS CONTINUITY DIRECTOR Office Visit [facility] Medical Group Family & Internal Medicine - [place] [address] [place] [address] Sami Liriano DO [address] [place] [address] Hypertension (follow up ) Social History Tobacco Use [...] file Legal Sex Female 12:43 PM BUSINESS CONTINUITY DIRECTOR Gender Identity Female 12/18/2021 6:31 AM [...] have Coronavirus / COVID-19? No / Unsure 09/05/2020 12:43 PM BUSINESS CONTINUITY DIRECTOR documented as of this encounter Last Filed Vital Signs Vital Sign Reading Time Taken Comments Blood Pressure 148/80 09/05/2020 1:09 PM BUSINESS CONTINUITY DIRECTOR Pulse 59 09/05/2020 1:09 PM BUSINESS CONTINUITY DIRECTOR Temperature 36.6 ??C (97.8 ??F) 09/05/2020 1:09 PM CS T Respiratory Rate 16 09/05/2020 1:09 PM BUSINESS CONTINUITY DIRECTOR Oxygen Saturation 96% 09/05/2020 1:09 PM BUSINESS CONTINUITY DIRECTOR Inhaled Oxygen Concentration - - Weight 112.4 kg (247 lb 14.4 oz) 09/05/2020 1:09 PM BUSINESS CONTINUITY DIRECTOR Height 152.4 cm (5') 09/05/2020 1:09 PM BUSINESS CONTINUITY DIRECTOR Body Mass Index 48.41 09/05/2020 1:09 PM BUSINESS CONTINUITY DIRECTOR documented in this encounter Progress Notes * Sami Liriano, - 09/05/2020 1:20 PM CST Images from the original note were not included. GENERAL OFFICE VISIT Encounter Date: 09/05/2020 Chief Complaint: 65-year-old female presents for Hypertension (follow up ) HPI: Patient presents for follow-up on essential hypertension. Patient has had hypertension for many years. Current medications include Metoprolol and HCTZ. Pt has lisinopril listed previously, but she isnot sure she has it today. Patient does take his/her blood pressure at home. Range is around 160/60-80. No side effects noted from medications. Patient present for major depressive disorder. Pt was first diagnosed with this multiple years ago.Concurrent psychiatric conditions include none. Pt is currently taking escitalopram. Pt does see counseling. Pt's symptoms are well controlled. Patient would like to continue current medications as prescribed. . Pt's urination is well controlled at this time. No current issues. Pt notes continued left knee arthritis. Pt is apparently taking doses in excess of 6 grams of tylenol some days. She was on naltrexone and tramadol in the past. She was told she is non-operable because she is overweight. Review of Systems Constitutional: Negative for fever. Respiratory: Negative for shortness of breath. Gastrointestinal: Negative for abdominal pain. See HPI Musculoskeletal: See HPI Psychiatric/Behavioral: See HPI Patient Active Problem List [...] by Joel Keenan MD at [facility] OR ??? EGD ??? HERNIA REPAIR [...] file Occupational History ??? 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 Financial resource strain: Not on file ??? Food insecurity Worry: Not on file Inability: Not on file ??? Transportation needs Medical: Not on file Non-medical: Not on file Tobacco Use ??? Smoking status: Former Smoker Packs/day: 1.00 Years: 12.00 Pack years: 12.00 Types: Cigarettes Quit date: 1976 Years since quittin.9 ??? Smokeless tobacco: Never Used Substance and [...] file Gets together: Not on file Attends anglican service: Not on file Active member of [...] file Immunization History Administered Date(s) Administered ??? Pneumococcal (Prevnar 13) 09/05/2020 Current Outpatient Medications Medication Sig Dispense Refill ??? acetaminophen 325 MG tablet Take 325 mg by mouth. Take 2 in the am and 2 tabs in the pm and 1 PRN ??? escitalopram 20 MG tablet Take 20 mg by mouth daily. ??? furosemide 20 MG tablet Take 20 mg by mouth daily. ??? lisinopril 20 MG tablet Take 1 tablet (20 mg total) by mouth daily. 90 tablet 3 ??? omeprazole 20 MG capsule TAKE 1 CAPSULE BY MOUTH EVERY DAY BEFORE A MEAL ??? potassium chloride CR 10 MEQ tablet Take one tablet by mouth once daily 90 tablet 1 ??? tolterodine LA 4 MG 24 hr capsule Take 4 mg by mouth daily. ??? traMADol 50 MG tablet Take 1 tablet (50 mg total) by mouth every 6 (six) hours as needed for Pain. Indications: Chronic Pain 60 tablet 0 ??? zoster vaccine (SHINGRIX) injection Inject 0.5 mLs into the muscle once for 1 dose. 1 each 0 No current facility-administered medications for this visit. Current Outpatient Medications on File Prior to Visit Medication Sig ??? acetaminophen 325 MG tablet Take 325 mg by mouth. Take 2 in the am and 2 tabs in the pm and 1 PRN ??? escitalopram 20 MG tablet Take 20 mg by mouth daily. ??? furosemide 20 MG tablet Take 20 mg by mouth daily. ??? omeprazole 20 MG capsule TAKE 1 CAPSULE BY MOUTH EVERY DAY BEFORE A MEAL ??? potassium chloride CR 10 MEQ tablet Take one tablet by mouth once daily ??? tolterodine LA 4 MG 24 hr capsule Take 4 mg by mouth daily. No current facility-administered medications on file prior to visit. Allergies Allergen Reactions ??? Penicillins Rash ??? Sulfa Antibiotics Rash Objective: Filed Vitals: 09/05/20 1309 BP: 148/80 Pulse: 59 Resp: 16 Temp: 97.8 ??F (36.6 ??C) TempSrc: Skin SpO2: 96% Weight: 112.4 kg (247 lb 14.4 oz) Height: 5' (1.524 m) [...] Abdominal: Soft. There is no abdominal tenderness. Skin: Skin is warm and dry. No rash noted. Nursing note and vitals reviewed. Assessment & Plan: Jolly was seen today for hypertension. Diagnoses and all orders for this visit: Arthritis of left knee - traMADol 50 MG tablet; Take 1 tablet (50 mg total) by mouth every 6 (six) hours as needed for Pain. Indications: Chronic Pain Essential hypertension - LIPID PANEL; Future - COMPREHENSIVE METABOLIC PANEL; Future - lisinopril 20 MG tablet; Take 1 tablet (20 mg total) by mouth daily. Current mild episode of major depressive disorder without prior episode (CMS/HCC) Postmenopausal - BONE DENSITY/DEXA; Future Need for shingles vaccine - zoster vaccine (SHINGRIX) injection; Inject 0.5 mLs into the muscle once for 1 dose. BMI 45.0-49.9, adult (CMS/HCC) - TSH W/REFLEX; Future - VITAMIN D 1,25 DIHYDROXY; Future Encounter for screening mammogram for breast cancer - MG SCREENING W SHIN HAN DIGI Need for prophylactic vaccination against Streptococcus pneumoniae (pneumococcus) - [26761] Prevnar 13 (Pneumococcal) Overactive bladder Discussion/Summary: Will give immunizations and order preventative testing as per above. Will also order labs as per above. Will restart her tramadol as many options are limited; warned of side effect profile and potentially addictive quality of medication. Pt v/u to this. Will increase lisinopril to 20 mg daily givenher elevated numbers. Will need UDS and CSA if we continued tramadol. Will have pt f/u in 1-2 months for reassessment for knee pain and blood pressure meds. Sami Liriano DO NESS CONTINUITY DIRECTOR documented in this encounter Plan of Treatment Upcoming Encounters Date Type Department Care Team (Late st Contact Info) Description 10/09/2024 9:30 AM BUSINESS CONTINUITY DIRECTOR Office Visit [facility] [phone] Carlos Farris MD [address] [facility] [address] [facility] [place] [address] 11/02/2024 10:20 AM BUSINESS CONTINUITY DIRECTOR Office Visit [facility] Medical Group Family & Internal Medicine - [address] [phone] Sami Liriano DO [address] [place] [phone] (work) Scheduled Orders Name Type Priority Associated Diagnoses Orde r Schedule MG SCREENING W SHIN HAN DIGI MAMMO Routine Encounter for screening mammogram for breast cancer Ordered: 09/05/2020 documented as of this encounter Results * (ABNORMAL) COMPREHENSIVE METABOLIC PANEL (09/05/2020 2:00 PM BUSINESS CONTINUITY DIRECTOR) GLUCOSE 102(H) 70 - 99 MG/DL 09/05/2020 7:26 PM [facility] BUN 18 7 - 18 MG/DL 09/05/2020 7:26 PM [facility] CREATININE S/P/B 1.02 0.55 - 1.02 MG/DL 09/05/2020 7:26 PM [facility] SODIUM S/P/B 139 136 - 145 MMOL/L 09/05/2020 7:26 PM [facility] POTASSIUM S/P/B 3.9 3.5 - 5.1 MMOL/L 09/05/2020 7:26 PM [facility] CHLORIDE S/P/B 105 100 - 108 MMOL/L 09/05/2020 7:26 PM [facility] CO2 27.2 21 - 32 MMOL/L 09/05/2020 7:26 PM [facility] CALCIUM S/P/B 9.4 8.5 - 10.1 MG/DL 09/05/2020 7:26 PM [facility] BILIRUBIN TOTAL S/P/B 1.2 0.2 - 1.2 MG/DL 09/05/2020 7:26 PM [facility] Comment: THIS ASSAY IS NOT RECOMMENDED FOR PATIENTS UNDERGOING TREATMENT WITH ELTROMBOPAG DUE TO THE POTENTIAL FOR FALSELY ELEVATED RESULTS. TOTAL PROTEIN S/P/B 7.9 6.4 - 8.2 G/DL 09/05/2020 7:26 PM [facility] ALBUMIN S/P/B 4.2 3.4 - 5.0 G/DL 09/05/2020 7:26 PM [facility] AST 15 15 - 37 U/L 09/05/2020 7:26 PM [facility] ALT 26 14 - 55 U/L 09/05/2020 7:26 PM [facility] ALKALINE PHOSPHATASE S/P/B 110 50 - 136 U/L 09/05/2020 7:26 PM [facility] ANION GAP 6.8 5 - 15 MMOL/L 09/05/2020 7:26 PM [facility] BUN CREATININE RATIO 17.6 6 - 26 09/05/2020 7:26 PM [facility] A/G RATIO 1.1 1.0 - 2.0 RATIO 09/05/2020 7:26 PM [facility] EGFR NON-AFR. AMER. 57(L) >90 ML/MIN/1.7 3 M2 09/05/2020 7:26 PM [facility] EGFR AFR. AMER. 66(L) >90 ML/MIN/1.7 3 M2 09/05/2020 7:26 PM [facility] Comment: NOTE: eGFR is not calculated for patients <18 years of age. This is an estimated GFR (CKD EPI) and should not be used for calculating drug doses. 09/05/2020 2:00 PM BUSINESS CONTINUITY DIRECTOR us Sami Liriano DO LABORATORY Final Re sult [facility] [address] [place] [address], * (ABNORMAL) VITAMIN D 1,25 DIHYDROXY (09/05/2020 2:00 PM BUSINESS CONTINUITY DIRECTOR) VITAMIN D 1 25 DIHYDROXY S/P/B 15(L) 18 - 72 pg/mL 09/09/2020 10:37 PM BUSINESS CONTINUITY DIRECTOR Written [facility] VITAMIN D3 1 25 DIHYDROXY S/P/B 15 pg/mL 09/09/2020 10:37 PM BUSINESS CONTINUITY DIRECTOR Written [facility] VITAMIN D2 1 25 DIHYDROXY S/P/B <8 pg/mL 09/09/2020 10:37 PM BUSINESS CONTINUITY DIRECTOR [facility] Comment: Vitamin D3, 1,25(OH)2 indicates both endogenous production and supplementation. Vitamin D2, 1,25(OH)2 is an indicator of exogenous sources, such as diet or supplementation. ??Interpretation and therapy are based on measurement of Vitamin D,1,25(OH)2, Total. This test was developed and its analytical performance characteristics have been determined by [place] It has not been cleared or approved by the FDA. This assay has been validated pursuant to the CLIA regulations and is used for clinical purposes. Test Performed by [facility], [facility], [address] [place] [address] Grzegorz Gomez M.D., Ph.D., Director of Laboratories , CLIA [id number] 09/05/2020 2:00 PM BUSINESS CONTINUITY DIRECTOR Sami Liriano DO LABORATORY Final Re sult [facility] [place] [id number] [place], [place] , [place] [phone] documented in this encounter Visit Diagnoses Diagnosis Arthritis of left knee- Primary Unspecified arthropathy, lower leg Essential hypertension Unspecified essential hypertension Current mild episode of major depressive disorder without prior episode ([facility]) Postmenopausal Asymptomatic postmenopausal status (age-related) (natural) Need for shingles vaccine Need for prophylactic vaccination and inoculation against other viral diseases BMI 45.0-49.9, adult ([facility]) Body Mass Index 45.0-49.9, adult Encounter for screening mammogram for breast cancer Need for prophylactic vaccination against Streptococcus pneumoniae (pneumococcus) Need for prophylactic vaccination against streptococcus pneumoniae (pneumococcus) Overactive bladder Hypertonicity of bladder documented in this encounter Additional Health Concerns Assessment Noted Time PHQ-9 Depression Total Score: 0 10/29/19 11:04 AM BUSINESS CONTINUITY DIRECTOR documented as of this encounter Care Teams Roller Die Cutting Machine Operator Relationship Specialty Start Date End Date Sami Liriano DO [address] [place] [id number] PCP - General FAMILY PRACTICE 12/24/19 documented as of this encounter
--- OUTSIDE RECORDS SUMMARY | 2024-09-19 12:25 | XMS_ITS | Encounter Summary ---
Author Organization [facility] Address [facility] [place], [place] [address] [place] [address] Care Team Providers Care Interpersonal Communications Professor Name Role Phone Sami Liriano Primary Care Provider + Reason for Visit * Auth/Cert Specialty Diagnoses / Procedures Referred By Shereen benton Referred To Contact Diagnoses Pharyngoesophageal dysphagia Positive colorectal cancer screening using Cologuard test dysphagia, positive cologuard Procedures COLONOSCOPY DIAGNOSTIC WITH/WITHOUT SPECIMEN BRUSH/WASH EGD DX WITH BRUSH/WASH Referral ID Status Reason Start Date Expiration Date Visits Re quested Visits Authorized [id number] 1 1 Encounter Details Date Type Department Care Team (Late st Contact Info) Description 04/27/2020 10:50 AM CDT Anesthesia Event [facility] [address] [place] [address] Eliecer Mcginnis CRNA [address] [place] [address] Andra Best CRNA [address] [place] [address] Anesthesia Record Procedure Summary Procedure Name Responsible Anesthesiologist Anesthesia Start Time Anesthesia Stop Time COLONOSCOPY WITH BIOPSY X 3 Eliecer Mcginnis CRNA 04/27/20 1050 04/27/20 1131 Events Date Time Event Comment 04/27/2020 0932 0932 AN 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 1050 An Start Data 1050 Nasal Cannula Applied 1052 Anesthesia Ready 1131 Nasal Cannula Removed 1131 an stop data 1131 An Stop Meds Name Total lidocaine (PF) (XYLOCAINE) 1% injection 50 mg propofol (DIPRIVAN) 200 mg/20 mL injecti on 520 mg lidocaine (XYLOCAINE) viscous 2% solutio n 15 mL lactated ringers infusion 0 mL * Agents Name O2 N2O * Blood No blood administrations on file. 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 No / Unsure 04/27/2020 8:23 AM CDT documented as of this encounter OR Notes * Anesthesia Postprocedure Evaluation - Eliecer Mcginnis CRNA - 04/27/2020 11:31 AM CDT Anesthesia Post-op Note Jolly Sargent Procedure(s): COLONOSCOPY (Left ) EGD DX WITH DILATATION (N/A ) Anesthesia type: MAC Vitals: 04/27/20 0849 BP: (!) 177/70 Vitals: 04/27/20 0849 Pulse: 71 Vitals: 04/27/20 0849 Resp: 20 Vitals: 04/27/20 0849 Temp: 37.2 ??C Vitals: 04/27/20 0849 SpO2: 96% Patient Location: Phase II/Outpatient Level of Consciousness: awake, alert and oriented Pain Management: adequate analgesia Airway Patency: patent Respiratory Status: acceptable Cardiovascular Status: acceptable Post-Op Nausea: none Postoperative Hydration: euvolemic Complications: no anesthesia complication * Anesthesia Preprocedure Evaluation - Eliecer Mcginnis CRNA - 04/22/2020 8:11 AM CDT Anesthesia ROS/MED History Reviewed: Patient summary , Nursing notes , Family history anesthesia, Anesthesia history , Medications Pre-Anesthetic State: alert, awake and responds appropriately Pulmonary neg pulmonary ROS Cardiovascular (+) hypertension Neuro/Psych (+) depression GI/Hepatic/Renal (+) GERD Endo/Other (+) obese Physical Evaluation Airway Mallampati: II TM Distance: >3 FB Neck ROM: normal Dental No notable dental history Pulmonary Pulmonary exam normal Cardiovascular Rhythm: regular Rate: normal Cardiovascular exam normal Anesthesia Plan ASA 3 Intravenous Induction Anesthesia type: MAC Informed Consent Anesthetic plan and risks discussed with patient of whom consent was obtained. Use of blood products discussed with patient of whom consent was obtained. . Cosigned by Joel Keenan MD at 05/04/2020 9:59 AM CDT Associated attestation - Joel Keenan MD - 05/04/2020 9:59 AM CDT I am certifying my agreement with the anesthesia plan of care and will be supervising the administration of anesthesia. documented in this encounter Plan of Treatment Upcoming Encounters Date Type Department Care Team (Late st Contact Info) Description 10/09/2024 9:30 AM CAR REPOSSESSOR Office Visit [facility] [phone] Carlos Farris MD [address] [facility] [address] [address] [place] [address] 11/02/2024 10:20 AM CAR REPOSSESSOR Office Visit [facility] Medical Group Family & Internal Medicine - [address] [phone] Sami Liriano DO [address] [place] [phone] documented as of this encounter Visit Diagnoses Not on filedocumented in this encounter Administered Medications Inactive Administered Medications - up to 3 most recent administrations Medication Order MAR Action Action Date Dose Rate Site lidocaine (PF) (XYLOCAINE) 1 % injection Intravenous, PRN, Starting on Sat04/27/20 at 1053, Until Sat04/27/20 at 1131, Anesthesia Intra-Op Given 04/27/2020 10:53 AM CDT 50 mg lidocaine viscous (XYLOCAINE) 2 % solution PRN, Starting on Sat04/27/20 at 1029, Until Sat04/27/20 at 1131, Anesthesia Intra-Op Given 04/27/2020 10:29 AM CDT 15 mLs propofol (DIPRIVAN) IV bolus Intravenous, PRN, Starting on Sat04/27/20 at 1055, Until Sat04/27/20 at 1131, Anesthesia Intra-Op Given 04/27/2020 11:24 AM CDT 30 mg Given 04/27/2020 11:23 AM CDT 20 mg Given 04/27/2020 11:20 AM CDT 70 mg documented in this encounter Additional Health Concerns Assessment Noted Time PHQ-9 Depression Total Score: 0 10/29/19 20 11:04 AM CAR REPOSSESSOR documented as of this encounter Care Teams Interpersonal Communications Professor Relationship Specialty Start Date End Date Sami Liriano DO NPI: [id number] [place] [id number] PCP - General FAMILY PRACTICE 12/24/19 documented as of this encounter
--- OUTSIDE RECORDS SUMMARY | 2024-09-19 12:25 | XMS_ITS | Encounter Summary ---
Author Organization [facility] Address [facility]. [place], [place] [address] [place] [address] Care Team Providers Care Electronics Engineering Technologist Name Role Phone Sami Liriano DO Primary Care Provider + Encounter Details Date Type Department Care Team (Latest Contact Info) Description 09/05/2020 6:15 PM CADMIUM PLATER - 09/05/2020 11:59 PM CADMIUM PLATER Hospital Encounter [facility] [place] [address] Sami Liriano DO [address] [place] [address] [phone] Discharge Disposition: Home or Self Care (Routine [...] on file Legal Sex Female 12:43 PM CADMIUM PLATER Gender Identity Female 12/18/2021 6:31 AM CDT [...] COVID-19? No / Unsure 09/05/2020 12:43 PM CADMIUM PLATER documented as of this encounter Medications at Time of Discharge acetaminophen 325 MG tablet Take 2 tablets (650 mg total) by mouth every 6 (six) hours as needed for Pain. escitalopram 20 MG tablet Take 20 mg by mouth daily. 05/29/2020 1 furosemide 20 MG tablet Take 20 mg by mouth daily. 0 lisinopril 20 MG tabletIndications: Essential hypertension Take 1 tablet (20 mg total) by mouth daily. 90 tablet 3 09/05/2020 1 omeprazole 20 MG capsule TAKE 1 CAPSULE [...] Progress Notes * Sami Liriano DO - 09/05/2020 6:15 PM CST A1c is mildly elevated at 5.8; need to watch diet/exercise. Vitamin D is low; recommend 2000 IU daily. Cholesterol is elevated; recommend statin medication unless she has not been started on this previously for a specific reason or she did not tolerate it. Recommend atorvastatin 10 mg daily. Other labs are essentially unchanged. Pt needs to f/u in 1-2 months from last OV. IUM PLATER documented in this encounter Plan of Treatment Upcoming Encounters Date Type Department Care Team (Late st Contact Info) Description 10/09/2024 9:30 AM CADMIUM PLATER Office Visit [facility] [phone] Carlos Farris MD [address] [facility] [address] [place] [address] 11/02/2024 10:20 AM CADMIUM PLATER Office Visit [facility] Medical Group Family & Internal Medicine - [address] [phone] Sami Liriano DO [address] [place] [address] documented as of this encounter Procedures Procedure Name Priority Date/Time Associated Diagnosis Comments TSH W/REFLEX Routine 09/05/2020 2:00 PM CADMIUM PLATER Screening for endocrine, metabolic and immunity disorder Annual physical exam COMPREHENSIVE METABOLIC PANEL Routine 09/05/2020 2:00 PM CADMIUM PLATER Essential hypertension LIPID PANEL Routine 09/05/2020 2:00 PM CADMIUM PLATER Screening for lipid disorders Annual physical exam VITAMIN D 1,25 DIHYDROXY Routine 09/05/2020 2:00 PM CADMIUM PLATER BMI 45.0-49.9, adult ([facility]) documented in this encounter Results * (ABNORMAL) COMPREHENSIVE METABOLIC PANEL (09/05/2020 2:00 PM CADMIUM PLATER) GLUCOSE 102(H) 70 - 99 MG/DL 09/05/2020 7:[address] [facility] BUN 18 7 - 18 MG/DL 09/05/2020 7:[address] [facility] CREATININE S/P/B 1.02 0.55 - 1.02 MG/DL 09/05/2020 7:[address] [facility] SODIUM S/P/B 139 136 - 145 MMOL/L 09/05/2020 7:[address] [facility] POTASSIUM S/P/B 3.9 3.5 - 5.1 MMOL/L 09/05/2020 7:[address] [facility] CHLORIDE S/P/B 105 100 - 108 MMOL/L 09/05/2020 7:[address] [facility] CO2 27.2 21 - 32 MMOL/L 09/05/2020 7:[address] [facility] CALCIUM S/P/B 9.4 8.5 - 10.1 MG/DL 09/05/2020 7:[address] [facility] BILIRUBIN TOTAL S/P/B 1.2 0.2 - 1.2 MG/DL 09/05/2020 7:[address] [facility] Comment: THIS ASSAY IS NOT RECOMMENDED FOR PATIENTS UNDERGOING TREATMENT WITH ELTROMBOPAG DUE TO THE POTENTIAL FOR FALSELY ELEVATED RESULTS. TOTAL PROTEIN S/P/B 7.9 6.4 - 8.2 G/DL 09/05/2020 7:[address] [facility] ALBUMIN S/P/B 4.2 3.4 - 5.0 G/DL 09/05/2020 7:[address] [facility] AST 15 15 - 37 U/L 09/05/2020 7:[address] [facility] ALT 26 14 - 55 U/L 09/05/2020 7:[address] [facility] ALKALINE PHOSPHATASE S/P/B 110 50 - 136 U/L 09/05/2020 7:[address] [facility] ANION GAP 6.8 5 - 15 MMOL/L 09/05/2020 7:[address] [facility] BUN CREATININE RATIO 17.6 6 - 26 09/05/2020 7:[address] [facility] A/G RATIO 1.1 1.0 - 2.0 RATIO 09/05/2020 7:[address] [facility] EGFR NON-AFR. AMER. 57(L) >90 ML/MIN/1.7 3 M2 09/05/2020 7:[address] [facility] EGFR AFR. AMER. 66(L) >90 ML/MIN/1.7 3 M2 09/05/2020 7:[address] [facility] Comment: NOTE: eGFR is not calculated for patients <18 years of age. This is an estimated GFR (CKD EPI) and should not be used for calculating drug doses. 09/05/2020 2:00 PM CADMIUM PLATER Sami Liriano DO LABORATORY Final Re sult [facility] [address] [place] [address], * (ABNORMAL) VITAMIN D 1,25 DIHYDROXY (09/05/2020 2:00 PM CADMIUM PLATER) VITAMIN D 1 25 DIHYDROXY S/P/B 15(L) 18 - 72 pg/mL 09/09/2020 10:37 PM CADMIUM PLATER [employer] [facility] VITAMIN D3 1 25 DIHYDROXY S/P/B 15 pg/mL 09/09/2020 10:37 PM CADMIUM PLATER [facility] VITAMIN D2 1 25 DIHYDROXY S/P/B <8 pg/mL 09/09/2020 10:37 PM CADMIUM PLATER [employer] [facility] Comment: Vitamin D3, 1,25(OH)2 indicates both endogenous production and supplementation. Vitamin D2, 1,25(OH)2 is an indicator of exogenous sources, such as diet or supplementation. ??Interpretation and therapy are based on measurement of Vitamin D,1,25(OH)2, Total. This test was developed and its analytical performance characteristics have been determined by [employer], [place], [place]. It has not been cleared or approved by the FDA. This assay has been validated pursuant to the CLIA regulations and is used for clinical purposes. Test Performed by [facility], [employer] [facility], [address] [place], [place] Grzegorz Gomez M.D., Ph.D., Director of Laboratories , CLIA [id number] 09/05/2020 2:00 PM CADMIUM PLATER Sami Liriano DO LABORATORY Final Re sult [employer] [facility] [address] [place], [place] , * (ABNORMAL) LIPID PANEL (09/05/2020 2:00 PM CADMIUM PLATER) CHOLESTEROL 227(H) <200 MG/DL 09/05/2020 7:[address] [facility] TRIGLYCERIDES 150(H) <150 MG/DL 09/05/2020 7:[address] [facility] HDL 47 >40.0 MG/DL 09/05/2020 7:[address] [facility] LDL (CALCULATED) 150(H) <100 MG/DL 09/05/2020 7:[address] [facility] NON HDL CHOLESTEROL 180(H) <130 MG/DL 09/05/2020 7:[address] [facility] CHOL/HDL RATIO 4.8(H) 0.0 - 4.5 09/05/2020 7:[address] [facility] VLDL CALCULATION 30 5 - 55 MG/DL 09/05/2020 7:[address] [facility] LIPID INTERPRETATION 09/05/2020 7:[address] [facility] Comment: NIH CONCENSUS REPORT RECOMMENDATIONS: ?ADULT ?CHILD ??LOW RISK: ?CHOLESTEROL ? <200 ? <170 ?TRIGLYCERIDE ?<150 ?--- ?HDL ? >=60 ?--- ?LDL ? <100 ? <110 ??BORDERLINE: ?CHOLESTEROL ? 200-239 ?? 170-199 ?TRIGLYCERIDE ?150-199 ? --- ?HDL ?40-59 ?--- ?LDL ? 100-159 ?? 110-129 ??HIGH RISK: ?CHOLESTEROL ? >=240 ?>=200 ?TRIGLYCERIDE ?>=200 ? --- ?HDL ?<40 ?--- ?LDL ? >=160 ?>=130 09/05/2020 2:00 PM CADMIUM PLATER us Sami Liriano DO LABORATORY Final Re sult Performing Organization Address [facility]/State/ZIP Co de Phone Number [facility] [address] [place] [address], * TSH W/REFLEX (09/05/2020 2:00 PM CADMIUM PLATER) TSH 2.220 0.358 - 3.74 uIU/ML 09/05/2020 7:26 PM CADMIUM PLATER [facility] Comment: HIGH DOSES OF BIOTIN MAY INTERFERE WITH THIS TEST RESULT. CORRELATION TO CLINICAL HISTORY AND PRESENTATION RECOMMENDED. FREE T4 NOT INDICATED 09/05/2020 2:00 PM CADMIUM PLATER Sami Liriano DO LABORATORY Final Re sult [facility] [address] [place] [address], documented in this encounter Visit Diagnoses Diagnosis Screening for endocrine, metabolic and immunity disorder Annual physical exam Routine general medical examination at a health care facility Screening for lipid disorders BMI 45.0-49.9, adult (CMS/HCC HHS/HCC) Body Mass Index 45.0-49.9, adult Essential hypertension Unspecified essential hypertension documented in this encounter Additional Health Concerns Assessment Noted Time PHQ-9 Depression Total Score: 0 10/29/19 20 11:04 AM CADMIUM PLATER documented as of this encounter Care Teams Electronics Engineering Technologist Relationship Specialty Start Date End Date Sami Liriano DO [address] [place] [address] PCP - General FAMILY PRACTICE 12/24/19 documented as of this encounter
--- OUTSIDE RECORDS SUMMARY | 2024-09-19 12:25 | XMS_ITS | Encounter Summary ---
Author Organization [facility] Address [facility]. [place], [place] [address] [place] [address] Care Team Providers Care Satellite Project Site Monitor Name Role Phone Sami Liriano Primary Care Provider + Reason for Visit * Reason Onset Date Comments Question 04/29/2020 Encounter Details Date Type Department Care Team (Late st Contact Info) Description 04/29/2020 Telephone [facility] Multispecialty Care - [facility] [address] [facility] [place] [phone] Joel Keenan MD [address] [facility] [address] [place] [address] Question Social History Tobacco Use Types Packs/Day [...] on file Legal Sex Female 12:43 PM AIR COMMODORE Gender Identity Female 12/18/2021 6:31 AM CDT Sexual Orientation Straight 01/15/2022 6: 11 AM CDT COVID-19 Exposure Response Date Recorded In the last month, have you been in contact with someone who was confirmed or suspected to have Coronavirus / COVID-19? No / Unsure 04/27/2020 8:23 AM CDT documented as of this encounter Progress Notes * Jenn Stevenson NP - 04/29/2020 5:14 PM CDTAddended by: JENN STEVENSON on: 04/29/2020 05:14 PM Modules accepted: Orders * Jenn Stevenson NP - 04/29/2020 4:14 PM CDT Pt notes it is intermittent and worse with activity but is better than yesterday. No fevers, nauseaor firmness. I did discuss this with Dr. Keenan and would like pt to take 7 days of Cipro and Flagyl if symptoms worsen pt was instructed to go to ER over week end if needed. * Christa Gabriel - 04/29/2020 11:49 AM CDT Patient is still having pain from her colonoscopy that was done on 04/27/20 in [place].She is experiencing sharp stabbing pains on her right side below her waist. No fever. Call patient with treatment plan. Patient call back number [phone]. documented in this encounter Plan of Treatment Upcoming Encounters Date Type Department Care Team (Late st Contact Info) Description 10/09/2024 9:30 AM AIR COMMODORE Office Visit [facility]-[address] [phone] Carlos Farris MD [facility] [address] [place] [address] 11/02/2024 10:20 AM AIR COMMODORE Office Visit [facility] Medical Group Family & Internal Medicine - [address] [phone] Sami Liriano DO [address] [place] [address] documented as of this encounter Visit Diagnoses Diagnosis RLQ abdominal pain- Primary Abdominal pain, right lower quadrant documented in this encounter Additional Health Concerns Assessment Noted Time PHQ-9 Depression Total Score: 0 10/29/19 20 11:04 AM AIR COMMODORE documented as of this encounter Care Teams Satellite Project Site Monitor Relationship Specialty Start Date End Date Sami Liriano DO [address] [place] [address] PCP - General FAMILY PRACTICE 12/24/19 documented as of this encounter
--- OUTSIDE RECORDS SUMMARY | 2024-09-19 12:25 | XMS_ITS | Encounter Summary ---
Author Organization [facility] Address [facility]. [place], [place] [address] [place] [address] Care Team Providers Care Site Reliability Engineer Name Role Phone Sami Liriano Primary Care Provider + Reason for Visit * Auth/Cert Specialty Diagnoses / Procedures Referred By Shereen benton Referred To Contact Diagnoses Pharyngoesophageal dysphagia Positive colorectal cancer screening using Cologuard test dysphagia, positive cologuard Procedures COLONOSCOPY DIAGNOSTIC WITH/WITHOUT SPECIMEN BRUSH/WASH EGD DX WITH BRUSH/WASH Referral ID Status Reason Start Date Expiration Date Visits Re quested Visits Authorized [id number] 1 1 Encounter Details Date Type Department Care Team (Late st Contact Info) Description 04/27/2020 9:49 AM CDT - 04/27/2020 10:42 AM CDT Surgery [facility] [address] [place] [address] Puma Keenan MD [address] [place] [address] COLONOSCOPY WITH BIOPSY X 3 Surgery Details Date/Time Status Location OR Service Patient Class Case Class Case Type Trauma Case? 04/27/2020 9:49 AM Posted [facility] OR Endo Gastroenterology Short Stay/Outpa tient Surgery No Panel 1 Procedure LRB Anes Op Region Wound Class Comments COLONOSCOPY WITH BIOPSY X 3 N/A Monitor Anesthesia Care Clean Contaminated EGD DX WITH DILATATION N/A Monitor A nesthesia Care Clean Contaminated Surgeon Surgeon Role Service Panel Puma Keenan MD Primary Gastroenterology 1 Special Needs 0900 documented in this encounter Social History Tobacco [...] on file Legal Sex Female 12:43 PM HANGAR ATTENDANT Gender Identity Female 12/18/2021 6:31 AM CDT [...] Sign Reading Time Taken Comments Blood Pressure 177/70 04/27/2020 8:49 AM CDT Pulse 71 04/27/2020 8:49 AM CDT Temperature 37.2 ??C (98.9 ??F) 04/27/2020 8:49 AM CD T Respiratory Rate 20 04/27/2020 8:49 AM CDT Oxygen Saturation 96% 04/27/2020 8:49 AM CDT Inhaled Oxygen Concentration - - [...] Everywhere. * Upper GI Endoscopy Discharge Instructions ([place]ierra Leonean) * Colonoscopy Discharge Instructions ([place]) * Soft Diet ([place]an) documented in this encounter Medications at Time [...] during recuperation were discussed with the patient/family/personal merchandising representative. Reasonable alternatives to the patient's proposed procedure/surgery including benefits, risks, and side effects related to the alternatives and the risks related to not receiving the proposed care were also discussed with the patient/family/personal merchandising representative. Questions were answered and the patient/family/personal merchandising representative verbalized understanding and desires to proceed. [...] were seen. Bougie dilation Morrison size 54 [place] used. 11/26/2019+ Cologuard Diagnoses/Impression: Positive colorectal cancer [...] ring with a dilation with a 54 [place] Morrison on 04/17/2019 which did improve her [...] Plan: ?? Schedule EGD and Colonoscopy at [facility] ?? Suprep split prep ?? It [...] Keenan MD - 04/27/2020 11:31 AM CDT HS OpNote COLONOSCOPY WITH BIOPSY X 3 , EGD DX WITH DILATATION Procedure Note Jolly Romeo Arie 04/27/2020 0949 Procedure(s) (LRB): COLONOSCOPY WITH BIOPSY X 3 (N/A) EGD DX WITH DILATATION (N/A) Surgeon(s): Puma Keenan MD Staff: Circulating Nurse 1: Denisha Solano RN Anesthesia: Monitor Anesthesia Care ELEVATOR REPAIRER HELPER: Eliecer Mcginnis CRNA Pre-Op Diagnosis: dysphagia, positive [...] by one-to-one approximation of. Afterward a 54 [place]er savory dilator was threaded over the wire [...] given symptoms patient was dilated to 54 [place] Savary dilator. Multiple colon polyps removed. Cecal [...] st Contact Info) Description 10/09/2024 9:30 AM HANGAR ATTENDANT Office Visit [facility]-[address] [phone] [facility] [address] [facility] [place] [address] 11/02/2024 10:20 AM HANGAR ATTENDANT Office Visit [facility] Medical Group Family & Internal Medicine [address] [phone] Sami Liriano, [address] [place] [address] documented as of this encounter Procedures Procedure [...] / Unknown 04/27/2020 11:29 AM CDT Narrative [facility] - 04/28/2020 1:27 PM CDT [id number] Date of Service: ??04/27/2020 Preoperative Diagnosis: ??Dysphagia, [...] submitted entirely in block C. CPT Code: ??16879 x3 D: ??04/27/2020 02:52 PM #[id number] T: ??04/27/2020 03:05 PM /NTS A copy of this report has been sent to: [facility] [id number] MICROSCOPIC DIAGNOSIS: I. ??Rectal polyp: - Benign [...] The polyp shows coagulation artifact. ?? Site: ??[facility] ([facility]) D: ??04/28/2020 11:35 AM #[id number] T: ??04/28/2020 12:03 PM /NTS us Puma Keenan MD PATHOLOGY/CYTOLOGY ORDERABLES Fi nal Result [facility] [address] [place] [address], documented in this encounter Visit Diagnoses Diagnosis Pharyngoesophageal dysphagia Dysphagia, pharyngoesophageal phase Positive colorectal cancer screening using Cologuard test Pharyngoesophageal dysphagia Dysphagia, pharyngoesophageal phase Positive colorectal [...] Total Score: 0 10/29/19 20 11:04 AM HANGAR ATTENDANT documented as of this encounter Care Teams Site Reliability Engineer Relationship Specialty Start Date End Date Sami Liriano DO [address] [place] [phone] PCP - General FAMILY PRACTICE 12/24/19 documented as of this encounter
--- OUTSIDE RECORDS SUMMARY | 2024-09-19 12:25 | XMS_ITS | Encounter Summary ---
Author Organization [facility] Address [facility]. [place], [place] [address] [place] [address] Care Team Providers Care Production Sampler Name Role Phone Sami Liriano DO Primary Care Provider + Encounter Details Date Type Department Care Team (Latest Contact Info) Description 09/05/2020 8:59 AM SCHOOL NURSE - 09/05/2020 6:14 PM SCHOOL NURSE Hospital Encounter [facility] [place] [address] Sami Liriano DO [address] [place] [address] [phone] Discharge Disposition: Home or Self Care (Routine [...] on file Legal Sex Female 12:43 PM SCHOOL NURSE Gender Identity Female 12/18/2021 6:31 AM CDT Sexual Orientation Straight 01/15/2022 6: 11 AM CDT 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 No / Unsure 09/05/2020 12:43 PM SCHOOL NURSE documented as of this encounter Medications at Time of Discharge acetaminophen 325 MG tablet Take 2 tablets (650 mg total) by mouth every 6 (six) hours as needed for Pain. escitalopram 20 MG tablet Take 20 mg by mouth daily. 05/29/2020 08/08/2021 furosemide 20 MG tablet Take 20 mg by mouth daily. 09/26/2020 omeprazole 20 MG capsule TAKE 1 CAPSULE BY MOUTH EVERY DAY BEFORE A MEAL 08/24/2019 12/15/2020 potassium chloride CR 10 MEQ tabletIndications :Bilateral lower extremity edema Take one tablet by mouth once daily 90 tablet 1 03/11/2020 10/17/2020 tolterodine LA 4 MG 24 hr capsule Take 4 mg by mouth daily. 09/07/2019 01/24/2021 traMADol 50 MG tabletIndications :Chronic Pain Take 1 tablet (50 mg total) by mouth every 6 (six) hours as needed for Pain. Indications: Chronic Pain 60 tablet 09/05/2020 03/01/2021 zoster vaccine (SHINGRIX) injectionIndicati ons:Need for shingles vaccine Inject 0.5 mLs into the muscle once for 1 dose. 1 each 09/05/2020 09/05/2020 documented as of this encounter Plan of Treatment Upcoming Encounters Date Type Department Care Team (Late st Contact Info) Description 10/09/2024 9:30 AM SCHOOL NURSE Office Visit [facility]-[address] [phone] Carlos Farris MD [facility] [address] [facility] [place] [address] 11/02/2024 10:20 AM SCHOOL NURSE Office Visit [facility] Medical [facility] Family & Internal Medicine - [address] [phone] Sami Liriano DO [address] [place] [address] documented as of this encounter Procedures Procedure Name Priority Date/Time Associated Diagnosis Comments HEMOGLOBIN, GLYCOSYLATED Routine 09/05/2020 2:00 PM SCHOOL NURSE Hyperglycemia documented in this encounter Results * (ABNORMAL) HEMOGLOBIN, GLYCOSYLATED (09/05/2020 2:00 PM SCHOOL NURSE) HGB A1C 5.8(H) <5.7 % 09/06/2020 10:25 AM SCHOOL NURSE [facility] Comment: ADA GUIDELINES 2010 5.7 TO 6.4% INCREASED RISK OF DIABETES > OR = 6.5% CONSISTENT WITH DIABETES ESTIMATED AVG GLUCOSE 120 mg/dL 09/06/2020 10:25 AM SCHOOL NURSE [facility] 09/05/2020 2:00 PM SCHOOL NURSE Sami Liriano DO LABORATORY Final Re sult [facility] [address] [place] [address], documented in this encounter Visit Diagnoses Diagnosis Hyperglycemia Other abnormal glucose documented in this encounter Additional Health Concerns Assessment Noted Time PHQ-9 Depression Total Score: 0 10/29/19 20 11:04 AM SCHOOL NURSE documented as of this encounter Care Teams Production Sampler Relationship Specialty Start Date End Date Sami Liriano DO [address] [place] [address] PCP - General FAMILY PRACTICE 12/24/19 documented as of this encounter
--- OUTSIDE RECORDS SUMMARY | 2024-09-19 12:25 | XMS_ITS | Encounter Summary ---
Author Organization [facility] Address [facility]. [place], [place] [address] [place] [address] Care Team Providers Care Social Work Nurse Name Role Phone Sami Liriano DO Primary Care Provider + Reason for Visit * Reason Comments Edema c/o B/L lower leg sw elling Follow Up follow up on colonos copy,endoscopy and echo Abdominal Pain c/o right sided abdo caleb pain s/p colonoscopy Encounter Details Date Type Department Care Team (Late st Contact Info) Description 05/18/2020 8:40 AM CDT Office Visit [facility] Family & Internal Medicine [address] [phone] Sami Liriano DO [facility] [place], [place] [phone] Edema (c/o B/L lower leg swelling); Follow Up (follow up on colonoscopy,endoscopy and echo); Abdominal Pain (c/o right sided abdominal pain s/p colonoscopy) Social History Tobacco Use Types Packs/Day Years [...] on file Legal Sex Female 12:43 PM APPLIANCE SERVICE TECHNICIAN Gender Identity Female 12/18/2021 6:31 AM [...] have Coronavirus / COVID-19? No / Unsure 05/18/2020 8:44 AM CDT documented as of this encounter Last Filed Vital Signs Vital Sign Reading Time Taken Comments Blood Pressure 138/78 05/18/2020 9:49 AM CDT Pulse 64 05/18/2020 9:05 AM CDT Temperature 36.8 ??C (98.2 ??F) 05/18/2020 9:05 AM CD T Respiratory Rate 18 05/18/2020 9:05 AM CDT Oxygen Saturation 97% 05/18/2020 9:05 AM CDT Inhaled Oxygen Concentration - - Weight 114.8 kg (253 lb) 05/18/2020 9:05 AM CDT Height 152.4 cm (5') 05/18/2020 9:05 AM CDT Body Mass Index 49.41 05/18/2020 9:05 AM CDT documented in this encounter Patient Instructions * Patient Instructions* Sami Liriano DO - 05/18/2020 8:40 AM CDT Please check BP daily for one week and call us next week with the readings. documented in this encounter Progress Notes * Sami Liriano DO - 05/18/2020 8:40 AM CDT Images from the original note were not included. GENERAL OFFICE VISIT Encounter Date: 05/18/2020 Chief Complaint: 65-year-old female presents for Edema (c/o B/L lower leg swelling); Follow Up (follow up on colonoscopy,endoscopy and echo); and Abdominal Pain (c/o right sided abdominal pain s/p colonoscopy) HPI: Patient presents for follow-up on essential hypertension. Patient has had hypertension for many years. Current medications include Metoprolol and HCTZ. Pt has lisinopril listed previously, but she isnot sure she has it today. Patient does take his/her blood pressure at home. Range is around 138/60. No side effects noted from medications. Pt is wondering what some of her results are from her colonoscopy. Pt was started on Flagyl and Cipro. She has an occasional twinge of pain, but it improves on its own. It seems to be occurring againat this time. It is mild today. Pt needs refill of Soma she has refilled about once a year for occasional muscle spasms. Review of Systems Constitutional: Negative for fever. Respiratory: Negative for shortness of breath. Gastrointestinal: See HPI Musculoskeletal: See HPI Patient Active [...] Not on file Occupational History ??? 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 Financial resource strain: Not on file ??? Food insecurity: Worry: Not on file Inability: Not on file ??? Transportation needs: Medical: Not on file Non-medical: Not on file Tobacco Use ??? Smoking status: Former Smoker Packs/day: 1.00 Years: 12.00 Pack years: 12.00 Types: Cigarettes Last attempt to quit: 1977 Years since quittin.6 ??? Smokeless tobacco: Never Used Substance and Sexual Activity ??? Alcohol use: Yes Frequency: 2-3 times a week Drinks per session: 1 or 2 Binge frequency: Never Comment: 2 cocktails on some Sundays ??? Drug use: Never ??? Sexual activity: Not on file Lifestyle ??? Physical activity: Days per week: Not on file Minutes per session: Not on file ??? Stress: Not on file Relationships ??? Social connections: Talks on phone: Not on file Gets together: Not on file Attends synagogue service: Not on file Active member of club or organization: Not on file Attends meetings of clubs or organizations: Not on file Relationship status: Not on file ??? Intimate partner violence: Fear of current or ex partner: Not on file Emotionally abused: Not on file Physically abused: Not on file Forced sexual activity: Not on file Other Topics Concern ??? Not on file Social History Narrative ??? Not on file There is no immunization history on file for this patient. Current Outpatient Medications Medication Sig Dispense Refill ??? acetaminophen 325 MG tablet Take 325 mg by mouth. Take 2 in the am and 2 tabs in the pm and 1 PRN ??? buPROPion SR 150 MG 12 hr tablet ??? carisoprodol 350 MG tablet Take 1 tablet (350 mg total) by mouth 4 (four) times daily as neededfor Muscle Spasms. 30 tablet 0 ??? ciprofloxacin (CIPRO) 500 MG tablet Take 1 tablet (500 mg total) by mouth 2 (two) times daily for 10 days. 20 tablet 0 ??? furosemide 20 MG tablet Take 20 mg by mouth daily. ??? METOPROLOL SUCCINATE ER 50 MG 24 hr tablet TAKE 1 TABLET BY MOUTH EVERY DAY 30 tablet 0 ??? metroNIDAZOLE (FLAGYL) 500 MG tablet Take 1 tablet (500 mg total) by mouth 3 (three) times daily for 10 days. 30 tablet 0 ??? omeprazole 20 MG capsule TAKE 1 CAPSULE BY MOUTH EVERY DAY BEFORE A MEAL ??? potassium chloride CR 10 MEQ tablet Take one tablet by mouth once daily 90 tablet 1 ??? tolterodine LA 4 MG 24 hr capsule Take 4 mg by mouth daily. No current facility-administered medications for this visit. Current Outpatient Medications on File Prior to Visit Medication Sig ??? acetaminophen 325 MG tablet Take 325 mg by mouth. Take 2 in the am and 2 tabs in the pm and 1 PRN ??? buPROPion SR 150 MG 12 hr tablet ??? furosemide 20 MG tablet Take 20 mg by mouth daily. ??? METOPROLOL SUCCINATE ER 50 MG 24 hr tablet TAKE 1 TABLET BY MOUTH EVERY DAY ??? omeprazole 20 MG capsule TAKE 1 [...] ??? Sulfa Antibiotics Rash Objective: Filed Vitals: 05/18/20 0905 05/18/20 0949 BP: (!) 176/72 138/78 Pulse: 64 Resp: 18 Temp: 98.2 ??F (36.8 ??C) SpO2: 97% Weight: 114.8 kg (253 lb) Height: 5' (1.524 m) Physical Exam [...] no rales. Abdominal: Soft. There is no tenderness. Skin: Skin is warm and dry. No rash noted. Nursing note and vitals reviewed. Assessment & Plan: Jolly was seen today for edema, follow up and abdominal pain. Diagnoses and all orders for this visit: Essential hypertension Night muscle spasms - carisoprodol 350 MG tablet; Take 1 tablet (350 mg total) by mouth 4 (four) times daily as needed for Muscle Spasms. Colitis - metroNIDAZOLE (FLAGYL) 500 MG tablet; Take 1 tablet (500 mg total) by mouth 3 (three) times dailyfor 10 days. - ciprofloxacin (CIPRO) 500 MG tablet; Take 1 tablet (500 mg total) by mouth 2 (two) times daily for 10 days. BMI 45.0-49.9, adult ([facility]) Benign colon polyp Discussion/Summary: Relayed information about benign colon polyps needs to repeat colonoscopy in 1 year. Will repeat antibiotic given mild symptoms but partial recurrence. Will need CT scan if continues to occur needs go to ER if notably worsening. Will refill Soma today. Will have patient call back with readings of blood pressures for the next week and let us know if she is taking lisinopril or not as this is a question at this time. Will dictate further treatment based upon these results. Patient verbalized understanding. Sami Liriano DO documented in this encounter Plan of Treatment Upcoming Encounters Date Type Department Care Team (Late st Contact Info) Description 10/09/2024 9:30 AM APPLIANCE SERVICE TECHNICIAN Office Visit [facility] [phone] [facility] [address] [place] [address] 11/02/2024 10:20 AM APPLIANCE SERVICE TECHNICIAN Office Visit [facility] Group Family & Internal Medicine - [address] [phone] Sami Liriano DO [facility] [place] [address] documented as of this encounter Visit Diagnoses Diagnosis Essential hypertension- Primary Unspecified essential hypertension Night muscle spasms Spasm of muscle Colitis Other and unspecified noninfectious gastroenteritis and colitis BMI 45.0-49.9, adult ([facility]) Body Mass Index 45.0-49.9, adult Benign colon polyp Benign neoplasm of colon documented in this encounter Additional Health Concerns Assessment Noted Time PHQ-9 Depression Total Score: 0 10/29/19 20 11:04 AM APPLIANCE SERVICE TECHNICIAN documented as of this encounter Care Teams Social Work Nurse Relationship Specialty Start Date End Date Sami Liriano DO [address] [place] [address] PCP - General FAMILY PRACTICE 12/24/19 documented as of this encounter
--- OUTSIDE RECORDS SUMMARY | 2024-09-19 12:25 | XMS_ITS | Encounter Summary ---
Author Organization [facility] Address [address] [place] [address]. [place], [place] [address] [place] [address] Care Team Providers Care Pick Out Hand Name Role Phone Sami Liriano DO Primary Care Provider + Reason for Visit * Reason Onset Date Comments Medication 10/27/2020 Encounter Details Date Type Department Care Team (Late st Contact Info) Description 10/27/2020 Telephone [facility] Family & Internal Medicine [phone] [place] [address] Sami Liriano DO [facility] [place] [address] Medication Social History Tobacco Use [...] on file Legal Sex Female 12:43 PM CONSERVATION PLANNER Gender Identity Female 12/18/2021 6:31 AM CDT Sexual Orientation Straight 01/15/2022 6: 11 AM CDT 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 Rx sent to pharmacy ERVATION PLANNER documented in this encounter Plan of Treatment Upcoming Encounters Date Type Department Care Team (Late st Contact Info) Description 10/09/2024 9:30 AM CONSERVATION PLANNER Office Visit [facility] [phone] Carlos Farris MD [facility] [address] [place] [address] 11/02/2024 10:20 AM CONSERVATION PLANNER Office Visit [facility] Family & Internal Medicine - [address] [phone] Sami Liriano DO [address] [place] [address] documented as of this encounter Visit Diagnoses Diagnosis Essential hypertension- Primary Unspecified essential hypertension documented in this encounter Additional Health Concerns Assessment Noted Time PHQ-9 Depression Total Score: 0 10/29/19 11:04 AM CONSERVATION PLANNER documented as of this encounter Care Teams Pick Out Hand Relationship Specialty Start Date End Date Sami Liriano DO [address] [place] [address] PCP - General FAMILY PRACTICE 12/24/19 documented as of this encounter
--- OUTSIDE RECORDS SUMMARY | 2024-09-19 12:25 | XMS_ITS | Encounter Summary ---
Author Organization [facility] Address [facility]. [place], [place] [address] [place] [address] Care Team Providers Care Pastry Wrapper Name Role Phone Sami Liriano Primary Care Provider + Encounter Details Date Type Department Care Team (Latest Contact Info) Description 09/05/2020 Travel Social History Tobacco Use Types Packs/Day [...] file Legal Sex Female 12:43 PM LABOR SPECIALIST Gender Identity Female 12/18/2021 6:31 AM [...] COVID-19? No / Unsure 09/05/2020 12:43 PM LABOR SPECIALIST documented as of this encounter Plan of Treatment Upcoming Encounters Date Type Department Care Team (Late st Contact Info) Description 10/09/2024 9:30 AM LABOR SPECIALIST Office Visit [facility] [phone] Carlos Farris MD Three [facility] [address] [place] [address] 11/02/2024 10:20 AM LABOR SPECIALIST Office Visit [facility] Group Family & Internal Medicine - [address] [phone] Sami Liriano DO [address] [place] [address] documented as of this encounter Visit Diagnoses Not on filedocumented in this encounter Additional Health Concerns Assessment Noted Time PHQ-9 Depression Total Score: 0 10/29/19 11:04 AM LABOR SPECIALIST documented as of this encounter Care Teams Pastry Wrapper Relationship Specialty Start Date End Date Sami Liriano DO [address] [place] [address] PCP - General FAMILY PRACTICE 12/24/19 documented as of this encounter
--- OUTSIDE RECORDS SUMMARY | 2024-09-19 12:25 | XMS_ITS | Encounter Summary ---
Author Organization [facility] Address [address] [place] [address]. 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 Not on [...] st Contact Info) Description 10/09/2024 9:30 AM TIRE AND LUBE TECHNICIAN Office Visit [facility]-[address] [phone] Carlos Farris MD Three [facility] [address] [place] [address] 11/02/2024 10:20 AM TIRE AND LUBE TECHNICIAN Office Visit [facility] Family & Internal Medicine - [address] [phone] Sami Liriano DO [address] [place] [address] documented as of this encounter Visit Diagnoses Not on filedocumented in this encounter Additional Health Concerns Assessment Noted Time PHQ-9 Depression Total Score: 0 10/29/19 20 11:04 AM TIRE AND LUBE TECHNICIAN documented as of this encounter Care Teams Services Host Relationship Specialty Start Date End Date Sami Liriano DO [address] [place] [address] PCP - General FAMILY PRACTICE 12/24/19 documented as of this encounter
--- OUTSIDE RECORDS SUMMARY | 2024-09-19 12:25 | XMS_ITS | Encounter Summary ---
Author Organization [facility] Address [address] [place] [address]. [place], [place] [address] [place] [address] Care Team Providers Care Sole Tacker Name Role Phone Sami Liriano DO Primary Care Provider + Reason for Visit * Reason Onset Date Comments Lab Order 09/06/2020 Encounter Details Date Type Department Care Team (Late st Contact Info) Description 09/06/2020 Telephone [facility] Family & Internal Medicine [facility] [address] [place] [address] Sami Liriano DO [address] [place] [address] Lab Order Social History Tobacco [...] on file Legal Sex Female 12:43 PM MASTER FIRE CONTROL TECHNICIAN Gender Identity Female 12/18/2021 6:31 AM CDT Sexual Orientation Straight 01/15/2022 6: 11 AM CDT 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 No / Unsure 09/05/2020 12:43 PM MASTER FIRE CONTROL TECHNICIAN documented as of this encounter Progress Notes * Melanie Lance MA - 09/12/2020 4:25 PM CST Patient informed and aware of results tn ER FIRE CONTROL TECHNICIAN * Leanna Bean RN - 09/06/2020 8:57 AM CST Test added per Brooke at [facility]. ER FIRE CONTROL TECHNICIAN * Sami Liriano DO - 09/06/2020 8:18 AM CST Can we add on an A1c? [facility] ER FIRE CONTROL TECHNICIAN documented in this encounter Plan of Treatment Upcoming Encounters Date Type Department Care Team (Late st Contact Info) Description 10/09/2024 9:30 AM MASTER FIRE CONTROL TECHNICIAN Office Visit [facility]-[address] [phone] Carlos Farris MD [address] [facility] [address] [facility] [place] [address] 11/02/2024 10:20 AM MASTER FIRE CONTROL TECHNICIAN Office Visit [facility] Group Family & Internal Medicine - [address] [phone] Sami Liriano DO [address] [place] [address] documented as of this encounter Results * (ABNORMAL) HEMOGLOBIN, GLYCOSYLATED (09/05/2020 2:00 PM MASTER FIRE CONTROL TECHNICIAN) HGB A1C 5.8(H) <5.7 % 09/06/2020 10:25 AM MASTER FIRE CONTROL TECHNICIAN [facility] Comment: ADA GUIDELINES 2010 5.7 TO 6.4% INCREASED RISK OF DIABETES > OR = 6.5% CONSISTENT WITH DIABETES ESTIMATED AVG GLUCOSE 120 mg/dL 09/06/2020 10:25 AM MASTER FIRE CONTROL TECHNICIAN [facility] 09/05/2020 2:00 PM MASTER FIRE CONTROL TECHNICIAN us Sami Liriano DO LABORATORY Final Re sult [facility] 3 [place] [address], documented in this encounter Visit Diagnoses Diagnosis Hyperglycemia- Primary Other abnormal glucose documented in this encounter Additional Health Concerns Assessment Noted Time PHQ-9 Depression Total Score: 0 10/29/19 20 11:04 AM MASTER FIRE CONTROL TECHNICIAN documented as of this encounter Care Teams Sole Tacker Relationship Specialty Start Date End Date Sami Liriano DO [address] [place] [address] PCP - General FAMILY PRACTICE 12/24/19 documented as of this encounter
--- OUTSIDE RECORDS SUMMARY | 2024-09-19 12:25 | XMS_ITS | Encounter Summary ---
Author Organization [facility] Address [address] [place] [address]. [place], [place] [address] [place] [address] Care Team Providers Care Front End Engineer Name Role Phone Sami Liriano DO Primary Care Provider + Reason for Visit * Reason Onset Date Comments Lab Results 09/12/2020 Encounter Details Date Type Department Care Team (Late st Contact Info) Description 09/12/2020 Telephone [facility] Family & Internal Medicine [facility] [address] [place] [phone] Sami Liriano DO [address] [place] [address] Lab Results Social History Tobacco [...] on file Legal Sex Female 12:43 PM BRAND DESIGNER Gender Identity Female 12/18/2021 6:31 AM CDT [...] COVID-19? No / Unsure 09/05/2020 12:43 PM BRAND DESIGNER documented as of this encounter Progress Notes * Melanie Lance MA - 09/12/2020 8:43 AM CST Patient contacted and informed of results. Rx sent to pharmacyu and she will cb for appt after holidays. tn D DESIGNER * Melanie Lance MA - 09/12/2020 8:39 AM CST ----- Message from Sami Liriano DO sent at 09/11/2020 1:55 PM BRAND DESIGNER ----- A1c is mildly elevated at 5.8; need to watch diet/exercise. Vitamin D is low; recommend 2000 IU daily. Cholesterol is elevated; recommend statin medication unless she has not been started on this previously for a specific reason or she did not tolerate it. Recommend atorvastatin 10 mg daily. Other labs are essentially unchanged. Pt needs to f/u in 1-2 months from last OV. D DESIGNER documented in this encounter Plan of Treatment Upcoming Encounters Date Type Department Care Team (Late st Contact Info) Description 10/09/2024 9:30 AM BRAND DESIGNER Office Visit [facility]-[address] [phone] Carlos Farris MD Three [facility] [address] [place] [address] 11/02/2024 10:20 AM BRAND DESIGNER Office Visit [facility] Family & Internal Medicine - [address] [phone] Sami Liriano DO [address] [place] [address] documented as of this encounter Visit Diagnoses Diagnosis Hyperlipidemia- Primary Other and unspecified hyperlipidemia documented in this encounter Additional Health Concerns Assessment Noted Time PHQ-9 Depression Total Score: 0 10/29/19 20 11:04 AM BRAND DESIGNER documented as of this encounter Care Teams Front End Engineer Relationship Specialty Start Date End Date Sami Liriano DO [facility] [place] [address] PCP - General FAMILY PRACTICE 12/24/19 documented as of this encounter
--- OUTSIDE RECORDS SUMMARY | 2024-09-19 12:25 | XMS_ITS | Encounter Summary ---
Author Organization [facility] Address [facility] [place], [place] [address] [place] [address] Care Team Providers Care Saw Maker Name Role Phone Sami Liriano Primary Care Provider + Encounter Details Date Type Department Care Team (Latest Contact Info) Description 05/18/2020 Travel Social History Tobacco Use Types Packs/Day [...] on file Legal Sex Female 12:43 PM EVENTS ASSISTANT Gender Identity Female 12/18/2021 6:31 AM [...] st Contact Info) Description 10/09/2024 9:30 AM EVENTS ASSISTANT Office Visit [facility]-[address] [phone] Carlos Farris MD Three [facility] [address] [place] [address] 11/02/2024 10:20 AM EVENTS ASSISTANT Office Visit [facility] Family & Internal Medicine - [address] [phone] Sami Liriano DO [address] [place] [address] documented as of this encounter Visit Diagnoses Not on filedocumented in this encounter Additional Health Concerns Assessment Noted Time PHQ-9 Depression Total Score: 0 10/29/19 11:04 AM EVENTS ASSISTANT documented as of this encounter Care Teams Saw Maker Relationship Specialty Start Date End Date Sami Liriano DO [address] [place] [address] PCP - General FAMILY PRACTICE 12/24/19 documented as of this encounter
--- OUTSIDE RECORDS SUMMARY | 2024-09-19 12:25 | XMS_ITS | Encounter Summary ---
Author Organization [facility] Address [address] [place] [address]. [place], [place] [address] [place] [address] Care Team Providers Care Pattern Scratcher Name Role Phone Sami Liriano Primary Care Provider + Reason for Visit * Reason Comments Colonoscopy/EGD (SCAN) Encounter Details Date Type Department Care Team ([facility] Contact Info) Description 04/27/2020 Scan HEALTH INFO SRVCS Scanned, Documents Colonoscopy/EGD (SCAN) Social History Tobacco Use Types Packs/Day [...] on file Legal Sex Female 12:43 PM RESIDENTIAL SERVICE TECHNICIAN Gender Identity Female 12/18/2021 6:31 AM CDT Sexual Orientation Straight 01/15/2022 6: 11 AM CDT COVID-19 Exposure Response Date Recorded In the last month, have you been in contact with someone who was confirmed or suspected to have Coronavirus / COVID-19? No / Unsure 09/05/2020 12:43 PM RESIDENTIAL SERVICE TECHNICIAN documented as of this encounter Plan of Treatment Upcoming Encounters Date Type Department Care Team ([facility] Contact Info) Description 10/09/2024 9:30 AM RESIDENTIAL SERVICE TECHNICIAN Office Visit [facility] [phone] Carlos Farris MD Three [facility] [address] [place] [address] 11/02/2024 10:20 AM RESIDENTIAL SERVICE TECHNICIAN Office Visit [facility] Family & Internal Medicine - [address] [phone] [place] [address] [place] [address] documented as of this encounter Procedures Procedure Name Priority Date/Time Associated Diagnosis Comments COLONOSCOPY/EGD GENERIC (SCA N ORDER) Routine 04/27/2020 documented in this encounter Results * COLONOSCOPY/EGD (04/27/2020) us Documents Scanned SCANNING Final Result [facility] ON[facility] documented in this encounter Visit Diagnoses Not on filedocumented in this encounter Additional Health Concerns Assessment Noted Time PHQ-9 Depression Total Score: 0 10/29/19 20 11:04 AM RESIDENTIAL SERVICE TECHNICIAN documented as of this encounter Care Teams Pattern Scratcher Relationship Specialty Start Date End Date Sami Liriano DO [address] [place] [address] PCP - General FAMILY PRACTICE 12/24/19 documented as of this encounter
--- OUTSIDE RECORDS SUMMARY | 2024-09-19 12:25 | XMS_ITS | Encounter Summary ---
Author Organization [facility] Address [address] [place] [address]. [place], [place] [address] [place] [address] Care Team Providers Care Extension Course Coordinator Name Role Phone Sami Liriano DO Primary Care Provider + Reason for Visit * Reason Onset Date Comments Blood Pressure 05/29/2020 Encounter Details Date Type Department Care Team (Late st Contact Info) Description 05/29/2020 Telephone [facility] Family & Internal Medicine [facility] [address] [place] [address] Sami Liriano DO [address] [place] [address] Blood Pressure Social History Tobacco Use Types Packs/Day Years [...] on file Legal Sex Female 12:43 PM SPA ATTENDANT Gender Identity Female 12/18/2021 6:31 AM [...] as of this encounter Progress Notes * Leanna Bean RN - 06/14/2020 4:42 PM CDTAddended by: LEANNA BEAN on: 06/14/2020 04:42 PM Modules accepted: Orders * Sami Liriano DO - 06/14/2020 12:59 PM CDT Start on just 5 mg of lisinopril; may need an increase. Will base this off of her home readings. * Leanna Bean RN - 06/14/2020 11:20 AM CDT She states it was stopped because she was put on the metoprolol. Denied cough or anything of that nature. * Leanna Bean RN - 06/14/2020 9:40 AM CDT [facility] 06/14/20 * Saim Liriano DO - 06/13/2020 7:57 PM CDT I reviewed her BP readings; she needs another agent. Why was lisinopril stopped? I can't seem to find a reason when going through the chart. * Radha Oglesby MA - 06/01/2020 1:11 PM CDT Patient notified and v/u * Selena Espinosa - 06/01/2020 9:54 AM CDT Pt returned call, no one available. Pt is at work, would like call on [phone] * Leanna Bean RN - 06/01/2020 8:54 AM CDT [facility] 06/01/20 * Radha Oglesby MA - 05/31/2020 4:27 PM CDT [facility] 05/31/20 * Sami Liriano DO - 05/31/2020 11:32 AM CDT Increase metoprolol to 100 mg every day (can take two 50 mg tabs at same time). Give us more readings again and we will determine if we need to change again after this. Would need to add additional agent if not controlled with this increase. * Poppy Alas - 05/31/2020 10:39 AM CDT Pt is not taking lisinopril, she was told to stop taking that. She takes metoprolol though. * Leanna Bean RN - 05/30/2020 11:38 AM CDT [facility] 05/30/20 * Sami Liriano DO - 05/29/2020 2:22 PM CDT Please let patient know I personally reviewed her blood pressure readings. I believe she would be benefited by an increase in her medication. Please clarify with patient if she is taking lisinopril or not as there was some question about this at her last office visit. Will dictate increase in medication based upon this answer. documented in this encounter Plan of Treatment Upcoming Encounters Date Type Department Care Team (Late st Contact Info) Description 10/09/2024 9:30 AM SPA ATTENDANT Office Visit [facility] [address] Carlos Farris MD [facility] [address] [facility] [place] [address] 11/02/2024 10:20 AM SPA ATTENDANT Office Visit [facility] Family & Internal Medicine - [address] [phone] Sami Liriano DO [address] [place] [address] documented as of this encounter Visit Diagnoses Diagnosis Essential hypertension Unspecified essential hypertension documented in this encounter Additional Health Concerns Assessment Noted Time PHQ-9 Depression Total Score: 0 10/29/19 20 11:04 AM SPA ATTENDANT documented as of this encounter Care Teams Extension Course Coordinator Relationship Specialty Start Date End Date Sami Liriano DO [address] [place] [address] PCP - General FAMILY PRACTICE 12/24/19 documented as of this encounter
--- OUTSIDE RECORDS SUMMARY | 2024-09-19 12:25 | XMS_ITS | Encounter Summary ---
Author Organization [facility] Address [address] [place] [address]. 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 No / Unsure 04/24/2020 9:15 AM CDT documented as of this encounter Progress Notes * Sumaya Ro MA - 04/25/2020 9:53 AM CDT Spoke with pt and informed of the following. * Sumaya Ro MA - 04/25/2020 9:52 AM CDT ----- Message from JENNIFER Davila sent at 04/22/2020 4:04 PM CDT ----- Let pt know no alarming findings seen on ECHO documented in this encounter Plan of Treatment Upcoming Encounters Date Type Department Care Team (Late st Contact Info) Description 10/09/2024 9:30 AM DRILL BIT SHARPENER Office Visit [facility] [phone] Carlos Farris MD [facility] [address] [place] [address] 11/02/2024 10:20 AM DRILL BIT SHARPENER Office Visit [facility] Family & Internal Medicine - [address] [phone] Sami Liriano DO [address] [place] [address] documented as of this encounter Visit Diagnoses Not on filedocumented in this encounter Additional Health Concerns Infection Onset Date Last Indicated Resolved Time COVID-19 Rule Out 04/24/2020 04/24/2020 04/25/2020 4:28 PM CDT Assessment Noted Time PHQ-9 Depression Total Score: 0 10/29/19 11:04 AM DRILL BIT SHARPENER documented as of this encounter Care Teams Subject Scientific Research Relationship Specialty Start Date End Date Sami Liriano DO [address] [place] [address] PCP - General FAMILY PRACTICE 12/24/19 documented as of this encounter
--- OUTSIDE RECORDS SUMMARY | 2024-09-19 12:25 | XMS_ITS | Encounter Summary ---
Author Organization [facility] Address [address] [place] [address]. 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 Not on file [...] st Contact Info) Description 10/09/2024 9:30 AM HEARING HEALTH TECHNICIAN Office Visit [facility] [phone] Carlos Farris MD Three [facility] [address] [place] [address] 11/02/2024 10:20 AM HEARING HEALTH TECHNICIAN Office Visit [facility] Family & Internal Medicine - [address] [phone] Sami Liriano DO [address] [place] [address] documented as of this encounter Visit Diagnoses Not on filedocumented in this encounter Additional Health Concerns Assessment Noted Time PHQ-9 Depression Total Score: 0 10/29/19 20 11:04 AM HEARING HEALTH TECHNICIAN documented as of this encounter Care Teams Lens Cementer Relationship Specialty Start Date End Date Sami Liriano DO [address] [place] [address] PCP - General FAMILY PRACTICE 12/24/19 documented as of this encounter
--- OUTSIDE RECORDS SUMMARY | 2024-09-19 12:25 | XMS_ITS | Encounter Summary ---
Author Organization [facility] Address [address] [place] [address]. [place], [place] [address] [place] [address] Care Team Providers Care Cobol Engineer Name Role Phone Sami Liriano DO Primary Care Provider + Reason for Visit * Reason Onset Date Comments Other 10/04/2020 Labs. Encounter Details Date Type Department Care Team (Late st Contact Info) Description 10/04/2020 Telephone [facility] Family & Internal Medicine [facility] [address] [place] [address] Sami Liriano DO [facility] [place] [address] Other (Labs. 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 No / Unsure 09/05/2020 12:43 PM BALING PRESS OPERATOR documented as of this encounter Progress Notes * Yissel Corley MA - 10/04/2020 1:36 PM CST Pt wants to make sure her sugars are ok. Her sugars are 5.8 just slighly elevated. pt voiced understanding, Recommendation is to watch diet and exercise. cholesterol was high. Pt mentioned that she is taken her Atorvastatin. Made an appt for pt in 1 month to go over meds. BB 10/04/20. NG PRESS OPERATOR NG PRESS OPERATOR NG PRESS OPERATOR documented in this encounter Plan of Treatment Upcoming Encounters Date Type Department Care Team (Late st Contact Info) Description 10/09/2024 9:30 AM BALING PRESS OPERATOR Office Visit [facility]-[address] [phone] Carlos Farris MD Three [facility] Suite [facility] [place] [address] 11/02/2024 10:20 AM BALING PRESS OPERATOR Office Visit [facility] Family & Internal Medicine - [address] [phone] Sami Liriano DO [address] [place] [address] documented as of this encounter Visit Diagnoses Not on filedocumented in this encounter Additional Health Concerns Assessment Noted Time PHQ-9 Depression Total Score: 0 10/29/19 11:04 AM BALING PRESS OPERATOR documented as of this encounter Care Teams Cobol Engineer Relationship Specialty Start Date End Date Sami Liriano DO [address] [place] [address] PCP - General FAMILY PRACTICE 12/24/19 documented as of this encounter
--- OUTSIDE RECORDS SUMMARY | 2024-09-19 12:25 | XMS_ITS | Encounter Summary ---
Author Organization [facility] Address [facility] [place], [place] [address] [place] [address] Care Team Providers Care Entry Rep Name Role Phone Sami Liriano Primary Care Provider + Encounter Details Date Type Department Care Team (Late st Contact Info) Description 09/06/[address] [facility] [place] [address] Non-Staff, Provider Social History Tobacco Use Types Packs/Day Years [...] on file Legal Sex Female 12:43 PM BUCKLE GLUER Gender Identity Female 12/18/2021 6:31 AM [...] COVID-19? No / Unsure 09/05/2020 12:43 PM BUCKLE GLUER documented as of this encounter Plan of Treatment Upcoming Encounters Date Type Department Care Team (Late st Contact Info) Description 10/09/2024 9:30 AM BUCKLE GLUER Office Visit [facility]-[address] [phone] Carlos Farris MD Three [facility] [address] [place] [address] 11/02/2024 10:20 AM BUCKLE GLUER Office Visit [facility] Family & Internal Medicine - [address] [phone] Sami Liriano DO [address] [place] [address] documented as of this encounter Visit Diagnoses Not on filedocumented in this encounter Additional Health Concerns Assessment Noted Time PHQ-9 Depression Total Score: 0 10/29/19 11:04 AM BUCKLE GLUER documented as of this encounter Care Teams Entry Rep Relationship Specialty Start Date End Date Sami Liriano DO [address] [place] [address] PCP - General FAMILY PRACTICE 12/24/19 documented as of this encounter
--- OUTSIDE RECORDS SUMMARY | 2024-09-19 12:25 | XMS_ITS | Encounter Summary ---
Author Organization [facility] Address [address] [place] [address]. 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 Not on franck e documented as of this encounter Plan of Treatment Upcoming Encounters Date Type Department Care Team (Late Contact Info) Description 10/09/2024 9:30 AM SENIOR WEB ENGINEER Office Visit [facility] [address] Carlos Farris MD [address] [facility] [address] [place] [address] 11/02/2024 10:20 AM SENIOR WEB ENGINEER Office Visit [facility] Family & Internal Medicine - [address] [phone] Sami Liriano DO [address] [place] [address] documented as of this encounter Visit Diagnoses Not on filedocumented in this encounter Additional Health Concerns Assessment Noted Time PHQ-9 Depression Total Score: 0 10/29/19 20 11:04 AM SENIOR WEB ENGINEER documented as of this encounter Care Teams Soil Specialist Relationship Specialty Start Date End Date Sami Liriano DO [address] [place] [address] PCP - General FAMILY PRACTICE 12/24/19 documented as of this encounter
--- OUTSIDE RECORDS SUMMARY | 2024-09-19 12:26 | XMS_ITS | Encounter Summary ---
Author Organization [facility] Address [address] [place] [address]. [place], [place] [address] [place] [address] Care Team Providers Care Glassine Machine Tender Name Role Phone Sami Liriano Primary Care Provider + Encounter Details Date Type Department Care Team (Latest Contact Info) Description 04/15/2020 Travel Social History Tobacco Use Types Packs/Day [...] on file Legal Sex Female 12:43 PM MOTORCOACH OPERATOR Gender Identity Female 12/18/2021 6:31 AM CDT Sexual Orientation Straight 01/15/2022 6: 11 AM CDT COVID-19 Exposure Response Date Recorded In the last month, have you been in contact with someone who was confirmed or suspected to have Coronavirus / COVID-19? No / Unsure 04/15/2020 2:39 PM CDT documented as of this encounter Plan of Treatment Upcoming Encounters Date Type Department Care Team (Late st Contact Info) Description 10/09/2024 9:30 AM MOTORCOACH OPERATOR Office Visit [facility]-[address] [phone] Carlos Farris MD [facility] [address] [place] [address] 11/02/2024 10:20 AM MOTORCOACH OPERATOR Office Visit [facility] Family & Internal Medicine - [address] [phone] Sami Liriano DO [address] [place] [address] documented as of this encounter Visit Diagnoses Not on filedocumented in this encounter Additional Health Concerns Assessment Noted Time PHQ-9 Depression Total Score: 0 10/29/19 20 11:04 AM MOTORCOACH OPERATOR documented as of this encounter Care Teams Glassine Machine Tender Relationship Specialty Start Date End Date Sami Liriano DO [address] [place] [address] PCP - General FAMILY PRACTICE 12/24/19 documented as of this encounter
--- OUTSIDE RECORDS SUMMARY | 2024-09-19 12:26 | XMS_ITS | Encounter Summary ---
Author Organization [facility] Address [facility]. [place], [place] [address] [place] [address] Care Team Providers Care Chemical Technician Name Role Phone Sami Liriano Nicole AGUIAR Primary Care Provider + Reason for Referral * Surgical (Routine) - Closed Specialty Diagnoses / Procedures Referred By Shereen benton Referred To Contact Diagnoses Pharyngoesophageal dysphagia Positive colorectal cancer screening using Cologuard test Procedures Case request operating room: COLONOSCOPY DIAGNOSTIC WITH/WITHOUT SPECIMEN BRUSH/WASH, EGD DX WITH BRUSH/WASH Joel Keenan MD [address] [place] [address] [place] [address] Phone: tel: fax: Referral ID Status Reason Start Date Expiration Date Visits Re quested Visits Authorized [id number] Closed 04/19/2020 05/20/2021 1 1 Encounter Details Date Type Department Care Team (Late st Contact Info) Description 04/19/2020 Orders Only [facility] Multispecialty Care - [address] [place] [address] Joel Keenan MD [address] [place] [address] [address] [place] [address] Social History Tobacco Use Types Packs/Day Years Used Date Smoking Tobacco: Former Cigarettes 1 12 1 715 - 1976 Smokeless Tobacco: Never Alcohol Use Standard [...] on file Legal Sex Female 12:43 PM FACILITY PRACTICE SPECIALIST Gender Identity Female 12/18/2021 6:31 AM [...] st Contact Info) Description 10/09/2024 9:30 AM FACILITY PRACTICE SPECIALIST Office Visit [facility]-[address] [phone] Carlos Farris MD [facility] [address] [place] [address] 11/02/2024 10:20 AM FACILITY PRACTICE SPECIALIST Office Visit [facility] Medical Group Family & Internal Medicine - [address] [phone] Sami Liriano DO [address] [place] [address] Scheduled Orders Name Type Priority Associated Diagnoses Orde r Schedule Case request operating room: COLONOSCOPY DIAGNOSTIC WITH/WITHOUT SPECIMEN BRUSH/WASH, EGD DX WITH BRUSH/WASH Case Request Routine Pharyngoesophageal dysphagia Positive colorectal cancer screening using Cologuard test Expected: 04/27/2020, Expires: 04/19/2021 documented as of this encounter Visit Diagnoses Diagnosis Pharyngoesophageal dysphagia- Primary Dysphagia, pharyngoesophageal phase Positive colorectal cancer screening using Cologuard test documented in this encounter Additional Health Concerns Assessment Noted Time PHQ-9 Depression Total Score: 0 10/29/19 11:04 AM FACILITY PRACTICE SPECIALIST documented as of this encounter Care Teams Chemical Technician Relationship Specialty Start Date End Date Sami Liriano DO [address] [place] [address] PCP - General FAMILY PRACTICE 12/24/19 documented as of this encounter
--- OUTSIDE RECORDS SUMMARY | 2024-09-19 12:26 | XMS_ITS | Encounter Summary ---
Author Organization [facility] Address [facility] [place]. [place], [place] [address] [place] [address] Care Team Providers Care Appetizer Packer Name Role Phone Sami Liriano Primary Care Provider + Encounter Details Date Type Department Care Team (Latest Contact Info) Description 04/24/2020 7:05 AM CDT - 04/24/2020 11:59 PM CDT Hospital Encounter [facility] [address] [place] [address] Joel Keenan MD [address] [place], [place] [phone] Discharge Disposition: Home or Self Care (Routine Discharge) Social History Tobacco Use Types Packs/Day Years Used Date Smoking Tobacco: Former Cigarettes 1 12 [id number] Smokeless Tobacco: Never Alcohol Use Standard Drinks/Week [...] on file Legal Sex Female 12:43 PM VACUUM SYSTEM TESTER Gender Identity Female 12/18/2021 6:31 AM [...] 09/07/2019 1 documented as of this encounter Plan of Treatment Upcoming Encounters Date Type Department Care Team (Late st Contact Info) Description 10/09/2024 9:30 AM VACUUM SYSTEM TESTER Office Visit [facility] [phone] Carlos Farris MD Three [facility] [address] [place] [address] 11/02/2024 10:20 AM VACUUM SYSTEM TESTER Office Visit [facility] Family & Internal Medicine - [address] [phone] Sami Liriano, DO [address] [place] [address] documented as of this encounter Procedures Procedure Name Priority Date/Time Associated Diagnosis Comments CORONAVIRUS (COVID 19) Routine 04/24/2020 9:16 AM CDT Preop testing documented in this encounter Results * PRE-SURGICAL/PRE-PROCEDURE CORONAVIRUS (COVID 19) (04/24/2020 9:16 AM CDT) CORONAVIRUS SARS COV 2 PCR (RESP) NOT DETECTED NOT DETECTED 04/25/2020 4:27 PM CDT [facility] Comment: A Not Detected (negative) test result for this test means that SARS- CoV-2 RNA was not present in the specimen above the limit of detection. A negative result does not rule out the possibility of COVID-19 and should not be used as the sole basis for treatment or patient management decisions. ??If COVID-19 is still suspected, based on exposure history together with other clinical findings, re-testing should be considered in consultation with public health authorities. Laboratory test results should always be considered in the context of clinical observations and epidemiological data in making a final diagnosis and patient management decisions. Please review the Fact Sheets and FDA authorized labeling available for health care providers and patients using the following websites: https://www.[employer].com/home/Covid-19/HCP/NAAT/fact-sheet2 https://www.[employer].Tradeshift/home/Covid-19/Patients/NAAT/ fact-sheet2 This test has been authorized by the FDA under an Emergency Use Authorization (EUA) for use by authorized laboratories. Due to the current public health emergency, [facility] is receiving a high volume of samples from a wide variety of swabs and media for COVID-19 testing. In order to serve patients during this public health crisis, samples from appropriate clinical sources are being tested. Negative test results derived from specimens received in non-commercially manufactured viral collection and transport media, or in media and sample collection kits not yet authorized by FDA for COVID-19 testing should be cautiously evaluated and the patient potentially subjected to extra precautions such as additional clinical monitoring, including collection of an additional specimen. Methodology: ??Nucleic Acid Amplification Test (NAAT) includes PCR or TMA Additional information about COVID-19 can be found at the [facility] website: www.[employer].Tradeshift/Covid19. Test performed at [facility] [place] [address] [place], [place] ??[address] Director: DEDRA DENG DO,MPH NASOPHARYNGEAL SWAB / Unknown 04/24/2020 9:16 AM CDT us Joel Keenan MD MICROBIOLOGY - GENERAL ORDERABLE S Final Result [facility] [address] [address] documented in this encounter Visit Diagnoses Diagnosis Preop testing Preoperative examination, unspecified documented in this encounter Additional Health Concerns Infection Onset Date Last Indicated Resolved Time COVID-19 Rule Out 04/24/2020 04/24/2020 04/25/2020 4:28 PM CDT Assessment Noted Time PHQ-9 Depression Total Score: 0 10/29/19 20 11:04 AM VACUUM SYSTEM TESTER documented as of this encounter Care Teams Appetizer Packer Relationship Specialty Start Date End Date Sami Liriano DO [address] [place], [place] [phone] PCP - General FAMILY PRACTICE 12/24/19 documented as of this encounter
--- OUTSIDE RECORDS SUMMARY | 2024-09-19 12:26 | XMS_ITS | Encounter Summary ---
Author Organization [facility] Address [facility]. [place], [place] [address] [place] [address] Care Team Providers Care Operating System Designer Name Role Phone Sami Liriano Primary Care Provider + Encounter Details Date Type Department Care Team (Late st Contact Info) Description 04/21/2020 Prep for Procedure [facility] [address] [place] [address] Joel Keenan MD [address] [phone] Social History Tobacco Use Types Packs/Day Years [...] on file Legal Sex Female 12:43 PM WET POUR MIXER Gender Identity Female 12/18/2021 6:31 AM CDT [...] st Contact Info) Description 10/09/2024 9:30 AM WET POUR MIXER Office Visit [facility] [phone] Carlos Farris MD [address] [facility] [address] [facility] [place] [address] 11/02/2024 10:20 AM WET POUR MIXER Office Visit [facility] Family & Internal Medicine - [address] [phone] Sami Liriano DO [address] [place] [address] documented as of this encounter Results * PRE-SURGICAL/PRE-PROCEDURE CORONAVIRUS (COVID 19) (04/24/2020 9:16 AM CDT) CORONAVIRUS SARS COV 2 PCR (RESP) NOT DETECTED NOT DETECTED 04/25/2020 4:27 PM CDT [facility] Comment: A Not Detected (negative) [...] providers and patients using the following websites: https://www.[employer].com/home/Covid-19/HCP/NAAT/fact-sheet2 https://www.[employer].com/home/Covid-19/Patients/NAAT/ fact-sheet2 This test has been authorized by the FDA under an Emergency Use Authorization (EUA) for use by authorized laboratories. Due to the current public health emergency, [facility] is receiving a high volume of samples [...] about COVID-19 can be found at the [facility] website: www.[employer]icon/Covid19. Test performed at [facility] [place] [address] [place], [place] ??[address] Director: DEDRA DENG DO,MPH NASOPHARYNGEAL SWAB / Unknown 04/24/2020 9:16 AM CDT us Joel Keenan MD MICROBIOLOGY - GENERAL ORDERABLE S Final Result [facility] [address] [address], documented in this encounter Visit Diagnoses Diagnosis Preop testing- Primary Preoperative examination, unspecified documented in this encounter Additional Health Concerns Infection Onset Date Last Indicated Resolved Time COVID-19 Rule Out 04/24/2020 04/24/2020 04/25/2020 4:28 PM CDT COVID-19 Rule Out 05/25/2021 05/25/2021 05/27/2021 4:08 AM CDT COVID-19 Rule Out 10/06/2021 10/11/2021 10/11/2021 8:45 AM WET POUR MIXER COVID-19 Rule Out 10/11/2021 10/11/2021 10/12/2021 1:13 AM WET POUR MIXER COVID-19 Confirmed 10/11/2021 10/11/2021 12:35 AM WET POUR MIXER COVID-19 Rule Out 06/27/2022 06/27/2022 06/27/2022 2:35 PM CDT COVID-19 Rule Out 07/24/2023 07/24/2023 07/24/2023 11:49 AM CDT COVID-19 Rule Out 07/24/2023 07/24/2023 07/25/2023 4:22 PM CDT COVID-19 Rule Out 11/01/2023 11/01/2023 11/01/2023 2:42 PM WET POUR MIXER Assessment Noted Time PHQ-9 Depression Total Score: 0 10/29/19 11:04 AM WET POUR MIXER documented as of this encounter Care Teams Operating System Designer Relationship Specialty Start Date End Date Sami Liriano DO [address] [place] [address] PCP - General FAMILY PRACTICE 12/24/19 documented as of this encounter
--- OUTSIDE RECORDS SUMMARY | 2024-09-19 12:26 | XMS_ITS | Encounter Summary ---
Author Organization [facility] Address [address] [place] [address]. [place], [place] [address] [place] [address] Care Team Providers Care Script Girl Name Role Phone Sami Liriano Primary Care Provider + Encounter Details Date Type Department Care Team (Latest Contact Info) Description 04/24/2020 Travel Social History Tobacco Use Types Packs/Day [...] on file Legal Sex Female 12:43 PM CURTAIN FELLER BLINDSTITCH Gender Identity Female 12/18/2021 6:31 AM CDT [...] st Contact Info) Description 10/09/2024 9:30 AM CURTAIN FELLER BLINDSTITCH Office Visit [facility]-[address] [phone] Carlos Farris MD Three [facility] [address] [place] [address] 11/02/2024 10:20 AM CURTAIN FELLER BLINDSTITCH Office Visit [facility] Family & Internal Medicine - [address] [phone] Sami Liriano DO [address] [place] [address] documented as of this encounter Visit Diagnoses Not on filedocumented in this encounter Additional Health Concerns Infection Onset Date Last Indicated Resolved Time COVID-19 Rule Out 04/24/2020 04/24/2020 04/25/2020 4:28 PM CDT Assessment Noted Time PHQ-9 Depression Total Score: 0 10/29/19 11:04 AM CURTAIN FELLER BLINDSTITCH documented as of this encounter Care Teams Script Girl Relationship Specialty Start Date End Date Sami Liriano DO [address] [place] [address] PCP - General FAMILY PRACTICE 12/24/19 documented as of this encounter
--- OUTSIDE RECORDS SUMMARY | 2024-09-19 12:26 | XMS_ITS | Encounter Summary ---
Author Organization [facility] Address [facility]. [place], [place] [address] [place] [address] Care Team Providers Care Panel Edge Sealer Name Role Phone Sami Liriano DO Primary Care Provider + Reason for Visit * Imaging (Routine) - Closed Specialty Diagnoses / Procedures Referred By Shereen benton Referred To Contact RADIOLOGY Diagnoses Essential hypertension Lower extremity edema Procedures USE ECHOCARDIOGRAM W CON USE ECHOCARDIOGRAM Nathan Sexton APNP [address] [place] [address] Phone: tel: fax: Referral ID Status Reason Start Date Expiration Date Visits Re quested Visits Authorized [id number] Closed 03/03/2020 04/02/2021 1 1 Encounter Details Date Type Department Care Team (Latest Contact Info) Description 04/21/2020 2:00 PM CDT - 04/21/2020 11:59 PM CDT Hospital Encounter [facility] [place] [address] Nathan Sexton APNP [address] [place], [place] [phone] Discharge Disposition: Home or Self Care (Routine [...] file Legal Sex Female 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 No / Unsure 04/21/2020 2:49 PM CDT documented as of this encounter [...] encounter Progress Notes * JENNIFER Davila - 04/22/2020 4:04 PM CDT Let pt know no alarming findings seen on ECHO documented in this encounter Plan of Treatment Upcoming Encounters Date Type Department Care Team (Late st Contact Info) Description 10/09/2024 9:30 AM CAR STEREO INSTALLER Office Visit [facility]-[address] [phone] Carlos Farris MD [address] [facility] [address] [place] [address] 11/02/2024 10:20 AM CAR STEREO INSTALLER Office Visit [facility] Family & Internal Medicine - [address] [phone] Sami Liriano DO [address] [place], [place] [phone] documented as of this encounter Procedures Procedure Name Priority Date/Time Associated Diagnosis Comments USE ECHOCARDIOGRAM W CON Routine 04/21/2020 4:35 PM CDT Essential hypertension Lower extremity edema documented in this encounter Results * USE ECHOCARDIOGRAM W CON (04/21/2020 4:35 PM CDT) Anatomical Region Laterality Modality NA Echocardiogram 04/21/2020 3:09 PM CDT Narrative 04/21/2020 5:08 PM CDT ?Echocardiography Report Pat.Name: ??HAIR SARGENT ?Pat.ID: ?[id number] ? St.Date: ?? 04/21/2020 ? Refer.MD: ??[id number], NATHAN SEXTON Exam Time: 3:09:00 PM ? Study Type:ECHO WITH CARDIAC DOPPLER COMP Height: ?59in ?Weight: ?253.47lb ? BSA: ? 2.04 m2 ?Age: ??1955,65Y ? Sex: ? FEMALE ?BP: ?128/53 ? HR: ?73 bpm ?Sonogrphr: Siddharth Leigh [facility] ? Pat. Stat.:Outpatient ? Reason for Study: HTN, Lower extremity edema Procedures: ??2D, M-mode, Doppler, Color Flow, Definity was used to enhance endocardial definition. Race: ?W ? ++++++++++++++++++++++++++++++++++++ SUMMARY: ++++++++++++++++++++++++++++++++++++ The [...] pulmonic regurgitation. No evidence of tricuspid regurgitation. ++++++++++++++++++++++++++++++++++++ FINDINGS: ++++++++++++++++++++++++++++++++++++ LV: ? The left ventricular size is normal. Estimated left ?ventricular ??ejection fraction is >70%. Mild concentric left ?ventricular ??hypertrophy. Left ventricular diastolic ?function ??is abnormal (grade 1 - impaired relaxation). WM: ? Wall motion appears normal in all segments. RV: ? The right ventricular size is normal. Right ventricular ?systolic ??function is normal. IVS: ?No evidence of ventricular septal defect. LA: ? The left atrial volume is normal ( less than 34 ml/M2). RA: ? Right atrial size is normal. IAS: ?Atrial septum appears intact. MIGUEL: ? No evidence of pericardial effusion. AO: ? Normal aortic root. PA: ? Unable to reliably quantitate pulmonary systolic pressure. SVn: ?Inferior vena cava is normal. Inferior vena cava shows <50% ?collapse ??with respiration consistent with elevated right ?atrial ??pressure. AV: ? The aortic valve is trileaflet. No evidence of aortic valve ?stenosis. ??No evidence of aortic valve regurgitation. MV: ? Trace mitral regurgitation. No evidence of mitral stenosis. PV: ? No evidence of pulmonic valve stenosis. Mild pulmonic ?regurgitation. TV: ? No evidence of tricuspid regurgitation. No evidence of ?tricuspid ??valve stenosis. ++++++++++++++++++++++++++++++++++++ MEASUREMENTS: ++++++++++++++++++++++++++++++++++++ ?DOPPLER LVOT ?? LVOTpkPG ? 7 mmHg ?LVOTmnPG ? 3 mmHg LVOTpkVel ?128 cm/s (70-110) LVOT SV ? 81 ml ?? Index ?39.7 ml/m2 LVOT TVI ?25.8 cm ? Right Atrium ?? RA Press ? 8 mmHg ?Yang's Disk ? 20 ? Pulmonary Veins ?? PVnpkVeld ? 31.5 cm/s ?PVnVs/Vd ? 1.6 ? PVnpkVels ? 49.6 cm/s ?PVn A Dur ? 99 ms ?? AV Forward Flow AV TVI ?28.5 cm ?AV pkPG ?7 mmHg AV pkVel ? 130 cm/s (100-170) Area (TVI) ?2.84 cm2 ??(3-5) Index ?1.39 cm2/m2 AV mnPG ?4 mmHg ?Area (Kurtis) ?3.09 cm2 ??(3- 5) MV Forward Flow MV DeTm ?331 ms ?MV pkE ?68.6 cm/s (60-130) MV E/A ? 0.7 ? MV pkA ?93.6 cm/s PV Forward Flow PV pkVel ? 138 cm/s (60-90) ??PV AC ?102 ms ?? PV pkPG ?8 mmHg ? PV Regurg Flow PV pkVel ?86.9 cm/s ? TV Forward Flow TV pkE ?52.2 cm/s ? Lat E' ?? Lat e ? 8.22 cm/s ? Lat E/E' ?? Lat E/e ?8.3 ? Med E' ?? Med e ? 6.09 cm/s ? Med E/E' ?? Med E/e ? 11.3 ? Aortic Valve ?? Aortic Valve Ar ??1.39 ?Aortic Valve Ve ??0.98 ? PV Antegrade Flow Acceleration Sl ??1230 cm/s2 ? PV Regurgitant Flow Peak Gradient ( ? 3 mmHg ? Right Ventricle ?? Right Ventricle ??12.2 cm/s ?2D Left Ventricle ?? LVIDd ? 5.12 cm ?? (3.6-5.2) LV ESV ?27.1 ml ?? LVIDs ? 3.53 cm ?? (2.3-3.9) LV ESV ?32.1 ml ?? LngAxd ?7.68 cm ?LVESV BP ?29.4 ml ?? LngAxd ?8.21 cm ?LV EF ? 71.5 % ?? LV EDV ?95 ml ?LV EF ? 72.8 % ?? LV EDV ? 118 ml ?LV EF BP ?72.8 % ?? LVEDV BP ? 108 ml ?LV SV ? 68 ml ?? LngAxs ?6.07 cm ?LV SV ? 85.9 ml ?? LngAxs ?6.09 cm ?LV SV BP ?78.6 ml ?? LVPW ?? LVPWd ? 1.22 cm ? Ventricular Septum ?? IVSd ? 1.2 cm ? Left Atrium ?? LA VOLBP ?50.4 ml ?Index ?24.7 ml/m2 ? LVOT ?? LVOT ? 2 cm ?LVOTArea ?3.14 cm2 Ratios ?? IVS LA Biplane LAVol I BP ?24.7 ml/m2 ? RA Single Plane Right Atrium MO ??10.6 mm ? Right Atrium Sy ??25.7 ml ?? Right Atrium Sy ??46.5 mm ? Right Atrium Sy ??12.6 ml/m2 Right Atrium Sy ??12.1 cm2 ? Right Ventricle ?? Right Ventricle ??30.9 mm ? Right Ventricle ?28 mm ?? Major Smithton ?62.2 mm ? Signed 04/21/2020 05:08 PM Erik Bowling M.D. Procedure Note Erik Bowling MD - 04/21/2020 Echocardiography Report Pat.Name: DAYAN HAIR L Pat.ID: [id number] .Date: 04/21/2020 Refer.MD: [id number] HOLLY Exam Time: 3:09:00 PM Study Type:ECHO WITH CARDIAC DOPPLER COMP Height: 59in Weight: 253.47lb BSA: 2.04 m2 Age: 5 1955,65Y Sex: FEMALE BP: 128/53 HR: 73 bpm Sonogrphr: Siddharth Leigh [facility] Pat. Stat.:Outpatient Reason for Study: HTN, Lower extremity edema Procedures: 2D, M-mode, Doppler, Color Flow, Definity was used to enhance endocardial definition. Race: W ++++++++++++++++++++++++++++++++++++ SUMMARY: ++++++++++++++++++++++++++++++++++++ The left [...] pulmonic regurgitation. No evidence of tricuspid regurgitation. ++++++++++++++++++++++++++++++++++++ FINDINGS: ++++++++++++++++++++++++++++++++++++ LV: The left ventricular size is normal. Estimated left ventricular ejection fraction is >70%. Mild concentric left ventricular hypertrophy. Left ventricular diastolic function is abnormal (grade 1 - impaired relaxation). WM: Wall motion appears normal in all segments. RV: The right ventricular size is normal. Right ventricular systolic function is normal. IVS: No evidence of ventricular septal defect. LA: The left atrial volume is normal ( less than 34 ml/M2). RA: Right atrial size is normal. IAS: Atrial septum appears intact. MIGUEL: No evidence of pericardial effusion. AO: Normal aortic root. PA: Unable to reliably quantitate pulmonary systolic pressure. SVn: Inferior vena cava is normal. Inferior vena cava shows <50% collapse with respiration consistent with elevated right atrial pressure. AV: The aortic valve is trileaflet. No evidence of aortic valve stenosis. No evidence of aortic valve regurgitation. MV: Trace mitral regurgitation. No evidence of mitral stenosis. PV: No evidence of pulmonic valve stenosis. Mild pulmonic regurgitation. TV: No evidence of tricuspid regurgitation. No evidence of tricuspid valve stenosis. ++++++++++++++++++++++++++++++++++++ MEASUREMENTS: ++++++++++++++++++++++++++++++++++++ DOPPLER LVOT LVOTpkPG 7 mmHg LVOTmnPG 3 mmHg LVOTpkVel 128 cm/s (70-110) LVOT SV 81 ml Index 39.7 ml/m2 LVOT TVI 25.8 cm Right Atrium RA Press 8 mmHg Yang's Disk 20 Pulmonary Veins PVnpkVeld 31.5 cm/s PVnVs/Vd 1.6 PVnpkVels 49.6 cm/s PVn A Dur 99 ms AV Forward Flow AV TVI 28.5 cm AV pkPG 7 mmHg AV pkVel 130 cm/s (100-170) Area (TVI) 2.84 cm2 (3-5) Index 1.39 cm2/m2 AV mnPG 4 mmHg Area (Kurtis) 3.09 cm2 (3-5) MV Forward Flow MV DeTm 331 ms MV pkE 68.6 cm/s (60-130) MV E/A 0.7 MV pkA 93.6 cm/s PV Forward Flow PV pkVel 138 cm/s (60-90) PV AC 102 ms PV pkPG 8 mmHg PV Regurg Flow PV pkVel 86.9 cm/s TV Forward Flow TV pkE 52.2 cm/s Lat E' Lat e 8.22 cm/s Lat E/E' Lat E/e 8.3 Med E' Med e 6.09 cm/s Med E/E' Med E/e 11.3 Aortic Valve Aortic Valve Ar 1.39 Aortic Valve Ve 0.98 PV Antegrade Flow Acceleration Sl 1230 cm/s2 PV Regurgitant Flow Peak Gradient ( 3 mmHg Right Ventricle Right Ventricle 12.2 cm/s 2D Left Ventricle LVIDd 5.12 cm (3.6-5.2) LV ESV 27.1 ml LVIDs 3.53 cm (2.3-3.9) LV ESV 32.1 ml LngAxd 7.68 cm LVESV BP 29.4 ml LngAxd 8.21 cm LV EF 71.5 % LV EDV 95 ml LV EF 72.8 % LV EDV 118 ml LV EF BP 72.8 % LVEDV BP 108 ml LV SV 68 ml LngAxs 6.07 cm LV SV 85.9 ml LngAxs 6.09 cm LV SV BP 78.6 ml LVPW LVPWd 1.22 cm Ventricular Septum IVSd 1.2 cm Left Atrium LA VOLBP 50.4 ml Index 24.7 ml/m2 LVOT LVOT 2 cm LVOTArea 3.14 cm2 Ratios IVS LA Biplane LAVol I BP 24.7 ml/m2 RA Single Plane Right Atrium MO 10.6 mm Right Atrium Sy 25.7 ml Right Atrium Sy 46.5 mm Right Atrium Sy 12.6 ml/m2 Right Atrium Sy 12.1 cm2 Right Ventricle Right Ventricle 30.9 mm Right Ventricle 28 mm Major Smithton 62.2 mm Signed 04/21/2020 05:08 PM Erik Bowling M.D. Nathan RODRIGUEZ ECHO Final Resul t documented in this encounter Visit Diagnoses Diagnosis Essential hypertension Unspecified essential hypertension Lower extremity edema Edema documented in this encounter Administered Medications Inactive Administered Medications - up to 3 most recent administrations Medication Order MAR Action Action Date Dose Rate Site perflutren lipid microsphere (DEFINITY) injection 2 mL 2 mL, Intravenous, IMG once as needed, Contrast, 1 dose, Starting on Sana 04/21/20 at 1548, Until Sana 04/21/20 at 1548, Administer over 30-60 seconds. Follow with 10 mL saline flush. Given 04/21/2020 3:48 PM CDT 2 mLs documented in this encounter Additional Health Concerns Assessment Noted Time PHQ-9 Depression Total Score: 0 10/29/19 20 11:04 AM CAR STEREO INSTALLER documented as of this encounter Care Teams Panel Edge Sealer Relationship Specialty Start Date End Date Sami Liriano DO [address] [place] [address] PCP - General FAMILY PRACTICE 12/24/19 documented as of this encounter
--- OUTSIDE RECORDS SUMMARY | 2024-09-19 12:26 | XMS_ITS | Encounter Summary ---
Author Organization [facility] Address [address] [place] [address]. [place], [place] [address] [place] [address] Care Team Providers Care Insurance Compliance Analyst Name Role Phone Sami Liriano Primary Care Provider + Encounter Details Date Type Department Care Team (Latest Contact Info) Description 04/21/2020 Travel Social History Tobacco Use Types Packs/Day [...] on file Legal Sex Female 12:43 PM PARTS CLASSIFIER Gender Identity Female 12/18/2021 6:31 AM [...] st Contact Info) Description 10/09/2024 9:30 AM PARTS CLASSIFIER Office Visit [facility] [phone] Carlos Farris MD [facility] [address] [place] [address] 11/02/2024 10:20 AM PARTS CLASSIFIER Office Visit [facility] Family & Internal Medicine - [address] [phone] Sami Liriano DO [address] [place] [address] documented as of this encounter Visit Diagnoses Not on filedocumented in this encounter Additional Health Concerns Assessment Noted Time PHQ-9 Depression Total Score: 0 10/29/19 20 11:04 AM PARTS CLASSIFIER documented as of this encounter Care Teams Insurance Compliance Analyst Relationship Specialty Start Date End Date Sami Liriano DO [address] [place] [address] PCP - General FAMILY PRACTICE 12/24/19 documented as of this encounter
--- OUTSIDE RECORDS SUMMARY | 2024-09-19 12:27 | XMS_ITS | Encounter Summary ---
Author Organization [facility] Address [address] [place] [address]. 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 No / Unsure 03/18/2020 10:43 AM CDT documented as of this encounter Progress Notes * Radha Oglesby MA - 03/21/2020 4:53 PM CDT Patient notified and v/u documented in this encounter Plan of Treatment Upcoming Encounters Date Type Department Care Team (Late st Contact Info) Description 10/09/2024 9:30 AM MANAGER ASSET MANAGEMENT Office Visit [facility] [phone] Carlos Farris MD [facility] [address] [place] [address] 11/02/2024 10:20 AM MANAGER ASSET MANAGEMENT Office Visit [facility] Family & Internal Medicine - [address] [phone] Sami Liriano DO [address] [place] [address] documented as of this encounter Visit Diagnoses Not on filedocumented in this encounter Additional Health Concerns Assessment Noted Time PHQ-9 Depression Total Score: 0 10/29/19 20 11:04 AM MANAGER ASSET MANAGEMENT documented as of this encounter Care Teams Sonographer Relationship Specialty Start Date End Date Sami Liriano DO [address] [place] [address] PCP - General FAMILY PRACTICE 12/24/19 documented as of this encounter
--- OUTSIDE RECORDS SUMMARY | 2024-09-19 12:27 | XMS_ITS | Encounter Summary ---
Author Organization [facility] Address [address] [place] [address]. 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 No / Unsure 03/25/2020 8:47 AM CDT documented as of this encounter Plan of Treatment Upcoming Encounters Date Type Department Care Team (Late st Contact Info) Description 10/09/2024 9:30 AM PROCESS LABORATORY SPECIALIST Office Visit [facility] [address] Carlos Farris MD [facility] [address] [place] [address] 11/02/2024 10:20 AM PROCESS LABORATORY SPECIALIST Office Visit [facility] Family & Internal Medicine - [address] [phone] Sami Liriano DO [address] [place] [address] documented as of this encounter Visit Diagnoses Not on filedocumented in this encounter Additional Health Concerns Assessment Noted Time PHQ-9 Depression Total Score: 0 10/29/19 20 11:04 AM PROCESS LABORATORY SPECIALIST documented as of this encounter Care Teams Project Officer Relationship Specialty Start Date End Date Sami Liriano DO [address] [place] [address] PCP - General FAMILY PRACTICE 12/24/19 documented as of this encounter
--- OUTSIDE RECORDS SUMMARY | 2024-09-19 12:27 | XMS_ITS | Encounter Summary ---
Author Organization [facility] Address Critical access hospital6 [facility]. [place], [place] [address] [place] [address] Care Team Providers Care Web Production Designer Name Role Phone Sami Liriano Primary Care Provider + Encounter Details Date Type Department Care Team (Latest Contact Info) Description 03/18/2020 7:19 PM CDT - 03/18/2020 11:59 PM CDT Hospital Encounter 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 08/24/2019 0 escitalopram 20 MG tablet Take 20 mg by mouth daily. 08/24/2019 0 furosemide 20 MG tabletIndications: Bilateral lower extremity edema Take one tablet once daily for 3 days 90 tablet 1 03/11/2020 0 hydroCHLOROthiazid e 25 MG tabletIndications: Essential hypertension,Lower extremity edema Take 1 tablet (25 mg total) by mouth every morning. 30 tablet 1 03/03/2020 0 lisinopril 40 MG tabletIndications: Essential hypertension Take 1 tablet (40 mg total) by mouth daily. 90 tablet 1 03/11/2020 0 metoprolol succinate ER 50 MG 24 hr tabletIndications: Essential hypertension Take 1 tablet (50 mg total) by mouth daily. 30 tablet 1 03/18/2020 0 omeprazole 20 MG capsule TAKE 1 [...] encounter Progress Notes * JENNIFER Davila - 03/18/2020 11:59 PM CDT TSH is normal. I also ordered a BMP---was this done? documented in this encounter Plan of Treatment Upcoming Encounters Date Type Department Care Team (Late st Contact Info) Description 10/09/2024 9:30 AM ASSEMBLY TECHNICIAN Office Visit [facility] [phone] Carlos Farris MD [address] [facility] [address] [place] [address] 11/02/2024 10:20 AM ASSEMBLY TECHNICIAN Office Visit [facility] Family & Internal Medicine - [address] [address] Sami Liriano DO [address] [place] [address] documented as of this encounter Procedures Procedure Name Priority Date/Time Associated Diagnosis Comments TSH W/REFLEX Routine 03/18/2020 11:06 AM CDT Essential hypertension Lower extremity edema documented in this encounter Results * TSH W/REFLEX (03/18/2020 11:06 AM CDT) TSH 1.770 0.358 - 3.74 uIU/ML 03/18/2020 8:54 PM CDT [facility] Comment: HIGH DOSES OF BIOTIN MAY INTERFERE WITH THIS TEST RESULT. CORRELATION TO CLINICAL HISTORY AND PRESENTATION RECOMMENDED. FREE T4 NOT INDICATED 03/18/2020 11:0 6 AM CDT us [facility] Final Resul t [facility] 3 [facility] [place] [address], [place] [phone] documented in this encounter Visit Diagnoses Diagnosis Essential hypertension Unspecified essential hypertension Lower extremity edema Edema documented in this encounter Additional Health Concerns Assessment Noted Time PHQ-9 Depression Total Score: 0 10/29/19 11:04 AM ASSEMBLY TECHNICIAN documented as of this encounter Care Teams Web Production Designer Relationship Specialty Start Date End Date Sami Liriano DO [address] [place] [address] PCP - General FAMILY PRACTICE 12/24/19 documented as of this encounter
--- OUTSIDE RECORDS SUMMARY | 2024-09-19 12:27 | XMS_ITS | Encounter Summary ---
Author Organization [facility] Address [facility]. [place], [place] [address] [place] [address] Care Team Providers Care Training And Development Director Name Role Phone Sami Liriano Primary Care Provider + Reason for Visit * Reason Onset Date Comments Follow Up Call 03/29/2020 Encounter Details Date Type Department Care Team (Late st Contact Info) Description 03/29/2020 Telephone [facility] Multispecialty Care - [facility] [address] [facility] [address] [place] [phone] Joel Keenan MD 3 [facility] [address] [place] [address] Follow Up Call Social History Tobacco Use [...] on file Legal Sex Female 12:43 PM 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 No / Unsure 03/25/2020 8:47 AM CDT documented as of this encounter Progress Notes * Heidi Méndez MA - 03/29/2020 4:25 PM CDT [place] pt apt [place] * Priyanka Hewitt - 03/29/2020 4:23 PM CDT Patient called in again, Heidi is going to call her now. * Heidi Méndez MA - 03/29/2020 4:18 PM CDT Returned patient's call LVM * Priyanka Hewitt - 03/29/2020 3:23 PM CDT Patient called in, scheduled first available appointment for 07/28/2020, New Patient. Patient has blood in stool and has had for last couple of months. Please follow up with patient, wants to know if you can get her in sooner. Ok to leave detailed message on phone. documented in this encounter Plan of Treatment Upcoming Encounters Date Type Department Care Team (Late st Contact Info) Description 10/09/2024 9:30 AM DESKTOP OPERATOR Office Visit [facility]-[address] [phone] Carlos Farris MD [facility] [address] [place] [address] 11/02/2024 10:20 AM DESKTOP OPERATOR Office Visit [facility] Medical Group Family & Internal Medicine - [place] [address] [place] [phone] Sami Liriano DO [address] [place] [address] documented as of this encounter Visit Diagnoses Not on filedocumented in this encounter Additional Health Concerns Assessment Noted Time PHQ-9 Depression Total Score: 0 10/29/19 11:04 AM DESKTOP OPERATOR documented as of this encounter Care Teams Training And Development Director Relationship Specialty Start Date End Date Sami Liriano DO [address] [place] [address] PCP - General FAMILY PRACTICE 12/24/19 documented as of this encounter
--- OUTSIDE RECORDS SUMMARY | 2024-09-19 12:27 | XMS_ITS | Encounter Summary ---
Author Organization [facility] Address [address] [place] [address]. [place], [place] [address] [place] [address] Care Team Providers Care Console Assembler Name Role Phone Sami Liriano DO Primary Care Provider + Reason for Visit * Reason Onset Date Comments Lab Results 03/21/2020 Encounter Details Date Type Department Care Team (Late st Contact Info) Description 03/21/2020 Telephone [facility] Family & Internal Medicine [phone] [place] [address] Sami Liriano DO [facility] [place] [address] Lab Results Social History Tobacco [...] on file Legal Sex Female 12:43 PM ACQUISITIONS ANALYST Gender Identity Female 12/18/2021 6:31 AM CDT Sexual Orientation Straight 01/15/2022 6: 11 AM CDT COVID-19 Exposure Response Date Recorded In the last month, have you been in contact with someone who was confirmed or suspected to have Coronavirus / COVID-19? No / Unsure 03/18/2020 10:43 AM CDT documented as of this encounter Progress Notes * Melanie Lance MA - 03/21/2020 4:13 PM CDT Spoke with [facility] lab and they are adding BMP on tn * Melanie Lance MA - 03/21/2020 4:13 PM CDT ----- Message from JENNIFER Davila sent at 03/21/2020 8:37 AM CDT ----- TSH is normal. I also ordered a BMP---was this done? documented in this encounter Plan of Treatment Upcoming Encounters Date Type Department Care Team (Late st Contact Info) Description 10/09/2024 9:30 AM ACQUISITIONS ANALYST Office Visit [facility]-[address] [phone] Carlos Farris MD Three [facility] [address] [place] [address] 11/02/2024 10:20 AM ACQUISITIONS ANALYST Office Visit [facility] Medical Group Family & Internal Medicine - [address] [phone] Sami Liriano DO [address] [place] [address] documented as of this encounter Visit Diagnoses Not on filedocumented in this encounter Additional Health Concerns Assessment Noted Time PHQ-9 Depression Total Score: 0 10/29/19 20 11:04 AM ACQUISITIONS ANALYST documented as of this encounter Care Teams Console Assembler Relationship Specialty Start Date End Date Sami Liriano DO [address] [place] [address] PCP - General FAMILY PRACTICE 12/24/19 documented as of this encounter
--- OUTSIDE RECORDS SUMMARY | 2024-09-19 12:27 | XMS_ITS | Encounter Summary ---
Author Organization [facility] Address [facility] [place], [place] [address] [place] [address] Care Team Providers Care Water Use Inspector Name Role Phone Sami Gimenez DO Primary Care Provider + Reason for Referral * Consultation (Routine) - Closed Specialty Diagnoses / Procedures Referred By Shereen benton Referred To Contact OPHTHALMOLOGY Diagnoses Floaters in visual field Sami Gimenez DO [address] [place] [address] Phone: tel: fax: Kristopher Austin MD Phone: tel: fax: Referral ID Status Reason Start Date Expiration Date V isits Requested Visits Authorized [id number] Closed Specialty Services 04/22/2020 04/22/2021 6 6 Reason for Visit * Reason Onset Date Comments Referral 04/14/2020 Encounter Details Date Type Department Care Team (Late st Contact Info) Description 04/14/2020 Telephone [facility] Family & Internal Medicine [facility] [address] [place] [address] Sami Gimenez DO [address] [place], [place] [id number] Referral Social History Tobacco Use Types Packs/Day Years Used Date Smoking Tobacco: Former Cigarettes 1 12 456 1976 Smokeless Tobacco: Never Alcohol Use Standard [...] on file 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 No / Unsure 03/25/2020 8:47 AM CDT documented as of this encounter Progress Notes * Sami Gimenez DO - 04/14/2020 6:[address] to [address]. * Sumaya Ro MA - 04/14/2020 1:52 PM CDT Ok to place referral? * Selena Espinosa - 04/14/2020 11:35 AM CDT The patient called for a referral to the following physician: Is this a new consult: yes 's name: Kristopher Austin Specialty: ophthalmology Reason for referral (diagnosis): cataract left eye Phone number n/a Fax number: n/a Insurance: [employer] Appointment: 04/26 NPI # [id number] Tax ID # [id number] Patient call back #: [phone] Last office visit at this office: Last visit with SAMI GIMENEZ in FAMILY PRACTICE was on: 10/29/2019 in [facility] Future appointment scheduled: Future Appointments Date Time Provider Department Center 04/15/2020 2:40 PM Joel Keenan MD [facility] 04/20/2020 11:00 AM Sami Gimenez DO [id number] 04/21/2020 2:00 PM [facility] 07/28/2020 1:20 PM Joel Keenan MD [facility] documented in this encounter Plan of Treatment Upcoming Encounters Date Type Department Care Team (Late st Contact Info) Description 10/09/2024 9:30 AM WIRE WEAVER Office Visit [facility] [phone] Carlos Farris MD [address] [facility] [address] [place] [address] 11/02/2024 10:20 AM WIRE WEAVER Office Visit [facility] Medical Group Family & Internal Medicine - [address] [phone] Sami Gimenez DO [facility] [place] [address] Scheduled Referrals Name Type Priority Associated Diagnoses Orde r Schedule Ambulatory Referral to Ophthalmology Referral Routine Floaters in visual field Ordered: 04/15/2020 documented as of this encounter Visit Diagnoses Diagnosis Floaters in visual field- Primary documented in this encounter Additional Health Concerns Assessment Noted Time PHQ-9 Depression Total Score: 0 10/29/19 20 11:04 AM WIRE WEAVER documented as of this encounter Care Teams Water Use Inspector Relationship Specialty Start Date End Date Sami Gimenez DO [address] [place] [address] PCP - General FAMILY PRACTICE 12/24/19 documented as of this encounter
--- OUTSIDE RECORDS SUMMARY | 2024-09-19 12:27 | XMS_ITS | Encounter Summary ---
Author Organization [facility] Address [address] [place] [address]. [place], [place] [id number] [place] [address] Care Team Providers Care Community Development Coordinator Name Role Phone Sami Liriano Primary Care Provider + Reason for Visit * Reason Comments Hypertension 1 week f/u Encounter Details Date Type Department Care Team (Late st Contact Info) Description 03/25/2020 8:40 AM CDT Office Visit [facility] Family [facility] Internal Medicine [id number] [place] [address] Barb Sexton APNP [facility] [place] [address] Hypertension (1 week f/u) Social History Tobacco Use Types Packs/Day Years Used Date Smoking Tobacco: Former Cigarettes 1 08 30 [id number] Smokeless Tobacco: Never Alcohol Use Standard Drinks/Week [...] on file Legal Sex Female 12:43 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 Gender Identity Female 12/18/2021 6:31 AM [...] Sign Reading Time Taken Comments Blood Pressure 136/67 03/25/2020 9:33 AM CDT Pulse 61 03/25/2020 8:49 AM CDT Temperature 36.9 ??C (98.5 ??F) 03/25/2020 8:49 AM CD T Respiratory Rate 16 03/25/2020 8:49 AM CDT Oxygen Saturation 100% 03/25/2020 8:49 AM CDT Inhaled Oxygen Concentration - - Weight 113.9 kg (251 lb) 03/25/2020 8:49 AM CDT Height 149.9 cm (4' 11 ) 03/25/2020 8:49 AM CDT Body Mass Index 50.7 03/25/2020 8:49 AM CDT documented in this encounter Progress Notes * JENNIFER Davila - 03/25/2020 8:40 AM CDT Images from the original note were not included. [facility] FAMILY AND INTERNAL [facility]ICINE OFFICE VISIT Reason for Visit: Hypertension (1 week f/u) History of Present Illness: 65 yo female here today for HTN and edema follow up. Her last visit with me was a week ago and she was a week ago and her metoprolol was increased from 25 to 50 mg. She states she is feeling much better and has lost 5 lbs since last week. BP is still sl elevated initially, will recheck. She denies any CP, SOB, MACHUCA, dizziness, heart palpitations or lower extremity edema. Her ECHO is scheduled for Saturday. She has noticed over the last few weeks, her stool has a reddish color. No bright red blood noted. No black stools, abd pain, fever, N/V. She notes her stool is softer than usual, but would not call diarrhea. Cologard was done this year and returned positive. There was a referral to gastroenterology placed in November 2019, but patient did not follow-up. She does note that she remembers there being some sortof abnormality with her Cologuard but forgot what she was supposed today. She denies any abdominal pain, bright red blood, black stool, nausea vomiting, fever or chills. ROS: Review of Systems Constitutional: Negative for chills, fever and malaise/fatigue. Respiratory: Negative for cough and shortness of breath. Cardiovascular: Negative for chest pain and palpitations. Gastrointestinal: Positive for blood in stool and melena. Negative for abdominal pain, constipation, diarrhea, nausea and vomiting. Genitourinary: Negative for dysuria and urgency. Neurological: Negative for dizziness and headaches. Medications: Current Outpatient Medications: ??? acetaminophen 325 MG tablet, Take 325 mg by mouth. Take 2 in the am and 2 tabs in the pm and 1 PRN, Disp: , Rfl: ??? buPROPion SR 150 MG 12 hr tablet, , Disp: , Rfl: ??? carisoprodol 350 MG tablet, Take 350 mg by mouth 3 (three) times daily as needed. , Disp: , Rfl: ??? escitalopram 20 MG tablet, Take 20 mg by mouth daily., Disp: , Rfl: ??? furosemide 20 MG tablet, Take one tablet once daily for 3 days, Disp: 90 tablet, Rfl: 1 ??? hydroCHLOROthiazide 25 MG tablet, Take 1 tablet (25 mg total) by mouth every morning., Disp: 30tablet, Rfl: 1 ??? lisinopril 40 MG tablet, Take 1 tablet (40 mg total) by mouth daily., Disp: 90 tablet, Rfl: 1 ??? metoprolol succinate ER 50 MG 24 hr tablet, Take 1 tablet (50 mg total) by mouth daily., Disp: 30 tablet, Rfl: 1 ??? omeprazole 20 MG capsule, TAKE 1 CAPSULE BY MOUTH EVERY DAY BEFORE A MEAL, Disp: , Rfl: ??? potassium chloride CR 10 MEQ tablet, Take one tablet by mouth once daily, Disp: 90 tablet, Rfl:1 ??? tolterodine LA 4 MG 24 hr capsule, Take 4 mg by mouth daily., Disp: , Rfl: Allergies: Allergies Allergen Reactions ??? Penicillins Rash [...] level: Not on file Occupational History ??? Not on file Social Needs ??? Financial resource strain: Not on file ??? Food insecurity: Worry: Not on file Inability: Not on file ??? Transportation needs: Medical: Not on file Non-medical: Not on file Tobacco Use ??? Smoking status: Former Smoker Packs/day: 1.00 Years: 12.00 Pack years: 12.00 Types: Cigarettes Last attempt to quit: 1976 Years since quittin.5 ??? Smokeless tobacco: Never Used Substance and Sexual Activity ??? Alcohol use: Yes Frequency: 2-3 times a week Drinks per session: 1 or 2 Binge frequency: Never ??? Drug use: Never ??? Sexual activity: Not on file Lifestyle ??? Physical activity: Days per week: Not on file Minutes per session: Not on file ??? Stress: Not on file Relationships ??? Social connections: Talks on phone: Not on file Gets together: Not on file Attends oriental orthodox service: Not on file Active member of [...] Social History Narrative ??? Not on file Family History: Family History Problem Relation Name Age of Onset ??? Alzheimers Mother ??? Heart Attack Father ??? Heart Disease Father ??? Alzheimers Father ??? Alzheimers Maternal Grandmother ??? Heart Disease Paternal Grandfather PE: Physical Exam Constitutional: She is oriented to person, place, and time and well-developed, well-nourished, and in no distress. HENT: Head: Normocephalic and atraumatic. Eyes: Conjunctivae and EOM are normal. No scleral icterus. Neck: Normal range of motion. Neck supple. No tracheal deviation present. Cardiovascular: Normal rate, regular rhythm and normal heart sounds. Pulmonary/Chest: Effort normal and breath sounds normal. No stridor. No respiratory distress. She has no wheezes. She has no rales. Abdominal: Soft. Bowel sounds are normal. She exhibits no distension and no mass. There is no tenderness. There is no rebound and no guarding. Musculoskeletal: Normal range of motion. She exhibits no deformity. Neurological: She is alert and oriented to person, place, and time. Gait normal. Skin: Skin is warm and dry. No rash noted. No erythema. No pallor. Psychiatric: Mood and affect normal. Nursing note and vitals reviewed. Filed Vitals: 03/25/20 0849 03/25/20 0933 BP: (!) 165/69 136/67 Pulse: 61 Resp: 16 Temp: 98.5 ??F (36.9 ??C) SpO2: 100% Weight: 113.9 kg (251 lb) Height: 4' 11 (1.499 m) Labs: Labs Reviewed Diagnoses/Impression: 1. Essential hypertension Chronic 2. Bilateral lower extremity edema 3. Blood in stool Recommendations and Plan: 1. Essential hypertension Blood pressure improved upon recheck. Patient is to continue med at current dose. 2. Bilateral lower extremity edema Improving. Continue meds. 3. Blood in stool Patient already has a gastroenterology referral in place. She will call and make an appointment. Will call gastroenterology scheduling to see if appointment timing could be moved up if possible. No orders of the defined types were placed in this encounter. Cannot display discharge medications since this is not an admission. PCP: JENNIFER Davila 03/25/2020 documented in this encounter Plan of Treatment Upcoming Encounters Date Type Department Care Team (Late st Contact Info) Description 10/09/2024 9:30 AM REHAB DEPARTMENT MANAGER Office Visit [facility] [phone] Carlos Farris MD [facility] [address] [place] [address] 11/02/2024 10:20 AM REHAB DEPARTMENT MANAGER Office Visit [facility] Family & Internal Medicine - [address] [phone] Sami Liriano DO [address] [place] [address] documented as of this encounter Visit Diagnoses Diagnosis Essential hypertension- Primary Unspecified essential hypertension Bilateral lower extremity edema Edema Blood in stool documented in this encounter Additional Health Concerns Assessment Noted Time PHQ-9 Depression Total Score: 0 10/29/19 20 11:04 AM REHAB DEPARTMENT MANAGER documented as of this encounter Care Teams Community Development Coordinator Relationship Specialty Start Date End Date Sami Liriano DO [address] [place] [address] PCP - General FAMILY PRACTICE 12/24/19 documented as of this encounter
--- OUTSIDE RECORDS SUMMARY | 2024-09-19 12:27 | XMS_ITS | Encounter Summary ---
Author Organization [facility] Address [facility] [place], [place] [address] [place] [address] Care Team Providers Care Clothing Sales Assistant Name Role Phone Sami Liriano DO Primary Care Provider + Reason for Visit * Reason Comments Consult For Colonoscopy no past colonosc opy, had positive cologuard, she states she did see some blood on tissue when she would wipe ever since December * Consultation (Routine) - Closed Specialty Diagnoses / Procedures Referred By Contac t Referred To Contact GASTROENTEROLOGY Diagnoses Positive colorectal cancer screening using Cologuard test Sami Liriano DO [address] [place] [address] Phone: tel: fax: Joel Keenan MD [address] [address] Phone: tel: fax: Referral ID Status Reason Start Date Expiration Date Visits Re quested Visits Authorized [id number] Closed 02/08/2020 09/29/2020 8 8 Encounter Details Date Type Department Care Team (Latest Contact Info) Description 04/15/2020 2:40 PM CDT Office Visit [facility] [address] [phone] Joel Keenan MD [address] [address] Jenn Cortes NP 3 [facility] [address] [place], [place] [id number] Consult For Colonoscopy (no past colonoscopy, had positive cologuard, she states she did see some blood on tissue when she would wipe ever since December) Social History Tobacco Use Types Packs/Day Years [...] on file Legal Sex Female 12:43 PM FIELD KILN BURNER Gender Identity Female 12/18/2021 6:31 AM CDT [...] Sign Reading Time Taken Comments Blood Pressure 142/76 04/15/2020 3:01 PM CDT Pulse 68 04/15/2020 3:01 PM CDT Temperature - - Respiratory Rate 20 04/15/2020 3:01 PM CDT Oxygen Saturation 96% 04/15/2020 3:01 PM CDT Inhaled Oxygen Concentration - - Weight 115.2 kg (254 lb) 04/15/2020 3:01 PM CDT Height - - Body Mass Index 51.3 03/25/2020 8:49 AM CDT documented in this encounter Progress Notes * Jenn Cortes NP - 04/15/2020 2:40 PM [...] were seen. Bougie dilation Morrison size 54 Cambodian used. 11/26/2019+ Cologuard Diagnoses/Impression: Positive colorectal cancer [...] ring with a dilation with a 54 Cambodian Morrison on 04/17/2019 which did improve her [...] Plan: ?? Schedule EGD and Colonoscopy at [facility] ?? Suprep split prep ?? It [...] Cortes NP 04/15/2020 documented in this encounter Plan of Treatment Upcoming Encounters Date Type Department Care Team (Late st Contact Info) Description 10/09/2024 9:30 AM FIELD KILN BURNER Office Visit [facility] [phone] Carlos Farris MD [facility] Suite [facility] [place] [address] 11/02/2024 10:20 AM FIELD KILN BURNER Office Visit [facility] Family & Internal Medicine - [address] [phone] Sami Liriano DO [address] [place] [address] documented as of this encounter Visit Diagnoses Diagnosis Positive colorectal cancer screening using Cologuard test- Primary Pharyngoesophageal dysphagia Dysphagia, pharyngoesophageal phase BRBPR (bright red blood per rectum) Hemorrhage of rectum and anus documented in this encounter Additional Health Concerns Assessment Noted Time PHQ-9 Depression Total Score: 0 10/29/19 11:04 AM FIELD KILN BURNER documented as of this encounter Care Teams Clothing Sales Assistant Relationship Specialty Start Date End Date Sami Liriano DO [address] [place] [address] PCP - General FAMILY PRACTICE 12/24/19 documented as of this encounter
--- OUTSIDE RECORDS SUMMARY | 2024-09-19 12:28 | XMS_ITS | Encounter Summary ---
Author Organization [facility] Address [address] [place] [address]. 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 No / Unsure 03/11/2020 10:37 AM CDT documented as of this encounter Last Filed Vital Signs Vital Sign Reading Time Taken Comments Blood Pressure 133/43 03/11/2020 10:48 AM CDT Pulse 63 03/11/2020 10:48 AM CDT Temperature 36.7 ??C (98.1 ??F) 03/11/2020 10:48 AM C DT Respiratory Rate 18 03/11/2020 10:48 AM CDT Oxygen Saturation 99% 03/11/2020 10:48 AM CDT Inhaled Oxygen Concentration - - Weight 116.6 kg (257 lb) 03/11/2020 10:48 AM CDT Height 149.9 cm (4' 11 ) 03/11/2020 10:48 AM CDT Body Mass Index 51.91 03/11/2020 10:48 AM CDT documented in this encounter Patient Instructions * Patient Instructions* QUETA Houser - 03/11/2020 10:40 AM CDT Decrease furosemide to 20 mg daily Start potassium 10 Meq daily Continue lisinopril as prescribed Check your blood pressure daily at home and keep records to bring to your office visits. Call for any issues, concerns or side effects with these medications. Follow up in one week for a recheck of your symptoms. documented in this encounter Progress Notes * QUETA Houser - 03/11/2020 10:40 AM CDT Office Progress Note Reason for Visit: Hypertension Follow Up History of Present Illness: Toyin presents to the office for a 4 day follow up for bilateral lower leg swelling. She was seen by the other ESTHETICIAN in this office, ivis and was started on lisinopril and 40 mg of furosemide for 3 days and advised to return to the clinic. She reports that her symptoms have improved since her last visit but she says that she was only given 3 days of medication when Ivis filled this and she did notknow that she was prescribed potassium, so she reports that she never picked this up. She denies any SOB or chest pain presently. She also denies a cough. ROS: Review of Systems Constitutional: Negative for chills, fever and weight loss. HENT: Negative for congestion, ear discharge, ear pain, hearing loss, nosebleeds, sinus pain, sore throat and tinnitus. Eyes: Negative for blurred vision, double vision, photophobia, pain, discharge and redness. Respiratory: Negative for cough, hemoptysis, sputum production, shortness of breath and wheezing. Cardiovascular: Negative for chest pain, palpitations, orthopnea, claudication, leg swelling and PND. Gastrointestinal: Negative for abdominal pain, blood in stool, constipation, diarrhea, heartburn, melena, nausea and vomiting. Genitourinary: Negative for dysuria, flank pain, frequency, hematuria and urgency. Musculoskeletal: Negative for back pain, falls, joint pain, myalgias and neck pain. Neurological: Negative for dizziness, tingling, tremors, sensory change, speech change, focal weakness, seizures, loss of consciousness, weakness and headaches. Psychiatric/Behavioral: Negative for depression, hallucinations, memory loss, [...] tablet ??? carisoprodol 350 MG tablet Take 350 mg by mouth 3 (three) times daily as needed. ??? escitalopram 20 MG tablet Take 20 mg by mouth daily. ??? metoprolol succinate ER 25 MG 24 hr tablet Take 1 tablet (25 mg total) by mouth daily. ??? omeprazole 20 MG capsule TAKE 1 CAPSULE BY MOUTH EVERY DAY BEFORE A MEAL ??? hydroCHLOROthiazide 25 MG tablet Take 1 tablet (25 mg total) by mouth every morning. ??? tolterodine LA 4 MG 24 hr [...] Last attempt to quit: 1977 Years since quittin.4 ??? Smokeless tobacco: Never [...] is oriented to person, place, and time. She appears well- developed and well-nourished. She is cooperative. She does not have a sickly appearance. She does not appear ill. No distress. HENT: Head: Normocephalic and atraumatic. Right Ear: Hearing and external ear normal. Left Ear: Hearing and external ear normal. Nose: Nose normal. Mouth/Throat: Oropharynx is clear and moist and mucous membranes are normal. Eyes: Pupils are equal, round, and reactive to light. Conjunctivae, EOM and lids are normal. Neck: Trachea normal, normal range of motion, full passive range of motion without pain and phonation normal. Neck supple. Normal carotid pulses present. Carotid bruit is not present. No tracheal deviation present. No thyroid mass and no thyromegaly present. Cardiovascular: Normal rate, regular rhythm, normal heart sounds and intact distal pulses. Exam reveals no gallop and no friction rub. No murmur heard. Pulmonary/Chest: Effort normal and breath sounds normal. No accessory muscle usage. No respiratory distress. She has no decreased breath sounds. She has no wheezes. She has no rhonchi. She has no rales. Abdominal: Soft. Bowel sounds are normal. She exhibits no distension, no abdominal bruit, no pulsatile midline mass and no mass. There is no tenderness. There is no rebound and no guarding. Musculoskeletal: Normal range of motion. She exhibits no tenderness or deformity. Right lower leg: She exhibits no swelling and no edema. Left lower leg: She exhibits no swelling and no edema. Lymphadenopathy: She has no cervical adenopathy. Neurological: She is alert and oriented to person, place, and time. She has normal reflexes. No cranial nerve deficit. Coordination and gait normal. Skin: Skin is warm, dry and intact. No rash noted. No erythema. Psychiatric: She has a normal mood and affect. Her speech is normal and behavior is normal. Judgment and thought content normal. Cognition and memory are normal. Nursing note and vitals reviewed. Filed Vitals: 03/11/20 1048 BP: 133/43 Pulse: 63 Resp: 18 Temp: 98.1 ??F (36.7 ??C) SpO2: 99% Weight: 116.6 kg (257 lb) Height: 4' 11 (1.499 m) Diagnoses/Impression: 1. Essential hypertension lisinopril 40 MG tablet 2. Bilateral lower extremity edema furosemide 20 MG tablet potassium chloride CR 10 MEQ tablet Recommendations and Plan: 1. Essential hypertension - lisinopril 40 MG tablet; Take 1 tablet (40 mg total) by mouth daily. Dispense: 90 tablet; Refill:1 2. Bilateral lower extremity edema - furosemide 20 MG tablet; Take one tablet once daily for 3 days Dispense: 90 tablet; Refill: 1 - potassium chloride CR 10 MEQ tablet; Take one tablet by mouth once daily Dispense: 90 tablet; Refill: 1 - decrease furosemide to 20 mg daily and start taking 10 meq potassium daily. - continue lisinopril and advised to check blood pressure daily and keep record of her readings. -advised to call for any side effects from these medications such as increased fatigue, weakness, faintness or dizziness. - 1 week f/u Or sooner if needed Orders Placed This Encounter ??? lisinopril 40 MG tablet ??? furosemide 20 MG tablet ??? potassium chloride CR 10 MEQ tablet Cannot display discharge medications since this is not an admission. PCP: QUETA ZAYAS 03/13/2020 documented in this encounter Plan of Treatment Upcoming Encounters Date Type Department Care Team (Late st Contact Info) Description 10/09/2024 9:30 AM CONSTRUCTION DRIVER Office Visit [facility] [phone] Carlos Farris MD [facility] [address] [place] [address] 11/02/2024 10:20 AM CONSTRUCTION DRIVER Office Visit [facility] Family & Internal Medicine - [address] [phone] Sami Liriano DO [address] [place] [place] [address] documented as of this encounter Visit Diagnoses Diagnosis Essential hypertension Unspecified essential hypertension Bilateral lower extremity edema Edema documented in this encounter Additional Health Concerns Assessment Noted Time PHQ-9 Depression Total Score: 0 10/29/19 20 11:04 AM CONSTRUCTION DRIVER documented as of this encounter Care Teams Clipper Machine Operator Relationship Specialty Start Date End Date Sami Liriano DO [address] [place] [address] PCP - General FAMILY PRACTICE 12/24/19 documented as of this encounter
--- OUTSIDE RECORDS SUMMARY | 2024-09-19 12:28 | XMS_ITS | Encounter Summary ---
Author Organization [facility] Address [address] [place] [address]. [place], [place] [address] [place] [address] Care Team Providers Care Cell Pourer Name Role Phone Sami Liriano Primary Care Provider + Reason for Visit * Reason Comments Edema 1 week f/u Encounter Details Date Type Department Care Team (Late st Contact Info) Description 03/18/2020 10:20 AM CDT Office Visit [facility] Family & Internal Medicine [address] [place] [address] Barb Sexton APNP [facility] [place], [place] [phone] Edema (1 week f/u) Social History Tobacco Use Types Packs/Day Years Used Date Smoking Tobacco: Former Cigarettes 1 08 30 [id number] Smokeless Tobacco: Never Alcohol Use Standard Drinks/Week [...] file 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 Gender Identity Female 12/18/2021 6:31 AM CDT [...] Sign Reading Time Taken Comments Blood Pressure 176/66 03/18/2020 11:01 AM CDT Pulse 73 03/18/2020 10:49 AM CDT Temperature 36.8 ??C (98.3 ??F) 03/18/2020 10:49 AM C DT Respiratory Rate 16 03/18/2020 10:49 AM CDT Oxygen Saturation 98% 03/18/2020 10:49 AM CDT Inhaled Oxygen Concentration - - Weight 116.1 kg (256 lb) 03/18/2020 10:49 AM CDT Height 149.9 cm (4' 11 ) 03/18/2020 10:49 AM CDT Body Mass Index 51.71 03/18/2020 10:49 AM CDT documented in this encounter Progress Notes * JENNIFER Davila - 03/18/2020 10:20 AM CDT Images from the original note were not included. [facility] FAMILY AND INTERNAL MEDICINE OFFICE VISIT Reason for Visit: Edema (1 week f/u) History of Present Illness: Pt here today for follow of elevated blood pressure and lower extremity edema. Pt states she is feeling much better and lower extremity edema seems to continue to improve, through, not completely resolved. She continues to be on lasix (was decreased from 40 mg to 20 mg once daily and potassium was added). She notes she was having some dizziness last week---this has since resolved. Her BP remains elevated and she states she has taken her BP meds this morning. She denies any CP, SOB, MACHUCA, dizziness, heart palpitations. She is tolerating her meds well and denies any bothersome side effects. ROS: Review of Systems Constitutional: Negative for chills, fever and malaise/fatigue. Respiratory: Negative for cough and shortness of breath. Cardiovascular: Negative for chest pain and palpitations. Gastrointestinal: Negative for abdominal pain and vomiting. Genitourinary: Negative for dysuria and urgency. Musculoskeletal: Negative for myalgias. Neurological: Negative for dizziness and headaches. Medications: Current Outpatient Medications: ??? metoprolol succinate ER 50 MG 24 hr tablet, Take 1 tablet (50 mg total) by mouth daily., Disp: 30 tablet, Rfl: 1 ??? acetaminophen 325 MG tablet, Take 325 [...] daily., Disp: 90 tablet, Rfl: 1 ??? omeprazole 20 MG [...] file Gets together: Not on file Attends confucianist service: Not on file Active member of [...] rate, regular rhythm and normal heart sounds. No murmur heard. 1-2+ pitting edema of lower legs. Feet 1+ pitting edema. Pulmonary/Chest: Effort normal and breath sounds normal. No stridor. No respiratory distress. She has no wheezes. She has no rales. Musculoskeletal: Normal range of motion. She exhibits no deformity. Neurological: She is alert and oriented to person, place, and time. Gait normal. Skin: Skin is warm and dry. No rash noted. No erythema. No pallor. Psychiatric: Mood and affect normal. Nursing note and vitals reviewed. Filed Vitals: 03/18/20 1049 03/18/20 1101 BP: (!) 168/87 (!) 176/66 Pulse: 73 Resp: 16 Temp: 98.3 ??F (36.8 ??C) SpO2: 98% Weight: 116.1 kg (256 lb) Height: 4' 11 (1.499 m) Labs: Labs Reviewed Diagnoses/Impression: 1. Essential hypertension BASIC METABOLIC PANEL TSH W/REFLEX VENIPUNC ARM DRAW metoprolol succinate ER 50 MG 24 hr tablet Chronic 2. Lower extremity edema BASIC METABOLIC PANEL TSH W/REFLEX VENIPUNC ARM DRAW Recommendations and Plan: 1. Essential hypertension - BASIC METABOLIC PANEL; Future - TSH W/REFLEX; Future - VENIPUNC ARM DRAW - metoprolol succinate ER 50 MG 24 hr tablet; Take 1 tablet (50 mg total) by mouth daily. Dispense:30 tablet; Refill: 1 BP remains elevated. Metoprolol increased to 50 mg. Pt is to continue other meds as prescribed. Plan to check BMP and TSH. Will see pt back in one week. 2. Lower extremity edema - BASIC METABOLIC PANEL; Future - TSH W/REFLEX; Future - VENIPUNC ARM DRAW Improving. Will check BMP and TSH. More plan after results. Pt is to continue to avoid sodium when possible and elevate legs when sitting and wear compression stockings. ECHO has been ordered, but not scheduled. Orders Placed This Encounter ??? VENIPUNC ARM DRAW ??? BASIC METABOLIC PANEL ??? TSH W/REFLEX ??? metoprolol succinate ER 50 MG 24 hr tablet Cannot display discharge medications since this is not an admission. PCP: JENNIFER Davila 03/21/2020 documented in this encounter Plan of Treatment Upcoming Encounters Date Type Department Care Team (Late st Contact Info) Description 10/09/2024 9:30 AM ASSISTANT PROFESSOR OF GEOGRAPHY Office Visit [facility] [address] Carlos Farris MD [address] [place] [address] 11/02/2024 10:20 AM ASSISTANT PROFESSOR OF GEOGRAPHY Office Visit [facility] Family & Internal Medicine [facility] [address] [place] [address] Sami Liriano DO [address] [place] [address] documented as of this encounter Procedures Procedure Name Priority Date/Time Associated Diagnosis Comments VENIPUNC ARM DRAW Routine 03/18/2020 11:06 AM CDT Essential hypertension Lower extremity edema documented in this encounter Results * TSH W/REFLEX (03/18/2020 11:06 AM CDT) TSH 1.770 0.358 - 3.74 uIU/ML 03/18/2020 8:54 PM CDT [facility] Comment: HIGH DOSES OF BIOTIN MAY INTERFERE WITH THIS TEST RESULT. CORRELATION TO CLINICAL HISTORY AND PRESENTATION RECOMMENDED. FREE T4 NOT INDICATED 03/18/2020 11:0 6 AM CDT [facility] Final Resul t [facility] [address] [place] [address], * (ABNORMAL) BASIC METABOLIC PANEL (03/18/2020 11:06 AM CDT) GLUCOSE 118(H) 70 - 99 MG/DL 03/21/2020 4:47 PM CDT [facility] BUN 19(H) 7 - 18 MG/DL 03/21/2020 4:47 PM CDT [facility] CREATININE S/P/B 0.98 0.55 - 1.02 MG/DL 03/21/2020 4:47 PM CDT [facility] SODIUM S/P/B 139 136 - 145 MMOL/L 03/21/2020 4:47 PM CDT [facility] POTASSIUM S/P/B 4.5 3.5 - 5.1 MMOL/L 03/21/2020 4:47 PM CDT [facility] CHLORIDE S/P/B 106 100 - 108 MMOL/L 03/21/2020 4:47 PM CDT [facility] CO2 26.7 21 - 32 MMOL/L 03/21/2020 4:47 PM CDT [facility] CALCIUM S/P/B 9.2 8.5 - 10.1 MG/DL 03/21/2020 4:47 PM CDT [facility] ANION GAP 6.3 5 - 15 MMOL/L 03/21/2020 4:47 PM CDT [facility] BUN CREATININE RATIO 19.4 6 - 26 03/21/2020 4:47 PM CDT [facility] EGFR NON-AFR. AMER. 60(L) >90 ML/MIN/1.7 3 M2 03/21/2020 4:47 PM CDT [facility] EGFR AFR. AMER. 69(L) >90 ML/MIN/1.7 3 M2 03/21/2020 4:47 PM CDT [facility] Comment: NOTE: eGFR is not calculated for patients <18 years of age. This is an estimated GFR (CKD EPI) and should not be used for calculating drug doses. 03/18/2020 11:0 6 AM CDT us [facility] Final Resul t [facility] [address] [place] [address], [place] [phone] documented in this encounter Visit Diagnoses Diagnosis Essential hypertension- Primary Unspecified essential hypertension Lower extremity edema Edema documented in this encounter Additional Health Concerns Assessment Noted Time PHQ-9 Depression Total Score: 0 10/29/19 20 11:04 AM ASSISTANT PROFESSOR OF GEOGRAPHY documented as of this encounter Care Teams Cell Pourer Relationship Specialty Start Date End Date Sami Liriano DO [address] [place] [address] PCP - General FAMILY PRACTICE 12/24/19 documented as of this encounter
--- OUTSIDE RECORDS SUMMARY | 2024-09-19 12:28 | XMS_ITS | Encounter Summary ---
Author Organization [facility] Address [address] [place] [address]. 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 Gender Identity Female 12/18/2021 6:31 AM CDT [...] st Contact Info) Description 10/09/2024 9:30 AM DISINTEGRATOR FEEDER Office Visit [facility] [address] Carlos Farris MD [facility] [address] [place] [address] 11/02/2024 10:20 AM DISINTEGRATOR FEEDER Office Visit [facility] Family & Internal Medicine - [address] [address] Sami Liriano DO [address] [place] [address] documented as of this encounter Visit Diagnoses Not on filedocumented in this encounter Additional Health Concerns Assessment Noted Time PHQ-9 Depression Total Score: 0 10/29/19 20 11:04 AM DISINTEGRATOR FEEDER documented as of this encounter Care Teams Property Valuer Relationship Specialty Start Date End Date Sami Liriano DO [address] [place] [address] PCP - General FAMILY PRACTICE 12/24/19 documented as of this encounter
--- OUTSIDE RECORDS SUMMARY | 2024-09-19 12:28 | XMS_ITS | Encounter Summary ---
Author Organization [facility] Address [address] [place] [address]. [place], [place] [address] [place] [address] Care Team Providers Care Financial Coach Name Role Phone Sami Liriano DO Primary Care Provider + Reason for Visit * Reason Onset Date Comments Medication Problem 03/11/2020 Encounter Details Date Type Department Care Team (Late st Contact Info) Description 03/11/2020 Telephone [facility] Family & Internal Medicine [facility] [address] [place] [address] Sami Liriano DO Formerly named [facility] [place] [address] Medication Problem Social History Tobacco Use Types Packs/Day [...] on file Legal Sex Female 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 No / Unsure 03/11/2020 10:37 AM CDT documented as of this encounter Progress Notes * Leanna Bean RN - 03/11/2020 2:08 PM CDT Spoke to patient; verbalized understanding. * QUETA Houser - 03/11/2020 12:18 PM CDT Furosemide is daily Okay for potassium * Selena Espinosa - 03/11/2020 12:[address] [facility] calling, 1. They are showing an interaction with potassium and tolterodine. Ok to rx potassium? 2. With furosemide, sig says 1 tab daily for 3 days but qty is 90. Do we need to change sig to oncedaily or only give qty of 3? documented in this encounter Plan of Treatment Upcoming Encounters Date Type Department Care Team (Late st Contact Info) Description 10/09/2024 9:30 AM COIN MACHINE COLLECTOR SUPERVISOR Office Visit [facility]-[address] [phone] Carlos Farris MD [address] [facility] [address] [facility] [place] [address] 11/02/2024 10:20 AM COIN MACHINE COLLECTOR SUPERVISOR Office Visit [facility] Family & Internal Medicine - [address] [address] Sami Liriano, [address] [place] [address] documented as of this encounter Visit Diagnoses Not on filedocumented in this encounter Additional Health Concerns Assessment Noted Time PHQ-9 Depression Total Score: 0 10/29/19 20 11:04 AM COIN MACHINE COLLECTOR SUPERVISOR documented as of this encounter Care Teams Financial Coach Relationship Specialty Start Date End Date Sami Liriano DO [address] [place] [address] PCP - General FAMILY PRACTICE 12/24/19 documented as of this encounter
--- OUTSIDE RECORDS SUMMARY | 2024-09-19 12:28 | XMS_ITS | Encounter Summary ---
Author Organization [facility] Address [facility]. [place], [place] [address] [place] [address] Care Team Providers Care Motorboat Mechanic Inboard Name Role Phone Sami Gimenez DO Primary Care Provider + Reason for Referral * Consultation/Treatment (Urgent) - Closed Specialty Diagnoses / Procedures Referred By Shereen benton Referred To Contact OPHTHALMOLOGY Diagnoses Floaters in visual field Sami Gimenez DO [address] [place] [address] Phone: tel: fax: Referral ID Status Reason Start Date Expiration Date V isits Requested Visits Authorized [id number] Closed Specialty Services 03/07/2020 03/06/2021 4 4 Scheduling Instructions Patient is scheduled with Dr Fanny Monterroso at [facility] [place] [facility] at 2:40 Reason for Visit * Reason Onset Date Comments Referral 03/10/2020 Encounter Details Date Type Department Care Team (Late st Contact Info) Description 03/10/2020 Telephone [facility] Family & Internal Medicine [facility] [address] [place] [address] Sami Gimenez DO [address] [place] [address] Referral Social History Tobacco Use Types Packs/Day Years Used Date Smoking Tobacco: Former Cigarettes 1 08 30 965 1976 Smokeless Tobacco: Never Alcohol Use Standard [...] on file 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 No / Unsure 03/07/2020 11:45 AM CDT documented as of this encounter Progress Notes * Radha Oglesby MA - 03/10/2020 1:01 PM CDT The patient called for a referral to the following physician: Is this a new consult:No 's name: Fanny Mcgee Specialty: Opthomology Reason for referral (diagnosis): floaters [facility] [place] [phone] appt at 12:40 today Last office visit at this office: Last visit with SAMI GIMENEZ in FAMILY PRACTICE was on: 10/29/[address] [facility] Future appointment scheduled: Future Appointments Date Time Provider Department Center 03/11/2020 10:40 AM QUETA Houser [facility]MRVL [facility] 03/15/2020 3:00 PM HALIMA ECHO 1 SEONOIV [facility] HALIMA documented in this encounter Plan of Treatment Upcoming Encounters Date Type Department Care Team (Late st Contact Info) Description 10/09/2024 9:30 AM REAL ESTATE BRANCH MANAGER Office Visit [facility] [phone] Carlos Farris MD [address] [facility] [address] [place] [address] 11/02/2024 10:20 AM REAL ESTATE BRANCH MANAGER Office Visit [facility] Family & Internal Medicine [address] [address] Sami Gimenez DO [address] [place] [address] Scheduled Referrals Name Type Priority Associated Diagnoses Orde r Schedule Ambulatory Referral to Ophthalmology Referral Routine Floaters in visual field Ordered: 03/10/2020 documented as of this encounter Visit Diagnoses Diagnosis Floaters in visual field- Primary documented in this encounter Additional Health Concerns Assessment Noted Time PHQ-9 Depression Total Score: 0 10/29/19 20 11:04 AM REAL ESTATE BRANCH MANAGER documented as of this encounter Care Teams Motorboat Mechanic Inboard Relationship Specialty Start Date End Date Sami Gimenez DO [address] [place] [address] PCP - General FAMILY PRACTICE 12/24/19 documented as of this encounter
--- OUTSIDE RECORDS SUMMARY | 2024-09-19 12:28 | XMS_ITS | Encounter Summary ---
Author Organization [facility] Address [facility] [place], [place] [address] [place] [address] Care Team Providers Care Skin Diver Name Role Phone Sami Liriano Primary Care Provider + Encounter Details Date Type Department Care Team (Late st Contact Info) Description 03/15/2020 [facility] [address] [place], [place] [phone] Michel Shelby MD [facility]. 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 Gender Identity Female 12/18/2021 6:31 AM [...] st Contact Info) Description 10/09/2024 9:30 AM PAPER GRADER Office Visit [facility]-[address] [phone] Carlos Farris MD [address] [facility] [address] [place] [address] 11/02/2024 10:20 AM PAPER GRADER Office Visit [facility] Family & Internal Medicine - [address] [address] Sami Liriano DO [address] [place] [address] documented as of this encounter Visit Diagnoses Not on filedocumented in this encounter Additional Health Concerns Assessment Noted Time PHQ-9 Depression Total Score: 0 10/29/19 20 11:04 AM PAPER GRADER documented as of this encounter Care Teams Skin Diver Relationship Specialty Start Date End Date Sami Liriano DO [address] [place] [address] PCP - General FAMILY PRACTICE 12/24/19 documented as of this encounter
--- OUTSIDE RECORDS SUMMARY | 2024-09-19 12:28 | XMS_ITS | Encounter Summary ---
Author Organization [facility] Address [address] [place] [address]. [place], [place] [address] [place] [address] Care Team Providers Care Chassis Engineer Name Role Phone Sami Liriano Primary Care Provider + Encounter Details Date Type Department Care Team (Latest Contact Info) Description 03/11/2020 Travel Social History Tobacco Use Types Packs/Day [...] file Legal Sex Female 12:43 PM BUSINESS EMPLOYMENT SPECIALIST Gender Identity Female 12/18/2021 6:31 AM [...] Contact Info) Description 10/09/2024 9:30 AM BUSINESS EMPLOYMENT SPECIALIST Office Visit [facility]-[address] [phone] Carlos Farris MD [facility] [address] [place] [address] 11/02/2024 10:20 AM BUSINESS EMPLOYMENT SPECIALIST Office Visit [facility] Family & Internal Medicine - [address] [address] Sami Liriano DO [address] [place] [address] documented as of this encounter Visit Diagnoses Not on filedocumented in this encounter Additional Health Concerns Assessment Noted Time PHQ-9 Depression Total Score: 0 10/29/19 20 11:04 AM BUSINESS EMPLOYMENT SPECIALIST documented as of this encounter Care Teams Chassis Engineer Relationship Specialty Start Date End Date Sami Liriano DO [address] [place] [address] PCP - General FAMILY PRACTICE 12/24/19 documented as of this encounter
--- OUTSIDE RECORDS SUMMARY | 2024-09-19 12:28 | XMS_ITS | Encounter Summary ---
Author Organization [facility] Address [facility]. [place], [place] [address] [place] [address] Care Team Providers Care Classifier Name Role Phone Sami Liriano DO Primary Care Provider + Reason for Referral * Consultation (Urgent) - Closed Specialty Diagnoses / Procedures Referred By Shereen t Referred To Contact CARDIOLOGY / Cardiology Diagnoses Essential hypertension Sami Liriano DO [address] [place] [address] Phone: tel: fax: Erik Bowling MD [address] [place] [phone] Phone: tel: fax: Referral ID Status Reason Start Date Expiration Date V isits Requested Visits Authorized [id number] Closed Specialty Services 04/11/2020 10/14/2020 6 6 Reason for Visit * Reason Onset Date Comments Referral Request 03/14/2020 Encounter Details Date Type Department Care Team (Late st Contact Info) Description 03/14/2020 Telephone [facility] Family & Internal Medicine [facility] [address] [place] [address] Sami Liriano DO [address] [place] [address] Referral Request Social History Tobacco Use Types Packs/Day Years Used Date Smoking Tobacco: Former Cigarettes 1 12 1976 Smokeless Tobacco: Never Alcohol Use Standard Drinks/Week Comments Yes 0 (1 standard drink = 0.6 oz pur e alcohol) AUDIT-C Answer Date Recorded Frequency of Alcohol Consumption 2-3 times a mary lou grace 10/29/2019 Average Number of Drinks 1 or 2 020 Frequency of Binge Drinking Never 10/02 PHQ-2 Answer Date Recorded PHQ-2 Score 0 10/29/2019 Comments No Sex and Gender Information Value Date Recorded Sex Assigned at Not on file Legal Sex Female 12:43 PM GROUP WORKER Gender Identity Female 12/18/2021 6:31 AM CDT Sexual Orientation Straight 01/15/2022 6: 11 AM CDT COVID-19 Exposure Response Date Recorded In the last month, have you been in contact with someone who was confirmed or suspected to have Coronavirus / COVID-19? No / Unsure 03/11/2020 10:37 AM CDT documented as of this encounter Progress Notes * Poppy Alas - 03/14/2020 2:03 PM CDT Pt needs an urgent referral for dr. Hernandez cardiology for appt tomorrow. A nurse over there sent an in-basket message to us somehow but I don't see it so she thought it was being worked on. documented in this encounter Plan of Treatment Upcoming Encounters Date Type Department Care Team (Late st Contact Info) Description 10/09/2024 9:30 AM GROUP WORKER Office Visit [facility]-[address] [address] Carlos Farris MD [facility] [address] [place] [address] 11/02/2024 10:20 AM GROUP WORKER Office Visit [facility] Family & Internal Medicine - [address] [address] Sami Liriano DO [address] [place] [address] Scheduled Referrals Name Type Priority Associated Diagnoses Orde r Schedule Ambulatory referral to Cardiology, Adult (OTHER) Referral Routine Essential hypertension Ordered: 03/14/2020 documented as of this encounter Visit Diagnoses Diagnosis Essential hypertension- Primary Unspecified essential hypertension documented in this encounter Additional Health Concerns Assessment Noted Time PHQ-9 Depression Total Score: 0 10/29/19 20 11:04 AM GROUP WORKER documented as of this encounter Care Teams Classifier Relationship Specialty Start Date End Date Sami Liriano DO [address] [place] [address] PCP - General FAMILY PRACTICE 12/24/19 documented as of this encounter
--- OUTSIDE RECORDS SUMMARY | 2024-09-19 12:29 | XMS_ITS | Encounter Summary ---
Author Organization [facility] Address Formerly [facility]. [place], [place] [address] [place] [address] Care Team Providers Care Ticket Dispenser Changer Name Role Phone Sami Liriano DO Primary Care Provider + Reason for Referral * Imaging (Emergency) - Closed Specialty Diagnoses / Procedures Referred By Shereen benton Referred To Contact RADIOLOGY Diagnoses Bilateral lower extremity edema Procedures USV COLETTE DUPLEX LOW EXT HAN Babr Sexton APNP [address] [place] [address] Phone: tel: fax: [address] [address] Phone: tel: fax: Referral ID Status Reason Start Date Expiration Date Visits Re quested Visits Authorized [id number] Closed 03/07/2020 04/06/2021 1 1 Reason for Visit * Reason Comments Hypertension Encounter Details Date Type Department Care Team (Late st Contact Info) Description 03/07/2020 11:40 AM CDT Office Visit [facility] Family & Internal Medicine - [place] [address] [place] [address] Barb Sexton APNP [address] [place] [address] Hypertension Social History Tobacco Use Types Packs/Day Years Used Date Smoking Tobacco: Former Cigarettes 1 12 322 - 3538 Smokeless Tobacco: Never Alcohol Use Standard Drinks/Week [...] on file 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 Gender Identity Female 12/18/2021 6:31 AM [...] Sign Reading Time Taken Comments Blood Pressure 191/82 03/07/2020 12:34 PM CDT Pulse 88 03/07/2020 11:48 AM CDT Temperature 36.8 ??C (98.2 ??F) 03/07/2020 11:48 AM C DT Respiratory Rate 16 03/07/2020 11:48 AM CDT Oxygen Saturation 100% 03/07/2020 11:48 AM CDT Inhaled Oxygen Concentration - - Weight 114.8 kg (253 lb) 03/07/2020 11:48 AM CDT Height 149.9 cm (4' 11 ) 03/07/2020 11:48 AM CDT Body Mass Index 51.1 03/07/2020 11:48 AM CDT documented in this encounter Progress Notes * Sumaya Huddleston MA - 03/07/2020 11:40 AM CDTAddended by: SUMAYA HUDDLESTON on: 03/07/2020 04:08 PM Modules accepted: Orders * JENNIFER Davila - 03/07/2020 11:40 AM CDT Images from the original note were not included. [facility] OFFICE VISIT Reason for Visit: Hypertension History of Present Illness: 65 yo female with PMH of GERD, HTN and depression is here today for follow up of her lower extremity edema. Pt was evaluated last week with c/o generalized swelling, her lower extremities being worse. She was started on furosemide and her HCTZ was increased to 25 mg once daily. Her BP remains elevated and according to pt, she did take he meds as prescribed this morning. She notes some of the swelling in her hands has resolved but her lower extremity edema is still there. We did an EKG at her last visit with me which for the most part unremarkable. She still has bilateral lower extremity pain, swelling and some mild SOB. ROS: Review of Systems Constitutional: Negative for chills, fever and malaise/fatigue. HENT: Negative for congestion. Respiratory: Positive for shortness of breath. Negative for cough, hemoptysis, sputum production and wheezing. Cardiovascular: Negative for chest pain and palpitations. [...] mouth daily., Disp: , Rfl: ??? furosemide 40 MG tablet, Take one tablet once daily for 3 days, Disp: 3 tablet, Rfl: 0 ??? hydroCHLOROthiazide 25 MG tablet, Take 1 tablet (25 mg total) by mouth every morning., Disp: 30tablet, Rfl: 1 ??? LISINOPRIL 40 MG tablet, TAKE 1 TABLET BY MOUTH EVERY DAY, Disp: 90 tablet, Rfl: 0 ??? metoprolol succinate ER 25 MG 24 hr tablet, Take 1 tablet (25 mg total) by mouth daily., Disp: 30 tablet, Rfl: 1 ??? omeprazole 20 MG capsule, TAKE 1 CAPSULE BY MOUTH EVERY DAY BEFORE A MEAL, Disp: , Rfl: ??? potassium chloride CR 20 MEQ tablet, Take one tablet by mouth once daily, Disp: 15 tablet, Rfl:0 ??? tolterodine LA 4 MG 24 hr [...] file Gets together: Not on file Attends gnosticism service: Not on file Active member of [...] and normal heart sounds. No murmur heard. Pulmonary/Chest: Effort normal and breath sounds normal. No stridor. No respiratory distress. She has no wheezes. She has no rales. Musculoskeletal: Normal range of motion. She exhibits no deformity. Neurological: She is alert and oriented to person, place, and time. Gait normal. Skin: Skin is warm and dry. No rash noted. No erythema. No pallor. Bilateral 2 + lower extremity edema. Warmth and tenderness with palpation of both lower extremities Tenderness of both lower legs around achilles with passive flexion of her ankles Psychiatric: Mood and affect normal. Nursing note and vitals reviewed. Filed Vitals: 03/07/20 1148 03/07/20 1234 BP: (!) 170/89 (!) 191/82 Pulse: 88 Resp: 16 Temp: 98.2 ??F (36.8 ??C) SpO2: 100% Weight: 114.8 kg (253 lb) Height: 4' 11 (1.499 m) Labs: Labs Reviewed Diagnoses/Impression: 1. Bilateral lower extremity edema USV COLETTE DUPLEX LOW EXT HAN furosemide 40 MG tablet potassium chloride CR 20 MEQ tablet 2. Essential hypertension metoprolol succinate ER 25 MG 24 hr tablet DISCONTINUED: metoprolol succinate ER 25 MG 24 hr tablet Chronic 3. SOB (shortness of breath) XR CHEST PA+LAT Recommendations and Plan: 1. Bilateral lower extremity edema - USV COLETTE DUPLEX LOW EXT HAN; Future - USV COLETTE DUPLEX LOW EXT HAN - furosemide 40 MG tablet; Take one tablet once daily for 3 days Dispense: 3 tablet; Refill: 0 Will check venous doppler to rule out DVT due to recent extended car ride. More plan after results if needed. 2. Essential hypertension - metoprolol succinate ER 25 MG 24 hr tablet; Take 1 tablet (25 mg total) by mouth daily. Dispense:30 tablet; Refill: 1 Awaiting ECHO scheduling and CXR results. Pt started on metoprolol for BP control. Danger signs discussed with pt and she is to go to ER if develops these. Would like for pt to follow up in 3 days. Orders Placed This Encounter ??? XR CHEST PA+LAT ??? USV COLETTE DUPLEX LOW EXT HAN ??? furosemide 40 MG tablet ??? DISCONTD: metoprolol succinate ER 25 MG 24 hr tablet ??? potassium chloride CR 20 MEQ tablet ??? metoprolol succinate ER 25 MG 24 hr tablet Cannot display discharge medications since this is not an admission. PCP: JENNIFER Davila 03/07/2020 documented in this encounter Plan of Treatment Upcoming Encounters Date Type Department Care Team (Late st Contact Info) Description 10/09/2024 9:30 AM SPRING ASSEMBLER Office Visit [facility] [phone] Carlos Farris MD [facility] [address] [place] [address] 11/02/2024 10:20 AM SPRING ASSEMBLER Office Visit [facility] Family & Internal Medicine - [address] [phone] Sami Liriano DO [address] [place] [address] documented as of this encounter Procedures Procedure Name Priority Date/Time Associated Diagnosis Comments USV COLETTE DUPLEX LOW EXT HAN STAT 03/07/2020 Bilateral lower extremity edema documented in this encounter Results * USV COLETTE DUPLEX LOW EXT HAN (03/07/2020) Anatomical Region Laterality Modality Extremity Vascular Ultraso und 03/07/2020 us Barb Sexton APNP US VASC Final Resul t documented in this encounter Visit Diagnoses Diagnosis Bilateral lower extremity edema- Primary Edema Essential hypertension Unspecified essential hypertension SOB (shortness of breath) Shortness of breath documented in this encounter Additional Health Concerns Assessment Noted Time PHQ-9 Depression Total Score: 0 10/29/19 20 11:04 AM SPRING ASSEMBLER documented as of this encounter Care Teams Ticket Dispenser Changer Relationship Specialty Start Date End Date Sami Liriano DO [address] [place] [address] PCP - General FAMILY PRACTICE 12/24/19 documented as of this encounter
--- OUTSIDE RECORDS SUMMARY | 2024-09-19 12:29 | XMS_ITS | Encounter Summary ---
Author Organization [facility] Address [address] [place] [address]. [place], [place] [phone] [place] [address] Care Team Providers Care Litigation Assistant Name Role Phone Sami Liriano DO Primary Care Provider + Reason for Visit * Reason Onset Date Comments Orders 03/07/2020 Encounter Details Date Type Department Care Team (Late st Contact Info) Description 03/07/2020 Telephone [facility] Family & Internal Medicine [facility] [address] [place] [address] Sami Liriano DO [facility] [place] [address] Orders Social History Tobacco Use Types [...] file Legal Sex Female 12:43 PM BUSINESS INTELLIGENCE ENGINEER Gender Identity Female 12/18/2021 6:31 AM CDT Sexual Orientation Straight 01/15/2022 6: 11 AM CDT COVID-19 Exposure Response Date Recorded In the last month, have you been in contact with someone who was confirmed or suspected to have Coronavirus / COVID-19? No / Unsure 03/07/2020 11:45 AM CDT documented as of this encounter Progress Notes * Sumaya Ro MA - 03/08/2020 2:59 PM CDT Spoke with pt and informed XR results WNL. * Sumaya Ro MA - 03/07/2020 2:50 PM CDT Charles called to report venous doppler neg for DVT. I was able to talk to the pt and inform her of this as well as the info below. Pt is going to have XR at [facility] as she is already there. Order faxed. * Sumaya Ro MA - 03/07/2020 2:12 PM CDT Cancelled metoprolol rx per Barb she is still thinking about this and I have ordered a CXR. Pt canhave this done at [facility] or here. I tried to call pt to inform of this but pt's VM was not set up. 03/07/20 documented in this encounter Plan of Treatment Upcoming Encounters Date Type Department Care Team (Late st Contact Info) Description 10/09/2024 9:30 AM BUSINESS INTELLIGENCE ENGINEER Office Visit [facility] [phone] [facility] [address] [place] [address] 11/02/2024 10:20 AM BUSINESS INTELLIGENCE ENGINEER Office Visit [facility] Family & Internal Medicine - [address] [phone] Sami Liriano DO [address] [place] [address] documented as of this encounter Visit Diagnoses Not on filedocumented in this encounter Additional Health Concerns Assessment Noted Time PHQ-9 Depression Total Score: 0 10/29/19 20 11:04 AM BUSINESS INTELLIGENCE ENGINEER documented as of this encounter Care Teams Litigation Assistant Relationship Specialty Start Date End Date Sami Liriano DO [address] [place] [address] PCP - General FAMILY PRACTICE 12/24/19 documented as of this encounter
--- OUTSIDE RECORDS SUMMARY | 2024-09-19 12:29 | XMS_ITS | Encounter Summary ---
Author Organization [facility] Address [address] [place] [address]. [place], [place] [address] [place] [address] Care Team Providers Care Supervisor Mold Construction Name Role Phone Sami Liriano Primary Care Provider + Encounter Details Date Type Department Care Team (Latest Contact Info) Description 03/07/2020 Travel Social History Tobacco Use Types Packs/Day [...] on file Legal Sex Female 12:43 PM NETEZZA DEVELOPER Gender Identity Female 12/18/2021 6:31 AM [...] st Contact Info) Description 10/09/2024 9:30 AM NETEZZA DEVELOPER Office Visit [facility] [phone] Carlos Farris MD [facility] [address] [place] [address] 11/02/2024 10:20 AM NETEZZA DEVELOPER Office Visit [facility] Family & Internal Medicine - [address] [phone] Sami Liriano DO [address] [place] [address] documented as of this encounter Visit Diagnoses Not on filedocumented in this encounter Additional Health Concerns Assessment Noted Time PHQ-9 Depression Total Score: 0 10/29/19 20 11:04 AM NETEZZA DEVELOPER documented as of this encounter Care Teams Supervisor Mold Construction Relationship Specialty Start Date End Date Sami Liriano DO [address] [place] [address] PCP - General FAMILY PRACTICE 12/24/19 documented as of this encounter
--- OUTSIDE RECORDS SUMMARY | 2024-09-19 12:29 | XMS_ITS | Encounter Summary ---
Author Organization [facility] Address [address] [place] [address]. [place], [place] [address] [place] [address] Care Team Providers Care Store Merchandiser Name Role Phone Sami Liriano Primary Care Provider + Reason for Visit * Reason Comments Image (SCAN) Encounter Details Date Type Department Care Team (Latest Contact Info) Description 03/07/2020 Scan HEALTH INFO SRVCS Scanned, Documents Image [...] on file Legal Sex Female 12:43 PM SLAT PICKLER Gender Identity Female 12/18/2021 6:31 AM CDT [...] st Contact Info) Description 10/09/2024 9:30 AM SLAT PICKLER Office Visit [facility] [address] [place] [address] Carlos Farris MD [facility] [address] [place] [address] 11/02/2024 10:20 AM SLAT PICKLER Office Visit [facility] Family & Internal Medicine - [address] [phone] Sami Liriano DO [address] [place] [address] documented as of this encounter Procedures Procedure Name Priority Date/Time Associated Diagnosis Comments IMAGE GENERIC 03/07/2020 documented in this encounter Results * IMAGE GENERIC (03/07/2020) Anatomical Region Laterality Modality Other 03/07/2020 Narrative 03/07/2020 Ordered by an unspecified provider. us Documents Scanned SCANNING Final Result documented in this encounter Visit Diagnoses Not on filedocumented in this encounter Additional Health Concerns Assessment Noted Time PHQ-9 Depression Total Score: 0 10/29/19 20 11:04 AM SLAT PICKLER documented as of this encounter Care Teams Store Merchandiser Relationship Specialty Start Date End Date Sami Liriano DO [address] [place] [address] PCP - General FAMILY PRACTICE 12/24/19 documented as of this encounter
--- OUTSIDE RECORDS SUMMARY | 2024-09-19 12:29 | XMS_ITS | Encounter Summary ---
Author Organization [facility] Address [address] [place] [address]. [place], [place] [address] [place] [address] Care Team Providers Care Billing And Insurance Coordinator Name Role Phone Sami Liriano Primary Care Provider + Reason for Visit * Reason Onset Date Comments Appointment Request 03/03/2020 PROCEDURE - ECHO Encounter Details Date Type Department Care Team (Late st Contact Info) Description 03/03/2020 Telephone [facility] [address] Brooke Acosta, TAN Appointment Request (PROCEDURE - ECHO) Social History Tobacco Use Types Packs/Day Years [...] on file Legal Sex Female 12:43 PM FUR FEEDER Gender Identity Female 12/18/2021 6:31 AM CDT Sexual Orientation Straight 01/15/2022 6: 11 AM CDT COVID-19 Exposure Response Date Recorded In the last month, have you been in contact with someone who was confirmed or suspected to have Coronavirus / COVID-19? No / Unsure 03/03/2020 10:11 AM CDT documented as of this encounter Progress Notes * TAN Jara - 03/03/2020 2:07 PM CDT VM not set up to leave message for echo per Dr Liriano. Will send letter to patient to contact our office for appointment. documented in this encounter Plan of Treatment Upcoming Encounters Date Type Department Care Team (Late st Contact Info) Description 10/09/2024 9:30 AM FUR FEEDER Office Visit [facility]-[address] [phone] Carlos Farris MD [facility] [address] [facility] [place] [address] 11/02/2024 10:20 AM FUR FEEDER Office Visit [facility] Family & Internal Medicine - [address] [phone] Sami Liriano DO [address] [place] [address] documented as of this encounter Visit Diagnoses Not on filedocumented in this encounter Additional Health Concerns Assessment Noted Time PHQ-9 Depression Total Score: 0 10/29/19 20 11:04 AM FUR FEEDER documented as of this encounter Care Teams Billing And Insurance Coordinator Relationship Specialty Start Date End Date Sami Liriano DO [address] [place] [address] PCP - General FAMILY PRACTICE 12/24/19 documented as of this encounter
--- OUTSIDE RECORDS SUMMARY | 2024-09-19 12:29 | XMS_ITS | Encounter Summary ---
Author Organization [facility] Address [facility]. [place], [place] [address] [place] [address] Care Team Providers Care Certified Alcohol And Drug Counselor Name Role Phone Sami Liriano Primary Care Provider + Encounter Details Date Type Department Care Team (Latest Contact Info) Description 03/03/2020 6:16 PM CDT - 03/03/2020 11:59 PM CDT Hospital Encounter [facility] [place] [address] Barb Sexton, JENNIFER [address] [place], [place] [phone] Discharge Disposition: Home or Self Care (Routine Discharge) Social History Tobacco Use Types Packs/Day Years Used Date Smoking Tobacco: Former Cigarettes 1 08 30 [id number] Smokeless Tobacco: Never Alcohol Use Standard Drinks/Week [...] on file Legal Sex Female 12:43 PM VASC TECH Gender Identity Female 12/18/2021 6:31 AM [...] daily. 08/24/2019 0 furosemide 20 MG tabletIndications: Essential hypertension,Lower extremity edema Take 1 tablet (20 mg total) by mouth daily. 3 tablet 03/03/2020 0 hydroCHLOROthiazid e 25 MG tabletIndications: Essential hypertension,Lower extremity edema Take 1 tablet (25 mg total) by mouth every morning. 30 tablet 1 03/03/2020 0 LISINOPRIL 40 MG tabletIndications: Essential hypertension TAKE 1 TABLET BY MOUTH EVERY DAY 90 tablet 01/22/2020 0 omeprazole 20 MG capsule TAKE 1 CAPSULE BY MOUTH EVERY DAY BEFORE A MEAL 08/24/2019 1 tolterodine LA 4 MG 24 hr capsule Take 4 mg by mouth daily. 09/07/2019 1 documented as of this encounter Progress Notes * JENNIFER Davila - 03/03/2020 11:59 PM CDT Will discuss at upcoming appt documented in this encounter Plan of Treatment Upcoming Encounters Date Type Department Care Team (Late st Contact Info) Description 10/09/2024 9:30 AM VASC TECH Office Visit [facility] [address] Carlos Farris MD [facility] [address] [place] [address] 11/02/2024 10:20 AM VASC TECH Office Visit [facility] Family & Internal Medicine - [place] [phone] [place] [phone] Sami Liriano, [address] [place] [address] documented as of this encounter Procedures Procedure Name Priority Date/Time Associated Diagnosis Comments URINALYSIS WI REFLEX TO CULTURE Routine 03/03/2020 11:51 AM CDT Lower extremity edema URINE BACTERIA CULTURE Routine 0 11:51 AM CDT COMPREHENSIVE METABOLIC PANEL Routine 03/03/2020 11:51 AM CDT Lower extremity edema CBC W/DIFF AUTOMATED Routine 03/03/2020 11:51 AM CDT Lower extremity edema documented in this encounter Results * CULTURE URINE (03/03/2020 11:51 AM CDT) SPEC DESCRIPTION URINE CLEAN CATCH 03/03/2020 11:35 PM CDT [facility] SPECIAL REQUESTS NO SPECIAL REQUEST 03/03/2020 11:35 PM CDT [facility] CULTURE RESULT POLYMICROBIAL GROWTH CONSISTENT WITH NORMAL GENITAL LANIE. ?? SUSCEPTIBILITIES NOT ROUTINELY PERFORMED. 03/05/2020 10:42 AM CDT [facility] URINE SPECIMEN OBTAINED BY CLEAN CATCH PROCEDURE / Unknown 03/03/2020 11:51 AM CDT 03/03/2020 11:35 PM CDT us Barb RODRIG[facility] MICROBIOLOGY - GENERAL NICK VITALE Final Result [facility] [address] [place] [address], * (ABNORMAL) COMPREHENSIVE METABOLIC PANEL (03/03/2020 11:51 AM CDT) [facility] GLUCOSE 104(H) 70 - 99 MG/DL 03/03/2020 9:39 PM CDT [facility] BUN 17 7 - 18 MG/DL 03/03/2020 9:39 PM CDT [facility] CREATININE S/P/B 0.93 0.55 - 1.02 MG/DL 03/03/2020 9:39 PM CDT [facility] SODIUM S/P/B 137 136 - 145 MMOL/L 03/03/2020 9:39 PM CDT [facility] POTASSIUM S/P/B 4.1 3.5 - 5.1 MMOL/L 03/03/2020 9:39 PM CDT [facility] CHLORIDE S/P/B 102 100 - 108 MMOL/L 03/03/2020 9:39 PM CDT [facility] CO2 27.4 21 - 32 MMOL/L 03/03/2020 9:39 PM CDT [facility] CALCIUM S/P/B 9.5 8.5 - 10.1 MG/DL 03/03/2020 9:39 PM CDT [facility] BILIRUBIN TOTAL S/P/B 1.7(H) 0.2 - 1.2 MG/DL 03/03/2020 9:39 PM CDT [facility] Comment: THIS ASSAY IS NOT RECOMMENDED FOR PATIENTS UNDERGOING TREATMENT WITH ELTROMBOPAG DUE TO THE POTENTIAL FOR FALSELY ELEVATED RESULTS. TOTAL PROTEIN S/P/B 7.9 6.4 - 8.2 G/DL 03/03/2020 9:39 PM CDT [facility] ALBUMIN S/P/B 4.1 3.4 - 5.0 G/DL 03/03/2020 9:39 PM CDT [facility] AST 18 15 - 37 U/L 03/03/2020 9:39 PM CDT [facility] ALT 24 14 - 55 U/L 03/03/2020 9:39 PM CDT [facility] ALKALINE PHOSPHATASE S/P/B 102 50 - 136 U/L 03/03/2020 9:39 PM CDT [facility] ANION GAP 7.6 5 - 15 MMOL/L 03/03/2020 9:39 PM CDT [facility] BUN CREATININE RATIO 18.2 6 - 26 03/03/2020 9:39 PM CDT [facility] A/G RATIO 1.1 1.0 - 2.0 RATIO 03/03/2020 9:39 PM CDT [facility] EGFR NON-AFR. AMER. 64(L) >90 ML/MIN/1.7 3 M2 03/03/2020 9:39 PM CDT [facility] EGFR AFR. AMER. 74(L) >90 ML/MIN/1.7 3 M2 03/03/2020 9:39 PM T [facility] Comment: NOTE: eGFR is not calculated for patients <18 years of age. This is an estimated GFR (CKD EPI) and should not be used for calculating drug doses. 03/03/2020 11:5 1 AM CDT Barb [facility] Final Resul t [facility] [address] [place] [address], [place] [phone] * (ABNORMAL) CBC W/DIFF AUTOMATED (03/03/2020 11:51 AM CDT) WBC 10.6 4.5 - 11.0 x10'3/uL 03/03/2020 9:17 PM CDT [facility] RBC 4.77 4.20 - 5.40 x10'6/uL 03/03/2020 9:17 PM CDT [facility] HGB 13.1 12.0 - 16.0 G/DL 03/03/2020 9:17 PM CDT [facility] HCT 42.3 38.0 - 48.0 % 03/03/2020 9:17 PM CDT [facility] MCV 88.7 80.0 - 94.0 FL 03/03/2020 9:17 PM CDT [facility] MCH 27.5 27.0 - 31.0 PG 03/03/2020 9:17 PM CDT [facility] MCHC 31.0(L) 32.0 - 36.0 G/DL 03/03/2020 9:17 PM CDT [facility] RDW 14.6(H) 11.5 - 14.5 % 03/03/2020 9:17 PM CDT [facility] PLT 244 130 - 400 x10'3/uL 03/03/2020 9:17 PM CDT [facility] MPV 10.7 9.3 - 12.2 FL 03/03/2020 9:17 PM CDT [facility] DIFFERENTIAL TYPE AUTOMATED DIFFERENTIAL 03/03/2020 9:17 PM CDT [facility] NEUTROPHILS % 63.9 % 03/03/2020 9:17 PM CDT [facility] LYMPHOCYTES % 26.7 % 03/03/2020 9:17 PM CDT [facility] MONOCYTES % 7.4 % 03/03/2020 9:17 PM CDT [facility] EOSINOPHILS 1.1 % 03/03/2020 9:17 PM CDT [facility] BASOPHILS 0.7 % 03/03/2020 9:17 PM CDT [facility] IMMATURE GRANS % 0.2 % 03/03/20 20 9:17 PM CDT [facility] ABS. NEUTROPHILS TOTAL 6.78 1.80 - 7.70 x10'3/uL 03/03/2020 9:17 PM CDT [facility] ABS. LYMPHOCYTES 2.83 1.00 - 4.80 x10'3/uL 03/03/2020 9:17 PM CDT [facility] ABS. MONOCYTES 0.79 0.24 - 0.86 x10'3/uL 03/03/2020 9:17 PM CDT [facility] ABS. EOSINOPHILS 0.12 0.04 - 0.36 x10'3/uL 03/03/2020 9:17 PM CDT [facility] ABS. BASOPHILS 0.07 0.01 - 0.08 x10'3/uL 03/03/2020 9:17 PM CDT [facility] ABS. IMMATURE GRANULOCYTES 0.02 0.00 - 0.49 x10'3/uL 03/03/2020 9:17 PM CDT [facility] 03/03/2020 11:5 1 AM CDT Barb [facility] Final Resul t [facility] [address] [place] [address], [place] [phone] * (ABNORMAL) URINALYSIS WI REFLEX TO CULTURE (03/03/2020 11:51 AM CDT) SPECIMEN TYPE URINE CLEAN CATCH 03/03/2020 6:17 PM CDT [facility] COLOR (U) LIGHT YELLOW 03/03/2020 11:15 PM CDT [facility] TRANSPARENCY CLEAR 03/03/2020 11:15 PM [facility] SPECIFIC GRAVITY (U) 1.014 1.001 - 1.030 03/03/2020 11:15 PM [facility] U PH 7.0 5.0 - 9.0 03/03/2020 11:15 PM [facility] LEUKOCYTES (U) 75(A) NEGATIVE 03/03/2020 11:15 PM T [facility] NITRITES NEGATIVE NEGATIVE 03/03/2020 11:15 PM [facility] PROTEIN (U) NEGATIVE <30 MG/DL 03/03/2020 11:15 PM T [facility] URINE GLUCOSE NORMAL NORMAL MG/DL 03/03/2020 11:15 PM [facility] KETONES MG/DL (U) NEGATIVE NEGATIVE MG/DL 03/03/2020 11:15 PM [facility] UROBILINOGEN NORMAL NORMAL MG/DL 03/03/2020 11:15 PM T [facility] BILIRUBIN (U) NEGATIVE NEGATIVE MG/DL 03/03/2020 11:15 PM [facility] BLOOD (U) NEGATIVE NEGATIVE 03/03/2020 11:15 PM [facility] CULTURE & SENSITIVITY INDICATED? SPECIMEN SETUP FOR CULTURE 03/03/2020 11:15 PM T [facility] MUCUS RARE /LPF 03/03/2020 11:15 PM [facility] WBC/HPF 2 <6 /HPF 03/03/2020 11:15 PM [facility] RBC/HPF <1 <6 /HPF 03/03/2020 11:15 PM [facility] SQUAMOUS EPITHELIALS RARE /HPF 03/03/2020 11:15 PM T [facility] URINE SPECIMEN OBTAINED BY CLEAN CATCH PROCEDURE / Unknown 03/03/2020 11:51 AM CDT Barb Melissa Carlie RODRIGUEZ URINE ORDERABLES Edited Res ult - Final [facility] [address] [place] [address], [place] [phone] [facility] [address] [place] [address], documented in this encounter Visit Diagnoses Diagnosis Lower extremity edema Edema documented in this encounter Additional Health Concerns Assessment Noted Time PHQ-9 Depression Total Score: 0 10/29/19 20 11:04 AM VASC TECH documented as of this encounter Care Teams Certified Alcohol And Drug Counselor Relationship Specialty Start Date End Date Sami Liriano DO [address] [place] [address] PCP - General FAMILY PRACTICE 12/24/19 documented as of this encounter
--- OUTSIDE RECORDS SUMMARY | 2024-09-19 12:29 | XMS_ITS | Encounter Summary ---
Author Organization [facility] Address [address] [place] [address]. [place], [place] [address] [place] [address] Care Team Providers Care Dispersion Mixer Name Role Phone Sami Liriano Primary Care Provider + Encounter Details Date Type Department Care Team (Latest Contact Info) Description 03/03/2020 Travel Social History Tobacco Use Types Packs/Day [...] on file Legal Sex Female 12:43 PM FARM AGENT Gender Identity Female 12/18/2021 6:31 AM CDT [...] st Contact Info) Description 10/09/2024 9:30 AM FARM AGENT Office Visit [facility] [phone] Carlos Farris MD [facility] [address] [place] [address] 11/02/2024 10:20 AM FARM AGENT Office Visit [facility] Family & Internal Medicine - [address] [phone] Sami Liriano DO [address] [place] [address] documented as of this encounter Visit Diagnoses Not on filedocumented in this encounter Additional Health Concerns Assessment Noted Time PHQ-9 Depression Total Score: 0 10/29/19 20 11:04 AM FARM AGENT documented as of this encounter Care Teams Dispersion Mixer Relationship Specialty Start Date End Date Sami Liriano DO [address] [place] [address] PCP - General FAMILY PRACTICE 12/24/19 documented as of this encounter
--- OUTSIDE RECORDS SUMMARY | 2024-09-19 12:30 | XMS_ITS | Encounter Summary ---
Author Organization [facility] Address [facility]. [place], [place] [address] [place] [address] Care Team Providers Care Process Mechanic Name Role Phone Sami Liriano Primary Care Provider + Encounter Details Date Type Department Care Team (Latest Contact Info) Description 12/22/2019 Travel Social History Tobacco Use Types Packs/Day [...] Date Recorded PHQ-2 Score 0 10/29/2019 Comments Unknown Sex and Gender Information Value Date Recorded Sex Assigned at Not on file Legal Sex Female 12:43 PM CLAIM MANAGER Gender Identity Female 12/18/2021 6:31 AM CDT Sexual Orientation Straight 01/15/2022 6: 11 AM CDT documented as of this encounter Plan of Treatment Upcoming Encounters Date Type Department Care Team (Late st Contact Info) Description 10/09/2024 9:30 AM CLAIM MANAGER Office Visit [facility] [phone] Carlos Farris MD [facility] [address] [place] [address] 11/02/2024 10:20 AM CLAIM MANAGER Office Visit [facility] Family & Internal Medicine - [address] [phone] Sami Liriano DO [address] [place] [address] documented as of this encounter Visit Diagnoses Not on filedocumented in this encounter Additional Health Concerns Assessment Noted Time PHQ-9 Depression Total Score: 0 10/29/19 11:04 AM CLAIM MANAGER documented as of this encounter Care Teams Process Mechanic Relationship Specialty Start Date End Date Sami Liriano DO [address] [place] [address] PCP - General FAMILY PRACTICE 10/06/19 12/23/19 documented as of this encounter
--- OUTSIDE RECORDS SUMMARY | 2024-09-19 12:30 | XMS_ITS | Encounter Summary ---
Author Organization [facility] Address [facility] [place], [place] [address] [place] [address] Care Team Providers Care Gamma Ray Operator Name Role Phone Sami Liriano DO Primary Care Provider + Sami Liriano DO Primary Care Provider + Encounter Details Date Type Department Care Team (Latest Contact Info) Description 04/17/2019 Scan Navmii INFO SRVCS Scanned, Documents Social History Tobacco Use Types Packs/Day Years Used Date Smoking Tobacco: Never Assessed AUDIT-C Answer Date Recorded Frequency of Alcohol Consumption 2-3 times a wee k 10/29/2019 Average Number of Drinks 1 or 2 020 Frequency of Binge Drinking Never 10/02 PHQ-2 Answer Date Recorded PHQ-2 Score 0 10/29/2019 Comments Unknown Sex and Gender Information Value Date Recorded Sex Assigned at Not on file Legal Sex Female 12:43 PM SOUND SYSTEM INSTALLER Gender Identity Female 12/18/2021 6:31 AM CDT Sexual Orientation Straight 01/15/2022 6: 11 AM CDT documented as of this encounter Plan of Treatment Upcoming Encounters Date Type Department Care Team (Late st Contact Info) Description 10/09/2024 9:30 AM SOUND SYSTEM INSTALLER Office Visit [facility] [phone] Carlos Farris MD [facility] [address] [place] [address] 11/02/2024 10:20 AM SOUND SYSTEM INSTALLER Office Visit [facility] Family & Internal Medicine - [place] [address] [place] [address] Sami Liriano DO [address] [place] [address] documented as of this encounter Visit Diagnoses Not on filedocumented in this encounter Care Teams Gamma Ray Operator Relationship Specialty [place] [address] [place] [address] PCP - General FAMILY PRACTICE 10/06/19 12/23/19 Sami Liriano DO [address] [place] [address] PCP - General FAMILY PRACTICE 12/24/19 documented as of this encounter
--- OUTSIDE RECORDS SUMMARY | 2024-09-19 12:30 | XMS_ITS | Encounter Summary ---
Author Organization [facility] Address [facility]. [place], [place] [address] [place] [address] Care Team Providers Care Graphic Artist Name Role Phone Sami Liriano DO Primary Care Provider + Sami Liriano DO Primary Care Provider + Encounter Details Date Type Department Care Team (Latest Contact Info) Description 03/12/2017 Scan HEALTH INFO SRVCS Scanned, Documents Social [...] on file Legal Sex Female 12:43 PM THIRD HELPER Gender Identity Female 12/18/2021 6:31 AM [...] (Late Contact Info) Description 10/09/2024 9:30 AM THIRD HELPER Office Visit [facility] [place] [address] Carlos Farris MD [facility] [address] [place] [address] 11/02/2024 10:20 AM THIRD HELPER Office Visit [facility] Family & Internal Medicine - [place] [address] [place] [address] Sami Liriano DO [address] [place] [address] documented as of this encounter Visit Diagnoses Not on filedocumented in this encounter Care Teams Graphic Artist Relationship Specialty Start Date End Date Sami Liriano DO [address] [place] [address] PCP - General FAMILY PRACTICE 10/06/19 12/23/19 Sami Liriano DO [address] [place] [address] PCP - General FAMILY PRACTICE 12/24/19 documented as of this encounter
--- OUTSIDE RECORDS SUMMARY | 2024-09-19 12:30 | XMS_ITS | Encounter Summary ---
Author Organization [facility] Address [facility]. [place], [place] [address] [place] [address] Care Team Providers Care Training Administrator Name Role Phone Sami Liriano DO Primary Care Provider + Reason for Referral * Consultation (Routine) - Closed Specialty Diagnoses / Procedures Referred By Shereen benton Referred To Contact GASTROENTEROLOGY Diagnoses Positive colorectal cancer screening using Cologuard test Sami Liriano DO [address] [place] [address] Phone: tel: fax: Joel Keenan MD [address] [place] [address] Phone: tel: fax: Referral ID Status Reason Start Date Expiration Date Visits Re quested Visits Authorized [id number] Closed 02/08/2020 09/29/2020 8 8 Reason for Visit * Reason Onset Date Comments Results 11/16/2019 Encounter Details Date Type Department Care Team (Late st Contact Info) Description 11/16/2019 Telephone [facility] Family & Internal Medicine [facility] [address] [place] [address] Sami Liriano DO [address] [place], [place] [phone] Results Social History Tobacco Use Types Packs/Day Years Used Date Smoking Tobacco: Former Cigarettes 1 12 972 1976 Smokeless Tobacco: Never Alcohol Use Standard [...] on file Legal Sex Female 12:43 PM ELECTRONIC TECHNOLOGIST Gender Identity Female 12/18/2021 6:31 AM CDT Sexual Orientation Straight 01/15/2022 6: 11 AM CDT documented as of this encounter Progress Notes * Leanna Bean RN - 12/07/2019 10:16 AM CDTAddended by: LEANNA BEAN on: 12/07/2019 10:16 AM Modules accepted: Orders * Leanna Bean RN - 12/07/2019 10:16 AM CDT Spoke to patient; verbalized understanding. Referral entered * Leanna Bean RN - 12/07/2019 8:54 AM CDTAddended by: LEANNA BEAN on: 12/07/2019 08:54 AM Modules accepted: Orders * Lenana Bean RN - 12/07/2019 8:54 AM CDT LMTC 12/07/19 * Sami Liriano DO - 12/06/2019 5:21 PM CDT Pt's cologuard is positive; she will need to f/u with GI for colonoscopy. * Leanna Bean RN - 11/18/2019 10:15 AM CST LMTC 11/18/19 TRONIC TECHNOLOGIST * Leanna Bean RN - 11/17/2019 10:06 AM CST LMTC 11/17/19 TRONIC TECHNOLOGIST * Leanna Bean RN - 11/16/2019 4:00 PM CST Patient needs to resubmit cologuard testing. Sample could not be processed. LMTC 11/16/19 TRONIC TECHNOLOGIST documented in this encounter Plan of Treatment Upcoming Encounters Date Type Department Care Team (Late st Contact Info) Description 10/09/2024 9:30 AM ELECTRONIC TECHNOLOGIST Office Visit [facility]-[address] [phone] Carlos Farris MD [facility] Suite [facility] [place] [address] 11/02/2024 10:20 AM ELECTRONIC TECHNOLOGIST Office Visit [facility] Medical Group Family & Internal Medicine - [address] [phone] Sami Liriano DO [address] [place] [address] Scheduled Referrals Name Type Priority Associated Diagnoses Orde r Schedule Ambulatory referral to Gastroenterology (OTHER) Referral Routine Positive colorectal cancer screening using Cologuard test Ordered: 12/07/2019 documented as of this encounter Visit Diagnoses Diagnosis Positive colorectal cancer screening using Cologuard test- Primary documented in this encounter Additional Health Concerns Assessment Noted Time PHQ-9 Depression Total Score: 0 10/29/19 11:04 AM ELECTRONIC TECHNOLOGIST documented as of this encounter Care Teams Training Administrator Relationship Specialty Start Date End Date Sami Liriano DO [address] [place] [address] PCP - General FAMILY PRACTICE 10/06/19 12/23/19 documented as of this encounter
--- OUTSIDE RECORDS SUMMARY | 2024-09-19 12:30 | XMS_ITS | Encounter Summary ---
Author Organization [facility] Address [address] [place] [address]. [place], [place] [address] [place] [address] Care Team Providers Care Ebd Special Education Teacher Name Role Phone Sami Liriano Primary Care Provider + Encounter Details Date Type Department Care Team (Latest Contact Info) Description 03/01/2020 Scan HEALTH INFO SRVCS Scanned, Documents Social [...] file Legal Sex Female 12:43 PM 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 ASSISTANT Gender Identity Female 12/18/2021 6:31 AM [...] Contact Info) Description 10/09/2024 9:30 AM 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 ASSISTANT Office Visit [facility] [address] [place] [address] Carlos Farris MD [facility] [address] [place] [address] 11/02/2024 10:20 AM 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 ASSISTANT Office Visit [facility] Family & Internal Medicine - [address] [phone] Sami Liriano DO [address] [place] [address] documented as of this encounter Visit Diagnoses Not on filedocumented in this encounter Additional Health Concerns Assessment Noted Time PHQ-9 Depression Total Score: 0 10/29/19 20 11:04 AM 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 ASSISTANT documented as of this encounter Care Teams Ebd Special Education Teacher Relationship Specialty Start Date End Date Sami Liriano DO [address] [place] [address] PCP - General FAMILY PRACTICE 12/24/19 documented as of this encounter
--- OUTSIDE RECORDS SUMMARY | 2024-09-19 12:30 | XMS_ITS | Encounter Summary ---
Author Organization [facility] - [facility] Address [facility]ly [facility], [facility] [place], [place] [address] [place] [address] Care Team Providers Care General Service Officer Name Role Phone Sami Liriano Primary Care Provider + Reason for Visit * Reason Onset Date Comments Advise 12/17/2019 Encounter Details Date Type Department Care Team (Late st Contact Info) Description 12/17/2019 Telephone [facility] Medical Group Multispecialty Care - [facility] [address] [facility], [address] [place] [address] Christel Granados, MILLWRIGHT SUPERVISOR-C Advise Social History Tobacco Use Types Packs/Day [...] on file Legal Sex Female 12:43 PM CONCRETE PUMP OPERATOR Gender Identity Female 12/18/2021 6:31 AM CDT Sexual Orientation Straight 01/15/2022 6: 11 AM CDT documented as of this encounter Progress Notes * Tony Can MA - 12/17/2019 10:37 AM CDT Not able to reach patient by phone or leave message to call back. Please reschedule patient when she calls back. documented in this encounter Plan of Treatment Upcoming Encounters Date Type Department Care Team (Late st Contact Info) Description 10/09/2024 9:30 AM CONCRETE PUMP OPERATOR Office Visit [facility] [address] Carlos Farris MD [facility] [address] [facility] [place] [address] 11/02/2024 10:20 AM CONCRETE PUMP OPERATOR Office Visit [facility] Medical Group Family & Internal Medicine - [address] [address] Sami Liriano DO [address] [place] [address] documented as of this encounter Visit Diagnoses Not on filedocumented in this encounter Additional Health Concerns Assessment Noted Time PHQ-9 Depression Total Score: 0 10/29/19 20 11:04 AM CONCRETE PUMP OPERATOR documented as of this encounter Care Teams General Service Officer Relationship Specialty Start Date End Date Sami Liriano DO [address] [place] [address] PCP - General FAMILY PRACTICE 10/06/19 12/23/19 documented as of this encounter
--- OUTSIDE RECORDS SUMMARY | 2024-09-19 12:30 | XMS_ITS | Encounter Summary ---
Author Organization [facility] Address Critical access hospital6 [facility]. [place], [place] [address] [place] [address] Care Team Providers Care Carbider Name Role Phone Sami Liriano DO Primary Care Provider + Sami Liriano DO Primary Care Provider + Encounter Details Date Type Department Care Team (Latest Contact Info) Description 01/15/2017 Scan [facility] INFO SRVCS Scanned, Documents Social History Tobacco [...] on file Legal Sex Female 12:43 PM MILLING OPERATOR Gender Identity Female 12/18/2021 6:31 AM CDT Sexual Orientation Straight 01/15/2022 6: 11 AM CDT documented as of this encounter Plan of Treatment Upcoming Encounters Date Type Department Care Team (Late st Contact Info) Description 10/09/2024 9:30 AM MILLING OPERATOR Office Visit [facility]-[address] [address] Carlos Farris MD [facility] [address] [place] [address] 11/02/2024 10:20 AM MILLING OPERATOR Office Visit [facility] Medical Group Family & Internal Medicine - [place] [address] [place] [address] Sami Liriano DO [address] [place] [address] documented as of this encounter Visit Diagnoses Not on filedocumented in this encounter Care Teams Carbider Relationship Specialty [place] [address] [place] [address] PCP - General FAMILY PRACTICE 10/06/19 12/23/19 Sami Liriano DO [address] [place] [address] PCP - General FAMILY PRACTICE 12/24/19 documented as of this encounter
--- OUTSIDE RECORDS SUMMARY | 2024-09-19 12:30 | XMS_ITS | Encounter Summary ---
Author Organization [facility] Address [address] [place] [address]. [place] [address] [place] [address] Care Team Providers Care Rod Filler Name Role Phone JaellowellSami cox DO Primary Care Provider + Sami Liriano DO Primary Care Provider + Reason for Visit * Reason Comments Lab (SCAN) Encounter Details Date Type Department Care Team (Latest Contact Info) Description 02/13/2018 Scan HEALTH INFO SRVCS Scanned, Documents Lab [...] on file Legal Sex Female 12:43 PM SWEATBAND DECORATING 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 Gender Identity Female 12/18/2021 6:31 [...] Upcoming Encounters Date Type Department Care Team ( Contact Info) Description 10/09/2024 9:30 AM SWEATBAND DECORATING 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 Office Visit [facility] [address] [place] [address] Carlos Farris MD Three [facility] [address] [place] [address] 11/02/2024 10:20 AM SWEATBAND DECORATING 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 Office Visit [facility] Medical Group Family & Internal Medicine - [place] [address] [place] [address] Sami Liriano DO [address] [place] [address] documented as of this encounter Procedures Procedure Name Priority Date/Time Associated Diagnosis Comments OUTSIDE LAB (SCAN ORDER) Routine 03/04/2020 2:38 PM CDT OUTSIDE LAB (SCAN ORDER) Routine 03/04/2020 2:26 PM CDT documented in this encounter Results * OUTSIDE LAB (03/04/2020 2:38 PM CDT) 03/04/2020 2:38 PM CDT us Documents Scanned SCANNING Edited Result - Final Performing Organization Address [facility] Co de Phone Number [facility] * OUTSIDE LAB (03/04/2020 2:26 PM CDT) 03/04/2020 2:26 PM CDT us Documents Scanned SCANNING Edited Result - Final Performing Organization Address [facility]/ZIP Co de Phone Number [facility] documented in this encounter Visit Diagnoses Not on filedocumented in this encounter Care Teams Rod Filler Relationship Specialty Start Date End Date Sami Liriano DO [address] [place] [address] PCP - General FAMILY PRACTICE 10/06/19 12/23/19 Sami Liriano DO [address] [place] [address] PCP - General FAMILY PRACTICE 12/24/19 documented as of this encounter
--- OUTSIDE RECORDS SUMMARY | 2024-09-19 12:30 | XMS_ITS | Encounter Summary ---
Author Organization [facility] Address [facility] [facility]. 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 Gender Identity Female 12/18/2021 6:31 AM CDT Sexual Orientation Straight 01/15/2022 6: 11 AM CDT documented as of this encounter Plan of Treatment Upcoming Encounters Date Type Department Care Team (Late st Contact Info) Description 10/09/2024 9:30 AM BOOKKEEPER RECEPTIONIST Office Visit [facility] [address] Carlos Farris MD [facility] [address] [place] [address] 11/02/2024 10:20 AM BOOKKEEPER RECEPTIONIST Office Visit [facility] Family & Internal Medicine - [place] [address] [place] [address] Sami Liriano DO [address] [place] [address] documented as of this encounter Visit Diagnoses Not on filedocumented in this encounter Care Teams Mc Kay Machine Operator Relationship Specialty [place] [address] [place] [address] PCP - General FAMILY PRACTICE 10/06/19 12/23/19 Sami Liriano DO [address] [place] [address] PCP - General FAMILY PRACTICE 12/24/19 documented as of this encounter
--- OUTSIDE RECORDS SUMMARY | 2024-09-19 12:30 | XMS_ITS | Encounter Summary ---
Author Organization [facility] Address [facility]6 [facility]. [place], [place] [address] [place] [address] Care Team Providers Care Principal Software Architect Name Role Phone Sami Liriano Primary Care Provider + Encounter Details Date Type Department Care Team (Latest Contact Info) Description 01/17/2020 4:13 PM CDT - 01/17/2020 11:59 PM CDT Hospital Encounter [facility] [place] [address] Barb Sexton, JENNIFER [address] [place], [place] [phone] Discharge Disposition: Home or Self Care (Routine Discharge) Social History Tobacco Use Types Packs/Day Years Used Date Smoking Tobacco: Former Cigarettes 1 08 30 [id number] Smokeless Tobacco: Never Alcohol Use Standard Drinks/Week [...] file Legal 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 08/24/2019 0 hydrochlorothiazid e 12.5 MG tabletIndications: Essential hypertension Take 1 tablet (12.5 mg total) by mouth every morning. 30 tablet 2 10/29/2019 0 lisinopril 40 MG tabletIndications: Essential hypertension Take 1 tablet (40 mg total) by mouth daily. 30 tablet 2 10/29/2019 0 naltrexone 50 MG tablet TAKE 1/2 TABLET BY MOUTH TWICE DAILY DIRECTED 08/24/2019 0 omeprazole 20 MG capsule TAKE 1 CAPSULE BY MOUTH EVERY DAY BEFORE A MEAL 08/24/2019 1 tolterodine LA 4 MG 24 hr capsule Take 4 mg by mouth daily. 09/07/2019 1 documented as of this encounter Progress Notes * JENNIFER Davila - 03/21/2020 4:52 PM CDT Let pt know her BMP was unremarkable documented in this encounter Plan of Treatment Upcoming Encounters Date Type Department Care Team (Late st Contact Info) Description 10/09/2024 9:30 AM SPANISH MOSS PICKER Office Visit [facility]-[address] [address] Carlos Farris MD [facility] [address] [place] [address] 11/02/2024 10:20 AM SPANISH MOSS PICKER Office Visit [facility] Medical Group Family & Internal Medicine - [place] [address] [place] [address] Sami Liriano, [address] [place] [address] documented as of this encounter Procedures Procedure Name Priority Date/Time Associated Diagnosis Comments BASIC METABOLIC PANEL Routine 03/18/2020 11:06 AM CDT Essential hypertension Lower extremity edema documented in this encounter Results * (ABNORMAL) BASIC METABOLIC PANEL (03/18/2020 11:06 AM CDT) GLUCOSE 118(H) 70 - 99 MG/DL 03/21/2020 4:47 PM CDT [facility] BUN 19(H) 7 - 18 MG/DL 03/21/2020 4:47 PM CDT [facility] CREATININE S/P/B 0.98 0.55 - 1.02 MG/DL 03/21/2020 4:47 PM CDT [facility] SODIUM S/P/B 139 136 - 145 MMOL/L 03/21/2020 4:47 PM CDT [facility] POTASSIUM S/P/B 4.5 3.5 - 5.1 MMOL/L 03/21/2020 4:47 PM CDT [facility] CHLORIDE S/P/B 106 100 - 108 MMOL/L 03/21/2020 4:47 PM CDT [facility] CO2 26.7 21 - 32 MMOL/L 03/21/2020 4:47 PM CDT [facility] CALCIUM S/P/B 9.2 8.5 - 10.1 MG/DL 03/21/2020 4:47 PM CDT [facility] ANION GAP 6.3 5 - 15 MMOL/L 03/21/2020 4:47 PM CDT [facility] BUN CREATININE RATIO 19.4 6 - 26 03/21/2020 4:47 PM CDT [facility] EGFR NON-AFR. AMER. 60(L) >90 ML/MIN/1.7 3 M2 03/21/2020 4:47 PM CDT [facility] EGFR AFR. AMER. 69(L) >90 ML/MIN/1.7 3 M2 03/21/2020 4:47 PM CDT [facility] Comment: NOTE: eGFR is not calculated for patients <18 years of age. This is an estimated GFR (CKD EPI) and should not be used for calculating drug doses. 03/18/2020 11:0 6 AM CDT [facility] Final Resul t [facility] [address] [place] [address], documented in this encounter Visit Diagnoses Diagnosis Essential hypertension Unspecified essential hypertension Lower extremity edema Edema documented in this encounter Additional Health Concerns Assessment Noted Time PHQ-9 Depression Total Score: 0 10/29/19 20 11:04 AM SPANISH MOSS PICKER documented as of this encounter Care Teams Principal Software Architect Relationship Specialty Start Date End Date Sami Liriano DO [address] [place] [address] PCP - General FAMILY PRACTICE 12/24/19 documented as of this encounter
--- OUTSIDE RECORDS SUMMARY | 2024-09-19 12:30 | XMS_ITS | Encounter Summary ---
Author Organization [facility] Address [address] [place] [address]. [place], [place] [address] [place] [address] Care Team Providers Care Car Wash Manager Name Role Phone Sami Liriano DO Primary Care Provider + Sami Liriano DO Primary Care Provider + Reason for Visit * Reason Comments Image (SCAN) CHEST 1 VIEW ONLY Encounter Details Date Type Department Care Team (Late Contact Info) Description 12/18/2016 Scan HEALTH INFO SRVCS Scanned, Documents Image (SCAN) (CHEST 1 VIEW ONLY ) Social History Tobacco Use Types Packs/Day [...] on file Legal Sex Female 12:43 PM SCREEN CLEANER Gender Identity Female 12/18/2021 6:31 AM [...] st Contact Info) Description 10/09/2024 9:30 AM SCREEN CLEANER Office Visit [facility]-[address] [address] Carlos Farris MD [address] [facility] [address] [place] [address] 11/02/2024 10:20 AM SCREEN CLEANER Office Visit [facility] Medical Group Family & Internal Medicine - [address] [address] Sami Liriano DO [address] [place] [address] documented as of this encounter Procedures Procedure Name Priority Date/Time Associated Diagnosis Comments OUTSIDE LAB (SCAN ORDER) Routine 03/04/2020 2:21 PM CDT OUTSIDE LAB (SCAN ORDER) Routine 03/04/2020 2:18 PM CDT IMAGE GENERIC Routine 12/18/2016 2:29 PM CDT documented in this encounter Results * OUTSIDE LAB (03/04/2020 2:21 PM CDT) 03/04/2020 2:21 PM CDT us Documents Scanned SCANNING Edited Result - Final Performing Organization Address [facility] Co de Phone Number [facility] * OUTSIDE LAB (03/04/2020 2:18 PM CDT) 03/04/2020 2:18 PM CDT us Documents Scanned SCANNING Edited Result - Final Performing Organization Address [facility]/ZIP Co de Phone Number [facility] * IMAGE STUDY (12/18/2016 2:29 PM CDT) Anatomical Region Laterality Modality Other 12/18/2016 2:29 PM CDT us Documents Scanned SCANNING Edited Result - Final documented in this encounter Visit Diagnoses Not on filedocumented in this encounter Care Teams Car Wash Manager Relationship Specialty Start Date End Date Sami Liriano DO [address] [place] [address] PCP - General FAMILY PRACTICE 10/06/19 12/23/19 Sami Liriano DO [address] [place] [address] PCP - General FAMILY PRACTICE 12/24/19 documented as of this encounter
--- OUTSIDE RECORDS SUMMARY | 2024-09-19 12:30 | XMS_ITS | Encounter Summary ---
Author Organization [facility] Address [facility]6 [facility]. [place], [place] [address] [place] [address] Care Team Providers Care Carbon Grinder Name Role Phone Sami Liriano DO Primary Care Provider + Sami Liriano DO Primary Care Provider + Encounter Details Date Type Department Care Team (Latest Contact Info) Description 11/28/2017 Scan Zane Prep INFO SRVCS Scanned, Documents Social History Tobacco [...] on file Legal Sex Female 12:43 PM DOOR TO DOOR FUNDRAISING COLLECTOR Gender Identity Female 12/18/2021 6:31 AM CDT Sexual Orientation Straight 01/15/2022 6: 11 AM CDT documented as of this encounter Plan of Treatment Upcoming Encounters Date Type Department Care Team (Late st Contact Info) Description 10/09/2024 9:30 AM DOOR TO DOOR FUNDRAISING COLLECTOR Office Visit [facility]-[address] [address] Carlos Farris MD [facility] [address] [place] [address] 11/02/2024 10:20 AM DOOR TO DOOR FUNDRAISING COLLECTOR Office Visit [facility] Medical Group Family & Internal Medicine - [place] [address] [place] [address] Sami Liriano DO [address] [place] [address] documented as of this encounter Visit Diagnoses Not on filedocumented in this encounter Care Teams Carbon Grinder Relationship Specialty [place] [address] [place] [address] PCP - General FAMILY PRACTICE 10/06/19 12/23/19 Sami Liriano DO [address] [place] [address] PCP - General FAMILY PRACTICE 12/24/19 documented as of this encounter
--- OUTSIDE RECORDS SUMMARY | 2024-09-19 12:30 | XMS_ITS | Encounter Summary ---
Author Organization [facility] Address [address] [place] [address]. 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 Gender Identity Female 12/18/2021 6:31 AM CDT Sexual Orientation Straight 01/15/2022 6: 11 AM CDT documented as of this encounter Plan of Treatment Upcoming Encounters Date Type Department Care Team (Late st Contact Info) Description 10/09/2024 9:30 AM MARKETING PROFESSOR Office Visit [facility]-[address] [address] Carlos Farris MD Three [facility] [address] [place] [address] 11/02/2024 10:20 AM MARKETING PROFESSOR Office Visit [facility] Medical Group Family & Internal Medicine - [address] [address] Sami Liriano DO [address] [place] [address] documented as of this encounter Visit Diagnoses Not on filedocumented in this encounter Additional Health Concerns Assessment Noted Time PHQ-9 Depression Total Score: 0 10/29/19 11:04 AM MARKETING PROFESSOR documented as of this encounter Care Teams Boat Fueler Relationship Specialty Start Date End Date Sami Liriano DO [address] [place] [address] PCP - General FAMILY PRACTICE 10/06/19 12/23/19 documented as of this encounter
--- OUTSIDE RECORDS SUMMARY | 2024-09-19 12:30 | XMS_ITS | Encounter Summary ---
Author Organization [facility] Address [address] [place] [address]. [place], [place] [address] [place] [address] Care Team Providers Care Drafter Automotive Design Layout Name Role Phone Sami Liriano Primary Care Provider + Encounter Details Date Type Department Care Team (Latest Contact Info) Description 11/26/2019 Scan HEALTH INFO SRVCS Scanned, Documents Social [...] on file Legal Sex Female 12:43 PM REFRIGERATION ENGINE OPERATOR Gender Identity Female 12/18/2021 6:31 AM CDT Sexual Orientation Straight 01/15/2022 6: 11 AM CDT documented as of this encounter Plan of Treatment Upcoming Encounters Date Type Department Care Team (Late st Contact Info) Description 10/09/2024 9:30 AM REFRIGERATION ENGINE OPERATOR Office Visit [facility]-[address] [address] Carlos Farris MD Three [facility] [address] [place] [address] 11/02/2024 10:20 AM REFRIGERATION ENGINE OPERATOR Office Visit [facility] Medical Group Family & Internal Medicine - [address] [address] Sami Liriano DO [address] [place] [address] documented as of this encounter Visit Diagnoses Not on filedocumented in this encounter Additional Health Concerns Assessment Noted Time PHQ-9 Depression Total Score: 0 10/29/19 11:04 AM REFRIGERATION ENGINE OPERATOR documented as of this encounter Care Teams Drafter Automotive Design Layout Relationship Specialty Start Date End Date Sami Liriano DO [address] [place] [address] PCP - General FAMILY PRACTICE 10/06/19 12/23/19 documented as of this encounter
--- OUTSIDE RECORDS SUMMARY | 2024-09-19 12:30 | XMS_ITS | Encounter Summary ---
Author Organization [facility] Address [facility]. [place], [place] [address] [place] [address] Care Team Providers Care Lead Electrical Controls Engineer Name Role Phone Sami Liriano DO Primary Care Provider + Reason for Visit * Reason Onset Date Comments Medication Request 01/05/2020 Caller is Lan ruth States that she has had a slight sore throat for 2 days that she thinks is related to my snoring States her main concerns has been diarrhea that is going on day 5 States that she has been taking Pepto Bi Encounter Details Date Type Department Care Team (Late st Contact Info) Description 01/05/2020 Telephone [facility] Family & Internal Medicine [address] [address] Sami Liriano DO [facility] [place] [address] Medication Request (Caller is Jolly States that she has had a slight sore throat for 2 days that she thinks is related to my snoring States her main concerns has been diarrhea that is going on day 5 States that she has been taking Pepto Bi) Social History Tobacco Use Types Packs/Day Years [...] on file Legal Sex Female 12:43 PM COAL TRAM DRIVER Gender Identity Female 12/18/2021 6:31 AM CDT Sexual Orientation Straight 01/15/2022 6: 11 AM CDT documented as of this encounter Progress Notes * Leanna Bean RN - 01/05/2020 11:23 AM CDT Spoke to patient; verbalized understanding. * Sami Liriano DO - 01/05/2020 10:48 AM CDT Has patient taken immodium? Can do 4 mg immodium for first episod eof diarrhea with 2 mg q2 hrs, max of 12 mg daily. * Mireya Polanco RN - 01/05/2020 10:15 AM CDT Caller shanelle Azevedo States that she has had a slight sore throat for 2 days that she thinks is related to my snoring Has had similar episodes in the past. States her main concern has been diarrhea that is going on day 5 Also c/o belching a lot and constant nausea. States that she has been taking Pepto Bismol without improvement. Denies fever. Complaints of very fatigued Also states that she has some baseline SOB related to her being very large but she has noted a increase in her baseline SOB with activity-- like climbing my steps No reports of difficulty urinating. Denies cough. States that she has had a 6lb. Weight loss in 5 days. Decreased appetite but is taking in fluids--water and tea. States she did eat some yogurt yesterday. States that she lives with her grandson and a mentally handicapped sister. States that her grandson had 1 day of diarrhea which resolved on it's own and states her sister has not been ill at all. Denies any recent changes in medications. Denies any change in diet. No increase in fatty, greasy or spicy food. Denies increase in junk food. Has not been eating takeout food. Mirta states that she has been cooking. States that the diarrheahas gradually increased daily States the first day was 2-3 times and states today that she has already had diarrhea 5 time States that diarrhea yesterday was red Denies that it was blood--states she had made tomato soup.States today her diarrhea is black States she has been through almost a whole bottle of Pepto Discussed with Mirta that I would be put this in as a high priority encounter to her PCP for further suggestions/recommendations or to schedule an appt. Mirta states she is hoping that something can just be called in to the pharmacy that will stop thediarrhea. States if something can be called in to please call in to [facility] [place]-- the one I normally use. Please call Mirta at [phone] Mirta states for the most part she has remained home--has been out to [employer] and [employer]. Denies any known exposure to strep, influenza/flu or the coronavirus. Denies any travel outside the country or within the [place] in the past 14-30 days or known exposure to anyone who has. Spoke with Radha in the ofc and she was made aware of encounter---1045 documented in this encounter Plan of Treatment Upcoming Encounters Date Type Department Care Team (Late st Contact Info) Description 10/09/2024 9:30 AM COAL TRAM DRIVER Office Visit [facility] [phone] Carlos Farris MD [facility] [address] [place] [address] 11/02/2024 10:20 AM COAL TRAM DRIVER Office Visit [facility] Family & Internal Medicine - [place] [address] [place] [address] Sami Liriano DO [address] [place] [address] documented as of this encounter Visit Diagnoses Not on filedocumented in this encounter Additional Health Concerns Assessment Noted Time PHQ-9 Depression Total Score: 0 10/29/19 20 11:04 AM COAL TRAM DRIVER documented as of this encounter Care Teams Lead Electrical Controls Engineer Relationship Specialty Start Date End Date Sami Liriano DO [address] [place] [address] PCP - General FAMILY PRACTICE 12/24/19 documented as of this encounter
--- OUTSIDE RECORDS SUMMARY | 2024-09-19 12:30 | XMS_ITS | Encounter Summary ---
Author Organization [facility] Address [address] [place] [address]. [place], [place] [address] [place] [address] Care Team Providers Care Air Traffic Control Specialist Name Role Phone Sami Liriano DO Primary Care Provider + Reason for Referral * (Routine) - Closed Specialty Diagnoses / Procedures Referred By Shereen benton Referred To Contact Diagnoses Primary osteoarthritis of left knee Procedures Joint Aspiration/Injection Christel Granados NP-C Referral ID Status Reason Start Date Expiration Date Visits Re quested Visits Authorized [id number] Closed 12/22/2019 01/21/2021 1 1 Reason for Visit * Reason Comments New Patient Lt knee * Consultation/Treatment (Routine) - Closed Specialty Diagnoses / Procedures Referred By Shereen benton Referred To Contact ORTHOPAEDICS Diagnoses Arthritis of left knee Sami Liriano DO [address] [place] [address] Phone: tel: fax: Christel Granados NP-C Referral ID Status Reason Start Date Expiration Date V isits Requested Visits Authorized [id number] Closed Specialty Services 10/29/2019 11/28/2020 1 1 Encounter Details Date Type Department Care Team (Late st Contact Info) Description 12/22/2019 10:40 AM CDT Office Visit [facility] Multispecialty Care - [address], [address] [place] [address] Christel Granados NP-C New Patient (Lt knee ) Social History Tobacco Use Types Packs/Day [...] Legal Sex Female 12:43 PM BUSINESS CONTINUITY MANAGEMENT DIRECTOR Gender Identity Female 12/18/2021 6:31 AM CDT Sexual Orientation Straight 01/15/2022 6: 11 AM CDT documented as of this encounter Last Filed Vital Signs Vital Sign Reading Time Taken Comments Blood Pressure 120/78 12/22/2019 10:57 AM CDT Pulse 78 12/22/2019 10:57 AM CDT Temperature - - Respiratory Rate - - Oxygen Saturation - - Inhaled Oxygen Concentration - - Weight 115.2 kg (254 lb) 12/22/2019 10:57 AM CDT Height 149.9 cm (4' 11 ) 12/22/2019 10:57 AM CDT Body Mass Index 51.3 12/22/2019 10:57 AM CDT documented in this encounter Patient Instructions * Patient Instructions* RAFAEL Duckworth - 12/22/2019 10:40 AM CDT Patient Education Patient Education Corticosteroid Joint Injection Why is this procedure done? Your doctor may give you a shot of a special medicine called a corticosteroid into your joint area,to help ease swelling and pain in the joint. Your joints are places where 2 or more bones meet. Youmay have an injury or swelling that limits your movement and causes you pain. What will the results be? The treatment may: ?? Lower pain ?? Reduce swelling in the muscles, nerves, and other tissues ?? Improve movement What happens before the procedure? Your doctor will ask you about your health history. Talk to the doctor about: ?? All the drugs you are taking. Be sure to include all prescription and poma-kms-kfumppa (OTC) drugs, and herbal supplements. Tell the doctor about any drug allergy. Bring a list of drugs you take with you. ?? If you have high blood sugar or diabetes. Your drugs may need to be changed. ?? Any bleeding problems. Be sure to tell your doctor if you are taking any drugs that may cause bleeding. Some of these are Coumadin, ibuprofen, Aleve (naproxen), or aspirin. Certain vitamins and herbs, such as garlic and fish oil, may also add to the risk for bleeding. You may need to stop these drugs as well. Talk to your doctor about them. What happens during the procedure? ?? Your doctor may do an x-ray of your joint or use x-ray during the procedure to check where to give the drug. The doctor may also use ultrasound to check. The doctor may also use a colored dye or acontrast dye to check where to inject the drug. ?? The doctor will clean the skin over your joint. This helps prevent infection. ?? You may be given a drug to help you relax. Your doctor may numb the site of the injection. ?? The drug will be injected into a space in or near the joint. ?? The needle will be taken out and a bandage will be placed over the injection site. What happens after the procedure? ?? Staff will check on you to make sure you are doing well. They will tell you when you can go home. What care is needed at home? ?? Relax on the day of the injection. ?? Avoid heavy activity with the joint that was injected for a few days. ?? Apply ice to the injection site. Place an ice pack or a bag of frozen peas wrapped in a towel over the painful part. Never put ice right on the skin. Do not leave the ice on more than 10 to 15 minutes at a time. ?? It may take few days before you will see the effects of the injection. What follow-up care is needed? Your doctor may ask you to make visits to the office to check on your progress. Be sure to keep these visits. You may also need to see a physical therapist (PT). The PT will teach you exercises to help you get back your strength and motion. Ask your doctor when you can exercise. What problems could happen? ?? Bleeding ?? Soreness at the injection site ?? Infection ?? Nerve injury ?? Tendon rupture ?? Thinning of the skin and bone around where the injection was given ?? If you are diabetic, your blood sugars may increase for several days Where can I learn more? NHS Choices https://www.nhs.uk/conditions/steroid-injections/ Last Reviewed Date 2018-08-08 Consumer Information Use and Disclaimer This information [...] is right for you. Copyright Copyright ?? 2019 [employer]. and its affiliates and/or licensors. All rights reserved. documented in this encounter Progress Notes * RAFAEL Duckworth - 12/22/2019 10:40 AM CDTAssociated Order(s): Joint Aspiration/Injection Post-Procedure Diagnose(s): Primary osteoarthritis of left knee Images from the original note were not included. Office Progress Note Reason for Visit: New Patient (Lt knee ) History of Present Illness: Patient is a 64-year-old who comes in today for evaluation of chronic left knee pain. Patient states her knee pain has been ongoing for many years. She does have a history of a right total knee [place]plasty [place] [address] Minor. Patient was told by Dr. Minor she needs to lose weight for her left total knee replacement. Patient is here to seek another orthopedic surgeon. Patient states her pain is worse with her longstanding. She does have some feelings of popping and grinding. Does have a feelings of instability over the past month. Denies any falls. Pain an 8/10 and using Tylenol for pain management. Ambulating without any assistive devices. Did report having a co rtisone injection to her left knee approximately 8 years ago and states she did not recall it beingmuch of a benefit. 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 Due to [employer] school is out of session and patient is fairly decreased in her activities. Patient is a non-smoker. BMI 51.3. ROS: Review of Systems Constitutional: Negative. HENT: Positive for tinnitus. Eyes: Negative. Respiratory: Negative. Cardiovascular: Negative. Gastrointestinal: Negative. Genitourinary: Negative. Musculoskeletal: Positive for back pain and joint pain. Skin: Negative. Neurological: Negative. Endo/Heme/Allergies: Negative. Psychiatric/Behavioral: Negative. Medications: Outpatient Medications Marked as Taking for the 12/22/19 encounter (Office Visit) with RAFAEL Duckworth Medication Sig Dispense Refill ??? acetaminophen 325 [...] Take 20 mg by mouth daily. ??? hydrochlorothiazide 12.5 MG tablet Take 1 tablet (12.5 mg total) by mouth every morning. 30 tablet 2 ??? lisinopril 40 MG tablet Take 1 tablet (40 mg total) by mouth daily. 30 tablet 2 ??? naltrexone 50 MG tablet TAKE 1/2 TABLET BY MOUTH TWICE DAILY DIRECTED ??? omeprazole 20 MG capsule TAKE 1 CAPSULE BY MOUTH EVERY DAY BEFORE A MEAL ??? tolterodine LA 4 MG 24 hr capsule Take 4 mg by mouth daily. Allergies: Allergies Allergen Reactions ??? Penicillins Rash ??? Sulfa Antibiotics Rash Medical History: Past Medical History: Diagnosis Date ??? Arthritis ??? Depression ??? GERD (gastroesophageal reflux disease) [...] Last attempt to quit: 1976 Years since quittin.2 ??? Smokeless tobacco: [...] Grandmother ??? Heart Disease Paternal Grandfather VITALS: Filed Vitals: 12/22/19 1057 BP: 120/78 Pulse: 78 Weight: 115.2 kg (254 lb) Height: 4' 11 (1.499 m) PE: Physical Exam Constitutional: She is oriented to person, place, and time and well-developed, well-nourished, and in no distress. No distress. HENT: Head: Normocephalic and atraumatic. Eyes: Pupils are equal, round, and reactive to light. EOM are normal. Neck: Normal range of motion. Neck supple. Cardiovascular: Intact distal pulses. Pulmonary/Chest: Effort normal. No respiratory distress. Musculoskeletal: Left knee: She exhibits normal range of motion (0-120), no erythema, normal alignment, no LCL laxity, normal patellar mobility and no MCL laxity. Tenderness found. Medial joint line tenderness noted.No lateral joint line tenderness noted. Patellofemoral crepitus Neurological: She is alert and oriented to person, place, and time. Skin: Skin is warm and dry. No erythema. Psychiatric: Affect and judgment normal. Vitals reviewed. Imaging: Reviewed most recent image study. XR KNEE LT 3V Narrative: Examination: XR KNEE LT 3V Exam time: 10/29/2019 11:28 AM Clinical history: Left knee pain. Arthritis. Comparison: No priors. Technique: 3 views left knee Findings: Advanced degenerative changes especially in the medial compartment and the anterior joint. No acute bony abnormalities. Surrounding soft tissues are unremarkable. Impression: IMPRESSION: 1) Severe degenerative changes worse in the medial compartment and the anterior joint. Interpreted By: Cristhian Holley MD, 10/29/2019 7:36 PM Joint Aspiration/Injection Date/Time: 12/22/2019 11:46 AM Performed by: RAFAEL Duckworth Authorized by: RAFAEL Duckworth Indications: pain Body area: knee Joint: left knee Local anesthesia used: yes Anesthesia: Local anesthesia used: yes Local Anesthetic: lidocaine 2% without epinephrine Anesthetic total: 2 mL Sedation: Patient sedated: no Preparation: Patient was prepped and draped in the usual sterile fashion. Needle size: 22 G Ultrasound guidance: yes Approach: lateral Triamcinolone amount: 40 mg Bupivacaine 0.50% amount: 2 mL Patient tolerance: Patient tolerated the procedure well with no immediate complications Diagnoses/Impression: 1. Primary osteoarthritis of left knee triamcinolone acetonide (KENALOG-40) injection 40 mg ARTHROCENTESIS MAJOR JOINT W/ ULTRASOUND GUIDANCE 2. Class 3 severe obesity due to excess calories with serious comorbidity and body mass index (BMI)of 50.0 to 59.9 in adult ([facility]) Recommendations and Plan: Reviewed x-ray images with patient. Discussed patient criteria for surgical intervention is also BMI under 40. Discussed ways for patient to work on weight reduction including having access to a poolwith water aerobics. Did also discuss anti-inflammatory types food. Reminded patient not to exceed more than 4000 mg of Tylenol in a 24-hour period. Patient to did agree to cortisone injection which was administered today. Informed patient to be mindful of benefit of injection for how long. Patient to return in 2 months for follow-up after cortisone injection and weight check. Diagnosis and plan of care was discussed with patient. Patient verbalized understanding of treatment plan. Patient was informed to call the office if there is any increase in pain, swelling, side effects of any medication administered here today. RAFAEL DUCKWORTH 12/22/2019 documented in this encounter Plan of Treatment Upcoming Encounters Date Type Department Care Team (Late st Contact Info) Description 10/09/2024 9:30 AM BUSINESS CONTINUITY MANAGEMENT DIRECTOR Office Visit [facility] [address] Carlos Farris MD [address] [facility] [address] [place] [address] 11/02/2024 10:20 AM BUSINESS CONTINUITY MANAGEMENT DIRECTOR Office Visit [facility] Family & Internal Medicine - [address] [address] Sami Liriano DO [address] [place] [address] Scheduled Orders Name Type Priority Associated Diagnoses Orde r Schedule ARTHROCENTESIS MAJOR JOINT W/ ULTRASOUND GUIDANCE Procedures Routine Primary osteoarthritis of left knee Ordered: 12/22/2019 documented as of this encounter Procedures Procedure Name Priority Date/Time Associated Diagnosis Comments JOINT ASPIRATION/INJECTI ON Routine 12/22/2019 10:40 AM CDT Primary osteoarthritis of left knee documented in this encounter Results * Joint Aspiration/Injection (12/22/2019 10:40 AM CDT) Christel Clarke NP-C - 12/22/2019 10:40 AM CDT RAFAEL Duckworth ? 12/22/2019 11:50 AM Joint Aspiration/Injection Date/Time: 12/22/2019 11:46 AM Performed by: RAFAEL Duckworth Authorized by: RAFAEL Duckworth Indications: pain Body area: knee Joint: left knee Local anesthesia used: yes Anesthesia: Local anesthesia used: yes Local Anesthetic: lidocaine 2% without epinephrine Anesthetic total: 2 mL Sedation: Patient sedated: no Preparation: Patient was prepped and draped in the usual sterile fashion. Needle size: 22 G Ultrasound guidance: yes Approach: lateral Triamcinolone amount: 40 mg Bupivacaine 0.50% amount: 2 mL Patient tolerance: Patient tolerated the procedure well with no immediate complications Christel HALL PROCEDURE/MINOR SURGICAL ORDERABLES Final Result documented in this encounter Visit Diagnoses Diagnosis Primary osteoarthritis of left knee- Primary Primary localized osteoarthrosis, lower leg Class 3 severe obesity due to excess calories with serious comorbidity and body mass index (BMI) of 50.0 to 59.9 in adult (CMS/HCC HHS/HCC) documented in this encounter Administered Medications Inactive Administered Medications - up to 3 most recent administrations Medication Order MAR Action Action Date Dose Rate Site triamcinolone acetonide (KENALOG-40) injection 40 mg 40 mg, Intra-articular, Once, 1 dose, On 12/22/19 at 1145, Shake Well LeftIndications:Primary osteoarthritis of left knee Given 12/22/2019 11:39 AM CDT 40 mg Left Knee documented in this encounter Additional Health Concerns Assessment Noted Time PHQ-9 Depression Total Score: 0 10/29/19 20 11:04 AM BUSINESS CONTINUITY MANAGEMENT DIRECTOR documented as of this encounter Care Teams Air Traffic Control Specialist Relationship Specialty Start Date End Date Sami Liriano DO [address] [place] [address] PCP - General FAMILY PRACTICE 10/06/19 12/23/19 documented as of this encounter
--- OUTSIDE RECORDS SUMMARY | 2024-09-19 12:30 | XMS_ITS | Encounter Summary ---
Author Organization [facility] Address [address] [place] [address]. 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 Gender Identity Female 12/18/2021 6:31 AM [...] (Late Contact Info) Description 10/09/2024 9:30 AM STRUCTURAL STEEL WORKER HELPER Office Visit [facility] [address] [place] [address] Carlos Farris MD [address] [facility] [address] [place] [address] 11/02/2024 10:20 AM STRUCTURAL STEEL WORKER HELPER Office Visit [facility] Family & Internal Medicine - [place] [address] [place] [address] Sami Liriano DO [address] [place] [address] documented as of this encounter Procedures Procedure Name Priority Date/Time Associated Diagnosis Comments OUTSIDE LAB (SCAN ORDER) Routine 03/04/2020 2:22 PM CDT ECG GENERIC (SCAN ORDER) Routine 12/18/2016 2:30 PM CDT documented in this encounter Results * OUTSIDE LAB (03/04/2020 2:22 PM CDT) 03/04/2020 2:22 PM CDT us Documents Scanned SCANNING Edited Result - Final Performing Organization Address [facility] Co de Phone Number [facility] * ECG (12/18/2016 2:30 PM CDT) 12/18/2016 2:30 PM CDT us Documents Scanned SCANNING Edited Result - Final Performing Organization Address [facility]/ZIP Co de Phone Number [facility] documented in this encounter Visit Diagnoses Not on filedocumented in this encounter Care Teams Manager Wound Care Relationship Specialty Start Date End Date Sami Liriano DO [address] [place] [address] PCP - General FAMILY PRACTICE 10/06/19 12/23/19 Sami Liriano DO [address] [place] [address] PCP - General FAMILY PRACTICE 12/24/19 documented as of this encounter
--- OUTSIDE RECORDS SUMMARY | 2024-09-19 12:30 | XMS_ITS | Encounter Summary ---
Author Organization [facility] Address [address] [place] [address]. [place], [place] [address] [place] [address] Care Team Providers Care Marketing Instructor Name Role Phone Sami Liriano DO Primary Care Provider + Sami Liriano DO Primary Care Provider + Reason for Visit * Reason Comments Lab (SCAN) Encounter Details Date Type Department Care Team (Latest Contact Info) Description 12/19/2016 Scan HEALTH INFO SRVCS Scanned, Documents Lab [...] on file Legal Sex Female 12:43 PM GROUND HOST/HOSTESS Gender Identity Female 12/18/2021 6:31 AM CDT [...] ( Contact Info) Description 10/09/2024 9:30 AM GROUND HOST/HOSTESS Office Visit [facility] [address] [place] [address] Carlos Farris MD [facility] [address] [place] [address] 11/02/2024 10:20 AM GROUND HOST/HOSTESS Office Visit [facility] Family & Internal Medicine - [place] [address] [place] [address] Sami Liriano DO [address] [place] [address] documented as of this encounter Procedures Procedure Name Priority Date/Time Associated Diagnosis Comments OUTSIDE LAB (SCAN ORDER) Routine 03/04/2020 3:07 PM CDT OUTSIDE LAB (SCAN ORDER) Routine 03/04/2020 2:01 PM CDT documented in this encounter Results * OUTSIDE LAB (03/04/2020 3:07 PM CDT) 03/04/2020 3:07 PM CDT us Documents Scanned SCANNING Edited Result - Final Performing Organization Address [facility] Co de Phone Number [facility] * OUTSIDE LAB (03/04/2020 2:01 PM CDT) 03/04/2020 2:01 PM CDT us Documents Scanned SCANNING Edited Result - Final Performing Organization Address [facility]/ZIP Co de Phone Number [facility] documented in this encounter Visit Diagnoses Not on filedocumented in this encounter Care Teams Marketing Instructor Relationship Specialty Start Date End Date Sami Liriano DO [address] [place] [address] PCP - General FAMILY PRACTICE 10/06/19 12/23/19 Sami Liriano DO [address] [place] [address] PCP - General FAMILY PRACTICE 12/24/19 documented as of this encounter
--- OUTSIDE RECORDS SUMMARY | 2024-09-19 12:30 | XMS_ITS | Encounter Summary ---
Author Organization [facility] Address [facility] 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 MAKER Gender Identity Female 12/18/2021 6:31 AM CDT Sexual Orientation Straight 01/15/2022 6: 11 AM CDT documented as of this encounter Plan of Treatment Upcoming Encounters Date Type Department Care Team (Late st Contact Info) Description 10/09/2024 9:30 AM OFFSET PLATE MAKER Office Visit [facility] [phone] Carlos Farris MD [facility] [address] [place] [address] 11/02/2024 10:20 AM OFFSET PLATE MAKER Office Visit [facility] Family & Internal Medicine - [place] [address] [place] [address] Sami Liriano DO [address] [place] [address] documented as of this encounter Visit Diagnoses Not on filedocumented in this encounter Care Teams Inspector Semiconductor Wafer Relationship Specialty [place] [address] [place] [address] PCP - General FAMILY PRACTICE 10/06/19 12/23/19 Sami Liriano DO [address] [place] [address] PCP - General FAMILY PRACTICE 12/24/19 documented as of this encounter
--- OUTSIDE RECORDS SUMMARY | 2024-09-19 12:30 | XMS_ITS | Encounter Summary ---
Author Organization [facility] Address [facility]. [place], [place] [address] [place] [address] Care Team Providers Care Drug And Alcohol Counsellor Name Role Phone Sami Liriano DO Primary Care Provider + Reason for Referral * Consultation (Urgent) - Closed Specialty Diagnoses / Procedures Referred By Shereen benton Referred To Contact [facility] Diagnoses Degenerative arthritis of left knee Sami Liriano DO [address] [place] [address] Phone: tel: fax: Breezy Newberry MD Phone: tel: fax: Referral ID Status Reason Start Date Expiration Date V isits Requested Visits Authorized [id number] Closed Specialty Services 02/15/2020 03/17/2021 1 1 Reason for Visit * Reason Onset Date Comments Referral 02/15/2020 Encounter Details Date Type Department Care Team (Late st Contact Info) Description 02/15/2020 Telephone [facility] Family & Internal Medicine [facility] [address] [place] [address] Sami Liriano DO [address] [place] [address] Referral Social History Tobacco Use Types Packs/Day Years Used Date Smoking Tobacco: Former Cigarettes 1 12 1 965 - 1976 Smokeless Tobacco: Never Alcohol Use [...] on file 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 Gender Identity Female 12/18/2021 6:31 AM CDT Sexual Orientation Straight 01/15/2022 6: 11 AM CDT documented as of this encounter Plan of Treatment Upcoming Encounters Date Type Department Care Team (Late st Contact Info) Description 10/09/2024 9:30 AM CHAMBER OF [employer] DIVISION MANAGER Office Visit [facility] [address] Carlos Farris MD [facility] [address] [place] [address] 11/02/2024 10:20 AM CHAMBER OF [employer] DIVISION MANAGER Office Visit [facility] Family & Internal Medicine - [address] [address] Sami Liriano DO [address] [place] [address] Scheduled Referrals Name Type Priority Associated Diagnoses Orde r Schedule Ambulatory Referral to Sports Medicine Referral Routine Degenerative arthritis of left knee Ordered: 02/15/2020 documented as of this encounter Visit Diagnoses Diagnosis Degenerative arthritis of left knee- Primary Osteoarthrosis, unspecified whether generalized or localized, lower leg documented in this encounter Additional Health Concerns Assessment Noted Time PHQ-9 Depression Total Score: 0 10/29/19 20 11:04 AM CHAMBER OF [employer] DIVISION MANAGER documented as of this encounter Care Teams Drug And Alcohol Counsellor Relationship Specialty Start Date End Date Sami Liriano DO NPI: [id number] [place] [address] PCP - General FAMILY PRACTICE 12/24/19 documented as of this encounter
--- OUTSIDE RECORDS SUMMARY | 2024-09-19 12:30 | XMS_ITS | Encounter Summary ---
Author Organization [facility] Address [address] [place] [address]. [place], [place] [address] [place] [address] Care Team Providers Care Pathology Supervisor Name Role Phone Sami Liriano DO Primary Care Provider + Sami Liriano DO Primary Care Provider + Reason for Visit * Reason Comments Sleep Study (SCAN) Encounter Details Date Type Department Care Team (Late st Contact Info) Description 03/07/2017 Scan HEALTH INFO SRVCS Scanned, Documents Sleep Study (SCAN) Social History Tobacco Use [...] on file Legal Sex Female 12:43 PM TRUCK GUARD Gender Identity Female 12/18/2021 6:31 AM CDT [...] (Late Contact Info) Description 10/09/2024 9:30 AM TRUCK GUARD Office Visit [facility] [address] [place] [address] Carlos Farris MD Three [facility] [address] [place] [address] 11/02/2024 10:20 AM TRUCK GUARD Office Visit [facility] Medical Group Family & Internal Medicine - [place] [address] [place] [address] Sami Liriano DO [address] [place] [address] documented as of this encounter Procedures Procedure Name Priority Date/Time Associated Diagnosis Comments SLEEP STUDY GENERIC (SCAN ORDER) Routine 03/07/2017 2:41 PM CDT documented in this encounter Results * SLEEP STUDY (03/07/2017 2:41 PM CDT) 03/07/2017 2:41 PM CDT us Documents Scanned SCANNING Edited Result - Final [facility] [place] documented in this encounter Visit Diagnoses Not on filedocumented in this encounter Care Teams Pathology Supervisor Relationship Specialty Start Date End Date Sami Liriano DO [address] [place] [address] PCP - General FAMILY PRACTICE 10/06/19 12/23/19 Sami Liriano DO [address] [place] [address] PCP - General FAMILY PRACTICE 12/24/19 documented as of this encounter
--- OUTSIDE RECORDS SUMMARY | 2024-09-19 12:30 | XMS_ITS | Encounter Summary ---
Author Organization [facility] Address [address] [place] [address]. [place], [place] [address] [place] [address] Care Team Providers Care Relationship Assoc Name Role Phone JaellowellSami cox DO Primary Care Provider + Sami Liriano DO Primary Care Provider + Reason for Visit * Reason Comments Lab (SCAN) CBC W/DIFF, CMP Encounter Details Date Type Department Care Team (Late st Contact Info) Description 12/19/2016 Scan HEALTH INFO SRVCS Scanned, Documents Lab (SCAN) (CBC W/DIFF, CMP) Social History Tobacco Use Types Packs/Day Years [...] on file Legal Sex Female 12:43 PM PRIZE JACKER Gender Identity Female 12/18/2021 6:31 AM CDT [...] (Late Contact Info) Description 10/09/2024 9:30 AM PRIZE JACKER Office Visit [facility] [address] [place] [address] Carlos Farris MD Three [facility] [address] [place] [address] 11/02/2024 10:20 AM PRIZE JACKER Office Visit [facility] Medical [facility] Family & Internal Medicine - [place] [address] [place] [phone] Sami Liriano DO [address] [place] [address] documented as of this encounter Procedures Procedure Name Priority Date/Time Associated Diagnosis Comments OUTSIDE LAB (SCAN ORDER) Routine 03/04/2020 2:15 PM CDT documented in this encounter Results * OUTSIDE LAB (03/04/2020 2:15 PM CDT) 03/04/2020 2:15 PM CDT us Documents Scanned SCANNING Edited Result - Final [facility] documented in this encounter Visit Diagnoses Not on filedocumented in this encounter Care Teams Relationship Assoc Relationship Specialty Start Date End Date Sami Liriano DO [address] [place] [address] PCP - General FAMILY PRACTICE 10/06/19 12/23/19 Sami Liriano DO [address] [place] [address] PCP - General FAMILY PRACTICE 12/24/19 documented as of this encounter
--- OUTSIDE RECORDS SUMMARY | 2024-09-19 12:30 | XMS_ITS | Encounter Summary ---
Author Organization [facility] Address [facility] [place], [place] [address] [place] [address] Care Team Providers Care Wardrobe Custodian Name Role Phone Sami Liriano Primary Care Provider + Encounter Details Date Type Department Care Team (Late Contact Info) Description 10/06/2019 Orders Only [facility] Family & Internal Medicine [address] [phone] Yuliana Block, PICKER PACKER Social History Tobacco Use Types Packs/Day Years Used Date Smoking Tobacco: Never Assessed Comments Unknown Sex and Gender Information Value Date Recorded Sex Assigned at Not on file Legal Sex Female 12:43 PM COPIER OPERATOR Gender Identity Female 12/18/2021 6:31 AM CDT Sexual Orientation Straight 01/15/2022 6: 11 AM CDT documented as of this encounter Plan of Treatment Upcoming Encounters Date Type Department Care Team (Late Contact Info) Description 10/09/2024 9:30 AM COPIER OPERATOR Office Visit [facility] [phone] Carlos Farris MD [facility] [address] [place] [address] 11/02/2024 10:20 AM COPIER OPERATOR Office Visit [facility] Medical [facility] Family & Internal Medicine [address] [phone] Sami Liriano DO [address] [place] [address] documented as of this encounter Visit Diagnoses Not on filedocumented in this encounter Care Teams Wardrobe Custodian Relationship Specialty Start Date End Date Sami Liriano DO [address] [place] [address] PCP - General FAMILY PRACTICE 10/06/19 12/23/19 documented as of this encounter
--- OUTSIDE RECORDS SUMMARY | 2024-09-19 12:30 | XMS_ITS | Encounter Summary ---
Author Organization [facility] Address [facility]. [place], [place] [address] [place] [address] Care Team Providers Care Wilton Weaver Name Role Phone Sami Liriano DO Primary Care Provider + Reason for Referral * Imaging (Routine) - Closed Specialty Diagnoses / Procedures Referred By Shereen benton Referred To Contact RADIOLOGY Diagnoses Breast cancer screening by mammogram Procedures MG SCREENING HAN DIGI Sami Liriano DO [address] [place] [address] Phone: tel: fax: [facility] [address] [facility] [address] [place] [address] Phone: tel: fax: Referral ID Status Reason Start Date Expiration Date V isits Requested Visits Authorized [id number] Closed Mammogram 10/29/2019 10/29/2020 1 1 OR POLICY ASSOCIATE * Consultation/Treatment (Routine) - Closed Specialty Diagnoses / Procedures Referred By Shereen benton Referred To Contact ORTHOPAEDICS Diagnoses Arthritis of left knee Sami Liriano DO [address] [id number] Phone: tel: fax: Christel Granados NP-C Referral ID Status Reason Start Date Expiration Date V isits Requested Visits Authorized [id number] Closed Specialty Services 10/29/2019 11/28/2020 1 1 OR POLICY ASSOCIATE Reason for Visit * Reason Comments Establish Care Medication Encounter Details Date Type Department Care Team (Late st Contact Info) Description 10/29/2019 10:00 AM SENIOR POLICY ASSOCIATE Office Visit [facility] Family & Internal Medicine [facility] [address] [place] [address] Sami Liriano DO [address] [place] [address] Establish Care (Medication ) Social History Tobacco Use Types Packs/Day [...] file Legal Sex Female 12:43 PM SENIOR POLICY ASSOCIATE Gender Identity Female 12/18/2021 6:31 AM CDT Sexual Orientation Straight 01/15/2022 6: 11 AM CDT documented as of this encounter Last Filed Vital Signs Vital Sign Reading Time Taken Comments Blood Pressure 126/74 10/29/2019 10:38 AM SENIOR POLICY ASSOCIATE Pulse 76 10/29/2019 10:38 AM SENIOR POLICY ASSOCIATE Temperature 36.3 ??C (97.4 ??F) 10/29/2019 10:[address] Respiratory Rate 16 10/29/2019 10:38 AM SENIOR POLICY ASSOCIATE Oxygen Saturation 96% 10/29/2019 10:38 AM SENIOR POLICY ASSOCIATE Inhaled Oxygen Concentration - - Weight 111.8 kg (246 lb 9 oz) 10/29/2019 10:38 A M SENIOR POLICY ASSOCIATE Height 152.4 cm (5') 10/29/2019 10:38 AM SENIOR POLICY ASSOCIATE Body Mass Index 48.15 10/29/2019 10:38 AM SENIOR POLICY ASSOCIATE documented in this encounter Progress Notes * Sami Liriano, - 10/29/2019 10:00 AM CST Images from the original note were not included. GENERAL OFFICE VISIT Encounter Date: 10/29/2019 Chief Complaint: 64-year-old female presents for Establish Care (Medication ) HPI: Patient presents for follow-up on essential hypertension. Patient has had hypertension for 25 years. Current medications include Lisinopril and HCTZ. Patient does not take his/her blood pressure at home. Pt has alopecia she is concerned about with HCTZ. Concurrent conditions include None. Pt has hx of depression. She is on escitalopram. She is stable on this medication at this time. Pt is on naltrexone for weight loss and hip/knee pain. This was given to her by her previous primary. She is still on Soma for this. She used to be on ibuprofen for this as well. Pt is in need of mammogram. She doesn't need Paps anymore. Pt is in need of colon cancer screening. Review of Systems Constitutional: Negative for fever. Musculoskeletal: See HPI Skin: See HPI Psychiatric/Behavioral: See HPI Patient Active Problem List Diagnosis ??? Alopecia ??? Essential hypertension ??? Arthritis of left knee Past Medical History: Diagnosis Date ??? Arthritis [...] Last attempt to quit: 1977 Years since quittin.1 ??? Smokeless tobacco: Never Used Substance and [...] file Gets together: Not on file Attends [employer] service: Not on file Active member of [...] in the pm and 1 PRN ??? carisoprodol 350 MG tablet Take 350 [...] in the pm and 1 PRN ??? carisoprodol 350 MG tablet Take 350 mg by mouth 3 (three) times daily as needed. ??? escitalopram 20 MG tablet Take 20 mg by mouth daily. ??? naltrexone 50 MG tablet TAKE 1/2 [...] ??? Sulfa Antibiotics Rash Objective: Filed Vitals: 10/29/19 1038 BP: 126/74 Pulse: 76 Resp: 16 Temp: 97.4 ??F (36.3 ??C) SpO2: 96% Weight: 111.8 kg (246 lb 9 oz) Height: 5' (1.524 m) Physical Exam Constitutional: She is oriented to person, place, and time and well-developed, well-nourished, and in no distress. HENT: Head: Normocephalic and atraumatic. Right Ear: External ear normal. Left Ear: External ear normal. Eyes: Conjunctivae are normal. Neck: Neck supple. Cardiovascular: Normal rate, regular rhythm and normal heart sounds. Exam reveals no gallop and no friction rub. No murmur heard. Pulmonary/Chest: Effort normal and breath sounds normal. No respiratory distress. She has no wheezes. She has no rales. Abdominal: Soft. Bowel sounds are normal. There is no tenderness. Musculoskeletal: She exhibits no edema. Knee exam is WNL, negative posterior/anterior drawer and negative compression/distraction Neurological: She is alert and oriented to person, place, and time. Skin: Skin is warm and dry. No rash noted. Psychiatric: Affect normal. Nursing note and vitals reviewed. XR KNEE LT 3V Narrative: Examination: XR [...] By: Cristhian Holley MD, 10/29/2019 7:36 PM Assessment & Plan: Toyin was seen today for establish care. Diagnoses and all orders for this visit: Encounter to establish care with new doctor Essential hypertension - lisinopril 40 MG tablet; Take 1 tablet (40 mg total) by mouth daily. - hydrochlorothiazide 12.5 MG tablet; Take 1 tablet (12.5 mg total) by mouth every morning. Arthritis of left knee - AMB REFERRAL TO ORTHOPEDICS - XR KNEE LT 3V; Future Alopecia BMI 45.0-49.9, adult ([facility]) Breast cancer screening by mammogram - MG SCREENING HAN DIGI Screening for malignant neoplasm of colon - COLOGUARD (AMBULATORY) Screening for lipid disorders - LIPID PANEL; Future Screening for endocrine, metabolic and immunity disorder - CBC W/DIFF AUTOMATED; Future - COMPREHENSIVE METABOLIC PANEL; Future - TSH W/REFLEX; Future - VITAMIN D, 25 OH; Future Annual physical exam - CBC W/DIFF AUTOMATED; Future - COMPREHENSIVE METABOLIC PANEL; Future - TSH W/REFLEX; Future - VITAMIN D, 25 OH; Future - LIPID PANEL; Future Discussion/Summary: Continue BP meds but will decrease HCTZ to see if this helps her alopecia. Will refer to orthopedics based upon severity of knee OA; will stop naltrexone at this time. Will order mammogram and cologuard. Will order lab work as per above. Will determine f/u based upon these results. Pt v/u. Time Spent: Approximately 30 minutes was spent in direct patient consultation and the majority of that time (>50%) was spent on counseling and coordination of care. Sami Liriano DO OR POLICY ASSOCIATE documented in this encounter Plan of Treatment Upcoming Encounters Date Type Department Care Team (Late st Contact Info) Description 10/09/2024 9:30 AM SENIOR POLICY ASSOCIATE Office Visit [facility] [address] Carlos Farris MD [facility] [address] [place] [address] 11/02/2024 10:20 AM SENIOR POLICY ASSOCIATE Office Visit [facility] Medical Group Family & Internal Medicine [facility] [address] [place] [phone] Sami Liriano DO [address] [place] [address] Scheduled Orders Name Type Priority Associated Diagnoses Orde r Schedule MG SCREENING HAN DIGI MAMMO Routine Breast cancer screening by mammogram Ordered: 10/29/2019 Scheduled Referrals Name Type Priority Associated Diagnoses Orde r Schedule Ambulatory referral to Orthopedics (OTHER) Referral Routine Arthritis of left knee Ordered: 10/29/2019 documented as of this encounter Procedures Procedure Name Priority Date/Time Associated Diagnosis Comments COLOGUARD (AMBULATORY) Routine 11/26/2019 Screening for malignant neoplasm of colon documented in this encounter Results * (ABNORMAL) LIPID PANEL (09/05/2020 2:00 PM SENIOR POLICY ASSOCIATE) CHOLESTEROL 227(H) <200 MG/DL 09/05/2020 7:[address] [facility] TRIGLYCERIDES 150(H) <150 MG/DL 09/05/2020 7:26 PM SENIOR POLICY ASSOCIATE [facility] HDL 47 >40.0 MG/DL 09/05/2020 7:[address] [facility] LDL (CALCULATED) 150(H) <100 MG/DL 09/05/2020 7:[address] [facility] NON HDL CHOLESTEROL 180(H) <130 MG/DL 09/05/2020 7:[address] [facility] CHOL/HDL RATIO 4.8(H) 0.0 - 4.5 09/05/2020 7:[address] [facility] VLDL CALCULATION 30 5 - 55 MG/DL 09/05/2020 7:[address] [facility] LIPID INTERPRETATION 09/05/2020 7:[address] [facility] Comment: NIH CONCENSUS REPORT RECOMMENDATIONS: ?ADULT [...] ?LDL ? >=160 ?>=130 09/05/2020 2:00 PM SENIOR POLICY ASSOCIATE us Sami Liriano DO LABORATORY Final Re sult [facility] [address] [place] [address], [place] [phone] * TSH W/REFLEX (09/05/2020 2:00 PM SENIOR POLICY ASSOCIATE) TSH 2.220 0.358 - 3.74 uIU/ML 09/05/2020 7:26 PM SENIOR POLICY ASSOCIATE [facility] Comment: HIGH DOSES OF BIOTIN MAY INTERFERE WITH THIS TEST RESULT. CORRELATION TO CLINICAL HISTORY AND PRESENTATION RECOMMENDED. FREE T4 NOT INDICATED 09/05/2020 2:00 PM SENIOR POLICY ASSOCIATE Sami Liriano DO LABORATORY Final Re sult [facility] [address] [place] [address], [place] [phone] * COLOGUARD (11/26/2019) COLOGUARD POSITIVE Stool specimen (specimen) 11/26/2019 Sami Liriano DO AMBULATORY COLOGUARD (RT F) Edited Result - Final * XR KNEE LT 3V (10/29/2019 11:37 AM SENIOR POLICY ASSOCIATE) Anatomical Region Laterality Modality Knee Radiographic Jody ging 10/29/2019 7:36 PM SENIOR POLICY ASSOCIATE Impressions 10/29/2019 7:37 PM SENIOR POLICY ASSOCIATE IMPRESSION: 1) Severe degenerative changes worse in the medial compartment and the anterior joint. Interpreted By: Cristhian Holley MD, 10/29/2019 7:36 PM Narrative 10/29/2019 7:37 PM SENIOR POLICY ASSOCIATE Examination: XR KNEE LT 3V Exam time: 10/29/2019 11:28 AM Clinical history: Left knee pain. Arthritis. Comparison: No priors. Technique: 3 views left knee Findings: Advanced degenerative changes especially in the medial compartment and the anterior joint. No acute bony abnormalities. Surrounding soft tissues are unremarkable. Procedure Note Cristhian Holley MD - 10/29/2019 Examination: XR KNEE LT 3V Exam time: 10/29/2019 11:28 AM Clinical history: Left knee pain. Arthritis. Comparison: No priors. Technique: 3 views left knee Findings: Advanced degenerative changes especially in the medial compartment and the anterior joint. No acute bony abnormalities. Surrounding soft tissues are unremarkable. IMPRESSION: 1) Severe degenerative changes worse in the medial compartment and the anterior joint. Interpreted By: Cristhian Holley MD, 10/29/2019 7:36 PM Sami Liriano DO GENERAL IMAGING Final Re sult documented in this encounter Visit Diagnoses Diagnosis Encounter to establish care with new doctor- Primary Other reasons for seeking consultation Essential hypertension Unspecified essential hypertension Arthritis of left knee Unspecified arthropathy, lower leg Alopecia Alopecia, unspecified BMI 45.0-49.9, adult (CMS/HCC HHS/HCC) Body Mass Index 45.0-49.9, adult Breast cancer screening by mammogram Screening for malignant neoplasm of colon Screening for lipid disorders Screening for endocrine, metabolic and immunity disorder Annual physical exam Routine general medical examination at a health care facility documented in this encounter Additional Health Concerns Assessment Noted Time PHQ-9 Depression Total Score: 0 10/29/19 20 11:04 AM SENIOR POLICY ASSOCIATE documented as of this encounter Care Teams Wilton Weaver Relationship Specialty Start Date End Date Sami Liriano DO [address] [place] [address] PCP - General FAMILY PRACTICE 10/06/19 12/23/19 documented as of this encounter
--- OUTSIDE RECORDS SUMMARY | 2024-09-19 12:30 | XMS_ITS | Encounter Summary ---
Author Organization [facility] Address formerly [facility]. [place], [place] [address] [place] [address] Care Team Providers Care Brake Tester Name Role Phone Sami Liriano DO Primary Care Provider + Sami Liriano DO Primary Care Provider + Encounter Details Date Type Department Care Team (Latest Contact Info) Description 04/17/2017 Scan [employer] INFO SRVCS Scanned, Documents Social History Tobacco [...] file Legal Sex Female 12:43 PM CORPORATE VP ADVERTISING & ONLINE Gender Identity Female 12/18/2021 6:31 AM CDT Sexual Orientation Straight 01/15/2022 6: 11 AM CDT documented as of this encounter Plan of Treatment Upcoming Encounters Date Type Department Care Team (Late st Contact Info) Description 10/09/2024 9:30 AM CORPORATE VP ADVERTISING & ONLINE Office Visit [facility] [phone] Carlos Farris MD [facility] [address] [place] [address] 11/02/2024 10:20 AM CORPORATE VP ADVERTISING & ONLINE Office Visit [facility] Family & Internal Medicine - [place] [address] [place] [address] Sami Liriano DO [address] [place] [address] documented as of this encounter Visit Diagnoses Not on filedocumented in this encounter Care Teams Brake Tester Relationship Specialty [place] [address] [place] [address] PCP - General FAMILY PRACTICE 10/06/19 12/23/19 Sami Liriano DO [address] [place] [address] PCP - General FAMILY PRACTICE 12/24/19 documented as of this encounter
--- OUTSIDE RECORDS SUMMARY | 2024-09-19 12:30 | XMS_ITS | Encounter Summary ---
Author Organization [facility] Address [facility]6 [facility]. [place], [place] [address] [place] [address] Care Team Providers Care Upholstered Goods Crafter Name Role Phone Sami Liriano DO Primary Care Provider + Sami Liriano DO Primary Care Provider + Encounter Details Date Type Department Care Team (Latest Contact Info) Description 10/03/2017 Scan [facility] INFO SRVCS Scanned, Documents Social History Tobacco [...] on file Legal Sex Female 12:43 PM BROKE BEATER 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 Gender Identity Female 12/18/2021 6:31 AM CDT Sexual Orientation Straight 01/15/2022 6: 11 AM CDT documented as of this encounter Plan of Treatment Upcoming Encounters Date Type Department Care Team (Late st Contact Info) Description 10/09/2024 9:30 AM BROKE BEATER 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 Office Visit [facility] [phone] Carlos Farris MD [facility] [address] [place] [address] 11/02/2024 10:20 AM BROKE BEATER 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 Office Visit [facility] Medical [facility] Family & Internal Medicine - [place] [address] [place] [address] Sami Liriaon DO [address] [place] [address] documented as of this encounter Visit Diagnoses Not on filedocumented in this encounter Care Teams Upholstered Goods Crafter Relationship Specialty [place] [address] [place] [address] PCP - General FAMILY PRACTICE 10/06/19 12/23/19 Sami Liriano DO [address] [place] [address] PCP - General FAMILY PRACTICE 12/24/19 documented as of this encounter
--- OUTSIDE RECORDS SUMMARY | 2024-09-19 12:30 | XMS_ITS | Encounter Summary ---
Author Organization [facility] Address [address] [place] [address]. [place], [place] [id number] [place] [address] Care Team Providers Care Tax Services Professional Name Role Phone Sami Liriano Primary Care Provider + Reason for Visit * Reason Comments Swelling Encounter Details Date Type Department Care Team (Late st Contact Info) Description 03/03/2020 10:40 AM CDT Office Visit [facility] Family & Internal Medicine [facility] [address] [place] [address] Barb Sexton APNP [facility] [place] [address] Swelling Social History Tobacco Use Types Packs/Day Years [...] on file Legal Sex Female 12:43 PM METAL RIVETER Gender Identity Female 12/18/2021 6:31 AM CDT [...] Sign Reading Time Taken Comments Blood Pressure 184/82 03/03/2020 11:43 AM CDT Pulse 75 03/03/2020 10:48 AM CDT Temperature 36.4 ??C (97.6 ??F) 03/03/2020 10:48 AM C DT Respiratory Rate 16 03/03/2020 10:48 AM CDT Oxygen Saturation 98% 03/03/2020 10:48 AM CDT Inhaled Oxygen Concentration - - Weight 116.6 kg (257 lb) 03/03/2020 10:48 AM CDT Height 149.9 cm (4' 11 ) 03/03/2020 10:48 AM CDT Body Mass Index 51.91 03/03/2020 10:48 AM CDT documented in this encounter Progress Notes * JENNIFER Davila - 03/03/2020 10:40 AM CDTAssociated Order(s): ECG Review/Interpret Only Post-Procedure Diagnose(s): Essential hypertension; Lower extremity edema Images from the original note were not included. [facility] FAMILY AND INTERNAL MEDICINE OFFICE VISIT Reason for Visit: Swelling History of Present Illness: 65 yo female is here today with PMH of HTN, GERD, left knee osteoarthritis and depression is here today with c/o water retention and extremity edema. She notes that water retention/edema first started about 10 days ago while she was traveling to [place].She notes swelling in both her upper and lower extremities. Throughout her vacation in [place], symptomscontinued to worsen. She is treated for HTN with lisinopril and HCTZ. She has tried to avoid salt and increase her water intake over the last week. She does note she ateout at restaurants several times throughout her stay in [place]. She has some SOB----but states this is not new. She denies any chest pain or cough. Notes legs/armsare not warm to touch and not particularly painful. She has gained 3 lbs since a 12/22/2019 nurse visit BP check. She notes she is unable to wear her rings due to her hand swelling. On [place] in the evening, she states she took 4 of her HCTZ (for a total of 50 mg), two 12.5 mg doses and her regular prescribed dose of 12.5 mg today. She denies any specific leg pain but noticed some tingling of both of her lower extremities--but this has resolved. She states of this morning, her edema is starting to improve a little. In September, he PCP decreased her HCTZ from 25 mg to 12.5 mg due to pt's concern regarding some alpoecia. Pt states she had tolerated this well and her BP had been controlled until this past week. Shedenies any other medication changes from any other providers other than dc'ing her naltrexone that was prescribed by another provider. ROS: Review of Systems Constitutional: Positive for malaise/fatigue. Negative for chills and fever. Respiratory: Negative for cough and shortness of breath. Cardiovascular: Positive for leg swelling. Negative for chest pain and palpitations. Gastrointestinal: Negative for abdominal pain and vomiting. Genitourinary: Negative for dysuria and urgency. Skin: Negative for itching and rash. Neurological: Negative for dizziness and headaches. Psychiatric/Behavioral: Positive for depression. Negative for suicidal ideas. The patient is not nervous/anxious. Medications: Current Outpatient Medications: ??? acetaminophen 325 [...] Rfl: ??? furosemide 20 MG tablet, Take 1 tablet (20 mg total) by mouth daily., Disp: 3 tablet, Rfl: 0 ??? hydroCHLOROthiazide 25 MG tablet, Take 1 tablet (25 mg total) by mouth every morning., Disp: 30tablet, Rfl: 1 ??? LISINOPRIL 40 MG tablet, TAKE 1 TABLET BY MOUTH EVERY DAY, Disp: 90 tablet, Rfl: 0 ??? omeprazole 20 MG capsule, TAKE 1 CAPSULE BY MOUTH EVERY DAY BEFORE A MEAL, Disp: , Rfl: ??? tolterodine LA 4 MG 24 hr [...] file Gets together: Not on file Attends roman catholic service: Not on file Active member of [...] and normal heart sounds. No murmur heard. 2+ pitting edema noted to both bilateral lower extremities. Mild swelling noted of hands. Pulmonary/Chest: Effort normal and breath sounds normal. [...] No rash noted. No erythema. No pallor. No redness or warmth noted of either lower extremity. Psychiatric: Mood and affect normal. Nursing note and vitals reviewed. Filed Vitals: 03/03/20 1048 03/03/20 1143 BP: (!) 197/85 (!) 184/82 Pulse: 75 Resp: 16 Temp: 97.6 ??F (36.4 ??C) SpO2: 98% Weight: 116.6 kg (257 lb) Height: 4' 11 (1.499 m) ECG Review/Interpret Only Date/Time: 03/03/2020 12:27 PM Performed by: JENNIFER Davila Authorized by: JENNIFER Davila Rhythm: sinus rhythm Rate: normal QRS axis: normal T flattening: aVR, aVL and aVF Other: no other findings Clinical impression: non-specific ECG Comments: Non specific T-wave changes noted, flattened T-waves in AVR, AVF, Avl. Otherwise no acutechanges noted. Labs: Labs Reviewed Diagnoses/Impression: 1. Essential hypertension ELECTROCARDIOGRAM, COMPLETE VENIPUNC ARM DRAW USE ECHOCARDIOGRAM furosemide 20 MG tablet hydroCHLOROthiazide 25 MG tablet 2. Lower extremity edema ELECTROCARDIOGRAM, COMPLETE CBC W/DIFF AUTOMATED COMPREHENSIVE METABOLIC PANEL VENIPUNC ARM DRAW USE ECHOCARDIOGRAM furosemide 20 MG tablet hydroCHLOROthiazide 25 MG tablet URINALYSIS WI REFLEX TO CULTURE Recommendations and Plan: 1. Essential hypertension - ELECTROCARDIOGRAM, COMPLETE - VENIPUNC ARM DRAW - USE ECHOCARDIOGRAM; Future - furosemide 20 MG tablet; Take 1 tablet (20 mg total) by mouth daily. Dispense: 3 tablet; Refill: 0 - hydroCHLOROthiazide 25 MG tablet; Take 1 tablet (25 mg total) by mouth every morning. Dispense: 30 tablet; Refill: 1 BP remains elevated. EKG done today and found to be elevated. Pt reminded to take meds as directed,HCTZ increased to 25 mg and lasix added to regimen for 3 days. Would like to see her back on Saturday. Danger signs were discussed with pt today and she is to go to ER if develops these. 2. Lower extremity edema - ELECTROCARDIOGRAM, COMPLETE - CBC W/DIFF AUTOMATED; Future - COMPREHENSIVE METABOLIC PANEL; Future - VENIPUNC ARM DRAW - USE ECHOCARDIOGRAM; Future - furosemide 20 MG tablet; Take 1 tablet (20 mg total) by mouth daily. Dispense: 3 tablet; Refill: 0 - hydroCHLOROthiazide 25 MG tablet; Take 1 tablet (25 mg total) by mouth every morning. Dispense: 30 tablet; Refill: 1 - URINALYSIS WI REFLEX TO CULTURE; Future Unsure of exact cause of patient's lower extremity edema. EKG done today and found to be for the most part unremarkable. Encouraged water intake. Lung sounds were within normal limits. Hydrochlorothiazide increased and Lasix added for 3 days. Echocardiogram ordered for further evaluation. Will check labs. More plan after results. We will see patient back in 3 days for follow-up. Again, danger signs discussed with patient she is go to the ER over the weekend if develops these. Orders Placed This Encounter ??? VENIPUNC ARM DRAW ??? CBC W/DIFF AUTOMATED ??? COMPREHENSIVE METABOLIC PANEL ??? URINALYSIS WI REFLEX TO CULTURE ??? USE ECHOCARDIOGRAM ??? furosemide 20 MG tablet ??? hydroCHLOROthiazide 25 MG tablet ? ? [id number] - EKG (In Clinic Complete- tracing, interp & report) Cannot display discharge medications since this is not an admission. PCP: JENNIFER Davila 03/03/2020 Cosigned by Rubio Thomas MD at 03/04/2020 3:14 PM CDT documented in this encounter Plan of Treatment Upcoming Encounters Date Type Department Care Team (Late st Contact Info) Description 10/09/2024 9:30 AM METAL RIVETER Office Visit [facility] [address] Carlos Farris MD [facility] [address] [place] [address] 11/02/2024 10:20 AM METAL RIVETER Office Visit [facility] Group Family & Internal Medicine - [address] [address] Sami Liriano DO [address] [place] [address] documented as of this encounter Procedures Procedure Name Priority Date/Time Associated Diagnosis Comments VENIPUNC ARM DRAW Routine 03/03/2020 11: 42 AM CDT Essential hypertension Lower extremity edema ELECTROCARDIOGRAM, COMPLETE Routine 03/03/2020 11:08 AM CDT Essential hypertension Lower extremity edema EVENT RECORDER (ECG) UP TO 30 DAYS REVIEW/INTERP Routine 03/03/2020 10:40 AM CDT Essential hypertension Lower extremity edema documented in this encounter Results * (ABNORMAL) URINALYSIS WI REFLEX TO CULTURE (03/03/2020 11:51 AM CDT) SPECIMEN TYPE URINE CLEAN CATCH 03/03/2020 6:17 PM CDT [facility] COLOR (U) LIGHT YELLOW 03/03/2020 11:15 PM CDT [facility] TRANSPARENCY CLEAR 03/03/2020 11:15 PM T [facility] SPECIFIC GRAVITY (U) 1.014 1.001 - 1.030 03/03/2020 11:15 PM T [facility] U PH 7.0 5.0 - 9.0 03/03/2020 11:15 PM T [facility] LEUKOCYTES (U) 75(A) NEGATIVE 03/03/2020 11:15 PM CDT [facility] NITRITES NEGATIVE NEGATIVE 03/03/2020 11:15 PM T [facility] PROTEIN (U) NEGATIVE <30 MG/DL 03/03/2020 11:15 PM T [facility] URINE GLUCOSE NORMAL NORMAL MG/DL 03/03/2020 11:15 PM T [facility] KETONES MG/DL (U) NEGATIVE NEGATIVE MG/DL 03/03/2020 11:15 PM T [facility] UROBILINOGEN NORMAL NORMAL MG/DL 03/03/2020 11:15 PM T [facility] BILIRUBIN (U) NEGATIVE NEGATIVE MG/DL 03/03/2020 11:15 PM T [facility] BLOOD (U) NEGATIVE NEGATIVE 03/03/2020 11:[address] [facility] CULTURE & SENSITIVITY INDICATED? SPECIMEN SETUP FOR CULTURE 03/03/2020 11:15 PM T [facility] MUCUS RARE /LPF 03/03/2020 11:15 PM T [facility] WBC/HPF 2 <6 /HPF 03/03/2020 11:15 PM T [facility] RBC/HPF <1 <6 /HPF 03/03/2020 11:15 PM T [facility] SQUAMOUS EPITHELIALS RARE /HPF 03/03/2020 11:15 PM T [facility] URINE SPECIMEN OBTAINED BY CLEAN CATCH PROCEDURE / Unknown 03/03/2020 11:51 AM CDT Barb RODRIGUEZ URINE ORDERABLES Edited Res ult - Final [facility] [address] [place] [address], [place] [phone] [facility] [address] [place] [address], [place] [phone] * (ABNORMAL) COMPREHENSIVE METABOLIC PANEL (03/03/2020 11:51 AM CDT) GLUCOSE 104(H) 70 - 99 MG/DL 03/03/2020 9:39 PM CDT [facility] BUN 17 7 - 18 MG/DL 03/03/2020 9:39 PM CDT [facility] CREATININE S/P/B 0.93 0.55 - 1.02 MG/DL 03/03/2020 9:39 PM CDT [facility] SODIUM S/P/B 137 136 - 145 MMOL/L 03/03/2020 9:39 PM CDT [facility] POTASSIUM S/P/B 4.1 3.5 - 5.1 MMOL/L 03/03/2020 9:39 PM CDT [facility] CHLORIDE S/P/B 102 100 - 108 MMOL/L 03/03/2020 9:39 PM CDT [facility] CO2 27.4 21 - 32 MMOL/L 03/03/2020 9:39 PM CDT [facility] CALCIUM S/P/B 9.5 8.5 - 10.1 MG/DL 03/03/2020 9:39 PM CDT [facility] BILIRUBIN TOTAL S/P/B 1.7(H) 0.2 - 1.2 MG/DL 03/03/2020 9:[address] [facility] Comment: THIS ASSAY IS NOT RECOMMENDED FOR PATIENTS UNDERGOING TREATMENT WITH ELTROMBOPAG DUE TO THE POTENTIAL FOR FALSELY ELEVATED RESULTS. TOTAL PROTEIN S/P/B 7.9 6.4 - 8.2 G/DL 03/03/2020 9:[address] [facility] ALBUMIN S/P/B 4.1 3.4 - 5.0 G/DL 03/03/2020 9:39 PM T [facility] AST 18 15 - 37 U/L 03/03/2020 9:[address] [facility] ALT 24 14 - 55 U/L 03/03/2020 9:[address] [facility] ALKALINE PHOSPHATASE S/P/B 102 50 - 136 U/L 03/03/2020 9:[address] [facility] ANION GAP 7.6 5 - 15 MMOL/L 03/03/2020 9:[address] [facility] BUN CREATININE RATIO 18.2 6 - 26 03/03/2020 9:[address] [facility] A/G RATIO 1.1 1.0 - 2.0 RATIO 03/03/2020 9:[address] [facility] EGFR NON-AFR. AMER. 64(L) >90 ML/MIN/1.7 3 M2 03/03/2020 9:[address] [facility] EGFR AFR. AMER. 74(L) >90 ML/MIN/1.7 3 M2 03/03/2020 9:[address] [facility] Comment: NOTE: eGFR is not calculated for patients <18 years of age. This is an estimated GFR (CKD EPI) and should not be used for calculating drug doses. 03/03/2020 11:5 1 AM CDT us Barb Sexton [facility] Final Resul t [facility] [address] [place] [address], [place] [phone] * (ABNORMAL) CBC W/DIFF AUTOMATED (03/03/2020 11:51 AM CDT) [facility] WBC 10.6 4.5 - 11.0 x10'3/uL 03/03/2020 9:17 PM CDT [facility] RBC 4.77 4.20 - 5.40 x10'6/uL 03/03/2020 9:17 PM CDT [facility] HGB 13.1 12.0 - 16.0 G/DL 03/03/2020 9:17 PM CDT [facility] HCT 42.3 38.0 - 48.0 % 03/03/2020 9:17 PM CDT [facility] MCV 88.7 80.0 - 94.0 FL 03/03/2020 9:17 PM CDT [facility] MCH 27.5 27.0 - 31.0 PG 03/03/2020 9:17 PM CDT [facility] MCHC 31.0(L) 32.0 - 36.0 G/DL 03/03/2020 9:17 PM CDT [facility] RDW 14.6(H) 11.5 - 14.5 % 03/03/2020 9:17 PM CDT [facility] PLT 244 130 - 400 x10'3/uL 03/03/2020 9:17 PM CDT [facility] MPV 10.7 9.3 - 12.2 FL 03/03/2020 9:17 PM CDT [facility] DIFFERENTIAL TYPE AUTOMATED DIFFERENTIAL 03/03/2020 9:17 PM CDT [facility] NEUTROPHILS % 63.9 % 03/03/2020 9:17 PM CDT [facility] LYMPHOCYTES % 26.7 % 03/03/2020 9:17 PM CDT [facility] MONOCYTES % 7.4 % 03/03/2020 9:17 PM CDT [facility] EOSINOPHILS 1.1 % 03/03/2020 9:17 PM CDT [facility] BASOPHILS 0.7 % 03/03/2020 9:17 PM CDT [facility] IMMATURE GRANS % 0.2 % 03/03/20 9:17 PM CDT [facility] ABS. NEUTROPHILS TOTAL 6.78 1.80 - 7.70 x10'3/uL 03/03/2020 9:17 PM CDT [facility] ABS. LYMPHOCYTES 2.83 1.00 - 4.80 x10'3/uL 03/03/2020 9:17 PM CDT [facility] ABS. MONOCYTES 0.79 0.24 - 0.86 x10'3/uL 03/03/2020 9:17 PM CDT [facility] ABS. EOSINOPHILS 0.12 0.04 - 0.36 x10'3/uL 03/03/2020 9:17 PM CDT [facility] ABS. BASOPHILS 0.07 0.01 - 0.08 x10'3/uL 03/03/2020 9:17 PM CDT [facility] ABS. IMMATURE GRANULOCYTES 0.02 0.00 - 0.49 x10'3/uL 03/03/2020 9:17 PM CDT [facility] 03/03/2020 11:5 1 AM CDT us [facility] Final Resul t [facility] [address] [place] [address], * [id number] - EKG (In Clinic Complete- tracing, interp & report) (03/03/2020 11:08 AM CDT) 03/03/2020 11:0 8 AM CDT Barb RODRIGUEZ PROCEDURES-RESULTABLE Final Result * ECG Review/Interpret Only (03/03/2020 10:40 AM CDT) Narrative Rubio Thomas MD - 03/03/2020 10:40 AM CDT JENNIFER Davila ? 03/03/2020 12:28 PM ECG Review/Interpret Only Date/Time: 03/03/2020 12:27 PM Performed by: JENNIFER Davila Authorized by: JENNIFER Davila Rhythm: sinus rhythm Rate: normal QRS axis: normal T flattening: aVR, aVL and aVF Other: no other findings Clinical impression: non-specific ECG Comments: Non specific T-wave ??changes noted, flattened T-waves in AVR, AVF, Avl. Otherwise no acute changes noted. Barb RODRIGUEZ ECG ORDERABLES Final Resul t documented in this encounter Visit Diagnoses Diagnosis Essential hypertension- Primary Unspecified essential hypertension Lower extremity edema Edema documented in this encounter Additional Health Concerns Assessment Noted Time PHQ-9 Depression Total Score: 0 10/29/19 20 11:04 AM METAL RIVETER documented as of this encounter Care Teams Tax Services Professional Relationship Specialty Start Date End Date Sami Liriano DO [address] [place] [address] PCP - General FAMILY PRACTICE 12/24/19 documented as of this encounter
--- OUTSIDE RECORDS SUMMARY | 2024-09-19 12:30 | XMS_ITS | Encounter Summary ---
Author Organization [facility] Address [address] [place] [address]. [place], [place] [address] [place] [address] Care Team Providers Care Scene Shifter Name Role Phone JaellowellSami cox DO Primary Care Provider + Sami Liriano DO Primary Care Provider + Reason for Visit * Reason Comments Lab (SCAN) Encounter Details Date Type Department Care Team (Latest Contact Info) Description 2018 Scan HEALTH INFO SRVCS Scanned, Documents Lab [...] file Legal Sex Female 12:43 PM SALES CONSULTANT RESIDENTIAL MANAGER Gender Identity Female 12/18/2021 6:31 AM [...] ( Contact Info) Description 10/09/2024 9:30 AM SALES CONSULTANT RESIDENTIAL MANAGER Office Visit [facility] [address] [place] [address] Carlos Farris MD [facility] [address] [place] [address] 11/02/2024 10:20 AM SALES CONSULTANT RESIDENTIAL MANAGER Office Visit [facility] Family & Internal Medicine - [place] [address] [place] [address] Sami Liriano DO [address] [place] [address] documented as of this encounter Procedures Procedure Name Priority Date/Time Associated Diagnosis Comments OUTSIDE LAB (SCAN ORDER) Routine 03/04/2020 1:50 PM CDT documented in this encounter Results * OUTSIDE LAB (03/04/2020 1:50 PM CDT) 03/04/2020 1:50 PM CDT us Documents Scanned SCANNING Edited Result - Final [facility] documented in this encounter Visit Diagnoses Not on filedocumented in this encounter Care Teams Scene Shifter Relationship Specialty Start Date End Date Sami Liriano DO [address] [place] [address] PCP - General FAMILY PRACTICE 10/06/19 12/23/19 Sami Liriano DO [address] [place] [address] PCP - General FAMILY PRACTICE 12/24/19 documented as of this encounter
--- OUTSIDE RECORDS SUMMARY | 2024-09-19 12:30 | XMS_ITS | Encounter Summary ---
Author Organization [facility] Address [facility]. [place], [place] [address] [place] [address] Care Team Providers Care Nurses Medical Assistants Phlebotomists Name Role Phone Sami Liriano DO Primary Care Provider + Sami Liriano DO Primary Care Provider + Encounter Details Date Type Department Care Team (Latest Contact Info) Description 08/24/2019 Scan [place] INFO SRVCS Scanned, Documents Social History Tobacco [...] on file Legal Sex Female 12:43 PM BEHAVIORAL HEALTH CARE COORDINATOR Gender Identity Female 12/18/2021 6:31 AM CDT Sexual Orientation Straight 01/15/2022 6: 11 AM CDT documented as of this encounter Plan of Treatment Upcoming Encounters Date Type Department Care Team (Late st Contact Info) Description 10/09/2024 9:30 AM BEHAVIORAL HEALTH CARE COORDINATOR Office Visit [facility] [address] [facility] [address] [place] [address] 11/02/2024 10:20 AM BEHAVIORAL HEALTH CARE COORDINATOR Office Visit [facility] Family & Internal Medicine - [place] [address] [place] [address] Sami Liriano DO [address] [place] [address] documented as of this encounter Visit Diagnoses Not on filedocumented in this encounter Care Teams Nurses Medical Assistants Phlebotomists Relationship Specialty [place] [address] [place] [address] PCP - General FAMILY PRACTICE 10/06/19 12/23/19 Sami Liriano DO [address] [place] [address] PCP - General FAMILY PRACTICE 12/24/19 documented as of this encounter
--- OUTSIDE RECORDS SUMMARY | 2024-09-19 12:31 | XMS_ITS | Encounter Summary ---
Author Organization [facility] Address [address] [place] [address]. [place], [place] [address] [place] [address] Care Team Providers Care Staffing Manager Name Role Phone JaellowellSami cox DO Primary Care Provider + Sami Liriano DO Primary Care Provider + Reason for Visit * Reason Comments Lab (SCAN) Encounter Details Date Type Department Care Team (Latest Contact Info) Description 12/03/2015 Scan HEALTH INFO SRVCS Scanned, Documents Lab [...] on file Legal Sex Female 12:43 PM OYSTER PREPARER Gender Identity Female 12/18/2021 6:31 AM [...] ( Contact Info) Description 10/09/2024 9:30 AM OYSTER PREPARER Office Visit [facility] [address] [place] [address] Carlos Farris MD Three [facility] [address] [place] [address] 11/02/2024 10:20 AM OYSTER PREPARER Office Visit [facility] Family & Internal Medicine - [place] [address] [place] [address] Sami Liriano DO [address] [place] [address] documented as of this encounter Procedures Procedure Name Priority Date/Time Associated Diagnosis Comments OUTSIDE LAB (SCAN ORDER) Routine 03/04/2020 2:19 PM CDT documented in this encounter Results * OUTSIDE LAB (03/04/2020 2:19 PM CDT) 03/04/2020 2:19 PM CDT us Documents Scanned SCANNING Edited Result - Final [facility] documented in this encounter Visit Diagnoses Not on filedocumented in this encounter Care Teams Staffing Manager Relationship Specialty Start Date End Date Sami Liriano DO [address] [place] [address] PCP - General FAMILY PRACTICE 10/06/19 12/23/19 Sami Liriano DO [address] [place] [address] PCP - General FAMILY PRACTICE 12/24/19 documented as of this encounter
--- OUTSIDE RECORDS SUMMARY | 2024-09-19 12:31 | XMS_ITS | Encounter Summary ---
Author Organization [facility] Address [address] [place] [address]. [place], [place] [address] [place] [address] Care Team Providers Care Verification Engineer Name Role Phone Sami Liriano DO Primary Care Provider + Sami Liriano DO Primary Care Provider + Reason for Visit * Reason Comments Lab (SCAN) Encounter Details Date Type Department Care Team (Latest Contact Info) Description 12/18/2016 Scan HEALTH INFO [...] on file Legal Sex Female 12:43 PM HEEL PAINTER Gender Identity Female 12/18/2021 6:31 AM [...] ( Contact Info) Description 10/09/2024 9:30 AM HEEL PAINTER Office Visit [facility] [address] [place] [address] Carlos Farris MD [facility] [address] [place] [address] 11/02/2024 10:20 AM HEEL PAINTER Office Visit [facility] Family & Internal Medicine - [place] [address] [place] [address] Sami Liriano DO [address] [place] [address] documented as of this encounter Procedures Procedure Name Priority Date/Time Associated Diagnosis Comments OUTSIDE LAB (SCAN ORDER) Routine 03/04/2020 1:38 PM CDT documented in this encounter Results * OUTSIDE LAB (03/04/2020 1:38 PM CDT) 03/04/2020 1:38 PM CDT us Documents Scanned SCANNING Final Result Performing Organization Address City/State/[facility] Co de Phone Number [facility] documented in this encounter Visit Diagnoses Not on filedocumented in this encounter Care Teams Verification Engineer Relationship Specialty Start Date End Date Sami Liriano DO [address] [place] [address] PCP - General FAMILY PRACTICE 10/06/19 12/23/19 Sami Liriano DO [address] [place] [address] PCP - General FAMILY PRACTICE 12/24/19 documented as of this encounter
--- OUTSIDE RECORDS SUMMARY | 2024-09-19 12:31 | XMS_ITS | Encounter Summary ---
Author Organization [facility] Address [facility]. [place], [place] [address] [place] [address] Care Team Providers Care Manager Gyn Name Role Phone Sami Liriano DO Primary Care Provider + Sami Liriano DO Primary Care Provider + Encounter Details Date Type Department Care Team (Latest Contact Info) Description 02/13/2016 Scan [employer] INFO SRVCS Scanned, Documents Social History Tobacco [...] on file Legal Sex Female 12:43 PM COOPER APPRENTICE Gender Identity Female 12/18/2021 6:31 AM CDT Sexual Orientation Straight 01/15/2022 6: 11 AM CDT documented as of this encounter Plan of Treatment Upcoming Encounters Date Type Department Care Team (Late st Contact Info) Description 10/09/2024 9:30 AM COOPER APPRENTICE Office Visit [facility] [phone] [facility] [address] [place] [address] 11/02/2024 10:20 AM COOPER APPRENTICE Office [facility] Family & Internal Medicine - [place] [address] [place] [address] Sami Liriano DO [address] [place] [address] documented as of this encounter Visit Diagnoses Not on filedocumented in this encounter Care Teams Manager Gyn Relationship Specialty [place] [address] [place] [address] PCP - General FAMILY PRACTICE 10/06/19 12/23/19 Sami Liriano DO [address] [place] [address] PCP - General FAMILY PRACTICE 12/24/19 documented as of this encounter
--- OUTSIDE RECORDS SUMMARY | 2024-09-19 12:31 | XMS_ITS | Encounter Summary ---
Author Organization [facility] Address [facility] [place], [place] [address] [place] [address] Care Team Providers Care Medicare Compliance Auditor Name Role Phone Sami Liriano DO Primary Care Provider + Sami Liriano DO Primary Care Provider + Encounter Details Date Type Department Care Team (Latest Contact Info) Description 11/30/2015 Scan [employer] INFO SRVCS Scanned, Documents Social History Tobacco [...] on file Legal Sex Female 12:43 PM IMMIGRATION ASSOCIATE Gender Identity Female 12/18/2021 6:31 AM CDT Sexual Orientation Straight 01/15/2022 6: 11 AM CDT documented as of this encounter Plan of Treatment Upcoming Encounters Date Type Department Care Team (Late st Contact Info) Description 10/09/2024 9:30 AM IMMIGRATION ASSOCIATE Office Visit [facility] [phone] Carlos Farris MD [facility] [address] [place] [address] 11/02/2024 10:20 AM IMMIGRATION ASSOCIATE Office Visit [facility] Family & Internal Medicine - [place] [address] [place] [address] Sami Liriano DO [address] [place] [address] documented as of this encounter Visit Diagnoses Not on filedocumented in this encounter Care Teams Medicare Compliance Auditor Relationship Specialty Start [place] [address] [place] [address] PCP - General FAMILY PRACTICE 10/06/19 12/23/19 Sami Liriano DO [address] [place] [address] PCP - General FAMILY PRACTICE 12/24/19 documented as of this encounter
--- OUTSIDE RECORDS SUMMARY | 2024-09-19 12:31 | XMS_ITS | Encounter Summary ---
Author Organization [facility] Address [address] [place] [address]. [place], [place] [address] [place] [address] Care Team Providers Care Athletic Coordinator Name Role Phone JaellowellSami cox DO Primary Care Provider + Sami Liriano DO Primary Care Provider + Reason for Visit * Reason Comments Stress Test (SCAN) Encounter Details Date Type Department Care Team (Late st Contact Info) Description 02/15/2015 Scan HEALTH INFO SRVCS Scanned, Documents Stress Test (SCAN) Social History Tobacco Use Types Packs/Day [...] on file Legal Sex Female 12:43 PM FIRE COORDINATOR Gender Identity Female 12/18/2021 6:31 AM [...] (Late Contact Info) Description 10/09/2024 9:30 AM FIRE COORDINATOR Office Visit [facility] [address] [place] [address] Carlos Farris MD Three [facility] Suite [facility] [place] [place] [address] 11/02/2024 10:20 AM FIRE COORDINATOR Office Visit [facility] Family & Internal Medicine - [place] [address] [place] [address] Sami Liriano DO [address] [place] [address] documented as of this encounter Procedures Procedure Name Priority Date/Time Associated Diagnosis Comments STRESS TEST (SCAN ORDER) Routine 02/15/2015 2:45 PM CDT documented in this encounter Results * STRESS TEST (02/15/2015 2:45 PM CDT) 02/15/2015 2:45 PM CDT us Documents Scanned SCANNING Edited Result - Final [facility] [place] documented in this encounter Visit Diagnoses Not on filedocumented in this encounter Care Teams Athletic Coordinator Relationship Specialty Start Date End Date Sami Liriano DO [address] [place] [address] PCP - General FAMILY PRACTICE 10/06/19 12/23/19 Sami Liriano DO [address] [place] [address] PCP - General FAMILY PRACTICE 12/24/19 documented as of this encounter
--- OUTSIDE RECORDS SUMMARY | 2024-09-19 12:32 | XMS_ITS | Encounter Summary ---
Author Organization [facility] Address [facility]. [place], [place] [address] [place] [address] Care Team Providers Care Major Appliance Assembly Supervisor Name Role Phone Sami Liriano DO Primary Care Provider + Saim Liriano DO Primary Care Provider + Encounter Details Date Type Department Care Team (Latest Contact Info) Description 07/02/2001 Scan [employer] INFO SRVCS Scanned, Documents Social History Tobacco [...] file Legal Sex Female 12:43 PM PATIENT CONSUMER MARKETER Gender Identity Female 12/18/2021 6:31 AM CDT Sexual Orientation Straight 01/15/2022 6: 11 AM CDT documented as of this encounter Plan of Treatment Upcoming Encounters Date Type Department Care Team (Late st Contact Info) Description 10/09/2024 9:30 AM PATIENT CONSUMER MARKETER Office Visit [facility] [address] Carlos Farris MD [facility] [address] [place] [address] 11/02/2024 10:20 AM PATIENT CONSUMER MARKETER Office Visit [facility] Family & Internal Medicine - [place] [address] [place] [address] Sami Liriano DO [address] [place] [address] documented as of this encounter Visit Diagnoses Not on filedocumented in this encounter Care Teams Major Appliance Assembly Supervisor Relationship Specialty [place] [address] [place] [address] PCP - General FAMILY PRACTICE 10/06/19 12/23/19 Sami Liriano DO [address] [place] [address] PCP - General FAMILY PRACTICE 12/24/19 documented as of this encounter
--- OUTSIDE RECORDS SUMMARY | 2024-09-19 13:30 | XMS_ITS | CONTINUITY OF CARE DOCUMENT ---
Author Name gabby pierre Address Unknown Organization [facility] Address [address] [place] [address] Phone [phone] Care Team Providers Care Skein Mercerizing Machine Operator Name Role Phone gabby pierre Unavailable Unavailable INSURANCE PROVIDERS Payer name Policy type / Coverage type [place] red libertarian ID [facility] Other [id number]
--- OUTSIDE RECORDS SUMMARY | 2024-09-19 19:35 | XMS_ITS | Encounter Summary ---
Author Organization [facility] Address [facility]. [place], [place] [address] [place] [address] Care Team Providers Care Drop Hammer Set Up Operator Name Role Phone Sami Gimenez DO Primary Care Provider + Reason for Visit * Reason Onset Date Comments Information 07/27/2024 Encounter Details Date Type Department Care Team (Late st Contact Info) Description 07/27/2024 Telephone [facility] Family & Internal Medicine [facility] [address] [place] [address] Sami Gimenez DO [address] [place] [address] Information Social History Tobacco Use Types Packs/Day Years Used Date Smoking Tobacco: Former Cigarettes 0.5 12 0 09/30/1964 - 09/30/1976 Passive Smoke Exposure: Never Smokeless Tobacco: Never Alcohol Use Standard Drinks/Week Comments Not Currently 0 (1 standard drink = 0.6 oz pur e alcohol) 2 cocktails on some Sundays [facility] Utilities Answer Date Recorded In the [...] any time in the past 12 m [facility], were you homeless or living in a chcf (including now)? No 02/08/2024 Comments No Sex and Gender Information Value Date Recorded Sex Assigned at Not on file Legal Sex Female 12:43 PM BALCONY WORKER Gender Identity Female 12/18/2021 6:31 AM [...] and she developed chills. She went to [facility] today. Negative for COVID, flu [...] st Contact Info) Description 10/09/2024 9:30 AM BALCONY WORKER Office Visit [facility] [address] Carlos Farris MD [facility] [address] [place] [address] 11/02/2024 10:20 AM BALCONY WORKER Office Visit [facility] Medical Group Family & Internal Medicine - [address] [address] Sami Gimenez DO [address] [place] [address] documented as of this encounter Goals Goal [...] Depression Total Score: 0 10/11/19 10:50 AM BALCONY WORKER documented as of this encounter Care Teams Drop Hammer Set Up Operator Relationship Specialty Start Date End Date Sami Gimenez DO [address] [place] [address] PCP - General FAMILY PRACTICE 12/24/19 documented as of this encounter
--- OUTSIDE RECORDS SUMMARY | 2024-09-19 19:35 | XMS_ITS | Encounter Summary ---
Author Organization [facility] Address [facility] [place], [place] [address] [place] [address] Care Team Providers Care Men'S Leather Dress Belt Maker Name Role Phone Sami Liriano DO Primary Care Provider + Reason for Visit * Reason Onset Date Comments Quality Gap Closure 06/15/2024 Record Request 06/15/2024 Encounter Details Date Type Department Care Team (Late st Contact Info) Description 06/15/2024 Telephone [facility] Group Family & Internal Medicine [place] [address] [place] [address] Sami Liriano DO [address] [place] [phone] Quality Gap Closure; Record Request Social History Tobacco Use Types Packs/Day Years Used Date Smoking Tobacco: Former Cigarettes 0.5 12 0 09/30/1964 - 09/30/1976 Passive Smoke Exposure: Never Smokeless Tobacco: Never Alcohol Use Standard Drinks/Week Comments Not Currently 0 (1 standard drink = 0.6 oz pur e alcohol) 2 cocktails on some Sundays [facility] Utilities Answer Date Recorded In the [...] any time in the past 12 m [facility], were you homeless or living in a fci (including now)? 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 file [...] Status No 02/08/2024 12:30 AM CDT Christa Hdogson RN Active * Do you have serious [...] - 06/15/2024 3:05 PM CDT Checking with [facility] for a recent DM eye exam report Requesting a 2nd time on 07/30/2024 Requesting a 3rd time on 08/31/2024 ELHEAD INSPECTOR documented in this encounter Plan of Treatment Upcoming Encounters Date Type Department Care Team (Late st Contact Info) Description 10/09/2024 9:30 AM BARRELHEAD INSPECTOR Office Visit [facility] [address] Carlos Farris MD Three [facility] [address] [place] [address] 11/02/2024 10:20 AM BARRELHEAD INSPECTOR Office Visit [facility] Group Family & Internal Medicine - [address] [address] Sami Liriano DO [address] [place] [address] documented as of this encounter Goals Goal [...] Total Score: 0 10/11/19 22 10:50 AM BARRELHEAD INSPECTOR documented as of this encounter Care Teams Men'S Leather Dress Belt Maker Relationship Specialty Start Date End Date Sami Liriano DO [address] [place] [address] PCP - General FAMILY PRACTICE 12/24/19 documented as of this encounter
--- OUTSIDE RECORDS SUMMARY | 2024-09-19 19:35 | XMS_ITS | Encounter Summary ---
Author Organization [facility] Address [facility]. [place], [place] [address] [place] [address] Care Team Providers Care Medical Territory Manager Name Role Phone Sami Liriano DO Primary Care Provider + Reason for Visit * Reason Onset Date Comments Medication 06/15/2024 Encounter Details Date Type Department Care Team (Late st Contact Info) Description 06/15/2024 Telephone [facility] Medical Group Family & Internal Medicine [facility] [address] [place] [address] Sami Liriano DO [address] [place] [address] Medication Social History Tobacco Use Types Packs/Day Years Used Date Smoking Tobacco: Former Cigarettes 0.5 12 0 09/30/1964 - 09/30/1976 Passive Smoke Exposure: Never Smokeless Tobacco: Never Alcohol Use Standard Drinks/Week Comments Not Currently 0 (1 standard drink = 0.6 oz pur e alcohol) 2 cocktails on some Sundays [facility] Utilities Answer Date Recorded In [...] any time in the past 12 m [facility], were you homeless or living in a alf (including now)? No 02/08/2024 Comments No Sex and Gender Information Value Date Recorded Sex Assigned at Not on file Legal Sex Female 12:43 PM OIL SCOUT Gender Identity Female 12/18/2021 6:31 AM CDT [...] would like something called to pharmacy. Pharmacy [facility] in [place]. documented in this encounter Plan of Treatment Upcoming Encounters Date Type Department Care Team (Late st Contact Info) Description 10/09/2024 9:30 AM OIL SCOUT Office Visit [facility] [phone] Carlos Farris MD Three [facility] Bl Suite [facility] [place] [address] 11/02/2024 10:20 AM OIL SCOUT Office Visit [facility] Medical Group Family & Internal Medicine - [address] [address] Sami Liriano DO [address] [place] [address] documented as of this encounter Goals Goal [...] Total Score: 0 10/11/19 22 10:50 AM OIL SCOUT documented as of this encounter Care Teams Medical Territory Manager Relationship Specialty Start Date End Date Sami Liriano DO [address] [place] [address] PCP - General FAMILY PRACTICE 12/24/19 documented as of this encounter
--- OUTSIDE RECORDS SUMMARY | 2024-09-19 19:35 | XMS_ITS | Encounter Summary ---
Author Organization [facility] Address [facility]. [place], [place] [address] [place] [address] Care Team Providers Care Casino Floor Runner Name Role Phone Sami Liriano Nicole AGUIAR [...] alcohol) 2 cocktails on some Sundays [facility] Utilities Answer Date Recorded In the past 12 months has e electric, gas, oil, or water [employer] threatened to shut off services in your [...] on file Legal Sex Female 12:43 PM TOP LIFT SCOURER Gender Identity Female 12/18/2021 6:31 AM CDT [...] st Contact Info) Description 10/09/2024 9:30 AM TOP LIFT SCOURER Office Visit [facility] [phone] Carlos Farris MD [facility] Suite [facility] [place] [address] 11/02/2024 10:20 AM TOP LIFT SCOURER Office Visit [facility] Family & Internal Medicine - [address] [address] Sami Liriano DO [address] [place] [address] documented as of this encounter Goals Goal [...] Total Score: 0 10/11/19 22 10:50 AM TOP LIFT SCOURER documented as of this encounter Care Teams Casino Floor Runner Relationship Specialty Start Date End Date Sami Liriano DO [address] [place] [address] PCP - General FAMILY PRACTICE 12/24/19 documented as of this encounter
--- OUTSIDE RECORDS SUMMARY | 2024-09-19 19:35 | XMS_ITS | Encounter Summary ---
Author Organization [facility] Address [facility]. [place], [place] [address] [place] [address] Care Team Providers Care Billing Services Manager Name Role Phone Sami Liriano Nicole AGUIAR [...] 2 cocktails on some Sundays [facility] Utilities Answer Date Recorded In the past 12 months has e electric, gas, oil, or water [employer] threatened to shut off services in your [...] time in the past 12 m [facility], were you homeless or living in a halfway (including now)? No 02/08/2024 Comments No Sex and Gender Information Value Date Recorded Sex Assigned at Not on file Legal Sex Female 12:43 PM COVER CUTTER Gender Identity Female 12/18/2021 6:31 AM [...] st Contact Info) Description 10/09/2024 9:30 AM COVER CUTTER Office Visit [facility]-[address] [phone] Carlos Farris MD [facility] Suite [facility] [place] [address] 11/02/2024 10:20 AM COVER CUTTER Office Visit [facility] Medical Group Family & Internal Medicine - [address] [address] Sami Liriano DO [address] [place] [address] documented as of this encounter Goals Goal [...] Total Score: 0 10/11/19 22 10:50 AM COVER CUTTER documented as of this encounter Care Teams Billing Services Manager Relationship Specialty Start Date End Date Sami Liriano DO [address] [place] [address] PCP - General FAMILY PRACTICE 12/24/19 documented as of this encounter
--- OUTSIDE RECORDS SUMMARY | 2024-09-19 19:35 | XMS_ITS | Encounter Summary ---
Author Organization [facility] Address [facility] [place], [place] [address] [place] [address] Care Team Providers Care Cloth Winder Machine Operator Name Role Phone Sami Liriano Primary Care Provider + Reason for Visit * Reason Onset Date Comments Medication Information 07/06/2024 Insurance will not cover soaan Encounter Details Date Type Department Care Team (Late st Contact Info) Description 07/06/2024 Telephone [facility] [address] Ashley Gaitan, MANAGER CLINICAL INFORMATICS Medication Information (Insurance will not cover soaanz) Social History Tobacco Use Types Packs/Day Years Used Date Smoking Tobacco: Former Cigarettes 0.5 12 0 09/30/1964 - 09/30/1976 Passive Smoke Exposure: Never Smokeless Tobacco: Never Alcohol Use Standard Drinks/Week Comments Not Currently 0 (1 standard drink = 0.6 oz pur e alcohol) 2 cocktails on some Sundays [facility] Utilities Answer Date Recorded In the [...] any time in the past 12 m [facility], were you homeless or living in a residential (including now)? 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 Not on file [...] st Contact Info) Description 10/09/2024 9:30 AM PAIRER SUBSTANDARD Office Visit [facility] [phone] Carlos Farris MD [facility] [address] [place] [address] 11/02/2024 10:20 AM PAIRER SUBSTANDARD Office Visit [facility] Medical Group Family & Internal Medicine [address] [address] Sami Liriano DO [address] [place] [address] documented as of this encounter Goals Goal [...] Total Score: 0 10/11/19 22 10:50 AM PAIRER SUBSTANDARD documented as of this encounter Care Teams Cloth Winder Machine Operator Relationship Specialty Start Date End Date Sami Liriano DO [address] [place] [address] PCP - General FAMILY PRACTICE 12/24/19 documented as of this encounter
--- OUTSIDE RECORDS SUMMARY | 2024-09-19 19:35 | XMS_ITS | Encounter Summary ---
Author Organization [facility] Address [facility]6 [facility]. [place], [place] [address] [place] [address] Care Team Providers Care Agency Sales Development Associate Name Role Phone Sami Liriano Nicole AGUIAR [...] e alcohol) 2 cocktails on some Sundays [facility] Utilities Answer Date Recorded In the past 12 months has e electric, gas, oil, or water [employer] threatened to shut off services in your [...] any time in the past 12 m [facility], were you homeless or living in a halfway (including now)? No 02/08/2024 Comments No Sex and Gender Information Value Date Recorded Sex Assigned at Not on file Legal Sex Female 12:43 PM CAD DRAFTER Gender Identity Female 12/18/2021 6:31 AM CDT [...] Assessment Author Status No 02/08/2024 12:30 AM Chrisat Jensen RN Active * Do you have [...] st Contact Info) Description 10/09/2024 9:30 AM CAD DRAFTER Office Visit [facility]-[address] [phone] Carlos Farris MD [facility] Suite [facility] [place] [address] 11/02/2024 10:20 AM CAD DRAFTER Office Visit [facility] Medical Group Family & Internal Medicine - [address] [phone] Sami Liriano DO [address] [place] [address] documented as of this encounter Goals Goal [...] Total Score: 0 10/11/19 22 10:50 AM CAD DRAFTER documented as of this encounter Care Teams Agency Sales Development Associate Relationship Specialty Start Date End Date Sami Liriano DO [address] [place] [address] PCP - General FAMILY PRACTICE 12/24/19 documented as of this encounter
--- OUTSIDE RECORDS SUMMARY | 2024-09-19 19:35 | XMS_ITS | Encounter Summary ---
Author Organization [facility] Address [facility]ly [facility]. [place], [place] [address] [place] [address] Care Team Providers Care Shirt Finisher Name Role Phone Sami Liriano Primary Care Provider + Encounter Details Date Type Department Care Team (Late st Contact Info) Description 07/06/2024 Orders Only [facility], [address] [place], [place] [phone] Carlos Farris MD Three [facility] [address] [place], [place] [phone] Social History Tobacco Use Types Packs/Day Years Used Date Smoking Tobacco: Former Cigarettes 0.5 12 0 09/30/1964 - 09/30/1976 Passive Smoke Exposure: Never Smokeless Tobacco: Never Alcohol Use Standard Drinks/Week Comments Not Currently 0 (1 standard drink = 0.6 oz pur e alcohol) 2 cocktails on some Sundays [facility] Utilities Answer Date Recorded In [...] any time in the past 12 m [facility], were you homeless or living in a nursing home (including now)? 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 Not on [...] st Contact Info) Description 10/09/2024 9:30 AM FISHER LAMPARA NET Office Visit [facility] [phone] Carlos Farris MD [facility] [address] [place] [address] 11/02/2024 10:20 AM FISHER LAMPARA NET Office Visit [facility] Family & Internal Medicine - [address] [phone] Sami Liriano DO [address] [place] [address] documented as of this encounter Goals Goal [...] Total Score: 0 10/11/19 22 10:50 AM FISHER LAMPARA NET documented as of this encounter Care Teams Shirt Finisher Relationship Specialty Start Date End Date Sami Liriano DO [address] [place] [address] PCP - General FAMILY PRACTICE 12/24/19 documented as of this encounter
--- OUTSIDE RECORDS SUMMARY | 2024-09-19 19:35 | XMS_ITS | Encounter Summary ---
Author Organization [facility] Address [facility]. [place], [place] [address] [place] [address] Care Team Providers Care Dining Room Hostess Name Role Phone Sami Liriano Primary Care Provider + Reason for Visit * Reason Onset Date Comments Orders 07/06/2024 Encounter Details Date Type Department Care Team (Late st Contact Info) Description 07/06/2024 Telephone [facility], [address] [place], [place] [phone] Carlos Farris MD [facility] [address] [place] [address] Orders Social History Tobacco Use [...] any time in the past 12 m [facility], were you homeless or living in a snf (including now)? 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 Not on file [...] st Contact Info) Description 10/09/2024 9:30 AM HVAC TECHNICIAN RESIDENTIAL Office Visit [facility] [phone] Carlos Farris MD [facility] [address] [place] [address] 11/02/2024 10:20 AM HVAC TECHNICIAN RESIDENTIAL Office Visit [facility] Family & Internal Medicine - [address] [phone] Sami Liriano DO [address] [place] [address] documented as of this encounter Goals Goal [...] Total Score: 0 10/11/19 22 10:50 AM HVAC TECHNICIAN RESIDENTIAL documented as of this encounter Care Teams Dining Room Hostess Relationship Specialty Start Date End Date Sami Liriano DO [address] [place] [address] PCP - General FAMILY PRACTICE 12/24/19 documented as of this encounter
--- OUTSIDE RECORDS SUMMARY | 2024-09-19 19:35 | XMS_ITS | CONTINUITY OF CARE DOCUMENT ---
Author Name gabby pierre Address Unknown Organization [facility] Address [address] [facility] [address] [place] [address] Phone [phone] Care Team Providers Care And Drying Supervisor Cooking Casing Name Role Phone gabby pierre Unavailable Unavailable INSURANCE PROVIDERS Payer name Policy type / Coverage type Etoile red democrat ID [facility] Other [id number]
--- OUTSIDE RECORDS SUMMARY | 2024-09-19 19:35 | XMS_ITS | Encounter Summary ---
Author Organization [facility] Address [address] [place] [address]. [place], [place] [address] [place] [address] Care Team Providers Care Urban Forester Name Role Phone Romeojen Sami Nicole AGUIAR [...] IV OFFICE/OUTPT VISIT,EST,LEVL V Carlos Farris MD [facility] [address] [place], [place] [address] Phone: tel: fax: Referral ID Status Reason Start Date Expiration Date Visits Requested Visits Authorized [id number] New Request Specialty Services 07/06/2024 07/06/2025 1 1 Scheduling Instructions Eli Olson MD [phone] (FAX) [facility] Reason for Visit * Reason Comments Follow Up 2 month Encounter Details Date Type Department Care Team ([facility] Contact Info) Description 07/06/2024 12:30 PM CDT [facility] [address] [place] [address] Carlos Farris MD Three [facility] [address] [place] [address] Follow Up (2 month) Social History Tobacco Use Types Packs/Day Years Used Date Smoking Tobacco: Former Cigarettes 0.5 12 0 09/30/1964 - 09/30/1976 Passive Smoke Exposure: Never Smokeless Tobacco: Never Alcohol Use Standard Drinks/Week Comments Not Currently 0 (1 standard drink = 0.6 oz pur e alcohol) 2 cocktails on some Sundays [facility] Utilities Answer Date Recorded In the past 12 months has e [employer], gas, oil, or water [employer] threatened to shut off services in your [...] any time in the past 12 m [facility], were you homeless or living in a detention (including now)? No 02/08/2024 Comments No Sex and Gender Information Value Date Recorded Sex Assigned at Not on file Legal Sex Female 12:43 PM PROCED TECH Gender Identity Female 12/18/2021 6:31 AM [...] from the original note were not included. [place], [place] [address] Cardiology Consult PCP: Sami Liriano DO Cardiac [...] up almost 10 lbs. 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 History Ms. Jolly [...] of left knee 11/08/2019 Depression Diabetes mellitus ([facility]) GERD (gastroesophageal reflux disease) Hypertension Overactive bladder Positive colorectal cancer screening using Cologuard test 04/19/2020 Added automatically from request for surgery [id number] Past Surgical History: Procedure Laterality Date ANKLE SURGERY left SECTION COLONOSCOPY N/A 04/27/2020 COLONOSCOPY WITH BIOPSY X 3 performed by Joel Keenan MD at [facility] OR COLONOSCOPY N/A 11/20/2023 Colonoscopy with Polypectomies performed by Joel Keenan MD at [facility] OR EGD EYE SURGERY FRACTURE SURGERY HERNIA [...] by mouth daily. 10/21/23 Sami Liriano DO Ropdace-Uutmkyeprim-Gyjgqwexsv (BREZTRI AEROSPHERE) 160-9-4.8 MCG/ACT Aerosol Inhale 2 [...] Assessment/Plan HFpEF HLD HTN BOONE Former Smoker MOR HFpEF: hospitalized in January 2024, Echocardiogram with [...] will continue Aldactone 25 mg daily, and [id number] mg daily. Has h/o MOR. not on CPAP. Will refer to sleep medicine. Follow-up: 3 months Thank you for allowing me to participate in the care of this patient. Please reach out with any questions. Carlos Farris MD Portions of this note were dictated using [employer] speech recognition software. Occasional wrong wordor sound-alike substitutions may have occurred due to the inherent limitations of voice recognition software. Please read the chart carefully and recognize, using context, where the substitutions may have occurred. documented in this encounter Plan of Treatment Upcoming Encounters Date Type Department Care Team (Late st Contact Info) Description 10/09/2024 9:30 AM PROCED TECH Office Visit [facility] [phone] Carlos Farris MD [facility] [address] [place] [address] 11/02/2024 10:20 AM PROCED TECH Office Visit [facility] Family & Internal Medicine - [address] [phone] Sami Liriano DO [address] [place] [address] Scheduled Orders Name Type Priority Associated Diagnoses Orde r Schedule BASIC METABOLIC PANEL Lab Routine Acute on chronic heart failure with preserved ejection fraction ([facility]) Expected: 07/06/2024, Expires: 07/06/2025 Scheduled Referrals [...] chronic heart failure with preserved ejection fraction ([facility]) Hypertension associated with type 2 diabetes mellitus ([facility]) Chronic diastolic congestive heart failure ([facility]) Chronic diastolic heart failure Dyslipidemia Other and unspecified hyperlipidemia MOR (obstructive sleep apnea) Obstructive sleep apnea (adult) (pediatric) documented in this encounter Additional Health Concerns Assessment Noted Time PHQ-9 Depression Total Score: 0 10/11/19 22 10:50 AM PROCED TECH documented as of this encounter Care Teams Urban Forester Relationship Specialty Start Date End Date Sami Liriano DO [address] [place] [address] PCP - General FAMILY PRACTICE 12/24/19 documented as of this encounter
--- OUTSIDE RECORDS SUMMARY | 2024-09-19 19:35 | XMS_ITS | Clinical Summary ---
Author Organization [facility] Address [facility]. [place], [place] [address] [place] [address] Care Team Providers Care Field Sales Agent Name Role Phone Sami Liriano Nicole [...] of major depressive disorder without prior episode ([facility]) TAKE 1 TABLET BY MOUTH EVERY [...] MG/3ML) 0.083% nebulizer solutionIndicatio ns:Mucopurulent chronic bronchitis ([facility]),Chronic bronchitis, unspecified chronic bronchitis type ([facility] HHS/[facility]),Bronchit is,Wheezing Take 3 mLs (2.5 mg total) [...] complication, without long-term current use of insulin ([facility]) take 1 tablet by mouth every day with breakfast 90 tablet 024 Active spironolactone (ALDACTONE) 25 MG tabletIndications :Hypertension associated with type 2 diabetes mellitus ([facility]),Chronic diastolic congestive heart failure ([facility]) Take 1 tablet (25 mg total) by mouth daily. Active COMPRESSION STOCKINGS, DME,Indications:L ocalized edema APPLY IN THE MORNING AND REMOVE IN THE EVENING. KNEE HIGH MEDIUM COMPRESSION DX: EDEMA 1 Package 1 Active torsemide (DEMADEX) 20 MG tabletIndications :Acute on chronic heart failure with preserved ejection fraction ([facility] HHS/HCC) Take 2 tablets (40 mg total) [...] AEROSOL POWDER, BREATH ACTIVATEDIndicati ons:Mucopurulent chronic bronchitis ([facility]) Inhale 1 puff into the lungs daily. 60 each 2 Active azithromycin (ZITHROMAX) 250 MG tabletIndications :Mucopurulent chronic bronchitis ([facility] HHS/HCC) Take 2 tabs daily for one day, then take 1 tab daily 6 tablet Active tirzepatide (MOUNJARO) 2.5 MG/0.5ML injectionIndicati ons:Type 2 diabetes mellitus without complication, without long-term current use of insulin ([facility]),Stage 3a chronic kidney disease ([facility] HHS/HCC),Hyperten dandre associated with type 2 diabetes mellitus ([facility] HHS/HCC),Chronic heart failure with preserved ejection fraction ([facility]) ADMINISTER 2.5 MG UNDER THE SKIN EVERY 7 DAYS FOR DIABETES 2 mL 1 Active tirzepatide (MOUNJARO) 2.5 MG/0.5ML injectionIndicati ons:Diabetes Mellitus Inject 2.5 mg into the skin every 7 days. Indications: Diabetes 2 mL 024 2023 Discontinued Active Problems Problem Noted Date Diagnosed Date CHF (congestive heart failure) ([facility] HHS/HCC) 02/07/2024 Body mass index (BMI) 45.0-49.9, adult ([facility]) 11/18/2023 Current moderate episode of major depressive disorder without prior episode ([facility]) 11/18/2023 Hx of adenomatous colonic polyps 10/03/2023 Family hx of colon cancer 10/03/2023 Morbid (severe) obesity due to excess calories ([facility]) 11/30/2022 Generalized osteoarthritis of multiple sites Inflammatory arthritis 04/19/2022 Urinary tract infection 04/19/2022 BMI 45.0-49.9, adult ([facility]) 2 Hyperlipidemia associated wi th type 2 diabetes mellitus ([facility]) 07/31/2021 [place]YS[place] positive 06/16/2021 Stage 3a chronic kidney disease ([facility] ) 06/16/2021 Severe obstructive sleep apnea 06/16/2021 Pharyngoesophageal dysphagia 04/19/2020 Overview (04/19/2020): Added automatically from request for surgery [id number] Overactive bladder 03/03/2020 Depression 03/03/2020 Hypertension associated with type 2 diabetes mellitus ([facility]) 11/08/2019 Arthritis of left knee 11/08/2019 Resolved Problems Problem Noted Date Diagnosed Date Resolved Date Screening for colon cancer 10/03/2023 0 10/07/2023 Screening for colon cancer 10/03/2023 0 11/25/2023 Counseling on health promoti on and disease prevention 04/19/2022 04/23/2022 Positive colorectal cancer s creening using Cologuard test 04/19/2020 01/28/2024 Overview (04/19/2020): Added automatically from request for surgery [id number] Alopecia 11/08/2019 04/30/2024 Encounters Date Type Department Care Team Description 08/12/2024 Telephone [facility], [address] [address] Mikayla Casarez RN Results 07/30/2024 10:20 AM CDT Office Visit [facility] [address] [phone] Sami Liriano DO Diabetes (3 month ); Cough (The patient has had a congestion for 6 days.) 07/30/2024 Travel 07/27/2024 Telephone [facility] [address] [address] Sami Liriano DO Information 07/06/2024 12:30 PM CDT Office Visit [facility], [address] [address] Carlos Farris MD Follow Up (2 month) 07/06/2024 Telephone [facility], [address] [address] Ashley Gaitan CMA Medication Information ([facility]) 07/06/2024 Telephone [facility], [address] [address] Carlos Farris MD Orders 07/06/2024 Orders Only [facility], [address] [address] Carlos Farris MD 07/06/2024 Travel from Last [...] e alcohol) 2 cocktails on some Sundays [facility] Utilities Answer Date Recorded In the past 12 months has e [employer], gas, oil, or water [employer] threatened to shut off services in your [...] on file Legal Sex Female 12:43 PM RACK LOADER Gender Identity Female 12/18/2021 6:31 AM CDT [...] st Contact Info) Description 10/09/2024 9:30 AM RACK LOADER Office Visit [facility] [phone] Carlos Farris MD [facility] [address] [place] [address] 11/02/2024 10:20 AM RACK LOADER Office Visit [facility] Family & Internal Medicine - [place] [address] [place] [phone] Sami Liriano DO [facility] [place] [address] Health Maintenance Due Date Last Done Comments [...] Chávez RN Medical Devices Implanted Type Area Reel Hooker Device Identifier Shelf Expiration Date Model / Serial / Lot Knee Shoulder Procedures Procedure Name Priority Date/Time Associated Diagnosis Comments BASIC METABOLIC PANEL Routine 07/30/2024 11:49 AM CDT Type 2 diabetes mellitus without complication, without long-term current use of insulin ([facility] HHS/HCC) VENIPUNC ARM DRAW Routine 07/30/2024 [...] HHS/HCC) LIPID PANEL Routine 11/28/2023 3:02 PM RACK LOADER Type 2 diabetes mellitus with other circulatory [...] 136 - 145 MMOL/L 07/30/2024 7:38 PM [facility] POTASSIUM S/P/B 3.9 3.5 - 5.1 MMOL/L 07/30/2024 7:38 PM [facility] CHLORIDE S/P/B 104 98 - 107 MMOL/L 07/30/2024 7:38 PM T [facility] CO2 29.6 21 - 32 MMOL/L 07/30/2024 7:38 PM T [facility] GLUCOSE 109(H) 70 - 99 MG/DL 07/30/2024 7:38 PM [facility] BUN 22(H) 7 - 18 MG/DL 07/30/2024 7:38 PM [facility] CREATININE S/P/B 1.21(H) 0.55 - 1.02 MG/DL 07/30/2024 7:38 PM [facility] CALCIUM S/P/B 9.4 8.4 - 10.5 MG/DL 07/30/2024 7:38 PM [facility] ANION GAP 9.4 5 - 15 MMOL/L 07/30/2024 7:38 PM [facility] Comment:REFERENCE RANGE NOT ESTABLISHED OSMOLALITY (CALC) 300 MOSM/KG 024 7:38 PM T [facility] Comment:REFERENCE RANGE NOT ESTABLISHED GFR ESTIMATE 48(L) >90 ML/MIN/1. 73 M2 07/30/2024 7:38 PM [facility] GFR NOTES GFR REFERENCE S: 07/30/2024 7:38 PM [facility] Comment: THE ESTIMATED GFR IS CALCULATED [...] Sami Liriano DO LABORATORY Final Re sult [facility] [address] [place] [address], * HEMOGLOBIN, GLYCOSYLATED (07/30/2024) HGB A1C 6.1 % [facility] 07/30/2024 Sami Liriano DO LABORATORY Final Re sult Performing Organization Address City/[facility]/ZIP Co de Phone Number [facility] [address] [place] [address], * LIPID PANEL (11/28/2023 3:02 PM RACK LOADER) CHOLESTEROL 164 <200 MG/DL 11/28/2023 8:19 PM RACK LOADER [facility] TRIGLYCERIDES 115 <150 MG/DL 11/28/2023 8:19 PM RACK LOADER [facility] HDL 67 >40 MG/DL 11/28/2023 8:19 PM RACK LOADER [facility] LDL-C 74 <100 MG/DL 11/28/2023 8:19 PM RACK LOADER [facility] VLDL CALCULATION 23 5 - 28 MG/DL 11/28/2023 8:19 PM RACK LOADER [facility] CHOL/HDL RATIO 2.4 0.0 - 4.0 11/28/2023 8:19 PM RACK LOADER [facility] LDL/HDL 1.1 0.41 - 2.13 11/28/2023 8:19 PM RACK LOADER [facility] NON HDL CHOLESTEROL 97 <140 MG/DL 11/28/2023 8:19 PM RACK LOADER [facility] 11/28/2023 3:02 PM RACK LOADER Sami Liriano DO LABORATORY Final Re sult Performing Organization Address City/[facility]/ZIP Co de Phone Number [facility] [address] [place] [address], [place] [phone] * MAMMOGRAM GENERIC (09/24/2023) Anatomical Region Laterality Modality Other 09/24/2023 [facility] Scanned SCANNING Final Resu lt * DIABETIC RETINOPATHY EXAM (NEGATIVE)(SCAN) (04/26/2022) Documents Scanned SCANNING Final Result Performing Organization Address [facility] de Phone Number [facility] ONBASE * HEPATITIS C AB ([facility] ONLY) (04/19/2022 9:39 AM CDT) HEPATITIS C AB NON-REACTI VE NON-REACT CHELE 04/19/2022 6:57 PM CDT [facility] Comment: ANTIBODIES TO HCV NOT DETECTED. DOES NOT EXCLUDE THE POSSIBILITY OF EXPOSURE TO HCV. 04/19/2022 9:39 AM CDT Sami Liriano DO LABORATORY Final Re sult Performing Organization Address City/[facility] Co de Phone Number [facility] [address] [place] [address], [place] [phone] * BONE DENSITY GENERIC (02/28/2021) Anatomical Region Laterality Modality Other 02/28/2021 Narrative 02/28/2021 Ordered by an unspecified provider. us Documents Scanned SCANNING Final Result * COLONOSCOPY/EGD (04/27/2020) us Documents Scanned SCANNING Final Result [facility] from Last 3 Months or Most Recently Relevant to Health Maintenance Insurance Advance Directives * Full Code (Latest Code Status on File) Date Activated Date Inactivated Comments 02/07/2024 11:19 PM 02/12/2024 4:08 PM Care Teams Field Sales Agent Relationship Specialty Start Date End Date Sami Liriano DO [address] [place] [address] PCP - General FAMILY PRACTICE 12/24/19
--- OUTSIDE RECORDS SUMMARY | 2024-09-19 19:35 | XMS_ITS | Encounter Summary ---
Author Organization [facility] Address [facility]6 [facility]. [place], [place] [address] [place] [address] Care Team Providers Care Functional Tester Name Role Phone Sami Liriano DO Primary Care Provider + Reason for Referral * Procedure (Routine) - Authorized Specialty Diagnoses / Procedures Referred By Shereen t Referred To Contact Diagnoses Mucopurulent chronic bronchitis ([facility]) Procedures Complete PFT (pre/post Matheus, Lung Vol, Diff Capacity) (42896, 95136, 68090, 97649) Sami Liriano DO [address] [place] [address] Phone: tel: fax: [address] [address] Phone: tel: fax: Referral ID Status Reason Start Date Expiration Date V isits Requested Visits Authorized [id number] Authorized 07/30/2024 08/30/2025 1 1 Reason for Visit * Reason Comments Diabetes 3 month Cough The patient has had a congestion for 6 days. Encounter Details Date Type Department Care Team (Late st Contact Info) Description 07/30/2024 10:20 AM CDT Office Visit [facility] Family & Internal Medicine [address] [place] [address] Sami Liriano, [address] [place] [address] Diabetes (3 month ); Cough (The patient has had a congestion for 6 days.) Social History Tobacco Use Types Packs/Day Years Used Date Smoking Tobacco: Former Cigarettes 0.5 12 0 09/30/1964 - 09/30/1976 Passive Smoke Exposure: Never Smokeless Tobacco: Never Alcohol Use Standard Drinks/Week Comments Not Currently 0 (1 standard drink = 0.6 oz pur e alcohol) 2 cocktails on some Sundays [facility] [employer] Answer Date Recorded In the past 12 months has e [employer], gas, oil, or water [email or web address] threatened to shut off services in your [...] on file Legal Sex Female 12:43 PM RADIOLOGIC TECHNOLOGY PROGRAM DIRECTOR Gender Identity Female 12/18/2021 6:31 AM [...] Hypertension associated with type 2 diabetes mellitus ([facility]) Arthritis of left knee Overactive bladder Depression Pharyngoesophageal dysphagia ALLYSON positive Stage 3a chronic kidney disease ([facility]) Severe obstructive sleep apnea Hyperlipidemia associated with type 2 diabetes mellitus ([facility]) BMI 45.0-49.9, adult ([facility]) Generalized osteoarthritis of multiple sites Inflammatory arthritis Urinary tract infection Morbid (severe) obesity due to excess calories ([facility]) Hx of adenomatous colonic polyps Family hx of colon cancer Body mass index (BMI) 45.0-49.9, adult ([facility]) Current moderate episode of major depressive disorder without prior episode ([facility]) CHF (congestive heart failure) ([facility]) Past Medical History: Diagnosis Date Anxiety disorder, unspecified Arthritis Arthritis of left knee 11/08/2019 Depression Diabetes mellitus ([facility]) GERD (gastroesophageal reflux disease) Hypertension Overactive bladder Positive colorectal cancer screening using Cologuard test 04/19/2020 Added automatically from request for surgery [id number] Past Surgical History: Procedure Laterality Date ANKLE SURGERY left SECTION COLONOSCOPY N/A 04/27/2020 COLONOSCOPY WITH BIOPSY X 3 performed by Joel Keenan MD at [facility] OR COLONOSCOPY N/A 11/20/2023 Colonoscopy with Polypectomies performed by Joel Keenan MD at [facility] OR EGD EYE SURGERY FRACTURE [...] on file Occupational History 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 Indications: Diabetes Mucopurulent chronic bronchitis ([facility]) - Complete PFT (pre/post Olancha, Lung Vol, Diff Capacity) (40968, 70993, 04176, 88714); Future - Wkwvjtkfxak-Gccyqseel-Akiyqt (TRELEGY ELLIPTA) 200-62.5-25 MCG/ACT AEROSOL POWDER, BREATH ACTIVATED; Inhale 1 puff into the lungs daily. - azithromycin (ZITHROMAX) 250 MG tablet; Take 2 tabs daily for one day, then take 1 tab daily Stage 3a chronic kidney disease ([facility] HHS/HCC) - tirzepatide (MOUNJARO) 2.5 MG/0.5ML injection; Inject 2.5 mg into the skin every 7 days. Indications: Diabetes Hypertension associated with type 2 diabetes mellitus ([facility] HHS/HCC) - tirzepatide (MOUNJARO) 2.5 MG/0.5ML injection; Inject 2.5 mg into the skin every 7 days. Indications: Diabetes Chronic heart failure with preserved ejection fraction ([facility]HS/[facility]) - tirzepatide (MOUNJARO) 2.5 MG/0.5ML injection; Inject [...] if needed. Pt v/u. Sami Liriano DO OLOGIC TECHNOLOGY PROGRAM DIRECTOR documented in this encounter Plan of Treatment Upcoming Encounters Date Type Department Care Team (Late st Contact Info) Description 10/09/2024 9:30 AM RADIOLOGIC TECHNOLOGY PROGRAM DIRECTOR Office Visit [facility] [address] Carlos Farris MD [facility] [address] [place] [address] 11/02/2024 10:20 AM RADIOLOGIC TECHNOLOGY PROGRAM DIRECTOR Office Visit [facility] Family & Internal Medicine - [address] [place] [address] Sami Liriano DO [address] [place] [address] Scheduled Orders Name Type Priority Associated Diagnoses Orde r Schedule Complete PFT (pre/post Matheus, Lung Vol, Diff Capacity) (88396, 14047, 93251, 57479) PFT Routine Mucopurulent chronic bronchitis ([facility]) Expected: 07/30/2024, Expires: 07/30/2025 documented as of [...] without long-term current use of insulin ([facility]) VENIPUNC ARM DRAW Routine 07/30/2024 10: 57 AM CDT Type 2 diabetes mellitus without complication, without long-term current use of insulin ([facility] HHS/HCC) COLLECT.CAPILLARY (FNGR,HEEL,EAR) Routine 07/30/2024 10:30 AM CDT Type 2 diabetes mellitus without complication, without long-term current use of insulin ([facility] HHS/HCC) HEMOGLOBIN, GLYCOSYLATED Routine 07/30/2024 Type 2 diabetes mellitus without complication, without long-term current use of insulin ([facility]) documented in this encounter Results * (ABNORMAL) BASIC METABOLIC PANEL (07/30/2024 11:49 AM CDT) SODIUM S/P/B 143 136 - 145 MMOL/L 07/30/2024 7:38 PM CDT -[facility] POTASSIUM S/P/B 3.9 3.5 - 5.1 MMOL/L 07/30/2024 7:38 PM T [facility] CHLORIDE S/P/B 104 98 - 107 MMOL/L 07/30/2024 7:38 PM [facility] CO2 29.6 21 - 32 MMOL/L 07/30/2024 7:38 PM [facility] GLUCOSE 109(H) 70 - 99 MG/DL 07/30/2024 7:38 PM T [facility] BUN 22(H) 7 - 18 MG/DL 07/30/2024 7:38 PM [facility] CREATININE S/P/B 1.21(H) 0.55 - 1.02 MG/DL 07/30/2024 7:38 PM [facility] CALCIUM S/P/B 9.4 8.4 - 10.5 MG/DL 07/30/2024 7:38 PM [facility] ANION GAP 9.4 5 - 15 MMOL/L 07/30/2024 7:38 PM [facility] Comment:REFERENCE RANGE NOT ESTABLISHED OSMOLALITY (CALC) 300 MOSM/KG 024 7:38 PM [facility] Comment:REFERENCE RANGE NOT ESTABLISHED GFR ESTIMATE 48(L) >90 ML/MIN/1. 73 M2 07/30/2024 7:38 PM [facility] GFR NOTES GFR REFERENCE S: 07/30/2024 7:38 PM T [facility] Comment: THE ESTIMATED GFR IS CALCULATED [...] Final Re sult Performing Organization Address City/[facility] Co de Phone Number [facility] [address] [place] [address], [place] [phone] * HEMOGLOBIN, GLYCOSYLATED (07/30/2024) HGB A1C 6.1 % [facility] 07/30/2024 us Sami Liriano DO LABORATORY Final Re sult Performing Organization Address [facility] de Phone Number [facility] [address] [place] [address], [place] documented in this encounter Visit Diagnoses Diagnosis Type 2 diabetes mellitus without complication, without long-term current use of insulin ([facility])- Primary Mucopurulent chronic bronchitis ([facility] HHS/HCC) Mucopurulent chronic bronchitis Stage 3a chronic kidney disease ([facility]/HCC) Hypertension associated with type 2 diabetes mellitus ([facility]/HCC) Chronic heart failure with preserved ejection fraction ([facility]) documented in this encounter Additional Health Concerns Assessment Noted Time PHQ-9 Depression Total Score: 0 10/11/19 22 10:50 AM RADIOLOGIC TECHNOLOGY PROGRAM DIRECTOR documented as of this encounter Care Teams Functional Tester Relationship Specialty Start Date End Date Sami Liriano DO [address] [place] [address] PCP - General FAMILY PRACTICE 12/24/19 documented as of this encounter
--- OUTSIDE RECORDS SUMMARY | 2024-09-19 19:35 | XMS_ITS | Encounter Summary ---
Author Organization [place] Address [facility]. [place], [place] [address] [place] [address] Care Team Providers Care Non Morse Intercept Technician Name Role Phone Sami Liriano Nicole AGUIAR Primary Care Provider + Encounter Details Date Type Department Care Team (Late st Contact Info) Description 05/04/2024 Orders Only [facility] [address] [place], [place] [phone] Blaire Obrien FNP 3 [facility] [place] [address] [place], [place] [phone] Social History Tobacco Use Types Packs/Day Years [...] you homeless or living in a senior care (including now)? No 02/08/2024 Comments No Sex and Gender Information Value Date Recorded Sex Assigned at Not on file Legal Sex Female 12:43 PM AUTOMATION SALES MANAGER Gender Identity Female 12/18/2021 6:31 [...] st Contact Info) Description 10/09/2024 9:30 AM AUTOMATION SALES MANAGER Office Visit [facility] [address] Carlos Farris MD [facility] [address] [facility] [place] [address] 11/02/2024 10:20 AM AUTOMATION SALES MANAGER Office Visit [facility] Family & Internal Medicine - [address] [address] Sami Liriano DO [address] [place] [address] Scheduled Orders Name Type Priority Associated Diagnoses Orde r Schedule BASIC METABOLIC PANEL Lab Routine Hypertension associated with type 2 diabetes mellitus ([facility]) Expected: 05/04/2024, Expires: 05/04/2025 documented as of this encounter Goals Goal Patient Goal Type Associated Problems Recent Progress Patient-Stated? Author Patient will return to prior living situation and remain independent in ADLs upon discharge from hospital Lifestyle No Sylvia Ventura, RN documented as of this encounter Visit Diagnoses Diagnosis Hypertension associated with type 2 diabetes mellitus ([facility])- Primary documented in this encounter Additional Health Concerns Assessment Noted Time PHQ-9 Depression Total Score: 0 10/11/19 22 10:50 AM AUTOMATION SALES MANAGER documented as of this encounter Care Teams Non Morse Intercept Technician Relationship Specialty Start Date End Date Sami Liriano DO [address] [place] [address] PCP - General FAMILY PRACTICE 12/24/19 documented as of this encounter
--- OUTSIDE RECORDS SUMMARY | 2024-09-19 19:35 | XMS_ITS | Encounter Summary ---
Author Organization [facility] Address [facility]6 [facility]. [place], [place] [address] [place] [address] Care Team Providers Care Director Patient Accounting Name Role Phone Sami Liriano Primary Care Provider + Reason for Visit * Reason Comments Lipids 2 month follow up Encounter Details Date Type Department Care Team (Late st Contact Info) Description 05/04/2024 12:00 PM CDT [facility] [address] [place], [place] [phone] Blaire Obrien FNP 3 [facility] [place] [address] [place], [place] [phone] Lipids (2 month follow up) Social History Tobacco Use Types Packs/Day Years Used Date Smoking Tobacco: Former Cigarettes 0.5 12 0 09/30/1964 - 09/30/1976 Passive Smoke Exposure: Never Smokeless Tobacco: Never Alcohol Use Standard Drinks/Week Comments Not Currently 0 (1 standard drink = 0.6 oz pur e alcohol) 2 cocktails on some Sundays [facility] Utilities Answer Date Recorded In the [...] any time in the past 12 m [facility], were you homeless or living in a senior care (including now)? No 02/08/2024 Comments No Sex and Gender Information Value Date Recorded Sex Assigned at Not on file Legal Sex Female 12:43 PM OVEN TECHNICIAN Gender Identity Female 12/18/2021 6:31 AM [...] from the original note were not included. [place], [place] [address] Cardiology Consult PCP: Sami Liriano DO Cardiac [...] of left knee 11/08/2019 Depression Diabetes mellitus ([facility]) GERD (gastroesophageal reflux disease) Hypertension Overactive bladder Positive colorectal cancer screening using Cologuard test 04/19/2020 Added automatically from request for surgery [id number] Past Surgical History: Procedure Laterality Date ANKLE SURGERY left SECTION COLONOSCOPY N/A 04/27/2020 COLONOSCOPY WITH BIOPSY X 3 performed by Joel Keenan MD at [facility] OR COLONOSCOPY N/A 11/20/2023 Colonoscopy with Polypectomies performed by Joel Keenan MD at [facility] OR EGD EYE SURGERY FRACTURE SURGERY [...] by mouth daily. 10/21/23 Sami Liriano DO [facility]Pqpvaoeor[facility]j-Kmpsjmmtju ([facility]) 160-9-4.8 MCG/ACT Aerosol Inhale 2 [...] the day of the encounter. This includes lncf-kt-eakz and dcu-ghnk-sb-face time I provided on the day of the encounter & excludes time spent performing separately reportable services. Portions of this note were dictated using [employer] speech recognition software. Occasional wrong wordor sound-alike substitutions may have occurred due to the inherent limitations of voice recognition software. Please read the chart carefully and recognize, using context, where the substitutions may have occurred. documented in this encounter Plan of Treatment Upcoming Encounters Date Type Department Care Team (Late st Contact Info) Description 10/09/2024 9:30 AM OVEN TECHNICIAN [facility] [address] Carlos Farris MD [facility] [address] [place] [address] 11/02/2024 10:20 AM OVEN TECHNICIAN Office Visit [facility] Family & Internal Medicine - [address] [phone] Sami Liriano DO [address] [place] [address] documented as of this encounter Goals Goal Patient Goal Type Associated Problems Recent Progress Patient-Stated? Author Patient will return to prior living situation and remain independent in ADLs upon discharge from hospital Lifestyle Sylvia Carvajal, RN documented as of this encounter Visit Diagnoses Diagnosis Chronic diastolic congestive heart failure ([facility])- Primary Chronic diastolic heart failure Acute heart failure, unspecified heart failure type ([facility]) Essential (primary) hypertension Unspecified essential hypertension Dyslipidemia Other and unspecified hyperlipidemia Morbid obesity ([facility]CC [facility]HCC) Morbid obesity Rash Rash and other nonspecific skin eruption documented in this encounter Additional Health Concerns Assessment Noted Time PHQ-9 Depression Total Score: 0 10/11/19 22 10:50 AM OVEN TECHNICIAN documented as of this encounter Care Teams Director Patient Accounting Relationship Specialty Start Date End Date Sami Liriano DO [address] [place] [phone] PCP - General FAMILY PRACTICE 12/24/19 documented as of this encounter
--- OUTSIDE RECORDS SUMMARY | 2024-09-19 19:35 | XMS_ITS | Encounter Summary ---
Author Organization [facility] Address [facility]6 [facility] [place] [address] [place] [address] Care Team Providers Care Drycleaner Name Role Phone Sami Liriano Primary Care Provider + Reason for Visit * Reason Onset Date Comments Results 08/12/2024 Encounter Details Date Type Department Care Team (Late st Contact Info) Description 08/12/[address] [address] Mikayla Casarez, [place] [address] Results Social History Tobacco Use Types Packs/Day Years Used Date Smoking Tobacco: Former Cigarettes 0.5 12 0 09/30/1964 - 09/30/1976 Passive Smoke Exposure: Never Smokeless Tobacco: Never Alcohol Use Standard Drinks/Week Comments Not Currently 0 (1 standard drink = 0.6 oz pur e alcohol) 2 cocktails on some Sundays [facility] Utilities Answer Date Recorded In [...] any time in the past 12 m [facility], were you homeless or living in a detention (including now)? No 02/08/2024 Comments No Sex and Gender Information Value Date Recorded Sex Assigned at Not on file Legal Sex Female 12:43 PM CHEMICAL EQUIPMENT CONTROLLER Gender Identity Female 12/18/2021 6:31 AM [...] doing Great. That the diuretics are working. ICAL EQUIPMENT CONTROLLER * Mikayla Casarez RN - 08/20/2024 9:31 AM CST Called patient. Left message for pt to return my call. Office number and extension provided. ICAL EQUIPMENT CONTROLLER * Mikayla Casarez RN - 08/18/2024 2:03 PM CST Received a return call from pt. Urinating frequently. Swelling unchanged. She states some days, sheloses wt. But states other days, she gains it back. Today swelling is not bad. She states she has not gained any wt. In the last couple of days. Overall pt thinks the increased dose is working. ICAL EQUIPMENT CONTROLLER * Mikayla Casarez RN - 08/18/2024 12:19 PM CST Called pt. Left messages for her to return my call. Office number and extension provided. ICAL EQUIPMENT CONTROLLER * Mikayla Casarez RN - 08/13/2024 1:36 PM CST Called pt. Left message for pt to return my call. Office number and extension provided. ICAL EQUIPMENT CONTROLLER * Mikayla Casarez RN - 08/12/2024 3:22 PM CST Images from the original note were not included. MD Mikayla Austin RN Labs have been reviewed. Can you ask her how her swelling is doing on the higher dose of torsemide. Called pt. Left message for pt to return my call. Office number and extension provided. ICAL EQUIPMENT CONTROLLER documented in this encounter Plan of Treatment Upcoming Encounters Date Type Department Care Team (Late st Contact Info) Description 10/09/2024 9:30 AM CHEMICAL EQUIPMENT CONTROLLER Office Visit [facility] [phone] Carlos Farris MD [facility] [address] [place] [address] 11/02/2024 10:20 AM CHEMICAL EQUIPMENT CONTROLLER Office Visit [facility] Family & Internal Medicine - [address] [place] [phone] Sami Liriano DO [address] [place] [address] documented as of this encounter Goals Goal [...] Total Score: 0 10/11/19 22 10:50 AM CHEMICAL EQUIPMENT CONTROLLER documented as of this encounter Care Teams Drycleaner Relationship Specialty Start Date End Date Sami Liriano DO [address] [place] [address] PCP - General FAMILY PRACTICE 12/24/19 documented as of this encounter
--- OUTSIDE RECORDS SUMMARY | 2024-09-19 19:36 | XMS_ITS | Encounter Summary ---
Author Organization [facility] Address [facility]6 [facility]. [place], [place] [address] [place] [address] Care Team Providers Care Mortgage Or Loan Underwriter Name Role Phone Sami Liriano DO Primary Care Provider + Encounter Details Date Type Department Care Team (Late st Contact Info) Description 03/31/2024 DirectLawt Message Enc [facility] Family & Internal Medicine [address] [place] [phone] Sami Liriano DO [address] [place], [place] [phone] itching Social History Tobacco Use Types Packs/Day [...] were you homeless or living in a group home (including now)? No 02/08/2024 Comments No Sex and Gender Information Value Date Recorded Sex Assigned at Not on file Legal Sex Female 12:43 PM EMISSIONS INSPECTOR Gender Identity Female 12/18/2021 6:31 AM [...] st Contact Info) Description 10/09/2024 9:30 AM EMISSIONS INSPECTOR Office [facility] [address] Carlos Farris MD [facility] [address] [place] [address] 11/02/2024 10:20 AM EMISSIONS INSPECTOR Office Visit [facility] Family & Internal Medicine - [address] [address] Sami Liriano, [address] [place] [address] documented as of this encounter Goals Goal [...] Total Score: 0 10/11/19 22 10:50 AM EMISSIONS INSPECTOR documented as of this encounter Care Teams Mortgage Or Loan Underwriter Relationship Specialty Start Date End Date Sami Liriano DO [address] [place] [phone] PCP - General FAMILY PRACTICE 12/24/19 documented as of this encounter
--- OUTSIDE RECORDS SUMMARY | 2024-09-19 19:36 | XMS_ITS | Encounter Summary ---
Author Organization [facility] Address [facility]6 [facility]. [place], [place] [address] [place] [address] Care Team Providers Care Electric Motor Repairman Name Role Phone Sami Liriano DO Primary Care Provider + Encounter Details Date Type Department Care Team (Late st Contact Info) Description 03/24/2024 10:20 AM CDT Laboratory Only [facility] Family & Internal Medicine [facility] [address] [place] [address] Sami Liriano DO [facility] [place], [place] [id number] Social History Tobacco Use Types Packs/Day Years [...] any time in the past 12 m [facility], were you homeless or living in a prison (including now)? No 02/08/2024 Comments No Sex and Gender Information Value Date Recorded Sex Assigned at Not on file Legal Sex Female 12:43 PM SNOWMAKER Gender Identity Female 12/18/2021 6:31 AM CDT [...] st Contact Info) Description 10/09/2024 9:30 AM SNOWMAKER Office Visit [facility] [phone] Carlos Farris MD [facility] Suite [facility] [place] [address] 11/02/2024 10:20 AM SNOWMAKER Office Visit [facility] Medical Group Family & Internal Medicine - [address] [address] Sami Liriano, [address] [place] [address] documented as of this encounter Goals Goal [...] - 10.80 x10'3/uL 03/24/2024 3:00 PM CDT [facility] RBC 4.55 4.10 - 5.40 x10'6/uL 03/24/2024 3:00 PM CDT -[facility] HGB 12.8 12.0 - 16.0 G/DL 03/24/2024 3:00 PM CDT [facility] HCT 39.0 36.0 - 47.0 % 03/24/2024 3:00 PM CDT [facility] MCV 85.7 78.0 - 100.0 FL 03/24/2024 3:00 PM CDT -[facility] MCH 28.1 27.0 - 31.0 PG 03/24/2024 3:00 PM CDT [facility] MCHC 32.8(L) 33.0 - 36.0 G/DL 03/24/2024 3:00 PM CDT [facility] RDW 14.5 11.5 - 14.5 % 03/24/2024 3:00 PM CDT [facility] PLT 274 150 - 350 x10'3/uL 03/24/2024 3:00 PM CDT [facility] MPV 10.0 7.4 - 10.4 FL 03/24/2024 3:00 PM CDT [facility] DIFFERENTIAL TYPE AUTOMATED DIFFERENTIAL 03/24/2024 3:00 PM CDT [facility] NEUTROPHILS % 54.7 % 03/24/2024 3:00 PM CDT [facility] LYMPHOCYTES % 35.0 % 03/24/2024 3:00 PM CDT [facility] MONOCYTES % 8.2 % 03/24/2024 3:00 PM CDT [facility] EOSINOPHILS % 1.6 % 03/24/2024 3:00 PM CDT [facility] BASOPHILS % 0.3 % 03/24/2024 3:00 PM CDT [facility] IMMATURE GRANS % 0.2 % 03/24/2024 3:00 PM CDT [facility] ABS. NEUTROPHILS 5.51 1.60 - 8.30 x10'3/uL 03/24/2024 3:00 PM CDT [facility] ABS. LYMPHOCYTES 3.52 0.80 - 4.70 x10'3/uL 03/24/2024 3:00 PM CDT [facility] ABS. MONOCYTES 0.83 0.00 - 1.50 x10'3/uL 03/24/2024 3:00 PM CDT [facility] ABS. EOSINOPHILS 0.16 0.00 - 0.40 x10'3/uL 03/24/2024 3:00 PM CDT [facility] ABS. BASOPHILS 0.03 0.00 - 0.20 x10'3/uL 03/24/2024 3:00 PM CDT [facility] ABS. IMMATURE GRANULOCYTES 0.02 0.00 - 0.03 x10'3/uL 03/24/2024 3:00 PM CDT [facility] 03/24/2024 10:5 6 AM CDT Sami Liriano DO LABORATORY Final Re sult [facility] [address] [place] [address], * (ABNORMAL) COMPREHENSIVE METABOLIC PANEL (03/24/2024 10:56 AM CDT) Pathologist [facility] SODIUM S/P/B 142 136 - 145 MMOL/L 03/24/2024 3:47 PM CDT [facility] POTASSIUM S/P/B 4.6 3.5 - 5.1 MMOL/L 03/24/2024 3:47 PM CDT [facility] CHLORIDE S/P/B 105 98 - 107 MMOL/L 03/24/2024 3:47 PM CDT [facility] CO2 28.0 21 - 32 MMOL/L 03/24/2024 3:47 PM CDT [facility] GLUCOSE 118(H) 70 - 99 MG/DL 03/24/2024 3:47 PM CDT [facility] BUN 34(H) 7 - 18 MG/DL 03/24/2024 3:47 PM CDT [facility] CREATININE S/P/B 1.35(H) 0.55 - 1.02 MG/DL 03/24/2024 3:47 PM CDT [facility] CALCIUM S/P/B 9.3 8.4 - 10.5 MG/DL 03/24/2024 3:47 PM CDT [facility] BILIRUBIN TOTAL S/P/B 1.7(H) 0.2 - 1.0 MG/DL 03/24/2024 3:47 PM CDT [facility] ALKALINE PHOSPHATASE S/P/B 85 55 - 142 U/L 03/24/2024 3:47 PM CDT [facility] AST 15 15 - 37 U/L 03/24/2024 3:47 PM CDT [facility] ALT 21 14 - 59 U/L 03/24/2024 3:47 PM CDT [facility] TOTAL PROTEIN S/P/B 7.3 6.4 - 8.2 G/DL 03/24/2024 3:47 PM CDT [facility] ALBUMIN S/P/B 4.0 3.4 - 5.0 G/DL 03/24/2024 3:47 PM CDT [facility] ANION GAP 9.0 5 - 15 MMOL/L 03/24/2024 3:47 PM T [facility] Comment:REFERENCE RANGE NOT ESTABLISHED OSMOLALITY (CALC) 303 MOSM/KG 024 3:47 PM CDT [facility] Comment:REFERENCE RANGE NOT ESTABLISHED GFR ESTIMATE 42(L) >90 ML/MIN/1. 73 M2 03/24/2024 3:47 PM CDT [facility] GFR NOTES GFR REFERENCE S: 03/24/2024 3:47 PM T [facility] Comment: THE ESTIMATED GFR IS [...] Performing Organization Address City/[facility]/ZIP Co de Phone Number [facility] [address] [place] [address], [place] [phone] * MAGNESIUM (03/24/2024 10:56 AM CDT) MAGNESIUM 2.0 1.8 - 2.4 MG/DL 03/24/2024 3:47 PM CDT [facility] 03/24/2024 10:5 6 AM CDT Sami Liriano DO LABORATORY Final Re sult Performing Organization Address City/[facility]/ZIP Co de Phone Number [place] [id number] [place] [address], [place] [phone] documented in this encounter Visit Diagnoses Diagnosis Acute on chronic heart failure with preserved ejection fraction ([facility] H[facility]/HCC) Acute heart failure, unspecified heart failure type ([facility]) Renal failure Renal failure, unspecified documented in this encounter Additional Health Concerns Assessment Noted Time PHQ-9 Depression Total Score: 0 10/11/19 22 10:50 AM SNOWMAKER documented as of this encounter Care Teams Electric Motor Repairman Relationship Specialty Start Date End Date Sami Liriano DO [address] [place] [address] PCP - General FAMILY PRACTICE 12/24/19 documented as of this encounter
--- OUTSIDE RECORDS SUMMARY | 2024-09-19 19:36 | XMS_ITS | Encounter Summary ---
Author Organization [facility] Address [facility]6 [facility]. [place], [place] [address] [place] [address] Care Team Providers Care Commercial Real Estate Paralegal Name Role Phone Sami Liriano Nicole AGUIAR [...] some Sundays [facility] Utilities Answer Date Recorded In the past 12 months has e electric, gas, oil, or water [employer] threatened to shut off services in your [...] in the past 12 m [facility], were you homeless or living in a fci (including now)? 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 Not on [...] st Contact Info) Description 10/09/2024 9:30 AM SAPPHIRE STYLUS GRINDER Office Visit [facility]-[address] [phone] Carlos Farris MD [facility] Suite [facility] [place] [address] 11/02/2024 10:20 AM SAPPHIRE STYLUS GRINDER Office Visit [facility] Medical Group Family & Internal Medicine - [address] [phone] Sami Liriano DO [address] [place] [address] documented as of this encounter Goals Goal [...] Total Score: 0 10/11/19 22 10:50 AM SAPPHIRE STYLUS GRINDER documented as of this encounter Care Teams Commercial Real Estate Paralegal Relationship Specialty Start Date End Date Sami Liriano DO [address] [place] [address] PCP - General FAMILY PRACTICE 12/24/19 documented as of this encounter
--- OUTSIDE RECORDS SUMMARY | 2024-09-19 19:36 | XMS_ITS | Encounter Summary ---
Author Organization [facility] Address [facility]. [place], [place] [address] [place] [address] Care Team Providers Care Filer Metal Patterns Name Role Phone Sami Liriano DO Primary Care Provider + Reason for Visit * Reason Onset Date Comments Medication 03/31/2024 Encounter Details Date Type Department Care Team (Late st Contact Info) Description 03/31/2024 Telephone [facility] Medical Group Family & Internal Medicine [facility] [address] [place] [address] Sami Liriano DO [address] [place] [address] Medication Social History Tobacco Use Types Packs/Day Years Used Date Smoking Tobacco: Former Cigarettes 0.5 12 0 09/30/1964 - 09/30/1976 Passive Smoke Exposure: Never Smokeless Tobacco: Never Alcohol Use Standard Drinks/Week Comments Not Currently 0 (1 standard drink = 0.6 oz pur e alcohol) 2 cocktails on some Sundays [facility] Utilities Answer Date Recorded [...] any time in the past 12 m [facility], were you homeless or living in a retirement (including now)? 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 Answer Date of Assessment Author Status No 02/08/2024 12:30 AM CDT Chirsta Hodgson RN Active * Do you have [...] st Contact Info) Description 10/09/2024 9:30 AM INTERIOR DESIGN PROFESSIONAL Office Visit [facility]-[address] [phone] Carlos Farris MD [facility] [address] [place] [address] 11/02/2024 10:20 AM INTERIOR DESIGN PROFESSIONAL Office Visit [facility] Medical Group Family & Internal Medicine - [address] [phone] Sami Liriano DO [address] [place] [address] documented as of this encounter Goals Goal [...] Total Score: 0 10/11/19 22 10:50 AM INTERIOR DESIGN PROFESSIONAL documented as of this encounter Care Teams Filer Metal Patterns Relationship Specialty Start Date End Date Sami Liriano DO [address] [place] [address] PCP - General FAMILY PRACTICE 12/24/19 documented as of this encounter
--- OUTSIDE RECORDS SUMMARY | 2024-09-19 19:36 | XMS_ITS | Encounter Summary ---
Author Organization [facility] Address [facility]. [place], [place] [address] [place] [address] Care Team Providers Care Sports Administrator Name Role Phone Sami Liriano DO Primary Care Provider + Reason for Visit * Reason Comments TCM The patient presents for tcm visit. The patient is c/o itching and decreased urine output. Encounter Details Date Type Department Care Team (Late st Contact Info) Description 02/17/2024 10:40 AM CDT Office Visit [facility] Medical Group Family & Internal Medicine [address] [phone] Sami Liriano DO [address] [place] [phone] TCM (The patient presents for tcm visit. [...] any time in the past 12 m [facility], were you homeless or living in a intermediate (including now)? No 02/08/2024 Comments No Sex and Gender Information Value Date Recorded Sex Assigned at Not on file Legal Sex Female 12:43 PM ANGIOGRAPHY NURSE Gender Identity Female 12/18/2021 6:31 AM [...] extremity edema. Patient was seen by her senior account director today and directed to the ER. She [...] mouth daily.), Disp: 90 tablet, Rfl: 0 Ngetjaz-Nqdvexnesqy-Hwegqsmqsx (BREZTRI AEROSPHERE) 160-9-4.8 MCG/ACT Aerosol, Inhale 2 [...] tablet (10 mg total) by mouth daily.) Ubtabrp-Tqdaapfizrp-Envwfskrnr (BREZTRI AEROSPHERE) 160-9-4.8 MCG/ACT Aerosol Inhale 2 [...] Hypertension associated with type 2 diabetes mellitus ([facility]) Arthritis of left knee Overactive bladder Depression Pharyngoesophageal dysphagia ALLYSON positive Stage 3a chronic kidney disease ([facility]) Severe obstructive sleep apnea Hyperlipidemia associated with type 2 diabetes mellitus ([facility]) BMI 45.0-49.9, adult ([facility]) Generalized osteoarthritis of multiple sites Inflammatory arthritis Urinary tract infection Morbid (severe) obesity due to excess calories ([facility]) Hx of adenomatous colonic polyps Family hx of colon cancer Body mass index (BMI) 45.0-49.9, adult ([facility]) Current moderate episode of major depressive disorder without prior episode ([facility]) CHF (congestive heart failure) ([facility]) Past Medical History: Diagnosis Date Anxiety disorder, unspecified Arthritis Arthritis of left knee 11/08/2019 Depression Diabetes mellitus ([facility] HHS/[facility]) GERD (gastroesophageal reflux disease) Hypertension Overactive bladder Positive colorectal cancer screening using Cologuard test 04/19/2020 Added automatically from request for surgery [id number] Past Surgical History: Procedure Laterality Date ANKLE SURGERY left SECTION COLONOSCOPY N/A 04/27/2020 COLONOSCOPY WITH BIOPSY X 3 performed by Joel Keenan MD at [facility] OR COLONOSCOPY N/A 11/20/2023 Colonoscopy with Polypectomies performed by Joel Keenan MD at [facility] OR EGD EYE SURGERY FRACTURE SURGERY HERNIA REPAIR HYSTERECTOMY JOINT REPLACEMENT SHOULDER SURG PROC UNLISTED right TONSILLECTOMY TOTAL KNEE ARTHROPLASTY right Social History Socioeconomic History Marital status: Number of children: 2 Occupational History 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 Medications/DME - See [...] the day of the encounter. This includes puif-vj-cnkp and xnl-lpan-nd-face time I provided on the day of the encounter & excludes time spent performing separately reportable services. Sami Liriano DO documented in this encounter Plan of Treatment Upcoming Encounters Date Type Department Care Team (Late st Contact Info) Description 10/09/2024 9:30 AM ANGIOGRAPHY NURSE Office Visit [facility]-[address] [phone] Carlos Farris MD [facility] [address] [place] [address] 11/02/2024 10:20 AM ANGIOGRAPHY NURSE Office Visit [facility] Medical Group Family & Internal Medicine - [place] [address] [place] [address] Sami Liriano DO [address] [place] [address] documented as of this encounter Goals Goal [...] - 2.4 MG/DL 02/17/2024 7:42 PM CDT [facility] 02/17/2024 11:4 8 AM CDT Sami Liriano DO LABORATORY Final Re sult -[facility] [address] [place] [address], * (ABNORMAL) CBC W/DIFF AUTOMATED (02/17/2024 11:48 AM CDT) [facility] WBC 13.12(H) 4.00 - 10.80 x10'3/uL 02/17/2024 7:28 PM CDT [facility] RBC 4.43 4.10 - 5.40 x10'6/uL 02/17/2024 7:28 PM CDT [facility] HGB 12.2 12.0 - 16.0 G/DL 02/17/2024 7:28 PM CDT [facility] HCT 38.4 36.0 - 47.0 % 02/17/2024 7:28 PM CDT [facility] MCV 86.7 78.0 - 100.0 FL 02/17/2024 7:28 PM CDT [facility] MCH 27.5 27.0 - 31.0 PG 02/17/2024 7:28 PM CDT [facility] MCHC 31.8(L) 33.0 - 36.0 G/DL 02/17/2024 7:28 PM CDT [facility] RDW 14.7(H) 11.5 - 14.5 % 02/17/2024 7:28 PM CDT [facility] PLT 293 150 - 350 x10'3/uL 02/17/2024 7:28 PM CDT [facility] MPV 10.8(H) 7.4 - 10.4 FL 02/17/2024 7:28 PM T [facility] DIFFERENTIAL TYPE AUTOMATED DIFFERENTIAL 02/17/2024 7:29 PM T [facility] NEUTROPHILS % 56.7 % 02/17/2024 7:29 PM CDT [facility] LYMPHOCYTES % 28.3 % 02/17/2024 7:29 PM CDT [facility] MONOCYTES % 8.2 % 02/17/2024 7:29 PM CDT [facility] EOSINOPHILS % 6.0 % 02/17/2024 7:29 PM CDT [facility] BASOPHILS % 0.6 % 02/17/2024 7:29 PM CDT [facility] IMMATURE GRANS % 0.2 % 02/17/2024 7:29 PM CDT [facility] ABS. NEUTROPHILS 7.43 1.60 - 8.30 x10'3/uL 02/17/2024 7:29 PM CDT [facility] ABS. LYMPHOCYTES 3.71 0.80 - 4.70 x10'3/uL 02/17/2024 7:29 PM CDT [facility] ABS. MONOCYTES 1.08 0.00 - 1.50 x10'3/uL 02/17/2024 7:29 PM CDT [facility] ABS. EOSINOPHILS 0.79(H) 0.00 - 0.40 x10'3/uL 02/17/2024 7:29 PM CDT [facility] ABS. BASOPHILS 0.08 0.00 - 0.20 x10'3/uL 02/17/2024 7:29 PM CDT [facility] ABS. IMMATURE GRANULOCYTES 0.03 0.00 - 0.03 x10'3/uL 02/17/2024 7:29 PM CDT [facility] 02/17/2024 11:4 8 AM CDT us Sami Liriano DO LABORATORY Final Re sult [facility] [address] [place] [address], [place] [phone] * (ABNORMAL) COMPREHENSIVE METABOLIC PANEL (02/17/2024 11:48 AM CDT) SODIUM S/P/B 138 136 - 145 MMOL/L 02/17/2024 7:42 PM CDT [facility] POTASSIUM S/P/B 5.0 3.5 - 5.1 MMOL/L 02/17/2024 7:42 PM CDT [facility] CHLORIDE S/P/B 101 98 - 107 MMOL/L 02/17/2024 7:42 PM CDT [facility] CO2 25.9 21 - 32 MMOL/L 02/17/2024 7:42 PM CDT [facility] GLUCOSE 122(H) 70 - 99 MG/DL 02/17/2024 7:42 PM CDT [facility] BUN 47(H) 7 - 18 MG/DL 02/17/2024 7:42 PM T [facility] CREATININE S/P/B 2.24(H) 0.55 - 1.02 MG/DL 02/17/2024 7:42 PM T [facility] CALCIUM S/P/B 9.8 8.4 - 10.5 MG/DL 02/17/2024 7:42 PM CDT [facility] BILIRUBIN TOTAL S/P/B 1.0 0.2 - 1.0 MG/DL 02/17/2024 7:42 PM T [facility] ALKALINE PHOSPHATASE S/P/B 90 55 - 142 U/L 02/17/2024 7:42 PM CDT [facility] AST 24 15 - 37 U/L 02/17/2024 7:42 PM CDT [facility] ALT 28 14 - 59 U/L 02/17/2024 7:42 PM CDT [facility] TOTAL PROTEIN S/P/B 7.5 6.4 - 8.2 G/DL 02/17/2024 7:42 PM T [facility] ALBUMIN S/P/B 4.3 3.4 - 5.0 G/DL 02/17/2024 7:42 PM T [facility] ANION GAP 11.1 5 - 15 MMOL/L 02/17/2024 7:42 PM CDT [facility] Comment:REFERENCE RANGE NOT ESTABLISHED OSMOLALITY (CALC) 300 MOSM/KG 024 7:42 PM CDT [facility] Comment:REFERENCE RANGE NOT ESTABLISHED GFR ESTIMATE 23(L) >90 ML/MIN/1. 73 M2 02/17/2024 7:42 PM CDT [facility] GFR NOTES GFR REFERENCE S: 02/17/2024 7:42 PM CDT [facility] Comment: THE ESTIMATED GFR IS [...] DO LABORATORY Final Re sult [facility] [address] [place] [address], [place] [phone] documented in this encounter Visit Diagnoses Diagnosis Acute on chronic heart failure with preserved ejection fraction ([facility] HHS/HCC)- Primary Contact dermatitis, unspecified contact dermatitis type, unspecified trigger BOONE (acute kidney injury) ([facility]) Acute kidney failure, unspecified Hypertension associated with type 2 diabetes mellitus ([facility]) documented in this encounter Additional Health Concerns Assessment Noted Time PHQ-9 Depression Total Score: 0 10/11/19 22 10:50 AM ANGIOGRAPHY NURSE documented as of this encounter Care Teams Sports Administrator Relationship Specialty Start Date End Date Sami Liriano DO [facility] [place] [address] PCP - General FAMILY PRACTICE 12/24/19 documented as of this encounter
--- OUTSIDE RECORDS SUMMARY | 2024-09-19 19:36 | XMS_ITS | Encounter Summary ---
Author Organization [facility] Address [facility] [place], [place] [address] [place] [address] Care Team Providers Care Fancy Sewer Name Role Phone Sami Liriano DO Primary Care Provider + Reason for Visit * Reason Onset Date Comments Medication Request 03/13/2024 Encounter Details Date Type Department Care Team (Late st Contact Info) Description 03/13/2024 Telephone [facility] Medical Group Family & Internal Medicine [facility] [address] [place] [address] Sami Liriano DO [address] [place] [address] Medication Request Social History Tobacco Use Types Packs/Day Years Used Date Smoking Tobacco: Former Cigarettes 0.5 12 0 09/30/1964 - 09/30/1976 Passive Smoke Exposure: Never Smokeless Tobacco: Never Alcohol Use Standard Drinks/Week Comments Not Currently 0 (1 standard drink = 0.6 oz pur e alcohol) 2 cocktails on some Sundays [facility] Utilities Answer Date Recorded In [...] in the past 12 m [facility], were you homeless or living in a nursing home (including now)? No 02/08/2024 Comments No Sex and Gender Information Value Date Recorded Sex Assigned at Not on file Legal Sex Female 12:43 PM EXPLOSIVES TRUCK DRIVER Gender Identity Female 12/18/2021 6:31 [...] st Contact Info) Description 10/09/2024 9:30 AM EXPLOSIVES TRUCK DRIVER Office Visit [facility] [phone] Carlos Farris MD [facility] [address] [place] [address] 11/02/2024 10:20 AM EXPLOSIVES TRUCK DRIVER Office Visit [facility] Medical Group Family & Internal Medicine - [address] [phone] Sami Liriano DO [address] [place] [address] documented as of this encounter Goals Goal [...] Total Score: 0 10/11/19 22 10:50 AM EXPLOSIVES TRUCK DRIVER documented as of this encounter Care Teams Fancy Sewer Relationship Specialty Start Date End Date Sami Liriano DO [address] [place] [address] PCP - General FAMILY PRACTICE 12/24/19 documented as of this encounter
--- OUTSIDE RECORDS SUMMARY | 2024-09-19 19:36 | XMS_ITS | Encounter Summary ---
Author Organization [facility] Address Replaced by [facility]. [place], [place] [address] [place] [address] Care Team Providers Care Motor Vehicle Assembler Name Role Phone Sami Liriano Primary Care Provider + Encounter Details Date Type Department Care Team (Late st Contact Info) Description 02/21/2024 10:40 AM CDT Laboratory Only [facility] Medical Group Family & Internal Medicine [address] [phone] Carlos Farris MD [facility] [address] [place] [address] [phone] Social History Tobacco Use Types Packs/Day Years Used Date Smoking Tobacco: Former Cigarettes 0.5 12 0 09/30/1964 - 09/30/1976 Passive Smoke Exposure: Never Smokeless Tobacco: Never Alcohol Use Standard Drinks/Week Comments Not Currently 0 (1 standard drink = 0.6 oz pur e alcohol) 2 cocktails on some Sundays [facility] Utilities Answer Date Recorded In the [...] on file Legal Sex Female 12:43 PM APPLICATION LEAD Gender Identity Female 12/18/2021 6:31 AM CDT Sexual Orientation Straight 01/15/2022 6: 11 AM CDT 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 Not on file [...] st Contact Info) Description 10/09/2024 9:30 AM APPLICATION LEAD Office Visit [facility] [phone] Carlos Farris MD [facility] [address] [place] [address] 11/02/2024 10:20 AM APPLICATION LEAD Office Visit [facility] Medical Group Family & Internal Medicine [address] [phone] Sami Liriano DO [address] [place] [address] documented as of this encounter Goals Goal [...] Acute heart failure, unspecified heart failure type (CMS/[facility] HHS/HCC) documented in this encounter Additional Health Concerns Assessment Noted Time PHQ-9 Depression Total Score: 0 10/11/19 10:50 AM APPLICATION LEAD documented as of this encounter Care Teams Motor Vehicle Assembler Relationship Specialty Start Date End Date Sami Liriano DO [address] [place] [address] PCP - General FAMILY PRACTICE 12/24/19 documented as of this encounter
--- OUTSIDE RECORDS SUMMARY | 2024-09-19 19:36 | XMS_ITS | Encounter Summary ---
Author Organization [facility] Address [facility]. [place], [place] [address] [place] [address] Care Team Providers Care Insurance Account Assistant Name Role Phone Sami Liriano DO Primary Care Provider + Encounter Details Date Type Department Care Team (Late st Contact Info) Description 2024 MyChart Message Enc [facility] Medical Group Family & Internal Medicine [place] [address] [place] [address] Sami Liriano DO [facility] [place] [address] Return to work. 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 Not on file [...] Contact Info) Description 10/09/2024 9:30 AM MANAGER TRANSFER Office Visit [facility] [phone] Carlos Farris MD [facility] [address] [place] [address] 11/02/2024 10:20 AM MANAGER TRANSFER Office Visit [facility] Medical Group Family & Internal Medicine - [address] [phone] Sami Liriano DO [address] [place] [address] documented as of this encounter Goals Goal [...] Score: 0 10/11/19 22 10:50 AM MANAGER TRANSFER documented as of this encounter Care Teams Insurance Account Assistant Relationship Specialty Start Date End Date Sami Liriano DO [address] [place] [address] PCP - General FAMILY PRACTICE 12/24/19 documented as of this encounter
--- OUTSIDE RECORDS SUMMARY | 2024-09-19 19:36 | XMS_ITS | Encounter Summary ---
Author Organization [facility] Address [facility]. [place], [place] [address] [place] [address] Care Team Providers Care Shipping Clerk Packing Name Role Phone Sami Liriano Nicole AGUIAR [...] some Sundays [facility] Utilities Answer Date Recorded In the past 12 months has e electric, gas, oil, or water [employer] threatened to shut off services in your [...] any time in the past 12 m [facility], were you homeless or living in a assisted (including now)? No 02/08/2024 Comments No Sex and Gender Information Value Date Recorded Sex Assigned at Not on file Legal Sex Female 12:43 PM SCREEN REPAIRER CRUSHER Gender Identity Female 12/18/2021 6:31 AM CDT [...] Contact Info) Description 10/09/2024 9:30 AM SCREEN REPAIRER CRUSHER Office Visit [facility] [phone] Carlos Farris MD [facility] Suite [facility] [place] [address] 11/02/2024 10:20 AM SCREEN REPAIRER CRUSHER Office Visit [facility] Medical Group Family & Internal Medicine - [address] [phone] Sami Liriano DO [address] [place] [address] documented as of this encounter Goals Goal [...] Total Score: 0 10/11/19 22 10:50 AM SCREEN REPAIRER CRUSHER documented as of this encounter Care Teams Shipping Clerk Packing Relationship Specialty Start Date End Date Sami Liriano DO [address] [place] [address] PCP - General FAMILY PRACTICE 12/24/19 documented as of this encounter
--- OUTSIDE RECORDS SUMMARY | 2024-09-19 19:36 | XMS_ITS | Encounter Summary ---
Author Organization [facility] Address [facility]. [place], [place] [address] [place] [address] Care Team Providers Care Manager Pmo Name Role Phone Sami Liriano DO Primary Care Provider + Reason for Visit * Reason Onset Date Comments Question 04/22/2024 Encounter Details Date Type Department Care Team (Late st Contact Info) Description 04/22/2024 Telephone [facility] Medical Group Family & Internal Medicine [facility] [address] [place] [address] Sami Liriano DO [address] [place] [address] Question Social History Tobacco Use Types Packs/Day Years Used Date Smoking Tobacco: Former Cigarettes 0.5 12 0 09/30/1964 - 09/30/1976 Passive Smoke Exposure: Never Smokeless Tobacco: Never Alcohol Use Standard Drinks/Week Comments Not Currently 0 (1 standard drink = 0.6 oz pur e alcohol) 2 cocktails on some Sundays [facility] Utilities Answer Date Recorded In the [...] time in the past 12 m [facility], were you homeless or living in a chcf (including now)? No 02/08/2024 Comments No Sex and Gender Information Value Date Recorded Sex Assigned at Not on file Legal Sex Female 12:43 PM FRANCHISE SPECIALIST Gender Identity Female 12/18/2021 6:31 AM [...] st Contact Info) Description 10/09/2024 9:30 AM FRANCHISE SPECIALIST Office Visit [facility]-[address] [phone] Carlos Farris MD [facility] [address] [place] [address] 11/02/2024 10:20 AM FRANCHISE SPECIALIST Office Visit [facility] Medical Group Family & Internal Medicine - [address] [phone] Sami Liriano DO [address] [place] [address] documented as of this encounter Goals Goal [...] Total Score: 0 10/11/19 22 10:50 AM FRANCHISE SPECIALIST documented as of this encounter Care Teams Manager Pmo Relationship Specialty Start Date End Date Sami Liriano DO [address] [place] [address] PCP - General FAMILY PRACTICE 12/24/19 documented as of this encounter
--- OUTSIDE RECORDS SUMMARY | 2024-09-19 19:36 | XMS_ITS | Encounter Summary ---
Author Organization [facility] Address [facility], [id number] [facility]. [place], [place] [address] [place] [address] Care Team Providers Care Family Consumer Science Teacher Name Role Phone Sami Liriano [...] e alcohol) 2 cocktails on some Sundays [facility] Utilities Answer Date Recorded In the past 12 months has e electric, gas, oil, or water [employer] threatened to shut off services in your [...] any time in the past 12 m [facility], were you homeless or living in a alf (including now)? No 02/08/2024 Comments No Sex and Gender Information Value Date Recorded Sex Assigned at Not on file Legal Sex Female 12:43 PM VACUUM APPLICATOR OPERATOR Gender Identity Female 12/18/2021 6:31 AM [...] Contact Info) Description 10/09/2024 9:30 AM VACUUM APPLICATOR OPERATOR Office Visit [facility]-[address] [phone] Carlos Farris MD [facility] Suite [facility] [place] [address] 11/02/2024 10:20 AM VACUUM APPLICATOR OPERATOR Office Visit [facility] Medical Group Family & Internal Medicine - [address] [phone] Sami Liriano DO [address] [place] [address] documented as of this encounter Goals Goal [...] Total Score: 0 10/11/19 22 10:50 AM VACUUM APPLICATOR OPERATOR documented as of this encounter Care Teams Family Consumer Science Teacher Relationship Specialty Start Date End Date Sami Liriano DO [address] [place] [address] PCP - General FAMILY PRACTICE 12/24/19 documented as of this encounter
--- OUTSIDE RECORDS SUMMARY | 2024-09-19 19:36 | XMS_ITS | Encounter Summary ---
Author Organization [facility] Address [facility]. [place], [place] [address] [address] Care Team Providers Care High School Assistant Football Coach Name Role Phone Tracy Gimenez DO Primary Care Provider + Reason for Visit * Reason Onset Date Comments Medication Request 03/02/2024 Encounter Details Date Type Department Care Team (Late st Contact Info) Description 03/02/2024 Telephone [facility] Medical Group Family & Internal Medicine [facility] [address] [place] [address] Tracy Gimenez DO [address] [place] [address] Medication Request Social History Tobacco Use Types Packs/Day Years Used Date Smoking Tobacco: Former Cigarettes 0.5 12 0 09/30/1964 - 09/30/1976 Passive Smoke Exposure: Never Smokeless Tobacco: Never Alcohol Use Standard Drinks/Week Comments Not Currently 0 (1 standard drink = 0.6 oz pur e alcohol) 2 cocktails on some Sundays [facility] Utilities Answer Date Recorded In [...] any time in the past 12 m [facility], were you homeless or living in a intermediate (including now)? No 02/08/2024 Comments No Sex and Gender Information Value Date Recorded Sex Assigned at Not on file Legal Sex Female 12:43 PM HERB DIGGER Gender Identity Female 12/18/2021 6:31 AM CDT [...] (K-TAB) 10 MEQ Tab CR tablet Pharmacy: [id number] - [place] - [address] Last visit with TRACY GIMENEZ in FAMILY PRACTICE was on: 02/27/2024 in [facility] Future Appointments Date Time Provider Department Center 03/06/2024 10:20 AM KEVIN Kat [facility] 04/22/2024 7:20 AM Tracy [facility] documented in this encounter Plan of Treatment Upcoming Encounters Date Type Department Care Team (Late st Contact Info) Description 10/09/2024 9:30 AM HERB DIGGER Office Visit [facility] [phone] Carlos Farris MD [facility] [address] [place] [address] 11/02/2024 10:20 AM HERB DIGGER Office Visit [facility] Medical Group Family & Internal Medicine - [address] [phone] Tracy Gimenez DO [address] [place] [address] documented as of this encounter Goals Goal [...] Depression Total Score: 0 10/11/19 10:50 AM HERB DIGGER documented as of this encounter Care Teams High School Assistant Football Coach Relationship Specialty Start Date End Date Tracy Gimenez DO [address] [place] [address] PCP - General FAMILY PRACTICE 12/24/19 documented as of this encounter
--- OUTSIDE RECORDS SUMMARY | 2024-09-19 19:36 | XMS_ITS | Encounter Summary ---
Author Organization [facility] Address [facility] [place] [address] [place] [address] Care Team Providers Care Child Care Centre Director Name Role Phone Sami Liriano Primary Care Provider + Reason for Visit * Reason Onset Date Comments Called To Cancel Office Appt. 03/06/2024 Encounter Details Date Type Department Care Team (Late st Contact Info) Description 03/06/2024 Telephone [facility] Medical Group Orthopedic & Sports Medicine - [place] [address] [place], [place] [address] [phone] Manuelito Marcelino PA [address] [place] [address] Called To Cancel Office Appt. Social History Tobacco Use Types Packs/Day Years Used Date Smoking Tobacco: Former Cigarettes 0.5 12 0 09/30/1964 - 09/30/1976 Passive Smoke Exposure: Never Smokeless Tobacco: Never Alcohol Use Standard Drinks/Week Comments Not Currently 0 (1 standard drink = 0.6 oz pur e alcohol) 2 cocktails on some Sundays [facility] Utilities Answer Date Recorded In the [...] any time in the past 12 m [facility], were you homeless or living in a halfway (including now)? No 02/08/2024 Comments No Sex and Gender Information Value Date Recorded Sex Assigned at Not on file Legal Sex Female 12:43 PM ZANJERO Gender Identity Female 12/18/2021 6:31 AM CDT [...] st Contact Info) Description 10/09/2024 9:30 AM ZANJERO Office Visit [facility]-[address] [phone] Carlos Farris MD [address] [facility] [address] [facility] [place] [address] 11/02/2024 10:20 AM ZANJERO Office Visit [facility] Medical Group Family & Internal Medicine - [address] [phone] Sami Liriano DO [address] [place] [address] documented as of this encounter Goals Goal [...] Total Score: 0 10/11/19 22 10:50 AM ZANJERO documented as of this encounter Care Teams Child Care Centre Director Relationship Specialty Start Date End Date Sami Liriano DO [address] [place] [address] PCP - General FAMILY PRACTICE 12/24/19 documented as of this encounter
--- OUTSIDE RECORDS SUMMARY | 2024-09-19 19:36 | XMS_ITS | Encounter Summary ---
Author Organization [facility] Address [facility]. [place], [place] [address] [place] [address] Care Team Providers Care Live Games Dealer Name Role Phone Sami Liriano Nicole AGUIAR [...] e alcohol) 2 cocktails on some Sundays [facility] Utilities Answer Date Recorded In the past 12 months has e electric, gas, oil, or water [employer] threatened to shut off services in your [...] any time in the past 12 m [facility], were you homeless or living in a penitentiary (including now)? 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 [...] st Contact Info) Description 10/09/2024 9:30 AM PARAMEDIC SUPERVISOR Office Visit [facility]-[address] [phone] Carlos Farris MD [facility] Suite [facility] [place] [address] 11/02/2024 10:20 AM PARAMEDIC SUPERVISOR Office Visit [facility] Medical Group Family & Internal Medicine - [address] [phone] Sami Liriano DO [address] [place] [address] documented as of this encounter Goals Goal [...] Total Score: 0 10/11/19 22 10:50 AM PARAMEDIC SUPERVISOR documented as of this encounter Care Teams Live Games Dealer Relationship Specialty Start Date End Date Sami Liriano DO [address] [place] [address] PCP - General FAMILY PRACTICE 12/24/19 documented as of this encounter
--- OUTSIDE RECORDS SUMMARY | 2024-09-19 19:36 | XMS_ITS | Encounter Summary ---
Author Organization [facility] Address [facility], [facility]6 [facility]. [place], [place] [address] [place] [address] Care Team Providers Care Jewel Bearing Facer Name Role Phone Sami Liriano Primary Care Provider + Reason for Visit * Reason Onset Date Comments Lab Results 02/27/2024 Encounter Details Date Type Department Care Team (Late st Contact Info) Description 02/27/[address] [phone] Shannan Moran intelligence intern Results Social History Tobacco Use Types Packs/Day [...] Recorded In the past 12 months has [employer], gas, oil, or water [employer] threatened to shut off services in your [...] file Legal Sex Female 12:43 PM WIRE STEWARD Gender Identity Female 12/18/2021 6:31 AM CDT Sexual Orientation Straight 01/15/2022 6: 11 AM CDT 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 Received above Scheduled for 05/04/[address] BAILIFF OR SHERIFF * Shannan Moran RN - 03/04/2024 2:33 PM CDT If her symptoms have improved can move out her appointment to 2 months. Above message from Dr. Farris. Message to the placement secretary. * Shannan Moran RN - 02/27/2024 2:56 PM CDT Creatinine is better potassium is normal 4.2 chloride is a little elevated glucose is little elevated 146 recommend she discuss with her PCP. Please find out how her weight is doing as well as edema. Above message from Blaire CABRERA. [employer] message sent to the patient with the [...] Contact Info) Description 10/09/2024 9:30 AM WIRE STEWARD Office Visit [facility]-[address] [phone] Carlos Farris MD [facility] [address] [place] [address] 11/02/2024 10:20 AM WIRE STEWARD Office Visit [facility] Medical Group Family & Internal Medicine - [address] [phone] Sami Liriano DO [address] [place] [address] documented as of this encounter Goals Goal [...] Total Score: 0 10/11/19 22 10:50 AM WIRE STEWARD documented as of this encounter Care Teams Jewel Bearing Facer Relationship Specialty Start Date End Date Sami Liriano DO [address] [place] [address] PCP - General FAMILY PRACTICE 12/24/19 documented as of this encounter
--- OUTSIDE RECORDS SUMMARY | 2024-09-19 19:36 | XMS_ITS | Encounter Summary ---
Author Organization [facility] Address [facility]ly [facility]6 [facility]. [place], [place] [address] [place] [address] Care Team Providers Care Composite Engineer Name Role Phone Sami Liriano Primary Care Provider + Reason for Visit * Reason Comments CHF Hospital follow up Encounter Details Date Type Department Care Team (Latest Contact Info) Description 02/21/2024 2:30 PM CDT Office Visit [facility] [address] Carlos Farris MD [facility] [address] [place] [address] CHF (Hospital follow up) Social History Tobacco Use Types Packs/Day Years Used Date Smoking Tobacco: Former Cigarettes 0.5 12 0 09/30/1964 - 09/30/1976 Passive Smoke Exposure: Never Smokeless Tobacco: Never Alcohol Use Standard Drinks/Week Comments Not Currently 0 (1 standard drink = 0.6 oz pur e alcohol) 2 cocktails on some Sundays [facility] Utilities Answer Date Recorded In the [...] time in the past 12 m [facility], were you homeless or living in a fci (including now)? No 02/08/2024 Comments No Sex and Gender Information Value Date Recorded Sex Assigned at Not on file Legal Sex Female 12:43 PM BOOKMOBILE DRIVER Gender Identity Female 12/18/2021 6:31 AM [...] from the original note were not included. [facility] [place], [place] [address] Cardiology Consult PCP: Sami Liriano, Cardiac Problem [...] left knee 11/08/2019 Depression Diabetes mellitus ([facility]) GERD (gastroesophageal reflux disease) Hypertension Overactive bladder Positive colorectal cancer screening using Cologuard test 04/19/2020 Added automatically from request for surgery [id number] Past Surgical History: Procedure Laterality Date ANKLE SURGERY left SECTION COLONOSCOPY N/A 04/27/2020 COLONOSCOPY WITH BIOPSY X 3 performed by Joel Keenan MD at [facility] OR COLONOSCOPY N/A 11/20/2023 Colonoscopy with Polypectomies performed by Joel Keenan MD at [facility] OR EGD EYE SURGERY [...] by mouth daily. 10/21/23 Sami Liriano DO Fgqzlrz-Xdzrcmcszab-Dahljkycgr (BREZTRI AEROSPHERE) 160-9-4.8 MCG/ACT Aerosol Inhale 2 [...] Portions of this note were dictated using JRKICKZ speech recognition software. Occasional wrong wordor sound-alike substitutions may have occurred due to the inherent limitations of voice recognition software. Please read the chart carefully and recognize, using context, where the substitutions may have occurred. documented in this encounter Plan of Treatment Upcoming Encounters Date Type Department Care Team (Late st Contact Info) Description 10/09/2024 9:30 AM BOOKMOBILE DRIVER Office Visit [facility] [phone] Carlos Farris MD Three [facility] [address] [place] [address] 11/02/2024 10:20 AM BOOKMOBILE DRIVER Office Visit [facility] Family & Internal Medicine - [address] [phone] Sami Liriano DO [address] [place] [address] documented as of this encounter Goals Goal Patient Goal Type Associated Problems Recent Progress Patient-Stated? Author Patient will return to prior living situation and remain independent in ADLs upon discharge from hospital Lifestyle Sylvia Carvajal RN documented as of this encounter Visit Diagnoses Diagnosis Acute heart failure, unspecified heart failure type ([facility])- Primary Essential (primary) hypertension Unspecified essential hypertension Dyslipidemia Other and unspecified hyperlipidemia documented in this encounter Additional Health Concerns Assessment Noted Time PHQ-9 Depression Total Score: 0 10/11/19 22 10:50 AM BOOKMOBILE DRIVER documented as of this encounter Care Teams Composite Engineer Relationship Specialty Start Date End Date Sami Liriano DO [address] [place] [address] PCP - General FAMILY PRACTICE 12/24/19 documented as of this encounter
--- OUTSIDE RECORDS SUMMARY | 2024-09-19 19:36 | XMS_ITS | Encounter Summary ---
Author Organization [facility] Address [facility]. [place], [place] [address] [place] [address] Care Team Providers Care Electron Microprobe Operator Name Role Phone Sami Liriano DO Primary Care Provider + Reason for Visit * Reason Comments CHF The patient is feeli ng so much better. BLE swelling is better. Rash is resolving. Encounter Details Date Type Department Care Team (Late st Contact Info) Description 02/27/2024 8:20 AM CDT Office Visit [facility] Family & Internal Medicine [address] [place] [address] Sami Liriano DO [facility] [place] [address] CHF (The patient is feeling [...] alcohol) 2 cocktails on some Sundays [facility] Utilities Answer Date Recorded In the [...] time in the past 12 m [facility], were you homeless or living in a jail (including now)? No 02/08/2024 Comments No Sex and Gender Information Value Date Recorded Sex Assigned at Not on file Legal Sex Female 12:43 PM TAXI SERVICER Gender Identity Female 12/18/2021 6:31 AM CDT [...] tablet (10 mg total) by mouth daily.) Qruurfp-Pifqdptwrnm-Kynymejadl (BREZTRI AEROSPHERE) 160-9-4.8 MCG/ACT Aerosol Inhale 2 [...] Hypertension associated with type 2 diabetes mellitus ([facility]) Arthritis of left knee Overactive bladder Depression Pharyngoesophageal dysphagia ALLYSON positive Stage 3a chronic kidney disease ([facility]) Severe obstructive sleep apnea Hyperlipidemia associated with type 2 diabetes mellitus ([facility]) BMI 45.0-49.9, adult ([facility]) Generalized osteoarthritis of multiple sites Inflammatory arthritis Urinary tract infection Morbid (severe) obesity due to excess calories ([facility]) Hx of adenomatous colonic polyps Family hx of colon cancer Body mass index (BMI) 45.0-49.9, adult ([facility]) Current moderate episode of major depressive disorder without prior episode ([facility]) CHF (congestive heart failure) ([facility]) Past Medical History: Diagnosis Date Anxiety disorder, unspecified Arthritis Arthritis of left knee 11/08/2019 Depression Diabetes mellitus ([facility]) GERD (gastroesophageal reflux disease) Hypertension Overactive bladder Positive colorectal cancer screening using Cologuard test 04/19/2020 Added automatically from request for surgery [id number] Past Surgical History: Procedure Laterality Date ANKLE SURGERY left SECTION COLONOSCOPY N/A 04/27/2020 COLONOSCOPY WITH BIOPSY X 3 performed by Joel Keenan MD at [facility] OR COLONOSCOPY N/A 11/20/2023 Colonoscopy with Polypectomies performed by Joel Keenan MD at [facility] OR EGD EYE SURGERY FRACTURE SURGERY HERNIA REPAIR HYSTERECTOMY JOINT REPLACEMENT SHOULDER SURG PROC UNLISTED right TONSILLECTOMY TOTAL KNEE ARTHROPLASTY right Social History Socioeconomic History Marital status: Number of children: 2 Occupational History 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 Tobacco Use Smoking status: Former Current packs/day: [...] for this visit: BOONE (acute kidney injury) ([facility]) - MAGNESIUM; Future - COMPREHENSIVE METABOLIC PANEL; Future - VENIPUNC ARM DRAW Acute on chronic heart failure with preserved ejection fraction ([facility]) - CBC W/DIFF AUTOMATED; Future Contact dermatitis, [...] st Contact Info) Description 10/09/2024 9:30 AM TAXI SERVICER Office Visit [facility] [phone] Carlos Farris MD Three [facility] [address] [place] [address] 11/02/2024 10:20 AM TAXI SERVICER Office Visit [facility] Family & Internal Medicine - [phone] [place] [address] Heri Sami PDO [address] [place] [address] documented as of this encounter Goals Goal Patient Goal Type Associated Problems Recent Progress Patient-Stated? Author Patient will return to prior living situation and remain independent in ADLs upon discharge from hospital Lifestyle Sylvia Carvajal RN documented as of this encounter Procedures Procedure Name Priority Date/Time Associated Diagnosis Comments COMPREHENSIVE METABOLIC PANEL Routine 02/27/2024 9:25 AM CDT BOONE (acute kidney injury) ([facility]) CBC W/DIFF AUTOMATED Routine 02/27/2024 9:25 AM CDT Acute on chronic heart failure with preserved ejection fraction ([facility]) Contact dermatitis, unspecified contact dermatitis type, unspecified trigger MAGNESIUM Routine 02/27/2024 9:25 AM CDT BOONE (acute kidney injury) ([facility]) VENIPUNC ARM DRAW Routine 02/27/2024 9:0 6 AM CDT BOONE (acute kidney injury) ([facility]) documented in this encounter Results * (ABNORMAL) CBC W/DIFF AUTOMATED (02/27/2024 9:25 AM CDT) WBC 14.60(H) 4.00 - 10.80 x10'3/uL 02/27/2024 2:15 PM CDT [facility] RBC 4.76 4.10 - 5.40 x10'6/uL 02/27/2024 2:15 PM CDT [facility] HGB 13.1 12.0 - 16.0 G/DL 02/27/2024 2:15 PM CDT [facility] HCT 41.3 36.0 - 47.0 % 02/27/2024 2:15 PM CDT [facility] MCV 86.8 78.0 - 100.0 FL 02/27/2024 2:15 PM CDT [facility] MCH 27.5 27.0 - 31.0 PG 02/27/2024 2:15 PM CDT [facility] MCHC 31.7(L) 33.0 - 36.0 G/DL 02/27/2024 2:15 PM CDT [facility] RDW 14.3 11.5 - 14.5 % 02/27/2024 2:15 PM CDT [facility] PLT 257 150 - 350 x10'3/uL 02/27/2024 2:15 PM CDT [facility] MPV 10.3 7.4 - 10.4 FL 02/27/2024 2:15 PM CDT [facility] DIFFERENTIAL TYPE AUTOMATED DIFFERENTIAL 02/27/2024 2:15 PM CDT [facility] NEUTROPHILS % 60.9 % 02/27/2024 2:15 PM CDT [facility] LYMPHOCYTES % 30.3 % 02/27/2024 2:15 PM CDT [facility] MONOCYTES % 7.1 % 02/27/2024 2:15 PM CDT [facility] EOSINOPHILS % 1.2 % 02/27/2024 2:15 PM CDT [facility] BASOPHILS % 0.3 % 02/27/2024 2:15 PM CDT [facility] IMMATURE GRANS % 0.2 % 02/27/2024 2:15 PM CDT [facility] ABS. NEUTROPHILS 8.89(H) 1.60 - 8.30 x10'3/uL 02/27/2024 2:15 PM CDT [facility] ABS. LYMPHOCYTES 4.43 0.80 - 4.70 x10'3/uL 02/27/2024 2:15 PM CDT [facility] ABS. MONOCYTES 1.04 0.00 - 1.50 x10'3/uL 02/27/2024 2:15 PM CDT [facility] ABS. EOSINOPHILS 0.17 0.00 - 0.40 x10'3/uL 02/27/2024 2:15 PM CDT [facility] ABS. BASOPHILS 0.04 0.00 - 0.20 x10'3/uL 02/27/2024 2:15 PM CDT [facility] ABS. IMMATURE GRANULOCYTES 0.03 0.00 - 0.03 x10'3/uL 02/27/2024 2:15 PM CDT [facility] 02/27/2024 9:25 AM CDT us Sami Liriano DO LABORATORY Final Re sult [facility] [address] [place] [address], * (ABNORMAL) COMPREHENSIVE METABOLIC PANEL (02/27/2024 9:25 AM CDT) SODIUM S/P/B 142 136 - 145 MMOL/L 02/27/2024 5:33 PM CDT [facility] POTASSIUM S/P/B 4.4 3.5 - 5.1 MMOL/L 02/27/2024 5:33 PM CDT [facility] CHLORIDE S/P/B 103 98 - 107 MMOL/L 02/27/2024 5:33 PM CDT [facility] CO2 31.1 21 - 32 MMOL/L 02/27/2024 5:33 PM CDT [facility] GLUCOSE 119(H) 70 - 99 MG/DL 02/27/2024 5:33 PM CDT [facility] BUN 43(H) 7 - 18 MG/DL 02/27/2024 5:33 PM CDT [facility] CREATININE S/P/B 1.37(H) 0.55 - 1.02 MG/DL 02/27/2024 5:33 PM CDT [facility] CALCIUM S/P/B 9.9 8.4 - 10.5 MG/DL 02/27/2024 5:33 PM CDT -[facility] BILIRUBIN TOTAL S/P/B 1.1(H) 0.2 - 1.0 MG/DL 02/27/2024 5:33 PM CDT [facility] ALKALINE PHOSPHATASE S/P/B 97 55 - 142 U/L 02/27/2024 5:33 PM CDT [facility] AST 17 15 - 37 U/L 02/27/2024 5:33 PM T [facility] ALT 26 14 - 59 U/L 02/27/2024 5:33 PM T [facility] TOTAL PROTEIN S/P/B 7.8 6.4 - 8.2 G/DL 02/27/2024 5:33 PM T [facility] ALBUMIN S/P/B 4.4 3.4 - 5.0 G/DL 02/27/2024 5:33 PM CDT [facility] ANION GAP 7.9 5 - 15 MMOL/L 02/27/2024 5:33 PM T [facility] Comment:REFERENCE RANGE NOT ESTABLISHED OSMOLALITY (CALC) 306 MOSM/KG 024 5:33 PM T [facility] Comment:REFERENCE RANGE NOT ESTABLISHED GFR ESTIMATE 41(L) >90 ML/MIN/1. 73 M2 02/27/2024 5:33 PM T [facility] GFR NOTES GFR REFERENCE S: 02/27/2024 5:33 PM T [facility] Comment: THE ESTIMATED GFR IS CALCULATED USING [...] LABORATORY Final Re sult Performing Organization Address City/[facility]/ZIP Co de Phone Number [facility] [address] [place] [address], [place] [phone] * MAGNESIUM (02/27/2024 9:25 AM CDT) MAGNESIUM 2.4 1.8 - 2.4 MG/DL 02/27/2024 5:33 PM CDT [facility] 02/27/2024 9:25 AM CDT Sami Liriano DO LABORATORY Final Re sult Performing Organization Address City/[facility] Co de Phone Number [address] [place] [address], [place] [phone] documented in this encounter Visit Diagnoses Diagnosis BOONE (acute kidney injury) ([facility])- Primary Acute kidney failure, unspecified Acute on chronic heart failure with preserved ejection fraction ([facility]) Contact dermatitis, unspecified contact dermatitis type, unspecified trigger documented in this encounter Additional Health Concerns Assessment Noted Time PHQ-9 Depression Total Score: 0 10/11/19 22 10:50 AM TAXI SERVICER documented as of this encounter Care Teams Electron Microprobe Operator Relationship Specialty Start Date End Date Sami Liriano DO [address] [place] [address] PCP - General FAMILY PRACTICE 12/24/19 documented as of this encounter
--- OUTSIDE RECORDS SUMMARY | 2024-09-19 19:36 | XMS_ITS | Encounter Summary ---
Author Organization [facility] Address [facility]. [place], [place] [address] [place] [address] Care Team Providers Care Natural Resources Extension Educator Name Role Phone Sami Liriano DO Primary Care Provider + Reason for Visit * Reason Onset Date Comments Results 02/20/2024 Encounter Details Date Type Department Care Team (Late st Contact Info) Description 02/20/2024 Telephone [facility] Medical Group Family & Internal Medicine [phone] [place] [address] Sami Liriano DO [address] [place] [address] Results Social History Tobacco Use Types Packs/Day Years Used Date Smoking Tobacco: Former Cigarettes 0.5 12 0 09/30/1964 - 09/30/1976 Passive Smoke Exposure: Never Smokeless Tobacco: Never Alcohol Use Standard Drinks/Week Comments Not Currently 0 (1 standard drink = 0.6 oz pur e alcohol) 2 cocktails on some Sundays [facility] Utilities Answer Date Recorded In [...] in the past 12 m [facility], were you homeless or living in a nursing home (including now)? No 02/08/2024 Comments No Sex and Gender Information Value Date Recorded Sex Assigned at Not on file Legal Sex Female 12:43 PM ARTILLERY OR NAVAL GUNFIRE OBSERVER Gender Identity Female 12/18/2021 6:31 AM CDT [...] st Contact Info) Description 10/09/2024 9:30 AM ARTILLERY OR NAVAL GUNFIRE OBSERVER Office Visit [facility]-[address] [address] Carlos Farris MD [facility] [address] [place] [address] 11/02/2024 10:20 AM ARTILLERY OR NAVAL GUNFIRE OBSERVER Office Visit [facility] Medical Group Family & Internal Medicine - [address] [phone] Sami Liriano DO [address] [place] [address] documented as of this encounter Goals Goal [...] Total Score: 0 10/11/19 22 10:50 AM ARTILLERY OR NAVAL GUNFIRE OBSERVER documented as of this encounter Care Teams Natural Resources Extension Educator Relationship Specialty Start Date End Date Sami Liriano DO [address] [place] [phone] PCP - General FAMILY PRACTICE 12/24/19 documented as of this encounter
--- OUTSIDE RECORDS SUMMARY | 2024-09-19 19:36 | XMS_ITS | Encounter Summary ---
Author Organization [facility] Address [facility]6 [facility] [address] [place] [address] Care Team Providers Care Bobbin Hauler Name Role Phone Sami Liriano Primary Care Provider + Encounter Details Date Type Department Care Team (Latest Contact Info) Description 02/21/2024 7:54 AM T - 02/21/2024 11:59 PM [facility] Hospital Encounter [facility] [address] [place] [address] Carlos Farris MD Three [facility] Suite [facility] [place], [place] [phone] Discharge Disposition: Home or Self Care (Routine [...] time in the past 12 m [facility], were you homeless or living in a alf (including now)? 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 Not [...] MG/3ML) 0.083% nebulizer solutionIndications :Mucopurulent chronic bronchitis ([facility]),Chronic bronchitis, unspecified chronic bronchitis type ([facility]),Bronchitis ,Wheezing Take 3 mLs (2.5 [...] of major depressive disorder without prior episode ([facility]) TAKE 1 TABLET BY MOUTH EVERY DAY 90 tablet 1 3 ipratropium-albuter ol (DUONEB) 0.5-2.5 (3) MG/3ML Solution Take 3 mLs by nebulization. 4 magnesium oxide (MAG-OX) 400 (240 Mg) MG tablet Take 1 tablet (400 mg total) by mouth 2 (two) times daily. Budeson-Glycopyrrol -Formoterol (BREZTRI AEROSPHERE) 160-9-4.8 MCG/ACT AerosolIndications: Mucopurulent chronic bronchitis ([facility]) Inhale 2 Inhalations into the lungs 2 [...] complication, without long-term current use of insulin ([facility]) take 1 tablet by mouth every day with breakfast 90 tablet 4 04/30/20 24 NEBULIZER DEVICE, DME,Indications:Muc opurulent chronic bronchitis ([facility]) Take 1 Device by nebulization every 6 (six) hours as needed. 1 Device 4 07/06/20 24 NEBULIZER/TUBING/MO UTHPIECE KIT, DME,Indications:Muc opurulent chronic bronchitis ([facility] HHS/HCC) 1 kit by Other route every [...] chronic heart failure with preserved ejection fraction ([facility] HHS/HCC) Take 2 tablets (40 mg total) [...] st Contact Info) Description 10/09/2024 9:30 AM SUPPLY CATALOGUER Office Visit [facility]-[address] [address] Carlos Farris MD [facility] [address] [place] [address] 11/02/2024 10:20 AM SUPPLY CATALOGUER Office Visit [facility] Family & Internal Medicine [facility] [address] [place] [address] Sami Liriano DO [address] [place] [address] documented as of this encounter Goals Goal [...] - 145 MMOL/L 02/22/2024 8:17 AM CDT [facility] POTASSIUM S/P/B 4.2 3.5 - 5.1 MMOL/L 02/22/2024 8:17 AM CDT [facility] CHLORIDE S/P/B 110(H) 98 - 107 MMOL/L 02/22/2024 8:17 AM CDT [facility] CO2 23.9 21.0 - 32.0 MMOL/L 02/22/2024 8:17 AM CDT [facility] GLUCOSE 146(H) 74 - 106 MG/DL 02/22/2024 8:17 AM CDT [facility] BUN 28(H) 7 - 18 MG/DL 02/22/2024 8:17 AM CDT [facility] CREATININE S/P/B 1.26(H) 0.55 - 1.02 MG/DL 02/22/2024 8:17 AM CDT [facility] CALCIUM S/P/B 9.2 8.5 - 10.1 MG/DL 02/22/2024 8:17 AM CDT [facility] ANION GAP 6.1 5.0 - 15.0 MMOL/L 02/22/2024 8:17 AM CDT [facility] OSMOLALITY (CALC) 298 MOSM/KG 024 8:17 AM CDT [facility] Comment:REFERENCE RANGE NOT ESTABLISHED GFR ESTIMATE 46(L) >90 ML/MIN/1. 73 M2 02/22/2024 8:17 AM CDT [facility] GFR NOTES GFR REFERENCE S: 02/22/2024 8:17 AM CDT [facility] Comment: THE ESTIMATED GFR IS CALCULATED [...] Carlos Farris MD LABORATORY Final Resul t [facility] [address] [place] [address], [id number] documented in this encounter Visit Diagnoses Not on filedocumented in this encounter Additional Health Concerns Assessment Noted Time PHQ-9 Depression Total Score: 0 10/11/19 22 10:50 AM SUPPLY CATALOGUER documented as of this encounter Care Teams Bobbin Hauler Relationship Specialty Start Date End Date Sami Liriano DO [address] [place] [address] PCP - General FAMILY PRACTICE 12/24/19 documented as of this encounter
--- OUTSIDE RECORDS SUMMARY | 2024-09-19 19:36 | XMS_ITS | Encounter Summary ---
Author Organization [facility] Address [facility]6 [facility]. [place], [place] [address] [place] [address] Care Team Providers Care Weather Clerk Name Role Phone Sami Liriano DO Primary Care Provider + Reason for Visit * Reason Onset Date Comments Results 03/09/2024 Encounter Details Date Type Department Care Team (Late st Contact Info) Description 03/09/2024 Telephone [facility] Medical Group Family & Internal Medicine [facility] [address] [place] [address] Sami Liriano DO [address] [place] [address] Results Social History Tobacco Use Types Packs/Day Years Used Date Smoking Tobacco: Former Cigarettes 0.5 12 0 09/30/1964 - 09/30/1976 Passive Smoke Exposure: Never Smokeless Tobacco: Never Alcohol Use Standard Drinks/Week Comments Not Currently 0 (1 standard drink = 0.6 oz pur e alcohol) 2 cocktails on some Sundays [facility] Utilities Answer Date Recorded In the past [...] file Legal Sex Female 12:43 PM AMMONIA PRINT OPERATOR Gender Identity Female 12/18/2021 6:31 AM [...] Contact Info) Description 10/09/2024 9:30 AM AMMONIA PRINT OPERATOR Office Visit [facility] [phone] Carlos Farris MD Three [facility] [address] [place] [address] 11/02/2024 10:20 AM AMMONIA PRINT OPERATOR Office Visit [facility] Medical Group Family & Internal Medicine - [address] [phone] Sami Liriano DO [address] [place] [phone] documented as of this encounter Goals Goal Patient Goal Type Associated Problems Recent Progress Patient-Stated? Author Patient will return to prior living situation and remain independent in ADLs upon discharge from hospital Lifestyle No ySlvia Ventura, RN documented as of this encounter Results * MAGNESIUM (03/24/2024 10:56 AM CDT) MAGNESIUM 2.0 1.8 - 2.4 MG/DL 03/24/2024 3:47 PM CDT [facility] 03/24/2024 10:5 6 AM CDT Sami Liriano DO LABORATORY Final Re sult [facility] [address] [place] [address], [place] [phone] * (ABNORMAL) COMPREHENSIVE METABOLIC PANEL (03/24/2024 10:56 AM CDT) SODIUM S/P/B 142 136 - 145 MMOL/L 03/24/2024 3:47 PM CDT [facility] POTASSIUM S/P/B 4.6 3.5 - 5.1 MMOL/L 03/24/2024 3:47 PM CDT [facility] CHLORIDE S/P/B 105 98 - 107 MMOL/L 03/24/2024 3:47 PM CDT [facility] CO2 28.0 21 - 32 MMOL/L 03/24/2024 3:47 PM CDT [facility] GLUCOSE 118(H) 70 - 99 MG/DL 03/24/2024 3:47 PM CDT [facility] BUN 34(H) 7 - 18 MG/DL 03/24/2024 3:47 PM CDT [facility] CREATININE S/P/B 1.35(H) 0.55 - 1.02 MG/DL 03/24/2024 3:47 PM T [facility] CALCIUM S/P/B 9.3 8.4 - 10.5 MG/DL 03/24/2024 3:47 PM CDT [facility] BILIRUBIN TOTAL S/P/B 1.7(H) 0.2 - 1.0 MG/DL 03/24/2024 3:47 PM CDT [facility] ALKALINE PHOSPHATASE S/P/B 85 55 - 142 U/L 03/24/2024 3:47 PM CDT [facility] AST 15 15 - 37 U/L 03/24/2024 3:47 PM CDT [facility] ALT 21 14 - 59 U/L 03/24/2024 3:47 PM CDT [facility] TOTAL PROTEIN S/P/B 7.3 6.4 - 8.2 G/DL 03/24/2024 3:47 PM CDT [facility] ALBUMIN S/P/B 4.0 3.4 - 5.0 G/DL 03/24/2024 3:47 PM T [facility] ANION GAP 9.0 5 - 15 MMOL/L 03/24/2024 3:47 PM CDT [facility] Comment:REFERENCE RANGE NOT ESTABLISHED OSMOLALITY (CALC) 303 MOSM/KG 024 3:47 PM CDT [facility] Comment:REFERENCE RANGE NOT ESTABLISHED GFR ESTIMATE 42(L) >90 ML/MIN/1. 73 M2 03/24/2024 3:47 PM CDT [facility] GFR NOTES GFR REFERENCE S: 03/24/2024 3:47 PM CDT [facility] Comment: THE ESTIMATED GFR IS [...] Sami Liriano DO LABORATORY Final Re sult [facility] [address] [place] [address], * (ABNORMAL) CBC W/DIFF AUTOMATED (03/24/2024 10:56 AM CDT) WBC 10.07 4.00 - 10.80 x10'3/uL 03/24/2024 3:00 PM CDT [facility] RBC 4.55 4.10 - 5.40 x10'6/uL 03/24/2024 3:00 PM CDT [facility] HGB 12.8 12.0 - 16.0 G/DL 03/24/2024 3:00 PM CDT [facility] HCT 39.0 36.0 - 47.0 % 03/24/2024 3:00 PM CDT [facility] MCV 85.7 78.0 - 100.0 FL 03/24/2024 3:00 PM CDT [facility] MCH 28.1 27.0 - 31.0 PG 03/24/2024 3:00 PM CDT [facility] MCHC 32.8(L) 33.0 - 36.0 G/DL 03/24/2024 3:00 PM CDT [facility] RDW 14.5 11.5 - 14.5 % 03/24/2024 3:00 PM CDT [facility] PLT 274 150 - 350 x10'3/uL 03/24/2024 3:00 PM CDT [facility] MPV 10.0 7.4 - 10.4 FL 03/24/2024 3:00 PM CDT [facility] DIFFERENTIAL TYPE AUTOMATED DIFFERENTIAL 03/24/2024 3:00 PM CDT [facility] NEUTROPHILS % 54.7 % 03/24/2024 3:00 PM CDT [facility] LYMPHOCYTES % 35.0 % 03/24/2024 3:00 PM CDT [facility] MONOCYTES % 8.2 % 03/24/2024 3:00 PM CDT [facility] EOSINOPHILS % 1.6 % 03/24/2024 3:00 PM CDT [facility] BASOPHILS % 0.3 % 03/24/2024 3:00 PM CDT [facility] IMMATURE GRANS % 0.2 % 03/24/2024 3:00 PM CDT [facility] ABS. NEUTROPHILS 5.51 1.60 - 8.30 x10'3/uL 03/24/2024 3:00 PM CDT [facility] ABS. LYMPHOCYTES 3.52 0.80 - 4.70 x10'3/uL 03/24/2024 3:00 PM CDT [facility] ABS. MONOCYTES 0.83 0.00 - 1.50 x10'3/uL 03/24/2024 3:00 PM CDT [facility] ABS. EOSINOPHILS 0.16 0.00 - 0.40 x10'3/uL 03/24/2024 3:00 PM CDT [facility] ABS. BASOPHILS 0.03 0.00 - 0.20 x10'3/uL 03/24/2024 3:00 PM CDT [facility] ABS. IMMATURE GRANULOCYTES 0.02 0.00 - 0.03 x10'3/uL 03/24/2024 3:00 PM CDT -[facility] 03/24/2024 10:5 6 AM CDT Sami Liriano DO LABORATORY Final Re sult [facility] [address] [place] [address], documented in this encounter Visit Diagnoses Diagnosis Renal failure- Primary Renal failure, unspecified Acute on chronic heart failure with preserved ejection fraction ([facility] HHS/HCC) Acute heart failure, unspecified heart failure type ([facility] HHS/[facility]) documented in this encounter Additional Health Concerns Assessment Noted Time PHQ-9 Depression Total Score: 0 10/11/19 22 10:50 AM AMMONIA PRINT OPERATOR documented as of this encounter Care Teams Weather Clerk Relationship Specialty Start Date End Date Sami Liriano DO [address] [place] [address] PCP - General FAMILY PRACTICE 12/24/19 documented as of this encounter
--- OUTSIDE RECORDS SUMMARY | 2024-09-19 19:37 | XMS_ITS | Encounter Summary ---
Author Organization [facility] Address [facility]6 [facility]. [place], [place] [address] [place] [address] Care Team Providers Care Yard Hand Name Role Phone Sami Liriano Nicole AGUIAR Primary Care Provider + Reason for Visit * Auth/Cert (Routine) Specialty Diagnoses / Procedures Referred By Shereen t Referred To Contact Diagnoses Gastroesophageal reflux disease without esophagitis Screening for colon cancer Hx of adenomatous colonic polyps Family hx of colon cancer Screening colonoscopy Procedures COLONOSCOPY,DIAGNOSTIC COLONOSCOPY DIAGNOSTIC WITH/WITHOUT SPECIMEN BRUSH/WASH Puma Keenan MD [address] [address] Phone: tel: fax: Referral ID Status Reason Start Date Expiration Date Visits Re quested Visits Authorized [id number] 1 1 Encounter Details Date Type Department Care Team (Latest Contact Info) Description 11/20/2023 9:37 AM HOG CUTTER - 11/20/2023 1:24 PM [facility] Hospital Encounter [facility] [address] [place] [address] Puma Keenan MD [address] [phone] Discharge Disposition: Home or Self Care (Routine [...] on file Legal Sex Female 12:43 PM HOG CUTTER Gender Identity Female 12/18/2021 6:31 AM CDT Sexual Orientation Straight 01/15/2022 6: 11 AM CDT 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 Not on file Not on franck e documented as of this encounter Last Filed Vital Signs Vital Sign Reading Time Taken Comments Blood Pressure 151/57 11/20/2023 1:01 PM HOG CUTTER Pulse 75 11/20/2023 1:01 PM HOG CUTTER Temperature 36.6 ??C (97.8 ??F) 11/20/2023 1:01 PM CS T Respiratory Rate 16 11/20/2023 1:01 PM HOG CUTTER Oxygen Saturation 98% 11/20/2023 1:01 PM HOG CUTTER Inhaled Oxygen Concentration - - Weight 113.4 kg (250 lb) 11/06/2023 2:00 PM HOG CUTTER Height 152.4 cm (5') 11/06/2023 2:00 PM HOG CUTTER Body Mass Index 48.82 11/06/2023 2:00 PM HOG CUTTER documented in this encounter Discharge Instructions * Attachments The following attachments cannot be sent through Care Everywhere. * Colonoscopy Discharge Instructions (Micronesian) * Colon Polypectomy Discharge Instructions (Micronesian) * Moderate Sedation in Adults Discharge Instructions (Micronesian) documented in this encounter Medications at Time [...] major depressive disorder without prior episode ([facility]/HCC) TAKE 1 TABLET BY MOUTH EVERY DAY [...] ypertension associated with type 2 diabetes mellitus ([facility]/HCC HHS/HCC) take 1 tablet by mouth every [...] Repeat colonoscopy in 7 to 10 years. CUTTER * Arlen Ashley RN - 11/20/2023 10:17 AM CST Pt received a steroid injection on Saturday and has not started her inhalers or po steroids. Loose cough noted. Anesthesia personnel made aware. Chest xray clear. CUTTER documented in this encounter H&P Notes * [...] associated with type 2 diabetes mellitus (HHS/HCC) ([facility]) Arthritis of left knee GERD (gastroesophageal reflux disease) Overactive bladder Depression Pharyngoesophageal dysphagia Positive colorectal cancer screening using Cologuard test ALLYSON positive Stage 3a chronic kidney disease ([facility]) Severe obstructive sleep apnea Hyperlipidemia associated with type 2 diabetes mellitus ([facility]/HCC) ([facility]) BMI 45.0-49.9, adult ([facility]) Current mild episode of major depressive disorder without prior episode ([facility]/HCC) Generalized osteoarthritis of multiple sites Inflammatory arthritis Urinary tract infection Morbid (severe) obesity due to excess calories ([facility]) Hx of adenomatous colonic polyps Family hx of colon cancer Body mass index (BMI) 45.0-49.9, adult ([facility]) Current moderate episode of major depressive disorder without prior episode ([facility]) Screening for colon cancer Past Medical History: Diagnosis Date Anxiety disorder, unspecified Arthritis Arthritis of left knee 11/08/2019 Depression Diabetes mellitus (HHS/HCC) ([facility]) GERD (gastroesophageal reflux disease) Hypertension Overactive bladder Past Surgical History: Procedure Laterality Date ANKLE SURGERY left SECTION COLONOSCOPY N/A 04/27/2020 COLONOSCOPY WITH BIOPSY X 3 performed by Puma Keenan MD at [facility] OR EGD EYE SURGERY FRACTURE [...] level: Not on file Occupational History 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 Tobacco Use Smoking status: Former Packs/day: 0.50 [...] PUMA KEENAN MD Voice recognition software utilized CUTTER documented in this encounter OR Notes * Op Note - Puma Keenan MD - 11/20/2023 12:34 PM CST [facility] OpNote Colonoscopy with Polypectomies Procedure Note Hair Sargent 11/20/2023 1039 Procedure(s) (LRB): Colonoscopy with Polypectomies (N/A) Surgeon(s): Puma Keenan MD Staff: Circulating Nurse 1: Sherrill Harrison RN Scrub Person 1: L Schallenberg, RN Anesthesia: Monitor Anesthesia Care MACHINE CAPTAIN: Aga Holly CRNA Pre-Op Diagnosis: Screening colonoscopy [...] Time: 12:34 PM Voice recognition software utilized. CUTTER documented in this encounter Plan of Treatment Upcoming Encounters Date Type Department Care Team (Late st Contact Info) Description 10/09/2024 9:30 AM HOG CUTTER Office Visit [facility] [phone] Carlos Farris MD Three [facility] [address] [place] [address] 11/02/2024 10:20 AM HOG CUTTER Office Visit [facility] Medical Group Family & Internal Medicine - [address] [phone] Sami Liriano DO [address] [place] [address] documented as of this encounter Procedures Procedure Name Priority Date/Time Associated Diagnosis Comments COLONOSCOPY FLX DX W/COLLJ SPEC WHEN PFRMD 11/20/2023 12:06 PM HOG CUTTER Gastroesophageal reflux disease without esophagitis Screening for colon cancer Hx of adenomatous colonic polyps Family hx of colon cancer PATHOLOGY Routine 11/20/2023 12:00 AM HOG CUTTER documented in this encounter Results * Pathology (11/20/2023 12:00 AM HOG CUTTER) PATHOLOGY [facility] ? Department of Laboratory Medicine ?[address] ?[place] [address] ? , extension [phone] ? Pathology Report ? Surgical Pathology Report Name: HAIR SARGENT ?Specimen #: [id number] Age: 5 1955 (Age: 68) ?Location: [facility] Sex: F ?Procedure Date: 11/20/2023 Hospital #: [id number] ?Date Received: 11/21/2023 Date Reported: 11/22/2023 Provider: [...] Gross examination (when applicable), was performed at [facility], [address] [place] [address], [facility]. This case was interpreted and signed out at [facility], [address] [place] [address]. FINAL DIAGNOSIS: A. Sigmoid colon polyp, biopsy: ? Hyperplastic polyp. ? B. Rectosigmoid colon polyp, biopsy: ? Hyperplastic polyp. ? Electronically Signed Out ? CRISTINA BRAND MD [facility] TISSUE COLON STRUCTURE / Unknown 11/20/2023 12:36 PM HOG CUTTER Tissue specimen (specimen) COLON STRUCTURE / Unknown 11/20/2023 12:36 PM HOG CUTTER us Puma Keenan MD PATHOLOGY/CYTOLOGY ORDERABLES Fi nal Result [facility] [address] [place] [address], [id number] documented in this encounter Visit Diagnoses Diagnosis [...] Pre-Op Continued by Anesthesia 11/20/2023 12:07 PM HOG CUTTER 10 mL/hr New Bag 11/20/2023 10:29 AM HOG CUTTER 10 mL/hr documented in this encounter Active and Recently Administered Medications Times are shown in HOG CUTTER. Continuous Medication Order 11/18/2023 11/19/2023 11/20/2023 lactated [...] Depression Total Score: 0 10/11/19 10:50 AM HOG CUTTER documented as of this encounter Care Teams Yard Hand Relationship Specialty Start Date End Date Sami Liriano DO [address] [place] [address] PCP - General FAMILY PRACTICE 12/24/19 documented as of this encounter
--- OUTSIDE RECORDS SUMMARY | 2024-09-19 19:37 | XMS_ITS | Encounter Summary ---
Author Organization [facility] Address [address] [place] [address]. [place], [place] [address] [place] [address] Care Team Providers Care Program Advisor Name Role Phone Sami Liriano DO Primary [...] VISIT,EST,LEVL V Sami Liriano DO [address] [place] [address] Phone: tel: fax: Elvin Acuna MD [address] [place] [address] Phone: tel: fax: Referral ID Status Reason Start Date Expiration Date Visits Requested Visits Authorized [id number] Authorized Specialty Services 01/31/2024 02/28/2025 99 99 Reason for Visit * Reason Onset Date Comments ER F/U 01/29/2024 Encounter Details Date Type Department Care Team (Late st Contact Info) Description 01/29/2024 Telephone [facility] Medical Group Family & Internal Medicine - [place] [address] [place] [address] JaeldarellSami DO [address] [place] [address] ER F/U Social History Tobacco Use Types [...] file Legal Sex Female 12:43 PM RN DIABETES Gender Identity Female 12/18/2021 6:31 AM CDT [...] the patient's situation. I called [facility] of [facility] and spoke with Mayi who is able to schedule patient for 01/31/2024 at 10am at their [place] location. PCP wants to insure pt is not taking oxybutynin any more. Spoke with patient and she is not taking the medication at this time. The patient agreed to urologyappt and scheduled f/u with pcp on 02/03/2024. [facility] [place] [id number] * Winter Espinosa - 01/30/2024 9:32 AM [...] referral to urology stat. Call [facility]rology of [facility] and spoke to Hanna. Information was faxed to [phone]. The nursing staff at their office will [...] Contact Info) Description 10/09/2024 9:30 AM RN DIABETES Office Visit [facility]-[address] [phone] Carlos Farris MD Three [facility] [address] [facility] [place] [address] 11/02/2024 10:20 AM RN DIABETES Office Visit [facility] Medical Group Family & Internal Medicine - [address] [phone] Sami Liriano DO [address] [place] [address] Scheduled Referrals Name Type Priority Associated Diagnoses Orde r Schedule Ambulatory referral to Urology (OTHER) Referral Routine Leg swelling Stage 3a chronic kidney disease ([facility]) Anuria Renal failure Ordered: 01/29/2024 documented as of this encounter Visit Diagnoses Diagnosis Leg swelling- Primary Swelling of limb Stage 3a chronic kidney disease ([facility]) Anuria Oliguria and anuria Renal failure Renal failure, unspecified documented in this encounter Additional Health Concerns Assessment Noted Time PHQ-9 Depression Total Score: 0 10/11/19 22 10:50 AM RN DIABETES documented as of this encounter Care Teams Program Advisor Relationship Specialty Start Date End Date Sami Liriano DO [address] [place] [address] PCP - General FAMILY PRACTICE 12/24/19 documented as of this encounter
--- OUTSIDE RECORDS SUMMARY | 2024-09-19 19:37 | XMS_ITS | Encounter Summary ---
Author Organization [facility] Address Critical access hospital6 [facility] [place] [address] [place] [address] Care Team Providers Care Architectural Design Lecturer Name Role Phone Sami Liriano Primary Care Provider + Reason for Visit * Reason Onset Date Comments Results 12/03/2023 Encounter Details Date Type Department Care Team (Late st Contact Info) Description 12/03/[address] [facility] Medical Group Multispecialty Care - [facility] [address] [facility] [address] [place] [phone] Joel Keenan MD 3 [facility] [address] [place] [address] Results Social History Tobacco Use Types Packs/Day [...] on file Legal Sex Female 12:43 PM SOFTWARE ENGINEER INTERN Gender Identity Female 12/18/2021 6:31 AM CDT [...] Keenan MD sent at 11/30/2023 1:16 PM SOFTWARE ENGINEER INTERN ----- Your colon polyps are benign hyperplastic polyps. These have no cancer potential. Repeat colonoscopy in 7 to 10 years. WARE ENGINEER INTERN WARE ENGINEER INTERN documented in this encounter Plan of Treatment Upcoming Encounters Date Type Department Care Team (Late st Contact Info) Description 10/09/2024 9:30 AM SOFTWARE ENGINEER INTERN Office Visit [facility]-[address] [phone] Carlos Farris MD Three [facility] [address] [place] [address] 11/02/2024 10:20 AM SOFTWARE ENGINEER INTERN Office Visit [facility] Medical Group Family & Internal Medicine - [address] [phone] Sami Liriano DO [address] [place] [address] documented as of this encounter Visit Diagnoses Not on filedocumented in this encounter Additional Health Concerns Assessment Noted Time PHQ-9 Depression Total Score: 0 10/11/19 22 10:50 AM SOFTWARE ENGINEER INTERN documented as of this encounter Care Teams Architectural Design Lecturer Relationship Specialty Start Date End Date Sami Liriano DO [address] [place] [address] PCP - General FAMILY PRACTICE 12/24/19 documented as of this encounter
--- OUTSIDE RECORDS SUMMARY | 2024-09-19 19:37 | XMS_ITS | Encounter Summary ---
Author Organization [facility] Address [address] [place] [address]. 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 Not on file Not on franck e documented as of this encounter Plan of Treatment Upcoming Encounters Date Type Department Care Team (Late st Contact Info) Description 10/09/2024 9:30 AM DASHBOARD DEVELOPER Office Visit [facility]-[address] [address] Carlos Farris MD Three [facility] [address] [place] [address] 11/02/2024 10:20 AM DASHBOARD DEVELOPER Office Visit [facility] Medical Group Family & Internal Medicine - [address] [phone] Sami Liriano DO [address] [place] [address] documented as of this encounter Procedures Procedure Name Priority Date/Time Associated Diagnosis Comments CT GENERIC 01/03/2024 OUTSIDE PT/INR (SCAN ORDER) 01/03/2024 OUTSIDE LAB (SCAN ORDER) 01/03/2024 OUTSIDE LAB (SCAN ORDER) 01/03/2024 OUTSIDE LAB (SCAN ORDER) 01/03/2024 IMAGE GENERIC 01/03/2024 documented in this encounter Results * OUTSIDE PT/INR (SCAN ORDER) (01/03/2024) 01/03/2024 [facility] Scanned SCANNING Final Resu lt * OUTSIDE LAB (SCAN ORDER) (01/03/2024) 01/03/2024 [facility] Scanned SCANNING Final Resu lt * OUTSIDE LAB (SCAN ORDER) (01/03/2024) 01/03/2024 [facility] Scanned SCANNING Final Resu lt * OUTSIDE LAB (SCAN ORDER) (01/03/2024) 01/03/2024 [facility] Scanned SCANNING Final Resu lt * IMAGE GENERIC (01/03/2024) Anatomical Region Laterality Modality Other 01/03/2024 [facility] Scanned SCANNING Final Resu lt * CT GENERIC (01/03/2024) Anatomical Region Laterality Modality Other 01/03/2024 [facility] Scanned SCANNING Final Resu lt documented in this encounter Visit Diagnoses Not on filedocumented in this encounter Additional Health Concerns Assessment Noted Time PHQ-9 Depression Total Score: 0 10/11/19 22 10:50 AM DASHBOARD DEVELOPER documented as of this encounter Care Teams Canal Driver Relationship Specialty Start Date End Date Sami Liriano DO [address] [place] [address] PCP - General FAMILY PRACTICE 12/24/19 documented as of this encounter
--- OUTSIDE RECORDS SUMMARY | 2024-09-19 19:37 | XMS_ITS | Encounter Summary ---
Author Organization [facility] Address [address] [place] [address]. [place], [place] [address] [place] [address] Care Team Providers Care Education Administrator Name Role Phone Sami Gimenez DO Primary Care Provider + Reason for Visit * Reason Onset Date Comments Medication Request 01/13/2024 Encounter Details Date Type Department Care Team (Late st Contact Info) Description 01/13/2024 Telephone [facility] Family & Internal Medicine [address] [place] [address] Sami Gimenez DO [facility] [address] [place] [address] Medication Request Social History Tobacco [...] on file Legal Sex Female 12:43 PM SOFT METALS HAND ENGRAVER Gender Identity Female 12/18/2021 6:31 AM CDT Sexual Orientation Straight 01/15/2022 6: 11 AM CDT 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 Not on file Not on frankc e documented as of this encounter Progress [...] came back as weather warmed up) Pharmacy: [id number] - [address] Last visit with SAMI GIMENEZ in FAMILY PRACTICE was on: [facility] Future Appointments Date Time Provider Department Center 01/16/2024 10:20 AM Sami Gimenez DO [facility] [place] 03/06/2024 10:20 AM KEVIN KatOP [facility] [place] [facility] documented in this encounter Plan of Treatment Upcoming Encounters Date Type Department Care Team (Late st Contact Info) Description 10/09/2024 9:30 AM SOFT METALS HAND ENGRAVER Office Visit [facility] [address] Carlos Farris MD [address] [facility] [address] [place] [address] 11/02/2024 10:20 AM SOFT METALS HAND ENGRAVER Office Visit [facility] Family & Internal Medicine - [address] [phone] Smai Gimenez DO [address] [place] [address] documented as of this encounter Visit Diagnoses Diagnosis Localized swelling of both lower legs- Primary documented in this encounter Additional Health Concerns Assessment Noted Time PHQ-9 Depression Total Score: 0 10/11/19 10:50 AM SOFT METALS HAND ENGRAVER documented as of this encounter Care Teams Education Administrator Relationship Specialty Start Date End Date Sami Gimenez DO [address] [place] [address] PCP - General FAMILY PRACTICE 12/24/19 documented as of this encounter
--- OUTSIDE RECORDS SUMMARY | 2024-09-19 19:37 | XMS_ITS | Encounter Summary ---
Author Organization [facility] Address [address] [place] [address]. [place], [place] [address] [place] [address] Care Team Providers Care Extrusion Operator Name Role Phone Sami Liriano DO Primary Care Provider + Reason for Visit * Reason Onset Date Comments Medication 12/09/2023 Encounter Details Date Type Department Care Team (Late st Contact Info) Description 12/09/[address] 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 Family & Internal Medicine - [address] [address] Sami Liriano DO [address] [place] [address] documented as of this encounter Visit Diagnoses Not on filedocumented in this encounter Additional Health Concerns Assessment Noted Time PHQ-9 Depression Total Score: 0 10/11/19 22 10:50 AM PAPETERIE TABLE ASSEMBLER documented as of this encounter Care Teams Extrusion Operator Relationship Specialty Start Date End Date Sami Liriano DO [address] [place] [address] PCP - General FAMILY PRACTICE 12/24/19 documented as of this encounter
--- OUTSIDE RECORDS SUMMARY | 2024-09-19 19:37 | XMS_ITS | Encounter Summary ---
Author Organization [facility] Address Critical access hospital6 [facility]. [place], [place] [address] [place] [address] Care Team Providers Care Mining Consultant Name Role Phone Sami Liriano Nicole AGUIAR Primary Care Provider + Reason for Visit * Auth/Cert (Routine) Specialty Diagnoses / Procedures Referred By Shereen t Referred To Contact Diagnoses Gastroesophageal reflux disease without esophagitis Screening for colon cancer Hx of adenomatous colonic polyps Family hx of colon cancer Screening colonoscopy Procedures COLONOSCOPY,DIAGNOSTIC COLONOSCOPY DIAGNOSTIC WITH/WITHOUT SPECIMEN BRUSH/WASH Puma Keenan MD [address] [place] [address] Phone: tel: fax: Referral ID Status Reason Start Date Expiration Date Visits Re quested Visits Authorized [id number] 1 1 Encounter Details Date Type Department Care Team (Late st Contact Info) Description 11/20/2023 10:39 AM SHEET METAL FOREMAN - 11/20/2023 11:00 AM SHEET METAL FOREMAN Surgery [facility] [address] [place] [address] Puma Keenan MD [address] [place] [address] [phone] Colonoscopy with Polypectomies Surgery Details Date/Time Status Location OR Service Patient Class Case Class Case Type Trauma Case? 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 Not on file Not on franck e documented as of this encounter Last Filed Vital Signs Vital Sign Reading Time Taken Comments Blood Pressure 187/78 11/20/2023 10:10 AM SHEET METAL FOREMAN Pulse 87 11/20/2023 10:07 AM SHEET METAL FOREMAN Temperature 36.5 ??C (97.7 ??F) 11/20/2023 10:[address] Respiratory Rate 18 11/20/2023 10:07 AM SHEET METAL FOREMAN Oxygen Saturation 95% 11/20/2023 10:07 AM SHEET METAL FOREMAN Inhaled Oxygen Concentration - - Weight 113.4 kg (250 lb) 11/06/2023 2:00 PM SHEET METAL FOREMAN Height 152.4 cm (5') 11/06/2023 2:00 PM SHEET METAL FOREMAN Body Mass Index 48.82 11/06/2023 2:00 PM SHEET METAL FOREMAN documented in this encounter Discharge Instructions * Attachments The following attachments cannot be sent through Care Everywhere. * Colonoscopy Discharge Instructions (Eritrean) * Colon Polypectomy Discharge Instructions (Eritrean) * Moderate Sedation in Adults Discharge Instructions (Eritrean) documented in this encounter Medications at Time [...] without prior episode ([facility]/HCC) TAKE 1 TABLET BY MOUTH EVERY DAY 90 tablet 1 3 Budeson-Glycopyrrol -Formoterol (BREZTRI AEROSPHERE) 160-9-4.8 MCG/ACT AerosolIndications: Mucopurulent chronic bronchitis ([facility] HHS/HCC) Inhale 2 Inhalations into the lungs 2 (two) times a day. 10.7 g 2 4 12/12/19 24 buPROPion XL (WELLBUTRIN XL) 150 MG 24 hr tabletIndications:C urrent moderate episode of major depressive disorder without prior episode ([facility] HHS/HCC) TAKE 2 TABLETS BY MOUTH EVERY DAY 180 tablet 1 3 01/28/20 24 guaiFENesin-codeine (CHERATUSSIN AC) 100-10 MG/5ML syrupIndications:Co ugh Take 5 mLs by mouth every 6 (six) hours as needed for Cough. Indications: Cough 118 mL 4 01/28/20 24 hydroCHLOROthiazide (HYDRODIURIL) 25 MG tabletIndications:H ypertension associated with type 2 diabetes mellitus ([facility]/HCC HHS/HCC) take 1 tablet by mouth every day in the morning 90 tablet 4 02/12/20 24 ipratropium-albuter ol (DUONEB) 0.5-2.5 (3) MG/3ML SolutionIndications :Mucopurulent chronic bronchitis ([facility]/HCC HHS/HCC) Take 3 mLs by nebulization every 6 (six) hours as needed. 360 mL 4 12/06/19 24 lisinopril (PRINIVIL) 40 MG tabletIndications:E ssential hypertension TAKE ONE TABLET BY MOUTH DAILY AT 9AM 180 tablet 1 2 02/07/20 24 metFORMIN ER (GLUCOPHAGE-XR) 500 MG 24 hr tabletIndications:T ype 2 diabetes mellitus without complication, without long-term current use of insulin ([facility] HHS/HCC) TAKE 1 TABLET BY MOUTH EVERY DAY WITH BREAKFAST 90 tablet 3 01/28/20 24 NEBULIZER DEVICE, DME,Indications:Muc opurulent chronic bronchitis ([facility] HHS/HCC) Take 1 Device by nebulization every 6 (six) hours as needed. 1 Device 4 07/06/20 24 NEBULIZER/TUBING/MO UTHPIECE KIT, DME,Indications:Muc opurulent chronic bronchitis ([facility] HHS/HCC) 1 kit by Other route [...] Repeat colonoscopy in 7 to 10 years. T METAL FOREMAN * Arlen Ashley RN - 11/20/2023 10:17 AM CST Pt received a steroid injection on Saturday and has not started her inhalers or po steroids. Loose cough noted. Anesthesia personnel made aware. Chest xray clear. T METAL FOREMAN documented in this encounter H&P Notes * [...] diabetes mellitus (HHS/HCC) ([facility]) Arthritis of left knee GERD (gastroesophageal reflux disease) Overactive bladder Depression Pharyngoesophageal dysphagia Positive colorectal cancer screening using Cologuard test ALLYSON positive Stage 3a chronic kidney disease ([facility]) Severe obstructive sleep apnea Hyperlipidemia associated with type 2 diabetes mellitus (HHS/HCC) ([facility]) BMI 45.0-49.9, adult ([facility]) Current mild episode of major depressive disorder without prior episode ([facility]) Generalized osteoarthritis of multiple sites Inflammatory arthritis Urinary tract infection Morbid (severe) obesity due to excess calories ([facility]) Hx of adenomatous colonic polyps Family hx of colon cancer Body mass index (BMI) 45.0-49.9, adult ([facility]) Current moderate episode of major depressive disorder without prior episode ([facility]) Screening for colon cancer Past Medical History: Diagnosis Date Anxiety disorder, unspecified Arthritis Arthritis of left knee 11/08/2019 Depression Diabetes mellitus ([facility]/HCC) ([facility]) GERD (gastroesophageal reflux disease) Hypertension Overactive bladder Past Surgical History: Procedure Laterality Date ANKLE SURGERY left SECTION COLONOSCOPY N/A 04/27/2020 COLONOSCOPY WITH BIOPSY X 3 performed by Puma Keenan MD at [facility] OR D EYE SURGERY FRACTURE SURGERY [...] Not on file Occupational 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 Tobacco Use Smoking status: Former Packs/day: [...] PUMA KEENAN MD Voice recognition software utilized T METAL FOREMAN documented in this encounter OR Notes * Op Note - Puma Keenan MD - 11/20/2023 12:34 PM CST [facility] OpNote Colonoscopy with Polypectomies Procedure Note Hair Sargent 11/20/2023 1039 Procedure(s) (LRB): Colonoscopy with Polypectomies (N/A) Surgeon(s): Puma Keenan MD Staff: Circulating Nurse 1: Sherrill Harrison RN Scrub Person 1: Amy Wheatley RN Anesthesia: Monitor Anesthesia Care SMUTTER: Aga Holly CRNA Pre-Op Diagnosis: Screening colonoscopy [...] Time: 12:34 PM Voice recognition software utilized. T METAL FOREMAN documented in this encounter Plan of Treatment Upcoming Encounters Date Type Department Care Team (Late st Contact Info) Description 10/09/2024 9:30 AM SHEET METAL FOREMAN Office Visit [facility] [address] Carlos Farris MD [facility] [address] [place] [address] 11/02/2024 10:20 AM SHEET METAL FOREMAN Office Visit [facility] Family & Internal Medicine [facility] [address] [place] [phone] Sami Liriano, [address] [place] [address] documented as of this encounter Procedures Procedure Name Priority Date/Time Associated Diagnosis Comments COLONOSCOPY FLX DX W/COLLJ SPEC WHEN PFRMD 11/20/2023 12:06 PM SHEET METAL FOREMAN Gastroesophageal reflux disease without esophagitis Screening for colon cancer Hx of adenomatous colonic polyps Family hx of colon cancer PATHOLOGY Routine 11/20/2023 12:00 AM SHEET METAL FOREMAN documented in this encounter Results * Pathology (11/20/2023 12:00 AM SHEET METAL FOREMAN) PATHOLOGY [facility] ? Department of Laboratory Medicine ?[address] [facility] ?[place] [address] ? , [facility] [id number] ? Pathology Report ? Surgical Pathology Report Name: SHANDS, HAIR L ?Specimen #: [id number] Age: 5 1955 (Age: 68) ?Location: [facility] Sex: F ?Procedure Date: 11/20/2023 Hospital #: [id number] ?Date Received: 11/21/2023 Date Reported: 11/22/2023 Provider: [...] Gross examination (when applicable), was performed at [facility], [address] [place] [address], [facility]. This case was interpreted and signed out at [facility], [address] [place] [address]. FINAL DIAGNOSIS: A. Sigmoid colon polyp, biopsy: ? Hyperplastic polyp. ? B. Rectosigmoid colon polyp, biopsy: ? Hyperplastic polyp. ? Electronically Signed Out ? CRISTINA BRAND MD [facility] TISSUE COLON STRUCTURE / Unknown 11/20/2023 12:36 PM SHEET METAL FOREMAN Tissue specimen (specimen) COLON STRUCTURE / Unknown 11/20/2023 12:36 PM SHEET METAL FOREMAN us Puma Keenan MD PATHOLOGY/CYTOLOGY ORDERABLES Fi nal Result [facility] [address] [place] [address], [place] [phone] [id number] documented in this encounter Visit Diagnoses Diagnosis [...] Pre-Op Continued by Anesthesia 11/20/2023 12:07 PM SHEET METAL FOREMAN 10 mL/hr New Bag 11/20/2023 10:29 AM SHEET METAL FOREMAN 10 mL/hr documented in this encounter Active and Recently Administered Medications Times are shown in SHEET METAL FOREMAN. Continuous Medication Order 11/18/2023 11/19/2023 11/20/2023 lactated [...] Total Score: 0 10/11/19 22 10:50 AM SHEET METAL FOREMAN documented as of this encounter Care Teams Mining Consultant Relationship Specialty Start Date End Date Sami Liriano DO [address] [place] [address] PCP - General FAMILY PRACTICE 12/24/19 documented as of this encounter
--- OUTSIDE RECORDS SUMMARY | 2024-09-19 19:37 | XMS_ITS | Encounter Summary ---
Author Organization [facility] Address [address] [place] [address]. [place], [place] [address] [place] [address] Care Team Providers Care Respiratory Assistant Name Role Phone Sami Liriano Primary Care Provider + Reason for Visit * Reason Comments Cough Encounter Details Date Type Department Care Team (Late st Contact Info) Description 12/12/2023 10:20 AM CDT Office Visit [facility] Family & Internal Medicine [facility] [address] [place] [address] Barb Sexton APNP [facility] [place] [address] Cough Social History Tobacco Use [...] file Legal Sex Female 12:43 PM BUSINESS ACCOUNT EXECUTIVE Gender Identity Female 12/18/2021 6:31 AM CDT [...] from the original note were not included. [facility] FAMILY AND INTERNAL MEDICINE OFFICE VISIT Reason [...] tired throughout the day. 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 [...] at night, Disp: 90 tablet, Rfl: 0 Wlxgnyd-Usjqapvmahh-Jfredyonnw (BREZTRI AEROSPHERE) 160-9-4.8 MCG/ACT Aerosol, Inhale 2 [...] of left knee 11/08/2019 Depression Diabetes mellitus ([facility]) GERD (gastroesophageal reflux disease) Hypertension Overactive bladder Surgical History: Past Surgical History: Procedure Laterality Date ANKLE SURGERY left SECTION COLONOSCOPY N/A 04/27/2020 COLONOSCOPY WITH BIOPSY X 3 performed by Joel Keenan MD at [facility] OR COLONOSCOPY N/A 11/20/2023 Colonoscopy with Polypectomies performed by Joel Keenan MD at [facility] OR [facility] EYE SURGERY FRACTURE SURGERY HERNIA REPAIR HYSTERECTOMY JOINT REPLACEMENT SHOULDER SURG PROC UNLISTED right TONSILLECTOMY TOTAL KNEE ARTHROPLASTY right Social History: Social History Socioeconomic History Marital status: Number of children: 2 Occupational History 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 Mucopurulent chronic bronchitis (CMS/HCC HHS/HCC) Txederc-Bberyistfyb-Litwsidaiu (BREZTRI AEROSPHERE) 160-9-4.8 MCG/ACT Aerosol Recommendations and Plan: 1. Mucopurulent chronic bronchitis (CMS/HCC HHS/HCC) - Evgdhlf-Urtgwcuitkw-Tqnrndaipl (BREZTRI AEROSPHERE) 160-9-4.8 MCG/ACT Aerosol; Inhale 2 Inhalations into the lungs 2 (two) times a day. Dispense: 10.7 g; Refill: 2 Symptoms improving. Due to the ongoing drainage discussed with patient that I want her to try an antihistamine for 2 to 3 weeks and if this is not effective would like for her to try some efer-euc-knikepr Pepcid 20 mg for couple of weeks. To see if maybe this helps with chronic cough. Would like tosee patient back in the office in about 4 to 6 weeks. 2. Hypertension associated with type 2 diabetes mellitus (HHS/HCC) (CMS/[facility]) - amLODIPine (NORVASC) 5 MG tablet; [...] Encounter ipratropium-albuterol (DUONEB) 0.5-2.5 (3) MG/3ML Solution Krohoho-Xijowhjkaul-Upcpjlcabs (BREZTRI AEROSPHERE) 160-9-4.8 MCG/ACT Aerosol amLODIPine (NORVASC) 5 MG tablet Cannot display discharge medications since this is not an admission. PCP: JENNIFER Davila 12/12/2023 documented in this encounter Plan of Treatment Upcoming Encounters Date Type Department Care Team (Late st Contact Info) Description 10/09/2024 9:30 AM BUSINESS ACCOUNT EXECUTIVE Office Visit [facility] [address] Carlos Farris MD [address] [facility] [address] [place] [address] 11/02/2024 10:20 AM BUSINESS ACCOUNT EXECUTIVE Office Visit [facility] Medical Group Family & Internal Medicine - [address] [phone] Sami Liriano DO [address] [place] [address] documented as of this encounter Visit Diagnoses Diagnosis Hypertension associated with type 2 diabetes mellitus ([facility] HHS/[facility])- Primary Mucopurulent chronic bronchitis ([facility]) Mucopurulent chronic bronchitis documented in this encounter Additional Health Concerns Assessment Noted Time PHQ-9 Depression Total Score: 0 10/11/19 22 10:50 AM BUSINESS ACCOUNT EXECUTIVE documented as of this encounter Care Teams Respiratory Assistant Relationship Specialty Start Date End Date Sami Liriano DO [address] [place] [address] PCP - General FAMILY PRACTICE 12/24/19 documented as of this encounter
--- OUTSIDE RECORDS SUMMARY | 2024-09-19 19:37 | XMS_ITS | Encounter Summary ---
Author Organization [facility] Address [facility]. [place], [place] [address] [place] [address] Care Team Providers Care Audience Coordinator Name Role Phone Sami Liriano Primary Care Provider + Reason for Visit * Reason Onset Date Comments Follow Up Call 02/07/2024 [facility] 02/06-02/12/24 Encounter Details Date Type Department Care Team (Latest Contact Info) Description 02/13/2024 Hospital Follow-up Call [facility] [place] [address] Alicia Elkins LPN Follow Up Call ([facility] 02/06-02/12/24) Social History Tobacco Use Types Packs/Day Years Used Date Smoking Tobacco: Former Cigarettes 0.5 12 0 09/30/1964 - 09/30/1976 Passive Smoke Exposure: Never Smokeless Tobacco: Never Alcohol Use Standard Drinks/Week Comments Not Currently 0 (1 standard drink = 0.6 oz pur e alcohol) 2 cocktails on some Sundays [facility] Utilities Answer Date Recorded In [...] any time in the past 12 m [facility], were you homeless or living in a retirement (including now)? No 02/08/2024 Comments No Sex and Gender Information Value Date Recorded Sex Assigned at Not on file Legal Sex Female 12:43 PM SENIOR ADMINISTRATIVE SERVICES OFFICER Gender Identity Female 12/18/2021 6:31 AM [...] Contact Info) Description 10/09/2024 9:30 AM SENIOR ADMINISTRATIVE SERVICES OFFICER Office Visit [facility]-[address] [phone] Carlos Farris MD [facility] [place] [address] 11/02/2024 10:20 AM SENIOR ADMINISTRATIVE SERVICES OFFICER Office Visit [facility] Group Family & Internal Medicine - [address] [address] Sami Liriano, [address] [place] [address] documented as of this encounter Goals Goal [...] Score: 0 10/11/19 22 10:50 AM SENIOR ADMINISTRATIVE SERVICES OFFICER documented as of this encounter Care Teams Audience Coordinator Relationship Specialty Start Date End Date Sami Liriano DO [address] [place] [address] PCP - General FAMILY PRACTICE 12/24/19 documented as of this encounter
--- OUTSIDE RECORDS SUMMARY | 2024-09-19 19:37 | XMS_ITS | Encounter Summary ---
Author Organization [facility] Address [address] [place] [address]. [place], [place] [address] [place] [address] Care Team Providers Care Hygiene Coordinator Name Role Phone Sami Liriano Primary Care Provider + Reason for Visit * Reason Comments Cough 1 week follow up Hypertension Encounter Details Date Type Department Care Team (Late st Contact Info) Description 11/28/2023 3:20 PM PRINCIPAL HARDWARE ARCHITECT [facility] [phone] [place] [address] Barb Sexton APNP [facility] [place], [place] [phone] Cough (1 week follow up ); Hypertension [...] on file Legal Sex Female 12:43 PM PRINCIPAL HARDWARE ARCHITECT Gender Identity Female 12/18/2021 6:31 AM CDT Sexual Orientation Straight 01/15/2022 6: 11 AM CDT 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 Not on file Not on file Not on franck e documented as of this encounter Last Filed Vital Signs Vital Sign Reading Time Taken Comments Blood Pressure 144/80 11/28/2023 4:05 PM PRINCIPAL HARDWARE ARCHITECT Pulse 77 11/28/2023 3:10 PM PRINCIPAL HARDWARE ARCHITECT Temperature 35.9 ??C (96.7 ??F) 11/28/2023 3:10 PM CS T Respiratory Rate 18 11/28/2023 3:10 PM PRINCIPAL HARDWARE ARCHITECT Oxygen Saturation 97% 11/28/2023 3:10 PM PRINCIPAL HARDWARE ARCHITECT Inhaled Oxygen Concentration - - Weight 112.9 kg (248 lb 12.8 oz) 11/28/2023 3:10 PM PRINCIPAL HARDWARE ARCHITECT Height 152.4 cm (5') 11/28/2023 3:10 PM PRINCIPAL HARDWARE ARCHITECT Body Mass Index 48.59 11/28/2023 3:10 PM PRINCIPAL HARDWARE ARCHITECT documented in this encounter Progress Notes * JENNIFER Davila - 11/28/2023 3:20 PM CST Images from the original note were not included. [facility] [...] at night, Disp: 90 tablet, Rfl: 0 Lonrelf-Rjrhbfjxkbj-Tsbivdnwcv (BREZTRI AEROSPHERE) 160-9-4.8 MCG/ACT Aerosol, Inhale 2 [...] of left knee 11/08/2019 Depression Diabetes mellitus ([facility]/HCC) ([facility]/HCC) GERD (gastroesophageal reflux disease) Hypertension Overactive bladder Surgical History: Past Surgical History: Procedure Laterality Date ANKLE SURGERY left SECTION COLONOSCOPY N/A 04/27/2020 COLONOSCOPY WITH BIOPSY X 3 performed by Joel Keenan MD at [facility] OR COLONOSCOPY N/A 11/20/2023 Colonoscopy with Polypectomies performed by Joel Keenan MD at [facility] OR EGD EYE SURGERY FRACTURE SURGERY HERNIA REPAIR HYSTERECTOMY JOINT REPLACEMENT SHOULDER SURG PROC UNLISTED right TONSILLECTOMY TOTAL KNEE ARTHROPLASTY right Social History: Social History Socioeconomic History Marital status: Number of children: 2 Occupational History 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 Stage 3a chronic kidney disease ([facility]/HCC) [place] ARM DRAW 4. Hyperlipidemia associated with type 2 diabetes mellitus ([facility]HS/HCC) ([facility]) [place] ARM DRAW 5. Hypertension associated with type 2 diabetes mellitus (HHS/HCC) ([facility]) [place] ARM DRAW 6. Vitamin D deficiency [place] ARM DRAW Recommendations and Plan: 1. Type 2 diabetes mellitus with other circulatory complication, without long- term current use of insulin ([facility]) - LIPID PANEL - TSH W/REFLEX - COMPREHENSIVE METABOLIC PANEL - CBC W/DIFF AUTOMATED - ALBUMIN URINE RANDOM - VITAMIN D, 25 [place] - [place] ARM DRAW 2. Stage 3a chronic kidney disease ([facility]) - LIPID PANEL - TSH W/REFLEX - COMPREHENSIVE METABOLIC PANEL - CBC W/DIFF AUTOMATED - ALBUMIN URINE RANDOM - VITAMIN D, 25 [place] - [place] ARM DRAW 3. Hyperlipidemia associated with type 2 diabetes mellitus (HHS/HCC) ([facility]) - LIPID PANEL - TSH W/REFLEX - COMPREHENSIVE METABOLIC PANEL - CBC W/DIFF AUTOMATED - ALBUMIN URINE RANDOM - VITAMIN D, 25 [place] - [place] ARM DRAW 4. Hypertension associated with type 2 diabetes mellitus (HHS/HCC) ([facility]) - LIPID PANEL - TSH W/REFLEX - [...] 6. Chronic bronchitis, unspecified chronic bronchitis type ([facility]/HCC) ([facility]) Symptoms suggestive of chronic bronchitis. Given that [...] Sami Liriano DO at 12/03/2023 1:16 PM PRINCIPAL HARDWARE ARCHITECT CIPAL HARDWARE ARCHITECT CIPAL HARDWARE ARCHITECT documented in this encounter Plan of Treatment Upcoming Encounters Date Type Department Care Team (Late st Contact Info) Description 10/09/2024 9:30 AM PRINCIPAL HARDWARE ARCHITECT Office Visit [facility] [address] Carlos Farris MD [facility] [address] [place] [address] 11/02/2024 10:20 AM PRINCIPAL HARDWARE ARCHITECT [facility] Family [facility] Internal Medicine - [address] [phone] Sami Liriano DO [address] [place] [address] documented as of this encounter Procedures Procedure Name Priority Date/Time Associated Diagnosis Comments VENIPUNC ARM DRAW Routine 11/28/2023 3:4 6 PM PRINCIPAL HARDWARE ARCHITECT Type 2 diabetes mellitus with other circulatory complication, without long-term current use of insulin ([facility]/HCC HHS/HCC) Stage 3a chronic kidney disease ([facility]/HCC HHS/HCC) Hyperlipidemia associated with type 2 diabetes mellitus ([facility]/HCC HHS/HCC) Hypertension associated with type 2 diabetes mellitus ([facility]/HCC HHS/HCC) Vitamin D deficiency TSH W/REFLEX Routine 11/28/2023 3:02 PM PRINCIPAL HARDWARE ARCHITECT Type 2 diabetes mellitus with other circulatory complication, without long-term current use of insulin (CMS/HCC HHS/HCC) Stage 3a chronic kidney disease (CMS/HCC HHS/HCC) Hyperlipidemia associated with type 2 diabetes mellitus (CMS/HCC HHS/HCC) Hypertension associated with type 2 diabetes mellitus (CMS/HCC HHS/HCC) ALBUMIN URINE RANDOM W/CREATININE Routine 11/28/2023 3:02 PM PRINCIPAL HARDWARE ARCHITECT Type 2 diabetes mellitus with other circulatory complication, without long-term current use of insulin (CMS/HCC HHS/HCC) Stage 3a chronic kidney disease (CMS/HCC HHS/HCC) Hyperlipidemia associated with type 2 diabetes mellitus (CMS/HCC HHS/HCC) Hypertension associated with type 2 diabetes mellitus (CMS/HCC HHS/HCC) COMPREHENSIVE METABOLIC PANEL Routine 11/28/2023 3:02 PM PRINCIPAL HARDWARE ARCHITECT Type 2 diabetes mellitus with other circulatory complication, without long-term current use of insulin (CMS/HCC HHS/HCC) Stage 3a chronic kidney disease (CMS/HCC HHS/HCC) Hyperlipidemia associated with type 2 diabetes mellitus (CMS/HCC HHS/HCC) Hypertension associated with type 2 diabetes mellitus (CMS/HCC HHS/HCC) LIPID PANEL Routine 11/28/2023 3:02 PM PRINCIPAL HARDWARE ARCHITECT Type 2 diabetes mellitus with other circulatory complication, without long-term current use of insulin (CMS/HCC HHS/HCC) Stage 3a chronic kidney disease (CMS/HCC HHS/HCC) Hyperlipidemia associated with type 2 diabetes mellitus (CMS/HCC HHS/HCC) Hypertension associated with type 2 diabetes mellitus (CMS/HCC HHS/HCC) CBC W/DIFF AUTOMATED Routine 11/28/2023 3:02 PM PRINCIPAL HARDWARE ARCHITECT Type 2 diabetes mellitus with other circulatory complication, without long-term current use of insulin (CMS/HCC HHS/HCC) Stage 3a chronic kidney disease (CMS/HCC HHS/HCC) Hyperlipidemia associated with type 2 diabetes mellitus (CMS/HCC HHS/HCC) Hypertension associated with type 2 diabetes mellitus (CMS/HCC HHS/HCC) VITAMIN D, 25 OH Routine 11/28/2023 3:02 PM PRINCIPAL HARDWARE ARCHITECT Type 2 diabetes mellitus with other circulatory complication, without long-term current use of insulin (CMS/HCC HHS/HCC) Stage 3a chronic kidney disease (CMS/HCC HHS/HCC) Vitamin D deficiency Hyperlipidemia associated with type 2 diabetes mellitus (CMS/HCC HHS/HCC) Hypertension associated with type 2 diabetes mellitus (CMS/HCC HHS/HCC) documented in this encounter Results * (ABNORMAL) VITAMIN D, 25 OH (11/28/2023 3:02 PM PRINCIPAL HARDWARE ARCHITECT) VITAMIN D 25 HYDROXY TOTAL S/P/B 26.0(L) 30 - 100 NG/ML 11/28/2023 8:19 PM PRINCIPAL HARDWARE ARCHITECT [facility] Comment: ? DEFICIENT ??<20 ?INSUFFICIENT 20-30 ?SUFFICIENT 30-100 11/28/2023 3:02 PM PRINCIPAL HARDWARE ARCHITECT Sami Liriano DO LABORATORY Final Re sult Performing Organization Address [facility] de Phone Number [facility] [address] [place] [address], * ALBUMIN URINE RANDOM (11/28/2023 3:02 PM PRINCIPAL HARDWARE ARCHITECT) Pathologist [facility] MICROALBUMIN (U) 15.8 <20 MG/L 11/28/19 7:44 PM PRINCIPAL HARDWARE ARCHITECT [facility] CREATININE RANDOM (U) 135.8 MG/DL 11/28/2023 7:44 PM PRINCIPAL HARDWARE ARCHITECT [facility] ALBUMIN/CREAT RATIO 11.6 <30 MG/G 11/28/2023 7:44 PM PRINCIPAL HARDWARE ARCHITECT [facility] URINE SPECIMEN / Unknown 11/28/2023 3:02 PM PRINCIPAL HARDWARE ARCHITECT Sami Liriano DO URINE ORDERABLES Final R esult Performing Organization Address [facility] Co de Phone Number [address] [phone], * (ABNORMAL) CBC W/DIFF AUTOMATED (11/28/2023 3:02 PM PRINCIPAL HARDWARE ARCHITECT) Pathologist [facility] WBC 13.65(H) 4.00 - 10.80 x10'3/uL 11/28/2023 7:34 PM PRINCIPAL HARDWARE ARCHITECT [facility] RBC 4.41 4.10 - 5.40 x10'6/uL 11/28/2023 7:34 PM [place] HGB 11.9(L) 12.0 - 16.0 G/DL 11/28/2023 7:34 PM [place] HCT 37.7 36.0 - 47.0 % 11/28/2023 7:34 PM [place] MCV 85.5 78.0 - 100.0 FL 11/28/2023 7:34 PM [place] MCH 27.0 27.0 - 31.0 PG 11/28/2023 7:34 PM [place] MCHC 31.6(L) 33.0 - 36.0 G/DL 11/28/2023 7:34 PM [place] RDW 14.1 11.5 - 14.5 % 11/28/2023 7:34 PM [place] PLT 273 150 - 350 x10'3/uL 11/28/2023 7:34 PM [place] MPV 9.8 7.4 - 10.4 FL 11/28/2023 7:34 PM [place] DIFFERENTIAL TYPE AUTOMATED DIFFERENTIAL 11/28/2023 7:34 PM [place] NEUTROPHILS % 71.8 % 11/28/2023 7:34 PM [place] LYMPHOCYTES % 21.8 % 11/28/2023 7:34 PM [place] MONOCYTES % 5.6 % 11/28/2023 7:34 PM [place] EOSINOPHILS % 0.1 % 11/28/2023 7:34 PM [place] BASOPHILS % 0.1 % 11/28/2023 7:34 PM [place] IMMATURE GRANS % 0.6 % 11/28/2023 7:34 PM [place] ABS. NEUTROPHILS 9.79(H) 1.60 - 8.30 x10'3/uL 11/28/2023 7:34 PM PRINCIPAL HARDWARE ARCHITECT [facility] ABS. LYMPHOCYTES 2.98 0.80 - 4.70 x10'3/uL 11/28/2023 7:34 PM PRINCIPAL HARDWARE ARCHITECT [facility] ABS. MONOCYTES 0.77 0.00 - 1.50 x10'3/uL 11/28/2023 7:34 PM PRINCIPAL HARDWARE ARCHITECT [facility] ABS. EOSINOPHILS 0.02 0.00 - 0.40 x10'3/uL 11/28/2023 7:34 PM PRINCIPAL HARDWARE ARCHITECT [facility] ABS. BASOPHILS 0.01 0.00 - 0.20 x10'3/uL 11/28/2023 7:34 PM PRINCIPAL HARDWARE ARCHITECT [facility] ABS. IMMATURE GRANULOCYTES 0.08(H) 0.00 - 0.03 x10'3/uL 11/28/2023 7:34 PM PRINCIPAL HARDWARE ARCHITECT [facility] 11/28/2023 3:02 PM PRINCIPAL HARDWARE ARCHITECT us Sami Liriano DO LABORATORY Final Re sult [facility] [address] [place] [address], [place] [phone] * (ABNORMAL) COMPREHENSIVE METABOLIC PANEL (11/28/2023 3:02 PM PRINCIPAL HARDWARE ARCHITECT) [facility] SODIUM S/P/B 145 136 - 145 MMOL/L 11/28/2023 8:19 PM PRINCIPAL HARDWARE ARCHITECT [facility] POTASSIUM S/P/B 4.0 3.5 - 5.1 MMOL/L 11/28/2023 8:19 PM [place] CHLORIDE S/P/B 107 98 - 107 MMOL/L 11/28/2023 8:19 PM PRINCIPAL HARDWARE ARCHITECT [facility] CO2 29.3 21 - 32 MMOL/L 11/28/2023 8:19 PM [place] GLUCOSE 131(H) 70 - 99 MG/DL 11/28/2023 8:19 PM [place] BUN 21(H) 7 - 18 MG/DL 11/28/2023 8:19 PM [place] CREATININE S/P/B 1.24(H) 0.55 - 1.02 MG/DL 11/28/2023 8:19 PM [place] CALCIUM S/P/B 9.1 8.4 - 10.5 MG/DL 11/28/2023 8:19 PM [place] BILIRUBIN TOTAL S/P/B 0.7 0.2 - 1.0 MG/DL 11/28/2023 8:19 PM [place] ALKALINE PHOSPHATASE S/P/B 90 55 - 142 U/L 11/28/2023 8:19 PM [place] AST 12(L) 15 - 37 U/L 11/28/2023 8:19 PM [place] ALT 20 14 - 59 U/L 11/28/2023 8:19 PM [place] TOTAL PROTEIN S/P/B 7.0 6.4 - 8.2 G/DL 11/28/2023 8:19 PM [place] ALBUMIN S/P/B 3.9 3.4 - 5.0 G/DL 11/28/2023 8:19 PM [place] ANION GAP 8.7 5 - 15 MMOL/L 11/28/2023 8:19 PM [place] Comment:REFERENCE RANGE NOT ESTABLISHED OSMOLALITY (CALC) 305 MOSM/KG 024 8:19 PM [facility] Comment:REFERENCE RANGE NOT ESTABLISHED GFR ESTIMATE 47(L) >90 ML/MIN/1. 73 M2 11/28/2023 8:19 PM [place] GFR NOTES GFR REFERENCE S: 11/28/2023 8:19 PM [place] Comment: THE ESTIMATED GFR IS CALCULATED USING [...] FAILURE: <15 ml/min/1.73 m2 11/28/2023 3:02 PM PRINCIPAL HARDWARE ARCHITECT Sami Liriano LABORATORY Final Re sult Performing Organization Address [facility]/ZIP Co de Phone Number [facility] [address] [place] [address], [place] [phone] * TSH W/REFLEX (11/28/2023 3:02 PM PRINCIPAL HARDWARE ARCHITECT) TSH 0.947 0.358 - 3.740 uIU/ML 11/28/2023 8:19 PM PRINCIPAL HARDWARE ARCHITECT [facility] 11/28/2023 3:02 PM PRINCIPAL HARDWARE ARCHITECT Sami Nicole Liriano LABORATORY Final Re sult Performing Organization Address [facility] Co de Phone Number [facility] [address] [place] [address], [place] [phone] * LIPID PANEL (11/28/2023 3:02 PM PRINCIPAL HARDWARE ARCHITECT) CHOLESTEROL 164 <200 MG/DL 11/28/2023 8:19 PM PRINCIPAL HARDWARE ARCHITECT [facility] TRIGLYCERIDES 115 <150 MG/DL 11/28/2023 8:19 PM PRINCIPAL HARDWARE ARCHITECT [facility] HDL 67 >40 MG/DL 11/28/2023 8:19 PM PRINCIPAL HARDWARE ARCHITECT [facility] KAMILA MANILA LDL-C 74 <100 MG/DL 11/28/2023 8:19 PM PRINCIPAL HARDWARE ARCHITECT [facility] KAMILA, MANILA VLDL CALCULATION 23 5 - 28 MG/DL 11/28/2023 8:19 PM PRINCIPAL HARDWARE ARCHITECT [facility] CHOL/HDL RATIO 2.4 0.0 - 4.0 11/28/2023 8:19 PM PRINCIPAL HARDWARE ARCHITECT [facility] MAN[facility] LDL/HDL 1.1 0.41 - 2.13 11/28/2023 8:19 PM PRINCIPAL HARDWARE ARCHITECT [facility] NON HDL CHOLESTEROL 97 <140 MG/DL 11/28/2023 8:19 PM PRINCIPAL HARDWARE ARCHITECT [facility] 11/28/2023 3:02 PM PRINCIPAL HARDWARE ARCHITECT us Sami Liriano DO LABORATORY Final Re sult [facility] [address] [facility] [place] [address], documented in this encounter Visit Diagnoses Diagnosis Chronic bronchitis, unspecified chronic bronchitis type ([facility]/HCC)- Primary Type 2 diabetes mellitus with other circulatory complication, without long-term current use of insulin ([facility]) Stage 3a chronic kidney disease ([facility]/HCC) Hyperlipidemia associated with type 2 diabetes mellitus ([facility]/HCC) Hypertension associated with type 2 diabetes mellitus ([facility]/HCC) Vitamin D deficiency Unspecified vitamin D deficiency documented in this encounter Additional Health Concerns Assessment Noted Time PHQ-9 Depression Total Score: 0 10/11/19 22 10:50 AM PRINCIPAL HARDWARE ARCHITECT documented as of this encounter Care Teams Hygiene Coordinator Relationship Specialty Start Date End Date Sami Liriano DO [address] [place] [address] PCP - General FAMILY PRACTICE 12/24/19 documented as of this encounter
--- OUTSIDE RECORDS SUMMARY | 2024-09-19 19:37 | XMS_ITS | Encounter Summary ---
Author Organization [facility] Address [address] [place] [address]. 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 Not on file Not on franck e documented as of this encounter Plan of Treatment Upcoming Encounters Date Type Department Care Team (Late st Contact Info) Description 10/09/2024 9:30 AM HAND ETCHER Office Visit [facility] [address] Carlos Farris MD Three [facility] [address] [place] [address] 11/02/2024 10:20 AM HAND ETCHER Office Visit [facility] Family & Internal Medicine - [address] [phone] Sami Liriano DO [address] [place] [address] documented as of this encounter Visit Diagnoses Not on filedocumented in this encounter Additional Health Concerns Assessment Noted Time PHQ-9 Depression Total Score: 0 10/11/19 22 10:50 AM HAND ETCHER documented as of this encounter Care Teams Automotive Service Technician Relationship Specialty Start Date End Date Sami Liriano DO [address] [place] [phone] PCP - General FAMILY PRACTICE 12/24/19 documented as of this encounter
--- OUTSIDE RECORDS SUMMARY | 2024-09-19 19:37 | XMS_ITS | Encounter Summary ---
Author Organization [facility] Address [address] [place] [address]. [place], [place] [address] [place] [address] Care Team Providers Care Sintering Plant Supervisor Name Role Phone Sami Liriano Primary Care Provider + Encounter Details Date Type Department Care Team (Late st Contact Info) Description 12/20/2023 Orders Only [facility] Orthopedic & Sports Medicine - [place] [address] [place] [address] Manuelito Marcelino PA [address] [place] [address] Social History Tobacco Use Types Packs/Day Years [...] on file Legal Sex Female 12:43 PM FOUNTAIN CLERK Gender Identity Female 12/18/2021 6:31 AM CDT Sexual Orientation Straight 01/15/2022 6: 11 AM CDT 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 Not on file Not on file Not on franck e documented as of this encounter Plan of Treatment Upcoming Encounters Date Type Department Care Team (Late st Contact Info) Description 10/09/2024 9:30 AM FOUNTAIN CLERK Office Visit [facility] [address] Carlos Farris MD Three [facility] [address] [place] [address] 11/02/2024 10:20 AM FOUNTAIN CLERK Office Visit [facility] Family & Internal Medicine - [address] [phone] Sami Liriano DO [address] [place] [address] Scheduled Orders Name Type Priority Associated Diagnoses Orde r Schedule XR KNEE RT 3V Imaging Routine Arthritis of knee Expected: 12/27/2023, Expires: 12/19/2024 documented as of this encounter Visit Diagnoses Diagnosis Arthritis of knee- Primary Unspecified arthropathy, lower leg documented in this encounter Additional Health Concerns Assessment Noted Time PHQ-9 Depression Total Score: 0 10/11/19 22 10:50 AM FOUNTAIN CLERK documented as of this encounter Care Teams Sintering Plant Supervisor Relationship Specialty Start Date End Date Sami Liriano DO [address] [place] [address] PCP - General FAMILY PRACTICE 12/24/19 documented as of this encounter
--- OUTSIDE RECORDS SUMMARY | 2024-09-19 19:37 | XMS_ITS | Encounter Summary ---
Author Organization [facility] Address [address] [place] [address]. 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 Family & Internal Medicine - [address] [phone] Sami Liriano DO [address] [place] [address] documented as of this encounter Visit Diagnoses Not on filedocumented in this encounter Additional Health Concerns Assessment Noted Time PHQ-9 Depression Total Score: 0 10/11/19 22 10:50 AM PUBLIC FINANCE SPECIALIST documented as of this encounter Care Teams Investment Consultant Relationship Specialty Start Date End Date Sami Liriano DO [address] [place] [address] PCP - General FAMILY PRACTICE 12/24/19 documented as of this encounter
--- OUTSIDE RECORDS SUMMARY | 2024-09-19 19:37 | XMS_ITS | Encounter Summary ---
Author Organization [facility] Address [address] [place] [address]. [place], [place] [id number] [place] [id number] Care Team Providers Care [employer] Name Role Phone Sami Liriano DO Primary Care Provider + Reason for Visit * Reason Comments Hypertension consult Shortness Of Breath Edema * Consultation (Urgent) - Authorized Specialty Diagnoses / Procedures Referred By Contact Referred To Contact CARDIOLOGY / Cardiology Diagnoses Leg swelling Shortness of breath Stage 3a chronic kidney disease ([facility]) Hypertension associated with type 2 diabetes mellitus ([facility]) Procedures OFFICE/OUTPATIENT NEW LOW MDM 30-44 MINUTES OFFICE/OUTPT VISIT,NEW,LEVL IV OFFICE/OUTPT VISIT,NEW,LEVL V OFFICE/OUTPT VISIT,EST,LEVL III OFFICE/OUTPT VISIT,EST,LEVL IV OFFICE/OUTPT VISIT,EST,LEVL V Sami Liriano DO [address] [place] [address] Phone: tel: fax: [facility] [phone] Phone: tel: fax: Referral ID Status Reason Start Date Expiration Date Visits Requested Visits Authorized [id number] Authorized Specialty Services 02/03/2024 03/04/2025 99 99 Encounter Details Date Type Department Care Team (Latest Contact Info) Description 02/07/2024 1:45 PM CDT Office Visit [facility] [phone] Carlos Farris MD [facility] [address] [place] [address] Hypertension (consult); Shortness Of Breath ; Edema Social History Tobacco Use Types Packs/Day Years Used Date Smoking Tobacco: Former Cigarettes 0.5 12 0 09/30/1964 - 09/30/1976 Passive Smoke Exposure: Never Smokeless Tobacco: Never Alcohol Use Standard Drinks/Week Comments Not Currently 0 (1 standard drink = 0.6 oz pur e alcohol) 2 cocktails on some Sundays [facility] Utilities Answer Date Recorded In the past 12 months has e [employer], gas, oil, or water [employer] threatened to shut off services in your [...] time in the past 12 m [employer], were you homeless or living in a senior care (including now)? 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 [place], [place] [address] Cardiology Consult PCP: Sami Liriano DO Cardiac [...] of left knee 11/08/2019 Depression Diabetes mellitus ([facility]) GERD (gastroesophageal reflux disease) Hypertension Overactive bladder Positive colorectal cancer screening using Cologuard test 04/19/2020 Added automatically from request for surgery [id number] Past Surgical History: Procedure Laterality Date ANKLE SURGERY left SECTION COLONOSCOPY N/A 04/27/2020 COLONOSCOPY WITH BIOPSY X 3 performed by Joel Keenan MD at [facility] OR COLONOSCOPY N/A 11/20/2023 Colonoscopy with Polypectomies performed by Joel Keenan MD at [facility] OR [facility] EYE SURGERY FRACTURE SURGERY HERNIA [...] at night 10/21/23 Yes Sami PLuchtefeld, DO Uprzzqi-Dikvdbqwhll-Kglffgbncw (BREZTRI AEROSPHERE) 160-9-4.8 MCG/ACT Aerosol Inhale 2 Inhalations into the lungs 2 (two) times a day. 12/12/23 Yes JENNIFER aDvila escitalopram (LEXAPRO) 20 MG tablet TAKE 1 [...] Portions of this note were dictated using i[employer]ms speech recognition software. Occasional wrong wordor sound-alike substitutions may have occurred due to the inherent limitations of voice recognition software. Please read the chart carefully and recognize, using context, where the substitutions may have occurred. documented in this encounter Plan of Treatment Upcoming Encounters Date Type Department Care Team (Late st Contact Info) Description 10/09/2024 9:30 AM [employer] Office Visit [facility] [phone] Carlos Farris MD Three [facility] [address] [place] [address] 11/02/2024 10:20 AM [employer] Office Visit [facility] - [id number] [place] [address] Sami Liriano DO [facility] [place] [address] documented as of this encounter Visit Diagnoses Diagnosis Dyslipidemia- Primary Other and unspecified hyperlipidemia Essential (primary) hypertension Unspecified essential hypertension Severe obstructive sleep apnea Obstructive sleep apnea (adult) (pediatric) Acute heart failure, unspecified heart failure type ([facility]) documented in this encounter Additional Health Concerns Assessment Noted Time PHQ-9 Depression Total Score: 0 10/11/19 22 10:50 AM [employer] documented as of this encounter Care Teams [employer] Relationship Specialty Start Date End Date Sami Liriano DO [address] [place] [address] PCP - General FAMILY PRACTICE 12/24/19 documented as of this encounter
--- OUTSIDE RECORDS SUMMARY | 2024-09-19 19:37 | XMS_ITS | Encounter Summary ---
Author Organization [facility] Address [facility]. [place], [place] [id number] [place] [id number] Care Team Providers Care Biomed Tech Name Role Phone Sami Liriano Nicole AGUIAR Primary Care Provider + Reason for Referral * (Routine) - New Request Specialty Diagnoses / Procedures Referred By Shereen benton Referred To Contact Procedures PT eval and treat Vianey Yang DO 1 [place] [address] Phone: tel: fax: Referral ID Status Reason Start Date Expiration Date V isits Requested Visits Authorized [id number] New Request 02/11/2024 02/10/2025 1 1 * Imaging (Urgent) - Pending Review Specialty Diagnoses / Procedures Referred By Sherene benton Referred To Contact RADIOLOGY Procedures USE ECHOCARDIOGRAM W CON USE ECHOCARDIOGRAM [place] [address] Phone: tel: [phone] fax: Referral ID Status Reason Start Date Expiration Date V isits Requested Visits Authorized [id number] Pending Review 02/07/2024 02/06/2025 1 1 * Imaging (Emergency) - New Request Specialty Diagnoses / Procedures Referred By Contac t Referred To Contact RADIOLOGY Procedures USV COLETTE DUPLEX LOW EXT HAN Dillon Her MD,PHD [address] [place] [address] Phone: tel: fax: Referral ID Status Reason Start Date Expiration Date V isits Requested Visits Authorized [id number] New Request 02/07/2024 02/06/2025 1 1 * Imaging (Emergency) - New Request Specialty Diagnoses / Procedures Referred By Contac t Referred To Contact RADIOLOGY Procedures CTA CHEST PE PROTOCOL Dillon Her MD,PHD [address] [place] [address] Phone: tel: fax: Referral ID Status Reason Start Date Expiration Date V isits Requested Visits Authorized [id number] New Request 02/07/2024 02/06/2025 1 1 Reason for Visit * Reason Comments Shortness Of Breath Edema * Auth/Cert (Routine) Specialty Diagnoses / Procedures Referred By Contac t Referred To Contact Diagnoses Shortness of breath CHF (congestive heart failure) ([facility] HHS/HCC) Dependent edema Procedures [place] [address] Phone: tel: [phone] fax: Referral ID Status Reason Start Date Expiration Date Visits Re quested Visits Authorized [id number] 1 1 Encounter Details Date Type Department Care Team (Late st Contact Info) Description 02/07/2024 3:16 PM CDT - 02/12/2024 2:08 PM CDT Hospital Encounter [facility] Telemetry Unit B [address] [place], [place] [id number] Dillon Her MD,PHD [address] [place] [phone] Winter Ch MD ONE [place], [place] [id number] [phone] (Work) Sury Finch, DO 1 [facility] [place] [address] Vianey Yang, DO 1 [place] [id number] Shortness Of Breath ; Edema Discharge Disposition: Home or Self Care (Routine Discharge) Social History Tobacco Use Types Packs/Day Years Used Date Smoking Tobacco: Former Cigarettes 0.5 12 0 09/30/1964 - 09/30/1976 Passive Smoke Exposure: Never Smokeless Tobacco: Never Alcohol Use Standard Drinks/Week Comments Not Currently 0 (1 standard drink = 0.6 oz pur e alcohol) 2 cocktails on some Sundays [facility] Receptorities Answer Date Recorded In the past 12 [...] on file Legal Sex 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 Patient was seen by her waist fitter today and directed to the ER. She [...] input(s): PH , PCO2 , PO2 , O3HTNYTAREIS , BICARBWB , BASEDEFICIT , BASEEXCESS in the last 168 hours. No results found for this or any previous visit. Radiology Reports : USV COLETTE DUPLEX LOW EXT HAN Result Date: 02/10/2024 VENOUS DUPLEX IMAGING BILATERAL LOWER EXTREMITY VASCULAR LAB Pat.Name: HAIR SARGENT Pat.ID: [id number] .Date: 02/08/2024 : [id number], Colten wing Exam Time: 6:02:00 PM Study [...] 02/09/2024 Echocardiography Report Pat.Name: HAIR SARGENT Pat.ID: [id number] St.Date: 02/08/2024 Refer.MD: WINTER CH H Exam Time: 12:54:00 PM Study Type:ECHO WITH CARDIAC DOPPLER COMP Height: 60 in Weight: 250 lb BSA: 2.05 m2 Age: 5 1955,68Y Sex: F BP: 140/63 HR: 77 bpm Sonogrphr: Karen Fisher [facility] Pat. Stat.:Inpatient Room: [facility] Reason for Study:CHF History / Clinical:Hypertension, GERD, Sleep Apnea, Renal Insufficiency, LE edma; PMH- Obese, HTN, xtob, CKD3, MOR-CPAP, Le edema- ondiuretics, prior BLEV @ [place] 03/07/20 negative Procedures: 2D, M-mode, Doppler, Color [...] 35.6 mm Right and Left 0.762 [place] 64.5 mm Ventricular Septum IVSd 1.18 cm [...] PM ECG 12 lead Result Date: 02/07/[address] [place] Test Date: 2024-02-07 Pat Name: HAIR SARGENT Department: Room: INNE Gender: Female Housing Inspectors: : 1955 Requested By: CASSANDRA HUBBARD Order Number: [id number] Reading MD: Kj Abel Measurements Intervals [place] Rate: 67 P: 73 NE: 202 QRS: 26 QRSD: 97 T: 65 QT: 428 QTc: 453 Interpretive Statements SINUS RHYTHM NONSPECIFIC T-WAVE ABNORMALITY Compared to ECG 02/07/2024 15:32:15 No significant changes Other ischemic changes, not STEMI Preliminary EKG Interpretation by Xochilt BROWN ECG 12 lead Result Date: 02/07/2024 [facility] [address] Test Date: 2024-02-07 Pat Name: HAIR SARGENT Department: 41 Room: [facility] Gender: Female Housing Inspectors: [id number] : 1955 Requested By: XOCHILT GEIGER Order Number: [id number] Reading MD: Kj Abel Measurements Intervals [place] Rate: 79 P: 75 NE: 193 QRS: 28 QRSD: 96 T: 56 [...] 12 lead Result Date: 01/30/2024 [facility] Test Date: 2024-01-28 Pat Name: HAIR SARGENT Department: 85 Room: EXAM 303 Gender: Female Housing Inspectors: YAYO : 1955 Requested By: NATALY ESPINOSA Order Number: [id number] Reading MD: Elvin Wood Measurements Intervals [place] Rate: 76 P: 61 NE: 196 QRS: 61 QRSD: 93 T: 66 [...] Sexton. Signed by: Barb Sexton Generic drug: Lziiqrj-Pjgisdxbhlq-Hcndcicutf ipratropium-albuterol 0.5-2.5 (3) MG/3ML Soln Commonly known [...] MG/3ML) 0.083% nebulizer solutionIndications :Mucopurulent chronic bronchitis ([facility]),Chronic bronchitis, unspecified chronic bronchitis type ([facility]),Bronchitis ,Wheezing Take 3 mLs (2.5 mg total) [...] of major depressive disorder without prior episode ([facility]) TAKE 1 TABLET BY MOUTH EVERY DAY 90 tablet 1 3 ipratropium-albuter ol (DUONEB) 0.5-2.5 (3) MG/3ML Solution Take 3 mLs by nebulization. 4 magnesium oxide (MAG-OX) 400 (240 Mg) MG tablet Take 1 tablet (400 mg total) by mouth 2 (two) times daily. Budeson-Glycopyrrol -Formoterol (BREZTRI AEROSPHERE) 160-9-4.8 MCG/ACT AerosolIndications: Mucopurulent chronic bronchitis ([facility]) Inhale 2 Inhalations into the lungs 2 (two) times a day. 10.7 g 2 4 07/30/20 24 lisinopril (PRINIVIL) 20 MG tablet Take 1 tablet (20 mg total) by mouth daily for 30 days. 30 tablet 4 03/18/20 24 metFORMIN ER (GLUCOPHAGE-XR) 500 MG 24 hr tabletIndications:T ype 2 diabetes mellitus without complication, without long-term current use of insulin ([facility]) take 1 tablet by mouth every day with breakfast 90 tablet 4 04/30/20 24 NEBULIZER DEVICE, DME,Indications:Muc opurulent chronic bronchitis ([facility]) Take 1 Device by nebulization every 6 (six) hours as needed. 1 Device 4 07/06/20 24 NEBULIZER/TUBING/MO UTHPIECE KIT, DME,Indications:Muc opurulent chronic bronchitis ([facility]) 1 kit by Other route every 6 [...] for Documentation Clarification Hair Arredondo ; VISIT [id number] Query Response Sent: 02/14/24 11:14 CDT From: Vianey Yang DO Query question: Please clarify the diagnosis of ACUTE KIDNEY INJURY ([place]) as documented in this record Provider response: Clinically undetermined Original Query Sent: 02/14/24 09:18 CDT From: David Bob RN, CCDS To: Vianey Yang DO [...] sister has walkers Prior Function Level of [place] Independent with ADLs;Independent with functional transfers;Independent with ambulation;Independent with homemaking with ambulation Device used at baseline None Baseline Ambulation Distance/Assistance limited community Fall History Yes Reason for fall slipped Most recent fall last week How many falls in the past year? 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) Signed Copy delivered * Carlos Farris MD - 02/11/2024 8:31 AM CDT Images from the original note were not included. [place], [place] [address] Cardiology Consult PCP: Sami Liriano, Cardiac Problem [...] of left knee 11/08/2019 Depression Diabetes mellitus ([facility]) GERD (gastroesophageal reflux disease) Hypertension Overactive bladder Positive colorectal cancer screening using Cologuard test 04/19/2020 Added automatically from request for surgery [id number] Past Surgical History: Procedure Laterality Date ANKLE SURGERY left SECTION COLONOSCOPY N/A 04/27/2020 COLONOSCOPY WITH BIOPSY X 3 performed by Joel Keenan MD at [facility] OR COLONOSCOPY N/A 11/20/2023 Colonoscopy with Polypectomies performed by Joel Keenan MD at [facility] OR EGD EYE SURGERY FRACTURE SURGERY [...] Reported on 02/07/2024 07/26/23 Sami Liriano DO Rejzrdx-Acdfybnuzhf-Diefxpoqce (BREZTRI AEROSPHERE) 160-9-4.8 MCG/ACT Aerosol Inhale 2 [...] Portions of this note were dictated using [employer] speech recognition software. Occasional wrong wordor sound-alike [...] Intake/Output Summary (Last 24 hours) at 02/11/2024 0751 Last data filed at 02/11/2024 0356 Gross [...] input(s): PH , PCO2 , PO2 , [id number] , BICARBWB , BASEDEFICIT , BASEEXCESS in the last 168 hours. No results found for this or any previous visit. Imaging USE ECHOCARDIOGRAM W CON Result Date: 02/09/2024 Echocardiography Report Pat.Name: HAIR SARGENT Pat.ID: [id number] St.Date: 02/08/2024 Refer.MD: WINTER CH H Exam Time: 12:54:00 PM Study Type:ECHO WITH CARDIAC DOPPLER COMP Height: 60 in Weight: 250 lb BSA: 2.05 m2 Age: 5 1955,68Y Sex: F BP: 140/63 HR: 77 bpm Sonogrphr: Karen Fisher RDCS Pat. Stat.:Inpatient Room: [facility] Reason for Study:CHF History / Clinical:Hypertension, GERD, Sleep Apnea, Renal Insufficiency, LE edma; PMH- Obese, HTN, xtob, CKD3, MOR-CPAP, Le edema- ondiuretics, prior BLEV @ [place] 03/07/20 negative Procedures: 2D, M-mode, Doppler, Color [...] 35.6 mm Right and Left 0.762 [place] 64.5 mm Ventricular Septum IVSd 1.18 cm [...] EXTREMITY VASCULAR LAB Pat.Name: HAIR SARGENT Pat.ID: [id number] St.Date: 02/08/2024 Refer.: [id number], Colten wing Exam Time: 6:02:00 PM Study [...] PM ECG 12 lead Result Date: 02/07/2024 [place] [address] Test Date: 2024-02-07 Pat Name: HAIR BOOTHLyndon Department: 41 Room: INNE Gender: Female Housing Inspectors: : 1955 Requested By: CASSANDRA HUBBARD Order Number: [id number] Reading MD: Kj Abel Measurements Intervals [place] Rate: 67 P: 73 NE: 202 QRS: 26 QRSD: 97 T: 65 QT: 428 QTc: 453 Interpretive Statements SINUSRHYTHM NONSPECIFIC T-WAVE ABNORMALITY Compared to ECG 02/07/2024 15:32:15 No significant changes Other ischemic changes, not STEMI Preliminary EKG Interpretation by Xochilt BROWN Electronicallysigned by Kj Abel at 02-07-2024 18:59:20 CDT ECG 12 lead Result Date: 02/07/2024 [place] [address] Test Date: 2024-02-07 Pat Name: HAIR SARGENT Department: 41 Room: INPR Gender: Female Housing Inspectors: [id number] : 1955 Requested By: XOCHILT Pinto Number: [id number] Reading MD: Kj Abel Measurements Intervals [place] Rate: 79 P: 75 NE: 193 QRS: 28 QRSD: 96 T: 56 [...] ECG 12 lead Result Date: 01/30/2024 [facility] Test Date: 2024-01-28 Pat Name: HAIR SARGENT Department: 85 Room: EXAM 303 Gender: Female Housing Inspectors: : 1955 Requested By: NATALY ESPINOSA Order Number: [id number] Reading MD: Elvin Wood Measurements Intervals [place] Rate: 76 P: 61 NE:196 QRS: 61 QRSD: 93 T: 66 QT: [...] encounter of 02/07/24 ECG 12 lead Narrative [place] [place] [address] [place] [address] Test Date: 2024-02-07 Pat Name: [facility] Department: 41 Room: INPR Gender: Female Housing Inspectors: [id number] : 1955 Requested By: XOCHILT GEIGER Order Number: [id number] Reading MD: Kj bAel Measurements Intervals [place] Rate: 79 P: 75 NE: 193 QRS: 28 QRSD: 96 T: 56 QT: 398 QTc: 458 Interpretive Statements SINUS RHYTHM NONSPECIFIC T-WAVE ABNORMALITY Compared to ECG 01/28/2024 12:24:58 Ventricular premature complex(es) no longer present T-wave abnormality still present Other ischemic changes, not STEMI Preliminary EKG Interpretation by QUETA Callaway ECG 12 lead Narrative [place] [place] [address] [facility] Test Date: 2024-02-07 Pat Name: HAIR [facility] Department: 41 Room: INPR Gender: Female Housing Inspectors: : 1955 Requested By: CASSANDRA HUBBARD Order Number: [id number] Reading MD: Kj Abel Measurements Intervals [place] Rate: 67 P: 73 NE: 202 QRS: 26 QRSD: 97 T: 65 [...] RN - 02/10/2024 11:09 AM CDT 02/10/24 110 Referral Data Source of Information Patient Patient Information Primary Caregiver Self Current living Situation Family members Type of Residence Private residence Support System Immediate family Are you employed? Not Employed Baseline ADL's Functional Status Independent Behavior Oriented;Cooperative Communication Talks;Understands speaking;Understands [place] screening tool This is a screening [...] Latha Le Financial Concerns: none [facility] Discharge needs: Care Coordination Team will provide discharge planning as needed, and will re-evaluate based on recommendations and treatment course. * Carlos Farris MD - 02/10/2024 8:36 AM CDT Images from the original note were not included. [place], [place] [address] Cardiology Consult PCP: Sami Liriano, Cardiac Problem [...] of left knee 11/08/2019 Depression Diabetes mellitus ([facility]/HCC HHS/HCC) GERD (gastroesophageal reflux disease) Hypertension Overactive bladder Positive colorectal cancer screening using Cologuard test 04/19/2020 Added automatically from request for surgery [id number] Past Surgical History: Procedure Laterality Date ANKLE SURGERY left SECTION COLONOSCOPY N/A 04/27/2020 COLONOSCOPY WITH BIOPSY X 3 performed by Joel Keenan MD at [facility] OR COLONOSCOPY N/A 11/20/2023 Colonoscopy with Polypectomies performed by Joel Keenan MD at [facility] OR EGD EYE SURGERY FRACTURE SURGERY [...] Reported on 02/07/2024 07/26/23 Sami Liriano DO Qqahmys-Gtjqzghxxuc-Ywlzdfktag (BREZTRI AEROSPHERE) 160-9-4.8 MCG/ACT Aerosol Inhale 2 [...] Portions of this note were dictated using [employer] speech recognition software. Occasional wrong wordor sound-alike [...] input(s): PH , PCO2 , PO2 , J9ZJESLEHTGL , BICARBWB , BASEDEFICIT , BASEEXCESS in the last 168 hours. No results found for this or any previous visit. Imaging USE ECHOCARDIOGRAM W CON Result Date: 02/09/2024 Echocardiography Report Pat.Name: DAYAN HAIR L Pat.ID: [id number] St.Date: 02/08/2024 Refer.MD: WINTER CH H Exam Time: 12:54:00 PM Study Type:ECHO WITH CARDIAC DOPPLER COMP Height: 60 in Weight: 250 lb BSA: 2.05 m2 Age: 5 1955,68Y Sex: F BP: 140/63 HR: 77 bpm Sonogrphr: Karen Fisher [facility] Pat. Stat.:Inpatient Room: [facility] Reason for Study:CHF History / Clinical:Hypertension,GERD, Sleep Apnea, Renal Insufficiency, LE edma; PMH- Obese, HTN, xtob, CKD3, MOR-CPAP, Le edema- on diuretics, prior BLEV @ [place] 03/07/20 negative Procedures: 2D, M-mode, Doppler, Color [...] Ventricle 35.6mm Right and Left 0.762 Major [place] 64.5 mm Ventricular Septum IVSd 1.18 cm [...] EXTREMITY VASCULAR LAB Pat.Name: HAIR SARGENT Pat.ID: [id number] St.Date: 02/08/2024 Refer.: [id number], Colten wing Exam Time: 6:02:00 PM Study [...] PM ECG 12 lead Result Date: 02/07/2024 [place] [address] Test Date: 2024-02-07 Pat Name: [facility]IR [facility] Department: 41 Room: INNE Gender: Female Housing Inspectors: : 1955 Requested By: CASSANDRA HUBBARD Order Number: [id number] Reading MD: Kj Abel Measurements Intervals [place] Rate: 67 P: 73 NE: 202 QRS: 26 QRSD: 97 T: 65 QT: 428 QTc: 453 Interpretive Statements SINUS RHYTHM NONSPECIFIC T-WAVE ABNORMALITY Compared to ECG 02/07/2024 15:32:15 No significant changes Other ischemic changes, not STEMI Preliminary EKG Interpretation by Xochilt BROWN ECG 12 lead Result Date: 02/07/2024 [place] [address] Test Date: 2024-02-07 Pat Name: [facility] Department: 41 Room: INNE Gender: Female Housing Inspectors: [id number] : 1955 Requested By: XOCHILT GEIGER Order Number: [id number] Reading MD: Kj Abel Measurements Intervals [place] Rate: 79 P: 75 NE: 193 QRS: 28 QRSD: 96 T: 56 QT: 398 QTc: 458 Interpretive Statements SINUS RHYTHM NONSPECIFIC T-WAVE ABNORMALITY Compared to ECG 01/28/2024 12:24:58 Ventricular premature complex(es) no longer present T- wave abnormality still present Other ischemic changes, not STEMI Preliminary EKG Interpretation by QUETA Callwaay Electronically signed by Kj Fox 02-07-2024 16:37:15 [...] 12 lead Result Date: 01/30/2024 [facility] Test Date: 2024-01-28 Pat Name: HAIR SARGENT Department: 85 Room: EXAM 303 Gender: Female Housing Inspectors: : 1955 Requested By: NATALY ESPINOSA Order Number: [id number] Reading MD: Elvin Wood Measurements Intervals [place] Rate: 76 P: 61 NE: 196 QRS: 61 QRSD: 93 T: 66 [...] 02/07/24 [address] [facility] [address] Test Date: 2024-02-07 Pat Name: HAIR SARGENT Department: 41 Room: INNE Gender: Female Housing Inspectors: [id number] : 1955 Requested By: XOCHILT GEIGER Order Number: [id number] Reading MD: Kj Abel Measurements Intervals [place] Rate: 79 P: 75 NE: 193 QRS: 28 QRSD: 96 T: 56 QT: 398 QTc: 458 Interpretive Statements SINUS RHYTHM NONSPECIFIC T-WAVE ABNORMALITY Compared to ECG 01/28/2024 12:24:58 Ventricular premature complex(es) no longer present T-wave abnormality still present Other ischemic changes, not STEMI Preliminary EKG Interpretation by QUETA Callaway ECG [address] [facility] [address] Test Date: 2024-02-07 Pat Name: HAIR SARGENT Department: 41 Room: INNE Gender: Female Housing Inspectors: : 1955 Requested By: CASSANDRA HUBBARD Order Number: [id number] Reading MD: Kj Abel Measurements Intervals [place] Rate: 67 P: 73 NE: 202 QRS: 26 QRSD: 97 T: 65 [...] input(s): PH , PCO2 , PO2 , [id number] , BICARBWB , BASEDEFICIT , BASEEXCESS in the last 168 hours. No results found for this or any previous visit. X-Ray No results found. Assessment/Plan: CHF (congestive heart failure) ([facility]) CHF exacerbation proBNP 141 Had preserved EF [...] Finch DO 02/09/2024 2:51 PM * Koki nAaya PA-C - 02/09/2024 11:49 AM CDT Cardiology Progress Note Reason for follow up: CHF Primary Enroute Controller: Brenton Tele:SR 80s Assessment/Plan: SNOMED CT(R) 1. [...] encounter of 02/07/24 ECG 12 lead Narrative [facility] [place] [address] [facility] Test Date: 2024-02-07 Pat Name: HAIR BOOTHLyndon Department: 41 Room: [facility] Gender: Female Housing Inspectors: [id number] : 1955 Requested By: XOCHILT GEIGER Order Number: [id number] Reading MD: Kj Abel Measurements Intervals [place] Rate: 79 P: 75 NE: 193 QRS: 28 QRSD: 96 T: 56 QT: 398 QTc: 458 Interpretive Statements SINUS RHYTHM NONSPECIFIC T-WAVE ABNORMALITY Compared to ECG 01/28/2024 12:24:58 Ventricular premature complex(es) no longer present T-wave abnormality still present Other ischemic changes, not STEMI Preliminary EKG Interpretation by QUETA Callaway ECG 12 lead Narrative [place] [place] [address] [facility] Test Date: 2024-02-07 Pat Name: HAIR SARGENT Department: 41 Room: [facility] Gender: Female Housing Inspectors: : 1955 Requested By: CASSANDRA HUBBARD Order Number: [id number] Reading MD: Kj Abel Measurements Intervals [place] Rate: 67 P: 73 NE: 202 QRS: 26 QRSD: 97 T: 65 [...] input(s): PH , PCO2 , PO2 , [id number] , BICARBWB , BASEDEFICIT , BASEEXCESS in the last 168 hours. No results found for this or any previous visit. X-Ray No results found. Assessment/Plan: CHF (congestive heart failure) ([facility]) CHF exacerbation proBNP 141 Had preserved EF [...] of her echocardiogram. AMANDA NICHOLSON MD * Christa Hodgson RN - 02/08/2024 2:50 AM CDT [...] extremity edema. Patient was seen by her waist fitter today and directed to the ER. She [...] taking: Reported on 02/07/2024) 18 g 2 Pbgwwdf-Rekznacpiuz-Nmsnafmiyq (BREZTRI AEROSPHERE) 160-9-4.8 MCG/ACT Aerosol Inhale 2 [...] of left knee 11/08/2019 Depression Diabetes mellitus ([facility]) GERD (gastroesophageal reflux disease) Hypertension Overactive bladder Positive colorectal cancer screening using Cologuard test 04/19/2020 Added automatically from request for surgery [id number] Past Surgical History: Procedure Laterality Date ANKLE SURGERY left SECTION COLONOSCOPY N/A 04/27/2020 COLONOSCOPY WITH BIOPSY X 3 performed by Joel Keenan MD at [facility] OR COLONOSCOPY N/A 11/20/2023 Colonoscopy with Polypectomies performed by Joel Keenan MD at [facility] OR EGD EYE SURGERY FRACTURE SURGERY HERNIA REPAIR HYSTERECTOMY JOINT REPLACEMENT SHOULDER SURG PROC UNLISTED right TONSILLECTOMY TOTAL KNEE ARTHROPLASTY right Social History Social History Socioeconomic History Marital status: Number of children: 2 Occupational History 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 Mildly ill-appearing. Breathing comfortably on [...] input(s): PH , PCO2 , PO2 , [id number] , BICARBWB , BASEDEFICIT , BASEEXCESS in the last 168 hours. No results found for this or any previous visit. Imagining & Other Studies See official reports for full details Results for orders placed or performed during the hospital encounter of 02/07/24 ECG 12 lead Narrative [place] Test Date: 2024-02-07 Pat Name: HAIR SARGENT Department: 41 Room: INNE Gender: Female Housing Inspectors: [id number] : 1955 Requested By: XOCHILT GEIGER Order Number: [id number] Reading MD: Kj Abel Measurements Intervals [place] Rate: 79 P: 75 NE: 193 QRS: 28 QRSD: 96 T: 56 QT: 398 QTc: 458 Interpretive Statements SINUS RHYTHM NONSPECIFIC T-WAVE ABNORMALITY Compared to ECG 01/28/2024 12:24:58 Ventricular premature complex(es) no longer present T-wave abnormality still present Other ischemic changes, not STEMI Preliminary EKG Interpretation by QUETA Callaway ECG 12 lead Narrative [place] Test Date: 2024-02-07 Pat Name: HAIR SARGENT Department: 41 Room: [facility] Gender: Female Housing Inspectors: : 1955 Requested By: CASSANDRA HUBBARD Order Number: [id number] Reading MD: Kj Abel Measurements Intervals [place] Rate: 67 P: 73 NE: 202 QRS: 26 QRSD: 97 T: 65 [...] note was dictated with the use of [employer] Medical dictation software and was proofread to [...] worse than the right. She saw her waist fitter in clinic today who recommended she come to the emergency department to beadmitted to the hospital. This is the patient's third emergency department visit for similar symptoms. 3 weeks ago she was evaluated at [place] and states she had a CT of her chest at that time. She was evaluated little joan 2 weeks ago at [facility] in [place]. She reports relatively unremarkable evaluations of both [...] XR CHEST PORTABLE Final Result by User, [id number] (02/06 984) EXAM: XR CHEST PORTABLE DATE: 02/07/2024 1531 [...] hypoxic I reviewed old medical records. Dr. Farirs indicated that she would like the patient admitted. Medication management: Potassium chloride is administered orally and intravenously for repletion of mild hypokalemia Lasix is administered as recommended by the patient's waist fitter and her clinic note for diuresisin the [...] CDT Pt arrives to the ER from waist fitter office for increase sob and swelling to lower extremities. Pt states doctor states I'm in heart failure . Pt reports already on 200mg of lasix at home. Denies any pain documented in this encounter Plan of Treatment Upcoming Encounters Date Type Department Care Team (Late st Contact Info) Description 10/09/2024 9:30 AM COMPUTER TECHNOLOGY TRAINER [facility] Visit [facility] [phone] Carlos Farris MD [address] [facility] [address] [place] [address] 11/02/2024 10:20 AM COMPUTER TECHNOLOGY TRAINER Office Visit [facility] Family & Internal Medicine - [address] [phone] [place] [address] [place] [address] [phone] documented as of this encounter Goals Goal [...] - 99 mg/dL 02/12/2024 12:08 PM CDT [facility] 02/12/2024 11:4 5 AM CDT Vianey Yang DO POCT ORDERABLES - DEVICE Final Result Performing Organization Address City/[facility]/ZIP Co de Phone Number [facility] [address] [place] [address], [place] [phone] * (ABNORMAL) POCT glucose (02/12/2024 5:32 AM CDT) GLUCOSE POC 134(H) 70 - 99 mg/dL 02/12/2024 5:43 AM CDT [facility] 02/12/2024 5:32 AM CDT Vainey Yang DO POCT ORDERABLES - DEVICE Final Result Performing Organization Address [facility] Co de Phone Number [facility] [address] [place] [address], [place] [phone] * (ABNORMAL) CBC W/DIFF AUTOMATED (02/12/2024 5:29 AM CDT) WBC 9.61 4.5 - 11.0 x10'3/uL 02/12/2024 6:35 AM CDT [facility] RBC 4.55 4.20 - 5.40 x10'6/uL 02/12/2024 6:35 AM CDT [facility] HGB 12.2 12.0 - 16.0 G/DL 02/12/2024 6:35 AM CDT [facility] HCT 38.1 38.0 - 48.0 % 02/12/2024 6:35 AM CDT [facility] MCV 83.7 81.0 - 99.0 FL 02/12/2024 6:35 AM CDT [facility] MCH 26.8(L) 27.0 - 31.0 PG 02/12/2024 6:35 AM CDT [facility] MCHC 32.0 32.0 - 36.0 G/DL 02/12/2024 6:35 AM CDT [facility] RDW 14.6(H) 11.5 - 14.5 % 02/12/2024 6:35 AM CDT [facility] PLT 262 130 - 400 x10'3/uL 02/12/2024 6:35 AM CDT [facility] MPV 10.1 9.3 - 12.2 FL 02/12/2024 6:35 AM CDT [facility] DIFFERENTIAL TYPE AUTOMATED DIFFERENTIAL 02/12/2024 6:35 AM CDT [facility] NEUTROPHILS % 49.9 % 02/12/2024 6:35 AM T [facility] LYMPHOCYTES % 36.8 % 02/12/2024 6:35 AM T [facility] MONOCYTES % 8.1 % 02/12/2024 6:35 AM CDT [facility] EOSINOPHILS 4.1 % 02/12/2024 6:35 AM CDT [facility] BASOPHILS 0.8 % 02/12/2024 6:35 AM CDT [facility] IMMATURE GRANS % 0.3 % 02/12/20 6:35 AM CDT [facility] ABS. NEUTROPHILS 4.79 1.80 - 7.70 x10'3/uL 02/12/2024 6:35 AM CDT [facility] ABS. LYMPHOCYTES 3.54 1.00 - 4.80 x10'3/uL 02/12/2024 6:35 AM CDT [facility] ABS. MONOCYTES 0.78 0.24 - 0.86 x10'3/uL 02/12/2024 6:35 AM CDT [facility] ABS. EOSINOPHILS 0.39(H) 0.04 - 0.36 x10'3/uL 02/12/2024 6:35 AM CDT [facility] ABS. BASOPHILS 0.08 0.01 - 0.08 x10'3/uL 02/12/2024 6:35 AM CDT [facility] ABS. IMMATURE GRANULOCYTES 0.03 0.00 - 0.49 x10'3/uL 02/12/2024 6:35 AM CDT [facility] 02/12/2024 5:29 AM CDT us Vianey Yang DO LABORATORY Final Res ult [facility] [address] [place] [address], [place] [phone] * (ABNORMAL) BASIC METABOLIC PANEL (02/12/2024 5:29 AM CDT) GLUCOSE 126(H) 70 - 99 MG/DL 02/12/2024 6:42 AM CDT [facility] BUN 34(H) 7 - 18 MG/DL 02/12/2024 6:42 AM CDT [facility] CREATININE S/P/B 1.41(H) 0.55 - 1.02 MG/DL 02/12/2024 6:42 AM CDT [facility] SODIUM S/P/B 137 136 - 145 MMOL/L 02/12/2024 6:42 AM CDT [facility] POTASSIUM S/P/B 4.0 3.5 - 5.1 MMOL/L 02/12/2024 6:42 AM CDT [facility] CHLORIDE S/P/B 103 100 - 108 MMOL/L 02/12/2024 6:42 AM CDT [facility] CO2 27.4 21 - 32 MMOL/L 02/12/2024 6:42 AM CDT [facility] CALCIUM S/P/B 10.0 8.5 - 10.1 MG/DL 02/12/2024 6:42 AM CDT [facility] ANION GAP 6.6 5 - 15 MMOL/L 02/12/2024 6:42 AM CDT [facility] BUN CREATININE RATIO 24.1 6 - 26 02/12/2024 6:42 AM T [facility] GFR ESTIMATE 40(L) >90 ML/MIN/1.7 3 M2 02/12/2024 6:42 AM CDT [facility] Comment: NOTE: eGFR is not calculated for patients <18 years of age. This is an estimated GFR calculation using the new CKD EPI creatinine equation without race and so does not require a correction factor for race. This estimated GFR should not be used for calculating drug doses. 02/12/2024 5:29 AM CDT Vianey Yang DO LABORATORY Final Res ult [facility] [address] [place] [address], * (ABNORMAL) POCT glucose (02/11/2024 7:54 PM CDT) [facility] Signature GLUCOSE POC 124(H) 70 - 99 mg/dL 02/11/2024 8:20 PM CDT [facility] 02/11/2024 7:54 PM CDT us Vianey Yang DO POCT ORDERABLES - DEVICE Final Result Performing Organization Address City/[facility]/ZIP Co de Phone Number [facility] [address] [place] [address], [place] [phone] * (ABNORMAL) POCT glucose (02/11/2024 3:08 PM CDT) GLUCOSE POC 160(H) 70 - 99 mg/dL 02/11/2024 4:12 PM CDT [facility] 02/11/2024 3:08 PM CDT us Vianey Yang DO POCT ORDERABLES - DEVICE Final Result Performing Organization Address [facility] Co de Phone Number [facility] [address] [place] [address], [place] [phone] * (ABNORMAL) POCT glucose (02/11/2024 11:43 AM CDT) GLUCOSE POC 130(H) 70 - 99 mg/dL 02/11/2024 12:01 PM CDT [facility] 02/11/2024 11:4 3 AM CDT us Vianey Yang DO POCT ORDERABLES - DEVICE Final Result Performing Organization Address City/[facility]/ZIP Co de Phone Number [facility] [address] [place] [address], [place] [phone] * (ABNORMAL) CBC W/DIFF AUTOMATED (02/11/2024 6:46 AM CDT) WBC 8.91 4.5 - 11.0 x10'3/uL 02/11/2024 7:18 AM CDT [facility] RBC 4.22 4.20 - 5.40 x10'6/uL 02/11/2024 7:18 AM CDT [facility] HGB 11.5(L) 12.0 - 16.0 G/DL 02/11/2024 7:18 AM CDT [facility] HCT 35.9(L) 38.0 - 48.0 % 02/11/2024 7:18 AM CDT [facility] MCV 85.1 81.0 - 99.0 FL 02/11/2024 7:18 AM CDT [facility] MCH 27.3 27.0 - 31.0 PG 02/11/2024 7:18 AM CDT [facility] MCHC 32.0 32.0 - 36.0 G/DL 02/11/2024 7:18 AM CDT [facility] RDW 14.5 11.5 - 14.5 % 02/11/2024 7:18 AM CDT [facility] PLT 236 130 - 400 x10'3/uL 02/11/2024 7:18 AM CDT [facility] MPV 9.8 9.3 - 12.2 FL 02/11/2024 7:18 AM CDT [facility] DIFFERENTIAL TYPE AUTOMATED DIFFERENTIAL 02/11/2024 7:18 AM CDT [facility] NEUTROPHILS % 50.5 % 02/11/2024 7:18 AM CDT [facility] LYMPHOCYTES % 35.6 % 02/11/2024 7:18 AM CDT [facility] MONOCYTES % 10.0 % 02/11/2024 7:18 AM CDT [facility] EOSINOPHILS 3.1 % 02/11/2024 7:18 AM CDT [facility] BASOPHILS 0.6 % 02/11/2024 7:18 AM CDT [facility] IMMATURE GRANS % 0.2 % 02/11/20 7:18 AM CDT [facility] ABS. NEUTROPHILS 4.50 1.80 - 7.70 x10'3/uL 02/11/2024 7:18 AM CDT [facility] ABS. LYMPHOCYTES 3.17 1.00 - 4.80 x10'3/uL 02/11/2024 7:18 AM CDT [facility] ABS. MONOCYTES 0.89(H) 0.24 - 0.86 x10'3/uL 02/11/2024 7:18 AM CDT [facility] ABS. EOSINOPHILS 0.28 0.04 - 0.36 x10'3/uL 02/11/2024 7:18 AM CDT [facility] ABS. BASOPHILS 0.05 0.01 - 0.08 x10'3/uL 02/11/2024 7:18 AM CDT [facility] ABS. IMMATURE GRANULOCYTES 0.02 0.00 - 0.49 x10'3/uL 02/11/2024 7:18 AM CDT [facility] 02/11/2024 6:46 AM CDT us Vianey Yang DO LABORATORY Final Res ult [facility] [address] [place] [address], * (ABNORMAL) BASIC METABOLIC PANEL (02/11/2024 6:46 AM CDT) Pathologist [facility] GLUCOSE 122(H) 70 - 99 MG/DL 02/11/2024 7:33 AM CDT [facility] BUN 31(H) 7 - 18 MG/DL 02/11/2024 7:33 AM T [facility] CREATININE S/P/B 1.36(H) 0.55 - 1.02 MG/DL 02/11/2024 7:33 AM T [facility] SODIUM S/P/B 137 136 - 145 MMOL/L 02/11/2024 7:33 AM T [facility] POTASSIUM S/P/B 3.8 3.5 - 5.1 MMOL/L 02/11/2024 7:33 AM T [facility] CHLORIDE S/P/B 104 100 - 108 MMOL/L 02/11/2024 7:33 AM T [facility] CO2 27.5 21 - 32 MMOL/L 02/11/2024 7:33 AM [facility] CALCIUM S/P/B 9.6 8.5 - 10.1 MG/DL 02/11/2024 7:33 AM T [facility] ANION GAP 5.5 5 - 15 MMOL/L 02/11/2024 7:33 AM T [facility] BUN CREATININE RATIO 22.8 6 - 26 02/11/2024 7:33 AM T [facility] GFR ESTIMATE 42(L) >90 ML/MIN/1.7 3 M2 02/11/2024 7:33 AM T [facility] Comment: NOTE: eGFR is not [...] LABORATORY Final Res ult Performing Organization Address [facility] Co de Phone Number [facility] [address] [place] [address], [place] [phone] * (ABNORMAL) POCT glucose (02/11/2024 5:49 AM CDT) GLUCOSE POC 134(H) 70 - 99 mg/dL 02/11/2024 5:50 AM CDT [facility] 02/11/2024 5:49 AM CDT us Vianey Yang DO POCT ORDERABLES - DEVICE Final Result Performing Organization Address [facility] Co de Phone Number [facility] [address] [place] [address], [place] [phone] * (ABNORMAL) POCT glucose (02/10/2024 7:28 PM CDT) GLUCOSE POC 147(H) 70 - 99 mg/dL 02/10/2024 8:07 PM CDT [facility] 02/10/2024 7:28 PM CDT us Vianey Yang DO POCT ORDERABLES - DEVICE Final Result Performing Organization Address City/[facility] Co de Phone Number [facility] [address] [place] [address], [place] [phone] * (ABNORMAL) POCT glucose (02/10/2024 4:16 PM CDT) GLUCOSE POC 117(H) 70 - 99 mg/dL 02/10/2024 4:20 PM CDT [facility] 02/10/2024 4:16 PM CDT Vianey Yang DO POCT ORDERABLES - DEVICE Final Result Performing Organization Address City/[facility]/ZIP Co de Phone Number [facility] [address] [place] [address], [place] [phone] * POCT glucose (02/10/2024 11:16 AM CDT) GLUCOSE POC 98 70 - 99 mg/dL 02/10/2024 12:05 PM CDT [facility] 02/10/2024 11:1 6 AM CDT Vianey Yang DO POCT ORDERABLES - DEVICE Final Result Performing Organization Address [facility]/ZIP Co de Phone Number [facility] [address] [place] [address], [place] [phone] * (ABNORMAL) CBC W/DIFF AUTOMATED (02/10/2024 10:01 AM CDT) WBC 10.75 4.5 - 11.0 x10'3/uL 02/10/2024 10:10 AM CDT [facility] RBC 4.70 4.20 - 5.40 x10'6/uL 02/10/2024 10:10 AM CDT [facility] HGB 12.7 12.0 - 16.0 G/DL 02/10/2024 10:10 AM CDT [facility] HCT 40.9 38.0 - 48.0 % 02/10/2024 10:10 AM CDT [facility] MCV 87.0 81.0 - 99.0 FL 02/10/2024 10:10 AM CDT [facility] MCH 27.0 27.0 - 31.0 PG 02/10/2024 10:10 AM CDT [facility] MCHC 31.1(L) 32.0 - 36.0 G/DL 02/10/2024 10:10 AM CDT [facility] RDW 14.6(H) 11.5 - 14.5 % 02/10/2024 10:10 AM CDT [facility] PLT 266 130 - 400 x10'3/uL 02/10/2024 10:10 AM T [facility] MPV 9.9 9.3 - 12.2 FL 02/10/2024 10:10 AM T [facility] DIFFERENTIAL TYPE AUTOMATED DIFFERENTIAL 02/10/2024 10:10 AM T [facility] NEUTROPHILS % 56.8 % 02/10/2024 10:10 AM T [facility] LYMPHOCYTES % 31.5 % 02/10/2024 10:10 AM T [facility] MONOCYTES % 8.7 % 02/10/2024 10:10 AM T [facility] EOSINOPHILS 2.0 % 02/10/2024 10:10 AM T [facility] BASOPHILS 0.6 % 02/10/2024 10:10 AM T [facility] IMMATURE GRANS % 0.4 % 02/10/20 10:10 AM T [facility] ABS. NEUTROPHILS 6.11 1.80 - 7.70 x10'3/uL 02/10/2024 10:10 AM T [facility] ABS. LYMPHOCYTES 3.39 1.00 - 4.80 x10'3/uL 02/10/2024 10:10 AM T [facility] ABS. MONOCYTES 0.94(H) 0.24 - 0.86 x10'3/uL 02/10/2024 10:10 AM CDT [facility] ABS. EOSINOPHILS 0.21 0.04 - 0.36 x10'3/uL 02/10/2024 10:10 AM CDT [facility] ABS. BASOPHILS 0.06 0.01 - 0.08 x10'3/uL 02/10/2024 10:10 AM CDT [facility] ABS. IMMATURE GRANULOCYTES 0.04 0.00 - 0.49 x10'3/uL 02/10/2024 10:10 AM CDT [facility] 02/10/2024 10:0 1 AM CDT us Vianye Yang DO LABORATORY Final Res ult [facility] [address] [place] [address], * (ABNORMAL) BASIC METABOLIC PANEL (02/10/2024 10:01 AM CDT) GLUCOSE 133(H) 70 - 99 MG/DL 02/10/2024 10:37 AM CDT [facility] BUN 28(H) 7 - 18 MG/DL 02/10/2024 10:37 AM CDT [facility] CREATININE S/P/B 1.40(H) 0.55 - 1.02 MG/DL 02/10/2024 10:37 AM CDT [facility] SODIUM S/P/B 136 136 - 145 MMOL/L 02/10/2024 10:37 AM CDT [facility] POTASSIUM S/P/B 4.0 3.5 - 5.1 MMOL/L 02/10/2024 10:37 AM CDT [facility] CHLORIDE S/P/B 103 100 - 108 MMOL/L 02/10/2024 10:37 AM CDT [facility] CO2 26.3 21 - 32 MMOL/L 02/10/2024 10:37 AM CDT [facility] CALCIUM S/P/B 10.0 8.5 - 10.1 MG/DL 02/10/2024 10:37 AM CDT [facility] ANION GAP 6.7 5 - 15 MMOL/L 02/10/2024 10:37 AM CDT [facility] BUN CREATININE RATIO 20.0 6 - 26 02/10/2024 10:37 AM CDT [facility] GFR ESTIMATE 40(L) >90 ML/MIN/1.7 3 M2 02/10/2024 10:37 AM CDT [facility] Comment: NOTE: eGFR is not calculated for patients <18 years of age. This is an estimated GFR calculation using the new CKD EPI creatinine equation without race and so does not require a correction factor for race. This estimated GFR should not be used for calculating drug doses. 02/10/2024 10:0 1 AM CDT Vianey Yang DO LABORATORY Final Res ult [facility] [address] [place] [address], [place] [phone] * (ABNORMAL) POCT glucose (02/10/2024 6:33 AM CDT) [facility] Signature GLUCOSE POC 124(H) 70 - 99 mg/dL 02/10/2024 6:52 AM CDT [facility] 02/10/2024 6:33 AM CDT us Vianey Yang DO POCT ORDERABLES - DEVICE Final Result [facility] [address] [place] [address], * (ABNORMAL) POCT glucose (02/09/2024 7:20 PM CDT) GLUCOSE POC 148(H) 70 - 99 mg/dL 02/09/2024 7:23 PM CDT [facility] 02/09/2024 7:20 PM CDT Saulkat Finch DO POCT ORDERABLES - DEVICE Final R esult Performing Organization Address City/[facility]/ZIP Co de Phone Number [address] [address], * (ABNORMAL) POCT glucose (02/09/2024 3:50 PM CDT) GLUCOSE POC 102(H) 70 - 99 mg/dL 02/09/2024 4:26 PM CDT [facility] 02/09/2024 3:50 PM CDT Saulkat Finch DO POCT ORDERABLES - DEVICE Final R esult Performing Organization Address City/[facility]/ZIP Co de Phone Number [address] [address], [place] [phone] * (ABNORMAL) POCT glucose (02/09/2024 12:05 PM CDT) GLUCOSE POC 117(H) 70 - 99 mg/dL 02/09/2024 12:53 PM CDT [facility] 02/09/2024 12:0 5 PM CDT Saulkat Finch DO POCT ORDERABLES - DEVICE Final R esult [facility] [address] [place] [address], * (ABNORMAL) BASIC METABOLIC PANEL (02/09/2024 12:05 PM CDT) [facility] GLUCOSE 122(H) 70 - 99 MG/DL 02/09/2024 12:32 PM CDT [facility] BUN 20(H) 7 - 18 MG/DL 02/09/2024 12:32 PM CDT [facility] CREATININE S/P/B 1.20(H) 0.55 - 1.02 MG/DL 02/09/2024 12:32 PM CDT [facility] SODIUM S/P/B 138 136 - 145 MMOL/L 02/09/2024 12:32 PM CDT [facility] POTASSIUM S/P/B 3.3(L) 3.5 - 5.1 MMOL/L 02/09/2024 12:32 PM CDT [facility] CHLORIDE S/P/B 102 100 - 108 MMOL/L 02/09/2024 12:32 PM CDT [facility] CO2 29.2 21 - 32 MMOL/L 02/09/2024 12:32 PM CDT [facility] CALCIUM S/P/B 9.8 8.5 - 10.1 MG/DL 02/09/2024 12:32 PM CDT [facility] ANION GAP 6.8 5 - 15 MMOL/L 02/09/2024 12:32 PM CDT [facility] BUN CREATININE RATIO 16.7 6 - 26 02/09/2024 12:32 PM CDT [facility] GFR ESTIMATE 49(L) >90 ML/MIN/1.7 3 M2 02/09/2024 12:32 PM CDT [facility] Comment: NOTE: eGFR is not [...] LABORATORY Final Res ult Performing Organization Address [facility] de Phone Number [facility] [address] [place] [phone], * (ABNORMAL) POCT glucose (02/09/2024 6:14 AM CDT) [facility] GLUCOSE POC 131(H) 70 - 99 mg/dL 02/09/2024 6:17 AM CDT [facility] 02/09/2024 6:14 AM CDT Sury Finch DO POCT ORDERABLES - DEVICE Final R esult Performing Organization Address [facility] de Phone Number [address] [address], * USV COLETTE DUPLEX LOW EXT HAN (02/08/2024 8:17 PM CDT) Anatomical Region Laterality Modality Extremity Vascular Ultraso und 02/08/2024 6:02 PM CDT Narrative 02/10/2024 8:36 PM CDT ?VENOUS DUPLEX IMAGING ?BILATERAL LOWER EXTREMITY ? VASCULAR LAB Pat.Name: ??HAIR SARGENT ?Pat.ID: ?[id number] ? St.Date: ?? 02/08/2024 ? Refer.MD: ??[id number], Colten wing Exam Time: 6:02:00 PM ? Study Type:KATIE VS Venous Duplex Legs HAN Height: ?60 in ?Age: ??1955,68Y ? Sex: ? F ? Sonogrphr: oMo Briceno RVT ?? Pat. Stat.:Inpatient ? History [...] EXTREMITY VASCULAR LAB Pat.Name: HAIR SARGENT Pat.ID: [id number] .Date: 02/08/2024 Lian.: [id number], Colten wing Exam Time: 6:02:00 PM Study [...] - 99 mg/dL 02/08/2024 7:41 PM CDT [facility] 02/08/2024 7:39 PM CDT [facility] DO POCT ORDERABLES - DEVICE Final R esult Performing Organization Address City/[facility] [place] [address], * (ABNORMAL) POCT glucose (02/08/2024 5:17 PM CDT) GLUCOSE POC 138(H) 70 - 99 mg/dL 02/08/2024 5:47 PM CDT [facility] 02/08/2024 5:17 PM CDT Saulkat Sanfordan DO POCT ORDERABLES - DEVICE Final R esult Performing Organization Address City/[facility] Co de Phone Number [address] [address], * USE ECHOCARDIOGRAM W CON (02/08/2024 1:37 PM CDT) Anatomical Region Laterality Modality NA Echocardiogram 02/08/2024 12:5 4 PM CDT Narrative 02/09/2024 10:47 AM CDT ?Echocardiography Report Pat.Name: ??HAIR SARGENT L ?Pat.ID: ?[id number] ? St.Date: ?? 02/08/2024 ? Refer.MD: ??WINTER [...] ? Right and Left ??0.762 ? Major [place] ?64.5 mm ? Ventricular Septum ?? IVSd [...] 02/09/2024 Echocardiography Report Pat.Name: HAIR SARGENT Pat.ID: [id number] .Date: 02/08/2024 Refer.MD: WINTER CH H Exam Time: 12:54:00 PM Study Type:ECHO WITH CARDIAC DOPPLER COMP Height: 60 in Weight: 250 lb BSA: 2.05 m2 Age: 5 1955,68Y Sex: F BP: 140/63 HR: 77 bpm Sonogrphr: Karen Fisher JEAN Pat. Stat.:Inpatient Room: [facility] Reason for Study:CHF History / Clinical:Hypertension, GERD, Sleep Apnea, Renal Insufficiency, LE edma; PMH- Obese, HTN, xtob, CKD3, MOR-CPAP, Le edema- on diuretics, prior BLEV @ [place] 03/07/20 negative Procedures: 2D, M-mode, Doppler, Color [...] 35.6 mm Right and Left 0.762 Major [place] 64.5 mm Ventricular Septum IVSd 1.18 cm [...] - 99 mg/dL 02/08/2024 12:09 PM CDT [facility] [facility] 02/08/2024 11:2 2 AM CDT Sury Finch DO POCT ORDERABLES - DEVICE Final R esult [facility] [address] [address], [place] [phone] * (ABNORMAL) BASIC METABOLIC PANEL (02/08/2024 9:57 AM CDT) GLUCOSE 158(H) 70 - 99 MG/DL 02/08/2024 10:54 AM CDT [facility] BUN 18 7 - 18 MG/DL 02/08/2024 10:54 AM CDT [facility] CREATININE S/P/B 1.15(H) 0.55 - 1.02 MG/DL 02/08/2024 10:54 AM CDT [facility] SODIUM S/P/B 138 136 - 145 MMOL/L 02/08/2024 10:54 AM CDT [facility] POTASSIUM S/P/B 3.8 3.5 - 5.1 MMOL/L 02/08/2024 10:54 AM CDT [facility] CHLORIDE S/P/B 104 100 - 108 MMOL/L 02/08/2024 10:54 AM CDT [facility] CO2 28.2 21 - 32 MMOL/L 02/08/2024 10:54 AM CDT [facility] CALCIUM S/P/B 9.6 8.5 - 10.1 MG/DL 02/08/2024 10:54 AM CDT [facility] ANION GAP 5.8 5 - 15 MMOL/L 02/08/2024 10:54 AM CDT [facility] BUN CREATININE RATIO 15.7 6 - 26 02/08/2024 10:54 AM CDT [facility] GFR ESTIMATE 51(L) >90 ML/MIN/1.7 3 M2 02/08/2024 10:54 AM CDT [facility] Comment: NOTE: eGFR is not calculated for patients <18 years of age. This is an estimated GFR calculation using the new CKD EPI creatinine equation without race and so does not require a correction factor for race. This estimated GFR should not be used for calculating drug doses. 02/08/2024 9:57 AM CDT Winter Ch MD LABORATORY Final Re sult [facility] [address] [place] [address], [place] [phone] * (ABNORMAL) CBC W/DIFF AUTOMATED (02/08/2024 9:57 AM CDT) WBC 8.87 4.5 - 11.0 x10'3/uL 02/08/2024 10:39 AM CDT [facility] RBC 4.82 4.20 - 5.40 x10'6/uL 02/08/2024 10:39 AM CDT [facility] HGB 13.0 12.0 - 16.0 G/DL 02/08/2024 10:39 AM CDT [facility] HCT 41.2 38.0 - 48.0 % 02/08/2024 10:39 AM CDT [facility] MCV 85.5 81.0 - 99.0 FL 02/08/2024 10:39 AM CDT [facility] MCH 27.0 27.0 - 31.0 PG 02/08/2024 10:39 AM CDT [facility] MCHC 31.6(L) 32.0 - 36.0 G/DL 02/08/2024 10:39 AM CDT [facility] RDW 14.2 11.5 - 14.5 % 02/08/2024 10:39 AM CDT [facility] PLT 249 130 - 400 x10'3/uL 02/08/2024 10:39 AM T [facility] MPV 10.0 9.3 - 12.2 FL 02/08/2024 10:39 AM [facility] DIFFERENTIAL TYPE AUTOMATED DIFFERENTIAL 02/08/2024 10:39 AM T [facility] NEUTROPHILS % 58.7 % 02/08/2024 10:39 AM T [facility] LYMPHOCYTES % 30.9 % 02/08/2024 10:39 AM CDT [facility] MONOCYTES % 7.0 % 02/08/2024 10:39 AM CDT [facility] EOSINOPHILS 2.3 % 02/08/2024 10:39 AM CDT [facility] BASOPHILS 0.8 % 02/08/2024 10:39 AM T [facility] IMMATURE GRANS % 0.3 % 02/08/20 10:39 AM CDT [facility] ABS. NEUTROPHILS 5.21 1.80 - 7.70 x10'3/uL 02/08/2024 10:39 AM CDT [facility] ABS. LYMPHOCYTES 2.74 1.00 - 4.80 x10'3/uL 02/08/2024 10:39 AM CDT [facility] ABS. MONOCYTES 0.62 0.24 - 0.86 x10'3/uL 02/08/2024 10:39 AM CDT [facility] ABS. EOSINOPHILS 0.20 0.04 - 0.36 x10'3/uL 02/08/2024 10:39 AM CDT [facility] ABS. BASOPHILS 0.07 0.01 - 0.08 x10'3/uL 02/08/2024 10:39 AM CDT [facility] ABS. IMMATURE GRANULOCYTES 0.03 0.00 - 0.49 x10'3/uL 02/08/2024 10:39 AM CDT [facility] 02/08/2024 9:57 AM CDT Winter Ch MD LABORATORY Final Re sult [facility] [address] [place] [address], [place] [phone] * (ABNORMAL) POCT glucose (02/08/2024 5:46 AM CDT) GLUCOSE POC 142(H) 70 - 99 mg/dL 02/08/2024 5:47 AM CDT [facility] 02/08/2024 5:46 AM CDT Sury Finch DO POCT ORDERABLES - DEVICE Final R esult Performing Organization Address City/[facility] Co de Phone Number [facility] [address] [place] [address], * (ABNORMAL) POCT glucose (02/08/2024 12:26 AM CDT) GLUCOSE POC 146(H) 70 - 99 mg/dL 02/08/2024 1:08 AM CDT [facility] 02/08/2024 12:2 6 AM CDT Winter Ch MD POCT ORDERABLES - DEVICE Final Result Performing Organization Address [facility] Co de Phone Number [facility] [address] [place] [address], * CTA CHEST PE PROTOCOL (02/07/2024 9:33 [...] * MAGNESIUM (02/07/2024 6:01 PM CDT) Pathologist [facility] MAGNESIUM 2.4 1.8 - 2.4 MG/DL 02/07/2024 11:35 PM CDT [facility] Comment:SLIGHT HEMOLYSIS, RE SULT MAY BE AFFECTED. 02/07/2024 6:01 PM CDT Winter Ch MD LABORATORY Final Re sult [facility] [address] [address], [place] [phone] * TROPONIN, QUANT (02/07/2024 6:01 PM CDT) Pathologist [facility] TROPONIN I HIGH SENSITIVITY 10 <54 ng/L 02/07/2024 6:50 PM CDT [facility] Comment: HIGH DOSES OF BIOTIN, TROPONIN-SPECIFIC AUTOANTIBODIES, AND ANTIBODY THERAPY CONTAINING HAMA MAY INTERFERE WITH THIS TEST RESULT. CORRELATION TO CLINICAL HISTORY AND PRESENTATION RECOMMENDED. 02/07/2024 6:01 PM CDT Xochilt BROWN LABORATORY Final Resu lt [facility] [address] [place] [address], * ECG 12 lead (02/07/2024 5:53 PM CDT) 02/07/2024 5:53 PM CDT Narrative [facility] ([place]) [facility] - 02/07/2024 6:59 PM CDT [facility] ? [address] [place] ? Test Date: ?2024-02-07 Pat Name: ? HAIR SARGENT ?Department: ?? 41 ? Room: ? INPR Gender: ? Female ? Housing Inspectors: ?? : ?1955 ? Requested By: CASSANDRA HUBBARD Order Number: [id number] ? Reading MD: ?? Kj Abel ? Measurements Intervals ?[place] ? Rate: ? 67 ? P: ?73 NE: ? 202 ?QRS: ?26 QRSD: ? 97 ? T: ?65 QT: ? 428 ? QTc: ?453 ? Interpretive Statements SINUS RHYTHM NONSPECIFIC T-WAVE ABNORMALITY Compared to ECG 02/07/2024 15:32:15 No significant changes Other ischemic changes, not STEMI Preliminary EKG Interpretation by Xochilt BROWN Procedure Note Kj Abel MD - 02/07/[address] Test Date: 2024-02-07 Pat Name: HAIR SARGENT Department: 41 Room: INNE Gender: Female Housing Inspectors: : 1955 Requested By: CASSANDRA HUBBARD Order Number: [id number] Reading MD: Kj Abel Measurements Intervals [place] Rate: 67 P: 73 NE: 202 QRS: 26 QRSD: 97 T: 65 QT: 428 QTc: 453 Interpretive Statements SINUS RHYTHM NONSPECIFIC T-WAVE ABNORMALITY Compared to ECG 02/07/2024 15:32:15 No significant changes Other ischemic changes, not STEMI Preliminary EKG Interpretation by Xochilt BROWN us Dillon Her MD,PHD ECG ORDERABLES Final Resu lt [facility] * XR CHEST PORTABLE (02/07/2024 [...] ??Normal appearance of the bones. Procedure Note Florin Cobos MD - 02/07/2024 EXAM: XR CHEST [...] ([place]) RAD - 02/07/2024 4:37 PM CDT ?[place] ? [address] [place] ? Test Date: ?2024-02-07 Pat Name: ? HAIR SARGENT ?Department: ?? 41 ? Room: ? INPR Gender: ? Female ? Housing Inspectors: ?? [id number] : ?1955 ? Requested By: XOCHILT GEIGER Order Number: [id number] ? Reading MD: ?? Kj Abel ? Measurements Intervals ?[place] ? Rate: ? 79 ? P: ?75 NE: ? 193 ?QRS: ?28 QRSD: ? 96 ? T: ?56 QT: ? 398 ? QTc: ?458 ? Interpretive Statements SINUS RHYTHM NONSPECIFIC T-WAVE ABNORMALITY Compared to ECG 01/28/2024 12:24:58 Ventricular premature complex(es) no longer present T-wave abnormality still present Other ischemic changes, not STEMI Preliminary EKG Interpretation by QUETA Callaway Procedure Note Kj Abel MD - 02/07/[address] Test Date: 2024-02-07 Pat Name: HAIR SARGENT Department: 41 Room: [facility] Gender: Female Housing Inspectors: [id number] : 1955 Requested By: XOCHILT GEIGER Order Number: [id number] Reading MD: Kj Abel Measurements Intervals [place] Rate: 79 P: 75 NE: 193 QRS: 28 QRSD: 96 T: 56 QT: 398 QTc: 458 Interpretive Statements SINUS RHYTHM NONSPECIFIC T-WAVE ABNORMALITY Compared to ECG 01/28/2024 12:24:58 Ventricular premature complex(es) no longer present T-wave abnormality still present Other ischemic changes, not STEMI Preliminary EKG Interpretation by QUETA Callaway us Xochilt BROWN ECG ORDERABLES Final Resu lt [facility] ([place]) FAUSTINA * (ABNORMAL) PRO-BRAIN NATRIURETIC PEPTIDE (02/07/2024 3:26 PM CDT) PRO-B TYPE NATRIURETIC PEPTIDE 141(H) <125 PG/ML 02/07/2024 4:01 PM CDT [facility] Comment: CUT POINTS ESTABLISHED BY [...] LABORATORY Final Resu lt Performing Organization Address [facility] Co de Phone Number [facility] [address] [place] [address], [place] [phone] * TROPONIN, QUANT (02/07/2024 3:26 PM CDT) TROPONIN I HIGH SENSITIVITY 9 <54 ng/L 02/07/2024 4:01 PM CDT [facility] Comment: HIGH DOSES OF BIOTIN, TROPONIN-SPECIFIC AUTOANTIBODIES, AND ANTIBODY THERAPY CONTAINING HAMA MAY INTERFERE WITH THIS TEST RESULT. CORRELATION TO CLINICAL HISTORY AND PRESENTATION RECOMMENDED. 02/07/2024 3:26 PM CDT Xochilt BROWN LABORATORY Final Resu lt Performing Organization Address City/[facility]/ZIP Co de Phone Number [facility] [address] [place] [address], [place] [phone] * (ABNORMAL) COMPREHENSIVE METABOLIC PANEL (02/07/2024 3:26 PM CDT) [facility] GLUCOSE 131(H) 70 - 99 MG/DL 02/07/2024 4:01 PM CDT [facility] BUN 25(H) 7 - 18 MG/DL 02/07/2024 4:01 PM CDT [facility] CREATININE S/P/B 1.14(H) 0.55 - 1.02 MG/DL 02/07/2024 4:01 PM CDT [facility] SODIUM S/P/B 139 136 - 145 MMOL/L 02/07/2024 4:01 PM CDT [facility] POTASSIUM S/P/B 3.3(L) 3.5 - 5.1 MMOL/L 02/07/2024 4:01 PM CDT [facility] CHLORIDE S/P/B 106 100 - 108 MMOL/L 02/07/2024 4:01 PM CDT [facility] CO2 29.9 21 - 32 MMOL/L 02/07/2024 4:01 PM CDT [facility] CALCIUM S/P/B 9.4 8.5 - 10.1 MG/DL 02/07/2024 4:01 PM T [facility] BILIRUBIN TOTAL S/P/B 0.9 0.2 - 1.2 MG/DL 02/07/2024 4:01 PM T [facility] Comment: THIS ASSAY IS NOT RECOMMENDED FOR PATIENTS UNDERGOING TREATMENT WITH ELTROMBOPAG DUE TO THE POTENTIAL FOR FALSELY ELEVATED RESULTS. TOTAL PROTEIN S/P/B 7.5 6.4 - 8.2 G/DL 02/07/2024 4:01 PM CDT [facility] ALBUMIN S/P/B 3.7 3.4 - 5.0 G/DL 02/07/2024 4:01 PM CDT [facility] AST 23 15 - 37 U/L 02/07/2024 4:01 PM CDT [facility] ALT 25 14 - 55 U/L 02/07/2024 4:01 PM CDT [facility] ALKALINE PHOSPHATASE S/P/B 93 50 - 136 U/L 02/07/2024 4:01 PM CDT [facility] ANION GAP 3.1(L) 5 - 15 MMOL/L 02/07/2024 4:01 PM CDT [facility] BUN CREATININE RATIO 21.9 6 - 26 02/07/2024 4:01 PM T [facility] A/G RATIO 1.0 1.0 - 2.0 RATIO 02/07/2024 4:01 PM T [facility] GFR ESTIMATE 52(L) >90 ML/MIN/1.7 3 M2 02/07/2024 4:01 PM CDT [facility] Comment: NOTE: eGFR is not calculated for patients <18 years of age. This is an estimated GFR calculation using the new CKD EPI creatinine equation without race and so does not require a correction factor for race. This estimated GFR should not be used for calculating drug doses. 02/07/2024 3:26 PM CDT us Xochilt BROWN LABORATORY Final Resu lt [facility] [address] [place] [address], [place] [phone] * (ABNORMAL) CBC W/DIFF AUTOMATED (02/07/2024 3:26 PM CDT) WBC 10.71 4.5 - 11.0 x10'3/uL 02/07/2024 3:44 PM CDT [facility] RBC 4.33 4.20 - 5.40 x10'6/uL 02/07/2024 3:44 PM CDT [facility] HGB 11.7(L) 12.0 - 16.0 G/DL 02/07/2024 3:44 PM CDT [facility] HCT 36.9(L) 38.0 - 48.0 % 02/07/2024 3:44 PM CDT [facility] MCV 85.2 81.0 - 99.0 FL 02/07/2024 3:44 PM CDT [facility] MCH 27.0 27.0 - 31.0 PG 02/07/2024 3:44 PM CDT [facility] MCHC 31.7(L) 32.0 - 36.0 G/DL 02/07/2024 3:44 PM CDT [facility] RDW 14.1 11.5 - 14.5 % 02/07/2024 3:44 PM CDT [facility] PLT 239 130 - 400 x10'3/uL 02/07/2024 3:44 PM CDT [facility] MPV 9.8 9.3 - 12.2 FL 02/07/2024 3:44 PM CDT [facility] DIFFERENTIAL TYPE AUTOMATED DIFFERENTIAL 02/07/2024 3:44 PM CDT [facility] NEUTROPHILS % 62.6 % 02/07/2024 3:44 PM CDT [facility] LYMPHOCYTES % 26.3 % 02/07/2024 3:44 PM CDT [facility] MONOCYTES % 8.1 % 02/07/2024 3:44 PM CDT [facility] EOSINOPHILS 1.9 % 02/07/2024 3:44 PM CDT [facility] BASOPHILS 0.7 % 02/07/2024 3:44 PM CDT [facility] IMMATURE GRANS % 0.4 % 02/07/20 3:44 PM CDT [facility] ABS. NEUTROPHILS 6.71 1.80 - 7.70 x10'3/uL 02/07/2024 3:44 PM CDT [facility] ABS. LYMPHOCYTES 2.82 1.00 - 4.80 x10'3/uL 02/07/2024 3:44 PM CDT [facility] ABS. MONOCYTES 0.87(H) 0.24 - 0.86 x10'3/uL 02/07/2024 3:44 PM CDT [facility] ABS. EOSINOPHILS 0.20 0.04 - 0.36 x10'3/uL 02/07/2024 3:44 PM CDT [facility] ABS. BASOPHILS 0.07 0.01 - 0.08 x10'3/uL 02/07/2024 3:44 PM CDT [facility] ABS. IMMATURE GRANULOCYTES 0.04 0.00 - 0.49 x10'3/uL 02/07/2024 3:44 PM CDT [facility] 02/07/2024 3:26 PM CDT us Xochilt BROWN LABORATORY Final Resu lt [facility] [address] [place] [address], documented in this encounter Visit Diagnoses Diagnosis CHF (congestive heart failure) ([facility])- Primary Congestive heart failure, unspecified Shortness of breath Dependent edema Edema documented in this encounter Admitting Diagnoses Diagnosis CHF (congestive heart failure) ([facility]) Congestive heart failure, unspecified documented in this [...] Comment: accucheck [phone] (Not Given - Provider: Tenzin Orozco RN [...] 0930, Until Discontinued 1001 (Given - Provider: BOAR Helton)2012 (Given - Provider: Ricky Rosales RN) [...] Total Score: 0 10/11/19 22 10:50 AM COMPUTER TECHNOLOGY TRAINER documented as of this encounter Care Teams Biomed Tech Relationship Specialty Start Date End Date Sami Liriano DO [address] [place] [phone] PCP - General FAMILY PRACTICE 12/24/19 documented as of this encounter
--- OUTSIDE RECORDS SUMMARY | 2024-09-19 19:37 | XMS_ITS | Encounter Summary ---
Author Organization [facility] Address [facility] [facility] [place], [place] [address] [place] [address] Care Team Providers Care Compliance Administrator Name Role Phone Sami Liriano Nicole AGUIAR [...] e alcohol) 2 cocktails on some Sundays [facility] Utilities Answer Date Recorded In the past 12 months has e electric, gas, oil, or water [email or web address] threatened to shut off services in your [...] any time in the past 12 m [facility], were you homeless or living in a snf (including now)? 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 Not on file Not on franck e documented as of this encounter Plan of Treatment Upcoming Encounters Date Type Department Care Team (Late st Contact Info) Description 10/09/2024 9:30 AM FOLDER GLUER OPERATOR Office Visit [facility] [phone] Carlos Farris MD [address] [facility] [address] [place] [address] 11/02/2024 10:20 AM FOLDER GLUER OPERATOR Office Visit [facility] Family & Internal Medicine - [address] [phone] Sami Liriano DO [address] [place] [address] documented as of this encounter Visit Diagnoses Not on filedocumented in this encounter Additional Health Concerns Assessment Noted Time PHQ-9 Depression Total Score: 0 10/11/19 22 10:50 AM FOLDER GLUER OPERATOR documented as of this encounter Care Teams Compliance Administrator Relationship Specialty Start Date End Date Sami Liriano DO [address] [place] [phone] PCP - General FAMILY PRACTICE 12/24/19 documented as of this encounter
--- OUTSIDE RECORDS SUMMARY | 2024-09-19 19:37 | XMS_ITS | Encounter Summary ---
Author Organization [facility] Address [address] [place] [address]. [place], [place] [address] [place] [phone] Care Team Providers Care Program Engagement Director Name Role Phone Sami Liriano DO Primary Care Provider + Reason for Visit * Reason Onset Date Comments Information 01/28/2024 Encounter Details Date Type Department Care Team (Late st Contact Info) Description 01/28/2024 Telephone [facility] Medical [facility] Family & Internal Medicine [phone] [place] [phone] Sami Liriano DO [address] [place] [phone] Information Social History Tobacco Use Types [...] on file Legal Sex Female 12:43 PM CIRCUS ROUSTABOUT Gender Identity Female 12/18/2021 6:31 AM CDT [...] setting her up to see urology of [facility]. Made multiple calls to their office and to pt on 01/29/2024. Called patieient back on 01/30/2024 to verify she was scheduled. Had to LMOM. The patient is to make a f/u with pcp after seeing urology * Winter Espinosa - 01/28/2024 3:31 PM CDT PT called in stated went to [facility] and is being released. Pt states doctor in [place] is going to increase on her Lasix. documented in this encounter Plan of Treatment Upcoming Encounters Date Type Department Care Team (Late st Contact Info) Description 10/09/2024 9:30 AM CIRCUS ROUSTABOUT Office Visit [facility] [phone] Carlos Farris MD [address] [facility] [address] [place] [address] 11/02/2024 10:20 AM CIRCUS ROUSTABOUT Office Visit [facility] Medical Group Family & Internal Medicine - [address] [phone] Sami Liriano DO [address] [place] [phone] documented as of this encounter Visit Diagnoses Not on filedocumented in this encounter Additional Health Concerns Assessment Noted Time PHQ-9 Depression Total Score: 0 10/11/19 22 10:50 AM CIRCUS ROUSTABOUT documented as of this encounter Care Teams Program Engagement Director Relationship Specialty Start Date End Date Sami Liriano DO [address] [place] [phone] PCP - General FAMILY PRACTICE 12/24/19 documented as of this encounter
--- OUTSIDE RECORDS SUMMARY | 2024-09-19 19:37 | XMS_ITS | Encounter Summary ---
Author Organization [facility] Address [address] [place] [address]. 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 file Not on franck e documented as of this encounter Plan of Treatment Upcoming Encounters Date Type Department Care Team (Late st Contact Info) Description 10/09/2024 9:30 AM LAMINATION ASSEMBLER Office Visit [facility] [phone] Carlos Farris MD [facility] [address] [place] [address] 11/02/2024 10:20 AM LAMINATION ASSEMBLER Office Visit [facility] Family & Internal Medicine - [address] [phone] Sami Liriano DO [address] [place] [id number] documented as of this encounter Visit Diagnoses Not on filedocumented in this encounter Additional Health Concerns Assessment Noted Time PHQ-9 Depression Total Score: 0 10/11/19 22 10:50 AM LAMINATION ASSEMBLER documented as of this encounter Care Teams Trimmer And Reinforcer Relationship Specialty Start Date End Date Sami Lriiano DO [address] [place] [id number] PCP - General FAMILY PRACTICE 12/24/19 documented as of this encounter
--- OUTSIDE RECORDS SUMMARY | 2024-09-19 19:37 | XMS_ITS | Encounter Summary ---
Author Organization [facility] Address [facility] Formerly [facility]. [place], [place] [address] [place] [address] Care Team Providers Care Bdc Manager Name Role Phone RomeofroylanSami lozoya Nicole AGUIAR Primary Care Provider + Reason for Visit * Auth/Cert (Routine) Specialty Diagnoses / Procedures Referred By Shereen t Referred To Contact Diagnoses Gastroesophageal reflux disease without esophagitis Screening for colon cancer Hx of adenomatous colonic polyps Family hx of colon cancer Screening colonoscopy Procedures COLONOSCOPY,DIAGNOSTIC COLONOSCOPY DIAGNOSTIC WITH/WITHOUT SPECIMEN BRUSH/WASH Joel Keenan MD [address] [place] [address] Phone: tel: fax: Referral ID Status Reason Start Date Expiration Date Visits Re quested Visits Authorized [id number] 1 1 Encounter Details Date Type Department Care Team (Late st Contact Info) Description 11/20/2023 12:07 PM AUTO STRIPER Anesthesia Event [facility] [address] [place] [address] Aga Holly CRNA [address] [facility], [address] [place] [address] Eliecer Mcginnis CRNA [address] [place] [address] Anesthesia Record Procedure Summary Procedure Name Responsible Anesthesiologist Anesthesia Start Time Anesthesia Stop Time Colonoscopy with Polypectomies Aga Holly CRNA 11/20/23 1207 11/20/23 1235 Events Date Time Event Comment 11/20/2023 1047 1047 AN GALLEY HAND Prepped 1207 An Start Patient ID and [...] on file Legal Sex Female 12:43 PM AUTO STRIPER Gender Identity Female 12/18/2021 6:31 AM CDT Sexual Orientation Straight 01/15/2022 6: 11 AM CDT 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 STRIPER * Anesthesia Preprocedure Evaluation - Aga Holly [...] Consent of blood products not discussed. . STRIPER STRIPER STRIPER STRIPER STRIPER documented in this encounter Plan of Treatment Upcoming Encounters Date Type Department Care Team (Late st Contact Info) Description 10/09/2024 9:30 AM AUTO STRIPER Office Visit [facility] [place] [phone] Carlos Farris MD Three [facility] [address] [place] [address] 11/02/2024 10:20 AM AUTO STRIPER Office Visit [facility] Family [facility] Internal Medicine - [place] [address] [place] [address] Sami Liriano, [address] [place] [address] documented as of this encounter Visit Diagnoses Not on filedocumented in this encounter Administered Medications Inactive Administered Medications - up to 3 most recent administrations Medication Order MAR Action Action Date Dose Rate Site albuterol sulfate HFA 108 (90 Base) MCG/ACT inhaler Inhalation, PRN, Starting on Sat11/20/23 at 1150, Until Sat11/20/23 at 1235, Anesthesia Intra-Op Given 11/20/2023 12:00 PM AUTO STRIPER 2 puffs Given 11/20/2023 11:50 AM AUTO STRIPER 2 puffs lactated ringers infusion at 10 mL/hr, Intravenous, Continuous, Starting on Sat11/20/23 at 1015, Until Sat11/20/23 at 1525, Infuse at TKO rate, Pre-Op Continued by Anesthesia 11/20/2023 12:07 PM AUTO STRIPER 10 mL/hr New Bag 11/20/2023 10:29 AM AUTO STRIPER 10 mL/hr lidocaine (PF) (XYLOCAINE) 1 % injection Intravenous, PRN, Starting on Sat11/20/23 at 1212, Until Sat11/20/23 at 1235, Anesthesia Intra-Op Given 11/20/2023 12:12 PM AUTO STRIPER 50 mg propofol (DIPRIVAN) IV bolus Intravenous, PRN, Starting on Sat11/20/23 at 1212, Until Sat11/20/23 at 1235, Anesthesia Intra-Op Given 11/20/2023 12:28 PM AUTO STRIPER 50 mg Given 11/20/2023 12:23 PM AUTO STRIPER 50 mg Given 11/20/2023 12:20 PM AUTO STRIPER 50 mg documented in this encounter Additional Health Concerns Assessment Noted Time PHQ-9 Depression Total Score: 0 10/11/19 22 10:50 AM AUTO STRIPER documented as of this encounter Care Teams Bdc Manager Relationship Specialty Start Date End Date Sami Liriano DO [address] [place] [address] PCP - General FAMILY PRACTICE 12/24/19 documented as of this encounter
--- OUTSIDE RECORDS SUMMARY | 2024-09-19 19:37 | XMS_ITS | Encounter Summary ---
Author Organization [facility] Address [facility]. [place], [place] [address] [place] [address] Care Team Providers Care Air Support Control Officer Name Role Phone Sami Liriano Primary [...] e alcohol) 2 cocktails on some Sundays [facility] 1234ENTERities Answer Date Recorded In the past 12 months has [facility] [employer], gas, oil, or water [employer] threatened to shut off services in your [...] any time in the past 12 m [facility], were you homeless or living in a halfway (including now)? 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 Not on file [...] st Contact Info) Description 10/09/2024 9:30 AM HYDROCRANE OPERATOR Office Visit [facility] [phone] Carlos Farris MD [address] [facility] [address] [place] [address] 11/02/2024 10:20 AM HYDROCRANE OPERATOR Office Visit [facility] Family & Internal Medicine - [address] [phone] Sami Liriano DO [address] [place] [address] documented as of this encounter Goals Goal [...] Total Score: 0 10/11/19 22 10:50 AM HYDROCRANE OPERATOR documented as of this encounter Care Teams Air Support Control Officer Relationship Specialty Start Date End Date Sami Liriano DO [address] [place] [address] [phone] PCP - General FAMILY PRACTICE 12/24/19 documented as of this encounter
--- OUTSIDE RECORDS SUMMARY | 2024-09-19 19:37 | XMS_ITS | Encounter Summary ---
Author Organization [facility] Address [address] [place] [address]. [place], [place] [address] [place] [address] Care Team Providers Care Research And Development Director Name Role Phone Sami Liriano DO Primary Care Provider + Reason for Visit * Reason Onset Date Comments Information 01/31/2024 Encounter Details Date Type Department Care Team (Late st Contact Info) Description 01/31/2024 Telephone [facility] Family & Internal Medicine [place] [phone] [place] [address] Sami Liriano DO [address] [place] [address] Information Social History Tobacco Use Types [...] on file Legal Sex Female 12:43 PM PATTERN CHAIN MAKER SUPERVISOR Gender Identity Female 12/18/2021 6:31 AM [...] st Contact Info) Description 10/09/2024 9:30 AM PATTERN CHAIN MAKER SUPERVISOR Office Visit [facility] [phone] Carlos Farris MD [address] [facility] [address] [place] [address] 11/02/2024 10:20 AM PATTERN CHAIN MAKER SUPERVISOR Office Visit [facility] Family & Internal Medicine - [address] [phone] Sami Liriano DO [address] [place] [address] documented as of this encounter Visit Diagnoses Not on filedocumented in this encounter Additional Health Concerns Assessment Noted Time PHQ-9 Depression Total Score: 0 10/11/19 22 10:50 AM PATTERN CHAIN MAKER SUPERVISOR documented as of this encounter Care Teams Research And Development Director Relationship Specialty Start Date End Date Sami Liriano DO [address] [place] [address] PCP - General FAMILY PRACTICE 12/24/19 documented as of this encounter
--- OUTSIDE RECORDS SUMMARY | 2024-09-19 19:37 | XMS_ITS | Encounter Summary ---
Author Organization [facility] Address [address] [place] [address]. [place], [place] [phone] [place] [address] Care Team Providers Care Prick Stitcher Name Role Phone Sami Liriano Primary Care Provider + Reason for Visit * Reason Comments Leg Swelling Shortness Of Breath Encounter Details Date Type Department Care Team (Late st Contact Info) Description 01/28/2024 12:12 PM CDT - 01/28/2024 5:25 PM CDT Emergency [facility] [address] [place] [address] Yousuf Urrutia MD [address] [place] [address] Leg Swelling; Shortness Of Breath Discharge [...] on file Legal Sex Female 12:43 PM ALLIED HEALTH TEACHER Gender Identity Female 12/18/2021 6:31 AM [...] Care Everywhere. * Dependent Edema Discharge Instructions (Lao) documented in this encounter Medications at Time of Discharge acetaminophen 325 MG tablet Take 2 tablets (650 mg total) by mouth every 6 (six) hours as needed for Pain. albuterol (PROVENTIL) (2.5 MG/3ML) 0.083% nebulizer solutionIndications :Mucopurulent chronic bronchitis ([facility] HHS/HCC),Chronic bronchitis, unspecified chronic bronchitis type ([facility]),Bronchitis ,Wheezing Take 3 mLs (2.5 mg total) [...] depressive disorder without prior episode ([facility]/HCC) TAKE 1 TABLET BY MOUTH EVERY [...] 24 NEBULIZER DEVICE, DME,Indications:Muc opurulent chronic bronchitis ([facility] HHS/HCC) Take 1 Device by nebulization [...] at night 10/21/23 Yes Sami Montano DO Ihplwjj-Ugikogjlfts-Qgxyppertx (BREZTRI AEROSPHERE) 160-9-4.8 MCG/ACT Aerosol Inhale 2 [...] of left knee 11/08/2019 Depression Diabetes mellitus ([facility]) GERD (gastroesophageal reflux disease) Hypertension Overactive bladder Positive colorectal cancer screening using Cologuard test 04/19/2020 Added automatically from request for surgery [id number] PAST SURGICAL HISTORY: Past Surgical History: Procedure Laterality Date ANKLE SURGERY left SECTION COLONOSCOPY N/A 04/27/2020 COLONOSCOPY WITH BIOPSY X 3 performed by Joel Keenan MD at [facility] OR COLONOSCOPY N/A 11/20/2023 Colonoscopy with Polypectomies performed by Joel Keenan MD at [facility] OR EGD EYE SURGERY FRACTURE [...] 01/28/24 [address] [facility] Test Date: 2024-01-28 Pat Name: HAIR SARGENT Department: 85 Room: EXAM 303 Gender: Female Eyewear Manufacturing Tech: : 1955 Requested By: YOUSUF URRUTIA Order Number: [id number] Reading MD: Elvin Wood Measurements Intervals [place] Rate: 76 P: 61 CT: 196 QRS: 61 QRSD: 93 T: 66 QT: 408 QTc: 461 Interpretive Statements SINUS RHYTHM WITH OCCASIONAL VENTRICULAR PREMATURE COMPLEXES NONSPECIFIC T-WAVE ABNORMALITY No previous ECG available for comparison EKG obtained at 1224. Rate 76. Rhythm normal sinus. [place] normal. Intervals CT 196. QRS 93. QTc 439.There are no clear ST segment changes concerning for PR. LABORATORY STUDIES: Results for orders placed or [...] XR CHEST PORTABLE Final Result by User, [id number] (01/27 1745) EXAMINATION: CHEST RADIOGRAPH SINGLE VIEW Exam date/time: [...] was without ST segment changes concerning for PR. CBC was largely within norm limits. CMP [...] st Contact Info) Description 10/09/2024 9:30 AM ALLIED HEALTH TEACHER Office Visit [facility] [phone] Carlos Farris MD [address] [facility] [address] [place] [address] 11/02/2024 10:20 AM ALLIED HEALTH TEACHER Office Visit [facility] Family & Internal Medicine - [address] [phone] Sami Liriano DO [address] [place] [address] documented as of this encounter Procedures Procedure [...] COLOR (U) YELLOW 01/28/2024 4:34 PM CDT [facility] TRANSPARENCY CLEAR 01/28/2024 4:34 PM CDT [facility] SPECIFIC GRAVITY (U) 1.015 1.000 - 1.030 01/28/2024 4:34 PM CDT [facility] U PH 5.5 5.0 - 9.0 01/28/2024 4:34 PM CDT [facility] LEUKOCYTES (U) NEGATIVE NEGATIVE 01/28/2024 4:34 PM CDT [facility] NITRITES NEGATIVE NEGATIVE 01/28/2024 4:34 PM CDT [facility] PROTEIN RANDOM (U) NEGATIVE NEGATIVE 01/28/2024 4:34 PM CDT [facility] GLUCOSE (U) NEGATIVE NEGATIVE 01/28/2024 4:34 PM CDT [facility] KETONES MG/DL (U) NEGATIVE NEGATIVE 01/28/2024 4:34 PM CDT [facility] BILIRUBIN (U) NEGATIVE NEGATIVE 01/28/2024 4:34 PM CDT [facility] BLOOD (U) NEGATIVE NEGATIVE 01/28/2024 4:34 PM CDT [facility] WBC/HPF NONE SEEN 0 - 5 /HPF 01/28/2024 4:34 PM CDT [facility] RBC/HPF NONE SEEN 0 - 5 /HPF 01/28/2024 4:34 PM CDT [facility] EPI/HPF FEW /HPF 01/28/2024 4:34 PM CDT [facility] CULTURE & SENSITIVITY INDICATED? CULTURE IS NOT INDICATED 01/28/2024 4:34 PM CDT [facility] URINE SPECIMEN OBTAINED BY CLEAN CATCH PROCEDURE / Unknown 01/28/2024 4:20 PM CDT Yousuf Urrutia MD URINE ORDERABLES Final Result [facility] [address] [place] [address], * XR CHEST PORTABLE (01/28/2024 1:02 PM [...] Interpreted By: [place], 01/28/2024 1:44 PM Yousuf Urrutia MD GENERAL IMAGING Final R esult * (ABNORMAL) PRO-BRAIN NATRIURETIC PEPTIDE (01/28/2024 12:32 PM CDT) PRO-B TYPE NATRIURETIC PEPTIDE 176(H) <125 PG/ML 01/28/2024 1:05 PM CDT [facility] Comment: CUT POINTS ESTABLISHED [...] Yousuf Urrutia MD LABORATORY Final R esult [facility] [address] [place] [address], * TROPONIN, QUANT (01/28/2024 12:32 PM CDT) TROPONIN I HIGH SENSITIVITY 9 <51 ng/L 01/28/2024 1:03 PM CDT [facility] Comment: HIGH DOSES OF BIOTIN, TROPONIN-SPECIFIC AUTOANTIBODIES, AND ANTIBODY THERAPY CONTAINING HAMA MAY INTERFERE WITH THIS TEST RESULT. CORRELATION TO CLINICAL HISTORY AND PRESENTATION RECOMMENDED. 01/28/2024 12:3 2 PM CDT us Yousuf Urrutia MD LABORATORY Final R esult [facility] [address] [place] [address], [place] [phone] * (ABNORMAL) COMPREHENSIVE METABOLIC PANEL (01/28/2024 12:32 PM CDT) Pathologist [facility] GLUCOSE 134(H) 70 - 99 MG/DL 01/28/2024 1:05 PM CDT [facility] BUN 15 7 - 18 MG/DL 01/28/2024 1:05 PM CDT [facility] CREATININE S/P/B 1.09(H) 0.55 - 1.02 MG/DL 01/28/2024 1:05 PM CDT [facility] SODIUM S/P/B 138 136 - 145 MMOL/L 01/28/2024 1:05 PM CDT [facility] POTASSIUM S/P/B 3.7 3.5 - 5.1 MMOL/L 01/28/2024 1:05 PM T [facility] CHLORIDE S/P/B 102 100 - 108 MMOL/L 01/28/2024 1:05 PM T [facility] CO2 28.1 21 - 32 MMOL/L 01/28/2024 1:05 PM T [facility] CALCIUM S/P/B 9.2 8.5 - 10.1 MG/DL 01/28/2024 1:05 PM CDT [facility] BILIRUBIN TOTAL S/P/B 1.1 0.2 - 1.2 MG/DL 01/28/2024 1:05 PM CDT [facility] TOTAL PROTEIN S/P/B 7.2 6.4 - 8.2 G/DL 01/28/2024 1:05 PM CDT [facility] ALBUMIN S/P/B 3.7 3.4 - 5.0 G/DL 01/28/2024 1:05 PM T [facility] AST 23 15 - 37 U/L 01/28/2024 1:05 PM T [facility] ALT 30 14 - 55 U/L 01/28/2024 1:05 PM T [facility] ALKALINE PHOSPHATASE S/P/B 87 50 - 136 U/L 01/28/2024 1:05 PM T [facility] ANION GAP 7.9 5 - 15 MMOL/L 01/28/2024 1:05 PM T [facility] BUN CREATININE RATIO 13.8 6 - 26 01/28/2024 1:05 PM T [facility] A/G RATIO 1.1 1.0 - 2.0 RATIO 01/28/2024 1:[address] [facility] GFR ESTIMATE 55(L) >90 ML/MIN/1.7 3 M2 01/28/2024 1:05 PM T [facility] Comment: NOTE: eGFR is [...] Yousuf Urrutia MD LABORATORY Final R esult [facility] [address] [place] [address], [place] [phone] * (ABNORMAL) CBC W/DIFF AUTOMATED (01/28/2024 12:32 PM CDT) WBC 11.14(H) 4.4 - 11.0 x10'3/uL 01/28/2024 12:50 PM CDT [facility] RBC 4.24(L) 4.50 - 5.10 x10'6/uL 01/28/2024 12:50 PM CDT [facility] HGB 11.7(L) 12.3 - 15.3 G/DL 01/28/2024 12:50 PM CDT [facility] HCT 36.1 35.9 - 44.6 % 01/28/2024 12:50 PM CDT [facility] MCV 85.1 80.0 - 96.0 FL 01/28/2024 12:50 PM CDT [facility] MCH 27.6 25.3 - 30.9 PG 01/28/2024 12:50 PM CDT [facility] MCHC 32.4 31.0 - 34.1 G/DL 01/28/2024 12:50 PM CDT [facility] RDW 14.4 12.4 - 15.1 % 01/28/2024 12:50 PM T [facility] PLT 231 151 - 353 x10'3/uL 01/28/2024 12:50 PM T [facility] MPV 9.9 9.6 - 12.0 FL 01/28/2024 12:50 PM CDT [facility] RBC MORPHOLOGY NORMAL 01/28/2024 12:50 PM CDT [facility] PLT MORPH. NORMAL 01/28/2024 12:50 PM T [facility] WBC MORPHOLOGY NORMAL 01/28/2024 12:50 PM CDT [facility] LYMPHOCYTES % 27.7 15.8 - 45.0 % 01/28/2024 12:50 PM CDT [facility] NEUTROPHILS % 63.6 42.1 - 71.9 % 01/28/2024 12:50 PM CDT [facility] MONOCYTES % 6.2 5.7 - 12.5 % 01/28/2024 12:50 PM CDT [facility] EOSINOPHILS 1.7 0.0 - 5.6 % 01/28/2024 12:50 PM CDT [facility] BASOPHILS 0.4 0.0 - 1.3 % 01/28/2024 12:50 PM CDT [facility] ABS. NEUTROPHILS 7.08(H) 1.40 - 6.00 x10'3/uL 01/28/2024 12:50 PM CDT [facility] IMMATURE GRANS % 0.4 0.0 - 0.5 % 01/28/2024 12:50 PM CDT [facility] ABS. LYMPHOCYTES 3.09 0.80 - 4.70 x10'3/uL 01/28/2024 12:50 PM CDT [facility] 01/28/2024 12:3 2 PM CDT Yousuf Urrutia MD LABORATORY Final R esult [facility] [address] [place] [address], * ECG 12 lead (01/28/2024 12:24 PM CDT) 01/28/2024 12:2 4 PM CDT Narrative [facility] ([facility] RAD - 01/30/2024 9:51 PM CDT ?[facility] ? Test Date: ?2024-01-28 Pat Name: ? HAIR SHANDS ?Department: ?? 85 ? Room: ? EXAM 303 Gender: ? Female ? Eyewear Manufacturing Tech: ?? TH : ?1955 ? Requested By: YOUSUF FRANCISCA Order Number: [id number] ? Reading MD: ?? Elvin Wood ? Measurements Intervals ?[place] ? Rate: ? 76 ? P: ?61 CT: ? 196 ?QRS: ?61 QRSD: ? 93 ? T: ?66 QT: ? 408 ? QTc: ?461 ? Interpretive Statements SINUS RHYTHM WITH OCCASIONAL VENTRICULAR PREMATURE COMPLEXES NONSPECIFIC T-WAVE ABNORMALITY No previous ECG available for comparison Procedure Note Elvin Wood MD - 01/30/[facility] Date: 2024-01-28 Pat Name: HAIR SARGENT Department: 85 Room: EXAM 303 Gender: Female Eyewear Manufacturing Tech: : 1955 Requested By: YOUSUF URRUTIA Order Number: [id number] Reading MD: Elvin Wood Measurements Intervals [place] Rate: 76 P: 61 CT: 196 QRS: 61 QRSD: 93 T: 66 QT: 408 QTc: 461 Interpretive Statements SINUS RHYTHM WITH OCCASIONAL VENTRICULAR PREMATURE COMPLEXES NONSPECIFIC T-WAVE ABNORMALITY No previous ECG available for comparison us Yousuf Urrutia MD ECG ORDERABLES Final R esult [facility] RAD documented in this encounter Visit [...] Total Score: 0 10/11/19 22 10:50 AM ALLIED HEALTH TEACHER documented as of this encounter Care Teams Prick Stitcher Relationship Specialty Start Date End Date Sami Liriano DO [address] [place] [address] PCP - General FAMILY PRACTICE 12/24/19 documented as of this encounter
--- OUTSIDE RECORDS SUMMARY | 2024-09-19 19:37 | XMS_ITS | Encounter Summary ---
Author Organization [facility] Address [address] [place] [address]. 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 Not on file Not on franck e documented as of this encounter Plan of Treatment Upcoming Encounters Date Type Department Care Team (Late st Contact Info) Description 10/09/2024 9:30 AM ASSOCIATE STORE DIRECTOR Office Visit [facility] [address] [place] [address] Carlos Farris MD Three [facility] [address] [place] [address] 11/02/2024 10:20 AM ASSOCIATE STORE DIRECTOR Office Visit [facility] Family & Internal Medicine - [address] [phone] Sami Liriano DO [address] [place] [address] documented as of this encounter Procedures Procedure [...] Total Score: 0 10/11/19 22 10:50 AM ASSOCIATE STORE DIRECTOR documented as of this encounter Care Teams Component Technician Relationship Specialty Start Date End Date Sami Liriano DO [address] [place] [address] [phone] PCP - General FAMILY PRACTICE 12/24/19 documented as of this encounter
--- OUTSIDE RECORDS SUMMARY | 2024-09-19 19:37 | XMS_ITS | Encounter Summary ---
Author Organization [facility] Address [address] [place] [address]. 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 Not on file Not on franck e documented as of this encounter Plan of Treatment Upcoming Encounters Date Type Department Care Team (Late st Contact Info) Description 10/09/2024 9:30 AM LEGAL SUPPORT ANALYST Office Visit [facility] [phone] Carlos Farris MD Three [facility] [address] [place] [address] 11/02/2024 10:20 AM LEGAL SUPPORT ANALYST Office Visit [facility] Family & Internal Medicine - [address] [phone] Sami Liriano DO [address] [place] [address] documented as of this encounter Visit Diagnoses Not on filedocumented in this encounter Additional Health Concerns Assessment Noted Time PHQ-9 Depression Total Score: 0 10/11/19 22 10:50 AM LEGAL SUPPORT ANALYST documented as of this encounter Care Teams Ibm Bpm Developer Relationship Specialty Start Date End Date Sami Liriano DO [address] [place] [address] PCP - General FAMILY PRACTICE 12/24/19 documented as of this encounter
--- OUTSIDE RECORDS SUMMARY | 2024-09-19 19:37 | XMS_ITS | Encounter Summary ---
Author Organization [facility] Address [address] [place] [address]. [place], [place] [address] [place] [address] Care Team Providers Care Boat Garnisher Name Role Phone Sami Liriano Primary Care Provider + Reason for Visit * Reason Onset Date Comments Medication 12/12/2023 Encounter Details Date Type Department Care Team (Late st Contact Info) Description 12/12/2023 Telephone [facility] Family & Internal Medicine [facility] [address] [place] [address] Barb Sexton APNP [facility] [place] [address] Medication Social History Tobacco Use [...] on file Legal Sex Female 12:43 PM ADVERTISING SUPERVISOR Gender Identity Female 12/18/2021 6:31 AM CDT Sexual Orientation Straight 01/15/2022 6: 11 AM CDT 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 Not on [...] st Contact Info) Description 10/09/2024 9:30 AM ADVERTISING SUPERVISOR Office Visit [facility] [phone] Carlos Farris MD Three [facility] Suite [facility] [place] [address] 11/02/2024 10:20 AM ADVERTISING SUPERVISOR Office Visit [facility] Family & Internal Medicine - [address] [phone] Sami Liriano DO [address] [place] [address] documented as of this encounter Visit Diagnoses Not on filedocumented in this encounter Additional Health Concerns Assessment Noted Time PHQ-9 Depression Total Score: 0 10/11/19 10:50 AM ADVERTISING SUPERVISOR documented as of this encounter Care Teams Boat Garnisher Relationship Specialty Start Date End Date Sami Liriano DO [address] [place], [place] [phone] PCP - General FAMILY PRACTICE 12/24/19 documented as of this encounter
--- OUTSIDE RECORDS SUMMARY | 2024-09-19 19:37 | XMS_ITS | Encounter Summary ---
Author Organization [facility] Address [address] [place] [address]. [place], [place] [address] [place] [address] Care Team Providers Care Barrel Rifler Hook Name Role Phone Sami Liriano DO Primary Care Provider + Reason for Visit * Reason Onset Date Comments Edema 01/27/2024 Encounter Details Date Type Department Care Team (Late st Contact Info) Description 01/27/2024 Telephone [facility] Family & Internal Medicine [place] [address] [place] [address] Sami Liriano DO [address] [place] [address] Edema Social History Tobacco Use Types [...] on file Legal Sex Female 12:43 PM CONDUCTOR/ENGINEER Gender Identity Female 12/18/2021 6:31 AM CDT [...] st Contact Info) Description 10/09/2024 9:30 AM CONDUCTOR/ENGINEER Office Visit [facility]-[address] [phone] Carlos Farris MD Three [facility] [address] [place] [address] 11/02/2024 10:20 AM CONDUCTOR/ENGINEER Office Visit [facility] Family & Internal Medicine - [place] [address] [place] [address] [place] [address] [place] [address] documented as of this encounter Visit Diagnoses Not on filedocumented in this encounter Additional Health Concerns Assessment Noted Time PHQ-9 Depression Total Score: 0 10/11/19 10:50 AM CONDUCTOR/ENGINEER documented as of this encounter Care Teams Barrel Rifler Hook Relationship Specialty Start Date End Date Sami Liriano DO [address] [place] [address] PCP - General FAMILY PRACTICE 12/24/19 documented as of this encounter
--- OUTSIDE RECORDS SUMMARY | 2024-09-19 19:37 | XMS_ITS | Encounter Summary ---
Author Organization [facility] Address [facility]6 [facility] [place], [place] [address] [place] [address] Care Team Providers Care Outgoing Inspector Name Role Phone Sami Liriano Primary Care Provider + Reason for Visit * Reason Onset Date Comments Lab Order 02/11/2024 Bmp Encounter Details Date Type Department Care Team (Late st Contact Info) Description 02/11/2024 Telephone [facility] [place], [place] [address] [place], [place] [phone] Carlos Farris MD [facility] [address] [place] [address] Lab Order (Bmp ) Social History Tobacco Use Types Packs/Day Years Used Date Smoking Tobacco: Former Cigarettes 0.5 12 0 09/30/1964 - 09/30/1976 Passive Smoke Exposure: Never Smokeless Tobacco: Never Alcohol Use Standard Drinks/Week Comments Not Currently 0 (1 standard drink = 0.6 oz pur e alcohol) 2 cocktails on some Sundays [facility] Utilities Answer Date Recorded In the [...] any time in the past 12 [facility], were you homeless or living in a senior care (including now)? 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 [address] [place] [address] 11/02/2024 10:20 AM CLOSING SPECIALIST Office Visit [facility] Family & Internal Medicine - [place] [address] [place] [address] Sami Liriano DO [address] [place] [address] documented as of this encounter Goals Goal [...] Total Score: 0 10/11/19 22 10:50 AM CLOSING SPECIALIST documented as of this encounter Care Teams Outgoing Inspector Relationship Specialty Start Date End Date Sami Liriano DO [address] [place] [address] PCP - General FAMILY PRACTICE 12/24/19 documented as of this encounter
--- OUTSIDE RECORDS SUMMARY | 2024-09-19 19:37 | XMS_ITS | Encounter Summary ---
Author Organization [facility] Address [address] [place] [address]. 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 Not on file Not on franck e documented as of this encounter Plan of Treatment Upcoming Encounters Date Type Department Care Team (Late st Contact Info) Description 10/09/2024 9:30 AM SENIOR ACCOUNTANT Office Visit [facility]-[address] [phone] Carlos Farris MD [facility] [address] [place] [address] 11/02/2024 10:20 AM SENIOR ACCOUNTANT Office Visit [facility] Medical Group Family & Internal Medicine - [address] [phone] [place] [address] [place] [address] documented as of this encounter Visit Diagnoses Not on filedocumented in this encounter Additional Health Concerns Assessment Noted Time PHQ-9 Depression Total Score: 0 10/11/19 22 10:50 AM SENIOR ACCOUNTANT documented as of this encounter Care Teams Bankruptcy Manager Relationship Specialty Start Date End Date Sami Liriano DO [address] [place] [address] PCP - General FAMILY PRACTICE 12/24/19 documented as of this encounter
--- OUTSIDE RECORDS SUMMARY | 2024-09-19 19:37 | XMS_ITS | Encounter Summary ---
Author Organization [facility] Address [address] [place] [address]. [place] [phone] [place], [place] [address] Care Team Providers Care Drum Handler Name Role Phone Sami Liriano DO Primary Care Provider + Reason for Visit * Reason Comments Edema Encounter Details Date Type Department Care Team (Late st Contact Info) Description 01/28/2024 10:40 AM CDT Office Visit [facility] Family & Internal Medicine [address] [phone] Sami Liriano DO [address] [place] [address] Edema Social History Tobacco Use Types [...] on file Legal Sex Female 12:43 PM LEVEL VIAL INSIDE GRINDER Gender Identity Female 12/18/2021 6:31 AM [...] had been to ER on 01/03/24 at [place] and was found tohave hypomagnesemia, but she did not follow-up specifically for this issue. Review of Systems Constitutional: Negative for fever. Respiratory: Positive for shortness of breath. See HPI Cardiovascular: Positive for leg swelling. Negative for chest pain. Musculoskeletal: Positive for myalgias. Patient Active Problem List Diagnosis Alopecia Hypertension associated with type 2 diabetes mellitus ([facility]/HCC) Arthritis of left knee Overactive bladder Depression Pharyngoesophageal dysphagia ALLYSON positive Stage 3a chronic kidney disease ([facility]) Severe obstructive sleep apnea Hyperlipidemia associated with type 2 diabetes mellitus ([facility]) BMI 45.0-49.9, adult ([facility]) Generalized osteoarthritis of multiple sites Inflammatory arthritis Urinary tract infection Morbid (severe) obesity due to excess calories ([facility]) Hx of adenomatous colonic polyps Family hx of colon cancer Body mass index (BMI) 45.0-49.9, adult ([facility]) Current moderate episode of major depressive disorder without prior episode ([facility]) Past Medical History: Diagnosis Date Anxiety disorder, unspecified Arthritis Arthritis of left knee 11/08/2019 Depression Diabetes mellitus ([facility]) GERD (gastroesophageal reflux disease) Hypertension Overactive bladder Positive colorectal cancer screening using Cologuard test 04/19/2020 Added automatically from request for surgery [id number] Past Surgical History: Procedure Laterality Date ANKLE SURGERY left SECTION COLONOSCOPY N/A 04/27/2020 COLONOSCOPY WITH BIOPSY X 3 performed by Joel Keenan MD at [facility] OR COLONOSCOPY N/A 11/20/2023 Colonoscopy with Polypectomies performed by Joel Keenan MD at [facility] OR EGD EYE SURGERY [...] on file Occupational History 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 Report called over by Deb Varela RN. Will follow-up depending upon results of this evaluation and likely admission. Patient verbalized understanding. Sami Liriano DO documented in this encounter Plan of Treatment Upcoming Encounters Date Type Department Care Team (Late st Contact Info) Description 10/09/2024 9:30 AM LEVEL VIAL INSIDE GRINDER Office Visit [facility] [address] Carlos Farris MD [facility] [address] [place] [address] 11/02/2024 10:20 AM LEVEL VIAL INSIDE GRINDER Office Visit [facility] Medical Group Family & Internal Medicine - [address] [phone] Sami Liriano DO [address] [place] [address] documented as of this encounter Visit Diagnoses Diagnosis Leg swelling- Primary Swelling of limb Shortness of breath documented in this encounter Additional Health Concerns Assessment Noted Time PHQ-9 Depression Total Score: 0 10/11/19 22 10:50 AM LEVEL VIAL INSIDE GRINDER documented as of this encounter Care Teams Drum Handler Relationship Specialty Start Date End Date Sami Liriano DO [address] [place] [address] PCP - General FAMILY PRACTICE 12/24/19 documented as of this encounter
--- OUTSIDE RECORDS SUMMARY | 2024-09-19 19:37 | XMS_ITS | Encounter Summary ---
Author Organization [facility] Address [facility]6 [facility]. [place], [place] [address] [place] [address] Care Team Providers Care Technical Training Instructor Name Role Phone Sami Liriano Primary Care Provider + Reason for Visit * Reason Onset Date Comments Consult 02/04/2024 Encounter Details Date Type Department Care Team (Late st Contact Info) Description 02/04/2024 Telephone [place] [phone] Brooke Acosta, RMA Consult Social History Tobacco [...] file Legal Sex Female 12:43 PM KENO ATTENDANT Gender Identity Female 12/18/2021 6:31 AM [...] st Contact Info) Description 10/09/2024 9:30 AM KENO ATTENDANT Office Visit [facility]-[address] [phone] Carlos Farris MD [facility] [address] [place] [address] 11/02/2024 10:20 AM KENO ATTENDANT Office Visit [facility] Medical Group Family & Internal Medicine - [address] [phone] Sami Liriano DO [address] [place] [address] documented as of this encounter Visit Diagnoses Not on filedocumented in this encounter Additional Health Concerns Assessment Noted Time PHQ-9 Depression Total Score: 0 10/11/19 22 10:50 AM KENO ATTENDANT documented as of this encounter Care Teams Technical Training Instructor Relationship Specialty Start Date End Date Sami Liriano DO [address] [place] [address] PCP - General FAMILY PRACTICE 12/24/19 documented as of this encounter
--- OUTSIDE RECORDS SUMMARY | 2024-09-19 19:37 | XMS_ITS | Encounter Summary ---
Author Organization [facility] Address [address] [place] [address]. 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 Not on file Not on franck e documented as of this encounter Plan of Treatment Upcoming Encounters Date Type Department Care Team (Late st Contact Info) Description 10/09/2024 9:30 AM WORLD TRAVEL COUNSELOR Office Visit [facility] [address] Carlos Farris MD Three [facility] [address] [place] [address] 11/02/2024 10:20 AM WORLD TRAVEL COUNSELOR Office Visit [facility] Medical Group Family & Internal Medicine - [address] [address] Sami Liriano DO [address] [place] [address] documented as of this encounter Visit Diagnoses Not on filedocumented in this encounter Additional Health Concerns Assessment Noted Time PHQ-9 Depression Total Score: 0 10/11/19 22 10:50 AM WORLD TRAVEL COUNSELOR documented as of this encounter Care Teams Cytotechnologist/Cytology Supervisor Relationship Specialty Start Date End Date Sami iLriano DO [address] [place] [address] PCP - General FAMILY PRACTICE 12/24/19 documented as of this encounter
--- OUTSIDE RECORDS SUMMARY | 2024-09-19 19:37 | XMS_ITS | Encounter Summary ---
Author Organization [facility] Address [address] [place] [address]. [place], [place] [address] [place] [address] Care Team Providers Care Hospital Technician Name Role Phone Sami Liriano DO Primary Care Provider + Reason for Visit * Reason Onset Date Comments Lab Results 12/06/2023 Encounter Details Date Type Department Care Team (Late st Contact Info) Description 12/06/2023 Telephone [facility] Medical Group Family & Internal Medicine [place] [address] [place] [address] Sami Liriano DO [address] [place] [address] Lab Results Social History Tobacco Use [...] on file Legal Sex Female 12:43 PM UI UX WEB DEVELOPER Gender Identity Female 12/18/2021 6:31 AM CDT Sexual Orientation Straight 01/15/2022 6: 11 AM CDT 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 Will repeat in 1 month. UX WEB DEVELOPER * Melanie Lance MA - 12/06/2023 10:29 AM CST ----- Message from Sami Liriano DO sent at 12/05/2023 9:32 PM UI UX WEB DEVELOPER ----- WBC is again mildly elevated, similar [...] Repeat other la bs in 1 year. UX WEB DEVELOPER documented in this encounter Plan of Treatment Upcoming Encounters Date Type Department Care Team (Late st Contact Info) Description 10/09/2024 9:30 AM UI UX WEB DEVELOPER Office Visit [facility]-[address] [phone] Carlos Farris MD Three [facility] [address] [place] [address] 11/02/2024 10:20 AM UI UX WEB DEVELOPER Office Visit [facility] Medical Group Family & Internal Medicine - [address] [phone] Sami Liriano DO [address] [place] [address] Scheduled Orders Name Type Priority Associated Diagnoses Orde r Schedule CBC W/DIFF AUTOMATED Lab Routine Elevated WBC count Expected: 01/06/2024, Expires: 12/05/2024 documented as of this encounter Visit Diagnoses Diagnosis Elevated WBC count- Primary Leukocytosis, unspecified Mucopurulent chronic bronchitis ([facility]/HCC) Mucopurulent chronic bronchitis documented in this encounter Additional Health Concerns Assessment Noted Time PHQ-9 Depression Total Score: 0 10/11/19 22 10:50 AM UI UX WEB DEVELOPER documented as of this encounter Care Teams Hospital Technician Relationship Specialty Start Date End Date Sami Liriano DO [address] [place] [address] PCP - General FAMILY PRACTICE 12/24/19 documented as of this encounter
--- OUTSIDE RECORDS SUMMARY | 2024-09-19 19:37 | XMS_ITS | Encounter Summary ---
Author Organization [facility] Address [facility]6 [facility]. [place], [place] [address] [place] [address] Care Team Providers Care Digital Marketing Lead Name Role Phone Sami Liriano DO Primary Care Provider + Reason for Visit * Reason Onset Date Comments Record Request 02/03/2024 Encounter Details Date Type Department Care Team (Late st Contact Info) Description 02/03/2024 Telephone [facility] Family & Internal Medicine [facility] [address] [place] [address] Sami Liriano DO [address] [place] [address] Record Request Social History Tobacco Use Types Packs/Day Years Used Date Smoking Tobacco: Former Cigarettes 0.5 12 0 09/30/1964 - 09/30/1976 Passive Smoke Exposure: Never Smokeless Tobacco: Never Alcohol Use Standard Drinks/Week Comments Not Currently 0 (1 standard drink = 0.6 oz pur e alcohol) 2 cocktails on some Sundays [facility] Utilities Answer Date Recorded In [...] any time in the past 12 m [facility], were you homeless or living in a fci (including now)? 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 Not on file [...] PM CDT I have faxed [facility] in [facility] for office note from last week documented in this encounter Plan of Treatment Upcoming Encounters Date Type Department Care Team (Late st Contact Info) Description 10/09/2024 9:30 AM CLINICAL INFORMATICS SPECIALIST Office Visit [facility]-[address] [phone] Carlos Farris MD Three [facility] [address] [facility] [place] [address] 11/02/2024 10:20 AM CLINICAL INFORMATICS SPECIALIST Office Visit [facility] Family & Internal Medicine - [address] [phone] [place] [address] [place] [address] documented as of this encounter Goals Goal [...] Total Score: 0 10/11/19 22 10:50 AM CLINICAL INFORMATICS SPECIALIST documented as of this encounter Care Teams Digital Marketing Lead Relationship Specialty Start Date End Date Sami Liriano DO [address] [place] [address] [phone] PCP - General FAMILY PRACTICE 12/24/19 documented as of this encounter
--- OUTSIDE RECORDS SUMMARY | 2024-09-19 19:37 | XMS_ITS | Encounter Summary ---
Author Organization [facility] Address [address] [place] [address]. [place], [place] [id number] [place] [address] Care Team Providers Care Lock Setter Name Role Phone Sami Liriano DO Primary Care Provider + Reason for Referral * Consultation (Urgent) - Authorized Specialty Diagnoses / Procedures Referred By Contact Referred To Contact CARDIOLOGY / Cardiology Diagnoses Leg swelling Shortness of breath Stage 3a chronic kidney disease ([facility]) Hypertension associated with type 2 diabetes mellitus ([facility]) Procedures OFFICE/OUTPATIENT NEW LOW MDM 30-44 MINUTES OFFICE/OUTPT VISIT,NEW,LEVL IV OFFICE/OUTPT VISIT,NEW,LEVL V OFFICE/OUTPT VISIT,EST,LEVL III OFFICE/OUTPT VISIT,EST,LEVL IV OFFICE/OUTPT VISIT,EST,LEVL V Sami Liriano DO [address] [place] [address] Phone: tel: fax: [facility] [address] Phone: tel: fax: Referral ID Status Reason Start Date Expiration Date Visits Requested Visits Authorized [id number] Authorized Specialty Services 02/03/2024 03/04/2025 99 99 [...] Description 02/03/2024 10:40 AM CDT Office Visit [facility] Family & Internal Medicine [address] [address] Sami Liriano, [address] [place] [address] Urinary Concern (The patient saw Urology. The [...] on file Legal Sex Female 12:43 PM EDGE WORKER Gender Identity Female 12/18/2021 6:31 AM [...] Hypertension associated with type 2 diabetes mellitus ([facility]) Arthritis of left knee Overactive bladder Depression Pharyngoesophageal dysphagia ALLYSON positive Stage 3a chronic kidney disease ([facility]/HCC) Severe obstructive sleep apnea Hyperlipidemia associated with type 2 diabetes mellitus ([facility] H[facility]/HCC) BMI 45.0-49.9, adult ([facility] H[facility]/HCC) Generalized osteoarthritis of multiple sites Inflammatory arthritis Urinary tract infection Morbid (severe) obesity due to excess calories ([facility]) Hx of adenomatous colonic polyps Family hx of colon cancer Body mass index (BMI) 45.0-49.9, adult ([facility]) Current moderate episode of major depressive disorder without prior episode ([facility]) Past Medical History: Diagnosis Date Anxiety disorder, unspecified Arthritis Arthritis of left knee 11/08/2019 Depression Diabetes mellitus ([facility]) GERD (gastroesophageal reflux disease) Hypertension Overactive bladder Positive colorectal cancer screening using Cologuard test 04/19/2020 Added automatically from request for surgery [id number] Past Surgical History: Procedure Laterality Date ANKLE SURGERY left SECTION COLONOSCOPY N/A 04/27/2020 COLONOSCOPY WITH BIOPSY X 3 performed by Joel Keenan MD at [facility] OR COLONOSCOPY N/A 11/20/2023 Colonoscopy with Polypectomies performed by Joel Keenan MD at [facility] OR EGD EYE SURGERY FRACTURE SURGERY HERNIA [...] level: Not on file Occupational History 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 Tobacco Use Smoking status: Former Current [...] every day at night 90 tablet 0 Fjpyewh-Rmolgejinwu-Iskncrzuds (BREZTRI AEROSPHERE) 160-9-4.8 MCG/ACT Aerosol Inhale 2 [...] tablet by mouth every day at night Ssunltc-Zhaklcdxhmj-Morzeyxxbg (BREZTRI AEROSPHERE) 160-9-4.8 MCG/ACT Aerosol Inhale 2 [...] PM - Ambulatory referral to Cardiology, Adult ([facility]) - USE ECHOCARDIOGRAM; Future - COMPREHENSIVE METABOLIC PANEL; Future - PRO-BRAIN NATRIURETIC PEPTIDE; Future - CBC W/DIFF AUTOMATED; Future - MAGNESIUM; Future Shortness of breath - Ambulatory referral to Cardiology, Adult ([facility]) - USE ECHOCARDIOGRAM; Future - COMPREHENSIVE METABOLIC PANEL; Future - PRO-BRAIN NATRIURETIC PEPTIDE; Future - CBC W/DIFF AUTOMATED; Future - MAGNESIUM; Future Stage 3a chronic kidney disease ([facility]) - Ambulatory referral to Cardiology, Adult ([facility]) - COMPREHENSIVE METABOLIC PANEL; Future - PRO-BRAIN NATRIURETIC PEPTIDE; Future - CBC W/DIFF AUTOMATED; Future - MAGNESIUM; Future Hypertension associated with type 2 diabetes mellitus ([facility]) - Ambulatory referral to Cardiology, Adult ([facility]) - COMPREHENSIVE METABOLIC PANEL; Future - PRO-BRAIN [...] st Contact Info) Description 10/09/2024 9:30 AM EDGE WORKER Office Visit [facility]-[address] [phone] Carlos Farris MD [facility] [address] [facility] [place] [address] 11/02/2024 10:20 AM EDGE WORKER Office Visit [facility] Family & Internal Medicine - [address] [phone] Sami Liriano DO [address] [place] [address] Scheduled Orders Name Type Priority Associated Diagnoses Orde r Schedule COMPREHENSIVE METABOLIC PANEL Lab Routine Leg swelling Shortness of breath Stage 3a chronic kidney disease (CMS/HCC HHS/HCC) Hypertension associated with type 2 diabetes mellitus ([facility]HCC) Expected: 02/03/2024, Expires: 02/02/2025 PRO-BRAIN NATRIURETIC [...] r Schedule Ambulatory referral to Cardiology, Adult ([facility]) Referral Routine Leg swelling Shortness of breath Stage 3a chronic kidney disease ([facility]/HCC) Hypertension associated with type 2 diabetes mellitus ([facility]HCC) Ordered: 02/03/2024 documented as of this encounter Visit Diagnoses Diagnosis Leg swelling- Primary Swelling of limb Shortness of breath Stage 3a chronic kidney disease ([facility]/HCC) Hypertension associated with type 2 diabetes mellitus ([facility]/HCC) documented in this encounter Additional Health Concerns Assessment Noted Time PHQ-9 Depression Total Score: 0 10/11/19 22 10:50 AM EDGE WORKER documented as of this encounter Care Teams Lock Setter Relationship Specialty Start Date End Date Sami Liriano DO [address] [place] [address] PCP - General FAMILY PRACTICE 12/24/19 documented as of this encounter
--- OUTSIDE RECORDS SUMMARY | 2024-09-19 19:37 | XMS_ITS | Encounter Summary ---
Author Organization [facility] Address [address] [place] [address]. [place], [place] [address] [place] [address] Care Team Providers Care Product Inspection Supervisor Name Role Phone Sami Liriano DO Primary Care Provider + Reason for Visit * Reason Onset Date Comments Health Maintenance Follow Up 02/06/2024 Encounter Details Date Type Department Care Team (Late st Contact Info) Description 02/06/2024 Telephone [facility] Family & Internal Medicine [facility] [address] [place] [address] Sami Liriano DO [facility] [place], [place] [id number] Health Maintenance Follow Up Social History Tobacco [...] file Legal Sex Female 12:43 PM ASSOCIATE PROFESSOR OF RADIOLOGY Gender Identity Female 12/18/2021 6:31 AM CDT Sexual Orientation Straight 01/15/2022 6: 11 AM CDT 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 She has not heard back from cardiology as of yet. This nurse called over to cardiology office and left message with Brooke Acosta at [phone] ext- [phone]. Will call patient back once this nurse speak to the office. Opportunity given forall questions to be answered, no further needs voiced at this time. LL-02/06/24 documented in this encounter Plan of Treatment Upcoming Encounters Date Type Department Care Team (Late st Contact Info) Description 10/09/2024 9:30 AM ASSOCIATE PROFESSOR OF RADIOLOGY Office Visit [facility] [phone] Carlos Farris MD [address] [facility] [address] [place] [address] 11/02/2024 10:20 AM ASSOCIATE PROFESSOR OF RADIOLOGY Office Visit [facility] Family & Internal Medicine - [address] [address] Sami Liriano DO [address] [place] [address] documented as of this encounter Visit Diagnoses Not on filedocumented in this encounter Additional Health Concerns Assessment Noted Time PHQ-9 Depression Total Score: 0 10/11/19 22 10:50 AM ASSOCIATE PROFESSOR OF RADIOLOGY documented as of this encounter Care Teams Product Inspection Supervisor Relationship Specialty Start Date End Date Sami Liriano DO [address] [place] [address] PCP - General FAMILY PRACTICE 12/24/19 documented as of this encounter
--- OUTSIDE RECORDS SUMMARY | 2024-09-19 19:38 | XMS_ITS | Encounter Summary ---
Author Organization [facility] Address [facility]. [place], [place] [address] [place] [address] Care Team Providers Care Rental Car Ferry Driver Name Role Phone Sami Liriano DO Primary Care Provider + Reason for Visit * Reason Onset Date Comments Refill Request 11/04/2023 Request Note (Return To Work) 11/04/2023 Encounter Details Date Type Department Care Team (Late st Contact Info) Description 11/04/2023 Telephone [facility] Family & Internal Medicine [facility] [address] [place] [address] Sami Liriano DO [facility] [place] [address] Refill Request; Request Note (Return [...] file Legal Sex Female 12:43 PM CLERICAL ADVISER Gender Identity Female 12/18/2021 6:31 AM CDT Sexual Orientation Straight 01/15/2022 6: 11 AM CDT 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 Rounder also not to mix this with any other sedating medications. ICAL ADVISER * James Siddiqui MA - 11/12/2023 1:25 [...] bit left, probably around 3 nights left. [employer] do not work for her. Her rib pain has subsided, she is still getting muscle spasms in her back. MyChart response or detailed vm message will suffice if responding. ICAL ADVISER ICAL ADVISER * Melanie Lance MA - 11/12/2023 12:27 PM CST Lm 11/12/23 tn ICAL ADVISER * James Siddiqui MA - 11/07/2023 12:52 PM CSTAddended by: JAMES SIDDIQUI on: 11/07/2023 12:52 PM Modules accepted: Orders ICAL ADVISER * James Siddiqui MA - 11/07/2023 12:52 PM CST LMOM with this info. Also, work note printed. Sent [employer] message to pt with these details and asked if she needs me to send/fax this letter somewhere. ICAL ADVISER * JENNIFER Davila - 11/07/2023 11:27 AM CST Let's send over 2 mg of tizanidine to see if this is helpful, One PO TID PRN, #20, no refills Also---are the tessalon perles helpful and if so---does she need a refill. And let her know she is very welcome ICAL ADVISER * JENNIFER Davila - 11/06/2023 10:38 AM CST Does she feel ready to return I can send over a muscle relaxer, but she will only be able to take this at night as can cause drowsiness. Has she had a muscle relaxer and if so, which one? ICAL ADVISER * James Siddiqui MA - 11/06/2023 9:35 [...] are confused when she is not there. ICAL ADVISER ICAL ADVISER * James Siddiqui MA - 11/04/2023 9:46 AM CST I called pt to see if she would be willing to use a [employer] or some other chain if I am able to find in stock. Pt requested [employer] in [place]. Will call to see if they have any, and pt is willing to drive somewhere else if she needs to. Pt c/o still heavy coughing, rib cage in front and both sides hurting and lower back muscle spasms from all the coughing. Pt said she did have a low-grade fever on Saturday (100 degrees) that resolved after taking Tylenol. Called [employer] in [place], they have in stock. Can you resend? ICAL ADVISER * James Siddiqui MA - 11/04/2023 9:41 AM CST I called pt's pharmacy to see if any other locations have in stock; pharmacist confirmed there is no local [facility] that has any in stock at current time. ICAL ADVISER * Janiya Walter RTSascha - 11/04/2023 9:22 AM CST Message from pharmacy: Guaidensin-codeune 100-10 mg/5 ml oral solution is on backorder ICAL ADVISER documented in this encounter Plan of Treatment Upcoming Encounters Date Type Department Care Team (Late st Contact Info) Description 10/09/2024 9:30 AM CLERICAL ADVISER Office Visit [facility]-[address] [phone] Carlos Farris MD [address] [facility] [address] [place] [address] 11/02/2024 10:20 AM CLERICAL ADVISER Office Visit [facility] Family & Internal Medicine - [address] [phone] Sami Liriano DO [address] [place] [address] documented as of this encounter Visit Diagnoses Diagnosis Muscle spasm- Primary Spasm of muscle Bronchitis Bronchitis, not specified as acute or chronic documented in this encounter Additional Health Concerns Assessment Noted Time PHQ-9 Depression Total Score: 0 10/11/19 22 10:50 AM CLERICAL ADVISER documented as of this encounter Care Teams Rental Car Ferry Driver Relationship Specialty Start Date End Date Sami Liriano DO [address] [place] [address] PCP - General FAMILY PRACTICE 12/24/19 documented as of this encounter
--- OUTSIDE RECORDS SUMMARY | 2024-09-19 19:38 | XMS_ITS | Encounter Summary ---
Author Organization [facility] Address [facility]. 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 Not on file Not on franck e documented as of this encounter Plan of Treatment Upcoming Encounters Date Type Department Care Team (Late st Contact Info) Description 10/09/2024 9:30 AM CAMPAIGN WORKER Office Visit [facility] [phone] Carlos Farris MD [address] [facility] [address] [place] [address] 11/02/2024 10:20 AM CAMPAIGN WORKER Office Visit [facility] Family & Internal Medicine - [address] [phone] Sami Liriano DO [address] [place] [address] documented as of this encounter Visit Diagnoses Not on filedocumented in this encounter Additional Health Concerns Assessment Noted Time PHQ-9 Depression Total Score: 0 10/11/19 22 10:50 AM CAMPAIGN WORKER documented as of this encounter Care Teams Personalized Living Manager Nurse Relationship Specialty Start Date End Date Sami Liriano DO [address] [place] [address] PCP - General FAMILY PRACTICE 12/24/19 documented as of this encounter
--- OUTSIDE RECORDS SUMMARY | 2024-09-19 19:38 | XMS_ITS | Encounter Summary ---
Author Organization [facility] Address [address] [facility]. [place], [place] [address] [place] [address] Care Team Providers Care Counter Clerk [employer] Name Role Phone Tracy Gimenez DO Primary [...] st Contact Info) Description 11/18/2023 11:40 AM GLOVE BRUSHER Office Visit [facility] Medical [facility] Family & Internal Medicine [address] [phone] Tracy Gimenez DO [address] [place] [address] Diabetes (3 month follow up. 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 Not on file Not on franck e documented as of this encounter Last Filed Vital Signs Vital Sign Reading Time Taken Comments Blood Pressure 146/84 11/18/2023 11:44 AM GLOVE BRUSHER Pulse 97 11/18/2023 11:44 AM GLOVE BRUSHER Temperature 36.6 ??C (97.9 ??F) 11/18/2023 1 1:44 AM GLOVE BRUSHER Respiratory Rate 20 11/18/2023 11:4 4 AM GLOVE BRUSHER Oxygen Saturation 98% 11/18/2023 12: 11 PM GLOVE BRUSHER Inhaled Oxygen Concentration - - Weight 114.3 kg (251 lb 14.4 oz) 2023 11:44 AM GLOVE BRUSHER Height 152.4 cm (5') 11/18/2023 11:44 AM GLOVE BRUSHER Body Mass Index 49.2 11/18/2023 11:44 AM GLOVE BRUSHER documented in this encounter Progress Notes * [...] 11/01/23. This was evaluated by Barb Sexton BARREL TURNER on that date. Pt was given prednisone [...] associated with type 2 diabetes mellitus (HHS/HCC) ([facility]) Arthritis of left knee GERD (gastroesophageal reflux disease) Overactive bladder Depression Pharyngoesophageal dysphagia Positive colorectal cancer screening using Cologuard test ALLYSON positive Stage 3a chronic kidney disease ([facility]) Severe obstructive sleep apnea Hyperlipidemia associated with type 2 diabetes mellitus (HHS/HCC) ([facility]) BMI 45.0-49.9, adult ([facility]) Current mild episode of major depressive disorder without prior episode ([facility]) Generalized osteoarthritis of multiple sites Inflammatory arthritis Urinary tract infection Morbid (severe) obesity due to excess calories ([facility]) Hx of adenomatous colonic polyps Family hx of colon cancer Body mass index (BMI) 45.0-49.9, adult ([facility]) Current moderate episode of major depressive disorder without prior episode ([facility]) Past Medical History: Diagnosis Date Anxiety disorder, unspecified Arthritis Arthritis of left knee 11/08/2019 Depression Diabetes mellitus ([facility]) ([facility]) GERD (gastroesophageal reflux disease) Hypertension Overactive bladder Past Surgical History: Procedure Laterality Date ANKLE SURGERY left SECTION COLONOSCOPY N/A 04/27/2020 COLONOSCOPY WITH BIOPSY X 3 performed by Joel Keenan MD at [facility] OR EGD EYE SURGERY FRACTURE [...] level: Not on file Occupational History 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 Tobacco Use Smoking status: Former Packs/day: 0.50 [...] every day at night 90 tablet 0 Vzbqmno-Jbboyftpdmz-Killelvapw (BREZTRI AEROSPHERE) 160-9-4.8 MCG/ACT Aerosol Inhale 2 [...] for this visit: Mucopurulent chronic bronchitis (HHS/HCC) ([facility]/H[facility]) - Noykobm-Aucryxbatak-Lrgmbhnifa (BREZTRI AEROSPHERE) 160-9-4.8 MCG/ACT Aerosol; Inhale 2 [...] complication, without long-term current use of insulin ([facility]) - HEMOGLOBIN, GLYCOSYLATED - COLLECT.CAPILLARY (FNGR,HEEL,EAR) - [...] Morbid (severe) obesity due to excess calories ([facility]) Body mass index (BMI) 45.0-49.9, adult ([facility]) Stage 3a chronic kidney disease ([facility]) - VITAMIN D, 25 OH; Future - ALBUMIN URINE RANDOM; Future - CBC W/DIFF AUTOMATED; Future - COMPREHENSIVE METABOLIC PANEL; Future - TSH W/REFLEX; Future - LIPID PANEL; Future Vitamin D deficiency - VITAMIN D, 25 OH; Future Hyperlipidemia associated with type 2 diabetes mellitus (HHS/HCC) ([facility]) - VITAMIN D, 25 OH; Future - ALBUMIN URINE RANDOM; Future - CBC W/DIFF AUTOMATED; Future - COMPREHENSIVE METABOLIC PANEL; Future - TSH W/REFLEX; Future - LIPID PANEL; Future Hypertension associated with type 2 diabetes mellitus (HHS/HCC) ([facility]) - VITAMIN D, 25 OH; Future - ALBUMIN URINE RANDOM; Future - CBC W/DIFF AUTOMATED; Future - COMPREHENSIVE METABOLIC PANEL; Future - TSH W/REFLEX; Future - LIPID PANEL; Future Current moderate episode of major depressive disorder without prior episode ([facility]) Discussion/Summary: Will order CXR today. Will give [...] the day of the encounter. This includes oddy-nj-qscb and jtk-nrgg-jj-face time I provided on the day of the encounter & excludes time spent performing separately reportable services. Tracy Gimenez DO E BRUSHER documented in this encounter Plan of Treatment Upcoming Encounters Date Type Department Care Team (Late st Contact Info) Description 10/09/2024 9:30 AM GLOVE BRUSHER Office Visit [facility] [phone] Carlos Farris MD [facility] [address] [place] [address] 11/02/2024 10:20 AM GLOVE BRUSHER Office Visit [facility] Medical Group Family & Internal Medicine - [address] [phone] Tracy Gimenez DO [address] [place] [address] documented as of this encounter Procedures Procedure Name Priority Date/Time Associated Diagnosis Comments COLLECT.CAPILLARY (FNGR,HEEL,EAR) Routine 11/18/2023 11:33 AM GLOVE BRUSHER Type 2 diabetes mellitus with other circulatory complication, without long-term current use of insulin ([facility]) HEMOGLOBIN, GLYCOSYLATED Routine 11/18/2023 Type 2 diabetes mellitus with other circulatory complication, without long-term current use of insulin ([facility]) documented in this encounter Results * LIPID PANEL (11/28/2023 3:02 PM GLOVE BRUSHER) CHOLESTEROL 164 <200 MG/DL 11/28/2023 8:19 PM GLOVE BRUSHER [facility] TRIGLYCERIDES 115 <150 MG/DL 11/28/2023 8:19 PM [facility] HDL 67 >40 MG/DL 11/28/2023 8:19 PM GLOVE BRUSHER [facility] LDL-C 74 <100 MG/DL 11/28/2023 8:19 PM GLOVE BRUSHER [facility] VLDL CALCULATION 23 5 - 28 MG/DL 11/28/2023 8:19 PM GLOVE BRUSHER [facility] CHOL/HDL RATIO 2.4 0.0 - 4.0 11/28/2023 8:19 PM GLOVE BRUSHER [facility] LDL/HDL 1.1 0.41 - 2.13 11/28/2023 8:19 PM GLOVE BRUSHER [facility] NON HDL CHOLESTEROL 97 <140 MG/DL 11/28/2023 8:19 PM GLOVE BRUSHER [facility] 11/28/2023 3:02 PM GLOVE BRUSHER Tracy Gimenez DO LABORATORY Final Re sult [facility] [address] [place] [address], [place] [phone] * TSH W/REFLEX (11/28/2023 3:02 PM GLOVE BRUSHER) TSH 0.947 0.358 - 3.740 uIU/ML 11/28/2023 8:19 PM GLOVE BRUSHER [facility] 11/28/2023 3:02 PM GLOVE BRUSHER Tracy Gimenez DO LABORATORY Final Re sult [facility] [address] [place] [address], [place] [phone] * (ABNORMAL) COMPREHENSIVE METABOLIC PANEL (11/28/2023 3:02 PM GLOVE BRUSHER) [facility] Signature SODIUM S/P/B 145 136 - 145 MMOL/L 11/28/2023 8:19 PM [facility] POTASSIUM S/P/B 4.0 3.5 - 5.1 MMOL/L 11/28/2023 8:19 PM [facility] CHLORIDE S/P/B 107 98 - 107 MMOL/L 11/28/2023 8:19 PM [facility] CO2 29.3 21 - 32 MMOL/L 11/28/2023 8:19 PM [facility] GLUCOSE 131(H) 70 - 99 MG/DL 11/28/2023 8:19 PM [facility] BUN 21(H) 7 - 18 MG/DL 11/28/2023 8:19 PM [facility] CREATININE S/P/B 1.24(H) 0.55 - 1.02 MG/DL 11/28/2023 8:19 PM [facility] CALCIUM S/P/B 9.1 8.4 - 10.5 MG/DL 11/28/2023 8:19 PM [facility] BILIRUBIN TOTAL S/P/B 0.7 0.2 - 1.0 MG/DL 11/28/2023 8:19 PM [facility] ALKALINE PHOSPHATASE S/P/B 90 55 - 142 U/L 11/28/2023 8:19 PM [facility] AST 12(L) 15 - 37 U/L 11/28/2023 8:19 PM [facility] ALT 20 14 - 59 U/L 11/28/2023 8:19 PM [facility] TOTAL PROTEIN S/P/B 7.0 6.4 - 8.2 G/DL 11/28/2023 8:19 PM [facility] MINE ALBUMIN S/P/B 3.9 3.4 - 5.0 G/DL 11/28/2023 8:19 PM GLOVE BRUSHER [facility] [place] ANION GAP 8.7 5 - 15 MMOL/L 11/28/2023 8:19 PM GLOVE BRUSHER [facility] [place] Comment:REFERENCE RANGE NOT ESTABLISHED OSMOLALITY (CALC) 305 MOSM/KG 024 8:19 PM GLOVE BRUSHER [facility] [place] Comment:REFERENCE RANGE NOT ESTABLISHED GFR ESTIMATE 47(L) >90 ML/MIN/1. 73 M2 11/28/2023 8:19 PM GLOVE BRUSHER [facility] [place] GFR NOTES GFR REFERENCE S: 11/28/2023 8:19 PM GLOVE BRUSHER [facility] [place] Comment: THE ESTIMATED GFR IS CALCULATED USING [...] FAILURE: <15 ml/min/1.73 m2 11/28/2023 3:02 PM GLOVE BRUSHER us Tracy Gimenez DO LABORATORY Final Re sult [facility] [place] [address] [place] [address], * (ABNORMAL) CBC W/DIFF AUTOMATED (11/28/2023 3:02 PM GLOVE BRUSHER) WBC 13.65(H) 4.00 - 10.80 x10'3/uL 11/28/2023 7:34 PM GLOVE BRUSHER [facility] RBC 4.41 4.10 - 5.40 x10'6/uL 11/28/2023 7:34 PM [facility] HGB 11.9(L) 12.0 - 16.0 G/DL 11/28/2023 7:34 PM [facility] HCT 37.7 36.0 - 47.0 % 11/28/2023 7:34 PM [facility] MCV 85.5 78.0 - 100.0 FL 11/28/2023 7:34 PM [facility] MCH 27.0 27.0 - 31.0 PG 11/28/2023 7:34 PM [facility] MCHC 31.6(L) 33.0 - 36.0 G/DL 11/28/2023 7:34 PM [facility] RDW 14.1 11.5 - 14.5 % 11/28/2023 7:34 PM [facility] PLT 273 150 - 350 x10'3/uL 11/28/2023 7:34 PM [facility] MPV 9.8 7.4 - 10.4 FL 11/28/2023 7:34 PM [facility] DIFFERENTIAL TYPE AUTOMATED DIFFERENTIAL 11/28/2023 7:34 PM [facility] NEUTROPHILS % 71.8 % 11/28/2023 7:34 PM [facility] LYMPHOCYTES % 21.8 % 11/28/2023 7:34 PM [facility] MONOCYTES % 5.6 % 11/28/2023 7:34 PM [facility] EOSINOPHILS % 0.1 % 11/28/2023 7:34 PM [facility] BASOPHILS % 0.1 % 11/28/2023 7:34 PM [facility] IMMATURE GRANS % 0.6 % 11/28/2023 7:34 PM [facility] ABS. NEUTROPHILS 9.79(H) 1.60 - 8.30 x10'3/uL 11/28/2023 7:34 PM GLOVE BRUSHER [facility] ABS. LYMPHOCYTES 2.98 0.80 - 4.70 x10'3/uL 11/28/2023 7:34 PM GLOVE BRUSHER [facility] ABS. MONOCYTES 0.77 0.00 - 1.50 x10'3/uL 11/28/2023 7:34 PM GLOVE BRUSHER [facility] ABS. EOSINOPHILS 0.02 0.00 - 0.40 x10'3/uL 11/28/2023 7:34 PM GLOVE BRUSHER [facility] ABS. BASOPHILS 0.01 0.00 - 0.20 x10'3/uL 11/28/2023 7:34 PM GLOVE BRUSHER [facility] ABS. IMMATURE GRANULOCYTES 0.08(H) 0.00 - 0.03 x10'3/uL 11/28/2023 7:34 PM GLOVE BRUSHER [facility] 11/28/2023 3:02 PM GLOVE BRUSHER Tracy Gimenez DO LABORATORY Final Re sult [facility] [address] [place] [address], * ALBUMIN URINE RANDOM (11/28/2023 3:02 PM GLOVE BRUSHER) MICROALBUMIN (U) 15.8 <20 MG/L 11/28/19 7:44 PM GLOVE BRUSHER [facility] CREATININE RANDOM (U) 135.8 MG/DL 11/28/2023 7:44 PM GLOVE BRUSHER [facility] ALBUMIN/CREAT RATIO 11.6 <30 MG/G 11/28/2023 7:44 PM GLOVE BRUSHER [facility] URINE SPECIMEN / Unknown 11/28/2023 3:02 PM GLOVE BRUSHER Tracy Gimenez DO URINE ORDERABLES Final R esult Performing Organization Address [facility] de Phone Number [facility] [address] [place] [address], [place] [phone] * (ABNORMAL) VITAMIN D, 25 OH (11/28/2023 3:02 PM GLOVE BRUSHER) VITAMIN D 25 HYDROXY TOTAL S/P/B 26.0(L) 30 - 100 NG/ML 11/28/2023 8:19 PM GLOVE BRUSHER [facility] Comment: ? DEFICIENT ??<20 ?INSUFFICIENT 20-30 ?SUFFICIENT 30-100 11/28/2023 3:02 PM GLOVE BRUSHER Tracy Gimenez DO LABORATORY Final Re sult Performing Organization Address [facility] de Phone Number [address] [address], * XR CHEST PA+LAT (11/18/2023 12:05 PM GLOVE BRUSHER) Anatomical Region Laterality Modality Chest Radiographic Jody ging 11/18/2023 3:41 PM GLOVE BRUSHER Impressions 11/18/2023 3:41 PM GLOVE BRUSHER IMPRESSION: Negative chest Ordered By: TRACY GIMENEZ Interpreted By: Bola Hood MD, 11/18/2023 3:41 PM Narrative 11/18/2023 3:41 PM GLOVE BRUSHER 2 VIEWS OF THE CHEST Clinical history: [...] HEMOGLOBIN, GLYCOSYLATED (11/18/2023) HGB A1C 6.1 % [facility] 11/18/2023 Tracy Gimenez DO LABORATORY Final Re sult [facility] [address] [place] [address], documented in this encounter Visit Diagnoses Diagnosis Mucopurulent chronic bronchitis ([facility])- Primary Mucopurulent chronic bronchitis Type 2 diabetes mellitus with other circulatory complication, without long-term current use of insulin ([facility]) Bronchitis Bronchitis, not specified as acute or chronic Morbid (severe) obesity due to excess calories ([facility]) Body mass index (BMI) 45.0-49.9, adult ([facility]) Stage 3a chronic kidney disease ([facility]) Vitamin D deficiency Unspecified vitamin D deficiency Hyperlipidemia associated with type 2 diabetes mellitus ([facility]) Hypertension associated with type 2 diabetes mellitus ([facility]) Current moderate episode of major depressive disorder without prior episode ([facility]) documented in this encounter Administered Medications Inactive Administered Medications - up to 3 most recent administrations Medication Order MAR Action Action Date Dose Rate Site methylPREDNISolone acetate (DEPO-Medrol) injection 80 mg 80 mg, Intramuscular, Once, 1 dose, On 11/18/23 at 1215, [facility] WellIndications:Bronchit is Given 11/18/2023 1:29 PM GLOVE BRUSHER 80 mg Right Dorsal Gluteal documented in this encounter Additional Health Concerns Assessment Noted Time PHQ-9 Depression Total Score: 0 10/11/19 22 10:50 AM GLOVE BRUSHER documented as of this encounter Care Teams Counter Clerk [employer] Relationship Specialty Start Date End Date Tracy Gimenez DO [address] [place] [address] PCP - General FAMILY PRACTICE 12/24/19 documented as of this encounter
--- OUTSIDE RECORDS SUMMARY | 2024-09-19 19:38 | XMS_ITS | Encounter Summary ---
Author Organization [facility] Address [facility]. [place], [place] [address] [place] [address] Care Team Providers Care Group Sales Representative Name Role Phone Sami Liriano DO Primary Care Provider + Reason for Visit * Reason Comments New Patient Referral colon mohini morin * Consultation/Treatment (Routine) - Closed Specialty Diagnoses / Procedures Referred By Shereen benton Referred To Contact GASTROENTEROLOGY Diagnoses Screening for malignant neoplasm of colon Sami Liriano DO [address] [place] [address] Phone: tel: fax: [facility] - [address], [address] [place] [address] Phone: tel: fax: Referral ID Status Reason Start Date Expiration Date V isits Requested Visits Authorized [id number] Closed Consultation 09/17/2023 03/29/2024 6 6 Encounter Details Date Type Department Care Team (Latest Contact Info) Description 09/27/2023 3:00 PM MATTRESS FILLER Office Visit [facility] Medical [facility] [address] [address] Sami Liriano DO [address] [place] [address] Saloni Wood NP [address] [place] [address] New Patient (Referral colon screening ) Social [...] on file Legal Sex Female 12:43 PM MATTRESS FILLER Gender Identity Female 12/18/2021 6:31 AM CDT Sexual Orientation Straight 01/15/2022 6: 11 AM CDT 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 Not on file Not on franck e documented as of this encounter Last Filed Vital Signs Vital Sign Reading Time Taken Comments Blood Pressure 136/78 09/27/2023 2:42 PM MATTRESS FILLER Pulse 70 09/27/2023 2:42 PM MATTRESS FILLER Temperature 36.7 ??C (98 ??F) 09/27/2023 2:42 PM MATTRESS FILLER Respiratory Rate 20 09/27/2023 2:42 PM MATTRESS FILLER Oxygen Saturation 96% 09/27/2023 2:42 PM MATTRESS FILLER Inhaled Oxygen Concentration - - Weight 112.5 kg (248 lb) 09/27/2023 2:42 PM MATTRESS FILLER Height 152.4 cm (5') 09/27/2023 2:42 PM MATTRESS FILLER Body Mass Index 48.43 09/27/2023 2:42 PM MATTRESS FILLER documented in this encounter Patient Instructions * Attachments The following attachments cannot be sent through Care Everywhere. * Acid reflux and GERD in adults ([place]) documented in this encounter Progress Notes * [...] performed by Joel Keenan MD at [facility] OR EGD HERNIA REPAIR SHOULDER SURG PROC [...] given symptoms patient was dilated to 54 [place] Savary dilator. Multiple colon polyps removed (one [...] in this encounter. Saloni Wood NP Gastroenterology RESS FILLER documented in this encounter Plan of Treatment Upcoming Encounters Date Type Department Care Team (Late st Contact Info) Description 10/09/2024 9:30 AM MATTRESS FILLER Office Visit [facility] [phone] Carlos Farris MD [facility] [address] [place] [address] 11/02/2024 10:20 AM MATTRESS FILLER Office Visit [facility] Medical Group Family & Internal Medicine - [address] [phone] Sami Liriano DO [address] [place] [address] documented as of this encounter Visit Diagnoses [...] Total Score: 0 10/11/19 22 10:50 AM MATTRESS FILLER documented as of this encounter Care Teams Group Sales Representative Relationship Specialty Start Date End Date Sami Liriano DO [address] [place] [address] PCP - General FAMILY PRACTICE 12/24/19 documented as of this encounter
--- OUTSIDE RECORDS SUMMARY | 2024-09-19 19:38 | XMS_ITS | Encounter Summary ---
Author Organization [facility] Address [address] [place] [address]. [place], [place] [address] [place] [address] Care Team Providers Care Composition Roofer Name Role Phone Sami Liriano DO Primary Care Provider + Reason for Visit * Reason Comments Hypertension 3 months Encounter Details Date Type Department Care Team (Late st Contact Info) Description 07/26/2023 9:40 AM CDT Office Visit [facility] Family & Internal Medicine [id number] [place] [address] Sami Liriano DO [address] [place] [address] Hypertension (3 months) Social History Tobacco [...] on file Legal Sex Female 12:43 PM DUPLICATOR PUNCH OPERATOR Gender Identity Female 12/18/2021 6:31 AM CDT Sexual Orientation Straight 01/15/2022 6: 11 AM CDT 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 [...] Hypertension associated with type 2 diabetes mellitus ([facility]/HCC) ([facility]) Arthritis of left knee GERD (gastroesophageal reflux disease) Overactive bladder Depression Pharyngoesophageal dysphagia Positive colorectal cancer screening using Cologuard test [place]ON positive Stage 3a chronic kidney disease ([facility]) Severe obstructive sleep apnea Hyperlipidemia associated with type 2 diabetes mellitus ([facility]/HCC) ([facility]) BMI 45.0-49.9, adult ([facility]) Current mild episode of major depressive disorder without prior episode ([facility]) Generalized osteoarthritis of multiple sites Inflammatory arthritis Urinary tract infection Morbid (severe) obesity due to excess calories ([facility]) Past Medical History: Diagnosis Date Arthritis Arthritis of left knee 11/08/2019 Depression GERD (gastroesophageal reflux disease) Hypertension Overactive bladder Past Surgical History: Procedure Laterality Date ANKLE SURGERY left SECTION COLONOSCOPY N/A 04/27/2020 COLONOSCOPY WITH BIOPSY X 3 performed by Joel Keenan MD at [facility] OR EGD HERNIA REPAIR SHOULDER SURG [...] on file Occupational 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 Tobacco Use Smoking status: Former Packs/day: [...] complication, without long-term current use of insulin ([facility]) - HEMOGLOBIN, GLYCOSYLATED - COLLECT.CAPILLARY (FNGR,HEEL,EAR) Mucopurulent chronic bronchitis ([facility]/HCC) ([facility]/HCC) Wheezing - albuterol sulfate HFA 108 (90 [...] st Contact Info) Description 10/09/2024 9:30 AM DUPLICATOR PUNCH OPERATOR Office Visit [facility] [phone] Carlos Farris MD [address] [facility] [address] [place] [address] 11/02/2024 10:20 AM DUPLICATOR PUNCH OPERATOR Office Visit [facility] Medical Group Family & Internal Medicine - [address] [phone] Sami Liriano DO [address] [place] [address] [id number] documented as of this encounter Procedures Procedure Name Priority Date/Time Associated Diagnosis Comments COLLECT.CAPILLARY (FNGR,HEEL,EAR) Routine 07/26/2023 9:56 AM CDT Type 2 diabetes mellitus with other circulatory complication, without long-term current use of insulin ([facility]) HEMOGLOBIN, GLYCOSYLATED Routine 07/26/2023 Type 2 diabetes mellitus with other circulatory complication, without long-term current use of insulin ([facility]) documented in this encounter Results * HEMOGLOBIN, GLYCOSYLATED (07/26/2023) HGB A1C 6.1 % [facility] 07/26/2023 us Sami Liriano DO LABORATORY Final Re sult [facility] [address] [place] [address], documented in this encounter Visit Diagnoses Diagnosis Type 2 diabetes mellitus with other circulatory complication, without long-term current use of insulin ([facility]/HCC HHS/HCC)- Primary Mucopurulent chronic bronchitis (CMS/HCC HHS/HCC) Mucopurulent chronic bronchitis Wheezing Hypertension associated with type 2 diabetes mellitus (CMS/HCC HHS/HCC) Hyperlipidemia associated with type 2 diabetes mellitus (CMS/HCC HHS/HCC) documented in this encounter Additional Health Concerns Assessment Noted Time PHQ-9 Depression Total Score: 0 10/11/19 22 10:50 AM DUPLICATOR PUNCH OPERATOR documented as of this encounter Care Teams Composition Roofer Relationship Specialty Start Date End Date Sami Liriano DO [address] [place] [address] PCP - General FAMILY PRACTICE 12/24/19 documented as of this encounter
--- OUTSIDE RECORDS SUMMARY | 2024-09-19 19:38 | XMS_ITS | Encounter Summary ---
Author Organization [facility] Address [facility]. [place], [place] [address] [place] [address] Care Team Providers Care Pass Worker Name Role Phone Sami Liriano Primary Care Provider + Encounter Details Date Type Department Care Team (Late st Contact Info) Description 11/18/2023 Orders Only [facility] [address] [place] [address] Joel Keenan MD [address] [place] [address] [phone] Social History Tobacco Use Types Packs/Day Years [...] on file Legal Sex Female 12:43 PM DEVELOPMENTAL EDUCATION INSTRUCTOR Gender Identity Female 12/18/2021 6:31 AM CDT Sexual Orientation Straight 01/15/2022 6: 11 AM CDT 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 Not on file Not on franck e documented as of this encounter Plan of Treatment Upcoming Encounters Date Type Department Care Team (Late st Contact Info) Description 10/09/2024 9:30 AM DEVELOPMENTAL EDUCATION INSTRUCTOR Office Visit [facility] [phone] Carlos Farris MD [address] [facility] [address] [place] [address] 11/02/2024 10:20 AM DEVELOPMENTAL EDUCATION INSTRUCTOR Office Visit [facility] Family & Internal Medicine - [address] [phone] Sami Liriano DO [address] [place] [address] documented as of this encounter Visit Diagnoses Not on filedocumented in this encounter Additional Health Concerns Assessment Noted Time PHQ-9 Depression Total Score: 0 10/11/19 10:50 AM DEVELOPMENTAL EDUCATION INSTRUCTOR documented as of this encounter Care Teams Pass Worker Relationship Specialty Start Date End Date Sami Liriano DO [address] [place] [address] PCP - General FAMILY PRACTICE 12/24/19 documented as of this encounter
--- OUTSIDE RECORDS SUMMARY | 2024-09-19 19:38 | XMS_ITS | Encounter Summary ---
Author Organization [facility] Address [facility] [place], [place] [address] [place] [address] Care Team Providers Care Olive Packer Name Role Phone Sami Liriano Nicole AGUIAR [...] DIAGNOSTIC WITH/WITHOUT SPECIMEN BRUSH/WASH Joel Keenan MD [address] [place] [address] [place] [address] Phone: tel: fax: Referral ID Status Reason Start Date Expiration Date V isits Requested Visits Authorized [id number] New Request 10/03/2023 10/03/2024 1 1 E STEAMER Encounter Details Date Type Department Care Team (Late st Contact Info) Description 10/03/2023 Orders Only [facility] Medical [facility] Multispecialty Care - [facility] [address] [facility] [address] [place] [address] Joel Keenan MD [address] [place] [address] [address] [place] [address] Social History Tobacco Use Types Packs/Day Years [...] on file Legal Sex Female 12:43 PM VALVE STEAMER Gender Identity Female 12/18/2021 6:31 AM CDT Sexual Orientation Straight 01/15/2022 6: 11 AM CDT 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 Not on file Not on franck e documented as of this encounter Plan of Treatment Upcoming Encounters Date Type Department Care Team (Late st Contact Info) Description 10/09/2024 9:30 AM VALVE STEAMER Office Visit [facility]-[address] [phone] Carlos Farris MD [facility] [address] [place] [address] 11/02/2024 10:20 AM VALVE STEAMER Office Visit [facility] Medical Group Family & Internal Medicine - [address] [phone] Sami Liriano DO [address] [place] [address] Scheduled Orders Name Type Priority Associated Diagnoses [...] Rule Out 11/01/2023 11/01/2023 11/01/2023 2:42 PM VALVE STEAMER Assessment Noted Time PHQ-9 Depression Total Score: 0 10/11/19 10:50 AM VALVE STEAMER documented as of this encounter Care Teams Olive Packer Relationship Specialty Start Date End Date Sami Liriano DO [address] [place] [address] PCP - General FAMILY PRACTICE 12/24/19 documented as of this encounter
--- OUTSIDE RECORDS SUMMARY | 2024-09-19 19:38 | XMS_ITS | Encounter Summary ---
Author Organization [facility] Address [address] [place] [address]. [place], [place] [address] [place] [address] Care Team Providers Care Carton Repairer Name Role Phone Sami Liriano DO Primary Care Provider + Reason for Visit * Reason Onset Date Comments Medication Request 10/22/2023 Encounter Details Date Type Department Care Team (Late st Contact Info) Description 10/22/2023 Telephone 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 The patient v/u and agreed to discuss at appt. /R SERVICE TECHNICIAN * Brooke Lema MA - 10/23/2023 3:08 PM CST LMOM for patient to return call. /R SERVICE TECHNICIAN * Sami Liriano DO - 10/22/2023 2:29 PM CST I'd recommend keeping OV and discussing then; her insurance would not cover a switch to Mounjaro without very specific criteria being met. These have to be documented in an OV to be covered. /R SERVICE TECHNICIAN * Winter Espinosa - 10/22/2023 11:51 AM CST Pt is asking if she can switch from metformin to mounjaro as she is not feeling improvement on metformin. Please advise. /R SERVICE TECHNICIAN documented in this encounter Plan of Treatment Upcoming Encounters Date Type Department Care Team (Late st Contact Info) Description 10/09/2024 9:30 AM HVAC/R SERVICE TECHNICIAN Office Visit [facility] [phone] [facility] [address] [facility] [place] [address] 11/02/2024 10:20 AM HVAC/R SERVICE TECHNICIAN Office Visit [facility] Medical Group Family & Internal Medicine - [place] [address] [place] [address] Sami Liriano DO [address] [place] [address] documented as of this encounter Visit Diagnoses Not on filedocumented in this encounter Additional Health Concerns Assessment Noted Time PHQ-9 Depression Total Score: 0 10/11/19 22 10:50 AM HVAC/R SERVICE TECHNICIAN documented as of this encounter Care Teams Carton Repairer Relationship Specialty Start Date End Date Sami Liriano DO [address] [place] [address] PCP - General FAMILY PRACTICE 12/24/19 documented as of this encounter
--- OUTSIDE RECORDS SUMMARY | 2024-09-19 19:38 | XMS_ITS | Encounter Summary ---
Author Organization [facility] Address [address] [place] [address]. [place], [place] [address] [place] [address] Care Team Providers Care Gas Pumper Name Role Phone Sami Liriano DO Primary Care Provider + Reason for Visit * Reason Onset Date Comments Advice 08/05/2023 Encounter Details Date Type Department Care Team (Late st Contact Info) Description 08/05/2023 Telephone [facility] Medical Group Family & Internal Medicine [phone] [place] [address] Sami Liriano DO [address] [place] [address] Advice Social History Tobacco Use Types [...] on file Legal Sex Female 12:43 PM WARRANT SERVER Gender Identity Female 12/18/2021 6:31 AM CDT [...] further needs voiced at this time. -08/08/23 ANT SERVER * Brooke Hidalgo - 08/07/2023 1:21 PM CST Patient called the office back and would like a returned phone call to [phone]. ANT SERVER * Deb Varela RN - 08/07/2023 9:52 AM CST Attempted to call the patient, was unable to reach them at this time. Left a message requesting a call back. -08/07/23 ANT SERVER * Sami Liriano DO - 08/05/2023 1:10 PM CST Will send out cefdinir. Will also send out Advair to see if this helps; let her know about using mouthwash after use to avoid oral thrush. ANT SERVER * Radha Oglesby MA - 08/05/2023 10:08 AM CST Patient states she has finished her antibiotic this morning and states she still has a cough and she is still not well. She was told to call PCP if this happens Allergic to sulfa and kimberly cordero #[phone] ANT SERVER documented in this encounter Plan of Treatment Upcoming Encounters Date Type Department Care Team (Late st Contact Info) Description 10/09/2024 9:30 AM WARRANT SERVER Office Visit [facility] [phone] Carlos Farris MD [address] [facility] [address] [place] [address] 11/02/2024 10:20 AM WARRANT SERVER Office Visit [facility] Medical Group Family & Internal Medicine - [address] [phone] Sami Liriano DO [address] [place] [address] documented as of this encounter Visit Diagnoses Diagnosis Acute cough- Primary Mucopurulent chronic bronchitis ([facility]) Mucopurulent chronic bronchitis documented in this encounter Additional Health Concerns Assessment Noted Time PHQ-9 Depression Total Score: 0 10/11/19 22 10:50 AM WARRANT SERVER documented as of this encounter Care Teams Gas Pumper Relationship Specialty Start Date End Date Sami Liriano DO [address] [place] [address] PCP - General FAMILY PRACTICE 12/24/19 documented as of this encounter
--- OUTSIDE RECORDS SUMMARY | 2024-09-19 19:38 | XMS_ITS | Encounter Summary ---
Author Organization [facility] Address [facility]6 [facility]. [place], [place] [address] [place] [address] Care Team Providers Care Licensed Loan Officer Assistant Name Role Phone Sami Liriano Nicole AGUIAR Primary Care Provider + Encounter Details Date Type Department Care Team (Rach Contact Info) Description 08/30/2023 TheFriendMail Message Enc [facility] Medical Group Family & Internal Medicine [address] [phone] [facility] Provider A1C Social History Tobacco Use Types [...] on file Legal Sex Female 12:43 PM HIDES AND SKINS COLORER Gender Identity Female 12/18/2021 6:31 AM CDT Sexual Orientation Straight 01/15/2022 6: 11 AM CDT 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 [address] [place] [address] 11/02/2024 10:20 AM HIDES AND SKINS COLORER Office Visit [facility] Medical Group Family & Internal Medicine - [address] [phone] Sami Liriano DO [address] [place] [address] documented as of this encounter Visit Diagnoses Not on filedocumented in this encounter Additional Health Concerns Infection Onset Date Last Indicated Resolved Time COVID-19 Rule Out 11/01/2023 11/01/2023 11/01/2023 2:42 PM HIDES AND SKINS COLORER Assessment Noted Time PHQ-9 Depression Total Score: 0 10/11/19 22 10:50 AM HIDES AND SKINS COLORER documented as of this encounter Care Teams Licensed Loan Officer Assistant Relationship Specialty Start Date End Date Sami Liriano DO [address] [place] [address] PCP - General FAMILY PRACTICE 12/24/19 documented as of this encounter
--- OUTSIDE RECORDS SUMMARY | 2024-09-19 19:38 | XMS_ITS | Encounter Summary ---
Author Organization [facility] Address [facility]. 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 Not on file Not on franck e documented as of this encounter Plan of Treatment Upcoming Encounters Date Type Department Care Team (Late Contact Info) Description 10/09/2024 9:30 AM ACCOUNT REVIEW SPECIALIST Office Visit [facility] [address] Carlos Farris MD [address] [facility] [address] [place] [address] 11/02/2024 10:20 AM ACCOUNT REVIEW SPECIALIST Office Visit [facility] Family & Internal Medicine - [address] [phone] Sami Liriano DO [address] [place] [address] documented as of this encounter Visit Diagnoses Not on filedocumented in this encounter Additional Health Concerns Assessment Noted Time PHQ-9 Depression Total Score: 0 10/11/19 22 10:50 AM ACCOUNT REVIEW SPECIALIST documented as of this encounter Care Teams Business Excellence Manager Relationship Specialty Start Date End Date Sami Liriano DO [address] [place] [address] PCP - General FAMILY PRACTICE 12/24/19 documented as of this encounter
--- OUTSIDE RECORDS SUMMARY | 2024-09-19 19:38 | XMS_ITS | Encounter Summary ---
Author Organization [facility] Address [facility] 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 [address] [place] [address] 11/02/2024 10:20 AM PULMONOLOGIST/INTENSIVIST Office Visit [facility] Medical Group Family & Internal Medicine - [address] [phone] Sami Liriano DO [address] [place] [address] documented as of this encounter Visit Diagnoses Not on filedocumented in this encounter Additional Health Concerns Assessment Noted Time PHQ-9 Depression Total Score: 0 10/11/19 22 10:50 AM PULMONOLOGIST/INTENSIVIST documented as of this encounter Care Teams Leather Craftsman Relationship Specialty Start Date End Date Sami Liriano DO [address] [place] [address] PCP - General FAMILY PRACTICE 12/24/19 documented as of this encounter
--- OUTSIDE RECORDS SUMMARY | 2024-09-19 19:38 | XMS_ITS | Encounter Summary ---
Author Organization [facility] Address [facility]. [place], [place] [address] [place] [address] Care Team Providers Care Logger Name Role Phone Sami Liriano Primary Care Provider + Reason for Visit * Reason Comments URI/ENT Symptoms Dry cough, sore thro at, headache, fever, SOB, wheezing. Fever last night 101. Sx onset Saturday. At home COVID test negative today. Encounter Details Date Type Department Care Team (Late st Contact Info) Description 11/01/2023 1:20 PM MANAGEMENT INFORMATION SYSTEMS DIRECTOR Telemedicine [facility] Family & Internal Medicine - [address] [phone] 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 Not on franck e documented as of this encounter Last Filed Vital Signs Vital Sign Reading Time Taken Comments Blood Pressure - - Pulse 87 11/01/2023 2:50 PM MANAGEMENT INFORMATION SYSTEMS DIRECTOR Temperature 36.7 ??C (98 ??F) 11/01/2023 2:50 PM MANAGEMENT INFORMATION SYSTEMS DIRECTOR Respiratory Rate 24 11/01/2023 2:50 PM MANAGEMENT INFORMATION SYSTEMS DIRECTOR Oxygen Saturation 98% 11/01/2023 2:50 PM MANAGEMENT INFORMATION SYSTEMS DIRECTOR Inhaled Oxygen Concentration - - Weight 111.1 kg (245 lb) 11/01/2023 1:27 PM MANAGEMENT INFORMATION SYSTEMS DIRECTOR Height - - Body Mass Index 47.85 09/27/2023 2:42 PM MANAGEMENT INFORMATION SYSTEMS DIRECTOR documented in this encounter Progress Notes * JENNIFER Davila - 11/01/2023 1:20 PM CST Images from the original note were not included. [facility] FAMILY AND INTERNAL MEDICINE OFFICE VISIT I introduced and identified myself, received verbal consent from the patient to proceed with this video visit and made the patient aware that the same confidentiality and information lead practices apply. The patient joined the video visit from Home. I completed the virtual visit from Office. The following clinical staff helped with this visit MA: Jayna . Total Time Spent in Minutes: 10 [...] days ago. 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 This includes dbtd-ff-byca and ypr-uxfe-xk-face time I provided on the day of [...] not an admission. PCP: JENNIFER Davila 11/01/2023 GEMENT INFORMATION SYSTEMS DIRECTOR documented in this encounter Plan of Treatment Upcoming Encounters Date Type Department Care Team (Late st Contact Info) Description 10/09/2024 9:30 AM MANAGEMENT INFORMATION SYSTEMS DIRECTOR Office Visit [facility] [phone] Carlos Farris MD Three [facility] [address] [place] [address] 11/02/2024 10:20 AM MANAGEMENT INFORMATION SYSTEMS DIRECTOR Office Visit [facility] Family & Internal Medicine - [address] [phone] Sami Liriano DO [address] [place] [address] documented as of this encounter Procedures Procedure Name Priority Date/Time Associated Diagnosis Comments CORONAVIRUS (COVID-19) INFLUENZA A & B ANTIGEN IA PANEL Routine 11/01/2023 Acute cough Nonintractable headache, unspecified chronicity pattern, unspecified headache type Fever, unspecified fever cause Sore throat documented in this encounter Results * XR CHEST PA+LAT (11/01/2023 2:57 PM MANAGEMENT INFORMATION SYSTEMS DIRECTOR) Anatomical Region Laterality Modality Chest Radiographic Jody ging 11/01/2023 3:09 PM MANAGEMENT INFORMATION SYSTEMS DIRECTOR Impressions 11/01/2023 3:10 PM MANAGEMENT INFORMATION SYSTEMS DIRECTOR IMPRESSION: Stable chest, no acute findings. Ordered By: NATHAN SEXTON Interpreted By: Bola Hood MD, 11/01/2023 3:09 PM Narrative 11/01/2023 3:10 PM MANAGEMENT INFORMATION SYSTEMS DIRECTOR 2 VIEWS OF THE CHEST Clinical history: [...] PANEL (11/01/2023) CORONAVIRUS ANTIGEN IA NEGATIVE NEGATIVE [facility] INFLUENZA A NEGATIVE NEGATIVE [facility] INFLUENZA B NEGATIVE NEGATIVE [facility] Internal Control: VALID VALID [facility] NASAL STRUCTURE / Unknown 11/01/2023 Nathan RODRIGUEZ MICROBIOLOGY - GENERAL ORDE RABLES Final Result [facility] [address] [place] [address], documented in this encounter Visit Diagnoses Diagnosis Acute cough- Primary Nonintractable headache, unspecified chronicity pattern, unspecified headache type Fever, unspecified fever cause Sore throat Acute pharyngitis Bronchitis Bronchitis, not specified as acute or chronic documented in this encounter Additional Health Concerns Infection Onset Date Last Indicated Resolved Time COVID-19 Rule Out 11/01/2023 11/01/2023 11/01/2023 2:42 PM MANAGEMENT INFORMATION SYSTEMS DIRECTOR Assessment Noted Time PHQ-9 Depression Total Score: 0 10/11/19 22 10:50 AM MANAGEMENT INFORMATION SYSTEMS DIRECTOR documented as of this encounter Care Teams Logger Relationship Specialty Start Date End Date Sami Liriano DO [address] [place] [address] PCP - General FAMILY PRACTICE 12/24/19 documented as of this encounter
--- OUTSIDE RECORDS SUMMARY | 2024-09-19 19:38 | XMS_ITS | Encounter Summary ---
Author Organization [facility] Address [facility]6 [facility]. [place], [place] [address] [place] [address] Care Team Providers Care Puppet Master Name Role Phone Sami Liriano DO Primary Care Provider + Reason for Visit * Reason Comments Urinary Frequency Also has very painfu l urination All symptoms started on Saturday Encounter Details Date Type Department Care Team (Late st Contact Info) Description 09/09/2023 3:20 PM SPOILAGE WORKER Office Visit [facility] Family & Internal Medicine [address] [phone] Sami Liriano DO [address] [place] [address] [phone] Urinary Frequency (Also has very painful urination [...] on file Legal Sex Female 12:43 PM SPOILAGE WORKER Gender Identity Female 12/18/2021 6:31 AM CDT Sexual Orientation Straight 01/15/2022 6: 11 AM CDT 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 Not on franck e documented as of this encounter Last Filed Vital Signs Vital Sign Reading Time Taken Comments Blood Pressure 138/82 09/09/2023 3:20 PM SPOILAGE WORKER Pulse 72 09/09/2023 3:20 PM SPOILAGE WORKER Temperature 36.7 ??C (98 ??F) 09/09/2023 3:20 PM SPOILAGE WORKER Respiratory Rate 16 09/09/2023 3:20 PM SPOILAGE WORKER Oxygen Saturation 98% 09/09/2023 3:20 PM SPOILAGE WORKER Inhaled Oxygen Concentration - - Weight 111.5 kg (245 lb 14.4 oz) 09/09/2023 3:20 PM SPOILAGE WORKER Height 152.4 cm (5') 09/09/2023 3:20 PM SPOILAGE WORKER Body Mass Index 48.02 09/09/2023 3:20 PM SPOILAGE WORKER documented in this encounter Progress Notes * [...] diabetes mellitus (HHS/HCC) (CMS/HCC) BMI 45.0-49.9, adult ([facility]) Current mild episode of major depressive disorder without prior episode ([facility]) Generalized osteoarthritis of multiple sites Inflammatory arthritis Urinary tract infection Morbid (severe) obesity due to excess calories (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 Pt v/u. Sami Liriano DO LAGE WORKER documented in this encounter Plan of Treatment Upcoming Encounters Date Type Department Care Team (Late st Contact Info) Description 10/09/2024 9:30 AM SPOILAGE WORKER Office Visit [facility] [phone] Carlos Farris MD [address] [facility] [address] [place] [address] 11/02/2024 10:20 AM SPOILAGE WORKER Office Visit [facility] Group Family & Internal Medicine - [address] [phone] Sami Liriano DO [address] [place] [address] documented as of this encounter Procedures Procedure Name Priority Date/Time Associated Diagnosis Comments URINE BACTERIA CULTURE Routine 09/09/2023 4:33 PM SPOILAGE WORKER Dysuria URINALYSIS AUTO DIP Routine 09/09/2023 Dysuria documented in this encounter Results * (ABNORMAL) CULTURE URINE (09/09/2023 4:33 PM SPOILAGE WORKER) CULTURE RESULT (A) [place] Comment: ??CULTURE, URINE, ROUTINE ?Micro Number: ?[id number] ??Test Status: ? Final ??Specimen Source: ?? [...] CATCH PROCEDURE / Unknown 09/09/2023 4:33 PM SPOILAGE WORKER 09/10/2023 12:39 AM SPOILAGE WORKER Narrative Resulting Agency Comment Performing Organization Information: ?Site ID: ?[facility] ?Address: [facility] [place] [address] ?Director: Bang Person us Sami Liriano DO MICROBIOLOGY - GENERAL O RDERABLES Final Result Performing Organization Address [facility]/ZIP Co de Phone Number [facility] [phone], * (ABNORMAL) URINALYSIS AUTO DIP (09/09/2023) COLOR (U) DARK YELLOW YELLOW [facility] TRANSPARENCY CLOUDY(A) CLEAR [facility] GLUCOSE (U) NEGATIVE NEGATIVE MG/DL [facility] BILIRUBIN (U) NEGATIVE NEGATIVE [facility] KET[facility] MG/DL (U) NEGATIVE NEGATIVE MG/DL [facility] SPECIFIC GRAVITY (U) 1.020 1.001 - 1.035 [facility] BLOOD (U) NEGATIVE NEGATIVE [facility] U PH 5.5 5.0 - 9.0 [facility] PROTEIN (U) NEGATIVE NEGATIVE mg/dL [facility] UROBILINOGEN 0.2 0.2 - 1.0 EU/dL = mg/dL [facility] NITRITES NEGATIVE NEGATIVE MG/DL [facility] LEUKOCYTES (U) 1+ (SMALL)(A) NEGATIVE [facility] URINE SPECIMEN OBTAINED BY CLEAN CATCH PROCEDURE / Unknown 09/09/2023 us Sami Liriano DO URINE ORDERABLES Final R esult Performing Organization Address City/[facility] [place] [address], documented in this encounter Visit Diagnoses Diagnosis Acute cystitis without hematuria- Primary Acute cystitis Dysuria documented in this encounter Additional Health Concerns Assessment Noted Time PHQ-9 Depression Total Score: 0 10/11/19 22 10:50 AM SPOILAGE WORKER documented as of this encounter Care Teams Puppet Master Relationship Specialty Start Date End Date Sami Liriano DO [address] [place] [address] PCP - General FAMILY PRACTICE 12/24/19 documented as of this encounter
--- OUTSIDE RECORDS SUMMARY | 2024-09-19 19:38 | XMS_ITS | Encounter Summary ---
Author Organization [facility] Address [facility]6 [facility] 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 Medical Group Family & Internal Medicine [address] [phone] Sami Liriano DO [address] [place] [address] documented as of this encounter Visit Diagnoses Not on filedocumented in this encounter Additional Health Concerns Infection Onset Date Last Indicated Resolved Time COVID-19 Rule Out 11/01/2023 11/01/2023 11/01/2023 2:42 PM DIRECTOR MATERNAL CHILD Assessment Noted Time PHQ-9 Depression Total Score: 0 10/11/19 22 10:50 AM DIRECTOR MATERNAL CHILD documented as of this encounter Care Teams Peeler Operator Relationship Specialty Start Date End Date Sami Liriano DO [address] [place] [address] PCP - General FAMILY PRACTICE 12/24/19 documented as of this encounter
--- OUTSIDE RECORDS SUMMARY | 2024-09-19 19:38 | XMS_ITS | Encounter Summary ---
Author Organization [facility] Address [address] [place] [address]. [place], [place] [address] [place] [address] Care Team Providers Care Fondant Machine Operator Name Role Phone Sami Gimenez DO Primary Care Provider + Reason for Visit * Reason Onset Date Comments Medication Request 07/25/2023 Encounter Details Date Type Department Care Team (Late st Contact Info) Description 07/25/2023 Telephone [facility] Family & Internal Medicine [facility] [address] [place] [address] Sami Gimenez DO [facility] [place] [address] Medication Request Social History Tobacco [...] Legal Sex Female 12:43 PM DIRECTOR CLINICAL OPERATIONS Gender Identity Female 12/18/2021 6:31 AM CDT [...] (90 Base) MCG/ACT inhaler Pharmacy: [facility] Diaz [place], [place] Last visit with SAMI GIMENEZ in FAMILY PRACTICE was on: 07/24/2023 in [facility] Future Appointments Date Time Provider Department Center 07/26/2023 9:40 AM Sami Gimenez DO FMMRVL [facility] 09/27/2023 3:00 PM Saloni Wood NP [facility] documented in this encounter Plan of Treatment Upcoming Encounters Date Type Department Care Team (Late st Contact Info) Description 10/09/2024 9:30 AM DIRECTOR CLINICAL OPERATIONS Office Visit [facility]-[address] [phone] Carlos Farris MD [facility] [address] [place] [address] 11/02/2024 10:20 AM DIRECTOR CLINICAL OPERATIONS Office Visit [facility] Medical Group Family & Internal Medicine - [address] [phone] Sami Gimenez DO [address] [place] [address] documented as of this encounter Visit Diagnoses Not on filedocumented in this encounter Additional Health Concerns Infection Onset Date Last Indicated Resolved Time COVID-19 Rule Out 07/24/2023 07/24/2023 07/25/2023 4:22 PM CDT Assessment Noted Time PHQ-9 Depression Total Score: 0 10/11/19 10:50 AM DIRECTOR CLINICAL OPERATIONS documented as of this encounter Care Teams Fondant Machine Operator Relationship Specialty Start Date End Date Sami Gimenez DO [address] [place] [address] PCP - General FAMILY PRACTICE 12/24/19 documented as of this encounter
--- OUTSIDE RECORDS SUMMARY | 2024-09-19 19:38 | XMS_ITS | Encounter Summary ---
Author Organization [facility] Address [address] [place] [address]. [place], [place] [address] [place] [address] Care Team Providers Care Multimedia Coordinator Name Role Phone Sami Liriano DO Primary Care Provider + Reason for Visit * Reason Onset Date Comments Orders 09/09/2023 Encounter Details Date Type Department Care Team (Late st Contact Info) Description 09/09/[address] [facility] Family & Internal Medicine [place] [address] [place] [address] Sami Liriano DO [address] [place] [address] Orders Social History Tobacco Use Types [...] on file Legal Sex Female 12:43 PM EMPLOYEE RELATION MANAGER Gender Identity Female 12/18/2021 6:31 AM [...] no furtherneeds voiced at this time. LL-09/09/23 OYEE RELATION MANAGER * Sami Liriano DO - 09/09/2023 1:03 PM CST We could do one of our visits for UTI's. OYEE RELATION MANAGER * Winter Espinosa - 09/09/2023 12:17 PM CST Pt believes she has uti wanting to give a sample and have it tested. OYEE RELATION MANAGER documented in this encounter Plan of Treatment Upcoming Encounters Date Type Department Care Team (Late st Contact Info) Description 10/09/2024 9:30 AM EMPLOYEE RELATION MANAGER Office Visit [facility] [phone] Carlos Farris MD [address] [facility] [address] [place] [address] 11/02/2024 10:20 AM EMPLOYEE RELATION MANAGER Office Visit [facility] Family & Internal Medicine - [address] [phone] Sami Liriano DO [address] [place] [address] documented as of this encounter Visit Diagnoses Not on filedocumented in this encounter Additional Health Concerns Assessment Noted Time PHQ-9 Depression Total Score: 0 10/11/19 22 10:50 AM EMPLOYEE RELATION MANAGER documented as of this encounter Care Teams Multimedia Coordinator Relationship Specialty Start Date End Date Sami Liriano DO [address] [place] [address] PCP - General FAMILY PRACTICE 12/24/19 documented as of this encounter
--- OUTSIDE RECORDS SUMMARY | 2024-09-19 19:38 | XMS_ITS | Encounter Summary ---
Author Organization [facility] Address [facility]. [place], [place] [address] [place] [address] Care Team Providers Care Patient Access Specialist Name Role Phone RomeofroylanNatalie lozoyachary Nicole AGUIAR Primary Care Provider + Reason for Visit * Reason Onset Date Comments Prior Authorization 10/18/2023 Colonoscopy- [id number] Encounter Details Date Type Department Care Team (Late st Contact Info) Description 10/18/2023 Telephone [facility] Multispecialty Care - [facility] [address] [facility], [address] [place] [phone] Puma Keenan MD [address] [facility] [address] [place] [address] Prior Authorization (Colonoscopy-[id number] 0;[id number]) Social History Tobacco Use Types Packs/Day Years [...] on file Legal Sex Female 12:43 PM HOSE STRIPPER Gender Identity Female 12/18/2021 6:31 AM CDT Sexual Orientation Straight 01/15/2022 6: 11 AM CDT 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 file Not on franck e documented as of this encounter Progress Notes * Yissel Hawk MA - 10/18/2023 11:42 AM CST Fri Oct 18, 2023 12:43:11 PM EST JOLLY SARGENT [address] [facility] [place] [address] ID:[id number] :[id number]:F Referring Provider: PUMA KEENAN [address] [facility] [address], [place] [id number] TIN:[id number] Servicing Facility: [address] [address] Ph:[phone] TIN:[id number] Servicing Provider: PUMA KEENAN [address] [facility] [address], [place] [address] Ph:[phone] TIN:[id number] Category: Health Services Review Service: Surgical Facility: [facility] Certification: Initial Requested Dates: Nov 20, 2023 - February 18, 2024 Diagnosis codes: 1. Z12.11 Encounter for screening for malignant neoplasm of colon 2. Z86.010 Personal history of colonic polyps Requested Services: 1. 22698: REMOVAL OF POLYPS OR GROWTHS OF LARGE BOWEL USING AN ENDOSCOPE WITH MECHANICAL SNARE Status: CERTIFIED Servicing Provider:PUMA KEENAN; TIN:[id number]; [place] [address] 1 2. 34053: BIOPSY OF LARGE BOWEL USING A FLEXIBLE ENDOSCOPE Status: CERTIFIED Servicing Provider:PUMA KEENAN; TIN:[id number]; [place] [address] 1 3. 31608: DIAGNOSTIC EXAM OF LARGE BOWEL USING A FLEXIBLE ENDOSCOPE Status: CERTIFIED Servicing Provider:PUMA KEENAN; TIN:[id number]; [place] [address] 1 Status: APPROVED Authorization #: [id number] Message: Payment is based on member eligibility, medical necessity review, where applicable and [facility] provider contractual agreement. Authorization does not guarantee payment. History 4. Certified3. Data Sent2. Data Requested1. STRIPPER documented in this encounter Plan of Treatment Upcoming Encounters Date Type Department Care Team (Late st Contact Info) Description 10/09/2024 9:30 AM HOSE STRIPPER Office Visit [facility]-[address] [phone] Carlos Farris MD Three [facility] [address] [place] [address] 11/02/2024 10:20 AM HOSE STRIPPER Office Visit [facility] Medical Group Family & Internal Medicine - [address] [phone] [place] [address] [place] [address] documented as of this encounter Visit Diagnoses Not on filedocumented in this encounter Additional Health Concerns Assessment Noted Time PHQ-9 Depression Total Score: 0 10/11/19 22 10:50 AM HOSE STRIPPER documented as of this encounter Care Teams Patient Access Specialist Relationship Specialty Start Date End Date Sami Liriano DO [address] [place] [address] PCP - General FAMILY PRACTICE 12/24/19 documented as of this encounter
--- OUTSIDE RECORDS SUMMARY | 2024-09-19 19:38 | XMS_ITS | Encounter Summary ---
Author Organization [facility] Address [address] [place] [address]. 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 Not on franck e documented as of this encounter Plan of Treatment Upcoming Encounters Date Type Department Care Team (Late st Contact Info) Description 10/09/2024 9:30 AM LOAN ASSOCIATE Office Visit [facility] [phone] Carlos Farris MD Three [facility] [address] [place] [address] 11/02/2024 10:20 AM LOAN ASSOCIATE Office Visit [facility] Medical Group Family & Internal Medicine - [address] [phone] Sami Liriano DO [address] [place] [address] documented as of this encounter Visit Diagnoses Not on filedocumented in this encounter Additional Health Concerns Assessment Noted Time PHQ-9 Depression Total Score: 0 10/11/19 22 10:50 AM LOAN ASSOCIATE documented as of this encounter Care Teams Community Health Consultant Relationship Specialty Start Date End Date Sami Liriano DO [address] [place] [address] PCP - General FAMILY PRACTICE 12/24/19 documented as of this encounter
--- OUTSIDE RECORDS SUMMARY | 2024-09-19 19:38 | XMS_ITS | Encounter Summary ---
Author Organization [facility] Address [address] [place] [address]. [place], [place] [address] [place] [address] Care Team Providers Care Puppy Trainer Name Role Phone Sami Liriano DO Primary Care Provider + Reason for Visit * Reason Onset Date Comments Error 09/18/2023 Encounter Details Date Type Department Care Team (Late st Contact Info) Description 09/18/2023 Patient Outreach [facility] Family & Internal Medicine [address] [place] [address] Sami Liriano DO [address] [place] [address] Error Social History Tobacco Use Types [...] file Legal Sex Female 12:43 PM DOOR ATTENDANT Gender Identity Female 12/18/2021 6:31 AM CDT Sexual Orientation Straight 01/15/2022 6: 11 AM CDT 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 [address] [place] [address] 11/02/2024 10:20 AM DOOR ATTENDANT Office Visit [facility] Family & Internal Medicine - [address] [address] Sami Liriano DO [address] [place] [address] documented as of this encounter Visit Diagnoses Not on filedocumented in this encounter Additional Health Concerns Assessment Noted Time PHQ-9 Depression Total Score: 0 10/11/19 22 10:50 AM DOOR ATTENDANT documented as of this encounter Care Teams Puppy Trainer Relationship Specialty Start Date End Date Sami Liriano DO [address] [place] [address] PCP - General FAMILY PRACTICE 12/24/19 documented as of this encounter
--- OUTSIDE RECORDS SUMMARY | 2024-09-19 19:38 | XMS_ITS | Encounter Summary ---
Author Organization [facility] Address [address] [place] [address]. [place], [place] [address] [place] [address] Care Team Providers Care Dress Cap Maker Name Role Phone Sami Liriano DO Primary Care Provider + Reason for Visit * Reason Onset Date Comments Question 08/20/2023 Encounter Details Date Type Department Care Team (Late st Contact Info) Description 08/20/2023 Telephone [facility] Family & Internal Medicine [address] [place] [address] Sami Liriano DO [facility] [place] [address] Question Social History Tobacco Use [...] on file Legal Sex Female 12:43 PM STUDENT AFFAIRS VICE PRESIDENT Gender Identity Female 12/18/2021 6:31 [...] the a1c on 07/26/2023. It was 6.1. ENT AFFAIRS VICE PRESIDENT * Radha De Oliveira MA - 08/20/2023 3:51 PM CST Called/LM for patient to return call. Need to know where last A1C blood draw was done so that we can request copy of result. ENT AFFAIRS VICE PRESIDENT documented in this encounter Plan of Treatment Upcoming Encounters Date Type Department Care Team (Late st Contact Info) Description 10/09/2024 9:30 AM STUDENT AFFAIRS VICE PRESIDENT Office Visit [facility]-[address] [phone] Carlos Farris MD [facility] [address] [place] [address] 11/02/2024 10:20 AM STUDENT AFFAIRS VICE PRESIDENT Office Visit [facility] Family & Internal Medicine - [address] [phone] Saim Liriano DO [address] [place] [address] documented as of this encounter Visit Diagnoses Not on filedocumented in this encounter Additional Health Concerns Assessment Noted Time PHQ-9 Depression Total Score: 0 10/11/19 22 10:50 AM STUDENT AFFAIRS VICE PRESIDENT documented as of this encounter Care Teams Dress Cap Maker Relationship Specialty Start Date End Date Sami Liriano DO [address] [place] [address] PCP - General FAMILY PRACTICE 12/24/19 documented as of this encounter
--- OUTSIDE RECORDS SUMMARY | 2024-09-19 19:38 | XMS_ITS | Encounter Summary ---
Author Organization [facility] Address [address] [place] [address]. [place], [place] [address] [place] [address] Care Team Providers Care Home Hospice Aide Name Role Phone Sami Liriano DO Primary Care Provider + Reason for Visit * Reason Onset Date Comments Quality Gap Closure 09/18/2023 Encounter Details Date Type Department Care Team (Late st Contact Info) Description 09/18/2023 Patient Outreach [facility] Family & Internal Medicine [phone] [place] [address] Sami Liriano DO [address] [place] [address] [phone] Quality Gap Closure Social History Tobacco Use [...] on file Legal Sex Female 12:43 PM SHEEP CLIPPER Gender Identity Female 12/18/2021 6:31 AM CDT Sexual Orientation Straight 01/15/2022 6: 11 AM CDT 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 If you need to contact me directly- my number is [phone]. Preventive Screenings: Breast Cancer Screening: Pending Completion [...] Date Notes: Shingles: Needs Follow Up Notes: P CLIPPER documented in this encounter Plan of Treatment Upcoming Encounters Date Type Department Care Team (Late st Contact Info) Description 10/09/2024 9:30 AM SHEEP CLIPPER Office Visit [facility]-[address] [phone] Carlos Farris MD [address] [facility] [address] [place] [address] 11/02/2024 10:20 AM SHEEP CLIPPER Office Visit [facility] Group Family & Internal Medicine - [address] [phone] Sami Liriano DO [address] [place] [address] documented as of this encounter Visit Diagnoses Not on filedocumented in this encounter Additional Health Concerns Assessment Noted Time PHQ-9 Depression Total Score: 0 01/12/20 22 10:50 AM SHEEP CLIPPER documented as of this encounter Care Teams Home Hospice Aide Relationship Specialty Start Date End Date Sami Liriano DO [address] [place] [address] PCP - General FAMILY PRACTICE 12/24/19 documented as of this encounter
--- OUTSIDE RECORDS SUMMARY | 2024-09-19 19:38 | XMS_ITS | Encounter Summary ---
Author Organization [facility] Address [address] [place] [address]. [place], [place] [address] [place] [address] Care Team Providers Care Slice Plug Cutter Operator Helper Name Role Phone Sami Liriano DO Primary Care Provider + Encounter Details Date Type Department Care Team (Late st Contact Info) Description 09/26/2023 [employer] Message Enc [facility] Family & Internal Medicine [address] [place] [address] Sami Liriano DO [address] [place] [address] Mammogram Results Social History Tobacco [...] on file Legal Sex Female 12:43 PM WILDLIFE ECOLOGY PROFESSOR Gender Identity Female 12/18/2021 6:31 AM CDT Sexual Orientation Straight 01/15/2022 6: 11 AM CDT 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 Not on franck e documented as of this encounter Plan of Treatment Upcoming Encounters Date Type Department Care Team (Late st Contact Info) Description 10/09/2024 9:30 AM WILDLIFE ECOLOGY PROFESSOR Office Visit [facility]-[address] [place] [address] [phone] Carlos Farris MD [address] [facility] [address] [place] [address] 11/02/2024 10:20 AM WILDLIFE ECOLOGY PROFESSOR Office Visit [facility] Medical Group Family & Internal Medicine - [address] [phone] Sami Liriano DO [address] [place] [address] documented as of this encounter Visit Diagnoses Not on filedocumented in this encounter Additional Health Concerns Infection Onset Date Last Indicated Resolved Time COVID-19 Rule Out 11/01/2023 11/01/2023 11/01/2023 2:42 PM WILDLIFE ECOLOGY PROFESSOR Assessment Noted Time PHQ-9 Depression Total Score: 0 10/11/19 22 10:50 AM WILDLIFE ECOLOGY PROFESSOR documented as of this encounter Care Teams Slice Plug Cutter Operator Helper Relationship Specialty Start Date End Date Sami Liriano DO [address] [place] [address] PCP - General FAMILY PRACTICE 12/24/19 documented as of this encounter
--- OUTSIDE RECORDS SUMMARY | 2024-09-19 19:38 | XMS_ITS | Encounter Summary ---
Author Organization [facility] Address [address] [place] [address]. 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 Not on franck e documented as of this encounter Plan of Treatment Upcoming Encounters Date Type Department Care Team ([facility] Contact Info) Description 10/09/2024 9:30 AM BRONZE CHASER Office Visit [facility] [address] [place] [address] Carlos Farris MD Three [facility] [address] [place] [address] 11/02/2024 10:20 AM BRONZE CHASER Office Visit [facility] Family & Internal Medicine - [place] [address] [place] [address] Sami Liriano DO [address] [place] [address] documented as of this encounter Procedures Procedure [...] Rule Out 11/01/2023 11/01/2023 11/01/2023 2:42 PM BRONZE CHASER Assessment Noted Time PHQ-9 Depression Total Score: 0 10/11/19 22 10:50 AM BRONZE CHASER documented as of this encounter Care Teams Cadastral Engineer Relationship Specialty Start Date End Date Sami Liriano DO [address] [place] [address] PCP - General FAMILY PRACTICE 12/24/19 documented as of this encounter
--- OUTSIDE RECORDS SUMMARY | 2024-09-19 19:39 | XMS_ITS | Encounter Summary ---
Author Organization [facility] Address [facility]. 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 franck e documented as of this encounter Plan of Treatment Upcoming Encounters Date Type Department Care Team (Late st Contact Info) Description 10/09/2024 9:30 AM YARN EXAMINER SKEINS Office Visit [facility] [phone] Carlos Farris MD [address] [facility] [address] [place] [address] 11/02/2024 10:20 AM YARN EXAMINER SKEINS Office Visit [facility] Medical Group Family & Internal Medicine - [address] [phone] Sami Liriano DO [address] [place] [address] documented as of this encounter Visit Diagnoses Not on filedocumented in this encounter Additional Health Concerns Infection Onset Date Last Indicated Resolved Time COVID-19 Rule Out 07/24/2023 07/24/2023 07/24/2023 11:49 AM CDT COVID-19 Rule Out 07/24/2023 07/24/2023 07/25/2023 4:22 PM CDT Assessment Noted Time PHQ-9 Depression Total Score: 0 10/11/19 10:50 AM YARN EXAMINER SKEINS documented as of this encounter Care Teams Pcts Relationship Specialty Start Date End Date Sami Liriano DO [address] [place] [address] PCP - General FAMILY PRACTICE 12/24/19 documented as of this encounter
--- OUTSIDE RECORDS SUMMARY | 2024-09-19 19:39 | XMS_ITS | Encounter Summary ---
Author Organization [facility] Address [address] [place] [address]. [place], [place] [address] [place] [address] Care Team Providers Care Automotive Worker Foreman Name Role Phone Sami Liriano DO Primary Care Provider + Reason for Visit * Reason Onset Date Comments Sinus Problem 04/18/2023 Advice 04/18/2023 Encounter Details Date Type Department Care Team (Late st Contact Info) Description 04/18/2023 Telephone [facility] Group Family & Internal Medicine [address] [place] [address] Sami iLriano DO [facility] [place] [address] Sinus Problem; Advice Social History [...] on file Legal Sex Female 12:43 PM BRIDGE INSTRUCTOR Gender Identity Female 12/18/2021 6:31 AM [...] st Contact Info) Description 10/09/2024 9:30 AM BRIDGE INSTRUCTOR Office Visit [facility]-[address] [phone] Carlos Farris MD Three [facility] [address] [place] [address] 11/02/2024 10:20 AM BRIDGE INSTRUCTOR Office Visit [facility] Family & Internal Medicine - [address] [phone] Sami Liriano DO [address] [place] [address] documented as of this encounter Visit Diagnoses Not on filedocumented in this encounter Additional Health Concerns Assessment Noted Time PHQ-9 Depression Total Score: 0 10/11/19 10:50 AM BRIDGE INSTRUCTOR documented as of this encounter Care Teams Automotive Worker Foreman Relationship Specialty Start Date End Date Sami Liriano DO [address] [place] [address] PCP - General FAMILY PRACTICE 12/24/19 documented as of this encounter
--- OUTSIDE RECORDS SUMMARY | 2024-09-19 19:39 | XMS_ITS | Encounter Summary ---
Author Organization [facility] Address [facility]. 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 file Not on franck e documented as of this encounter Plan of Treatment Upcoming Encounters Date Type Department Care Team (Late st Contact Info) Description 10/09/2024 9:30 AM CARDIOVASCULAR SPECIALIST Office Visit [facility] [phone] Carlos Farris MD [address] [facility] [address] [place] [address] 11/02/2024 10:20 AM CARDIOVASCULAR SPECIALIST Office Visit [facility] Group Family & Internal Medicine - [address] [phone] Sami Liriano DO [address] [place] [address] documented as of this encounter Visit Diagnoses Not on filedocumented in this encounter Additional Health Concerns Assessment Noted Time PHQ-9 Depression Total Score: 0 10/11/19 22 10:50 AM CARDIOVASCULAR SPECIALIST documented as of this encounter Care Teams Pressure Supervisor Relationship Specialty Start Date End Date Sami Liriano DO [address] [place] [address] PCP - General FAMILY PRACTICE 12/24/19 documented as of this encounter
--- OUTSIDE RECORDS SUMMARY | 2024-09-19 19:39 | XMS_ITS | Encounter Summary ---
Author Organization [facility] Address [address] [place] [address]. [place], [place] [address] [place] [address] Care Team Providers Care Car Spotter Name Role Phone Sami Liriano DO Primary Care Provider + Reason for Referral * Consultation (Urgent) - Closed Specialty Diagnoses / Procedures Referred By Shereen t Referred To Contact PULMONARY DISEASE Diagnoses Obstructive sleep apnea Procedures OFFICE/OUTPT VISIT,NEW,LEVL III OFFICE/OUTPT VISIT,NEW,LEVL IV OFFICE/OUTPT VISIT,NEW,LEVL V OFFICE/OUTPT VISIT,EST,LEVL III OFFICE/OUTPT VISIT,EST,LEVL IV OFFICE/OUTPT VISIT,EST,LEVL V Sami Liriano DO [address] [place] [address] Phone: tel: fax: Sami Pinto MD [address] [place] [address] Phone: tel: fax: Referral ID Status Reason Start Date Expiration Date V isits Requested Visits Authorized [id number] Closed Specialty Services 02/26/2023 03/28/2024 1 1 Scheduling Instructions Pt. Scheduled on 03/08/2023, needs ESSENCE prior authorization Reason for Visit * Reason Onset Date Comments Referral 02/26/2023 Encounter Details Date Type Department Care Team (Late st Contact Info) Description 02/26/2023 Telephone [facility] Family & Internal Medicine [address] [address] Jose Lirianoyevgeniy Rivera DO [address] [place] [address] Referral Social History Tobacco Use Types Packs/Day [...] on file Legal Sex Female 12:43 PM SHOPFITTER Gender Identity Female 12/18/2021 6:31 AM CDT [...] st Contact Info) Description 10/09/2024 9:30 AM SHOPFITTER Office Visit [facility]-[address] [phone] Carlos Farris MD Three [facility] [address] [place] [address] 11/02/2024 10:20 AM SHOPFITTER Office Visit [facility] Medical Group Family & Internal Medicine - [address] [phone] Sami Liriano DO [address] [place] [address] Scheduled Referrals Name Type Priority Associated Diagnoses Orde r Schedule Ambulatory referral to Pulmonology (OTHER) Referral Routine Obstructive sleep apnea Ordered: 02/26/2023 documented as of this encounter Visit Diagnoses Diagnosis Obstructive sleep apnea- Primary Obstructive sleep apnea (adult) (pediatric) documented in this encounter Additional Health Concerns Assessment Noted Time PHQ-9 Depression Total Score: 0 10/11/19 10:50 AM SHOPFITTER documented as of this encounter Care Teams Car Spotter Relationship Specialty Start Date End Date Sami Liriano DO [address] [place] [address] PCP - General FAMILY PRACTICE 12/24/19 documented as of this encounter
--- OUTSIDE RECORDS SUMMARY | 2024-09-19 19:39 | XMS_ITS | Encounter Summary ---
Author Organization [facility] Address [address] [place] [address]. [place], [place] [address] [place] [address] Care Team Providers Care Bone Char Kiln Tender Name Role Phone Sami Liriano DO Primary Care Provider + Reason for Visit * Reason Onset Date Comments Pre-visit Gap Closure 04/17/2023 Encounter Details Date Type Department Care Team (Late st Contact Info) Description 04/17/2023 Patient Outreach [facility] Family & Internal Medicine [address] [place] [address] [address] Sami Liriano DO [address] [place] [address] [phone] Pre-visit Gap Closure Social History Tobacco Use [...] on file Legal Sex Female 12:43 PM LINOTYPE MACHINIST Gender Identity Female 12/18/2021 6:31 AM [...] st Contact Info) Description 10/09/2024 9:30 AM LINOTYPE MACHINIST Office Visit [facility]-[address] [phone] Carlos Farris MD [facility] [address] [place] [address] 11/02/2024 10:20 AM LINOTYPE MACHINIST Office Visit [facility] Group Family & Internal Medicine - [place] [address] [place] [phone] Sami Liriano DO [address] [place] [address] documented as of this encounter Visit Diagnoses Not on filedocumented in this encounter Additional Health Concerns Assessment Noted Time PHQ-9 Depression Total Score: 0 10/11/19 10:50 AM LINOTYPE MACHINIST documented as of this encounter Care Teams Bone Char Kiln Tender Relationship Specialty Start Date End Date Sami Liriano DO NPI: [id number] [place] [address] PCP - General FAMILY PRACTICE 12/24/19 documented as of this encounter
--- OUTSIDE RECORDS SUMMARY | 2024-09-19 19:39 | XMS_ITS | Encounter Summary ---
Author Organization [facility] Address [address] [place] [address]. [place], [place] [address] [place] [address] Care Team Providers Care Wound Care Technician Name Role Phone Sami Liriano DO Primary Care Provider + Reason for Visit * Reason Onset Date Comments Knee Pain 03/19/2023 Encounter Details Date Type Department Care Team (Late st Contact Info) Description 03/19/2023 Telephone [facility] Medical Group Family & Internal Medicine [facility] [address] [place] [address] Sami Liriano DO [facility] [place] [address] Knee Pain Social History Tobacco [...] on file Legal Sex Female 12:43 PM PCAS Gender Identity Female 12/18/2021 6:31 AM CDT [...] st Contact Info) Description 10/09/2024 9:30 AM PCAS Office Visit [facility]-[address] [phone] Carlos Farris MD Three [facility] [address] [facility] [place] [address] 11/02/2024 10:20 AM PCAS Office Visit [facility] Medical Group Family & Internal Medicine - [address] [address] Sami Liriano DO [address] [place] [address] documented as of this encounter Visit Diagnoses Not on filedocumented in this encounter Additional Health Concerns Assessment Noted Time PHQ-9 Depression Total Score: 0 10/11/19 22 10:50 AM PCAS documented as of this encounter Care Teams Wound Care Technician Relationship Specialty Start Date End Date Sami Liriano DO [address] [place] [address] PCP - General FAMILY PRACTICE 12/24/19 documented as of this encounter
--- OUTSIDE RECORDS SUMMARY | 2024-09-19 19:39 | XMS_ITS | Encounter Summary ---
Author Organization [facility] System Address [facility]6 [facility]. [place], [place] [address] [place] [address] Care Team Providers Care Boilermaking Supervisor Name Role Phone Sami Liriano Primary Care Provider + Encounter Details Date Type Department Care Team (Late Contact Info) Description 04/17/2023 [employer] Message Enc [facility] Family & Internal Medicine [address] [phone] In*Situ Architecture, [facility] Provider Mammogram Social History Tobacco Use [...] file Legal Sex Female 12:43 PM COMMERCIAL SALES CONSULTANT Gender Identity Female 12/18/2021 6:31 AM CDT Sexual Orientation Straight 01/15/2022 6: 11 AM CDT 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 Not on file Not on franck e documented as of this encounter Plan of Treatment Upcoming Encounters Date Type Department Care Team (Late st Contact Info) Description 10/09/2024 9:30 AM COMMERCIAL SALES CONSULTANT Office Visit [facility] [phone] Carlos Farris MD Three [facility] [address] [place] [address] 11/02/2024 10:20 AM COMMERCIAL SALES CONSULTANT Office Visit [facility] Family & Internal Medicine - [address] [phone] Sami Liriano DO [address] [place] [address] documented as of this encounter Visit Diagnoses Not on filedocumented in this encounter Additional Health Concerns Infection Onset Date Last Indicated Resolved Time COVID-19 Rule Out 07/24/2023 07/24/2023 07/24/2023 11:49 AM CDT COVID-19 Rule Out 07/24/2023 07/24/2023 07/25/2023 4:22 PM CDT COVID-19 Rule Out 11/01/2023 11/01/2023 11/01/2023 2:42 PM COMMERCIAL SALES CONSULTANT Assessment Noted Time PHQ-9 Depression Total Score: 0 10/11/19 22 10:50 AM COMMERCIAL SALES CONSULTANT documented as of this encounter Care Teams Boilermaking Supervisor Relationship Specialty Start Date End Date Sami Liriano DO [address] [place] [address] PCP - General FAMILY PRACTICE 12/24/19 documented as of this encounter
--- OUTSIDE RECORDS SUMMARY | 2024-09-19 19:39 | XMS_ITS | Encounter Summary ---
Author Organization [facility] Address [facility]6 [facility]. [place], [place] [address] [place] [address] Care Team Providers Care Warehouse Forklift Operator Name Role Phone Sami Gimenez DO Primary Care Provider + Reason for Referral * Consultation/Treatment (Routine) - Closed Specialty Diagnoses / Procedures Referred By Sheeren benton Referred To Contact GASTROENTEROLOGY Diagnoses Screening for malignant neoplasm of colon Sami Gimenez DO [address] [place] [address] Phone: tel: fax: [facility] - [address], [address] [place] [address] Phone: tel: fax: Referral ID Status Reason Start Date Expiration Date V isits Requested Visits Authorized [id number] Closed Consultation 09/17/2023 03/29/2024 6 6 Reason for Visit * Reason Comments Diabetes 6 month follow up Xray/ultrasound Order CXR Encounter Details Date Type Department Care Team (Late st Contact Info) Description 04/25/2023 11:40 AM CDT Office Visit 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 file [...] associated with type 2 diabetes mellitus (HHS/HCC) ([facility]) Arthritis of left knee GERD (gastroesophageal reflux disease) Overactive bladder Depression Pharyngoesophageal dysphagia Positive colorectal cancer screening using Cologuard test ALLYSON positive Stage 3a chronic kidney disease ([facility]) Severe obstructive sleep apnea Hyperlipidemia associated with type 2 diabetes mellitus (HHS/HCC) ([facility]) BMI 45.0-49.9, adult ([facility]) Current mild episode of major depressive disorder without prior episode ([facility]) Generalized osteoarthritis of multiple sites Inflammatory arthritis Urinary tract infection Morbid (severe) obesity due to excess calories ([facility]) Past Medical History: Diagnosis Date Arthritis Arthritis of left knee 11/08/2019 Depression GERD (gastroesophageal reflux disease) Hypertension Overactive bladder Past Surgical History: Procedure Laterality Date ANKLE SURGERY left SECTION COLONOSCOPY N/A 04/27/2020 COLONOSCOPY WITH BIOPSY X 3 performed by Joel Keenan MD at 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 Tobacco Use Smoking status: Former Packs/day: 1.00 [...] without long-term current use of insulin (HHS/HCC) ([facility]) - HEMOGLOBIN, GLYCOSYLATED - COLLECT.CAPILLARY (FNGR,HEEL,EAR) Encounter for screening mammogram for breast cancer - SCREENING W SHIN HAN DIGI; Future Screening for malignant neoplasm of colon - Ambulatory referral to Gastroenterology ( [place]) Hyperlipidemia associated with type 2 diabetes mellitus (HHS/HCC) ([facility]/HCC) Hypertension associated with type 2 diabetes mellitus (HHS/HCC) ([facility]) Stage 3a chronic kidney disease ([facility]) Discussion/Summary: Continue chronic medications as prescribed; stable [...] st Contact Info) Description 10/09/2024 9:30 AM RADIOLOGICAL EQUIPMENT SPECIALIST Office Visit [facility]-[address] [phone] Carlos Farris MD Three [facility] [address] [facility] [place] [address] 11/02/2024 10:20 AM RADIOLOGICAL EQUIPMENT SPECIALIST Office Visit [facility] Family & Internal Medicine - [address] [phone] Sami Gimenez DO [address] [place] [address] Scheduled Orders Name Type Priority Associated Diagnoses Orde r Schedule HEMOGLOBIN, GLYCOSYLATED Lab Routine Type 2 diabetes mellitus without complication, without long-term current use of insulin ([facility]) Ordered: 04/25/2023 Scheduled Referrals Name Type Priority Associated Diagnoses Orde r Schedule Ambulatory referral to Gastroenterology ([facility] [place]) Referral Routine Screening for malignant neoplasm of colon Ordered: 04/25/2023 documented as of this encounter Procedures Procedure Name Priority Date/Time Associated Diagnosis Comments COLLECT.CAPILLARY (FNGR,HEEL,EAR) Routine 04/25/2023 11:47 AM CDT Type 2 diabetes mellitus without complication, without long-term current use of insulin ([facility]) documented in this encounter Results * XR [...] without long-term current use of insulin ([facility]) Encounter for screening mammogram for breast cancer Screening for malignant neoplasm of colon Hyperlipidemia associated with type 2 diabetes mellitus ([facility]) Hypertension associated with type 2 diabetes mellitus ([facility]) Stage 3a chronic kidney disease ([facility]) documented in this encounter Additional Health Concerns Assessment Noted Time PHQ-9 Depression Total Score: 0 10/11/19 22 10:50 AM RADIOLOGICAL EQUIPMENT SPECIALIST documented as of this encounter Care Teams Warehouse Forklift Operator Relationship Specialty Start Date End Date Sami Gimenez DO [address] [place] [address] PCP - General FAMILY PRACTICE 12/24/19 documented as of this encounter
--- OUTSIDE RECORDS SUMMARY | 2024-09-19 19:39 | XMS_ITS | Encounter Summary ---
Author Organization [facility] Address [facility]6 [facility]. [place], [place] [address] [place] [address] Care Team Providers Care Avian Keeper Name Role Phone Sami Liriano Primary Care Provider + Reason for Visit * Reason Comments Allergies The patient states s he has mold in her house and they are repairing the house and it is making her sick. 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 The patient joined the video visit from Home. I completed the virtual visit from Home. 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 Nose: Nose normal. Mouth/Throat: Lips: [place]. Mouth: Mucous membranes are moist. Eyes: General: [...] or concerns We discussed starting a daily awyh-ouh-gwbgejt antihistamine to help with her congestion Advised [...] st Contact Info) Description 10/09/2024 9:30 AM STEEL ROD BUSTER Office Visit [facility]-[address] [phone] Carlos Farris MD [address] [facility] [address] [facility] [place] [address] 11/02/2024 10:20 AM STEEL ROD BUSTER Office Visit [facility] Family & Internal Medicine - [address] [phone] Sami Liriano DO [address] [place] [address] documented as of this encounter Visit Diagnoses Diagnosis Acute non-recurrent frontal sinusitis- Primary Wheezing documented in this encounter Additional Health Concerns Assessment Noted Time PHQ-9 Depression Total Score: 0 10/11/19 22 10:50 AM STEEL ROD BUSTER documented as of this encounter Care Teams Avian Keeper Relationship Specialty Start Date End Date Sami Liriano DO [address] [place] [address] PCP - General FAMILY PRACTICE 12/24/19 documented as of this encounter
--- OUTSIDE RECORDS SUMMARY | 2024-09-19 19:39 | XMS_ITS | Encounter Summary ---
Author Organization [facility] Address [facility]6 [facility]. 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 Not on file Not on franck e documented as of this encounter Plan of Treatment Upcoming Encounters Date Type Department Care Team (Late st Contact Info) Description 10/09/2024 9:30 AM ELECTRICITY TRADING ANALYST Office Visit [facility] [phone] Carlos Farris MD [address] [facility] [address] [place] [address] 11/02/2024 10:20 AM ELECTRICITY TRADING ANALYST Office Visit [facility] Family & Internal Medicine - [address] [phone] Sami Liriano DO [address] [place] [address] documented as of this encounter Visit Diagnoses Not on filedocumented in this encounter Additional Health Concerns Assessment Noted Time PHQ-9 Depression Total Score: 0 10/11/19 22 10:50 AM ELECTRICITY TRADING ANALYST documented as of this encounter Care Teams Truck Caterer Relationship Specialty Start Date End Date Sami Liriano DO [address] [place] [address] PCP - General FAMILY PRACTICE 12/24/19 documented as of this encounter
--- OUTSIDE RECORDS SUMMARY | 2024-09-19 19:39 | XMS_ITS | Encounter Summary ---
Author Organization [facility] Address [facility]. [place], [place] [address] [place] [address] Care Team Providers Care Director Independent Name Role Phone Sami Liriano DO Primary Care Provider + Reason for Visit * Reason Comments Cough Cough, fatigue and h eadache. The symptoms started on Saturday. Encounter Details Date Type Department Care Team (Late st Contact Info) Description 07/24/2023 10:40 AM CDT Office Visit [facility] Group Family & Internal Medicine [address] [phone] Sami Liriano DO [address] [place] [address] [phone] Cough (Cough, fatigue and headache. The symptoms [...] file Legal Sex Female 12:43 PM MEDICAL TECHNOLOGIST CLINICAL Gender Identity Female 12/18/2021 6:31 AM CDT [...] 2 diabetes mellitus ([facility]/HCC) ([facility]) Arthritis of left knee GERD (gastroesophageal reflux disease) Overactive bladder Depression Pharyngoesophageal dysphagia Positive colorectal cancer screening using Cologuard test ALLYSON positive Stage 3a chronic kidney disease ([facility]) Severe obstructive sleep apnea Hyperlipidemia associated with type 2 diabetes mellitus ([facility]/HCC) ([facility]) BMI 45.0-49.9, adult ([facility]) Current mild episode of major depressive disorder without prior episode ([facility]) Generalized osteoarthritis of multiple sites Inflammatory arthritis Urinary tract infection Morbid (severe) obesity due to excess calories ([facility]) Past Medical History: Diagnosis Date Arthritis Arthritis of left knee 11/08/2019 Depression GERD (gastroesophageal reflux disease) Hypertension Overactive bladder Past Surgical History: Procedure Laterality Date ANKLE SURGERY left SECTION COLONOSCOPY N/A 04/27/2020 COLONOSCOPY WITH BIOPSY X 3 performed by Joel Keenan MD at [facility] OR EGD HERNIA REPAIR SHOULDER SURG [...] level: Not on file 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 Tobacco Use Smoking status: Former [...] orders for this visit: Mucopurulent chronic bronchitis ([facility]/HCC) ([facility]) - Complete PFT (pre/post [place], Lung Vol, Diff Capacity) (50667, 20588, 43557, 52723); Future - CT CHEST WO CON; Future [...] Contact Info) Description 10/09/2024 9:30 AM MEDICAL TECHNOLOGIST CLINICAL Office Visit [facility]-[address] [phone] Carlos Farris MD Three [facility] [address] [place] [address] 11/02/2024 10:20 AM MEDICAL TECHNOLOGIST CLINICAL Office Visit [facility] Group Family & Internal Medicine - [address] [phone] Sami Liriano DO [address] [place] [address] documented as of this encounter Procedures Procedure Name Priority Date/Time Associated Diagnosis Comments CORONAVIRUS (COVID 19) PCR Routine 07/24/2023 1:54 PM CDT Acute cough CORONAVIRUS (COVID-19) INFLUENZA A & B ANTIGEN IA PANEL Routine 07/24/2023 Acute cough documented in this encounter Results * CORONAVIRUS (COVID 19) PCR (07/24/2023 1:54 PM CDT) SPEC DESCRIPTION NASAL 07/24/20 1:54 PM CDT [facility] ([facility] CORONAVIRUS SARS COV 2 PCR (RESP) NEGATIVE NEGATIVE 07/25/2023 4:22 PM CDT [facility] Comment: THE SARS-CoV-2 TEST HAS BEEN AUTHORIZED BY THE FDA UNDER AN EUA FOR USE BY AUTHORIZED LABORATORIES. PERFORMED BY NUCLEIC ACID AMPLIFICATION PCR NASOPHARYNGEAL SWAB / Unknown 07/24/2023 1:54 PM CDT us Sami Liriano DO MICROBIOLOGY - GENERAL O RDERABLES Final Result Performing Organization Address City/[facility]/ZIP Co de Phone Number [facility] [address] [facility] [place] [address], * (ABNORMAL) CORONAVIRUS (COVID-19) INFLUENZA A & B ANTIGEN IA PANEL (07/24/2023) CORONAVIRUS ANTIGEN IA NEGATIVE NEGATIVE [facility] INFLUENZA A NEGATIVE NEGATIVE [facility] INFLUENZA B NEGATIVE NEGATIVE [facility] Internal Control: VALID(A) VALID [facility] NASAL STRUCTURE / Unknown 07/24/2023 us Sami Liriano DO MICROBIOLOGY - GENERAL O RDERABLES Final Result Performing Organization Address [facility] Co de Phone Number [facility] [address] [place] [address], documented in this encounter Visit Diagnoses Diagnosis Mucopurulent chronic bronchitis ([facility])- Primary Mucopurulent chronic bronchitis Acute cough documented in this encounter Additional Health Concerns Infection Onset Date Last Indicated Resolved Time COVID-19 Rule Out 07/24/2023 07/24/2023 07/24/2023 11:49 AM CDT COVID-19 Rule Out 07/24/2023 07/24/2023 07/25/2023 4:22 PM CDT Assessment Noted Time PHQ-9 Depression Total Score: 0 10/11/19 10:50 AM MEDICAL TECHNOLOGIST CLINICAL documented as of this encounter Care Teams Director Independent Relationship Specialty Start Date End Date Sami Liriano DO [address] [place] [address] PCP - General FAMILY PRACTICE 12/24/19 documented as of this encounter
--- OUTSIDE RECORDS SUMMARY | 2024-09-19 19:39 | XMS_ITS | Encounter Summary ---
Author Organization [facility] Address [address] [facility]. [place], [place] [address] [place] [address] Care Team Providers Care Newsroom Intern Name Role Phone Sami Liriano DO Primary [...] Description 04/19/2023 11:00 AM CDT Office Visit [facility] Family & Internal Medicine - [place] [address] [place] [address] Sami Liriano DO [address] [place] [address] Respiratory Symptoms (The patient states she has [...] on file Legal Sex Female 12:43 PM IP COUNSEL Gender Identity Female 12/18/2021 6:31 AM CDT [...] Hypertension associated with type 2 diabetes mellitus ([facility]) Arthritis of left knee GERD (gastroesophageal reflux disease) Overactive bladder Depression Pharyngoesophageal dysphagia Positive colorectal cancer screening using Cologuard test ALLYSON positive Stage 3a chronic kidney disease ([facility]) Severe obstructive sleep apnea Hyperlipidemia associated with type 2 diabetes mellitus ([facility]) BMI 45.0-49.9, adult ([facility]) Current mild episode of major depressive disorder without prior episode ([facility]) Generalized osteoarthritis of multiple sites Inflammatory arthritis Urinary tract infection Morbid (severe) obesity due to excess calories ([facility]) Past Medical History: Diagnosis Date Arthritis Arthritis of left knee 11/08/2019 Depression GERD (gastroesophageal reflux disease) Hypertension Overactive bladder Past Surgical History: Procedure Laterality Date ANKLE SURGERY left SECTION COLONOSCOPY N/A 04/27/2020 COLONOSCOPY WITH BIOPSY X 3 performed by Joel Keenan MD at [facility] OR EGD HERNIA REPAIR SHOULDER SURG [...] on file 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 Continue albuterol and other qppc-yzn-nnexzzm medications that she is already taking. Will order CPAP today; patient has MOR already noted on previous sleep study and is willing to use CPAP at this time. Follow-up with regularly scheduled appointment next week. Patient verbalized understanding. Sami Liriano DO documented in this encounter Plan of Treatment Upcoming Encounters Date Type Department Care Team (Late st Contact Info) Description 10/09/2024 9:30 AM IP COUNSEL Office Visit [facility]-[address] [phone] Carlos Farris MD Three [facility] [address] [place] [address] 11/02/2024 10:20 AM IP COUNSEL Office Visit [facility] Medical Group Family & Internal Medicine - [address] [phone] Sami Liriano DO [address] [place] [address] documented as of this encounter Visit Diagnoses Diagnosis Bronchitis- Primary Bronchitis, not specified as acute or chronic MOR (obstructive sleep apnea) Obstructive sleep apnea (adult) (pediatric) documented in this encounter Additional Health Concerns Assessment Noted Time PHQ-9 Depression Total Score: 0 10/11/19 10:50 AM IP COUNSEL documented as of this encounter Care Teams Newsroom Intern Relationship Specialty Start Date End Date Sami Liriano DO [address] [place] [address] PCP - General FAMILY PRACTICE 12/24/19 documented as of this encounter
--- OUTSIDE RECORDS SUMMARY | 2024-09-19 19:39 | XMS_ITS | Encounter Summary ---
Author Organization [facility] Address [facility]6 [facility]. [place], [place] [address] [place] [address] Care Team Providers Care Programmer Or Analyst Name Role Phone Sami Liriano Primary [...] on file Legal Sex Female 12:43 PM HISTOLOGY TEACHER Gender Identity Female 12/18/2021 6:31 AM [...] st Contact Info) Description 10/09/2024 9:30 AM HISTOLOGY TEACHER Office Visit [facility]-[address] [phone] Carlos Farris MD Three [facility] [address] [place] [address] 11/02/2024 10:20 AM HISTOLOGY TEACHER Office Visit [facility] Medical Group Family & Internal Medicine - [address] [phone] Sami Liriano DO [address] [place] [address] documented as of this encounter Visit Diagnoses Not on filedocumented in this encounter Additional Health Concerns Assessment Noted Time PHQ-9 Depression Total Score: 0 10/11/19 22 10:50 AM HISTOLOGY TEACHER documented as of this encounter Care Teams Programmer Or Analyst Relationship Specialty Start Date End Date Sami Liriano DO [address] [place] [address] PCP - General FAMILY PRACTICE 12/24/19 documented as of this encounter
--- OUTSIDE RECORDS SUMMARY | 2024-09-19 19:39 | XMS_ITS | Encounter Summary ---
Author Organization [facility] Address [address] [place] [address]. [place], [place] [address] [place] [address] Care Team Providers Care Fiberglass Ski Maker Name Role Phone Sami Liriano DO Primary Care Provider + Encounter Details Date Type Department Care Team (Latest Contact Info) Description 07/24/2023 - 07/24/2023 11:59 PM CDT Hospital Encounter [facility] [address] [place] [address] Sami Liriano DO [address] [place] [address] Discharge Disposition: Home or Self [...] on file Legal Sex Female 12:43 PM HARP REGULATOR Gender Identity Female 12/18/2021 6:31 AM CDT Sexual Orientation Straight 01/15/2022 6: 11 AM CDT 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 Not on file Not [...] complication, without long-term current use of insulin ([facility] HHS/HCC) Check blood sugar once daily in [...] of major depressive disorder without prior episode ([facility]/HCC) TAKE 1 TABLET BY MOUTH EVERY DAY 90 tablet 1 02/11/2023 3 Glucose Blood test stripIndications:Typ e 2 diabetes mellitus without complication, without long-term current use of insulin ([facility]/HCC HHS/HCC) Check blood sugar once daily in AM when fasting 100 strip 11 08/07/2021 4 hydroCHLOROthiazide (HYDRODIURIL) 25 MG tabletIndications:Hy pertension associated with type 2 diabetes mellitus (CMS/HCC HHS/HCC) TAKE 1 TABLET BY MOUTH EVERY DAY IN THE MORNING 90 tablet 02/11/2023 4 Lancets (ONETOUCH ULTRASOFT) lancetsIndications:T ype 2 diabetes mellitus without complication, without long-term current use of insulin ([facility]) Check blood sugar once daily in AM when fasting 1 each 11 08/07/2021 4 lisinopril (PRINIVIL) 40 MG tabletIndications:Es sential hypertension TAKE ONE TABLET BY MOUTH DAILY AT 9AM 180 tablet 1 06/01/2022 4 metFORMIN ER (GLUCOPHAGE-XR) 500 MG 24 hr tabletIndications:Ty pe 2 diabetes mellitus without complication, without long-term current use of insulin ([facility]) TAKE 1 TABLET BY MOUTH EVERY [...] (DELTASONE) 20 MG tabletIndications:Mu copurulent chronic bronchitis ([facility]) Take 3 tablets for three days, then [...] st Contact Info) Description 10/09/2024 9:30 AM HARP REGULATOR Office Visit [facility] [address] Carlos Farris MD Three [facility] [address] [place] [address] 11/02/2024 10:20 AM HARP REGULATOR Office Visit [facility] Family & Internal Medicine - [place] [address] [place] [address] Sami Liriano DO [address] [place] [address] documented as of this encounter Visit Diagnoses Not on filedocumented in this encounter Additional Health Concerns Infection Onset Date Last Indicated Resolved Time COVID-19 Rule Out 07/24/2023 07/24/2023 07/24/2023 11:49 AM CDT COVID-19 Rule Out 07/24/2023 07/24/2023 07/25/2023 4:22 PM CDT Assessment Noted Time PHQ-9 Depression Total Score: 0 10/11/19 10:50 AM HARP REGULATOR documented as of this encounter Care Teams Fiberglass Ski Maker Relationship Specialty Start Date End Date Sami Liriano DO [address] [place] [address] PCP - General FAMILY PRACTICE 12/24/19 documented as of this encounter
--- OUTSIDE RECORDS SUMMARY | 2024-09-19 19:39 | XMS_ITS | Encounter Summary ---
Author Organization [facility] Address [address] [place] [address]. [place], [place] [address] [place] [address] Care Team Providers Care Electrical Timing Device Calibrator Name Role Phone Sami Liriano Primary Care Provider + Reason for Visit * Reason Comments Vomiting For 4 days Fatigue 2 negative home covi d tests Encounter Details Date Type Department Care Team (Late st Contact Info) Description 02/04/2023 9:20 AM CDT Telemedicine [facility] Family & Internal Medicine [place] [place] [address] Barb Sexton APNP [facility] [place], [place] [phone] Vomiting (For 4 days ); Fatigue (2 [...] on file Legal Sex Female 12:43 PM COMPREHENSIVE ADVISOR Gender Identity Female 12/18/2021 6:31 AM [...] from the original note were not included. [facility] FAMILY AND INTERNAL MEDICINE OFFICE VISIT I introduced and identified myself, received verbal consent from the patient to proceed with this video visit and made the patient aware that the same confidentiality and information officer practices apply. The patient joined the video visit from Home. I completed the virtual visit from Home. 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 Tobacco Use Smoking status: Former Packs/day: 1.00 [...] st Contact Info) Description 10/09/2024 9:30 AM COMPREHENSIVE ADVISOR Office Visit [facility] [address] Carlos Farris MD [facility] [address] [place] [address] 11/02/2024 10:20 AM COMPREHENSIVE ADVISOR Office Visit [facility] Family & Internal Medicine - [address] [address] Sami Liriano DO [address] [place] [address] documented as of this encounter Visit Diagnoses Diagnosis Acute cough- Primary Viral gastroenteritis Intestinal infection due to other organism, not elsewhere classified documented in this encounter Additional Health Concerns Assessment Noted Time PHQ-9 Depression Total Score: 0 10/11/19 22 10:50 AM COMPREHENSIVE ADVISOR documented as of this encounter Care Teams Electrical Timing Device Calibrator Relationship Specialty Start Date End Date Sami Liriano DO [address] [place] [address] PCP - General FAMILY PRACTICE 12/24/19 documented as of this encounter
--- OUTSIDE RECORDS SUMMARY | 2024-09-19 19:39 | XMS_ITS | Encounter Summary ---
Author Organization [facility] Address [address] [place] [address]. 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 Not on file Not on franck e documented as of this encounter Plan of Treatment Upcoming Encounters Date Type Department Care Team (Late Contact Info) Description 10/09/2024 9:30 AM PAYER SPECIALIST Office Visit [facility] [place] [address] Carlos Farris MD Three [facility] [address] [place] [address] 11/02/2024 10:20 AM PAYER SPECIALIST Office Visit [facility] Family & Internal Medicine - [address] [address] Sami Liriano DO [address] [place] [address] documented as of this encounter Visit Diagnoses Not on filedocumented in this encounter Additional Health Concerns Assessment Noted Time PHQ-9 Depression Total Score: 0 10/11/19 22 10:50 AM PAYER SPECIALIST documented as of this encounter Care Teams Jailer Relationship Specialty Start Date End Date Sami Liriano DO [address] [place] [address] PCP - General FAMILY PRACTICE 12/24/19 documented as of this encounter
--- OUTSIDE RECORDS SUMMARY | 2024-09-19 19:39 | XMS_ITS | Encounter Summary ---
Author Organization [facility] Address [facility]. 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 [address] [place] [address] 11/02/2024 10:20 AM APPLICATIONS PROGRAMMER Office Visit [facility] Family & Internal Medicine - [address] [address] Sami Liriano DO [address] [place] [address] documented as of this encounter Visit Diagnoses Not on filedocumented in this encounter Additional Health Concerns Assessment Noted Time PHQ-9 Depression Total Score: 0 10/11/19 22 10:50 AM APPLICATIONS PROGRAMMER documented as of this encounter Care Teams Power Transformer Repairer Relationship Specialty Start Date End Date Sami Liriano DO [address] [place] [address] PCP - General FAMILY PRACTICE 12/24/19 documented as of this encounter
--- OUTSIDE RECORDS SUMMARY | 2024-09-19 19:40 | XMS_ITS | Encounter Summary ---
Author Organization [facility] Address [address] [facility]. [place], [place] [address] [place] [address] Care Team Providers Care Interactive Graphic Designer Name Role Phone Sami Liriano [...] Info) Description 06/27/2022 12:20 PM CDT Telemedicine [facility] Family & Internal Medicine - [address] [phone] Koki Wilson FNP [address] [place] [address] [id number] URI (Possible sinus infection x2 days. Patient [...] on file Legal Sex Female 12:43 PM RESORT MANAGER Gender Identity Female 12/18/2021 6:31 AM [...] as we discussed. Continue to use your [id number] medication as needed for symptom relief Increase [...] aware that the same confidentiality and information technology project manager practices apply. The patient joined the video visit from Home. I completed the virtual visit from Home. [facility] staff helped with this [...] 3 performed by Joel Keenan MD at [facility] OR ??? EGD ??? HERNIA REPAIR ??? SHOULDER SURG PROC UNLISTED right ??? TONSILLECTOMY ??? TOTAL KNEE ARTHROPLASTY right Social History: Social History Socioeconomic History ??? Marital status: ??? Number of children: 2 Occupational History ??? 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 Smoking status: Former Smoker [...] ear normal. Nose: Nose normal. Mouth/Throat: Lips: Orchid. Mouth: Mucous membranes are moist. Eyes: General: [...] Control: VALID VALID CORONAVIRUS (COVID 19) PCR ([facility]) Collection Time: 06/27/22 2:34 PM Specimen: NASOPHARYNGEAL SWAB Result Value Ref Range Spec. Description NASAL CORONAVIRUS SARS COV 2 PCR (RESP) NEGATIVE NEGATIVE FIRST TEST NO EMPLOYED IN HEALTHCARE NO SYMPTOMATIC DEFINED BY CDC YES DATE OF SYMPTOM ONSET 20220625 HOSPITALIZATION STATUS NO PATIENT IN ICU NO RESIDENT OF [facility] NO There were no vitals filed for [...] IA PANEL - CORONAVIRUS (COVID 19) PCR ([facility]); Future 2. Sinus congestion - CORONAVIRUS (COVID-19) [...] st Contact Info) Description 10/09/2024 9:30 AM RESORT MANAGER Office Visit [facility] [address] Carlos Farris MD Three [facility] [address] [place] [address] 11/02/2024 10:20 AM RESORT MANAGER Office Visit [facility] Group Family & Internal Medicine - [address] [phone] Sami Liriano DO [address] [place] [address] documented as of this encounter Procedures Procedure [...] encounter Results * CORONAVIRUS (COVID 19) PCR ([facility]) (06/27/2022 2:34 PM CDT) SPEC DESCRIPTION NASAL 06/27/20 2:34 PM CDT [facility] CORONAVIRUS SARS COV 2 PCR (RESP) NEGATIVE NEGATIVE 06/28/2022 3:41 PM CDT [facility] Comment: THE SARS-CoV-2 TEST HAS BEEN AUTHORIZED BY THE FDA UNDER AN EUA FOR USE BY AUTHORIZED LABORATORIES. PERFORMED BY NUCLEIC ACID AMPLIFICATION PCR FIRST TEST NO 06/27/2022 2:34 PM CDT [facility] EMPLOYED IN HEALTHCARE NO 06/27/2022 2:34 PM CDT [facility] SYMPTOMATIC DEFINED BY CDC YES 06/27/2022 2:34 PM CDT [facility] DATE OF SYMPTOM ONSET 2022062506/27/2022 2:34 PM CDT [facility] HOSPITALIZATION STATUS NO 06/27/2022 2:34 PM CDT [facility] PATIENT IN ICU NO 06/27/2022 2:34 PM CDT [facility] RESIDENT OF [facility] NO 06/27/2022 2:34 PM CDT [facility] NASOPHARYNGEAL SWAB / Unknown 06/27/2022 2:34 PM CDT Koki Wilson [facility] MICROBIOLOGY - GENERAL ORDERAB LES Final Result [facility] [address] [place] [address], * CORONAVIRUS (COVID-19) INFLUENZA A & B ANTIGEN IA PANEL (06/27/2022) CORONAVIRUS ANTIGEN IA NEGATIVE NEGATIVE [facility] INFLUENZA A NEGATIVE NEGATIVE [facility] INFLUENZA B NEGATIVE NEGATIVE [facility] Internal Control: VALID VALID [facility] NASAL STRUCTURE / Unknown 06/27/2022 K[facility] MICROBIOLOGY - GENERAL ORDERAB LES Final Result Performing Organization Address City/Special Care Hospital/ZIP Co de Phone Number [facility] [address] [place] [address], [place] documented in this encounter Visit Diagnoses Diagnosis Sinus headache- Primary Headache Sinus congestion Other diseases of nasal cavity and sinuses COVID-19 vaccine series not completed Acute cough documented in this encounter Additional Health Concerns Infection Onset Date Last Indicated Resolved Time COVID-19 Rule Out 06/27/2022 06/27/2022 06/27/2022 2:35 PM CDT Assessment Noted Time PHQ-9 Depression Total Score: 0 10/11/19 22 10:50 AM RESORT MANAGER documented as of this encounter Care Teams Interactive Graphic Designer Relationship Specialty Start Date End Date Sami Liriano DO [address] [place] [address] PCP - General FAMILY PRACTICE 12/24/19 documented as of this encounter
--- OUTSIDE RECORDS SUMMARY | 2024-09-19 19:40 | XMS_ITS | Encounter Summary ---
Author Organization [facility] Address [address] [place] [address]. [place], [place] [address] [place] [address] Care Team Providers Care Spent Grain Dryer Name Role Phone Sami Liriano DO Primary Care Provider + Reason for Visit * Reason Onset Date Comments Strep Throat 10/26/2022 Encounter Details Date Type Department Care Team (Late st Contact Info) Description 10/26/2022 Telephone [facility] Family & Internal Medicine [facility] [address] [place] [address] Sami Liriano DO [facility] [place] [address] Strep Throat Social History Tobacco [...] on file Legal Sex Female 12:43 PM LINING STRAP CLOSER Gender Identity Female 12/18/2021 6:31 AM CDT [...] further needs voiced at this time. LL-11/01/22 NG STRAP CLOSER * Deb Varela RN - 10/29/2022 3:01 PM CST Patient stated that she is starting to feel better. Patient will call back to the office if anything changes. Opportunity given for all questions to be answered, no further needs voiced at this time. LL-10/29/22 NG STRAP CLOSER * Sami Liriano DO - 10/26/2022 9:56 AM CST Give it more time; that is an appropriate medication. NG STRAP CLOSER * Maria Del Rosario Bianchi - 10/26/2022 9:25 AM CST Patient went to [facility] on Saturday and is diagnosed with Strep. They prescribed her cephalexin. Patient states that she is not getting any better. She has no voice, he can not eat or drink. Does pt need to give the medication a few more days to start working or what is your recommendation. NG STRAP CLOSER documented in this encounter Plan of Treatment Upcoming Encounters Date Type Department Care Team (Late st Contact Info) Description 10/09/2024 9:30 AM LINING STRAP CLOSER Office Visit [facility] [address] Carlos Farris MD Three [facility] [address] [place] [address] 11/02/2024 10:20 AM LINING STRAP CLOSER Office Visit [facility] Family & Internal Medicine - [address] [address] Sami Liriano DO [address] [place] [address] documented as of this encounter Visit Diagnoses Not on filedocumented in this encounter Additional Health Concerns Assessment Noted Time PHQ-9 Depression Total Score: 0 10/11/19 22 10:50 AM LINING STRAP CLOSER documented as of this encounter Care Teams Spent Grain Dryer Relationship Specialty Start Date End Date Sami Liriano DO [address] [place] [address] PCP - General FAMILY PRACTICE 12/24/19 documented as of this encounter
--- OUTSIDE RECORDS SUMMARY | 2024-09-19 19:40 | XMS_ITS | Encounter Summary ---
Author Organization [facility] Address [address] [place] [address]. [place], [place] [address] [place] [address] Care Team Providers Care Concession Attendant Name Role Phone Sami Liriano DO Primary Care Provider + Reason for Visit * Reason Onset Date Comments Lab Order 12/14/2021 Encounter Details Date Type Department Care Team (Late st Contact Info) Description 12/14/[address] 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 No / Unsure 12/22/2021 10:02 AM CDT documented as of this encounter Progress Notes * Poppy Alas - 12/14/2021 3:42 PM CDT [facility] calling about a missing order They need 3 pour off vials of plasma from [employer] with each vial having 1ML of plasma in it and then it needs frozen; it needs spun twice in beginning to make the plasma as clean as possible [facility] [phone] you will want to call and talk it through not sure if I got all the steps documented in this encounter Plan of Treatment Upcoming Encounters Date Type Department Care Team (Late st Contact Info) Description 10/09/2024 9:30 AM CONVEYOR MECHANIC Office Visit [facility] [address] Carlos Farris MD [address] [facility] [address] [place] [address] 11/02/2024 10:20 AM CONVEYOR MECHANIC Office Visit [facility] Family & Internal Medicine - [address] [phone] [place] [address] [place] [address] documented as of this encounter Visit Diagnoses Not on filedocumented in this encounter Additional Health Concerns Assessment Noted Time PHQ-9 Depression Total Score: 0 10/11/19 22 10:50 AM CONVEYOR MECHANIC documented as of this encounter Care Teams Concession Attendant Relationship Specialty Start Date End Date Sami Liriano DO [address] [place] [address] PCP - General FAMILY PRACTICE 12/24/19 documented as of this encounter
--- OUTSIDE RECORDS SUMMARY | 2024-09-19 19:40 | XMS_ITS | Encounter Summary ---
Author Organization [facility] Address [address] [place] [address]. [place], [place] [address] [place] [address] Care Team Providers Care Mailing Machine Operator Name Role Phone Sami Liriano DO Primary Care Provider + Reason for Visit * Reason Onset Date Comments Referral 10/22/2022 Encounter Details Date Type Department Care Team (Late st Contact Info) Description 10/22/2022 Telephone [facility] Family & Internal Medicine [place] [id number] [place] [address] Sami Liriano DO [facility] [place] [address] Referral Social History Tobacco Use [...] on file Legal Sex Female 12:43 PM PROVIDER RELATIONS SPECIALIST Gender Identity Female 12/18/2021 6:31 AM CDT Sexual Orientation Straight 01/15/2022 6: 11 AM CDT 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 IDER RELATIONS SPECIALIST * Sami Liriano DO - 10/22/2022 11:45 AM CST None of them do that, so if pt needs somewhere near our office then can do [facility]. Pt should get her CD with the images from us if she does this so that way she can bring the CD with her to the consultation. . IDER RELATIONS SPECIALIST * Radha Oglesby MA - 10/22/2022 10:38 AM CST Patient is asking for a orthopedic referral for left knee pain. Patient states it has been bone on bone for years and she fell over the holidays and has increased pain since then. If [facility] has an ortho that comes to the [place] office she would like that please, Cb#[phone] IDER RELATIONS SPECIALIST documented in this encounter Plan of Treatment Upcoming Encounters Date Type Department Care Team (Late st Contact Info) Description 10/09/2024 9:30 AM PROVIDER RELATIONS SPECIALIST Office Visit [facility] [address] Carlos Farris MD Three [facility] [address] [facility] [place] [address] 11/02/2024 10:20 AM PROVIDER RELATIONS SPECIALIST Office Visit [facility] Family & Internal Medicine - [place] [address] [place] [phone] Sami Liriano DO [address] [place] [address] documented as of this encounter Visit Diagnoses Not on filedocumented in this encounter Additional Health Concerns Assessment Noted Time PHQ-9 Depression Total Score: 0 10/11/19 22 10:50 AM PROVIDER RELATIONS SPECIALIST documented as of this encounter Care Teams Mailing Machine Operator Relationship Specialty Start Date End Date Sami Liriano DO [address] [place] [address] PCP - General FAMILY PRACTICE 12/24/19 documented as of this encounter
--- OUTSIDE RECORDS SUMMARY | 2024-09-19 19:40 | XMS_ITS | Encounter Summary ---
Author Organization [facility] Address [address] [place] [address]. [place], [place] [address] [place] [address] Care Team Providers Care Grade And Center Marker Name Role Phone Sami Liriano DO Primary Care Provider + Reason for Referral * Consultation (Routine) - Closed Specialty Diagnoses / Procedures Referred By Contac t Referred To Contact SLEEP & RESPIRATORY CARE Diagnoses Shortness of breath Procedures OFFICE/OUTPT VISIT,NEW,LEVL III OFFICE/OUTPT VISIT,NEW,LEVL IV OFFICE/OUTPT VISIT,NEW,LEVL V OFFICE/OUTPT VISIT,EST,LEVL III OFFICE/OUTPT VISIT,EST,LEVL IV OFFICE/OUTPT VISIT,EST,LEVL V Sami Liriano DO [address] [place] [address] Phone: tel: fax: Sami Pinto MD [address] [place], [place] [address] Phone: tel: fax: Referral ID Status Reason Start Date Expiration Date V isits Requested Visits Authorized [id number] Closed Specialty Services 08/03/2022 09/03/2023 1 1 Scheduling Instructions Pt would like to have a provider in the [place] location. She does not want to go to [place]. NSING REPRESENTATIVE Reason for Visit * Reason Onset Date Comments Referral 08/02/2022 Encounter Details Date Type Department Care Team (Late st Contact Info) Description 08/02/[address] 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 (mentioed that in the notes to the referral team.) BB 08/06/2022 NSING REPRESENTATIVE NSING REPRESENTATIVE NSING REPRESENTATIVE * Melanie Lance MA - 08/03/2022 3:24 PM CDT Referral placed lm 08/03/22 tn * Sami Liriano DO - 08/02/2022 5:22 PM CDT OK to refer. Pt was referred to Dr. Pnito previously for MOR; she can be referred to Dr. Pinto or oneof the other [facility] pulmonologists. * Maria Del Rosario Bianchi - 08/02/2022 1:58 PM CDT Patient called in stating that she we were referring her to a certified surgical tech/first assistant for SOB since having covid in [...] st Contact Info) Description 10/09/2024 9:30 AM LICENSING REPRESENTATIVE Office Visit [facility] [phone] Carlos Farris MD [facility] [address] [place] [address] 11/02/2024 10:20 AM LICENSING REPRESENTATIVE Office Visit [facility] Family & Internal Medicine - [address] [phone] Sami Liriano DO [address] [place] [address] Scheduled Referrals Name Type Priority Associated Diagnoses Orde r Schedule Ambulatory referral to Pulmonology ([facility] [place]) Referral Routine Shortness of breath Ordered: 08/06/2022 documented as of this encounter Visit Diagnoses Diagnosis Shortness of breath- Primary documented in this encounter Additional Health Concerns Assessment Noted Time PHQ-9 Depression Total Score: 0 10/11/19 22 10:50 AM LICENSING REPRESENTATIVE documented as of this encounter Care Teams Grade And Center Marker Relationship Specialty Start Date End Date Sami Liriano DO [address] [place] [address] PCP - General FAMILY PRACTICE 12/24/19 documented as of this encounter
--- OUTSIDE RECORDS SUMMARY | 2024-09-19 19:40 | XMS_ITS | Encounter Summary ---
Author Organization [facility] Address [address] [place] [address]. [place], [place] [address] [place] [address] Care Team Providers Care Supervisor Dairy Sanitation Name Role Phone Sami Gimenez DO Primary Care Provider + Reason for Visit * Reason Onset Date Comments Refill Request 03/27/2022 Encounter Details Date Type Department Care Team (Late st Contact Info) Description 03/27/2022 Telephone [facility] Family & Internal Medicine [facility] [address] [place] [address] Sami Gimenez DO [facility] [place], [place] [phone] Refill Request Social History Tobacco Use Types [...] file Legal Sex Female 12:43 PM BRIDGE ENGINEER Gender Identity Female 12/18/2021 6:31 AM CDT Sexual Orientation Straight 01/15/2022 6: 11 AM CDT 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 Not on file Not on franck e documented as of this encounter Progress Notes * Radha Oglesby MA - 03/27/2022 8:21 AM CDT Refill request received from Pharmacy Last visit with SAMI GIMENEZ in FAMILY PRACTICE was on: 01/17/2022 in [facility] Future Appointments Date Time Provider Department Center 04/19/2022 8:20 AM Sami Gimenez, DO [id number] - [place], [place] - [address] [facility] [address] [facility] - KEVIN Velásquez - [address] [facility] 100 [address] [facility] 100 [place] [address] Current Outpatient Medications: ??? acetaminophen 325 MG [...] Contact Info) Description 10/09/2024 9:30 AM BRIDGE ENGINEER Office Visit [facility]-[address] [phone] Carlos Farris MD [facility] [address] [place] [address] 11/02/2024 10:20 AM BRIDGE ENGINEER Office Visit [facility] Family & Internal Medicine - [address] [phone] Sami Gimenez DO [address] [place] [address] documented as of this encounter Visit Diagnoses Diagnosis Type 2 diabetes mellitus without complication, without long-term current use of insulin ([facility]) documented in this encounter Additional Health Concerns Assessment Noted Time PHQ-9 Depression Total Score: 0 10/11/19 22 10:50 AM BRIDGE ENGINEER documented as of this encounter Care Teams Supervisor Dairy Sanitation Relationship Specialty Start Date End Date Sami Gimenez DO [address] [place] [address] PCP - General FAMILY PRACTICE 12/24/19 documented as of this encounter
--- OUTSIDE RECORDS SUMMARY | 2024-09-19 19:40 | XMS_ITS | Encounter Summary ---
Author Organization [facility] Address [address] [place] [address]. [place], [place] [address] [place] [address] Care Team Providers Care Stage Director Name Role Phone RomeoSami li Nicole AGUIAR Primary Care Provider + Encounter Details Date Type Department Care Team (Latest Contact Info) Description 06/27/2022 - 06/27/2022 11:59 PM CDT Hospital Encounter [facility] [address] [facility] [address] [place] [address] Koki Wilson, QUETA [address] [place] [address] Discharge Disposition: Home or Self [...] file Legal Sex Female 12:43 PM FAMILY PRACTICE MEDICAL DOCTOR Gender Identity Female 12/18/2021 6:31 AM CDT [...] complication, without long-term current use of insulin ([facility]) Check blood sugar once daily in AM when fasting 1 kit 08/07/2021 4 chlorthalidone (HYGROTEN) 25 MG tabletIndications:Es sential hypertension Take 1 tablet (25 mg total) by mouth daily. 90 tablet 1 04/19/2022 3 escitalopram (LEXAPRO) 20 MG tabletIndications:Cu rrent mild episode of major depressive disorder without prior episode ([facility]) Take 1 tablet (20 mg total) by mouth daily. 90 tablet 1 06/01/2022 3 Glucose Blood test stripIndications:Typ e 2 diabetes mellitus without complication, without long-term current use of insulin ([facility]) Check blood sugar once daily in AM when fasting 100 strip 11 08/07/2021 4 Lancets (ONETOUCH ULTRASOFT) lancetsIndications:T ype 2 diabetes mellitus without complication, without long-term current use of insulin ([facility]) Check blood sugar once daily in AM [...] Contact Info) Description 10/09/2024 9:30 AM FAMILY PRACTICE MEDICAL DOCTOR Office Visit [facility]-[address] [phone] Carlos Farris MD [facility] [address] [place] [address] 11/02/2024 10:20 AM FAMILY PRACTICE MEDICAL DOCTOR Office Visit [facility] Family & Internal Medicine - [address] [phone] Sami Liriano DO [address] [place] [address] documented as of this encounter Visit Diagnoses Not on filedocumented in this encounter Additional Health Concerns Infection Onset Date Last Indicated Resolved Time COVID-19 Rule Out 06/27/2022 06/27/2022 06/27/2022 2:35 PM CDT Assessment Noted Time PHQ-9 Depression Total Score: 0 10/11/19 10:50 AM FAMILY PRACTICE MEDICAL DOCTOR documented as of this encounter Care Teams Stage Director Relationship Specialty Start Date End Date Sami Liriano DO [address] [place] [address] PCP - General FAMILY PRACTICE 12/24/19 documented as of this encounter
--- OUTSIDE RECORDS SUMMARY | 2024-09-19 19:40 | XMS_ITS | Encounter Summary ---
Author Organization [facility] Address [facility]. [place], [place] [address] [place] [address] Care Team Providers Care Demonstrator Sales Name Role Phone Sami Liriano Primary Care [...] on file Legal Sex Female 12:43 PM TRANSIT OPERATOR Gender Identity Female 12/18/2021 6:31 AM [...] st Contact Info) Description 10/09/2024 9:30 AM TRANSIT OPERATOR Office Visit [facility]-[address] [phone] Carlos Farris MD [address] [facility] [address] [place] [address] 11/02/2024 10:20 AM TRANSIT OPERATOR Office Visit [facility] Family & Internal Medicine - [address] [phone] Sami Liriano DO [address] [place] [address] documented as of this encounter Visit Diagnoses Not on filedocumented in this encounter Additional Health Concerns Assessment Noted Time PHQ-9 Depression Total Score: 0 10/11/19 10:50 AM TRANSIT OPERATOR documented as of this encounter Care Teams Demonstrator Sales Relationship Specialty Start Date End Date Sami Liriano DO [address] [place] [address] PCP - General FAMILY PRACTICE 12/24/19 documented as of this encounter
--- OUTSIDE RECORDS SUMMARY | 2024-09-19 19:40 | XMS_ITS | Encounter Summary ---
Author Organization [facility] Address [facility]. [place], [place] [address] [place] [address] Care Team Providers Care Insurance Underwriter Name Role Phone Sami Liriano Primary Care [...] on file Legal Sex Female 12:43 PM PMO BUSINESS ANALYST Gender Identity Female 12/18/2021 6:31 AM [...] st Contact Info) Description 10/09/2024 9:30 AM PMO BUSINESS ANALYST Office Visit [facility]-[address] [phone] Carlos Farris MD [address] [facility] [address] [place] [address] 11/02/2024 10:20 AM PMO BUSINESS ANALYST Office Visit [facility] Family & Internal Medicine - [address] [phone] Sami Liriano DO [address] [place] [address] documented as of this encounter Visit Diagnoses Not on filedocumented in this encounter Additional Health Concerns Infection Onset Date Last Indicated Resolved Time COVID-19 Rule Out 06/27/2022 06/27/2022 06/27/2022 2:35 PM CDT Assessment Noted Time PHQ-9 Depression Total Score: 0 10/11/19 22 10:50 AM PMO BUSINESS ANALYST documented as of this encounter Care Teams Insurance Underwriter Relationship Specialty Start Date End Date Sami Liriano DO [address] [place] [address] PCP - General FAMILY PRACTICE 12/24/19 documented as of this encounter
--- OUTSIDE RECORDS SUMMARY | 2024-09-19 19:40 | XMS_ITS | Encounter Summary ---
Author Organization [facility] Address [address] [place] [address]. [place], [place] [address] [place] [address] Care Team Providers Care Database Report Writer Name Role Phone Sami Liriano DO Primary Care Provider + Reason for Visit * Reason Onset Date Comments Results 10/23/2021 Encounter Details Date Type Department Care Team (Late st Contact Info) Description 10/23/2021 Telephone [facility] Family & Internal Medicine [place] [address] [place] [address] Sami Liriano DO [address] [place] [address] Results Social History Tobacco Use Types [...] on file Legal Sex Female 12:43 PM PIG FURNACE OPERATOR Gender Identity Female 12/18/2021 6:31 AM [...] Coronavirus / COVID-19? Yes 10/19/2021 1:15 PM PIG FURNACE OPERATOR documented as of this encounter Progress Notes * Melanie Lance MA - 10/23/2021 11:18 AM CST Patient informed. tn FURNACE OPERATOR * Melanie Lance MA - 10/23/2021 11:12 AM CST LM 10/23/21 tn FURNACE OPERATOR * Sami Liriano DO - 10/23/2021 10:14 AM CST If she doesn't worsen, don't need to repeat for now. Keep appointment and will reassess then. Thesesymptoms may take a while to go away; let us know if they worsen. FURNACE OPERATOR * Melanie Lance MA - 10/23/2021 9:40 AM CST Patient informed of results. She is wondering when she need to repeat this. States she is much better but her cough is still there and she is short of breath at times. She is using her inhaler daily and thinks this may be her new normal. FURNACE OPERATOR * Melanie Lnace MA - 10/23/2021 9:39 AM CST ----- Message from Sami Liriano DO sent at 10/22/2021 6:57 PM PIG FURNACE OPERATOR ----- Chest XR shows significant improvement in COVID pneumonia. Continue current care. FURNACE OPERATOR documented in this encounter Plan of Treatment Upcoming Encounters Date Type Department Care Team (Late st Contact Info) Description 10/09/2024 9:30 AM PIG FURNACE OPERATOR Office Visit [facility]-[address] [phone] Carlos Farris MD [address] [facility] [address] [place] [address] 11/02/2024 10:20 AM PIG FURNACE OPERATOR Office Visit [facility] Family & Internal Medicine - [address] [phone] Sami Liriano DO [address] [place] [address] documented as of this encounter Visit Diagnoses Not on filedocumented in this encounter Additional Health Concerns Infection Onset Date Last Indicated Resolved Time COVID-19 Confirmed 10/11/2021 10/11/2021 12:35 AM PIG FURNACE OPERATOR Assessment Noted Time PHQ-9 Depression Total Score: 0 10/11/19 22 10:50 AM PIG FURNACE OPERATOR documented as of this encounter Care Teams Database Report Writer Relationship Specialty Start Date End Date Sami Liriano DO [address] [place] [address] PCP - General FAMILY PRACTICE 12/24/19 documented as of this encounter
--- OUTSIDE RECORDS SUMMARY | 2024-09-19 19:40 | XMS_ITS | Encounter Summary ---
Author Organization [facility] Address [facility]. [place], [place] [address] [place] [address] Care Team Providers Care Shoulder Boner Name Role Phone Sami Liriano Primary Care Provider + Encounter Details Date Type Department Care Team (Latest Contact Info) Description 12/22/2021 8:40 PM CDT - 12/22/2021 11:59 PM T Hospital Encounter [facility] [address] [place] [address] Chris Bowen MD [address] [place] [address] Discharge Disposition: Home or Self Care (Routine [...] on file Legal Sex Female 12:43 PM CENTRAL OFFICE REPAIRER SUPERVISOR Gender Identity Female 12/18/2021 6:31 AM [...] complication, without long-term current use of insulin ([facility]) Check blood sugar once daily in AM when fasting 1 kit 08/07/2021 4 CHLORTHALIDONE 25 MG tabletIndications: Essential hypertension TAKE 1 TABLET BY MOUTH EVERY DAY 90 tablet 1 09/20/2021 2 ESCITALOPRAM 20 MG tabletIndications: Current mild episode of major depressive disorder without prior episode ([facility]) TAKE 1 TABLET BY MOUTH EVERY DAY 90 tablet 1 09/20/2021 2 FUROSEMIDE 20 MG tabletIndications: Essential hypertension TAKE ONE TABLET BY MOUTH DAILY AT 9AM 60 tablet 12/22/2021 2 Glucose Blood test stripIndications:T ype 2 diabetes mellitus without complication, without long-term current use of insulin ([facility]) Check blood sugar once daily in AM when fasting 100 strip 11 08/07/2021 4 Lancets (ONETOUCH ULTRASOFT) lancetsIndications :Type 2 diabetes mellitus without complication, without long-term current use of insulin ([facility]) Check blood sugar once daily in AM when fasting 1 each 08/07/2021 4 LISINOPRIL 40 MG tabletIndications: Essential hypertension TAKE 1 TABLET BY MOUTH EVERY DAY 90 tablet 1 09/20/2021 2 metFORMIN ER 500 MG 24 hr tabletIndications: Type 2 diabetes mellitus without complication, without long-term current use of insulin ([facility]) Take 1 tablet (500 mg total) by [...] st Contact Info) Description 10/09/2024 9:30 AM CENTRAL OFFICE REPAIRER SUPERVISOR Office Visit [facility]-[address] [phone] Carlos Farris MD [facility] [address] [place] [address] 11/02/2024 10:20 AM CENTRAL OFFICE REPAIRER SUPERVISOR Office Visit [facility] Family & Internal Medicine - [address] [phone] Sami Liriano DO [address] [place] [address] documented as of this encounter Procedures Procedure Name Priority Date/Time Associated Diagnosis Comments HC PROTHROMBIN TIME (PT)-90 Routine 12/22/2021 12:00 PM CDT documented in this encounter Results * LUPUS ANTICOAGULANT (12/22/2021 12:00 PM CDT) CARDIOLIPIN AB IGG <2.0 <20.0 GPL 2021 7:01 AM CDT [facility] ANTONINA LIZARRAGA Comment: U/mL Value ?Interpretation ----- ? < 20.0 ? Antibody not detected > or = 20.0 ?Antibody detected CARDIOLIPIN AB IGM 4.4 <20.0 MPL 2021 7:01 AM CDT [facility] ANTONINA LIZARRAGA Comment: U/mL Value ?Interpretation ----- [...] aging. For additional information, please refer to http://education.Exakis/faq/OYO261 (This link is being provided for informational/ educational purposes only.) Test Performed by Jesse Vidales, [employer] [place], [id number] [place], [place] Grzegorz Gomez M.D., Ph.D., Director of Laboratories , CLIA [id number] CARDIOLIPIN AB IGA 3.6 <20.0 APL 2021 7:01 AM CDT [facility] ANTONINA LIZARRAGA Comment: U/mL Value ?Interpretation ----- ? < 20.0 ? Antibody not detected > or = 20.0 ?Antibody detected LUPUS ANTICOAGULANT REPORT 12/27 8:10 PM CDT [facility] ANTONINA LIZARRAGA Comment: A Lupus Anticoagulant is not detected. Reference Range: ??Not Detected For additional information, please refer to http://Bozuko.Exakis/faq/IIW58d3 (This link is being provided for informational/ educational purposes only.) This interpretation is based on the following test results. PTT (LUPUS ANTICOAGULANT) 38 <=40 sec 12/27/2021 8:10 PM CDT [facility] ANTONINA LLSacha HEXAGONAL PHASE CONF REPORT 11/30 8:10 PM CDT [facility] ANTONINA LIZARRAGA Comment: Not indicated ADDITIONAL TESTING REPORT 2021 8:10 PM CDT [facility] ANTONINA LIZARRAGA Comment: Not indicated Test Performed by YekraJesse [employer] [place], [id number] [place], [place] Grzegorz Gomez M.D., Ph.D., Director of Laboratories , CLIA [id number] DRVVT SCREEN 33 <=45 sec 12/27/2021 8:10 PM CDT [facility] ANTONINA LIZARRAGA DRVVT REPORT 12/27/2021 8:10 PM CDT [facility] ANTONINA MERRITTY Comment: Additional testing is not indicated. DRVVT MIX INTERPRETATION REPORT 12/27/2021 8:10 PM CDT [facility] POLO-CHANTI LLY Comment: Not Indicated 12/22/2021 12:0 0 PM CDT Chris Bowen MD LABORATORY Final Result Performing Organization Address City/State/[facility] Co de Phone Number [facility] [address] [place] [address], [place] [phone] documented in this encounter Visit Diagnoses Not on filedocumented in this encounter Additional Health Concerns Assessment Noted Time PHQ-9 Depression Total Score: 0 10/11/19 22 10:50 AM CENTRAL OFFICE REPAIRER SUPERVISOR documented as of this encounter Care Teams Shoulder Boner Relationship Specialty Start Date End Date Sami Liriano DO [address] [place] [address] PCP - General FAMILY PRACTICE 12/24/19 documented as of this encounter
--- OUTSIDE RECORDS SUMMARY | 2024-09-19 19:40 | XMS_ITS | Encounter Summary ---
Author Organization [facility] Address [facility]. 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 file [...] st Contact Info) Description 10/09/2024 9:30 AM PRODUCTION MANUFACTURING WORKER Office Visit [facility]-[address] [phone] Cralos Farris MD [address] [facility] [address] [place] [address] 11/02/2024 10:20 AM PRODUCTION MANUFACTURING WORKER Office Visit [facility] Family & Internal Medicine - [address] [phone] Sami Liriano DO [address] [place] [address] documented as of this encounter Visit Diagnoses Not on filedocumented in this encounter Additional Health Concerns Assessment Noted Time PHQ-9 Depression Total Score: 0 10/11/19 10:50 AM PRODUCTION MANUFACTURING WORKER documented as of this encounter Care Teams Manager Sales Relationship Specialty Start Date End Date Sami Liriano DO [address] [place] [address] PCP - General FAMILY PRACTICE 12/24/19 documented as of this encounter
--- OUTSIDE RECORDS SUMMARY | 2024-09-19 19:40 | XMS_ITS | Encounter Summary ---
Author Organization [facility] Address [address] [place] [address]. [place], [place] [id number] [place] [address] Care Team Providers Care Pump Mechanic Name Role Phone Sami Akins DO Primary Care Provider + Reason for Visit * Reason Onset Date Comments Question 02/15/2022 Encounter Details Date Type Department Care Team (Late st Contact Info) Description 02/15/2022 Telephone [facility] Family & Internal Medicine [phone] [place] [address] Sami Akins DO [facility] [place] [address] Question Social History Tobacco Use [...] on file Legal Sex Female 12:43 PM MANUFACTURERS SERVICE REPRESENTATIVE Gender Identity Female 12/18/2021 6:31 AM CDT Sexual Orientation Straight 01/15/2022 6: 11 AM CDT 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 Not on file Not [...] st Contact Info) Description 10/09/2024 9:30 AM MANUFACTURERS SERVICE REPRESENTATIVE Office Visit [facility] [phone] Carlos Farris MD [facility] [address] [place] [address] 11/02/2024 10:20 AM MANUFACTURERS SERVICE REPRESENTATIVE Office Visit [facility] Family & Internal Medicine - [address] [phone] Sami Akins DO [address] [place] [address] documented as of this encounter Visit Diagnoses Not on filedocumented in this encounter Additional Health Concerns Assessment Noted Time PHQ-9 Depression Total Score: 0 10/11/19 22 10:50 AM MANUFACTURERS SERVICE REPRESENTATIVE documented as of this encounter Care Teams Pump Mechanic Relationship Specialty Start Date End Date Sami Akins DO [address] [place] [address] PCP - General FAMILY PRACTICE 12/24/19 documented as of this encounter
--- OUTSIDE RECORDS SUMMARY | 2024-09-19 19:40 | XMS_ITS | Encounter Summary ---
Author Organization [facility] Address [address] [place] [address]. [place], [place] [address] [place] [address] Care Team Providers Care Graphic Pre Press Trades Worker Name Role Phone Sami Liriano DO Primary Care Provider + Reason for Visit * Reason Comments Diabetes 3 month follow up. Encounter Details Date Type Department Care Team (Late st Contact Info) Description 11/30/2022 10:20 AM MISSION COORDINATOR Office Visit [facility] Family & Internal Medicine [phone] [place] [address] Sami Liriano DO [address] [place] [phone] Diabetes (3 month follow up. 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 Not on file Not on franck e documented as of this encounter Last Filed Vital Signs Vital Sign Reading Time Taken Comments Blood Pressure 160/86 11/30/2022 11:14 AM MISSION COORDINATOR Pulse 71 11/30/2022 9:54 AM MISSION COORDINATOR Temperature 36.5 ??C (97.7 ??F) 11/30/2022 9:54 AM CS T Respiratory Rate 16 11/30/2022 9:54 AM MISSION COORDINATOR Oxygen Saturation 97% 11/30/2022 9:54 AM MISSION COORDINATOR Inhaled Oxygen Concentration - - Weight 111.4 kg (245 lb 9.6 oz) 11/30/2022 9:54 AM MISSION COORDINATOR Height 153.7 cm (5' 0.5 ) 11/30/2022 9:54 AM MISSION COORDINATOR Body Mass Index 47.18 11/30/2022 9:54 AM MISSION COORDINATOR documented in this encounter Patient Instructions * Patient Instructions* Sami Liriano DO - 11/30/2022 10:20 AM MISSION COORDINATOR Hold atorvastatin for one week to see if this helps with your pain. ION COORDINATOR documented in this encounter Progress Notes * Song Hayes MA - 11/30/2022 10:20 AM CSTAddended by: SONG HAYES on: 11/30/2022 01:44 PM Modules accepted: Orders ION COORDINATOR * Sami Liriano DO - 11/30/2022 10:20 [...] She still has not heard back from [facility] on her CPAP. The order was sent [...] 3 performed by Joel Keenan MD at [facility] OR ??? EGD ??? [...] file Occupational History ??? 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 Smoking status: Former [...] every morning. 30 tablet 2 ??? Lancets (bSafeTOUCH ULTRASOFT) lancets Check blood sugar once daily [...] complication, without long-term current use of insulin ([facility]) - A1C (BACK OFFICE) - COLLECT.CAPILLARY (FNGR,HEEL,EAR) - CBC W/DIFF AUTOMATED; Future - LIPID PANEL; Future - TSH W/REFLEX; Future - VITAMIN D, 25 OH; Future - COMPREHENSIVE METABOLIC PANEL; Future - ALBUMIN URINE RANDOM; Future - CK (CPK); Future Hypertension associated with type 2 diabetes mellitus ([facility]) - hydroCHLOROthiazide (HYDRODIURIL) 25 MG tablet; Take 1 tablet (25 mg total) by mouth every morning. Hyperlipidemia associated with type 2 diabetes mellitus ([facility]) Morbid (severe) obesity due to excess calories ([facility]) Current moderate episode of major depressive disorder without prior episode ([facility]) - buPROPion XL (WELLBUTRIN XL) 150 MG 24 hr tablet; Take 1 tablet daily for one week, then take 2 tablets daily Stage 3a chronic kidney disease ([facility]) Chronic pain of left knee MOR (obstructive [...] for reassessment. Pt v/u. Sami Liriano DO ION COORDINATOR documented in this encounter Plan of Treatment Upcoming Encounters Date Type Department Care Team (Late st Contact Info) Description 10/09/2024 9:30 AM MISSION COORDINATOR Office Visit [facility] [phone] Carlos Farris MD [facility] [address] [place] [address] 11/02/2024 10:20 AM MISSION COORDINATOR Office Visit [facility] Family & Internal Medicine - [address] [phone] Sami Liriano DO [address] [place] [address] documented as of this encounter Procedures Procedure Name Priority Date/Time Associated Diagnosis Comments VENIPUNC ARM DRAW Routine 11/30/2022 1:4 4 PM MISSION COORDINATOR Type 2 diabetes mellitus with other circulatory complication, without long-term current use of insulin ([facility]) Screening for lipid disorders Screening for endocrine, metabolic and immunity disorder Vitamin D deficiency TSH W/REFLEX Routine 11/30/2022 1:42 PM MISSION COORDINATOR Type 2 diabetes mellitus with other circulatory complication, without long-term current use of insulin ([facility]) Screening for lipid disorders Screening for endocrine, metabolic and immunity disorder Annual physical exam ALBUMIN URINE RANDOM W/CREATININE Routine 11/30/2022 1:42 PM MISSION COORDINATOR Type 2 diabetes mellitus with other circulatory complication, without long-term current use of insulin ([facility]) Screening for lipid disorders Screening for endocrine, metabolic and immunity disorder Annual physical exam COMPREHENSIVE METABOLIC PANEL Routine 11/30/2022 1:42 PM MISSION COORDINATOR Type 2 diabetes mellitus with other circulatory complication, without long-term current use of insulin ([facility]) Screening for lipid disorders Screening for endocrine, metabolic and immunity disorder Annual physical exam LIPID PANEL Routine 11/30/2022 1:42 PM MISSION COORDINATOR Type 2 diabetes mellitus with other circulatory complication, without long-term current use of insulin ([facility]) Screening for lipid disorders Screening for endocrine, metabolic and immunity disorder Annual physical exam CBC W/DIFF AUTOMATED Routine 11/30/2022 1:42 PM MISSION COORDINATOR Type 2 diabetes mellitus with other circulatory complication, without long-term current use of insulin ([facility]) Screening for lipid disorders Screening for endocrine, metabolic and immunity disorder Annual physical exam VITAMIN D, 25 OH Routine 11/30/2022 1:42 PM MISSION COORDINATOR Type 2 diabetes mellitus with other circulatory complication, without long-term current use of insulin ([facility]) Screening for lipid disorders Screening for endocrine, metabolic and immunity disorder Annual physical exam Vitamin D deficiency CK (CPK) Routine 11/30/2022 1:42 PM MISSION COORDINATOR Type 2 diabetes mellitus with other circulatory complication, without long-term current use of insulin ([facility]) Screening for lipid disorders Screening for endocrine, metabolic and immunity disorder Annual physical exam COLLECT.CAPILLARY (FNGR,HEEL,EAR) Routine 11/30/2022 9:56 AM MISSION COORDINATOR Type 2 diabetes mellitus with other circulatory complication, without long-term current use of insulin ([facility] HHS/HCC) HEMOGLOBIN, GLYCOSYLATED Routine 11/30/2022 Type 2 diabetes mellitus with other circulatory complication, without long-term current use of insulin ([facility] HHS/HCC) documented in this encounter Results * CK (CPK) (11/30/2022 1:42 PM MISSION COORDINATOR) Pathologist [facility] CPK 131 26 - 192 U/L 11/30/2022 8:01 PM MISSION COORDINATOR [facility] 11/30/2022 1:42 PM MISSION COORDINATOR Sami Liriano DO LABORATORY Final Re sult Performing Organization Address [facility] de Phone Number [facility] [address] [place] [address], [place] [phone] * ALBUMIN URINE RANDOM (11/30/2022 1:42 PM MISSION COORDINATOR) [facility] MICROALBUMIN (U) 3.8 <20 MG/L 12/01/19 8:14 PM MISSION COORDINATOR [facility] CREATININE RANDOM (U) 57.0 MG/DL 11/30/2022 8:14 PM MISSION COORDINATOR [facility] MICROALB/CREAT 6.7 <30 MG/G 11/30/2022 8:14 PM MISSION COORDINATOR [facility] URINE SPECIMEN / Unknown 11/30/2022 1:42 PM MISSION COORDINATOR Sami Liriano DO URINE ORDERABLES Final R esult Performing Organization Address [facility]/ZIP Co de Phone Number [facility] [address] [place] [address], [place] [phone] * (ABNORMAL) COMPREHENSIVE METABOLIC PANEL (11/30/2022 1:42 PM MISSION COORDINATOR) Pathologist [facility] SODIUM S/P/B 139 136 - 145 MMOL/L 11/30/2022 8:42 PM [facility] POTASSIUM S/P/B 4.6 3.5 - 5.1 MMOL/L 11/30/2022 8:42 PM [facility] CHLORIDE S/P/B 104 98 - 107 MMOL/L 11/30/2022 8:42 PM [facility] CO2 24.5 21 - 32 MMOL/L 11/30/2022 8:42 PM [facility] GLUCOSE 93 70 - 99 MG/DL 11/30/2022 8:42 PM [facility] BUN 38(H) 7 - 18 MG/DL 11/30/2022 8:42 PM [facility] CREATININE S/P/B 1.24(H) 0.55 - 1.02 MG/DL 11/30/2022 8:42 PM [facility] CALCIUM S/P/B 9.2 8.4 - 10.5 MG/DL 11/30/2022 8:42 PM [facility] BILIRUBIN TOTAL S/P/B 0.8 0.2 - 1.0 MG/DL 11/30/2022 8:42 PM [facility] ALKALINE PHOSPHATASE S/P/B 87 55 - 142 U/L 11/30/2022 8:42 PM [facility] AST 21 15 - 37 U/L 11/30/2022 8:42 PM [facility] ALT 22 14 - 59 U/L 11/30/2022 8:42 PM [facility] TOTAL PROTEIN S/P/B 7.6 6.4 - 8.2 G/DL 11/30/2022 8:42 PM [facility] ALBUMIN S/P/B 4.3 3.4 - 5.0 G/DL 11/30/2022 8:42 PM [facility] ANION GAP 10.5 5 - 15 MMOL/L 11/30/2022 8:42 PM MISSION COORDINATOR [facility] Comment:REFERENCE RANGE NOT ESTABLISHED OSMOLALITY (CALC) 297 MOSM/KG 023 8:42 PM MISSION COORDINATOR [facility] Comment:REFERENCE RANGE NOT ESTABLISHED GFR ESTIMATE 47(L) >90 ML/MIN/1. 73 M2 11/30/2022 8:42 PM MISSION COORDINATOR [facility] GFR NOTES GFR REFERENCE S: 11/30/2022 8:42 PM MISSION COORDINATOR [facility] Comment: THE ESTIMATED GFR IS CALCULATED [...] FAILURE: <15 ml/min/1.73 m2 11/30/2022 1:42 PM MISSION COORDINATOR Sami Liriano DO LABORATORY Final Re sult [facility] [address] [place] [address], * (ABNORMAL) VITAMIN D, 25 OH (11/30/2022 1:42 PM MISSION COORDINATOR) VITAMIN D 25 HYDROXY TOTAL S/P/B 29.1(L) 30 - 100 NG/ML 11/30/2022 8:42 PM MISSION COORDINATOR [facility] Comment: ? DEFICIENT ??<20 ?INSUFFICIENT 20-30 ?SUFFICIENT 30-100 11/30/2022 1:42 PM MISSION COORDINATOR Sami Liriano DO LABORATORY Final Re sult Performing Organization Address [facility]/ZIP Co de Phone Number [facility] [address] [place] [address], [place] [phone] * TSH W/REFLEX (11/30/2022 1:42 PM MISSION COORDINATOR) TSH 2.998 0.358 - 3.740 uIU/ML 11/30/2022 8:42 PM MISSION COORDINATOR [facility] 11/30/2022 1:42 PM MISSION COORDINATOR Sami Liriano LABORATORY Final Re sult Performing Organization Address [facility] Co de Phone Number [facility] [address] [place] [address], [place] [phone] * LIPID PANEL (11/30/2022 1:42 PM MISSION COORDINATOR) CHOLESTEROL 152 <200 MG/DL 11/30/2022 8:42 PM MISSION COORDINATOR [facility] TRIGLYCERIDES 117 <150 MG/DL 11/30/2022 8:42 PM MISSION COORDINATOR [facility] HDL 53 >40 MG/DL 11/30/2022 8:42 PM MISSION COORDINATOR [facility] LDL-C 76 <100 MG/DL 11/30/2022 8:42 PM MISSION COORDINATOR [facility] VLDL CALCULATION 23 5 - 28 MG/DL 11/30/2022 8:42 PM MISSION COORDINATOR [facility] CHOL/HDL RATIO 2.9 0.0 - 4.0 11/30/2022 8:42 PM MISSION COORDINATOR [facility] LDL/HDL 1.4 0.41 - 2.13 11/30/2022 8:42 PM MISSION COORDINATOR [facility] NON HDL CHOLESTEROL 99 <140 MG/DL 11/30/2022 8:42 PM MISSION COORDINATOR [facility] 11/30/2022 1:42 PM MISSION COORDINATOR Sami Liriano DO LABORATORY Final Re sult [facility] [address] [place] [address], * (ABNORMAL) CBC W/DIFF AUTOMATED (11/30/2022 1:42 PM MISSION COORDINATOR) WBC 11.88(H) 4.00 - 10.80 x10'3/uL 11/30/2022 7:37 PM MISSION COORDINATOR [facility] RBC 4.12 4.10 - 5.40 x10'6/uL 11/30/2022 7:37 PM MISSION COORDINATOR [facility] HGB 11.4(L) 12.0 - 16.0 G/DL 11/30/2022 7:37 PM [facility] HCT 36.3 36.0 - 47.0 % 11/30/2022 7:37 PM MISSION COORDINATOR [facility] MCV 88.1 78.0 - 100.0 FL 11/30/2022 7:37 PM MISSION COORDINATOR [facility] MCH 27.7 27.0 - 31.0 PG 11/30/2022 7:37 PM MISSION COORDINATOR [facility] MCHC 31.4(L) 33.0 - 36.0 G/DL 11/30/2022 7:37 PM [facility] RDW 14.0 11.5 - 14.5 % 11/30/2022 7:37 PM MISSION COORDINATOR [facility] PLT 224 150 - 350 x10'3/uL 11/30/2022 7:37 PM [facility] MPV 10.4 7.4 - 10.4 FL 11/30/2022 7:37 PM [facility] DIFFERENTIAL TYPE AUTOMATED DIFFERENTIAL 11/30/2022 7:38 PM [facility] NEUTROPHILS % 61.8 % 11/30/2022 7:38 PM [facility] LYMPHOCYTES % 29.8 % 11/30/2022 7:38 PM [facility] MONOCYTES % 5.9 % 11/30/2022 7:38 PM [facility] EOSINOPHILS % 2.1 % 11/30/2022 7:38 PM [facility] BASOPHILS % 0.3 % 11/30/2022 7:38 PM [facility] IMMATURE GRANS % 0.1 % 11/30/2022 7:38 PM [facility] ABS. NEUTROPHILS 7.34 1.60 - 8.30 x10'3/uL 11/30/2022 7:38 PM [facility] ABS. LYMPHOCYTES 3.54 0.80 - 4.70 x10'3/uL 11/30/2022 7:38 PM [facility] ABS. MONOCYTES 0.70 0.00 - 1.50 x10'3/uL 11/30/2022 7:38 PM [facility] ABS. EOSINOPHILS 0.25 0.00 - 0.40 x10'3/uL 11/30/2022 7:38 PM [facility] ABS. BASOPHILS 0.04 0.00 - 0.20 x10'3/uL 11/30/2022 7:38 PM [facility] ABS. IMMATURE GRANULOCYTES 0.01 0.00 - 0.03 x10'3/uL 11/30/2022 7:38 PM [facility] 11/30/2022 1:42 PM MISSION COORDINATOR us Sami Liriano DO LABORATORY Final Re sult [facility] KAMILA [facility] S[facility] [address] [facility] [place] [address], [place] [phone] * A1C (BACK OFFICE) (11/30/2022) HGB A1C 5.9 % [facility] 11/30/2022 us Sami Liriano DO LABORATORY Final Re sult Performing Organization Address City/[facility]/ZIP Co de Phone Number [facility] [address] [place] [address], documented in this encounter Visit Diagnoses Diagnosis Type 2 diabetes mellitus with other circulatory complication, without long-term current use of insulin ([facility])- Primary Hypertension associated with type 2 diabetes mellitus ([facility]) Hyperlipidemia associated with type 2 diabetes mellitus ([facility]) Morbid (severe) obesity due to excess calories ([facility]) Current moderate episode of major depressive disorder without prior episode ([facility]) Stage 3a chronic kidney disease ([facility]) Chronic pain of left knee Pain in [...] Total Score: 0 10/11/19 22 10:50 AM MISSION COORDINATOR documented as of this encounter Care Teams Graphic Pre Press Trades Worker Relationship Specialty Start Date End Date Sami Liriano DO [address] [place] [address] PCP - General FAMILY PRACTICE 12/24/19 documented as of this encounter
--- OUTSIDE RECORDS SUMMARY | 2024-09-19 19:40 | XMS_ITS | Encounter Summary ---
Author Organization [facility] Address [address] [place] [address]. 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 Not on franck e documented as of this encounter Plan of Treatment Upcoming Encounters Date Type Department Care Team (Late st Contact Info) Description 10/09/2024 9:30 AM MORTGAGE LOAN REVIEWER Office Visit [facility] [phone] Carlos Farris MD [facility] [address] [place] [address] 11/02/2024 10:20 AM MORTGAGE LOAN REVIEWER Office Visit [facility] Family & Internal Medicine - [address] [phone] Sami Liriano DO [address] [place] [address] documented as of this encounter Visit Diagnoses Not on filedocumented in this encounter Additional Health Concerns Assessment Noted Time PHQ-9 Depression Total Score: 0 10/11/19 22 10:50 AM MORTGAGE LOAN REVIEWER documented as of this encounter Care Teams Document Coordinator Relationship Specialty Start Date End Date Sami Liriano DO [address] [place] [address] PCP - General FAMILY PRACTICE 12/24/19 documented as of this encounter
--- OUTSIDE RECORDS SUMMARY | 2024-09-19 19:40 | XMS_ITS | Encounter Summary ---
Author Organization [facility] Address [facility] [place], [place] [phone] [place] [address] Care Team Providers Care Camera Mechanic Name Role Phone Sami Liriano Primary [...] on file Legal Sex Female 12:43 PM PICK PACK WORKER Gender Identity Female 12/18/2021 6:31 AM [...] st Contact Info) Description 10/09/2024 9:30 AM PICK PACK WORKER Office Visit [facility] [phone] Carlos Farris MD [address] [facility] [address] [place] [address] 11/02/2024 10:20 AM PICK PACK WORKER Office Visit [facility] Family & Internal Medicine - [address] [phone] Sami Liriano DO [address] [place] [address] documented as of this encounter Visit Diagnoses Not on filedocumented in this encounter Additional Health Concerns Assessment Noted Time PHQ-9 Depression Total Score: 0 10/11/19 10:50 AM PICK PACK WORKER documented as of this encounter Care Teams Camera Mechanic Relationship Specialty Start Date End Date Sami Liriano DO [address] [place] [address] PCP - General FAMILY PRACTICE 12/24/19 documented as of this encounter
--- OUTSIDE RECORDS SUMMARY | 2024-09-19 19:40 | XMS_ITS | Encounter Summary ---
Author Organization [facility] Address [facility] [facility] 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 Not on file Not [...] st Contact Info) Description 10/09/2024 9:30 AM LION TAMER Office Visit [facility] [phone] Carlos Farris MD [address] [facility] [address] [place] [address] 11/02/2024 10:20 AM LION TAMER Office Visit [facility] Family & Internal Medicine - [address] [phone] Sami Liriano DO [address] [place] [address] documented as of this encounter Visit Diagnoses Not on filedocumented in this encounter Additional Health Concerns Assessment Noted Time PHQ-9 Depression Total Score: 0 10/11/19 10:50 AM LION TAMER documented as of this encounter Care Teams Engineer Automated Equipment Relationship Specialty Start Date End Date Sami Liriano DO [address] [place] [address] PCP - General FAMILY PRACTICE 12/24/19 documented as of this encounter
--- OUTSIDE RECORDS SUMMARY | 2024-09-19 19:40 | XMS_ITS | Encounter Summary ---
Author Organization [facility] Address [address] [place] [address]. [place], [place] [address] [place] [address] Care Team Providers Care Billing Analyst Name Role Phone Sami Liriano DO Primary Care Provider + Reason for Referral * Consultation (Routine) - Closed Specialty Diagnoses / Procedures Referred By Shereen benton Referred To Contact ORTHOPAEDICS Diagnoses Left knee pain Procedures OFFICE/OUTPT VISIT,NEW,LEVL III OFFICE/OUTPT VISIT,NEW,LEVL IV OFFICE/OUTPT VISIT,NEW,LEVL V OFFICE/OUTPT VISIT,EST,LEVL III OFFICE/OUTPT VISIT,EST,LEVL IV OFFICE/OUTPT VISIT,EST,LEVL V Sami Liriano DO [address] [place] [address] Phone: tel: fax: Manuelito Marcelino PA [address] [place] [address] Phone: tel: fax: Referral ID Status Reason Start Date Expiration Date V isits Requested Visits Authorized [id number] Closed Specialty Services 12/14/2022 07/30/2023 6 6 Scheduling Instructions Please send to pili [facility]. Patient would like to stay local. 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 Fax sent over to request ER records. Pt advised to get the disc imaging from [facility] UNLOADER * Brooke Lema MA - 11/12/2022 10:04 AM CST Ortho referral placed for pili per previous task. Patient will need disc of images to take to ortho appt. Also LMOM to see which ER the patient went to to request records. UNLOADER * Shabana Pendleton - 11/12/2022 9:03 AM CST She is asking about the referral that was suppose to be sent to Orthopedics. I do not see one. Please let her know, she went to ER yesterday for her knee. . UNLOADER documented in this encounter Plan of Treatment Upcoming Encounters Date Type Department Care Team (Late st Contact Info) Description 10/09/2024 9:30 AM MOLD UNLOADER Office Visit [facility] [address] Carlos Farris MD Three [facility] [address] [place] [address] 11/02/2024 10:20 AM MOLD UNLOADER Office Visit [facility] Medical Group Family & Internal Medicine - [address] [phone] Sami Liriano DO [address] [place] [address] Scheduled Referrals Name Type Priority Associated Diagnoses Orde r Schedule Ambulatory referral to Orthopedics (OTHER) Referral Routine Left knee pain Ordered: 11/12/2022 documented as of this encounter Visit Diagnoses Diagnosis Left knee pain- Primary Pain in joint, lower leg documented in this encounter Additional Health Concerns Assessment Noted Time PHQ-9 Depression Total Score: 0 10/11/19 22 10:50 AM MOLD UNLOADER documented as of this encounter Care Teams Billing Analyst Relationship Specialty Start Date End Date Sami Liriano DO [address] [place] [address] PCP - General FAMILY PRACTICE 12/24/19 documented as of this encounter
--- OUTSIDE RECORDS SUMMARY | 2024-09-19 19:40 | XMS_ITS | Encounter Summary ---
Author Organization [facility] Address [address] [place] [address]. [place], [place] [address] [place] [address] Care Team Providers Care Supervisor Toy Parts Former Name Role Phone Sami Liriano DO Primary Care Provider + Reason for Visit * Reason Onset Date Comments Results 06/28/2022 Encounter Details Date Type Department Care Team (Late st Contact Info) Description 06/28/2022 Telephone [facility] Medical Group Family & Internal Medicine [place] [place] [address] Sami Liriano DO [address] [place] [address] Results Social History Tobacco Use Types [...] on file Legal Sex Female 12:43 PM SALESPERSON [employer] Gender Identity Female 12/18/2021 6:31 AM CDT [...] st Contact Info) Description 10/09/2024 9:30 AM SALESPERSON [employer] Office Visit [facility]-[address] [phone] Carlos Farris MD [facility] [address] [facility] [place] [address] 11/02/2024 10:20 AM SALESPERSON [employer] Office Visit [facility] Medical Group Family & Internal Medicine - [address] [address] Sami Liriano DO [address] [place] [address] documented as of this encounter Visit Diagnoses Not on filedocumented in this encounter Additional Health Concerns Assessment Noted Time PHQ-9 Depression Total Score: 0 10/11/19 10:50 AM SALESPERSON [employer] documented as of this encounter Care Teams Supervisor Toy Parts Former Relationship Specialty Start Date End Date Sami Liriano DO [address] [place] [address] PCP - General FAMILY PRACTICE 12/24/19 documented as of this encounter
--- OUTSIDE RECORDS SUMMARY | 2024-09-19 19:40 | XMS_ITS | Encounter Summary ---
Author Organization [facility] Address [address] [place] [address]. [place], [place] [address] [place] [address] Care Team Providers Care Tax Record Clerk Name Role Phone Sami Gimenez DO Primary Care Provider + Reason for Visit * Reason Onset Date Comments Refill Request 06/01/2022 Encounter Details Date Type Department Care Team (Late st Contact Info) Description 06/01/2022 Telephone [facility] Medical [facility] Family & Internal Medicine [facility] [address] [place] [address] Sami Gimenez DO [facility] [place] [place], [place] [phone] Refill Request Social History Tobacco Use Types [...] on file Legal Sex Female 12:43 PM DINING ROOM HELPER Gender Identity Female 12/18/2021 6:31 AM [...] in FAMILY PRACTICE was on: 04/19/2022 in [facility] Future Appointments Date Time Provider Department Center 07/24/2022 9:40 AM Sami Gimenez DO [id number] [facility] 09/14/2022 10:20 AM Sami Pinto MD PULSEV [id number] [id number] - [place], [place] - [address] [facility] [address] [facility] - KEVIN Velásquez [address] [facility] 100 [address] [facility] 100 [place] [address] Current Outpatient Medications: ??? acetaminophen 325 MG [...] st Contact Info) Description 10/09/2024 9:30 AM DINING ROOM HELPER Office Visit [facility]-[address] [address] Carlos Farris MD Three [facility] [address] [place] [address] 11/02/2024 10:20 AM DINING ROOM HELPER Office Visit [facility] Medical Group Family & Internal Medicine - [address] [phone] Sami Gimenez DO [address] [place] [address] documented as of this encounter Visit Diagnoses Diagnosis Mixed hyperlipidemia- Primary Current mild episode of major depressive disorder without prior episode (CMS/HCC) Essential hypertension Unspecified essential hypertension Overactive bladder Hypertonicity of bladder documented in this encounter Additional Health Concerns Assessment Noted Time PHQ-9 Depression Total Score: 0 10/11/19 22 10:50 AM DINING ROOM HELPER documented as of this encounter Care Teams Tax Record Clerk Relationship Specialty Start Date End Date Sami Gimenez DO [address] [place] [address] PCP - General FAMILY PRACTICE 12/24/19 documented as of this encounter
--- OUTSIDE RECORDS SUMMARY | 2024-09-19 19:40 | XMS_ITS | Encounter Summary ---
Author Organization [facility] Address [address] [place] [address]. [place], [place] [address] [place] [address] Care Team Providers Care Tug Boat Captain Name Role Phone Sami Liriano DO Primary Care Provider + Reason for Visit * Reason Comments Diabetes Follow up Encounter Details Date Type Department Care Team (Late st Contact Info) Description 04/19/2022 8:20 AM CDT Office Visit [facility] Group Family & Internal Medicine [address] [place] [address] Sami Liriano DO [facility] [place] [address] Diabetes (Follow up ) Social [...] file Legal Sex Female 12:43 PM DIGITAL CONTENT MANAGER Gender Identity Female 12/18/2021 6:31 AM [...] Liriano DO - 04/19/2022 8:20 AM CDT [facility] [phone] documented in this encounter Progress Notes * [...] by Joel Keenan MD at [facility] OR ??? EGD ??? HERNIA [...] Not on file Occupational History ??? 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 Smoking status: [...] mouth nightly. ??? Blood Glucose Monitoring Suppl ([employer] ULTRA 2) w/Device Kit Check blood sugar [...] disease, without long-term current use of insulin ([facility]) - A1C (BACK OFFICE) - COLLECT.CAPILLARY (FNGR,HEEL,EAR) [...] Contact Info) Description 10/09/2024 9:30 AM DIGITAL CONTENT MANAGER Office Visit [facility]-[address] [phone] Carlos Farris MD [address] [facility] [address] [place] [address] 11/02/2024 10:20 AM DIGITAL CONTENT MANAGER Office Visit [facility] Medical Group Family & Internal Medicine - [address] [phone] Sami Liriano DO [address] [place] [address] documented as of this encounter Procedures Procedure [...] this encounter Results * HEPATITIS C AB ([facility] ONLY) (04/19/2022 9:39 AM CDT) HEPATITIS C AB NON-REACTI VE NON-REACT CHELE 04/19/2022 6:57 PM CDT [facility] Comment: ANTIBODIES TO HCV NOT DETECTED. DOES NOT EXCLUDE THE POSSIBILITY OF EXPOSURE TO HCV. 04/19/2022 9:39 AM CDT Sami Liriano DO LABORATORY Final Re sult [facility] [address] [place] [address], [phone] * (ABNORMAL) COMPREHENSIVE METABOLIC PANEL (04/19/2022 9:39 AM CDT) Pathologist [facility] SODIUM S/P/B 141 136 - 145 MMOL/L 04/19/2022 3:15 PM CDT [facility] POTASSIUM S/P/B 5.0 3.5 - 5.1 MMOL/L 04/19/2022 3:15 PM CDT [facility] CHLORIDE S/P/B 107 98 - 107 MMOL/L 04/19/2022 3:15 PM CDT [facility] CO2 23.0 21 - 32 MMOL/L 04/19/2022 3:15 PM CDT [facility] GLUCOSE 110(H) 70 - 99 MG/DL 04/19/2022 3:15 PM CDT -[facility] BUN 38(H) 7 - 18 MG/DL 04/19/2022 3:15 PM CDT [facility] CREATININE S/P/B 1.65(H) 0.55 - 1.02 MG/DL 04/19/2022 3:15 PM CDT [facility] CALCIUM S/P/B 9.2 8.4 - 10.5 MG/DL 04/19/2022 3:15 PM CDT [facility] BILIRUBIN TOTAL S/P/B 0.8 0.2 - 1.0 MG/DL 04/19/2022 3:15 PM CDT [facility] ALKALINE PHOSPHATASE S/P/B 81 55 - 142 U/L 04/19/2022 3:15 PM CDT [facility] AST 18 15 - 37 U/L 04/19/2022 3:15 PM CDT [facility] ALT 25 14 - 59 U/L 04/19/2022 3:15 PM CDT [facility] TOTAL PROTEIN S/P/B 7.3 6.4 - 8.2 G/DL 04/19/2022 3:15 PM CDT [facility] ALBUMIN S/P/B 4.2 3.4 - 5.0 G/DL 04/19/2022 3:15 PM T [facility] ANION GAP 11.0 5 - 15 MMOL/L 04/19/2022 3:15 PM T [facility] Comment:REFERENCE RANGE NOT ESTABLISHED OSMOLALITY (CALC) 302 MOSM/KG 022 3:15 PM T [facility] Comment:REFERENCE RANGE NOT ESTABLISHED GFR ESTIMATE 33(L) >90 ML/MIN/1. 73 M2 04/19/2022 3:15 PM T [facility] GFR NOTES GFR REFERENCE S: 04/19/2022 3:15 PM T [facility] Comment: THE ESTIMATED GFR IS CALCULATED USING [...] LABORATORY Final Re sult Performing Organization Address City/[facility]/ZIP Co de Phone Number [facility] [place] [address] [facility] [address], [place] [phone] * A1C (BACK OFFICE) (04/19/2022) HGB A1C 5.8 % [facility] 04/19/2022 us Sami Liriano DO LABORATORY Final Re sult Performing Organization Address City/[facility] Co de Phone Number [facility] [address] [place] [address], documented in this encounter Visit Diagnoses Diagnosis Type 2 diabetes mellitus with stage 3a chronic kidney disease, without long-term current use of insulin ([facility])- Primary Essential hypertension Unspecified essential hypertension Body mass index (BMI) 40.0-44.9, adult ([facility] HHS/HCC) Stage 3a chronic kidney disease ([facility]) Severe obstructive sleep apnea Obstructive sleep apnea (adult) (pediatric) Need for hepatitis C screening test Special screening examination for other specified viral diseases documented in this encounter Additional Health Concerns Assessment Noted Time PHQ-9 Depression Total Score: 0 10/11/19 22 10:50 AM DIGITAL CONTENT MANAGER documented as of this encounter Care Teams Tug Boat Captain Relationship Specialty Start Date End Date Sami Liriano DO [address] [place] [address] PCP - General FAMILY PRACTICE 12/24/19 documented as of this encounter
--- OUTSIDE RECORDS SUMMARY | 2024-09-19 19:40 | XMS_ITS | Encounter Summary ---
Author Organization [facility] Address [facility]. [place], [place] [address] [place] [address] Care Team Providers Care Production Broaching Machine Operator Name Role Phone Sami Liriano DO Primary Care Provider + Encounter Details Date Type Department Care Team (Latest Contact Info) Description 04/19/2022 - 04/19/2022 11:59 PM CDT Hospital Encounter [facility] [address] [place] [address] Sami Liriano DO [facility] [place] [address] Discharge Disposition: Home or Self [...] on file Legal Sex Female 12:43 PM ISOTOPE TECHNICIAN Gender Identity Female 12/18/2021 6:31 AM [...] complication, without long-term current use of insulin ([facility]) Check blood sugar once daily in AM when fasting 1 kit 08/07/2021 4 chlorthalidone (HYGROTEN) 25 MG tabletIndications: Essential hypertension Take 1 tablet (25 mg total) by mouth daily. 90 tablet 1 04/19/2022 3 ESCITALOPRAM 20 MG tabletIndications: Current mild episode of major depressive disorder without prior episode ([facility]) TAKE 1 TABLET BY MOUTH EVERY DAY 90 tablet 1 03/26/2022 2 Glucose Blood test stripIndications:T ype 2 diabetes mellitus without complication, without long-term current use of insulin ([facility]) Check blood sugar once daily in AM when fasting 100 strip 11 08/07/2021 4 Lancets (ONETOUCH ULTRASOFT) lancetsIndications :Type 2 diabetes mellitus without complication, without long-term current use of insulin ([facility]) Check blood sugar once daily [...] st Contact Info) Description 10/09/2024 9:30 AM ISOTOPE TECHNICIAN Office Visit [facility]-[address] [address] Carlos Farris MD [facility] [address] [place] [address] 11/02/2024 10:20 AM ISOTOPE TECHNICIAN Office Visit [facility] Medical Group Family & Internal Medicine - [address] [address] Sami Liriano DO [address] [place] [address] documented as of this encounter Visit Diagnoses Not on filedocumented in this encounter Additional Health Concerns Assessment Noted Time PHQ-9 Depression Total Score: 0 10/11/19 22 10:50 AM ISOTOPE TECHNICIAN documented as of this encounter Care Teams Production Broaching Machine Operator Relationship Specialty Start Date End Date Sami Liriano DO [address] [place] [address] PCP - General FAMILY PRACTICE 12/24/19 documented as of this encounter
--- OUTSIDE RECORDS SUMMARY | 2024-09-19 19:40 | XMS_ITS | Encounter Summary ---
Author Organization [facility] Address [address] [place] [address]. [place], [place] [address] [place] [address] Care Team Providers Care Cigar Packer And Shader Name Role Phone Sami Liriano Primary Care [...] on file Legal Sex Female 12:43 PM OVERLAY OPERATOR Gender Identity Female 12/18/2021 6:31 AM [...] st Contact Info) Description 10/09/2024 9:30 AM OVERLAY OPERATOR Office Visit [facility]-[address] [address] Carlos Farris MD [address] [facility] [address] [place] [address] 11/02/2024 10:20 AM OVERLAY OPERATOR Office Visit [facility] Medical Group Family & Internal Medicine - [address] [phone] Sami Liriano DO [address] [place] [address] documented as of this encounter Procedures Procedure [...] Depression Total Score: 0 10/11/19 10:50 AM OVERLAY OPERATOR documented as of this encounter Care Teams Cigar Packer And Shader Relationship Specialty Start Date End Date Sami Liriano DO [address] [place] [address] PCP - General FAMILY PRACTICE 12/24/19 documented as of this encounter
--- OUTSIDE RECORDS SUMMARY | 2024-09-19 19:40 | XMS_ITS | Encounter Summary ---
Author Organization [facility] Address [address] [place] [address]. 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 Medical Group Family & Internal Medicine - [address] [address] Sami Liriano DO [address] [place] [address] documented as of this encounter Visit Diagnoses Not on filedocumented in this encounter Additional Health Concerns Assessment Noted Time PHQ-9 Depression Total Score: 0 10/11/19 22 10:50 AM MEDICAL INSURANCE CLAIMS SPECIALIST documented as of this encounter Care Teams Gate Watchman Relationship Specialty Start Date End Date Sami Liriano DO [address] [place] [address] PCP - General FAMILY PRACTICE 12/24/19 documented as of this encounter
--- OUTSIDE RECORDS SUMMARY | 2024-09-19 19:40 | XMS_ITS | Encounter Summary ---
Author Organization [facility] Address [address] [place] [address]. [place], [place] [address] [place] [address] Care Team Providers Care Carpenter'S Assistant Name Role Phone Sami Liriano DO Primary Care Provider + Reason for Visit * Reason Onset Date Comments Lab Results 04/23/2022 Encounter Details Date Type Department Care Team (Late st Contact Info) Description 04/23/2022 Telephone [facility] Medical Group Family & Internal Medicine [facility] [address] [place] [address] Sami Liriano DO [facility] [place] [address] Lab Results Social History Tobacco [...] on file Legal Sex Female 12:43 PM FILE 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 Gender Identity Female 12/18/2021 6:31 [...] st Contact Info) Description 10/09/2024 9:30 AM FILE 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 Office Visit [facility] [place] [address] Carlos Farris MD [facility] [address] [place] [address] 11/02/2024 10:20 AM FILE 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 Office Visit [facility] Medical Group Family & Internal Medicine - [address] [address] Sami Liriano DO [address] [place] [address] documented as of this encounter Visit Diagnoses Not on filedocumented in this encounter Additional Health Concerns Assessment Noted Time PHQ-9 Depression Total Score: 0 10/11/19 22 10:50 AM FILE 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 documented as of this encounter Care Teams Carpenter'S Assistant Relationship Specialty Start Date End Date Sami Liriano DO [address] [place] [address] PCP - General FAMILY PRACTICE 12/24/19 documented as of this encounter
--- OUTSIDE RECORDS SUMMARY | 2024-09-19 19:40 | XMS_ITS | Encounter Summary ---
Author Organization [facility] Address [facility]. [place], [place] [address] [place] [address] Care Team Providers Care Grocery Team Member Name Role Phone Sami Liriano DO Primary Care Provider + Reason for Referral * Consultation (Routine) - Closed Specialty Diagnoses / Procedures Referred By Shereen t Referred To Contact RHEUMATOLOGY Diagnoses ALLYSON positive Sami Liriano DO [address] [place] [address] Phone: tel: fax: Chris Bowen MD [address] [address] Phone: tel: fax: Referral ID Status Reason Start Date Expiration Date V isits Requested Visits Authorized [id number] Closed Specialty Services 11/01/2021 05/28/2022 6 6 [employer] Reason for Visit * Reason Onset Date Comments Referral Request 11/14/2021 Encounter Details Date Type Department Care Team (Late st Contact Info) Description 11/14/2021 Telephone [facility] Medical [facility] Family & Internal Medicine - [place] [address] [place] [phone] Sami Liriano DO [address] [place], [place] [phone] Referral Request Social History Tobacco Use Types [...] on file Legal Sex Female 12:43 PM FINISHER [employer]CHANT [employer]ODUCTS Gender Identity Female 12/18/2021 6:31 AM CDT [...] Coronavirus / COVID-19? Yes 10/19/2021 1:15 PM FINISHER [employer] documented as of this encounter Progress Notes * Martha Carrion MA - 11/14/2021 9:[address] Bowen's office to find out time of appointment, patient was rescheduled to 12/06/21, herappointment was at 9:00am Referral ordered. [employer] * Maria Del Rosario [place] - 11/14/2021 8:21 AM CST Patient is needing a referral for Dr. Bowen. Appointment is scheduled for today. Fx: [phone] Dx: [id number] The office would like a call letting them know if the referral will be sent to them today since patient is scheduled for today. [employer] documented in this encounter Plan of Treatment Upcoming Encounters Date Type Department Care Team (Late st Contact Info) Description 10/09/2024 9:30 AM FINISHER MERCHANT PRODUCTS Office Visit [facility] [phone] Carlos Farris MD [address] [facility] [address] [place] [address] 11/02/2024 10:20 AM FINISHER [employer]CHANT [employer]ODUCTS Office Visit [facility] Medical Group Family & Internal Medicine - [address] [phone] Sami Liriano DO [address] [place] [address] Scheduled Referrals Name Type Priority Associated Diagnoses Orde r Schedule Ambulatory referral to Rheumatology Referral Routine ALLYSON positive Ordered: 11/14/2021 documented as of this encounter Visit Diagnoses Diagnosis ALLYSON positive- Primary Other and unspecified nonspecific immunological findings documented in this encounter Additional Health Concerns Assessment Noted Time PHQ-9 Depression Total Score: 0 10/11/19 22 10:50 AM FINISHER [employer] documented as of this encounter Care Teams Grocery Team Member Relationship Specialty Start Date End Date Sami Liriano DO [address] [place] [address] PCP - General FAMILY PRACTICE 12/24/19 documented as of this encounter
--- OUTSIDE RECORDS SUMMARY | 2024-09-19 19:40 | XMS_ITS | Encounter Summary ---
Author Organization [facility] Address [address] [place] [address]. [place], [place] [address] [place] [address] Care Team Providers Care Store Receiving Specialist Name Role Phone Sami Liriano Primary Care Provider + Reason for Visit * Reason Comments Dilated Eye Exam (SCAN) Encounter Details Date Type Department Care Team ([facility] Contact Info) Description 04/26/2022 Scan HEALTH INFO [...] file Legal Sex Female 12:43 PM CAR WASH MANAGER Gender Identity Female 12/18/2021 6:31 AM [...] Contact Info) Description 10/09/2024 9:30 AM CAR WASH MANAGER Office Visit [facility] [phone] Carlos Farris MD [address] [facility] [address] [place] [address] 11/02/2024 10:20 AM CAR WASH MANAGER Office Visit [facility] Medical Group Family & Internal Medicine - [address] [phone] Sami Liriano DO [address] [place] [address] documented as of this encounter Procedures Procedure Name Priority Date/Time Associated Diagnosis Comments DIABETIC RETINOPATHY EXAM (NEGATIVE)(SCAN ORDER) Routine 04/26/2022 documented in this encounter Results * DIABETIC RETINOPATHY EXAM (NEGATIVE)(SCAN) (04/26/2022) us Documents Scanned SCANNING Final Result [facility] ONBASE documented in this encounter Visit Diagnoses Not on filedocumented in this encounter Additional Health Concerns Assessment Noted Time PHQ-9 Depression Total Score: 0 10/11/19 22 10:50 AM CAR WASH MANAGER documented as of this encounter Care Teams Store Receiving Specialist Relationship Specialty Start Date End Date Sami Liriano DO [address] [place] [address] PCP - General FAMILY PRACTICE 12/24/19 documented as of this encounter
--- OUTSIDE RECORDS SUMMARY | 2024-09-19 19:40 | XMS_ITS | Encounter Summary ---
Author Organization [facility] Address [address] [place] [address]. [place], [place] [address] [place] [address] Care Team Providers Care Marketing Development Representative Name Role Phone Sami Liriano DO Primary Care Provider + Reason for Visit * Reason Onset Date Comments Results 12/04/2022 Encounter Details Date Type Department Care Team (Late st Contact Info) Description 12/04/2022 Telephone [facility] Medical Group Family & Internal Medicine [address] [place] [address] Sami Liriano DO [address] [place] [address] Results Social History Tobacco Use Types [...] on file Legal Sex Female 12:43 PM CLOTH FINISHER Gender Identity Female 12/18/2021 6:31 AM CDT Sexual Orientation Straight 01/15/2022 6: 11 AM CDT 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 The patient v/u and did not have questions at this time. ----- Message from Sami Liriano DO sent at 12/02/2022 1:11 PM CLOTH FINISHER ----- Pt is low in Vitamin D. Recommend 2000 IU supplementation daily. Pt's WBC count and Hgb are slightly off with other labs being WNL; would repeat at next OV to ensure resolution. Other labs are stableand can be repeated in 1 year. H FINISHER H FINISHER documented in this encounter Plan of Treatment Upcoming Encounters Date Type Department Care Team (Late st Contact Info) Description 10/09/2024 9:30 AM CLOTH FINISHER Office Visit [facility] [phone] Carlos Farris MD Three [facility] [address] [place] [address] 11/02/2024 10:20 AM CLOTH FINISHER Office Visit [facility] Medical Group Family & Internal Medicine - [address] [phone] Sami Liriano DO [address] [place] [address] documented as of this encounter Visit Diagnoses Not on filedocumented in this encounter Additional Health Concerns Assessment Noted Time PHQ-9 Depression Total Score: 0 10/11/19 10:50 AM CLOTH FINISHER documented as of this encounter Care Teams Marketing Development Representative Relationship Specialty Start Date End Date Sami Liriano DO [address] [place] [address] PCP - General FAMILY PRACTICE 12/24/19 documented as of this encounter
--- OUTSIDE RECORDS SUMMARY | 2024-09-19 19:40 | XMS_ITS | Encounter Summary ---
Author Organization [facility] Address [address] [place] [address]. [place], [place] [address] [place] [address] Care Team Providers Care [place]. Representative Name Role Phone Sami Liriano DO Primary Care Provider + Reason for Visit * Reason Onset Date Comments Results 01/19/2022 Encounter Details Date Type Department Care Team (Late st Contact Info) Description 01/19/2022 Telephone [facility] Medical Group Family & Internal Medicine [address] [place] [address] Sami Liriano DO [facility] [address] [place] [address] Results Social History Tobacco Use [...] file Legal Sex Female 12:43 PM CLINICAL DIETITIAN Gender Identity Female 12/18/2021 6:31 AM CDT [...] Contact Info) Description 10/09/2024 9:30 AM CLINICAL DIETITIAN Office Visit [facility]-[address] [phone] Carlos Farris MD [facility] [address] [place] [address] 11/02/2024 10:20 AM CLINICAL DIETITIAN Office Visit [facility] Medical Group Family & Internal Medicine - [address] [phone] [place] [address] [place] [address] documented as of this encounter Visit Diagnoses Not on filedocumented in this encounter Additional Health Concerns Assessment Noted Time PHQ-9 Depression Total Score: 0 10/11/19 22 10:50 AM CLINICAL DIETITIAN documented as of this encounter Care Teams [place]. Representative Relationship Specialty Start Date End Date Sami Liriano DO [address] [place] [address] PCP - General FAMILY PRACTICE 12/24/19 documented as of this encounter
--- OUTSIDE RECORDS SUMMARY | 2024-09-19 19:40 | XMS_ITS | Encounter Summary ---
Author Organization [facility] Address [facility]. 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 Yes 10/19/2021 1:15 PM STAFF VETERINARIAN documented as of this encounter Plan of Treatment Upcoming Encounters Date Type Department Care Team (Late st Contact Info) Description 10/09/2024 9:30 AM STAFF VETERINARIAN Office Visit [facility] [phone] Carlos Farris MD [address] [facility] [address] [place] [address] 11/02/2024 10:20 AM STAFF VETERINARIAN Office Visit [facility] Medical Group Family & Internal Medicine - [address] [phone] Sami Liriano DO [address] [place] [address] documented as of this encounter Visit Diagnoses Not on filedocumented in this encounter Additional Health Concerns Infection Onset Date Last Indicated Resolved Time COVID-19 Confirmed 10/11/2021 10/11/2021 12:35 AM STAFF VETERINARIAN Assessment Noted Time PHQ-9 Depression Total Score: 0 10/11/19 22 10:50 AM STAFF VETERINARIAN documented as of this encounter Care Teams County Assessor Relationship Specialty Start Date End Date Sami Liriano DO [address] [place] [address] PCP - General FAMILY PRACTICE 12/24/19 documented as of this encounter
--- OUTSIDE RECORDS SUMMARY | 2024-09-19 19:40 | XMS_ITS | Encounter Summary ---
Author Organization [facility] Address [address] [place] [address]. [place], [place] [address] [place] [address] Care Team Providers Care Metal Spinner Name Role Phone Sami Liriano Primary Care Provider + Reason for Visit * Reason Comments Vascular Lab Study (SCAN) Encounter Details Date Type Department Care Team ([facility] Contact Info) Description 04/30/2022 Scan HEALTH INFO [...] on file Legal Sex Female 12:43 PM LIFE AGENT Gender Identity Female 12/18/2021 6:31 AM [...] st Contact Info) Description 10/09/2024 9:30 AM LIFE AGENT Office Visit [facility] [phone] Carlos Farris MD [address] [facility] [address] [place] [address] 11/02/2024 10:20 AM LIFE AGENT Office Visit [facility] Medical Group Family & Internal Medicine - [address] [phone] Sami Liriano DO [address] [place] [address] documented as of this encounter Procedures Procedure [...] Total Score: 0 10/11/19 22 10:50 AM LIFE AGENT documented as of this encounter Care Teams Metal Spinner Relationship Specialty Start Date End Date Sami Liriano DO [address] [place] [address] PCP - General FAMILY PRACTICE 12/24/19 documented as of this encounter
--- OUTSIDE RECORDS SUMMARY | 2024-09-19 19:40 | XMS_ITS | Encounter Summary ---
Author Organization [facility] Address [address] [place] [address]. [place], [place] [address] [place] [address] Care Team Providers Care High Heel Builder Name Role Phone Sami Liriano DO Primary Care Provider + Reason for Visit * Reason Onset Date Comments Vaginal Bleeding 2022 Encounter Details Date Type Department Care Team (Late st Contact Info) Description 2022 Telephone [facility] Medical Group Family & Internal Medicine [facility] [address] [place] [address] Sami Liriano DO [facility] [place] [address] Vaginal Bleeding Social History Tobacco [...] on file Legal Sex Female 12:43 PM BALLISTICS TEACHER Gender Identity Female 12/18/2021 6:31 AM [...] st Contact Info) Description 10/09/2024 9:30 AM BALLISTICS TEACHER Office Visit [facility]-[address] [phone] Carlos Farris MD [facility] [address] [place] [address] 11/02/2024 10:20 AM BALLISTICS TEACHER Office Visit [facility] Medical Group Family & Internal Medicine - [place] [address] [place] [address] Sami Liriano DO [address] [place] [address] documented as of this encounter Visit Diagnoses Not on filedocumented in this encounter Additional Health Concerns Assessment Noted Time PHQ-9 Depression Total Score: 0 10/11/19 22 10:50 AM BALLISTICS TEACHER documented as of this encounter Care Teams High Heel Builder Relationship Specialty Start Date End Date Sami Liriano DO [address] [place] [address] PCP - General FAMILY PRACTICE 12/24/19 documented as of this encounter
--- OUTSIDE RECORDS SUMMARY | 2024-09-19 19:40 | XMS_ITS | Encounter Summary ---
Author Organization [facility] Address [address] [place] [address]. [place], [place] [address] [place] [address] Care Team Providers Care Food Runner Name Role Phone Sami Liriano Primary [...] on file Legal Sex Female 12:43 PM CORONER TECHNICIAN Gender Identity Female 12/18/2021 6:31 AM [...] st Contact Info) Description 10/09/2024 9:30 AM CORONER TECHNICIAN Office Visit [facility]-[address] [phone] Carlos Farris MD Three [facility] [address] [place] [address] 11/02/2024 10:20 AM CORONER TECHNICIAN Office Visit [facility] Medical Group Family & Internal Medicine - [address] [phone] Sami Liriano DO [address] [place] [address] documented as of this encounter Visit Diagnoses Not on filedocumented in this encounter Additional Health Concerns Infection Onset Date Last Indicated Resolved Time COVID-19 Rule Out 07/24/2023 07/24/2023 07/24/2023 11:49 AM CDT COVID-19 Rule Out 07/24/2023 07/24/2023 07/25/2023 4:22 PM CDT COVID-19 Rule Out 11/01/2023 11/01/2023 11/01/2023 2:42 PM CORONER TECHNICIAN Assessment Noted Time PHQ-9 Depression Total Score: 0 10/11/19 22 10:50 AM CORONER TECHNICIAN documented as of this encounter Care Teams Food Runner Relationship Specialty Start Date End Date Sami Liriano DO [address] [place] [address] PCP - General FAMILY PRACTICE 12/24/19 documented as of this encounter
--- OUTSIDE RECORDS SUMMARY | 2024-09-19 19:40 | XMS_ITS | Encounter Summary ---
Author Organization [facility] Address [facility]. [place], [place] [address] [place] [address] Care Team Providers Care District Branch Manager Name Role Phone Sami Liriano DO Primary Care Provider + Reason for Referral * Consultation (Urgent) - Closed Specialty Diagnoses / Procedures Referred By Shereen benton Referred To Contact OTOLARYNGOLOGY Diagnoses Severe obstructive sleep apnea Sami Liriano DO [address] [place] [address] Phone: tel: fax: Varghese Rao MD [address] [place] [address] Phone: tel: fax: Referral ID Status Reason Start Date Expiration Date Visits Re quested Visits Authorized [id number] Closed 01/16/2022 07/15/2022 6 6 Reason for Visit * Reason Comments Diabetes follow up Encounter Details Date Type Department Care Team (Late st Contact Info) Description 01/17/2022 9:40 AM CDT Office Visit [facility] Family & Internal Medicine - [place] [address] [place] [address] Sami Liriano DO [address] [place] [address] Diabetes (follow up ) Social History Tobacco [...] on file Legal Sex Female 12:43 PM BUTT PRESSER Gender Identity Female 12/18/2021 6:31 AM CDT [...] 3 performed by Joel Keenan MD at [facility] OR ??? EGD ??? HERNIA [...] Not on file Occupational History ??? 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 Smoking status: Former Smoker [...] when fasting 100 strip 11 ??? Lancets (Getting-inUCH ULTRASOFT) lancets Check blood sugar once daily [...] daily in AM when fasting ??? Lancets (ChaChaTOUCH ULTRASOFT) lancets Check blood sugar once daily [...] disease, without long-term current use of insulin ([facility]) - A1C (BACK OFFICE) - COLLECT.CAPILLARY (FNGR,HEEL,EAR) - COMPREHENSIVE METABOLIC PANEL; Future - VENIPUNC ARM DRAW - COMPREHENSIVE METABOLIC PANEL Stage 3a chronic kidney disease ([facility]) - COMPREHENSIVE METABOLIC PANEL; Future - VENIPUNC ARM DRAW - COMPREHENSIVE METABOLIC PANEL Severe obstructive sleep apnea - Ambulatory referral to ENT Mixed hyperlipidemia Essential hypertension BMI 45.0-49.9, adult ([facility]) Current mild episode of major depressive disorder without prior episode ([facility]) Discussion/Summary: Continue current meds for T2DM, MDD, [...] st Contact Info) Description 10/09/2024 9:30 AM BUTT PRESSER Office Visit [facility] [phone] Carlos Farris MD [facility] [address] [place] [address] 11/02/2024 10:20 AM BUTT PRESSER Office Visit [facility] Group Family & Internal Medicine - [address] [phone] Sami Liriano DO [address] [place] [address] Scheduled Referrals Name Type Priority Associated Diagnoses Orde r Schedule Ambulatory referral to ENT Referral Routine Severe obstructive sleep apnea Ordered: 01/17/2022 documented as of this encounter Procedures Procedure Name Priority Date/Time Associated Diagnosis Comments COMPREHENSIVE METABOLIC PANEL Routine 01/17/2022 10:50 AM CDT Type 2 diabetes mellitus with stage 3a chronic kidney disease, without long-term current use of insulin ([facility] HHS/HCC) Stage 3a chronic kidney disease ([facility]) VENIPUNC ARM DRAW Routine 01/17/2022 10: 23 AM CDT Type 2 diabetes mellitus with stage 3a chronic kidney disease, without long-term current use of insulin ([facility]) Stage 3a chronic kidney disease ([facility]) COLLECT.CAPILLARY (FNGR,HEEL,EAR) Routine 01/17/2022 9:43 AM CDT Type 2 diabetes mellitus with stage 3a chronic kidney disease, without long-term current use of insulin ([facility]) HEMOGLOBIN, GLYCOSYLATED Routine 01/17/2022 Type 2 diabetes mellitus with stage 3a chronic kidney disease, without long-term current use of insulin ([facility]) documented in this encounter Results * (ABNORMAL) COMPREHENSIVE METABOLIC PANEL (01/17/2022 10:50 AM CDT) [facility] SODIUM S/P/B 140 136 - 145 MMOL/L 01/17/2022 2:07 PM CDT [facility] POTASSIUM S/P/B 5.1 3.5 - 5.1 MMOL/L 01/17/2022 2:07 PM CDT -[facility] CHLORIDE S/P/B 102 98 - 107 MMOL/L 01/17/2022 2:07 PM CDT [facility] CO2 29.2 21 - 32 MMOL/L 01/17/2022 2:07 PM CDT [facility] GLUCOSE 114(H) 70 - 99 MG/DL 01/17/2022 2:07 PM CDT [facility] BUN 49(H) 6 - 24 MG/DL 01/17/2022 2:07 PM CDT [facility] CREATININE S/P/B 1.64(H) 0.55 - 1.02 MG/DL 01/17/2022 2:07 PM CDT -[facility] CALCIUM S/P/B 9.5 8.4 - 10.5 MG/DL 01/17/2022 2:07 PM CDT [facility] BILIRUBIN TOTAL S/P/B 0.7 0.2 - 1.0 MG/DL 01/17/2022 2:07 PM T [facility] ALKALINE PHOSPHATASE S/P/B 84 55 - 142 U/L 01/17/2022 2:07 PM CDT [facility] AST 18 15 - 37 U/L 01/17/2022 2:07 PM CDT [facility] ALT 28 14 - 59 U/L 01/17/2022 2:07 PM T [facility] TOTAL PROTEIN S/P/B 7.1 6.4 - 8.2 G/DL 01/17/2022 2:07 PM T [facility] ALBUMIN S/P/B 3.9 3.4 - 5.0 G/DL 01/17/2022 2:07 PM T [facility] ANION GAP 8.8 5 - 15 MMOL/L 01/17/2022 2:07 PM T [facility] Comment:REFERENCE RANGE NOT ESTABLISHED OSMOLALITY (CALC) 304 MOSM/KG 01/17/2022 2:07 PM T [facility] Comment:REFERENCE RANGE NOT ESTABLISHED EGFR NON-AFR. AMER. 32(L) >90 ML/MIN/1 .73 M2 01/17/2022 2:07 PM T [facility] EGFR AFR. AMER. 37(L) >90 ML/MIN/1 .73 M2 01/17/2022 2:07 PM T [facility] GFR NOTES THE ESTIMATED GFR IS CALCULATED USING THE 2009 CKD-EPI EQUATION. THE FOLLOWING CATEGORIES FOR GRADING RENAL FUNCTION ARE RECOMMENDED BY THE INTERNATIONAL SOCIETY OF NEPHROLOGY (KDIGO 2012 CLINICAL PRACTICE GUIDELINE). 01/17/2022 2:07 PM T [facility] Comment: G1,NORMAL OR HIGH: >89 ml/min/1.73 m2 G2,MILDLY DECREASED: 60-89 ml/min/1.73 m2 G3A,MILDLY TO MODERATELY DECREASED: 45-59 ml/min/1.73 m2 G3B,MODERATELY TO SEVERELY DECREASED: 30-44 ml/min/1.73 m2 G4,SEVERELY DECREASED: 15-29 ml/min/1.73 m2 G5,KIDNEY FAILURE: <15 ml/min/1.73 m2 01/17/2022 10:5 0 AM CDT us Sami Liriano DO LABORATORY Final Re sult Performing Organization Address City/[facility]/ZIP Co de Phone Number [facility] KAMILA MABEL [address] [facility] [place] [address], [place] [phone] * A1C (BACK OFFICE) (01/17/2022) HGB A1C 5.7 % [facility] 01/17/2022 us Sami Elderlowellbrooke DO LABORATORY Final Re sult Performing Organization Address City/[facility] Co de Phone Number [facility] [address] [place] [address], documented in this encounter Visit Diagnoses Diagnosis Type 2 diabetes mellitus with stage 3a chronic kidney disease, without long-term current use of insulin ([facility])- Primary Stage 3a chronic kidney disease ([facility] HHS/HCC) Severe obstructive sleep apnea Obstructive sleep apnea (adult) (pediatric) Mixed hyperlipidemia Essential hypertension Unspecified essential hypertension BMI 45.0-49.9, adult ([facility] HHS/HCC) Body Mass Index 45.0-49.9, adult Current mild episode of major depressive disorder without prior episode ([facility]) documented in this encounter Additional Health Concerns Assessment Noted Time PHQ-9 Depression Total Score: 0 10/11/19 22 10:50 AM BUTT PRESSER documented as of this encounter Care Teams District Branch Manager Relationship Specialty Start Date End Date Sami Liriano DO [address] [place] [address] PCP - General FAMILY PRACTICE 12/24/19 documented as of this encounter
--- OUTSIDE RECORDS SUMMARY | 2024-09-19 19:40 | XMS_ITS | Encounter Summary ---
Author Organization [facility] Address [address] [place] [address]. [place], [place] [address] [place] [address] Care Team Providers Care Hygiene Coordinator Name Role Phone Sami Liriano DO Primary Care Provider + Reason for Visit * Reason Onset Date Comments UTI 09/04/2022 Encounter Details Date Type Department Care Team (Late st Contact Info) Description 09/04/2022 Telephone [facility] Family & Internal Medicine [id number] [place] [address] Sami Liriano DO [facility] [place] [address] UTI Social History Tobacco Use [...] file Legal Sex Female 12:43 PM ELECTRICAL LOGGING ENGINEER Gender Identity Female 12/18/2021 6:31 AM CDT Sexual Orientation Straight 01/15/2022 6: 11 AM CDT 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 May need to obtain testing if not improving. TRICAL LOGGING ENGINEER * Poppy Alas - 09/04/2022 3:23 PM CST Patient has had uti symptoms for about a week. Has been taking azo to help. She now has less pain but urine is really cloudy and has odor. Wondering if we can call out anything for her. She is unableto get into drop off a u/a for us soon TRICAL LOGGING ENGINEER documented in this encounter Plan of Treatment Upcoming Encounters Date Type Department Care Team (Late st Contact Info) Description 10/09/2024 9:30 AM ELECTRICAL LOGGING ENGINEER Office Visit [facility]-[address] [phone] Carlos Farris MD [address] [facility] [address] [facility] [place] [address] 11/02/2024 10:20 AM ELECTRICAL LOGGING ENGINEER Office Visit [facility] Family & Internal Medicine - [address] [phone] Sami Liriano DO [address] [place] [address] documented as of this encounter Visit Diagnoses Diagnosis UTI symptoms- Primary documented in this encounter Additional Health Concerns Assessment Noted Time PHQ-9 Depression Total Score: 0 10/11/19 22 10:50 AM ELECTRICAL LOGGING ENGINEER documented as of this encounter Care Teams Hygiene Coordinator Relationship Specialty Start Date End Date Sami Liriano DO [address] [place] [address] PCP - General FAMILY PRACTICE 12/24/19 documented as of this encounter
--- OUTSIDE RECORDS SUMMARY | 2024-09-19 19:40 | XMS_ITS | Encounter Summary ---
Author Organization [facility] Address [facility]. [place], [place] [address] [place] [address] Care Team Providers Care Glost Tile Shader Name Role Phone Sami Liriano DO Primary Care Provider + Reason for Referral * Imaging (Routine) - Closed Specialty Diagnoses / Procedures Referred By Shereen benton Referred To Contact RADIOLOGY Diagnoses Arthritis of knee Procedures OUS GUIDE NEEDLE PLCMT ORTHO Manuelito Marcelino PA [address] [place] [address] Phone: tel: fax: Referral ID Status Reason Start Date Expiration Date Visits Re quested Visits Authorized [id number] Closed 12/19/2022 01/19/2024 1 1 Reason for Visit * Reason Comments New Patient Lt knee * Consultation (Routine) - Closed Specialty Diagnoses / Procedures Referred By Shereen benton Referred To Contact ORTHOPAEDICS Diagnoses Left knee pain Procedures OFFICE/OUTPT VISIT,NEW,LEVL III OFFICE/OUTPT VISIT,NEW,LEVL IV OFFICE/OUTPT VISIT,NEW,LEVL V OFFICE/OUTPT VISIT,EST,LEVL III OFFICE/OUTPT VISIT,EST,LEVL IV OFFICE/OUTPT VISIT,EST,LEVL V Sami Liriano DO [address] [place] [address] Phone: tel: fax: Manuelito Marcelino PA [address] [place] [address] Phone: tel: fax: Referral ID Status Reason Start Date Expiration Date V isits Requested Visits Authorized [id number] Closed Specialty Services 12/14/2022 07/30/2023 6 6 Encounter Details Date Type Department Care Team (Late st Contact Info) Description 12/19/2022 3:00 PM CDT Office Visit [facility] Orthopedic & Sports Medicine - [place] [address] [place] [address] Manuelito Marcelino PA [address] [place] [address] New Patient (Lt knee) Social [...] on file Legal Sex Female 12:43 PM STUD MASTER/MISTRESS Gender Identity Female 12/18/2021 6:31 AM CDT [...] knee pain. 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 EGD ??? HERNIA REPAIR [...] Portions of this note were dictated using [employer] speech recognition software. Occasional wrong wordor sound-alike substitutions may have occurred due to the inherent limitations of voice recognition software. Please read the chart carefully and recognize, using context, where the substitutions may have occurred. Procedures KEVIN PATTON 12/19/2022 documented in this encounter Plan of Treatment Upcoming Encounters Date Type Department Care Team (Late st Contact Info) Description 10/09/2024 9:30 AM STUD MASTER/MISTRESS Office Visit [facility]-[address] [phone] Carlos Farris MD [address] [facility] [address] [place] [address] 11/02/2024 10:20 AM STUD MASTER/MISTRESS Office Visit [facility] Family & Internal Medicine - [address] [phone] Sami Liriano DO [address] [place] [address] Scheduled Orders Name Type Priority Associated Diagnoses [...] Total Score: 0 10/11/19 22 10:50 AM STUD MASTER/MISTRESS documented as of this encounter Care Teams Glost Tile Shader Relationship Specialty Start Date End Date Sami Liriano DO [address] [place] [address] PCP - General FAMILY PRACTICE 12/24/19 documented as of this encounter
--- OUTSIDE RECORDS SUMMARY | 2024-09-19 19:40 | XMS_ITS | Encounter Summary ---
Author Organization [facility] Address [facility]. [place], [place] [address] [place] [address] Care Team Providers Care Azure Architect Name Role Phone Sami Liriano Primary Care Provider + Encounter Details Date Type Department Care Team (Late st Contact Info) Description 12/18/2022 Orders Only [facility] Orthopedic & Sports Medicine - [place] [address] [place] [address] Manuelito Marcelino PA [address] [place] [address] Social History Tobacco Use Types Packs/Day Years [...] file Legal Sex Female 12:43 PM QUALITY ASSURANCE TECH Gender Identity Female 12/18/2021 6:31 AM CDT Sexual Orientation Straight 01/15/2022 6: 11 AM CDT 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 Not on file Not on franck e documented as of this encounter Plan of Treatment Upcoming Encounters Date Type Department Care Team (Late st Contact Info) Description 10/09/2024 9:30 AM QUALITY ASSURANCE TECH Office Visit [facility]-[address] [phone] Carlos Farris MD [address] [facility] [address] [place] [address] 11/02/2024 10:20 AM QUALITY ASSURANCE TECH Office Visit [facility] Medical Group Family & Internal Medicine - [address] [phone] [place] [address] [place] [address] Scheduled Orders Name Type Priority Associated Diagnoses Orde r Schedule XR KNEE LT 3V Imaging Routine Left knee pain, unspecified chronicity Expected: 12/19/2022, Expires: 12/19/2023 documented as of this encounter Visit Diagnoses Diagnosis Left knee pain, unspecified chronicity- Primary documented in this encounter Additional Health Concerns Assessment Noted Time PHQ-9 Depression Total Score: 0 10/11/19 22 10:50 AM QUALITY ASSURANCE TECH documented as of this encounter Care Teams Azure Architect Relationship Specialty Start Date End Date Sami Liriano DO [address] [place] [address] PCP - General FAMILY PRACTICE 12/24/19 documented as of this encounter
--- OUTSIDE RECORDS SUMMARY | 2024-09-19 19:40 | XMS_ITS | Encounter Summary ---
Author Organization [facility] Address [address] [place] [address]. [place], [place] [address] [place] [address] Care Team Providers Care Tenterer Name Role Phone Sami Liriano DO Primary Care Provider + Reason for Visit * Reason Onset Date Comments Question 11/30/2022 Encounter Details Date Type Department Care Team (Late st Contact Info) Description 11/30/2022 Telephone [facility] Group Family & Internal Medicine [address] [place] [address] Sami Liriano DO [facility] [place] [address] Question Social History Tobacco Use [...] file Legal Sex Female 12:43 PM SUPERVISOR VENEER Gender Identity Female 12/18/2021 6:31 AM CDT [...] 11:23 AM CST Spoke with Gisell at [facility]. She informed me they have reached out to the patient 4 times and never vd call back. Called patient and LMOM informing her she can contact [facility] at [phone]. Informed patient to r/c to our office with questions or concerns. RVISOR VENEER * Sami Liriano DO - 11/30/2022 11:08 AM CST Pt had a CPAP ordered around April 26, 2023 from [facility]. Pt states she has never heard back from them nor do I see any follow-up paperwork. Can we look into this further? RVISOR VENEER documented in this encounter Plan of Treatment Upcoming Encounters Date Type Department Care Team (Late st Contact Info) Description 10/09/2024 9:30 AM SUPERVISOR VENEER Office Visit [facility]-[address] [phone] Carlos Farris MD [address] [facility] [address] [place] [address] 11/02/2024 10:20 AM SUPERVISOR VENEER Office Visit [facility] Medical Group Family & Internal Medicine - [address] [phone] Sami Liriano DO [address] [place] [address] documented as of this encounter Visit Diagnoses Not on filedocumented in this encounter Additional Health Concerns Assessment Noted Time PHQ-9 Depression Total Score: 0 10/11/19 22 10:50 AM SUPERVISOR VENEER documented as of this encounter Care Teams Tenterer Relationship Specialty Start Date End Date Sami Liriano DO [address] [place] [address] PCP - General FAMILY PRACTICE 12/24/19 documented as of this encounter
--- OUTSIDE RECORDS SUMMARY | 2024-09-19 19:40 | XMS_ITS | Encounter Summary ---
Author Organization [facility] Address [address] [place] [address]. [place], [place] [address] [place] [address] Care Team Providers Care Radiology Tech Name Role Phone Sami Liriano DO Primary Care Provider + Reason for Visit * Reason Onset Date Comments Back Pain 10/19/2021 Encounter Details Date Type Department Care Team (Late st Contact Info) Description 10/19/2021 Telephone [facility] Medical Group Family & Internal Medicine [facility] [address] [place] [address] Sami Liriano DO [facility] [place] [address] Back Pain Social History Tobacco [...] file Legal Sex Female 12:43 PM PRODUCTION TEAM ADVISOR Gender Identity Female 12/18/2021 6:31 AM [...] Coronavirus / COVID-19? Yes 10/19/2021 1:15 PM PRODUCTION TEAM ADVISOR documented as of this encounter Progress Notes * Radha Oglesby MA - 10/19/2021 1:57 PM CST Patient notified and v/u UCTION TEAM ADVISOR * Sami Liriano DO - 10/19/2021 12:12 PM CST Okay to do Flexeril 5 mg, 1-2 tabs TID prn pain, #30 tabs, no refills. UCTION TEAM ADVISOR * EFRAIN Martin - 10/19/2021 9:12 AM CST Patient called to say she's having muscle spasms and wants something sent for her to help with this. Does not want to be seen. I informed her id send a message but cant guarantee anything. She wants a call back UCTION TEAM ADVISOR documented in this encounter Plan of Treatment Upcoming Encounters Date Type Department Care Team (Late st Contact Info) Description 10/09/2024 9:30 AM PRODUCTION TEAM ADVISOR Office Visit [facility]-[address] [phone] Carlos Farris MD [facility] [address] [place] [address] 11/02/2024 10:20 AM PRODUCTION TEAM ADVISOR Office Visit [facility] Medical Group Family & Internal Medicine - [place] [address] [place] [address] Sami Liriano DO [address] [place] [address] documented as of this encounter Visit Diagnoses Diagnosis Muscle spasm- Primary Spasm of muscle documented in this encounter Additional Health Concerns Infection Onset Date Last Indicated Resolved Time COVID-19 Confirmed 10/11/2021 10/11/2021 2 12:35 AM PRODUCTION TEAM ADVISOR Assessment Noted Time PHQ-9 Depression Total Score: 0 10/11/19 22 10:50 AM PRODUCTION TEAM ADVISOR documented as of this encounter Care Teams Radiology Tech Relationship Specialty Start Date End Date Sami Liriano DO [address] [place] [address] PCP - General FAMILY PRACTICE 12/24/19 documented as of this encounter
--- OUTSIDE RECORDS SUMMARY | 2024-09-19 19:40 | XMS_ITS | Encounter Summary ---
Author Organization [facility] Address [facility]. [place], [place] [id number] [place] [address] Care Team Providers Care Belt Builder Helper Name Role Phone Sami Liriano Primary Care Provider + Encounter Details Date Type Department Care Team (Latest Contact Info) Description 12/11/2021 5:45 PM CDT - 12/11/2021 11:59 PM T Hospital Encounter [facility] [address] [place] [address] Chris Bowen MD [address] [place] [address] Discharge Disposition: Home or Self Care (Routine [...] on file Legal Sex Female 12:43 PM RETORT OR CONDENSER PRESS OPERATOR Gender Identity Female 12/18/2021 6:31 AM CDT Sexual Orientation Straight 01/15/2022 6: 11 AM CDT 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 Not on file [...] complication, without long-term current use of insulin ([facility]) Check blood sugar once daily in [...] of major depressive disorder without prior episode ([facility]) TAKE 1 TABLET BY MOUTH EVERY DAY 90 tablet 1 09/20/2021 2 FUROSEMIDE 20 MG tabletIndications: Essential hypertension TAKE 1 TABLET BY MOUTH EVERY DAY 90 tablet 1 09/20/2021 2 Glucose Blood test stripIndications:T ype 2 diabetes mellitus without complication, without long-term current use of insulin ([facility]) Check blood sugar once daily in AM when fasting 100 strip 11 08/07/2021 4 Lancets (ONETOUCH ULTRASOFT) lancetsIndications :Type 2 diabetes mellitus without complication, without long-term current use of insulin ([facility]) Check blood sugar once daily in AM when fasting 1 each 11 08/07/2021 4 LISINOPRIL 40 MG tabletIndications: Essential hypertension TAKE 1 TABLET BY MOUTH EVERY DAY 90 tablet 1 09/20/2021 2 metFORMIN ER 500 MG 24 hr tabletIndications: Type 2 diabetes mellitus without complication, without long-term current use of insulin ([facility]) Take 1 tablet (500 mg total) [...] st Contact Info) Description 10/09/2024 9:30 AM RETORT OR CONDENSER PRESS OPERATOR Office Visit [facility] [phone] Carlos Farris MD [facility] [address] [place] [address] 11/02/2024 10:20 AM RETORT OR CONDENSER PRESS OPERATOR Office Visit [facility] Family & Internal Medicine - [address] [phone] Heri Sami P, DO [address] [place] [address] documented as of this encounter Procedures Procedure Name Priority Date/Time Associated Diagnosis Comments BLUE CRABBER ANTIBODY Routine 12/11/2021 12:00 PM CDT MCGINNIS [...] CDT documented in this encounter Results * BLUE CRABBER ANTIBODY (12/11/2021 12:00 PM CDT) BLUE CRABBER (U1) AB S/P/B 1.7 0.0 - 4.9 U/mL 12/13/2021 1:19 PM CDT [facility] Comment: NEGATIVE: <5 U/mL EQUIVOCAL: 5 to 10 U/mL POSITIVE: >10 U/mL ?AUTOANTIBODIES TO BLUE CRABBER ARE FOUND IN GREATER THAN 95% OF PATIENTS WITH MIXED CONNECTIVE TISSUE DISEASE (MCTD), BUT ARE ALSO SEEN IN SYSTEMIC LUPUS ERYTHEMATOUS (40%), RHEUMATOID ARTHRITIS (10%), SCLERODERMA SYNDROME (10%), AND RARELY IN DRUG INDUCED LUPUS AND SJOGREN'S SYNDROME. ABSENCE OF BLUE CRABBER ANTIBODIES USUALLY RULES OUT MCTD. 12/11/2021 12:0 0 PM CDT Chris Bowen MD LABORATORY Final Result [facility] [address] [place] [phone], [phone] * SSB ANTIBODY (12/11/2021 12:00 PM CDT) SSB ANTIBODY 0.6 0.0 - 6.9 U/mL 12/13/2021 1:19 PM CDT [facility] Comment: NEGATIVE: <7 U/mL EQUIVOCAL: 7 to 10 u/mL POSITIVE: >10 U/mL ?? SSA AND/OR SSB AUTOANTIBODIES ARE DETECTED IN 60% TO 90% OF PATIENTS WITH SJOGREN'S SYNDROME AND IN 20% TO 40% OF PATIENTS WITH SYSTEMIC LUPUS ERYTHEMATOSUS. 12/11/2021 12:0 0 PM CDT us Chris Bowen MD LABORATORY Final Result Performing Organization Address City/[facility]/ZIP Co de Phone Number [facility] [address] [place] [address], [phone] * SSA ANTIBODY (12/11/2021 12:00 PM CDT) SSA ANTIBODY 0.5 0.0 - 6.9 U/mL 12/13/2021 1:19 PM CDT [facility] Comment: NEGATIVE: <7 U/mL EQUIVOCAL: 7 to 10 u/mL POSITIVE: >10 U/mL ?? SSA AND/OR SSB AUTOANTIBODIES ARE DETECTED IN 60% TO 90% OF PATIENTS WITH SJOGREN'S SYNDROME AND IN 20% TO 40% OF PATIENTS WITH SYSTEMIC LUPUS ERYTHEMATOSUS. 12/11/2021 12:0 0 PM CDT us Chris Bowen MD LABORATORY Final Result Performing Organization Address [facility] Co de Phone Number [facility] [address] [place] [address], [phone] * THYROID MICROSOMAL ANTIBODY (12/11/2021 12:00 PM CDT) ANTITHY PEROXID AB 6.0 IU/ML 12/12/2021 11:35 AM CDT [facility] Comment: NEGATIVE: < 25 IU/ML EQUIVOCAL: 25 to 35 IU/ML POSITIVE: > 35 IU/ML 12/11/2021 12:0 0 PM CDT us Chris Bowen MD LABORATORY Final Result Performing Organization Address City/[facility] Co de Phone Number [facility] [address] [place] [address], [phone] * RHEUMATOID FACTOR, QUANT (12/11/2021 12:00 PM CDT) RHEUMATOID FACTOR <10 <15 IU/ML 12/11/2021 7:24 PM CDT [facility] 12/11/2021 12:0 0 PM CDT us Chris Bowen MD LABORATORY Final Result Performing Organization Address City/[facility]/ZIP Co de Phone Number [facility] [address] [place] [address], [phone] * THYROXINE, FREE (FT4) (12/11/2021 12:00 PM CDT) FREE T4 1.10 0.76 - 1.46 NG/DL 12/11/2021 8:20 PM CDT [facility] 12/11/2021 12:0 0 PM CDT us Chris Bowen MD LABORATORY Final Result Performing Organization Address [facility] Co de Phone Number [facility] [address] [place] [address], [place] [phone] * FREE T3 (12/11/2021 12:00 PM CDT) FREE T3 2.7 2.2 - 3.9 PG/ML 12/11/2021 8:20 PM CDT [facility] 12/11/2021 12:0 0 PM CDT us Chris Bowen MD LABORATORY Final Result Performing Organization Address [facility]/ZIP Co de Phone Number [facility] [address] [place] [address], [place] [phone] * MCGINNIS (SM) ANTIBODY (12/11/2021 12:00 PM CDT) SM ANTIBODY 1.2 U/mL 12/13/2021 1:19 PM CDT [facility] Comment: NEGATIVE: <7 U/mL EQUIVOCAL: 7 to 10 u/mL POSITIVE: >10 U/mL Autoantibodies to Mcginnis (Sm) antigen are found in 30% of patients with systemic lupus erythematosus and are highly specific for this disease. 12/11/2021 12:0 0 PM CDT us Chris Bowen MD LABORATORY Final Result Performing Organization Address [facility]/ZIP Co de Phone Number [facility] [address] [place] [address], [phone] * THYROID STIM HORMONE, TSH (12/11/2021 12:00 PM CDT) Pathologist [facility] TSH 2.150 0.358 - 3.740 uIU/ML 12/11/2021 8:20 PM CDT [facility] 12/11/2021 12:0 0 PM CDT us Chris Bowen MD LABORATORY Final Result Performing Organization Address [facility]/ZIP Co de Phone Number [facility] [address] [place] [address], [phone] * (ABNORMAL) ANGIOTENSIN CONVERTING ENZYME, SERUM (12/11/2021 12:00 PM CDT) CLAUDIA S/P/B 5(L) 9 - 67 U/L 12/14/2021 8:21 PM CDT [facility] Comment: Test Performed by Jesse Vidales, [employer] [facility], [address] [place] [address] Grzegorz Gomez M.D., Ph.D., Director of Laboratories , [place] [id number] 12/11/2021 12:0 0 PM CDT us Chris Bowen MD LABORATORY Final Result [facility] [address] [place] [address], [place] [phone] * COMPLEMENT C3 (12/11/2021 12:00 PM CDT) COMPLEMENT C3 137.0 90.0 - 180.0 MG/DL 12/11/2021 8:20 PM CDT [facility] 12/11/2021 12:0 0 PM CDT us Chris Bowen MD LABORATORY Final Result Performing Organization Address City/[facility] Co de Phone Number [facility] [address] [place] [address], [place] [phone] * URINALYSIS (12/11/2021 12:00 PM CDT) COLOR (U) COLORLESS 12/11/2021 7:10 PM CDT [facility] TRANSPARENCY CLEAR 12/11/2021 7:10 PM CDT [facility] SPECIFIC GRAVITY (U) 1.010 1.002 - 1.035 12/11/2021 7:10 PM CDT [facility] U PH 5.0 5 - 8 12/11/2021 7:10 PM CDT [facility] PROTEIN (U) NEGATIVE NEGATIVE 12/11/2021 7:10 PM CDT [facility] URINE GLUCOSE NEGATIVE NEGATIVE MG/DL 12/11/2021 7:10 PM CDT [facility] KETONES MG/DL (U) NEGATIVE NEGATIVE 12/11/2021 7:10 PM CDT [facility] BILIRUBIN (U) NEGATIVE NEGATIVE 12/11/2021 7:10 PM CDT [facility] BLOOD (U) NEGATIVE NEGATIVE 12/11/2021 7:10 PM CDT [facility] NITRITES NEGATIVE NEGATIVE 12/11/2021 7:10 PM CDT [facility] UROBILINOGEN NORMAL 0 - 1 EU/DL 12/11/2021 7:10 PM CDT [facility] LEUKOCYTES (U) NEGATIVE NEGATIVE 12/11/2021 7:10 PM CDT [facility] RBC/HPF NONE 0 - 3 /HPF 12/11/2021 7:10 PM CDT [facility] WBC/HPF <1 0 - 6 /HPF 12/11/2021 7:10 PM CDT [facility] BACTERIA (U) NONE /HPF 12/11/2021 7:10 PM CDT [facility] SQUAMOUS EPITHELIALS <1 12/11/2021 7:10 PM CDT [facility] HYALINE CASTS 15 12/11/2021 7:10 PM CDT [facility] URINE SPECIMEN / Unknown 12/11/2021 12:00 PM CDT us Chris Bowen MD URINE ORDERABLES Final Result Performing Organization Address [facility] Co de Phone Number [facility] [address] [place] [address], [phone] * (ABNORMAL) C-REACTIVE PROTEIN (12/11/2021 12:00 PM CDT) C-REACTIVE PROTEIN 1.55(H) <0.80 mg/dL 12/11/2021 8:20 PM CDT [facility] 12/11/2021 12:0 0 PM CDT us Chris Bowen MD LABORATORY Final Result Performing Organization Address City/[facility]/ZIP Co de Phone Number [facility] [address] [place] [phone], [phone] * CYCLIC CITRULLINATED PEPTIDE (CCP)ANTIBODY(IGG) (12/11/2021 12:00 PM CDT) [facility] [address] CITRULLINE PEPTIDE ANTIBODY <16 <20 Units 12/16/2021 10:03 PM CDT [facility] Comment: Negative: ? <20 Weak Positive: ?20 - 39 Moderate Positive: ?40 - 59 Strong Positive: ?>59 Test Performed by Jesse Vidales, [facility], [address] [place] [address] Grzegorz Gomez M.D., Ph.D., Director of Laboratories , [facility] [id number] 12/11/2021 12:0 0 PM CDT Chris Bowen MD LABORATORY Final Result [facility] [address] [address], [place] [phone] * ANTINUCLEAR ANTIBODY WI RFX (12/11/2021 12:00 PM CDT) [facility] [address] ALLYSON 0.2 12/13/2021 1:19 PM CDT [facility] Comment: NEGATIVE: <0.7 RATIO ALLYSON PROFILE AND TITER NOT PERFORMED THE ALLYSON SCREEN TESTS FOR THE FOLLOWING ANTIBODIES BY EIA: SSA1 (RO), SSB1 (LA), MCGINNIS, SCL70, JO1, CENTROMERE, BLUE CRABBER HISTONE MUST BE ORDERED SEPARATELY DNA (DS) ANTIBODY 1.5 IU/ML 022 1:19 PM CDT [facility] Comment: NEGATIVE: <10 IU/mL EQUIVOCAL: 10 to 15 IU/mL POSITIVE: >15 IU/mL THIS QUANTITATIVE ASSAY IS CALIBRATED TO THE [employer]'S WO/80 STANDARD. THE LEVEL OF dsDNA AUTOANTIBODY GERERALLY CORRELATES WITH THE LEVEL OF DISEASE ACTIVITY IN SYSTEMIC LUPUS ERYTHMATOSUS 12/11/2021 12:0 0 PM CDT us Chris Bowen MD LABORATORY Final Result Performing Organization Address [facility]/ZIP Co de Phone Number [facility] [address] [place] [address], [phone] * COMPLEMENT C4 (12/11/2021 12:00 PM CDT) COMPLEMENT C4 38.5 10.0 - 40.0 MG/DL 12/11/2021 8:20 PM CDT [facility] 12/11/2021 12:0 0 PM CDT us Chris Bowen MD LABORATORY Final Result Performing Organization Address [facility] de Phone Number [facility] [address] [place] [address], [phone] * (ABNORMAL) SED RATE, ERYTHROCYTE (ESR,WSR) (12/11/2021 12:00 PM CDT) ESR 35(H) 0 - 20 MM/HR 12/11/2021 7:13 PM CDT [facility] 12/11/2021 12:0 0 PM CDT us Chris Bowen MD LABORATORY Final Result Performing Organization Address [facility] Co de Phone Number [facility] [address] [place] [address], [phone] * (ABNORMAL) COMPREHENSIVE METABOLIC PANEL (12/11/2021 12:00 PM CDT) SODIUM S/P/B 134(L) 136 - 145 MMOL/L 12/11/2021 8:20 PM CDT [facility] POTASSIUM S/P/B 4.6 3.5 - 5.1 MMOL/L 12/11/2021 8:20 PM CDT [facility] CHLORIDE S/P/B 101 98 - 107 MMOL/L 12/11/2021 8:20 PM CDT [facility] CO2 26.6 21.0 - 32.0 MMOL/L 12/11/2021 8:20 PM CDT [facility] GLUCOSE 101 74 - 106 MG/DL 12/11/2021 8:20 PM CDT [facility] BUN 49(H) 7 - 18 MG/DL 12/11/2021 8:20 PM CDT [facility] CREATININE S/P/B 1.95(H) 0.55 - 1.02 MG/DL 12/11/2021 8:20 PM CDT [facility] CALCIUM S/P/B 9.7 8.5 - 10.1 MG/DL 12/11/2021 8:20 PM CDT [facility] BILIRUBIN TOTAL S/P/B 1.1(H) 0.2 - 1.0 MG/DL 12/11/2021 8:20 PM CDT [facility] ALKALINE PHOSPHATASE S/P/B 96 55 - 142 U/L 12/11/2021 8:20 PM CDT [facility] AST 17 15 - 37 U/L 12/11/2021 8:20 PM CDT [facility] ALT 26 13 - 56 U/L 12/11/2021 8:20 PM CDT [facility] TOTAL PROTEIN S/P/B 7.8 6.4 - 8.2 G/DL 12/11/2021 8:20 PM CDT [facility] ALBUMIN S/P/B 4.4 3.4 - 5.0 G/DL 12/11/2021 8:20 PM CDT [facility] ANION GAP 6.4 5.0 - 15.0 MMOL/L 12/11/2021 8:20 PM CDT [facility] OSMOLALITY (CALC) 291 MOSM/KG 022 8:20 PM CDT [facility] Comment:REFERENCE RANGE NOT ESTABLISHED EGFR NON-AFR. AMER. 26(L) >90 ML/MIN/1. 73 M2 12/11/2021 8:20 PM CDT [facility] EGFR AFR. AMER. 30(L) >90 ML/MIN/1. 73 M2 12/11/2021 8:20 PM CDT [facility] GFR NOTES GFR REFERENCE S: 12/11/2021 8:20 PM CDT [facility] Comment: THE ESTIMATED GFR IS [...] CDT Chris Bowen MD LABORATORY Final Result [facility] [address] [place] [address], [phone] * (ABNORMAL) CBC W/DIFF AUTOMATED (12/11/2021 12:00 PM CDT) WBC 10.9(H) 4.0 - 10.8 x10'3/uL 12/11/2021 7:09 PM CDT [facility] RBC 4.28 4.10 - 5.40 x10'6/uL 12/11/2021 7:09 PM CDT [facility] HGB 12.5 12.0 - 16.0 G/DL 12/11/2021 7:09 PM CDT [facility] HCT 38.5 36.0 - 47.0 % 12/11/2021 7:09 PM CDT [facility] MCV 90.0 78.0 - 100.0 FL 12/11/2021 7:09 PM CDT [facility] MCH 29.2 27.0 - 31.0 PG 12/11/2021 7:09 PM CDT [facility] MCHC 32.5(L) 33.0 - 36.0 G/DL 12/11/2021 7:09 PM CDT [facility] RDW 14.3 11.5 - 14.5 % 12/11/2021 7:09 PM CDT [facility] PLT 303 150 - 350 x10'3/uL 12/11/2021 7:09 PM CDT [facility] MPV 10.6(H) 7.4 - 10.4 FL 12/11/2021 7:09 PM CDT [facility] ABS. NEUTROPHILS 5.77 1.60 - 8.30 x10'3/uL 12/11/2021 7:09 PM CDT [facility] ABS. LYMPHOCYTES 3.97 0.80 - 4.70 x10'3/uL 12/11/2021 7:09 PM CDT [facility] ABS. MONOCYTES 0.92 0.00 - 1.50 x10'3/uL 12/11/2021 7:09 PM CDT [facility] ABS. EOSINOPHILS 0.14 0.00 - 0.40 x10'3/uL 12/11/2021 7:09 PM CDT [facility] ABS. BASOPHILS 0.06 0.00 - 0.20 x10'3/uL 12/11/2021 7:09 PM CDT [facility] ABS. IMMATURE GRANULOCYTES 0.03 0.00 - 0.03 x10'3/uL 12/11/2021 7:09 PM CDT [facility] ABS. NUCLEATED RBC'S 0.00 0.0 x10'3/uL 12/11/2021 7:09 PM CDT [facility] 12/11/2021 12:0 0 PM CDT Chris Bowen MD LABORATORY Final Result [facility] [address] [place] [address], [phone] documented in this encounter Visit Diagnoses Not on filedocumented in this encounter Additional Health Concerns Assessment Noted Time PHQ-9 Depression Total Score: 0 10/11/19 22 10:50 AM RETORT OR CONDENSER PRESS OPERATOR documented as of this encounter Care Teams Belt Builder Helper Relationship Specialty Start Date End Date Sami Liriano DO [address] [place] [id number] PCP - General FAMILY PRACTICE 12/24/19 documented as of this encounter
--- OUTSIDE RECORDS SUMMARY | 2024-09-19 19:40 | XMS_ITS | Encounter Summary ---
Author Organization [facility] Address [address] [place] [address]. [place], [place] [address] [place] [address] Care Team Providers Care Euclid Operator Name Role Phone Sami Liriano DO Primary Care Provider + Reason for Visit * Reason Onset Date Comments Letter 10/31/2021 Encounter Details Date Type Department Care Team (Late st Contact Info) Description 10/31/2021 Telephone [facility] Family & Internal Medicine [place] [phone] [place] [address] Sami Liriano DO [facility] [place] [address] Letter Social History Tobacco Use [...] on file Legal Sex Female 12:43 PM INSURANCE CLAIM REPRESENTATIVE Gender Identity Female 12/18/2021 6:31 AM [...] Coronavirus / COVID-19? Yes 10/19/2021 1:15 PM INSURANCE CLAIM REPRESENTATIVE documented as of this encounter Progress Notes * Radha Oglesby MA - 11/01/2021 10:02 AM CST Letter done. RANCE CLAIM REPRESENTATIVE * JENNIFER Davila - 11/01/2021 9:08 AM CST OK for letter RANCE CLAIM REPRESENTATIVE * Poppy Alas - 10/31/2021 10:45 AM CST Patient needing return to work letter for Saturday11/21/21. Would like a letter and she can get thatoff mychart. RANCE CLAIM REPRESENTATIVE documented in this encounter Plan of Treatment Upcoming Encounters Date Type Department Care Team (Late st Contact Info) Description 10/09/2024 9:30 AM INSURANCE CLAIM REPRESENTATIVE Office Visit [facility] [phone] Carlos Farris MD [address] [facility] [place] [address] 11/02/2024 10:20 AM INSURANCE CLAIM REPRESENTATIVE Office Visit [facility] Family & Internal Medicine - [address] [phone] Sami Liriano DO [address] [place] [address] documented as of this encounter Visit Diagnoses Not on filedocumented in this encounter Additional Health Concerns Infection Onset Date Last Indicated Resolved Time COVID-19 Confirmed 10/11/2021 10/11/2021 2 12:35 AM INSURANCE CLAIM REPRESENTATIVE Assessment Noted Time PHQ-9 Depression Total Score: 0 10/11/19 22 10:50 AM INSURANCE CLAIM REPRESENTATIVE documented as of this encounter Care Teams Euclid Operator Relationship Specialty Start Date End Date Sami Liriano DO [address] [place] [id number] PCP - General FAMILY PRACTICE 12/24/19 documented as of this encounter
--- OUTSIDE RECORDS SUMMARY | 2024-09-19 19:41 | XMS_ITS | Encounter Summary ---
Author Organization [facility] Address [address] [place] [address]. [place], [place] [address] [place] [address] Care Team Providers Care Dial Polisher Name Role Phone Sami Gimenez DO Primary Care Provider + Reason for Visit * Reason Onset Date Comments Follow Up Call 10/16/2021 Encounter Details Date Type Department Care Team (Late st Contact Info) Description 10/16/2021 Telephone [facility] Medical [facility] Family & Internal Medicine [facility] [address] [place] [address] Sami Gimenez DO [facility] [place] [place] [address] Follow Up Call Social History [...] on file Legal Sex Female 12:43 PM DIET TECH Gender Identity Female 12/18/2021 6:31 AM CDT Sexual Orientation Straight 01/15/2022 6: 11 AM CDT 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 Unable to assess 10/11/2021 1:32 PM DIET TECH documented as of this encounter Progress Notes * Radha Clinton MA - 10/16/2021 1:36 PM CSTAddended by: RADHA CLINTON on: 10/16/2021 01:36 PM Modules accepted: Orders TECH * Radha Clinton MA - 10/16/2021 1:35 PM CST Patient notified and v/u TECH * Sami Gimenez DO - 10/16/2021 11:47 AM CST Do a repeat CXR in 1 week from ER exam; otherwise, continue current meds. TECH * Deb Varela RN - 10/16/2021 8:36 [...] Please advise Allergies- Penicillins, Sulfa antibiotics Pharmacy- [facility]-10/16/21 TECH TECH documented in this encounter Plan of Treatment Upcoming Encounters Date Type Department Care Team (Late st Contact Info) Description 10/09/2024 9:30 AM DIET TECH Office Visit [facility] [phone] Carlos Farris MD [address] [facility] [address] [place] [address] 11/02/2024 10:20 AM DIET TECH Office Visit [facility] Internal Medicine - [address] [phone] Sami Gimenez DO [address] [place] [id number] documented as of this encounter Results * XR CHEST PA+LAT (10/19/2021 1:25 PM DIET TECH) Anatomical Region Laterality Modality Chest Radiographic Jody ging 10/19/2021 1:34 PM DIET TECH Impressions 10/19/2021 1:39 PM DIET TECH IMPRESSION: Interval near complete resolution of previously seen bilateral lung opacities consistent with resolving COVID pneumonia. Ordered By: SAMI GIMENEZ Interpreted By: Abner Zamora MD, 10/19/2021 1:34 PM Narrative 10/19/2021 1:39 PM DIET TECH EXAM DESCRIPTION: Chest 2 views EXAM TIME [...] COVID-19 Confirmed 10/11/2021 10/11/2021 2 12:35 AM DIET TECH Assessment Noted Time PHQ-9 Depression Total Score: 0 10/11/19 22 10:50 AM DIET TECH documented as of this encounter Care Teams Dial Polisher Relationship Specialty Start Date End Date Sami Gimenez DO [address] [place] [id number] PCP - General FAMILY PRACTICE 12/24/19 documented as of this encounter
--- OUTSIDE RECORDS SUMMARY | 2024-09-19 19:41 | XMS_ITS | Encounter Summary ---
Author Organization [facility] Address [facility]6 [facility]. [place], [place] [address] [place] [address] Care Team Providers Care Gear Hobber Name Role Phone Sami Liriano Primary Care [...] on file Legal Sex Female 12:43 PM COMMUNITY PROGRAM ASSISTANT Gender Identity Female 12/18/2021 6:31 AM [...] COVID-19? No / Unsure 08/07/2021 9:32 AM COMMUNITY PROGRAM ASSISTANT documented as of this encounter Plan of Treatment Upcoming Encounters Date Type Department Care Team (Late st Contact Info) Description 10/09/2024 9:30 AM COMMUNITY PROGRAM ASSISTANT Office Visit [facility] [phone] Carlos Farris MD Three [facility] [address] [place] [address] 11/02/2024 10:20 AM COMMUNITY PROGRAM ASSISTANT Office Visit [facility] Family & Internal Medicine - [address] [phone] Sami Liriano DO [address] [place] [address] documented as of this encounter Visit Diagnoses Not on filedocumented in this encounter Additional Health Concerns Assessment Noted Time PHQ-9 Depression Total Score: 5 06/22/20 21 10:07 AM CDT documented as of this encounter Care Teams Gear Hobber Relationship Specialty Start Date End Date Sami Liriano DO [address] [place] [address] PCP - General FAMILY PRACTICE 12/24/19 documented as of this encounter
--- OUTSIDE RECORDS SUMMARY | 2024-09-19 19:41 | XMS_ITS | Encounter Summary ---
Author Organization [facility] Address [address] [place] [address]. [place], [place] [address] [place] [address] Care Team Providers Care Barrel Endshake Adjuster Name Role Phone Sami Liriano DO Primary Care Provider + Reason for Visit * Reason Onset Date Comments Lab Results 07/19/2021 Encounter Details Date Type Department Care Team (Late st Contact Info) Description 07/19/2021 Telephone [facility] Family & Internal Medicine [facility] [address] [place] [address] Sami Liriano DO [facility] [place] [address] Lab Results Social History Tobacco [...] on file Legal Sex Female 12:43 PM SHAREPOINT MANAGER Gender Identity Female 12/18/2021 6:31 AM CDT Sexual Orientation Straight 01/15/2022 6: 11 AM CDT 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 Not [...] st Contact Info) Description 10/09/2024 9:30 AM SHAREPOINT MANAGER Office Visit [facility]-[address] [phone] Carlos Farris MD [facility] [address] Suite [facility] [place] [address] 11/02/2024 10:20 AM SHAREPOINT MANAGER Office Visit [facility] Family & Internal Medicine - [address] [phone] Sami Liriano DO [address] [place] [address] documented as of this encounter Visit Diagnoses Not on filedocumented in this encounter Additional Health Concerns Assessment Noted Time PHQ-9 Depression Total Score: 5 06/22/20 21 10:07 AM CDT documented as of this encounter Care Teams Barrel Endshake Adjuster Relationship Specialty Start Date End Date Sami Liriano DO [address] [place] [address] PCP - General FAMILY PRACTICE 12/24/19 documented as of this encounter
--- OUTSIDE RECORDS SUMMARY | 2024-09-19 19:41 | XMS_ITS | Encounter Summary ---
Author Organization [facility] Address [address] [place] [address]. [place], [place] [address] [place] [address] Care Team Providers Care Scrap Iron Cutter Name Role Phone Sami Liriano DO Primary Care Provider + Reason for Visit * Reason Onset Date Comments Results 09/25/2021 Encounter Details Date Type Department Care Team (Late st Contact Info) Description 09/25/2021 Telephone [facility] Medical Group Family & Internal Medicine [id number] [place] [phone] Sami Liriano DO [address] [place] [address] Results Social History Tobacco Use Types [...] on file Legal Sex Female 12:43 PM RULING 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 Gender Identity Female 12/18/2021 6:31 [...] COVID-19? No / Unsure 09/19/2021 9:43 AM RULING 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 documented as of this encounter Progress Notes * Radha Oglesby MA - 09/25/2021 10:46 AM CST Patient notified and v/u NG 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 * Radha Oglesby MA - 09/25/2021 10:46 AM CST ----- Message from Sami Liriano DO sent at 09/24/2021 10:05 PM RULING 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 ----- Labs are notably improved. Please ensure pt has returned to only one potassium tab daily. Can recheck at next OV. NG 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 documented in this encounter Plan of Treatment Upcoming Encounters Date Type Department Care Team (Late st Contact Info) Description 10/09/2024 9:30 AM RULING 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 Office Visit [facility]-[address] [phone] Carlos Farris MD [address] [facility] [address] [place] [address] 11/02/2024 10:20 AM RULING 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 Office Visit [facility] Medical Group Family & Internal Medicine - [address] [phone] Sami Liriano DO [address] [place] [address] documented as of this encounter Visit Diagnoses Not on filedocumented in this encounter Additional Health Concerns Assessment Noted Time PHQ-9 Depression Total Score: 5 06/22/20 21 10:07 AM CDT documented as of this encounter Care Teams Scrap Iron Cutter Relationship Specialty Start Date End Date Sami Liriano DO [address] [place] [address] PCP - General FAMILY PRACTICE 12/24/19 documented as of this encounter
--- OUTSIDE RECORDS SUMMARY | 2024-09-19 19:41 | XMS_ITS | Encounter Summary ---
Author Organization [facility] Address [facility]. [place], [place] [address] [place] [address] Care Team Providers Care Postpartum Nurse Name Role Phone RomeofroylanSami lozoya Nicole AGUIAR Primary Care Provider + Reason for Referral * Imaging (Routine) - Closed Specialty Diagnoses / Procedures Referred By Shereen benton Referred To Contact RADIOLOGY Diagnoses Sleep disturbance Edema SOB (shortness of breath) High blood pressure MOR (obstructive sleep apnea) Procedures NM EXER NUC STRESS TEST 2DAY NM EXER NUC STRESS TEST 1DAY Cecilio Dewitt MD [address] [address] Phone: tel: fax: Referral ID Status Reason Start Date Expiration Date Visits Re quested Visits Authorized [id number] Closed 06/16/2021 07/17/2022 2 2 * Sleep Lab (Routine) - Closed Specialty Diagnoses / Procedures Referred By Shereen benton Referred To Contact Cardiology Diagnoses Sleep disturbance Edema SOB (shortness of breath) High blood pressure MOR (obstructive sleep apnea) Procedures Diagnostic PSG (19804, 43408) Cecilio Dewitt MD 3 [facility] [address] [place] [address] Phone: tel: fax: [facility] ld [address] [place] [address] Phone: tel: fax: Referral ID Status Reason Start Date Expiration Date Visits Re quested Visits Authorized [id number] Closed 06/16/2021 09/21/2021 1 1 * Imaging (Routine) - Closed Specialty Diagnoses / Procedures Referred By Contac t Referred To Contact RADIOLOGY Diagnoses Sleep disturbance Edema SOB (shortness of breath) High blood pressure MOR (obstructive sleep apnea) Procedures USV VENOUS REFLUX LOW HAN Cecilio Dewitt MD 3 [facility] [address] [place] [address] Phone: tel: fax: Referral ID Status Reason Start Date Expiration Date Visits Re quested Visits Authorized [id number] Closed 06/16/2021 07/17/2022 1 1 Encounter Details Date Type Department Care Team (Late st Contact Info) Description 06/16/2021 Orders Only [facility] THREE [facility], [address] [address] Cecilio Dewitt MD [address] [phone] Social History Tobacco Use Types [...] on file Legal Sex Female 12:43 PM PIT CLERK Gender Identity Female 12/18/2021 6:31 AM CDT Sexual Orientation Straight 01/15/2022 6: 11 AM CDT 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 Not on file [...] st Contact Info) Description 10/09/2024 9:30 AM PIT CLERK Office Visit [facility] [phone] Carlos Farris MD [facility] [address] [place] [address] 11/02/2024 10:20 AM PIT CLERK Office Visit [facility] Medical Group Family & Internal Medicine [address] [phone] Sami Liriano DO [address] [place], [place] [phone] documented as of this encounter Results * NM EXER NUC STRESS TEST 2DAY (07/17/2021 12:39 PM CDT) Anatomical Region Laterality Modality Cardiac Nuclear Medicine 07/17/2021 10:4 9 AM CDT Narrative 07/17/2021 12:42 PM CDT ? Myocardial Perfusion Imaging ? Pat.Name: ??DAYAN, HAIR L ?Pat.ID: ?[id number] ? St.Date: ?? 07/17/2021 ?Refer.MD: ??Heri ? Exam Time: 10:49:00 AM ? Study Type:KATIE NC HT MUSCLE IMAGE SPECT MULTI Height: ?60in ?Weight: ?250lb ? BSA: ? 2.05 m2 ?Age: ??1955,66Y ? Sex: ? FEMALE ?Sonogrphr: Krystyna Merrill, AGRICULTURAL ECONOMIST ? Pat. Stat.:Outpatient ? Reason for Study: [...] ?O2 Sat ? 100 % Max RPP ?54940 ? Symptoms and Complications: Terminated Protocol completed [...] Myocardial Perfusion Imaging Pat.Name: HAIR SARGENT Pat.ID: [id number] .Date: 07/17/2021 Refer.MD: Heri Exam Time: 10:49:00 [...] 150/80 O2 Sat 100 % Max RPP 52865 Symptoms and Complications: Terminated Protocol completed Symptoms [...] ? VASCULAR LAB Pat.Name: ??HAIR SARGENT ?Pat.ID: ?[id number] ? St.Date: ?? 07/17/2021 ?Refer.: ??Sami Liriano [...] EXTREMITY VASCULAR LAB Pat.Name: LEOBARDOHAIR Farris Pat.ID: [id number] .Date: 07/17/2021 Refer.MD: Sami Liriano Exam Time: [...] AM Crystal Ward M.D. Cecilio Dewitt MD [place] Final Result * Diagnostic PSG (04160, 22388) (07/01/2021 8:00 PM CDT) Narrative [facility] - 07/01/2021 8:00 PM CDT Neto Shelby MD ? 07/05/2021 ??2:38 PM [facility] [place] SPLI NIGHT POLYSOMNOGRAM INTERPRETATION PATIENT NAME: [...] snoring and other sleep-related issues, such as PROTEIN PURIFICATION SCIENTIST depressants, especially at bedtime. This document was electronically signed by: Neto Shelby M.D. on 07/05/2021 at 9:08 AM. us Cecilio Dewitt MD SLEEP CENTER ORDERABLES Final Result [facility] 3 [place] [address], [place] [phone] documented in this encounter Visit Diagnoses Diagnosis [...] documented as of this encounter Care Teams Postpartum Nurse Relationship Specialty Start Date End Date Sami Liriano DO [address] [place] [address] PCP - General FAMILY PRACTICE 12/24/19 documented as of this encounter
--- OUTSIDE RECORDS SUMMARY | 2024-09-19 19:41 | XMS_ITS | Encounter Summary ---
Author Organization [facility] Address [address] [place] [address]. [place], [place] [address] [place] [address] Care Team Providers Care Camp Advisor Name Role Phone Sami Liriano Primary Care Provider + Reason for Visit * Reason Comments Sleep Study (SCAN) Encounter Details Date Type Department Care Team ([facility] Contact Info) Description 07/01/2021 Scan HEALTH INFO [...] on file Legal Sex Female 12:43 PM EVP GLOBAL MULTIMEDIA SALES Gender Identity Female 12/18/2021 6:31 AM [...] st Contact Info) Description 10/09/2024 9:30 AM EVP GLOBAL MULTIMEDIA SALES Office Visit [facility] [phone] Carlos Farris MD Three [facility] [address] [place] [address] 11/02/2024 10:20 AM EVP GLOBAL MULTIMEDIA SALES Office Visit [facility] Medical Group Family & Internal Medicine - [address] [phone] Sami Liriano DO [address] [place] [address] documented as of this encounter Procedures Procedure [...] Rule Out 10/06/2021 10/11/2021 10/11/2021 8:45 AM EVP GLOBAL MULTIMEDIA SALES COVID-19 Rule Out 10/11/2021 10/11/2021 10/12/2021 1:13 AM EVP GLOBAL MULTIMEDIA SALES COVID-19 Confirmed 10/11/2021 10/11/2021 12:35 AM EVP GLOBAL MULTIMEDIA SALES Assessment Noted Time PHQ-9 Depression Total Score: 5 06/22/20 21 10:07 AM CDT documented as of this encounter Care Teams Camp Advisor Relationship Specialty Start Date End Date Sami Liriano DO [address] [place] [address] PCP - General FAMILY PRACTICE 12/24/19 documented as of this encounter
--- OUTSIDE RECORDS SUMMARY | 2024-09-19 19:41 | XMS_ITS | Encounter Summary ---
Author Organization [facility] Address [address] [place] [address]. [place], [place] [address] [place] [address] Care Team Providers Care Transportation Solutions Manager Name Role Phone Sami Liriano Primary Care Provider + Encounter Details Date Type Department Care Team (Late st Contact Info) Description 08/04/2021 Orders Only [facility] THREE [facility] [address] [place] [address] Erik Bowling MD 3 [facility] [address] [place] [address] Social History Tobacco Use Types [...] on file Legal Sex Female 12:43 PM CLEAT MAKER Gender Identity Female 12/18/2021 6:31 AM [...] COVID-19? No / Unsure 08/07/2021 9:32 AM CLEAT MAKER documented as of this encounter Plan of Treatment Upcoming Encounters Date Type Department Care Team (Late st Contact Info) Description 10/09/2024 9:30 AM CLEAT MAKER Office Visit [facility]-[address] [phone] Carlos Farris MD [facility] [address] [place] [address] 11/02/2024 10:20 AM CLEAT MAKER Office Visit [facility] Medical Group Family & Internal Medicine - [address] [phone] Sami Liriano DO [address] [place] [address] documented as of this encounter Visit Diagnoses Diagnosis Essential hypertension- Primary Unspecified essential hypertension Mixed hyperlipidemia documented in this encounter Additional Health Concerns Assessment Noted Time PHQ-9 Depression Total Score: 5 06/22/20 21 10:07 AM CDT documented as of this encounter Care Teams Transportation Solutions Manager Relationship Specialty Start Date End Date Sami Liriano DO [address] [place] [address] PCP - General FAMILY PRACTICE 12/24/19 documented as of this encounter
--- OUTSIDE RECORDS SUMMARY | 2024-09-19 19:41 | XMS_ITS | Encounter Summary ---
Author Organization [facility] Address [facility]6 [facility]. [place], [place] [address] [place] [address] Care Team Providers Care Commercial Administrator Name Role Phone Sami Liriano Primary Care [...] on file Legal Sex Female 12:43 PM GUEST ROOM ATTENDANT Gender Identity Female 12/18/2021 6:31 AM [...] st Contact Info) Description 10/09/2024 9:30 AM GUEST ROOM ATTENDANT Office Visit [facility]-[address] [phone] Carlos Farris MD Three [facility] [address] [place] [address] 11/02/2024 10:20 AM GUEST ROOM ATTENDANT Office Visit [facility] Medical Group Family & Internal Medicine - [address] [phone] Sami Liriano DO [address] [place] [address] documented as of this encounter Visit Diagnoses Not on filedocumented in this encounter Additional Health Concerns Assessment Noted Time PHQ-9 Depression Total Score: 5 06/22/20 21 10:07 AM CDT documented as of this encounter Care Teams Commercial Administrator Relationship Specialty Start Date End Date Sami Liriano DO [address] [place] [address] PCP - General FAMILY PRACTICE 12/24/19 documented as of this encounter
--- OUTSIDE RECORDS SUMMARY | 2024-09-19 19:41 | XMS_ITS | Encounter Summary ---
Author Organization [facility] Address [facility]6 [facility] [place], [place] [address] [place] [address] Care Team Providers Care Lab Courier Name Role Phone Sami Gimenez DO Primary Care Provider + Reason for Visit * Reason Comments COVID-19 positive at home indigo t , interested in monoclonal ab treatment Encounter Details Date Type Department Care Team (Late st Contact Info) Description 10/11/2021 12:00 PM CONCRETE PRODUCTS DISPATCHER Telemedicine [facility] Family & Internal Medicine [address] [place] [phone] Sami Gimenez DO [address] [place] [address] COVID-19 (positive at home test , [...] file Legal Sex Female 12:43 PM CONCRETE PRODUCTS DISPATCHER Gender Identity Female 12/18/2021 6:31 AM CDT [...] COVID-19? Unable to assess 10/11/2021 1:32 PM CONCRETE PRODUCTS DISPATCHER documented as of this encounter Progress Notes * Sami Gimenez, DO - 10/11/2021 12:00 PM CST Images from the original note were not included. GENERAL OFFICE VISIT Encounter Date: 10/11/2021 I introduced and identified myself, received verbal consent from the patient to proceed with this video visit and made the patient aware that the same confidentiality and information support project manager practices apply. The patient joined [...] by Joel Keenan MD at [facility] OR ??? EGD ??? HERNIA [...] on file Occupational History ??? 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 Smoking status: Former Smoker [...] daily in AM when fasting ??? Lancets (AudioTripTOUCH ULTRASOFT) lancets Check blood sugar once daily [...] results and coordinationof care. Sami Gimenez DO RETE PRODUCTS DISPATCHER documented in this encounter Plan of Treatment Upcoming Encounters Date Type Department Care Team (Late st Contact Info) Description 10/09/2024 9:30 AM CONCRETE PRODUCTS DISPATCHER Office Visit [facility] [phone] Carlos Farris MD Three [facility] Suite [facility] [place] [address] 11/02/2024 10:20 AM CONCRETE PRODUCTS DISPATCHER Office Visit [facility] Medical Group Family & Internal Medicine - [address] [phone] Sami Gimenez DO [address] [place] [address] documented as of this encounter Procedures Procedure Name Priority Date/Time Associated Diagnosis Comments CORONAVIRUS (COVID 19) PCR Routine 10/11/2021 8:46 AM CONCRETE PRODUCTS DISPATCHER Fever, unspecified fever cause Chills Cough CORONAVIRUS (COVID-19) INFLUENZA A & B ANTIGEN IA PANEL Routine 10/11/2021 Fever, unspecified fever cause Chills Cough documented in this encounter Results * XR CHEST PA+LAT (10/11/2021 1:42 PM CONCRETE PRODUCTS DISPATCHER) Anatomical Region Laterality Modality Chest Radiographic Jody ging 10/11/2021 1:46 PM CONCRETE PRODUCTS DISPATCHER Impressions 10/11/2021 1:47 PM CONCRETE PRODUCTS DISPATCHER IMPRESSION: 1) Abnormal groundglass opacities involving mid and lower lung bilaterally left greater than right consistent with Covid 19 related pneumonia. Ordered By: SAMI GIMENEZ Interpreted By: Jeramy Clifton MD, 10/11/2021 1:46 PM Narrative 10/11/2021 1:47 PM CONCRETE PRODUCTS DISPATCHER Examination: XR CHEST PA+LAT Exam time: 10/11/2021 [...] sult * (ABNORMAL) CORONAVIRUS (COVID 19) PCR ([facility]) (10/11/2021 8:46 AM CONCRETE PRODUCTS DISPATCHER) SPEC DESCRIPTION NASAL 10/11/19 8:47 AM CONCRETE PRODUCTS DISPATCHER [facility] CORONAVIRUS SARS COV 2 PCR (RESP) POSITIVE(AA ) NEGATIVE 10/12/2021 1:13 AM CONCRETE PRODUCTS DISPATCHER [facility] Comment: THE SARS-CoV-2 TEST HAS BEEN AUTHORIZED BY THE FDA UNDER AN EUA FOR USE BY AUTHORIZED LABORATORIES. PERFORMED BY NUCLEIC ACID AMPLIFICATION PCR FIRST TEST YES 10/11/2021 8:47 AM CONCRETE PRODUCTS DISPATCHER [facility] EMPLOYED IN HEALTHCARE NO 10/11/2021 8:47 AM [facility] SYMPTOMATIC DEFINED BY CDC YES 10/11/2021 8:47 AM [facility] DATE OF SYMPTOM ONSET 2021100510/11/2021 8:47 AM [facility] HOSPITALIZATION STATUS NO 10/11/2021 8:47 AM [facility] PATIENT IN ICU NO 10/11/2021 8:47 AM [facility] RESIDENT OF [facility] NO 10/11/2021 8:47 AM [facility] NASOPHARYNGEAL SWAB / Unknown 10/11/2021 8:46 AM CONCRETE PRODUCTS DISPATCHER Sami Gimenez DO MICROBIOLOGY - GENERAL O RDERABLES Final Result [facility] [address] [place] [address], * CORONAVIRUS (COVID-19) INFLUENZA A & B ANTIGEN IA PANEL (10/11/2021) CORONAVIRUS ANTIGEN IA NEGATIVE NEGATIVE [facility] INFLUENZA A NEGATIVE NEGATIVE [facility] INFLUENZA B NEGATIVE NEGATIVE [facility] Internal Control: VALID VALID [facility] NASAL STRUCTURE / Unknown 10/11/2021 Sami Gimenez DO MICROBIOLOGY - GENERAL O RDERABLES Final Result [facility] [address] [place] [address], documented in this encounter Visit Diagnoses Diagnosis Fever, unspecified fever cause- Primary Chills Chills (without fever) Cough Acute cystitis without hematuria Acute cystitis documented in this encounter Additional Health Concerns Infection Onset Date Last Indicated Resolved Time COVID-19 Rule Out 10/11/2021 10/11/2021 10/12/2021 1:13 AM CONCRETE PRODUCTS DISPATCHER Assessment Noted Time PHQ-9 Depression Total Score: 0 10/11/19 10:50 AM CONCRETE PRODUCTS DISPATCHER documented as of this encounter Care Teams Lab Courier Relationship Specialty Start Date End Date Sami Gimenez DO [address] [place] [address] PCP - General FAMILY PRACTICE 12/24/19 documented as of this encounter
--- OUTSIDE RECORDS SUMMARY | 2024-09-19 19:41 | XMS_ITS | Encounter Summary ---
Author Organization [facility] Address [address] [place] [address]. [place], [place] [id number] [place] [address] Care Team Providers Care Bag Presser Name Role Phone Sami Liriano DO Primary Care Provider + Reason for Visit * Reason Onset Date Comments Results 08/08/2021 Encounter Details Date Type Department Care Team (Late st Contact Info) Description 08/08/2021 Telephone [facility] Family & Internal Medicine [address] [place] [address] Sami Liriano DO [address] [place] [address] Results Social History Tobacco Use Types [...] on file Legal Sex Female 12:43 PM SULFONATION EQUIPMENT OPERATOR Gender Identity Female 12/18/2021 6:31 AM [...] COVID-19? No / Unsure 08/07/2021 9:32 AM SULFONATION EQUIPMENT OPERATOR documented as of this encounter Progress Notes * Radha Oglesby MA - 08/08/2021 12:19 PM CST Patient notified and v/u ONATION EQUIPMENT OPERATOR * Radha Oglesby MA - 08/08/2021 12:15 PM CST ----- Message from Sami Liriano DO sent at 08/08/2021 7:28 AM SULFONATION EQUIPMENT OPERATOR ----- Potassium is still a bit low; kidney function did improve mildly. If pt is taking only 20 mg of furosemide, can stop entirely. (If taking 60 mg daily, then go down to 20 mg). Also, increase potassiumto 2 tablets daily for 2 weeks. Few other nonspecific findings we will recheck at next OV. ONATION EQUIPMENT OPERATOR documented in this encounter Plan of Treatment Upcoming Encounters Date Type Department Care Team (Late st Contact Info) Description 10/09/2024 9:30 AM SULFONATION EQUIPMENT OPERATOR Office Visit [facility] [phone] Carlos Farris MD Three [facility] [address] [facility] [place] [address] 11/02/2024 10:20 AM SULFONATION EQUIPMENT OPERATOR Office Visit [facility] Family & Internal Medicine - [address] [phone] [place] [address] [place] [address] documented as of this encounter Visit Diagnoses Diagnosis Overactive bladder Hypertonicity of bladder Hyperlipidemia Other and unspecified hyperlipidemia Essential hypertension Unspecified essential hypertension Type 2 diabetes mellitus without complication, without long-term current use of insulin ([facility]) Gastroesophageal reflux disease without esophagitis Esophageal reflux Bilateral lower extremity edema Edema documented in this encounter Additional Health Concerns Assessment Noted Time PHQ-9 Depression Total Score: 5 06/22/20 21 10:07 AM CDT documented as of this encounter Care Teams Bag Presser Relationship Specialty Start Date End Date Sami Liriano DO [address] [place] [address] PCP - General FAMILY PRACTICE 12/24/19 documented as of this encounter
--- OUTSIDE RECORDS SUMMARY | 2024-09-19 19:41 | XMS_ITS | Encounter Summary ---
Author Organization [facility] Address [facility]. [place], [place] [address] [place] [address] Care Team Providers Care Chainstitch Binder Name Role Phone Sami Liriano Primary Care Provider + Encounter Details Date Type Department Care Team (Late st Contact Info) Description 06/22/2021 9:40 AM CDT Laboratory Only [facility] Family & Internal Medicine [address] [phone] Social History Tobacco Use Types Packs/Day Years [...] on file Legal Sex Female 12:43 PM DAIRY FEED WORKER Gender Identity Female 12/18/2021 6:31 AM [...] st Contact Info) Description 10/09/2024 9:30 AM DAIRY FEED WORKER Office Visit [facility] [phone] Carlos Farris MD [address] [facility] [address] [place] [address] 11/02/2024 10:20 AM DAIRY FEED WORKER Office Visit [facility] Family & Internal Medicine - [address] [phone] Sami Liriano DO [address] [place] [phone] documented as of this encounter Procedures Procedure Name Priority Date/Time Associated Diagnosis Comments VENIPUNC ARM DRAW Routine 06/22/2021 9:4 1 AM CDT Routine general medical examination at a health care facility BASIC METABOLIC PANEL Routine 06/22/2021 9:41 AM CDT Routine general medical examination at a [facility] documented in this encounter Results * (ABNORMAL) BASIC METABOLIC PANEL (06/22/2021 9:41 AM CDT) SODIUM S/P/B 141 136 - 145 MMOL/L 06/22/2021 3:18 PM CDT [facility] POTASSIUM S/P/B 3.6 3.5 - 5.1 MMOL/L 06/22/2021 3:18 PM CDT [facility] CHLORIDE S/P/B 103 98 - 107 MMOL/L 06/22/2021 3:18 PM CDT [facility] CO2 29.3 21 - 32 MMOL/L 06/22/2021 3:18 PM [facility] GLUCOSE 128(H) 70 - 99 MG/DL 06/22/2021 3:18 PM [facility] BUN 25(H) 6 - 24 MG/DL 06/22/2021 3:18 PM [facility] CREATININE S/P/B 1.15(H) 0.55 - 1.02 MG/DL 06/22/2021 3:18 PM [facility] CALCIUM S/P/B 9.6 8.4 - 10.5 MG/DL 06/22/2021 3:18 PM [facility] ANION GAP 8.7 5 - 15 MMOL/L 06/22/2021 3:18 PM [facility] Comment:REFERENCE RANGE NOT ESTABLISHED OSMOLALITY (CALC) 298 MOSM/KG 06/22/2021 3:18 PM [facility] Comment:REFERENCE RANGE NOT ESTABLISHED EGFR NON-AFR. AMER. 49(L) >90 ML/MIN/1 .73 M2 06/22/2021 3:18 PM [facility] EGFR AFR. AMER. 57(L) >90 ML/MIN/1 .73 M2 06/22/2021 3:18 PM [facility] GFR NOTES THE ESTIMATED GFR IS CALCULATED USING THE 2009 CKD-EPI EQUATION. THE FOLLOWING CATEGORIES FOR GRADING RENAL FUNCTION ARE RECOMMENDED BY THE INTERNATIONAL SOCIETY OF NEPHROLOGY (KDIGO 2012 CLINICAL PRACTICE GUIDELINE). 06/22/2021 3:18 PM [facility] Comment: G1,NORMAL OR HIGH: >89 ml/min/1.73 m2 G2,MILDLY DECREASED: 60-89 ml/min/1.73 m2 G3A,MILDLY TO MODERATELY DECREASED: 45-59 ml/min/1.73 m2 G3B,MODERATELY TO SEVERELY DECREASED: 30-44 ml/min/1.73 m2 G4,SEVERELY DECREASED: 15-29 ml/min/1.73 m2 G5,KIDNEY FAILURE: <15 ml/min/1.73 m2 06/22/2021 9:41 AM CDT us Sami Liriano DO LABORATORY Final Re sult [facility] [address] [place] [address], [place] [phone] documented in this encounter Visit Diagnoses Diagnosis Routine general medical examination at a health care facility- Primary documented in this encounter Additional Health Concerns Assessment Noted Time PHQ-9 Depression Total Score: 5 06/22/20 21 10:07 AM CDT documented as of this encounter Care Teams Chainstitch Binder Relationship Specialty Start Date End Date Sami Liriano DO [address] [place] [address] PCP - General FAMILY PRACTICE 12/24/19 documented as of this encounter
--- OUTSIDE RECORDS SUMMARY | 2024-09-19 19:41 | XMS_ITS | Encounter Summary ---
Author Organization [facility] Address [address] [place] [address]. [place], [place] [address] [place] [address] Care Team Providers Care Veneer Measurer Name Role Phone Sami Liriano DO Primary Care Provider + Reason for Visit * Reason Comments Follow Up 1 month after starti ng DM medication Encounter Details Date Type Department Care Team (Late st Contact Info) Description 09/19/2021 9:40 AM LEAD CARPENTER Office Visit [facility] Family & Internal Medicine [phone] [place] [address] Sami Liriano DO [address] [place] [address] [phone] Follow Up (1 month after starting DM [...] on file Legal Sex Female 12:43 PM LEAD CARPENTER Gender Identity Female 12/18/2021 6:31 AM CDT Sexual Orientation Straight 01/15/2022 6: 11 AM CDT 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 No / Unsure 09/19/2021 9:43 AM LEAD CARPENTER documented as of this encounter Last Filed Vital Signs Vital Sign Reading Time Taken Comments Blood Pressure 124/60 09/19/2021 9:49 AM LEAD CARPENTER Pulse 86 09/19/2021 9:49 AM LEAD CARPENTER Temperature 36.7 ??C (98 ??F) 09/19/2021 9:49 AM LEAD CARPENTER Respiratory Rate 16 09/19/2021 9:49 AM LEAD CARPENTER Oxygen Saturation 98% 09/19/2021 9:49 AM LEAD CARPENTER Inhaled Oxygen Concentration - - Weight 110.6 kg (243 lb 12.8 oz) 09/19/2021 9:49 AM LEAD CARPENTER Height 153.7 cm (5' 0.5 ) 09/19/2021 9:49 AM LEAD CARPENTER Body Mass Index 46.83 09/19/2021 9:49 AM LEAD CARPENTER documented in this encounter Progress Notes * [...] Keenan MD at [facility] OR ??? EGD ??? HERNIA REPAIR [...] on file Occupational History ??? 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 Smoking status: Former Smoker [...] complication, without long-term current use of insulin ([facility]) Stage 3a chronic kidney disease ([facility]) - COMPREHENSIVE METABOLIC PANEL; Future - VENIPUNC ARM DRAW - CBC W/DIFF AUTOMATED; Future - CBC W/DIFF AUTOMATED - COMPREHENSIVE METABOLIC PANEL Hypokalemia - COMPREHENSIVE METABOLIC PANEL; Future - VENIPUNC ARM DRAW - CBC W/DIFF AUTOMATED; Future - CBC W/DIFF AUTOMATED - COMPREHENSIVE METABOLIC PANEL Need for prophylactic vaccination against Streptococcus pneumoniae (pneumococcus) - [72184] Pneumovax 23 (Pneumococcal) Discussion/Summary: Continue metformin. Will order labs as per above; continue furosemide cessation. Will give Pneumovax-23 today. Will have pt f/u in 3 months for reassessment. Pt v/u. Sami Liriano DO CARPENTER documented in this encounter Plan of Treatment Upcoming Encounters Date Type Department Care Team (Late st Contact Info) Description 10/09/2024 9:30 AM LEAD CARPENTER Office Visit [facility]-[address] [phone] Carlos Farris MD [address] [facility] [address] [place] [address] 11/02/2024 10:20 AM LEAD CARPENTER Office Visit [facility] Medical Group Family & Internal Medicine [phone] [place] [address] Sami Liriano DO [address] [place] [address] documented as of this encounter Procedures Procedure Name Priority Date/Time Associated Diagnosis Comments COMPREHENSIVE METABOLIC PANEL Routine 09/19/2021 10:26 AM LEAD CARPENTER Stage 3a chronic kidney disease (CMS/HCC HHS/HCC) Hypokalemia CBC W/DIFF AUTOMATED Routine 09/19/2021 10:26 AM LEAD CARPENTER Stage 3a chronic kidney disease (CMS/HCC HHS/HCC) Hypokalemia VENIPUNC ARM DRAW Routine 09/19/2021 10: 17 AM LEAD CARPENTER Stage 3a chronic kidney disease (CMS/HCC HHS/HCC) Hypokalemia documented in this encounter Results * (ABNORMAL) CBC W/DIFF AUTOMATED (09/19/2021 10:26 AM LEAD CARPENTER) [facility] WBC 10.2 4.0 - 10.8 x10'3/uL 09/19/2021 3:19 PM LEAD CARPENTER [facility] RBC 4.30 4.10 - 5.40 x10'6/uL 09/19/2021 3:19 PM LEAD CARPENTER [facility] HGB 12.2 12.0 - 16.0 G/DL 09/19/2021 3:19 PM LEAD CARPENTER [facility] HCT 38.0 36.0 - 47.0 % 09/19/2021 3:19 PM LEAD CARPENTER [facility] MCV 88.4 78.0 - 100.0 FL 09/19/2021 3:19 PM LEAD CARPENTER [facility] MCH 28.4 27.0 - 31.0 PG 09/19/2021 3:19 PM [facility] MCHC 32.1(L) 33.0 - 36.0 G/DL 09/19/2021 3:19 PM [facility] RDW 14.5 11.5 - 14.5 % 09/19/2021 3:19 PM [facility] PLT 261 150 - 350 x10'3/uL 09/19/2021 3:19 PM [facility] MPV 10.2 7.4 - 10.4 FL 09/19/2021 3:19 PM [facility] DIFFERENTIAL TYPE AUTOMATED DIFFERENTIAL 09/19/2021 3:20 PM [facility] NEUTROPHILS % 63.8 % 09/19/2021 3:20 PM [facility] LYMPHOCYTES % 28.2 % 09/19/2021 3:20 PM [facility] MONOCYTES % 6.5 % 09/19/2021 3:20 PM [facility] EOSINOPHILS % 1.1 % 09/19/2021 3:20 PM [facility] BASOPHILS % 0.3 % 09/19/2021 3:20 PM [facility] IMMATURE GRANS % 0.1 % 09/19/2021 3:20 PM [facility] ABS. NEUTROPHILS 6.53 1.60 - 8.30 x10'3/uL 09/19/2021 3:20 PM [facility] ABS. LYMPHOCYTES 2.88 0.80 - 4.70 x10'3/uL 09/19/2021 3:20 PM [facility] ABS. MONOCYTES 0.66 0.00 - 1.50 x10'3/uL 09/19/2021 3:20 PM [facility] ABS. EOSINOPHILS 0.11 0.00 - 0.40 x10'3/uL 09/19/2021 3:20 PM LEAD CARPENTER [facility] ABS. BASOPHILS 0.03 0.00 - 0.20 x10'3/uL 09/19/2021 3:20 PM LEAD CARPENTER [facility] ABS. IMMATURE GRANULOCYTES 0.01 0.00 - 0.03 x10'3/uL 09/19/2021 3:20 PM LEAD CARPENTER [facility] 09/19/2021 10:2 6 AM LEAD CARPENTER us Sami Liriano DO LABORATORY Final Re sult [facility] [place] [address] [place] [address], * (ABNORMAL) COMPREHENSIVE METABOLIC PANEL (09/19/2021 10:26 AM LEAD CARPENTER) SODIUM S/P/B 140 136 - 145 MMOL/L 09/19/2021 5:17 PM LEAD CARPENTER [facility] POTASSIUM S/P/B 4.8 3.5 - 5.1 MMOL/L 09/19/2021 5:17 PM LEAD CARPENTER [facility] CHLORIDE S/P/B 103 98 - 107 MMOL/L 09/19/2021 5:17 PM LEAD CARPENTER [facility] CO2 25.8 21 - 32 MMOL/L 09/19/2021 5:17 PM LEAD CARPENTER [facility] GLUCOSE 128(H) 70 - 99 MG/DL 09/19/2021 5:17 PM LEAD CARPENTER [facility] BUN 34(H) 6 - 24 MG/DL 09/19/2021 5:17 PM LEAD CARPENTER [facility] CREATININE S/P/B 1.21(H) 0.55 - 1.02 MG/DL 09/19/2021 5:17 PM LEAD CARPENTER [facility] CALCIUM S/P/B 10.0 8.4 - 10.5 MG/DL 09/19/2021 5:17 PM [facility] BILIRUBIN TOTAL S/P/B 0.9 0.2 - 1.0 MG/DL 09/19/2021 5:17 PM [facility] ALKALINE PHOSPHATASE S/P/B 87 55 - 142 U/L 09/19/2021 5:17 PM [facility] AST 15 15 - 37 U/L 09/19/2021 5:17 PM [facility] ALT 25 14 - 59 U/L 09/19/2021 5:17 PM [facility] TOTAL PROTEIN S/P/B 8.1 6.4 - 8.2 G/DL 09/19/2021 5:17 PM [facility] ALBUMIN S/P/B 4.4 3.4 - 5.0 G/DL 09/19/2021 5:17 PM [facility] ANION GAP 11.2 5 - 15 MMOL/L 09/19/2021 5:17 PM [facility] Comment:REFERENCE RANGE NOT ESTABLISHED OSMOLALITY (CALC) 299 MOSM/KG 09/19/2021 5:17 PM [facility] Comment:REFERENCE RANGE NOT ESTABLISHED EGFR NON-AFR. AMER. 46(L) >90 ML/MIN/1 .73 M2 09/19/2021 5:17 PM [facility] EGFR AFR. AMER. 53(L) >90 ML/MIN/1 .73 M2 09/19/2021 5:17 PM [facility] GFR NOTES THE ESTIMATED GFR IS CALCULATED USING THE 2009 CKD-EPI EQUATION. THE FOLLOWING CATEGORIES FOR GRADING RENAL FUNCTION ARE RECOMMENDED BY THE INTERNATIONAL SOCIETY OF NEPHROLOGY (KDIGO 2012 CLINICAL PRACTICE GUIDELINE). 09/19/2021 5:17 PM [facility] Comment: G1,NORMAL OR HIGH: >89 ml/min/1.73 m2 G2,MILDLY DECREASED: 60-89 ml/min/1.73 m2 G3A,MILDLY TO MODERATELY DECREASED: 45-59 ml/min/1.73 m2 G3B,MODERATELY TO SEVERELY DECREASED: 30-44 ml/min/1.73 m2 G4,SEVERELY DECREASED: 15-29 ml/min/1.73 m2 G5,KIDNEY FAILURE: <15 ml/min/1.73 m2 09/19/2021 10:2 6 AM LEAD CARPENTER Sami Liriano DO LABORATORY Final Re sult [facility] [address] [place] [address], documented in this encounter Visit Diagnoses Diagnosis Type 2 diabetes mellitus without complication, without long-term current use of insulin ([facility])- Primary Stage 3a chronic kidney disease ([facility]) Hypokalemia Hypopotassemia Need for prophylactic vaccination against Streptococcus pneumoniae (pneumococcus) Need for prophylactic vaccination against streptococcus pneumoniae (pneumococcus) documented in this encounter Additional Health Concerns Assessment Noted Time PHQ-9 Depression Total Score: 5 06/22/20 21 10:07 AM CDT documented as of this encounter Care Teams Veneer Measurer Relationship Specialty Start Date End Date Sami Liriano DO [address] [place] [address] PCP - General FAMILY PRACTICE 12/24/19 documented as of this encounter
--- OUTSIDE RECORDS SUMMARY | 2024-09-19 19:41 | XMS_ITS | Encounter Summary ---
Author Organization [facility] Address [address] [place] [address]. [place], [place] [address] [place] [address] Care Team Providers Care Animal Care Taker Name Role Phone Sami Liriano DO Primary Care Provider + Encounter Details Date Type Department Care Team (Latest Contact Info) Description 10/11/2021 - 10/11/2021 11:59 PM SENIOR QUALITY ENGINEER Hospital Encounter [facility] [address] [place] [address] Sami Liriano DO [address] [place] [address] Discharge Disposition: Home or Self [...] file Legal Sex Female 12:43 PM SENIOR QUALITY ENGINEER Gender Identity Female 12/18/2021 6:31 [...] COVID-19? Unable to assess 10/11/2021 1:32 PM SENIOR QUALITY ENGINEER documented as of this encounter Medications at [...] complication, without long-term current use of insulin ([facility]) Check blood sugar once daily in AM [...] of major depressive disorder without prior episode ([facility]) TAKE 1 TABLET BY MOUTH EVERY DAY 90 tablet 1 09/20/2021 2 FUROSEMIDE 20 MG tabletIndications: Essential hypertension TAKE 1 TABLET BY MOUTH EVERY DAY 90 tablet 1 09/20/2021 2 Glucose Blood test stripIndications:T ype 2 diabetes mellitus without complication, without long-term current use of insulin ([facility]) Check blood sugar once daily in AM when fasting 100 strip 11 08/07/2021 4 Lancets (ONETOUCH ULTRASOFT) lancetsIndications :Type 2 diabetes mellitus without complication, without long-term current use of insulin ([facility]) Check blood sugar once daily in AM when fasting 1 each 11 08/07/2021 4 LISINOPRIL 40 MG tabletIndications: Essential hypertension TAKE 1 TABLET BY MOUTH EVERY DAY 90 tablet 1 09/20/2021 2 metFORMIN ER 500 MG 24 hr tabletIndications: Type 2 diabetes mellitus without complication, without long-term current use of insulin ([facility]) Take 1 tablet (500 mg total) by [...] Contact Info) Description 10/09/2024 9:30 AM SENIOR QUALITY ENGINEER Office Visit [facility]-[address] [phone] Carlos Farris MD [facility] Suite [facility] [place] [address] 11/02/2024 10:20 AM SENIOR QUALITY ENGINEER Office Visit [facility] Family & Internal Medicine - [place] [address] [place] [address] Sami Liriano DO [address] [place] [address] documented as of this encounter Visit Diagnoses Not on filedocumented in this encounter Additional Health Concerns Infection Onset Date Last Indicated Resolved Time COVID-19 Rule Out 10/06/2021 10/11/2021 10/11/2021 8:45 AM SENIOR QUALITY ENGINEER COVID-19 Rule Out 10/11/2021 10/11/2021 10/12/2021 1:13 AM SENIOR QUALITY ENGINEER Assessment Noted Time PHQ-9 Depression Total Score: 0 10/11/19 22 10:50 AM SENIOR QUALITY ENGINEER documented as of this encounter Care Teams Animal Care Taker Relationship Specialty Start Date End Date Sami Liriano DO [address] [place] [address] PCP - General FAMILY PRACTICE 12/24/19 documented as of this encounter
--- OUTSIDE RECORDS SUMMARY | 2024-09-19 19:41 | XMS_ITS | Encounter Summary ---
Author Organization [facility] Address [facility] [place], [place] [address] [place] [address] Care Team Providers Care Fireproof Door Maker Name Role Phone Sami Liriano Primary Care Provider + Encounter Details Date Type Department Care Team (Latest Contact Info) Description 07/17/2021 7:35 AM CDT Hospital Encounter [facility] Laboratory [address] [place] [address] Erik Bowling MD [address] [facility] [address] [place] [address] Discharge Disposition: Home or Self [...] file Legal Sex Female 12:43 PM LINING CUTTER Gender Identity Female 12/18/2021 6:31 AM [...] Contact Info) Description 10/09/2024 9:30 AM LINING CUTTER Office Visit [facility]-[address] [address] Carlos Farris MD [facility] [address] [place] [address] 11/02/2024 10:20 AM LINING CUTTER Office Visit [facility] Family & Internal Medicine - [address] [phone] Sami Liriano DO [address] [place] [address] documented as of this encounter Procedures Procedure Name Priority Date/Time Associated Diagnosis Comments PRO-BRAIN NATRIURETIC PEPTIDE Routine 07/17/2021 8:31 AM CDT Sleep disturbances Edema Shortness of breath HTN (hypertension) documented in this encounter Results * (ABNORMAL) PRO-BRAIN NATRIURETIC PEPTIDE (07/17/2021 8:31 AM CDT) PRO-B TYPE NATRIURETIC PEPTIDE 266(H) <125 PG/ML 07/17/2021 9:04 AM CDT [facility] Comment: CUT POINTS ESTABLISHED [...] CDT Erik Bowling MD LABORATORY Final Result [facility] [address] [place] [address], documented in this encounter Visit Diagnoses Diagnosis [...] documented as of this encounter Care Teams Fireproof Door Maker Relationship Specialty Start Date End Date Sami Liriano DO [address] [place] [address] PCP - General FAMILY PRACTICE 12/24/19 documented as of this encounter
--- OUTSIDE RECORDS SUMMARY | 2024-09-19 19:41 | XMS_ITS | Encounter Summary ---
Author Organization [facility] Address [facility]. [place], [place] [address] [place] [address] Care Team Providers Care Pasteuriser Operator Name Role Phone Sami Liriano Primary [...] on file Legal Sex Female 12:43 PM HEALTH INSURANCE SALES AGENT Gender Identity Female 12/18/2021 6:31 AM [...] st Contact Info) Description 10/09/2024 9:30 AM HEALTH INSURANCE SALES AGENT Office Visit [facility]-[address] [address] Carlos Farris MD [address] [facility] [address] [place] [address] 11/02/2024 10:20 AM HEALTH INSURANCE SALES AGENT Office Visit [facility] Family & Internal Medicine - [address] [phone] Sami Liriano DO [address] [place] [address] documented as of this encounter Visit Diagnoses Not on filedocumented in this encounter Additional Health Concerns Assessment Noted Time PHQ-9 Depression Total Score: 5 06/22/20 21 10:07 AM CDT documented as of this encounter Care Teams Pasteuriser Operator Relationship Specialty Start Date End Date Sami Liriano DO [address] [place] [address] PCP - General FAMILY PRACTICE 12/24/19 documented as of this encounter
--- OUTSIDE RECORDS SUMMARY | 2024-09-19 19:41 | XMS_ITS | Encounter Summary ---
Author Organization [facility] Address [address] [place] [address]. [place], [place] [address] [place] [address] Care Team Providers Care Swatch Clerk Name Role Phone Sami iLriano Nicole AGUIRA Primary Care Provider + Reason for Visit * Reason Comments Medicare Wellness Encounter Details Date Type Department Care Team (Late st Contact Info) Description 06/22/2021 10:00 AM CDT Office Visit [facility] Family & Internal Medicine [address] [phone] Medicare Wellness Social History Tobacco [...] file Legal Sex Female 12:43 PM DIRECTOR MOBILE Gender Identity Female 12/18/2021 6:31 AM CDT [...] by the doctors and editors at [facility] What are advance directives???--??Advance directives are legal [...] proxy (also called the durable power of laboratory asst for health care) - The health care [...] process is complete. This topic retrieved from [employer] on: Oct 07, 2018. Topic 88396 Version 11.0 table 1: Resources that can help you make advance directives ?? Address Phone number Website [address] Toll-free: (598) [facility] [ ] http://assets.[facility].org/external_sites/ caregiving/multimedia/EG_AdvanceDirectives.html Aging with Dignity (Five Wishes form) [address] [place] [address] Toll-free: (524) 5WISHES [ ] www.agingwithdignity.org CaringInfo ?? Toll-free: www.caringinfo.org [employer] [address] [place] [address] www.[employer] [place](BAI).org EXERCISE As an older adult, regular physical [...] your heart beating faster. From pushing a certified procedural coder, to taking a dance class, to biking [...] pain ever and you need to go [facility]. An exam will help your doctor [...] you. Some of these are massage, acupuncture, hourly caregiver, and relaxation. What drugs may be needed? [...] can also cause the mouth to be short goods drier. ?? The gums shrink and expose new areas of teeth to possible infection or decay. ?? Dentures may not fit as well because of changes in the gums and the jawbones. ?? The risk of oral cancer is higher. Brushing Teeth can last a lifetime if they are looked after. The most effective thing you can do is brushingyour teeth. [place] them in the morning and again before [...] has fluoride and is recommended by the [employer]. Tartar-control toothpaste may be helpful. [...] services that may be able to help: [facility] Senior Helpline. 0 [phone] Caregiver Hotline [phone] National Family [employer]givers Association [phone] SEAT BELT SAFETY Your Health Risk Assessment [...] passengers in Vans or SUV vehicles. ?? [facility] residents every day in vehicle accidents. Over 75% of all automobile accidents reported across the [facility] resulted in a fatality or [...] 1 SLUMS #9: Clock 4 SLUMS #10a: [place] 1 SLUMS #10b: Size 1 SLUMS #11: [...] Not on file Occupational History ??? 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 Smoking status: [...] Contact Info) Description 10/09/2024 9:30 AM DIRECTOR MOBILE Office Visit [facility] [phone] Carlos Farris MD [address] [facility] [address] [place] [address] 11/02/2024 10:20 AM DIRECTOR MOBILE Office Visit [facility] Family & Internal Medicine - [address] [phone] Sami Liriano DO [address] [place] [address] documented as of this encounter Visit Diagnoses Diagnosis Routine general medical examination at a health care facility- Primary documented in this encounter Additional Health Concerns Assessment Noted Time PHQ-9 Depression Total Score: 5 06/22/20 21 10:07 AM CDT documented as of this encounter Care Teams Swatch Clerk Relationship Specialty Start Date End Date Sami Liriano DO [address] [place] [address] PCP - General FAMILY PRACTICE 12/24/19 documented as of this encounter
--- OUTSIDE RECORDS SUMMARY | 2024-09-19 19:41 | XMS_ITS | Encounter Summary ---
Author Organization [facility] Address [address] [place] [address]. [place] [id number] [place] [address] Care Team Providers Care Armature Winder Repair Name Role Phone Sami Liriano DO Primary Care Provider + Encounter Details Date Type Department Care Team (Late st Contact Info) Description 07/14/2021 8:40 AM CDT Laboratory Only [facility] Family & Internal Medicine [place] [id number] [place] [address] Sami Liriano DO [address] [place] [address] Social History Tobacco Use Types Packs/Day [...] file Legal Sex Female 12:43 PM COMMUNITY LIVING SPECIALIST Gender Identity Female 12/18/2021 6:31 AM [...] 8:40 AM CDT See encounter from 08/07/21. UNITY LIVING SPECIALIST documented in this encounter Plan of Treatment Upcoming Encounters Date Type Department Care Team (Late st Contact Info) Description 10/09/2024 9:30 AM COMMUNITY LIVING SPECIALIST Office Visit [facility] [phone] Carlos Farris MD [facility] [address] [place] [address] 11/02/2024 10:20 AM COMMUNITY LIVING SPECIALIST Office Visit [facility] Family & Internal Medicine - [address] [phone] Sami Liriano DO [address] [place] [address] documented as of this encounter Procedures Procedure [...] COLOR (U) YELLOW 07/14/2021 5:55 PM T [facility] TRANSPARENCY CLEAR CLEAR 07/14/2021 5:55 PM CDT [facility] SPECIFIC GRAVITY (U) 1.015 1.003 - 1.040 07/14/2021 5:55 PM CDT [facility] U PH 6.0 5.0 - 9.0 07/14/2021 5:55 PM CDT [facility] PROTEIN (U) NEGATIVE NEGATIVE 07/14/2021 5:55 PM T [facility] URINE GLUCOSE NEGATIVE NEGATIVE 07/14/2021 5:55 PM T [facility] KETONES MG/DL (U) NEGATIVE NEGATIVE 07/14/2021 5:55 PM T [facility] BILIRUBIN (U) NEGATIVE NEGATIVE 07/14/2021 5:55 PM T [facility] BLOOD (U) NEGATIVE NEGATIVE 07/14/2021 5:55 PM T [facility] UROBILINOGEN 0.2 0.0 - 2.0 EU/DL 07/14/2021 5:55 PM T [facility] NITRITES NEGATIVE NEGATIVE 07/14/2021 5:55 PM T [facility] LEUKOCYTES (U) NEGATIVE NEGATIVE 07/14/2021 5:55 PM CDT [facility] REFLEX URINE CULTURE: CULTURE IS NOT INDICATED 07/14/2021 5:55 PM CDT [facility] RBC/HPF 0-3 0 - 3 /HPF 07/14/2021 5:55 PM CDT [facility] WBC/HPF 0-3 0 - 3 /HPF 07/14/2021 5:55 PM CDT [facility] EPI/HPF 0-3 /HPF 07/14/2021 5:55 PM CDT [facility] BACTERIA (U) NONE SEEN NONE SEEN 07/14/2021 5:55 PM CDT [facility] URINE SPECIMEN OBTAINED BY CLEAN CATCH PROCEDURE / Unknown 07/14/2021 9:51 AM CDT Sami Liriano DO URINE ORDERABLES Final R esult Performing Organization Address [facility] Co de Phone Number [facility] [address] [place] [address], [place] [phone] * (ABNORMAL) HEMOGLOBIN, GLYCOSYLATED (07/14/2021 9:40 AM CDT) HGB A1C 7.1(H) 3.80 - 5.60 % 07/14/2021 5:59 PM CDT [facility] ESTIMATED AVG GLUCOSE 157(H) 74 - 106 MG/DL 07/14/2021 5:59 PM CDT [facility] 07/14/2021 9:40 AM CDT Sami Liriano DO LABORATORY Final Re sult Performing Organization Address [facility] Co de Phone Number [facility] [address] [place] [address], [place] [phone] * (ABNORMAL) BASIC METABOLIC PANEL (07/14/2021 9:40 AM CDT) SODIUM S/P/B 141 136 - 145 MMOL/L 07/14/2021 4:18 PM CDT [facility] POTASSIUM S/P/B 3.4(L) 3.5 - 5.1 MMOL/L 07/14/2021 4:18 PM CDT [facility] CHLORIDE S/P/B 104 98 - 107 MMOL/L 07/14/2021 4:18 PM [facility] CO2 27.2 21 - 32 MMOL/L 07/14/2021 4:18 PM [facility] GLUCOSE 124(H) 70 - 99 MG/DL 07/14/2021 4:18 PM [facility] BUN 36(H) 6 - 24 MG/DL 07/14/2021 4:18 PM [facility] CREATININE S/P/B 1.41(H) 0.55 - 1.02 MG/DL 07/14/2021 4:18 PM [facility] CALCIUM S/P/B 8.8 8.4 - 10.5 MG/DL 07/14/2021 4:18 PM [facility] ANION GAP 9.8 5 - 15 MMOL/L 07/14/2021 4:18 PM [facility] Comment:REFERENCE RANGE NOT ESTABLISHED OSMOLALITY (CALC) 302 MOSM/KG 07/14/2021 4:18 PM [facility] Comment:REFERENCE RANGE NOT ESTABLISHED EGFR NON-AFR. AMER. 38(L) >90 ML/MIN/1 .73 M2 07/14/2021 4:18 PM [facility] EGFR AFR. AMER. 44(L) >90 ML/MIN/1 .73 M2 07/14/2021 4:18 PM [facility] GFR NOTES THE ESTIMATED GFR IS CALCULATED USING THE 2009 CKD-EPI EQUATION. THE FOLLOWING CATEGORIES FOR GRADING RENAL FUNCTION ARE RECOMMENDED BY THE INTERNATIONAL SOCIETY OF NEPHROLOGY (KDIGO 2012 CLINICAL PRACTICE GUIDELINE). 07/14/2021 4:18 PM T [facility] Comment: G1,NORMAL OR HIGH: >89 ml/min/1.73 m2 G2,MILDLY DECREASED: 60-89 ml/min/1.73 m2 G3A,MILDLY TO MODERATELY DECREASED: 45-59 ml/min/1.73 m2 G3B,MODERATELY TO SEVERELY DECREASED: 30-44 ml/min/1.73 m2 G4,SEVERELY DECREASED: 15-29 ml/min/1.73 m2 G5,KIDNEY FAILURE: <15 ml/min/1.73 m2 07/14/2021 9:40 AM CDT Sami Liriano DO LABORATORY Final Re sult -[facility] [address] [place] [address], documented in this encounter Visit Diagnoses Diagnosis Hyperglycemia- Primary Other abnormal glucose Elevated serum creatinine Other nonspecific findings on examination of blood Urine abnormality Other nonspecific finding on examination of urine documented in this encounter Additional Health Concerns Assessment Noted Time PHQ-9 Depression Total Score: 5 06/22/20 21 10:07 AM CDT documented as of this encounter Care Teams Armature Winder Repair Relationship Specialty Start Date End Date Sami Liriano DO [address] [place] [address] PCP - General FAMILY PRACTICE 12/24/19 documented as of this encounter
--- OUTSIDE RECORDS SUMMARY | 2024-09-19 19:41 | XMS_ITS | Encounter Summary ---
Author Organization [facility] Address [address] [place] [address]. [place], [place] [address] [place] [address] Care Team Providers Care Manager Social Media Name Role Phone Sami Liriano Primary Care [...] on file Legal Sex Female 12:43 PM PROJECT CONSTRUCTION MANAGER Gender Identity Female 12/18/2021 6:31 AM [...] Coronavirus / COVID-19? Yes 10/19/2021 1:15 PM PROJECT CONSTRUCTION MANAGER documented as of this encounter Plan of Treatment Upcoming Encounters Date Type Department Care Team (Late st Contact Info) Description 10/09/2024 9:30 AM PROJECT CONSTRUCTION MANAGER Office Visit [facility] [phone] Carlos Farris MD [address] [facility] [address] [place] [address] 11/02/2024 10:20 AM PROJECT CONSTRUCTION MANAGER Office Visit [facility] Family & Internal Medicine - [address] [phone] Sami Liriano DO [address] [place] [address] documented as of this encounter Visit Diagnoses Not on filedocumented in this encounter Additional Health Concerns Infection Onset Date Last Indicated Resolved Time COVID-19 Rule Out 10/11/2021 10/11/2021 10/12/2021 1:13 AM PROJECT CONSTRUCTION MANAGER COVID-19 Confirmed 10/11/2021 10/11/2021 12:35 AM PROJECT CONSTRUCTION MANAGER Assessment Noted Time PHQ-9 Depression Total Score: 0 10/11/19 22 10:50 AM PROJECT CONSTRUCTION MANAGER documented as of this encounter Care Teams Manager Social Media Relationship Specialty Start Date End Date Sami Liriano DO [address] [place] [address] PCP - General FAMILY PRACTICE 12/24/19 documented as of this encounter
--- OUTSIDE RECORDS SUMMARY | 2024-09-19 19:41 | XMS_ITS | Encounter Summary ---
Author Organization [facility] Address [address] [place] [address]. [place], [place] [address] [place] [address] Care Team Providers Care Traffic Court Referee Name Role Phone Sami Liriano Primary Care Provider + Reason for Visit * Reason Comments Image (SCAN) CT (SCAN) Encounter Details Date Type Department Care Team ([facility] Contact Info) Description 10/11/2021 Scan HEALTH INFO [...] on file Legal Sex Female 12:43 PM VALET Gender Identity Female 12/18/2021 6:31 AM CDT [...] Coronavirus / COVID-19? Yes 10/19/2021 1:15 PM VALET documented as of this encounter Plan of Treatment Upcoming Encounters Date Type Department Care Team (Late st Contact Info) Description 10/09/2024 9:30 AM VALET Office Visit [facility] [phone] Carlos Farris MD [address] [facility] [address] [place] [address] 11/02/2024 10:20 AM VALET Office Visit [facility] Family & Internal Medicine - [address] [phone] Sami Liriano DO [address] [place] [address] documented as of this encounter Procedures Procedure [...] Rule Out 10/06/2021 10/11/2021 10/11/2021 8:45 AM VALET COVID-19 Rule Out 10/11/2021 10/11/2021 10/12/2021 1:13 AM VALET COVID-19 Confirmed 10/11/2021 10/11/2021 12:35 AM VALET Assessment Noted Time PHQ-9 Depression Total Score: 0 10/11/19 22 10:50 AM VALET documented as of this encounter Care Teams Traffic Court Referee Relationship Specialty Start Date End Date Sami Liriano DO [address] [place] [address] PCP - General FAMILY PRACTICE 12/24/19 documented as of this encounter
--- OUTSIDE RECORDS SUMMARY | 2024-09-19 19:41 | XMS_ITS | Encounter Summary ---
Author Organization [facility] Address [facility]. [place], [place] [address] [place] [address] Care Team Providers Care Professor Of Physical Education Name Role Phone Heri Sami Rivera DO Primary Care Provider + Reason for Referral * Sleep Lab (Routine) - Closed Specialty Diagnoses / Procedures Referred By Shereen benton Referred To Contact Cardiology Diagnoses Sleep disturbance Edema SOB (shortness of breath) High blood pressure MOR (obstructive sleep apnea) Procedures Diagnostic PSG (73553, 13238) Erik Dewitt MD [address] [address] Phone: tel: fax: [facility] [address] [place] [address] Phone: tel: fax: Referral ID Status Reason Start Date Expiration Date Visits Re quested Visits Authorized [id number] Closed 06/16/2021 09/21/2021 1 1 Reason for Visit * Sleep Lab (Routine) - Closed Specialty Diagnoses / Procedures Referred By Shereen benton Referred To Contact Cardiology Diagnoses Sleep disturbance Edema SOB (shortness of breath) High blood pressure MOR (obstructive sleep apnea) Procedures Diagnostic PSG (30978, 65365) Erik Dewitt MD 3 [facility] [address] [place] [address] Phone: tel: fax: [facility] [address] [place] [address] Phone: tel: fax: Referral ID Status Reason Start Date Expiration Date Visits Re quested Visits Authorized [id number] Closed 06/16/2021 09/21/2021 1 1 Encounter Details Date Type Department Care Team (Latest Contact Info) Description 07/01/2021 8:00 PM CDT - 07/01/2021 11:59 PM CDT Hospital Encounter [facility] [address] [place] [address] Erik Dewitt MD 3 [facility] [address] [place] [phone] Discharge Disposition: Home or Self Care [...] on file Legal Sex Female 12:43 PM WORDPRESS DEVELOPER Gender Identity Female 12/18/2021 6:31 AM [...] CDTAssociated Order(s): POLYSOMNOGRAPHY 4 OR MORE PARAMETERS [facility] O???[facility] NIGHT POLYSOMNOGRAM INTERPRETATION PATIENT NAME: JOLLY [...] snoring and other sleep-related issues, such as GASOLINE TRUCK OPERATOR depressants, especially at bedtime. This document was electronically signed by: Neto Shelby M.D. on 07/05/2021 at 9:08 AM. documented in this encounter Plan of Treatment Upcoming Encounters Date Type Department Care Team (Late st Contact Info) Description 10/09/2024 9:30 AM WORDPRESS DEVELOPER Office Visit [facility]-[address] [phone] Carlos Farris MD [facility] [address] [place] [address] 11/02/2024 10:20 AM WORDPRESS DEVELOPER Office Visit [facility] Family & Internal Medicine - [address] [phone] Sami Liriano DO [address] [place] [address] documented as of this encounter Procedures Procedure Name Priority Date/Time Associated Diagnosis Comments POLYSOMNOGRAPHY 4 OR MORE PARAMETERS Routine 07/01/2021 8:00 PM CDT Sleep disturbance Edema SOB (shortness of breath) High blood pressure MOR (obstructive sleep apnea) documented in this encounter Results * Diagnostic PSG (28604, 25462) (07/01/2021 8:00 PM CDT) Narrative [facility] - 07/01/2021 8:00 PM CDT Neto Shelby MD ? 07/05/2021 ??2:38 PM [facility] O? [place] SPLI NIGHT POLYSOMNOGRAM INTERPRETATION PATIENT NAME: [...] snoring and other sleep-related issues, such as GASOLINE TRUCK OPERATOR depressants, especially at bedtime. This document was electronically signed by: Neto [facility] M.D. on 07/05/2021 at 9:08 AM. us Erik Dewitt MD [facility]ENTER ORDERABLES Final Result [facility] [address] [place] [address], documented in this encounter Visit Diagnoses Diagnosis Sleep disturbance Sleep disturbance, unspecified Edema SOB (shortness of breath) Shortness of breath High blood pressure Unspecified essential hypertension MOR (obstructive sleep apnea) Obstructive sleep apnea (adult) (pediatric) documented in this encounter Additional Health Concerns Assessment Noted Time PHQ-9 Depression Total Score: 5 06/22/20 21 10:07 AM CDT documented as of this encounter Care Teams Professor Of Physical Education Relationship Specialty Start Date End Date Sami Liriano DO [address] [place] [address] PCP - General FAMILY PRACTICE 12/24/19 documented as of this encounter
--- OUTSIDE RECORDS SUMMARY | 2024-09-19 19:41 | XMS_ITS | Encounter Summary ---
Author Organization [facility] Address [facility] [place], [place] [address] [place] [address] Care Team Providers Care Store Sales Manager Name Role Phone Sami Liriano DO Primary Care Provider + Reason for Visit * Reason Comments Follow Up Test Results: Echo, Venous Dup and Labs * Consultation (Routine) - Closed Specialty Diagnoses / Procedures Referred By Contac t Referred To Contact CARDIOLOGY / Cardiology Diagnoses Dyspnea on exertion Procedures OV Sami Liriano DO [address] [place] [address] Phone: tel: fax: Erik Dewitt MD 3 Health system [address] [place] [address] Phone: tel: fax: Referral ID Status Reason Start Date Expiration Date V isits Requested Visits Authorized [id number] Closed Specialty Services 06/15/2021 06/14/2022 6 6 Encounter Details Date Type Department Care Team (Latest Contact Info) Description 08/04/2021 10:45 AM CDT Office Visit [facility]-[address] [phone] Erik Dewitt MD 3 Health system [address] [place] [phone] Follow Up (Test Results: Echo, Venous [...] file Legal Sex Female 12:43 PM RN FAMILY PRACTICE Gender Identity Female 12/18/2021 6:31 AM CDT [...] COVID-19? No / Unsure 08/07/2021 9:32 AM RN FAMILY PRACTICE documented as of this encounter Last Filed [...] 10:03 AM Modules accepted: Level of Service FAMILY PRACTICE * Erik Dewitt MD - 08/04/2021 10:45 [...] on her legs. 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 ?? eGFR Non-Afr. Amer. > OR = [...] Contact Info) Description 10/09/2024 9:30 AM RN FAMILY PRACTICE Office Visit [facility]-[address] [phone] Carlos Farris MD [facility] Suite [facility] [place] [address] 11/02/2024 10:20 AM RN FAMILY PRACTICE Office Visit [facility] Family & Internal Medicine - [address] [phone] Sami Liriano DO [address] [place] [address] documented as of this encounter Visit Diagnoses [...] as of this encounter Care Teams Store Sales Manager Relationship Specialty Start Date End Date Sami Liriano DO [address] [place] [address] PCP - General FAMILY PRACTICE 12/24/19 documented as of this encounter
--- OUTSIDE RECORDS SUMMARY | 2024-09-19 19:41 | XMS_ITS | Encounter Summary ---
Author Organization [facility] Address [facility]6 [facility] [place], [place] [address] [place] [address] Care Team Providers Care Bias Binding Cutter Name Role Phone RomeofroylanSami lozoya Nicole AGUIAR Primary Care Provider + Reason for Referral * Procedure (Routine) - Closed Specialty Diagnoses / Procedures Referred By Shereen t Referred To Contact Diagnoses Edema SOB (shortness of breath) High blood pressure GERD (gastroesophageal reflux disease) Essential hypertension Procedures Stress test only, exercise [facility] [address] Phone: tel: Referral ID Status Reason Start Date Expiration Date Visits Re quested Visits Authorized [id number] Closed 07/17/2021 08/17/2022 1 1 * Imaging (Routine) - Closed Specialty Diagnoses / Procedures Referred By Shereen benton Referred To Contact RADIOLOGY Diagnoses Sleep disturbance Edema SOB (shortness of breath) High blood pressure MOR (obstructive sleep apnea) Procedures NM EXER NUC STRESS TEST 2DAY NM EXER NUC STRESS TEST 1DAY Erik Bowling MD 3 [facility] [address] [place] [address] Phone: tel: fax: Referral ID Status Reason Start Date Expiration Date Visits Re quested Visits Authorized [id number] Closed 06/16/2021 07/17/2022 2 2 Reason for Visit * Imaging (Routine) - Closed Specialty Diagnoses / Procedures Referred By Shereen t Referred To Contact RADIOLOGY Diagnoses Sleep disturbance Edema SOB (shortness of breath) High blood pressure MOR (obstructive sleep apnea) Procedures USE ECHOCARDIOGRAM W CON USE ECHOCARDIOGRAM Erik Bowling MD 3 [facility] [address] [place] [address] Phone: tel: fax: Referral ID Status Reason Start Date Expiration Date Visits Re quested Visits Authorized [id number] Closed 06/16/2021 07/17/2022 1 1 Encounter Details Date Type Department Care Team (Latest Contact Info) Description 07/17/2021 7:37 AM CDT - 07/17/2021 11:59 PM CDT Hospital Encounter [facility] [address] [place] [address] Erik Bowling MD [address] [address] Discharge Disposition: Home or Self [...] file Legal Sex Female 12:43 PM CLINICAL ACCOUNT LIAISON Gender Identity Female 12/18/2021 6:31 AM [...] Contact Info) Description 10/09/2024 9:30 AM CLINICAL ACCOUNT LIAISON Office Visit [facility] [phone] Carlos Farris MD [address] [facility] [address] [place] [address] 11/02/2024 10:20 AM CLINICAL ACCOUNT LIAISON Office Visit [facility] Medical [facility] Family & Internal Medicine - [address] [phone] Sami Liriano DO [address] [place] [address] documented as of this encounter Procedures Procedure [...] Perfusion Imaging ? Pat.Name: ??HAIR SARGENT ?Pat.ID: ?[id number] ? St.Date: ?? 07/17/2021 ?Refer.MD: ??Heri ? Exam Time: 10:49:00 AM ? Study Type:KATIE NC HT MUSCLE IMAGE SPECT MULTI Height: ?60in ?Weight: ?250lb ? BSA: ? 2.05 m2 ?Age: ??1955,66Y ? Sex: ? FEMALE ?Sonogrphr: Krystyna Merrill, SCRIPT COORDINATOR ? Pat. Stat.:Outpatient ? Reason for Study: [...] ?O2 Sat ? 100 % Max RPP ?85748 ? Symptoms and Complications: Terminated Protocol completed [...] Perfusion Imaging Pat.Name: DAYAN HAIR L Pat.ID: [id number] St.Date: 07/17/2021 Refer.: Heri Exam Time: 10:49:00 [...] 150/80 O2 Sat 100 % Max RPP 98516 Symptoms and Complications: Terminated Protocol completed Symptoms [...] ?Echocardiography Report Pat.Name: ??DAYAN, HAIR L ?Pat.ID: ?[id number] ? St.Date: ?? 07/17/2021 ? Refer.: ??[id number] RENATE Carrera ? EWDPROV ?EWDPROV Exam Time: [...] ?0.189 m ?? Mitral Valve ?? Decel Boyle ?388 cm/s2 ? Regurg Frac ? 38.3 [...] s MOD A2 ??2.72 cm ?? Minor Stopover (Rosalie ??3.56 cm ? LV vol s [...] Atrium ?? LA VOLBP ?62.8 ml ?Major Stopover (Sys ??6.14 cm ?? Yang Disk Nu ? 9 ?Major Stopover (Sys ??5.76 cm ?? Ratios ?? IVS [...] ?3.48 cm ? Right Atrium ?? Major Stopover (Sys ??5.17 cm ? Yang Disk Nu ? 9 ? HR ?55 bpm ? RA Area-Length Single Plane Volume (Systole ??24.5 ml/m2 ? RA Single Plane RA sys Area ? 17.5 cm2 ? Volume (Systole ??47.1 ml ?? Right Ventricle ?? RVIDd ? 3.44 cm ?HR ?53 bpm Major Stopover (Rosalie ??7.45 cm ? Minor Stopover (Rosalie ??2.96 cm ?? RVOT ?? PG [...] 07/17/2021 Echocardiography Report Pat.Name: HAIR SARGENT Pat.ID: [id number] .Date: 07/17/2021 Refer.: [id number] RENATE Carrera EWDPROV EWDPROV Exam Time: 9:18:00 AM Study Type:ECHO WITH CARDIAC DOPPLER COMP Height: 60in Weight: 249.48lb BSA: 2.05 m2 Age: 3 1955,66Y Sex: FEMALE BP: 104/40 HR: 51 bpm Sonogrphr: Susan Fragoso [facility] [[email or web address]], [facility] Pat. Stat.:Outpatient Reason for Study: Shortness of breath History / Clinical: LE edma; PMH- Obese, HTN, xtob, CKD3, MOR-CPAP, Le edema- on diuretics, prior BLEV @ [facility] 03/07/20 negative Procedures: 2D, M-mode, Doppler, Color [...] mmHg VTI 0.189 m Mitral Valve Decel Boyle 388 cm/s2 Regurg Frac 38.3 % HR [...] vol s MOD A2 2.72 cm Minor Stopover (Rosalie 3.56 cm LV vol s MOD [...] Left Atrium LA VOLBP 62.8 ml Major Stopover (Sys 6.14 cm Yang Disk Nu 9 Major Stopover (Sys 5.76 cm Ratios IVS Ventricular Septum IVSd 1.09 cm Aorta AO Ds 3.76 cm LV Area-Length Biplane LVEDV 121 ml LVESV 38.4 ml LV Area-Length Single Plane LVEDV 141 ml LVESV 37 ml LVEDV 110 ml LVESV 40.9 ml LVOT LVOTArea 3.6 cm2 Cardiovascular 2.14 cm Mitral Valve Orf Diam 3.48 cm Right Atrium Major Stopover (Sys 5.17 cm Yang Disk Nu 9 HR 55 bpm RA Area-Length Single Plane Volume (Systole 24.5 ml/m2 RA Single Plane RA sys Area 17.5 cm2 Volume (Systole 47.1 ml Right Ventricle RVIDd 3.44 cm HR 53 bpm Major Stopover (Rosalie 7.45 cm Minor Stopover (Rosalie 2.96 cm RVOT PG pk 3.92 [...] documented as of this encounter Care Teams Bias Binding Cutter Relationship Specialty Start Date End Date Sami Liriano DO [address] [place] [address] PCP - General FAMILY PRACTICE 12/24/19 documented as of this encounter
--- OUTSIDE RECORDS SUMMARY | 2024-09-19 19:41 | XMS_ITS | Encounter Summary ---
Author Organization [facility] Address [facility]6 [facility], [place] [address] [place] [address] Care Team Providers Care Toy Maker Name Role Phone Sami Liriano Primary [...] on file Legal Sex Female 12:43 PM BUYER LIAISON Gender Identity Female 12/18/2021 6:31 AM [...] st Contact Info) Description 10/09/2024 9:30 AM BUYER LIAISON Office Visit [facility]-[address] [phone] Carlos Farris MD Three [facility] [address] [place] [address] 11/02/2024 10:20 AM BUYER LIAISON Office Visit [facility] Medical [facility] Family & Internal Medicine - [address] [phone] Sami Liriano DO [address] [place] [address] documented as of this encounter Visit Diagnoses Not on filedocumented in this encounter Additional Health Concerns Assessment Noted Time PHQ-9 Depression Total Score: 12 12/15/2 021 8:10 AM CDT documented as of this encounter Care Teams Toy Maker Relationship Specialty Start Date End Date Sami Liriano DO [address] [place] [address] PCP - General FAMILY PRACTICE 12/24/19 documented as of this encounter
--- OUTSIDE RECORDS SUMMARY | 2024-09-19 19:41 | XMS_ITS | Encounter Summary ---
Author Organization [facility] Address [facility]6 [facility] [place] [facility] [place], [place] [address] [place] [address] Care Team Providers Care Appeals Analyst Name Role Phone Sami Liriano Primary Care Provider + Reason for Visit * Reason Onset Date Comments Appointment Request 08/15/2021 Encounter Details Date Type Department Care Team (Late st Contact Info) Description 08/15/2021 Telephone [facility] Medical [facility] Diabetes and Endocrinology - [place] [address] [facility] [place] [address] Appointment Request Social History [...] on file Legal Sex Female 12:43 PM FILM PROCESSING UTILITY WORKER Gender Identity Female 12/18/2021 6:31 AM [...] COVID-19? No / Unsure 08/07/2021 9:32 AM FILM PROCESSING UTILITY WORKER documented as of this encounter Progress Notes * Maude Siegel RD - 08/15/2021 10:24 AM CST Patient returned call and appt is scheduled. PROCESSING UTILITY WORKER * Maude Siegel RD - 08/15/2021 9:04 AM CST Attempted 1st call to patient to schedule an appt to see the dietitian. No answer so vm was left. PROCESSING UTILITY WORKER documented in this encounter Plan of Treatment Upcoming Encounters Date Type Department Care Team (Late st Contact Info) Description 10/09/2024 9:30 AM FILM PROCESSING UTILITY WORKER Office Visit [facility]-[address] [phone] Carlos Farris MD Three [facility] [address] [place] [address] 11/02/2024 10:20 AM FILM PROCESSING UTILITY WORKER Office Visit [facility] Medical Group Family & Internal Medicine - [address] [phone] Sami Liriano DO [address] [place] [address] documented as of this encounter Visit Diagnoses Not on filedocumented in this encounter Additional Health Concerns Assessment Noted Time PHQ-9 Depression Total Score: 5 06/22/20 21 10:07 AM CDT documented as of this encounter Care Teams Appeals Analyst Relationship Specialty Start Date End Date Sami Liriano DO [address] [place] [address] PCP - General FAMILY PRACTICE 12/24/19 documented as of this encounter
--- OUTSIDE RECORDS SUMMARY | 2024-09-19 19:41 | XMS_ITS | Encounter Summary ---
Author Organization [facility] Address [address] [place] [address]. [place], [place] [address] [place] [address] Care Team Providers Care Quality Control Lab Tech Name Role Phone Sami Liriano DO Primary Care Provider + Reason for Visit * Reason Onset Date Comments Diarrhea 08/28/2021 Encounter Details Date Type Department Care Team (Late st Contact Info) Description 08/28/2021 Telephone [facility] Medical Group Family & Internal Medicine [place] [phone] [place] [address] Sami Liriano DO [facility] [place] [address] Diarrhea Social History Tobacco Use [...] on file Legal Sex Female 12:43 PM SHAPER HAND Gender Identity Female 12/18/2021 6:31 AM CDT [...] COVID-19? No / Unsure 08/07/2021 9:32 AM SHAPER HAND documented as of this encounter Progress Notes * Radha Oglesby MA - 08/28/2021 3:26 PM CST Patient notified and v/u ER HAND * Sami Liriano DO - 08/28/2021 9:26 AM CST I have had pts with this, yes. I actually recommend just Immodium OTC at this time; works very wellfor diarrhea. Ensure there is no blood. ER HAND * Maria Del Rosario York - 08/28/2021 9:13 AM CST Patient is asking if there is a virus going around. States that she has been vomiting and diarrhea for 3 days. The vomiting has pretty much stopped but she is still having the diarrhea. She is asking if we can call something out for the diarrhea. [facility] [place] [facility]. ER HAND documented in this encounter Plan of Treatment Upcoming Encounters Date Type Department Care Team (Late st Contact Info) Description 10/09/2024 9:30 AM SHAPER HAND Office Visit [facility]-[address] [phone] Carlos Farris MD [facility] [address] [place] [address] 11/02/2024 10:20 AM SHAPER HAND Office Visit [facility] Medical Group Family & Internal Medicine - [place] [address] [place] [address] Sami Liriano DO [address] [place] [address] documented as of this encounter Visit Diagnoses Not on filedocumented in this encounter Additional Health Concerns Assessment Noted Time PHQ-9 Depression Total Score: 5 06/22/20 21 10:07 AM CDT documented as of this encounter Care Teams Quality Control Lab Tech Relationship Specialty Start Date End Date Sami Liriano DO [address] [place] [address] PCP - General FAMILY PRACTICE 12/24/19 documented as of this encounter
--- OUTSIDE RECORDS SUMMARY | 2024-09-19 19:41 | XMS_ITS | Encounter Summary ---
Author Organization [facility] Address [address] [place] [address]. [place], [place] [address] [place] [address] Care Team Providers Care Funeral Workers Name Role Phone Sami Liriano DO Primary Care Provider + Reason for Visit * Reason Onset Date Comments Other 10/09/2021 Encounter Details Date Type Department Care Team (Late st Contact Info) Description 10/09/2021 Telephone [facility] Medical Group Family & Internal Medicine [place] [address] [place] [address] Sami Liriano DO [facility] [place] [address] Other Social History Tobacco Use [...] on file Legal Sex Female 12:43 PM SPLICER 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 Gender Identity Female 12/18/2021 6:31 [...] COVID-19? No / Unsure 09/19/2021 9:43 AM SPLICER 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 documented as of this encounter [...] further needs voiced at this time. LL-10/10/21 CER 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 * Deb Varela RN - 10/10/2021 10:30 AM CST Attempted to call the patient, was unable to reach them at this time. Left a message requesting a call back. LL-10/10/21 CER 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 * Poppy Alas - 10/10/2021 10:19 AM CST Patient calling back in. She would like to do the antibodies infusion now. She feels pretty bad CER 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 * Deb Varela RN - 10/09/2021 1:30 PM CST Patient stated she has tolerated that medication in the past. Sent over to pharmacy. Opportunity given for all questions to be answered, no further needs voiced at this time. LL-10/09/21 CER 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 * Sami Liriano DO - 10/09/2021 1:15 PM CST Cefdinir pended; let us know if not improving. Pt has tolerated cefdinir in the past around 03/03/21. CER 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 * Deb Varela RN - 10/09/2021 12:55 [...] Please advise Allergies- Penicillins, Sulf antibiotics Pharmacy- [facility]-10/09/21 CER 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 * Shabana Pendleton - 10/09/2021 10:53 AM CST Tested positive with covid Buffy. Morning, symptoms are getting worse. Fever at night, cold chills,coughing. . CER 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 documented in this encounter Plan of Treatment Upcoming Encounters Date Type Department Care Team (Late st Contact Info) Description 10/09/2024 9:30 AM SPLICER 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 Office Visit [facility]-[address] [phone] Carlos Farris MD Three [facility] [address] [place] [address] 11/02/2024 10:20 AM SPLICER 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 Office Visit [facility] Medical Group Family & Internal Medicine - [address] [phone] Sami Liriano DO [address] [place] [address] documented as of this encounter Visit Diagnoses Diagnosis UTI (urinary tract infection)- Primary Urinary tract infection, site not specified documented in this encounter Additional Health Concerns Infection Onset Date Last Indicated Resolved Time COVID-19 Rule Out 10/06/2021 10/11/2021 10/11/2021 8:45 AM SPLICER 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 Assessment Noted Time PHQ-9 Depression Total Score: 5 06/22/20 21 10:07 AM CDT documented as of this encounter Care Teams Funeral Workers Relationship Specialty Start Date End Date Sami Liriano DO [address] [place] [address] PCP - General FAMILY PRACTICE 12/24/19 documented as of this encounter
--- OUTSIDE RECORDS SUMMARY | 2024-09-19 19:41 | XMS_ITS | Encounter Summary ---
Author Organization [facility] Address [facility]6 [facility]. 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 Gender Identity Female 12/18/2021 6:31 [...] st Contact Info) Description 10/09/2024 9:30 AM SPRAY PAINTING 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 Office Visit [facility]-[address] [phone] Carlos Farris MD Three [facility] [address] [place] [address] 11/02/2024 10:20 AM SPRAY PAINTING 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 Office Visit [facility] Medical Group Family & Internal Medicine - [address] [phone] Sami Liriano DO [address] [place] [address] documented as of this encounter Visit Diagnoses Not on filedocumented in this encounter Additional Health Concerns Assessment Noted Time PHQ-9 Depression Total Score: 5 06/22/20 21 10:07 AM CDT documented as of this encounter Care Teams After School Program Assistant Relationship Specialty Start Date End Date Sami Liriano DO [address] [place] [address] PCP - General FAMILY PRACTICE 12/24/19 documented as of this encounter
--- OUTSIDE RECORDS SUMMARY | 2024-09-19 19:41 | XMS_ITS | Encounter Summary ---
Author Organization [facility] Address [facility]. [place], [place] [address] [place] [address] Care Team Providers Care Professor Of Nursing Name Role Phone Jaeldarell Sami Nicole AGUIAR Primary Care Provider + Reason for Referral * Imaging (Routine) - Closed Specialty Diagnoses / Procedures Referred By Shereen t Referred To Contact RADIOLOGY Diagnoses Sleep disturbance Edema SOB (shortness of breath) High blood pressure MOR (obstructive sleep apnea) Procedures USV VENOUS REFLUX LOW HAN Erik Bowling MD [address] [address] Phone: tel: fax: Referral ID Status Reason Start Date Expiration Date Visits Re quested Visits Authorized [id number] Closed 06/16/2021 07/17/2022 1 1 Reason for Visit * Imaging (Routine) - Closed Specialty Diagnoses / Procedures Referred By Shereen benton Referred To Contact RADIOLOGY Diagnoses Sleep disturbance Edema SOB (shortness of breath) High blood pressure MOR (obstructive sleep apnea) Procedures USV VENOUS REFLUX LOW HAN Erik Bowling MD 3 [facility] [address] [place] [phone] Phone: tel: fax: Referral ID Status Reason Start Date Expiration Date Visits Re quested Visits Authorized [id number] Closed 06/16/2021 07/17/2022 1 1 Encounter Details Date Type Department Care Team (Latest Contact Info) Description 07/17/2021 7:36 AM CDT Hospital Encounter [facility] [place] [address] Erik Bowling MD 3 [facility] [address] [place] [address] Discharge Disposition: Home or Self [...] 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 VASCULAR LAB Pat.Name: ??HAIR SARGENT ?Pat.ID: ?[id number] ? St.Date: ?? 07/17/2021 ?Refer.: ??Sami Liriano [...] BILATERAL LOWER EXTREMITY VASCULAR LAB Pat.Name: SHANTI SARGENTILA Romeo Pat.ID: [id number] .Date: 07/17/2021 Refer.MD: Sami Liriano Exam Time: [...] AM Crystal Ward M.D. Erik Bowling MD [facility] Final Result documented in this [...] of this encounter Care Teams Professor Of Nursing Relationship Specialty Start Date End Date Sami Liriano DO [address] [place] [address] PCP - General FAMILY PRACTICE 12/24/19 documented as of this encounter
--- OUTSIDE RECORDS SUMMARY | 2024-09-19 19:41 | XMS_ITS | Encounter Summary ---
Author Organization [facility] Address [facility]6 [facility]. [place], [place] [address] [place] [address] Care Team Providers Care Malter Operator Name Role Phone Sami Liriano Primary [...] on file Legal Sex Female 12:43 PM CASTING CARRIER Gender Identity Female 12/18/2021 6:31 AM CDT [...] st Contact Info) Description 10/09/2024 9:30 AM CASTING CARRIER Office Visit [facility]-[address] [phone] Carlos Farris MD Three [facility] [address] [place] [address] 11/02/2024 10:20 AM CASTING CARRIER Office Visit [facility] Medical Group Family & Internal Medicine - [address] [phone] Sami Liriano DO [address] [place] [address] documented as of this encounter Visit Diagnoses Not on filedocumented in this encounter Additional Health Concerns Assessment Noted Time PHQ-9 Depression Total Score: 5 06/22/20 21 10:07 AM CDT documented as of this encounter Care Teams Malter Operator Relationship Specialty Start Date End Date Sami Liriano DO [address] [place] [address] PCP - General FAMILY PRACTICE 12/24/19 documented as of this encounter
--- OUTSIDE RECORDS SUMMARY | 2024-09-19 19:41 | XMS_ITS | Encounter Summary ---
Author Organization [facility] Address [address] [place] [address]. [place], [place] [address] [place] [address] Care Team Providers Care Aws Software Development Engineer Name Role Phone Sami Liriano DO Primary Care Provider + Reason for Visit * Reason Onset Date Comments Results 10/12/2021 Encounter Details Date Type Department Care Team (Late st Contact Info) Description 10/12/2021 Telephone [facility] Family & Internal Medicine [id number] [place] [address] Sami Liriano DO [address] [place] [address] Results Social History Tobacco Use Types [...] on file Legal Sex Female 12:43 PM TELEPHONY ENGINEER Gender Identity Female 12/18/2021 6:31 AM [...] COVID-19? Unable to assess 10/11/2021 1:32 PM TELEPHONY ENGINEER documented as of this encounter Progress Notes * Radha Oglesby MA - 10/13/2021 12:39 PM CST Patient notified and v/u PHONY ENGINEER * Maria Del Rosario [place] - 10/13/2021 12:28 PM CST Patient is calling in states that she is wanting the antobody infusion. She is asking if we have anupdate on when she will be scheduled for that. PHONY ENGINEER * Radha Oglesby MA - 10/12/2021 9:17 AM CST Patient notified and v/u PHONY ENGINEER * Radha Oglesby MA - 10/12/2021 9:17 AM CST ----- Message from Sami Liriano DO sent at 10/12/2021 7:39 AM TELEPHONY ENGINEER ----- COVID PCR is negative; pt was sent to ER yesterday for this, so please reach out. PHONY ENGINEER documented in this encounter Plan of Treatment Upcoming Encounters Date Type Department Care Team (Late st Contact Info) Description 10/09/2024 9:30 AM TELEPHONY ENGINEER Office Visit [facility] [phone] Carlos Farris MD [facility] [address] [place] [address] 11/02/2024 10:20 AM TELEPHONY ENGINEER Office Visit [facility] Medical [facility] Family & Internal Medicine - [address] [phone] Sami Liriano DO [address] [place] [address] documented as of this encounter Visit Diagnoses Not on filedocumented in this encounter Additional Health Concerns Infection Onset Date Last Indicated Resolved Time COVID-19 Rule Out 10/11/2021 10/11/2021 10/12/2021 1:13 AM TELEPHONY ENGINEER COVID-19 Confirmed 10/11/2021 10/11/2021 12:35 AM TELEPHONY ENGINEER Assessment Noted Time PHQ-9 Depression Total Score: 0 10/11/19 22 10:50 AM TELEPHONY ENGINEER documented as of this encounter Care Teams Aws Software Development Engineer Relationship Specialty Start Date End Date Sami Liriano DO [address] [place] [address] PCP - General FAMILY PRACTICE 12/24/19 documented as of this encounter
--- OUTSIDE RECORDS SUMMARY | 2024-09-19 19:41 | XMS_ITS | Encounter Summary ---
Author Organization [facility] Address [address] [place] [address]. [place], [place] [id number] [place] [address] Care Team Providers Care Body Fitter Name Role Phone Sami Liriano DO Primary Care Provider + Reason for Visit * Reason Onset Date Comments Refill Request 08/16/2021 Encounter Details Date Type Department Care Team (Late st Contact Info) Description 08/16/2021 Telephone [facility] Medical [facility] Family & Internal Medicine [facility] [address] [place] [address] Sami Liriano DO [facility] [place], [place] [phone] Refill Request Social History Tobacco Use Types [...] file Legal Sex Female 12:43 PM HAND TAPPER Gender Identity Female 12/18/2021 6:31 AM CDT [...] COVID-19? No / Unsure 08/07/2021 9:32 AM HAND TAPPER documented as of this encounter Progress Notes * Radha Oglesby MA - 08/16/2021 3:24 PM CST A user error has taken place: TAPPER documented in this encounter Plan of Treatment Upcoming Encounters Date Type Department Care Team (Late st Contact Info) Description 10/09/2024 9:30 AM HAND TAPPER Office Visit [facility] [phone] Carlos Farris MD [facility] [address] [place] [address] 11/02/2024 10:20 AM HAND TAPPER Office Visit [facility] Medical Group Family & Internal Medicine - [address] [phone] Sami Liriano DO [address] [place] [address] documented as of this encounter Visit Diagnoses Not on filedocumented in this encounter Additional Health Concerns Assessment Noted Time PHQ-9 Depression Total Score: 5 06/22/20 21 10:07 AM CDT documented as of this encounter Care Teams Body Fitter Relationship Specialty Start Date End Date Sami Liriano DO [address] [place] [address] PCP - General FAMILY PRACTICE 12/24/19 documented as of this encounter
--- OUTSIDE RECORDS SUMMARY | 2024-09-19 19:41 | XMS_ITS | Encounter Summary ---
Author Organization [facility] Address [facility]. 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 [address] [place] [address] 11/02/2024 10:20 AM AIRFLIGHT ATTENDANTS SUPERVISOR Office Visit [facility] Medical Group Family & Internal Medicine - [address] [phone] Sami Liriano DO [address] [place] [address] documented as of this encounter Visit Diagnoses Not on filedocumented in this encounter Additional Health Concerns Assessment Noted Time PHQ-9 Depression Total Score: 5 06/22/20 21 10:07 AM CDT documented as of this encounter Care Teams Microsoft Dynamics Ax Developer Relationship Specialty Start Date End Date Sami Liriano DO [address] [place] [address] PCP - General FAMILY PRACTICE 12/24/19 documented as of this encounter
--- OUTSIDE RECORDS SUMMARY | 2024-09-19 19:41 | XMS_ITS | Encounter Summary ---
Author Organization [facility] Address [facility], [id number] [facility]. [place], [place] [id number] [place] [address] Care Team Providers Care Telecommunication Lines Repairer Name Role Phone Sami Liriano Primary [...] on file Legal Sex Female 12:43 PM HELPDESK SPECIALIST Gender Identity Female 12/18/2021 6:31 AM [...] COVID-19? Unable to assess 10/11/2021 1:32 PM HELPDESK SPECIALIST documented as of this encounter Plan of Treatment Upcoming Encounters Date Type Department Care Team (Late st Contact Info) Description 10/09/2024 9:30 AM HELPDESK SPECIALIST Office Visit [facility] [phone] Carlos Farris MD Three [facility] [address] [place] [address] 11/02/2024 10:20 AM HELPDESK SPECIALIST Office Visit [facility] Medical Group Family & Internal Medicine - [address] [phone] Sami Liriano DO [address] [place] [address] documented as of this encounter Visit Diagnoses Not on filedocumented in this encounter Additional Health Concerns Infection Onset Date Last Indicated Resolved Time COVID-19 Rule Out 10/06/2021 10/11/2021 10/11/2021 8:45 AM HELPDESK SPECIALIST COVID-19 Rule Out 10/11/2021 10/11/2021 10/12/2021 1:13 AM HELPDESK SPECIALIST Assessment Noted Time PHQ-9 Depression Total Score: 0 10/11/19 22 10:50 AM HELPDESK SPECIALIST documented as of this encounter Care Teams Telecommunication Lines Repairer Relationship Specialty Start Date End Date Sami Liriano DO [address] [place] [phone] PCP - General FAMILY PRACTICE 12/24/19 documented as of this encounter
--- OUTSIDE RECORDS SUMMARY | 2024-09-19 19:41 | XMS_ITS | Encounter Summary ---
Author Organization [facility] Address [facility]. [place], [place] [address] [place] [address] Care Team Providers Care Equipment Maintenance Supervisor Name Role Phone Sami Liriano Primary [...] on file Legal Sex Female 12:43 PM DAY CARE CENTER DIRECTOR Gender Identity Female 12/18/2021 6:31 AM [...] st Contact Info) Description 10/09/2024 9:30 AM DAY CARE CENTER DIRECTOR Office Visit [facility] [phone] [address] MD [address] [facility] [address] [place] [address] 11/02/2024 10:20 AM DAY CARE CENTER DIRECTOR Office Visit [facility] Medical Group Family & Internal Medicine - [address] [phone] Sami Liriano DO [address] [place] [address] documented as of this encounter Visit Diagnoses Not on filedocumented in this encounter Additional Health Concerns Assessment Noted Time PHQ-9 Depression Total Score: 12 12/15/2 021 8:10 AM CDT documented as of this encounter Care Teams Equipment Maintenance Supervisor Relationship Specialty Start Date End Date Sami Liriano DO [address] [place] [address] PCP - General FAMILY PRACTICE 12/24/19 documented as of this encounter
--- OUTSIDE RECORDS SUMMARY | 2024-09-19 19:41 | XMS_ITS | Encounter Summary ---
Author Organization [facility] Address [facility]. [place], [place] [address] [place] [address] Care Team Providers Care Production Repairer Name Role Phone Sami Liriano DO Primary Care Provider + Reason for Referral * Consultation (Routine) - Closed Specialty Diagnoses / Procedures Referred By Contact Referred To Contact NUTRITION / ENDOCRINOLOGY Diagnoses Type 2 diabetes mellitus without complication, without long-term current use of insulin ([facility]) Sami Liriano DO [address] [place] [address] Phone: tel: fax:[phone] [facility] Diabetes and Endocrinology - [address] [address] Phone: tel: fax: Referral ID Status Reason Start Date Expiration Date Visits Re quested Visits Authorized [id number] Closed 08/07/2021 09/07/2022 99 99 CTOR DIGITAL COMMUNICATIONS Reason for Visit * Reason Comments Results pt. here to follow mo p on test results Encounter Details Date Type Department Care Team (Late st Contact Info) Description 08/07/2021 9:20 AM DIRECTOR DIGITAL COMMUNICATIONS Office Visit [facility] Family & Internal Medicine [address] [place] [phone] HeriSami, DO [address] [place] [address] Results (pt. here to follow up on [...] file Legal Sex Female 12:43 PM DIRECTOR DIGITAL COMMUNICATIONS Gender Identity Female 12/18/2021 6:31 AM CDT [...] COVID-19? No / Unsure 08/07/2021 9:32 AM DIRECTOR DIGITAL COMMUNICATIONS documented as of this encounter Last Filed Vital Signs Vital Sign Reading Time Taken Comments Blood Pressure 134/58 08/07/2021 9:35 AM DIRECTOR DIGITAL COMMUNICATIONS Pulse 72 08/07/2021 9:35 AM DIRECTOR DIGITAL COMMUNICATIONS Temperature 36.6 ??C (97.9 ??F) 08/07/2021 9:35 AM CS T Respiratory Rate 16 08/07/2021 9:35 AM DIRECTOR DIGITAL COMMUNICATIONS Oxygen Saturation 96% 08/07/2021 9:35 AM DIRECTOR DIGITAL COMMUNICATIONS Inhaled Oxygen Concentration - - Weight 112.5 kg (248 lb) 08/07/2021 9:35 AM DIRECTOR DIGITAL COMMUNICATIONS Height 153.7 cm (5' 0.5 ) 08/07/2021 9:35 AM DIRECTOR DIGITAL COMMUNICATIONS Body Mass Index 47.64 08/07/2021 9:35 AM DIRECTOR DIGITAL COMMUNICATIONS documented in this encounter Patient Instructions * Patient Instructions* Sami Liriano, - 08/07/2021 9:20 AM DIRECTOR DIGITAL COMMUNICATIONS Images from the original note were not [...] safe range may 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 You may be [...] at the next meal. Talk to your nurses educator about making a personal meal plan [...] whole grain like: ? White rice ? Hong Konger fries ? White pasta ? White bread [...] right for you. Copyright Copyright ?? 2020 [employer]. and its affiliates and/or licensors. All rights reserved. Patient Education Patient Education Diabetes and Diet The Basics Written by the doctors and editors at [employer] Why is diet important in diabetes???--??Diet is [...] process is complete. This topic retrieved from [employer] on: May 18, 2021. Topic 11830 Version 7.0 Release: 29.4.2 - C29.229 ?2020??[employer] and/or its affiliates.??All rights reserved. Consumer Information [...] of this information is governed by the [employer] End User License Agreement, available at https://www.[employer]/en/solutions/[employer]/about/arpita.The use of [employer] content is governed by the [employer] Terms of Use. ??2020 [employer]. All rights reserved. Copyright ?2020??[employer] and/or its affiliates.??All rights reserved. Patient Education [...] Control and Prevention https://www.cdc.gov/diabetes/basics/type2.html International Diabetes Foundation https://www.idf.org/aboutdiabetes/pwty-8-yfrkpsbt.html [employer] https://www.Chalkboard.[employer]/contents/rfsz-7-lkzqqyuu-bdjulmtf-cxapuv-nmr-basics Last Reviewed Date 2021-01-31 Consumer Information Use [...] right for you. Copyright Copyright ?? 2020 [employer]. and its affiliates and/or licensors. All rights reserved. CTOR DIGITAL COMMUNICATIONS documented in this encounter Progress Notes * Iwona Cohn MA - 08/07/2021 9:20 AM CSTAddended by: IWONA COHN on: 08/07/2021 10:28 AM Modules accepted: Orders CTOR DIGITAL COMMUNICATIONS * Sami Liriano DO - 08/07/2021 9:20 [...] TRANSPARENCY 07/14/2021 CLEAR CLEAR Final ??? Specific [place] (U) 07/14/2021 1.015 1.003 - 1.040 Final [...] Keenan MD at [facility] OR ??? EGD ??? HERNIA REPAIR [...] Not on file Occupational History ??? 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 Smoking status: Former Smoker [...] when fasting 100 strip 11 ??? Lancets ([employer] AGTOUCH ULTRASOFT) lancets Check blood sugar once daily [...] of insulin ([facility]) - CBC W/DIFF AUTOMATED; Future - ALBUMIN [...] and communicating test results. Sami Liriano DO CTOR DIGITAL COMMUNICATIONS documented in this encounter Plan of Treatment Upcoming Encounters Date Type Department Care Team (Late st Contact Info) Description 10/09/2024 9:30 AM DIRECTOR DIGITAL COMMUNICATIONS Office Visit [facility] [phone] Carlos Farris MD [facility] [address] [place] [address] 11/02/2024 10:20 AM DIRECTOR DIGITAL COMMUNICATIONS Office Visit [facility] Family & Internal Medicine [address] [phone] Sami Liriano DO [address] [place] [address] Scheduled Referrals Name Type Priority Associated Diagnoses Orde r Schedule Ambulatory Referral to Dietitian/Nutrition Referral Routine Type 2 diabetes mellitus without complication, without long-term current use of insulin ([facility] HHS/HCC) Ordered: 08/07/2021 documented as of this encounter Procedures Procedure Name Priority Date/Time Associated Diagnosis Comments TSH W/REFLEX Routine 08/07/2021 10:28 AM DIRECTOR DIGITAL COMMUNICATIONS Screening for endocrine, metabolic and immunity disorder ALBUMIN URINE RANDOM W/CREATININE Routine 08/07/2021 10:28 AM DIRECTOR DIGITAL COMMUNICATIONS Type 2 diabetes mellitus without complication, without long-term current use of insulin ([facility] HHS/HCC) COMPREHENSIVE METABOLIC PANEL Routine 08/07/2021 10:28 AM DIRECTOR DIGITAL COMMUNICATIONS Screening for endocrine, metabolic and immunity disorder LIPID PANEL Routine 08/07/2021 10:28 AM DIRECTOR DIGITAL COMMUNICATIONS Screening for lipid disorders CBC W/DIFF AUTOMATED Routine 08/07/2021 10:28 AM DIRECTOR DIGITAL COMMUNICATIONS Screening for endocrine, metabolic and immunity disorder Type 2 diabetes mellitus without complication, without long-term current use of insulin ([facility] HHS/HCC) VITAMIN D, 25 OH Routine 08/07/2021 10:2 8 AM DIRECTOR DIGITAL COMMUNICATIONS Vitamin D deficiency CK (CPK) Routine 08/07/2021 10:28 AM DIRECTOR DIGITAL COMMUNICATIONS Screening for lipid disorders documented in this encounter Results * CK (CPK) (08/07/2021 10:28 AM DIRECTOR DIGITAL COMMUNICATIONS) CPK 182 26 - 192 U/L 08/07/2021 5:09 PM DIRECTOR DIGITAL COMMUNICATIONS [facility] 08/07/2021 10:2 8 AM DIRECTOR DIGITAL COMMUNICATIONS Sami Liriano DO LABORATORY Final Re sult Performing Organization Address [facility]/ZIP Co de Phone Number [facility] [address] [place] [address], * ALBUMIN URINE RANDOM (08/07/2021 10:28 AM DIRECTOR DIGITAL COMMUNICATIONS) MICROALBUMIN (U) 6.7 <20 MG/L 08/07/20 4:29 PM DIRECTOR DIGITAL COMMUNICATIONS [facility] CREATININE RANDOM (U) 33.6 MG/DL 08/07/2021 4:29 PM DIRECTOR DIGITAL COMMUNICATIONS [facility] MICROALB/CREAT 19.9 <30 MG/G 08/07/2021 4:29 PM DIRECTOR DIGITAL COMMUNICATIONS [facility] URINE SPECIMEN / Unknown 08/07/2021 10:28 AM DIRECTOR DIGITAL COMMUNICATIONS Sami Liriano DO URINE ORDERABLES Final R esult Performing Organization Address [facility] Co de Phone Number [address] [phone], * (ABNORMAL) COMPREHENSIVE METABOLIC PANEL (08/07/2021 10:28 AM DIRECTOR DIGITAL COMMUNICATIONS) SODIUM S/P/B 141 136 - 145 MMOL/L 08/07/2021 5:09 PM DIRECTOR DIGITAL COMMUNICATIONS [facility] POTASSIUM S/P/B 3.2(L) 3.5 - 5.1 MMOL/L 08/07/2021 5:09 PM DIRECTOR DIGITAL COMMUNICATIONS [facility] CHLORIDE S/P/B 101 98 - 107 MMOL/L 08/07/2021 5:09 PM DIRECTOR DIGITAL COMMUNICATIONS [facility] CO2 28.9 21 - 32 MMOL/L 08/07/2021 5:09 PM [facility] GLUCOSE 130(H) 70 - 99 MG/DL 08/07/2021 5:09 PM [facility] BUN 34(H) 6 - 24 MG/DL 08/07/2021 5:09 PM [facility] CREATININE S/P/B 1.35(H) 0.55 - 1.02 MG/DL 08/07/2021 5:09 PM [facility] CALCIUM S/P/B 9.6 8.4 - 10.5 MG/DL 08/07/2021 5:09 PM [facility] BILIRUBIN TOTAL S/P/B 1.1(H) 0.2 - 1.0 MG/DL 08/07/2021 5:09 PM [facility] ALKALINE PHOSPHATASE S/P/B 92 55 - 142 U/L 08/07/2021 5:09 PM [facility] AST 21 15 - 37 U/L 08/07/2021 5:09 PM [facility] ALT 34 14 - 59 U/L 08/07/2021 5:09 PM [facility] TOTAL PROTEIN S/P/B 8.0 6.4 - 8.2 G/DL 08/07/2021 5:09 PM [facility] ALBUMIN S/P/B 4.4 3.4 - 5.0 G/DL 08/07/2021 5:09 PM [facility] ANION GAP 11.1 5 - 15 MMOL/L 08/07/2021 5:09 PM [facility] Comment:REFERENCE RANGE NOT ESTABLISHED OSMOLALITY (CALC) 301 MOSM/KG 08/07/2021 5:09 PM [facility] Comment:REFERENCE RANGE NOT ESTABLISHED EGFR NON-AFR. AMER. 40(L) >90 ML/MIN/1 .73 M2 08/07/2021 5:09 PM [facility] EGFR AFR. AMER. 47(L) >90 ML/MIN/1 .73 M2 08/07/2021 5:09 PM [facility] GFR NOTES THE ESTIMATED GFR IS CALCULATED USING THE 2009 CKD-EPI EQUATION. THE FOLLOWING CATEGORIES FOR GRADING RENAL FUNCTION ARE RECOMMENDED BY THE INTERNATIONAL SOCIETY OF NEPHROLOGY (KDIGO 2012 CLINICAL PRACTICE GUIDELINE). 08/07/2021 5:09 PM [facility] Comment: G1,NORMAL OR HIGH: >89 ml/min/1.73 m2 G2,MILDLY DECREASED: 60-89 ml/min/1.73 m2 G3A,MILDLY TO MODERATELY DECREASED: 45-59 ml/min/1.73 m2 G3B,MODERATELY TO SEVERELY DECREASED: 30-44 ml/min/1.73 m2 G4,SEVERELY DECREASED: 15-29 ml/min/1.73 m2 G5,KIDNEY FAILURE: <15 ml/min/1.73 m2 08/07/2021 10:2 8 AM DIRECTOR DIGITAL COMMUNICATIONS Sami Liriano DO LABORATORY Final Re sult Performing Organization Address City/[facility]/ZIP Co de Phone Number [facility] [address] [place] [address], * VITAMIN D, 25 OH (08/07/2021 10:28 AM DIRECTOR DIGITAL COMMUNICATIONS) VITAMIN D 25 HYDROXY TOTAL S/P/B 20.7 20 - 50 NG/ML 08/07/2021 5:09 PM [facility] Comment: <10 ng/mL (Severe deficiency) 10 TO 19 ng/mL (Mild to Moderate deficiency) 20 TO 50 ng/mL (Optimum levels) 51 TO 80 ng/mL (Increased risk of hypercalciuria) >80 ng/mL (Toxicity possible) 08/07/2021 10:2 8 AM DIRECTOR DIGITAL COMMUNICATIONS Sami Liriano DO LABORATORY Final Re sult [facility] [address] [place] [address], * TSH W/REFLEX (08/07/2021 10:28 AM DIRECTOR DIGITAL COMMUNICATIONS) TSH 1.839 0.358 - 3.740 uIU/ML 08/07/2021 5:09 PM DIRECTOR DIGITAL COMMUNICATIONS [facility] 08/07/2021 10:2 8 AM DIRECTOR DIGITAL COMMUNICATIONS Sami Liriano DO LABORATORY Final Re sult CARA KAMILA, [place] [place] [address], * (ABNORMAL) LIPID PANEL (08/07/2021 10:28 AM DIRECTOR DIGITAL COMMUNICATIONS) CHOLESTEROL 153 <200 MG/DL 08/07/2021 5:09 PM DIRECTOR DIGITAL COMMUNICATIONS [facility] TRIGLYCERIDES 161(H) <150 MG/DL 08/07/2021 5:09 PM [facility] HDL 47 >40 MG/DL 08/07/2021 5:09 PM [facility] LDL-C 74 <100 MG/DL 08/07/2021 5:09 PM [facility] VLDL CALCULATION 32(H) 5 - 28 MG/DL 08/07/2021 5:09 PM [facility] CHOL/HDL RATIO 3.3 0.0 - 4.0 08/07/2021 5:09 PM [facility] LDL/HDL 1.6 0.41 - 2.13 08/07/2021 5:09 PM [facility] NON HDL CHOLESTEROL 106 <140 MG/DL 08/07/2021 5:09 PM [facility] 08/07/2021 10:2 8 AM DIRECTOR DIGITAL COMMUNICATIONS us Sami Liriano DO LABORATORY Final Re sult ALEAH TREVIOÑ [place] [address] [facility] [place] [address], [place] [phone] * (ABNORMAL) CBC W/DIFF AUTOMATED (08/07/2021 10:28 AM DIRECTOR DIGITAL COMMUNICATIONS) WBC 12.0(H) 4.0 - 10.8 x10'3/uL 08/07/2021 2:21 PM DIRECTOR DIGITAL COMMUNICATIONS [facility] [place] RBC 4.42 4.10 - 5.40 x10'6/uL 08/07/2021 2:21 PM [facility] HGB 12.5 12.0 - 16.0 G/DL 08/07/2021 2:21 PM [facility] HCT 38.4 36.0 - 47.0 % 08/07/2021 2:21 PM DIRECTOR DIGITAL COMMUNICATIONS [facility] MCV 86.9 78.0 - 100.0 FL 08/07/2021 2:21 PM [facility] MCH 28.3 27.0 - 31.0 PG 08/07/2021 2:21 PM [facility] MCHC 32.6(L) 33.0 - 36.0 G/DL 08/07/2021 2:21 PM [facility] RDW 14.8(H) 11.5 - 14.5 % 08/07/2021 2:21 PM [facility] PLT 268 150 - 350 x10'3/uL 08/07/2021 2:21 PM [facility] MPV 10.4 7.4 - 10.4 FL 08/07/2021 2:21 PM [facility] DIFFERENTIAL TYPE AUTOMATED DIFFERENTIAL 08/07/2021 2:21 PM DIRECTOR DIGITAL COMMUNICATIONS [facility] NEUTROPHILS % 62.5 % 08/07/2021 2:21 PM DIRECTOR DIGITAL COMMUNICATIONS [facility] LYMPHOCYTES % 28.8 % 08/07/2021 2:21 PM DIRECTOR DIGITAL COMMUNICATIONS [facility] MONOCYTES % 6.8 % 08/07/2021 2:21 PM DIRECTOR DIGITAL COMMUNICATIONS [facility] EOSINOPHILS % 1.6 % 08/07/2021 2:21 PM DIRECTOR DIGITAL COMMUNICATIONS [facility] BASOPHILS % 0.3 % 08/07/2021 2:21 PM DIRECTOR DIGITAL COMMUNICATIONS [facility] ABS. NEUTROPHILS 7.49 1.60 - 8.30 x10'3/uL 08/07/2021 2:21 PM DIRECTOR DIGITAL COMMUNICATIONS [facility] ABS. LYMPHOCYTES 3.45 0.80 - 4.70 x10'3/uL 08/07/2021 2:21 PM DIRECTOR DIGITAL COMMUNICATIONS [facility] ABS. MONOCYTES 0.82 0.00 - 1.50 x10'3/uL 08/07/2021 2:21 PM DIRECTOR DIGITAL COMMUNICATIONS [facility] ABS. EOSINOPHILS 0.19 0.00 - 0.40 x10'3/uL 08/07/2021 2:21 PM DIRECTOR DIGITAL COMMUNICATIONS [facility] ABS. BASOPHILS 0.03 0.00 - 0.20 x10'3/uL 08/07/2021 2:21 PM DIRECTOR DIGITAL COMMUNICATIONS [facility] 08/07/2021 10:2 8 AM DIRECTOR DIGITAL COMMUNICATIONS us Sami Liriano DO LABORATORY Final Re sult [facility] [address] [place] [address], [place] [phone] documented in this encounter Visit Diagnoses Diagnosis Type 2 diabetes mellitus without complication, without long-term current use of insulin ([facility]/HCC)- Primary Vitamin D deficiency Unspecified vitamin D deficiency Screening for lipid disorders Screening for endocrine, metabolic and immunity disorder documented in this encounter Additional Health Concerns Assessment Noted Time PHQ-9 Depression Total Score: 5 06/22/20 21 10:07 AM CDT documented as of this encounter Care Teams Production Repairer Relationship Specialty Start Date End Date Sami Liriano DO [address] [place] [address] PCP - General FAMILY PRACTICE 12/24/19 documented as of this encounter
--- OUTSIDE RECORDS SUMMARY | 2024-09-19 19:41 | XMS_ITS | Encounter Summary ---
Author Organization [facility] Address [facility] 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 No / Unsure 09/19/2021 9:43 AM DEVELOPMENTAL BEHAVIORAL PHYSICIAN documented as of this encounter Plan of Treatment Upcoming Encounters Date Type Department Care Team (Late st Contact Info) Description 10/09/2024 9:30 AM DEVELOPMENTAL BEHAVIORAL PHYSICIAN Office Visit [facility] [phone] Carlos Farris MD [address] [facility] [address] [place] [address] 11/02/2024 10:20 AM DEVELOPMENTAL BEHAVIORAL PHYSICIAN Office Visit [facility] Family & Internal Medicine - [address] [phone] Sami Liriano DO [address] [place] [address] documented as of this encounter Visit Diagnoses Not on filedocumented in this encounter Additional Health Concerns Assessment Noted Time PHQ-9 Depression Total Score: 5 06/22/20 21 10:07 AM CDT documented as of this encounter Care Teams Stitcher Standard Machine Relationship Specialty Start Date End Date Sami Liriano DO [address] [place] [address] PCP - General FAMILY PRACTICE 12/24/19 documented as of this encounter
--- OUTSIDE RECORDS SUMMARY | 2024-09-19 19:41 | XMS_ITS | Encounter Summary ---
Author Organization [facility] Address [facility] [facility] 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 No / Unsure 09/04/2021 10:27 AM MEDICAL PROFESSIONALS documented as of this encounter Plan of Treatment Upcoming Encounters Date Type Department Care Team (Late st Contact Info) Description 10/09/2024 9:30 AM MEDICAL PROFESSIONALS Office Visit [facility] [phone] Carlos Farris MD Three [facility] [address] [place] [address] 11/02/2024 10:20 AM MEDICAL PROFESSIONALS Office Visit [facility] Family & Internal Medicine - [address] [phone] Sami Liriano DO [address] [place] [address] documented as of this encounter Visit Diagnoses Not on filedocumented in this encounter Additional Health Concerns Assessment Noted Time PHQ-9 Depression Total Score: 5 06/22/20 21 10:07 AM CDT documented as of this encounter Care Teams Motion Study Analyst Relationship Specialty Start Date End Date Sami Liriano DO [address] [place] [address] PCP - General FAMILY PRACTICE 12/24/19 documented as of this encounter
--- OUTSIDE RECORDS SUMMARY | 2024-09-19 19:41 | XMS_ITS | Encounter Summary ---
Author Organization [facility] Address [address] [place] [address]. [place], [place] [address] [place] [address] Care Team Providers Care Wheel Tuner Name Role Phone Sami Liriano DO Primary Care Provider + Reason for Visit * Reason Onset Date Comments Pre Appt Labs 07/13/2021 Encounter Details Date Type Department Care Team (Late st Contact Info) Description 07/13/2021 Telephone [facility] Family & Internal Medicine [facility] [address] [place] [address] Sami Liriano DO [facility] [place] [address] Pre Appt Labs Social History [...] file Legal Sex Female 12:43 PM SCIENCE TUTOR Gender Identity Female 12/18/2021 6:31 AM CDT [...] Contact Info) Description 10/09/2024 9:30 AM SCIENCE TUTOR Office Visit [facility]-[address] [phone] Carlos Farris MD [address] [facility] [address] [facility] [place] [address] 11/02/2024 10:20 AM SCIENCE TUTOR Office Visit [facility] Family & Internal Medicine - [address] [phone] Sami Liriano DO [address] [place] [address] documented as of this encounter Visit Diagnoses Not on filedocumented in this encounter Additional Health Concerns Assessment Noted Time PHQ-9 Depression Total Score: 5 06/22/20 21 10:07 AM CDT documented as of this encounter Care Teams Wheel Tuner Relationship Specialty Start Date End Date Sami Liriano DO [address] [place] [address] PCP - General FAMILY PRACTICE 12/24/19 documented as of this encounter
--- OUTSIDE RECORDS SUMMARY | 2024-09-19 19:41 | XMS_ITS | Encounter Summary ---
Author Organization [facility] Address [address] [place] [address]. [place], [place] [address] [place] [address] Care Team Providers Care Medical Chemist Name Role Phone Sami Gimenez DO Primary Care Provider + Reason for Visit * Reason Onset Date Comments Results 09/15/2021 Encounter Details Date Type Department Care Team (Late st Contact Info) Description 09/15/2021 Telephone [facility] Family & Internal Medicine [phone] [place] [address] Sami Gimenez DO [facility] [place] [address] Results Social History Tobacco Use [...] file Legal Sex Female 12:43 PM OPTICAL INSTRUMENT INSPECTOR Gender Identity Female 12/18/2021 6:31 AM CDT Sexual Orientation Straight 01/15/2022 6: 11 AM CDT 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 No / Unsure 09/04/2021 10:27 AM OPTICAL INSTRUMENT INSPECTOR documented as of this encounter Progress Notes * Radha Oglesby MA - 09/15/2021 3:30 PM CST Refill request received from Pharmacy Last visit with SAMI GIMENEZ in FAMILY PRACTICE was on: 08/07/2021 in [facility] Future Appointments Date Time Provider Department Center 09/19/2021 9:40 AM Sami Gimenez DO [id number] [facility] 12/05/2021 10:20 AM Sami Pinto MD MGPULSOF [facility] 02/16/2022 10:00 AM Erik Bowling MD [facility] 02/16/2022 1:20 PM Sami Pinto MD MGPULSEV [id number] [id number] - [address] [address] Current Outpatient Medications: ??? acetaminophen 325 MG [...] Chronic Pain, Disp: 60 tablet, Rfl: 0 CAL INSTRUMENT INSPECTOR documented in this encounter Plan of Treatment Upcoming Encounters Date Type Department Care Team (Late st Contact Info) Description 10/09/2024 9:30 AM OPTICAL INSTRUMENT INSPECTOR Office Visit [facility] [phone] Carlos Farris MD [facility] [address] [place] [address] 11/02/2024 10:20 AM OPTICAL INSTRUMENT INSPECTOR Office Visit [facility] Family & Internal Medicine - [address] [address] Sami Gimenez, [address] [place] [address] documented as of this encounter Visit Diagnoses [...] as of this encounter Care Teams Medical Chemist Relationship Specialty Start Date End Date Sami Gimenez DO [address] [place] [address] PCP - General FAMILY PRACTICE 12/24/19 documented as of this encounter
--- OUTSIDE RECORDS SUMMARY | 2024-09-19 19:41 | XMS_ITS | Encounter Summary ---
Author Organization [facility] Address [facility]. [place], [place] [address] [place] [address] Care Team Providers Care Fishery Division Chief Name Role Phone Sami Liriano Primary Care [...] file Legal Sex Female 12:43 PM MANAGER OF EMPLOYEE RELATIONS Gender Identity Female 12/18/2021 6:31 AM CDT [...] Contact Info) Description 10/09/2024 9:30 AM MANAGER OF EMPLOYEE RELATIONS Office Visit [facility] [phone] Carlos Farris MD Three [facility] [address] [place] [address] 11/02/2024 10:20 AM MANAGER OF EMPLOYEE RELATIONS Office Visit [facility] Family & Internal Medicine - [address] [phone] Sami Liriano DO [address] [place] [address] documented as of this encounter Visit Diagnoses Not on filedocumented in this encounter Additional Health Concerns Assessment Noted Time PHQ-9 Depression Total Score: 5 06/22/20 21 10:07 AM CDT documented as of this encounter Care Teams Fishery Division Chief Relationship Specialty Start Date End Date Sami Liriano DO [address] [place] [address] PCP - General FAMILY PRACTICE 12/24/19 documented as of this encounter
--- OUTSIDE RECORDS SUMMARY | 2024-09-19 19:41 | XMS_ITS | Encounter Summary ---
Author Organization [facility] Address [facility]. 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 I will ask Cristina to send referral. ARTEMIO Garcia documented in this encounter Plan of Treatment Upcoming Encounters Date Type Department Care Team (Late st Contact Info) Description 10/09/2024 9:30 AM CAGE CASHIER Office Visit [facility]-[address] [phone] Carlos Farris MD [facility] Suite [facility] [place] [address] 11/02/2024 10:20 AM CAGE CASHIER Office Visit [facility] Family & Internal Medicine - [place] [address] [place] [address] Sami Liriano DO [address] [place] [address] documented as of this encounter Visit Diagnoses Not on filedocumented in this encounter Additional Health Concerns Assessment Noted Time PHQ-9 Depression Total Score: 5 06/22/20 21 10:07 AM CDT documented as of this encounter Care Teams Cryogenic Transport Driver Relationship Specialty Start Date End Date Sami Liriano DO [address] [place] [address] PCP - General FAMILY PRACTICE 12/24/19 documented as of this encounter
--- OUTSIDE RECORDS SUMMARY | 2024-09-19 19:41 | XMS_ITS | Encounter Summary ---
Author Organization [facility] Address [address] [place] [address]. [place], [place] [address] [place] [address] Care Team Providers Care Feather Curling Machine Operator Name Role Phone Sami Liriano DO Primary Care Provider + Reason for Visit * Reason Onset Date Comments Advise 10/06/2021 Encounter Details Date Type Department Care Team (Late st Contact Info) Description 10/06/2021 Telephone [facility] Family & Internal Medicine [facility] [address] [place] [address] Sami Liriano DO [facility] [place] [address] Advise Social History Tobacco Use [...] on file Legal Sex Female 12:43 PM HOSPITAL MEDICAL BILLER Gender Identity Female 12/18/2021 6:31 AM CDT [...] COVID-19? No / Unsure 09/19/2021 9:43 AM HOSPITAL MEDICAL BILLER documented as of this encounter Progress Notes * Radha Oglesby MA - 10/06/2021 3:42 PM CST Left detailed message , rx and order sent 10/06/21 ITAL MEDICAL BILLER ITAL MEDICAL BILLER * Sami Liriano DO - 10/06/2021 10:55 AM CST Noted; let's do an Charles confirmatory test. Tyelnol for fevers. Can do Tessalon Perles if she'd like. ITAL MEDICAL BILLER * Maria Del Rosario York - 10/06/2021 10:41 AM CST Patient is wanting to inform us that on 10/04, she tested positive fr covid on an at home test. She is having sore throat, dry cough and 103 fever. ITAL MEDICAL BILLER documented in this encounter Plan of Treatment Upcoming Encounters Date Type Department Care Team (Late st Contact Info) Description 10/09/2024 9:30 AM HOSPITAL MEDICAL BILLER Office Visit [facility]-[address] [phone] Carlos Farris MD [facility] Suite [facility] [place] [address] 11/02/2024 10:20 AM HOSPITAL MEDICAL BILLER Office Visit [facility] Group Family & Internal Medicine - [address] [place] [address] Sami Liriano DO [address] [place] [address] Scheduled Orders Name Type Priority Associated Diagnoses Orde r Schedule EXTERNAL ORDER COVID19 Microbiology Routine Cough Sore throat Fever Expected: 10/06/2021, Expires: 10/06/2022 documented as of this encounter Visit Diagnoses Diagnosis Cough- Primary Sore throat Acute pharyngitis Fever Fever, unspecified documented in this encounter Additional Health Concerns Infection Onset Date Last Indicated Resolved Time COVID-19 Rule Out 10/06/2021 10/11/2021 10/11/2021 8:45 AM HOSPITAL MEDICAL BILLER Assessment Noted Time PHQ-9 Depression Total Score: 5 06/22/20 21 10:07 AM CDT documented as of this encounter Care Teams Feather Curling Machine Operator Relationship Specialty Start Date End Date Sami Liriano DO [address] [place] [address] PCP - General FAMILY PRACTICE 12/24/19 documented as of this encounter
--- OUTSIDE RECORDS SUMMARY | 2024-09-19 19:41 | XMS_ITS | Encounter Summary ---
Author Organization [facility] Address [address] [place] [address]. [place], [place] [address] [place] [address] Care Team Providers Care Extraction Machine Operator Name Role Phone Sami Liriano DO Primary Care Provider + Reason for Visit * Reason Onset Date Comments Pre-visit Gap Closure 07/31/2021 Encounter Details Date Type Department Care Team (Late st Contact Info) Description 07/31/2021 Telephone [facility] Family & Internal Medicine [address] [place] [address] Sami Liriano DO [facility] [place], [place] [phone] Pre-visit Gap Closure Social History Tobacco Use [...] on file Legal Sex Female 12:43 PM PUTTY REMOVER Gender Identity Female 12/18/2021 6:31 AM CDT [...] Standard Work Program. My direct extension is 1106. You can also reach me at: [phone] (MEENA) [place] [phone] (JEVON) documented in this encounter Plan of Treatment Upcoming Encounters Date Type Department Care Team (Late st Contact Info) Description 10/09/2024 9:30 AM PUTTY REMOVER Office Visit [facility]-[address] [phone] Carlos Farris MD Three [facility] Bl Suite [facility] [place] [address] 11/02/2024 10:20 AM PUTTY REMOVER Office Visit [facility] Group Family & Internal Medicine - [address] [address] Sami Liriano DO [address] [place] [address] documented as of this encounter Visit Diagnoses Not on filedocumented in this encounter Additional Health Concerns Assessment Noted Time PHQ-9 Depression Total Score: 5 06/22/20 21 10:07 AM CDT documented as of this encounter Care Teams Extraction Machine Operator Relationship Specialty Start Date End Date Sami Liriano DO [address] [place] [address] PCP - General FAMILY PRACTICE 12/24/19 documented as of this encounter
--- OUTSIDE RECORDS SUMMARY | 2024-09-19 19:41 | XMS_ITS | Encounter Summary ---
Author Organization [facility] Address [address] [place] [address]. [place], [place] [address] [place] [address] Care Team Providers Care Central Supply Supervisor Name Role Phone Sami Liriano DO Primary Care Provider + Reason for Visit * Reason Onset Date Comments Error 09/15/2021 Encounter Details Date Type Department Care Team (Late st Contact Info) Description 09/15/2021 Telephone [facility] Family & Internal Medicine [address] [place] [address] Sami Liriano DO [facility] [place] [address] Error Social History Tobacco Use [...] on file Legal Sex Female 12:43 PM RETAIL MAINTENANCE TECHNICIAN Gender Identity Female 12/18/2021 6:31 AM CDT Sexual Orientation Straight 01/15/2022 6: 11 AM CDT 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 Yes 10/19/2021 1:15 PM RETAIL MAINTENANCE TECHNICIAN documented as of this encounter Plan of Treatment Upcoming Encounters Date Type Department Care Team (Late st Contact Info) Description 10/09/2024 9:30 AM RETAIL MAINTENANCE TECHNICIAN Office Visit [facility]-[address] [address] Carlos Farris MD [facility] [address] [place] [address] 11/02/2024 10:20 AM RETAIL MAINTENANCE TECHNICIAN Office Visit [facility] Family & Internal Medicine - [address] [address] Sami Liriano DO [address] [place] [address] documented as of this encounter Visit Diagnoses Not on filedocumented in this encounter Additional Health Concerns Infection Onset Date Last Indicated Resolved Time COVID-19 Rule Out 10/06/2021 10/11/2021 10/11/2021 8:45 AM RETAIL MAINTENANCE TECHNICIAN COVID-19 Rule Out 10/11/2021 10/11/2021 10/12/2021 1:13 AM RETAIL MAINTENANCE TECHNICIAN COVID-19 Confirmed 10/11/2021 10/11/2021 12:35 AM RETAIL MAINTENANCE TECHNICIAN Assessment Noted Time PHQ-9 Depression Total Score: 5 06/22/20 21 10:07 AM CDT documented as of this encounter Care Teams Central Supply Supervisor Relationship Specialty Start Date End Date Sami Liriano DO [address] [place] [address] PCP - General FAMILY PRACTICE 12/24/19 documented as of this encounter
--- OUTSIDE RECORDS SUMMARY | 2024-09-19 19:41 | XMS_ITS | Encounter Summary ---
Author Organization [facility] Address [facility]. [place], [place] [address] [place] [address] Care Team Providers Care Transition Coach Name Role Phone Sami Liriano DO Primary Care Provider + Reason for Visit * Reason Comments Consult Dr. Liriano Breathing Problem SORTO * Consultation (Routine) - Closed Specialty Diagnoses / Procedures Referred By Shereen t Referred To Contact CARDIOLOGY / Cardiology Diagnoses Dyspnea on exertion Procedures OV Sami Liriano DO [address] [place] [address] Phone: tel: fax: Erik Bowling MD 3 [facility] [address] [place] [address] Phone: tel: fax: Referral ID Status Reason Start Date Expiration Date V isits Requested Visits Authorized [id number] Closed Specialty Services 06/15/2021 06/14/2022 6 6 Encounter Details Date Type Department Care Team (Latest Contact Info) Description 06/16/2021 10:30 AM CDT Office Visit [facility]-[address] [phone] Erik Bowling MD 3 [facility] [address] [place] [phone] Consult (Dr. Liriano); Breathing Problem (SORTO) [...] on file Legal Sex Female 12:43 PM INSOLE PRESSER Gender Identity Female 12/18/2021 6:31 AM [...] on her legs. She recently [facility] to [facility] with shortnessof breath and the [...] performed by Joel Keenan MD at [facility] [place] ??? EGD ??? HERNIA REPAIR ??? [...] PGF (Not Specified) Social grew up in [place] was moved to [place] for many years work for [employer].She [...] drinker no illicit drugs. 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 ?? eGFR Non-Afr. Amer. > [place] = [...] 03-03-20 EKG SR,78 ,NONSPECIFIC T WAVE ABN. [id number] linda doppler lower ext bilat - negative 02-05-15 lexiscan stress- no ischemia,ef 67 05-25-21 cxr - 2 view-normal Diagnoses/Impression: 1. Dyspnea on exertion 2. Essential hypertension Chronic 3. Mixed hyperlipidemia 4. Overactive bladder Chronic 5. Gastroesophageal reflux disease, unspecified whether esophagitis present Chronic 6. Current mild episode of major depressive disorder without prior episode ([facility]) Chronic 7. Arthritis of left knee Chronic 8. ALLYSON positive 9. Stage 3a chronic kidney disease ([facility]) Referring Provider: Sami Liriano DO PCP: Sami Liriano DO documented in this encounter Plan of Treatment Upcoming Encounters Date Type Department Care Team (Late st Contact Info) Description 10/09/2024 9:30 AM INSOLE PRESSER Office Visit [facility]-[address] [phone] Carlos Farris MD [facility] [address] [place] [address] 11/02/2024 10:20 AM INSOLE PRESSER Office Visit [facility] Group Family & Internal Medicine - [address] [address] Sami Liriano DO [address] [place] [address] documented as of this encounter Visit Diagnoses Diagnosis Dyspnea on exertion- Primary Other dyspnea and respiratory abnormality Essential hypertension Unspecified essential hypertension Mixed hyperlipidemia Overactive bladder Hypertonicity of bladder Gastroesophageal reflux disease, unspecified whether esophagitis present Current mild episode of major depressive disorder without prior episode ([facility]) Arthritis of left knee Unspecified arthropathy, lower leg ALLYSON positive Other and unspecified nonspecific immunological findings Stage 3a chronic kidney disease ([facility]) documented in this encounter Additional Health Concerns Assessment Noted Time PHQ-9 Depression Total Score: 12 12/15/2 021 8:10 AM CDT documented as of this encounter Care Teams Transition Coach Relationship Specialty Start Date End Date Sami Liriano DO [address] [place] [address] PCP - General FAMILY PRACTICE 12/24/19 documented as of this encounter
--- OUTSIDE RECORDS SUMMARY | 2024-09-19 19:41 | XMS_ITS | Encounter Summary ---
Author Organization [facility] Address [facility]6 [facility]. [place], [place] [address] [place] [address] Care Team Providers Care Shell Shop Supervisor Name Role Phone Sami Liriano Primary Care Provider + Reason for Visit * Reason Onset Date Comments Results 07/21/2021 Encounter Details Date Type Department Care Team (Late st Contact Info) Description 07/21/[address] [phone] Radha Hodgson, RN Results Social History Tobacco [...] on file Legal Sex Female 12:43 PM PUNCH PRESS SETTER Gender Identity Female 12/18/2021 6:31 AM CDT [...] st Contact Info) Description 10/09/2024 9:30 AM PUNCH PRESS SETTER Office Visit [facility]-[address] [phone] Carlos Farris MD Three [facility] Suite [facility] [place] [address] 11/02/2024 10:20 AM PUNCH PRESS SETTER Office Visit [facility] Group Family & Internal Medicine - [address] [phone] Sami Liriano DO [address] [place] [address] documented as of this encounter Visit Diagnoses Not on filedocumented in this encounter Additional Health Concerns Assessment Noted Time PHQ-9 Depression Total Score: 5 06/22/20 21 10:07 AM CDT documented as of this encounter Care Teams Shell Shop Supervisor Relationship Specialty Start Date End Date Sami Liriano DO [facility] [place] [address] PCP - General FAMILY PRACTICE 12/24/19 documented as of this encounter
--- OUTSIDE RECORDS SUMMARY | 2024-09-19 19:41 | XMS_ITS | Encounter Summary ---
Author Organization [facility] Address [address] [place] [address]. [place], [place] [address] [place] [address] Care Team Providers Care Pin Drafter Operator Name Role Phone Sami Liriano Primary Care Provider + Encounter Details Date Type Department Care Team (Late st Contact Info) Description 07/17/2021 Orders Only 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 Not on [...] Contact Info) Description 10/09/2024 9:30 AM LOAN ASSISTANT Office Visit [facility] [address] Carlos Farris MD Three [facility] [address] [place] [address] 11/02/2024 10:20 AM LOAN ASSISTANT Office Visit [facility] Group Family & Internal Medicine - [address] [phone] Sami Liriano DO [address] [place] [address] documented as of this encounter Results * (ABNORMAL) PRO-BRAIN NATRIURETIC PEPTIDE (07/17/2021 8:31 AM CDT) PRO-B TYPE NATRIURETIC PEPTIDE 266(H) <125 PG/ML 07/17/2021 9:04 AM CDT [facility] Comment: CUT POINTS ESTABLISHED BY INTERNATIONAL [...] us Erik Bowling MD LABORATORY Final Result [facility] 3 [place] [address], documented in this encounter Visit Diagnoses Diagnosis Sleep disturbances- Primary Sleep disturbance, unspecified Edema Shortness of breath HTN (hypertension) Unspecified essential hypertension documented in this encounter Additional Health Concerns Assessment Noted Time PHQ-9 Depression Total Score: 5 06/22/20 21 10:07 AM CDT documented as of this encounter Care Teams Pin Drafter Operator Relationship Specialty Start Date End Date Sami Liriano DO [address] [place] [address] PCP - General FAMILY PRACTICE 12/24/19 documented as of this encounter
--- OUTSIDE RECORDS SUMMARY | 2024-09-19 19:41 | XMS_ITS | Encounter Summary ---
Author Organization [facility] Address [address] [place] [address]. [place], [place] [address] [place] [address] Care Team Providers Care Immunology Teacher Name Role Phone Sami Liriano DO Primary Care Provider + Reason for Visit * Reason Onset Date Comments Lab Results 06/23/2021 Encounter Details Date Type Department Care Team (Late st Contact Info) Description 06/23/2021 Telephone [facility] Family & Internal Medicine [phone] [place] [address] Sami Liriano DO [facility] [place] [address] Lab Results Social History Tobacco [...] on file Legal Sex Female 12:43 PM CARTON COUNTER FEEDER Gender Identity Female 12/18/2021 6:31 AM [...] st Contact Info) Description 10/09/2024 9:30 AM CARTON COUNTER FEEDER Office Visit [facility]-[address] [phone] Carlos Farris MD Three [facility] [address] [facility] [place] [address] 11/02/2024 10:20 AM CARTON COUNTER FEEDER Office Visit [facility] Family & Internal Medicine - [address] [phone] Sami Liriano DO [address] [place] [address] documented as of this encounter Visit Diagnoses Diagnosis Elevated serum creatinine- Primary Other nonspecific findings on examination of blood documented in this encounter Additional Health Concerns Assessment Noted Time PHQ-9 Depression Total Score: 5 06/22/20 21 10:07 AM CDT documented as of this encounter Care Teams Immunology Teacher Relationship Specialty Start Date End Date Sami Liriano DO [address] [place] [address] PCP - General FAMILY PRACTICE 12/24/19 documented as of this encounter
--- OUTSIDE RECORDS SUMMARY | 2024-09-19 19:41 | XMS_ITS | Encounter Summary ---
Author Organization [facility] Address [facility]ly [facility]6 [facility]. [place], [place] [address] [place] [address] Care Team Providers Care Fire Pilot Name Role Phone Sami Liriano DO Primary Care Provider + Reason for Referral * Consultation (Routine) - Closed Specialty Diagnoses / Procedures Referred By Shereen t Referred To Contact SLEEP & RESPIRATORY CARE Diagnoses MOR (obstructive sleep apnea) Erik Bowling MD 3 [facility] [address] [place] [address] Phone: tel: fax: Sami Pinto MD 3 [facility] [address] [place] [address] Phone: tel: fax: Referral ID Status Reason Start Date Expiration Date Visits Re quested Visits Authorized [id number] Closed 07/14/2021 08/14/2022 1 1 Encounter Details Date Type Department Care Team (Late st Contact Info) Description 07/14/2021 Orders Only [facility] THREE [facility] [address] [place], [place] [id number] Erik Bowling MD 3 [facility] [address] [place] [phone] Social History Tobacco Use Types Packs/Day Years [...] on file Legal Sex Female 12:43 PM LAUNDRY HELPER Gender Identity Female 12/18/2021 6:31 AM CDT Sexual Orientation Straight 01/15/2022 6: 11 AM CDT 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 [address] [facility] [place] [address] 11/02/2024 10:20 AM LAUNDRY HELPER Office Visit [facility] Family & Internal Medicine - [address] [phone] Sami Liriano, [address] [place] [address] Scheduled Referrals Name Type Priority Associated Diagnoses [...] as of this encounter Care Teams Fire Pilot Relationship Specialty Start Date End Date Sami Liriano DO [address] [place] [address] PCP - General FAMILY PRACTICE 12/24/19 documented as of this encounter
--- OUTSIDE RECORDS SUMMARY | 2024-09-19 19:41 | XMS_ITS | Encounter Summary ---
Author Organization [facility] Address [facility]. [place], [place] [address] [place] [address] Care Team Providers Care Supervisor Cellars Name Role Phone Sami Liriano DO Primary Care Provider + Reason for Visit * Reason Comments Type 2 Diabetes * Consultation (Routine) - Closed Specialty Diagnoses / Procedures Referred By Contact Referred To Contact NUTRITION / ENDOCRINOLOGY Diagnoses Type 2 diabetes mellitus without complication, without long-term current use of insulin ([facility]) Sami Liriano DO [address] [place] [address] Phone: tel:[phone] fax:[phone] [facility] Diabetes and Endocrinology - [address] [address] Phone: tel: fax: Referral ID Status Reason Start Date Expiration Date Visits Re quested Visits Authorized [id number] Closed 08/07/2021 09/07/2022 99 99 Encounter Details Date Type Department Care Team (Late st Contact Info) Description 09/04/2021 11:00 AM PLASTERER ROUGH Office Visit [facility] Diabetes and Endocrinology - [address] Type 2 Diabetes Social [...] on file Legal Sex Female 12:43 PM PLASTERER ROUGH Gender Identity Female 12/18/2021 6:31 AM CDT Sexual Orientation Straight 01/15/2022 6: 11 AM CDT 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 No / Unsure 09/04/2021 10:27 AM PLASTERER ROUGH documented as of this encounter Progress Notes [...] Uncontrolled type 2 diabetes mellitus with hyperglycemia ([facility]) NUTRITION ASSESSMENT CLIENT HISTORY Age: 66-year-old PMH: [...] to knee issues, but does have the Acturis program. Discussing swimming or using the recumbent [...] needed / desired. Maude Siegel RD 09/04/2021 TERER ROUGH documented in this encounter Plan of Treatment Upcoming Encounters Date Type Department Care Team (Late st Contact Info) Description 10/09/2024 9:30 AM PLASTERER ROUGH Office Visit [facility] [address] Carlos Farris MD [address] [facility] [address] [place] [address] 11/02/2024 10:20 AM PLASTERER ROUGH Office Visit [facility] Family & Internal Medicine - [address] [address] Sami Liriano DO [address] [place] [address] documented as of this encounter Visit Diagnoses Diagnosis Uncontrolled type 2 diabetes mellitus with hyperglycemia ([facility])- Primary documented in this encounter Additional Health Concerns Assessment Noted Time PHQ-9 Depression Total Score: 5 06/22/20 21 10:07 AM CDT documented as of this encounter Care Teams Supervisor Cellars Relationship Specialty Start Date End Date Sami Liriano DO [address] [place] [address] PCP - General FAMILY PRACTICE 12/24/19 documented as of this encounter
--- OUTSIDE RECORDS SUMMARY | 2024-09-19 19:42 | XMS_ITS | Encounter Summary ---
Author Organization [facility] Address [address] [place] [address]. [place], [place] [address] [place] [address] Care Team Providers Care Shoe Dresser Name Role Phone Sami Liriano DO Primary Care Provider + Reason for Visit * Reason Onset Date Comments Results 05/29/2021 Covid Encounter Details Date Type Department Care Team (Late st Contact Info) Description 05/29/2021 Telephone [facility] Family & Internal Medicine [facility] [address] [place] [address] Sami Liriano DO [facility] [place] [address] Results (Covid) Social History Tobacco [...] on file Legal Sex Female 12:43 PM TEAMSITE DEVELOPER Gender Identity Female 12/18/2021 6:31 AM [...] st Contact Info) Description 10/09/2024 9:30 AM TEAMSITE DEVELOPER Office Visit [facility]-[address] [phone] Carlos Farris MD [facility] [address] [place] [address] 11/02/2024 10:20 AM TEAMSITE DEVELOPER Office Visit [facility] Family & Internal Medicine - [address] [phone] Sami Liriano DO [address] [place] [address] documented as of this encounter Visit Diagnoses Not on filedocumented in this encounter Additional Health Concerns Assessment Noted Time PHQ-9 Depression Total Score: 12 12/15/ 021 8:10 AM CDT documented as of this encounter Care Teams Shoe Dresser Relationship Specialty Start Date End Date Sami Liriano DO [address] [place] [address] PCP - General FAMILY PRACTICE 12/24/19 documented as of this encounter
--- OUTSIDE RECORDS SUMMARY | 2024-09-19 19:42 | XMS_ITS | Encounter Summary ---
Author Organization [facility] Address [address] [place] [address]. [place], [place] [address] [place] [address] Care Team Providers Care Retail Property Manager Name Role Phone Sami Liriano DO Primary Care Provider + Reason for Visit * Reason Onset Date Comments Results 05/26/2021 Encounter Details Date Type Department Care Team (Late st Contact Info) Description 05/26/[address] 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 Family & Internal Medicine - [address] [address] Sami Liriano DO [address] [place] [address] documented as of this encounter Visit Diagnoses Not on filedocumented in this encounter Additional Health Concerns Infection Onset Date Last Indicated Resolved Time COVID-19 Rule Out 05/25/2021 05/25/2021 05/27/2021 4:08 AM CDT Assessment Noted Time PHQ-9 Depression Total Score: 12 12/15/ 021 8:10 AM CDT documented as of this encounter Care Teams Retail Property Manager Relationship Specialty Start Date End Date Sami Liriano DO [address] [place] [address] PCP - General FAMILY PRACTICE 12/24/19 documented as of this encounter
--- OUTSIDE RECORDS SUMMARY | 2024-09-19 19:42 | XMS_ITS | Encounter Summary ---
Author Organization [facility] Address [address] [place] [address]. [place], [place] [address] [place] [address] Care Team Providers Care Professor Of Floriculture Name Role Phone Sami Liriano DO Primary Care Provider + Encounter Details Date Type Department Care Team (Latest Contact Info) Description 05/25/2021 - 05/25/2021 11:59 PM CDT Hospital Encounter [facility] [address] [facility] [place] [address] Sami Liriano DO [address] [place] [address] Discharge Disposition: Home or Self [...] on file Legal Sex Female 12:43 PM ELECTROLYSIS OPERATOR Gender Identity Female 12/18/2021 6:31 AM [...] st Contact Info) Description 10/09/2024 9:30 AM ELECTROLYSIS OPERATOR Office Visit [facility]-[address] [phone] Carlos Farris MD [facility] [address] [place] [address] 11/02/2024 10:20 AM ELECTROLYSIS OPERATOR Office Visit [facility] Family & Internal Medicine - [address] [address] Sami Liriano DO [address] [place] [address] documented as of this encounter Visit Diagnoses Not on filedocumented in this encounter Additional Health Concerns Infection Onset Date Last Indicated Resolved Time COVID-19 Rule Out 05/25/2021 05/25/2021 05/27/2021 4:08 AM CDT Assessment Noted Time PHQ-9 Depression Total Score: 12 12/15/2 021 8:10 AM CDT documented as of this encounter Care Teams Professor Of Floriculture Relationship Specialty Start Date End Date Sami Liriano DO [address] [place] [address] PCP - General FAMILY PRACTICE 12/24/19 documented as of this encounter
--- OUTSIDE RECORDS SUMMARY | 2024-09-19 19:42 | XMS_ITS | Encounter Summary ---
Author Organization [facility] Address [facility]6 [facility]. 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 Not [...] st Contact Info) Description 10/09/2024 9:30 AM IT LEAD Office Visit [facility] [address] Carlos Farris MD [facility] [address] [facility] [place] [address] 11/02/2024 10:20 AM IT LEAD Office Visit [facility] Family & Internal Medicine - [address] [address] Sami Liriano DO [address] [place] [address] documented as of this encounter Visit Diagnoses Not on filedocumented in this encounter Additional Health Concerns Assessment Noted Time PHQ-9 Depression Total Score: 12 12/15/2 021 8:10 AM CDT documented as of this encounter Care Teams Bush Regenerator Relationship Specialty Start Date End Date Sami Liriano DO [address] [place] [address] PCP - General FAMILY PRACTICE 12/24/19 documented as of this encounter
--- OUTSIDE RECORDS SUMMARY | 2024-09-19 19:42 | XMS_ITS | Encounter Summary ---
Author Organization [facility] Address [address] [place] [address]. [place], [place] [address] [place] [address] Care Team Providers Care Pole Inspector Name Role Phone Sami Liriano DO Primary Care Provider + Reason for Visit * Reason Onset Date Comments Results 05/29/2021 Encounter Details Date Type Department Care Team (Late st Contact Info) Description 05/29/[address] [facility] Family & Internal Medicine [place] [address] [place] [address] Sami Liriano DO [address] [place] [address] Results Social History Tobacco Use Types [...] on file Legal Sex Female 12:43 PM MGMT ANALYST Gender Identity Female 12/18/2021 6:31 AM [...] st Contact Info) Description 10/09/2024 9:30 AM MGMT ANALYST Office Visit [facility]-[address] [phone] Carlos Farris MD Three [facility] [address] [place] [address] 11/02/2024 10:20 AM MGMT ANALYST Office Visit [facility] Family & Internal Medicine - [address] [address] Sami Liriano DO [address] [place] [address] documented as of this encounter Visit Diagnoses Not on filedocumented in this encounter Additional Health Concerns Assessment Noted Time PHQ-9 Depression Total Score: 12 03/18/2 021 8:10 AM CDT documented as of this encounter Care Teams Pole Inspector Relationship Specialty Start Date End Date Sami Liriano DO [address] [place] [address] PCP - General FAMILY PRACTICE 12/24/19 documented as of this encounter
--- OUTSIDE RECORDS SUMMARY | 2024-09-19 19:42 | XMS_ITS | Encounter Summary ---
Author Organization [facility] Address [facility]6 [facility]. 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 [address] [place] [address] 11/02/2024 10:20 AM PAPER TWISTER Office Visit [facility] Family & Internal Medicine - [address] [address] Sami Liriano DO [address] [place] [address] documented as of this encounter Visit Diagnoses Not on filedocumented in this encounter Additional Health Concerns Assessment Noted Time PHQ-9 Depression Total Score: 12 12/15/2 021 8:10 AM CDT documented as of this encounter Care Teams Certified Performance Technologist Relationship Specialty Start Date End Date Sami Liriano DO [address] [place] [address] PCP - General FAMILY PRACTICE 12/24/19 documented as of this encounter
--- OUTSIDE RECORDS SUMMARY | 2024-09-19 19:42 | XMS_ITS | Encounter Summary ---
Author Organization [facility] Address [address] [place] [address]. [place], [place] [address] [place] [address] Care Team Providers Care Orthopedics Pediatric Physician Name Role Phone Sami Liriano DO Primary Care Provider + Reason for Visit * Reason Comments Breathing Problem pili er follow u p Edema Encounter Details Date Type Department Care Team (Late st Contact Info) Description 06/14/2021 10:20 AM CDT Office Visit [facility] Family & Internal Medicine [address] [address] Sami Liriano DO [address] [place] [address] [phone] Breathing Problem ([place] er follow up ); Edema Social History [...] on file Legal Sex Female 12:43 PM MULTIPLE CUT OFF SAW OPERATOR Gender Identity Female 12/18/2021 6:31 [...] Complaint: 66-year-old female presents for Breathing Problem ([place] er follow up ) and Edema HPI: [...] performed by Joel Keenan MD at [facility] OR ??? EGD ??? HERNIA REPAIR ??? [...] Not on file Occupational History ??? 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 Smoking status: Former Smoker [...] Gatherings with Friends and Family: ??? Attends Christian Services: ??? Active Member of Clubs or [...] st Contact Info) Description 10/09/2024 9:30 AM MULTIPLE CUT OFF SAW OPERATOR Office Visit [facility]-[address] [address] Carols Farris MD Three [facility] [address] [place] [address] 11/02/2024 10:20 AM MULTIPLE CUT OFF SAW OPERATOR Office Visit [facility] Family & Internal Medicine - [address] [address] Sami Liriano DO [facility] [place] [address] documented as of this encounter Visit Diagnoses Diagnosis Dyspnea on exertion- Primary Other dyspnea and respiratory abnormality Essential hypertension Unspecified essential hypertension Positive ALLYSON (antinuclear antibody) Other and unspecified nonspecific immunological findings documented in this encounter Additional Health Concerns Assessment Noted Time PHQ-9 Depression Total Score: 12 12/15/2 021 8:10 AM CDT documented as of this encounter Care Teams Orthopedics Pediatric Physician Relationship Specialty Start Date End Date Sami Liriano DO [address] [place] [address] PCP - General FAMILY PRACTICE 12/24/19 documented as of this encounter
--- OUTSIDE RECORDS SUMMARY | 2024-09-19 19:42 | XMS_ITS | Encounter Summary ---
Author Organization [facility] Address [facility]. [place], [place] [address] [place] [address] Care Team Providers Care Escort Service Attendant Name Role Phone Tracy Gimenez DO Primary Care Provider + Reason for Referral * Consultation (Routine) - Closed Specialty Diagnoses / Procedures Referred By Contleydi t Referred To Contact CARDIOLOGY / Cardiology Diagnoses Dyspnea on exertion Procedures OV Tracy Gimenez DO [address] [place] [address] Phone: tel: fax: Erik Bowling MD [address] [place] [phone] Phone: tel: fax: Referral ID Status Reason Start Date Expiration Date V isits Requested Visits Authorized [id number] Closed Specialty Services 06/15/2021 06/14/2022 6 6 Reason for Visit * Reason Comments Follow [facility] Encounter Details Date Type Department Care Team (Late st Contact Info) Description 05/25/2021 9:40 AM CDT Office Visit [facility] Medical Group Family & Internal Medicine [facility] [address] [place] [address] Tracy Gimenez DO [address] [place] [address] Follow Up ([facility] ) Social History [...] on file Legal Sex Female 12:43 PM CLOUD PHYSICIST Gender Identity Female 12/18/2021 6:31 AM CDT Sexual Orientation Straight 01/15/2022 6: 11 AM CDT 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 EGD ??? HERNIA REPAIR [...] file Occupational History ??? 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 Smoking status: Former [...] Gatherings with Friends and Family: ??? Attends Alevism Services: ??? Active Member of Clubs or [...] exertion - Ambulatory referral to Cardiology, Adult ([facility]) - CORONAVIRUS (COVID 19) PCR ([facility]); Future - XR CHEST PA+LAT; Future Essential [...] st Contact Info) Description 10/09/2024 9:30 AM CLOUD PHYSICIST Office Visit [facility] [phone] Carlos Farris MD [facility] [address] [place] [address] 11/02/2024 10:20 AM CLOUD PHYSICIST Office Visit [facility] Medical Group Family & Internal Medicine - [address] [phone] Tracy Gimenez DO [address] [place] [address] Scheduled Referrals Name Type Priority Associated Diagnoses Orde r Schedule Ambulatory referral to Cardiology, Adult ([facility]) Referral Routine Dyspnea on exertion Ordered: [...] encounter Results * CORONAVIRUS (COVID 19) PCR ([facility]) (05/25/2021 8:02 PM CDT) SPEC DESCRIPTION NASAL 05/25/20 8:02 PM CDT [facility] CORONAVIRUS SARS COV 2 PCR (RESP) NEGATIVE NEGATIVE 05/27/2021 4:07 AM CDT [facility] Comment: THE SARS-CoV-2 TEST HAS BEEN AUTHORIZED BY THE FDA UNDER AN EUA FOR USE BY AUTHORIZED LABORATORIES. PERFORMED BY NUCLEIC ACID AMPLIFICATION PCR FIRST TEST YES 05/25/2021 8:02 PM CDT [facility] EMPLOYED IN HEALTHCARE NO 05/25/2021 8:02 PM CDT [facility] SYMPTOMATIC DEFINED BY CDC YES 05/25/2021 8:02 PM CDT [facility] DATE OF SYMPTOM ONSET [id number]/25/2021 8:02 PM CDT [facility] HOSPITALIZATION STATUS NO 05/25/2021 8:02 PM CDT [facility] PATIENT IN ICU NO 05/25/2021 8:02 PM CDT [facility] RESIDENT OF [facility] C[facility] NO 05/25/2021 8:02 PM CDT [facility] NASOPHARYNGEAL SWAB / Unknown 05/25/2021 8:02 PM CDT us Tracy Gimenez DO MICROBIOLOGY - GENERAL O RDERABLES Final Result [facility] [address] [place] [address], * XR CHEST PA+LAT (05/25/2021 10:43 AM [...] <1.00 <1.00 Index 05/29/2021 4:22 PM CDT [facility] ANTONINA LIZARRAGA Comment: INDEX ?INTERPRETATION ----- ? [...] providers and patients using the following websites: https://www.adsquare.com/home/Covid-19/HCP/ antibody/fact-sheet9 https://www.adsquare.Insightfulinc/home/Covid-19/ Patients/antibody/fact-sheet9 Healthcare Providers: For additional information please refer to http://education.[employer].Insightfulinc/ faq/JSB898(This link is being provided for informational/educational purposes only.) This test has been authorized by the FDA under an Emergency Use Authorization(EUA)for use by authorized laboratories. The FDA authorized labeling is available on the eyetok website: www.adsquare. com/Covid19. Test Performed by Jesse Vidales apomio Maria Luisa [facility], [address] [place] [address] Grzegorz Gomez M.D., Ph.D., Director of Laboratories , [place] [id number] FIRST TEST YES 05/25/2021 10:32 AM CDT MINE MONTOYA EMPLOYED IN HEALTHCARE NO 05/25/2021 10:32 AM CDT NITHYA MONTOYAFIELD SYMPTOMATIC DEFINED BY CDC YES 05/25/2021 10:32 AM CDT MINE MACKENZIE DATE OF SYMPTOM ONSET [id number]/25/2021 10:32 AM CDT MINE MACKENZIE HOSPITALIZATION STATUS NO 05/25/2021 10:32 AM CDT HETAL TREVIÑO MINE PATIENT IN ICU NO 05/25/2021 10:32 AM CDT CARA TREVIÑO SLEETMUTE RESIDENT OF [facility] C[facility] NO 05/25/2021 10:32 AM CDT HETAL TREVIÑO MINE UNKNOWN 06/26/2021 3:57 PM CDT [facility] NITHYA TREVIÑOFIELD PATIENT'S RACE WHITE OR CAU 05/25/2021 10:32 AM CDT [facility] KAMILA SLEETMUTE ETHNICITY NOT OF HISP 05/25/2021 10:32 AM CDT [facility] KAMILA SLEETMUTE SOURCE (QST) UNKNOWN 06/26/2021 3:57 PM CDT [facility] KAMILA SLEET[place]UTE 05/25/2021 10:3 2 AM CDT us Tracy Gimenez DO LABORATORY Final Re sult WILLISMINE TEJADA [address] [place] [address], [employer] [facility] [facility] [address] [place], [place] , [place] [phone] * (ABNORMAL) BASIC METABOLIC PANEL (05/25/2021 10:31 AM CDT) [facility] SODIUM S/P/B 138 136 - 145 MMOL/L 05/25/2021 9:58 PM CDT -[facility] POTASSIUM S/P/B 3.5 3.5 - 5.1 MMOL/L 05/25/2021 9:58 PM CDT [facility] CHLORIDE S/P/B 101 98 - 107 MMOL/L 05/25/2021 9:58 PM CDT [facility] CO2 29.6 21 - 32 MMOL/L 05/25/2021 9:58 PM CDT [facility] GLUCOSE 118(H) 70 - 99 MG/DL 05/25/2021 9:58 PM CDT [facility] BUN 23 6 - 24 MG/DL 05/25/2021 9:58 PM CDT [facility] CREATININE S/P/B 1.02 0.55 - 1.02 MG/DL 05/25/2021 9:58 PM CDT [facility] CALCIUM S/P/B 9.2 8.4 - 10.5 MG/DL 05/25/2021 9:58 PM CDT [facility] ANION GAP 7.4 5 - 15 MMOL/L 05/25/2021 9:58 PM CDT [facility] Comment:REFERENCE RANGE NOT ESTABLISHED OSMOLALITY (CALC) 291 MOSM/KG 05/25/2021 9:58 PM CDT [facility] Comment:REFERENCE RANGE NOT ESTABLISHED EGFR NON-AFR. AMER. 56(L) >90 ML/MIN/1 .73 M2 05/25/2021 9:58 PM CDT [facility] EGFR AFR. AMER. 65(L) >90 ML/MIN/1 .73 M2 05/25/2021 9:[address] [facility] NITHYA TREVIÑOFIELD GFR NOTES THE ESTIMATED GFR IS CALCULATED USING THE 2009 CKD-EPI EQUATION. THE FOLLOWING CATEGORIES FOR GRADING RENAL FUNCTION ARE RECOMMENDED BY THE INTERNATIONAL SOCIETY OF NEPHROLOGY (KDIGO 2012 CLINICAL PRACTICE GUIDELINE). 05/25/2021 9:58 PM CDT [facility] Comment: G1,NORMAL OR HIGH: >89 ml/min/1.73 m2 G2,MILDLY DECREASED: 60-89 ml/min/1.73 m2 G3A,MILDLY TO MODERATELY DECREASED: 45-59 ml/min/1.73 m2 G3B,MODERATELY TO SEVERELY DECREASED: 30-44 ml/min/1.73 m2 G4,SEVERELY DECREASED: 15-29 ml/min/1.73 m2 G5,KIDNEY FAILURE: <15 ml/min/1.73 m2 05/25/2021 10:3 1 AM CDT Tracy Gimenez DO LABORATORY Final Re sult [facility] TREVI[facility]O SLEET[facility] [address] [facility] [place] [address], documented in this encounter Visit Diagnoses Diagnosis [...] documented as of this encounter Care Teams Escort Service Attendant Relationship Specialty Start Date End Date Tracy Gimenez DO [address] [place] [address] PCP - General FAMILY PRACTICE 12/24/19 documented as of this encounter
--- OUTSIDE RECORDS SUMMARY | 2024-09-19 19:42 | XMS_ITS | Encounter Summary ---
Author Organization [facility] Address [facility]. [place], [place] [address] [place] [address] Care Team Providers Care Client Support Analyst Name Role Phone Sami Liriano Primary [...] on file Legal Sex Female 12:43 PM AIRPLANE ELECTRICAL REPAIRER Gender Identity Female 12/18/2021 6:31 AM [...] st Contact Info) Description 10/09/2024 9:30 AM AIRPLANE ELECTRICAL REPAIRER Office Visit [facility] [address] Carlos Farris MD [address] [facility] [address] [place] [address] 11/02/2024 10:20 AM AIRPLANE ELECTRICAL REPAIRER Office Visit [facility] Medical Group Family & Internal Medicine - [address] [phone] Sami Liriano DO [address] [place] [address] documented as of this encounter Visit Diagnoses Not on filedocumented in this encounter Additional Health Concerns Infection Onset Date Last Indicated Resolved Time COVID-19 Rule Out 05/25/2021 05/25/2021 05/27/2021 4:08 AM CDT Assessment Noted Time PHQ-9 Depression Total Score: 12 12/15/ 021 8:10 AM CDT documented as of this encounter Care Teams Client Support Analyst Relationship Specialty Start Date End Date Sami Liriano DO [address] [place] [address] PCP - General FAMILY PRACTICE 12/24/19 documented as of this encounter
--- OUTSIDE RECORDS SUMMARY | 2024-09-19 19:42 | XMS_ITS | Encounter Summary ---
Author Organization [facility] Address [facility]. [place], [place] [address] [place] [address] Care Team Providers Care Music Journalist Name Role Phone Sami Liriano Primary Care [...] 10/09/2024 9:30 AM LAMINATION ASSEMBLER Office Visit [facility] [phone] Carlos Farris MD Three [facility] [address] [place] [address] 11/02/2024 10:20 AM LAMINATION ASSEMBLER Office Visit [facility] Medical Group Family & Internal Medicine - [address] [address] Sami Liriano DO [address] [place] [address] documented as of this encounter Visit Diagnoses Not on filedocumented in this encounter Additional Health Concerns Assessment Noted Time PHQ-9 Depression Total Score: 12 12/15/2 021 8:10 AM CDT documented as of this encounter Care Teams Music Journalist Relationship Specialty Start Date End Date Sami Liriano DO [address] [place] [address] PCP - General FAMILY PRACTICE 12/24/19 documented as of this encounter
--- OUTSIDE RECORDS SUMMARY | 2024-09-19 19:42 | XMS_ITS | Encounter Summary ---
Author Organization [facility] Address [facility]6 [facility] 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 Not on [...] st Contact Info) Description 10/09/2024 9:30 AM RESIDENTIAL FIELD MANAGER Office Visit [facility] [address] Carlos Farris MD Three [facility] [address] [place] [address] 11/02/2024 10:20 AM RESIDENTIAL FIELD MANAGER Office Visit [facility] Medical Group Family & Internal Medicine - [address] [address] Sami Liriano DO [address] [place] [address] documented as of this encounter Visit Diagnoses Not on filedocumented in this encounter Additional Health Concerns Assessment Noted Time PHQ-9 Depression Total Score: 12 12/15/2 021 8:10 AM CDT documented as of this encounter Care Teams Journalism Instructor Relationship Specialty Start Date End Date Sami Liriano DO [address] [place] [address] PCP - General FAMILY PRACTICE 12/24/19 documented as of this encounter
--- OUTSIDE RECORDS SUMMARY | 2024-09-19 19:42 | XMS_ITS | Encounter Summary ---
Author Organization [facility] Address [address] [place] [address]. [place], [place] [address] [place] [address] Care Team Providers Care Computing Architect Name Role Phone Sami Liriano DO Primary Care Provider + Reason for Visit * Reason Onset Date Comments Appointment Request 05/30/2021 LOADER OPERATOR Cardiolog y Consult Encounter Details Date Type Department Care Team (Late st Contact Info) Description 05/30/2021 Telephone [facility] [address] [phone] Sami Liriano DO [address] [place] [address] Appointment Request (LOADER OPERATOR Cardiology Consult) Social History Tobacco Use Types [...] file Legal Sex Female 12:43 PM SENIOR BIOSTATISTICIAN/GROUP LEADER Gender Identity Female 12/18/2021 6:31 AM CDT Sexual Orientation Straight 01/15/2022 6: 11 AM CDT 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 No / Unsure 05/25/2021 9:32 AM CDT documented as of this encounter Progress Notes * Nanda Dialol - 05/30/2021 11:00 AM CDT Left message on vm for patient to schedule cardiology consult per Dr. Sami Liriano (x1) documented in this encounter Plan of Treatment Upcoming Encounters Date Type Department Care Team (Late st Contact Info) Description 10/09/2024 9:30 AM SENIOR BIOSTATISTICIAN/GROUP LEADER Office Visit [facility]-[address] [phone] Carlos Farris MD Three [facility] [address] [place] [address] 11/02/2024 10:20 AM SENIOR BIOSTATISTICIAN/GROUP LEADER Office Visit [facility] Medical Group Family & Internal Medicine - [address] [phone] Sami Liriano DO [address] [place] [address] documented as of this encounter Visit Diagnoses Not on filedocumented in this encounter Additional Health Concerns Assessment Noted Time PHQ-9 Depression Total Score: 12 021 8:10 AM CDT documented as of this encounter Care Teams Computing Architect Relationship Specialty Start Date End Date Sami Liriano DO [address] [place] [address] PCP - General FAMILY PRACTICE 12/24/19 documented as of this encounter
--- OUTSIDE RECORDS SUMMARY | 2024-09-19 19:42 | XMS_ITS | Encounter Summary ---
Author Organization [facility] Address [address] [place] [address]. [place], [place] [address] [place] [address] Care Team Providers Care Seasonal Driver Name Role Phone Sami Liriano DO Primary Care Provider + Reason for Visit * Reason Onset Date Comments Medication Request 03/03/2021 Encounter Details Date Type Department Care Team (Late st Contact Info) Description 03/03/2021 Telephone [facility] Medical Group Family & Internal Medicine [facility] [address] [place] [address] Sami Liriano DO [facility] [place] [address] Medication Request Social History Tobacco [...] Legal Sex Female 12:43 PM VICE PRESIDENT COMMERCIAL BANK Gender Identity Female 12/18/2021 6:31 AM CDT [...] Info) Description 10/09/2024 9:30 AM VICE PRESIDENT COMMERCIAL BANK Office Visit [facility] [phone] [facility] [address] [facility] [place] [address] 11/02/2024 10:20 AM VICE PRESIDENT COMMERCIAL BANK Office Visit [facility] Medical Group Family & Internal Medicine - [address] [phone] Sami Liriano DO [address] [place] [address] documented as of this encounter Visit Diagnoses Diagnosis Pneumonia of both lower lobes due to infectious organism- Primary documented in this encounter Additional Health Concerns Assessment Noted Time PHQ-9 Depression Total Score: 12 12/15/ 021 8:10 AM CDT documented as of this encounter Care Teams Seasonal Driver Relationship Specialty Start Date End Date Sami Liriano DO [facility] [place] [address] PCP - General FAMILY PRACTICE 12/24/19 documented as of this encounter
--- OUTSIDE RECORDS SUMMARY | 2024-09-19 19:42 | XMS_ITS | Encounter Summary ---
Author Organization [facility] Address [facility]. [place], [place] [address] [place] [address] Care Team Providers Care House Admin Name Role Phone Sami Liriano Nicole AGUIAR Primary Care Provider + Reason for Visit * Reason Comments Allied Health Visit rocephin injection Encounter Details Date Type Department Care Team (Latest Contact Info) Description 03/03/2021 9:00 AM CDT Allied Health/Nurse Visit [facility] Medical Group Family & Internal Medicine [address] [phone] Allied Health Visit (rocephin injection) [...] on file Legal Sex Female 12:43 PM VINYL TOP INSTALLER Gender Identity Female 12/18/2021 6:31 AM [...] st Contact Info) Description 10/09/2024 9:30 AM VINYL TOP INSTALLER Office Visit [facility] [address] Carlos Farris MD Three [facility] [address] [place] [address] 11/02/2024 10:20 AM VINYL TOP INSTALLER Office Visit [facility] Medical Group Family & Internal Medicine - [address] [phone] Sami Liriano DO [address] [place] [address] documented as of this encounter Visit Diagnoses [...] documented as of this encounter Care Teams House Admin Relationship Specialty Start Date End Date Sami Liriano DO [address] [place] [address] PCP - General FAMILY PRACTICE 12/24/19 documented as of this encounter
--- OUTSIDE RECORDS SUMMARY | 2024-09-19 19:42 | XMS_ITS | Encounter Summary ---
Author Organization [facility] Address [facility] [place], [place] [address] [place] [address] Care Team Providers Care Well Logging Captain Mud Analysis Name Role Phone Sami Liriano Primary Care Provider + Reason for Visit * Reason Comments Allied Health Visit rocephin injection Encounter Details Date Type Department Care Team (Latest Contact Info) Description 03/02/2021 8:40 AM CDT Allied Health/Nurse Visit [facility] Medical Group Family & Internal Medicine [address] [phone] Allied Health Visit (rocephin injection) [...] on file Legal Sex Female 12:43 PM HEADER 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 Gender Identity Female 12/18/2021 6:31 [...] st Contact Info) Description 10/09/2024 9:30 AM HEADER 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 Office Visit [facility] [phone] Carlos Farris MD [address] [facility] [address] [place] [address] 11/02/2024 10:20 AM HEADER 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 Office Visit [facility] Medical Group Family & Internal Medicine - [address] [phone] Sami Liriano DO [address] [place] [address] documented as of this encounter Visit Diagnoses [...] documented as of this encounter Care Teams Well Logging Captain Mud Analysis Relationship Specialty Start Date End Date Sami Liriano DO [address] [place] [address] PCP - General FAMILY PRACTICE 12/24/19 documented as of this encounter
--- OUTSIDE RECORDS SUMMARY | 2024-09-19 19:42 | XMS_ITS | Encounter Summary ---
Author Organization [facility] Address [facility] [place], [place] [address] [place] [address] Care Team Providers Care Offender Employment Specialist Name Role Phone Sami Liriano Primary Care Provider + Reason for Visit * Reason Onset Date Comments Consult 06/09/2021 Encounter Details Date Type Department Care Team (Late st Contact Info) Description 06/09/2021 Telephone [place] [phone] Brooke Acosta, RMA Consult Social History Tobacco [...] Legal Sex Female 12:43 PM VICE PRESIDENT INTEGRATED Gender Identity Female 12/18/2021 6:31 AM CDT [...] Info) Description 10/09/2024 9:30 AM VICE PRESIDENT INTEGRATED Office Visit [facility]-[address] [phone] Carlos Farris MD [facility] [address] [place] [address] 11/02/2024 10:20 AM VICE PRESIDENT INTEGRATED Office Visit [facility] Medical Group Family & Internal Medicine - [address] [phone] Sami Liriano DO [address] [place] [address] documented as of this encounter Visit Diagnoses Not on filedocumented in this encounter Additional Health Concerns Assessment Noted Time PHQ-9 Depression Total Score: 12 12/15/2 021 8:10 AM CDT documented as of this encounter Care Teams Offender Employment Specialist Relationship Specialty Start Date End Date Sami Liriano DO [address] [place] [address] PCP - General FAMILY PRACTICE 12/24/19 documented as of this encounter
--- OUTSIDE RECORDS SUMMARY | 2024-09-19 19:42 | XMS_ITS | Encounter Summary ---
Author Organization [facility] Address [facility] [place], [place] [address] [place] [address] Care Team Providers Care Care Attendant Name Role Phone Sami Liriano Nicole AGUIAR Primary Care Provider + Reason for Visit * Reason Comments Allied Health Visit BP check Encounter Details Date Type Department Care Team (Latest Contact Info) Description 05/18/2021 12:40 PM CDT Allied Health/Nurse Visit [facility] Medical Group Family & Internal Medicine [address] [phone] Allied Health Visit (BP check) [...] on file Legal Sex Female 12:43 PM ADULT REMEDIAL EDUCATION INSTRUCTOR Gender Identity Female 12/18/2021 6:31 [...] st Contact Info) Description 10/09/2024 9:30 AM ADULT REMEDIAL EDUCATION INSTRUCTOR Office Visit [facility]-[address] [phone] Carlos Farris MD [facility] [address] [place] [address] 11/02/2024 10:20 AM ADULT REMEDIAL EDUCATION INSTRUCTOR Office Visit [facility] Medical Group Family & Internal Medicine - [address] [phone] Sami Liriano DO [address] [place] [address] documented as of this encounter Visit Diagnoses Diagnosis Hypertension- Primary Unspecified essential hypertension documented in this encounter Additional Health Concerns Assessment Noted Time PHQ-9 Depression Total Score: 12 12/15/ 021 8:10 AM CDT documented as of this encounter Care Teams Care Attendant Relationship Specialty Start Date End Date Sami Liriano DO [address] [place] [address] PCP - General FAMILY PRACTICE 12/24/19 documented as of this encounter
--- OUTSIDE RECORDS SUMMARY | 2024-09-19 19:42 | XMS_ITS | Encounter Summary ---
Author Organization [facility] Address [facility]. [place], [place] [address] [place] [address] Care Team Providers Care Sales Process Manager Name Role Phone Sami Liriano Primary [...] on file Legal Sex Female 12:43 PM TERRAZZO LAYER Gender Identity Female 12/18/2021 6:31 AM CDT [...] st Contact Info) Description 10/09/2024 9:30 AM TERRAZZO LAYER Office Visit [facility] [phone] Carlos Farris MD [address] [facility] [address] [place] [address] 11/02/2024 10:20 AM TERRAZZO LAYER Office Visit [facility] Medical Group Family & Internal Medicine - [address] [phone] Sami Liriano DO [address] [place] [address] documented as of this encounter Procedures Procedure [...] as of this encounter Care Teams Sales Process Manager Relationship Specialty Start Date End Date Sami Liriano DO [address] [place] [address] [phone] PCP - General FAMILY PRACTICE 12/24/19 documented as of this encounter
--- OUTSIDE RECORDS SUMMARY | 2024-09-19 19:42 | XMS_ITS | Encounter Summary ---
Author Organization [facility] Address [address] [place] [address]. [place], [place] [address] [place] [address] Care Team Providers Care Biology Adjunct Instructor Name Role Phone Sami Liriano DO Primary Care Provider + Reason for Visit * Reason Onset Date Comments Lab Results 05/31/2021 Encounter Details Date Type Department Care Team (Late st Contact Info) Description 05/31/2021 Telephone [facility] Medical Group Family & Internal Medicine [facility] [address] [place] [address] Sami Liriano DO [facility]1 [place] [address] Lab Results Social History Tobacco [...] on file Legal Sex Female 12:43 PM TOOLMAKER Gender Identity Female 12/18/2021 6:31 AM CDT [...] st Contact Info) Description 10/09/2024 9:30 AM TOOLMAKER Office Visit [facility]-[address] [phone] Carlos Farris MD [address] [facility] [address] [facility]0 [place] [address] 11/02/2024 10:20 AM TOOLMAKER Office Visit [facility] Medical Group Family & Internal Medicine - [address] [phone] Sami Liriano DO [address] [place] [address] documented as of this encounter Visit Diagnoses Not on filedocumented in this encounter Additional Health Concerns Assessment Noted Time PHQ-9 Depression Total Score: 12 021 8:10 AM CDT documented as of this encounter Care Teams Biology Adjunct Instructor Relationship Specialty Start Date End Date Sami Liriano DO [address] [place] [address] PCP - General FAMILY PRACTICE 12/24/19 documented as of this encounter
--- OUTSIDE RECORDS SUMMARY | 2024-09-19 19:42 | XMS_ITS | Encounter Summary ---
Author Organization [facility] Address [facility]. [place], [place] [address] [place] [address] Care Team Providers Care Railroad Car Loader Name Role Phone Sami Liriano DO Primary Care Provider + Reason for Referral * Consultation (Routine) - Closed Specialty Diagnoses / Procedures Referred By Contleydi t Referred To Contact RHEUMATOLOGY Diagnoses Positive ALLYSON (antinuclear antibody) Sami Liriano DO [address] [place] [address] Phone: tel: fax: Chris Bowen MD [address] [address] Phone: tel: fax: Referral ID Status Reason Start Date Expiration Date V isits Requested Visits Authorized [id number] Closed Specialty Services 04/19/2021 05/19/2022 99 99 Reason for Visit * Reason Onset Date Comments Referral Request 04/19/2021 Encounter Details Date Type Department Care Team (Late st Contact Info) Description 04/19/2021 Telephone [facility] Medical Group Family & Internal Medicine [facility] [address] [place] [address] Sami Liriano DO [address] [place] [address] Referral Request Social History Tobacco [...] file Legal Sex Female 12:43 PM SALES DESIGNER Gender Identity Female 12/18/2021 6:31 AM CDT Sexual Orientation Straight 01/15/2022 6: 11 AM CDT 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 Not on file Not on farnck e documented as of this encounter Progress [...] Contact Info) Description 10/09/2024 9:30 AM SALES DESIGNER Office Visit [facility]-[address] [phone] Carlos Farris MD [facility] [address] [place] [id number] 11/02/2024 10:20 AM SALES DESIGNER Office Visit [facility] Medical Group Family & Internal Medicine - [address] [phone] Sami Liriano DO [address] [place] [address] Scheduled Referrals Name Type Priority Associated Diagnoses [...] documented as of this encounter Care Teams Railroad Car Loader Relationship Specialty Start Date End Date Sami Liriano DO [address] [place] [address] PCP - General FAMILY PRACTICE 12/24/19 documented as of this encounter
--- OUTSIDE RECORDS SUMMARY | 2024-09-19 19:42 | XMS_ITS | Encounter Summary ---
Author Organization [facility] Address [address] [place] [address]. [place], [place] [address] [place] [address] Care Team Providers Care Gse Mechanic Name Role Phone Sami Liriano DO Primary Care Provider + Reason for Visit * Reason Onset Date Comments Follow Up Call 03/14/2021 Encounter Details Date Type Department Care Team (Late st Contact Info) Description 03/14/2021 Telephone [facility] Medical Group Family & Internal Medicine [facility] [address] [place] [address] Sami Liriano DO [facility] [place], [place] [phone] Follow Up Call Social History Tobacco Use [...] on file Legal Sex Female 12:43 PM FASHION COORDINATOR Gender Identity Female 12/18/2021 6:31 AM CDT Sexual Orientation Straight 01/15/2022 6: 11 AM CDT 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 Not [...] st Contact Info) Description 10/09/2024 9:30 AM FASHION COORDINATOR Office Visit [facility]-[address] [phone] Carlos Farris MD [facility] [address] [place] [address] 11/02/2024 10:20 AM FASHION COORDINATOR Office Visit [facility] Medical Group Family & Internal Medicine - [address] [address] Sami Liriano DO [address] [place] [address] documented as of this encounter Visit Diagnoses Not on filedocumented in this encounter Additional Health Concerns Assessment Noted Time PHQ-9 Depression Total Score: 12 021 8:10 AM CDT documented as of this encounter Care Teams Gse Mechanic Relationship Specialty Start Date End Date Sami Liriano DO [address] [place] [address] PCP - General FAMILY PRACTICE 12/24/19 documented as of this encounter
--- OUTSIDE RECORDS SUMMARY | 2024-09-19 19:42 | XMS_ITS | Encounter Summary ---
Author Organization [facility] Address [address] [place] [address]. [place], [place] [address] [place] [address] Care Team Providers Care Electrical Assembly Technician Name Role Phone Sami Liriano DO Primary Care Provider + Encounter Details Date Type Department Care Team (Late st Contact Info) Description 05/25/2021 Orders Only [facility] Medical Group Family & Internal Medicine [place] [address] [place] [address] Sami Liriano DO [address] [place], [place] [phone] Social History Tobacco Use Types Packs/Day Years [...] on file Legal Sex Female 12:43 PM PORTRAIT STUDIO PHOTOGRAPHER Gender Identity Female 12/18/2021 6:31 AM CDT Sexual Orientation Straight 01/15/2022 6: 11 AM CDT 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 Not on file [...] st Contact Info) Description 10/09/2024 9:30 AM PORTRAIT STUDIO PHOTOGRAPHER Office Visit [facility] [phone] Carlos Farris MD [facility] [address] [place] [address] 11/02/2024 10:20 AM PORTRAIT STUDIO PHOTOGRAPHER Office Visit [facility] Medical Group Family & Internal Medicine - [address] [phone] Sami Liriano DO [address] [place] [address] documented as of this encounter Procedures Procedure Name Priority Date/Time Associated Diagnosis Comments CORONAVIRUS (COVID 19) PCR Routine 05/25/2021 8:02 PM CDT Dyspnea on exertion documented in this encounter Results * CORONAVIRUS (COVID 19) PCR ([facility]) (05/25/2021 8:02 PM CDT) SPEC [...] [facility] RESIDENT OF [facility] NO 05/25/2021 8:02 PM CDT [facility] NASOPHARYNGEAL SWAB / Unknown 05/25/2021 8:02 PM CDT Sami Liriano DO MICROBIOLOGY - GENERAL O RDERABLES Final Result Performing Organization Address City/State/[facility] Co de Phone Number [facility] [address] [place] [address], documented in this encounter Visit Diagnoses Diagnosis Dyspnea on exertion Other dyspnea and respiratory abnormality documented in this encounter Additional Health Concerns Infection Onset Date Last Indicated Resolved Time COVID-19 Rule Out 05/25/2021 05/25/2021 05/27/2021 4:08 AM CDT Assessment Noted Time PHQ-9 Depression Total Score: 12 12/15/2 021 8:10 AM CDT documented as of this encounter Care Teams Electrical Assembly Technician Relationship Specialty Start Date End Date Sami Liriano DO [address] [place] [address] PCP - General FAMILY PRACTICE 12/24/19 documented as of this encounter
--- OUTSIDE RECORDS SUMMARY | 2024-09-19 19:42 | XMS_ITS | Encounter Summary ---
Author Organization [facility] Address [address] [place] [address]. [place], [place] [address] [place] [address] Care Team Providers Care Acid Cleaner Name Role Phone Sami Liriano DO Primary Care Provider + Reason for Visit * Reason Onset Date Comments Follow Up Call 05/19/2021 Encounter Details Date Type Department Care Team (Late st Contact Info) Description 05/19/2021 Telephone [facility] Medical Group Family & Internal Medicine [facility] [address] [place] [address] Sami Liriano DO [facility]1 [place], [place] [phone] Follow Up Call Social History Tobacco Use [...] on file Legal Sex Female 12:43 PM REPAIRER GENERAL Gender Identity Female 12/18/2021 6:31 AM CDT Sexual Orientation Straight 01/15/2022 6: 11 AM CDT 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 Not on file Not [...] st Contact Info) Description 10/09/2024 9:30 AM REPAIRER GENERAL Office Visit [facility]-[address] [phone] Carlos Farris MD [address] [facility] [address] [place] [address] 11/02/2024 10:20 AM REPAIRER GENERAL Office Visit [facility] Medical Group Family & Internal Medicine - [address] [phone] Sami Liriano DO [address] [place] [address] documented as of this encounter Visit Diagnoses Not on filedocumented in this encounter Additional Health Concerns Assessment Noted Time PHQ-9 Depression Total Score: 12 2 021 8:10 AM CDT documented as of this encounter Care Teams Acid Cleaner Relationship Specialty Start Date End Date Sami Liriano DO [address] [place] [address] PCP - General FAMILY PRACTICE 12/24/19 documented as of this encounter
--- OUTSIDE RECORDS SUMMARY | 2024-09-19 19:43 | XMS_ITS | Encounter Summary ---
Author Organization [facility] Address [facility] [place], [place] [address] [place] [address] Care Team Providers Care Clinical Laboratory Aide Name Role Phone Sami Liriano Primary Care [...] on file Legal Sex Female 12:43 PM CREDIT REVIEW ANALYST Gender Identity Female 12/18/2021 6:31 AM [...] st Contact Info) Description 10/09/2024 9:30 AM CREDIT REVIEW ANALYST Office Visit [facility]-[address] [address] Carlos Farris MD Three [facility] [address] [place] [address] 11/02/2024 10:20 AM CREDIT REVIEW ANALYST Office Visit [facility] Medical Group Family & Internal Medicine - [address] [phone] Sami Liriano DO [address] [place] [address] documented as of this encounter Visit Diagnoses Not on filedocumented in this encounter Additional Health Concerns Assessment Noted Time PHQ-9 Depression Total Score: 16 021 10:04 AM CREDIT REVIEW ANALYST documented as of this encounter Care Teams Clinical Laboratory Aide Relationship Specialty Start Date End Date Sami Liriano DO [address] [place] [address] PCP - General FAMILY PRACTICE 12/24/19 documented as of this encounter
--- OUTSIDE RECORDS SUMMARY | 2024-09-19 19:43 | XMS_ITS | Encounter Summary ---
Author Organization [facility] Address [facility] [place], [place] [address] [place] [address] Care Team Providers Care Honing Machine Operator Tool Name Role Phone Sami Liriano Primary Care Provider + Reason for Visit * Reason Comments Mammogram (SCAN) Bone Density Report (SCAN) Encounter Details Date Type Department Care Team ([facility] Contact Info) Description 02/28/2021 Scan HEALTH INFO [...] on file Legal Sex Female 12:43 PM BLACK OXIDE COATING EQUIPMENT TENDER Gender Identity Female 12/18/2021 6:31 AM [...] st Contact Info) Description 10/09/2024 9:30 AM BLACK OXIDE COATING EQUIPMENT TENDER Office Visit [facility]-[address] [phone] Carlos Farris MD [address] [facility] [address] [place] [address] 11/02/2024 10:20 AM BLACK OXIDE COATING EQUIPMENT TENDER Office Visit [facility] Medical Group Family & Internal Medicine - [address] [phone] Sami Liriano DO [address] [place] [address] documented as of this encounter Procedures Procedure [...] documented as of this encounter Care Teams Honing Machine Operator Tool Relationship Specialty Start Date End Date Sami Liriano DO [address] [place] [address] [phone] PCP - General FAMILY PRACTICE 12/24/19 documented as of this encounter
--- OUTSIDE RECORDS SUMMARY | 2024-09-19 19:43 | XMS_ITS | Encounter Summary ---
Author Organization [facility] Address Critical access hospital6 [facility]. [place], [place] [address] [place] [address] Care Team Providers Care Demand Planning Analyst Name Role Phone Sami Liriano Primary [...] on file Legal Sex Female 12:43 PM STOCKROOM HELPER Gender Identity Female 12/18/2021 6:31 AM [...] COVID-19? No / Unsure 12/07/2020 9:46 AM STOCKROOM HELPER documented as of this encounter Plan of Treatment Upcoming Encounters Date Type Department Care Team (Late st Contact Info) Description 10/09/2024 9:30 AM STOCKROOM HELPER Office Visit [facility]-[address] [phone] Carlos Farris MD [facility] [address] [place] [address] 11/02/2024 10:20 AM STOCKROOM HELPER Office Visit [facility] Medical Group Family & Internal Medicine - [address] [address] Sami Liriano DO [address] [place] [address] documented as of this encounter Visit Diagnoses Not on filedocumented in this encounter Additional Health Concerns Assessment Noted Time PHQ-9 Depression Total Score: 16 021 10:04 AM STOCKROOM HELPER documented as of this encounter Care Teams Demand Planning Analyst Relationship Specialty Start Date End Date Sami Liriano DO [address] [place] [address] PCP - General FAMILY PRACTICE 12/24/19 documented as of this encounter
--- OUTSIDE RECORDS SUMMARY | 2024-09-19 19:43 | XMS_ITS | Encounter Summary ---
Author Organization [facility] Address [facility] [place], [place] [address] [place] [address] Care Team Providers Care Asbestos Brake Lining Finisher Name Role Phone Sami Liriano Primary [...] file Legal Sex Female 12:43 PM CLIENT RELATIONSHIP CONSULTANT Gender Identity Female 12/18/2021 6:31 AM [...] Contact Info) Description 10/09/2024 9:30 AM CLIENT RELATIONSHIP CONSULTANT Office Visit [facility]-[address] [address] Carlos Farris MD [address] [facility] [address] [place] [address] 11/02/2024 10:20 AM CLIENT RELATIONSHIP CONSULTANT Office Visit [facility] Medical Group Family & Internal Medicine - [address] [phone] Sami Liriano DO [address] [place] [address] documented as of this encounter Visit Diagnoses Not on filedocumented in this encounter Additional Health Concerns Assessment Noted Time PHQ-9 Depression Total Score: 12 12/15/2 021 8:10 AM CDT documented as of this encounter Care Teams Asbestos Brake Lining Finisher Relationship Specialty Start Date End Date Sami Liriano DO [address] [place] [address] PCP - General FAMILY PRACTICE 12/24/19 documented as of this encounter
--- OUTSIDE RECORDS SUMMARY | 2024-09-19 19:43 | XMS_ITS | Encounter Summary ---
Author Organization [facility] Address [address] [place] [address]. [place], [place] [address] [place] [address] Care Team Providers Care Branch Lending Officer Name Role Phone Sami Liriano DO Primary Care Provider + Reason for Visit * Reason Onset Date Comments Results 01/02/2021 Encounter Details Date Type Department Care Team (Late st Contact Info) Description 01/02/2021 Telephone [facility] Medical Group Family & Internal Medicine [place] [address] [place] [address] Sami Liriano DO [facility] [place] [address] Results Social History Tobacco Use [...] on file Legal Sex Female 12:43 PM DITCHER OPERATOR Gender Identity Female 12/18/2021 6:31 AM [...] st Contact Info) Description 10/09/2024 9:30 AM DITCHER OPERATOR Office Visit [facility]-[address] [phone] Carlos Farris MD Three [facility] [address] [place] [address] 11/02/2024 10:20 AM DITCHER OPERATOR Office Visit [facility] Medical Group Family & Internal Medicine - [address] [phone] Saim Liriano DO [address] [place] [address] documented as of this encounter Visit Diagnoses Not on filedocumented in this encounter Additional Health Concerns Assessment Noted Time PHQ-9 Depression Total Score: 12 12/15/ 021 8:10 AM CDT documented as of this encounter Care Teams Branch Lending Officer Relationship Specialty Start Date End Date Sami Liriano DO [address] [place] [address] PCP - General FAMILY PRACTICE 12/24/19 documented as of this encounter
--- OUTSIDE RECORDS SUMMARY | 2024-09-19 19:43 | XMS_ITS | Encounter Summary ---
Author Organization [facility] Address [address] [place] [address]. [place], [place] [address] [place] [address] Care Team Providers Care Space Control Agent Name Role Phone Sami Liriano Primary [...] on file Legal Sex Female 12:43 PM ACCESS RN Gender Identity Female 12/18/2021 6:31 AM CDT [...] st Contact Info) Description 10/09/2024 9:30 AM ACCESS RN Office Visit [facility]-[address] [phone] Carlos Farris MD [address] [facility] [address] [place] [address] 11/02/2024 10:20 AM ACCESS RN Office Visit [facility] Medical Group Family & Internal Medicine - [address] [phone] Sami Liriano DO [address] [place] [address] documented as of this encounter Visit Diagnoses Not on filedocumented in this encounter Additional Health Concerns Assessment Noted Time PHQ-9 Depression Total Score: 12 12/15/ 021 8:10 AM CDT documented as of this encounter Care Teams Space Control Agent Relationship Specialty Start Date End Date Sami Liriano DO [address] [place] [address] PCP - General FAMILY PRACTICE 12/24/19 documented as of this encounter
--- OUTSIDE RECORDS SUMMARY | 2024-09-19 19:43 | XMS_ITS | Encounter Summary ---
Author Organization [facility] Address [facility]. [place], [place] [address] [place] [address] Care Team Providers Care Quality Systems Manager Name Role Phone Sami Liriano DO Primary Care Provider + Reason for Referral * Consultation (Routine) - Closed Specialty Diagnoses / Procedures Referred By Shereen t Referred To Contact RHEUMATOLOGY Diagnoses Positive ALLYSON (antinuclear antibody) Sami Liriano DO [address] [place] [address] Phone: tel: fax: [place] [address] [place] [address] Phone: tel: fax: Referral ID Status Reason Start Date Expiration Date V isits Requested Visits Authorized [id number] Closed Specialty Services 12/26/2020 01/25/2022 100 100 Reason for Visit * Reason Onset Date Comments Lab Results 12/26/2020 Encounter Details Date Type Department Care Team (Late st Contact Info) Description 12/26/2020 Telephone [facility] Medical Group Family & Internal Medicine [facility] [address] [place] [address] Sami Liriano DO [address] [place], [place] [phone] Lab Results Social History Tobacco Use Types [...] on file Legal Sex Female 12:43 PM CARD GAME OPERATOR Gender Identity Female 12/18/2021 6:31 AM [...] All other information was relayed by Dr Lriiano. * Melanie Lance MA - 12/26/2020 10:45 [...] st Contact Info) Description 10/09/2024 9:30 AM CARD GAME OPERATOR Office Visit [facility]-[address] [phone] Carlos Farris MD [facility] [address] [place] [address] 11/02/2024 10:20 AM CARD GAME OPERATOR Office Visit [facility] Medical Group Family & Internal Medicine - [address] [phone] Sami Liriano DO [address] [place] [address] Scheduled Referrals Name Type Priority Associated Diagnoses [...] as of this encounter Care Teams Quality Systems Manager Relationship Specialty Start Date End Date Sami Liriano DO [address] [place] [address] PCP - General FAMILY PRACTICE 12/24/19 documented as of this encounter
--- OUTSIDE RECORDS SUMMARY | 2024-09-19 19:43 | XMS_ITS | Encounter Summary ---
Author Organization [facility] Address [facility]. [place], [place] [address] [place] [address] Care Team Providers Care Supervisor Intelligence Analyst Name Role Phone Sami Liriano DO Primary Care Provider + Reason for Referral * Consultation (Routine) - Closed Specialty Diagnoses / Procedures Referred By Shereen benton Referred To Contact NEUROLOGY Diagnoses Tremors of nervous system Sami Liriano DO [address] [place] [address] Phone: tel: fax: Roberto Prabhakar MD [address] [place] [address] Phone: tel: fax: Referral ID Status Reason Start Date Expiration Date V isits Requested Visits Authorized [id number] Closed Specialty Services 12/15/2020 01/15/2022 99 99 * Imaging (Routine) - Closed Specialty Diagnoses / Procedures Referred By Shereen benton Referred To Contact RADIOLOGY Diagnoses Resistant hypertension Procedures USV ABD PEL OR RETRO DUPLEX COMP Sami Liriano DO [address] [place] [address] Phone: tel: fax: Referral ID Status Reason Start Date Expiration Date Visits Re quested Visits Authorized [id number] Closed 12/15/2020 01/15/2022 1 1 Reason for Visit * Reason Comments Blood Pressure running high Encounter Details Date Type Department Care Team (Late st Contact Info) Description 12/15/2020 8:00 AM CDT Office Visit [facility] Medical Group Family & Internal Medicine [facility] [address] [place] [address] Sami Liriano DO [address] [place] [address] Blood Pressure (running high) Social History Tobacco [...] file Legal Sex Female 12:43 PM SUPERVISOR CONDITIONING YARD Gender Identity Female 12/18/2021 6:31 AM CDT [...] 3 performed by Joel Keenan MD at [facility] OR ??? EGD ??? HERNIA REPAIR [...] Not on file Occupational History ??? 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 Financial resource strain: Not [...] file Gets together: Not on file Attends yazidi service: Not on file Active member of [...] Contact Info) Description 10/09/2024 9:30 AM SUPERVISOR CONDITIONING YARD Office Visit [facility] [address] Carlos Farris MD [facility] [address] [place] [address] 11/02/2024 10:20 AM SUPERVISOR CONDITIONING YARD Office Visit [facility] Medical Group Family & Internal Medicine - [address] [address] Sami Liriano P, DO [address] [place] [address] Scheduled Referrals Name Type Priority Associated Diagnoses [...] ? VASCULAR LAB Pat.Name: ??HAIR SARGENT ?Pat.ID: ?[id number] ? St.Date: ?? 12/30/2020 ?Exam Time: 6:53:00 [...] IMAGING VASCULAR LAB Pat.Name: HAIR SARGENT Pat.ID: [id number] .Date: 12/30/2020 Exam Time: 6:53:00 AM Study [...] Final Re sult Performing Organization Address City/[facility] Co de Phone Number [employer] [facility]ST[facility] - PIOTR ORDERS [facility] [address] [place] [address] * RHEUMATOID FACTOR, QUANT (12/15/2020 9:11 AM CDT) Pathologist [facility] RHEUMATOID FACTOR <14 <14 IU/mL Health: [facility] 12/15/2020 9:11 AM CDT 12/15/2020 9:12 AM CDT Samidania Liriano DO LABORATORY Final Re sult Performing Organization Address [facility] Co de Phone Number [employer] [facility]ST[facility] - PIOTR ORDERS [facility] [address] [place] [address] * (ABNORMAL) ALLYSON IFA SCREEN WI RFX TO TITER/CASCADE ([facility] ONLY) (12/15/2020 9:11 AM CDT) ALLYSON POSITIVE(A) NEGATIVE Health: [facility] Comment: ALLYSON IFA is a first line screen for detecting the presence of up to approximately 150 autoantibodies in various autoimmune diseases. A positive ALLYSON IFA result is suggestive of autoimmune disease and reflexes to titer, pattern and the 3 tiered Multiplex 11 Antibody [place]. Testing in the [place] stops at the first positive result, and does not preclude additional positive results. Further laboratory testing may be considered if clinically indicated. For additional information, please refer to http://education.[employer]/faq/JFO729 (This link is being provided for informational/ educational purposes only.) ?? ALLYSON TITER 1:80(H) titer [facility] Comment: A low level ALLYSON titer may be present in pre-clinical autoimmune diseases and normal individuals. ?Reference Range ?<1:40 ?Negative ?1:40-1:80 ?Low Antibody Level ?>1:80 ?Elevated Antibody Level ALLYSON PATTERN Nuclear, Speckled(A) Health: [facility] Comment: Speckled pattern is associated with mixed connective tissue disease (MCTD), systemic lupus erythematosus (SLE), Sjogren's syndrome, dermatomyositis, and systemic sclerosis/polymyositis overlap. AC-2,4,5,29: Speckled International Consensus on ALLYSON Patterns (https://doi.org/10.1515/dmau-0039-6832) ALLYSON TITER 1:320(H) titer [facility] Comment: ?Reference Range ?<1:40 ?Negative ?1:40-1:80 ?Low Antibody Level ?>1:80 ?Elevated Antibody Level ALLYSON PATTERN Nuclear, Discrete Nuclear Dots(A) [facility] Comment: Nuclear dots (6-20 in number per cell) pattern is seen in primary biliary cholangitis (PBC), polymyositis/dermatomyositis, and other systemic autoimmune rheumatic diseases. AC-6,7: Discrete Nuclear Dots International Consensus on ALLYSON Patterns (https://doi.org/10.1515/pglu-7914-6358) DNA (DS) ANTIBODY 1 IU/mL [facility] Comment: ? IU/mL ? Interpretation ? < or = 4 ?Negative ? 5-9 ? Indeterminate ? > or = 10 ?? Positive SM ANTIBODY <1.0 NEG <1.0 NEG AI [facility] SM/SEMI TRUCK DRIVER AB S/P/B <1.0 NEG <1.0 NEG [facility] SEMI TRUCK DRIVER (U1) AB S/P/B <1.0 NEG <1.0 NEG AI [facility] CHROMATIN (NUCLEOSOMAL)AB <1.0 NEG <1.0 NEG AI [facility] SSA ANTIBODY <1.0 NEG <1.0 NEG AI [facility] SSB ANTIBODY <1.0 NEG <1.0 NEG AI [facility] SCL 70 S/P/B <1.0 NEG <1.0 NEG AI [facility] ROSLYN-1 ANTIBODY <1.0 NEG <1.0 NEG [facility] CENTROMERE B AB S/P/B <1.0 NEG <1.0 NEG AI [facility] RIBOSOMAL P ANTIBODY <1.0 NEG <1.0 NEG AI [facility] Comment: The [place] does not rule out autoimmune disease characterized by other autoantibody specificities such as rheumatoid arthritis, autoimmune hepatitis, primary biliary cirrhosis, autoimmune thyroiditis, Chisago's disease, pernicious anemia, autoimmune neuropathies, vasculitis, celiac disease and bullous disease. Please contact your local [facility] laboratory if you are interested in additional testing. INTERPRETATION [facility] Comment: All three negative tiers indicate the absence of detectable antibodies to component analytes consisting of double stranded DNA (dsDNA), chromatin, ribonucleoprotein (SEMI TRUCK DRIVER), Mcginnis/SEMI TRUCK DRIVER (Sm/SEMI TRUCK DRIVER), Mcginnis (Sm), SS-A, SS-B, Roslyn-1, Scl-70, centromere B and ribosomal P. A negative result should be interpreted in the context of the clinical and laboratory findings. 12/15/2020 9:11 AM CDT 12/15/2020 9:12 AM CDT Sami Liriano DO LABORATORY Final Re sult [facility] [address] [facility] [place] [address] * (ABNORMAL) COMPREHENSIVE METABOLIC PANEL (12/15/2020 9:11 AM CDT) Pathologist [facility] GLUCOSE 125(H) 65 - 99 mg/dL [facility] [...] approximately 13% higher for people identified as -Bahraini. EGFR NON-AFR. AMER. 39(L) > OR = [...] sult [facility] [address] [place] [address] documented in this encounter Visit Diagnoses Diagnosis [...] as of this encounter Care Teams Supervisor Intelligence Analyst Relationship Specialty Start Date End Date Sami Liriano DO [address] [place] [address] PCP - General FAMILY PRACTICE 12/24/19 documented as of this encounter
--- OUTSIDE RECORDS SUMMARY | 2024-09-19 19:43 | XMS_ITS | Encounter Summary ---
Author Organization [facility] Address [address] [place] [address]. [place], [place] [address] [place] [address] Care Team Providers Care Recharger Name Role Phone Sami Liriano DO Primary Care Provider + Reason for Referral * Consultation (Routine) - Closed Specialty Diagnoses / Procedures Referred By Shereen t Referred To Contact NEUROLOGY Diagnoses Acute nonintractable headache, unspecified headache type Numbness and tingling of both upper extremities Numbness and tingling of both lower extremities Sami Liriano DO [address] [place] [address] Phone: tel: fax: Jonathon Gauthier MD Phone: tel: fax: Referral ID Status Reason Start Date Expiration Date V isits Requested Visits Authorized [id number] Closed Specialty Services 02/08/2021 03/11/2022 99 99 Reason for Visit * Reason Onset Date Comments Problem 02/08/2021 Encounter Details Date Type Department Care Team (Late st Contact Info) Description 02/08/2021 Telephone [facility] Medical Group Family & Internal Medicine [facility] [address] [place] [address] Sami Liriano DO [address] [place] [address] Problem Social History Tobacco Use Types Packs/Day [...] 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 Can see either Dr. Gauthier, or could see one of our neurologists who are in [place]. * Poppy Alas - 02/08/2021 10:30 AM CDT Patient needs a new neurologist because dr. correa won't be taking new patients. documented in this encounter Plan of Treatment Upcoming Encounters Date Type Department Care Team (Late st Contact Info) Description 10/09/2024 9:30 AM CORE PILER Office Visit [facility] [address] [place] [address] Carlos Farris MD Three [facility] [address] [place] [address] 11/02/2024 10:20 AM CORE PILER Office Visit [facility] Medical Group Family & Internal Medicine - [address] [address] [place] [address] [place] [address] Scheduled Referrals Name Type Priority Associated Diagnoses [...] documented as of this encounter Care Teams Recharger Relationship Specialty Start Date End Date Sami Liriano DO [address] [place] [address] PCP - General FAMILY PRACTICE 12/24/19 documented as of this encounter
--- OUTSIDE RECORDS SUMMARY | 2024-09-19 19:43 | XMS_ITS | Encounter Summary ---
Author Organization [facility] Address [address] [place] [address]. [place], [place] [address] [place] [address] Care Team Providers Care Steeping Press Operator Name Role Phone Sami Liriano DO Primary Care Provider + Reason for Referral * Imaging (Routine) - Closed Specialty Diagnoses / Procedures Referred By Shereen benton Referred To Contact RADIOLOGY Diagnoses Resistant hypertension Procedures USV ABD PEL OR RETRO DUPLEX COMP Sami Liriano DO [address] [place] [address] Phone: tel: fax: Referral ID Status Reason Start Date Expiration Date Visits Re quested Visits Authorized [id number] Closed 12/15/2020 01/15/2022 1 1 Reason for Visit * Imaging (Routine) - Closed Specialty Diagnoses / Procedures Referred By Shereen benton Referred To Contact RADIOLOGY Diagnoses Resistant hypertension Procedures USV ABD PEL OR RETRO DUPLEX COMP Sami Liriano DO [address] [place] [address] Phone: tel: fax: Referral ID Status Reason Start Date Expiration Date Visits Re quested Visits Authorized [id number] Closed 12/15/2020 01/15/2022 1 1 Encounter Details Date Type Department Care Team (Latest Contact Info) Description 12/30/2020 6:38 AM CDT - 12/30/2020 11:59 PM CDT Hospital Encounter [facility] [address] [place] [address] Sami Liriano, [address] [place] [address] Discharge Disposition: Home or Self Care (Routine [...] on file Legal Sex Female 12:43 PM CHIEF EXECUTIVE OFFICER Gender Identity Female 12/18/2021 6:31 AM [...] st Contact Info) Description 10/09/2024 9:30 AM CHIEF EXECUTIVE OFFICER Office Visit [facility] [address] Carlos Farris MD [facility] [address] [place] [address] 11/02/2024 10:20 AM CHIEF EXECUTIVE OFFICER Office Visit [facility] Medical Group Family & Internal Medicine [facility] [address] [place] [address] Heri Sami Rivera, [address] [place] [address] documented as of this encounter Procedures Procedure [...] ? VASCULAR LAB Pat.Name: ??JOLLY SARGENT ?Pat.ID: ?[id number] ? St.Date: ?? 12/30/2020 ?Exam Time: 6:53:00 [...] IMAGING VASCULAR LAB Pat.Name: JOLLY SARGENT Pat.ID: [id number] .Date: 12/30/2020 Exam Time: 6:53:00 AM Study [...] documented as of this encounter Care Teams Steeping Press Operator Relationship Specialty Start Date End Date Sami Liriano DO [address] [place] [address] PCP - General FAMILY PRACTICE 12/24/19 documented as of this encounter
--- OUTSIDE RECORDS SUMMARY | 2024-09-19 19:43 | XMS_ITS | Encounter Summary ---
Author Organization [facility] Address [address] [place] [address]. [place], [place] [address] [place] [address] Care Team Providers Care Spoilage Worker Name Role Phone Sami Liriano DO Primary Care Provider + Reason for Visit * Reason Onset Date Comments Lab Order 12/20/2020 Encounter Details Date Type Department Care Team (Late st Contact Info) Description 12/20/2020 Telephone [facility] Medical Group Family & Internal Medicine [facility] [address] [place] [address] Sami Liriano DO [facility] [place] [address] Lab Order Social History Tobacco [...] on file Legal Sex Female 12:43 PM POLICE LIEUTENANT PATROL Gender Identity Female 12/18/2021 6:31 AM CDT [...] as of this encounter Progress Notes * Mealnie Lance MA - 12/22/2020 2:01 PM CDT Spoke with Renetta at [facility] and added on a1c. tn * Sami Liriano DO - 12/20/2020 3:43 PM CDT Can we add on an A1c? [facility] documented in this encounter Plan of Treatment Upcoming Encounters Date Type Department Care Team (Late st Contact Info) Description 10/09/2024 9:30 AM POLICE LIEUTENANT PATROL Office Visit [facility] [address] Carlos Farris MD [address] [facility] [address] [place] [address] 11/02/2024 10:20 AM POLICE LIEUTENANT PATROL Office Visit [facility] Medical Group Family & Internal Medicine - [address] [address] Sami Liriano DO [address] [place] [address] Scheduled Orders Name Type Priority Associated Diagnoses Orde r Schedule HEMOGLOBIN, GLYCOSYLATED Lab Routine Hyperglycemia Expected: 12/22/2020, Expires: 12/20/2021 documented as of this encounter Visit Diagnoses Diagnosis Hyperglycemia- Primary Other abnormal glucose documented in this encounter Additional Health Concerns Assessment Noted Time PHQ-9 Depression Total Score: 12 12/15/ 021 8:10 AM CDT documented as of this encounter Care Teams Spoilage Worker Relationship Specialty Start Date End Date Sami Liriano DO [address] [place] [address] PCP - General FAMILY PRACTICE 12/24/19 documented as of this encounter
--- OUTSIDE RECORDS SUMMARY | 2024-09-19 19:43 | XMS_ITS | Encounter Summary ---
Author Organization [facility] Address [facility]. [place], [place] [address] [place] [address] Care Team Providers Care Operating Manager Name Role Phone Sami Liriano Primary Care Provider + Reason for Visit * Reason Comments Allied Health Visit bp check Encounter Details Date Type Department Care Team (Latest Contact Info) Description 12/12/2020 9:00 AM CDT Allied Health/Nurse Visit [facility] Medical Group Family & Internal Medicine [address] [address] Allied Health Visit (bp check) [...] on file Legal Sex Female 12:43 PM BANK NOTE DESIGNER Gender Identity Female 12/18/2021 6:31 AM CDT Sexual Orientation Straight 01/15/2022 6: 11 AM CDT 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 Not [...] st Contact Info) Description 10/09/2024 9:30 AM BANK NOTE DESIGNER Office Visit [facility] [phone] Carlos Farris MD Three [facility] [address] [place] [address] 11/02/2024 10:20 AM BANK NOTE DESIGNER Office Visit [facility] Medical Group Family & Internal Medicine - [address] [address] Sami Liriano DO [address] [place] [address] documented as of this encounter Visit Diagnoses Diagnosis Essential hypertension- Primary Unspecified essential hypertension documented in this encounter Additional Health Concerns Assessment Noted Time PHQ-9 Depression Total Score: 16 021 10:04 AM BANK NOTE DESIGNER documented as of this encounter Care Teams Operating Manager Relationship Specialty Start Date End Date Sami Liriano DO [address] [place] [address] PCP - General FAMILY PRACTICE 12/24/19 documented as of this encounter
--- OUTSIDE RECORDS SUMMARY | 2024-09-19 19:43 | XMS_ITS | Encounter Summary ---
Author Organization [facility] Address [address] [place] [address]. [place], [place] [address] [place] [address] Care Team Providers Care Lathe Machine Operator Name Role Phone Sami Liriano DO Primary Care Provider + Reason for Visit * Reason Onset Date Comments Follow Up Call 02/21/2021 Encounter Details Date Type Department Care Team (Late st Contact Info) Description 02/21/2021 Telephone [facility] Medical [facility] Family & Internal Medicine [facility] [address] [place] [address] Sami Liriano DO [facility] [address] [place] [address] Follow Up Call Social History [...] on file Legal Sex Female 12:43 PM PLANT SECURITY GUARD Gender Identity Female 12/18/2021 6:31 AM CDT Sexual Orientation Straight 01/15/2022 6: 11 AM CDT 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 documented in this encounter Plan of Treatment Upcoming Encounters Date Type Department Care Team (Late st Contact Info) Description 10/09/2024 9:30 AM PLANT SECURITY GUARD Office Visit [facility] [address] Carlos Farris MD [facility] [address] [place] [address] 11/02/2024 10:20 AM PLANT SECURITY GUARD Office Visit [facility] Medical Group Family & Internal Medicine - [address] [address] Sami Liriano DO [address] [place] [address] documented as of this encounter Visit Diagnoses Not on filedocumented in this encounter Additional Health Concerns Assessment Noted Time PHQ-9 Depression Total Score: 12 12/15/ 021 8:10 AM CDT documented as of this encounter Care Teams Lathe Machine Operator Relationship Specialty Start Date End Date Sami Liriano DO [address] [place] [address] PCP - General FAMILY PRACTICE 12/24/19 documented as of this encounter
--- OUTSIDE RECORDS SUMMARY | 2024-09-19 19:43 | XMS_ITS | Encounter Summary ---
Author Organization [facility] Address [address] [place] [address]. [place], [place] [address] [place] [address] Care Team Providers Care Core Laying Machine Operator Name Role Phone Sami Gimenez DO Primary Care Provider + Reason for Visit * Reason Comments Pneumonia follow up diagnosed at [place] [facility] on 02/20/21 Encounter Details Date Type Department Care Team (Late st Contact Info) Description 03/01/2021 8:00 AM CDT Office Visit [facility] Medical Group Family & Internal Medicine [address] [address] Sami Gimenez DO [address] [place] [phone] Pneumonia (follow up diagnosed at [place] [facility] on 02/20/21) Social History Tobacco [...] on file Legal Sex Female 12:43 PM HOUSING LIAISON Gender Identity Female 12/18/2021 6:31 AM [...] presents for Pneumonia (follow up diagnosed at [place] [facility] on 02/20/21) HPI: Pt presents [...] 3 performed by Joel Keenan MD at [facility] OR ??? EGD ??? [...] Not on file Occupational History ??? 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 Smoking status: Former Smoker [...] Gatherings with Friends and Family: ??? Attends Islam Services: ??? Active Member of Clubs or [...] st Contact Info) Description 10/09/2024 9:30 AM HOUSING LIAISON Office Visit [facility] [address] Carlos Farris MD [facility] Suite [facility] [place] [address] 11/02/2024 10:20 AM HOUSING LIAISON Office Visit [facility] Medical Group Family & Internal Medicine - [address] [phone] Sami Gimenez DO [address] [place] [address] documented as of this encounter Results * [...] as of this encounter Care Teams Core Laying Machine Operator Relationship Specialty Start Date End Date Sami Gimenez DO [address] [place] [address] PCP - General FAMILY PRACTICE 12/24/19 documented as of this encounter
--- OUTSIDE RECORDS SUMMARY | 2024-09-19 19:43 | XMS_ITS | Encounter Summary ---
Author Organization [facility] Address [facility]. [place], [place] [address] [place] [address] Care Team Providers Care Medical Van Driver Name Role Phone Sami Liriano Primary [...] file Legal Sex Female 12:43 PM MARINE SCIENTIST Gender Identity Female 12/18/2021 6:31 AM CDT [...] Contact Info) Description 10/09/2024 9:30 AM MARINE SCIENTIST Office Visit [facility] [address] Carlos Farris MD Three [facility] [address] [place] [address] 11/02/2024 10:20 AM MARINE SCIENTIST Office Visit [facility] Medical Group Family & Internal Medicine - [address] [phone] Sami Liriano DO [address] [place] [address] documented as of this encounter Visit Diagnoses Not on filedocumented in this encounter Additional Health Concerns Assessment Noted Time PHQ-9 Depression Total Score: 12 12/15/2 021 8:10 AM CDT documented as of this encounter Care Teams Medical Van Driver Relationship Specialty Start Date End Date Sami Liriano DO [address] [place] [address] PCP - General FAMILY PRACTICE 12/24/19 documented as of this encounter
--- OUTSIDE RECORDS SUMMARY | 2024-09-19 19:44 | XMS_ITS | Encounter Summary ---
Author Organization [facility] Address [facility]. [place], [place] [address] [place] [address] Care Team Providers Care Supervisor Filtration Name Role Phone Sami Liriano Primary Care Provider + Encounter Details Date Type Department Care Team (Late st Contact Info) Description 09/06/2020 Orders Only [facility] [place] [address] Non-Staff, Provider Social History Tobacco Use Types [...] file Legal Sex Female 12:43 PM PAPER PROCESSING MACHINE HELPER Gender Identity Female 12/18/2021 6:31 AM [...] COVID-19? No / Unsure 09/05/2020 12:43 PM PAPER PROCESSING MACHINE HELPER documented as of this encounter Plan of Treatment Upcoming Encounters Date Type Department Care Team (Late st Contact Info) Description 10/09/2024 9:30 AM PAPER PROCESSING MACHINE HELPER Office Visit [facility] [phone] Carlos Farris MD Three [facility] [address] [place] [address] 11/02/2024 10:20 AM PAPER PROCESSING MACHINE HELPER Office Visit [facility] Family & Internal Medicine - [address] [phone] Sami Liriano DO [address] [place] [address] documented as of this encounter Visit Diagnoses Not on filedocumented in this encounter Additional Health Concerns Assessment Noted Time PHQ-9 Depression Total Score: 0 10/29/19 11:04 AM PAPER PROCESSING MACHINE HELPER documented as of this encounter Care Teams Supervisor Filtration Relationship Specialty Start Date End Date Sami Liriano DO [address] [place] [address] PCP - General FAMILY PRACTICE 12/24/19 documented as of this encounter
--- OUTSIDE RECORDS SUMMARY | 2024-09-19 19:44 | XMS_ITS | Encounter Summary ---
Author Organization [facility] Address [address] [place] [address]. [place], [place] [address] [place] [address] Care Team Providers Care Oiling Machine Operator Name Role Phone Sami Liriano DO Primary Care Provider + Reason for Visit * Reason Onset Date Comments Medication 10/27/2020 Encounter Details Date Type Department Care Team (Late st Contact Info) Description 10/27/2020 Telephone [facility] Family & Internal Medicine [address] [place] [address] Sami Liriano DO [facility] [place] [address] Medication Social History Tobacco Use [...] on file Legal Sex Female 12:43 PM OCEAN FISHING GUIDE Gender Identity Female 12/18/2021 6:31 AM CDT [...] blood pressure log. Rx sent to pharmacy N FISHING GUIDE documented in this encounter Plan of Treatment Upcoming Encounters Date Type Department Care Team (Late st Contact Info) Description 10/09/2024 9:30 AM OCEAN FISHING GUIDE Office Visit [facility] [phone] Carlos Farris MD [facility] [address] [place] [address] 11/02/2024 10:20 AM OCEAN FISHING GUIDE Office Visit [facility] Family & Internal Medicine - [address] [phone] Sami Liriano DO [address] [place] [address] documented as of this encounter Visit Diagnoses Diagnosis Essential hypertension- Primary Unspecified essential hypertension documented in this encounter Additional Health Concerns Assessment Noted Time PHQ-9 Depression Total Score: 0 10/29/19 11:04 AM OCEAN FISHING GUIDE documented as of this encounter Care Teams Oiling Machine Operator Relationship Specialty Start Date End Date Sami Liriano DO [address] [place] [address] PCP - General FAMILY PRACTICE 12/24/19 documented as of this encounter
--- OUTSIDE RECORDS SUMMARY | 2024-09-19 19:44 | XMS_ITS | Encounter Summary ---
Author Organization [facility] Address [facility]. [place], [place] [address] [place] [address] Care Team Providers Care Extractions Technician Name Role Phone Sami Liriano DO Primary Care Provider + Encounter Details Date Type Department Care Team (Latest Contact Info) Description 09/05/2020 6:15 PM [place] - 09/05/2020 11:59 PM [place] Hospital Encounter [facility] [place] [address] Sami Liriano DO [address] [place] [address] [phone] Discharge Disposition: Home or Self Care (Routine [...] on file Legal Sex Female 12:43 PM [place] Gender Identity Female 12/18/2021 6:31 AM CDT [...] COVID-19? No / Unsure 09/05/2020 12:43 PM [place] documented as of this encounter Medications at [...] f/u in 1-2 months from last OV. [place] documented in this encounter Plan of Treatment Upcoming Encounters Date Type Department Care Team (Late st Contact Info) Description 10/09/2024 9:30 AM PLOWING GARDENS [facility] [phone] Carlos Farris MD Three [facility] [address] [place] [address] 11/02/2024 10:20 AM [place] Office Visit [facility] Family & Internal Medicine - [address] [phone] Sami Liriano DO [address] [place] [address] documented as of this encounter Procedures Procedure Name Priority Date/Time Associated Diagnosis Comments TSH W/REFLEX Routine 09/05/2020 2:00 PM [place] Screening for endocrine, metabolic and immunity disorder Annual physical exam COMPREHENSIVE METABOLIC PANEL Routine 09/05/2020 2:00 PM [place] Essential hypertension LIPID PANEL Routine 09/05/2020 2:00 PM [place] Screening for lipid disorders Annual physical exam VITAMIN D 1,25 DIHYDROXY Routine 09/05/2020 2:00 PM [place] BMI 45.0-49.9, adult ([facility]) documented in this encounter Results * (ABNORMAL) COMPREHENSIVE METABOLIC PANEL (09/05/2020 2:00 PM [place]) GLUCOSE 102(H) 70 - 99 MG/DL 09/05/2020 7:26 PM [place] [facility] BUN 18 7 - 18 MG/DL 09/05/2020 7:26 PM [place] [facility] CREATININE S/P/B 1.02 0.55 - 1.02 MG/DL 09/05/2020 7:26 PM [place] [facility] SODIUM S/P/B 139 136 - 145 MMOL/L 09/05/2020 7:26 PM [facility] POTASSIUM S/P/B 3.9 3.5 - 5.1 MMOL/L 09/05/2020 7:26 PM [facility] CHLORIDE S/P/B 105 100 - 108 MMOL/L 09/05/2020 7:26 PM [facility] CO2 27.2 21 - 32 MMOL/L 09/05/2020 7:26 PM [facility] CALCIUM S/P/B 9.4 8.5 - 10.1 MG/DL 09/05/2020 7:26 PM [facility] BILIRUBIN TOTAL S/P/B 1.2 0.2 - 1.2 MG/DL 09/05/2020 7:26 PM [facility] Comment: THIS ASSAY IS NOT RECOMMENDED FOR PATIENTS UNDERGOING TREATMENT WITH ELTROMBOPAG DUE TO THE POTENTIAL FOR FALSELY ELEVATED RESULTS. TOTAL PROTEIN S/P/B 7.9 6.4 - 8.2 G/DL 09/05/2020 7:26 PM [facility] ALBUMIN S/P/B 4.2 3.4 - 5.0 G/DL 09/05/2020 7:26 PM [facility] AST 15 15 - 37 U/L 09/05/2020 7:26 PM [facility] ALT 26 14 - 55 U/L 09/05/2020 7:26 PM [facility] ALKALINE PHOSPHATASE S/P/B 110 50 - 136 U/L 09/05/2020 7:26 PM [facility] ANION GAP 6.8 5 - 15 MMOL/L 09/05/2020 7:26 PM [facility] BUN CREATININE RATIO 17.6 6 - 26 09/05/2020 7:26 PM [facility] A/G RATIO 1.1 1.0 - 2.0 RATIO 09/05/2020 7:26 PM [place] [facility] EGFR NON-AFR. AMER. 57(L) >90 ML/MIN/1.7 3 M2 09/05/2020 7:26 PM [place] [facility] EGFR AFR. AMER. 66(L) >90 ML/MIN/1.7 3 M2 09/05/2020 7:26 PM [place] [facility] Comment: NOTE: eGFR is not calculated for patients <18 years of age. This is an estimated GFR (CKD EPI) and should not be used for calculating drug doses. 09/05/2020 2:00 PM [place] Sami Liriano DO LABORATORY Final Re sult [facility] 3 [place] [address], * (ABNORMAL) VITAMIN D 1,25 DIHYDROXY (09/05/2020 2:00 PM [place]) VITAMIN D 1 25 DIHYDROXY S/P/B 15(L) 18 - 72 pg/mL 09/09/2020 10:37 PM [place] [facility] VITAMIN D3 1 25 DIHYDROXY S/P/B 15 pg/mL 09/09/2020 10:37 PM [place] [facility] VITAMIN D2 1 25 DIHYDROXY S/P/B <8 pg/mL 09/09/2020 10:37 PM [place] [facility] Comment: Vitamin D3, 1,25(OH)2 indicates both endogenous production and supplementation. Vitamin D2, 1,25(OH)2 is an indicator of exogenous sources, such as diet or supplementation. ??Interpretation and therapy are based on measurement of Vitamin D,1,25(OH)2, Total. This test was developed and its analytical performance characteristics have been determined by [facility], [place], [place]. It has not been cleared or approved by the FDA. This assay has been validated pursuant to the CLIA regulations and is used for clinical purposes. Test Performed by [facility], [facility], [address] [place], [place] Grzegorz Gomez M.D., Ph.D., Director of Laboratories , CLIA [id number] 09/05/2020 2:00 PM [place] Sami Liriano DO LABORATORY Final Re sult [facility] [address] [place], [place] , * (ABNORMAL) LIPID PANEL (09/05/2020 2:00 PM [place]) CHOLESTEROL 227(H) <200 MG/DL 09/05/2020 7:26 PM [facility] TRIGLYCERIDES 150(H) <150 MG/DL 09/05/2020 7:26 PM [facility] HDL 47 >40.0 MG/DL 09/05/2020 7:26 PM [facility] LDL (CALCULATED) 150(H) <100 MG/DL 09/05/2020 7:26 PM [facility] NON HDL CHOLESTEROL 180(H) <130 MG/DL 09/05/2020 7:26 PM [facility] CHOL/HDL RATIO 4.8(H) 0.0 - 4.5 09/05/2020 7:26 PM [facility] VLDL CALCULATION 30 5 - 55 MG/DL 09/05/2020 7:26 PM [facility] LIPID INTERPRETATION 09/05/2020 7:26 PM [facility] Comment: NIH CONCENSUS REPORT RECOMMENDATIONS: [...] ?LDL ? >=160 ?>=130 09/05/2020 2:00 PM [place] us Sami Liriano DO LABORATORY Final Re sult Performing Organization Address [facility]/State/ZIP Co de Phone Number [facility] 3 [place] [address], * TSH W/REFLEX (09/05/2020 2:00 PM [place]) TSH 2.220 0.358 - 3.74 uIU/ML 09/05/2020 7:26 PM [place] [facility] Comment: HIGH DOSES OF BIOTIN MAY INTERFERE WITH THIS TEST RESULT. CORRELATION TO CLINICAL HISTORY AND PRESENTATION RECOMMENDED. FREE T4 NOT INDICATED 09/05/2020 2:00 PM [place] Sami Liriano DO LABORATORY Final Re sult [facility] 3 [place] [address], documented in this encounter Visit Diagnoses Diagnosis [...] Total Score: 0 10/29/19 20 11:04 AM [place] documented as of this encounter Care Teams Extractions Technician Relationship Specialty Start Date End Date Sami Liriano DO [address] [place] [address] PCP - General FAMILY PRACTICE 12/24/19 documented as of this encounter
--- OUTSIDE RECORDS SUMMARY | 2024-09-19 19:44 | XMS_ITS | Encounter Summary ---
Author Organization [facility] Address [address] [place] [address]. [place], [place] [address] [place] [address] Care Team Providers Care Stage Electrician Helper Name Role Phone Sami Liriano DO Primary Care Provider + Reason for Visit * Reason Onset Date Comments Other 10/04/2020 Labs. Encounter Details Date Type Department Care Team (Late st Contact Info) Description 10/04/2020 Telephone [facility] Family & Internal Medicine [facility] [address] [place] [address] Sami Liriano DO [facility] [place] [address] Other (Labs. ) Social History [...] on file Legal Sex Female 12:43 PM PLANNER INTERNSHIP Gender Identity Female 12/18/2021 6:31 AM [...] COVID-19? No / Unsure 09/05/2020 12:43 PM PLANNER INTERNSHIP documented as of this encounter Progress Notes [...] month to go over meds. BB 10/04/20. NER INTERNSHIP NER INTERNSHIP NER INTERNSHIP documented in this encounter Plan of Treatment Upcoming Encounters Date Type Department Care Team (Late st Contact Info) Description 10/09/2024 9:30 AM PLANNER INTERNSHIP Office Visit [facility]-[address] [phone] Carlos Farris MD Three [facility] Suite [facility] [place] [address] 11/02/2024 10:20 AM PLANNER INTERNSHIP Office Visit [facility] Family & Internal Medicine - [address] [phone] Sami Liriano DO [address] [place] [address] documented as of this encounter Visit Diagnoses Not on filedocumented in this encounter Additional Health Concerns Assessment Noted Time PHQ-9 Depression Total Score: 0 10/29/19 11:04 AM PLANNER INTERNSHIP documented as of this encounter Care Teams Stage Electrician Helper Relationship Specialty Start Date End Date Sami Liriano DO [address] [place] [address] PCP - General FAMILY PRACTICE 12/24/19 documented as of this encounter
--- OUTSIDE RECORDS SUMMARY | 2024-09-19 19:44 | XMS_ITS | Encounter Summary ---
Author Organization [facility] Address [address] [place] [address]. [place], [place] [address] [place] [address] Care Team Providers Care Heart Specialist Name Role Phone Sami Liriano DO Primary Care Provider + Reason for Visit * Reason Comments Face started saturday morni ng Hypertension Headache Encounter Details Date Type Department Care Team (Late st Contact Info) Description 12/07/2020 10:00 AM PRIVACY MANAGER Office Visit [facility] Family & Internal Medicine [address] [phone] Sami Liriano DO [address] [place] [address] Face (started saturday morning ); Hypertension; Headache [...] on file Legal Sex Female 12:43 PM PRIVACY MANAGER Gender Identity Female 12/18/2021 6:31 AM [...] COVID-19? No / Unsure 12/07/2020 9:46 AM PRIVACY MANAGER documented as of this encounter Last Filed Vital Signs Vital Sign Reading Time Taken Comments Blood Pressure 166/76 12/07/2020 10:02 AM PRIVACY MANAGER Pulse 89 12/07/2020 10:02 AM PRIVACY MANAGER Temperature 36.5 ??C (97.7 ??F) 12/07/2020 10:[address] Respiratory Rate 16 12/07/2020 10:02 AM PRIVACY MANAGER Oxygen Saturation 97% 12/07/2020 10:02 AM PRIVACY MANAGER Inhaled Oxygen Concentration - - Weight 112.5 kg (248 lb) 12/07/2020 10:02 AM PRIVACY MANAGER Height 152.4 cm (5') 12/07/2020 10:02 AM PRIVACY MANAGER Body Mass Index 48.43 12/07/2020 10:02 AM PRIVACY MANAGER documented in this encounter Patient Instructions * Patient Instructions* Sami Liriano DO - 12/07/2020 10:00 AM PRIVACY MANAGER Take 40 mg of lisinopril daily. Also start taking chlorthalidone 25 mg daily; we have sent this to your pharmacy. Come back in blood pressure check next week Saturday or Saturday. ACY MANAGER documented in this encounter Progress Notes * [...] Joel Keenan MD at [facility] OR ??? EGD ??? HERNIA REPAIR [...] file Occupational History ??? 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 Financial resource strain: Not [...] file Gets together: Not on file Attends rastafari service: Not on file Active member of [...] time. Patient verbalized understanding. Sami Liriano DO ACY MANAGER documented in this encounter Plan of Treatment Upcoming Encounters Date Type Department Care Team (Late st Contact Info) Description 10/09/2024 9:30 AM PRIVACY MANAGER Office Visit [facility]-[address] [phone] Carlos Farris MD [facility] [address] [place] [address] 11/02/2024 10:20 AM PRIVACY MANAGER Office Visit [facility] Medical Group Family & Internal Medicine - [address] [phone] Sami Liriano DO [address] [place] [address] documented as of this encounter Visit Diagnoses Diagnosis Essential hypertension- Primary Unspecified essential hypertension Swelling of both upper extremities Swelling of both lower extremities Acute nonintractable headache, unspecified headache type documented in this encounter Additional Health Concerns Assessment Noted Time PHQ-9 Depression Total Score: 16 021 10:04 AM PRIVACY MANAGER documented as of this encounter Care Teams Heart Specialist Relationship Specialty Start Date End Date Sami Liriano DO [address] [place] [address] PCP - General FAMILY PRACTICE 12/24/19 documented as of this encounter
--- OUTSIDE RECORDS SUMMARY | 2024-09-19 19:44 | XMS_ITS | Encounter Summary ---
Author Organization [facility] Address [facility]. 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 No / Unsure 09/05/2020 12:43 PM OVERCOIL STEPPER documented as of this encounter Plan of Treatment Upcoming Encounters Date Type Department Care Team (Late st Contact Info) Description 10/09/2024 9:30 AM OVERCOIL STEPPER Office Visit [facility]-[address] [phone] Carlos Farris MD Three [facility] [address] [place] [address] 11/02/2024 10:20 AM OVERCOIL STEPPER Office Visit [facility] Family & Internal Medicine - [address] [phone] Sami Liriano DO [address] [place] [address] documented as of this encounter Visit Diagnoses Not on filedocumented in this encounter Additional Health Concerns Assessment Noted Time PHQ-9 Depression Total Score: 0 10/29/19 11:04 AM OVERCOIL STEPPER documented as of this encounter Care Teams Lens Examiner Relationship Specialty Start Date End Date Sami Liriano DO [address] [place] [address] PCP - General FAMILY PRACTICE 12/24/19 documented as of this encounter
--- OUTSIDE RECORDS SUMMARY | 2024-09-19 19:44 | XMS_ITS | Encounter Summary ---
Author Organization [facility] Address [facility]. [place], [place] [address] [place] [address] Care Team Providers Care Welfare Visitor Name Role Phone Sami Liriano DO Primary Care Provider + Encounter Details Date Type Department Care Team (Latest Contact Info) Description 09/05/2020 8:59 AM COLOR FINISHER - 09/05/2020 6:14 PM COLOR FINISHER Hospital Encounter [facility] [place] [address] Sami Liriano DO [address] [place] [phone] Discharge Disposition: Home or Self Care (Routine [...] on file Legal Sex Female 12:43 PM COLOR FINISHER Gender Identity Female 12/18/2021 6:31 AM [...] COVID-19? No / Unsure 09/05/2020 12:43 PM COLOR FINISHER documented as of this encounter Medications at [...] st Contact Info) Description 10/09/2024 9:30 AM COLOR FINISHER Office Visit [facility]-[address] [phone] Carlos Farris MD [facility] Suite [facility] [place] [address] 11/02/2024 10:20 AM COLOR FINISHER Office Visit [facility] Group Family & Internal Medicine - [address] [phone] Sami Liriano DO [address] [place] [address] documented as of this encounter Procedures Procedure Name Priority Date/Time Associated Diagnosis Comments HEMOGLOBIN, GLYCOSYLATED Routine 09/05/2020 2:00 PM COLOR FINISHER Hyperglycemia documented in this encounter Results * (ABNORMAL) HEMOGLOBIN, GLYCOSYLATED (09/05/2020 2:00 PM COLOR FINISHER) HGB A1C 5.8(H) <5.7 % 09/06/2020 10:[address] [facility] Comment: ADA GUIDELINES 2010 5.7 TO 6.4% INCREASED RISK OF DIABETES > OR = 6.5% CONSISTENT WITH DIABETES ESTIMATED AVG GLUCOSE 120 mg/dL 09/06/2020 10:[address] [facility] 09/05/2020 2:00 PM COLOR FINISHER Sami Liriano DO LABORATORY Final Re sult [facility] 3 [place] [address], documented in this encounter Visit Diagnoses Diagnosis Hyperglycemia Other abnormal glucose documented in this encounter Additional Health Concerns Assessment Noted Time PHQ-9 Depression Total Score: 0 10/29/19 20 11:04 AM COLOR FINISHER documented as of this encounter Care Teams Welfare Visitor Relationship Specialty Start Date End Date Sami Liriano DO [address] [place] [address] PCP - General FAMILY PRACTICE 12/24/19 documented as of this encounter
--- OUTSIDE RECORDS SUMMARY | 2024-09-19 19:44 | XMS_ITS | Encounter Summary ---
Author Organization [facility] Address [address] [place] [address]. 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 Medical Group Family & Internal Medicine - [address] [phone] Sami Liriano DO [address] [place] [address] documented as of this encounter Visit Diagnoses Not on filedocumented in this encounter Additional Health Concerns Assessment Noted Time PHQ-9 Depression Total Score: 0 10/29/19 20 11:04 AM BARGE CAPTAIN documented as of this encounter Care Teams Rail Car Repairer Relationship Specialty Start Date End Date Sami Liriano DO [address] [place] [address] PCP - General FAMILY PRACTICE 12/24/19 documented as of this encounter
--- OUTSIDE RECORDS SUMMARY | 2024-09-19 19:44 | XMS_ITS | Encounter Summary ---
Author Organization [facility] Address [address] [place] [address]. [place], [place] [address] [place] [address] Care Team Providers Care Security Sales Manager Name Role Phone Sami Liriano DO Primary Care Provider + Reason for Visit * Reason Onset Date Comments Edema 12/05/2020 Encounter Details Date Type Department Care Team (Late st Contact Info) Description 12/05/2020 Nurse Triage [facility] Medical Group Family & Internal Medicine [facility] [address] [place] [address] Sami Liriano DO [facility] [address] [place] [address] Edema Social History Tobacco Use [...] on file Legal Sex Female 12:43 PM DRAFTER AUTOMOTIVE DESIGN LAYOUT Gender Identity Female 12/18/2021 6:31 AM CDT Sexual Orientation Straight 01/15/2022 6: 11 AM CDT 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 No further recommendations at this time. TER AUTOMOTIVE DESIGN LAYOUT * Deb Varela RN - 12/06/2020 12:12 PM CST Patient Called back stating swelling had gone down in bilt lower extremities. Patient did state that she still has some swelling in her hands and this AM- blood pressure [id number]. Patient felt dizzywith slight headache. After taking morning medication patient B/P returned to 130/78 (her normal rang). All other symptoms subsided as well. 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 Scheduled for 12/06/20 at 10 am. LL-12/06/20 TER AUTOMOTIVE DESIGN LAYOUT * Delores Abreu - 12/06/2020 10:21 AM CST Patient called back in asking to speak to you. I advised her that you would call her back. TER AUTOMOTIVE DESIGN LAYOUT * Deb Varela RN - 12/05/2020 9:07 [...] further needs voiced at this time. LL-12/05/20 TER AUTOMOTIVE DESIGN LAYOUT documented in this encounter Plan of Treatment Upcoming Encounters Date Type Department Care Team (Late st Contact Info) Description 10/09/2024 9:30 AM DRAFTER AUTOMOTIVE DESIGN LAYOUT Office Visit [facility] [phone] Carlos Farris MD [address] [facility] [place] [address] 11/02/2024 10:20 AM DRAFTER AUTOMOTIVE DESIGN LAYOUT Office Visit [facility] Medical Group Family & Internal Medicine - [address] [phone] Sami Liriano DO [address] [place] [address] documented as of this encounter Visit Diagnoses Not on filedocumented in this encounter Additional Health Concerns Assessment Noted Time PHQ-9 Depression Total Score: 0 10/29/19 20 11:04 AM DRAFTER AUTOMOTIVE DESIGN LAYOUT documented as of this encounter Care Teams Security Sales Manager Relationship Specialty Start Date End Date Sami Liriano DO [address] [place] [address] PCP - General FAMILY PRACTICE 12/24/19 documented as of this encounter
--- OUTSIDE RECORDS SUMMARY | 2024-09-19 19:44 | XMS_ITS | Encounter Summary ---
Author Organization [facility] Address [address] [place] [address]. [place], [place] [address] [place] [address] Care Team Providers Care Relief Pharmacist Name Role Phone Sami Liriano DO Primary Care Provider + Reason for Visit * Reason Onset Date Comments Lab Results 09/12/2020 Encounter Details Date Type Department Care Team (Late st Contact Info) Description 09/12/2020 Telephone [facility] Medical Group Family & Internal Medicine [facility] [address] [place] [address] Sami Liriano DO [address] [place] [address] Lab Results Social History Tobacco [...] on file Legal Sex Female 12:43 PM KNEE BOLTER Gender Identity Female 12/18/2021 6:31 AM CDT [...] COVID-19? No / Unsure 09/05/2020 12:43 PM KNEE BOLTER documented as of this encounter Progress Notes * Melanie Lance MA - 09/12/2020 8:43 AM CST Patient contacted and informed of results. Rx sent to pharmacyu and she will cb for appt after holidays. tn BOLTER * Melanie Lance MA - 09/12/2020 8:39 AM CST ----- Message from Sami Liriano DO sent at 09/11/2020 1:55 PM KNEE BOLTER ----- A1c is mildly elevated at 5.8; [...] f/u in 1-2 months from last OV. BOLTER documented in this encounter Plan of Treatment Upcoming Encounters Date Type Department Care Team (Late st Contact Info) Description 10/09/2024 9:30 AM KNEE BOLTER Office Visit [facility] [phone] Carlos Farris MD Three [facility] [address] [place] [address] 11/02/2024 10:20 AM KNEE BOLTER Office Visit [facility] Medical Group Family & Internal Medicine - [address] [phone] Sami Liriano DO [address] [place] [address] documented as of this encounter Visit Diagnoses Diagnosis Hyperlipidemia- Primary Other and unspecified hyperlipidemia documented in this encounter Additional Health Concerns Assessment Noted Time PHQ-9 Depression Total Score: 0 10/29/19 20 11:04 AM KNEE BOLTER documented as of this encounter Care Teams Relief Pharmacist Relationship Specialty Start Date End Date Sami Liriano DO [facility] [place] [address] PCP - General FAMILY PRACTICE 12/24/19 documented as of this encounter
--- OUTSIDE RECORDS SUMMARY | 2024-09-19 19:44 | XMS_ITS | Encounter Summary ---
Author Organization [facility] Address [address] [place] [address]. [place], [place] [address] [place] [address] Care Team Providers Care Lumber Racker Name Role Phone Sami Liriano DO Primary Care Provider + Reason for Visit * Reason Onset Date Comments Lab Order 09/06/2020 Encounter Details Date Type Department Care Team (Late st Contact Info) Description 09/06/2020 Telephone [facility] Medical Group Family & Internal Medicine [facility] [address] [place] [address] Sami Liriano DO [address] [place] [address] Lab Order Social History Tobacco [...] on file Legal Sex Female 12:43 PM LIQUEFACTION AND REGASIFICATION HELPER Gender Identity Female 12/18/2021 6:31 AM [...] COVID-19? No / Unsure 09/05/2020 12:43 PM LIQUEFACTION AND REGASIFICATION HELPER documented as of this encounter Progress Notes * Melanie Lance MA - 09/12/2020 4:25 PM CST Patient informed and aware of results tn EFACTION AND REGASIFICATION HELPER * Leanna Bean RN - 09/06/2020 8:57 AM CST Test added per Brooke at [facility]. EFACTION AND REGASIFICATION HELPER * Sami Liriano DO - 09/06/2020 8:18 AM CST Can we add on an A1c? [facility] EFACTION AND REGASIFICATION HELPER documented in this encounter Plan of Treatment Upcoming Encounters Date Type Department Care Team (Late st Contact Info) Description 10/09/2024 9:30 AM LIQUEFACTION AND REGASIFICATION HELPER Office Visit [facility] [phone] Carlos Farris MD [address] [facility] [address] [facility] [place] [address] 11/02/2024 10:20 AM LIQUEFACTION AND REGASIFICATION HELPER Office Visit [facility] Medical Group Family & Internal Medicine - [address] [phone] Sami Liriano DO [address] [place] [address] documented as of this encounter Results * (ABNORMAL) HEMOGLOBIN, GLYCOSYLATED (09/05/2020 2:00 PM LIQUEFACTION AND REGASIFICATION HELPER) HGB A1C 5.8(H) <5.7 % 09/06/2020 10:25 AM LIQUEFACTION AND REGASIFICATION HELPER [facility] Comment: ADA GUIDELINES 2010 5.7 TO 6.4% INCREASED RISK OF DIABETES > OR = 6.5% CONSISTENT WITH DIABETES ESTIMATED AVG GLUCOSE 120 mg/dL 09/06/2020 10:25 AM LIQUEFACTION AND REGASIFICATION HELPER [facility] 09/05/2020 2:00 PM LIQUEFACTION AND REGASIFICATION HELPER us Sami Liriano DO LABORATORY Final Re sult [facility] [address] [place] [address], documented in this encounter Visit Diagnoses Diagnosis Hyperglycemia- Primary Other abnormal glucose documented in this encounter Additional Health Concerns Assessment Noted Time PHQ-9 Depression Total Score: 0 10/29/19 20 11:04 AM LIQUEFACTION AND REGASIFICATION HELPER documented as of this encounter Care Teams Lumber Racker Relationship Specialty Start Date End Date Sami Liriano DO [address] [place] [address] PCP - General FAMILY PRACTICE 12/24/19 documented as of this encounter
--- OUTSIDE RECORDS SUMMARY | 2024-09-19 19:44 | XMS_ITS | Encounter Summary ---
Author Organization [facility] Address [address] [place] [address]. 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 file Not on file Not on franck e documented as of this encounter Plan of Treatment Upcoming Encounters Date Type Department Care Team (Late Contact Info) Description 10/09/2024 9:30 AM PRACTICAL NURSING INSTRUCTOR Office Visit [facility] [phone] Carlos Farris MD [address] [facility] [address] [place] [address] 11/02/2024 10:20 AM PRACTICAL NURSING INSTRUCTOR Office Visit [facility] Medical Group Family & Internal Medicine - [address] [phone] Sami Liriano DO [address] [place] [address] documented as of this encounter Visit Diagnoses Not on filedocumented in this encounter Additional Health Concerns Assessment Noted Time PHQ-9 Depression Total Score: 0 10/29/19 20 11:04 AM PRACTICAL NURSING INSTRUCTOR documented as of this encounter Care Teams Lunchroom Aide Relationship Specialty Start Date End Date Sami Liriano DO [address] [place] [address] PCP - General FAMILY PRACTICE 12/24/19 documented as of this encounter
--- OUTSIDE RECORDS SUMMARY | 2024-09-19 19:44 | XMS_ITS | Encounter Summary ---
Author Organization [facility] Address [address] [place] [address]. [place], [place] [address] [place] [address] Care Team Providers Care Uat Tester Name Role Phone Sami Liriano DO Primary Care Provider + Reason for Visit * Reason Onset Date Comments Blood Pressure 05/29/2020 Encounter Details Date Type Department Care Team (Late st Contact Info) Description 05/29/2020 Telephone [facility] Family & Internal Medicine [facility] [address] [place] [address] Sami Liriano DO [address] [place] [address] Blood Pressure Social History Tobacco [...] on file Legal Sex Female 12:43 PM LUBRICATION SERVICER Gender Identity Female 12/18/2021 6:31 AM [...] 06/14/2020 9:40 AM CDT LMT[facility] 06/14/20 * Sami Liriano DO - 06/13/2020 7:57 PM CDT [...] is at work, would like call on [phone] * Leanna Bean RN - 06/01/2020 8:54 AM CDT [facility] 06/01/20 * Radha Oglesby MA - 05/31/2020 4:27 PM CDT [facility] 05/31/20 * Sami Liriano DO - 05/31/2020 [...] Bean RN - 05/30/2020 11:38 AM CDT [facility] 05/30/20 * Sami Liriano DO - [...] st Contact Info) Description 10/09/2024 9:30 AM LUBRICATION SERVICER Office Visit [facility]-[address] [phone] Carlos Farris MD [facility] [address] [facility] [place] [address] 11/02/2024 10:20 AM LUBRICATION SERVICER Office Visit [facility] Group Family & Internal Medicine - [address] [phone] Sami Liriano DO [address] [place] [address] documented as of this encounter Visit Diagnoses Diagnosis Essential hypertension Unspecified essential hypertension documented in this encounter Additional Health Concerns Assessment Noted Time PHQ-9 Depression Total Score: 0 10/29/19 20 11:04 AM LUBRICATION SERVICER documented as of this encounter Care Teams Uat Tester Relationship Specialty Start Date End Date Sami Liriano DO [address] [place] [address] PCP - General FAMILY PRACTICE 12/24/19 documented as of this encounter
--- OUTSIDE RECORDS SUMMARY | 2024-09-19 19:44 | XMS_ITS | Encounter Summary ---
Author Organization [facility] Address [facility]. [place], [place] [address] [place] [address] Care Team Providers Care Panel Instrument Repairer Name Role Phone Sami Liriano DO Primary Care Provider + Reason for Referral * Imaging (Routine) - Closed Specialty Diagnoses / Procedures Referred By Shereen benton Referred To Contact RADIOLOGY Diagnoses Encounter for screening mammogram for breast cancer Procedures MG SCREENING W SHIN HAN DIGI Sami Liriano DO [address] [place] [address] Phone: tel: fax: [facility] [address] [place] [address] Phone: tel: fax: Referral ID Status Reason Start Date Expiration Date Visits Re quested Visits Authorized [id number] Closed 09/05/2020 10/06/2021 99 99 K 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 Reason for Visit * Reason Comments Hypertension follow up Encounter Details Date Type Department Care Team (Late st Contact Info) Description 09/05/2020 1:20 PM CHALK 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 Office Visit [facility] Medical Group Family & Internal Medicine - [place] [address] [place] [address] Sami Liriano DO [address] [place] [address] Hypertension (follow up ) Social History Tobacco [...] on file Legal Sex Female 12:43 PM CHALK 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 Gender Identity Female 12/18/2021 6:31 [...] COVID-19? No / Unsure 09/05/2020 12:43 PM CHALK 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 documented as of this encounter Last Filed Vital Signs Vital Sign Reading Time Taken Comments Blood Pressure 148/80 09/05/2020 1:09 PM CHALK 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 Pulse 59 09/05/2020 1:09 PM CHALK 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 Temperature 36.6 ??C (97.8 ??F) 09/05/2020 1:09 PM CS T Respiratory Rate 16 09/05/2020 1:09 PM CHALK 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 Oxygen Saturation 96% 09/05/2020 1:09 PM CHALK 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 Inhaled Oxygen Concentration - - Weight 112.4 kg (247 lb 14.4 oz) 09/05/2020 1:09 PM CHALK 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 Height 152.4 cm (5') 09/05/2020 1:09 PM CHALK 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 Body Mass Index 48.41 09/05/2020 1:09 PM CHALK 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 documented in this encounter Progress Notes [...] by Joel Keenan MD at [facility] OR ??? EGD ??? HERNIA REPAIR ??? [...] on file Occupational History ??? 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 Financial resource strain: Not [...] file Gets together: Not on file Attends anabaptism service: Not on file Active member of [...] prophylactic vaccination against Streptococcus pneumoniae (pneumococcus) - [48844] Prevnar 13 (Pneumococcal) Overactive bladder Discussion/Summary: Will [...] and blood pressure meds. Sami Liriano DO K 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 documented in this encounter Plan of Treatment Upcoming Encounters Date Type Department Care Team (Late st Contact Info) Description 10/09/2024 9:30 AM CHALK 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 Office Visit [facility] [phone] Carlos Farris MD [address] [facility] [address] [facility] [place] [address] 11/02/2024 10:20 AM CHALK 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 Office Visit [facility] Medical Group Family & Internal Medicine - [address] [phone] Sami Liriano DO [address] [place] [address] (work) Scheduled Orders Name Type Priority Associated Diagnoses Orde r Schedule MG SCREENING W SHIN HAN DIGI MAMMO Routine Encounter for screening mammogram for breast cancer Ordered: 09/05/2020 documented as of this encounter Results * (ABNORMAL) COMPREHENSIVE METABOLIC PANEL (09/05/2020 2:00 PM CHALK 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) GLUCOSE 102(H) 70 - 99 MG/DL 09/05/2020 7:26 PM [facility] BUN 18 7 - 18 MG/DL 09/05/2020 7:26 PM [facility] CREATININE S/P/B 1.02 0.55 - 1.02 MG/DL 09/05/2020 7:26 PM [facility] SODIUM S/P/B 139 136 - 145 MMOL/L 09/05/2020 7:26 PM [facility] POTASSIUM S/P/B 3.9 3.5 - 5.1 MMOL/L 09/05/2020 7:26 PM [facility] CHLORIDE S/P/B 105 100 - 108 MMOL/L 09/05/2020 7:26 PM [facility] CO2 27.2 21 - 32 MMOL/L 09/05/2020 7:26 PM [facility] CALCIUM S/P/B 9.4 8.5 - 10.1 MG/DL 09/05/2020 7:26 PM [facility] BILIRUBIN TOTAL S/P/B 1.2 0.2 - 1.2 MG/DL 09/05/2020 7:26 PM [facility] Comment: THIS ASSAY IS NOT RECOMMENDED FOR PATIENTS UNDERGOING TREATMENT WITH ELTROMBOPAG DUE TO THE POTENTIAL FOR FALSELY ELEVATED RESULTS. TOTAL PROTEIN S/P/B 7.9 6.4 - 8.2 G/DL 09/05/2020 7:26 PM [facility] ALBUMIN S/P/B 4.2 3.4 - 5.0 G/DL 09/05/2020 7:26 PM [facility] AST 15 15 - 37 U/L 09/05/2020 7:26 PM [facility] ALT 26 14 - 55 U/L 09/05/2020 7:26 PM [facility] ALKALINE PHOSPHATASE S/P/B 110 50 - 136 U/L 09/05/2020 7:26 PM [facility] ANION GAP 6.8 5 - 15 MMOL/L 09/05/2020 7:26 PM [facility] BUN CREATININE RATIO 17.6 6 - 26 09/05/2020 7:26 PM [facility] A/G RATIO 1.1 1.0 - 2.0 RATIO 09/05/2020 7:26 PM [facility] EGFR NON-AFR. AMER. 57(L) >90 ML/MIN/1.7 3 M2 09/05/2020 7:26 PM [facility] EGFR AFR. AMER. 66(L) >90 ML/MIN/1.7 3 M2 09/05/2020 7:26 PM [facility] Comment: NOTE: eGFR is not calculated for patients <18 years of age. This is an estimated GFR (CKD EPI) and should not be used for calculating drug doses. 09/05/2020 2:00 PM CHALK 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 us Sami Liriano DO LABORATORY Final Re sult [facility] 3 [place] [address], * (ABNORMAL) VITAMIN D 1,25 DIHYDROXY (09/05/2020 2:00 PM CHALK 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) VITAMIN D 1 25 DIHYDROXY S/P/B 15(L) 18 - 72 pg/mL 09/09/2020 10:37 PM CHALK 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 [facility] VITAMIN D3 1 25 DIHYDROXY S/P/B 15 pg/mL 09/09/2020 10:37 PM CHALK 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 [facility] VITAMIN D2 1 25 DIHYDROXY S/P/B <8 pg/mL 09/09/2020 10:37 PM CHALK 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 [facility] Comment: Vitamin D3, 1,25(OH)2 indicates both endogenous production and supplementation. Vitamin D2, 1,25(OH)2 is an indicator of exogenous sources, such as diet or supplementation. ??Interpretation and therapy are based on measurement of Vitamin D,1,25(OH)2, Total. This test was developed and its analytical performance characteristics have been determined by [email or web address]. It has not been cleared or approved by the FDA. This assay has been validated pursuant to the CLIA regulations and is used for clinical purposes. Test Performed by [facility], [facility], [address] [place] [address] Grzegorz Gomez M.D., Ph.D., Director of Laboratories , CLIA [id number] 09/05/2020 2:00 PM CHALK 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 Sami Liriano DO LABORATORY Final Re sult [facility] [place] [id number] [place], [place] , [place] [phone] documented in this encounter Visit Diagnoses Diagnosis Arthritis of left knee- Primary Unspecified arthropathy, lower leg Essential hypertension Unspecified essential hypertension Current mild episode of major depressive disorder without prior episode ([facility]) Postmenopausal Asymptomatic postmenopausal status (age-related) (natural) Need for shingles vaccine Need for prophylactic vaccination and inoculation against other viral diseases BMI 45.0-49.9, adult ([facility]) Body Mass Index 45.0-49.9, adult Encounter for screening mammogram for breast cancer Need for prophylactic vaccination against Streptococcus pneumoniae (pneumococcus) Need for prophylactic vaccination against streptococcus pneumoniae (pneumococcus) Overactive bladder Hypertonicity of bladder documented in this encounter Additional Health Concerns Assessment Noted Time PHQ-9 Depression Total Score: 0 10/29/19 11:04 AM CHALK 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 documented as of this encounter Care Teams Panel Instrument Repairer Relationship Specialty Start Date End Date Sami Liriano DO [address] [place] [address] PCP - General FAMILY PRACTICE 12/24/19 documented as of this encounter
--- OUTSIDE RECORDS SUMMARY | 2024-09-19 19:45 | XMS_ITS | Encounter Summary ---
Author Organization [facility] Address [facility]. [place], [place] [address] [place] [address] Care Team Providers Care Wig Dresser Name Role Phone Sami Liriano Primary Care Provider + Encounter Details Date Type Department Care Team (Late st Contact Info) Description 04/21/2020 Prep for Procedure [facility] [address] [place] [address] Joel Keenan MD [address] [phone] Social History Tobacco Use Types Packs/Day Years [...] on file Legal Sex Female 12:43 PM HANDWRITING EXPERT Gender Identity Female 12/18/2021 6:31 AM CDT [...] st Contact Info) Description 10/09/2024 9:30 AM HANDWRITING EXPERT Office Visit [facility] [phone] Carlos Farris MD [address] [facility] [address] [facility] [place] [address] 11/02/2024 10:20 AM HANDWRITING EXPERT Office Visit [facility] Family & Internal Medicine - [address] [phone] Sami Liriano DO [address] [place] [address] documented as of this encounter Results * PRE-SURGICAL/PRE-PROCEDURE CORONAVIRUS (COVID 19) (04/24/2020 9:16 AM CDT) CORONAVIRUS SARS COV 2 PCR (RESP) NOT DETECTED NOT DETECTED 04/25/2020 4:27 PM CDT [facility] Comment: A Not Detected (negative) test [...] providers and patients using the following websites: https://www.MarketPage.com/home/Covid-19/HCP/NAAT/fact-sheet2 https://www.MarketPage.com/home/Covid-19/Patients/NAAT/ fact-sheet2 This test has been authorized by the FDA under an Emergency Use Authorization (EUA) for use by authorized laboratories. Due to the current public health emergency, [facility] is receiving a high volume of samples [...] about COVID-19 can be found at the [facility] website: www.[employer]/Covid19. Test performed at [facility] [place] [address] [place], [place] ??[address] Director: DEDRA DENG DO,MPH NASOPHARYNGEAL SWAB / Unknown 04/24/2020 9:16 AM CDT us Joel Keenan MD MICROBIOLOGY - GENERAL ORDERABLE S Final Result [facility] [address] [address], documented in this encounter Visit Diagnoses Diagnosis Preop testing- Primary Preoperative examination, unspecified documented in this encounter Additional Health Concerns Infection Onset Date Last Indicated Resolved Time COVID-19 Rule Out 04/24/2020 04/24/2020 04/25/2020 4:28 PM CDT COVID-19 Rule Out 05/25/2021 05/25/2021 05/27/2021 4:08 AM CDT COVID-19 Rule Out 10/06/2021 10/11/2021 10/11/2021 8:45 AM HANDWRITING EXPERT COVID-19 Rule Out 10/11/2021 10/11/2021 10/12/2021 1:13 AM HANDWRITING EXPERT COVID-19 Confirmed 10/11/2021 10/11/2021 12:35 AM HANDWRITING EXPERT COVID-19 Rule Out 06/27/2022 06/27/2022 06/27/2022 2:35 PM CDT COVID-19 Rule Out 07/24/2023 07/24/2023 07/24/2023 11:49 AM CDT COVID-19 Rule Out 07/24/2023 07/24/2023 07/25/2023 4:22 PM CDT COVID-19 Rule Out 11/01/2023 11/01/2023 11/01/2023 2:42 PM HANDWRITING EXPERT Assessment Noted Time PHQ-9 Depression Total Score: 0 10/29/19 11:04 AM HANDWRITING EXPERT documented as of this encounter Care Teams Wig Dresser Relationship Specialty Start Date End Date Sami Liriano DO [address] [place] [address] PCP - General FAMILY PRACTICE 12/24/19 documented as of this encounter
--- OUTSIDE RECORDS SUMMARY | 2024-09-19 19:45 | XMS_ITS | Encounter Summary ---
Author Organization [facility] Address [address] [place] [address]. [place], [place] [address] [place] [address] Care Team Providers Care Oil Rag Washer Name Role Phone Sami Liriano Primary Care [...] on file Legal Sex Female 12:43 PM CINDER PIT WORKER Gender Identity Female 12/18/2021 6:31 AM [...] st Contact Info) Description 10/09/2024 9:30 AM CINDER PIT WORKER Office Visit [facility]-[address] [phone] Carlos Farris MD [facility] [address] [place] [address] 11/02/2024 10:20 AM CINDER PIT WORKER Office Visit [facility] Family & Internal Medicine - [address] [phone] Sami Liriano DO [address] [place] [address] documented as of this encounter Visit Diagnoses Not on filedocumented in this encounter Additional Health Concerns Assessment Noted Time PHQ-9 Depression Total Score: 0 10/29/19 20 11:04 AM CINDER PIT WORKER documented as of this encounter Care Teams Oil Rag Washer Relationship Specialty Start Date End Date Sami Liriano DO [address] [place] [address] PCP - General FAMILY PRACTICE 12/24/19 documented as of this encounter
--- OUTSIDE RECORDS SUMMARY | 2024-09-19 19:45 | XMS_ITS | Encounter Summary ---
Author Organization [facility] Address [address] [place] [address]. [place], [place] [address] [place] [address] Care Team Providers Care Customer Project Manager Name Role Phone Sami Liriano Primary Care Provider + Reason for Visit * Reason Comments Colonoscopy/EGD (SCAN) Encounter Details Date Type Department Care Team ([facility] Contact Info) Description 04/27/2020 Scan HEALTH INFO [...] on file Legal Sex Female 12:43 PM TELEGRAPH PLANT MAINTAINER Gender Identity Female 12/18/2021 6:31 AM CDT Sexual Orientation Straight 01/15/2022 6: 11 AM CDT COVID-19 Exposure Response Date Recorded In the last month, have you been in contact with someone who was confirmed or suspected to have Coronavirus / COVID-19? No / Unsure 09/05/2020 12:43 PM TELEGRAPH PLANT MAINTAINER documented as of this encounter Plan of Treatment Upcoming Encounters Date Type Department Care Team ([facility] Contact Info) Description 10/09/2024 9:30 AM TELEGRAPH PLANT MAINTAINER Office Visit [facility] [phone] Carlos Farris MD Three [facility] [address] [place] [address] 11/02/2024 10:20 AM TELEGRAPH PLANT MAINTAINER Office Visit [facility] Family & Internal Medicine - [address] [phone] [place] [address] [place] [address] documented as of this encounter Procedures Procedure Name Priority Date/Time Associated Diagnosis Comments COLONOSCOPY/EGD GENERIC (SCA N ORDER) Routine 04/27/2020 documented in this encounter Results * COLONOSCOPY/EGD (04/27/2020) us Documents Scanned SCANNING Final Result [facility] documented in this encounter Visit Diagnoses Not on filedocumented in this encounter Additional Health Concerns Assessment Noted Time PHQ-9 Depression Total Score: 0 10/29/19 20 11:04 AM TELEGRAPH PLANT MAINTAINER documented as of this encounter Care Teams Customer Project Manager Relationship Specialty Start Date End Date Sami Liriano DO [address] [place] [address] PCP - General FAMILY PRACTICE 12/24/19 documented as of this encounter
--- OUTSIDE RECORDS SUMMARY | 2024-09-19 19:45 | XMS_ITS | Encounter Summary ---
Author Organization [facility] Address [address] [place] [address]. [place], [place] [address] [place] [address] Care Team Providers Care Data Analytics Developer Name Role Phone Sami Liriano DO Primary Care Provider + Reason for Visit * Reason Onset Date Comments Results 04/25/2020 Encounter Details Date Type Department Care Team (Late st Contact Info) Description 04/25/2020 Telephone [facility] Family & Internal Medicine [place] [address] [place] [address] Sami Liriano DO [facility] [place] [address] Results Social History Tobacco Use [...] on file Legal Sex Female 12:43 PM SHIRRING 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 AUTOMATIC Gender Identity Female 12/18/2021 6:31 AM [...] st Contact Info) Description 10/09/2024 9:30 AM SHIRRING 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 AUTOMATIC Office Visit [facility]-[address] [phone] Carlos Farris MD [facility] [address] [place] [address] 11/02/2024 10:20 AM SHIRRING 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 AUTOMATIC Office Visit [facility] Family & Internal Medicine - [address] [phone] Sami Liriano DO [address] [place] [address] documented as of this encounter Visit Diagnoses Not on filedocumented in this encounter Additional Health Concerns Infection Onset Date Last Indicated Resolved Time COVID-19 Rule Out 04/24/2020 04/24/2020 04/25/2020 4:28 PM CDT Assessment Noted Time PHQ-9 Depression Total Score: 0 10/29/19 11:04 AM SHIRRING 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 AUTOMATIC documented as of this encounter Care Teams Data Analytics Developer Relationship Specialty Start Date End Date Sami Liriano DO [address] [place] [address] PCP - General FAMILY PRACTICE 12/24/19 documented as of this encounter
--- OUTSIDE RECORDS SUMMARY | 2024-09-19 19:45 | XMS_ITS | Encounter Summary ---
Author Organization [facility] Address [address] [place] [address]. [place], [place] [address] [place] [address] Care Team Providers Care Boiler Tube Blower Name Role Phone Sami Liriano Primary Care [...] on file Legal Sex Female 12:43 PM GYROSCOPE REPAIRER Gender Identity Female 12/18/2021 6:31 AM [...] st Contact Info) Description 10/09/2024 9:30 AM GYROSCOPE REPAIRER Office Visit [facility]-[address] [phone] Carlos Farris MD Three [facility] [address] [place] [address] 11/02/2024 10:20 AM GYROSCOPE REPAIRER Office Visit [facility] Family & Internal Medicine - [address] [phone] Sami Liriano DO [address] [place] [address] documented as of this encounter Visit Diagnoses Not on filedocumented in this encounter Additional Health Concerns Assessment Noted Time PHQ-9 Depression Total Score: 0 10/29/19 20 11:04 AM GYROSCOPE REPAIRER documented as of this encounter Care Teams Boiler Tube Blower Relationship Specialty Start Date End Date Sami Liriano DO [address] [place] [address] PCP - General FAMILY PRACTICE 12/24/19 documented as of this encounter
--- OUTSIDE RECORDS SUMMARY | 2024-09-19 19:45 | XMS_ITS | Encounter Summary ---
Author Organization [facility] Address [address] [place] [address]. [place], [place] [address] [place] [address] Care Team Providers Care Agricultural Chemicals Inspector Name Role Phone Sami Liriano Primary [...] on file Legal Sex Female 12:43 PM UMBRELLA FINISHER Gender Identity Female 12/18/2021 6:31 AM [...] st Contact Info) Description 10/09/2024 9:30 AM UMBRELLA FINISHER Office Visit [facility]-[address] [phone] Carlos Farris MD [facility] [address] [place] [address] 11/02/2024 10:20 AM UMBRELLA FINISHER Office Visit [facility] Family & Internal Medicine - [address] [phone] Sami Liriano DO [address] [place] [address] documented as of this encounter Visit Diagnoses Not on filedocumented in this encounter Additional Health Concerns Assessment Noted Time PHQ-9 Depression Total Score: 0 10/29/19 20 11:04 AM UMBRELLA FINISHER documented as of this encounter Care Teams Agricultural Chemicals Inspector Relationship Specialty Start Date End Date Sami Liriano DO [address] [place] [address] PCP - General FAMILY PRACTICE 12/24/19 documented as of this encounter
--- OUTSIDE RECORDS SUMMARY | 2024-09-19 19:45 | XMS_ITS | Encounter Summary ---
Author Organization [facility] Address [facility] [place], [place] [address] [place] [address] Care Team Providers Care Pile Operator Name Role Phone Sami Liriano DO Primary Care Provider + Reason for Visit * Reason Comments Edema c/o B/L lower leg sw elling Follow Up follow up on colonos copy,endoscopy and echo Abdominal Pain c/o right sided abdo caleb pain s/p colonoscopy Encounter Details Date Type Department Care Team (Late st Contact Info) Description 05/18/2020 8:40 AM CDT Office Visit [facility] Family & Internal Medicine [address] [phone] Sami Liriano DO [facility] [place], [place] [phone] Edema (c/o B/L lower leg swelling); Follow [...] on file Legal Sex Female 12:43 PM CONTACT LENS MOLDER Gender Identity Female 12/18/2021 6:31 AM CDT [...] performed by Joel Keenan MD at [facility] OR ??? EGD ??? HERNIA REPAIR [...] Occupational History ??? 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 Financial resource strain: Not [...] file Gets together: Not on file Attends congregational service: Not on file Active member of [...] daily for 10 days. BMI 45.0-49.9, adult ([facility]) Benign colon polyp Discussion/Summary: Relayed information about [...] st Contact Info) Description 10/09/2024 9:30 AM CONTACT LENS MOLDER Office Visit [facility]-[address] [phone] Carlos Farris MD [facility] [address] [place] [address] 11/02/2024 10:20 AM CONTACT LENS MOLDER Office Visit [facility] Family & Internal Medicine - [address] [phone] Sami Liriano DO [facility] [place] [address] documented as of this encounter Visit Diagnoses Diagnosis Essential hypertension- Primary Unspecified essential hypertension Night muscle spasms Spasm of muscle Colitis Other and unspecified noninfectious gastroenteritis and colitis BMI 45.0-49.9, adult ([facility]) Body Mass Index 45.0-49.9, adult Benign colon polyp Benign neoplasm of colon documented in this encounter Additional Health Concerns Assessment Noted Time PHQ-9 Depression Total Score: 0 10/29/19 20 11:04 AM CONTACT LENS MOLDER documented as of this encounter Care Teams Pile Operator Relationship Specialty Start Date End Date Sami Liriano DO [address] [place] [address] PCP - General FAMILY PRACTICE 12/24/19 documented as of this encounter
--- OUTSIDE RECORDS SUMMARY | 2024-09-19 19:45 | XMS_ITS | Encounter Summary ---
Author Organization [facility] Address [address] [place] [address]. [place], [place] [address] [place] [address] Care Team Providers Care Cereal Popper Name Role Phone Sami Liriano Primary Care [...] on file Legal Sex Female 12:43 PM GEODESY TEACHER Gender Identity Female 12/18/2021 6:31 AM [...] st Contact Info) Description 10/09/2024 9:30 AM GEODESY TEACHER Office Visit [facility]-[address] [phone] Carlos Farris MD [facility] [address] [place] [address] 11/02/2024 10:20 AM GEODESY TEACHER Office Visit [facility] Family & Internal Medicine - [address] [phone] Sami Liriano DO [address] [place] [address] documented as of this encounter Visit Diagnoses Not on filedocumented in this encounter Additional Health Concerns Assessment Noted Time PHQ-9 Depression Total Score: 0 10/29/19 20 11:04 AM GEODESY TEACHER documented as of this encounter Care Teams Cereal Popper Relationship Specialty Start Date End Date Sami Liriano DO [address] [place] [address] PCP - General FAMILY PRACTICE 12/24/19 documented as of this encounter
--- OUTSIDE RECORDS SUMMARY | 2024-09-19 19:45 | XMS_ITS | Encounter Summary ---
Author Organization [facility] Address [facility]. [place], [place] [address] [place] [address] Care Team Providers Care Licensed Mental Health Counselor Name Role Phone Sami Liriano Nicole AGUIAR Primary Care Provider + Reason for Referral * Surgical (Routine) - Closed Specialty Diagnoses / Procedures Referred By Shereen benton Referred To Contact Diagnoses Pharyngoesophageal dysphagia Positive colorectal cancer screening using Cologuard test Procedures Case request operating room: COLONOSCOPY DIAGNOSTIC WITH/WITHOUT SPECIMEN BRUSH/WASH, EGD DX WITH BRUSH/WASH Joel Keenan MD [address] [place] [address] [place] [address] Phone: tel: fax: Referral ID Status Reason Start Date Expiration Date Visits Re quested Visits Authorized [id number] Closed 04/19/2020 05/20/2021 1 1 Encounter Details Date Type Department Care Team (Late st Contact Info) Description 04/19/[address] [facility] Multispecialty Care - [address] [place] [address] Joel Keenan MD [address] [place] [address] [address] [place] [address] Social History Tobacco Use Types Packs/Day Years Used Date Smoking Tobacco: Former Cigarettes 1 12 1 615 - 1976 Smokeless Tobacco: Never Alcohol Use [...] file Legal Sex Female 12:43 PM ASSOCIATE SOFTWARE DEVELOPER Gender Identity Female 12/18/2021 6:31 AM [...] Contact Info) Description 10/09/2024 9:30 AM ASSOCIATE SOFTWARE DEVELOPER Office Visit [facility]-[address] [phone] Carlos Farris MD [facility] [address] [place] [address] 11/02/2024 10:20 AM ASSOCIATE SOFTWARE DEVELOPER Office Visit [facility] Family & Internal Medicine - [address] [phone] Sami Liriano DO [address] [place] [address] Scheduled Orders Name Type Priority Associated Diagnoses [...] Depression Total Score: 0 10/29/19 11:04 AM ASSOCIATE SOFTWARE DEVELOPER documented as of this encounter Care Teams Licensed Mental Health Counselor Relationship Specialty Start Date End Date Sami Liriano DO [address] [place] [address] PCP - General FAMILY PRACTICE 12/24/19 documented as of this encounter
--- OUTSIDE RECORDS SUMMARY | 2024-09-19 19:45 | XMS_ITS | Encounter Summary ---
Author Organization [facility] Address [facility]6 [facility]. [place], [place] [address] [place] [address] Care Team Providers Care Wool Batting Worker Name Role Phone Sami Liriano Primary [...] on file Legal Sex Female 12:43 PM PRACTICE CONSULTANT Gender Identity Female 12/18/2021 6:31 AM [...] st Contact Info) Description 10/09/2024 9:30 AM PRACTICE CONSULTANT Office Visit [facility]-[address] [phone] Carlos Farris MD Three [facility] [address] [place] [address] 11/02/2024 10:20 AM PRACTICE CONSULTANT Office Visit [facility] Family & Internal Medicine - [address] [phone] Sami Liriano DO [address] [place] [address] documented as of this encounter Visit Diagnoses Not on filedocumented in this encounter Additional Health Concerns Assessment Noted Time PHQ-9 Depression Total Score: 0 10/29/19 11:04 AM PRACTICE CONSULTANT documented as of this encounter Care Teams Wool Batting Worker Relationship Specialty Start Date End Date Sami Liriano DO [address] [place] [address] PCP - General FAMILY PRACTICE 12/24/19 documented as of this encounter
--- OUTSIDE RECORDS SUMMARY | 2024-09-19 19:45 | XMS_ITS | Encounter Summary ---
Author Organization [facility] Address [facility] [place], [place] [address] [place] [address] Care Team Providers Care Sueding Machine Operator Name Role Phone Sami Liriano Primary Care Provider + Reason for Visit * Auth/Cert Specialty Diagnoses / Procedures Referred By Shereen benton Referred To Contact Diagnoses Pharyngoesophageal dysphagia Positive colorectal cancer screening using Cologuard test dysphagia, positive cologuard Procedures COLONOSCOPY DIAGNOSTIC WITH/WITHOUT SPECIMEN BRUSH/WASH EGD DX WITH BRUSH/WASH Referral ID Status Reason Start Date Expiration Date Visits Re quested Visits Authorized [id number] 1 1 Encounter Details Date Type Department Care Team (Late st Contact Info) Description 04/27/2020 10:50 AM CDT Anesthesia Event [facility] [address] [place] [address] Eliecer Mcginnis CRNA [address] [place] [address] Andra Best CRNA [address] [place] [address] Anesthesia Record Procedure Summary Procedure Name Responsible Anesthesiologist Anesthesia Start Time Anesthesia Stop Time COLONOSCOPY WITH BIOPSY X 3 Eliecer Mcginnis CRNA 04/27/20 1050 04/27/20 1131 Events Date Time Event Comment 04/27/2020 0932 0932 AN SAILOR Prepped 1050 An Start Patient ID and [...] on file Legal Sex Female 12:43 PM STATISTICAL PROGRAMMER ANALYST Gender Identity Female 12/18/2021 6:31 AM [...] st Contact Info) Description 10/09/2024 9:30 AM STATISTICAL PROGRAMMER ANALYST Office Visit [facility]-[address] [phone] Carlos Farris MD Three [facility] [address] [place] [address] 11/02/2024 10:20 AM STATISTICAL PROGRAMMER ANALYST Office Visit [facility] Family & Internal Medicine - [address] [phone] Sami Liriano DO [address] [place] [phone] documented as of this encounter Visit Diagnoses [...] Total Score: 0 10/29/19 20 11:04 AM STATISTICAL PROGRAMMER ANALYST documented as of this encounter Care Teams Sueding Machine Operator Relationship Specialty Start Date End Date Sami Liriano DO NPI: [id number] [place] [address] PCP - General FAMILY PRACTICE 12/24/19 documented as of this encounter
--- OUTSIDE RECORDS SUMMARY | 2024-09-19 19:45 | XMS_ITS | Encounter Summary ---
Author Organization [facility] Address [facility]6 [facility]. [place], [place] [address] [place] [address] Care Team Providers Care Funeral Car Chauffeur Name Role Phone Sami Liriano Primary Care Provider + Reason for Visit * Auth/Cert Specialty Diagnoses / Procedures Referred By Shereen benton Referred To Contact Diagnoses Pharyngoesophageal dysphagia Positive colorectal cancer screening using Cologuard test dysphagia, positive cologuard Procedures COLONOSCOPY DIAGNOSTIC WITH/WITHOUT SPECIMEN BRUSH/WASH EGD DX WITH BRUSH/WASH Referral ID Status Reason Start Date Expiration Date Visits Re quested Visits Authorized [id number] 1 1 Encounter Details Date Type Department Care Team (Latest Contact Info) Description 04/27/2020 8:24 AM CDT - 04/27/2020 12:20 PM CDT Hospital Encounter [facility] [address] [place] [address] Puma Keenan MD [address] [address] Discharge Disposition: Home or Self Care (Routine [...] on file Legal Sex Female 12:43 PM MENTAL HEALTH CONSULTANT Gender Identity Female 12/18/2021 6:31 AM [...] Everywhere. * Upper GI Endoscopy Discharge Instructions (Portuguese) * Colonoscopy Discharge Instructions (Portuguese) * Soft Diet (Portuguese) documented in this encounter Medications at Time [...] during recuperation were discussed with the patient/family/personal roofing sales representative. Reasonable alternatives to the patient's proposed procedure/surgery including benefits, risks, and side effects related to the alternatives and the risks related to not receiving the proposed care were also discussed with the patient/family/personal roofing sales representative. Questions were answered and the patient/family/personal roofing sales representative verbalized understanding and desires to [...] were seen. Bougie dilation Morrison size 54 Mexican used. 11/26/2019+ Cologuard Diagnoses/Impression: Positive colorectal cancer [...] ring with a dilation with a 54 Mexican Morrison on 04/17/2019 which did improve her [...] Plan: ?? Schedule EGD and Colonoscopy at [facility] ?? Suprep split prep ?? It is [...] Denisha Solano RN Anesthesia: Monitor Anesthesia Care DYE HOUSE HELPER: Eliecer Mcginnis CRNA Pre-Op Diagnosis: dysphagia, [...] by one-to-one approximation of. Afterward a 54 Mexican savory dilator was threaded over the wire [...] given symptoms patient was dilated to 54 Mexican Savary dilator. Multiple colon polyps removed. Cecal [...] st Contact Info) Description 10/09/2024 9:30 AM MENTAL HEALTH CONSULTANT Office Visit [facility] [phone] Carlos Farris MD [address] [facility] [address] [place] [address] 11/02/2024 10:20 AM MENTAL HEALTH CONSULTANT Office Visit [facility] Family & Internal Medicine - [address] [phone] Sami Liriano DO [address] [place] [address] documented as of this encounter Procedures Procedure [...] / Unknown 04/27/2020 11:29 AM CDT Narrative [facility] - 04/28/2020 1:27 PM CDT [id number] Date of Service: ??04/27/2020 Preoperative Diagnosis: ??Dysphagia, [...] submitted entirely in block C. CPT Code: ??00283 x3 D: ??04/27/2020 02:52 PM #[id number] T: ??04/27/2020 03:05 PM /NTS A copy of this report has been sent to: LISSETTE Rea PATSY [id number] MICROSCOPIC DIAGNOSIS: I. ??Rectal polyp: - Benign [...] The polyp shows coagulation artifact. ?? Site: ??[facility] ([facility]) D: ??04/28/2020 11:35 AM #[id number] T: ??04/28/2020 12:03 PM /NTS Puma Keenan MD PATHOLOGY/CYTOLOGY ORDERABLES Fi nal Result [facility] [address] [place] [address], documented in this encounter Visit Diagnoses Diagnosis [...] Depression Total Score: 0 10/29/19 11:04 AM MENTAL HEALTH CONSULTANT documented as of this encounter Care Teams Funeral Car Chauffeur Relationship Specialty Start Date End Date Sami Liriano DO [address] [place] [address] PCP - General FAMILY PRACTICE 12/24/19 documented as of this encounter
--- OUTSIDE RECORDS SUMMARY | 2024-09-19 19:45 | XMS_ITS | Encounter Summary ---
Author Organization [facility] Address [facility]6 [facility]. [place], [place] [address] [place] [address] Care Team Providers Care Motion Picture Camera Lens Technician Name Role Phone Sami Liriano DO Primary Care Provider + Reason for Visit * Imaging (Routine) - Closed Specialty Diagnoses / Procedures Referred By Shereen benton Referred To Contact RADIOLOGY Diagnoses Essential hypertension Lower extremity edema Procedures USE ECHOCARDIOGRAM W CON USE ECHOCARDIOGRAM Nathan Sexton APNP [address] [place] [address] Phone: tel: fax: Referral ID Status Reason Start Date Expiration Date Visits Re quested Visits Authorized [id number] Closed 03/03/2020 04/02/2021 1 1 Encounter Details Date Type Department Care Team (Latest Contact Info) Description 04/21/2020 2:00 PM CDT - 04/21/2020 11:59 PM CDT Hospital Encounter [facility] [place] [address] Nathan Sexton APNP [address] [place], [place] [phone] Discharge Disposition: Home or Self Care (Routine [...] file Legal Sex Female 12:43 PM COMPUTER NETWORKING INSTRUCTOR Gender Identity Female 12/18/2021 6:31 AM [...] Contact Info) Description 10/09/2024 9:30 AM COMPUTER NETWORKING INSTRUCTOR Office Visit [facility] [phone] Carlos Farris MD [address] [facility] [address] [place] [address] 11/02/2024 10:20 AM COMPUTER NETWORKING INSTRUCTOR Office Visit [facility] Family & Internal Medicine - [address] [phone] Sami Liriano DO [address] [place], [place] [phone] documented as of this encounter Procedures Procedure Name Priority Date/Time Associated Diagnosis Comments USE ECHOCARDIOGRAM W CON Routine 04/21/2020 4:35 PM CDT Essential hypertension Lower extremity edema documented in this encounter Results * USE ECHOCARDIOGRAM W CON (04/21/2020 4:35 PM CDT) Anatomical Region Laterality Modality NA Echocardiogram 04/21/2020 3:09 PM CDT Narrative 04/21/2020 5:08 PM CDT ?Echocardiography Report Pat.Name: ??HAIR SARGENT ?Pat.ID: ?[id number] ? St.Date: ?? 04/21/2020 ? Refer.MD: ??[id number], NATHAN SEXTON Exam Time: 3:09:00 PM ? Study Type:ECHO WITH CARDIAC DOPPLER COMP Height: ?59in ?Weight: ?253.47lb ? BSA: ? 2.04 m2 ?Age: ??1955,65Y ? Sex: ? FEMALE ?BP: ?128/53 ? HR: ?73 bpm ?Sonogrphr: Siddharth Leigh [facility] ? Pat. Stat.:Outpatient ? Reason for Study: [...] ? Right Ventricle ?28 mm ?? Major Oakley ?62.2 mm ? Signed 04/21/2020 05:08 PM Erik Bowling M.D. Procedure Note Erik Bowling MD - 04/21/2020 Echocardiography Report Pat.Name: DAYAN HAIR L Pat.ID: [id number] .Date: 04/21/2020 Refer.MD: [id number] HOLLY Exam Time: 3:09:00 PM Study Type:ECHO WITH CARDIAC DOPPLER COMP Height: 59in Weight: 253.47lb BSA: 2.04 m2 Age: 5 1955,65Y Sex: FEMALE BP: 128/53 HR: 73 bpm Sonogrphr: Siddharth Leigh [facility] Pat. Stat.:Outpatient Reason for Study: HTN, Lower [...] 30.9 mm Right Ventricle 28 mm Major Oakley 62.2 mm Signed 04/21/2020 05:08 PM Erik [...] Total Score: 0 10/29/19 20 11:04 AM COMPUTER NETWORKING INSTRUCTOR documented as of this encounter Care Teams Motion Picture Camera Lens Technician Relationship Specialty Start Date End Date Sami Liriano DO [address] [place] [address] PCP - General FAMILY PRACTICE 12/24/19 documented as of this encounter
--- OUTSIDE RECORDS SUMMARY | 2024-09-19 19:45 | XMS_ITS | Encounter Summary ---
Author Organization [facility] Address [facility]6 [facility]. [place], [place] [address] [place] [address] Care Team Providers Care Brick Carrier Name Role Phone Sami Liriano Primary Care Provider + Reason for Visit * Auth/Cert Specialty Diagnoses / Procedures Referred By Shereen benton Referred To Contact Diagnoses Pharyngoesophageal dysphagia Positive colorectal cancer screening using Cologuard test dysphagia, positive cologuard Procedures COLONOSCOPY DIAGNOSTIC WITH/WITHOUT SPECIMEN BRUSH/WASH EGD DX WITH BRUSH/WASH Referral ID Status Reason Start Date Expiration Date Visits Re quested Visits Authorized [id number] 1 1 Encounter Details Date Type Department Care Team (Late st Contact Info) Description 04/27/2020 9:49 AM CDT - 04/27/2020 10:42 AM CDT Surgery [facility] [address] [place] [address] Puma Keenan MD [address] [place] [address] COLONOSCOPY WITH BIOPSY X 3 Surgery Details [...] on file Legal Sex Female 12:43 PM USER EXPERIENCE DESIGNER Gender Identity Female 12/18/2021 6:31 AM [...] Everywhere. * Upper GI Endoscopy Discharge Instructions (Mongolian) * Colonoscopy Discharge Instructions (Mongolian) * Soft Diet (Mongolian) documented in this encounter Medications at Time [...] during recuperation were discussed with the patient/family/personal security representative. Reasonable alternatives to the patient's proposed procedure/surgery including benefits, risks, and side effects related to the alternatives and the risks related to not receiving the proposed care were also discussed with the patient/family/personal security representative. Questions were answered and the patient/family/personal security representative verbalized understanding and desires to proceed. [...] were seen. Bougie dilation Morrison size 54 Japanese used. 11/26/2019+ Cologuard Diagnoses/Impression: Positive colorectal cancer [...] ring with a dilation with a 54 Japanese Morrison on 04/17/2019 which did improve her [...] Plan: ?? Schedule EGD and Colonoscopy at [facility] ?? Suprep split prep ?? It is [...] Denisha Solano RN Anesthesia: Monitor Anesthesia Care DEVELOPMENT VICE PRESIDENT: Eliecer Mcginnis CRNA Pre-Op Diagnosis: dysphagia, positive [...] by one-to-one approximation of. Afterward a 54 Japanese savory dilator was threaded over the wire [...] given symptoms patient was dilated to 54 Japanese Savary dilator. Multiple colon polyps removed. Cecal [...] st Contact Info) Description 10/09/2024 9:30 AM USER EXPERIENCE DESIGNER Office Visit [facility]-[address] [phone] Carlos Farris MD [facility] Suite [facility] [place] [address] 11/02/2024 10:20 AM USER EXPERIENCE DESIGNER Office Visit [facility] Family & Internal Medicine [address] [phone] Sami Liriano, [address] [place] [address] documented as of this encounter Procedures Procedure [...] / Unknown 04/27/2020 11:29 AM CDT Narrative [facility] - 04/28/2020 1:27 PM [...] submitted entirely in block C. CPT Code: ??26568 x3 D: ??04/27/2020 02:52 PM #[id number] T: ??04/27/2020 03:05 PM /NTS A copy of this report has been sent to: LISSETTE GARNER [id number]-[id number] MICROSCOPIC DIAGNOSIS: I. ??Rectal polyp: - Benign [...] The polyp shows coagulation artifact. ?? Site: ??[facility] ([facility]) D: ??04/28/2020 11:35 AM #[id number] T: ??04/28/2020 12:03 PM /NTS us Puma Keenan MD PATHOLOGY/CYTOLOGY ORDERABLES Fi nal Result [facility] [address] [place] [address], documented in this encounter Visit Diagnoses Diagnosis [...] Total Score: 0 10/29/19 20 11:04 AM USER EXPERIENCE DESIGNER documented as of this encounter Care Teams Brick Carrier Relationship Specialty Start Date End Date Sami Liriano DO [address] [place] [address] PCP - General FAMILY PRACTICE 12/24/19 documented as of this encounter
--- OUTSIDE RECORDS SUMMARY | 2024-09-19 19:45 | XMS_ITS | Encounter Summary ---
Author Organization [facility] Address [facility]6 [facility]. [place], [place] [address] [place] [address] Care Team Providers Care Sports Internship Name Role Phone Sami Liriano Primary Care Provider + Encounter Details Date Type Department Care Team (Latest Contact Info) Description 04/24/2020 7:05 AM CDT - 04/24/2020 11:59 PM CDT Hospital Encounter [facility] [address] [place] [address] Joel Keenan MD [address] [place], [place] [phone] Discharge Disposition: Home or Self Care (Routine Discharge) Social History Tobacco Use Types Packs/Day Years Used Date Smoking Tobacco: Former Cigarettes 1 12 [id number] Smokeless Tobacco: Never Alcohol Use Standard Drinks/Week [...] file Legal Sex Female 12:43 PM GROUND OPERATIONS SUPERVISOR Gender Identity Female 12/18/2021 6:31 AM [...] st Contact Info) Description 10/09/2024 9:30 AM GROUND OPERATIONS SUPERVISOR Office Visit [facility]-[address] [phone] Carlos Farris MD Three [facility] [address] [place] [address] 11/02/2024 10:20 AM GROUND OPERATIONS SUPERVISOR Office Visit [facility] Family & Internal Medicine - [address] [phone] Sami Liriano, DO [address] [place] [address] documented as of this encounter Procedures Procedure Name Priority Date/Time Associated Diagnosis Comments CORONAVIRUS (COVID 19) Routine 04/24/2020 9:16 AM CDT Preop testing documented in this encounter Results * PRE-SURGICAL/PRE-PROCEDURE CORONAVIRUS (COVID 19) (04/24/2020 9:16 AM CDT) CORONAVIRUS SARS COV 2 PCR (RESP) NOT DETECTED NOT DETECTED 04/25/2020 4:27 PM CDT [facility] Comment: A Not Detected (negative) test result [...] providers and patients using the following websites: https://www.[facility]no.com/home/Covid-19/HCP/NAAT/fact-sheet2 https://www.[employer]/home/Covid-19/Patients/NAAT/ fact-sheet2 This test has been authorized by the FDA under an Emergency Use Authorization (EUA) for use by authorized laboratories. Due to the current public health emergency, [facility] is receiving a high volume of samples [...] about COVID-19 can be found at the [facility] website: www.[employer]/Covid19. Test performed at [facility] [place] [address] [place], [place] ??[address] Director: DEDRA DENG DO,MPH NASOPHARYNGEAL SWAB / Unknown 04/24/2020 9:16 AM CDT us Joel Keenan MD MICROBIOLOGY - GENERAL ORDERABLE S Final Result [facility] [address] [address] documented in this encounter Visit Diagnoses Diagnosis Preop testing Preoperative examination, unspecified documented in this encounter Additional Health Concerns Infection Onset Date Last Indicated Resolved Time COVID-19 Rule Out 04/24/2020 04/24/2020 04/25/2020 4:28 PM CDT Assessment Noted Time PHQ-9 Depression Total Score: 0 10/29/19 20 11:04 AM GROUND OPERATIONS SUPERVISOR documented as of this encounter Care Teams Sports Internship Relationship Specialty Start Date End Date Sami Liriano DO [address] [place], [place] [phone] PCP - General FAMILY PRACTICE 12/24/19 documented as of this encounter
--- OUTSIDE RECORDS SUMMARY | 2024-09-19 19:45 | XMS_ITS | Encounter Summary ---
Author Organization [facility] Address [facility]6 [facility]. [place], [place] [address] [place] [address] Care Team Providers Care Marketing Researcher Name Role Phone Sami Liriano Primary Care Provider + Reason for Visit * Reason Onset Date Comments Question 04/29/2020 Encounter Details Date Type Department Care Team (Late st Contact Info) Description 04/29/2020 Telephone [facility] Multispecialty Care - [facility] 3 [facility] [address] [place] [phone] Joel Keenan MD 3 [facility] [address] [place] [address] Question Social History Tobacco Use Types Packs/Day [...] file Legal Sex Female 12:43 PM MECHANICAL DESIGNER Gender Identity Female 12/18/2021 6:31 AM [...] colonoscopy that was done on 04/27/20 in [place].She is experiencing sharp stabbing pains on her right side below her waist. No fever. Call patient with treatment plan. Patient call back number [phone]. documented in this encounter Plan of Treatment Upcoming Encounters Date Type Department Care Team (Late st Contact Info) Description 10/09/2024 9:30 AM MECHANICAL DESIGNER Office Visit [facility]-[address] [phone] Carlos Farris MD [facility] [address] [place] [address] 11/02/2024 10:20 AM MECHANICAL DESIGNER Office Visit [facility] Family & Internal Medicine - [address] [phone] Sami Liriano DO [address] [place] [address] documented as of this encounter Visit Diagnoses Diagnosis RLQ abdominal pain- Primary Abdominal pain, right lower quadrant documented in this encounter Additional Health Concerns Assessment Noted Time PHQ-9 Depression Total Score: 0 10/29/19 20 11:04 AM MECHANICAL DESIGNER documented as of this encounter Care Teams Marketing Researcher Relationship Specialty Start Date End Date Sami Liriano DO [address] [place] [address] PCP - General FAMILY PRACTICE 12/24/19 documented as of this encounter
--- OUTSIDE RECORDS SUMMARY | 2024-09-19 19:45 | XMS_ITS | Encounter Summary ---
Author Organization [facility] Address [address] [place] [address]. [place], [place] [address] [place] [address] Care Team Providers Care Software Development Advisor Name Role Phone Sami Liriano Primary [...] on file Legal Sex Female 12:43 PM SOUS CHEF Gender Identity Female 12/18/2021 6:31 AM CDT [...] st Contact Info) Description 10/09/2024 9:30 AM SOUS CHEF Office Visit [facility] [phone] Carlos Farris MD Three [facility] [address] [place] [address] 11/02/2024 10:20 AM SOUS CHEF Office Visit [facility] Family & Internal Medicine - [address] [phone] Sami Liriano DO [address] [place] [address] documented as of this encounter Visit Diagnoses Not on filedocumented in this encounter Additional Health Concerns Infection Onset Date Last Indicated Resolved Time COVID-19 Rule Out 04/24/2020 04/24/2020 04/25/2020 4:28 PM CDT Assessment Noted Time PHQ-9 Depression Total Score: 0 10/29/19 11:04 AM SOUS CHEF documented as of this encounter Care Teams Software Development Advisor Relationship Specialty Start Date End Date Sami Liriano DO [address] [place] [address] PCP - General FAMILY PRACTICE 12/24/19 documented as of this encounter
--- OUTSIDE RECORDS SUMMARY | 2024-09-19 19:45 | XMS_ITS | Encounter Summary ---
Author Organization [facility] Address [facility]6 [facility]. [place], [place] [address] [place] [address] Care Team Providers Care Project Associate Name Role Phone Sami Liriano DO Primary [...] Cologuard test Sami Liriano DO [address] [place] [address] Phone: tel: fax: Joel Keenan MD [address] [address] Phone: tel: fax: Referral ID Status Reason Start Date Expiration Date Visits Re quested Visits Authorized [id number] Closed 02/08/2020 09/29/2020 8 8 Encounter Details Date Type Department Care Team (Latest Contact Info) Description 04/15/2020 2:40 PM CDT Office Visit [facility] [address] [phone] Joel Keenan MD [address] [address] Jenn Cortes NP 3 [facility] [address] [place], [place] [phone] Consult For Colonoscopy (no past colonoscopy, had [...] file Legal Sex Female 12:43 PM HOUSING DIRECTOR Gender Identity Female 12/18/2021 6:31 AM [...] were seen. Bougie dilation Morrison size 54 [place] Islander used. 11/26/2019+ Cologuard Diagnoses/Impression: Positive colorectal [...] ring with a dilation with a 54 [place] Islander Morrison on 04/17/2019 which did improve [...] ?? Schedule EGD and Colonoscopy at [facility] ?? Suprep split prep ?? It is [...] Contact Info) Description 10/09/2024 9:30 AM HOUSING DIRECTOR Office Visit [facility]-[address] [phone] Carlos Farris MD [facility] Suite [facility] [place] [address] 11/02/2024 10:20 AM HOUSING DIRECTOR Office Visit [facility] Family & Internal Medicine - [address] [phone] Sami Liriano DO [address] [place] [address] documented as of this encounter Visit Diagnoses Diagnosis Positive colorectal cancer screening using Cologuard test- Primary Pharyngoesophageal dysphagia Dysphagia, pharyngoesophageal phase BRBPR (bright red blood per rectum) Hemorrhage of rectum and anus documented in this encounter Additional Health Concerns Assessment Noted Time PHQ-9 Depression Total Score: 0 10/29/19 11:04 AM HOUSING DIRECTOR documented as of this encounter Care Teams Project Associate Relationship Specialty Start Date End Date Sami Liriano DO [address] [place] [address] PCP - General FAMILY PRACTICE 12/24/19 documented as of this encounter
--- OUTSIDE RECORDS SUMMARY | 2024-09-19 19:46 | XMS_ITS | Encounter Summary ---
Author Organization [facility] Address [facility]6 [facility]. [place], [place] [address] [place] [address] Care Team Providers Care Vehicle Safety Inspector Name Role Phone Sami Liriano Primary Care Provider + Reason for Visit * Reason Onset Date Comments Follow Up Call 03/29/2020 Encounter Details Date Type Department Care Team (Late st Contact Info) Description 03/29/2020 Telephone [facility] Multispecialty Care - [facility] 3 [facility] [address] [place] [phone] Joel Keenan MD 3 [facility] [address] [place] [address] Follow Up Call Social History Tobacco Use [...] on file Legal Sex Female 12:43 PM WINDOW CLEANER Gender Identity Female 12/18/2021 6:31 AM [...] PM CDT Called pt apt rescheduled in [place] * Priyanka Hewitt - 03/29/2020 4:23 PM [...] st Contact Info) Description 10/09/2024 9:30 AM WINDOW CLEANER Office Visit [facility]-[address] [phone] Carlos Farris MD [facility] [address] [place] [address] 11/02/2024 10:20 AM WINDOW CLEANER Office Visit [facility] Family & Internal Medicine - [place] [address] [place] [phone] Sami Liriano DO [address] [place] [address] documented as of this encounter Visit Diagnoses Not on filedocumented in this encounter Additional Health Concerns Assessment Noted Time PHQ-9 Depression Total Score: 0 10/29/19 11:04 AM WINDOW CLEANER documented as of this encounter Care Teams Vehicle Safety Inspector Relationship Specialty Start Date End Date Sami Liriano DO [address] [place] [address] PCP - General FAMILY PRACTICE 12/24/19 documented as of this encounter
--- OUTSIDE RECORDS SUMMARY | 2024-09-19 19:46 | XMS_ITS | Encounter Summary ---
Author Organization [facility] Address [facility]. [place], [place] [address] [place] [address] Care Team Providers Care Director Supply Name Role Phone Sami Gimenez DO Primary Care Provider + Reason for Referral * Consultation (Routine) - Closed Specialty Diagnoses / Procedures Referred By Shereen benton Referred To Contact OPHTHALMOLOGY Diagnoses Floaters in visual field Sami Gimenez DO [address] [place] [address] Phone: tel: fax: Kristopher Austin MD Phone: tel: fax: Referral ID Status Reason Start Date Expiration Date V isits Requested Visits Authorized [id number] Closed Specialty Services 04/22/2020 04/22/2021 6 6 Reason for Visit * Reason Onset Date Comments Referral 04/14/2020 Encounter Details Date Type Department Care Team (Late st Contact Info) Description 04/14/2020 Telephone [facility] Family & Internal Medicine [facility] [address] [place] [address] Sami Gimenez DO [address] [place], [place] [id number] Referral Social History Tobacco Use Types Packs/Day Years Used Date Smoking Tobacco: Former Cigarettes 1 12 958 1976 Smokeless Tobacco: Never Alcohol Use Standard [...] on file Legal Sex Female 12:43 PM PULVI 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 Future appointment scheduled: Future Appointments Date Time Provider Department Center 04/15/2020 2:40 PM Joel Keenan MD MGGIHL [facility] 04/20/2020 11:00 AM Sami Gimenez DO [id number] [facility] 04/21/2020 2:00 PM HAL[facility]A ECHO 1 SEONOIV [facility] 07/28/2020 1:20 PM Joel Keenan MD MGGIOF MG [facility] documented in this encounter Plan of Treatment Upcoming Encounters Date Type Department Care Team (Late st Contact Info) Description 10/09/2024 9:30 AM PULVI MIXER OPERATOR Office Visit [facility] [address] Carlos Farris MD [address] [facility] [address] [place] [address] 11/02/2024 10:20 AM PULVI MIXER OPERATOR Office Visit [facility] Medical Group Family & Internal Medicine - [address] [address] Sami Gimenez DO [facility] [place] [address] Scheduled Referrals Name Type Priority Associated Diagnoses Orde r Schedule Ambulatory Referral to Ophthalmology Referral Routine Floaters in visual field Ordered: 04/15/2020 documented as of this encounter Visit Diagnoses Diagnosis Floaters in visual field- Primary documented in this encounter Additional Health Concerns Assessment Noted Time PHQ-9 Depression Total Score: 0 10/29/19 20 11:04 AM PULVI MIXER OPERATOR documented as of this encounter Care Teams Director Supply Relationship Specialty Start Date End Date Sami Gimenez DO [address] [place] [address] PCP - General FAMILY PRACTICE 12/24/19 documented as of this encounter
--- OUTSIDE RECORDS SUMMARY | 2024-09-19 19:46 | XMS_ITS | Encounter Summary ---
Author Organization [facility] Address [address] [place] [address]. [place], [place] [address] [place] [address] Care Team Providers Care Engineering Professor Name Role Phone Sami Liriano Primary [...] file Legal Sex Female 12:43 PM BUSINESS SYSTEM MANAGER Gender Identity Female 12/18/2021 6:31 AM [...] Contact Info) Description 10/09/2024 9:30 AM BUSINESS SYSTEM MANAGER Office Visit [facility] [address] Carlos Farris MD [facility] [address] [place] [address] 11/02/2024 10:20 AM BUSINESS SYSTEM MANAGER Office Visit [facility] Medical Group Family & Internal Medicine - [address] [address] Sami Liriano DO [address] [place] [address] documented as of this encounter Visit Diagnoses Not on filedocumented in this encounter Additional Health Concerns Assessment Noted Time PHQ-9 Depression Total Score: 0 10/29/19 20 11:04 AM BUSINESS SYSTEM MANAGER documented as of this encounter Care Teams Engineering Professor Relationship Specialty Start Date End Date Sami Liriano DO [address] [place] [address] PCP - General FAMILY PRACTICE 12/24/19 documented as of this encounter
--- OUTSIDE RECORDS SUMMARY | 2024-09-19 19:47 | XMS_ITS | Encounter Summary ---
Author Organization [facility] Address [facility] [place], [place] [address] [place] [address] Care Team Providers Care Flame Channeler Name Role Phone Sami Liriano DO Primary Care Provider + Reason for Referral * Imaging (Emergency) - Closed Specialty Diagnoses / Procedures Referred By Shereen benton Referred To Contact RADIOLOGY Diagnoses Bilateral lower extremity edema Procedures USV COLETTE DUPLEX LOW EXT HAN Barb Sexton APNP [address] [place] [address] Phone: tel: fax: [address] [address] Phone: tel: fax: Referral ID Status Reason Start Date Expiration Date Visits Re quested Visits Authorized [id number] Closed 03/07/2020 04/06/2021 1 1 Reason for Visit * Reason Comments Hypertension Encounter Details Date Type Department Care Team (Late st Contact Info) Description 03/07/2020 11:40 AM CDT Office Visit [facility] Medical Group Family & Internal Medicine - [place] [address] [place] [address] Barb Sexton APNP [address] [place] [address] Hypertension Social History Tobacco Use Types Packs/Day Years Used Date Smoking Tobacco: Former Cigarettes 1 12 787 - 5838 Smokeless Tobacco: Never Alcohol Use Standard Drinks/Week [...] file Legal Sex Female 12:43 PM SUPERVISOR SCREEN MAKING Gender Identity Female 12/18/2021 6:31 AM CDT [...] from the original note were not included. [facility] FAMILY AND INTERNAL MEDICINE OFFICE VISIT Reason [...] Contact Info) Description 10/09/2024 9:30 AM SUPERVISOR SCREEN MAKING Office Visit [facility]-[address] [phone] Carlos Farris MD Three [facility] [address] [place] [address] 11/02/2024 10:20 AM SUPERVISOR SCREEN MAKING Office Visit [facility] Medical Group Family & Internal Medicine - [address] [phone] Sami Liriano DO [address] [place] [address] documented as of this encounter Procedures Procedure [...] Total Score: 0 10/29/19 20 11:04 AM SUPERVISOR SCREEN MAKING documented as of this encounter Care Teams Flame Channeler Relationship Specialty Start Date End Date Sami Liriano DO [address] [place] [address] PCP - General FAMILY PRACTICE 12/24/19 documented as of this encounter
--- OUTSIDE RECORDS SUMMARY | 2024-09-19 19:47 | XMS_ITS | Encounter Summary ---
Author Organization [facility] Address [facility] [place], [place] [address] [place] [address] Care Team Providers Care Grab Operator Name Role Phone Sami Liriano DO Primary Care Provider + Reason for Referral * Consultation (Urgent) - Closed Specialty Diagnoses / Procedures Referred By Shereen t Referred To Contact CARDIOLOGY / Cardiology Diagnoses Essential hypertension Sami Liriano DO [address] [place] [address] Phone: tel: fax: Erik Bowling MD [address] [place] [address] Phone: tel: fax: Referral ID Status Reason Start Date Expiration Date V isits Requested Visits Authorized [id number] Closed Specialty Services 04/11/2020 10/14/2020 6 6 Reason for Visit * Reason Onset Date Comments Referral Request 03/14/2020 Encounter Details Date Type Department Care Team (Late st Contact Info) Description 03/14/2020 Telephone [facility] Medical [facility] Family & Internal Medicine [facility] [address] [place] [address] Sami Liriano DO [address] [place] [address] Referral Request Social History Tobacco Use Types [...] on file Legal Sex Female 12:43 PM ADVERTISEMENT DISTRIBUTOR Gender Identity Female 12/18/2021 6:31 AM CDT [...] st Contact Info) Description 10/09/2024 9:30 AM ADVERTISEMENT DISTRIBUTOR Office Visit [facility]-[address] [phone] Carlos Farris MD [facility] [address] [place] [address] 11/02/2024 10:20 AM ADVERTISEMENT DISTRIBUTOR Office Visit [facility] Medical Group Family & Internal Medicine - [address] [address] Sami Liriano DO [address] [place] [address] Scheduled Referrals Name Type Priority Associated Diagnoses Orde r Schedule Ambulatory referral to Cardiology, Adult (OTHER) Referral Routine Essential hypertension Ordered: 03/14/2020 documented as of this encounter Visit Diagnoses Diagnosis Essential hypertension- Primary Unspecified essential hypertension documented in this encounter Additional Health Concerns Assessment Noted Time PHQ-9 Depression Total Score: 0 10/29/19 20 11:04 AM ADVERTISEMENT DISTRIBUTOR documented as of this encounter Care Teams Grab Operator Relationship Specialty Start Date End Date Sami Liriano DO [address] [place] [address] PCP - General FAMILY PRACTICE 12/24/19 documented as of this encounter
--- OUTSIDE RECORDS SUMMARY | 2024-09-19 19:47 | XMS_ITS | Encounter Summary ---
Author Organization [facility] Address [address] [place] [address]. [place], [place] [address] [place] [address] Care Team Providers Care Web Applications Developer Name Role Phone Sami Liriano Primary [...] on file Legal Sex Female 12:43 PM DEMO SPECIALIST Gender Identity Female 12/18/2021 6:31 AM [...] st Contact Info) Description 10/09/2024 9:30 AM DEMO SPECIALIST Office Visit [facility]-[address] [address] Carlos Farris MD [facility] [address] [place] [address] 11/02/2024 10:20 AM DEMO SPECIALIST Office Visit [facility] Medical Group Family & Internal Medicine - [address] [address] Sami Liriano DO [address] [place] [address] documented as of this encounter Visit Diagnoses Not on filedocumented in this encounter Additional Health Concerns Assessment Noted Time PHQ-9 Depression Total Score: 0 10/29/19 20 11:04 AM DEMO SPECIALIST documented as of this encounter Care Teams Web Applications Developer Relationship Specialty Start Date End Date Sami Liriano DO [address] [place] [address] PCP - General FAMILY PRACTICE 12/24/19 documented as of this encounter
--- OUTSIDE RECORDS SUMMARY | 2024-09-19 19:47 | XMS_ITS | Encounter Summary ---
Author Organization [facility] Address [address] [place] [address]. [place], [place] [address] [place] [address] Care Team Providers Care Automobile Parker Name Role Phone Sami Liriano Primary Care Provider + Reason for Visit * Reason Comments Hypertension Follow Up Encounter Details Date Type Department Care Team (Late st Contact Info) Description 03/11/2020 10:40 AM CDT Office Visit [facility] Medical [facility] Family & Internal Medicine [place] [address] [place] [address] Koki Wilson FNP [address] [place] [address] Hypertension Follow Up Social History Tobacco [...] on file Legal Sex Female 12:43 PM COTTON TIPPER Gender Identity Female 12/18/2021 6:31 AM CDT [...] swelling. She was seen by the other SPINNER OPEN END in this office, ivis and was started [...] file Gets together: Not on file Attends yarsanism service: Not on file Active member of [...] st Contact Info) Description 10/09/2024 9:30 AM COTTON TIPPER Office Visit [facility]-[address] [phone] Carlos Farris MD [facility] [address] [place] [address] 11/02/2024 10:20 AM COTTON TIPPER Office Visit [facility] Medical Group Family & Internal Medicine - [address] [phone] Sami Liriano DO [address] [place] [address] documented as of this encounter Visit Diagnoses Diagnosis Essential hypertension Unspecified essential hypertension Bilateral lower extremity edema Edema documented in this encounter Additional Health Concerns Assessment Noted Time PHQ-9 Depression Total Score: 0 10/29/19 20 11:04 AM COTTON TIPPER documented as of this encounter Care Teams Automobile Parker Relationship Specialty Start Date End Date Sami Liriano DO [address] [place] [address] PCP - General FAMILY PRACTICE 12/24/19 documented as of this encounter
--- OUTSIDE RECORDS SUMMARY | 2024-09-19 19:47 | XMS_ITS | Encounter Summary ---
Author Organization [facility] Address [facility]. [place], [place] [address] [place] [address] Care Team Providers Care Milk Route Deliverer Name Role Phone Sami Liriano Primary Care Provider + Encounter Details Date Type Department Care Team (Latest Contact Info) Description 01/17/2020 4:13 PM CDT - 01/17/2020 11:59 PM CDT Hospital Encounter [facility] [place] [address] Barb Sexton, JENNIFER [address] [place], [place] [phone] Discharge Disposition: Home or Self Care (Routine Discharge) Social History Tobacco Use Types Packs/Day Years Used Date Smoking Tobacco: Former Cigarettes 1 08 30 [id number] Smokeless Tobacco: Never Alcohol Use Standard Drinks/Week [...] on file Legal Sex Female 12:43 PM CNC MILL SET UP OPERATOR Gender Identity Female 12/18/2021 6:31 AM [...] st Contact Info) Description 10/09/2024 9:30 AM CNC MILL SET UP OPERATOR Office Visit [facility]-[address] [address] Carlos Farris MD [facility] [address] [place] [address] 11/02/2024 10:20 AM CNC MILL SET UP OPERATOR Office Visit [facility] Medical Group Family & Internal Medicine - [place] [address] [place] [address] Sami Liriano, [address] [place] [address] documented as of this encounter Procedures Procedure Name Priority Date/Time Associated Diagnosis Comments BASIC METABOLIC PANEL Routine 03/18/2020 11:06 AM CDT Essential hypertension Lower extremity edema documented in this encounter Results * (ABNORMAL) BASIC METABOLIC PANEL (03/18/2020 11:06 AM CDT) GLUCOSE 118(H) 70 - 99 MG/DL 03/21/2020 4:[address] [facility] BUN 19(H) 7 - 18 MG/DL 03/21/2020 4:[address] [facility] CREATININE S/P/B 0.98 0.55 - 1.02 MG/DL 03/21/2020 4:[address] [facility] SODIUM S/P/B 139 136 - 145 MMOL/L 03/21/2020 4:[address] [facility] POTASSIUM S/P/B 4.5 3.5 - 5.1 MMOL/L 03/21/2020 4:[address] [facility] CHLORIDE S/P/B 106 100 - 108 MMOL/L 03/21/2020 4:[address] [facility] CO2 26.7 21 - 32 MMOL/L 03/21/2020 4:[address] [facility] CALCIUM S/P/B 9.2 8.5 - 10.1 MG/DL 03/21/2020 4:[address] [facility] ANION GAP 6.3 5 - 15 MMOL/L 03/21/2020 4:[address] [facility] BUN CREATININE RATIO 19.4 6 - 26 03/21/2020 4:[address] [facility] EGFR NON-AFR. AMER. 60(L) >90 ML/MIN/1.7 3 M2 03/21/2020 4:[address] [facility] EGFR AFR. AMER. 69(L) >90 ML/MIN/1.7 3 M2 03/21/2020 4:[address] [facility] Comment: NOTE: eGFR is not calculated for patients <18 years of age. This is an estimated GFR (CKD EPI) and should not be used for calculating drug doses. 03/18/2020 11:0 6 AM CDT [facility] Final Resul t [facility] [address] [place] [address], documented in this encounter Visit Diagnoses Diagnosis Essential hypertension Unspecified essential hypertension Lower extremity edema Edema documented in this encounter Additional Health Concerns Assessment Noted Time PHQ-9 Depression Total Score: 0 10/29/19 20 11:04 AM CNC MILL SET UP OPERATOR documented as of this encounter Care Teams Milk Route Deliverer Relationship Specialty Start Date End Date Sami Liriano DO [address] [place] [address] PCP - General FAMILY PRACTICE 12/24/19 documented as of this encounter
--- OUTSIDE RECORDS SUMMARY | 2024-09-19 19:47 | XMS_ITS | Encounter Summary ---
Author Organization [facility] Address [address] [place] [address]. [place], [place] [address] [place] [address] Care Team Providers Care Extension Professor Name Role Phone Sami Liriano Primary [...] file Legal Sex Female 12:43 PM HEALTH EDUCATOR Gender Identity Female 12/18/2021 6:31 AM [...] Contact Info) Description 10/09/2024 9:30 AM HEALTH EDUCATOR Office Visit [facility] [address] [place] [address] Carlos Farris MD [facility] [address] [place] [address] 11/02/2024 10:20 AM HEALTH EDUCATOR Office Visit [facility] Medical Group Family & Internal Medicine - [address] [address] Sami Lriiano DO [address] [place] [address] documented as of this encounter Visit Diagnoses Not on filedocumented in this encounter Additional Health Concerns Assessment Noted Time PHQ-9 Depression Total Score: 0 10/29/19 20 11:04 AM HEALTH EDUCATOR documented as of this encounter Care Teams Extension Professor Relationship Specialty Start Date End Date Sami Liriano DO [address] [place] [address] PCP - General FAMILY PRACTICE 12/24/19 documented as of this encounter
--- OUTSIDE RECORDS SUMMARY | 2024-09-19 19:47 | XMS_ITS | Encounter Summary ---
Author Organization [facility] Address [address] [place] [address]. [place], [place] [address] [place] [address] Care Team Providers Care Product Support Manager Name Role Phone Sami Liriano Primary Care Provider + Reason for Visit * Reason Onset Date Comments Appointment Request 03/03/2020 PROCEDURE - ECHO Encounter Details Date Type Department Care Team (Late st Contact Info) Description 03/03/2020 Telephone [facility] [address] Brooke Acosta, TAN Appointment Request (PROCEDURE - [...] on file Legal Sex Female 12:43 PM LOCAL COMPANY INTERMODAL TRUCK DRIVER Gender Identity Female 12/18/2021 6:31 [...] st Contact Info) Description 10/09/2024 9:30 AM LOCAL COMPANY INTERMODAL TRUCK DRIVER Office Visit [facility]-[address] [address] Carlos Farris MD [address] [facility] [address] [facility] [place] [address] 11/02/2024 10:20 AM LOCAL COMPANY INTERMODAL TRUCK DRIVER Office Visit [facility] Medical Group Family & Internal Medicine - [address] [phone] Sami Liriano DO [address] [place] [address] documented as of this encounter Visit Diagnoses Not on filedocumented in this encounter Additional Health Concerns Assessment Noted Time PHQ-9 Depression Total Score: 0 10/29/19 20 11:04 AM LOCAL COMPANY INTERMODAL TRUCK DRIVER documented as of this encounter Care Teams Product Support Manager Relationship Specialty Start Date End Date Sami Liriano DO [address] [place] [address] PCP - General FAMILY PRACTICE 12/24/19 documented as of this encounter
--- OUTSIDE RECORDS SUMMARY | 2024-09-19 19:47 | XMS_ITS | Encounter Summary ---
Author Organization [facility] Address [facility] [place], [place] [address] [place] [address] Care Team Providers Care Appliance Installer Name Role Phone Sami Liriano Primary Care [...] on file Legal Sex Female 12:43 PM SPEEDBOAT DRIVER Gender Identity Female 12/18/2021 6:31 AM CDT Sexual Orientation Straight 01/15/2022 6: 11 AM CDT documented as of this encounter Plan of Treatment Upcoming Encounters Date Type Department Care Team (Late st Contact Info) Description 10/09/2024 9:30 AM SPEEDBOAT DRIVER Office Visit [facility]-[address] [address] Carlos Farris MD [facility] [address] [place] [address] 11/02/2024 10:20 AM SPEEDBOAT DRIVER Office Visit [facility] Medical Group Family & Internal Medicine - [address] [address] Sami Liriano DO [address] [place] [address] documented as of this encounter Visit Diagnoses Not on filedocumented in this encounter Additional Health Concerns Assessment Noted Time PHQ-9 Depression Total Score: 0 10/29/19 11:04 AM SPEEDBOAT DRIVER documented as of this encounter Care Teams Appliance Installer Relationship Specialty Start Date End Date Sami Liriano DO [address] [place] [address] PCP - General FAMILY PRACTICE 10/06/19 12/23/19 documented as of this encounter
--- OUTSIDE RECORDS SUMMARY | 2024-09-19 19:47 | XMS_ITS | Encounter Summary ---
Author Organization [facility] Address [address] [place] [address]. [place], [place] [address] [place] [address] Care Team Providers Care Lottery Manager Name Role Phone Sami Liriano Primary Care Provider + Reason for Visit * Reason Comments Edema 1 week f/u Encounter Details Date Type Department Care Team (Late st Contact Info) Description 03/18/2020 10:20 AM CDT Office Visit [facility] Family & Internal Medicine [id number] [place] [address] Barb Sexton APNP [facility] [place], [place] [phone] Edema (1 week f/u) Social History Tobacco Use Types Packs/Day Years Used Date Smoking Tobacco: Former Cigarettes 1 08 30 [id number] Smokeless Tobacco: Never Alcohol Use Standard Drinks/Week [...] on file Legal Sex Female 12:43 PM LENS POLISHER HAND Gender Identity Female 12/18/2021 6:31 AM [...] from the original note were not included. [facility] FAMILY AND INTERNAL MEDICINE OFFICE VISIT [...] file Gets together: Not on file Attends cheondoism service: Not on file Active member of [...] st Contact Info) Description 10/09/2024 9:30 AM LENS POLISHER HAND Office Visit [facility] [address] Carlos Farris MD [address] [facility] [address] [place] [address] 11/02/2024 10:20 AM LENS POLISHER HAND Office Visit [facility] Family & Internal Medicine [facility] [address] [place] [address] Sami Liriano DO [address] [place] [address] documented as of this encounter Procedures Procedure Name Priority Date/Time Associated Diagnosis Comments VENIPUNC ARM DRAW Routine 03/18/2020 11:06 AM CDT Essential hypertension Lower extremity edema documented in this encounter Results * TSH W/REFLEX (03/18/2020 11:06 AM CDT) TSH 1.770 0.358 - 3.74 uIU/ML 03/18/2020 8:54 PM CDT [facility] Comment: HIGH DOSES OF BIOTIN MAY INTERFERE WITH THIS TEST RESULT. CORRELATION TO CLINICAL HISTORY AND PRESENTATION RECOMMENDED. FREE T4 NOT INDICATED 03/18/2020 11:0 6 AM CDT [facility] Final Resul t [facility] [address] [place] [address], * (ABNORMAL) BASIC METABOLIC PANEL (03/18/2020 11:06 AM CDT) GLUCOSE 118(H) 70 - 99 MG/DL 03/21/2020 4:47 PM CDT [facility] BUN 19(H) 7 - 18 MG/DL 03/21/2020 4:47 PM CDT [facility] CREATININE S/P/B 0.98 0.55 - 1.02 MG/DL 03/21/2020 4:47 PM CDT [facility] SODIUM S/P/B 139 136 - 145 MMOL/L 03/21/2020 4:47 PM CDT [facility] POTASSIUM S/P/B 4.5 3.5 - 5.1 MMOL/L 03/21/2020 4:47 PM CDT [facility] CHLORIDE S/P/B 106 100 - 108 MMOL/L 03/21/2020 4:47 PM CDT [facility] CO2 26.7 21 - 32 MMOL/L 03/21/2020 4:47 PM CDT [facility] CALCIUM S/P/B 9.2 8.5 - 10.1 MG/DL 03/21/2020 4:47 PM CDT [facility] ANION GAP 6.3 5 - 15 MMOL/L 03/21/2020 4:47 PM CDT [facility] BUN CREATININE RATIO 19.4 6 - 26 03/21/2020 4:47 PM CDT [facility] EGFR NON-AFR. AMER. 60(L) >90 ML/MIN/1.7 3 M2 03/21/2020 4:47 PM CDT [facility] EGFR AFR. AMER. 69(L) >90 ML/MIN/1.7 3 M2 03/21/2020 4:47 PM CDT [facility] Comment: NOTE: eGFR is not calculated for patients <18 years of age. This is an estimated GFR (CKD EPI) and should not be used for calculating drug doses. 03/18/2020 11:0 6 AM CDT us Barb [facility] Final Resul t [facility] [address] [place] [address], [place] [phone] documented in this encounter Visit Diagnoses Diagnosis Essential hypertension- Primary Unspecified essential hypertension Lower extremity edema Edema documented in this encounter Additional Health Concerns Assessment Noted Time PHQ-9 Depression Total Score: 0 10/29/19 20 11:04 AM LENS POLISHER HAND documented as of this encounter Care Teams Lottery Manager Relationship Specialty Start Date End Date Sami Liriano DO [address] [place] [address] PCP - General FAMILY PRACTICE 12/24/19 documented as of this encounter
--- OUTSIDE RECORDS SUMMARY | 2024-09-19 19:47 | XMS_ITS | Encounter Summary ---
Author Organization [facility] Address [facility]. [place], [place] [address] [place] [address] Care Team Providers Care Barrel Scraper Name Role Phone Sami Liriano Primary Care Provider + Encounter Details Date Type Department Care Team (Latest Contact Info) Description 03/03/2020 6:16 PM CDT - 03/03/2020 11:59 PM CDT Hospital Encounter [facility] [place] [address] Barb Sexton, JENNIFER [address] [place], [place] [phone] Discharge Disposition: Home or Self Care (Routine Discharge) Social History Tobacco Use Types Packs/Day Years Used Date Smoking Tobacco: Former Cigarettes 1 08 30 [id number] Smokeless Tobacco: Never Alcohol Use Standard Drinks/Week [...] on file Legal Sex Female 12:43 PM 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 [address] [place] [address] 11/02/2024 10:20 AM MALT LIQUORS SALES SUPERVISOR Office Visit [facility] Family & Internal Medicine - [address] [place] [phone] Sami Liriano, [address] [place] [address] documented as of this encounter Procedures Procedure [...] URINE CLEAN CATCH 03/03/2020 11:35 PM CDT [facility] SPECIAL REQUESTS NO SPECIAL REQUEST 03/03/2020 11:35 PM CDT [facility] CULTURE RESULT POLYMICROBIAL GROWTH CONSISTENT WITH NORMAL GENITAL LANIE. ?? SUSCEPTIBILITIES NOT ROUTINELY PERFORMED. 03/05/2020 10:42 AM CDT [facility] URINE SPECIMEN OBTAINED BY CLEAN CATCH PROCEDURE / Unknown 03/03/2020 11:51 AM CDT 03/03/2020 11:35 PM CDT us Barb [facility] - GENERAL NICK VITALE Final Result [facility] 3 [place] [address], * (ABNORMAL) COMPREHENSIVE METABOLIC PANEL (03/03/2020 11:51 AM CDT) [facility] GLUCOSE 104(H) 70 - 99 MG/DL 03/03/2020 9:39 PM CDT [facility] BUN 17 7 - 18 MG/DL 03/03/2020 9:39 PM CDT [facility] CREATININE S/P/B 0.93 0.55 - 1.02 MG/DL 03/03/2020 9:39 PM CDT [facility] SODIUM S/P/B 137 136 - 145 MMOL/L 03/03/2020 9:39 PM CDT [facility] POTASSIUM S/P/B 4.1 3.5 - 5.1 MMOL/L 03/03/2020 9:39 PM CDT [facility] CHLORIDE S/P/B 102 100 - 108 MMOL/L 03/03/2020 9:39 PM CDT [facility] CO2 27.4 21 - 32 MMOL/L 03/03/2020 9:39 PM CDT [facility] CALCIUM S/P/B 9.5 8.5 - 10.1 MG/DL 03/03/2020 9:39 PM CDT [facility] BILIRUBIN TOTAL S/P/B 1.7(H) 0.2 - 1.2 MG/DL 03/03/2020 9:39 PM CDT [facility] Comment: THIS ASSAY IS NOT RECOMMENDED FOR PATIENTS UNDERGOING TREATMENT WITH ELTROMBOPAG DUE TO THE POTENTIAL FOR FALSELY ELEVATED RESULTS. TOTAL PROTEIN S/P/B 7.9 6.4 - 8.2 G/DL 03/03/2020 9:39 PM CDT [facility] ALBUMIN S/P/B 4.1 3.4 - 5.0 G/DL 03/03/2020 9:39 PM CDT [facility] AST 18 15 - 37 U/L 03/03/2020 9:39 PM CDT [facility] ALT 24 14 - 55 U/L 03/03/2020 9:39 PM CDT [facility] ALKALINE PHOSPHATASE S/P/B 102 50 - 136 U/L 03/03/2020 9:39 PM CDT [facility] ANION GAP 7.6 5 - 15 MMOL/L 03/03/2020 9:39 PM CDT [facility] BUN CREATININE RATIO 18.2 6 - 26 03/03/2020 9:39 PM CDT [facility] A/G RATIO 1.1 1.0 - 2.0 RATIO 03/03/2020 9:39 PM CDT [facility] EGFR NON-AFR. AMER. 64(L) >90 ML/MIN/1.7 3 M2 03/03/2020 9:39 PM CDT [facility] EGFR AFR. AMER. 74(L) >90 ML/MIN/1.7 3 M2 03/03/2020 9:39 PM T [facility] Comment: NOTE: eGFR is not calculated for patients <18 years of age. This is an estimated GFR (CKD EPI) and should not be used for calculating drug doses. 03/03/2020 11:5 1 AM CDT Barb [facility] Final Resul t [facility] [address] [place] [address], [place] [phone] * (ABNORMAL) CBC W/DIFF AUTOMATED (03/03/2020 11:51 AM CDT) WBC 10.6 4.5 - 11.0 x10'3/uL 03/03/2020 9:17 PM CDT [facility] RBC 4.77 4.20 - 5.40 x10'6/uL 03/03/2020 9:17 PM CDT [facility] HGB 13.1 12.0 - 16.0 G/DL 03/03/2020 9:17 PM CDT [facility] HCT 42.3 38.0 - 48.0 % 03/03/2020 9:17 PM CDT [facility] MCV 88.7 80.0 - 94.0 FL 03/03/2020 9:17 PM CDT [facility] MCH 27.5 27.0 - 31.0 PG 03/03/2020 9:17 PM CDT [facility] MCHC 31.0(L) 32.0 - 36.0 G/DL 03/03/2020 9:17 PM CDT [facility] RDW 14.6(H) 11.5 - 14.5 % 03/03/2020 9:17 PM CDT [facility] PLT 244 130 - 400 x10'3/uL 03/03/2020 9:17 PM CDT [facility] MPV 10.7 9.3 - 12.2 FL 03/03/2020 9:17 PM CDT [facility] DIFFERENTIAL TYPE AUTOMATED DIFFERENTIAL 03/03/2020 9:17 PM CDT [facility] NEUTROPHILS % 63.9 % 03/03/2020 9:17 PM CDT [facility] LYMPHOCYTES % 26.7 % 03/03/2020 9:17 PM CDT [facility] MONOCYTES % 7.4 % 03/03/2020 9:17 PM CDT [facility] EOSINOPHILS 1.1 % 03/03/2020 9:17 PM CDT [facility] BASOPHILS 0.7 % 03/03/2020 9:17 PM CDT [facility] IMMATURE GRANS % 0.2 % 03/03/20 20 9:17 PM CDT [facility] ABS. NEUTROPHILS TOTAL 6.78 1.80 - 7.70 x10'3/uL 03/03/2020 9:17 PM CDT [facility] ABS. LYMPHOCYTES 2.83 1.00 - 4.80 x10'3/uL 03/03/2020 9:17 PM CDT [facility] ABS. MONOCYTES 0.79 0.24 - 0.86 x10'3/uL 03/03/2020 9:17 PM CDT [facility] ABS. EOSINOPHILS 0.12 0.04 - 0.36 x10'3/uL 03/03/2020 9:17 PM CDT [facility] ABS. BASOPHILS 0.07 0.01 - 0.08 x10'3/uL 03/03/2020 9:17 PM CDT [facility] ABS. IMMATURE GRANULOCYTES 0.02 0.00 - 0.49 x10'3/uL 03/03/2020 9:17 PM CDT [facility] 03/03/2020 11:5 1 AM CDT Barb [facility] Final Resul t [facility] [address] [place] [address], [place] [phone] * (ABNORMAL) URINALYSIS WI REFLEX TO CULTURE (03/03/2020 11:51 AM CDT) SPECIMEN TYPE URINE CLEAN CATCH 03/03/2020 6:17 PM CDT [facility] COLOR (U) LIGHT YELLOW 03/03/2020 11:15 PM CDT [facility] TRANSPARENCY CLEAR 03/03/2020 11:15 PM [facility] SPECIFIC GRAVITY (U) 1.014 1.001 - 1.030 03/03/2020 11:15 PM [facility] U PH 7.0 5.0 - 9.0 03/03/2020 11:15 PM [facility] LEUKOCYTES (U) 75(A) NEGATIVE 03/03/2020 11:15 PM T [facility] NITRITES NEGATIVE NEGATIVE 03/03/2020 11:15 PM [facility] PROTEIN (U) NEGATIVE <30 MG/DL 03/03/2020 11:15 PM T [facility] URINE GLUCOSE NORMAL NORMAL MG/DL 03/03/2020 11:15 PM [facility] KETONES MG/DL (U) NEGATIVE NEGATIVE MG/DL 03/03/2020 11:15 PM [facility] UROBILINOGEN NORMAL NORMAL MG/DL 03/03/2020 11:15 PM T [facility] BILIRUBIN (U) NEGATIVE NEGATIVE MG/DL 03/03/2020 11:15 PM [facility] BLOOD (U) NEGATIVE NEGATIVE 03/03/2020 11:15 PM [facility] CULTURE & SENSITIVITY INDICATED? SPECIMEN SETUP FOR CULTURE 03/03/2020 11:15 PM T [facility] MUCUS RARE /LPF 03/03/2020 11:15 PM [facility] WBC/HPF 2 <6 /HPF 03/03/2020 11:15 PM [facility] RBC/HPF <1 <6 /HPF 03/03/2020 11:15 PM [facility] SQUAMOUS EPITHELIALS RARE /HPF 03/03/2020 11:15 PM T [facility] URINE SPECIMEN OBTAINED BY CLEAN CATCH PROCEDURE / Unknown 03/03/2020 11:51 AM CDT Barb Melissa Carlie R[facility] URINE ORDERABLES Edited Res ult - Final [facility] [address] [place] [address], [place] [phone] [facility] [address] [place] [address], documented in this encounter Visit Diagnoses Diagnosis Lower extremity edema Edema documented in this encounter Additional Health Concerns Assessment Noted Time PHQ-9 Depression Total Score: 0 10/29/19 20 11:04 AM MALT LIQUORS SALES SUPERVISOR documented as of this encounter Care Teams Barrel Scraper Relationship Specialty Start Date End Date Sami Liriano DO [address] [place] [address] PCP - General FAMILY PRACTICE 12/24/19 documented as of this encounter
--- OUTSIDE RECORDS SUMMARY | 2024-09-19 19:47 | XMS_ITS | Encounter Summary ---
Author Organization [facility] Address [address] [place] [address]. [place], [place] [address] [place] [address] Care Team Providers Care Tower Erector Name Role Phone Sami Liriano Primary [...] on file Legal Sex Female 12:43 PM NUT CULLER Gender Identity Female 12/18/2021 6:31 AM CDT [...] st Contact Info) Description 10/09/2024 9:30 AM NUT CULLER Office Visit [facility] [address] Carlos Farris MD [facility] [address] [place] [address] 11/02/2024 10:20 AM NUT CULLER Office Visit [facility] Family & Internal Medicine - [address] [address] Sami Liriano DO [address] [place] [address] documented as of this encounter Visit Diagnoses Not on filedocumented in this encounter Additional Health Concerns Assessment Noted Time PHQ-9 Depression Total Score: 0 10/29/19 20 11:04 AM NUT CULLER documented as of this encounter Care Teams Tower Erector Relationship Specialty Start Date End Date Sami Liriano DO [address] [place] [address] PCP - General FAMILY PRACTICE 12/24/19 documented as of this encounter
--- OUTSIDE RECORDS SUMMARY | 2024-09-19 19:47 | XMS_ITS | Encounter Summary ---
Author Organization [facility] Address [facility]. [place], [place] [address] [place] [address] Care Team Providers Care Rn Hyperbaric Name Role Phone Sami Liriano DO Primary Care Provider + Reason for Referral * Consultation (Urgent) - Closed Specialty Diagnoses / Procedures Referred By Shereen benton Referred To Contact [facility] Diagnoses Degenerative arthritis of left knee Sami Liriano DO [address] [place] [address] Phone: tel: fax: Breezy Newberry MD Phone: tel: fax: Referral ID Status Reason Start Date Expiration Date V isits Requested Visits Authorized [id number] Closed Specialty Services 02/15/2020 03/17/2021 1 1 Reason for Visit * Reason Onset Date Comments Referral 02/15/2020 Encounter Details Date Type Department Care Team (Late st Contact Info) Description 02/15/2020 Telephone [facility] Family & Internal Medicine [facility] [address] [place] [address] Sami Liriano DO [address] [place] [address] Referral Social History Tobacco Use [...] file Legal 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 Gender Identity Female 12/18/2021 6:31 AM CDT Sexual Orientation Straight 01/15/2022 6: 11 AM CDT documented as of this encounter Plan of Treatment Upcoming Encounters Date Type Department Care Team (Late st Contact Info) Description 10/09/2024 9:30 AM DIRECTOR MEDICAL AFFAIRS Office Visit [facility] [address] Carlos Farris MD [facility] [address] [place] [address] 11/02/2024 10:20 AM DIRECTOR MEDICAL AFFAIRS Office Visit [facility] Family & Internal Medicine - [address] [address] Sami Liriano DO [address] [place] [address] Scheduled Referrals Name Type Priority Associated Diagnoses [...] Total Score: 0 10/29/19 20 11:04 AM DIRECTOR MEDICAL AFFAIRS documented as of this encounter Care Teams Rn Hyperbaric Relationship Specialty Start Date End Date Sami Liriano DO NPI: [id number] [place] [address] PCP - General FAMILY PRACTICE 12/24/19 documented as of this encounter
--- OUTSIDE RECORDS SUMMARY | 2024-09-19 19:47 | XMS_ITS | Encounter Summary ---
Author Organization [facility] Address [facility] 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 Please call Mirta at [phone] Mirta states for the most part she has remained home--has been out to [place] and [place]. Denies any known exposure to strep, influenza/flu [...] st Contact Info) Description 10/09/2024 9:30 AM SILO OPERATOR Office Visit [facility]-[address] [address] Carlos Farris MD [facility] [address] [place] [address] 11/02/2024 10:20 AM SILO OPERATOR Office Visit [facility] Family & Internal Medicine - [place] [address] [place] [address] Sami Liriano DO [address] [place] [address] documented as of this encounter Visit Diagnoses Not on filedocumented in this encounter Additional Health Concerns Assessment Noted Time PHQ-9 Depression Total Score: 0 10/29/19 20 11:04 AM SILO OPERATOR documented as of this encounter Care Teams Turret Punch Operator Relationship Specialty Start Date End Date Sami Liriano DO [address] [place] [address] PCP - General FAMILY PRACTICE 12/24/19 documented as of this encounter"
--- OUTSIDE RECORDS SUMMARY | 2024-09-19 19:47 | XMS_ITS | Encounter Summary ---
Author Organization [facility] Address [facility] [place], [place] [address] [place] [address] Care Team Providers Care Order Tracer Name Role Phone Sami Liriano Primary Care Provider + Encounter Details Date Type Department Care Team (Latest Contact Info) Description 03/18/2020 7:19 PM CDT - 03/18/2020 11:59 PM CDT Hospital Encounter [facility] [place] [address] Barb Sexton, JENNIFER [address] [place], [place] [phone] Discharge Disposition: Home or Self Care (Routine Discharge) Social History Tobacco Use Types Packs/Day Years Used Date Smoking Tobacco: Former Cigarettes 1 08 30 [id number] Smokeless Tobacco: Never Alcohol Use Standard Drinks/Week [...] on file Legal Sex Female 12:43 PM BURLAP ROLL COVERER Gender Identity Female 12/18/2021 6:31 AM CDT [...] st Contact Info) Description 10/09/2024 9:30 AM BURLAP ROLL COVERER Office Visit [facility]-[address] [phone] Carlos Farris MD [address] [facility] [address] [place] [address] 11/02/2024 10:20 AM BURLAP ROLL COVERER Office Visit [facility] Family & Internal Medicine - [address] [address] Sami Liriano DO [address] [place] [address] documented as of this encounter Procedures Procedure Name Priority Date/Time Associated Diagnosis Comments TSH W/REFLEX Routine 03/18/2020 11:06 AM CDT Essential hypertension Lower extremity edema documented in this encounter Results * TSH W/REFLEX (03/18/2020 11:06 AM CDT) TSH 1.770 0.358 - 3.74 uIU/ML 03/18/2020 8:54 PM CDT [facility] Comment: HIGH DOSES OF BIOTIN MAY INTERFERE WITH THIS TEST RESULT. CORRELATION TO CLINICAL HISTORY AND PRESENTATION RECOMMENDED. FREE T4 NOT INDICATED 03/18/2020 11:0 6 AM CDT us [facility] Final Resul t [facility] 3 [facility] [place] [address], [place] [phone] documented in this encounter Visit Diagnoses Diagnosis Essential hypertension Unspecified essential hypertension Lower extremity edema Edema documented in this encounter Additional Health Concerns Assessment Noted Time PHQ-9 Depression Total Score: 0 10/29/19 11:04 AM BURLAP ROLL COVERER documented as of this encounter Care Teams Order Tracer Relationship Specialty Start Date End Date Sami Liriano DO [address] [place] [address] PCP - General FAMILY PRACTICE 12/24/19 documented as of this encounter
--- OUTSIDE RECORDS SUMMARY | 2024-09-19 19:47 | XMS_ITS | Encounter Summary ---
Author Organization [facility] Address [address] [place] [address]. [place], [place] [address] [place] [address] Care Team Providers Care Legal Editor Name Role Phone Sami Liriano Primary Care Provider + Reason for Visit * Reason Comments Swelling Encounter Details Date Type Department Care Team (Late st Contact Info) Description 03/03/2020 10:40 AM CDT Office Visit [facility] Family & Internal Medicine [facility] [address] [place] [address] Barb Sexton APNP [facility] [place] [address] Swelling Social History Tobacco Use [...] file Legal Sex Female 12:43 PM AUTOMOBILE SERVICE STATION MECHANIC Gender Identity Female 12/18/2021 6:31 AM [...] from the original note were not included. [facility] FAMILY AND INTERNAL MEDICINE OFFICE VISIT Reason for Visit: Swelling History of Present Illness: 65 yo female is here today with PMH of HTN, GERD, left knee osteoarthritis and depression is here today with c/o water retention and extremity edema. She notes that water retention/edema first started about 10 days ago while she was traveling to [place].She notes swelling in both her upper and lower extremities. Throughout her vacation in [place], symptomscontinued to worsen. She is treated for HTN with lisinopril and HCTZ. She has tried to avoid salt and increase her water intake over the last week. She does note she ateout at restaurants several times throughout her stay in [place]. She has some SOB----but states this is [...] file Gets together: Not on file Attends [employer] service: Not on file Active member of [...] ??? hydroCHLOROthiazide 25 MG tablet ? ? 09650 - EKG (In Clinic Complete- tracing, interp & report) Cannot display discharge medications since this is not an admission. PCP: JENNIFER Davila 03/03/2020 Cosigned by Rubio Thomas MD at 03/04/2020 3:14 PM CDT documented in this encounter Plan of Treatment Upcoming Encounters Date Type Department Care Team (Late st Contact Info) Description 10/09/2024 9:30 AM AUTOMOBILE SERVICE STATION MECHANIC Office Visit [facility] [address] Carlos Farris MD [facility] [address] [place] [address] 11/02/2024 10:20 AM AUTOMOBILE SERVICE STATION MECHANIC Office Visit [facility] Family & Internal Medicine - [address] [phone] Sami Liriano DO [address] [place] [address] documented as of this encounter Procedures Procedure [...] URINE CLEAN CATCH 03/03/2020 6:17 PM CDT [facility] COLOR (U) LIGHT YELLOW 03/03/2020 11:15 PM CDT [facility] TRANSPARENCY CLEAR 03/03/2020 11:15 PM T [facility] SPECIFIC GRAVITY (U) 1.014 1.001 - 1.030 03/03/2020 11:15 PM T [facility] U PH 7.0 5.0 - 9.0 03/03/2020 11:15 PM T [facility] LEUKOCYTES (U) 75(A) NEGATIVE 03/03/2020 11:15 PM CDT [facility] NITRITES NEGATIVE NEGATIVE 03/03/2020 11:15 PM T [facility] PROTEIN (U) NEGATIVE <30 MG/DL 03/03/2020 11:15 PM T [facility] URINE GLUCOSE NORMAL NORMAL MG/DL 03/03/2020 11:15 PM T [facility] KETONES MG/DL (U) NEGATIVE NEGATIVE MG/DL 03/03/2020 11:15 PM T [facility] UROBILINOGEN NORMAL NORMAL MG/DL 03/03/2020 11:15 PM T [facility] BILIRUBIN (U) NEGATIVE NEGATIVE MG/DL 03/03/2020 11:15 PM T [facility] BLOOD (U) NEGATIVE NEGATIVE 03/03/2020 11:15 PM [facility] CULTURE & SENSITIVITY INDICATED? SPECIMEN SETUP FOR CULTURE 03/03/2020 11:15 PM T [facility] MUCUS RARE /LPF 03/03/2020 11:15 PM T [facility] WBC/HPF 2 <6 /HPF 03/03/2020 11:15 PM T [facility] RBC/HPF <1 <6 /HPF 03/03/2020 11:15 PM T [facility] SQUAMOUS EPITHELIALS RARE /HPF 03/03/2020 11:15 PM T [facility] URINE SPECIMEN OBTAINED BY CLEAN CATCH PROCEDURE / Unknown 03/03/2020 11:51 AM CDT Barb RODRIGUEZ URINE ORDERABLES Edited Res ult - Final [facility] [address] [place] [address], [place] [phone] [facility] [address] [place] [address], [place] [phone] * (ABNORMAL) COMPREHENSIVE METABOLIC PANEL (03/03/2020 11:51 AM CDT) GLUCOSE 104(H) 70 - 99 MG/DL 03/03/2020 9:39 PM CDT [facility] BUN 17 7 - 18 MG/DL 03/03/2020 9:39 PM CDT [facility] CREATININE S/P/B 0.93 0.55 - 1.02 MG/DL 03/03/2020 9:39 PM CDT [facility] SODIUM S/P/B 137 136 - 145 MMOL/L 03/03/2020 9:39 PM CDT [facility] POTASSIUM S/P/B 4.1 3.5 - 5.1 MMOL/L 03/03/2020 9:39 PM CDT [facility] CHLORIDE S/P/B 102 100 - 108 MMOL/L 03/03/2020 9:39 PM CDT [facility] CO2 27.4 21 - 32 MMOL/L 03/03/2020 9:39 PM CDT [facility] CALCIUM S/P/B 9.5 8.5 - 10.1 MG/DL 03/03/2020 9:39 PM CDT [facility] BILIRUBIN TOTAL S/P/B 1.7(H) 0.2 - 1.2 MG/DL 03/03/2020 9:39 PM [facility] Comment: THIS ASSAY IS NOT RECOMMENDED FOR PATIENTS UNDERGOING TREATMENT WITH ELTROMBOPAG DUE TO THE POTENTIAL FOR FALSELY ELEVATED RESULTS. TOTAL PROTEIN S/P/B 7.9 6.4 - 8.2 G/DL 03/03/2020 9:39 PM [facility] ALBUMIN S/P/B 4.1 3.4 - 5.0 G/DL 03/03/2020 9:39 PM T [facility] AST 18 15 - 37 U/L 03/03/2020 9:39 PM [facility] ALT 24 14 - 55 U/L 03/03/2020 9:39 PM [facility] ALKALINE PHOSPHATASE S/P/B 102 50 - 136 U/L 03/03/2020 9:39 PM [facility] ANION GAP 7.6 5 - 15 MMOL/L 03/03/2020 9:39 PM [facility] BUN CREATININE RATIO 18.2 6 - 26 03/03/2020 9:39 PM [facility] A/G RATIO 1.1 1.0 - 2.0 RATIO 03/03/2020 9:39 PM [facility] EGFR NON-AFR. AMER. 64(L) >90 ML/MIN/1.7 3 M2 03/03/2020 9:39 PM [facility] EGFR AFR. AMER. 74(L) >90 ML/MIN/1.7 3 M2 03/03/2020 9:39 PM [facility] Comment: NOTE: eGFR is not calculated for patients <18 years of age. This is an estimated GFR (CKD EPI) and should not be used for calculating drug doses. 03/03/2020 11:5 1 AM CDT us Barb Sexton [facility] Final Resul t [facility] [address] [place] [address], [place] [phone] * (ABNORMAL) CBC W/DIFF AUTOMATED (03/03/2020 11:51 AM CDT) [facility] WBC 10.6 4.5 - 11.0 x10'3/uL 03/03/2020 9:17 PM CDT [facility] RBC 4.77 4.20 - 5.40 x10'6/uL 03/03/2020 9:17 PM CDT [facility] HGB 13.1 12.0 - 16.0 G/DL 03/03/2020 9:17 PM CDT [facility] HCT 42.3 38.0 - 48.0 % 03/03/2020 9:17 PM CDT [facility] MCV 88.7 80.0 - 94.0 FL 03/03/2020 9:17 PM CDT [facility] MCH 27.5 27.0 - 31.0 PG 03/03/2020 9:17 PM CDT [facility] MCHC 31.0(L) 32.0 - 36.0 G/DL 03/03/2020 9:17 PM CDT [facility] RDW 14.6(H) 11.5 - 14.5 % 03/03/2020 9:17 PM CDT [facility] PLT 244 130 - 400 x10'3/uL 03/03/2020 9:17 PM CDT [facility] MPV 10.7 9.3 - 12.2 FL 03/03/2020 9:17 PM CDT [facility] DIFFERENTIAL TYPE AUTOMATED DIFFERENTIAL 03/03/2020 9:17 PM CDT [facility] NEUTROPHILS % 63.9 % 03/03/2020 9:17 PM CDT [facility] LYMPHOCYTES % 26.7 % 03/03/2020 9:17 PM CDT [facility] MONOCYTES % 7.4 % 03/03/2020 9:17 PM CDT [facility] EOSINOPHILS 1.1 % 03/03/2020 9:17 PM CDT [facility] BASOPHILS 0.7 % 03/03/2020 9:17 PM CDT [facility] IMMATURE GRANS % 0.2 % 03/03/20 9:17 PM CDT [facility] ABS. NEUTROPHILS TOTAL 6.78 1.80 - 7.70 x10'3/uL 03/03/2020 9:17 PM CDT [facility] ABS. LYMPHOCYTES 2.83 1.00 - 4.80 x10'3/uL 03/03/2020 9:17 PM CDT [facility] ABS. MONOCYTES 0.79 0.24 - 0.86 x10'3/uL 03/03/2020 9:17 PM CDT [facility] ABS. EOSINOPHILS 0.12 0.04 - 0.36 x10'3/uL 03/03/2020 9:17 PM CDT [facility] ABS. BASOPHILS 0.07 0.01 - 0.08 x10'3/uL 03/03/2020 9:17 PM CDT [facility] ABS. IMMATURE GRANULOCYTES 0.02 0.00 - 0.49 x10'3/uL 03/03/2020 9:17 PM CDT [facility] 03/03/2020 11:5 1 AM CDT us Barb [facility] Final Resul t [facility] [address] [place] [address], * [id number] - EKG (In Clinic Complete- tracing, interp & report) (03/03/2020 11:08 AM CDT) 03/03/2020 11:0 8 AM CDT Barb RODRIGUEZ PROCEDURES-RESULTABLE Final Result * ECG Review/Interpret Only (03/03/2020 10:40 AM CDT) Narrative Rubio Thomas MD - 03/03/2020 10:40 AM CDT JENNIFER Davila ? 03/03/2020 12:28 PM ECG Review/Interpret Only Date/Time: 03/03/2020 12:27 PM Performed by: JENNIFER Davila Authorized by: JENNFIER Davila Rhythm: sinus rhythm Rate: normal QRS [...] Total Score: 0 10/29/19 20 11:04 AM AUTOMOBILE SERVICE STATION MECHANIC documented as of this encounter Care Teams Legal Editor Relationship Specialty Start Date End Date Sami Liriano DO [address] [place] [address] PCP - General FAMILY PRACTICE 12/24/19 documented as of this encounter
--- OUTSIDE RECORDS SUMMARY | 2024-09-19 19:47 | XMS_ITS | Encounter Summary ---
Author Organization [facility] Address [address] [place] [address]. [place], [place] [address] [place] [address] Care Team Providers Care Early Head Start Teacher Name Role Phone Sami Liriano Primary [...] on file Legal Sex Female 12:43 PM OUTDOOR STUDIES DIRECTOR Gender Identity Female 12/18/2021 6:31 [...] st Contact Info) Description 10/09/2024 9:30 AM OUTDOOR STUDIES DIRECTOR Office Visit [facility] [address] Carlos Farris MD [facility] [address] [place] [address] 11/02/2024 10:20 AM OUTDOOR STUDIES DIRECTOR Office Visit [facility] Family & Internal Medicine - [address] [address] Sami Liriano DO [address] [place] [address] documented as of this encounter Visit Diagnoses Not on filedocumented in this encounter Additional Health Concerns Assessment Noted Time PHQ-9 Depression Total Score: 0 10/29/19 20 11:04 AM OUTDOOR STUDIES DIRECTOR documented as of this encounter Care Teams Early Head Start Teacher Relationship Specialty Start Date End Date Sami iLriano DO [address] [place] [address] PCP - General FAMILY PRACTICE 12/24/19 documented as of this encounter
--- OUTSIDE RECORDS SUMMARY | 2024-09-19 19:47 | XMS_ITS | Encounter Summary ---
Author Organization [facility] Address [address] [place] [address]. [place], [place] [address] [place] [address] Care Team Providers Care Senior Sql Server Dba Name Role Phone Sami Liriano Primary Care [...] on file Legal Sex Female 12:43 PM CHILD CARE PROVIDER Gender Identity Female 12/18/2021 6:31 AM [...] st Contact Info) Description 10/09/2024 9:30 AM CHILD CARE PROVIDER Office Visit [facility] [phone] [facility] [address] [place] [address] 11/02/2024 10:20 AM CHILD CARE PROVIDER Office Visit [facility] Family & Internal Medicine - [address] [phone] Sami Liriano DO [address] [place] [address] documented as of this encounter Visit Diagnoses Not on filedocumented in this encounter Additional Health Concerns Assessment Noted Time PHQ-9 Depression Total Score: 0 10/29/19 20 11:04 AM CHILD CARE PROVIDER documented as of this encounter Care Teams Senior Sql Server Dba Relationship Specialty Start Date End Date Sami Liriano DO [address] [place] [address] PCP - General FAMILY PRACTICE 12/24/19 documented as of this encounter
--- OUTSIDE RECORDS SUMMARY | 2024-09-19 19:47 | XMS_ITS | Encounter Summary ---
Author Organization [facility] Address [facility] [place], [place] [address] [place] [address] Care Team Providers Care Ledger Poster Name Role Phone Sami Gimenez DO Primary Care Provider + Reason for Referral * Consultation/Treatment (Urgent) - Closed Specialty Diagnoses / Procedures Referred By Shereen benton Referred To Contact OPHTHALMOLOGY Diagnoses Floaters in visual field Sami Gimenez DO [address] [place] [address] Phone: tel: fax: Referral ID Status Reason Start Date Expiration Date V isits Requested Visits Authorized [id number] Closed Specialty Services 03/07/2020 03/06/2021 4 4 Scheduling Instructions Patient is scheduled with Dr Fanny Monterroso at [facility] [place] [facility] at 2:40 Reason for Visit * Reason Onset Date Comments Referral 03/10/2020 Encounter Details Date Type Department Care Team (Late st Contact Info) Description 03/10/2020 Telephone [facility] Family & Internal Medicine [facility] [address] [place] [address] Sami Gimenez DO [address] [place] [address] Referral Social History Tobacco Use [...] on file Legal Sex Female 12:43 PM RECEPTIONIST AIRLINE LOUNGE Gender Identity Female 12/18/2021 6:31 AM CDT [...] Specialty: Opthomology Reason for referral (diagnosis): floaters [facility] [phone] appt at 12:40 today Last office visit at this office: Last visit with SAMI GIMENEZ in FAMILY PRACTICE was on: 10/29/2019 in [facility] Future appointment scheduled: Future Appointments Date Time Provider Department Center 03/11/2020 10:40 AM QUETA Houser FMMRVL [facility] 03/15/2020 3:00 PM [facility] 1 [facility] documented in this encounter Plan of Treatment Upcoming Encounters Date Type Department Care Team (Late st Contact Info) Description 10/09/2024 9:30 AM RECEPTIONIST AIRLINE LOUNGE Office Visit [facility] [phone] Carlos Farris MD [address] [facility] [address] [place] [address] 11/02/2024 10:20 AM RECEPTIONIST AIRLINE LOUNGE Office Visit [facility] Family & Internal Medicine [address] [address] Sami Gimenez DO [address] [place] [address] Scheduled Referrals Name Type Priority Associated Diagnoses Orde r Schedule Ambulatory Referral to Ophthalmology Referral Routine Floaters in visual field Ordered: 03/10/2020 documented as of this encounter Visit Diagnoses Diagnosis Floaters in visual field- Primary documented in this encounter Additional Health Concerns Assessment Noted Time PHQ-9 Depression Total Score: 0 10/29/19 20 11:04 AM RECEPTIONIST AIRLINE LOUNGE documented as of this encounter Care Teams Ledger Poster Relationship Specialty Start Date End Date Sami Gimenez DO [address] [place] [address] PCP - General FAMILY PRACTICE 12/24/19 documented as of this encounter
--- OUTSIDE RECORDS SUMMARY | 2024-09-19 19:47 | XMS_ITS | Encounter Summary ---
Author Organization [facility] Address [address] [place] [address]. [place], [place] [address] [place] [address] Care Team Providers Care Head Knitting Machine Fixer Name Role Phone Sami Liriano DO Primary Care Provider + Reason for Visit * Reason Onset Date Comments Lab Results 03/21/2020 Encounter Details Date Type Department Care Team (Late st Contact Info) Description 03/21/2020 Telephone [facility] Family & Internal Medicine [place] [place] [address] Sami Liriano DO [facility] [place] [address] Lab Results Social History Tobacco [...] on file Legal Sex Female 12:43 PM NURSE OFFICE Gender Identity Female 12/18/2021 6:31 AM CDT [...] - 03/21/2020 4:13 PM CDT Spoke with [facility] lab and they are adding BMP on tn * Melanie Lance MA - 03/21/2020 4:13 PM CDT ----- Message from JENNIFER Davila sent at 03/21/2020 8:37 AM CDT ----- TSH is normal. I also ordered a BMP---was this done? documented in this encounter Plan of Treatment Upcoming Encounters Date Type Department Care Team (Late st Contact Info) Description 10/09/2024 9:30 AM NURSE OFFICE Office Visit [facility] [phone] Carlos Farris MD Three [facility] [address] [place] [address] 11/02/2024 10:20 AM NURSE OFFICE Office Visit [facility] Family & Internal Medicine - [address] [phone] Sami Liriano DO [address] [place] [address] documented as of this encounter Visit Diagnoses Not on filedocumented in this encounter Additional Health Concerns Assessment Noted Time PHQ-9 Depression Total Score: 0 10/29/19 20 11:04 AM NURSE OFFICE documented as of this encounter Care Teams Head Knitting Machine Fixer Relationship Specialty Start Date End Date Sami Liriano DO [address] [place] [address] PCP - General FAMILY PRACTICE 12/24/19 documented as of this encounter
--- OUTSIDE RECORDS SUMMARY | 2024-09-19 19:47 | XMS_ITS | Encounter Summary ---
Author Organization [facility] Address [address] [place] [address]. [place], [place] [address] [place] [address] Care Team Providers Care Professor Of Biological Sciences Name Role Phone Sami Liriano DO Primary Care Provider + Reason for Visit * Reason Onset Date Comments Medication Problem 03/11/2020 Encounter Details Date Type Department Care Team (Late st Contact Info) Description 03/11/2020 Telephone [facility] Family & Internal Medicine [facility] [address] [place] [address] Sami Liriano DO [facility] [place] [address] Medication Problem Social History Tobacco [...] file Legal Sex Female 12:43 PM DIE STORAGE CLERK Gender Identity Female 12/18/2021 6:31 AM [...] Selena Espinosa - 03/11/2020 12:08 PM CDT [facility] calling, 1. They are showing an [...] Contact Info) Description 10/09/2024 9:30 AM DIE STORAGE CLERK Office Visit [facility]-[address] [phone] Carlos Farris MD [address] [facility] [address] [facility] [place] [address] 11/02/2024 10:20 AM DIE STORAGE CLERK Office Visit [facility] Family & Internal Medicine - [address] [phone] Sami Liriano, [address] [place] [address] documented as of this encounter Visit Diagnoses Not on filedocumented in this encounter Additional Health Concerns Assessment Noted Time PHQ-9 Depression Total Score: 0 10/29/19 20 11:04 AM DIE STORAGE CLERK documented as of this encounter Care Teams Professor Of Biological Sciences Relationship Specialty Start Date End Date Sami Liriano DO [address] [place] [address] PCP - General FAMILY PRACTICE 12/24/19 documented as of this encounter
--- OUTSIDE RECORDS SUMMARY | 2024-09-19 19:47 | XMS_ITS | Encounter Summary ---
Author Organization [facility] Address [facility] [place], [place] [address] [place] [address] Care Team Providers Care Food Storeroom Clerk Name Role Phone Sami Liriano Primary Care Provider + Encounter Details Date Type Department Care Team (Late st Contact Info) Description 03/15/2020 [facility] at [facility] [address] [place], [place] [address] Michel Shelby MD [facility] [address] [place], [place] [phone] Social History Tobacco Use Types Packs/Day Years [...] on file Legal Sex Female 12:43 PM LAMP SHADE JOINER Gender Identity Female 12/18/2021 6:31 AM CDT [...] st Contact Info) Description 10/09/2024 9:30 AM LAMP SHADE JOINER Office Visit [facility]-[address] [phone] Carlos Farris MD Three [facility] [address] [place] [address] 11/02/2024 10:20 AM LAMP SHADE JOINER Office Visit [facility] Family & Internal Medicine - [address] [phone] Sami Liriano DO [address] [place] [address] documented as of this encounter Visit Diagnoses Not on filedocumented in this encounter Additional Health Concerns Assessment Noted Time PHQ-9 Depression Total Score: 0 10/29/19 20 11:04 AM LAMP SHADE JOINER documented as of this encounter Care Teams Food Storeroom Clerk Relationship Specialty Start Date End Date Sami Liriano DO [address] [place] [address] PCP - General FAMILY PRACTICE 12/24/19 documented as of this encounter
--- OUTSIDE RECORDS SUMMARY | 2024-09-19 19:47 | XMS_ITS | Encounter Summary ---
Author Organization [facility] Address [address] [place] [address]. [place], [place] [address] [place] [address] Care Team Providers Care Home Health Care Worker Name Role Phone Sami Liriano DO Primary Care Provider + Reason for Visit * Reason Onset Date Comments Orders 03/07/2020 Encounter Details Date Type Department Care Team (Late st Contact Info) Description 03/07/2020 Telephone [facility] Family & Internal Medicine [facility] [address] [place] [address] aSmi Liriano DO [facility] [place] [address] Orders Social History Tobacco Use [...] on file Legal Sex Female 12:43 PM MOUNT LOADER Gender Identity Female 12/18/2021 6:31 AM [...] Pt is going to have XR at [facility] as she is already there. Order faxed. * Sumaya Ro MA - 03/07/2020 2:12 PM CDT Cancelled metoprolol rx per Barb she is still thinking about this and I have ordered a CXR. Pt canhave this done at [facility] or here. I tried to call pt to inform of this but pt's VM was not set up. 03/07/20 documented in this encounter Plan of Treatment Upcoming Encounters Date Type Department Care Team (Late st Contact Info) Description 10/09/2024 9:30 AM MOUNT LOADER Office Visit [facility]-[address] [phone] Carlos Farris MD [facility] [address] [place] [address] 11/02/2024 10:20 AM MOUNT LOADER Office Visit [facility] Family & Internal Medicine - [address] [phone] Sami Liriano DO [address] [place] [address] documented as of this encounter Visit Diagnoses Not on filedocumented in this encounter Additional Health Concerns Assessment Noted Time PHQ-9 Depression Total Score: 0 10/29/19 20 11:04 AM MOUNT LOADER documented as of this encounter Care Teams Home Health Care Worker Relationship Specialty Start Date End Date Sami Liriano DO [address] [place] [address] PCP - General FAMILY PRACTICE 12/24/19 documented as of this encounter
--- OUTSIDE RECORDS SUMMARY | 2024-09-19 19:47 | XMS_ITS | Encounter Summary ---
Author Organization [facility] Address [address] [place] [address]. [place], [place] [address] [place] [address] Care Team Providers Care Voice Pathologist Name Role Phone Sami Liriano DO Primary Care Provider + Reason for Visit * Reason Onset Date Comments Results 03/21/2020 Encounter Details Date Type Department Care Team (Late st Contact Info) Description 03/21/2020 Telephone [facility] Family & Internal Medicine [id number] [place] [address] Sami Liriano DO [address] [place] [address] Results Social History Tobacco Use [...] file Legal Sex Female 12:43 PM CHILD CAREGIVER PRIVATE HOME Gender Identity Female 12/18/2021 6:31 AM CDT [...] Contact Info) Description 10/09/2024 9:30 AM CHILD CAREGIVER PRIVATE HOME Office Visit [facility] [address] [address] [facility] [address] [place] [address] 11/02/2024 10:20 AM CHILD CAREGIVER PRIVATE HOME Office Visit [facility] Family & Internal Medicine - [address] [address] Sami Liriano DO [address] [place] [address] documented as of this encounter Visit Diagnoses Not on filedocumented in this encounter Additional Health Concerns Assessment Noted Time PHQ-9 Depression Total Score: 0 10/29/19 20 11:04 AM CHILD CAREGIVER PRIVATE HOME documented as of this encounter Care Teams Voice Pathologist Relationship Specialty Start Date End Date Sami Liriano DO [address] [place] [address] PCP - General FAMILY PRACTICE 12/24/19 documented as of this encounter
--- OUTSIDE RECORDS SUMMARY | 2024-09-19 19:47 | XMS_ITS | Encounter Summary ---
Author Organization [facility] Address [address] [place] [address]. [place], [place] [address] [place] [address] Care Team Providers Care Anhydrous Ammonia Production Supervisor Name Role Phone Sami Liriano Primary [...] file Legal Sex Female 12:43 PM BUSINESS ANALYTICS DIRECTOR Gender Identity Female 12/18/2021 6:31 AM [...] Contact Info) Description 10/09/2024 9:30 AM BUSINESS ANALYTICS DIRECTOR Office Visit [facility] [address] [place] [address] Carlos Farris MD [facility] [address] [place] [address] 11/02/2024 10:20 AM BUSINESS ANALYTICS DIRECTOR Office Visit [facility] Family & Internal Medicine - [address] [address] Sami Liriano DO [address] [place] [address] documented as of this encounter Procedures Procedure [...] Score: 0 10/29/19 20 11:04 AM BUSINESS ANALYTICS DIRECTOR documented as of this encounter Care Teams Anhydrous Ammonia Production Supervisor Relationship Specialty Start Date End Date Sami Liriano DO [address] [place] [address] PCP - General FAMILY PRACTICE 12/24/19 documented as of this encounter
--- OUTSIDE RECORDS SUMMARY | 2024-09-19 19:48 | XMS_ITS | Encounter Summary ---
Author Organization [facility] Address Pending sale to [facility]. [place], [place] [address] [place] [address] Care Team Providers Care Exceptional Student Education Aide Name Role Phone Sami Liriano DO Primary Care Provider + Sami Liriano DO Primary Care Provider + Encounter Details Date Type Department Care Team (Latest Contact Info) Description 04/17/2017 Scan [employer] INFO SRVCS Scanned, Documents Social History Tobacco [...] file Legal Sex Female 12:43 PM INTERIOR WIRER Gender Identity Female 12/18/2021 6:31 AM CDT Sexual Orientation Straight 01/15/2022 6: 11 AM CDT documented as of this encounter Plan of Treatment Upcoming Encounters Date Type Department Care Team (Late st Contact Info) Description 10/09/2024 9:30 AM INTERIOR WIRER Office Visit [facility] [address] Carlos Farris MD [facility] [address] [place] [address] 11/02/2024 10:20 AM INTERIOR WIRER Office Visit [facility] Family & Internal Medicine - [place] [address] [place] [address] Sami Liriano DO [address] [place] [address] documented as of this encounter Visit Diagnoses Not on filedocumented in this encounter Care Teams Exceptional Student Education Aide Relationship Specialty [place] [address] [place] [address] PCP - General FAMILY PRACTICE 10/06/19 12/23/19 Sami Liriano DO [address] [place] [address] PCP - General FAMILY PRACTICE 12/24/19 documented as of this encounter
--- OUTSIDE RECORDS SUMMARY | 2024-09-19 19:48 | XMS_ITS | Encounter Summary ---
Author Organization [facility] Address [facility]. [place], [place] [address] [place] [address] Care Team Providers Care Bottom Presser Name Role Phone Sami Liriano DO Primary Care Provider + Sami Liriano DO Primary Care Provider + Encounter Details Date Type Department Care Team (Latest Contact Info) Description 03/18/2019 Scan [employer] INFO SRVCS Scanned, Documents Social History Tobacco [...] file Legal Sex Female 12:43 PM FLIGHT ENGINEER INSPECTOR Gender Identity Female 12/18/2021 6:31 AM CDT Sexual Orientation Straight 01/15/2022 6: 11 AM CDT documented as of this encounter Plan of Treatment Upcoming Encounters Date Type Department Care Team (Late st Contact Info) Description 10/09/2024 9:30 AM FLIGHT ENGINEER INSPECTOR Office Visit [facility] [address] Carlos Farris MD [facility] [address] [place] [address] 11/02/2024 10:20 AM FLIGHT ENGINEER INSPECTOR Office Visit [facility] Family & Internal Medicine - [place] [address] [place] [address] Sami Liriano DO [address] [place] [address] documented as of this encounter Visit Diagnoses Not on filedocumented in this encounter Care Teams Bottom Presser Relationship Specialty [place] [address] [place] [address] PCP - General FAMILY PRACTICE 10/06/19 12/23/19 Sami Liriano DO [address] [place] [address] PCP - General FAMILY PRACTICE 12/24/19 documented as of this encounter
--- OUTSIDE RECORDS SUMMARY | 2024-09-19 19:48 | XMS_ITS | Encounter Summary ---
Author Organization [facility] Address [facility] [place], [place] [address] [place] [address] Care Team Providers Care Customer Relations Assistant Name Role Phone Sami Liriano DO Primary Care Provider + Reason for Referral * Consultation (Routine) - Closed Specialty Diagnoses / Procedures Referred By Shereen benton Referred To Contact GASTROENTEROLOGY Diagnoses Positive colorectal cancer screening using Cologuard test Sami Liriano DO [address] [place] [address] Phone: tel: fax: Joel Keenan MD [address] [place] [address] Phone: tel: fax: Referral ID Status Reason Start Date Expiration Date Visits Re quested Visits Authorized [id number] Closed 02/08/2020 09/29/2020 8 8 Reason for Visit * Reason Onset Date Comments Results 11/16/2019 Encounter Details Date Type Department Care Team (Late st Contact Info) Description 11/16/2019 Telephone [facility] Family & Internal Medicine [facility] [address] [place] [address] Sami Liriano DO [address] [place], [place] [phone] Results Social History Tobacco Use Types Packs/Day Years Used Date Smoking Tobacco: Former Cigarettes 1 12 730 1976 Smokeless Tobacco: Never Alcohol Use Standard [...] file Legal Sex Female 12:43 PM SPRAY BOOTH OPERATOR Gender Identity Female 12/18/2021 6:31 AM [...] 12/07/2019 08:54 AM Modules accepted: Orders * Leanna Bean RN - 12/07/2019 8:54 AM CDT LMTC 12/07/19 * Sami Liriano DO - 12/06/2019 5:21 PM CDT Pt's cologuard is positive; she will need to f/u with GI for colonoscopy. * Leanna Bean RN - 11/18/2019 10:15 AM CST LMTC 11/18/19 Y BOOTH OPERATOR * Leanna Bean RN - 11/17/2019 10:06 AM CST LMTC 11/17/19 Y BOOTH OPERATOR * Leanna Bean RN - 11/16/2019 4:00 PM CST Patient needs to resubmit cologuard testing. Sample could not be processed. LMTC 11/16/19 Y BOOTH OPERATOR documented in this encounter Plan of Treatment Upcoming Encounters Date Type Department Care Team (Late st Contact Info) Description 10/09/2024 9:30 AM SPRAY BOOTH OPERATOR Office Visit [facility] [phone] Carlos Farris MD [facility] Suite [facility] [place] [address] 11/02/2024 10:20 AM SPRAY BOOTH OPERATOR Office Visit [facility] Family & Internal Medicine - [address] [phone] Sami Liriano DO [address] [place] [address] Scheduled Referrals Name Type Priority Associated Diagnoses Orde r Schedule Ambulatory referral to Gastroenterology (OTHER) Referral Routine Positive colorectal cancer screening using Cologuard test Ordered: 12/07/2019 documented as of this encounter Visit Diagnoses Diagnosis Positive colorectal cancer screening using Cologuard test- Primary documented in this encounter Additional Health Concerns Assessment Noted Time PHQ-9 Depression Total Score: 0 10/29/19 11:04 AM SPRAY BOOTH OPERATOR documented as of this encounter Care Teams Customer Relations Assistant Relationship Specialty Start Date End Date Sami Liriano DO [address] [place] [address] PCP - General FAMILY PRACTICE 10/06/19 12/23/19 documented as of this encounter
--- OUTSIDE RECORDS SUMMARY | 2024-09-19 19:48 | XMS_ITS | Encounter Summary ---
Author Organization [facility] Address [facility], [id number] [facility]. [place], [place] [address] [place] [address] Care Team Providers Care Fitness Coordinator Name Role Phone Sami Liriano DO Primary Care Provider + Sami Liriano DO Primary Care Provider + Encounter Details Date Type Department Care Team (Latest Contact Info) Description 10/03/2017 Scan [employer] INFO SRVCS Scanned, Documents Social History Tobacco [...] file Legal Sex Female 12:43 PM SPECIAL PROCEDURES NURSE Gender Identity Female 12/18/2021 6:31 AM CDT Sexual Orientation Straight 01/15/2022 6: 11 AM CDT documented as of this encounter Plan of Treatment Upcoming Encounters Date Type Department Care Team (Late st Contact Info) Description 10/09/2024 9:30 AM SPECIAL PROCEDURES NURSE Office Visit [facility] [address] Carlos Farris MD [facility] [address] [place] [address] 11/02/2024 10:20 AM SPECIAL PROCEDURES NURSE Office [facility] Family & Internal Medicine - [place] [address] [place] [address] Sami Liriano DO [address] [place] [address] documented as of this encounter Visit Diagnoses Not on filedocumented in this encounter Care Teams Fitness Coordinator Relationship Specialty [place] [address] [place] [address] PCP - General FAMILY PRACTICE 10/06/19 12/23/19 Sami Liriano DO [address] [place] [address] PCP - General FAMILY PRACTICE 12/24/19 documented as of this encounter
--- OUTSIDE RECORDS SUMMARY | 2024-09-19 19:48 | XMS_ITS | Encounter Summary ---
Author Organization [facility] Address [facility]. [place], [place] [address] [place] [address] Care Team Providers Care Special Education Superintendent Name Role Phone Sami Liriano DO Primary Care Provider + Sami Liriano DO Primary Care Provider + Encounter Details Date Type Department Care Team (Latest Contact Info) Description 04/17/2019 Scan [employer] INFO SRVCS Scanned, Documents Social History Tobacco [...] Legal Sex Female 12:43 PM BUSINESS DEVELOPMENT REPRESENTATIVE Gender Identity Female 12/18/2021 6:31 AM CDT Sexual Orientation Straight 01/15/2022 6: 11 AM CDT documented as of this encounter Plan of Treatment Upcoming Encounters Date Type Department Care Team (Late st Contact Info) Description 10/09/2024 9:30 AM BUSINESS DEVELOPMENT REPRESENTATIVE Office Visit [facility] [address] Carlos Farris MD [facility] [address] [place] [address] 11/02/2024 10:20 AM BUSINESS DEVELOPMENT REPRESENTATIVE Office Visit [facility] Family & Internal Medicine - [place] [address] [place] [address] Sami Liriano DO [address] [place] [address] documented as of this encounter Visit Diagnoses Not on filedocumented in this encounter Care Teams Special Education Superintendent Relationship Specialty [place] [address] [place] [address] PCP - General FAMILY PRACTICE 10/06/19 12/23/19 Sami Liriano DO [address] [place] [address] PCP - General FAMILY PRACTICE 12/24/19 documented as of this encounter
--- OUTSIDE RECORDS SUMMARY | 2024-09-19 19:48 | XMS_ITS | Encounter Summary ---
Author Organization [facility] Address [facility]6 [facility]. [place], [place] [address] [place] [address] Care Team Providers Care Human Services Manager Name Role Phone Sami Liriano DO Primary Care Provider + Reason for Referral * Imaging (Routine) - Closed Specialty Diagnoses / Procedures Referred By Shereen benton Referred To Contact RADIOLOGY Diagnoses Breast cancer screening by mammogram Procedures MG SCREENING HAN DIGI Sami Liriano DO [address] [place] [address] Phone: tel: fax: [facility] [address] [facility] [address] [place] [address] Phone: tel: fax: Referral ID Status Reason Start Date Expiration Date V isits Requested Visits Authorized [id number] Closed Mammogram 10/29/2019 10/29/2020 1 1 MAKER * Consultation/Treatment (Routine) - Closed Specialty Diagnoses / Procedures Referred By Shereen benton Referred To Contact ORTHOPAEDICS Diagnoses Arthritis of left knee Sami Liriano DO [address] [place] [phone] Phone: tel: fax: Christel Granados NP-C Referral ID Status Reason Start Date Expiration Date V isits Requested Visits Authorized [id number] Closed Specialty Services 10/29/2019 11/28/2020 1 1 MAKER Reason for Visit * Reason Comments Establish Care Medication Encounter Details Date Type Department Care Team (Late st Contact Info) Description 10/29/2019 10:00 AM BAIT MAKER Office Visit [facility] Family & Internal Medicine [facility] [address] [place] [address] Sami Liriano DO [address] [place] [address] Establish Care (Medication ) Social History Tobacco [...] on file Legal Sex Female 12:43 PM BAIT MAKER Gender Identity Female 12/18/2021 6:31 AM CDT Sexual Orientation Straight 01/15/2022 6: 11 AM CDT documented as of this encounter Last Filed Vital Signs Vital Sign Reading Time Taken Comments Blood Pressure 126/74 10/29/2019 10:38 AM BAIT MAKER Pulse 76 10/29/2019 10:38 AM BAIT MAKER Temperature 36.3 ??C (97.4 ??F) 10/29/2019 10:[address] Respiratory Rate 16 10/29/2019 10:38 AM BAIT MAKER Oxygen Saturation 96% 10/29/2019 10:38 AM BAIT MAKER Inhaled Oxygen Concentration - - Weight 111.8 kg (246 lb 9 oz) 10/29/2019 10:38 A M BAIT MAKER Height 152.4 cm (5') 10/29/2019 10:38 AM BAIT MAKER Body Mass Index 48.15 10/29/2019 10:38 AM BAIT MAKER documented in this encounter Progress Notes * [...] file Gets together: Not on file Attends buddhist service: Not on file Active member of [...] LT 3V; Future Alopecia BMI 45.0-49.9, adult ([facility]) Breast cancer screening by mammogram - MG [...] and coordination of care. Sami Liriano DO MAKER documented in this encounter Plan of Treatment Upcoming Encounters Date Type Department Care Team (Late st Contact Info) Description 10/09/2024 9:30 AM BAIT MAKER Office Visit [facility] [address] Carlos Farris MD [facility] [address] [place] [address] 11/02/2024 10:20 AM BAIT MAKER Office Visit [facility] Group Family & Internal Medicine [facility] [address] [place] [phone] Sami Liriano DO [address] [place] [address] Scheduled Orders Name Type Priority Associated Diagnoses [...] * (ABNORMAL) LIPID PANEL (09/05/2020 2:00 PM BAIT MAKER) CHOLESTEROL 227(H) <200 MG/DL 09/05/2020 7:26 PM [facility] TRIGLYCERIDES 150(H) <150 MG/DL 09/05/2020 7:26 PM BAIT MAKER [facility] HDL 47 >40.0 MG/DL 09/05/2020 7:26 PM [facility] LDL (CALCULATED) 150(H) <100 MG/DL 09/05/2020 7:26 PM [facility] NON HDL CHOLESTEROL 180(H) <130 MG/DL 09/05/2020 7:26 PM [facility] CHOL/HDL RATIO 4.8(H) 0.0 - 4.5 09/05/2020 7:26 PM [facility] VLDL CALCULATION 30 5 - 55 MG/DL 09/05/2020 7:26 PM [facility] LIPID INTERPRETATION 09/05/2020 7:26 PM [facility] Comment: NIH CONCENSUS REPORT RECOMMENDATIONS: [...] ?LDL ? >=160 ?>=130 09/05/2020 2:00 PM BAIT MAKER us Sami Liriano DO LABORATORY Final Re sult [facility] [address] [place] [address], [place] [phone] * TSH W/REFLEX (09/05/2020 2:00 PM BAIT MAKER) TSH 2.220 0.358 - 3.74 uIU/ML 09/05/2020 7:26 PM BAIT MAKER [facility] Comment: HIGH DOSES OF BIOTIN MAY INTERFERE WITH THIS TEST RESULT. CORRELATION TO CLINICAL HISTORY AND PRESENTATION RECOMMENDED. 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 Interpreted By: Cristhian Holley MD, 10/29/2019 7:36 PM Narrative 10/29/2019 7:37 PM BAIT MAKER Examination: XR KNEE LT 3V Exam time: [...] Total Score: 0 10/29/19 20 11:04 AM BAIT MAKER documented as of this encounter Care Teams Human Services Manager Relationship Specialty Start Date End Date Sami Liriano DO [address] [place] [address] PCP - General FAMILY PRACTICE 10/06/19 12/23/19 documented as of this encounter
--- OUTSIDE RECORDS SUMMARY | 2024-09-19 19:48 | XMS_ITS | Encounter Summary ---
Author Organization [facility] Address [facility]. [place], [place] [address] [place] [address] Care Team Providers Care Chemistry Teacher Name Role Phone Saim Liriano Primary Care Provider + Reason for Visit * Reason Onset Date Comments Advise 12/17/2019 Encounter Details Date Type Department Care Team (Late st Contact Info) Description 12/17/2019 Telephone [facility] Multispecialty Care - [facility] 3 [facility], [address] [place] [address] Christel Granados, EVAPORATOR REPAIRER-C Advise Social History Tobacco Use Types Packs/Day [...] on file Legal Sex Female 12:43 PM EXPEDITIONARY FORCE COMBAT SKILLS Gender Identity Female 12/18/2021 6:31 AM CDT [...] st Contact Info) Description 10/09/2024 9:30 AM EXPEDITIONARY FORCE COMBAT SKILLS Office Visit [facility]-[address] [address] Carlos Farris MD [facility] Bl [address] [facility] [place] [address] 11/02/2024 10:20 AM EXPEDITIONARY FORCE COMBAT SKILLS Office Visit [facility] Group Family & Internal Medicine - [address] [address] Sami Liriano DO [address] [place] [address] documented as of this encounter Visit Diagnoses Not on filedocumented in this encounter Additional Health Concerns Assessment Noted Time PHQ-9 Depression Total Score: 0 10/29/19 20 11:04 AM EXPEDITIONARY FORCE COMBAT SKILLS documented as of this encounter Care Teams Chemistry Teacher Relationship Specialty Start Date End Date Sami Liriano DO [address] [place] [address] PCP - General FAMILY PRACTICE 10/06/19 12/23/19 documented as of this encounter
--- OUTSIDE RECORDS SUMMARY | 2024-09-19 19:48 | XMS_ITS | Encounter Summary ---
Author Organization [facility] Address [address] [place] [address]. [place], [place] [address] [place] [address] Care Team Providers Care Basket Grader Name Role Phone JaellowellSami cox DO Primary [...] file Legal Sex Female 12:43 PM PRODUCTION MACHINE SHOP SUPERVISOR Gender Identity Female 12/18/2021 6:31 [...] ( Contact Info) Description 10/09/2024 9:30 AM PRODUCTION MACHINE SHOP SUPERVISOR Office Visit [facility] [address] [place] [address] Carlos Farris MD [facility] [address] [place] [address] 11/02/2024 10:20 AM PRODUCTION MACHINE SHOP SUPERVISOR Office Visit [facility] Family & Internal Medicine - [place] [address] [place] [address] Sami Liriano DO [address] [place] [address] documented as of this encounter Procedures Procedure Name Priority Date/Time Associated Diagnosis Comments OUTSIDE LAB (SCAN ORDER) Routine 03/04/2020 1:50 PM CDT documented in this encounter Results * OUTSIDE LAB (03/04/2020 1:50 PM CDT) 03/04/2020 1:50 PM CDT us Documents Scanned SCANNING Edited Result - Final [facility] [place] documented in this encounter Visit Diagnoses Not on filedocumented in this encounter Care Teams Basket Grader Relationship Specialty Start Date End Date Sami Liriano DO [address] [place] [address] PCP - General FAMILY PRACTICE 10/06/19 12/23/19 Sami Liriano DO [address] [place] [address] PCP - General FAMILY PRACTICE 12/24/19 documented as of this encounter
--- OUTSIDE RECORDS SUMMARY | 2024-09-19 19:48 | XMS_ITS | Encounter Summary ---
Author Organization [facility] Address [address] [place] [address]. [place], [place] [address] [place] [address] Care Team Providers Care Sr. Manager Marketing Name Role Phone Sami Liriano Primary Care [...] on file Legal Sex Female 12:43 PM LAWN TECHNICIAN Gender Identity Female 12/18/2021 6:31 AM CDT Sexual Orientation Straight 01/15/2022 6: 11 AM CDT documented as of this encounter Plan of Treatment Upcoming Encounters Date Type Department Care Team (Late st Contact Info) Description 10/09/2024 9:30 AM LAWN TECHNICIAN Office Visit [facility] [address] Carlos Farris MD [facility] [address] [place] [address] 11/02/2024 10:20 AM LAWN TECHNICIAN Office Visit [facility] Family & Internal Medicine - [address] [address] Sami Liriano DO [address] [place] [address] documented as of this encounter Visit Diagnoses Not on filedocumented in this encounter Additional Health Concerns Assessment Noted Time PHQ-9 Depression Total Score: 0 10/29/19 11:04 AM LAWN TECHNICIAN documented as of this encounter Care Teams Sr. Manager Marketing Relationship Specialty Start Date End Date Sami Liriano DO [address] [place] [address] PCP - General FAMILY PRACTICE 10/06/19 12/23/19 documented as of this encounter
--- OUTSIDE RECORDS SUMMARY | 2024-09-19 19:48 | XMS_ITS | Encounter Summary ---
Author Organization [facility] Address [facility]. [place], [place] [address] [place] [address] Care Team Providers Care Paper Novelty Maker Name Role Phone Sami Liriano DO [...] on file Legal Sex Female 12:43 PM DATABASE ANALYST Gender Identity Female 12/18/2021 6:31 AM [...] (Late Contact Info) Description 10/09/2024 9:30 AM DATABASE ANALYST Office Visit [facility] [place] [address] Carlos Farris MD Three [facility] [address] [place] [address] 11/02/2024 10:20 AM DATABASE ANALYST Office Visit [facility] Medical Group Family & Internal Medicine - [place] [address] [place] [address] Sami Liriano DO [address] [place] [address] documented as of this encounter Visit Diagnoses Not on filedocumented in this encounter Care Teams Paper Novelty Maker Relationship Specialty Start Date End Date Sami Liriano DO [address] [place] [address] PCP - General FAMILY PRACTICE 10/06/19 12/23/19 Sami Liriano DO [address] [place] [address] PCP - General FAMILY PRACTICE 12/24/19 documented as of this encounter
--- OUTSIDE RECORDS SUMMARY | 2024-09-19 19:48 | XMS_ITS | Encounter Summary ---
Author Organization [facility] Address [facility]. [place], [place] [address] [place] [address] Care Team Providers Care Operations Assistant Name Role Phone Sami Liriano DO Primary Care Provider + Sami Liriano DO Primary Care Provider + Encounter Details Date Type Department Care Team (Latest Contact Info) Description 11/28/2017 Scan [employer] INFO SRVCS Scanned, Documents Social History Tobacco [...] file Legal Sex Female 12:43 PM GENERAL CLERK Gender Identity Female 12/18/2021 6:31 AM CDT Sexual Orientation Straight 01/15/2022 6: 11 AM CDT documented as of this encounter Plan of Treatment Upcoming Encounters Date Type Department Care Team (Late st Contact Info) Description 10/09/2024 9:30 AM GENERAL CLERK Office Visit [facility] [phone] Carlos Farris MD [facility] [address] [place] [address] 11/02/2024 10:20 AM GENERAL CLERK Office Visit [facility] Medical Group Family & Internal Medicine - [place] [address] [place] [address] Sami Liriano DO [address] [place] [address] documented as of this encounter Visit Diagnoses Not on filedocumented in this encounter Care Teams Operations Assistant Relationship Specialty [place] [address] [place] [address] PCP - General FAMILY PRACTICE 10/06/19 12/23/19 Sami Liriano DO [address] [place] [address] PCP - General FAMILY PRACTICE 12/24/19 documented as of this encounter
--- OUTSIDE RECORDS SUMMARY | 2024-09-19 19:48 | XMS_ITS | Encounter Summary ---
Author Organization [facility] Address [facility]. [place], [place] [address] [place] [address] Care Team Providers Care Dumbwaiter Operator Name Role Phone Sami Liriano Primary Care Provider + Encounter Details Date Type Department Care Team (Late Contact Info) Description 10/06/2019 Orders Only [facility] Family & Internal Medicine [address] [phone] Yuliana Block, PUMP OPERATOR Social History Tobacco Use Types Packs/Day Years Used Date Smoking Tobacco: Never Assessed Comments Unknown Sex and Gender Information Value Date Recorded Sex Assigned at Not on file Legal Sex Female 12:43 PM SHOE SEWING 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 AND TENDER Gender Identity Female 12/18/2021 6:31 AM CDT Sexual Orientation Straight 01/15/2022 6: 11 AM CDT documented as of this encounter Plan of Treatment Upcoming Encounters Date Type Department Care Team (Late Contact Info) Description 10/09/2024 9:30 AM SHOE SEWING 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 AND TENDER Office Visit [facility] [phone] Carlos Farris MD [facility] [address] [place] [address] 11/02/2024 10:20 AM SHOE SEWING 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 AND TENDER Office Visit [facility] Family & Internal Medicine [address] [address] Sami Liriano DO [address] [place] [address] documented as of this encounter Visit Diagnoses Not on filedocumented in this encounter Care Teams Dumbwaiter Operator Relationship Specialty Start Date End Date Sami Liriano DO [address] [place] [address] PCP - General FAMILY PRACTICE 10/06/19 12/23/19 documented as of this encounter
--- OUTSIDE RECORDS SUMMARY | 2024-09-19 19:48 | XMS_ITS | Encounter Summary ---
Author Organization [facility] Address [address] [place] [address]. [place], [place] [address] [place] [address] Care Team Providers Care Animal Hospital Clerk Name Role Phone Sami Liriano Primary [...] file Legal Sex Female 12:43 PM SALES TEAM RECRUITER Gender Identity Female 12/18/2021 6:31 AM CDT Sexual Orientation Straight 01/15/2022 6: 11 AM CDT documented as of this encounter Plan of Treatment Upcoming Encounters Date Type Department Care Team (Late st Contact Info) Description 10/09/2024 9:30 AM SALES TEAM RECRUITER Office Visit [facility] [address] Carlos Farris MD Three [facility] [address] [place] [address] 11/02/2024 10:20 AM SALES TEAM RECRUITER Office Visit [facility] Medical Group Family & Internal Medicine - [address] [address] Sami Liriano DO [address] [place] [address] documented as of this encounter Visit Diagnoses Not on filedocumented in this encounter Additional Health Concerns Assessment Noted Time PHQ-9 Depression Total Score: 0 10/29/19 11:04 AM SALES TEAM RECRUITER documented as of this encounter Care Teams Animal Hospital Clerk Relationship Specialty Start Date End Date Sami Liriano DO [address] [place] [address] PCP - General FAMILY PRACTICE 10/06/19 12/23/19 documented as of this encounter
--- OUTSIDE RECORDS SUMMARY | 2024-09-19 19:48 | XMS_ITS | Encounter Summary ---
Author Organization [facility] Address [address] [place] [address]. [place], [place] [address] [place] [address] Care Team Providers Care Home Office Claims Examiner Name Role Phone JaellowellSami cox DO Primary [...] file Legal Sex Female 12:43 PM FINANCIAL PLANNING CONSULTANT Gender Identity Female 12/18/2021 6:31 AM [...] ( Contact Info) Description 10/09/2024 9:30 AM FINANCIAL PLANNING CONSULTANT Office Visit [facility] [address] [place] [address] Carlos Farris MD Three [facility] [address] [place] [address] 11/02/2024 10:20 AM FINANCIAL PLANNING CONSULTANT Office [facility] Family & Internal Medicine - [place] [address] [place] [address] Sami Liriano DO [address] [place] [address] documented as of this encounter Procedures Procedure Name Priority Date/Time Associated Diagnosis Comments OUTSIDE LAB (SCAN ORDER) Routine 03/04/2020 2:38 PM CDT OUTSIDE LAB (SCAN ORDER) Routine 03/04/2020 2:26 PM CDT documented in this encounter Results * OUTSIDE LAB (03/04/2020 2:38 PM CDT) 03/04/2020 2:38 PM CDT us Documents Scanned SCANNING Edited Result - Final Performing Organization Address [facility] Co de Phone Number [facility] * OUTSIDE LAB (03/04/2020 2:26 PM CDT) 03/04/2020 2:26 PM CDT us Documents Scanned SCANNING Edited Result - Final Performing Organization Address [facility]/ZIP Co de Phone Number [facility] documented in this encounter Visit Diagnoses Not on filedocumented in this encounter Care Teams Home Office Claims Examiner Relationship Specialty Start Date End Date Sami Liriano DO [address] [place] [address] PCP - General FAMILY PRACTICE 10/06/19 12/23/19 Sami Liriano DO [address] [place] [address] PCP - General FAMILY PRACTICE 12/24/19 documented as of this encounter
--- OUTSIDE RECORDS SUMMARY | 2024-09-19 19:48 | XMS_ITS | Encounter Summary ---
Author Organization [facility] Address [facility] [place]. [place], [place] [address] [place] [address] Care Team Providers Care Structural Analyst Name Role Phone Sami Liriano DO Primary Care Provider + Sami Liriano DO Primary Care Provider + Encounter Details Date Type Department Care Team (Latest Contact Info) Description 08/24/2019 Scan [employer] INFO SRVCS Scanned, Documents Social History Tobacco [...] on file Legal Sex Female 12:43 PM PROSTHETICS LAB TECHNICIAN Gender Identity Female 12/18/2021 6:31 AM CDT Sexual Orientation Straight 01/15/2022 6: 11 AM CDT documented as of this encounter Plan of Treatment Upcoming Encounters Date Type Department Care Team (Late st Contact Info) Description 10/09/2024 9:30 AM PROSTHETICS LAB TECHNICIAN Office Visit [facility]-[address] [phone] Carlos Farris MD [facility] [address] [place] [address] 11/02/2024 10:20 AM PROSTHETICS LAB TECHNICIAN Office Visit [facility] Medical [facility] Family & Internal Medicine - [place] [address] [place] [address] Sami Liriano DO [address] [place] [address] documented as of this encounter Visit Diagnoses Not on filedocumented in this encounter Care Teams Structural Analyst Relationship Specialty [place] [address] [place] [address] PCP - General FAMILY PRACTICE 10/06/19 12/23/19 Sami Liriano DO [address] [place] [address] PCP - General FAMILY PRACTICE 12/24/19 documented as of this encounter
--- OUTSIDE RECORDS SUMMARY | 2024-09-19 19:48 | XMS_ITS | Encounter Summary ---
Author Organization [facility] Address [address] [place] [address]. [place], [place] [address] [place] [address] Care Team Providers Care Crystal Report Developer Name Role Phone Sami Liriano DO Primary Care Provider + Reason for Referral * (Routine) - Closed Specialty Diagnoses / Procedures Referred By Shereen benton Referred To Contact Diagnoses Primary osteoarthritis of left knee Procedures Joint Aspiration/Injection Christel Granados NP-C Referral ID Status Reason Start Date Expiration Date Visits Re quested Visits Authorized [id number] Closed 12/22/2019 01/21/2021 1 1 Reason for Visit * Reason Comments New Patient Lt knee * Consultation/Treatment (Routine) - Closed Specialty Diagnoses / Procedures Referred By Shereen benton Referred To Contact ORTHOPAEDICS Diagnoses Arthritis of left knee Sami Liriano DO [address] [place] [address] Phone: tel: fax: Christel Granados NP-C Referral ID Status Reason Start Date Expiration Date V isits Requested Visits Authorized [id number] Closed Specialty Services 10/29/2019 11/28/2020 1 1 Encounter Details Date Type Department Care Team (Late st Contact Info) Description 12/22/2019 10:40 AM CDT Office Visit [facility] Medical Group Multispecialty Care - [address], [address] [place] [address] Christel Granados NP-C New Patient (Lt knee [...] on file Legal Sex Female 12:43 PM LOG YARD MANAGER Gender Identity Female 12/18/2021 6:31 AM [...] Be sure to include all prescription and [id number] (OTC) drugs, and herbal supplements. Tell the [...] right for you. Copyright Copyright ?? 2019 [employer] Clinical Drug InformationFOREVERVOGUE.COM. and its affiliates and/or licensors. All rights [...] beingmuch of a benefit. 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 Due to [employer] school is out [...] file Gets together: Not on file Attends yarsani service: Not on file Active member of [...] index (BMI)of 50.0 to 59.9 in adult ([facility]) Recommendations and Plan: Reviewed x-ray [...] st Contact Info) Description 10/09/2024 9:30 AM LOG YARD MANAGER Office Visit [facility]-[address] [address] Carlos Farris MD [address] [facility] [address] [place] [address] 11/02/2024 10:20 AM LOG YARD MANAGER Office Visit [facility] Medical Group Family & Internal Medicine - [address] [address] Sami Liriano DO [address] [place] [address] Scheduled Orders Name Type Priority Associated Diagnoses [...] Total Score: 0 10/29/19 20 11:04 AM LOG YARD MANAGER documented as of this encounter Care Teams Crystal Report Developer Relationship Specialty Start Date End Date Sami Liriano DO [address] [place] [address] PCP - General FAMILY PRACTICE 10/06/19 12/23/19 documented as of this encounter
--- OUTSIDE RECORDS SUMMARY | 2024-09-19 19:49 | XMS_ITS | Encounter Summary ---
Author Organization [facility] Address [address] [place] [address]. [place], [place] [address] [place] [address] Care Team Providers Care Asl Interpreter Name Role Phone JaellowellSami cox DO Primary [...] on file Legal Sex Female 12:43 PM TECHNICAL SUPPORT 1 SOFTWARE ENGINEER Gender Identity Female 12/18/2021 6:31 AM [...] (Late Contact Info) Description 10/09/2024 9:30 AM TECHNICAL SUPPORT 1 SOFTWARE ENGINEER Office Visit [facility] [address] [place] [address] Carlos Farris MD Three [facility] [address] [place] [address] 11/02/2024 10:20 AM TECHNICAL SUPPORT 1 SOFTWARE ENGINEER Office Visit [facility] Medical Group Family & Internal Medicine - [place] [address] [place] [phone] Sami Liriano DO [address] [place] [address] documented as of this encounter Procedures Procedure Name Priority Date/Time Associated Diagnosis Comments OUTSIDE LAB (SCAN ORDER) Routine 03/04/2020 2:15 PM CDT documented in this encounter Results * OUTSIDE LAB (03/04/2020 2:15 PM CDT) 03/04/2020 2:15 PM CDT us Documents Scanned SCANNING Edited Result - Final [facility] [place] documented in this encounter Visit Diagnoses Not on filedocumented in this encounter Care Teams Asl Interpreter Relationship Specialty Start Date End Date Sami Liriano DO [address] [place] [address] PCP - General FAMILY PRACTICE 10/06/19 12/23/19 Sami Liriano DO [address] [place] [address] PCP - General FAMILY PRACTICE 12/24/19 documented as of this encounter
--- OUTSIDE RECORDS SUMMARY | 2024-09-19 19:49 | XMS_ITS | Encounter Summary ---
Author Organization [facility] Address [address] [place] [address]. [place], [place] [address] [place] [address] Care Team Providers Care Oil Well Drilling Manager Name Role Phone Sami Liriano DO [...] on file Legal Sex Female 12:43 PM ANNEALING OPERATOR Gender Identity Female 12/18/2021 6:31 AM [...] st Contact Info) Description 10/09/2024 9:30 AM ANNEALING OPERATOR Office Visit [facility]-[address] [address] Carlos Farris MD Three [facility] [address] [place] [address] 11/02/2024 10:20 AM ANNEALING OPERATOR Office Visit [facility] Family & Internal Medicine - [address] [address] Sami Liriano DO [address] [place] [address] documented as of this encounter Procedures Procedure [...] Edited Result - Final Performing Organization Address [facility] Co de Phone Number [facility] * OUTSIDE LAB (03/04/2020 2:18 PM CDT) 03/04/2020 2:18 PM CDT us Documents Scanned SCANNING Edited Result - Final Performing Organization Address [facility]/ZIP Co de Phone Number [facility] * IMAGE STUDY (12/18/2016 2:29 PM CDT) Anatomical Region Laterality Modality Other 12/18/2016 2:29 PM CDT us Documents Scanned SCANNING Edited Result - Final documented in this encounter Visit Diagnoses Not on filedocumented in this encounter Care Teams Oil Well Drilling Manager Relationship Specialty Start Date End Date Sami Liriano DO [address] [place] [address] PCP - General FAMILY PRACTICE 10/06/19 12/23/19 Sami Liriano DO [address] [place] [address] PCP - General FAMILY PRACTICE 12/24/19 documented as of this encounter
--- OUTSIDE RECORDS SUMMARY | 2024-09-19 19:49 | XMS_ITS | Encounter Summary ---
Author Organization [facility] Address [facility] [place], [place] [address] [place] [address] Care Team Providers Care Photographic Plate Maker Name Role Phone Sami Liriano DO Primary Care Provider + Sami Liriano DO Primary Care Provider + Encounter Details Date Type Department Care Team (Latest Contact Info) Description 01/15/2017 Scan [employer] INFO SRVCS Scanned, Documents Social History Tobacco [...] file Legal Sex Female 12:43 PM MANAGER BUSINESS PROCESS Gender Identity Female 12/18/2021 6:31 AM CDT Sexual Orientation Straight 01/15/2022 6: 11 AM CDT documented as of this encounter Plan of Treatment Upcoming Encounters Date Type Department Care Team (Late st Contact Info) Description 10/09/2024 9:30 AM MANAGER BUSINESS PROCESS Office Visit [facility]-[address] [address] Carlos Farris MD [facility] [address] [place] [address] 11/02/2024 10:20 AM MANAGER BUSINESS PROCESS Office Visit [facility] Medical Group Family & Internal Medicine - [place] [address] [place] [address] Sami Liriano DO [address] [place] [address] documented as of this encounter Visit Diagnoses Not on filedocumented in this encounter Care Teams Photographic Plate Maker Relationship Specialty [place] [address] [place] [address] PCP - General FAMILY PRACTICE 10/06/19 12/23/19 Sami Liriano DO [address] [place] [address] PCP - General FAMILY PRACTICE 12/24/19 documented as of this encounter
--- OUTSIDE RECORDS SUMMARY | 2024-09-19 19:49 | XMS_ITS | Encounter Summary ---
Author Organization [facility] Address [address] [place] [address]. [place], [place] [address] [place] [address] Care Team Providers Care Merchandise Support Associate Name Role Phone Sami Liriano DO [...] on file Legal Sex Female 12:43 PM LITERACY EDUCATION PROFESSOR Gender Identity Female 12/18/2021 6:31 AM [...] (Late Contact Info) Description 10/09/2024 9:30 AM LITERACY EDUCATION PROFESSOR Office Visit [facility] [address] [place] [address] Carlos Farris MD Three [facility] [address] [place] [address] 11/02/2024 10:20 AM LITERACY EDUCATION PROFESSOR Office Visit [facility] Medical Group Family & Internal Medicine - [place] [address] [place] [address] Sami Liriano DO [address] [place] [address] documented as of this encounter Procedures Procedure Name Priority Date/Time Associated Diagnosis Comments OUTSIDE LAB (SCAN ORDER) Routine 03/04/2020 2:22 PM CDT ECG GENERIC (SCAN ORDER) Routine 12/18/2016 2:30 PM CDT documented in this encounter Results * OUTSIDE LAB (03/04/2020 2:22 PM CDT) 03/04/2020 2:22 PM CDT us Documents Scanned SCANNING Edited Result - Final Performing Organization Address [facility] Co de Phone Number [facility] * ECG (12/18/2016 2:30 PM CDT) 12/18/2016 2:30 PM CDT us Documents Scanned SCANNING Edited Result - Final Performing Organization Address [facility]/ZIP Co de Phone Number [facility] documented in this encounter Visit Diagnoses Not on filedocumented in this encounter Care Teams Merchandise Support Associate Relationship Specialty Start Date End Date Sami Liriano DO [address] [place] [address] PCP - General FAMILY PRACTICE 10/06/19 12/23/19 Sami Liriano DO [address] [place] [address] PCP - General FAMILY PRACTICE 12/24/19 documented as of this encounter
--- OUTSIDE RECORDS SUMMARY | 2024-09-19 19:49 | XMS_ITS | Encounter Summary ---
Author Organization [facility] Address [address] [place] [address]. [place], [place] [address] [place] [address] Care Team Providers Care Residential Program Director Name Role Phone JaellowellSami cox DO Primary [...] on file Legal Sex Female 12:43 PM NEONATAL DOCTOR Gender Identity Female 12/18/2021 6:31 AM [...] ( Contact Info) Description 10/09/2024 9:30 AM NEONATAL DOCTOR Office Visit [facility] [address] [place] [address] Carlos Farris MD [facility] [address] [place] [address] 11/02/2024 10:20 AM NEONATAL DOCTOR Office Visit [facility] Medical Group Family & Internal Medicine - [place] [address] [place] [address] Sami Liriano DO [address] [place] [address] documented as of this encounter Procedures Procedure Name Priority Date/Time Associated Diagnosis Comments OUTSIDE LAB (SCAN ORDER) Routine 03/04/2020 2:19 PM CDT documented in this encounter Results * OUTSIDE LAB (03/04/2020 2:19 PM CDT) 03/04/2020 2:19 PM CDT us Documents Scanned SCANNING Edited Result - Final [facility] [place] documented in this encounter Visit Diagnoses Not on filedocumented in this encounter Care Teams Residential Program Director Relationship Specialty Start Date End Date Sami Liriano DO [address] [place] [address] PCP - General FAMILY PRACTICE 10/06/19 12/23/19 Sami Liriano DO [address] [place] [address] PCP - General FAMILY PRACTICE 12/24/19 documented as of this encounter
--- OUTSIDE RECORDS SUMMARY | 2024-09-19 19:49 | XMS_ITS | Encounter Summary ---
Author Organization [facility] Address [facility]6 [facility] [place], [place] [address] [place] [address] Care Team Providers Care Hydraulic Press Servicer Name Role Phone Sami Liriano DO Primary Care Provider + Sami Liriano DO Primary Care Provider + Encounter Details Date Type Department Care Team (Latest Contact Info) Description 02/13/2016 Scan [employer] INFO SRVCS Scanned, Documents Social History Tobacco [...] file Legal Sex Female 12:43 PM SPECIAL DELIVERY WORKER Gender Identity Female 12/18/2021 6:31 AM CDT Sexual Orientation Straight 01/15/2022 6: 11 AM CDT documented as of this encounter Plan of Treatment Upcoming Encounters Date Type Department Care Team (Late st Contact Info) Description 10/09/2024 9:30 AM SPECIAL DELIVERY WORKER Office Visit [facility] [address] Carlos Farris MD [facility] [address] [place] [address] 11/02/2024 10:20 AM SPECIAL DELIVERY WORKER Office Visit [facility] Family & Internal Medicine - [place] [address] [place] [address] Sami Liriano DO [address] [place] [address] documented as of this encounter Visit Diagnoses Not on filedocumented in this encounter Care Teams Hydraulic Press Servicer Relationship Specialty [place] [address] [place] [address] PCP - General FAMILY PRACTICE 10/06/19 12/23/19 Sami Liriano DO [address] [place] [address] PCP - General FAMILY PRACTICE 12/24/19 documented as of this encounter
--- OUTSIDE RECORDS SUMMARY | 2024-09-19 19:49 | XMS_ITS | Encounter Summary ---
Author Organization [facility] Address [facility]6 [facility]. [place], [place] [address] [place] [address] Care Team Providers Care Replanter Name Role Phone Sami Liriano DO Primary Care Provider + Sami Liriano DO Primary Care Provider + Encounter Details Date Type Department Care Team (Latest Contact Info) Description 11/30/2015 Scan [employer] INFO SRVCS Scanned, Documents Social History Tobacco [...] on file Legal Sex Female 12:43 PM PSYCHOLOGIST DEVELOPMENTAL Gender Identity Female 12/18/2021 6:31 AM CDT Sexual Orientation Straight 01/15/2022 6: 11 AM CDT documented as of this encounter Plan of Treatment Upcoming Encounters Date Type Department Care Team (Late st Contact Info) Description 10/09/2024 9:30 AM PSYCHOLOGIST DEVELOPMENTAL Office Visit [facility] [address] Carlos Farris MD [facility] [address] [place] [address] 11/02/2024 10:20 AM PSYCHOLOGIST DEVELOPMENTAL Office Visit [facility] Family & Internal Medicine - [place] [address] [place] [address] Sami Liriano DO [address] [place] [address] documented as of this encounter Visit Diagnoses Not on filedocumented in this encounter Care Teams Replanter Relationship Specialty [place] [address] [place] [address] PCP - General FAMILY PRACTICE 10/06/19 12/23/19 Sami Liriano DO [address] [place] [address] PCP - General FAMILY PRACTICE 12/24/19 documented as of this encounter
--- OUTSIDE RECORDS SUMMARY | 2024-09-19 19:49 | XMS_ITS | Encounter Summary ---
Author Organization [facility] Address [address] [place] [address]. [place], [place] [address] [place] [address] Care Team Providers Care Set Up Worker Name Role Phone Sami Liriano DO [...] on file Legal Sex Female 12:43 PM LUBE ATTENDANT Gender Identity Female 12/18/2021 6:31 AM [...] ( Contact Info) Description 10/09/2024 9:30 AM LUBE ATTENDANT Office Visit [facility] [address] [place] [address] Carlos Farris MD [facility] [address] [place] [address] 11/02/2024 10:20 AM LUBE ATTENDANT Office Visit [facility] Family & Internal Medicine - [place] [address] [place] [address] Sami Liriano DO [address] [place] [address] documented as of this encounter Procedures Procedure Name Priority Date/Time Associated Diagnosis Comments OUTSIDE LAB (SCAN ORDER) Routine 03/04/2020 1:38 PM CDT documented in this encounter Results * OUTSIDE LAB (03/04/2020 1:38 PM CDT) 03/04/2020 1:38 PM CDT us Documents Scanned SCANNING Final Result Performing Organization Address City/State/[facility] Co de Phone Number [facility] documented in this encounter Visit Diagnoses Not on filedocumented in this encounter Care Teams Set Up Worker Relationship Specialty Start Date End Date Sami Liriano DO [address] [place] [address] PCP - General FAMILY PRACTICE 10/06/19 12/23/19 Sami Liriano DO [address] [place] [address] PCP - General FAMILY PRACTICE 12/24/19 documented as of this encounter
--- OUTSIDE RECORDS SUMMARY | 2024-09-19 19:49 | XMS_ITS | Encounter Summary ---
Author Organization [facility] Address [address] [place] [address]. [place], [place] [address] [place] [address] Care Team Providers Care Supervisor Electronic Testing Name Role Phone Sami Liriano DO Primary [...] on file Legal Sex Female 12:43 PM HOT MILL ROLLER Gender Identity Female 12/18/2021 6:31 AM CDT [...] ( Contact Info) Description 10/09/2024 9:30 AM HOT MILL ROLLER Office Visit [facility] [address] [place] [address] Carlos Farris MD Three [facility] [address] [place] [address] 11/02/2024 10:20 AM HOT MILL ROLLER Office Visit [facility] Family & Internal Medicine - [place] [address] [place] [address] Sami Liriano DO [address] [place] [address] documented as of this encounter Procedures Procedure Name Priority Date/Time Associated Diagnosis Comments OUTSIDE LAB (SCAN ORDER) Routine 03/04/2020 3:07 PM CDT OUTSIDE LAB (SCAN ORDER) Routine 03/04/2020 2:01 PM CDT documented in this encounter Results * OUTSIDE LAB (03/04/2020 3:07 PM CDT) 03/04/2020 3:07 PM CDT us Documents Scanned SCANNING Edited Result - Final Performing Organization Address [facility] Co de Phone Number [facility] * OUTSIDE LAB (03/04/2020 2:01 PM CDT) 03/04/2020 2:01 PM CDT us Documents Scanned SCANNING Edited Result - Final Performing Organization Address [facility]/ZIP Co de Phone Number [facility] documented in this encounter Visit Diagnoses Not on filedocumented in this encounter Care Teams Supervisor Electronic Testing Relationship Specialty Start Date End Date Sami Liriano DO [address] [place] [address] PCP - General FAMILY PRACTICE 10/06/19 12/23/19 Sami Liriano DO [address] [place] [address] PCP - General FAMILY PRACTICE 12/24/19 documented as of this encounter
--- OUTSIDE RECORDS SUMMARY | 2024-09-19 19:49 | XMS_ITS | Encounter Summary ---
Author Organization [facility] Address [address] [place] [address]. [place], [place] [address] [place] [address] Care Team Providers Care Bullet Charging Machine Operator Name Role Phone JaellowellSami cox DO Primary [...] on file Legal Sex Female 12:43 PM TAKER DOWN Gender Identity Female 12/18/2021 6:31 AM CDT [...] (Late Contact Info) Description 10/09/2024 9:30 AM TAKER DOWN Office Visit [facility] [address] [place] [address] Carlos Farris MD Three [facility] Suite [facility] [place] [address] 11/02/2024 10:20 AM TAKER DOWN Office Visit [facility] Family & Internal Medicine - [place] [address] [place] [address] Sami Liriano DO [address] [place] [address] documented as of this encounter Procedures Procedure Name Priority Date/Time Associated Diagnosis Comments STRESS TEST (SCAN ORDER) Routine 02/15/2015 2:45 PM CDT documented in this encounter Results * STRESS TEST (02/15/2015 2:45 PM CDT) 02/15/2015 2:45 PM CDT us Documents Scanned SCANNING Edited Result - Final [facility] [place] documented in this encounter Visit Diagnoses Not on filedocumented in this encounter Care Teams Bullet Charging Machine Operator Relationship Specialty Start Date End Date Sami Liriano DO [address] [place] [address] PCP - General FAMILY PRACTICE 10/06/19 12/23/19 Sami Liriano DO [address] [place] [address] PCP - General FAMILY PRACTICE 12/24/19 documented as of this encounter
--- OUTSIDE RECORDS SUMMARY | 2024-09-19 19:49 | XMS_ITS | Encounter Summary ---
Author Organization [facility] Address [facility]6 [facility]. [address] [place] [address] Care Team Providers Care Grease Rack Worker Name Role Phone Sami Liriano DO Primary Care Provider + Sami Liriano DO Primary Care Provider + Encounter Details Date Type Department Care Team (Latest Contact Info) Description 01/17/2017 Scan [employer] INFO SRVCS Scanned, Documents Social History [...] file Legal Sex Female 12:43 PM METAL WIRE COATING OPERATOR Gender Identity Female 12/18/2021 6:31 AM CDT Sexual Orientation Straight 01/15/2022 6: 11 AM CDT documented as of this encounter Plan of Treatment Upcoming Encounters Date Type Department Care Team (Late st Contact Info) Description 10/09/2024 9:30 AM METAL WIRE COATING OPERATOR Office Visit [facility] [address] Carlos Farris MD [facility] [address] [place] [address] 11/02/2024 10:20 AM METAL WIRE COATING OPERATOR Office Visit [facility] Family & Internal Medicine - [place] [address] [place] [address] Sami Liriano DO [address] [place] [address] documented as of this encounter Visit Diagnoses Not on filedocumented in this encounter Care Teams Grease Rack Worker Relationship Specialty [place] [address] [place] [address] PCP - General FAMILY PRACTICE 10/06/19 12/23/19 Sami Liriano DO [address] [place] [address] PCP - General FAMILY PRACTICE 12/24/19 documented as of this encounter
--- OUTSIDE RECORDS SUMMARY | 2024-09-19 19:49 | XMS_ITS | Encounter Summary ---
Author Organization [facility] Address [facility]6 [facility] [place], [place] [address] [place] [address] Care Team Providers Care Acid Dipper Name Role Phone Sami Liriano DO Primary Care Provider + Sami Liriano DO Primary Care Provider + Encounter Details Date Type Department Care Team (Latest Contact Info) Description 07/02/2001 Scan [employer] INFO SRVCS Scanned, Documents Social History Tobacco [...] on file Legal Sex Female 12:43 PM HYDROGRAPHIC SURVEYOR Gender Identity Female 12/18/2021 6:31 AM CDT Sexual Orientation Straight 01/15/2022 6: 11 AM CDT documented as of this encounter Plan of Treatment Upcoming Encounters Date Type Department Care Team (Late st Contact Info) Description 10/09/2024 9:30 AM HYDROGRAPHIC SURVEYOR Office Visit [facility] [address] Carlos Farris MD [facility] [address] [place] [address] 11/02/2024 10:20 AM HYDROGRAPHIC SURVEYOR Office Visit [facility] Family & Internal Medicine - [place] [address] [place] [address] Sami Liriano DO [address] [place] [address] documented as of this encounter Visit Diagnoses Not on filedocumented in this encounter Care Teams Acid Dipper Relationship Specialty [place] [address] [place] [address] PCP - General FAMILY PRACTICE 10/06/19 12/23/19 Sami Liriano DO [address] [place] [address] PCP - General FAMILY PRACTICE 12/24/19 documented as of this encounter
== END 2024-09-14 10:54 | disposition home or self-care (01) ==
PROVIDERS: Emergency Provider Emergency Medicine; PCP Student in an Organized Health Care Education/Training Program
DX: N39.0 Urinary tract infection, site not specified (principal); Z20.822 Contact with and (suspected) exposure to COVID-19; I10 Essential (primary) hypertension; J45.909 Unspecified asthma, uncomplicated; Z79.899 Other long term (current) drug therapy
CPT/HCPCS: 36415; 71046; 80053; 81001; 83605; 85025; 85610; 85730; 86140; 87040; 87086; 87636; 99283

== ENCOUNTER 2024-09-29 08:11 | Outpatient (CLI) | payer MEDICARE, SELFPAY ==
--- NOTE | 2024-09-30 22:23 | P.PCNPFT_ITS ---
PFT Procedure Performed PFT Procedure Performed Spirometry with Pre/Post Bronchodilator Plethysmography (Lung Vol) Diffusing Cap (DLCO) Flow Vol Loop PFT Interpretation DOS: 09/29/2024 REQUESTING: Sami Liriano DO REASON FOR TESTING: Chronic mucopurulent bronchitis PULMONARY FUNCTION TESTS Results are reliable and reproducible. Repeatability of spirometry FEV1 maneuver pre and post bronchodilator is Grade A. Spirometry: The pre-bronchodilator FEV1 is 1.43 L, 75%, normal. The pre-bro nchodilator FVC is 1.90 L, 79%, normal. The FEV1/FVC ratio is 75%, normal. After bronchodilator, the FEV1 is 1.60 L, 85%, +13%. The FVC is 2.04 L, 84%, +7%. The FEV1/FVC ratio is 79%. Lung volumes: The total lung capacity is 3.99 L, 90%, normal. The residual volume is 1.74 L, 87%, normal. The RV/TLC is 44%, normal. FRC is 1.99 L, 79%, normal. Airway resistance is increased. Diffusion: DLCO is 12.5, 67%, normal. The DLCO/VA is 4.10, 92%, normal. Flow volume loop: The flow volume loop is normal. IMPRESSION: Spirometry shows normal values with a mild response to bronchodilator, does not reach statistically significant criteria as the absolute value increases less than 200 mL. Normal lung volumes and normal diffusion. Lack of response to bronchodilator should not preclude use if cli nically indicated. There are no prior studies to compare. Eli Olson MD
== END 2024-09-29 08:12 | disposition home or self-care (01) ==
LOC: ANHPFT 08:15
PROVIDERS: PCP Student in an Organized Health Care Education/Training Program; Visit Provider Student in an Organized Health Care Education/Training Program
DX: J41.1 Mucopurulent chronic bronchitis (principal)
CPT/HCPCS: 94060; 94726; 94729

== ENCOUNTER 2025-03-16 11:49 | Emergency (ER) | payer OTHER, SELFPAY ==
[2025-03-16] VITALS (7 sets, daily range): BP systolic 144–158; BP diastolic 66–79; PULSE 76–87; RESP 13–21; TEMP 36.8; O2SAT 93–96
--- NOTE | ~2025-03-16 | XR_ITS ---
XR chest 2V Ordering provider: Lopez Grissom MD History: 70 years Female with . sob . Comparison: September 14, 2024 FINDINGS: MEDIASTINUM: The cardiac silhouette is slightly enlarged. Slightly prominent radha. LUNGS: No infiltrates, effusions or pneumothorax. OTHER: No free air under the diaphragm. IMPRESSION: No acute cardiopulmonary pathology. Reviewed, dictated and finalized at location A.
--- NOTE | 2025-03-16 12:29 | ECG_ITS ---
Test Date: 2025-03-16 12:52:48 Measurements Intervals [place] Rate: 76 P: 64 UT: 212 QRS: 47 QRSD: 102 T: 69 QT: 417 QTc: 471 Interpretive Statements SINUS RHYTHM WITH FIRST DEGREE AV BLOCK WITH OCCASIONAL VENTRICULAR PREMATURE COMPLEXES NONSPECIFIC T-WAVE ABNORMALITY- HIGH LATERAL LEADS BASELINE ARTIFACT- II, III, AVR, AVL, AVF, V5 BORDERLINE ECG No previous ECG available for comparison Electronically Signed On 03-16-2025 12:56:14 CDT by Harsha Leblanc D.O.
--- OUTSIDE RECORDS SUMMARY | 2025-03-16 12:53 | XMS_ITS | Clinical Summary ---
Author Organization [facility] al Address [address] [place] [address] Care Team Providers Care Bread Supervisor Name Role Phone Sami Liriano DO Primary Care Provide r Allergies Active Allergy Reactions Criticality Noted Date Comments Chocolate Vision changes Medium 11/05/2024 Penicillins Rash Medium 11/05/2024 Sulfa Rash Medium 11/05/2024 Medications No known medications Active Problems No known active problems Immunizations Immunization Administration Dates Next Due Tdap 11/05/2024 Social History Tobacco Use Types Packs/Day Years Used Date Smoking Tobacco: Never Assessed Personal Safety Answer Date Recorded Have you ever been in or are you currently in a harmful physical or emotional relationship or is someone making you feel afraid or unsafe? Denies 11/05/2024 Comments Unknown Sex and Gender Information Value Date Recorded Sex Assigned at Not on file Legal Sex Female 12:51 PM MONITOR AND STORAGE BIN TENDER Gender Identity Not on file Sexual Orientation Not on file Obstetrics History Last Filed Vital Signs Vital Sign [place] Time Taken Comments Blood Pressure 174/82 11/05/2024 9:33 AM MONITOR AND STORAGE BIN TENDER Pulse 75 11/05/2024 9:33 AM MONITOR AND STORAGE BIN TENDER Temperature 36.7 C (98 F) 11/05/2024 11:01 AM MONITOR AND STORAGE BIN TENDER Respiratory Rate 16 11/05/2024 11:06 AM MONITOR AND STORAGE BIN TENDER Oxygen Saturation 95% 11/05/2024 9:33 AM MONITOR AND STORAGE BIN TENDER Inhaled Oxygen Concentration - - Weight 111.1 kg (245 lb) 11/05/2024 9:33 AM MONITOR AND STORAGE BIN TENDER Height 152.4 cm (5') 11/05/2024 9:33 AM MONITOR AND STORAGE BIN TENDER Body Mass Index 47.85 11/05/2024 9:33 AM MONITOR AND STORAGE BIN TENDER Plan of Treatment Health Maintenance Due Date Last Done Comments Colon Cancer Screening-Colonoscopy 1953 Depression Screening 1953 Fall Risk Assessment 1953 Hepatitis C Screening 1955 Osteoporosis Screening-Bone Density Scan 1953 Hepatitis B Screening 1971 Zoster Vaccine (1 of 2) 2003 Breast Cancer Screening-Mammogram 10/31/2013 013 Well Visit 65+ 2018 Influenza Vaccine (Season Ended) 2025 DTaP/Tdap/Td Vaccine (3 - Td or Tdap) 11/05/203402/2025, 06/30/2011 Pneumococcal vaccine 65+ Completed 09/19/2021, 03/2020 Procedures Procedure Name Priority Date/Time Associated Diagnosis Comments SCREENING MAMMOGRAM Routine 10/31/2012 2 :31 PM MONITOR AND STORAGE BIN TENDER from Last 3 Months or Most Recently Relevant to Health Maintenance Results * Screening Mammogram (10/31/2012 2:31 PM MONITOR AND STORAGE BIN TENDER) Anatomical Region Laterality Modality Breast N/A Mammography 10/31/2012 2:31 PM MONITOR AND STORAGE BIN TENDER Narrative 11/04/2012 2:47 PM MONITOR AND STORAGE BIN TENDER ALEXIS PRYOR MD, PHD FINAL REPORT ACC# Date Time Exam [id number] Oct 31, 2012 14:31:00 BMV [id number] [place] Screening Mamm Technologist(s): Laura Arora; ; EXAMINATION: Mammogram Findings: A Full-Field Digital Screening Mammogram was performed. Views obtained: bilateral craniocaudal; bilateral mediolateral oblique. Computer Aided Detection was performed with [employer] Club, version 9.2. There are scattered fibroglandular densities. There is no suspicious abnormality in either breast. IMPRESSION: Annual screening mammography is recommended. OVERALL FINAL ASSESSMENT: BI-RADS CATEGORY 1: Negative. Requested By: REFERRAL,SELF Dictated By: ALEXIS PRYOR MD, PHD on Nov 04 2012 2:47P This document has been electronically signed by: ALEXIS PRYOR MD, PHD on Nov 04 2012 2:47P Procedure Note Provider, MD Berny - 01/18/2017 ALEXIS PRYOR MD, PHD FINAL REPORT ACC# Date Time Exam [id number] Oct 31, 2012 14:31:00 BMV [id number] [place] Screening Mamm Technologist(s): Laura Arora; ; EXAMINATION: Mammogram Findings: A Full-Field Digital Screening Mammogram was performed. Views obtained: bilateral craniocaudal; bilateral mediolateral oblique. Computer Aided Detection was performed with [employer] Club, version 9.2. There are scattered fibroglandular densities. There is no suspicious abnormality in either breast. IMPRESSION: Annual screening mammography is recommended. OVERALL FINAL ASSESSMENT: BI-RADS CATEGORY 1: Negative. Requested By: REFERRAL,SELF Dictated By: ALEXIS PRYOR MD, PHD on Nov 04 2012 2:47P This document has been electronically signed by: ALEXIS PRYOR MD, PHD on Nov 04 2012 2:47P Historical Provider IMG MAMMO PROCEDURES Mariya l Result from Last 3 Months or Most Recently Relevant to Health Maintenance Insurance [facility] Care Teams Bread Supervisor Relationship Specialty Start Date End Date Sami Liriano DO [address] [place] [address] PCP - General Family Medicine 11/05/24
--- OUTSIDE RECORDS SUMMARY | 2025-03-16 12:53 | XMS_ITS | Referral Summary ---
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 Refinery Worker Name Role Phone Sami Liriano DO [...] on file Legal Sex Female 12:51 PM AUDITOR IN CHARGE Gender Identity Not on file Sexual Orientation Not on file Last Filed Vital Signs Vital Sign [place] Time Taken Comments Blood Pressure 174/82 11/05/2024 9:33 AM AUDITOR IN CHARGE Pulse 75 11/05/2024 9:33 AM AUDITOR IN CHARGE Temperature 36.7 C (98 F) 11/05/2024 11:01 AM AUDITOR IN CHARGE Respiratory Rate 16 11/05/2024 11:06 AM AUDITOR IN CHARGE Oxygen Saturation 95% 11/05/2024 9:33 AM AUDITOR IN CHARGE Inhaled Oxygen Concentration - - Weight 111.1 kg (245 lb) 11/05/2024 9:33 AM AUDITOR IN CHARGE Height 152.4 cm (5') 11/05/2024 9:33 AM AUDITOR IN CHARGE Body Mass Index 47.85 11/05/2024 9:33 AM AUDITOR IN CHARGE Plan of Treatment Not on file Procedures Procedure Name Priority Date/Time Associated Diagnosis Comments SCREENING MAMMOGRAM Routine 10/31/2012 2 :31 PM AUDITOR IN CHARGE from Last 3 Months or Most Recently Relevant to Health Maintenance Results * Screening Mammogram (10/31/2012 2:31 PM AUDITOR IN CHARGE) Anatomical Region Laterality Modality Breast N/A Mammography 10/31/2012 2:31 PM AUDITOR IN CHARGE Narrative 11/04/2012 2:47 PM AUDITOR IN CHARGE ALEXIS PRYOR MD, PHD FINAL REPORT ACC# Date Time Exam [id number] Oct 31, 2012 14:31:00 BMV [id number] [place] Screening Mamm Technologist(s): Laura Arora; ; EXAMINATION: Mammogram Findings: A Full-Field Digital Screening Mammogram was performed. Views obtained: bilateral craniocaudal; bilateral mediolateral oblique. Computer Aided Detection was performed with R2, version 9.2. There are scattered fibroglandular densities. [...] PHD FINAL REPORT ACC# Date Time Exam [id number] Oct 31, 2012 14:31:00 BMV [id number] [place] Screening Mamm Technologist(s): Laura Arora; ; EXAMINATION: Mammogram Findings: A Full-Field Digital Screening Mammogram was performed. Views obtained: bilateral craniocaudal; bilateral mediolateral oblique. Computer Aided Detection was performed with R2, version 9.2. There are scattered fibroglandular densities. There is no suspicious abnormality in either breast. IMPRESSION: Annual screening mammography is recommended. OVERALL FINAL ASSESSMENT: BI-RADS CATEGORY 1: Negative. Requested By: REFERRAL,SELF Dictated By: ALEXIS PRYOR MD, PHD on Nov 04 2012 2:47P This document has been electronically signed by: ALEXIS PRYOR MD, PHD on Nov 04 2012 2:47P us Historical Provider MD GUY MAMMO PROCEDURES Mariya l Result from Last 3 Months or Most Recently Relevant to Health Maintenance Insurance Member Subscriber Plan / Payer ( fective 2024-Present) Name:Arie Toyingayle Lu Relation to Subscriber:Self Name:Toyin Sargentn Payer ID:[id number] (NAIC) Type:MEDICARE RISK OTHER Address: [place] [id number] Care Teams Petroleum Refinery Worker Relationship Specialty Start Date End Date Sami Liriano DO [address] [place] [address] PCP - General Family Medicine 11/05/24
[2025-03-16 13:03] LABS: Basophils Absolute Auto 0.1 K/mm3 (0.0-0.1); Basophils Percent Auto 0.4 % (0.2-1.2); Eosinophils Absolute Auto 0.1 K/mm3 (0-0.3); Eosinophils Percent Auto 0.5 % (0-4.4); Hematocrit 38.9 % (37.0-47.0); Hemoglobin 12.7 g/dL (12.0-15.0); Immature Granulocyte Absolute 0.05 K/mm3 (0.00-0.031); Immature Granulocyte Percent A 0.4 % (0-0.5); Lymphocytes Absolute Auto 2.07 K/mm3 (0.9-3.2); Lymphocytes Percent Auto 15.4 % (18.3-44.2); Mean Corpuscular HGB Conc 32.6 g/dl (32-36); Mean Corpuscular Hemoglobin 28.5 pg (26-34); Mean Corpuscular Volume 87.2 fl (80-100); Mean Platelet Volume 9.4 fl (7.4-10.4); Monocytes Absolute Auto 0.8 K/mm3 (0.1-0.6); Neutrophils Absolute Auto 10.4 K/mm3 (1.3-6.7); Neutrophils Percent Auto 77.3 % (45.5-73.1); Platelet Count Result 223 k/mm3 (150-375); Red Blood Count 4.46 M/mm3 (4.2-5.4); Red Cell Distribution Width 14.8 % (11.5-14.5); White Blood Count 13.5 K/mm3 (4.5-10.0)
[2025-03-16] MEDS: LORazepam INJ (*CRX) 2 MG/ML VIAL 0.5 MG IV PUSH (13:03)
[2025-03-16 13:12] LABS: Alanine Aminotransferase 18 U/L (6-35); Albumin Level 4.6 g/dL (3.5-5.1); Alkaline Phosphatase 110 U/L (38-126); Anion Gap 12 mmol/L (4-12); Aspartate Amino Transferase 28 U/L (14-36); Bilirubin,Total 1.5 mg/dL (0.2-1.3); Blood Urea Nitrogen 37 mg/dL (7-17); Calcium 9.7 mg/dL (8.4-10.2); Carbon Dioxide 28 mmol/L (22-30); Chloride 98 mmol/L (98-107); Estimated CRCL calculation 26 ml/min; Estimated Glomerular Filt Rate 25; Glucose 112 mg/dL (65-110); Potassium 3.9 mmol/L (3.4-5.0); Sodium 138 mmol/L (137-145)
[2025-03-16 14:04] LABS: NT Pro B Type Natriuretic Pept 160 pg/mL (19.9-100)
[2025-03-16] MEDS: SODIUM CHLORIDE 0.9% IV 1,000 ML 999 ML IV CONT (14:10)
[2025-03-16 14:19] LABS: Add Urine Microscopic? NO; Appearance Urine Clear (Clear); Bilirubin Urine Negative (Negative); Blood Urine Negative (Negative); Color Urine Yellow (Yellow); Glucose Urine UA Trace mg/dL (Negative); Ketones Urine Negative (Negative); Leukocyte Esterase Ur Negative LEU/UL (Negative); Nitrate Urine Negative (Negative); Protein Urine Negative (Negative); Specific Grav Ur 1.008 (1.001-1.035); Urobilinogen Urine 0.2 mg/dL (<2.0); pH Urine 6.5 (5.0-9.0)
--- NOTE | 2025-03-16 15:44 | ED_ITS ---
HPI - General Adult General Chief complaint: Unspecified Stated complaint: insides quivering tremors Time Seen by Provider: 03/16/25 12:11 Source: patient Mode of arrival: ambulatory Limitations: no limitations History of Present Illness HPI narrative: 70-year-old with a history of hypertension, son chest, CKD here with the complaints of not feeling well waiting sensation in her chest and labs which started few hours ago. She denies any shortness of breath. No history of fever or chills denies any nausea vomiting or abdominal pain. Onset (ago): hour(s) Severity: moderate Relieving factors: none Exacerbating factors: none Associated symptoms: denies other symptoms Related Data Home Medications ?Medication ?Instructions ?Recorded ?Confirmed ?Last Taken ?Type atorvastatin 10 mg tablet 10 mg PO DAILY 05/19/21 05/19/21 Unknown History escitalopram oxalate 20 mg tablet 20 mg PO DAILY 05/19/21 05/19/21 Unknown History metoprolol succinate 50 mg 50 mg PO DAILY 05/19/21 05/19/21 Unknown History tablet,extended release 24 hr fluticasone fur. 200 mcg-umeclid 1 inh inhalation DAILY 09/28/24 09/28/24 Unknown History 62.5 mcg-vilant 25 mcg inhalat.powder (Trelegy Ellipta) potassium chloride 10 mEq 100 meq PO DAILY 09/28/24 09/28/24 Unknown History tablet,extended release tirzepatide 2.5 mg/0.5 mL mg subcut 09/28/24 09/28/24 Unknown History subcutaneous pen injector (Mounjaro) torsemide 20 mg tablet 40 mg PO BID 09/28/24 09/28/24 Unknown History Allergies Allergy/AdvReac Type Severity Reaction Status Date / Time Sulfa (Sulfonamide Allergy Mild RASH ALL Verified 03/16/25 11:52 Antibiotics) OVER Penicillins Allergy Unknown RASH ALL Verified 03/16/25 11:52 OVER chocolate AdvReac Intermediate Headache Verified 03/16/25 11:52 Review of Systems 2 Review of Systems: All systems reviewed & are unremarkable except as noted in HPI and below Constitutional: Constitutional: Reports no additional constitutional complaints Eyes: Eyes: Reports no additional eye complaints ENT: Reports system reviewed and no additional complaints, except as documented Cardiovascular: Cardiovascular: Reports no additional cardiovascular complaints Respiratory: Respiratory: Reports no additional respiratory complaints Gastrointestinal: Gastrointestinal: Reports no additional gastrointestinal complaints Musculoskeletal: Musculoskeletal: Reports no additional musculoskeletal complaints Neurologic: Reports system reviewed and no additional complaints, except as documented PMFSH Past Medical History Medical History CHF (congestive heart failure) Generalized osteoarthritis of multiple sites Inflammatory arthritis HLD (hyperlipidemia) CKD (chronic kidney disease) Asthma Hypertension Surgical History Surgical History History of total knee arthroplasty History of tonsillectomy H/O: hysterectomy H/O hernia repair Family History Family History Mother Alzheimer disease Father Heart disease Acute myocardial infarction Alzheimer disease Sibling Malignant neoplasm of prostate Son Diabetes mellitus Hypertension Cerebrovascular accident Social History Social History Smoking packs per day: 0.5 Smoking cigarettes per day: 10.0 Years smoked: 12 Smoking pack-years: 6.00 Smoking status: Former smoker Tobacco type: cigarettes Smoking end date: 09/30/76 Gender identity (if verbalized by the patient): Female Exam 2 Narrative: GENERAL: Well-appearing, well-nourished, and in no acute distress. HEAD: Normocephalic, atraumatic. EYES: PERRLA and EOMI. ENT: Nares clear, no rhinorrhea or epistaxis. Mucous membranes moist. NECK: Supple. CHEST: Clear to auscultation. No respiratory distress. HEART: Regular rate and rhythm. No murmur heard. Normal peripheral pulses. ABDOMEN: Soft, nontender, nondistended, normal active bowel sounds. EXTREMITIES: Normal range of motion. No edema. SKIN: Warm, dry, no rash. NEURO: No focal deficits. Alert and oriented x3. PSYCH: Normal mood and affect. Course Course Emergency Course: Patient feeling much better has informed her about the lab work, x-ray findings. Advised to continue home medication patient tolerated the primary doctor Vital Signs Vital signs: Vital Signs Temperature 36.8 C 03/16/25 11:46 Pulse Rate 87 03/16/25 11:46 Respiratory Rate 16 03/16/25 11:46 Blood Pressure 158/79 H 03/16/25 11:46 Pulse Oximetry 96 03/16/25 11:46 Temperature 36.8 C 03/16/25 11:46 Pulse Rate 77 03/16/25 15:01 Respiratory Rate 16 03/16/25 15:01 Blood Pressure 147/70 H 03/16/25 15:01 Pulse Oximetry 96 03/16/25 15:01 Medical Decision Making MDM Narrative Medical decision making narrative: Was 70-year-old history of hypertension hyperlipidemia sudden onset of caring since patient denied chest and feeling anxious will do lab work give her 0.5 Ativan IV who Differential Diagnosis Differential Diagnosis: Palpitation, anxiety, dehydration, CHF Medical Records Medical records reviewed: Yes I reviewed the external patient's medical records. Vital Signs Vital Signs: Vital Signs Temperature 36.8 C 03/16/25 11:46 Pulse Rate 87 03/16/25 11:46 Respiratory Rate 16 03/16/25 11:46 Blood Pressure 158/79 H 03/16/25 11:46 Pulse Oximetry 96 03/16/25 11:46 Temperature 36.8 C 03/16/25 11:46 Pulse Rate 77 03/16/25 15:01 Respiratory Rate 16 03/16/25 15:01 Blood Pressure 147/70 H 03/16/25 15:01 Pulse Oximetry 96 03/16/25 15:01 Lab Data Lab results reviewed: Yes I reviewed the patient's lab results. 03/16/25 12:56 03/16/25 12:56 Labs: Lab Results 03/16/25 03/16/25 Range/Units 12:56 14:12 WBC 13.5 H (4.5-10.0) K/mm3 RBC 4.46 (4.2-5.4) M/mm3 Hgb 12.7 (12.0-15.0) g/dL Hct 38.9 (37.0-47.0) % MCV 87.2 (80-100) fl MCH 28.5 (26-34) pg MCHC 32.6 (32-36) g/dl RDW 14.8 H (11.5-14.5) % Plt Count 223 (150-375) k/mm3 MPV 9.4 (7.4-10.4) fl Immature Gran % (Auto) 0.4 (0-0.5) % Neut % (Auto) 77.3 H (45.5-73.1) % Lymph % (Auto) 15.4 L (18.3-44.2) % [place] % (Auto) 6.0 (2.6-8.5) % Eos % (Auto) 0.5 (0-4.4) % Baso % (Auto) 0.4 (0.2-1.2) % Lymph # (Auto) 2.07 (0.9-3.2) K/mm3 [place] # (Auto) 0.8 H (0.1-0.6) K/mm3 Eos # (Auto) 0.1 (0-0.3) K/mm3 Baso # (Auto) 0.1 (0.0-0.1) K/mm3 Abs Immat Gran (auto) 0.05 H (0.00-0.031) K/mm3 Absolute Neuts (auto) 10.4 H (1.3-6.7) K/mm3 Absolute Nucleated RBC 0.000 (0.0-0.012) K/mm3 Nucleated RBC % 0.0 (0.0-0.2) % Sodium 138 (137-145) mmol/L Potassium 3.9 (3.4-5.0) mmol/L Chloride 98 (98-107) mmol/L Carbon Dioxide 28 (22-30) mmol/L Anion Gap 12 (4-12) mmol/L BUN 37 H D (7-17) mg/dL Creatinine 1.97 H (0.7-1.0) mg/dL Estim Creat Clear Calc 26 ml/min Estimated GFR 25 L (59 - ) Glucose 112 H (65-110) mg/dL Calcium 9.7 (8.4-10.2) mg/dL Total Bilirubin 1.5 H (0.2-1.3) mg/dL AST 28 (14-36) U/L ALT 18 (6-35) U/L Alkaline Phosphatase 110 (38-126) U/L NT-Pro-B Natriuret Pep 160 H (19.9-100) pg/mL Total Protein 8.0 (6.3-8.2) g/dL Albumin 4.6 (3.5-5.1) g/dL Urine Color Yellow (Yellow) Urine Appearance Clear (Clear) Urine pH 6.5 (5.0-9.0) Ur Specific [place] 1.008 (1.001-1.035) Urine Protein Negative (Negative) mg/dL Urine Glucose (UA) Trace H (Negative) mg/dL Urine Ketones Negative (Negative) mg/dL Ur Blood (Man) Negative (Negative) Urine Nitrate Negative (Negative) Urine Bilirubin Negative (Negative) Urine Urobilinogen 0.2 (<2.0) mg/dL Leukocyte Esterase Rfl Negative (Negative) MAILE/UL Imaging Data Radiologist's impression: ITS Impressions Chest X-Ray 03/16/25 14:26 IMPRESSION: No acute cardiopulmonary pathology. ECG Data EKG #1: ECG completion time: 12:52 EKG Interpretation: normal rate (76), sinus rhythm, no ST changes and NL axis Discharge Plan Discharge Clinical Impression: Weakness, Anxiety CKD (chronic kidney disease) Qualifiers: Chronic kidney disease stage: unspecified stage Qualified Code(s): N18.9 - Chronic kidney disease, unspecified Patient Disposition: Home Condition: Stable Instructions: Weakness (ED), Anxiety (ED) Additional Instructions: continue home medications Patient Language: Burkinan Prescriptions: No Action Mounjaro 2.5 mg/0.5 mL pen injector subcut Trelegy Ellipta 200-62.5-25 mcg blister with device 1 inh inhalation DAILY torsemide 20 mg tablet 40 mg PO BID potassium chloride 10 mEq tablet extended release 100 meq PO DAILY albuterol sulfate 90 mcg/actuation HFA aerosol inhaler 2 puff inhalation QID PRN (Reason: shortness of breath or wheezing) Qty: 8.5 0RF metoprolol succinate 50 mg tablet extended release 24 hr 50 mg PO DAILY escitalopram oxalate 20 mg tablet 20 mg PO DAILY atorvastatin 10 mg tablet 10 mg PO DAILY Follow-up/Referrals: Heri,DO Sami [Primary Care Provider] - Time of Disposition: 15:49
== END 2025-03-16 16:05 | disposition home or self-care (01) ==
PROVIDERS: Emergency Provider Family Medicine; PCP Student in an Organized Health Care Education/Training Program
DX: R53.1 Weakness (principal); F41.9 Anxiety disorder, unspecified; I13.0 Hypertensive heart and chronic kidney disease with heart failure and stage 1 through stage 4 chronic kidney disease, or unspecified chronic kidney disease; N18.9 Chronic kidney disease, unspecified; I50.9 Heart failure, unspecified; J45.909 Unspecified asthma, uncomplicated; E78.5 Hyperlipidemia, unspecified; M19.90 Unspecified osteoarthritis, unspecified site; Z96.659 Presence of unspecified artificial knee joint; Z87.891 Personal history of nicotine dependence; Z90.710 Acquired absence of both cervix and uterus
CPT/HCPCS: 36415; 71046; 80053; 81003; 83880; 85025; 93005; 96361; 96374; 99284; J2060; J7030